=== PATIENT | male | born 1945 | race Caucasian/White ===

== ENCOUNTER 2017-12-02 13:56 | Emergency (ER) | payer OTHER, SELFPAY ==
[2017-12-02 13:57] VITALS: BP 193/102; PULSE 85; RESP 14; TEMP 36.9; O2SAT 98; BMI 21.7
--- NOTE | 2017-12-02 14:23 | ED.DCSUM_ITS ---
- ER Visit Summary Date of Service: 12/02/17 Chief Complaint: [] Lumbar back pain shooting into left leg history of recent spinal surgery September 2017 History of Present Illness: The patient is a 72 [address] lumbar back pain with left lower extremity sciatica for some time, had recent lumbar back surgery as above he states he improved with the pain did not go away completely as a result he has had multiple lumbar spine injections by pain management he has been on Percocet in the past. Indicates his back pain flared up again on Sunday with radiation typical of what he had in the past to the left lower leg he is having no bowel bladder complaints or symptoms to the right leg he is able to walk but has discomfort. 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 chest unremarkable abdomen soft nontender he has lumbar spine incisions intact he has pain to the left paralumbar back that goes down the sciatic area into his left lower leg he has full range of motion to the left lower leg normal dorsi and plantarflexion normal flexion extension of the great toe normal sensation in his right lower extremities unremarkable there is no signs of cauda equina, he denies bowel bladder complaints or difficulties he is otherwise feeling baseline with good health except for the pain as above Test Results: [] Emergency Department Course and Treatment: [] A long conversation with him he is currently under the care of his surgeon and pain management he is scheduled for additional tests including MRI tomorrow and follow up with these physicians he simply wants something to control his pain. He wants to go home families in room with him, he is treated with Toradol IM morphine IM Zofran orally, we will refill the Percocet No. 8 tablets for short course until he can see his pain management physicians he will return for change in symptoms he again agrees with this plan Treatment Plan: [] Disposition: [] Home stable Impression: [] Acute recurrent sciatica type radicular pain to the left lower extremity, status post lumbar back surgery This note was generated with Dragon dictation software. It may contain incorrect words, spelling, and punctuation that were not noted in review of the chart prior to signing ED Disposition - Plan for ED Patient: Chief Complaint: Back Referrals: Olena Gabriel, MICHELLE-C [Primary Care Provider] -
--- NOTE | 2017-12-02 14:25 | DCINST.ED_ITS ---
ED Disposition - Plan for ED Patient: Chief Complaint: Back Instructions: ED Sprain Strain Lumbar Prescriptions: Oxycodone HCl/Acetaminophen [Percocet 5/325] 1 tab PO Q6H PRN PRN #12 tab PRN Reason: Pain Referrals: Olena Gabriel, INTERNAL CONTROLS SPECIALIST-C [Primary Care Provider] -
[2017-12-02] MEDS: Ketorolac 60 MG/2 ML Vial IM (14:30)
[2017-12-02] MEDS: Ondansetron ODT 4 MG Tablet PO (14:30)
[2017-12-02] MEDS: morphine 10 MG/ML Syringe 8 MG IM (14:30)
[2017-12-02 15:23] VITALS: BP 152/85; PULSE 77; RESP 17; O2SAT 99
== END 2017-12-02 15:24 | disposition home or self-care (01) ==
PROVIDERS: Emergency Provider Emergency Medicine; Family Provider Nurse Practitioner; PCP Nurse Practitioner
DX: M54.42 Lumbago with sciatica, left side (principal); I10 Essential (primary) hypertension; Z79.899 Other long term (current) drug therapy
CPT/HCPCS: 96372; 99282

== ENCOUNTER → 2017-12-03 10:50 | Outpatient (CLI) | payer OTHER, SELFPAY ==
--- NOTE | 2017-12-03 11:55 | MRI_ITS ---
STUDY: MRI LUMBAR SPINE WITHOUT CONTRAST REASON FOR EXAM: Male, 72 years old. BACK PAIN, left leg pain, hx prev surgery 09/14/17. TECHNIQUE: Standardized fat and water weighted pulse sequences were obtained in the sagittal and axial planes. COMPARISON: None FINDINGS: T12-L1: Normal endplates. Normal disc height, hydration and morphology. Normal bilateral facet joints. Normal central canal and bilateral lateral recesses. Normal bilateral intervertebral neural foramina. Normal lumbar lordosis. There is no substantial scoliosis. Normal conus medullaris that terminates at the L1 L1-2: There is minimal disc space narrowing and endplate spondylosis. There is no significant disc herniation, spinal canal or foramina stenosis. L2-3: There is minimal disc space narrowing and endplate spondylosis. There is no significant disc herniation, spinal canal or foramina stenosis. There is mild facet arthropathy L3-4: There is minimal disc space narrowing and endplate spondylosis. There is no significant disc herniation, spinal canal or foramina stenosis. L4-5: There is minimal disc space narrowing and intestinalis. There is a mild disc bulge with posterior annular fissure without significant central canal or foraminal stenosis. L5-S1: There is mild disc space narrowing and end plate spondylosis. There is left paracentral extrusion which measures approximately 1.0 x 0.5 x 1.4 cm with severe left lateral recess narrowing and posterior displacement of the traversing S1 nerve root. There is no significant central canal stenosis. There is minimal bilateral foraminal stenosis. There is minimal facet arthropathy. Normal visualized sacral ala. Normal visualized paraspinous soft tissue structures. MRI/Spine Lumbar (Routine) IMPRESSION: L5/S1: Left disc extrusion with severe left lateral recess narrowing and potential impingement of the left S1 nerve root. Electronically Signed: Gustavo Zarate MD at 12:35 EDT Tel , Service support ,
== END ==
PROVIDERS: Family Provider Nurse Practitioner; PCP Nurse Practitioner; Visit Provider Anesthesiology Pain Medicine
DX: M54.9 Dorsalgia, unspecified (principal); M79.606 Pain in leg, unspecified
CPT/HCPCS: 72148

== ENCOUNTER → 2018-10-04 21:43 | Outpatient (CLI) | payer OTHER, SELFPAY ==
[2018-10-04 16:53] VITALS: BMI 23.5
[2018-10-04 21:57] LABS: Basophil# 0.04 X10^3/uL; Basophil% 0.5 % (0-1); Eosinophil# 0.33 X10^3/uL; Eosinophils% 4.2 % (0-5); Hematocrit 41.5 % (40-54); Hemoglobin 13.7 g/dl (13.0-16.5); Lymphocyte % 24.2 % (19-41); Mean Corpuscular Hgb 29.7 pg (27.0-32.0); Mean Platelet Vol. 10.4 fl (6.2-12.0); Monocyte% 7.6 % (0-10); Neutrophil # 4.96 X10^3/uL (2.7-7.7); Neutrophil % 63.2 % (47-70); Platelet Count 244 K/mm3 (150-450); RBC Distribution Width CV 14.7 % (11.6-14.6); RBC Distribution Width SD 48.1 fl (35.1-43.9); Red Blood Count 4.61 M/mm3 (4.6-6.2); White Blood Count 7.9 K/mm3 (4.4-11.0)
[2018-10-04 22:02] LABS: POSITIVE COUNT NO; POSITIVE DIFFERENTIAL NO; POSITIVE MORPHOLOGY NO
[2018-10-04 22:10] LABS: AST(SGOT) 15 U/L (15-37); Alanine Aminotransfer ALT/SGPT 18 U/L (16-61); Albumin, Serum 4.1 g/dL (3.2-5.0); Alkaline Phosphatase 126 U/L (45-117); Anion Gap 9 (5-15); BUN 32 mg/dL (7-18); BUN/Creat Ratio 16.5 RATIO (10-20); Calcium,Total 9.5 mg/dL (8.5-10.1); Chloride 103 mmol/L (98-107); Cholesterol 240 mg/dL (200); Creatinine, Serum 1.94 mg/dL (0.70-1.30); EST Glomerular Filtration Rate 36 mL/min (>60); Est Glom Filt Rate - Afr Amer 44 mL/min (>60); Globulin 4.1 g/dL (2.2-4.2); Glucose 108 mg/dL (74-106); High Density Lipoprotein 54 mg/dL; Magnesium 2.1 mg/dL (1.6-2.6); PSA,Total - Annual Screen 5.45 ng/mL (0.00-4.00); Potassium 4.1 mmol/L (3.5-5.1); Protein, Total 8.2 g/dL (6.4-8.2); Sodium Level 138 mmol/L (136-145); Triglycerides 203 mg/dL; Very Low Density Lipoprotein 41 mg/dL (5-40)
== END ==
PROVIDERS: Family Provider Nurse Practitioner; PCP Nurse Practitioner; Referring Provider Nurse Practitioner; Visit Provider Nurse Practitioner
DX: I10 Essential (primary) hypertension (principal); R35.0 Frequency of micturition; F41.9 Anxiety disorder, unspecified
CPT/HCPCS: 80053; 80061; 83735; 84153; 85025; G0103

== ENCOUNTER → 2018-11-13 21:56 | Outpatient (CLI) | payer OTHER, SELFPAY ==
[2018-10-30 15:26] VITALS: BMI 23.8
[2018-11-13 22:34] LABS: PSA,Total- Diagnostic 6.08 ng/mL (0.0-4.0)
== END ==
PROVIDERS: Family Provider Nurse Practitioner; PCP Nurse Practitioner; Referring Provider Nurse Practitioner; Visit Provider Nurse Practitioner
DX: I10 Essential (primary) hypertension (principal)
CPT/HCPCS: 84153

== ENCOUNTER → 2019-01-23 12:47 | Outpatient (CLI) | payer OTHER, SELFPAY ==
[2019-01-07 16:10] VITALS: BMI 23.8
--- NOTE | 2019-01-23 12:50 | ART_ITS ---
Reason For Study: CLAUDICATION Procedure A bilateral lower extremity continuous wave Doppler with analog waveform analysis,segmental pressures,and ankle brachial indexes without exercise. CRITICAL FINDING CALLED TO DR SUAREZ AT 1:50 P.M. Left Segmental Pressures Left brachial= 149mmHg. Left thigh = 157mmHg. Left calf = 123mmHg. Left posterior tibial artery = 121mmHg. Left dorsalis pedis artery = 102mmHg. Left digit = 74 mmHg. The left dorsalis pedis waveforms are monophasic. The left posterior tibial artery waveforms are monophasic. Right Segmental Pressures Right brachial= 147mmHg. Right thigh = 111mmHg. Right calf = 83mmHg. Right posterior tibial artery = 60mmHg. Right dorsalis pedis artery = 60mmHg. The right dorsalis pedis waveforms are monophasic. The right posterior tibial artery waveforms are monophasic. Indices The right ankle brachial index by the dorsalis pedis is .4. The right ankle brachial index by the posterior tibial artery is .4. Rt DPI unobtainable. The left ankle brachial index by the dorsalis pedis is .68. The left ankle brachial index by the posterior tibial artery is .81. The left digital- brachial index is .5. Interpretation Summary Monophasic Doppler waveforms are noted at ankle level bilaterally. Pulse-volume recording waveform amplitudes are markedly diminished at digital level bilaterally. The resting right ankle-brachial index is severely diminished. The resting left ankle-brachial index is [id number] diminished. The right digital-brachial index could not be determined. The left digital-brachial index is moderately diminished. There is evidence of severe arterial occlusive disease in the right lower extremity. There is evidence of moderate arterial occlusive disease in the left lower extremity. The occlusive disease appears to be multi-segmental bilaterally. Ordering Physician: Yash Suarez Referring Physician: GAIL LANE Performed By: Anali Messina, RDCS, RVT
== END ==
PROVIDERS: Family Provider Nurse Practitioner; PCP Nurse Practitioner; Referring Provider Podiatrist Foot & Ankle Surgery; Visit Provider Podiatrist Foot & Ankle Surgery
DX: I73.9 Peripheral vascular disease, unspecified (principal)
CPT/HCPCS: 93923

== ENCOUNTER → 2019-02-13 08:50 | Outpatient (CLI) | payer OTHER, SELFPAY ==
[2019-01-07 16:10] VITALS: BMI 23.8
--- NOTE | 2019-02-13 08:52 | ADUL_ITS ---
Reason For Study: Atherosclerosis Right Velocities Ext. Iliac Artery, dist = 112.5 cm./sec. Common Femoral Artery, mid = 81.8 cm./sec. Supf Femoral Artery, prox = 45.9 cm./sec. Supf Femoral Artery, mid = 361.4 cm./sec. No flow SFA dist. Profunda Femoral Artery = 270.2 cm./sec. Popliteal Artery, prox. = 24.5 cm./sec. Popliteal Artery, mid = 19.4 cm./sec. Popliteal Artery, dist = 18.9 cm./sec. Post. Tibial Artery, prox = 87.5 cm./sec. Post. Tibial Artery, mid = 26 cm./sec. Post. Tibial Artery, dist = 26.5 cm./sec. Peroneal Artery, prox = 13.1 cm./sec. Peroneal Artery, mid = 16.3 cm./sec. Peroneal Artery,dist = 9.6 cm./sec. Ant. Tibial Artery, prox = 28.5 cm./sec. Ant. Tibial Artery, mid = 25 cm./sec. Ant. Tibial Artery, dist = 10.9 cm./sec. Procedure Exam performed in department. Interpretation Summary 1. Right SFA occludded distally with triphasic flow above and monophasic from popliteal down. Ordering Physician: Ethan Covington Referring Physician: Olena Gabriel Performed By: Yazmin Gustafson RVT
--- NOTE | 2019-02-13 08:53 | CDU_ITS ---
Reason For Study: Bruit Rt. Velocities/BP Lt. Velocities/BP Prox CCA 83.9/17.3 cm/sec. Prox CCA 84.9/14.6 cm/sec. Mid CCA 66.2/16.8 cm/sec. Mid CCA 76.1/20.1 cm/sec. Dist CCA 80.5/19 cm/sec. Dist CCA 61.9/14.6 cm/sec. Prox ICA 72.9/25.6 cm/sec. Prox ICA 67.3/17.9 cm/sec. Mid ICA 98.6/32.3 cm/sec. Mid ICA 104.8/29.8 cm/sec. Dist ICA 117.4/38.9 cm/sec. Dist ICA 103.5/33.5 cm/sec. Rt. ICA/CCA = 1.5. Lt. ICA/CCA = 1.4. Prox ECA 124.8/6 cm/sec. Prox ECA 97.4/7.7 cm/sec. Rt. Vert. 36.2/12.6 cm/sec. Lt Vert. Prox 363.2/99.9 cm/sec. Lt Vert. Mid 52.6/18.6 cm/sec. Right Extracranial There is homogeneous, smooth atherosclerotic plaque noted in the right common carotid artery. There is heterogeneous, irregular atherosclerotic plaque noted in the right internal carotid artery. There is intimal thickening but no significant atherosclerotic plaque noted in the right external carotid artery. Antegrade flow is noted in the right vertebral artery. Left Extracranial There is homogeneous, smooth atherosclerotic plaque noted in the left common carotid artery. There is heterogeneous, smooth atherosclerotic plaque noted in the left internal carotid artery. There is intimal thickening but no significant atherosclerotic plaque noted in the left external carotid artery. Antegrade flow is noted in the left vertebral artery. Procedure Carotid Duplex 00061. Exam performed in department. Interpretation Summary Mild (<50%) stenosis right extracranial internal carotid. Mild (<50%) stenosis left extracranial internal carotid. Flow within the vertebral arteries is antegrade bilaterally. Left vertebral with proximal stenosis. Ordering Physician: Ethan Covington Referring Physician: Olena Gabriel Performed By: Yazmin Gustafson RVT
--- NOTE | 2019-02-13 08:53 | AAVD_ITS ---
Reason For Study: Aortic Atherosclerosis Aorta Measurements Aorta Doppler Measurements Proximal aorta measures1.28 x 1.30cm. in cross- Peak systolic flow velocities within the proximal sectional axis. aorta measure 60.1 cm/sec. Proximal aorta measures1.29cm. in longitudinal Peak systolic flow velocities within the mid aorta axis. measure 70.5 cm/sec. Mid aorta measures1.37 x 1.36cm. in cross- Peak systolic flow velocities within the distal sectional axis. aorta measure 49.7 cm/sec. Mid aorta measures1.36cm. in longitudinal axis. Distal aorta measures1.16 x 1.16cm. in cross- sectional axis. Distal aorta measures1.18cm. in longitudinal axis. Left Iliac Artery Left iliac artery measures 0.93 x 0.93 cm. in the cross-sectional axis. Left iliac artery measures 0.78 cm. in the longitudinal axis. Peak systolic velocity in the left iliac artery measures 122.1 cm/sec. Right Iliac Artery Right iliac artery measures 0.63 x 0.70 cm. in the cross-sectional axis. Right iliac artery measures 0.68 cm. in the longitudinal axis. Peak systolic velocity in the right iliac artery measures 70.8 cm/sec. Procedure Aorta IVC Iliac vasculature or bypass grafts 77690. Exam performed in department. Interpretation Summary 1. No aortoiliac stenosis or aneurysm. Aorta between 12-13mm. Ordering Physician: Ethan Covington Referring Physician: Olena Gabriel Performed By: Yazmin Gustafson RVT
== END ==
PROVIDERS: Family Provider Nurse Practitioner; PCP Nurse Practitioner; Referring Provider Surgery Vascular Surgery; Visit Provider Surgery Vascular Surgery
DX: I70.213 Atherosclerosis of native arteries of extremities with intermittent claudication, bilateral legs (principal); I70.0 Atherosclerosis of aorta; R09.89 Other specified symptoms and signs involving the circulatory and respiratory systems
CPT/HCPCS: 93880; 93926; 93978

== ENCOUNTER 2020-07-16 21:01 | Emergency (ER) | payer MEDICARE, BC, SELFPAY ==
[2020-07-14 18:00] VITALS: BMI 26.1
[2020-07-16 21:02] VITALS: BP 214/101; PULSE 78; RESP 16; TEMP 37.1; O2SAT 97; BMI 25.5
--- NOTE | 2020-07-16 21:31 | ED.DCSUM_ITS ---
History of Present Illness Chief Complaint: GI Bleed Informant: Patient Onset: Days - 3 days Context: Gradual Onset Current Severity: Mild Maximum Severity: Mild Narrative: Patient presents with 3 days of dark black tarry stool. He denies any abdominal pain. He was working on his truck today and states when he stood up he did feel lightheaded and dizzy for a brief time. Patient states he has had 1 prior colonoscopy in the 1960s. No family history of colon cancer or similar. Patient does not take anticoagulants. - Past Medical History (1) Anxiety Status: Chronic (2) CKD (chronic kidney disease) Status: Chronic (3) Diabetes Status: Chronic (4) Hypertension Status: Chronic Past Medical History - Allergies and Home Meds Allergies/Adverse Reactions: Allergies lisinopril Allergy (Severe, Verified 07/16/20 21:10) raspy voice and cough Penicillins Allergy (Verified 07/16/20 21:10) Anaphylaxis Sulfa (Sulfonamide Antibiotics) Allergy (Verified 07/16/20 21:10) Anaphylaxis levofloxacin [From Levaquin] Adverse Reaction (Verified 07/16/20 21:10) Upset Stomach Primary Care Physician: Olena Gabriel NP, CERTIFIED WELLNESS PROGRAM COORDINATOR-C [Primary Care Provider] - Prior records reviewed: Yes Surgical History: cholecystectomy, herniorrhaphy Lives: Spouse/ Significant Other Smoking Status: Former smoker - Family History Maternal Family History: Family History (Last Reviewed 07/14/20 @ 18:53 by Olena Gabriel NP, CERTIFIED WELLNESS PROGRAM COORDINATOR-C) Other CVA (cerebral vascular accident) Diabetes Heart disease High cholesterol Hypertension Family History: Reports: Diabetes Review of Systems General: Denies: Chills, Fever Eyes: Denies: Visual changes - bilaterally ENT: Denies: Bilateral ear pain Cardiovascular: Denies: Chest pain Respiratory: Denies: Dyspnea, Cough Gastrointestinal: Denies: Abdominal pain, Nausea, Vomiting Genitourinary: Denies: Dysuria Musculoskeletal: Denies: Extremity Pain Skin: Denies: Rash Hematologic: Denies: Easy bruising, Easy bleeding Allergy: Denies: Uticaria Physical Exam Vital Signs/Narrative: Vital Signs Temp Pulse Resp BP Pulse Ox 07/16/20 21:02 98.8 F 78 16 214/101 H 97 Inital Vital Signs reviewed: Yes General: Well nourished, Well developed Head: Normocephalic ENT: Moist mucous membranes Neck: Supple Cardiovascular: Regular rate, Regular rhythm Respiratory: No distress, CTA bilaterally Abdomen: Soft, Nontender Rectal: Nontender, - - Playground stool noted on gloved finger Extremities: Nontender Skin: Normal color Neurological: Alert, Oriented x3 Psychological: Normal affect Diagnostic/Tx/Re-eval 07/16/20 21:30 Stool Stool Occult Blood (JASMINA) - Final Laboratory Results 07/16/20 07/16/20 07/16/20 21:10 21:10 21:10 WBC 8.6 RBC 4.43 L Hgb 13.2 Hct 40.5 MCV 91.4 MCH 29.8 MCHC 32.6 RDW Std Deviation 47.5 H RDW Coeff of Keith 14.1 Plt Count 223 MPV 10.6 Immature Gran % (Auto) 0.200 Neut % (Auto) 67.7 Lymph % (Auto) 20.4 Meigs % (Auto) 7.9 Eos % (Auto) 3.2 Baso % (Auto) 0.6 Absolute Neuts (auto) 5.8 Absolute Lymphs (auto) 1.75 Nucleated RBC % 0 PT 12.3 INR 1.0 APTT 28.9 Sodium 139 Potassium 5.0 Chloride 107 Carbon Dioxide 24.0 Anion Gap 8 BUN 40 H Creatinine 2.49 H Estim Creat Clear Calc 27.28 Est GFR (MDRD) Af Amer 33 L Est GFR (MDRD) Non-Af 27 L BUN/Creatinine Ratio 16.1 Glucose 130 H Calcium 9.1 Total Bilirubin 0.40 Direct Bilirubin 0.06 AST 18 ALT 18 Alkaline Phosphatase 116 Total Protein 7.9 Albumin 3.8 Globulin 4.1 - Medical Decision Making Blood work is reviewed and unremarkable. Last labs to compare to are from October 2018. Renal function is slightly worsened. Hemoglobin is stable. Stool guaiac tonight returns negative. On repeat evaluation patient is resting comfortably. Test results are discussed with him. He now tells me that he was taking Pepto-Bismol and I advised him that this may be why his stools are appearing black in color. He will take Prilosec [id number] and monitor his symptoms. I did give him return instructions to come back to the ER for. He will follow-up with his family physician and I did recommend following with surgery for an outpatient colonoscopy as he has not had one in quite some time. ED Disposition - Plan for ED Patient: Disposition: Home or Assisted Living Diagnosis: Discoloration of stool Instructions: ED Upper GI Bleeding (Stable) Referrals: Olena Gabriel CERTIFIED WELLNESS PROGRAM COORDINATOR, CERTIFIED WELLNESS PROGRAM COORDINATOR-C [Primary Care Provider] - 1 Week Additional Instructions: As discussed, your blood work is stable when compared to labs of 2019. Test under stool is negative for blood. The Pepto-Bismol you been taking may be the cause of the dark discoloration of your stool. I do recommend taking Prilosec and monitoring her symptoms. I do recommend following up with your family physician for a referral for colonoscopy as well. Please return to ER for further symptoms or any concerns.
--- NOTE | 2020-07-16 21:31 | EKG12_ITS ---
Test Reason : IRREG. HR Blood Pressure : / mmHG Vent. Rate : 071 BPM Atrial Rate : 071 BPM P-R Int : 122 ms QRS Dur : 094 ms QT Int : 398 ms P-R-T Axes : -28 051 068 degrees QTc Int : 432 ms Normal sinus rhythm with sinus arrhythmia Normal ECG Confirmed by MERE IRBY, CINDI ([id number]), editor at large YAMIL HOFFMANN ([id number]) on 07/21/2020 9:23:37 AM Referred By: DUONG Confirmed By:CINDI SEVERINO MD
[2020-07-16 22:02] LABS: Absolute Lymphocyte Count 1.75 X10^3/uL (0.83-4.51); Absolute Neutrophil Count 5.8 X10^3/uL (2.0-7.7); Basophil# 0.05 X10^3/uL; Basophil% 0.6 % (0-1); Eosinophil# 0.27 X10^3/uL; Eosinophils% 3.2 % (0-5); Hematocrit 40.5 % (40-54); Hemoglobin 13.2 g/dL (13.0-16.5); Lymphocyte # 1.75 X10^3/ul (4.0); Lymphocyte % 20.4 % (19-41); Mean Corp Hgb Conc 32.6 g/dL (32-36); Mean Corpuscular Hgb 29.8 pg (27.0-32.0); Mean Corpuscular Volume 91.4 fL (80-94); Mean Platelet Vol. 10.6 fl (6.2-12.0); Monocyte# 0.68 X10^3/uL; Monocyte% 7.9 % (0-10); NRBC Flagged by Analyzer 0 % (0-5); Neutrophil % 67.7 % (47-70); Platelet Count 223 K/mm3 (150-450); RBC Distribution Width CV 14.1 % (11.6-14.6); RBC Distribution Width SD 47.5 fl (35.1-43.9); Red Blood Count 4.43 M/mm3 (4.6-6.2); White Blood Count 8.6 K/mm3 (4.4-11.0)
[2020-07-16 22:17] VITALS: BP 150/78; PULSE 68; RESP 13; O2SAT 98
[2020-07-16 22:19] LABS: AST(SGOT) 18 U/L (15-37); Alanine Aminotransfer ALT/SGPT 18 U/L (16-61); Albumin, Serum 3.8 g/dL (3.2-5.0); Alkaline Phosphatase 116 U/L (45-117); Anion Gap 8 (5-15); BUN 40 mg/dL (7-18); BUN/Creat Ratio 16.1 RATIO (10-20); Bilirubin, Direct 0.06 mg/dL (0.00-0.30); Calcium,Total 9.1 mg/dL (8.5-10.1); Chloride 107 mmol/L (98-107); Creatinine, Serum 2.49 mg/dL (0.70-1.30); EST Glomerular Filtration Rate 27 mL/min (>60); Est Glom Filt Rate - Afr Amer 33 mL/min (>60); Estimated Creatinine Clearance 27.28 ml/min; Globulin 4.1 g/dL (2.2-4.2); Glucose 130 mg/dL (74-106); Protein, Total 7.9 g/dL (6.4-8.2); Sodium Level 139 mmol/L (136-145)
[2020-07-16 22:22] LABS: Partial Thromboplast Time 28.9 Seconds (24.1-36.2); Prothrombin Time (Protime)PT. 12.3 SECONDS (11.7-14.9)
[2020-07-16 23:29] VITALS: BP 146/79; PULSE 62; RESP 16; O2SAT 96
== END 2020-07-16 23:50 | disposition home or self-care (01) ==
PROVIDERS: Emergency Provider Emergency Medicine; PCP Nurse Practitioner
DX: R19.5 Other fecal abnormalities (principal); I12.9 Hypertensive chronic kidney disease with stage 1 through stage 4 chronic kidney disease, or unspecified chronic kidney disease; E11.22 Type 2 diabetes mellitus with diabetic chronic kidney disease; N18.9 Chronic kidney disease, unspecified; F41.9 Anxiety disorder, unspecified; Z79.84 Long term (current) use of oral hypoglycemic drugs; Z79.899 Other long term (current) drug therapy; Z87.891 Personal history of nicotine dependence
CPT/HCPCS: 80048; 80076; 82274; 85025; 85610; 85730; 93005; 99285; A4216

== ENCOUNTER → 2020-07-20 | Outpatient (CLI) | payer MEDICARE, BC, SELFPAY ==
[2020-07-20 15:05] VITALS: BMI 25.8
[2020-07-20 22:13] LABS: AST(SGOT) 11 U/L (15-37); Absolute Lymphocyte Count 1.38 X10^3/uL (0.83-4.51); Absolute Neutrophil Count 4.3 X10^3/uL (2.0-7.7); Alanine Aminotransfer ALT/SGPT 17 U/L (16-61); Albumin, Serum 3.8 g/dL (3.2-5.0); Alkaline Phosphatase 118 U/L (45-117); Anion Gap 6 (5-15); BUN 35 mg/dL (7-18); BUN/Creat Ratio 14.1 RATIO (10-20); Basophil# 0.07 X10^3/uL; Calcium,Total 9.3 mg/dL (8.5-10.1); Chloride 106 mmol/L (98-107); Creatinine, Serum 2.49 mg/dL (0.70-1.30); EST Glomerular Filtration Rate 27 mL/min (>60); Eosinophil# 0.18 X10^3/uL; Eosinophils% 2.7 % (0-5); Est Glom Filt Rate - Afr Amer 33 mL/min (>60); Glucose 131 mg/dL (74-106); Hematocrit 40.6 % (40-54); Hemoglobin 12.9 g/dL (13.0-16.5); Lymphocyte # 1.38 X10^3/ul (4.0); Lymphocyte % 20.7 % (19-41); Mean Corp Hgb Conc 31.8 g/dL (32-36); Mean Corpuscular Hgb 29.6 pg (27.0-32.0); Mean Corpuscular Volume 93.1 fL (80-94); Mean Platelet Vol. 10.7 fl (6.2-12.0); Monocyte# 0.71 X10^3/uL; Monocyte% 10.6 % (0-10); NRBC Flagged by Analyzer 0 % (0-5); Neutrophil # 4.33 X10^3/uL (2.7-7.7); Neutrophil % 64.9 % (47-70); PSA,Total- Diagnostic 6.69 ng/mL (0.0-4.0); Platelet Count 240 K/mm3 (150-450); Potassium 4.6 mmol/L (3.5-5.1); Protein, Total 7.8 g/dL (6.4-8.2); RBC Distribution Width CV 14.1 % (11.6-14.6); RBC Distribution Width SD 48.3 fl (35.1-43.9); Red Blood Count 4.36 M/mm3 (4.6-6.2); Sodium Level 140 mmol/L (136-145); White Blood Count 6.7 K/mm3 (4.4-11.0)
[2020-07-20 22:39] LABS: Hemoglobin A1c 6.7 % (3.8-5.6)
== END | disposition home or self-care (01) ==
PROVIDERS: PCP Nurse Practitioner; Visit Provider Nurse Practitioner
DX: I10 Essential (primary) hypertension (principal); E11.9 Type 2 diabetes mellitus without complications; R97.20 Elevated prostate specific antigen [PSA]
CPT/HCPCS: 80053; 83036; 84153; 85025

== ENCOUNTER 2020-08-13 08:03 | Day surgery (SDC) | payer MEDICARE, BC, SELFPAY ==
[2020-07-20 15:05] VITALS: BMI 25.8
[2020-08-13] VITALS (7 sets, daily range): BP systolic 94–152; BP diastolic 47–81; PULSE 56–78; RESP 14–16; TEMP 36–36.2; O2SAT 95–97; BMI 24.3
[2020-08-13] MEDS: Lactated Ringers 1,000 ML 100 ML IV (09:00)
--- NOTE | 2020-08-13 09:00 | HP.PCM_ITS ---
Problem List (1) Black tarry stools Status: Acute Comment: was told it was due to taking pepto History and Physical Date of Admission: 08/13/20 Intake Intake Visit Reasons: Telephone/C-SCOPE Chief Complaint: cscope consult Rfid Technician Required: No Is patient in pain?: No Allergies lisinopril Allergy (Severe, Verified 07/27/20 14:02) raspy voice and cough Penicillins Allergy (Verified 07/27/20 14:02) Anaphylaxis Sulfa (Sulfonamide Antibiotics) Allergy (Verified 07/27/20 14:02) Anaphylaxis levofloxacin [From Levaquin] Adverse Reaction (Verified 07/27/20 14:02) Upset Stomach Medications amlodipine 5 mg tablet 5 mg PO DAILY #90 tab 08/19/19 [Rx Confirmed 07/27/20] escitalopram oxalate 10 mg tablet 10 mg PO DAILY #90 tab 08/19/19 [Rx Confirmed 07/27/20] irbesartan 300 mg tablet 300 mg PO DAILY #90 tab 08/19/19 [Rx Confirmed 07/27/20] tamsulosin 0.4 mg capsule 0.4 mg PO DAILY #90 cap 08/19/19 [Rx Confirmed 07/27/20] gabapentin 100 mg capsule 200 mg PO .qid PRN 30 Days #240 cap 02/05/20 [Rx Confirmed 07/27/20] meclizine 12.5 mg tablet 12.5 mg PO TID PRN #30 tab 07/14/20 [Rx Confirmed 07/27/20] empagliflozin 25 mg tablet 25 mg PO DAILY 07/27/20 [History Confirmed 07/27/20] PFSH Medical History (Updated 07/27/20 @ 14:26 by Sue Tovar) Depression (Acute) Black tarry stools (Acute) Diarrhea (Acute) Abdominal pain (Acute) 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) Fatigue (Acute) Diabetes type 2, uncontrolled (Acute) Osteoarthritis (Acute) Kidney stones (Acute) Macular degeneration (Acute) Anxiety disorder (Acute) Pseudobulbar affect (Acute) L eye torn retina (Acute) Hypertension (Chronic) Mini stroke (Inactive) Surgical History (Updated 07/27/20 @ 14:24 by Sue Tovar) Hx laparoscopic cholecystectomy (Acute) Previous back surgery (Acute) Family History (Updated 12/22/20 @ 14:28 by Sue Tovar) Mother Diabetes Heart disease Hypertension CVA (cerebral vascular accident) Sister CVA (cerebral vascular accident) Heart disease Other High cholesterol Social History (Updated 07/27/20 @ 14:[address] Neo Vallejo MD) Smoking Status: Former smoker HPI HPI Chief Complaint: cscope consult Details: Patient was informed that this visit will be billed to patient. This visit was conducted during COVID- pandemic. JOSE JOHN, is a 75 M who was contacted for phone visit for black stools and abdominal pain. The patient reports that he has been having black tarry stools for a few weeks. He went to the emergency room they told him it was likely due to his Pepto-Bismol intake. The patient is also been having right upper quadrant pain especially with eating. The patient reports he is not had a screening colonoscopy in over 10 years. The patient does not have any blood in his stool except for the black tarry stools. ROS Const Constitutional: Positive for fatigue and weight change; no headache(s) or snoring Eyes Eyes: Positive for other (macular ) ENT ENT: Positive for difficulty swallowing; no abnormal hearing, ear pain, ear discharge, ear pressure, hearing loss, tinnitus, dizziness/vertigo, balance problems, nosebleed/epistaxis, nasal congestion, nasal obstruction, nose pain, sinus pressure, sinus pain, nasal discharge, post nasal drip, headache(s), facial pain, dental pain, dry mouth, bad breath, hoarseness, lip swelling, mouth lesions, mouth pain, neck pain, sore throat, tongue swelling, throat swelling or other Resp Respiratory: No cough, change in phlegm color, chest congestion, excessive phlegm production, hemoptysis, pain on inspiration, shortness of breath, pain with cough, snoring, stridor, wheezing or other Gastro GI: Positive for abdominal pain, diarrhea, difficulty swallowing and Black,tarry stools; no belching, bloating, change in bowel habits, change in stool character, coffee ground emesis, constipation, cramping, heartburn, feeling full early, excessive flatus, incontinent of stools, Vomiting blood/hematemesis, blood in stool, loose stools, nausea/dyspepsia, pain with swallowing, vomiting or other Musc Musculoskeletal: Positive for numbness and tingling; no abnormal walking, joint pain, back pain, deformity, joint swelling, limited range of motion, loss of height, muscle cramps, muscle weakness, decreased muscle mass, body aches, neck pain, radiating pain into limb, stiffness or other Neuro Neurology: Positive for numbness and tingling; no abnormal walking, abnormal hearing or headache(s) Psych Psychiatric: Positive for anxiety, Positive for depression Endo Endocrine: Positive for fatigue; no other Aller/Imm Allergy/Immunologic: No lip swelling, throat swelling, tongue swelling or wheezing Exam Const General: cooperative, comfortable Resp Effort & Inspection: normal respiratory effort Cardio Rate: regular rate Rhythm: regular rhythm GI Inspection: normal to inspection, non-distended Palpation: soft, nontender Musc Musculoskeletal: No muscle weakness Details: Details:: Exam was limited due to phone visit with no video. Quality Reporting Medication Reconciliation ([facility] 68) amlodipine 5 mg PO DAILY empagliflozin (Jardiance) 25 mg PO DAILY escitalopram oxalate (Lexapro) 10 mg PO DAILY gabapentin 200 mg (2 x 100 mg) PO .qid 30 days PRN irbesartan 300 mg PO DAILY meclizine 12.5 mg PO TID PRN tamsulosin 0.4 mg PO DAILY Tobacco Screening (CMS 138) Smoking Status: Former smoker Assessment & Plan Problems 1. Black tarry stools K92.1 was told it was due to taking pepto 2. RUQ pain R10.11 3. Screen for colon cancer Z12.11 Plan The patient has been having 2 to 3 weeks of black tarry stools. He says they have been improving since stopping Pepto-Bismol. He still having right upper quadrant pain especially with eating. The patient was also referred for screening colonoscopy. His last colonoscopy was over 10 years ago. I will plan on EGD and colonoscopy. . I explained endoscopy in detail to the patient. I explained the risks including but not limited to stroke or heart attack with anesthesia, perforation of the GI tract, bleeding, infection. I explained that any of these could necessitate further emergency surgery. The patient understands and all questions were answered sufficiently. The patient wishes to proceed with procedure. We discussed the current risks associated with COVID-19. While it is understood that there is a community spread of COVID-19, the risk of fabi COVID-19 while at [facility] ([facility]) is very low; however, the risk cannot be completely mitigated because of the community spread of the disease. We discussed in detail the risk of exposure to and/or potential harm posed by the COVID-19 virus with having a surgery/procedure at this time versus the risk of delaying the surgery/procedure. It is not possible to know either the risk of delaying the surgery or procedure or chance of getting an infection with perfect accuracy, but a joint decision was made to proceed at this time with the scheduled surgery/procedure as indicated on the consent form. Patient was notified that we will need to comply with any screening or testing [facility] wishes to perform or that surgery may be delayed for any positive results. Neo Vallejo MD Pager: [facility] [address] [place] [address] Office: I have re-examined the patient. There are no clinical changes since date of exam.
[2020-08-13 09:05] LABS: Bedside Glucose 289 mg/dL (70-110)
--- NOTE | 2020-08-13 09:15 | IMM_PTH ---
PATIENT: JOSE JOHN LOC: EN U#:[id number] AGE/SX: 75/M ROOM: RE08/13/[address]: Dr. Neo Vallejo MD : 1945 BED: DIS: 08/13/2020 SPEC #: [id number] RECD: 08/13/20 12:42 STATUS: JAVID REChi #: [id number] FAREED: 08/13/20 09:[address]: Neo Vallejo DEPT: IMMUNOHISTOCHEMISTRY RECD BY: Tiffanie Adrian ENTERED: 08/13/20 12:42 SP TYPE: IMMUNO OTHR DR: Olena Gabriel, CUSTOMER INSIGHT ANALYST-C Tissues: A - Stomach, NOS Procedures: H Pylori (initial) PHYSICIAN & INSTITUTION [place] [phone] SPECIMEN INFORMATION: Tissue Source: A - Gastric ulcer biopsy Clinical Info: Black, tarry stools; RUQ pain; screening Specimen Number: [id number] CPT code: 82971 METHODOLOGY: Deparaffinized sections of prefer/formalin-fixed tissue or PAP/DQ stained slides are incubated with monoclonal/polyclonal antibodies/oligonucleotide probes. Localization is made via biotin free immunoperoxidase method. Appropriate controls are performed and reacted as expected. Results on target cell population are indicated in the following table: RESULTS: ANTIBODY / CLONE RESULT Block A H Pylori (polyclonal) negative These tests were developed and their performance characteristics determined by [facility]. They may not have been cleared or approved by the U.S. Food and Drug Administration. The FDA has determined that such clearance or approval is not necessary. INTERPRETATION: A. Gastric ulcer, biopsy: Negative for Helicobacter pylori organisms. SJ:aydin 08/16/2020
--- NOTE | 2020-08-13 09:15 | EGD_PTH ---
PATIENT: JOSE JOHN LOC: EN U#:[id number] AGE/SX: 75/M ROOM: RE08/13/[address]: Dr. Neo Vallejo MD : 1945 BED: DIS: 08/13/2020 SPEC #: [id number] RECD: 08/13/20 11:34 STATUS: JAVID JAEL #: [id number] FAREED: 08/13/20 09:[address]: Neo Vallejo DEPT: SURGICAL PATHOLOGY RECD BY: Katherine Mohan ENTERED: 08/13/20 12:22 SP TYPE: EGD BIOPSY OT DR: Olena Gabriel, MICHELLE-C Tissues: A - Gastric mucous membrane B - Sigmoid colon biopsy Procedures: Surgery Specimen Level IV HEADER OPERATION: Colonoscopy, EGD ([facility] [place]) PRE-OP DIAGNOSIS: Black, tarry stools; RUQ pain; screening TISSUE SUBMITTED: A - Gastric ulcer biopsy for H. pylori and pathology, B - Sigmoid colon polyp biopsy MICROSCOPIC DIAGNOSIS A. Gastric ulcer, biopsy: Mild gastritis. Focal mild mucosal congestion and hemorrhage. See microscopic description and comment. B. Sigmoid colon polyp, biopsy: Fragments of colonic mucosa with focal minimal hyperplastic changes. SJ:aydin 08/16/2020 COMMENT A. The results of immunohistochemistry for Helicobacter pylori will be reported separately ([id number]). MICROSCOPIC DESCRIPTION Slides are reviewed. A. The specimen shows fragments of gastric mucosa with chronic inflammatory cell infiltrates in the lamina propria consisting of lymphocytes and plasma cells, consistent with mild chronic gastritis. Focal mild mucosal congestion and hemorrhage are also noted. GROSS DESCRIPTION A - Received in fixative is one container labeled with the patient's name and designated gastric ulcer biopsy. The specimen consists of two irregular fragments of light su soft tissue that in aggregate measure 0.5 x 0.5 x 0.1 cm. The specimen is totally submitted in one cassette. B - Received in fixative is one container labeled with the patient's name and designated sigmoid colon polyp. The specimen consists of two irregular fragments of light su soft tissue that in aggregate measure 0.3 x 0.3 x 0.1 cm. The specimen is totally submitted in one cassette. / AM:aydin 08/13/2020 TC:3 CPT: 59000 x2
--- NOTE | 2020-08-13 09:40 | OP.EGD_ITS ---
Patient Name: Luis Gaston Procedure Date: 08/13/2020 9:10 AM Date of : 1945 Age: 75 Procedure: Upper GI endoscopy Indications: Melena Providers: Neo Vallejo MD Referring MD: Olena Gabriel NP Medicines: Monitored Anesthesia Care Patient Profile: This is a 75 year old male. Refer to note in patient chart for documentation of history and physical. Complications: No immediate complications. Procedure: Pre-Anesthesia Assessment: - Prior to the procedure, a History and Physical was performed, and patient medications and allergies were reviewed. The patient's tolerance of previous anesthesia was also reviewed. The risks and benefits of the procedure and the sedation options and risks were discussed with the patient. All questions were answered, and informed consent was obtained. Prior Anticoagulants: The patient has taken no previous anticoagulant or antiplatelet agents. After reviewing the risks and benefits, the patient was deemed in satisfactory condition to undergo the procedure. After obtaining informed consent, the endoscope was passed under direct vision. Throughout the procedure, the patient's blood pressure, pulse, and oxygen saturations were monitored continuously. The Endoscope was introduced through the mouth, and advanced to the third part of duodenum. The upper GI endoscopy was accomplished without difficulty. The patient tolerated the procedure well. Scope In: 9:19:33 AM Scope Out: 9:21:55 AM Total Procedure Duration Time 0 hours 2 minutes 22 seconds Findings: One non-bleeding cratered gastric ulcer with adherent clot was found in the stomach. The lesion was 10 mm in largest dimension. Biopsies were taken with a cold forceps for Helicobacter pylori testing. The examined duodenum was normal. The esophagus was normal. Impression: - Non-bleeding gastric ulcer with adherent clot. Biopsied. - Normal examined duodenum. - Normal esophagus. Recommendation: - Discharge patient to home. - Resume previous diet. - Continue present medications. - Use Prilosec (omeprazole) 20 mg PO BID for 6 weeks. Procedure Code(s): --- Professional --- 30849, Esophagogastroduodenoscopy, flexible, transoral; with biopsy, single or multiple Diagnosis Code(s): --- Professional --- K25.4, Chronic or unspecified gastric ulcer with hemorrhage K92.1, Melena (includes Hematochezia) CPT copyright 2017 [employer]. All rights reserved. The codes documented in this report are preliminary and upon information coder review may be revised to meet current compliance requirements. Neo Vallejo MD 08/13/2020 9:40:34 AM This report has been signed electronically. Number of Addenda: 0 Note Initiated On: 08/13/2020 9:10 AM
--- NOTE | 2020-08-13 09:40 | OP.CCLET_ITS ---
08/13/2020 Olena Gabriel NP [facility] [address] [place] [id number] Re : Upper GI endoscopy procedure for Luis Gaston Dear Ms. Gabriel This procedure was performed on Thursday, August 13, 2020. My impressions and recommendations are as follows: Impressions : - Non-bleeding gastric ulcer with adherent clot. Biopsied. - Normal examined duodenum. - Normal esophagus. Recommendations : - Discharge patient to home. - Resume previous diet. - Continue present medications. - Use Prilosec (omeprazole) 20 mg PO BID for 6 weeks. My findings are described in the full procedure note, which is enclosed. If I can be of further assistance, please feel free to contact me at Doctor phone number(s): , Work: . Sincerely, Neo Vallejo MD 08/13/2020 9:40:34 AM This report has been signed electronically.
--- NOTE | 2020-08-13 09:44 | OP.COLON_ITS ---
Patient Name: Luis Gaston Procedure Date: 08/13/2020 9:22 AM Date of : 1945 Age: 75 Procedure: Colonoscopy Indications: Screening for colorectal malignant neoplasm Providers: Neo Vallejo MD Referring MD: Olena Gabriel NP Medicines: Monitored Anesthesia Care Patient Profile: This is a 75 year old male. Refer to note in patient chart for documentation of history and physical. Last Colonoscopy: more than 10 years ago. Complications: No immediate complications. Procedure: Pre-Anesthesia Assessment: - Prior to the procedure, a History and Physical was performed, and patient medications and allergies were reviewed. The patient's tolerance of previous anesthesia was also reviewed. The risks and benefits of the procedure and the sedation options and risks were discussed with the patient. All questions were answered, and informed consent was obtained. Prior Anticoagulants: The patient has taken no previous anticoagulant or antiplatelet agents. After reviewing the risks and benefits, the patient was deemed in satisfactory condition to undergo the procedure. After I obtained informed consent, the scope was passed under direct vision. Throughout the procedure, the patient's blood pressure, pulse, and oxygen saturations were monitored continuously. The Colonoscope was introduced through the anus and advanced to the cecum, identified by appendiceal orifice and ileocecal valve. The colonoscopy was performed without difficulty. The patient tolerated the procedure well. The quality of the bowel preparation was good. Scope In: 9:24:16 AM Scope Withdrawal Time 0 hours 7 minutes 5 seconds Scope Out: 9:34:51 AM Total Procedure Duration Time 0 hours 10 minutes 35 seconds Findings: A small polyp was found in the sigmoid colon. The polyp was removed with a cold biopsy forceps. Resection and retrieval were complete. The entire examined colon appeared normal on direct and retroflexion views. Impression: - One small polyp in the sigmoid colon, removed with a cold biopsy forceps. Resected and retrieved. - The entire examined colon is normal on direct and retroflexion views. Recommendation: - Discharge patient to home. - Resume previous diet. - Continue present medications. - Await pathology results. - Repeat colonoscopy for surveillance based on pathology results. Procedure Code(s): --- Professional --- 08893, Colonoscopy, flexible; with biopsy, single or multiple Diagnosis Code(s): --- Professional --- Z12.11, Encounter for screening for malignant neoplasm of colon D12.5, Benign neoplasm of sigmoid colon CPT copyright 2017 [employer]. All rights reserved. The codes documented in this report are preliminary and upon cpc coder review may be revised to meet current compliance requirements. Neo Vallejo MD 08/13/2020 9:43:28 AM This report has been signed electronically. Number of Addenda: 0 Note Initiated On: 08/13/2020 9:22 AM
--- NOTE | 2020-08-13 09:44 | OP.CCLET_ITS ---
08/13/2020 Olena Gabriel NP [facility] [address] [place] [id number] Re : Colonoscopy procedure for Luis Gaston Dear Ms. Gabriel This procedure was performed on Thursday, August 13, 2020. My impressions and recommendations are as follows: Impressions : - One small polyp in the sigmoid colon, removed with a cold biopsy forceps. Resected and retrieved. - The entire examined colon is normal on direct and retroflexion views. Recommendations : - Discharge patient to home. - Resume previous diet. - Continue present medications. - Await pathology results. - Repeat colonoscopy for surveillance based on pathology results. My findings are described in the full procedure note, which is enclosed. If I can be of further assistance, please feel free to contact me at Doctor phone number(s): , Work: . Sincerely, Neo Vallejo MD 08/13/2020 9:43:28 AM This report has been signed electronically.
== END 2020-08-13 10:59 | disposition home or self-care (01) ==
LOC: EN 08:04 → AC 08:05
PROVIDERS: PCP Nurse Practitioner; Referring Provider Nurse Practitioner; Visit Provider Surgery
PROC: 0DJD8ZZ Inspection of Lower Intestinal Tract, Via Natural or Artificial Opening Endoscopic (ICD-10-PCS; CPT 45378; principal; 2020-08-13 09:10)
DX: Z12.11 Encounter for screening for malignant neoplasm of colon (principal); D12.5 Benign neoplasm of sigmoid colon; K25.4 Chronic or unspecified gastric ulcer with hemorrhage; R19.5 Other fecal abnormalities; R10.11 Right upper quadrant pain; E11.65 Type 2 diabetes mellitus with hyperglycemia; I10 Essential (primary) hypertension; F48.2 Pseudobulbar affect; H35.30 Unspecified macular degeneration; M19.90 Unspecified osteoarthritis, unspecified site; K21.9 Gastro-esophageal reflux disease without esophagitis; Z20.822 Contact with and (suspected) exposure to COVID-19; F32.9 Major depressive disorder, single episode, unspecified; F41.9 Anxiety disorder, unspecified; Z87.891 Personal history of nicotine dependence; Z86.73 Personal history of transient ischemic attack (TIA), and cerebral infarction without residual deficits
CPT/HCPCS: 43239; 45380; 82962; 87426; 88305; 88342; C9803; J7120; J2405

== ENCOUNTER → 2020-09-29 | Outpatient (CLI) | payer MEDICARE, BC, SELFPAY ==
[2020-09-29 17:03] VITALS: BMI 25.1
[2020-09-29 22:06] LABS: AST(SGOT) 11 U/L (15-37); Alanine Aminotransfer ALT/SGPT 19 U/L (16-61); Albumin, Serum 3.9 g/dL (3.2-5.0); Alkaline Phosphatase 138 U/L (45-117); Anion Gap 5 (5-15); BUN 38 mg/dL (7-18); BUN/Creat Ratio 14.3 RATIO (10-20); Calcium,Total 9.4 mg/dL (8.5-10.1); Chloride 101 mmol/L (98-107); Creatinine, Serum 2.66 mg/dL (0.70-1.30); EST Glomerular Filtration Rate 25 mL/min (>60); Est Glom Filt Rate - Afr Amer 30 mL/min (>60); Globulin 3.9 g/dL (2.2-4.2); Glucose 374 mg/dL (74-106); Potassium 4.5 mmol/L (3.5-5.1); Protein, Total 7.8 g/dL (6.4-8.2); Sodium Level 135 mmol/L (136-145)
[2020-09-30 14:41] LABS: Hemoglobin A1c 11.7 % (3.8-5.6)
== END | disposition home or self-care (01) ==
PROVIDERS: PCP Nurse Practitioner; Referring Provider Nurse Practitioner; Visit Provider Nurse Practitioner
DX: E11.65 Type 2 diabetes mellitus with hyperglycemia (principal)
CPT/HCPCS: 80053; 83036

== ENCOUNTER → 2020-12-24 | Outpatient (CLI) | payer MEDICARE, BC, SELFPAY ==
[2020-12-24 14:21] VITALS: BMI 25.4
[2020-12-24 22:58] LABS: ALB/GLOB Ratio 0.9 RATIO (0.9-2.4); AST(SGOT) 9 U/L (15-37); Alanine Aminotransfer ALT/SGPT 18 U/L (16-61); Albumin, Serum 3.7 g/dL (3.2-5.0); Alkaline Phosphatase 117 U/L (45-117); Anion Gap 4 (5-15); BUN 28 mg/dL (7-18); BUN/Creat Ratio 11.9 RATIO (10-20); Calcium,Total 9.9 mg/dL (8.5-10.1); Chloride 107 mmol/L (98-107); Cholesterol 244 mg/dL (200); Creatinine, Serum 2.35 mg/dL (0.70-1.30); EST Glomerular Filtration Rate 29 mL/min (>60); Est Glom Filt Rate - Afr Amer 35 mL/min (>60); Glucose 139 mg/dL (74-106); High Density Lipoprotein 47 mg/dL; Potassium 4.2 mmol/L (3.5-5.1); Protein, Total 7.7 g/dL (6.4-8.2); Sodium Level 140 mmol/L (136-145); Triglycerides 370 mg/dL; Uric Acid 8.1 mg/dL (3.5-7.2); Very Low Density Lipoprotein 74 mg/dL (5-40)
[2020-12-24 23:25] LABS: Absolute Lymphocyte Count 1.43 X10^3/uL (0.83-4.51); Absolute Neutrophil Count 3.1 X10^3/uL (2.0-7.7); Basophil# 0.05 X10^3/uL; Basophil% 0.9 % (0-1); Eosinophil# 0.27 X10^3/uL; Eosinophils% 4.9 % (0-5); Hematocrit 37.1 % (40-54); Hemoglobin 12.2 g/dL (13.0-16.5); Lymphocyte # 1.43 X10^3/ul (0.83-4.51); Lymphocyte % 25.8 % (19-41); Mean Corp Hgb Conc 32.9 g/dL (32-36); Mean Corpuscular Hgb 30.3 pg (27.0-32.0); Mean Corpuscular Volume 92.1 fL (80-94); Mean Platelet Vol. 10.9 fl (6.2-12.0); Monocyte% 12.6 % (0-10); NRBC Flagged by Analyzer 0 % (0-5); Neutrophil # 3.07 X10^3/uL (2.7-7.7); Neutrophil % 55.3 % (47-70); Platelet Count 254 K/mm3 (150-450); RBC Distribution Width CV 13.6 % (11.6-14.6); Red Blood Count 4.03 M/mm3 (4.6-6.2); White Blood Count 5.6 K/mm3 (4.4-11.0)
== END | disposition home or self-care (01) ==
PROVIDERS: PCP Nurse Practitioner; Referring Provider Nurse Practitioner; Visit Provider Nurse Practitioner
DX: E11.65 Type 2 diabetes mellitus with hyperglycemia (principal); R25.2 Cramp and spasm; M25.579 Pain in unspecified ankle and joints of unspecified foot
CPT/HCPCS: 80053; 80061; 83735; 84550; 85025

== ENCOUNTER → 2021-01-13 10:34 | Outpatient (CLI) | payer MEDICARE, BC, SELFPAY ==
[2020-12-24 14:21] VITALS: BMI 25.4
[2021-01-13 11:08] LABS: Protein, Urine (Random) 62.7 mg/dL (<11.9); Protein:Creat Ratio 963 mg/g CRE (0-200)
== END ==
PROVIDERS: PCP Nurse Practitioner; Visit Provider Internal Medicine Nephrology
DX: E11.22 Type 2 diabetes mellitus with diabetic chronic kidney disease (principal); N18.9 Chronic kidney disease, unspecified
CPT/HCPCS: 82570; 84156

== ENCOUNTER → 2021-01-21 07:43 | Outpatient (CLI) | payer MEDICARE, BC, SELFPAY ==
[2020-12-24 14:21] VITALS: BMI 25.4
--- NOTE | 2021-01-21 07:47 | RDU_ITS ---
Reason For Study: CKD Stage 4 Right Renal Artery Left Renal Artery Right renal artery ostium 97.2/29.6 Left renal artery ostium 282.7/47.1 RSV/EDV. PSV/EDV. Right renal artery proximal Left renal artery proximal PSV/EDV 114.6/31.2 PSV/EDV. 259.6/36.7 . Right renal artery mid 116.8/37.8 Left renal artery mid 116.1/41.5. PSV/EDV. PSV/EDV . Right renal artery distal 128.5/37.8 Left renal artery distal 148.5/45 PSV/EDV. PSV/EDV. Right RAR 1.56. Left RAR 3.43. Right Renal Parenchyma Left Renal Parenchyma Upper Pole Medula 43.5/11.6 PSV/EDV. Left upper pole medulla 22.2/5 Right upper pole medulla EDR 0.27 . PSV/EDV . Right upper pole medulla R.I. 0.73 . Left upper pole medulla EDR 0.23 . Upper Daroi Cortx 20/6.5 PSV/EDV. Left upper pole medulla R.I. 0.77 . Right upper pole cortex EDR 0.33 . UP Cortex 15.5/5 PSV/EDV. Right upper pole cortex R.I. 0.67 . Left upper pole cortex EDR 0.33 . Right lower Pole medulla 27.4/7.1 Left upper pole cortex R.I. 0.67 . PSV/EDV . Left lower Pole medulla 27.8/6.9 Right lower pole medulla EDR 0.26 . PSV/EDV . Right lower pole medulla R.I. 0.74 . Left lower pole medulla EDR 0.25 . Lower Pole Cortex 17.1/5.9 PSV/EDV. Left lower pole medulla R.I. 0.75 . Right lower pole cortex EDR 0.35 . Lower Pole Cortx 18.5/5.7 PSV/EDV. Right lower pole cortex R.I. 0.65 . Left lower pole cortex EDR 0.30 . Right Renal Hilar Left lower pole cortex R.I. 0.70 . Right Hilar avg 66.3/13.3 PSV/EDV. Left Renal Hilar Right hilar acceleration time 40 LT Hilar avg 73.4/20.7 PSV/EDV . m/sec. Left hilar acceleration time 40 Right Renal Dimensions m/sec. Right kidney size 13.20 cm . Left Renal Dimensions Right cortical dimension 1.35 cm . Left kidney size 13.25 cm . Nonvascularized hypoechoic structure Left cortical dimension 1.26 cm . noted on right kidney measuring approximently 1.93 x 1.96 cm. Aorta Proximal abdominal aorta 1.69 x 1.66 cm . Proximal abdominal aorta peak systolic velocity is 82.5 cm/sec . Distal abdominal aorta 1.35 x 1.43 cm . Distal abdominal aorta peak systolic velocity is 53.3 cm/sec . VL/Renal Artery Duplex Ultrasound Interpretation Summary Right renal artery with less than a 60% degree of stenosis. Left renal artery o rigin appears to be greater than a 60% stenosis. Further evaluation is clinically warranted. Ordering Physician: Kristin Frank Referring Physician: Olena Gabriel Performed By: Yazmin Gustafson RVT and Student
== END ==
PROVIDERS: PCP Nurse Practitioner; Referring Provider Internal Medicine Nephrology; Visit Provider Internal Medicine Nephrology
DX: N18.4 Chronic kidney disease, stage 4 (severe) (principal)
CPT/HCPCS: 93975

== ENCOUNTER → 2021-02-04 08:47 | Outpatient (CLI) | payer MEDICARE, BC, SELFPAY ==
[2020-12-24 14:21] VITALS: BMI 25.4
[2021-02-04 09:09] LABS: Hematocrit 40.3 % (40-54); Hemoglobin 13.1 g/dL (13.0-16.5); Mean Corp Hgb Conc 32.5 g/dL (32-36); Mean Corpuscular Hgb 29.1 pg (27.0-32.0); Mean Corpuscular Volume 89.6 fL (80-94); Mean Platelet Vol. 9.9 fl (6.2-12.0); Platelet Count 217 K/mm3 (150-450); RBC Distribution Width CV 12.9 % (11.6-14.6); RBC Distribution Width SD 42.7 fl (35.1-43.9); White Blood Count 6.3 K/mm3 (4.4-11.0)
[2021-02-04 09:41] LABS: PTHIN 48.2 pg/mL (18.4-80.1)
[2021-02-04 10:02] LABS: Albumin, Serum 3.6 g/dL (3.2-5.0); BUN 27 mg/dL (7-18); BUN/Creat Ratio 11.4 RATIO (10-20); Calcium,Total 9.1 mg/dL (8.5-10.1); Chloride 104 mmol/L (98-107); Creatinine, Serum 2.36 mg/dL (0.70-1.30); EST Glomerular Filtration Rate 29 mL/min (>60); Est Glom Filt Rate - Afr Amer 35 mL/min (>60); Glucose 203 mg/dL (74-106); Phosphorus 2.5 mg/dL (2.5-4.9); Sodium Level 137 mmol/L (136-145)
== END ==
PROVIDERS: PCP Nurse Practitioner; Referring Provider Internal Medicine Nephrology; Visit Provider Internal Medicine Nephrology
DX: N18.4 Chronic kidney disease, stage 4 (severe) (principal)
CPT/HCPCS: 36415; 80069; 83970; 85027

== ENCOUNTER → 2021-02-22 15:29 | Outpatient (CLI) | payer MEDICARE, BC, SELFPAY ==
[2021-02-14 15:15] VITALS: BMI 25.2
[2021-02-22 17:02] LABS: Absolute Lymphocyte Count 1.29 X10^3/uL (0.83-4.51); Absolute Neutrophil Count 3.9 X10^3/uL (2.0-7.7); Basophil# 0.04 X10^3/uL; Basophil% 0.7 % (0-1); Eosinophil# 0.21 X10^3/uL; Eosinophils% 3.5 % (0-5); Hematocrit 41.7 % (40-54); Hemoglobin 13.6 g/dL (13.0-16.5); Lymphocyte # 1.29 X10^3/ul (0.83-4.51); Lymphocyte % 21.6 % (19-41); Mean Corp Hgb Conc 32.6 g/dL (32-36); Mean Corpuscular Hgb 29.4 pg (27.0-32.0); Mean Corpuscular Volume 90.3 fL (80-94); Mean Platelet Vol. 10.2 fl (6.2-12.0); Monocyte% 8.4 % (0-10); NRBC Flagged by Analyzer 0 % (0-5); Neutrophil # 3.91 X10^3/uL (2.7-7.7); Neutrophil % 65.5 % (47-70); Platelet Count 262 K/mm3 (150-450); RBC Distribution Width CV 12.8 % (11.6-14.6); RBC Distribution Width SD 42.6 fl (35.1-43.9); Red Blood Count 4.62 M/mm3 (4.6-6.2)
[2021-02-22 17:39] LABS: ALB/GLOB Ratio 0.9 RATIO (0.9-2.4); AST(SGOT) 12 U/L (15-37); Alanine Aminotransfer ALT/SGPT 19 U/L (16-61); Albumin, Serum 3.7 g/dL (3.2-5.0); Alkaline Phosphatase 114 U/L (45-117); Anion Gap 5 (5-15); BUN 27 mg/dL (7-18); BUN/Creat Ratio 11.9 RATIO (10-20); Calcium,Total 9.4 mg/dL (8.5-10.1); Chloride 104 mmol/L (98-107); Creatinine, Serum 2.26 mg/dL (0.70-1.30); EST Glomerular Filtration Rate 30 mL/min (>60); Est Glom Filt Rate - Afr Amer 37 mL/min (>60); Globulin 4.2 g/dL (2.2-4.2); Glucose 158 mg/dL (74-106); PSA,Total - Annual Screen 5.67 ng/mL (0.00-4.00); Potassium 4.4 mmol/L (3.5-5.1); Protein, Total 7.9 g/dL (6.4-8.2); Sodium Level 137 mmol/L (136-145); Thyroid Stim Hormone (TSH) 1.62 uIU/mL (0.358-3.74); Uric Acid 6.4 mg/dL (3.5-7.2)
[2021-02-23 10:18] LABS: Hepatitis C Antibody Non-Reactive (Nonreactive); Vitamin D,25 Hydroxy 28.9 ng/mL
== END ==
PROVIDERS: PCP Family Medicine Geriatric Medicine; Visit Provider Family Medicine Geriatric Medicine
DX: Z00.00 Encounter for general adult medical examination without abnormal findings (principal); E55.9 Vitamin D deficiency, unspecified; R53.83 Other fatigue; Z12.5 Encounter for screening for malignant neoplasm of prostate
CPT/HCPCS: 36415; 80053; 82306; 84153; 84443; 84550; 85025; 86803; G0103

== ENCOUNTER → 2021-05-03 00:38 | Outpatient (CLI) | payer MEDICARE, BC, SELFPAY ==
[2021-05-04 01:24] LABS: Absolute Lymphocyte Count 1.02 X10^3/uL (0.83-4.51); Absolute Neutrophil Count 4.6 X10^3/uL (2.0-7.7); Basophil# 0.03 X10^3/uL; Basophil% 0.5 % (0-1); Eosinophil# 0.24 X10^3/uL; Eosinophils% 3.8 % (0-5); Hemoglobin 13.2 g/dL (13.0-16.5); Lymphocyte # 1.02 X10^3/ul (0.83-4.51); Lymphocyte % 16.1 % (19-41); Mean Corp Hgb Conc 32.2 g/dL (32-36); Mean Corpuscular Hgb 29.3 pg (27.0-32.0); Mean Corpuscular Volume 91.1 fL (80-94); Monocyte# 0.48 X10^3/uL; Monocyte% 7.6 % (0-10); NRBC Flagged by Analyzer 0 % (0-5); Neutrophil # 4.55 X10^3/uL (2.7-7.7); Neutrophil % 71.8 % (47-70); Platelet Count 196 K/mm3 (150-450); RBC Distribution Width CV 13.5 % (11.6-14.6); RBC Distribution Width SD 45.5 fl (35.1-43.9); White Blood Count 6.3 K/mm3 (4.4-11.0)
[2021-05-04 02:05] LABS: ALB/GLOB Ratio 0.8 RATIO (0.9-2.4); AST(SGOT) 12 U/L (15-37); Alanine Aminotransfer ALT/SGPT 15 U/L (16-61); Albumin, Serum 3.4 g/dL (3.2-5.0); Alkaline Phosphatase 99 U/L (45-117); Anion Gap 7 (5-15); BUN 37 mg/dL (7-18); BUN/Creat Ratio 13.5 RATIO (10-20); Chloride 99 mmol/L (98-107); Creatinine, Serum 2.74 mg/dL (0.70-1.30); EST Glomerular Filtration Rate 24 mL/min (>60); Est Glom Filt Rate - Afr Amer 29 mL/min (>60); Globulin 4.3 g/dL (2.2-4.2); Glucose 667 mg/dL (74-106); Potassium 5.3 mmol/L (3.5-5.1); Protein, Total 7.7 g/dL (6.4-8.2); Sodium Level 132 mmol/L (136-145)
[2021-05-04 08:39] LABS: Hemoglobin A1c > 14.0 % (3.8-5.6)
== END ==
PROVIDERS: PCP Family Medicine Geriatric Medicine; Referring Provider Nurse Practitioner; Visit Provider Nurse Practitioner
DX: E11.65 Type 2 diabetes mellitus with hyperglycemia (principal); N28.9 Disorder of kidney and ureter, unspecified
CPT/HCPCS: 80053; 83036; 85025

== ENCOUNTER 2021-10-19 21:19 | Outpatient (CLI) | payer MEDICARE, BC, SELFPAY ==
[2021-10-19 21:31] LABS: Absolute Neutrophil Count 4.7 X10^3/uL (2.0-7.7); Basophil# 0.06 X10^3/uL; Basophil% 0.8 % (0-1); Eosinophil# 0.28 X10^3/uL; Eosinophils% 3.9 % (0-5); Hemoglobin 13.9 g/dL (13.0-16.5); Lymphocyte % 19.7 % (19-41); Mean Corp Hgb Conc 33.9 g/dL (32-36); Mean Corpuscular Hgb 30.2 pg (27.0-32.0); Mean Corpuscular Volume 89.1 fL (80-94); Mean Platelet Vol. 10.8 fl (6.2-12.0); Monocyte% 9.9 % (0-10); NRBC Flagged by Analyzer 0 % (0-5); Neutrophil # 4.65 X10^3/uL (2.7-7.7); Neutrophil % 65.6 % (47-70); Platelet Count 235 K/mm3 (150-450); RBC Distribution Width CV 13.6 % (11.6-14.6); RBC Distribution Width SD 44.6 fl (35.1-43.9); White Blood Count 7.1 K/mm3 (4.4-11.0)
[2021-10-19 21:46] LABS: AST(SGOT) 17 U/L (15-37); Alanine Aminotransfer ALT/SGPT 20 U/L (16-61); Albumin, Serum 3.8 g/dL (3.2-5.0); Alkaline Phosphatase 96 U/L (45-117); Anion Gap 8 (5-15); BUN 30 mg/dL (7-18); Calcium,Total 9.9 mg/dL (8.5-10.1); Chloride 104 mmol/L (98-107); Creatinine, Serum 2.51 mg/dL (0.70-1.30); EST Glomerular Filtration Rate 27 mL/min (>60); Est Glom Filt Rate - Afr Amer 32 mL/min (>60); Globulin 3.8 g/dL (2.2-4.2); Glucose 185 mg/dL (74-106); Potassium 4.6 mmol/L (3.5-5.1); Protein, Total 7.6 g/dL (6.4-8.2); Sodium Level 139 mmol/L (136-145)
[2021-10-19 21:56] LABS: Hemoglobin A1c 8.3 % (3.8-5.6)
== END 2021-10-19 23:59 | disposition home or self-care (01) ==
PROVIDERS: PCP Family Medicine Geriatric Medicine; Visit Provider Nurse Practitioner
DX: E11.40 Type 2 diabetes mellitus with diabetic neuropathy, unspecified (principal); E11.65 Type 2 diabetes mellitus with hyperglycemia
CPT/HCPCS: 80053; 83036; 85025

== ENCOUNTER 2022-02-23 05:49 | Day surgery (SDC) | payer MEDICARE, BC, SELFPAY ==
--- NOTE | 2022-02-16 10:19 | EKG12_ITS ---
Test Reason : PREOP Blood Pressure : / mmHG Vent. Rate : 083 BPM Atrial Rate : 083 BPM P-R Int : 128 ms QRS Dur : 090 ms QT Int : 386 ms P-R-T Axes : 059 067 062 degrees QTc Int : 453 ms Sinus rhythm with occasional Premature ventricular complexes Nonspecific ST abnormality Abnormal ECG Confirmed by PAL IRBY, ANKITA ([id number]), medical editor YAMIL HOFFMANN ([id number]) on 02/17/2022 10:30:13 A M Referred By: Neo Vallejo Confirmed By:NEYDA AGUILLON MD
[2022-02-16 11:22] LABS: Hematocrit 42.2 % (40-54); Hemoglobin 13.9 g/dL (13.0-16.5); Mean Corp Hgb Conc 32.9 g/dL (32-36); Mean Corpuscular Hgb 30.3 pg (27.0-32.0); Mean Corpuscular Volume 91.9 fL (80-94); Mean Platelet Vol. 10.5 fl (6.2-12.0); Platelet Count 256 K/mm3 (150-450); RBC Distribution Width CV 13.2 % (11.6-14.6); Red Blood Count 4.59 M/mm3 (4.6-6.2); White Blood Count 6.6 K/mm3 (4.4-11.0)
[2022-02-16 11:29] LABS: Partial Thromboplast Time 27.3 Seconds (24.1-36.2); Prothrombin Time (Protime)PT. 12.4 SECONDS (11.7-14.9)
[2022-02-16 11:53] LABS: AST(SGOT) 12 U/L (15-37); Alanine Aminotransfer ALT/SGPT 18 U/L (16-61); Albumin, Serum 3.5 g/dL (3.2-5.0); Alkaline Phosphatase 91 U/L (45-117); Anion Gap 6 (5-15); BUN 31 mg/dL (7-18); BUN/Creat Ratio 13.4 RATIO (10-20); Bilirubin, Direct 0.11 mg/dL (0.00-0.30); Calcium,Total 9.4 mg/dL (8.5-10.1); Chloride 106 mmol/L (98-107); Creatinine, Serum 2.31 mg/dL (0.70-1.30); EST Glomerular Filtration Rate 30 mL/min (>60); Est Glom Filt Rate - Afr Amer 36 mL/min (>60); Globulin 4.1 g/dL (2.2-4.2); Glucose 257 mg/dL (74-106); Hemoglobin A1c 8.1 % (3.8-5.6); Potassium 4.2 mmol/L (3.5-5.1); Protein, Total 7.6 g/dL (6.4-8.2); Sodium Level 138 mmol/L (136-145)
[2022-02-23] VITALS (12 sets, daily range): BP systolic 120–182; BP diastolic 58–92; PULSE 58–108; RESP 14–17; TEMP 36.1–36.6; O2SAT 93–100; BMI 23.6
[2022-02-23] MEDS: Lactated Ringers 1,000 ML 15 ML IV (06:30)
--- NOTE | 2022-02-23 07:20 | PCM.HP.BLA ---
History and Physical Date of Admission: 02/23/22 Intake Vital Signs ? 01/28/2216:43 02/08/2209:18 Height 5 ft 10 in 5 ft 10 in Weight: 170 lb 166 lb 8 oz BMI 24.3 23.8 BP 148/80 H 188/82 H Blood Pressure Location Rt brachial Rt brachial Position Sitting Sitting Respiration 18 16 Pulse 112 H 76 Pulse Source Doppler Monitor Temp 100.2 F H 97.5 F L Temp Source ? Temporal Pulse Oximetry (%) 96 96 Oxygen Delivery Method room air room air Intake Visit Reasons:?R INGUINAL HERNIA Chief Complaint: Right inguinal hernia Undercar Specialist Required: No Accompanied by: Is patient in pain?: Yes Pain scale (1-10): 4 Allergies lisinopril Allergy (Severe, Verified 02/08/22 09:19) raspy voice and coughPenicillins Allergy (Verified 02/08/22 09:19) AnaphylaxisSulfa (Sulfonamide Antibiotics) Allergy (Verified 02/08/22 09:19) Anaphylaxislevofloxacin [From Levaquin] Adverse Reaction (Verified 02/08/22 09:19) Upset Stomach Medications escitalopram oxalate 10 mg tablet (Lexapro) 10 mg PO DAILY #90 tabs 05/03/21 [Rx Confirmed 02/08/22] meclizine 12.5 mg tablet 12.5 mg PO TID PRN dizziness #30 tabs 05/03/21 [Rx Confirmed 02/08/22] dulaglutide 0.75 mg/0.5 mL subcutaneous pen injector (Trulicity) 0.75 mg subcut QWEEK 05/23/21 [History Confirmed 02/08/22] cyclobenzaprine 5 mg tablet 5 mg PO TID PRN muscle spasm #60 tabs 10/19/21 [Rx Confirmed 02/08/22] gabapentin 300 mg capsule 300 mg PO TID #90 caps 10/19/21 [Rx Confirmed 02/08/22] metformin 1,000 mg tablet 1,000 mg PO BID #60 tabs 10/19/21 [Rx Confirmed 02/08/22] omeprazole 20 mg capsule,delayed release 20 mg PO BID #60 caps 10/20/21 [Rx Confirmed 02/08/22] pioglitazone 15 mg tablet 15 mg PO DAILY #30 tabs 10/20/21 [Rx Confirmed 02/08/22] tamsulosin 0.4 mg capsule 0.4 mg PO DAILY #30 caps 12/01/21 [Rx Confirmed 02/08/22] amlodipine 5 mg tablet 5 mg PO DAILY #30 tabs 12/14/21 [Rx Confirmed 02/08/22] irbesartan 300 mg tablet 300 mg PO DAILY #30 tabs 12/14/21 [Rx Confirmed 02/08/22] tramadol 50 mg tablet 50 mg PO BID PRN pain back? chronic #60 tabs 12/14/21 [Rx Confirmed 02/08/22] cefuroxime axetil 500 mg tablet 500 mg PO Q12H #20 tabs 01/27/22 [Rx Confirmed 02/08/22] PFSH Medical History? Abdominal pain Anxiety disorder Black tarry stools Chronic renal insufficiency, stage III (moderate) Depression Diabetes type 2, uncontrolled Diarrhea Fatigue Hx TIA/stroke w/o resid Hypertension Kidney stones L eye torn retina Macular degeneration Mini stroke Osteoarthritis Pseudobulbar affect Surgical History? Hx laparoscopic cholecystectomy Previous back surgery Family History? Mother Diabetes Heart disease Hypertension CVA (cerebral vascular accident)Sister CVA (cerebral vascular accident) Heart diseaseOther High cholesterol Social History? Smoking Status:? Former smoker alcohol intake:? never substance use type:? does not use caffeine:? Yes what type of physical activity do you participate in:? none frequency:? does not exercise HPI HPI HPI: JOSE JOHN, is a 76 M who presents to the office today for right groin bulging and pain.? The patient says this is been present for few weeks.? He says it is getting worse.? There is a bulging in this area as well.? Patient has had left inguinal hernia repair in the past. ROS General General: No weight change, appetite, fatigue, colon cancer, breast cancer or weakness HEENT HEENT: Yes eye surgery; No difficulty swallowing, eye injury, swollen glands or hoarseness Additional Details: Macular degeneration Endo Endocrine: Yes diabetes mellitus; No thyroid disease, thyroid cancer, Hair loss, heat intolerance or cold intolerance Skin Skin: No rash or changing moles Breast Breast: No left breast lump, right breast lump, nipple discharge, breast pain, abnormal mammogram, abnormal US or breast enlargement Musc Musculoskeletal: Yes back problems; No arthritis, rheumatoid arthritis, gout or joint pain Cardio Cardiovascular: Yes high blood pressure; No murmur, pacemaker, heart disease, atrial fibrillation, heart attack, heart stent, palpitations, shortness of breat with exertion or chest pain Psych Psychiatric: No depression, anxiety or hearing voices Resp Respiratory: No shortness of breath, No sleep apnea, No cough, No COPD, No asthma, No emphysema and No wheezing Gastro Gastrointestinal: Yes abdominal pain, No nausea or vomiting, Yes diarrhea, No constipation, No blood in stool, No acid reflux, No hemorrhoids, No ulcers, No gallbladder problem and No black,tarry stools Devin Hematologic: No blood thinners, No blood disorders, No bleeding, No anemia and No blood clots Neuro Neurologic: No system reviewed and no additional complaints, except as documented, No as per HPI, No abnormal gait, No abnormal hearing, No abnormal movements, No abnormal speech, No behavioral changes, No burning sensations, No confusion, No convulsions, No disequilibrium, No dizziness, No localized weakness, No frequent falls, No headache(s), No lack of coordination, No loss of vision, No memory loss, Yes numbness, No other visual disturbances, No radicular pain, No restless legs, No sensory deficit, No syncope, Yes tingling, No tremor(s), No weakness and No other Exam Const General: cooperative Orientation: alert and oriented x3 [facility] Head: normal to inspection Neck Neck: normal visual inspection and full ROM Chest Chest palpation & inspection: normal inspection of the chest Resp Effort & Inspection: normal respiratory effort Auscultation: clear to auscultation bilaterally Cardio Rate: regular rate Rhythm: regular rhythm GI Inspection: non-distended Palpation: soft, hernia indirect inguinal on the right and nontender Skin General: no rashes or lesions noted Neuro General: patient alert and patient oriented x3 Extrem General: full ROM Psych Appearance: grossly normal Mental Status: mental status grossly normal Assessment and Plan Assessment and Plan (1) Right inguinal hernia: ?Status:?Acute ?Plan: The patient has a right inguinal hernia which is reducible.? I discussed robotic assisted laparoscopic inguinal hernia repair with mesh.? I discussed the procedure in detail as well as the risks including not limited to bleeding, infection, injury to spermatic cord or blood vessels.? I discussed mesh infection and mesh placement risks.? Patient understands the risks and is when to proceed. Neo Vallejo MD Pager: [facility] [address] [place] [address] [address] [place] [address] Office: I have re-examined the patient. There are no clinical changes since date of exam.
[2022-02-23] MEDS: Clindamycin 900 MG/50 ML BAG 75 MG IV (07:26)
[2022-02-23 07:35] LABS: Bedside Glucose 163 mg/dL (74-106)
[2022-02-23] MEDS: Bupivacaine 0.25% 30 ML Vial (08:28)
--- NOTE | 2022-02-23 08:48 | PCM.OPRPT ---
Report of Operation Date of Procedure: 02/23/22 Pre-Operative Diagnosis: Right inguinal hernia Post-Operative Diagnosis: Same Surgery/Procedure Performed:: Robotic assisted laparoscopic right inguinal hernia repair with mesh Description of Procedure: Patient was brought back the operating room and general anesthesia was induced. The abdomen was prepped and draped in usual sterile fashion. A midline incision was made superior to the umbilicus and deepened to the fascia which was elevated and a Veress needle was placed into the abdomen. Drop test was performed. The abdomen was insufflated 15 mmHg. Veress needle was removed and a port was placed. Camera was placed into the abdomen and it was inspected. There was a right inguinal hernia. The patient was placed in Trendelenburg position. Next a right lateral and left lateral 8 mm port were placed under direct visualization and then the robot was docked. The peritoneum was incised using electrocautery scissors. The peritoneum was dissected free distally until the hernia sac was identified and the hernia sac was reduced into the abdomen and dissected free from its adhesions. Once the hernia sac was reduced and there were no adhesions a ProGrip mesh was placed into the right inguinal region and unfolded completely covering the defect. The peritoneum was then reapproximated using a running 3 OV lock suture. This completely covered the mesh with peritoneum. Next the instruments were removed and the robot was undocked. The abdomen was allowed to desufflate. The ports were removed and the incisions were injected with local anesthetic and closed with interrupted 4-0 Monocryl suture. Steri-Strips and bandages were applied. The scrotum was checked in the end of the case and contain both testicles. The patient was awoken and taken to PACU in stable condition. Grafts/Implants Used: ProGrip mesh in the right inguinal region Admit VTE Documentation VTE Mechan Device Prophylaxis: SCD's
--- NOTE | 2022-02-23 08:55 | DCINST_ITS ---
Discharge Instructions Procedure Hernia Diet Discharge Diet: Light diet - advance as tolerated Activity Discharge Activity: May Not Drive (for 2-3 days or while taking narcotic pain meds.) and May Shower (with the bandage in place 1-2 days after surgery.) Lifting Restrictions: 20 pounds for 4 weeks. Additional Activity Instructions:: Climbing stairs is fine, walking is encouraged. Sitting in bed may be uncomfortable. Sitting up using your lateral muscles (sitting up sideways) is usually more comfortable. Do not drive, work heavy equipment of sign legal documents for 24 hours. If your hernia repair was an inguinal repair, you may have scrotal swelling, an ice pack and/or athletic support can provide more comfort. Pain medications may cause nausea, you should typically eat light foods as you take your pain medications. Pain medications may also cause constipation. If you have difficulty with this, discuss with your doctor. Dressing / Incision Call your doctor if your incision/area has: Continuous Slow Oozing, Sudden Increased Bleeding, Increased Pain/ Swelling, Increased Redness and Foul Smelling Discharge Call your doctor if you observe: Fever of 101 or Higher Suture Line Care: Avoid Pulling/Pushing and Avoid Pinching/Bending Remove Dressing in: 2 days (Remove clear bandages in 2 days, remove Steri-Strips in 7 to 10 days.) Cleanse incision/area with: Soap & Water Follow Up Care Please Follow Up With: Neo Vallejo MD When: Please call to schedule 2 week follow up appointment. [phone] Test Results: Test results from this visit will be discussed in further detail at your follow- up appointment, if applicable. Discharge Plan Admission Attending Provider: Neo Vallejo Primary Care Provider: Olena Gabriel ACCOUNTING RECRUITER Discharge Orders/Prescriptions Prescriptions: New oxycodone-acetaminophen [Percocet] 5-325 mg tablet 1 tab PO Q4H PRN (Reason: pain) 5 Days Qty: 10 0RF No Action meclizine 12.5 mg tablet 12.5 mg PO TID PRN (Reason: dizziness) Qty: 30 12RF gabapentin 300 mg capsule 300 mg PO TID Qty: 90 5RF metformin 1,000 mg tablet 1,000 mg PO BID Qty: 60 4RF cyclobenzaprine 5 mg tablet 5 mg PO TID PRN (Reason: muscle spasm) Qty: 60 6RF Rx Instructions: muscle relaxant amlodipine 5 mg tablet 5 mg PO DAILY Qty: 30 3RF tramadol 50 mg tablet 50 mg PO BID PRN (Reason: pain back chronic) Qty: 60 5RF escitalopram oxalate [Lexapro] 10 mg tablet 10 mg PO PRN PRN (Reason: Anxiety) tamsulosin 0.4 mg capsule 0.4 mg PO DAILY Qty: 30 4RF Other Ambulatory Orders: 12 Lead EKG (Routine) Location: None Selected Ordered By: Dr. Zach Street Referrals / Follow Up: Olena Gabriel NP, ACCOUNTING RECRUITER-C [Primary Care Provider] - Disposition Disposition (needs filled in before D/C Order can be placed): Home, Self Care
[2022-02-23 09:40] LABS: Bedside Glucose 187 mg/dL (74-106)
[2022-02-23] MEDS: Acetaminophen 325 MG Tablet PO (10:31)
[2022-02-23] MEDS: oxyCODONE 5 MG Tablet PO (10:32)
[2022-02-23] MEDS: Tamsulosin HCl 0.4 MG Capsule 0.8 MG PO (15:07)
== END 2022-02-23 15:37 | disposition home or self-care (01) ==
LOC: SDC 05:49 → AC 05:49
PROVIDERS: Anesthesiology; PCP Nurse Practitioner; Referring Provider Surgery; Visit Provider Surgery
PROC: (CPT 49650; principal; 2022-02-23 07:10)
DX: K40.90 Unilateral inguinal hernia, without obstruction or gangrene, not specified as recurrent (principal); E11.22 Type 2 diabetes mellitus with diabetic chronic kidney disease; N18.30 Chronic kidney disease, stage 3 unspecified; I12.9 Hypertensive chronic kidney disease with stage 1 through stage 4 chronic kidney disease, or unspecified chronic kidney disease; F41.9 Anxiety disorder, unspecified; F32.A Depression, unspecified; R97.20 Elevated prostate specific antigen [PSA]; Z87.891 Personal history of nicotine dependence; Z79.899 Other long term (current) drug therapy; Z79.84 Long term (current) use of oral hypoglycemic drugs; Z86.73 Personal history of transient ischemic attack (TIA), and cerebral infarction without residual deficits
CPT/HCPCS: 49650; S2900; 00840; 36415; 80048; 80076; 82962; 83036; 85027; 85610; 85730; 93005; J7120; J2405

== ENCOUNTER → 2022-05-10 | Outpatient (CLI) | payer MEDICARE, BC, SELFPAY ==
[2022-05-10 22:31] LABS: Absolute Lymphocyte Count 1.55 X10^3/uL (0.83-4.51); Absolute Neutrophil Count 4.7 X10^3/uL (2.0-7.7); Basophil# 0.05 X10^3/uL; Basophil% 0.7 % (0-1); Eosinophil# 0.24 X10^3/uL; Eosinophils% 3.4 % (0-5); Hematocrit 40.9 % (40-54); Hemoglobin 13.5 g/dL (13.0-16.5); Lymphocyte # 1.55 X10^3/ul (0.83-4.51); Lymphocyte % 21.7 % (19-41); Mean Corpuscular Hgb 29.7 pg (27.0-32.0); Mean Corpuscular Volume 90.1 fL (80-94); Mean Platelet Vol. 10.8 fl (6.2-12.0); Monocyte# 0.57 X10^3/uL; NRBC Flagged by Analyzer 0 % (0-5); Neutrophil # 4.73 X10^3/uL (2.7-7.7); Neutrophil % 66.1 % (47-70); Platelet Count 223 K/mm3 (150-450); RBC Distribution Width SD 46.2 fl (35.1-43.9); Red Blood Count 4.54 M/mm3 (4.6-6.2); White Blood Count 7.2 K/mm3 (4.4-11.0)
[2022-05-10 22:54] LABS: ALB/GLOB Ratio 0.9 RATIO (0.9-2.4); AST(SGOT) 17 U/L (15-37); Alanine Aminotransfer ALT/SGPT 17 U/L (16-61); Albumin, Serum 3.5 g/dL (3.2-5.0); Alkaline Phosphatase 91 U/L (45-117); Anion Gap 6 (5-15); BUN 33 mg/dL (7-18); Calcium,Total 9.5 mg/dL (8.5-10.1); Chloride 106 mmol/L (98-107); Cholesterol 260 mg/dL (200); Creatinine, Serum 2.35 mg/dL (0.70-1.30); EST Glomerular Filtration Rate 29 mL/min (>60); Est Glom Filt Rate - Afr Amer 35 mL/min (>60); Glucose 200 mg/dL (74-106); High Density Lipoprotein 47 mg/dL; Potassium 4.5 mmol/L (3.5-5.1); Protein, Total 7.5 g/dL (6.4-8.2); Sodium Level 138 mmol/L (136-145); Triglycerides 426 mg/dL
[2022-05-10 23:06] LABS: Hemoglobin A1c 7.7 % (3.8-5.6)
== END | disposition home or self-care (01) ==
PROVIDERS: PCP Nurse Practitioner; Visit Provider Nurse Practitioner
DX: I10 Essential (primary) hypertension (principal); E11.65 Type 2 diabetes mellitus with hyperglycemia
CPT/HCPCS: 80053; 80061; 83036; 85025

== ENCOUNTER → 2022-09-25 | Outpatient (CLI) | payer MEDICARE, BC, SELFPAY ==
[2022-09-25 22:30] LABS: ALB/GLOB Ratio 0.8 RATIO (0.9-2.4); AST(SGOT) 19 U/L (15-37); Alanine Aminotransfer ALT/SGPT 16 U/L (16-61); Albumin, Serum 3.4 g/dL (3.2-5.0); Alkaline Phosphatase 89 U/L (45-117); Anion Gap 5 (5-15); BUN 41 mg/dL (7-18); BUN/Creat Ratio 15.8 RATIO (10-20); Calcium,Total 9.1 mg/dL (8.5-10.1); Chloride 105 mmol/L (98-107); Creatinine, Serum 2.59 mg/dL (0.70-1.30); EST Glomerular Filtration Rate 26 mL/min (>60); Est Glom Filt Rate - Afr Amer 31 mL/min (>60); Glucose 171 mg/dL (74-106); Potassium 4.6 mmol/L (3.5-5.1); Protein, Total 7.4 g/dL (6.4-8.2); Sodium Level 138 mmol/L (136-145)
== END | disposition home or self-care (01) ==
PROVIDERS: PCP Nurse Practitioner; Visit Provider Nurse Practitioner
DX: I12.9 Hypertensive chronic kidney disease with stage 1 through stage 4 chronic kidney disease, or unspecified chronic kidney disease (principal); E11.65 Type 2 diabetes mellitus with hyperglycemia; E11.22 Type 2 diabetes mellitus with diabetic chronic kidney disease; N18.9 Chronic kidney disease, unspecified
CPT/HCPCS: 80053; 83036

== ENCOUNTER → 2023-03-14 | Outpatient (CLI) | payer MEDICARE, BC, SELFPAY ==
[2023-03-14 21:06] LABS: Absolute Neutrophil Count 3.9 X10^3/uL (2.0-7.7); Basophil# 0.04 X10^3/uL; Basophil% 0.7 % (0-1); Eosinophil# 0.35 X10^3/uL; Eosinophils% 5.8 % (0-5); Hematocrit 41.4 % (40-54); Hemoglobin 13.1 g/dL (13.0-16.5); Lymphocyte % 19.8 % (19-41); Mean Corp Hgb Conc 31.6 g/dL (32-36); Mean Corpuscular Hgb 29.7 pg (27.0-32.0); Mean Corpuscular Volume 93.9 fL (80-94); Mean Platelet Vol. 10.8 fl (6.2-12.0); Monocyte# 0.53 X10^3/uL; Monocyte% 8.7 % (0-10); NRBC Flagged by Analyzer 0 % (0-5); Neutrophil # 3.94 X10^3/uL (2.7-7.7); Neutrophil % 64.8 % (47-70); Platelet Count 216 K/mm3 (150-450); RBC Distribution Width CV 13.8 % (11.6-14.6); RBC Distribution Width SD 48.1 fl (35.1-43.9); Red Blood Count 4.41 M/mm3 (4.6-6.2); White Blood Count 6.1 K/mm3 (4.4-11.0)
[2023-03-14 21:27] LABS: ALB/GLOB Ratio 0.9 RATIO (0.9-2.4); AST(SGOT) 11 U/L (15-37); Alanine Aminotransfer ALT/SGPT 15 U/L (16-61); Albumin, Serum 3.4 g/dL (3.2-5.0); Alkaline Phosphatase 85 U/L (45-117); Anion Gap 8 (5-15); BUN 41 mg/dL (7-18); BUN/Creat Ratio 15.6 RATIO (10-20); Calcium,Total 8.6 mg/dL (8.5-10.1); Chloride 106 mmol/L (98-107); Cholesterol 213 mg/dL (200); Creatinine, Serum 2.62 mg/dL (0.70-1.30); EST Glomerular Filtration Rate 25 mL/min (>60); Est Glom Filt Rate - Afr Amer 31 mL/min (>60); Globulin 3.9 g/dL (2.2-4.2); Glucose 155 mg/dL (74-106); Hemoglobin A1c 6.5 % (3.8-5.6); High Density Lipoprotein 49 mg/dL; Potassium 4.9 mmol/L (3.5-5.1); Protein, Total 7.3 g/dL (6.4-8.2); Sodium Level 139 mmol/L (136-145); Thyroid Stim Hormone (TSH) 1.45 uIU/mL (0.358-3.74); Triglycerides 237 mg/dL; Very Low Density Lipoprotein 47 mg/dL (5-40)
[2023-03-16 16:09] LABS: Deamidated Gliadin IgA 5 units (0-19); Deamidated Gliadin IgG 25 units (0-19); Endomysial Antibody IgA Negative (Negative); Immunoglobulin A 240 mg/dL (61-437); t-Transglutaminase IgA <2 U/mL (0-3)
== END | disposition home or self-care (01) ==
PROVIDERS: PCP Nurse Practitioner; Visit Provider Nurse Practitioner
DX: I12.9 Hypertensive chronic kidney disease with stage 1 through stage 4 chronic kidney disease, or unspecified chronic kidney disease (principal); E11.22 Type 2 diabetes mellitus with diabetic chronic kidney disease; E11.65 Type 2 diabetes mellitus with hyperglycemia; R19.7 Diarrhea, unspecified
CPT/HCPCS: 80053; 80061; 82784; 83036; 83516; 84443; 85025; 86255

== ENCOUNTER 2023-10-01 21:52 | Outpatient (CLI) | payer MEDICARE, BC, SELFPAY ==
[2023-10-01 22:05] LABS: Absolute Lymphocyte Count 1.51 X10^3/uL (0.83-4.51); Absolute Neutrophil Count 4.7 X10^3/uL (2.0-7.7); Basophil# 0.07 X10^3/uL; Eosinophil# 0.41 X10^3/uL; Eosinophils% 5.6 % (0-5); Hematocrit 37.6 % (40-54); Hemoglobin 12.2 g/dL (13.0-16.5); Lymphocyte # 1.51 X10^3/ul (0.83-4.51); Lymphocyte % 20.6 % (19-41); Mean Corp Hgb Conc 32.4 g/dL (32-36); Mean Corpuscular Hgb 30.3 pg (27.0-32.0); Mean Corpuscular Volume 93.3 fL (80-94); Mean Platelet Vol. 10.4 fl (6.2-12.0); Monocyte# 0.62 X10^3/uL; Monocyte% 8.4 % (0-10); NRBC Flagged by Analyzer 0 % (0-5); Neutrophil # 4.71 X10^3/uL (2.7-7.7); Neutrophil % 64.1 % (47-70); Platelet Count 285 K/mm3 (150-450); RBC Distribution Width CV 13.5 % (11.6-14.6); RBC Distribution Width SD 46.6 fl (35.1-43.9); Red Blood Count 4.03 M/mm3 (4.6-6.2); White Blood Count 7.3 K/mm3 (4.4-11.0)
[2023-10-01 22:28] LABS: ALB/GLOB Ratio 0.9 RATIO (0.9-2.4); AST(SGOT) 14 U/L (15-37); Alanine Aminotransfer ALT/SGPT 16 U/L (16-61); Albumin, Serum 3.4 g/dL (3.2-5.0); Alkaline Phosphatase 90 U/L (45-117); Anion Gap 6 (5-15); BUN 42 mg/dL (7-18); BUN/Creat Ratio 12.1 RATIO (10-20); Calcium,Total 9.2 mg/dL (8.5-10.1); Chloride 108 mmol/L (98-107); Cholesterol 264 mg/dL (200); Creatinine, Serum 3.47 mg/dL (0.70-1.30); EST Glomerular Filtration Rate 18 mL/min (>60); Est Glom Filt Rate - Afr Amer 22 mL/min (>60); Globulin 3.9 g/dL (2.2-4.2); Glucose 147 mg/dL (74-106); Hemoglobin A1c 6.6 % (3.8-5.6); High Density Lipoprotein 54 mg/dL; PSA,Total - Annual Screen 8.11 ng/mL (0.00-4.00); Potassium 4.5 mmol/L (3.5-5.1); Protein, Total 7.3 g/dL (6.4-8.2); Sodium Level 139 mmol/L (136-145); Triglycerides 360 mg/dL; Very Low Density Lipoprotein 72 mg/dL (5-40)
--- OUTSIDE RECORDS SUMMARY | 2023-10-02 00:32 | XMS RPT_ITS | CCD ---
Author Name Unknown Address [address] [place] [address] Organization [facility] Care Team Providers Care Dehairer Name Role Phone BARRY YEEE J Unavailable Unavailable KRGARRETT DE LEON (WELL TREATMENT OFFSIDER) Unavailable Unavailable KRHALEY GARRETT (WELL TREATMENT OFFSIDER) Unavailable Unavailable DONICH, CARLY J Unavailable Unavailable DONICH, CARLY J Unavailable Unavailable ARTEM MONTAÑO () Unavailable Unavailable MONA COX Unavailable Unavailable MONA COX Unavailable Unavailable LIAM AGUILAR Unavailable Unavailable LUCILA EDWARDS Unavailable UnavailAC Abrams () Unavailable Unavailable DONICH, CARLY J Unavailable Unavailable AJ, VASEEM Unavailable Unavailable RADHA BURNS () Unavailable Unavailabl e NAKIA, CARLY J Unavailable Unavailable Gabriel, Olena Unavailable Unavailable PROVIDER, UNKNOWN Unavailable Unavailable Gabriel, Olena Unavailable Unavailable Gabriel, Olena Unavailable Unavailable PROVIDER, UNKNOWN Unavailable Unavailable Gabriel, Olena Unavailable Unavailable PROVIDER, UNKNOWN Unavailable Unavailable Gabriel, Olena Unavailable Unavailable Gabriel, Olena Unavailable Unavailable Allergies Allergy Classification Reported Allergen(s) Allergy Type Date of Onset Reaction(s) Facility (1 source) levoFLOXacin; Translations: [LEVOFLOXACIN] Drug Allergy 8 [facility] Repository (1 source) Penicillins; Translations: [PENICILLINS] Propensity to adverse reactions to drug (disorder) 8 [facility] Repository (1 source) Sulfonamides (Antibiotic); Translations: [SULFA (SULFONAMIDE ANTIBIOTICS)] Propensity to adverse reactions to drug (disorder) 8 [facility] Repository Problems Active Problems Problem Classification Problem Date Documented Date Episodic/Chronic Chronic kidney disease (1 source) Chronic kidney disease, stage 3 (moderate); Translations: [Chronic kidney disease, stage 3 (moderate)] Onset: 12-20-2017 Chronic Diabetes mellitus without complication (1 source) Type 2 diabetes mellitus without complications; Translations: [Type 2 diabetes mellitus without complications] Onset: 09-12-2017 Chronic Essential hypertension (1 source) Essential (primary) hypertension; Translations: [Essential (primary) hypertension] Onset: 09-12-2017 Chronic Malaise and fatigue (1 source) Weakness; Translations: [Weakness] Onset: 12-18-2017 Episodic Nonspecific chest pain (1 source) Other chest pain; Translations: [Other chest pain] Onset: 12-18-2017 Episodic Nutritional deficiencies (1 source) Unspecified severe protein-calorie malnutrition; Translations: [Unspecified severe protein-calorie malnutrition] Onset: 12-14-2017 Chronic Other nervous system disorders (2 sources) Other chronic pain; Translations: [Difficulty in walking, not elsewhere classified] Onset: 12-09-2017 Chronic Spondylosis; intervertebral disc disorders; other back problems (9 sources) Unspecified thoracic, thoracolumbar and lumbosacral intervertebral disc disorder; Translations: [Other intervertebral disc displacement, lumbar region] Onset: 05-28-2017 Chronic Spondylosis; intervertebral disc disorders; other back problems (3 sources) Spinal stenosis, lumbosacral region; Translations: [Low back pain] Onset: 09-12-2017 Episodic Unclassified (1 source) Insomnia, unspecified; Translations: [Insomnia, unspecified] Onset: 12-18-2017 Episodic Unclassified (1 source) Anorexia; Translations: [Anorexia] Onset: 12-18-2017 Episodic Unclassified (1 source) Other specified postprocedural states; Translations: [Other specified postprocedural states] Onset: 12-18-2017 Unclassified (1 source) Unknown / UNK(Unknown) Onset: 09-12-2017 Unclassified (2 sources) Spinal stenosis, lumbar region without neurogenic claudication; Translations: [Spinal stenosis, lumbar region without neurogenic ar] Onset: 06-25-2017 Past or Other Problems Problem Classification Problem Date Documented Date Episodic/Chronic Medical examination/evaluatio n (1 source) Encounter for other preprocedural examination; Translations: [Encounter for other preprocedural examination] Onset: 09-12-2017 Episodic Other diseases of kidney and ureters (2 sources) Cyst of kidney, acquired; Translations: [Cyst of kidney, acquired] Onset: 07-26-2017 Episodic Other non-traumatic joint disorders (2 sources) Pain in left hip; Translations: [Pain in left hip] Onset: 05-28-2017 Episodic Results Test Name Value Interpretation Reference Range Facil ity Encounters Encounter Date Encounter Type Care Provider Facility Start: 12-18-2017 End: 12-20-2017 Ambulatory CLAIRE ROCHA [facility] Start: 12-09-2017 End: 12-14-2017 Evaluation and management of inpatient LUCILA EDWARDS [facility] Start: 12-06-2017 End: 12-07-2017 Ambulatory MONA COX [facility] Start: 09-14-2017 End: 09-15-2017 Ambulatory CARLY YEE [facility] Start: 09-12-2017 End: 09-13-2017 Ambulatory GARRETT (WELL TREATMENT OFFSIDER) LC [facility] Start: 07-26-2017 Ambulatory UNKNOWN PROVIDER [facility] [employer] [facility] Start: 06-25-2017 [facility] Payers Date Payer Category Payer Policy ID Unknown Summary Purpose Family History No Family History Records FoundNo Family History Records FoundNo Family History Records Found Advance Directives No Advanced Directives Records FoundNo Advanced Directives Records FoundNo Advanced Directives Records Found Additional Source Comments (unrecognized sect ion and content) No Status Records FoundNo Status Records FoundNo Status Records Found INFORMATION SOURCE (unrecogn ized section and content) DATE CREATED AUTHOR AUTHOR'S ORGANIZ ATION 01/23/2018 [facility] DATE CREATED AUTHOR AUTHOR'S ORGANIZ ATION 01/29/[address] [facility] [employer] FOR RECORDS PERTAINING TO PATIENTS WHO ARE OR HAVE BEEN ENROLLED IN A CHEMICAL DEPENDENCY/SUBSTANCEABUSE PROGRAM, SOME INFORMATION MAY BE OMITTED. This clinical summary was aggregated from multiple sources. Caution should be exercised in using it in the provision of clinical care. This summary normalizes information from multiple sources, and as a consequence, information in this document may materially change the coding, format and clinical context of patient data. In addition, data may be omitted in some cases. CLINICAL DECISIONS SHOULD BE BASED ON THE PRIMARY CLINICAL RECORDS. [facility] [employer] provides no warranty or guarantee of the accuracy or completeness of information in this document.
== END 2023-10-01 23:59 | disposition home or self-care (01) ==
PROVIDERS: PCP Nurse Practitioner; Visit Provider Nurse Practitioner
DX: R97.20 Elevated prostate specific antigen [PSA] (principal); E11.65 Type 2 diabetes mellitus with hyperglycemia; F48.2 Pseudobulbar affect; K90.0 Celiac disease; I10 Essential (primary) hypertension; N28.9 Disorder of kidney and ureter, unspecified; M79.661 Pain in right lower leg
CPT/HCPCS: 80053; 80061; 83036; 84153; 85025; G0103

== ENCOUNTER 2023-11-13 06:39 | Inpatient (IN) | payer MEDICARE, BC, SELFPAY ==
[2023-11-13] VITALS (29 sets, daily range): BP systolic 151–190; BP diastolic 82–103; PULSE 58–121; RESP 14–93; TEMP 36.4–36.7; O2SAT 89–98; BMI 25.0; BMI 22.4
--- NOTE | 2023-11-13 06:55 | RAD_ITS ---
EXAM: XR CHEST, 1 VIEW CLINICAL INDICATION: CP TECHNIQUE: Frontal view of the chest. COMPARISON: 03/05/2017. FINDINGS: LUNGS AND PLEURAL SPACES: Hyperinflation consistent with COPD. Mild interstitial prominence. No pneumothorax. No effusion. HEART: Unremarkable. Cardiac silhouette not enlarged. MEDIASTINUM: Central airways and mediastinal contour are unremarkable. BONES/JOINTS: Unremarkable. No acute fracture. SOFT TISSUES: Unremarkable. RAD/Chest 1 View (Portable) IMPRESSION: 1. Hyperinflation consistent with COPD. 2. Mild interstitial prominence. Electronically Signed: Loy Madrid MD at 7:33 EDT ,
--- NOTE | 2023-11-13 06:55 | EKG12_ITS ---
Test Reason : REPEAT Blood Pressure : / mmHG Vent. Rate : 121 BPM Atrial Rate : 121 BPM P-R Int : 128 ms QRS Dur : 104 ms QT Int : 350 ms P-R-T Axes : 027 077 001 degrees QTc Int : [address] & T wave abnormality, consider inferior ischemia Abnormal ECG Confirmed by Loy Bull ([id number]), photograph editor YAMIL HOFFMANN ([id number]) on 11/14/2023 10:32:05 AM Referred By: Confirmed By:Loy Bull
[2023-11-13 07:08] LABS: Absolute Lymphocyte Count 1.82 X10^3/uL (0.83-4.51); Absolute Neutrophil Count 6.2 X10^3/uL (2.0-7.7); Basophil# 0.06 X10^3/uL; Basophil% 0.7 % (0-1); Eosinophil# 0.24 X10^3/uL; Eosinophils% 2.6 % (0-5); Hematocrit 34.6 % (40-54); Hemoglobin 11.2 g/dL (13.0-16.5); Lymphocyte # 1.82 X10^3/ul (0.83-4.51); Lymphocyte % 19.7 % (19-41); Mean Corp Hgb Conc 32.4 g/dL (32-36); Mean Corpuscular Hgb 29.9 pg (27.0-32.0); Mean Corpuscular Volume 92.5 fL (80-94); Monocyte# 0.83 X10^3/uL; NRBC Flagged by Analyzer 0 % (0-5); Neutrophil # 6.21 X10^3/uL (2.7-7.7); Neutrophil % 67.3 % (47-70); Platelet Count 289 K/mm3 (150-450); RBC Distribution Width CV 13.5 % (11.6-14.6); RBC Distribution Width SD 45.9 fl (35.1-43.9); Red Blood Count 3.74 M/mm3 (4.6-6.2); White Blood Count 9.2 K/mm3 (4.4-11.0)
--- NOTE | 2023-11-13 07:15 | EDS_ITS ---
HPI History of Present Illness Chief Complaint: Shortness of Breath Informant: patient Onset/Context/Timing Onset: Today Context: sudden Timing: Continuous Quality: Positive for - (Shallow breathing) Worsened by: Nothing Relieved by: Albuterol Associated Symptoms sore throat; Negative for cough, rhinorrhea, post nasal drip, ear pain, fever, chills, sweats, clear sputum, white sputum, yellow sputum or green sputum Chest Pain: Positive for Aching and - (Left lateral chest) Narrative Narrative: Patient presents with shortness of breath that began today. Patient states it began rather suddenly this morning when he woke up. Patient states it is constant. Patient states he feels like he is breathing shallow. Patient states that EMS administered an albuterol aerosol which helped with his breathing. Patient admits to a mild sore throat. Patient admits to some dull aching pain over the left side of his chest. Patient states it was more on the side of his chest and in the anterior chest. Patient denies any fevers or chills. PFSH PFS Medical History Abdominal pain Anxiety disorder Black tarry stools Chronic renal insufficiency, stage III (moderate) Depression Diabetes type 2, uncontrolled Diarrhea Easy bruising Fatigue Former smoker Heartburn Hx TIA/stroke w/o resid Hypertension Inguinal hernia of right side without obstruction or gangrene Kidney stones L eye torn retina Macular degeneration Mini stroke Neuropathy Osteoarthritis Pseudobulbar affect Home Medications amlodipine 5 mg tablet 5 mg PO DAILY blood pressure #90 tabs 10/01/23 [Rx Last Taken Unknown] atorvastatin 20 mg tablet 20 mg PO DAILY cholesterol #90 tabs 10/02/23 [Rx Last Taken Unknown] escitalopram oxalate 10 mg tablet (Lexapro) 10 mg PO DAILY Anxiety #90 tabs 10/02/23 [Rx Last Taken Unknown] prednisone 20 mg tablet 40 mg (2 x 20 mg) PO DAILY back #20 tabs 11/07/23 [Rx Last Taken Unknown] tramadol 50 mg tablet 50 mg PO Q6H pain lower back 7 days #28 tabs 11/07/23 [Rx Last Taken Unknown] gabapentin 300 mg capsule 300 mg PO BID nerve pain 11/13/23 [History Last Taken Unknown] metformin 1,000 mg tablet 1,000 mg PO QHS diabetes 11/13/23 [History Last Taken Unknown] metformin 1,000 mg tablet 500 mg PO DAILY diabetes 11/13/23 [History Last Taken Unknown] omeprazole 20 mg tablet,delayed release 20 mg PO BID PRN heartburn 11/13/23 [History Last Taken Unknown] tamsulosin 0.4 mg capsule 0.4 mg PO QHS urine flow 11/13/23 [History Last Taken Unknown] Allergy/AdvReac Type Severity Reaction Status Date / Time lisinopril Allergy Severe raspy Verified 11/13/23 06:51 voice and cough Penicillins Allergy Anaphylaxis Verified 11/13/23 06:51 Sulfa (Sulfonamide Allergy Anaphylaxis Verified 11/13/23 06:51 Antibiotics) levofloxacin [From Levaquin] AdvReac Upset Verified 11/13/23 06:51 Stomach Family History Mother Diabetes Heart disease Hypertension CVA (cerebral vascular accident) Sister CVA (cerebral vascular accident) Heart disease Other High cholesterol Surgical History Hx laparoscopic cholecystectomy Previous back surgery S/P laparoscopic hernia repair Social History (Updated 11/13/23 @ 14:35 by Priscilla Alfaro) Smoking Status: Former smoker alcohol intake: never substance use type: does not use caffeine: Yes what type of physical activity do you participate in: none frequency: does not exercise ROS ROS ED Constitutional Constitutional ED: Denies chills or fever(s) Eyes Eyes: Denies blurry vision or change in vision ENT ENT ED: Denies rhinorrhea or sore throat Cardiovascular Cardiovascular: Reports chest pain; Denies palpitations Respiratory/Chest Respiratory/Chest: Reports dyspnea; Denies cough Gastrointestinal Gastrointestinal: Denies nausea or vomiting Genitourinary Genitourinary ED: Denies dysuria or hematuria Musculoskeletal Musculoskeletal: Reports back pain; Denies neck pain Integumentary Denies abscess or rash Neurologic Neurologic: Denies headache(s) or weakness Allergic/Immunologic Allergic/Immunologic ED: Denies mouth swelling or urticaria EXAM Physical Exam Const Vital Signs: 11/13/23 06:40 11/13/23 06:40 11/13/23 06:49 Temperature 97.5 F L 97.5 F L 97.5 F L Temperature Source Temporal Temporal Temporal Pulse Rate 113 H 106 H 109 H Respiratory Rate 20 H 17 19 H Respiratory Effort Respiratory Depth Respiratory Pattern Blood Pressure 169/91 H 169/91 H 177/89 H Blood Pressure Mean 117 117 118 Pulse Ox 95 96 95 Oxygen Delivery Method Room Air Room Air Room Air 11/13/23 06:53 11/13/23 07:20 11/13/23 07:22 Temperature Temperature Source Pulse Rate 102 H Respiratory Rate 20 H Respiratory Effort Short of Breath Labored Respiratory Depth Normal Respiratory Pattern Normal Blood Pressure 172/85 H Blood Pressure Mean 114 Pulse Ox 94 95 Oxygen Delivery Method Room Air Room Air Room Air 11/13/23 07:52 11/13/23 08:00 11/13/23 09:00 Temperature 97.6 F L 98 F Temperature Source Temporal Temporal Pulse Rate 102 H 58 L 100 Respiratory Rate 20 H 16 20 H Respiratory Effort Respiratory Depth Respiratory Pattern Blood Pressure 166/82 H 173/91 H 179/86 H Blood Pressure Mean 110 118 117 Pulse Ox 95 98 95 Oxygen Delivery Method Room Air Room Air 11/13/23 10:00 11/13/23 11:00 11/13/23 11:53 Temperature Temperature Source Pulse Rate 93 108 H 106 H Respiratory Rate 14 16 18 Respiratory Effort Respiratory Depth Respiratory Pattern Blood Pressure 177/91 H 177/98 H 176/100 H Blood Pressure Mean 119 124 125 Pulse Ox 97 95 95 Oxygen Delivery Method Room Air Room Air Room Air 11/13/23 12:00 11/13/23 12:15 11/13/23 12:30 Temperature Temperature Source Pulse Rate 107 H 108 H Respiratory Rate 15 17 Respiratory Effort Respiratory Depth Respiratory Pattern Blood Pressure 178/90 H 173/85 H 190/101 H Blood Pressure Mean 115 110 127 Pulse Ox 95 92 Oxygen Delivery Method 11/13/23 12:45 Temperature Temperature Source Pulse Rate 110 H Respiratory Rate 19 H Respiratory Effort Respiratory Depth Respiratory Pattern Blood Pressure 184/97 H Blood Pressure Mean 120 Pulse Ox 93 Oxygen Delivery Method Positive well nourished and well developed General Appearance ED: well developed and NAD HEENT Reports moist mucous membranes Neck supple and no JVD Resp normal respiratory effort Auscultation: rales left base Cardio regular rate and regular rhythm GI non-tender and non-distended Palpation: soft Neuro oriented x3, CN's II-XII intact bilaterally and no sensory deficits noted Taylor Coma Scale: document GCS findings Spontaneous Obeys Commands Oriented 15 Sensorium / Orientation: alert Motor Exam: strength 5/5 throughout Psych mental status grossly normal MDM MDM MDM Narrative Medical decision making narrative: Differential diagnosis includes pneumonia, congestive heart failure, cardiac dysrhythmia, cardiac ischemia, electrolyte abnormality, and viral illness. EKG will be obtained to assess for cardiac dysrhythmia and cardiac ischemia. Chest x-ray will be obtained to assess for pneumonia and pneumothorax. CBC will be obtained to assess for leukocytosis and anemia. Basic metabolic profile will be obtained to assess for electrolyte abnormality and renal function. BNP will be obtained to assess for congestive heart failure. High-sensitivity troponin will be obtained to assess for cardiac ischemia. 2-hour repeat high-sensitivity troponin will be obtained to assess for ongoing cardiac ischemia. Lab Data Attestation: I reviewed the patient's lab results. Lab results narrative: CBC was reviewed. There is a slight anemia with a hemoglobin of 11.2 and hematocrit of 34.6. Basic metabolic profile was reviewed. BUN was 64 and creatinine was 4.19. These are increased from previous result. PT with INR and PTT were reviewed and were within normal limits. BNP was reviewed and was elevated at 819.6. Initial high-sensitivity troponin was reviewed and was 08/07/2007. 2-hour repeat high-sensitivity troponin was reviewed and was improved but was still elevated at 732. Labs: Laboratory Results - last 24 hr 11/13/23 11/13/23 06:47 12:18 WBC 9.2 RBC 3.74 L Hgb 11.2 L Hct 34.6 L MCV 92.5 MCH 29.9 MCHC 32.4 RDW Std Deviation 45.9 H RDW Coeff of Keith 13.5 Plt Count 289 MPV 10.0 Immature Gran % (Auto) 0.700 Neut % (Auto) 67.3 Lymph % (Auto) 19.7 Person % (Auto) 9.0 Eos % (Auto) 2.6 Baso % (Auto) 0.7 Absolute Neuts (auto) 6.2 Absolute Lymphs (auto) 1.82 Nucleated RBC % 0 PT 13.5 INR 1.0 APTT 27.9 Sodium 140 Potassium 4.2 Chloride 108 H Carbon Dioxide 20.0 L Anion Gap 12 BUN 64 H Creatinine 4.19 H Estim Creat Clear Calc 15.49 Est GFR (MDRD) Af Amer 18 L Est GFR (MDRD) Non-Af 15 L BUN/Creatinine Ratio 15.3 Glucose 157 H Calcium 8.6 Troponin I High Sens 1208 H* 732 H* B-Natriuretic Peptide 819.6 H Radiography Diagnostic Testing: Clinical Impression(s) from Imaging Studies Chest X-Ray 11/13/23 06:55 IMPRESSION: 1. Hyperinflation consistent with COPD. 2. Mild interstitial prominence. Electronically Signed: Loy Madrid MD at 7:33 EDT , Portable 1 view chest x-ray was obtained. On my independent interpretation, lung oh show hyperinflation. There is mild interstitial prominence. There is normal cardiac silhouette. Bony thorax is normal. There is no acute process noted. Radiologist also interpreted the x-ray and agrees. EKG Initial EKG: Attestation: I personally reviewed and interpreted this EKG as follows: Interpretation: Sinus Rhythm (103) and S-T Depression (V4, V5, and V6) Comments: EKG was obtained. On my independent interpretation, it showed sinus tachycardia with a rate of 103. IN interval was normal at 130. QRS interval was normal at 102. QTc interval was normal at 474. [place] was normal. There ST depression in leads V4, V5, and V6. Prior: Changed (Compared to previous EKG dated 02/16/2022, the ST depression in leads V4, V5, and V6 is more pronounced.) Follow-up EKG: Attestation: I personally reviewed and interpreted this EKG as follows: Interpretation: Sinus Tachycardia (121) and S-T Depression Comments: Repeat EKG was obtained. On my independent interpretation, there is a sinus tachycardia with a rate of 121. IN interval was normal at 128 ms. QRS interval was normal at 104 ms. QTc interval was 497 ms. [place] was normal. The ST depression in leads V4, V5, and V6 are improving. Prior EKG tracings: available for review Prior: Unchanged Treatment and Re-Evaluation :: Patient takes aspirin daily. Was given a dose of Lasix due to the chest x-ray findings and elevated BNP. There was a significant delay and treatment due to the fact that the chemistry machines in the lab were down for several hours. Patient was given nitroglycerin ointment. Case was discussed with Dr. Bull from cardiology. He agrees with admission and will follow with the patient. Case was discussed with the hospitalist. She will admit the patient to her service. Patient understood and was agreeable with the plan. All questions were answered. Discharge Plan Dx/Rx/DC Orders Clinical Impression: Congestive heart failure, Non-STEMI (non-ST elevated myocardial infarction), [id number] kidney injury Disposition Disposition: Acute Care Hospital [facility] Discharge Date/Time: 11/13/23 14:07
[2023-11-13 09:22] LABS: BNP,B-Type NATRIURETIC PEPTIDE 819.6 pg/mL (0-100)
[2023-11-13] MEDS: Furosemide 40 MG/4 ML Vial IV (11:42)
[2023-11-13 12:34] LABS: Anion Gap 12 (5-15); BUN 64 mg/dL (7-18); BUN/Creat Ratio 15.3 RATIO (10-20); Calcium,Total 8.6 mg/dL (8.5-10.1); Chloride 108 mmol/L (98-107); Creatinine, Serum 4.19 mg/dL (0.70-1.30); EST Glomerular Filtration Rate 15 mL/min (>60); Est Glom Filt Rate - Afr Amer 18 mL/min (>60); Estimated Creatinine Clearance 15.49 ml/min; Glucose 157 mg/dL (74-106); Potassium 4.2 mmol/L (3.5-5.1); Reflex Troponin-HS? (from REC) Y; Sodium Level 140 mmol/L (136-145); Troponin-I HS (w/2H Reflex) 1208 pg/mL (3.0-78.0)
--- NOTE | 2023-11-13 12:49 | PCM.HP.STD ---
HPI - General General Date of Admission: 11/13/23 Date of Service: 11/13/23 Chief Complaint: Chest pain/shortness of breath HPI Narrative JOSE JOHN, is a 78 M who presented to the emergency department at [facility] on 11/13/2019 4 in the morning with shortness of breath and left-sided chest pain under his left nipple. It began rather suddenly when he awoke this morning and noticed it was worse with exertion while going to the bathroom. He came back to the from the bathroom and sat on his bed and noted he was fairly short of breath with exertion. He denied any associated respiratory infectious symptoms and had had no fever or chills. He did indicate that the day prior to presentation he may have noticed some mild shortness of breath that abated fairly quickly. He had no associated nausea, vomiting, or diaphoresis. He has a known history of chronic renal disease and had seen Dr. Kristin Frank in the outpatient setting previously at which time she recommended dialysis but he indicates he does not want dialysis and never wants dialysis. He has no known history of coronary disease and has never had a cardiac catheterization or stress test. He has no known family history of coronary disease of which she is aware but he does have a personal and family history of diabetes, hypertension, and hyperlipidemia. He also has a personal history of tobacco abuse which he quit 20 years ago. He did have his cholesterol drawn recently and his total cholesterol was 264 with an LDL of 138 and a triglyceride level of 360/HDL 54. He also had a recent hemoglobin A1c at the same time on October 01, 2023 at which time of 6.6. He is having ongoing pain and Nitropaste has been placed. Vital signs on presentation showed temperature of 97.5, heart rate 113, blood pressure was 169/91, respiratory was 20 and oxygen saturations were 95% on room air. His CBC showed a mild stable anemia with a hemoglobin of 11.2. Coags were normal. Chemistry panel showed normal electrolytes however serum bicarb was 20. Anion gap is normal. BUN is 64 and serum creatinine is 4.19 (baseline recently is unknown however last documented here was October 01, 2023 at which time it was 3.47). His glucose was 157. Troponin was 1208 and BNP was elevated 819.6. Chest x-ray showed changes consistent with COPD and mild interstitial prominence with no signs of acute volume overload or any other findings. EKG was normal sinus rhythm with mild T wave depression in the anterior and lateral leads. Repeat EKG after Nitropaste was placed and these had resolved. He was given Nitropaste in the emergency department and 1 dose of IV Lasix. The case was discussed with cardiology who indicated they would see him in consult. [facility] Medical History (Updated 11/13/23 @ 15:[address] Amanda Frank, DO) Abdominal pain Anemia Anxiety disorder Black tarry stools Chronic renal insufficiency, stage III (moderate) Depression Diabetes type 2, uncontrolled Diarrhea Easy bruising Fatigue Former smoker Heartburn Hx TIA/stroke w/o resid Hypertension Inguinal hernia of right side without obstruction or gangrene Kidney stones L eye torn retina Macular degeneration Mini stroke Neuropathy Osteoarthritis Pseudobulbar affect Home Medications amlodipine 5 mg tablet 5 mg PO DAILY blood pressure #90 tabs 10/01/23 [Rx Last Taken Unknown] atorvastatin 20 mg tablet 20 mg PO DAILY cholesterol #90 tabs 10/02/23 [Rx Last Taken Unknown] escitalopram oxalate 10 mg tablet (Lexapro) 10 mg PO DAILY Anxiety #90 tabs 10/02/23 [Rx Last Taken Unknown] prednisone 20 mg tablet 40 mg (2 x 20 mg) PO DAILY back #20 tabs 11/07/23 [Rx Last Taken Unknown] tramadol 50 mg tablet 50 mg PO Q6H pain lower back 7 days #28 tabs 11/07/23 [Rx Last Taken Unknown] gabapentin 300 mg capsule 300 mg PO BID nerve pain 11/13/23 [History Last Taken Unknown] metformin 1,000 mg tablet 1,000 mg PO QHS diabetes 11/13/23 [History Last Taken Unknown] metformin 1,000 mg tablet 500 mg PO DAILY diabetes 11/13/23 [History Last Taken Unknown] omeprazole 20 mg tablet,delayed release 20 mg PO BID PRN heartburn 11/13/23 [History Last Taken Unknown] tamsulosin 0.4 mg capsule 0.4 mg PO QHS urine flow 11/13/23 [History Last Taken Unknown] Allergy/AdvReac Type Severity Reaction Status Date / Time lisinopril Allergy Severe raspy Verified 11/13/23 06:51 voice and cough Penicillins Allergy Anaphylaxis Verified 11/13/23 06:51 Sulfa (Sulfonamide Allergy Anaphylaxis Verified 11/13/23 06:51 Antibiotics) levofloxacin [From Levaquin] AdvReac Upset Verified 11/13/23 06:51 Stomach Family History Mother Diabetes Heart disease Hypertension CVA (cerebral vascular accident) Sister CVA (cerebral vascular accident) Heart disease Other High cholesterol Surgical History Hx laparoscopic cholecystectomy Previous back surgery S/P laparoscopic hernia repair Social History Smoking Status: Former smoker alcohol intake: never substance use type: does not use caffeine: Yes what type of physical activity do you participate in: none frequency: does not exercise Vital Signs Vital Signs Vital Signs: 11/13/23 06:40 11/13/23 06:40 11/13/23 06:49 Temperature 97.5 F L 97.5 F L 97.5 F L Temperature Source Temporal Temporal Temporal Pulse Rate 113 H 106 H 109 H Respiratory Rate 20 H 17 19 H Respiratory Effort Respiratory Depth Respiratory Pattern Blood Pressure 169/91 H 169/91 H 177/89 H Blood Pressure Mean 117 117 118 Pulse Ox 95 96 95 Oxygen Delivery Method Room Air Room Air Room Air 11/13/23 06:53 11/13/23 07:20 11/13/23 07:22 Temperature Temperature Source Pulse Rate 102 H Respiratory Rate 20 H Respiratory Effort Short of Breath Labored Respiratory Depth Normal Respiratory Pattern Normal Blood Pressure 172/85 H Blood Pressure Mean 114 Pulse Ox 94 95 Oxygen Delivery Method Room Air Room Air Room Air 11/13/23 07:52 11/13/23 08:00 11/13/23 09:00 Temperature 97.6 F L 98 F Temperature Source Temporal Temporal Pulse Rate 102 H 58 L 100 Respiratory Rate 20 H 16 20 H Respiratory Effort Respiratory Depth Respiratory Pattern Blood Pressure 166/82 H 173/91 H 179/86 H Blood Pressure Mean 110 118 117 Pulse Ox 95 98 95 Oxygen Delivery Method Room Air Room Air 11/13/23 10:00 11/13/23 11:00 11/13/23 11:53 Temperature Temperature Source Pulse Rate 93 108 H 106 H Respiratory Rate 14 16 18 Respiratory Effort Respiratory Depth Respiratory Pattern Blood Pressure 177/91 H 177/98 H 176/100 H Blood Pressure Mean 119 124 125 Pulse Ox 97 95 95 Oxygen Delivery Method Room Air Room Air Room Air 11/13/23 12:00 Temperature Temperature Source Pulse Rate 107 H Respiratory Rate 15 Respiratory Effort Respiratory Depth Respiratory Pattern Blood Pressure 178/90 H Blood Pressure Mean 115 Pulse Ox 95 Oxygen Delivery Method Weight Weight: 79 kg Body Mass Index (BMI) 25.0 Physical Exam Const alert, oriented x3, no apparent distress, average body habitus and well nourished Constitutional Narrative: Very pleasant, older, white male, sitting up in bed, daughter at bedside, currently appears comfortable, nontoxic General Appearance: cooperative HEENT normocephalic, head/scalp atraumatic, hearing grossly normal bilaterally and moist oral mucous membranes HEENT Narrative: Dentition is poor, Mallampati is 2, no thrush Eyes PERRL, EOMs intact bilaterally and conjunctivae normal Eyes Narrative: No scleral icterus Neck no lymphadenopathy and supple Neck Narrative: Trachea is midline, no thyroid enlargement Resp normal respiratory effort, no retractions, no use of accessory muscles and clear to auscultation bilaterally Resp Narrative: Diminished but clear Auscultation: Negative for rales, rhonchi or wheezes Cardio regular rate, regular rhythm, S1 normal heart sound, S2 normal heart sound, no rub, no gallops and no clicks; Negative for no murmurs Cardio Narrative: 2 out of 6 systolic murmur loudest at right upper sternal border GI normal to inspection, nondistended, normoactive bowel sounds, soft to palpation and non-tender Extremity no clubbing, cyanosis or edema Extremity Narrative: Pedal pulses are 2+, radial pulses are 2+ Skin no rashes or lesions noted, no wounds, skin turgor normal, no jaundice, no petechiae and no mottling Neuro oriented x3, CN's II-XII intact bilaterally, moves all extremities and no focal motor deficits Speech: speech normal Psych affect normal Psych Narrative: Very pleasant, interacts appropriately Results Lab / Micro Data 11/13/23 06:47 11/13/23 06:47 Labs: Laboratory Results - last 24 hr 11/13/23 06:47: WBC 9.2, RBC 3.74 L, Hgb 11.2 L, Hct 34.6 L, MCV 92.5, MCH 29.9, MCHC 32.4, RDW Std Deviation 45.9 H, RDW Coeff of Keith 13.5, Plt Count 289, MPV 10.0, Immature Gran % (Auto) 0.700, Neut % (Auto) 67.3, Lymph % (Auto) 19.7, [place] % (Auto) 9.0, Eos % (Auto) 2.6, Baso % (Auto) 0.7, Absolute Neuts (auto) 6.2, Absolute Lymphs (auto) 1.82, Nucleated RBC % 0, Sodium 140, Potassium 4.2, Chloride 108 H, Carbon Dioxide 20.0 L, Anion Gap 12, BUN 64 H, Creatinine 4.19 H, Estim Creat Clear Calc 15.49, Est GFR (MDRD) Af Amer 18 L, Est GFR (MDRD) Non-Af 15 L, BUN/Creatinine Ratio 15.3, Glucose 157 H, Calcium 8.6, Troponin I High Sens 1208 H*, B-Natriuretic Peptide 819.6 H Imaging Radiology Impression Chest X-Ray 11/13/23 06:55 IMPRESSION: 1. Hyperinflation consistent with COPD. 2. Mild interstitial prominence. Electronically Signed: Loy Madrid MD at 7:33 EDT , Assessment & Plan Assessment/Plan (1) Cyrci-yx-ikguhfh kidney injury: (2) Non-STEMI (non-ST elevated myocardial infarction): (3) Elevated brain natriuretic peptide (BNP) level: (4) Unstable angina: PLAN: Plan Unstable angina/elevated troponin -Initial troponin greater than 1200 -Cycle cardiac enzymes -Patient did have ST depression anterior lateral leads on his initial EKG which improved after Nitropaste -Continue Nitropaste -Aspirin 81 mg daily -Heparin drip -Improved blood pressure control by adding metoprolol 50 mg p.o. twice daily and isosorbide mononitrate 60 mg daily -Will give first doses once he arrives at the floor -Check echocardiogram -Recent lipids were obtained in September at which time he had total cholesterol of 264/LDL 138/HDL 54/triglycerides 360 -Continue atorvastatin but increase to 80 mg -Recent hemoglobin A1c in September was 6.6 -Consult cardiology -Intervention may be limited at this time as the patient does not ever wish to go on dialysis and he has marked renal dysfunction -Await cardiology input ZOFIA on CKD stage IV/history of nephrolithiasis -Baseline serum creatinine had been running between 2 and 2.5 however most recent labs from September his serum creatinine was 3.47 -At 4.19 on presentation -Will check Fe urea/andFeNa -Patient was given Lasix in the emergency department -Unclear if his kidney dysfunction is related to heart failure or volume depletion -Check renal ultrasound and if abnormal will place [place] -Avoid nephrotoxins as able -Nephrology consult in place -Patient indicates he never wants to go on dialysis not even short-term Elevated BNP -No signs of volume overload clinically -Unclear what the significance of this is with his renal function -Hold on Lasix for now until I can gather more data -Check echocardiogram Chronic anemia -Likely related to chronic renal disease -Hemoglobin is stable -Monitor Hypertension -Patient is only on low-dose amlodipine at home -Stop amlodipine -Add metoprolol 50 mg p.o. twice daily -Add isosorbide mononitrate 60 mg daily -Continue to trend Hyperlipidemia -Uncontrolled on most recent lab from September -Increase atorvastatin dose from 20 to 80 mg DM-2 -Hold metformin due to renal dysfunction -Will need alternative at discharge next-most recent hemoglobin A1c was 6.6 from September indicating good glycemic control at baseline GERD -Continue PPI BPH with obstruction/elevated PSA -Continue home Flomax -Outpatient follow-up as instructed by PCP History of TIA -Patient is not on any aspirin at baseline -Baby aspirin started on admission due to admitting diagnosis History of tobacco abuse -Encourage ongoing cessation Osteoarthritis -As needed Tylenol DVT prophylaxis -Heparin drip for now CODE STATUS -DNR CCA okay for short-term inpatient as per discussion in the emergency department prior to admission with his daughter at the bedside -Patient is aware that CODE STATUS will be revoked in the event that he does need cardiac catheterization and is agreeable Charges/Coding Visit Charges Inpatient E&M: 18175 Init Hosp L2
[2023-11-13 12:54] LABS: Troponin-I HS 732 pg/mL (3.0-78.0)
--- NOTE | 2023-11-13 13:04 | US_ITS ---
EXAM: US Kidney(s) complete (eg, kidneys and bladder) INDICATION: Male, 78 years old. Acute on chronic kidney injury TECHNIQUE: Lopez-scale and color Doppler imaging was performed of the kidneys COMPARISON: No relevant priors. FINDINGS: RIGHT KIDNEY: The right kidney measures 12.1 x 5.9 x 6.8 cm. Renal cortex measures 1.3 cm. There are multiple anechoic lesions within the right kidney, the largest of which measures up to 1.9 cm. There is no hydronephrosis. There is no evidence of nephrolithiasis. Distal right ureter is not visualized. . LEFT KIDNEY: Left kidney measures 9.2 x 4.2 x 4.3 cm. Renal cortex measures 0.8 cm. Multiple anechoic lesions are noted within the left kidney, the largest which measures 1.5 cm. There is no hydronephrosis. There is no evidence of nephrolithiasis. Distal left ureter is not visualized. URINARY BLADDER: Urinary bladder measures 72 mL.. There is no focal lesion. There is no wall thickening.. US/Kidney and Bladder IMPRESSION: 1. Simple appearing bilateral renal cysts Electronically Signed: Yash Waters MD at 2:09 EDT ,
--- NOTE | 2023-11-13 13:15 | EKG12_ITS ---
Test Reason : Blood Pressure : / mmHG Vent. Rate : 112 BPM Atrial Rate : 112 BPM P-R Int : 130 ms QRS Dur : 100 ms QT Int : 368 ms P-R-T Axes : 039 079 028 degrees QTc Int : 502 ms Sinus tachycardia Nonspecific ST and T wave abnormality Abnormal ECG When compared with ECG of 13-NOV-2023 13:28, MANUAL COMPARISON REQUIRED, DATA IS UNCONFIRMED Confirmed by Loy Bull ([id number]), editor managing director YAMIL HOFFMANN ([id number]) on 11/14/2023 10:42:17 AM Referred By: ERI Confirmed By:Loy Bull
[2023-11-13] MEDS: Nitroglycerin Oint 1 INCH PACKET TD ×2 (13:29→17:13)
[2023-11-13 13:31] LABS: Prothrombin Time (Protime)PT. 13.5 SECONDS (11.7-14.9)
[2023-11-13 13:32] LABS: Partial Thromboplast Time 27.9 Seconds (24.1-36.2)
[2023-11-13 13:35] LABS: Bedside Glucose 256 mg/dL (74-106)
--- NOTE | 2023-11-13 14:19 | ECHOD_ITS ---
Reason For Study: CHEST PAIN Procedure This was a 2D Doppler, Color Flow transthoracic echocardiogram. The study was technically difficult. Limited parasternal images. Exam performed portable in patient room. Left Ventricle Normal LV size. The estimated ejection fraction is 45 %. Stage 1 diastolic dysfunction. Mild hypokinesis of the apex and anterior wall. Right Ventricle Normal RV size. Normal systolic function. Atria Normal left atrium. Normal right atrium. No doppler evidence for ASD. Mitral Valve There is no mitral valve stenosis. Mild (1+) mitral valve insufficiency. Tricuspid Valve There is no tricuspid stenosis. Unable to estimate RV systolic pressure due to inadequate jet, pulmonary artery pressure probably normal. Aortic Valve Trisinus/trileaflet aortic valve. There is no aortic stenosis. No aortic valve insufficiency. Pulmonic Valve There is no pulmonic valvular stenosis. No pulmonic valve insufficiency. Great Vessels Normal aortic root. Pericardium/Pleural No pericardial effusion. MMode/2D Measurements & Calculations RVDd: 3.4 cm LVOT diam: 1.9 cm LAV(MOD-bp): 40.5 ml LVOT area: 2.8 cm2 LAV(MOD-bp) Indexed: 21.5 ml/m2 LAV(MOD-sp2): 52.6 ml LAV(MOD-sp4): 30.5 ml SV(MOD-sp4): 43.8 ml LVAd ap4: 32.1 cm2 LVAd ap2: 37.8 cm2 LVLd ap4: 7.8 cm LVLd ap2: 9.1 cm EDV(MOD-sp4): 105.1 ml EDV(MOD-sp2): 129.4 ml EDV(sp4-el): 111.9 ml EDV(sp2-el): 133.3 ml LVAs ap4: 23.0 cm2 LVAs ap2: 28.0 cm2 LVLs ap4: 7.5 cm LVLs ap2: 8.4 cm ESV(MOD-sp4): 61.3 ml ESV(MOD-sp2): 79.4 ml ESV(sp4-el): 60.2 ml ESV(sp2-el): 79.2 ml EF(MOD-sp4): 41.7 % EF(MOD-sp2): 38.6 % EF(sp4-el): 46.2 % SV(MOD-sp2): 50.0 ml SV(sp4-el): 51.7 ml LA A4 area: 13.9 cm2 TAPSE: 2.3 cm RA A4 area: 12.3 cm2 Time Measurements MV dec time: 0.17 sec Doppler Measurements & Calculations MV E max jesus: 103.4 cm/sec Lat Peak E' Jesus: 3.8 cm/sec Med Peak E' Jesus: 5.1 cm/sec MV A max jesus: 109.3 cm/sec E/E' lat: 27.4 E/E' med: 20.3 MV E/A: 0.95 MV dec slope: 601.7 cm/sec2 Ao V2 max: 112.5 cm/sec LV V1 max: 86.0 cm/sec Ao max P.1 mmHg LV V1 max P.0 mmHg Ao V2 mean: 88.1 cm/sec LV V1 mean P.2 mmHg Ao mean P.3 mmHg LV V1 mean: 49.4 cm/sec Ao V2 VTI: 22.1 cm LV V1 VTI: 18.2 cm AV (velocity ratio): 0.82 YUVAL(I,D): 2.3 cm2 YUVAL(V,D): 2.1 cm2 SV(LVOT): 50.7 ml PA V2 max: 88.1 cm/sec PA max PG (full): 0.89 mmHg ECHO/Echo Complete Interpretation Summary The estimated ejection fraction is 45 %. Mild hypokinesis of the apex and anterior wall Mild (1+) mitral valve insufficiency. Stage 1 diastolic dysfunction. Ordering Physician: Amanda Frank Performed By: Yaritza Metz RDCS and Student
[2023-11-13] MEDS: Metoprolol Tartrate 50 MG Tablet PO ×2 (14:58→21:31)
[2023-11-13] MEDS: HEPARIN/D5w 25,000 UNITS 25,000 UNITS/250 ML IV.SOLN. 9 UNITS CONT INF (15:49)
[2023-11-13] MEDS: Heparin Injection (Vial) 5,000 UNIT/ML VIAL 4000 UNIT IV (15:50)
[2023-11-13] MEDS: Metoprolol Tartrate 5 MG/5 ML Vial IV (15:52)
--- NOTE | 2023-11-13 15:52 | PCM.CONS.C ---
Assessment & Plan Assessment/Plan (1) Unstable angina: PLAN: The patient's EKG changes, elevated troponins, and symptoms are suggestive of unstable angina. He is currently on nitroglycerin and heparin is being added IV full dose. We need to better control his heart rate and blood pressure he is given IV Lopressor on top of his standing dose of oral metoprolol. We will cycle 2 more sets of enzymes. I did discuss with him cardiac catheterization and the contrast exposure that could result in further renal damage. He is adamant he will not participate in renal replacement therapy at this time. I feel that we should continue with aggressive medical therapy given the fact he is resistant to even temporary dialysis at this point in time. His initial look at the LV does not show significant wall motion abnormalities. (2) Elevated brain natriuretic peptide (BNP) level: PLAN: The BNP could be elevated related to his apparent volume retention from an acute on chronic renal failure. (3) Kzyzi-qf-xylrogc kidney injury: QUALIFIERS: Acute renal failure type: unspecified Chronic kidney disease stage: stage 4 (severe) Qualified Code(s): N17.9 - Acute kidney failure, unspecified; N18.4 - Chronic kidney disease, stage 4 (severe) PLAN: The patient has seen Dr. Kristin Frank in the past she has recommended renal replacement therapy and he has refused in the past. Nephrology was reconsulted. (4) Shortness of breath at rest: PLAN: The shortness of breath is probably multifactorial consistent with potential anginal equivalent as well as volume overload from his acute on chronic renal failure and potential congestive heart failure. Will continue with diuresis and monitor his renal function closely. Will continue to try and get better control his blood pressure with IV hydralazine in addition to the nitrates he is on for afterload reduction therapy. Will also continue with beta-veronica therapy to control his heart rate and blood pressure as well. PLAN: Plan 1. Will add hydralazine to the nitrates for afterload reduction therapy. 2. Fully anticoagulate with IV heparin. 3. Cycle 2 more sets of cardiac isoenzymes. 4. Further discussed invasive treatment options after evaluation from nephrology. 5. Will readdress medical therapy once results of the echocardiogram are formally published. 6. If the patient continues to decline renal replacement therapy palliative care should be consulted. HPI Consult Data Date of Consult: 04/09/24 HPI Narrative HPI Narrative: JOSE JOHN, is a 78 M who presents with a history of being awoken this morning with some left-sided left nipple area chest discomfort associated with some shortness of breath. This became more intense when he walked to the restroom in his home this morning and he presented to the emergency department. He did note that he had some mild shortness of breath with exertion yesterday as well. The patient was evaluated emergency department where his troponin and BNP were both found to be elevated his chest symptoms resolved with Nitropaste and with some diuresis. He was given IV Lasix in the ER. The patient's chest x-ray showed potential interstitial edema. He was admitted to the floor where he had another episode of diaphoresis and dyspnea on exertion trying to get in and out of the restroom where he had a large bowel movement. When getting back in the bed he was hypoxic and severely hypertensive in the 190 systolic range. The symptoms resolved with O2 nasal cannula and he was given additional Lopressor both IV and p.o. His heart rate was in the 90 bpm range when this started. An EKG showed normal sinus rhythm with nonspecific ST-T wave changes that were less prominent than those on the EKG in the emergency department. The patient carries a history of chronic renal insufficiency creatinine earlier this year was 3.5 it is now above 4. He has seen Dr. Kristin Frank in the outpatient setting and has refused recommended renal replacement therapy in the past. I discussed the pathophysiology of total body atherosclerosis and the impact that his diabetes renal failure atherosclerosis and cardiac issues have on each other. We did discuss cardiac catheterization and the risk of further renal damage given contrast exposure. The patient reiterated to me that he does not want dialysis. The patient denies any lower extremity edema he has had a significant urine output since the IV Lasix was administered earlier today. And his O2 sats are in the 95% range on 2 L nasal cannula resting flat in the bed. He is currently undergoing a 2D echocardiogram. Preliminary the echo reveals LV function that appears to be near normal. There is some significant mitral regurgitation noted. The final official reading is pending. [facility] Medical History Abdominal pain Anemia Anxiety disorder Black tarry stools Chronic renal insufficiency, stage III (moderate) Depression Diabetes type 2, uncontrolled Diarrhea Easy bruising Fatigue Former smoker Heartburn Hx TIA/stroke w/o resid Hypertension Inguinal hernia of right side without obstruction or gangrene Kidney stones L eye torn retina Macular degeneration Mini stroke Neuropathy Osteoarthritis Pseudobulbar affect no medical history Home Medications amlodipine 5 mg tablet 5 mg PO DAILY blood pressure #90 tabs 10/01/23 [Rx Last Taken Unknown] atorvastatin 20 mg tablet 20 mg PO DAILY cholesterol #90 tabs 10/02/23 [Rx Last Taken Unknown] escitalopram oxalate 10 mg tablet (Lexapro) 10 mg PO DAILY Anxiety #90 tabs 10/02/23 [Rx Last Taken Unknown] prednisone 20 mg tablet 40 mg (2 x 20 mg) PO DAILY back #20 tabs 11/07/23 [Rx Last Taken Unknown] tramadol 50 mg tablet 50 mg PO Q6H pain lower back 7 days #28 tabs 11/07/23 [Rx Last Taken Unknown] gabapentin 300 mg capsule 300 mg PO BID nerve pain 11/13/23 [History Last Taken Unknown] metformin 1,000 mg tablet 1,000 mg PO QHS diabetes 11/13/23 [History Last Taken Unknown] metformin 1,000 mg tablet 500 mg PO DAILY diabetes 11/13/23 [History Last Taken Unknown] omeprazole 20 mg tablet,delayed release 20 mg PO BID PRN heartburn 11/13/23 [History Last Taken Unknown] tamsulosin 0.4 mg capsule 0.4 mg PO QHS urine flow 11/13/23 [History Last Taken Unknown] Allergy/AdvReac Type Severity Reaction Status Date / Time lisinopril Allergy Severe raspy Verified 11/13/23 06:51 voice and cough Penicillins Allergy Anaphylaxis Verified 11/13/23 06:51 Sulfa (Sulfonamide Allergy Anaphylaxis Verified 11/13/23 06:51 Antibiotics) levofloxacin [From Levaquin] AdvReac Upset Verified 11/13/23 06:51 Stomach Family History Mother Diabetes Heart disease Hypertension CVA (cerebral vascular accident) Sister CVA (cerebral vascular accident) Heart disease Other High cholesterol Surgical History Hx laparoscopic cholecystectomy Previous back surgery S/P laparoscopic hernia repair Social History Smoking Status: Former smoker alcohol intake: never substance use type: does not use caffeine: Yes what type of physical activity do you participate in: none frequency: does not exercise ROS Constitutional Constitutional: Reports as per HPI Eyes Eyes: Reports systems reviewed and no addt'l complaints, except as documented ENT HEENT: Reports systems reviewed and no addt'l complaints, except as documented Cardiovascular Cardiovascular: Reports as per HPI Respiratory/Chest Respiratory/Chest: Reports as per HPI Gastrointestinal Gastrointestinal: Reports as per HPI Genitourinary Genitourinary: Reports as per HPI Musculoskeletal Musculoskeletal: Reports systems reviewed and no addt'l complaints, except as documented Integumentary Integumentary: Reports systems reviewed and no addt'l complaints, except as documented Neurologic Neurologic: Reports systems reviewed and no addt'l complaints, except as documented Psychiatric Psychiatric: Reports systems reviewed and no addt'l complaints, except as documented Endocrine Endocrinology: Reports as per HPI Hematologic/Lymphatic Hematologic/Lymphatic: Reports systems reviewed and no addt'l complaints, except as documented Allergic/Immunologic Allergic/Immunologic: Reports systems reviewed and no addt'l complaints, except as documented Physical Exam Const oriented x3 HEENT normocephalic Eyes EOMs intact bilaterally Neck Neck Narrative: JVD noted at the clavicle at 90 degrees. Chest inspection of chest normal Resp normal respiratory effort Auscultation: rales bilateral base and diminished lung sounds bilateral lower Cardio regular rate, regular rhythm, S1 normal heart sound, S2 normal heart sound, no rub and no gallops Heart Sounds: murmur systolic II/ soft left sternal border GI soft to palpation Extremity no pedal edema Skin no rashes or lesions noted Neuro Neuro Narrative: Alert and oriented x 3 Psych mental status grossly normal Risk Stratification Risk Stratification Applicable: Yes Age >/= 65: Yes >/= 3 CAD Risk Factors (HTN, HLD, DM, family hx of CAD, or current smoker): Yes Aspirin Use in the Past 7 Days: No Severe Angina (>/= episodes in 24 hours): Yes EKG ST Changes >/= 0.5mm: Yes Positive Cardiac Marker: Yes [id number] Risk Stratification Score: 5 KRZYSZTOF % Risk: 25% Risk Charges/Coding Visit Charges Inpatient E&M: 49543 Init Hosp L3 Objective Data Vital Signs: Vital Signs Temp Pulse Resp BP Pulse Ox O2 Del Method O2 Flow Rate 97.7 F L 110 H 18 183/103 H 95 Nasal Cannula 2 11/13/23 14:35 11/13/23 15:52 11/13/23 15:01 11/13/23 15:52 11/13/23 15:01 11/13/23 15:15 11/13/23 15:15 Oxygen Flow Rate (L/min) 2 Oxygen Delivery Method Nasal Cannula Weight: 156 lb 4.924 oz Body Mass Index (BMI) 22.4 Intake & Output: Intake and Output for Last 24 Hours 11/11/23 11/12/23 11/13/23 23:59 23:59 23:59 Intake Total 0 / 0 Balance 0 / 0 Lab / Micro Data 11/13/23 06:47 11/13/23 06:47 Labs: Laboratory Results - last 24 hr 11/13/23 06:47: WBC 9.2, RBC 3.74 L, Hgb 11.2 L, Hct 34.6 L, MCV 92.5, MCH 29.9, MCHC 32.4, RDW Std Deviation 45.9 H, RDW Coeff of Keith 13.5, Plt Count 289, MPV 10.0, Immature Gran % (Auto) 0.700, Neut % (Auto) 67.3, Lymph % (Auto) 19.7, [place] % (Auto) 9.0, Eos % (Auto) 2.6, Baso % (Auto) 0.7, Absolute Neuts (auto) 6.2, Absolute Lymphs (auto) 1.82, Nucleated RBC % 0, PT 13.5, INR 1.0, APTT 27.9, Sodium 140, Potassium 4.2, Chloride 108 H, Carbon Dioxide 20.0 L, Anion Gap 12, BUN 64 H, Creatinine 4.19 H, Estim Creat Clear Calc 15.49, Est GFR (MDRD) Af Amer 18 L, Est GFR (MDRD) Non-Af 15 L, BUN/Creatinine Ratio 15.3, Glucose 157 H, Calcium 8.6, Troponin I High Sens 1208 H*, B-Natriuretic Peptide 819.6 H 11/13/23 12:18: Troponin I High Sens 732 H* 11/13/23 13:18: POC Glucose 256 H Rhythm Strip Rhythm Strip: Sinus Rhythm Rate: 90 Cardiology Labs/Tests 11/13/23 06:47: WBC 9.2, RBC 3.74 L, Hgb 11.2 L, Hct 34.6 L, MCV 92.5, MCH 29.9, MCHC 32.4, Plt Count 289, MPV 10.0, Immature Gran % (Auto) 0.700, Neut % (Auto) 67.3, Lymph % (Auto) 19.7, [place] % (Auto) 9.0, Eos % (Auto) 2.6, Baso % (Auto) 0.7, Absolute Neuts (auto) 6.2, Nucleated RBC % 0, PT 13.5, INR 1.0, APTT 27.9, Sodium 140, Potassium 4.2, Chloride 108 H, Carbon Dioxide 20.0 L, Anion Gap 12, BUN 64 H, Creatinine 4.19 H, Est GFR (MDRD) Af Amer 18 L, Est GFR (MDRD) Non-Af 15 L, BUN/Creatinine Ratio 15.3, Glucose 157 H, Calcium 8.6, B-Natriuretic Peptide 819.6 H Rhythm: EKG: ECHO: Stress Test: Cardiac Cath: PCI: CT Surgery: Holter monitor: EPS: PPM: CXR: Chest CT Scan: Radiography Diagnostic Testing: Radiology Impression Chest X-Ray 11/13/23 06:55 IMPRESSION: 1. Hyperinflation consistent with COPD. 2. Mild interstitial prominence. Electronically Signed: Loy Madrid MD at 7:33 EDT ,
[2023-11-13] MEDS: 0.9% Saline Lock 10 ML Syringe IV (15:53)
[2023-11-13 16:00] LABS: Troponin-I HS 686 pg/mL (3.0-78.0)
[2023-11-13] MEDS: hydrALAZINE 25 MG Tablet PO ×2 (17:12→21:31)
[2023-11-13] MEDS: Insulin Lispro 100 UNIT/ML INSULN.PEN SC (17:22)
[2023-11-13 17:35] LABS: Bedside Glucose 255 mg/dL (74-106)
[2023-11-13 18:40] LABS: Urine Sodium 89 mmol/L (Not Establ.)
[2023-11-13 19:21] LABS: Troponin-I HS 1281 pg/mL (3.0-78.0)
[2023-11-13] MEDS: Atorvastatin Calcium 80 MG Tablet PO (21:30)
[2023-11-13] MEDS: Tamsulosin HCl 0.4 MG Capsule PO (21:59)
[2023-11-13] MEDS: Gabapentin 300 MG Capsule PO (21:59)
[2023-11-13 22:09] LABS: Partial Thromboplast Time 56.6 Seconds (24.1-36.2)
[2023-11-14] VITALS (14 sets, daily range): BP systolic 107–134; BP diastolic 51–66; PULSE 65–85; RESP 12–18; TEMP 36.4–36.8; O2SAT 93–98; BMI 22.4
[2023-11-14] MEDS: Nitroglycerin Oint 1 INCH PACKET TD ×4 (00:08→17:46)
[2023-11-14 04:19] LABS: Absolute Lymphocyte Count 1.01 X10^3/uL (0.83-4.51); Absolute Neutrophil Count 8.8 X10^3/uL (2.0-7.7); Basophil# 0.02 X10^3/uL; Basophil% 0.2 % (0-1); Eosinophil# 0.01 X10^3/uL; Eosinophils% 0.1 % (0-5); Hematocrit 28.6 % (40-54); Hemoglobin 9.4 g/dL (13.0-16.5); Lymphocyte # 1.01 X10^3/ul (0.83-4.51); Lymphocyte % 9.2 % (19-41); Mean Corp Hgb Conc 32.9 g/dL (32-36); Mean Corpuscular Volume 91.4 fL (80-94); Mean Platelet Vol. 10.1 fl (6.2-12.0); Monocyte# 1.02 X10^3/uL; Monocyte% 9.3 % (0-10); NRBC Flagged by Analyzer 0 % (0-5); Neutrophil # 8.84 X10^3/uL (2.7-7.7); Neutrophil % 80.6 % (47-70); Platelet Count 284 K/mm3 (150-450); RBC Distribution Width CV 13.6 % (11.6-14.6); RBC Distribution Width SD 45.4 fl (35.1-43.9); Red Blood Count 3.13 M/mm3 (4.6-6.2)
[2023-11-14 04:41] LABS: Partial Thromboplast Time 55.6 Seconds (24.1-36.2)
[2023-11-14 04:47] LABS: ALB/GLOB Ratio 0.8 RATIO (0.9-2.4); AST(SGOT) 16 U/L (15-37); Alanine Aminotransfer ALT/SGPT 15 U/L (16-61); Albumin, Serum 2.5 g/dL (3.2-5.0); Alkaline Phosphatase 55 U/L (45-117); Anion Gap 8 (5-15); BUN 71 mg/dL (7-18); BUN/Creat Ratio 16.2 RATIO (10-20); Chloride 109 mmol/L (98-107); Creatinine, Serum 4.37 mg/dL (0.70-1.30); EST Glomerular Filtration Rate 14 mL/min (>60); Est Glom Filt Rate - Afr Amer 17 mL/min (>60); Estimated Creatinine Clearance 14.44 ml/min; Globulin 3.1 g/dL (2.2-4.2); Glucose 199 mg/dL (74-106); Magnesium 1.9 mg/dL (1.6-2.6); Phosphorus 3.4 mg/dL (2.5-4.9); Potassium 4.5 mmol/L (3.5-5.1); Protein, Total 5.6 g/dL (6.4-8.2); Sodium Level 139 mmol/L (136-145); Thyroid Stim Hormone (TSH) 0.56 uIU/mL (0.358-3.74)
[2023-11-14 07:08] LABS: Bedside Glucose 142 mg/dL (74-106)
--- NOTE | 2023-11-14 08:22 | PCM.PN.CARD ---
Subjective Subjective The patient reports that his chest symptoms have completely resolved. His I's and O's were -300 cc however his creatinine continued to go up is 4.37. I reiterated with him that his insistence of not pursuing renal replacement therapy ties her hands as our ability to further evaluate his cardiovascular status. His echo is pending and that will give us some direction is the appropriate medical therapy. He is tolerating the hydralazine and nitrates as well as beta-veronica therapy and appears to be asymptomatic from a cardiovascular standpoint at this point. After further discussion with him this morning he seems to be softening on his stance against renal replacement therapy. I asked him to please discuss this in detail with the workers' compensation claims supervisor who will be seeing him today. He denies any significant PND orthopnea. Denies any recurrence of the chest symptoms that brought him to the hospital. Objective Data Vital Signs: Vital Signs Temp Pulse Resp BP Pulse Ox O2 Del Method O2 Flow Rate 97.6 F L 66 16 124/66 H 97 Room Air 2 11/14/23 05:00 11/14/23 06:31 11/14/23 05:00 11/14/23 06:31 11/14/23 05:00 11/14/23 05:00 11/13/23 23:00 Oxygen Flow Rate (L/min) 2 Oxygen Delivery Method Room Air Weight: 156 lb 8.451 oz Body Mass Index (BMI) 22.4 Intake & Output: Intake and Output for Last 24 Hours 11/12/23 11/13/23 11/14/23 23:59 23:59 23:59 Intake Total 240 / 880 640 / 640 Output Total 600 / 1200 900 / 900 Balance -360 / -320 -260 / -260 Lab / Micro Data Attestation: I reviewed the patient's lab results. 11/14/23 04:04 11/14/23 04:04 Labs: Laboratory Results - last 24 hr 11/13/23 06:47: PT 13.5, INR 1.0, APTT 27.9, Sodium 140, Potassium 4.2, Chloride 108 H, Carbon Dioxide 20.0 L, Anion Gap 12, BUN 64 H, Creatinine 4.19 H, Estim Creat Clear Calc 15.49, Est GFR (MDRD) Af Amer 18 L, Est GFR (MDRD) Non-Af 15 L, BUN/Creatinine Ratio 15.3, Glucose 157 H, Calcium 8.6, Troponin I High Sens 1208 H*, B-Natriuretic Peptide 819.6 H 11/13/23 12:18: Troponin I High Sens 732 H* 11/13/23 13:18: POC Glucose 256 H 11/13/23 14:45: Troponin I High Sens 686 H* 11/13/23 17:11: POC Glucose 255 H 11/13/23 17:26: Ur Random Sodium 89, Urine Creatinine 39.70 11/13/23 18:35: Troponin I High Sens 1281 H* 11/13/23 21:50: APTT 56.6 H 11/14/23 04:04: WBC 11.0, RBC 3.13 L, Hgb 9.4 L, Hct 28.6 L, MCV 91.4, MCH 30.0, MCHC 32.9, RDW Std Deviation 45.4 H, RDW Coeff of Keith 13.6, Plt Count 284, MPV 10.1, Immature Gran % (Auto) 0.600, Neut % (Auto) 80.6 H, Lymph % (Auto) 9.2 L, [place] % (Auto) 9.3, Eos % (Auto) 0.1, Baso % (Auto) 0.2, Absolute Neuts (auto) 8.8 H, Absolute Lymphs (auto) 1.01, Nucleated RBC % 0, APTT 55.6 H, Sodium 139, Potassium 4.5, Chloride 109 H, Carbon Dioxide 22.0, Anion Gap 8, BUN 71 H, Creatinine 4.37 H, Estim Creat Clear Calc 14.44, Est GFR (MDRD) Af Amer 17 L, Est GFR (MDRD) Non-Af 14 L, BUN/Creatinine Ratio 16.2, Glucose 199 H, Calcium 8.0 L, Phosphorus 3.4, Magnesium 1.9, Total Bilirubin 0.30, AST 16, ALT 15 L, Alkaline Phosphatase 55, Total Protein 5.6 L, Albumin 2.5 L, Globulin 3.1, Albumin/Globulin Ratio 0.8 L, TSH 0.56 11/14/23 06:43: POC Glucose 142 H Rhythm Strip Rhythm Strip: Sinus Rhythm Rate: 70 Cardiology Labs/Tests 11/13/23 06:47: PT 13.5, INR 1.0, APTT 27.9, Sodium 140, Potassium 4.2, Chloride 108 H, Carbon Dioxide 20.0 L, Anion Gap 12, BUN 64 H, Creatinine 4.19 H, Est GFR (MDRD) Af Amer 18 L, Est GFR (MDRD) Non-Af 15 L, BUN/Creatinine Ratio 15.3, Glucose 157 H, Calcium 8.6, B-Natriuretic Peptide 819.6 H 11/13/23 21:50: APTT 56.6 H 11/14/23 04:04: WBC 11.0, RBC 3.13 L, Hgb 9.4 L, Hct 28.6 L, MCV 91.4, MCH 30.0, MCHC 32.9, Plt Count 284, MPV 10.1, Immature Gran % (Auto) 0.600, Neut % (Auto) 80.6 H, Lymph % (Auto) 9.2 L, [place] % (Auto) 9.3, Eos % (Auto) 0.1, Baso % (Auto) 0.2, Absolute Neuts (auto) 8.8 H, Nucleated RBC % 0, APTT 55.6 H, Sodium 139, Potassium 4.5, Chloride 109 H, Carbon Dioxide 22.0, Anion Gap 8, BUN 71 H, Creatinine 4.37 H, Est GFR (MDRD) Af Amer 17 L, Est GFR (MDRD) Non-Af 14 L, BUN/Creatinine Ratio 16.2, Glucose 199 H, Calcium 8.0 L, Phosphorus 3.4, Magnesium 1.9, Total Bilirubin 0.30 Rhythm: EKG: ECHO: Stress Test: Cardiac Cath: PCI: CT Surgery: Holter monitor: EPS: PPM: CXR: Chest CT Scan: Radiography Diagnostic Testing: Radiology Impression Renal Ultrasound 11/13/23 13:04 IMPRESSION: 1. Simple appearing bilateral renal cysts Electronically Signed: Yash Waters MD at 2:09 EDT , Physical Exam Const oriented x3 HEENT head/scalp atraumatic Eyes EOMs intact bilaterally Neck no JVD Carotids: Negative for bruit Chest inspection of chest normal Resp normal respiratory effort and clear to auscultation bilaterally Cardio regular rate, regular rhythm, S1 normal heart sound, S2 normal heart sound, no murmurs, no rub and no gallops GI soft to palpation Extremity no pedal edema Skin no rashes or lesions noted Neuro Neuro Narrative: Alert and oriented x 3 Psych mental status grossly normal Assessment & Plan Assessment/Plan (1) Non-STEMI (non-ST elevated myocardial infarction): PLAN: The patient is enzymes are consistent with a non-STEMI. His creatinine continues to go up 4.37 and he is resistant to renal replacement therapy. He has not had no recurrence of his shortness of breath or chest tightness. His blood pressures been much better controlled on the combination of hydralazine nitrates and beta-veronica. His O2 sat is good on 2 L nasal cannula. Results of the 2D echo are pending at this time. And we will await further evaluation by the nephrology team to determine long-term management and response to his decision against renal replacement therapy. This morning he did seem to soften his stance but I recommend strongly that he reconsider this and discuss it in detail with the workers' compensation claims supervisor. (2) Iovsc-ob-mlgyhoi kidney injury: QUALIFIERS: Acute renal failure type: unspecified Chronic kidney disease stage: stage 4 (severe) Qualified Code(s): N17.9 - Acute kidney failure, unspecified; N18.4 - Chronic kidney disease, stage 4 (severe) PLAN: Nephrology to see the patient and discussed renal replacement therapy with him later today. His creatinine did increase up to 4.37 with a negative RUT of 320. This gives him a creatinine clearance estimated at 14. (3) Shortness of breath at rest: PLAN: The patient shortness of breath has resolved on supplemental oxygen and improving his blood pressure. PLAN: Plan 1. Will defer further decision on invasive evaluation until the patient makes a decision about renal replacement therapy. 2. Continue the current medical regiment aimed at decreasing his afterload and and decreasing his myocardial oxygen demand to try to treat him medically. Charges/Coding Visit Charges Inpatient E&M: 96306 Subs Hosp L3
[2023-11-14] MEDS: hydrALAZINE 25 MG Tablet PO ×3 (08:40→21:35)
[2023-11-14] MEDS: Aspirin E.C. 81 MG Tablet PO (08:40)
[2023-11-14] MEDS: Escitalopram Oxalate 10 MG Tablet PO (08:41)
[2023-11-14] MEDS: Metoprolol Tartrate 50 MG Tablet PO ×2 (08:41→21:35)
[2023-11-14] MEDS: Gabapentin 300 MG Capsule PO ×2 (08:45→21:34)
[2023-11-14 08:47] LABS: Urea Nitrogen, Urine 333 mg/dL (NO RANGE EST.)
[2023-11-14 10:11] LABS: Hemoglobin 10.7 g/dL (13.0-16.5)
[2023-11-14 10:15] LABS: Partial Thromboplast Time 50.6 Seconds (24.1-36.2)
[2023-11-14] MEDS: Insulin Lispro 100 UNIT/ML INSULN.PEN SC (11:17)
[2023-11-14] MEDS: Insulin Glargine-YFGN 100 UNIT/ML Pen 10 UNIT SC (11:17)
--- NOTE | 2023-11-14 11:30 | CASEMGMT ---
RN?CM?CROSS CUT SAW OPERATOR?CM?to room to meet with patient for initial transition planning/care coordination?assessment.?RN?CM?introduced self and role at [facility].? Pt voices understanding and consents to?assessment?at this time.? Daughter, Ashleigh, @ bedside. Pt resting in bed in no distress at this time.? Pt is A/O at this time and answers all questions appropriately.?? Care providers, pharmacy, and demographics verified/updated at this time. PCP: MICHELLE Gabriel Specialists: consumer [facility] in [place] Preferred Pharmacy: [facility] Retail @ discharge Insurance: MCR, [place] Prescription Benefit:?yes LNOK: Dtr, Ashleigh. Son, Baljeet. , Leela Sanchez, has Parkison's and is having memory-issues. Discussed Alzheimer's support group and pt/dtr interested in referral. Referral form completed and faxed. Dtr provided w/their contact info. Living Arrangements: Lives w/his , Leela Sanchez and his [id number] in one-story home w/2 steps to enter. Pt helps to take care of both his and [id number]-ruo. Family member staying w/them currently to care for them while pt is @ [facility]. Transportation:?Pt states drives self and states no transportation concerns at this time.? DME: Has the following DME:?functioning glucometer. He states he is out of strips and does not think there are refills. He would like a script for this. Ashleigh states pt's BS's are out of whack and that pt does not check them often-enough. Pt states he knows what symptoms to watch for if they are high, so he doesn't feel the need to check them ahead of time. Educated on importance of checking so high BS's can be detected early on before symptoms develop. Discussed CCN and Ashleigh interested in same. Pt agreeable. Order placed. DEANNA ArceU RN HAO made aware. Pt states no need for further DME at this time.? HHC/SNF: No hx of either. Has done OP therapy after back surgeries. No needs identified. Pt wishes to return home and states has no concerns with going home at time of discharge.? CM?to follow for any further discharge planning/needs.? Pt and dtr voice no further concerns/needs at this time.? Advised them to ask for?CM?if any further questions/concerns/needs arise.? They voice understanding. PLAN:??Home. CCN referral placed. Pt would like script for glucometer strips. Follow for possible anti-coag. Anna BSN?RN?CM
[2023-11-14 11:40] LABS: Bedside Glucose 166 mg/dL (74-106)
--- NOTE | 2023-11-14 14:10 | PCM.PN.HOSP ---
Reason for Visit Reason for Visit: Chest pain Subjective Subjective Chest pain overnight. Blood pressure control is better with the adjustments we have made in his antihypertensive regimen. For understandable reasons, cardiology does not want to do a cardiac catheterization and give the patient contrast with the way his renal function is right now if he is adamant that he is not having dialysis. I discussed this further with both he and his daughter who was at the bedside. He is now more amenable to dialysis and states that he would pursue that if need be. He has no need for current dialysis based on his labs. Still awaiting nephrology consult. I did let cardiology know that he would be amenable to dialysis and would like to proceed with a cardiac catheterization. This will be arranged for tomorrow. He will be n.p.o. after midnight. Objective Data Objective Data Vital Signs: Vital Signs Temp Pulse Resp BP Pulse Ox O2 Del Method O2 Flow Rate 98.2 F 70 14 107/53 L 95 Room Air 2 11/14/23 11:11/14/23 11:11/14/23 11:11/14/23 11:11/14/23 11:11/14/23 11:11/14/23 07:55 Oxygen Flow Rate (L/min) 2 Oxygen Delivery Method Room Air Weight: 71 kg Body Mass Index (BMI) 22.4 Intake & Output: Intake and Output for Last 24 Hours 11/12/23 11/13/23 11/14/23 23:59 23:59 23:59 Intake Total 240 / 880 1488.4 / 1488.4 Output Total 600 / 1200 1150 / 1150 Balance -360 / -320 338.4 / 338.4 Lab / Micro Data 11/14/23 09:54 11/14/23 04:04 Labs: Laboratory Results - last 24 hr 11/13/23 14:45: Troponin I High Sens 686 H* 11/13/23 17:11: POC Glucose 255 H 11/13/23 17:26: Ur Random Sodium 89, Urine Creatinine 39.70, Urine Urea Nitrogen 333 11/13/23 18:35: Troponin I High Sens 1281 H* 11/13/23 21:50: APTT 56.6 H 11/14/23 04:04: WBC 11.0, RBC 3.13 L, Hgb 9.4 L, Hct 28.6 L, MCV 91.4, MCH 30.0, MCHC 32.9, RDW Std Deviation 45.4 H, RDW Coeff of Keith 13.6, Plt Count 284, MPV 10.1, Immature Gran % (Auto) 0.600, Neut % (Auto) 80.6 H, Lymph % (Auto) 9.2 L, [place] % (Auto) 9.3, Eos % (Auto) 0.1, Baso % (Auto) 0.2, Absolute Neuts (auto) 8.8 H, Absolute Lymphs (auto) 1.01, Nucleated RBC % 0, APTT 55.6 H, Sodium 139, Potassium 4.5, Chloride 109 H, Carbon Dioxide 22.0, Anion Gap 8, BUN 71 H, Creatinine 4.37 H, Estim Creat Clear Calc 14.44, Est GFR (MDRD) Af Amer 17 L, Est GFR (MDRD) Non-Af 14 L, BUN/Creatinine Ratio 16.2, Glucose 199 H, Calcium 8.0 L, Phosphorus 3.4, Magnesium 1.9, Total Bilirubin 0.30, AST 16, ALT 15 L, Alkaline Phosphatase 55, Total Protein 5.6 L, Albumin 2.5 L, Globulin 3.1, Albumin/Globulin Ratio 0.8 L, TSH 0.56 11/14/23 06:43: POC Glucose 142 H 11/14/23 09:54: Hgb 10.7 L, APTT 50.6 H 11/14/23 11:15: POC Glucose 166 H Radiography Diagnostic Testing: Radiology Impression Renal Ultrasound 11/13/23 13:04 IMPRESSION: 1. Simple appearing bilateral renal cysts Electronically Signed: Yash Waters MD at 2:09 EDT , Echocardiogram 11/13/23 14:19 Interpretation Summary The estimated ejection fraction is 45 %. Mild hypokinesis of the apex and anterior wall Mild (1+) mitral valve insufficiency. Stage 1 diastolic dysfunction. Ordering Physician: Amanda Frank Performed By: Yaritza Metz RDCS and Student Rhythm Strip Rhythm Strip: Sinus Rhythm Rate: 70 Physical Exam Const alert, oriented x3, no apparent distress, average body habitus and well nourished Constitutional Narrative: Very pleasant, older, white male, sitting up in bed, daughter at bedside, currently appears comfortable, nontoxic General Appearance: cooperative HEENT normocephalic, head/scalp atraumatic, hearing grossly normal bilaterally and moist oral mucous membranes HEENT Narrative: Mallampati 2, no thrush Eyes PERRL, EOMs intact bilaterally and conjunctivae normal Eyes Narrative: No scleral icterus Neck no lymphadenopathy and supple Neck Narrative: Trachea midline, no thyroid enlargement Resp normal respiratory effort, no retractions, no use of accessory muscles and clear to auscultation bilaterally Resp Narrative: Diminished but clear Auscultation: Negative for rales, rhonchi or wheezes Cardio regular rate, regular rhythm, S1 normal heart sound, S2 normal heart sound, no rub, no gallops and no clicks; Negative for no murmurs Cardio Narrative: Murmur has resolved-this may have been an S4 gallop as auscultation was difficult in the emergency department due to noise GI normal to inspection, nondistended, normoactive bowel sounds, soft to palpation and non-tender Extremity no clubbing, cyanosis or edema Extremity Narrative: Pedal pulses are 2+, radial pulses are 2+ Skin no rashes or lesions noted, no wounds, skin turgor normal, no jaundice, no petechiae and no mottling Neuro oriented x3, moves all extremities and no focal motor deficits Speech: speech normal Psych affect normal Psych Narrative: Very pleasant, interacts appropriately Assessment & Plan Assessment/Plan (1) Yyrfo-wi-kdyvnxz kidney injury: QUALIFIERS: Acute renal failure type: unspecified Chronic kidney disease stage: stage 4 (severe) Qualified Code(s): N17.9 - Acute kidney failure, unspecified; N18.4 - Chronic kidney disease, stage 4 (severe) (2) Non-STEMI (non-ST elevated myocardial infarction): (3) Elevated brain natriuretic peptide (BNP) level: (4) Unstable angina: PLAN: Plan Unstable angina/elevated troponin -Highly anticipate NSTEMI -Patient did have ST depression anterior lateral leads on his initial EKG which improved after Nitropaste -Continue Nitropaste -Continue aspirin 81 mg daily -Continue heparin drip -Continue metoprolol 50 mg p.o. twice daily -Echocardiogram was done and demonstrated an EF of 45% with mild hypokinesis at the apex and the anterior wall, 1+ mitral valve insufficiency, stage I diastolic dysfunction -Recent lipids were obtained in September at which time he had total cholesterol of 264/LDL 138/HDL 54/triglycerides 360 -Continue atorvastatin but increase to 80 mg -Recent hemoglobin A1c in September was 6.6 -Cardiology is following-appreciate input -Plan is for cardiac catheterization tomorrow as patient has agreed that he would pursue dialysis if contrast caused further deterioration of his kidney function Cardiomyopathy -EF is 45% -Suspect this will be ischemic -Cardiac catheterization planned for tomorrow -Continue metoprolol ZOFIA on CKD stage IV/history of nephrolithiasis -Baseline serum creatinine had been running between 2 and 2.5 however most recent labs from September his serum creatinine was 3.47 -At 4.19 on presentation but was given some diuresis yesterday due to elevated BNP and is 4.37 today -Fe urea was 54.9/FeNa was 4.1 to - -Consistent with intrinsic renal disease -Renal ultrasound shows bilateral renal cysts but is otherwise unremarkable -Check renal Dopplers -Avoid nephrotoxins as able -Nephrology consult is pending Chronic anemia -Likely related to chronic renal disease -Hemoglobin is stable -Monitor Hypertension -Add metoprolol 50 mg p.o. twice daily -Continue Nitropaste -Blood pressure control is much better -Continue to trend Hyperlipidemia -Uncontrolled on most recent lab from September -Continue atorvastatin 80 mg DM-2 -Hold metformin due to renal dysfunction -Blood sugars are markedly elevated and will start Lantus 10 units -Will need alternative at discharge next-most recent hemoglobin A1c was 6.6 from September indicating good glycemic control at baseline GERD -Continue PPI BPH with obstruction/elevated PSA -Continue home Flomax -Outpatient follow-up as instructed by PCP History of TIA -Patient is not on any aspirin at baseline -Baby aspirin started on admission due to admitting diagnosis History of tobacco abuse -Encourage ongoing cessation Osteoarthritis -As needed Tylenol DVT prophylaxis -Heparin drip for now CODE STATUS -DNR CCA okay for short-term inpatient as per discussion in the emergency department prior to admission with his daughter at the bedside -Patient is aware that CODE STATUS will be revoked in the event that he does need cardiac catheterization and is agreeable Charges/Coding Visit Charges Inpatient E&M: 95209 Subs Hosp L3
--- NOTE | 2023-11-14 14:53 | RDU_ITS ---
Reason For Study: CKD Right Renal Artery Left Renal Artery Right renal artery ostium 86.4/12.4 Left renal artery ostium 416.8/98.9 RSV/EDV. PSV/EDV. Right renal artery proximal Left renal artery proximal PSV/EDV 89.7/11.6 PSV/EDV. 449.1/85.7 . Right renal artery mid 95.2/11.6 Left renal artery mid 257.4/41.6 PSV/EDV. PSV/EDV . Right renal artery distal 91.9/11.7 Left renal artery distal 131.9/33.7 PSV/EDV. PSV/EDV. Right RAR 2.2. Left RAR 10.2. Right Renal Parenchyma Left Renal Parenchyma Upper Pole Medula 26.0/4.6 PSV/EDV. Left upper pole medulla 14.1/4.9 Right upper pole medulla EDR .18 . PSV/EDV . Right upper pole medulla R.I. .82 . Left upper pole medulla EDR .34 . Upper Dario Cortx 11.2/3.3 PSV/EDV. Left upper pole medulla R.I. .66 . Right upper pole cortex EDR .3 . UP Cortex 8.5/5.5 PSV/EDV. Right upper pole cortex R.I. .7 . Left upper pole cortex EDR .64 . Right lower Pole medulla 16.0/3.8 Left upper pole cortex R.I. .36 . PSV/EDV . Left lower Pole medulla 14.1/4.9 Right lower pole medulla EDR .23 . PSV/EDV . Right lower pole medulla R.I. .77 . Left lower pole medulla EDR .34 . Lower Pole Cortex 16.0/5.1 PSV/EDV. Left lower pole medulla R.I. .66 . Right lower pole cortex EDR .32 . Lower Pole Cortx 8.5/5.5 PSV/EDV. Right lower pole cortex R.I. .68 . Left lower pole cortex EDR .64 . Right Renal Hilar Left lower pole cortex R.I. .36 . Right Hilar avg 32.5/5.5 PSV/EDV. Left Renal Hilar Right hilar acceleration time 50 LT Hilar avg 15.9/7.3 PSV/EDV . m/sec. Left hilar acceleration time 80 Right Renal Dimensions m/sec. Right kidney size 12.1 cm . Left Renal Dimensions Right cortical dimension 1.0 cm . Left kidney size 9.5 cm . Hypoechoic area on lower pole Left cortical dimension 1.21 cm . cortex measuring 1.41 x 1.95 cm. Area is nonvascular. Aorta Proximal abdominal aorta 1.27 x 1.46 cm . Proximal abdominal aorta peak systolic velocity is 44.1 cm/sec . Distal abdominal aorta 1.23 x 1.48 cm . Distal abdominal aorta peak systolic velocity is 35.4 cm/sec . Normal renal veins bilat. VL/Renal Artery Duplex Ultrasound Interpretation Summary Right renal artery patent with normal velocities and no evidence of stenosis. Left renal artery patent with > 60% stenosis. Right renal vein patent. Left renal vein patent. Right kidney normal in size. Left kidney diminshed in size. Ordering Physician: Amanda Frank Performed By: Grayson Becerra RVT
--- NOTE | 2023-11-14 15:16 | CON.PCM.RE_ITS ---
Assessment & Plan Assessment/Plan (1) ZOFIA (acute kidney injury): (2) CKD (chronic kidney disease) stage 4, GFR 15-29 ml/min: (3) Non-STEMI (non-ST elevated myocardial infarction): PLAN: Plan This is a very pleasant 78-year-old male with past medical history significant for diabetes mellitus type 2 (uncontrolled in past) and hypertension who presented to emergency room yesterday with complaints of chest pain and shortness of breath. He received one-time dose of Lasix in the emergency room. Noted to have detectable troponins, cardiology consulted. Patient was admitted for further evaluation and treatment. Nephrology consulted as patient does have history of chronic kidney disease. He has not seen a sole blacker in some years. In reviewing past creatinine trends: 2016 baseline creatinine ranging 1.5 to 1.7 mg/dL, 2021 creatinine ranging around 2.3 mg/dL, estimated GFR 27 to 30 mL/min, and 2022 creatinine ranging 2.6 mg/dL, estimated GFR 25 mL/min. Patient's lab work on October 01, 2023 creatinine 3.47 mg/dL, estimated GFR 18 mL/min. Yesterday in the emergency room patient's creatinine 4.19 and today his creatinine slightly increased to 4.37 mg/dL. January 13, 2021 urine protein creatinine ratio 963 mg/g. Patient has had evidence of chronic kidney disease at least for 7 years. Quite possibly CKD secondary to diabetic nephropathy and hypertensive nephrosclerosis. Last Hemoglobin A1c in September 2023 6.6%, before that A1c was in the 7 range. In 2020/2021 A1c ranging 8 to greater than 14%. Patient likely has had some progression of CKD over the past few years. Baseline creatinine is unknown, possibly around 3.5 range. Creatinine of 4.19 on admission possibly ZOFIA from hemodynamics, elevated blood pressure, possible component from cardiorenal syndrome physiology versus possible progression of CKD. Patient has been seen by cardiology and is in agreement with moving forward with cardiac catheterization which will be done tomorrow morning. Patient understands that there is risk of contrast affecting kidney function to the point of needing hemodialysis. He is in agreement with undergoing heart catheterization with the understanding should kidney function worsen he may need hemodialysis. Patient's echo showed EF 45%, mild mitral valve insufficiency, stage I diastolic dysfunction. Patient states he had stated in past should he need dialysis he would not pursue dialysis however after lengthy conversation today with patient and his daughter patient is now in agreement with undergoing hemodialysis should kidney function worsen to point of needing NATIONAL ACCOUNT DIRECTOR started. We will check urine protein creatinine ratio. Renal ultrasound did not show any hydronephrosis. We will check UA, SPEP and UPEP. Recommend gentle IV fluids few hours before heart catheterization. He is not on any diuretics now. Discussed nephrology plan with Dr. Bull. Labs ordered for the morning. Recommend off metformin even at time of discharge. At this time there is no acute indication for renal replacement therapy, volume status acceptable, patient appears near euvolemic. Potassium and acid-base normal. Patient is nonoliguric. Further orders forthcoming as hospitalization evolves, thank you for allowing us to participate in the care of Mr. Mckeon. HPI Consult Data Date of Consult: 11/14/23 HPI Narrative HPI Narrative: JOSE JOHN, is a 78 M with past medical history significant for diabetes mellitus type 2, hypertension, depression/anxiety, osteoarthritis who presented to the emergency room yesterday with complaints of chest pain and shortness of breath. On initial presentation blood pressure was 169/91, oxygen saturations 95% on room air. Chest x-ray consistent with COPD and mild interstitial prominence, no signs of volume overload. Patient did receive a one-time dose of IV Lasix in the emergency room. BNP elevated 819, initial troponin 1208. Patient was admitted for further evaluation and treatment. Nephrology consulted as patient has have history of CKD. Patient reports that he was seen by Dr. Pee Frank years ago but since then has not had nephrology care. Patient denies any recent nausea, vomiting or diarrhea. He does report prior to presenting to the emergency room he has been taking a few doses of ibuprofen for about 4 days for back pain. Patient states normally takes Tylenol for pain. Denies any new medications. Denies hematuria or dysuria. Denies arthralgias or rash. [facility] Medical History Abdominal pain Anemia Anxiety disorder Black tarry stools Chronic renal insufficiency, stage III (moderate) Depression Diabetes type 2, uncontrolled Diarrhea Easy bruising Fatigue Former smoker Heartburn Hx TIA/stroke w/o resid Hypertension Inguinal hernia of right side without obstruction or gangrene Kidney stones L eye torn retina Macular degeneration Mini stroke Neuropathy Osteoarthritis Pseudobulbar affect Home Medications amlodipine 5 mg tablet 5 mg PO DAILY blood pressure #90 tabs 10/01/23 [Rx Last Taken Unknown] atorvastatin 20 mg tablet 20 mg PO DAILY cholesterol #90 tabs 10/02/23 [Rx Last Taken Unknown] escitalopram oxalate 10 mg tablet (Lexapro) 10 mg PO DAILY Anxiety #90 tabs 10/02/23 [Rx Last Taken Unknown] prednisone 20 mg tablet 40 mg (2 x 20 mg) PO DAILY back #20 tabs 11/07/23 [Rx Last Taken Unknown] tramadol 50 mg tablet 50 mg PO Q6H pain lower back 7 days #28 tabs 11/07/23 [Rx Last Taken Unknown] gabapentin 300 mg capsule 300 mg PO BID nerve pain 11/13/23 [History Last Taken Unknown] metformin 1,000 mg tablet 1,000 mg PO QHS diabetes 11/13/23 [History Last Taken Unknown] metformin 1,000 mg tablet 500 mg PO DAILY diabetes 11/13/23 [History Last Taken Unknown] omeprazole 20 mg tablet,delayed release 20 mg PO BID PRN heartburn 11/13/23 [History Last Taken Unknown] tamsulosin 0.4 mg capsule 0.4 mg PO QHS urine flow 11/13/23 [History Last Taken Unknown] Allergy/AdvReac Type Severity Reaction Status Date / Time lisinopril Allergy Severe raspy Verified 11/13/23 06:51 voice and cough Penicillins Allergy Anaphylaxis Verified 11/13/23 06:51 Sulfa (Sulfonamide Allergy Anaphylaxis Verified 11/13/23 06:51 Antibiotics) levofloxacin [From Levaquin] AdvReac Upset Verified 11/13/23 06:51 Stomach Family History Mother Diabetes Heart disease Hypertension CVA (cerebral vascular accident) Sister CVA (cerebral vascular accident) Heart disease Other High cholesterol Surgical History Hx laparoscopic cholecystectomy Previous back surgery S/P laparoscopic hernia repair Social History Smoking Status: Former smoker alcohol intake: never substance use type: does not use caffeine: Yes what type of physical activity do you participate in: none frequency: does not exercise ROS ROS Narrative As in HPI and past medical history Physical Exam Narrative Alert and orient x 3, no apparent distress S1, S2, RRR lung sounds clear anteriorly, no wheezes, rhonchi rales Abdomen soft, nontender No edema Lab / Micro Data 11/14/23 09:54 11/14/23 04:04 Labs: Laboratory Results - last 24 hr 11/13/23 14:45: Troponin I High Sens 686 H* 11/13/23 17:11: POC Glucose 255 H 11/13/23 17:26: Ur Random Sodium 89, Urine Creatinine 39.70, Urine Urea Nitrogen 333 11/13/23 18:35: Troponin I High Sens 1281 H* 11/13/23 21:50: APTT 56.6 H 11/14/23 04:04: WBC 11.0, RBC 3.13 L, Hgb 9.4 L, Hct 28.6 L, MCV 91.4, MCH 30.0, MCHC 32.9, RDW Std Deviation 45.4 H, RDW Coeff of Keith 13.6, Plt Count 284, MPV 10.1, Immature Gran % (Auto) 0.600, Neut % (Auto) 80.6 H, Lymph % (Auto) 9.2 L, [place] % (Auto) 9.3, Eos % (Auto) 0.1, Baso % (Auto) 0.2, Absolute Neuts (auto) 8.8 H, Absolute Lymphs (auto) 1.01, Nucleated RBC % 0, APTT 55.6 H, Sodium 139, Potassium 4.5, Chloride 109 H, Carbon Dioxide 22.0, Anion Gap 8, BUN 71 H, Creatinine 4.37 H, Estim Creat Clear Calc 14.44, Est GFR (MDRD) Af Amer 17 L, Est GFR (MDRD) Non-Af 14 L, BUN/Creatinine Ratio 16.2, Glucose 199 H, Calcium 8.0 L, Phosphorus 3.4, Magnesium 1.9, Total Bilirubin 0.30, AST 16, ALT 15 L, Alkaline Phosphatase 55, Total Protein 5.6 L, Albumin 2.5 L, Globulin 3.1, Albumin/Globulin Ratio 0.8 L, TSH 0.56 11/14/23 06:43: POC Glucose 142 H 11/14/23 09:54: Hgb 10.7 L, APTT 50.6 H 11/14/23 11:15: POC Glucose 166 H Rhythm Strip Rhythm Strip: Sinus Rhythm Rate: 70 Imaging Radiology Impression Renal Ultrasound 11/13/23 13:04 IMPRESSION: 1. Simple appearing bilateral renal cysts Electronically Signed: Yash Waters MD at 2:09 EDT , Echocardiogram 11/13/23 14:19 Interpretation Summary The estimated ejection fraction is 45 %. Mild hypokinesis of the apex and anterior wall Mild (1+) mitral valve insufficiency. Stage 1 diastolic dysfunction. Ordering Physician: Amanda Frank Performed By: Yaritza Metz RDCS and Student
[2023-11-14 17:41] LABS: Partial Thromboplast Time 51.4 Seconds (24.1-36.2)
[2023-11-14 18:07] LABS: Bedside Glucose 139 mg/dL (74-106)
[2023-11-14] MEDS: HEPARIN/D5w 25,000 UNITS 25,000 UNITS/250 ML IV.SOLN. 10 UNITS CONT INF (18:12)
[2023-11-14] MEDS: Atorvastatin Calcium 80 MG Tablet PO (21:35)
[2023-11-14] MEDS: Tamsulosin HCl 0.4 MG Capsule PO (21:35)
[2023-11-14 22:01] LABS: Bedside Glucose 200 mg/dL (74-106)
[2023-11-15] VITALS (17 sets, daily range): BP systolic 105–145; BP diastolic 57–114; PULSE 57–65; RESP 12–18; TEMP 36.1–36.7; O2SAT 92–97; BMI 22.7
[2023-11-15] MEDS: Nitroglycerin Oint 1 INCH PACKET TD ×3 (00:15→11:18)
[2023-11-15 00:37] LABS: Bacteria 0 SEEN /hpf (None Seen); Mucous, Urine 0 SEEN /hpf (<or=2+); Squamous Epithelial Cells - UA 0 SEEN /hpf (0-5)
[2023-11-15 00:40] LABS: Color, Urine Yellow (Yellow); Glucose, Dipstick 100 mg/dl (Normal); Ketone-Dipstick Negative (Negative); Leukocyte Esterase-Dipstick 100 /ul (Negative); Nitrite-Dipstick Negative (Negative); Occult Blood-Urine 10 /ul (Negative); Protein-Dipstick 100 mg/dl (Negative); Urine Bilirubin Dipstick Negative (Negative); Urine Clarity Clear (Clear); Urine Urobilinogen Normal (Normal)
[2023-11-15 00:47] LABS: Partial Thromboplast Time 68.6 Seconds (24.1-36.2)
[2023-11-15 01:13] LABS: Red Blood Cells-Urine 0-5 SEEN /hpf (0-5); White Blood Cells 0-5 SEEN /hpf (0-5)
[2023-11-15 01:36] LABS: Protein, Urine (Random) 1145.9 mg/dL (<11.9); Protein:Creat Ratio 11018 mg/g CRE (0-200)
[2023-11-15] MEDS: 0.9% Normal Saline (1000mL) 1,000 ML 75 ML IV (02:55)
--- NOTE | 2023-11-15 05:55 | EKG12_ITS ---
Test Reason : PRE OP Blood Pressure : / mmHG Vent. Rate : 061 BPM Atrial Rate : 061 BPM P-R Int : 128 ms QRS Dur : 102 ms QT Int : 436 ms P-R-T Axes : 042 074 235 degrees QTc Int : 438 ms Sinus rhythm with marked sinus arrhythmia ST & T wave abnormality, consider lateral ischemia Abnormal ECG Confirmed by Loy Bull ([id number]), desk editor LEMUEL HENDERSON ([id number]) on 11/15/2023 8:28:50 AM Referred By: Confirmed By:Loy Bull
[2023-11-15] MEDS: hydrALAZINE 25 MG Tablet PO ×2 (05:57→13:31)
[2023-11-15] MEDS: Aspirin E.C. 81 MG Tablet PO (05:58)
[2023-11-15] MEDS: Metoprolol Tartrate 50 MG Tablet PO (05:59)
[2023-11-15 07:51] LABS: Partial Thromboplast Time 66.2 Seconds (24.1-36.2)
[2023-11-15 08:58] LABS: Anion Gap 6 (5-15); BUN 80 mg/dL (7-18); BUN/Creat Ratio 17.6 RATIO (10-20); Calcium,Total 8.5 mg/dL (8.5-10.1); Chloride 111 mmol/L (98-107); Creatinine, Serum 4.54 mg/dL (0.70-1.30); EST Glomerular Filtration Rate 13 mL/min (>60); Est Glom Filt Rate - Afr Amer 16 mL/min (>60); Estimated Creatinine Clearance 14.06 ml/min; Glucose 146 mg/dL (74-106); Potassium 3.9 mmol/L (3.5-5.1); Sodium Level 138 mmol/L (136-145)
--- NOTE | 2023-11-15 09:07 | CASEMGMT ---
RN CM NOTE: [facility]. They do not have anything on file for glucometer supplies/test strips at all. Call also placed to [facility] and they have a script on file from 12/2021 which has . FRANKLIN Arce RN CM, made aware. Anna TIAN RN CM
[2023-11-15] MEDS: Insulin Glargine-YFGN 100 UNIT/ML Pen 10 UNIT SC (11:16)
[2023-11-15] MEDS: Escitalopram Oxalate 10 MG Tablet PO (11:18)
[2023-11-15] MEDS: Gabapentin 300 MG Capsule PO (11:26)
[2023-11-15 11:33] LABS: Bedside Glucose 121 mg/dL (74-106)
[2023-11-15 11:38] LABS: Bedside Glucose 146 mg/dL (74-106)
--- NOTE | 2023-11-15 12:48 | PCM.DC.SUM ---
Providers Date of Admission: 11/13/23 Date of Discharge: 11/15/23 Primary Care Physician: ACE Cook Consultations 11/13/23 14:19 Consult: Cardiology Routine Consulting Provider: Loy Bull Reason for Consult: NSTEMI EMERGENT Consult: No Notified: Yes Date Notified: 11/13/23 Time Notified: 12:57 Method of Notification: ED Physician Initiated Consult: Nephrology Routine Consulting Provider: Jakob Allen Reason for Consult: ZOFIA on CKD with NSTEMI EMERGENT Consult: No Notified: Yes Date Notified: 11/13/23 Time Notified: 14:26 Method of Notification: Answering Service Reason For Visit: NSTEMI Diagnosis Discharge Diagnosis (1) ZFOIA (acute kidney injury): Status: Acute Code(s): N17.9 - Acute kidney failure, unspecified (2) CKD (chronic kidney disease) stage 4, GFR 15-29 ml/min: Status: Chronic Code(s): N18.4 - Chronic kidney disease, stage 4 (severe) (3) Non-STEMI (non-ST elevated myocardial infarction): Status: Acute Code(s): I21.4 - Non-ST elevation (NSTEMI) myocardial infarction Medications at Discharge Home Medications amlodipine 5 mg tablet 5 mg PO DAILY blood pressure #90 tabs 10/01/23 atorvastatin 20 mg tablet 20 mg PO DAILY cholesterol #90 tabs 10/02/23 escitalopram oxalate 10 mg tablet (Lexapro) 10 mg PO DAILY Anxiety #90 tabs 10/02/23 prednisone 20 mg tablet 40 mg (2 x 20 mg) PO DAILY back #20 tabs 11/07/23 tramadol 50 mg tablet 50 mg PO Q6H pain lower back 7 days #28 tabs 11/07/23 gabapentin 300 mg capsule 300 mg PO BID nerve pain 11/13/23 metformin 1,000 mg tablet 1,000 mg PO QHS diabetes 11/13/23 metformin 1,000 mg tablet 500 mg PO DAILY diabetes 11/13/23 omeprazole 20 mg tablet,delayed release 20 mg PO BID PRN heartburn 11/13/23 tamsulosin 0.4 mg capsule 0.4 mg PO QHS urine flow 11/13/23 Hospital Course Operations None Procedures 2-D Echocardiogram, Cardiac catheterization, EKG and - (Renal ultrasound/chest x-ray) Summary of Care Provided Minutes Spent on Discharge: 38 Hospital Course: Mr. Mckeon is a 78-year-old white male who presented to emergency department [facility] on 11/13/2019 4 in the morning with shortness of breath and left-sided chest pain under his left nipple. He reported it began rather suddenly when he awoke on the morning of admission and he noticed it was worse with exertion and while going to the bathroom. He came back from the bathroom and he stated he sat on the side of the bed and noted that he was fairly short of breath. He denied any associated respiratory infectious symptoms and had no fever or chills. He did indicate that the day prior to presentation he may have noticed some mild shortness of breath that abated fairly quickly. He denied any associated nausea, vomiting, or diaphoresis. He does he and has previously seen by nephrology and initially felt that he was never going to be amenable to dialysis, however on further conversation he is more amenable to dialysis after things were explained further. At the time of admission he had no known history of coronary disease and had never had cardiac catheterization or stress test. He had no family history of coronary disease of which she was aware. He does have a personal and family history of diabetes, hypertension, and hyperlipidemia. He also has a personal history of tobacco abuse which he quit 20 years ago. He did have his cholesterol drawn recently and his total cholesterol was 264 with an LDL of 138 and a triglyceride level of 360/HDL 54. He also had a recent hemoglobin A1c at the same time on October 01, 2023 at which time of 6.6. He was having some ongoing chest pain and emergency department and nitro placed was placed. Vital signs on presentation showed temperature of 97.5, heart rate 113, blood pressure was 169/91, respiratory was 20 and oxygen saturations were 95% on room air. His CBC showed a mild stable anemia with a hemoglobin of 11.2. Coags were normal. Chemistry panel showed normal electrolytes however serum bicarb was 20. Anion gap is normal. BUN is 64 and serum creatinine is 4.19 (baseline recently is unknown however last documented here was October 01, 2023 at which time it was 3.47). His glucose was 157. Troponin was 1208 and BNP was elevated 819.6. Chest x-ray showed changes consistent with COPD and mild interstitial prominence with no signs of acute volume overload or any other findings. EKG was normal sinus rhythm with mild T wave depression in the anterior and lateral leads. Repeat EKG after Nitropaste was placed and these had resolved. He was admitted to the telemetry floor and placed on a heparin drip. An echocardiogram was ordered, his cardiac enzymes were cycled, and cardiology was consulted. He was placed on aspirin, high intensity dose statin, and his blood pressure regimen was altered for improved blood pressure control. His home amlodipine was discontinued and he was placed on metoprolol tartrate 50 mg p.o. twice daily as well as Nitropaste and this did improve his blood pressure significantly. His echocardiogram showed an EF of 45% with mild hypokinesis of the apex and anterior wall of the LV, mild mitral valve insufficiency and stage I diastolic dysfunction. Given his renal function, nephrology was consulted. FE urea and Ramila were obtained and both were consistent with intrinsic renal disease. A renal ultrasound was obtained and demonstrated normal-sized kidneys with multiple anechoic lesions consistent with bilateral renal cysts and no other significant abnormalities. Once he was agreeable for dialysis, he was taken for cardiac catheterization on 11/15/2023. Cardiac catheterization via the right radial approach revealed severe triple-vessel disease. 35 cc of contrast was utilized. No intervention was performed and it was felt that it was in his best interest to be transferred to tertiary center for further evaluation. The case was discussed by Dr. Bull with Dr. Mell Marin for who accepted the patient for transfer. The patient was transferred to [facility] on 11/15/2023 in stable condition. Discharge diagnoses: NSTEMI Triple-vessel disease Ischemic cardiomyopathy-EF 45% ZOFIA CKD stage IV History of nephrolithiasis HTN HPL DM-2 Chronic anemia GERD BPH with obstruction Elevated PSA History of TIA History of tobacco abuse Osteoarthritis CODE STATUS is DNR CCA okay for short-term intubation and patient is aware that CODE STATUS is suspended during procedures per discussion prior to admission to [facility] Physical Exam Const alert, oriented x3, no apparent distress, average body habitus, no limitations and well nourished Constitutional Narrative: Very pleasant, older, white male, sitting up in bed, daughter and another lady at bedside, currently appears comfortable, nontoxic General Appearance: cooperative, comfortable, well kempt and well developed Orientation / Consciousness: awake, oriented to person, oriented to place and oriented to time Exam Limitations: no limitations HEENT normocephalic, head/scalp atraumatic, hearing grossly normal bilaterally and moist oral mucous membranes HEENT Narrative: Mallampati 2, no thrush Eyes PERRL, EOMs intact bilaterally and conjunctivae normal Eyes Narrative: No scleral icterus Neck no lymphadenopathy and supple Neck Narrative: Trachea midline, no thyroid enlargement Resp normal respiratory effort, no retractions, no use of accessory muscles and clear to auscultation bilaterally Resp Narrative: Diminished but clear Auscultation: Negative for rales, rhonchi or wheezes Cardio regular rate, regular rhythm, S1 normal heart sound, S2 normal heart sound, no rub, no gallops and no clicks; Negative for no murmurs GI normal to inspection, nondistended, normoactive bowel sounds, soft to palpation and non-tender Extremity no clubbing, cyanosis or edema Extremity Narrative: Pedal pulses are 2+, radial pulses are 2+ Skin no rashes or lesions noted, no wounds, skin turgor normal, no jaundice, no petechiae and no mottling Skin Narrative: Compression device over right radial artery due to recent cardiac catheterization, no signs of bleeding or ecchymosis Neuro oriented x3, moves all extremities and no focal motor deficits Speech: speech normal Motor Exam: strength 5/5 throughout Psych affect normal Psych Narrative: Very pleasant, interacts appropriately Weight / BMI Weight Weight: 71.8 kg Body Mass Index (BMI) 22.7 ABG / Lab / Microbiology Data 11/14/23 09:54 11/15/23 07:24 Laboratory: Laboratory Results - last 24 hr 11/14/23 17:05: APTT 51.4 H 11/14/23 17:43: POC Glucose 139 H 11/14/23 21:41: POC Glucose 200 H 11/15/23 00:19: APTT 68.6 H 11/15/23 00:25: Urine Color Yellow, Urine Clarity Clear, Urine pH 5.0, Ur Specific [place] 1.020, Urine Protein 100 H, Urine Glucose (UA) 100 H, Urine Ketones Negative, Urine Occult Blood 10 H, Urine Nitrite Negative, Urine Bilirubin Negative, Urine Urobilinogen Normal, Ur Leukocyte Esterase 100 H, Urine RBC 0-5 SEEN, Urine WBC 0-5 SEEN, Ur Squamous Epith Cells 0 SEEN, Urine Bacteria 0 SEEN, Urine Mucus 0 SEEN, U Random Total Protein 1145.9 H, Urine Creatinine 104.00, Protein/Creatinin Ratio 79359 H 11/15/23 06:10: POC Glucose 121 H 11/15/23 07:24: APTT 66.2 H, Sodium 138, Potassium 3.9, Chloride 111 H, Carbon Dioxide 21.0, Anion Gap 6, BUN 80 H, Creatinine 4.54 H, Estim Creat Clear Calc 14.06, Est GFR (MDRD) Af Amer 16 L, Est GFR (MDRD) Non-Af 13 L, BUN/Creatinine Ratio 17.6, Glucose 146 H, Calcium 8.5 11/15/23 11:13: POC Glucose 146 H Meaningful Use Info Meaningful Use Diagnoses (Choose all that apply): None applicable Discharge Plan Admission Admit Date/Time: 11/13/23 12:49 Primary Reason for Your Visit: Chest pain/shortness of breath Attending Provider: Amanda Frank Primary Care Provider: Olena Gabriel NP Consulting Providers: Lyo Bull; Jakob Allen Discharge Orders/Prescriptions Prescriptions: No Action amlodipine 5 mg tablet 5 mg PO DAILY Qty: 90 3RF escitalopram oxalate [Lexapro] 10 mg tablet 10 mg PO DAILY Qty: 90 3RF atorvastatin 20 mg tablet 20 mg PO DAILY Qty: 90 3RF prednisone 20 mg tablet 40 mg PO DAILY Qty: 20 0RF Patient Comments: pt has not started this med yet tramadol 50 mg tablet 50 mg PO Q6H 7 Days Qty: 28 5RF Patient Comments: pt has not started this med yet metformin 1,000 mg tablet 500 mg PO DAILY Patient Comments: pt states that he takes 1000mg in the morning and 500 at night, but was told he should switch those doses. tamsulosin 0.4 mg capsule 0.4 mg PO QHS metformin 1,000 mg tablet 1,000 mg PO QHS Patient Comments: pt states that he takes 1000mg in the morning and 500 at night, but was told he should switch those doses. omeprazole 20 mg tablet,delayed release (DR/EC) 20 mg PO BID PRN (Reason: heartburn) gabapentin 300 mg capsule 300 mg PO BID Patient Comments: pt states he takes twice daily Referrals / Follow Up: Olena Gabriel NP, [employer] [Primary Care Provider] - Disposition Disposition (needs filled in before D/C Order can be placed): Acute Care Hospital Charges/Coding Visit Charges Inpatient E&M: 77893 Disch Hosp >30min
--- NOTE | 2023-11-15 12:59 | PN.CARD_ITS ---
Subjective Subjective The patient underwent left heart catheterization this morning via the right radial approach. The catheterization revealed severe triple-vessel disease. The patient's LV function was in the 45% range by echo done yesterday. The patient was prehydrated prior to the procedure. A total of 35 cc of contrast were utilized. The patient is agreeable to transfer for surgical evaluation. I discussed the case with Dr. Mell Marin at [facility]. She will take the patient in transfer to their heart-lung unit and will convene a heart team to discuss best options for treatment. Objective Data Vital Signs: Vital Signs Temp Pulse Resp BP Pulse Ox O2 Del Method O2 Flow Rate 97.0 F L 61 18 130/65 H 94 Room Air 2 11/15/23 11:00 11/15/23 11:45 11/15/23 11:45 11/15/23 11:45 11/15/23 11:45 11/15/23 11:45 11/14/23 07:55 Oxygen Flow Rate (L/min) 2 Oxygen Delivery Method Room Air Weight: 158 lb 4.67 oz Body Mass Index (BMI) 22.7 Intake & Output: Intake and Output for Last 24 Hours 11/13/23 11/14/23 11/15/23 23:59 23:59 23:59 Intake Total 240 / 880 2234.90 / 2594.90 1203.83 / 1203.83 Output Total 600 / 1200 1870 / 1870 300 / 300 Balance -360 / -320 364.90 / 724.90 903.83 / 903.83 Lab / Micro Data 11/14/23 09:54 11/15/23 07:24 Labs: Laboratory Results - last 24 hr 11/14/23 17:05: APTT 51.4 H 11/14/23 17:43: POC Glucose 139 H 11/14/23 21:41: POC Glucose 200 H 11/15/23 00:19: APTT 68.6 H 11/15/23 00:25: Urine Color Yellow, Urine Clarity Clear, Urine pH 5.0, Ur Specific [place] 1.020, Urine Protein 100 H, Urine Glucose (UA) 100 H, Urine Ketones Negative, Urine Occult Blood 10 H, Urine Nitrite Negative, Urine Bilirubin Negative, Urine Urobilinogen Normal, Ur Leukocyte Esterase 100 H, Urine RBC 0-5 SEEN, Urine WBC 0-5 SEEN, Ur Squamous Epith Cells 0 SEEN, Urine Bacteria 0 SEEN, Urine Mucus 0 SEEN, U Random Total Protein 1145.9 H, Urine Creatinine 104.00, Protein/Creatinin Ratio 58911 H 11/15/23 06:10: POC Glucose 121 H 11/15/23 07:24: APTT 66.2 H, Sodium 138, Potassium 3.9, Chloride 111 H, Carbon Dioxide 21.0, Anion Gap 6, BUN 80 H, Creatinine 4.54 H, Estim Creat Clear Calc 14.06, Est GFR (MDRD) Af Amer 16 L, Est GFR (MDRD) Non-Af 13 L, BUN/Creatinine Ratio 17.6, Glucose 146 H, Calcium 8.5 11/15/23 11:13: POC Glucose 146 H Rhythm Strip Rhythm Strip: Sinus Rhythm Rate: 70 Cardiology Labs/Tests 11/14/23 17:05: APTT 51.4 H 11/15/23 00:19: APTT 68.6 H 11/15/23 00:25: Urine Color Yellow, Urine Clarity Clear, Urine pH 5.0, Ur Specific [place] 1.020, Urine Protein 100 H, Urine Glucose (UA) 100 H, Urine Ketones Negative, Urine Occult Blood 10 H, Urine Nitrite Negative, Urine Bilirubin Negative, Urine Urobilinogen Normal, Ur Leukocyte Esterase 100 H, Urine RBC 0-5 SEEN, Urine WBC 0-5 SEEN 11/15/23 07:24: APTT 66.2 H, Sodium 138, Potassium 3.9, Chloride 111 H, Carbon Dioxide 21.0, Anion Gap 6, BUN 80 H, Creatinine 4.54 H, Est GFR (MDRD) Af Amer 16 L, Est GFR (MDRD) Non-Af 13 L, BUN/Creatinine Ratio 17.6, Glucose 146 H, Calcium 8.5 Rhythm: EKG: ECHO: Stress Test: Cardiac Cath: PCI: CT Surgery: Holter monitor: EPS: PPM: CXR: Chest CT Scan: Physical Exam Const oriented x3 HEENT normocephalic Eyes EOMs intact bilaterally Neck no JVD Chest inspection of chest normal Resp normal respiratory effort Cardio regular rate and regular rhythm Peripheral Pulses: radial pulses present right (The vascular access site is clean and dry.) Extremity no pedal edema Neuro Neuro Narrative: The patient was sleeping but easily arousable and or oriented x 3 Psych mental status grossly normal Assessment & Plan Assessment/Plan (1) CKD (chronic kidney disease) stage 4, GFR 15-29 ml/min: PLAN: The patient has been evaluated by Dr. Simon Huynh's nephrology group. The p atient is agreeable to proceed with renal replacement therapy as indicated. A total of 35 cc of contrast were utilized to perform the coronary angiography. The patient has had no other contrast exposure during this admission. (2) Non-STEMI (non-ST elevated myocardial infarction): PLAN: The patient's coronary anatomy is three-vessel disease. He has a calcified 50% left main trunk lesion this severe diffuse disease in the proximal LAD involving a large diagonal branch. There is also disease at the junction of the middle and distal thirds of the LAD and he has disease in the proximal circumflex that is potentially too small to graft when it comes out of the AV groove. The right coronary is occluded at the ostium and fills distally via collateral flow from the left system. There appears to be a moderate size posterior descending artery and moderate size distal right coronary artery visible by collateral flow. The LV function is adequately preserved with an ejection fraction of 45% with apical and lateral wall hypokinesis on echocardiogram. PLAN: Plan 1. Transfer to [facility] Dr. Mell Marin is the accepting physician patient will be presented for surgical versus percutaneous revascularization o ptions to the heart team. 2. Continuity of nephrology care with Dr. Simon Huynh's group upon arrival at [facility]. Charges/Coding Visit Charges Inpatient E&M: 25207 Subs Hosp L2
--- NOTE | 2023-11-15 14:08 | CL.D_ITS ---
Patient Name: JOSE JOHN Study Date: 11/15/2023 Performing: Jimmie Posey MD Ht: 70 inches 177.8 cm : 1945 Wt: 158.5 lbs 71.8 kg Age: 78 Gender: male BSA: 1.89 PROCEDURE(S) PERFORMED [id number])[facility] CLINICAL PROFILE AND INDICATIONS Indications: Suspected CAD Heart Failure: None Stress/Imaging Stress/Image Study Performed: No CAD Presentations: Non-STEMI. Symptom onset Date/Time: 11/13/23 Time Not Available CONCLUSIONS Severe triple-vessel disease involving a totally occluded right coronary artery with irih-[place] collaterals, circumflex artery with moderate disease, and LAD with high-grade proximal and mid stenosis. Reduced left ventricular systolic function. RECOMMENDATIONS Patient has significant renal insufficiency and would likely need dialysis. Because of the triple-vessel disease will need to consider coronary bypass surgery. DESCRIPTION OF PROCEDURE The patient arrived to the procedure lab. The risks and benefits of the procedure as well as a full description of our services here and current unavailability of surgical backup were fully explained to the patient and/or their significant other prior to the catheterization. The Timeout was completed, verifying the correct patient and procedure. The patient's procedural site was prepped and draped in the usual fashion. Local anesthetic was given subcutaneously to right radial region with Lidocaine 2%. Using a modified Seldinger technique, arterial access was obtained via the right radial artery, a 6Fr sheath was inserted. Left Coronary Artery selective angiography was performed in multiple views using a 5 Fr. JL4 catheter.The arterial sheath was pulled and a TR Band was applied for hemostasis w/ 11ml air CORONARY ANGIOGRAPHY DOMINANCE: Right Dominant LEFT HEART ASSESSMENT Left Ventricular Ejection Fraction: by Echo 45 % Anterior Hypokinesis - Moderate Depressed Left Ventricular systolic function LEFT MAIN: Mild calcification, Ostial 30% left main stenosis LEFT ANTERIOR DESCENDING ARTERY: This is a medium size vessel which is calcified in the proximal and mid segments. There are 4 diagonal branches noted with the first 3 having moderate disease and the fourth being subtotally occluded. The proximal left anterior descending artery has diffuse 60% stenosis in the mid with a 70 to 80% long stenosis. The distal vessel appears to be mildly diseased. Left to right collaterals are seen. CIRCUMFLEX ARTERY: This is a nondominant vessel with the first obtuse marginal branch with moderate disease AV groove branch with diffuse 60 to 70% stenosis in the second obtuse marginal branch with mild to moderate disease. Left to right collaterals seen filling the distal right coronary artery RIGHT CORONARY ARTERY: Presumed to be totally occluded proximally. COLLATERAL FLOW: Collateral flow from Left to Right COMPLICATIONS No Complications PROCEDURE MEDICATIONS Versed 1 mg IV Fentanyl 50 mcg IV Oxygen: 2 L/min via nasal cannula Heparin given IA 11/15/2023 09:57:53 Verapamil 2.5mg, Ntg 200mcgs, 2000 units of Heparin given IA 11/15/2023 09:57:53 SUMMARY OF HEMODYNAMIC DATA Time AIR REST ECG 09:26:59 Art 141/55 (82) 09:42:10 AO 124/49 (75) SA 10:00:59 LV 131/5, 20 10:12:39 LV 137/7, 21 10:12:48 Signed By Jimmie Posey MD On 11/15/2023 14:07:36 Jimmie Posey MD
--- NOTE | 2023-11-15 15:11 | NURSING ---
This RN called and gave report to LINA Hernandez at [facility].
[2023-11-16 14:10] LABS: Immunoglobulin A 190 mg/dL (61-437); Immunoglobulin G 769 mg/dL (603-1613); Immunoglobulin M 106 mg/dL (15-143)
--- NOTE | 2023-12-10 13:57 | CCN.REFER ---
REFERRAL TO [facility] DC'D PATIENT WAS TRANSFERRED TO [place] PER DC SUMMARY.
== END 2023-11-15 15:37 | disposition short-term general hospital (02) | DRG 281 ==
LOC: ED 07:22 → PCU 13:24
PROVIDERS: Internal Medicine Cardiovascular Disease; Nurse Practitioner Adult Health; Admitting Provider Internal Medicine; Emergency Provider Emergency Medicine; PCP Nurse Practitioner; Visit Provider Internal Medicine
DX: I21.4 Non-ST elevation (NSTEMI) myocardial infarction (principal); N17.9 Acute kidney failure, unspecified; N18.4 Chronic kidney disease, stage 4 (severe); N13.8 Other obstructive and reflux uropathy; D63.1 Anemia in chronic kidney disease; E11.22 Type 2 diabetes mellitus with diabetic chronic kidney disease; E11.40 Type 2 diabetes mellitus with diabetic neuropathy, unspecified; J44.9 Chronic obstructive pulmonary disease, unspecified; I25.110 Atherosclerotic heart disease of native coronary artery with unstable angina pectoris; I12.9 Hypertensive chronic kidney disease with stage 1 through stage 4 chronic kidney disease, or unspecified chronic kidney disease; I34.0 Nonrheumatic mitral (valve) insufficiency; E78.5 Hyperlipidemia, unspecified; K21.9 Gastro-esophageal reflux disease without esophagitis; M19.90 Unspecified osteoarthritis, unspecified site; I25.5 Ischemic cardiomyopathy; R09.02 Hypoxemia; N40.1 Benign prostatic hyperplasia with lower urinary tract symptoms; Z11.52 Encounter for screening for COVID-19; Z66 Do not resuscitate; Z79.52 Long term (current) use of systemic steroids; Z79.84 Long term (current) use of oral hypoglycemic drugs; Z87.891 Personal history of nicotine dependence
CPT/HCPCS: 36415; 71045; 76770; 80048; 80053; 81001; 82570; 82784; 82962; 83735; 83880; 84100; 84156; 84300; 84443; 84484; 84540; 85018; 85025; 85610; 85730; 86334; 86335; 93005; 93306; 93454; 93975; 94668; 94762; 99152; 99153; 99285; J7030; J7040; Q9967; A4216; C1769; C1894; J1940

== ENCOUNTER 2025-01-01 07:42 | Emergency (ER) | payer MEDICARE, BC, SELFPAY ==
[2025-01-01 07:44] VITALS: BP 243/133; PULSE 94; RESP 22; TEMP 36.4; O2SAT 96; BMI 19.2
--- NOTE | 2025-01-01 08:03 | EKG12_ITS ---
Test Reason : WEAKNESS Blood Pressure : */* mmHG Vent. Rate : 72 BPM Atrial Rate : 72 BPM P-R Int : 142 ms QRS Dur : 104 ms QT Int : 454 ms P-R-T Axes : 48 96 123 degrees QTcB Int : 497 ms Normal sinus rhythm Possible Left atrial enlargement Rightward axis Nonspecific T wave abnormality QTcB >= 480 msec Abnormal ECG Confirmed by Loy Bull ([id number]), newspaper editor managing LEMUEL HENDERSON ([id number]) on 01/05/2025 11:35:39 AM Referred By: Confirmed By: Loy Bull
--- NOTE | 2025-01-01 08:05 | EX.ED.DYSGE1 ---
HPI History of Present Illness Chief Complaint: Weakness Detail of Chief Complaint: Weakness Informant: patient Narrative Narrative: Patient presents to the emergency department complaint of generalized weakness this morning. He states that he had dialysis yesterday and after he came home and ate dinner just did not feel well. He woke up this morning felt like he was having palpitations. His breathing feels shallow. He called EMS. Patient has history of elevated blood pressure and tells me he has been taking his blood pressure medication. He states his blood pressure has been running in the 200 systolic over the low 100s diastolic. Describes some mild chest discomfort and at times feels his heartbeat in his left shoulder and neck. He tells me he had open heart surgery and had four-vessel bypass last year. He denies recent illness. He has been on dialysis since last year and his last dialysis was yesterday. Patient also has been under increased stress as he lost his this November. He currently lives alone. He recently also lost another family member. Patient denies feeling suicidal or homicidal. [facility] Medical History (Updated 01/01/25 @ 11:[address] Lena Mcfarland, ) DVT (deep venous thrombosis) Dialysis patient Carotid artery bruit Coronary artery disease Cardiomyopathy CKD (chronic kidney disease) stage 4, GFR 15-29 ml/min ZOFIA (acute kidney injury) Anemia Inguinal hernia of right side without obstruction or gangrene Easy bruising Neuropathy Former smoker Heartburn Chronic renal insufficiency, stage III (moderate) Depression Black tarry stools Diarrhea Abdominal pain Hx TIA/stroke w/o resid Mini stroke Fatigue Hypertension L eye torn retina Pseudobulbar affect Anxiety disorder Macular degeneration Kidney stones Osteoarthritis Diabetes type 2, uncontrolled Home Medications ?Medication ?Instructions ?Recorded ?Last Taken ?Type amlodipine 5 mg tablet 5 mg PO DAILY blood pressure #90 10/01/23 Unknown Rx tabs atorvastatin 20 mg tablet 20 mg PO DAILY cholesterol #90 tabs 10/02/23 Unknown Rx escitalopram oxalate 10 mg tablet 10 mg PO DAILY Anxiety #90 tabs 10/02/23 Unknown Rx (Lexapro) prednisone 20 mg tablet 40 mg (2 x 20 mg) PO DAILY back 11/07/23 Unknown Rx #20 tabs tramadol 50 mg tablet 50 mg PO Q6H pain lower back 7 11/07/23 Unknown Rx days #28 tabs gabapentin 300 mg capsule 300 mg PO BID nerve pain 11/13/23 Unknown History metformin 1,000 mg tablet 1,000 mg PO QHS diabetes 11/13/23 Unknown History metformin 1,000 mg tablet 500 mg PO DAILY diabetes 11/13/23 Unknown History omeprazole 20 mg tablet,delayed 20 mg PO BID PRN heartburn 11/13/23 Unknown History release tamsulosin 0.4 mg capsule 0.4 mg PO QHS urine flow 11/13/23 Unknown History lorazepam 1 mg tablet (Ativan) 1 mg PO TID PRN anxiety #10 tabs 01/01/25 Unknown Rx Allergy/AdvReac Type Severity Reaction Status Date / Time lisinopril Allergy Severe raspy Verified 01/01/25 07:44 voice and cough Penicillins Allergy Anaphylaxis Verified 01/01/25 07:44 Sulfa (Sulfonamide Allergy Anaphylaxis Verified 01/01/25 07:44 Antibiotics) levofloxacin (From Levaquin) AdvReac Upset Verified 01/01/25 07:44 Stomach Family History Mother Diabetes Heart disease Hypertension CVA (cerebral vascular accident) Sister CVA (cerebral vascular accident) Heart disease Other High cholesterol Surgical History (Updated 01/01/25 @ 07:50 by Neyda Madrid) History of open heart surgery S/P laparoscopic hernia repair Previous back surgery Hx laparoscopic cholecystectomy Social History Smoking Status: Former smoker alcohol intake: never substance use type: does not use caffeine: Yes what type of physical activity do you participate in: none frequency: does not exercise ROS ROS ED Review of Systems ROS Unobtainable: other Constitutional Constitutional ED: Reports lethargy; Denies chills, fever(s), sweats or weight loss Eyes Eyes: Denies blurry vision, change in vision or diplopia ENT ENT ED: Denies rhinorrhea or sore throat Cardiovascular Cardiovascular: Reports chest pain, palpitations and racing heartbeat; Denies orthopnea Respiratory/Chest Respiratory/Chest: Reports dyspnea; Denies cough, dyspnea on exertion, orthopnea or sputum Gastrointestinal Gastrointestinal: Denies abdominal pain, diarrhea, nausea or vomiting Genitourinary Genitourinary ED: Denies dysuria, hematuria or urinary frequency Musculoskeletal Musculoskeletal: Denies arthralgias, back pain, myalgias or neck pain Integumentary Denies abscess, Abrasions or rash Neurologic Neurologic: Denies headache(s) or weakness Psychiatric Psychiatric: Denies anxiety, depression or suicidal thoughts Endocrine Endocrinology: Denies polydipsia, polyphagia or polyuria Hematologic/Lymphatic Hematologic/Lymphatic: Denies easy bleeding, easy bruising or lymphadenopathy Allergic/Immunologic Allergic/Immunologic ED: Denies mouth swelling, tongue swelling or urticaria EXAM Physical Exam Const Vital Signs: 01/01/25 07:44 01/01/25 07:50 01/01/25 08:44 Temperature 97.6 F L Temperature Source Oral Pulse Rate 94 72 Respiratory Rate 22 H 15 Respiratory Effort Normal Non-Labored Respiratory Pattern Tachypnea Blood Pressure 243/133 H 181/93 H Blood Pressure Mean 169 122 Pulse Ox 96 96 Oxygen Delivery Method Room Air Room Air 01/01/25 10:00 01/01/25 10:17 Temperature Temperature Source Pulse Rate 72 72 Respiratory Rate 16 16 Respiratory Effort Respiratory Pattern Blood Pressure 190/90 H 194/74 H Blood Pressure Mean 123 114 Pulse Ox 96 96 Oxygen Delivery Method Room Air Positive well nourished and well developed General Appearance ED: well developed and NAD HEENT Reports TM's clear and moist mucous membranes normocephalic and atraumatic; Negative for trauma or tenderness Tympanic Membrane ED: Yes TM's clear Eyes PERRL and EOMs intact bilaterally General Eye ED: Negative for pale conjunctiva or scleral icterus Neck no lymphadenopathy, supple and no JVD General: Negative for tenderness Chest Wall inspection of chest normal and palpation of chest normal Chest: Negative for tenderness Resp normal respiratory effort and clear to auscultation bilaterally Effort and Inspection: Negative for respiratory distress or pain with movement Auscultation: Negative for rhonchi, wheezes or diminished lung sounds Cardio regular rate, regular rhythm, S1 normal heart sound, S2 normal heart sound and no murmurs Peripheral Pulses: pulses 2+ throughout GI normal to inspection, nondistended, normoactive bowel sounds, soft to palpation, non-tender, non-distended and no masses Back/Spine no CVA tenderness and no thoracic nor lumbar tenderness Extremity normal to inspection General Extremety ED: Negative for edema General Extremity: Negative for edema Neuro oriented x3, CN's II-XII intact bilaterally, no sensory deficits noted and gait normal Sensorium / Orientation: awake, alert, oriented to person, oriented to place and oriented to time Motor Exam: strength 5/5 throughout and strength abnormal Psych mental status grossly normal Skin no rashes or lesions noted and no wounds MDM MDM MDM Narrative Medical decision making narrative: Patient presents the emergency department with multiple complaints of generalized weakness and some palpitations. He woke up not feeling well. Recent loss of his and other family member. Patient had dialysis yesterday and is scheduled to go back tomorrow. Tells me he used to be on Ativan but no longer is. In the differential would be acute coronary syndrome versus cardiac dysrhythmia versus anemia or electrolyte abnormality. Anxiety is in the differential. He does have known history of hypertension. IV line established. EKG obtained showed a sinus rhythm with rate of [address] changes and a prolonged QTc. When compared with prior EKG no significant changes noted. CBC with differential count of 4.8 with hemoglobin 11.8 and platelet count of 147. Chemistries unremarkable. BUN was 21 and creatinine 3.43. Troponin was elevated 73 however he does have chronic kidney disease. 2-hour delta troponin was stable at 72. Urinalysis was unremarkable. Patient had also been complaining of left flank pain for several weeks and I did obtain a CT scan of the abdomen pelvis and there was no evidence of kidney stone. He did have a bilateral pleural effusions noted. Chest x-ray 1 view initially obtained showed some pulmonary congestion. While in the department he did receive 5 mg of Norvasc p.o. as well as carvedilol 6.25 mg p.o. Patient also had initially labetalol 20 mg IV. His blood pressure maintaining in the 180 systolic. Started him on Norvasc as he used to be on it 5 mg daily. He is to continue with the carvedilol. He will follow-up with Dr. Franz's office in 3 to 5 days. Advised to return if chest pain, increasing shortness of breath, or condition worsening way. Will also add a prescription for Ativan as needed for anxiety. Lab Data Attestation: I reviewed the patient's lab results. Labs: Laboratory Results - last 24 hr 01/01/25 01/01/25 01/01/25 07:50 08:25 10:55 WBC 4.8 RBC 3.80 L Hgb 11.8 L Hct 36.3 L MCV 95.5 H MCH 31.1 MCHC 32.5 RDW Std Deviation 50.8 H RDW Coeff of Keith 14.5 Plt Count 147 L MPV 11.1 Immature Gran % (Auto) 0.200 Neut % (Auto) 57.7 Lymph % (Auto) 20.1 [place] % (Auto) 15.8 H Eos % (Auto) 5.2 H Baso % (Auto) 1.0 Absolute Neuts (auto) 2.8 Absolute Lymphs (auto) 0.97 Nucleated RBC % 0 Sodium 140 Potassium 3.8 Chloride 100 Carbon Dioxide 28.0 Anion Gap 11 BUN 21 H Creatinine 3.43 H Estim Creat Clear Calc 15.48 L Est GFR (MDRD) Non-Af 18 L BUN/Creatinine Ratio 6.0 L Glucose 110 H Calcium 9.0 Troponin T High Sens 73 H* Troponin T Hi Sens 2 Hr 72 H* Urine Color Yellow Urine Clarity Clear Urine pH 8.0 Ur Specific [place] 1.015 Urine Protein 100 H Urine Glucose (UA) 100 H Urine Ketones Negative Urine Occult Blood 10 H Urine Nitrite Negative Urine Bilirubin Negative Urine Urobilinogen Normal Ur Leukocyte Esterase Negative Urine RBC 0-5 SEEN Urine WBC 0-5 SEEN Ur Squamous Epith Cells 0-5 SEEN Urine Bacteria 0 SEEN Urine Mucus 0 SEEN Radiography Diagnostic Testing: Clinical Impression(s) from Imaging Studies Chest X-Ray 01/01/25 08:43 IMPRESSION: Findings suggestive of vascular congestion and CHF with bibasilar atelectasis and/or early infiltrate more prominent the right lung base. The tip of the left-sided double-lumen catheter is at the junction of the superior vena cava and right atrium. Reading Location: [id number] Abdomen/Pelvis CT 01/01/25 09:43 IMPRESSION: Bilateral pleural effusions right greater than left with bibasilar infiltration and/or atelectasis worse at the right lung base. Borderline splenomegaly and calcified splenic granulomas. Left renal atrophy. Nonobstructive calculus in the lower pole calyx of the left kidney. No evidence of ureteral obstruction at this time. Prostatic enlargement with indentation at the bladder base. OVERALL FINAL ASSESSMENT: . LI-RADS is not meant to be used in patients <18 years or patients with cirrhosis due to congenital hepatic fibrosis or due to vascular disorders, because these patients have a lower chance of developing HCC. Reading Location: [facility] EKG Initial EKG: Attestation: I personally reviewed and interpreted this EKG as follows: Comments: Sinus rhythm with ventricular rate of [address] changes and prolonged QTc at 497. Discharge Plan Triage Chief Complaint: Weakness Other Complaint: Shortness of Breath ED Provider: Lena Mcfarland Dx/Rx/DC Orders Clinical Impression: Hypertension, Anxiety, Dyspnea Instructions: ED Anxiety Reaction, ED Dyspnea, ED Hypertension, Established Prescriptions: New lorazepam [Ativan] 1 mg tablet 1 mg PO TID PRN (Reason: anxiety) Qty: 10 0RF No Action amlodipine 5 mg tablet 5 mg PO DAILY Qty: 90 3RF escitalopram oxalate [Lexapro] 10 mg tablet 10 mg PO DAILY Qty: 90 3RF atorvastatin 20 mg tablet 20 mg PO DAILY Qty: 90 3RF prednisone 20 mg tablet 40 mg PO DAILY Qty: 20 0RF Patient Comments: pt has not started this med yet tramadol 50 mg tablet 50 mg PO Q6H 7 Days Qty: 28 5RF Patient Comments: pt has not started this med yet metformin 1,000 mg tablet 500 mg PO DAILY Patient Comments: pt states that he takes 1000mg in the morning and 500 at night, but was told he should switch those doses. tamsulosin 0.4 mg capsule 0.4 mg PO QHS metformin 1,000 mg tablet 1,000 mg PO QHS Patient Comments: pt states that he takes 1000mg in the morning and 500 at night, but was told he should switch those doses. omeprazole 20 mg tablet,delayed release (DR/EC) 20 mg PO BID PRN (Reason: heartburn) gabapentin 300 mg capsule 300 mg PO BID Patient Comments: pt states he takes twice daily Primary Care Provider: Care Physician,No Primary Referrals: Moe Franz MD [Non-Staff] - 3-5 Days NOT,DEFINED [Non-Staff] - Print Language: Yoruba Disposition Disposition: Home, Self Care
[2025-01-01] MEDS: Labetalol 20 MG/4 ML Vial IV (08:21)
[2025-01-01] MEDS: amLODIPine 5 MG Tablet PO (08:21)
[2025-01-01 08:29] LABS: Bacteria 0 SEEN /hpf (None Seen); Mucous, Urine 0 SEEN /hpf (<or=2+)
[2025-01-01 08:31] LABS: Color, Urine Yellow (Yellow); Glucose, Dipstick 100 mg/dl (Normal); Ketone-Dipstick Negative (Negative); Leukocyte Esterase-Dipstick Negative /ul (Negative); Nitrite-Dipstick Negative (Negative); Occult Blood-Urine 10 /ul (Negative); Protein-Dipstick 100 mg/dl (Negative); Specific Gravity, Urine 1.015 (1.002-1.030); Urine Bilirubin Dipstick Negative (Negative); Urine Clarity Clear (Clear); Urine Urobilinogen Normal (Normal)
[2025-01-01 08:34] LABS: Absolute Lymphocyte Count 0.97 X10^3/uL (0.83-4.51); Absolute Neutrophil Count 2.8 X10^3/uL (2.0-7.7); Basophil# 0.05 X10^3/uL; Eosinophil# 0.25 X10^3/uL; Eosinophils% 5.2 % (0-5); Hematocrit 36.3 % (40-54); Hemoglobin 11.8 g/dL (13.0-16.5); Lymphocyte # 0.97 X10^3/ul (0.83-4.51); Lymphocyte % 20.1 % (19-41); Mean Corp Hgb Conc 32.5 g/dL (32-36); Mean Corpuscular Hgb 31.1 pg (27.0-32.0); Mean Corpuscular Volume 95.5 fL (80-94); Mean Platelet Vol. 11.1 fl (6.2-12.0); Monocyte# 0.76 X10^3/uL; Monocyte% 15.8 % (0-10); NRBC Flagged by Analyzer 0 % (0-5); Neutrophil # 2.78 X10^3/uL (2.7-7.7); Neutrophil % 57.7 % (47-70); Platelet Count 147 K/mm3 (150-450); RBC Distribution Width CV 14.5 % (11.6-14.6); RBC Distribution Width SD 50.8 fl (35.1-43.9); White Blood Count 4.8 K/mm3 (4.4-11.0)
[2025-01-01 08:37] LABS: Anion Gap 11 (5-15); BUN 21 mg/dL (4-19); Chloride 100 mmol/L (98-108); Creatinine, Serum 3.43 mg/dL (0.70-1.20); EST Glomerular Filtration Rate 18 (>60); Estimated Creatinine Clearance 15.48 ml/min (50-250); Glucose 110 mg/dL (70-99); Potassium 3.8 mmol/L (3.3-5.1); Sodium Level 140 mmol/L (133-145)
--- NOTE | 2025-01-01 08:43 | RAD_ITS ---
PROCEDURE: CHEST 1 VIEW (PORTABLE) 01/01/2025 REASON FOR EXAM: DYSPNEA TECHNIQUE: Frontal view of the chest. COMPARISON: Prior study dated November 13, 1999 4. FINDINGS: Hardware: A left-sided double-lumen catheter is seen with the tip at the cavoatrial junction.. EKG electrodes are seen. Heart: Prior midline sternotomy. Cardiomegaly. Lungs: Vascular congestion and CHF. Increased markings at the lung bases more prominent on the right side suggestive of bibasilar atelectasis and/or early infiltrate. Blunting of the right costophrenic angle. Bones: Degenerative changes are identified within the thoracic spine. Other: RAD/Chest 1 View (Portable) IMPRESSION: Findings suggestive of vascular congestion and CHF with bibasilar atelectasis a nd/or early infiltrate more prominent the right lung base. The tip of the left-sided double-lumen catheter is at the junction of the super ior vena cava and right atrium. Reading Location: [facility]
[2025-01-01 08:44] VITALS: BP 181/93; PULSE 72; RESP 15; O2SAT 96
[2025-01-01 09:09] LABS: Troponin T High Sensitivity 73 ng/L (<=22)
[2025-01-01 09:29] LABS: Red Blood Cells-Urine 0-5 SEEN /hpf (0-5); White Blood Cells 0-5 SEEN /hpf (0-5)
[2025-01-01 09:30] LABS: Squamous Epithelial Cells - UA 0-5 SEEN /hpf (0-5)
--- NOTE | 2025-01-01 09:43 | CT_ITS ---
PROCEDURE: ABDOMEN/PELVIS WITHOUT CONT 01/01/2025 REASON FOR EXAM: LEFT FLANK PAIN TECHNIQUE: Abdomen and pelvis CT without intravenous contrast. Noncontrast technique limits evaluation of the abdominal and pelvic viscera. Coronal and Sagittal reconstruction series were provided. One or more dose reduction techniques were used (e.g., Automated exposure control, adjustment of the mA and/or kV according to patient size, use of iterative reconstruction technique). PATIENT PREPARATION: Per protocol ORAL CONTRAST TYPE: None. Radiation dose report: CTDI L volume: 6.04. DLP: 292.95 COMPARISON: Prior renal sonogram dated November 14, 2023. FINDINGS: Lung bases: Small bilateral pleural effusions right greater than left with bibasilar infiltration and/or atelectasis. Fluid is seen within the right major fissure. Coronary artery calcification. Liver: Normal size. No obvious mass. Gallbladder: Surgically absent. Spleen: Borderline splenomegaly. Multiple calcified splenic granulomas. Pancreas: Normal size. No surrounding inflammation. Adrenals: Unremarkable Kidneys: Atrophy of the left kidney. There is a nonobstructive calculus in the lower pole calyx of the left kidney measuring 7.9 mm. Bladder: Mild degree of bladder wall thickening. Diffuse enlargement of the prostate measures 5.2 cm. This causes indentation of the bladder base. Prostatic calcifications. Bowel: Colonic diverticulosis without diverticulitis. Appendix: Unremarkable Lymph nodes: Unremarkable. Vasculature: Extensive atherosclerotic calcification of the abdominal aorta and the major branches. Peritoneum / Retroperitoneum: Unremarkable Bones: Degenerative changes of the spine. CT/Abdomen/Pelvis without Cont IMPRESSION: Bilateral pleural effusions right greater than left with bibasilar infiltration and/or atelectasis worse at the right lung base. Borderline splenomegaly and calcified splenic granulomas. Left renal atrophy. Nonobstructive calculus in the lower pole calyx of the lef t kidney. No evidence of ureteral obstruction at this time. Prostatic enlargement with indentation at the bladder base. OVERALL FINAL ASSESSMENT: . LI-RADS is not meant to be used in patients <18 years or patients with cirrhosi s due to congenital hepatic fibrosis or due to vascular disorders, because these patients have a lower chance of developing HC C. Reading Location: [facility]
[2025-01-01 10:00] VITALS: BP 190/90; PULSE 72; RESP 16; O2SAT 96
[2025-01-01 10:17] VITALS: BP 194/74; PULSE 72; RESP 16; O2SAT 96
[2025-01-01 11:36] LABS: Troponin T High Sens 2 HR 72 ng/L (<=22)
[2025-01-01] MEDS: Carvedilol 6.25 MG Tablet PO (11:50)
[2025-01-01 12:11] LABS: Bedside Glucose 102 mg/dL (74-106)
[2025-01-01 12:33] VITALS: BP 176/88; PULSE 76; RESP 18; TEMP 36.6; O2SAT 99
== END 2025-01-01 12:47 | disposition home or self-care (01) ==
PROVIDERS: Emergency Provider Emergency Medicine; Visit Provider Emergency Medicine
DX: I12.0 Hypertensive chronic kidney disease with stage 5 chronic kidney disease or end stage renal disease (principal); N18.6 End stage renal disease; I42.9 Cardiomyopathy, unspecified; E11.40 Type 2 diabetes mellitus with diabetic neuropathy, unspecified; E11.22 Type 2 diabetes mellitus with diabetic chronic kidney disease; R79.89 Other specified abnormal findings of blood chemistry; Z99.2 Dependence on renal dialysis; J90 Pleural effusion, not elsewhere classified; R07.89 Other chest pain; R53.1 Weakness; F41.9 Anxiety disorder, unspecified; R10.9 Unspecified abdominal pain; I25.10 Atherosclerotic heart disease of native coronary artery without angina pectoris; R00.2 Palpitations; Z79.84 Long term (current) use of oral hypoglycemic drugs; Z79.899 Other long term (current) drug therapy; Z87.891 Personal history of nicotine dependence; Z95.1 Presence of aortocoronary bypass graft
CPT/HCPCS: 71045; 74176; 80048; 81001; 82962; 84484; 85025; 93005; 96374; 99285; A4216

== ENCOUNTER → 2025-01-06 | Outpatient (CLI) | payer MEDICARE, BC, SELFPAY ==
--- NOTE | 2025-01-06 12:38 | VDUE_ITS ---
Reason For Study Reason For Study: Pre - Op Right Lower Arm Left Arm Proximal Radial artery diameter 0.14 x 0.16 mm. Left Brachial artery diameter 0.36 x 0.39 mm. Proximal Radial artery waveform is triphasic . Left Brachial artery waveform is triphasic . Rt Radial A PSV -31.8 cm/s. Lt Brachial A - 89.3 cm/s. Right Arm Cephalic Vein at distal forearm measures 0.23 x 0.24 Right Brachial artery diameter 0.37 x 0.43 mm. cm. Right Brachial artery waveform is triphasic . Cephalic Vein at mid forearm measures 0.19 x 0.21 cm. Rt Brachial A - 78.5 cm/s. Cephalic Vein proximal forearm measures 0.25 x 0.30 Cephalic Vein at distal forearm measures 0.21 x 0.22 cm. cm. Cephalic Vein distal upper arm measures 0.13 x 0.15 Cephalic Vein at mid forearm measures 0.15 x 0.16 cm. cm. Cephalic Vein proximal forearm measures 0.13 x 0.15 Cephalic Vein at mid upper arm measures 0.21 x 0.27 cm. cm. Cephalic Vein distal upper arm measures 0.14 x 0.17 Cephalic Vein at proximal upper arm measures 0.18 x cm. 0.21 cm. Cephalic Vein at mid upper arm measures 0.16 x 0.22 Proximal Basilic vein measures 0.65 x 0.67 cm. cm. Mid Basilic vein measures 0.37x 0.36 cm. Cephalic Vein at proximal upper arm measures 0.13 x Distal Basilic vein measures 0.52 x 0.55 cm. 0.15 cm. Left Lower Arm Proximal Basilic vein measures 0.34 x 0.38 cm. Proximal Radial artery diameter 0.14 x 0.15 mm. Mid Basilic vein measures 0.29 x 0.30 cm. Proximal Radial artery waveform is triphasic . Distal Basilic vein measures 0.34 x 0.42 cm. Lt Radial A - 65.1 cm/s. VL/Dialysis Vein Map PRE-OP BILAT Interpretation Summary Bilateral upper extremity arteries patent with normal waveforms and measurement s above. Bilateral upper extremity veins patent with measurements above. Ordering Physician: Jakob Allen Referring Physician: N/A Performed By: Reuben Galvan RVT ???
== END | disposition home or self-care (01) ==
PROVIDERS: Referring Provider Internal Medicine Nephrology; Visit Provider Internal Medicine Nephrology
DX: Z01.818 Encounter for other preprocedural examination (principal); N18.6 End stage renal disease
CPT/HCPCS: 93985

== ENCOUNTER 2025-01-13 12:48 | Emergency (ER) | payer MEDICARE, BC, SELFPAY ==
[2025-01-13 12:49] VITALS: BP 132/69; PULSE 71; RESP 13; TEMP 36.5; O2SAT 97; BMI 18.2
--- NOTE | 2025-01-13 13:29 | EKG12_ITS ---
Test Reason : Blood Pressure : */* mmHG Vent. Rate : 69 BPM Atrial Rate : 69 BPM P-R Int : 136 ms QRS Dur : 94 ms QT Int : 452 ms P-R-T Axes : 45 74 163 degrees QTcB Int : 484 ms Normal sinus rhythm T wave abnormality, consider inferolateral ischemia Prolonged QT Abnormal ECG When compared with ECG of 01-Jan-2025 08:27, Inverted T waves have replaced nonspecific T wave abnormality in Inferior leads Inverted T waves have replaced nonspecific T wave abnormality in Lateral leads Confirmed by Loy Bull ([id number]), publication editor YAMIL HOFFMANN ([id number]) on 01/15/2025 1:16:40 PM Referred By: Confirmed By: Loy Bull
--- NOTE | 2025-01-13 13:35 | RAD_ITS ---
PROCEDURE: CHEST 1 VIEW (PORTABLE) 01/13/2025 REASON FOR EXAM: CHEST PAIN TECHNIQUE: Frontal view of the chest. COMPARISON: January 01, 2025 FINDINGS: There is a dual-lumen central line on the left with its tip in the superior vena cava at the right atrium, unchanged. Sternotomy wires and hardware are unchanged. There is cardiomegaly with mild central vascular congestion, similar to the prior. There is infiltrate in the left midlung and right lung base, similar to the prior. There is no visible pneumothorax. There is blunting of the costophrenic angle on the right and left consistent with trace effusions. There is no visible pneumothorax. There is no acute bony abnormality. RAD/Chest 1 View (Portable) IMPRESSION: There is cardiomegaly with mild central vascular congestion, similar to the martín or. There is infiltrate in the left midlung and right lung base, similar to the martín or. There is blunting of the costophrenic angle on the right and left consistent wi th trace effusions, unchanged. Reading Location: [facility]
[2025-01-13 13:42] LABS: Absolute Lymphocyte Count 0.86 X10^3/uL (0.83-4.51); Absolute Neutrophil Count 4.3 X10^3/uL (2.0-7.7); Basophil# 0.05 X10^3/uL; Basophil% 0.8 % (0-1); Eosinophil# 0.14 X10^3/uL; Eosinophils% 2.3 % (0-5); Hematocrit 35.5 % (40-54); Hemoglobin 11.6 g/dL (13.0-16.5); Lymphocyte # 0.86 X10^3/ul (0.83-4.51); Lymphocyte % 14.3 % (19-41); Mean Corp Hgb Conc 32.7 g/dL (32-36); Mean Corpuscular Hgb 31.2 pg (27.0-32.0); Mean Corpuscular Volume 95.4 fL (80-94); Mean Platelet Vol. 10.7 fl (6.2-12.0); Monocyte# 0.64 X10^3/uL; Monocyte% 10.6 % (0-10); NRBC Flagged by Analyzer 0 % (0-5); Neutrophil # 4.31 X10^3/uL (2.7-7.7); Neutrophil % 71.8 % (47-70); Platelet Count 127 K/mm3 (150-450); RBC Distribution Width CV 14.6 % (11.6-14.6); RBC Distribution Width SD 50.9 fl (35.1-43.9); Red Blood Count 3.72 M/mm3 (4.6-6.2)
--- NOTE | 2025-01-13 13:44 | EDS_ITS ---
HPI History of Present Illness Chief Complaint: Chest Pain Detail of Chief Complaint: Chest heaviness and pressure that started after eating breakfast this benjaminni Informant: patient Onset/Context/Timing Onset: Today and Yesterday Activity at onset: sudden and rest Timing: Continuous Quality: Positive for Heaviness and Pressure Location: Substernal Current Severity: Mild Maximum Severity: Moderate Worsened By: Breathing; Not Worsened By Exertion, Movement of Arm, Movement of Torso, Eating, Palpation or Coughing Relieved By: Nothing Associated Symptoms: Positive for Dyspnea and - (Numbness left little finger); Negative for Nausea, Vomiting, Diaphoresis, Cough, Fever, Lightheadedness, Acid Reflux or Palpitations Narrative Narrative: Patient is a 79-year-old male. He has history of coronary disease status post bypass surgery November of last year. He had a 90-day hospital stay after his surgery. After he was discharged he his and [id number] went to assisted living facility in [facility]. His and [id number] both in November. He now lives independently at his residence. He lives alone. He does admit to being sad with increased appetite and unable to gain weight. Yesterday had an episode of chest discomfort. Could not tell me how long it lasted. This episode started after he had breakfast which he made for himself, sausage and Romanian toast. He reported slight shortness of breath. He also complains of pain to the medial of the left scapula that radiates to the left shoulder. This is been going on for some time. He attributes this to sitting in dialysis for hours. He is on hemodialysis since last February. He goes on Sunday, Sunday and Sunday. Prior Similar Symptoms: Yes (Did not answer and was not similar to his anginal pain.) Recent Illness/Hospitalization: No CVD Risk Factors: Positive for Hypertension and Diabetes (Type II); Negative for Smoking PE Risk Factors: Negative for Recent Travel/Surgery, Recent Immobilization, Prior DVT or PE, Cancer or OCP + Smoking + >/=35 TAD Risk Factors: Positive for Hypertension; Negative for Marfan's Syndrome or Family History [facility] Medical History DVT (deep venous thrombosis) Dialysis patient Carotid artery bruit Coronary artery disease Cardiomyopathy CKD (chronic kidney disease) stage 4, GFR 15-29 ml/min ZOFIA (acute kidney injury) Anemia Inguinal hernia of right side without obstruction or gangrene Easy bruising Neuropathy Former smoker Heartburn Chronic renal insufficiency, stage III (moderate) Depression Black tarry stools Diarrhea Abdominal pain Hx TIA/stroke w/o resid Mini stroke Fatigue Hypertension L eye torn retina Pseudobulbar affect Anxiety disorder Macular degeneration Kidney stones Osteoarthritis Diabetes type 2, uncontrolled Home Medications ?Medication ?Instructions ?Recorded ?Last Taken ?Type lorazepam 1 mg tablet (Ativan) 1 mg PO TID PRN anxiety #10 tabs 01/01/25 Unknown Rx carvedilol 6.25 mg tablet 6.25 mg PO BID 01/13/25 06/04/30 History nifedipine 60 mg tablet,extended 60 mg PO DAILY 01/13/25 History release 24 hr Allergy/AdvReac Type Severity Reaction Status Date / Time lisinopril Allergy Severe raspy Verified 01/01/25 07:44 voice and cough Penicillins Allergy Anaphylaxis Verified 01/01/25 07:44 Sulfa (Sulfonamide Allergy Anaphylaxis Verified 01/01/25 07:44 Antibiotics) levofloxacin (From Levaquin) AdvReac Upset Verified 01/01/25 07:44 Stomach Family History Mother Diabetes Heart disease Hypertension CVA (cerebral vascular accident) Sister CVA (cerebral vascular accident) Heart disease Other High cholesterol Surgical History History of open heart surgery S/P laparoscopic hernia repair Previous back surgery Hx laparoscopic cholecystectomy Social History household members: none housing: house current occupational status: retired Smoking Status: Former smoker alcohol intake: never substance use type: does not use caffeine: Yes what type of physical activity do you participate in: none frequency: does not exercise ROS ROS ED Constitutional Constitutional ED: Denies chills, fever(s), subjective, sweats or weight loss Eyes Eyes: Reports none ENT ENT ED: Denies rhinorrhea or sore throat Cardiovascular Cardiovascular: Reports as per HPI; Denies orthopnea or paroxysmal nocturnal dyspnea Respiratory/Chest Respiratory/Chest: Reports dyspnea; Denies cough, dyspnea on exertion, orthopnea or paroxysmal nocturnal dyspnea Gastrointestinal Gastrointestinal: Denies abdominal pain, nausea or vomiting Genitourinary Genitourinary ED: Denies dysuria, hematuria or urinary frequency Musculoskeletal Musculoskeletal: Reports back pain and other Details: Medial of the left scapula radiates to the arm. Nothing makes the pain better or worse. Is been intermittent for some time. ; Denies arthralgias, myalgias or neck pain Integumentary Denies rash Neurologic Neurologic: Reports paresthesias LUE (Left little finger with onset of chest discomfort this morning.) Psychiatric Psychiatric: Reports anxiety and depression; Denies suicidal ideation Hematologic/Lymphatic Hematologic/Lymphatic: Reports other Details: Patient states he is on no antithrombotic or anticoagulant. ; Denies easy bleeding or easy bruising EXAM Physical Exam Const Vital Signs: 01/13/25 12:49 01/13/25 13:29 01/13/25 13:49 Temperature 97.7 F L Temperature Source Oral Pulse Rate 71 73 Respiratory Rate 13 19 H Blood Pressure 132/69 H 128/55 H Blood Pressure Mean 90 79 Pulse Ox 97 95 Oxygen Delivery Method Room Air Room Air 01/13/25 14:00 01/13/25 15:00 Temperature Temperature Source Pulse Rate 73 73 Respiratory Rate 19 H 16 Blood Pressure 128/55 H 128/65 H Blood Pressure Mean 79 86 Pulse Ox 95 96 Oxygen Delivery Method Room Air Room Air Positive well nourished and obese Constitutional Narrative: Patient's mood and affect are depressed and flat respectively. General Appearance ED: NAD Nutritional Appearance: obese HEENT Reports moist mucous membranes normocephalic and atraumatic Eyes PERRL and EOMs intact bilaterally General Eye ED: Negative for pale conjunctiva or scleral icterus Neck no lymphadenopathy, supple and no JVD Chest Wall inspection of chest normal and palpation of chest normal Chest Narrative: Well-healed mid sternotomy scar noted. There is no pain to palpation. Resp normal respiratory effort and clear to auscultation bilaterally Cardio regular rate, regular rhythm, S1 normal heart sound, S2 normal heart sound and no murmurs GI normal to inspection, nondistended, normoactive bowel sounds, soft to palpation, non-tender, non-distended and no masses; Negative for hepatosplenomegaly GI Narrative: There is no pulsatile mass or abdominal bruit. Back/Spine no CVA tenderness and no thoracic nor lumbar tenderness Extremity normal to inspection General Extremety ED: Negative for edema General Extremity: Negative for edema Neuro oriented x3 and CN's II-XII intact bilaterally Sensorium / Orientation: awake and alert Psych Mood & Affect: depressed Skin no rashes or lesions noted and no wounds MDM MDM MDM Narrative Medical decision making narrative: Differential diagnosis would be cardiac which would be angina versus non-STEMI, noncardiac which would include reflux, peptic ulcer disease. He does endorse history of reflux. He is present no meds. Does not recall what medication he was taking. Also need to consider pulmonary. With the pain being intermittent over the last couple days doubt this is pulmonary embolus. Patient does endorse pleuritic component. This could be due to pleurisy or other causes. Patient was seen January 01 for hypertension. His blood pressure meds were changed. Patient was seen at outside facility for vascular referral consult. Discussion was related to vein mapping. Also office visit August 15, 2024 for vitreal retinal consultation. Summary was reviewed. Seen April 2024 for left-sided low back pain at [facility]. History & Record Review Additional record(s) reviewed:: Prior outpatient record, Prior ED visit and Prior labs Lab Data Attestation: I reviewed the patient's lab results. Lab results narrative: CBC reveals mild anemia. BUN and creatinine are 26 and 4.21. Patient is on hemodialysis. This could be the reason for his elevated troponin. Glucose is elevated 136 with normal CO2 anion gap. Labs: Laboratory Results - last 24 hr 01/13/25 01/13/25 13:14 15:04 WBC 6.0 RBC 3.72 L Hgb 11.6 L Hct 35.5 L MCV 95.4 H MCH 31.2 MCHC 32.7 RDW Std Deviation 50.9 H RDW Coeff of Keith 14.6 Plt Count 127 L MPV 10.7 Immature Gran % (Auto) 0.200 Neut % (Auto) 71.8 H Lymph % (Auto) 14.3 L Dixon % (Auto) 10.6 H Eos % (Auto) 2.3 Baso % (Auto) 0.8 Absolute Neuts (auto) 4.3 Absolute Lymphs (auto) 0.86 Nucleated RBC % 0 Sodium 138 Potassium 4.0 Chloride 99 Carbon Dioxide 27.4 Anion Gap 11 BUN 26 H Creatinine 4.21 H Estim Creat Clear Calc 11.97 L Est GFR (MDRD) Non-Af 14 L BUN/Creatinine Ratio 6.1 L Glucose 136 H Calcium 8.5 Troponin T High Sens 79 H* D Troponin T Hi Sens 2 Hr 75 H* Troponin on January 01 was 73. Awaiting 2-hour troponin. Second troponin is 75 with a delta of -4. This is in line with prior troponin levels. Suspect that this is chronically elevated due to the fact that he is on hemodialysis. Plan is to discharge to home. Radiography Chest X-Ray - ED: 1 View and Read by ED Physician (Patient's had prior surgery with sternal wires noted. He has pleural plaques noted. Cardiac silhouette size is unremarkable. Osseous structures reveal no acute abnormality. Prior x- ray for comparison was made patient had a history of heart failure at that time. Patient has a dialysis catheter n) Diagnostic Testing: Clinical Impression(s) from Imaging Studies Chest X-Ray 01/13/25 13:35 IMPRESSION: There is cardiomegaly with mild central vascular congestion, similar to the prior. There is infiltrate in the left midlung and right lung base, similar to the prior. There is blunting of the costophrenic angle on the right and left consistent with trace effusions, unchanged. Reading [facility] EKG Initial EKG: Attestation: I personally reviewed and interpreted this EKG as follows: Interpretation: Sinus Rhythm (Rate is 69. There is decreased anterior force. QT is prolonged. OK interval is 136 ms. QRS duration is 94 ms. QT duration is 452 ms. [place] is normal.) Treatment and Re-Evaluation :: Patient was informed of his results. Case management did see him. He has good support system. She did give him information. Discharge Plan Triage Chief Complaint: Chest Pain ED Provider: Nikolas Rose Dx/Rx/DC Orders Clinical Impression: Chest pressure, Hypertension, History of coronary artery disease, Type 2 diabetes mellitus, Anemia Instructions: ED Chest Pain, Noncardiac, ED Chest Pain, Uncertain Cause Prescriptions: No Action lorazepam [Ativan] 1 mg tablet 1 mg PO TID PRN (Reason: anxiety) Qty: 10 0RF Patient Comments: PT IS OUT OF MED nifedipine 60 mg tablet extended release 24hr 60 mg PO DAILY carvedilol 6.25 mg tablet 6.25 mg PO BID Primary Care Provider: Care Physician,No Primary Referrals: Care Physician,No Primary [Primary Care Provider] - Kanchan Tovar MD [[facility]] - 1-2 Weeks Print Language: Latvian Disposition Disposition: Home, Self Care
[2025-01-13 13:49] VITALS: BP 128/55; PULSE 73; RESP 19; O2SAT 95
[2025-01-13 14:00] VITALS: BP 128/55; PULSE 73; RESP 19; O2SAT 95
[2025-01-13 14:21] LABS: Anion Gap 11 (5-15); BUN 26 mg/dL (4-19); BUN/Creat Ratio 6.1 RATIO (10-20); Calcium,Total 8.5 mg/dL (7.6-11.0); Carbon Dioxide 27.4 mmol/L (21.0-32.0); Chloride 99 mmol/L (98-108); Creatinine, Serum 4.21 mg/dL (0.70-1.20); EST Glomerular Filtration Rate 14 (>60); Estimated Creatinine Clearance 11.97 ml/min (50-250); Glucose 136 mg/dL (70-99); Sodium Level 138 mmol/L (133-145)
[2025-01-13 14:25] LABS: Troponin T High Sensitivity 79 ng/L (<=22)
[2025-01-13 15:00] VITALS: BP 128/65; PULSE 73; RESP 16; O2SAT 96
[2025-01-13 15:34] LABS: Troponin T High Sens 2 HR 75 ng/L (<=22)
--- NOTE | 2025-01-13 15:34 | ED.RN ---
Critical Troponin of [address] Rose notified.
[2025-01-13 16:00] VITALS: BP 132/81; O2SAT 94
[2025-01-13 16:55] VITALS: BP 150/70; PULSE 75; RESP 16; TEMP 36.5; O2SAT 96
--- NOTE | 2025-01-13 18:52 | CM.ED ---
Social Work SW was consulted to meet with patient due to patients increased depression. SW introduced self to patient, explained role with [facility] and reason for visit. Patient stated that he lost his of 44 years in November and his MIL passed shortly after. Patient stated he feels that he has a lot of support, has a son and a daughter, 5 grandchildren, he is active in his jehovah's witness and talks to people on [employer] nightly. Patient also goes to dialysis 3 days a week. Patient states he has enough to keep himself busy and has plenty of people to talk to. Patient states it has been difficult to adjust but feels he has enough support and declined any additional resources including support groups and counseling. No further needs identified at this time. Mere Beltran, PROGRAMMER ANALYST, PHOTOENGRAVING PROOFER
== END 2025-01-13 17:02 | disposition home or self-care (01) ==
PROVIDERS: Emergency Provider Emergency Medicine; Visit Provider Emergency Medicine
DX: R07.89 Other chest pain (principal); N18.4 Chronic kidney disease, stage 4 (severe); I42.9 Cardiomyopathy, unspecified; E11.22 Type 2 diabetes mellitus with diabetic chronic kidney disease; E11.40 Type 2 diabetes mellitus with diabetic neuropathy, unspecified; E11.65 Type 2 diabetes mellitus with hyperglycemia; Z99.2 Dependence on renal dialysis; R06.00 Dyspnea, unspecified; I12.9 Hypertensive chronic kidney disease with stage 1 through stage 4 chronic kidney disease, or unspecified chronic kidney disease; I25.10 Atherosclerotic heart disease of native coronary artery without angina pectoris; Z87.891 Personal history of nicotine dependence; Z95.1 Presence of aortocoronary bypass graft; R79.89 Other specified abnormal findings of blood chemistry
CPT/HCPCS: 71045; 80048; 84484; 85025; 93005; 99285; A4216

== ENCOUNTER 2025-06-16 13:13 | Emergency (ER) | payer MEDICARE, BC, SELFPAY ==
[2025-06-16] VITALS (7 sets, daily range): BP systolic 168–180; BP diastolic 63–83; PULSE 85–102; RESP 16–22; TEMP 36.6–37.1; O2SAT 96–100; BMI 19.8
--- NOTE | 2025-06-16 13:30 | EKG12_ITS ---
Test Reason : SOB Blood Pressure : */* mmHG Vent. Rate : 90 BPM Atrial Rate : 90 BPM P-R Int : 106 ms QRS Dur : 96 ms QT Int : 412 ms P-R-T Axes : 31 80 87 degrees QTcB Int : 504 ms Sinus rhythm with short ME Possible Left atrial enlargement BASELINE ARTIFACT Abnormal ECG Confirmed by Loy Bull ([id number]), online editor LEMUEL HENDERSON ([id number]) on 06/17/2025 10:30:46 AM Referred By: Confirmed By: Loy Bull
--- NOTE | 2025-06-16 13:50 | RAD_ITS ---
PROCEDURE: CHEST PA AND LATERAL 06/16/2025 REASON FOR EXAM: COUGH TECHNIQUE: Procedure Code: RADCXR Modality: DX Procedure: CHEST PA AND LATERAL COMPARISON: January 13, 2025. FINDINGS: Hardware: A left-sided double-lumen catheter is seen with the tip in the right atrium. EKG electrodes are seen. Heart: Status post midline sternotomy. Mediastinum: The mediastinal contour is unremarkable. Lungs: Small bilateral pleural effusions as compared to prior study with evidence of increased markings at the lung bases worse at the right lung base superimposed on scarring. Bones: Degenerative changes are identified within the thoracic spine. RAD/Chest PA and Lateral IMPRESSION: Interval development of small bilateral pleural effusions with bibasilar atelec tasis and/or infiltrate superimposed on chronic changes. Reading Location: [id number]
[2025-06-16 15:27] LABS: Hematocrit 37.7 % (40-54); Hemoglobin 12.7 g/dL (13.0-16.5); Immature Granulocytes Count 0.010 X10^3/uL (0.0-0.0); Mean Corp Hgb Conc 33.7 g/dL (32-36); Mean Corpuscular Volume 92.6 fL (80-94); Mean Platelet Vol. 9.9 fl (6.2-12.0); NRBC Flagged by Analyzer 0 % (0-5); Platelet Count 191 K/mm3 (150-450); RBC Distribution Width CV 14.2 % (11.6-14.6); RBC Distribution Width SD 48.4 fl (35.1-43.9); Red Blood Count 4.07 M/mm3 (4.6-6.2); White Blood Count 6.2 K/mm3 (4.4-11.0)
--- NOTE | 2025-06-16 15:27 | ED.VIS.DYS ---
HPI History of Present Illness Chief Complaint: Shortness of Breath Detail of Chief Complaint: Cough and shortness of breath Informant: patient Narrative Narrative: Patient presents with cough and shortness of breath. Symptoms x 6 days. He thinks it is bronchitis. Minimal subjective fever at home. Cough productive of yellow phlegm. Today he had some shallow breathing so he called squad to bring him in. He quit smoking 30 years ago but was told years ago he may have some COPD. He does not wear home O2. Denies recent travel or surgery. Patient is a dialysis patient and his last dialysis was yesterday. Denies sick contacts. Denies chest pain other than soreness from coughing. [facility] Medical History DVT (deep venous thrombosis) Dialysis patient Carotid artery bruit Coronary artery disease Cardiomyopathy CKD (chronic kidney disease) stage 4, GFR 15-29 ml/min ZOFIA (acute kidney injury) Anemia Inguinal hernia of right side without obstruction or gangrene Easy bruising Neuropathy Former smoker Heartburn Chronic renal insufficiency, stage III (moderate) Depression Black tarry stools Diarrhea Abdominal pain Hx TIA/stroke w/o resid Mini stroke Fatigue Hypertension L eye torn retina Pseudobulbar affect Anxiety disorder Macular degeneration Kidney stones Osteoarthritis Diabetes type 2, uncontrolled Home Medications Medication Instructions Recorded Last Taken Type carvedilol 6.25 mg tablet 6.25 mg PO BID 01/13/25 01/12/25 History lorazepam 0.5 mg tablet (Ativan) 0.5 mg PO TID PRN anxiety 3 days 01/13/25 Unknown Rx #9 tabs nifedipine 60 mg tablet,extended 60 mg PO DAILY 01/13/25 01/13/25 History release 24 hr aspirin 81 mg chewable tablet 1 tab PO DAILY 06/16/25 Unknown History doxycycline monohydrate 100 mg 100 mg PO BID #20 CAPSULES 06/16/25 Unknown Rx capsule prednisone 20 mg tablet 20 mg PO BID #10 tabs 06/16/25 Unknown Rx Allergy/AdvReac Type Severity Reaction Status Date / Time lisinopril Allergy Severe raspy Verified 06/16/25 13:21 voice and cough Penicillins Allergy Anaphylaxis Verified 06/16/25 13:21 Sulfa (Sulfonamide Allergy Anaphylaxis Verified 06/16/25 13:21 Antibiotics) levofloxacin (From Levaquin) AdvReac Upset Verified 06/16/25 13:21 Stomach Family History Mother Diabetes Heart disease Hypertension CVA (cerebral vascular accident) Sister CVA (cerebral vascular accident) Heart disease Other High cholesterol Surgical History History of open heart surgery S/P laparoscopic hernia repair Previous back surgery Hx laparoscopic cholecystectomy Social History household members: none housing: house current occupational status: retired Smoking Status: Former smoker alcohol intake: never substance use type: does not use caffeine: Yes what type of physical activity do you participate in: none frequency: does not exercise ROS ROS ED Review of Systems ROS Unobtainable: other Constitutional Constitutional ED: Reports lethargy; Denies chills, fever(s), sweats or weight loss Eyes Eyes: Denies blurry vision, change in vision or diplopia ENT ENT ED: Denies rhinorrhea or sore throat Cardiovascular Cardiovascular: Denies chest pain, orthopnea or racing heartbeat Respiratory/Chest Respiratory/Chest: Reports cough, dyspnea and dyspnea on exertion; Denies orthopnea or sputum Gastrointestinal Gastrointestinal: Denies abdominal pain, diarrhea, nausea or vomiting Genitourinary Genitourinary ED: Denies dysuria, hematuria or urinary frequency Musculoskeletal Musculoskeletal: Denies arthralgias, back pain, myalgias or neck pain Integumentary Denies abscess, Abrasions or rash Neurologic Neurologic: Denies headache(s) or weakness Psychiatric Psychiatric: Denies anxiety, depression or suicidal thoughts Endocrine Endocrinology: Denies polydipsia, polyphagia or polyuria Hematologic/Lymphatic Hematologic/Lymphatic: Denies easy bleeding, easy bruising or lymphadenopathy Allergic/Immunologic Allergic/Immunologic ED: Denies mouth swelling, tongue swelling or urticaria EXAM Physical Exam Const Vital Signs: 06/16/25 13:15 06/16/25 15:45 06/16/25 15:45 Temperature 98.2 F 97.8 F Temperature Source Oral Oral Pulse Rate 102 H 86 Respiratory Rate 20 H 20 H Respiratory Effort Respiratory Depth Respiratory Pattern Blood Pressure 176/74 H 178/83 H Blood Pressure Mean 108 114 Pulse Ox 100 100 Oxygen Delivery Method Room Air Room Air Room Air 06/16/25 15:45 06/16/25 15:45 06/16/25 15:45 Temperature Temperature Source Pulse Rate 89 Respiratory Rate 20 H 20 H Respiratory Effort Short of Breath Respiratory Depth Normal Respiratory Pattern Tachypnea Blood Pressure 174/83 H Blood Pressure Mean 113 Pulse Ox 100 97 Oxygen Delivery Method Room Air Room Air Room Air 06/16/25 16:00 06/16/25 16:04 06/16/25 17:00 Temperature 97.8 F 97.9 F Temperature Source Oral Oral Pulse Rate 88 88 94 Respiratory Rate 21 H 18 22 H Respiratory Effort Respiratory Depth Respiratory Pattern Normal Blood Pressure 169/74 H 169/68 H Blood Pressure Mean 105 101 Pulse Ox 98 96 Oxygen Delivery Method Room Air Room Air Positive well nourished and well developed General Appearance ED: well developed and NAD HEENT Reports TM's clear and moist mucous membranes normocephalic and atraumatic; Negative for trauma or tenderness Tympanic Membrane ED: Yes TM's clear Eyes PERRL and EOMs intact bilaterally General Eye ED: Negative for pale conjunctiva or scleral icterus Neck no lymphadenopathy, supple and no JVD General: Negative for tenderness Chest Wall inspection of chest normal and palpation of chest normal Chest: Negative for tenderness Resp normal respiratory effort and No clear to auscultation bilaterally Resp Narrative: Good aeration bilaterally. He has some mild expiratory wheezes bilaterally. No accessory muscle use or retractions. Effort and Inspection: Negative for respiratory distress or pain with movement Auscultation: Negative for rhonchi, wheezes or diminished lung sounds Cardio regular rate, regular rhythm, S1 normal heart sound, S2 normal heart sound and no murmurs Peripheral Pulses: pulses 2+ throughout GI normal to inspection, nondistended, normoactive bowel sounds, soft to palpation, non-tender, non-distended and no masses Back/Spine no CVA tenderness and no thoracic nor lumbar tenderness Extremity normal to inspection General Extremety ED: Negative for edema General Extremity: Negative for edema Neuro oriented x3, CN's II-XII intact bilaterally, no sensory deficits noted and gait normal Sensorium / Orientation: awake, alert, oriented to person, oriented to place and oriented to time Motor Exam: strength 5/5 throughout and strength abnormal Psych mental status grossly normal Skin no rashes or lesions noted and no wounds MDM MDM MDM Narrative Medical decision making narrative: Patient presents with cough and wheezing. Clinically looks well. Symptoms for over 6 days. Suspect viral etiology versus pneumonia. He has not been having chest pain do not suspect acute coronary syndrome. EKG obtained on arrival showed a sinus rhythm with ventricular rate of 90 bpm with left atrial enlargement with a rate of 90 bpm. CBC with differential obtained showed white count 6.2 with hemoglobin 12.7 and platelet count of 191. Chemistries unremarkable. BUN 26 and creatinine 5.5. Troponin was 106 and 2-hour delta troponin was 97. Patient appears to chronically have an elevated troponin I suspect this is due to his chronic renal disease. Do not feel he is having an acute coronary syndrome. 1 view chest x-ray obtained showed small pleural effusions and bibasilar atelectasis versus infiltrate. While in the department he received DuoNeb aerosols and was given prednisone. Suspect an asthmatic bronchitis. He will be given an albuterol MDI for home as well as prednisone and doxycycline. Given first dose of doxycycline in the emergency department. Patient is not hypoxic and in no respiratory distress. Lab Data Attestation: I reviewed the patient's lab results. Labs: Laboratory Results - last 24 hr 06/16/25 06/16/25 15:15 17:25 WBC 6.2 RBC 4.07 L Hgb 12.7 L Hct 37.7 L MCV 92.6 MCH 31.2 MCHC 33.7 RDW Std Deviation 48.4 H RDW Coeff of Keith 14.2 Plt Count 191 MPV 9.9 Immature Gran % (Auto) 0.200 Neut % (Auto) 70.4 H Lymph % (Auto) 11.4 L Bulloch % (Auto) 15.0 H Eos % (Auto) 2.0 Baso % (Auto) 1.0 Absolute Neuts (auto) 4.3 Absolute Lymphs (auto) 0.70 L Nucleated RBC % 0 Sodium 140 Potassium 3.3 Chloride 98 Carbon Dioxide 27.9 Anion Gap 14 BUN 26 H Creatinine 5.50 H Est GFR (MDRD) Non-Af 10 L BUN/Creatinine Ratio 4.7 L Glucose 139 H Calcium 9.0 Troponin T High Sens 106 H* D Troponin T Hi Sens 2 Hr 97 H* Radiography Diagnostic Testing: Clinical Impression(s) from Imaging Studies Chest X-Ray 06/16/25 13:50 IMPRESSION: Interval development of small bilateral pleural effusions with bibasilar atelectasis and/or infiltrate superimposed on chronic changes. Reading Location: [facility] 1 view chest x-ray obtained interpreted by myself as small pleural effusions bilaterally with some increased markings in both lower lobes. Radiology in agreement. EKG Initial EKG: Attestation: I personally reviewed and interpreted this EKG as follows: Comments: Sinus rhythm with rate of 90 bpm with left atrial enlargement Discharge Plan Triage Chief Complaint: Shortness of Breath ED Provider: Lena Mcfarland Dx/Rx/DC Orders Clinical Impression: Acute asthmatic bronchitis Instructions: ED Bronchitis with Wheezing (Adult) Prescriptions: New doxycycline monohydrate 100 mg capsule 100 mg PO BID Qty: 20 0RF prednisone 20 mg tablet 20 mg PO BID Qty: 10 0RF No Action aspirin 81 mg tablet,chewable 1 tab PO DAILY nifedipine 60 mg tablet extended release 24hr 60 mg PO DAILY carvedilol 6.25 mg tablet 6.25 mg PO BID lorazepam [Ativan] 0.5 mg tablet 0.5 mg PO TID PRN (Reason: anxiety) 3 Days Qty: 9 0RF Primary Care Provider: Kalyani Andrade Referrals: Kalyani Andrade, CABLE SPLICER APPRENTICE-C [Primary Care Provider, Family Practice] - 3-5 Days Print Language: Estonian Disposition Disposition: Home, Self Care
[2025-06-16 15:48] LABS: Anion Gap 14 (5-15); BUN 26 mg/dL (4-19); BUN/Creat Ratio 4.7 RATIO (10-20); Calcium,Total 9.0 mg/dL (7.6-11.0); Carbon Dioxide 27.9 mmol/L (21.0-32.0); Chloride 98 mmol/L (98-108); Glucose 139 mg/dL (70-99); Potassium 3.3 mmol/L (3.3-5.1)
[2025-06-16 15:51] LABS: Troponin T High Sensitivity 106 ng/L (<=22)
[2025-06-16 18:31] LABS: Troponin T High Sens 2 HR 97 ng/L (<=22)
[2025-06-16] MEDS: Albuterol Sulfate 8 gm Inhaler (60 puffs) 2 PUFF INHALATION (18:49)
== END 2025-06-16 18:54 | disposition home or self-care (01) ==
PROVIDERS: Emergency Provider Emergency Medicine; PCP Nurse Practitioner Family; Visit Provider Emergency Medicine
DX: J45.909 Unspecified asthma, uncomplicated (principal); Z87.891 Personal history of nicotine dependence
CPT/HCPCS: 36415; 71046; 80048; 84484; 85025; 87631; 93005; 94640; 94760; 99285; A4216

== ENCOUNTER 2025-06-24 06:58 | Inpatient (IN) | payer MEDICARE, BC, SELFPAY ==
[2025-06-24] VITALS (43 sets, daily range): BP systolic 112–228; BP diastolic 58–175; PULSE 74–100; RESP 16–27; TEMP 36.4–36.8; O2SAT 92–99; BMI 19.7; BMI 19.0; BMI 18.5
--- NOTE | 2025-06-24 07:20 | ED.VIS.DYS ---
HPI History of Present Illness Chief Complaint: Shortness of Breath Informant: patient and EMS Narrative Narrative: Patient is a 80-year-old male with a history of COPD, ESRD on dialysis, and prior CABG, presenting with dyspnea and persistent cough. - Reports being diagnosed with bronchitis last week, with symptoms starting about 2 weeks ago. - Has been experiencing frequent coughing fits, unable to expectorate sputum. - During coughing episodes, experiences difficulty catching breath, leading to shallow breathing; these episodes have occurred multiple times since symptom onset. - Associated symptoms include dry heaves and anxiety during coughing fits. - Reports elevated blood pressure readings at home, with the most recent reading yesterday in the 140s. - Denies fevers, chest pain, or new lower extremity edema. - Has a history of COPD, diagnosed back in the day after smoking. - Underwent CABG last November. - Has a dialysis catheter; missed dialysis session this morning due to symptoms. - Received two nebulizer treatments en route to the ED, which provided significant relief. [facility] Medical History DVT (deep venous thrombosis) Dialysis patient Carotid artery bruit Coronary artery disease Cardiomyopathy CKD (chronic kidney disease) stage 4, GFR 15-29 ml/min ZOFIA (acute kidney injury) Anemia Inguinal hernia of right side without obstruction or gangrene Easy bruising Neuropathy Former smoker Heartburn Chronic renal insufficiency, stage III (moderate) Depression Black tarry stools Diarrhea Abdominal pain Hx TIA/stroke w/o resid Mini stroke Fatigue Hypertension L eye torn retina Pseudobulbar affect Anxiety disorder Macular degeneration Kidney stones Osteoarthritis Diabetes type 2, uncontrolled Home Medications ?Medication ?Instructions ?Recorded ?Last Taken ?Type carvedilol 6.25 mg tablet 6.25 mg PO BID 01/13/25 01/12/25 History lorazepam 0.5 mg tablet (Ativan) 0.5 mg PO TID PRN anxiety 3 days 01/13/25 Unknown Rx #9 tabs nifedipine 60 mg tablet,extended 60 mg PO DAILY 01/13/25 01/13/25 History release 24 hr aspirin 81 mg chewable tablet 1 tab PO DAILY 06/16/25 Unknown History doxycycline monohydrate 100 mg 100 mg PO BID #20 CAPSULES 06/16/25 Unknown Rx capsule prednisone 20 mg tablet 20 mg PO BID #10 tabs 06/16/25 Unknown Rx Allergy/AdvReac Type Severity Reaction Status Date / Time lisinopril Allergy Severe raspy Verified 06/24/25 06:59 voice and cough Penicillins Allergy Anaphylaxis Verified 06/24/25 06:59 Sulfa (Sulfonamide Allergy Anaphylaxis Verified 06/24/25 06:59 Antibiotics) levofloxacin (From Levaquin) AdvReac Upset Verified 06/24/25 06:59 Stomach Family History Mother Diabetes Heart disease Hypertension CVA (cerebral vascular accident) Sister CVA (cerebral vascular accident) Heart disease Other High cholesterol Surgical History History of open heart surgery S/P laparoscopic hernia repair Previous back surgery Hx laparoscopic cholecystectomy Social History household members: none housing: house current occupational status: retired Smoking Status: Former smoker alcohol intake: never substance use type: does not use caffeine: Yes what type of physical activity do you participate in: none frequency: does not exercise ROS ROS ED Constitutional Constitutional ED: Denies chills or fever(s) Eyes Eyes: Denies change in vision or diplopia ENT ENT ED: Denies rhinorrhea or sore throat Cardiovascular Cardiovascular: Denies chest pain or palpitations Respiratory/Chest Respiratory/Chest: Reports cough and dyspnea; Denies sputum Gastrointestinal Gastrointestinal: Reports other Details: occasional posttussive emesis ; Denies abdominal pain, diarrhea or nausea Genitourinary Genitourinary ED: Denies dysuria or hematuria Musculoskeletal Musculoskeletal: Denies back pain or neck pain Integumentary Denies abscess or rash Neurologic Neurologic: Denies headache(s), paresthesias or weakness Psychiatric Psychiatric: Denies anxiety or suicidal thoughts EXAM Physical Exam Const Vital Signs: 06/24/25 06:59 06/24/25 07:03 06/24/25 07:03 Temperature 97.7 F L 97.7 F L Temperature Source Oral Oral Pulse Rate 100 100 Respiratory Rate 20 H 20 H Respiratory Effort Short of Breath Labored Respiratory Depth Shallow Respiratory Pattern Tachypnea Blood Pressure 228/105 H 228/105 H Blood Pressure Mean 146 146 Pulse Ox 94 94 Oxygen Delivery Method Room Air Room Air Room Air Oxygen Flow Rate (L/min) 06/24/25 07:17 06/24/25 07:58 06/24/25 08:01 Temperature Temperature Source Pulse Rate 90 94 Respiratory Rate 18 16 Respiratory Effort Respiratory Depth Respiratory Pattern Blood Pressure 209/95 H 209/95 H Blood Pressure Mean 133 133 Pulse Ox 96 94 Oxygen Delivery Method Nasal Cannula Nasal Cannula Oxygen Flow Rate (L/min) 1 1 06/24/25 08:03 06/24/25 08:30 06/24/25 08:41 Temperature 98 F Temperature Source Oral Pulse Rate 92 96 95 Respiratory Rate 18 19 H 21 H Respiratory Effort Respiratory Depth Respiratory Pattern Blood Pressure 209/95 H 211/108 H 193/150 H Blood Pressure Mean 133 136 160 Pulse Ox 98 92 95 Oxygen Delivery Method Nasal Cannula Oxygen Flow Rate (L/min) 1 06/24/25 08:45 06/24/25 08:57 06/24/25 09:00 Temperature Temperature Source Pulse Rate 97 100 95 Respiratory Rate 21 H 27 H 16 Respiratory Effort Respiratory Depth Respiratory Pattern Blood Pressure 213/108 H 203/175 H Blood Pressure Mean 135 185 Pulse Ox 94 96 95 Oxygen Delivery Method Oxygen Flow Rate (L/min) 06/24/25 09:07 Temperature Temperature Source Pulse Rate 92 Respiratory Rate 17 Respiratory Effort Respiratory Depth Respiratory Pattern Blood Pressure 146/130 H Blood Pressure Mean 136 Pulse Ox 94 Oxygen Delivery Method Oxygen Flow Rate (L/min) Positive well nourished and well developed General Appearance ED: well developed and NAD HEENT Reports moist mucous membranes normocephalic and atraumatic Eyes PERRL and EOMs intact bilaterally Neck full ROM, no lymphadenopathy, supple, no meningeal signs and no JVD Resp Resp Narrative: Little tachypnea. Mild expiratory wheezes throughout otherwise lungs clear. Able to converse in full sentences. Cardio regular rate, regular rhythm and no murmurs GI non-tender and non-distended Auscultation: normoactive bowel sounds Palpation: soft Back/Spine no CVA tenderness General Back: other FROM Extremity normal to inspection General Extremety ED: Negative for edema, pulses abnormal or tenderness General Extremity: Negative for edema or pulses abnormal Neuro oriented x3, CN's II-XII intact bilaterally and no sensory deficits noted Sensorium / Orientation: awake and alert Motor Exam: strength 5/5 throughout Psych mental status grossly normal Skin no rashes or lesions noted and no wounds MDM MDM MDM Narrative Medical decision making narrative: The patient had a couple of nebulizer treatments, which he states helped a little, but he remains slightly wheezy and dyspneic, though not in respiratory distress. We observed him while performing testing. The EKG shows no changes compared to his prior, with no acute injury pattern. He has a couple of PVCs. There may be mild lateral ST depressions suggesting strain. He is not having chest pressure or other symptoms of acute coronary syndrome right now, only dyspnea. Two-view chest x-ray interpreted by myself shows cephalization and venous congestion. According to radiology, there may also be a mass-like density in the left upper lobe. This was not noted on his prior x-ray, but on reviewing the images, there is a shadow in that region. Regarding labs, he has a mild leukocytosis of 12.4, but he has been on prednisone recently, which may relate. He has chronic renal failure, and his electrolytes are acceptable at present. His proBNP is 41,657, which is quite high but may be expected to some degree given his renal failure. Unfortunately, there is no previous reading for comparison. More concerning is his blood pressure, which remains in the 220s even after hydralazine and his home medications, with a current reading of 209/95. This may be causing CHF or it may be reflexively related. It is possible he has had infectious bronchitis for the last two weeks, or that it is CHF-related, or he may have acute CHF on top of his current illness. Given his hypertensive urgency/emergency and acute congestive heart failure exacerbation, I believe he should be started on a Cardene drip?which we initiated in the ER?to lower his blood pressure to about 160, and then admitted to the hospital. I discussed dialysis arrangements with his stock control clerk, Dr. Chew, and ICU admission with the hospitalist. I am sending troponin series. Review of his prior echocardiogram from last year shows an ejection fraction of 45%, mild mitral insufficiency, and Stage 1 diastolic dysfunction. History & Record Review Additional record(s) reviewed:: Prior outpatient record (echo) Lab Data Attestation: I reviewed the patient's lab results. Labs: Laboratory Results - last 24 hr 06/24/25 07:30 WBC 12.4 H RBC 4.00 L Hgb 12.2 L Hct 36.8 L MCV 92.0 MCH 30.5 MCHC 33.2 RDW Std Deviation 46.8 H RDW Coeff of Keith 13.8 Plt Count 277 MPV 10.0 Immature Gran % (Auto) 0.700 Neut % (Auto) 85.2 H Lymph % (Auto) 7.8 L [place] % (Auto) 5.7 Eos % (Auto) 0.4 Baso % (Auto) 0.2 Absolute Neuts (auto) 10.6 H Absolute Lymphs (auto) 0.97 Nucleated RBC % 0 Sodium 138 Potassium 3.5 Chloride 97 L Carbon Dioxide 24.3 Anion Gap 16 H BUN 60 H Creatinine 5.81 H Estim Creat Clear Calc 9.25 L* Est GFR (MDRD) Non-Af 9 L BUN/Creatinine Ratio 10.3 Glucose 127 H Calcium 9.0 [place] [address] H Radiography Diagnostic Testing: Clinical Impression(s) from Imaging Studies Chest X-Ray 06/24/25 07:40 IMPRESSION: There is cardiomegaly with increased central vascular markings and interstitial markings consistent with CHF. There is a 5.5 cm masslike density in the left midlung. Trace bilateral effusions are present. Reading [facility] Rhythm Strip Rhythm Strip: Sinus Rhythm Rate: 100 Ectopy: PVC(s) EKG Initial EKG: Attestation: I personally reviewed and interpreted this EKG as follows: Interpretation: Sinus Rhythm and No Acute Injury Pattern Comments: PVCs. [address] depression lateral precordial leads without reciprocal changes Prior EKG tracings: available for review Prior: Changed Management Discussion w/another healthcare provider: Hospitalist and Youth Development Professional (Nephrology Dr. Allen) Critical Care Time Critical Care Time: Yes Critical care time (excluding procedures): 30-74 minutes (35 min), Including time spent:, Discussing w/Patient &/or Family/Die Repairer Stamping, Discussing w/Consultants, Arranging Admission or Transfer and Performing Direct Patient Care at Bedside Discharge Plan Triage Chief Complaint: Shortness of Breath ED Provider: Edy Joshi Dx/Rx/DC Orders Clinical Impression: Hypertensive emergency, Acute on chronic combined systolic and diastolic congestive heart failure, ESRD on dialysis, Acute bronchitis, Abnormal findings on diagnostic imaging of lung Prescriptions: No Action aspirin 81 mg tablet,chewable 1 tab PO DAILY doxycycline monohydrate 100 mg capsule 100 mg PO BID Qty: 20 0RF prednisone 20 mg tablet 20 mg PO BID Qty: 10 0RF nifedipine 60 mg tablet extended release 24hr 60 mg PO DAILY carvedilol 6.25 mg tablet 6.25 mg PO BID lorazepam [Ativan] 0.5 mg tablet 0.5 mg PO TID PRN (Reason: anxiety) 3 Days Qty: 9 0RF Primary Care Provider: Kalyani Andrade Referrals: Kalyani Andrade, SENIOR PRODUCT CONSULTANT[facility] [Primary Care Provider, Family Practice] Print Language: Malian
--- NOTE | 2025-06-24 07:40 | RAD_ITS ---
PROCEDURE: CHEST PA AND LATERAL 06/24/2025 REASON FOR EXAM: COUGH SOB TECHNIQUE: Procedure Code: RADCXR Modality: DX Procedure: CHEST PA AND LATERAL COMPARISON: June 16, 2025 FINDINGS: There is a central line on the left with its tip centrally located. Sternotomy fixation devices and wires are noted. There is cardiomegaly with increased central vascular markings and interstitial markings consistent with CHF. There is a 5.5 cm masslike density in the left midlung. Trace bilateral effusions are present. There is no pneumothorax. Aortic calcifications are noted. There is no acute bony abnormality. RAD/Chest PA and Lateral IMPRESSION: There is cardiomegaly with increased central vascular markings and interstitial markings consistent with CHF. There is a 5.5 cm masslike density in the left midlung. Trace bilateral effusions are present. Reading Location: [facility]
[2025-06-24 07:41] LABS: Hematocrit 36.8 % (40-54); Hemoglobin 12.2 g/dL (13.0-16.5); Immature Granulocytes Count 0.090 X10^3/uL (0.0-0.0); Mean Corp Hgb Conc 33.2 g/dL (32-36); Mean Corpuscular Volume 92.0 fL (80-94); Mean Platelet Vol. 10.0 fl (6.2-12.0); NRBC Flagged by Analyzer 0 % (0-5); Platelet Count 277 K/mm3 (150-450); RBC Distribution Width CV 13.8 % (11.6-14.6); RBC Distribution Width SD 46.8 fl (35.1-43.9); Red Blood Count 4.00 M/mm3 (4.6-6.2); White Blood Count 12.4 K/mm3 (4.4-11.0)
--- OUTSIDE RECORDS SUMMARY | 2025-06-24 07:45 | XMS RPT_ITS | CCD ---
Author Organization [facility] [employer] Care Team Providers Care Interactive Marketing Strategist Name Role Phone Gabriel, Olena Unavailable Unavailable PROVIDER, UNKNOWN Unavailable Unavailable Gabriel, Olena Unavailable Unavailable Gabriel, Olena Unavailable Unavailable PROVIDER, UNKNOWN Unavailable Unavailable Gabriel, Olena Unavailable Unavailable PROVIDER, UNKNOWN Unavailable Unavailable Gabriel, Olena Unavailable Unavailable Gabriel, Olena Unavailable Unavailable Dr. Morteza Anderson Chi Primary Care Provider Dr. Morteza Anderson Chi Referring Provider Dr. Neo Vallejo Attending Provider [phone] Dr. Neo Vallejo Referring Provider Dr. Neo Vallejo Other Provider Harvey APPLICATION DBA, APPLICATION DBA-C Olena Primary Care Provider Harvey APPLICATION DBA, APPLICATION DBA-C Olena Primary Care Provider Dr. Prasanth Urena Attending Provider Dr. Zach Street Referring Provider Harvey APPLICATION DBA, APPLICATION DBA-C Olena Referring Provider [phone] Gabriel, Olena Primary Care Provider Dolly Duron RN Unavailable Unavailabl e Harvey MANAGER OF PROJECT MANAGEMENT.Olena SEGOVIA Primary Care Provide r Harvey Olena Primary Care Provider Dolly Duron RN Unavailable UnavailToño Villalobos MD Unavailable Dolly Duron RN Unavailable Unavailernesto Luther MANAGER OF PROJECT MANAGEMENT - LUCA Sammy Primary Care Provider LUTHER, SAMMY Primary Care Unavailable DANYEL, YATISH Admitting Unavailable DANYEL, YATISH Attending Unavailable ARGEKAR, KATI A Consulting Unavailable JUAN C TURNER Primary Care Unavailable SHAW, ZACH Admitting Unavailable SHAW, ZACH Attending Unavailable ARGEKAR, KATI A Consulting Unavailable LUTHER, SAMMY Primary Care Unavailable GABRIEL, OLENA L Primary Care Unavailable BRIANA, THI LIRA Admitting Unavailable SUNSHINE HARTLEY Attending Unavailable PROVIDER, UNKNOWN Consulting Unavailable GABRIEL, OLENA L Primary Care Unavailable BRIANA, THI LIRA Admitting Unavailable JING PEOPLES JR Attending Unavaila ble ARGEKAR, KATI A Consulting Unavailable GABRIEL, OLENA L Primary Care Unavailable ANDRY, RAVKIRAN Admitting Unavailable ANDRY, RAVKIRAN Attending Unavailable YORDY NARIMAN A Consulting Unavailable JAMIA CRAIN Attending Unavaila ble LUTHER, SAMMY Primary Care Unavailable GABRIEL, OLENA L Primary Care Unavailable LETICIA PALACIOS Attending Unavailernesto Bailey MD, [facility] Primary Care Provider Sindy RN, Fina Unavailable TONIE SOTO Consulting Unavailable GABRIEL, OLENA L Primary Care Unavailable GABRIELA BUCKI Attending Unavailable NO JESSICA Admitting Unavailable Dr. Lena Mcfarland DO Emergency Provider Care Physician, No Primary Primary Care Provider Unavailable Dr. Lena Mcfarland DO Attending Provider Dr. Jakob Allen MD Attending Provider Dr. Jakob Allen MD Referring Provider Dr. Emmanuel Freeman MD Attending Provider [phone] Milton IRBY, Dr. Connor Emergency Provider Dr. Nikloas Rose MD Attending Provider Bridenthal APPLICATION DBA-C, Kalyani Primary Care Provider Maria M IRBY, Marylin Bueno Primary Care Provider Bridenthal MANAGER OF PROJECT MANAGEMENT - INTEGRATION ENGINEER, Kalyani Unavailable Bridenthal MANAGER OF PROJECT MANAGEMENT - INTEGRATION ENGINEER, Kalyani Unavailable Luther MANAGER OF PROJECT MANAGEMENT - INTEGRATION ENGINEER, Sammy Primary Care Provider Bridenthal APPLICATION DBA-C, Kalyani Primary Care Physician Bridenthal APPLICATION DBA-C, Kalyani Referring Provider Erin Bueno Attending Physician MARIA M, MARYLIN Primary Care Unavailable MARIA M, MARYLIN Primary Care Unavailable BRIDENTHAL, KALYANI Attending Unavailable MARIA M, MARYLIN Primary Care Unavailable BRIDENTHAL, KALYANI Referring Unavailable SAMAD, AMY Attending Unavailable MARIA M, MARYLIN Primary Care Unavailable BRIDENTHAL, KALYANI Attending Unavailable LUTHER, SAMMY Primary Care Unavailable BRIDENTHAL, KALYANI Attending Unavailable MARIA M, MARYLIN Primary Care Unavailable SAMAD, AMY Attending Unavailable SAMAD, AMY Referring Unavailable MARIA M, MARYLIN Primary Care Unavailable Tiffany, Shinyaprakas Attending Unavailable Tiffany, Jayaprakas Referring Unavailable Care Physician, No Primary Primary Care Unava ilable Bridenthal, Kalyani Primary Care Unavailable Ungur, Remus Attending Unavailable Ungur, Remus Attending Unavailable Care Physician, No Primary Primary Care Unava ilable Rose, Nikolas Attending Unavailable Care Physician, No Primary Primary Care Unava ilable Bridenthal, Kalyani Primary Care Unavailable Bridenthal, Kalyani Referring Unavailable Erin Gonzalez Attending Unavailable Holland, Emmanuel Attending Unavailable Care Physician, No Primary Primary Care Unava ilable Bridenthal, Kalyani Primary Care Unavailable TiffanyShin barrowyaprakas Referring Unavailable Emmanuel Freeman Attending Unavailable Allergies Allergy Classification Reported Allergen(s) Allergy Type Date of Onset Reaction(s) Facility Penicillins (antibiotic) (2 sources) Penicillins Drug Allergy 4 Anaphylaxis [facility] Quinolones (antibiotic) (2 sources) levoFLOXacin Drug Allergy 4 Nausea Only [facility] Sulfonamides (antibiotic) (2 sources) Sulfonamides (Antibiotic) Drug Allergy 4 Anaphylaxis [facility] (20 sources) levoFLOXacin; Translations: [LEVOFLOXACIN] Drug Allergy 8 Nausea Only, Rash [facility] (12 sources) Lisinopril Drug Allergy 1 raspy voice and cough [facility] (20 sources) Penicillins; Translations: [PENICILLINS] Allergy to substance 8 Anaphylaxis, Hives, Swelling [facility] (18 sources) Sulfonamides (Antibiotic); Translations: [SULFA (SULFONAMIDE ANTIBIOTICS)] Allergy to substance 8 Hives, Swelling [facility] (20 sources) Lisinopril Propensity to adverse reactions 9 Wheezing [facility] (20 sources) Sulfonamides (Antibiotic) Propensity to adverse reactions 8 Anaphylaxis, Hives, Swelling [facility] (1 source) levoFLOXacin Drug Allergy 5 [facility] (1 source) Lisinopril Drug Allergy 5 [facility] Medications Current Medications Medication Drug Class(es) Dates Sig (Normalized) Sig (Original) acetaminophen 500 mg oral tablet (20 sources) Start: 05-08-2024 take 2 tablets by mouth every eight hours as needed acetaminophen (TYLENOL) 500 mg tablet Take 2 tablets by mouth every 8 hours as needed for pain. 90 tablet 05/08/2024 Active Start: 02-27-2024 End: 04-30-2025 take 2 tablets by mouth every six hours as needed for pain acetaminophen (Tylenol) 325 MG tablet Take 2 tablets (650 mg) by mouth every 6 hours as needed for mild pain (1-3). 30 tablet 02/27/2024 04/30/2025 Discontinued (Med list cleanup) Start: 01-23-2024 End: 02-27-2024 take 650 mg by mouth every six hours as needed for pain Start: 12-25-2023 End: 01-04-2024 take 2 tablets by mouth every six hours as needed for pain acetaminophen (Tylenol) 325 MG tablet Take 2 tablets (650 mg) by mouth every 6 hours as needed for mild pain (1-3) for up to 10 days. 0 12/25/2023 01/04/2024 Active [id number] 200 actuat albuterol 0.09 mg/actuat metered dose inhaler (1 source) beta2-Adrenergic Agonist Start: 10-09-2024 End: 11-08-2024 take 1-2 puff(s) by inhalation every six hours as needed for wheezing albuterol HFA (PROVENTIL HFA) 90 mcg/actuation inhaler Inhale 1-2 Puffs as instructed every 6 hours as needed for wheezing/shortness of breath. 8 g 1 10/09/2024 11/08/2024 Active albuterol 0.833 mg/ml / ipratropium bromide 0.167 mg/ml inhalation solution (20 sources) Anticholinergic, beta2-Adrenergic Agonist Start: 05-08-2024 take 3 mL by inhalation every eight hours as needed ipratropium-albuterol (DUONEB) 0.5 mg-3 mg(2.5 mg base)/3 mL nebu Inhale 3 mL as instructed three times a day as needed for wheezing/shortness of breath. 30 mL 05/08/2024 Active Start: 01-26-2024 End: 01-31-2024 3 mL, Nebulization, 2 times daily, First dose (after last modification) on 01/26/24 at 0800 Start: 12-25-2023 End: 02-26-2025 ipratropium-albuterol (Duo-N eb) 0.5-2.5 mg/3 mL nebulizer solution Take 3 mL by nebulization 3 times daily as needed for wheezing or shortness of breath. 180 mL 02/27/2024 01/29/2025 Discontinued Start: 12-25-2023 End: 02-26-2025 ipratropium-albu terol (DUONEB) 0.5 mg-3 mg(2.5 mg base)/3 mL nebu Inhale 3 mL as instructed. Suspended aspirin 81 mg chewable tablet (20 sources) Platelet Aggregation Inhibitor, Nonsteroidal Anti-inflammatory Drug Start: 04-30-2025 End: 04-30-2026 aspirin 81 MG chewable tablet Chew 1 tablet (81 mg) daily. 30 tablet 04/30/2025 04/30/2026 Active Start: 12-26-2023 End: 02-26-2025 aspirin 81 MG chewable table t Chew 1 tablet (81 mg) daily. 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 90 tablet 3 04/30/2025 07/29/2025 Active Start: 10-02-2023 End: 01-13-2025 take 1 tablet by mouth once daily Atorvastatin 20 mg tablet Discontinued 20 mg PO DAILY 90 3 October 02, 2023 1:00am January 13, 2025 1:29pm cholesterol azithromycin 500 mg oral tablet (1 source) Macrolide Antimicrobial Start: 10-10-2024 End: 10-13-2024 take 1 tablet by mouth once daily azithromycin (ZITHROMAX) 500 mg tablet Take 1 tablet by mouth once daily for 3 days. 3 tablet 10/10/2024 10/13/2024 Active benzonatate 100 mg oral capsule (13 sources) Non-narcotic Antitussive Start: 10-09-2024 End: 10-16-2024 take 1 capsule by mouth every eight hours as needed benzonatate (TESSALON PERLE) 100 mg capsule Take 1 capsule by mouth three times a day as needed for cough for up to 7 days. 21 capsule 10/09/2024 10/16/2024 Active Start: 05-05-2020 End: 07-14-2020 take 1 capsule by mouth three times daily as needed for cough Benzonatate 200 mg capsule Discontinued 200 mg PO THREE TIMES A DAY as needed for cough 60 May 05, 2020 12:00am July 14, 2020 7:01pm Blood-Glucose Meter (1 source) Start: 10-09-2024 Blood-Glucose Meter Check blood glucose - fasting daily 1 Each 10/09/2024 Active carvedilol 12.5 mg oral tablet (20 sources) alpha-Adrenerg ic Sergio, beta-Adrenergi c Sergio Start: 04-30-2025 take 1 tablet by mouth twice daily at mealtime carvedilol (Coreg) 12.5 MG tablet Take 1 tablet (12.5 mg) by mouth 2 times daily (with meals). On non-dialysis days 120 tablet 3 04/30/2025 Active Start: 05-26-2024 take 3.125 mg by mouth once 3. 125 mg, Oral, Once, On 05/26/24 at 0510, For 1 dose Start: 02-12-2024 End: 01-29-2025 take 1 tablet by mouth twice daily at mealtime carvedilol (COREG) 3.125 mg tablet Take 1 tablet by mouth two times a day with meals. 60 tablet 05/08/2024 Active Start: 01-08-2024 End: 04-30-2025 take 1 tablet by mouth twice daily Carvedilol 6.25 mg tablet Active 6.25 mg PO TWICE A DAY January 13, 2025 12:00am Complies with drug therapy cefdinir 300 mg oral capsule (13 sources) Cephalosporin Antibacterial Start: 10-10-2024 End: 10-14-2024 cefdinir (OMNICEF) 300 mg capsule Take 1 capsule by mouth every 48 hours for 4 days. Take on Sunday10/10/24 and Sunday10/12/24. Patient should start on October 10, 2024. 2 capsule 10/10/2024 10/14/2024 Active Start: 07-14-2020 End: 07-20-2020 take 1 capsule by mouth twice daily Cefdinir 300 mg capsule Discontinued 300 mg PO TWICE A DAY 28 0 July 14, 2020 1:00am July 20, 2020 4:24pm cholecalciferol 0.125 mg oral capsule (5 sources) Vitamin D cholecalciferol (Vitamin D-3) 125 MCG (5000 UT) capsule Take 125 mcg by mouth. Active Continuous Glucose [employer] (FreeStyle Roger 2 [place]) device (4 sources) Start: Continuous Glucose [employer] Associate (FreeStyle Roger 2 [place]) device Check blood glucose four times a day 06/11/2024 Active Continuous Glucose Sensor (FreeStyle Roger 2 Sensor) misc (4 sources) Start: Continuous Glucose Sensor (FreeStyle Roger 2 Sensor) misc every 14 (fourteen) days. Change sensor 01/01/2025 Active Continuous Glucose Sensor (FreeStyle Roger 3 Sensor) misc (13 sources) Start: 025 Continuous Glucose Sensor (FreeStyle Roger 3 Sensor) misc Indications: Type 2 diabetes mellitus with other diabetic kidney complication, with long-term current use of insulin (HCC) 1 Device every 15 days. 2 each 11 03/31/2025 Active 0.5 ml dulaglutide 1.5 mg/ml auto-injector (1 source) GLP-1 Receptor Agonist Start: Dulaglutide (Trulicity) 0.75 mg/0.5 mL pen injector Active 0.75 MG SC EVERY WEEK May 23, 2021 8:59pm 12 hr guaiFENesin 600 mg extended release oral tablet (1 source) Start: End: take 1 tablet by mouth twice daily guaiFENesin (MUCINEX) 600 mg 12 hr tablet Take 1 tablet by mouth two times a day for 14 days. 28 tablet 10/09/2024 10/23/2024 Active 3 ml insulin glargine 100 unt/ml pen injector (17 sources) Insulin Analog Start: inject 4 [IU] by subcutaneous injection once daily at bedtime insulin glargine 100 unit/mL (3 mL) Inject 4 Units subcutaneously daily at bedtime. DO NOT Take until you follow-up with your PCP 10/09/2024 Active Start: 02-13-2024 End: 02-27-2024 Start: 12-25-2023 End: 01-29-2025 inject 7 [IU] by subcutaneous injection once daily insulin glargine (Lantus) 100 UNIT/ML injection Inject 7 Units under the skin Nightly. 10 mL 12 02/27/2024 01/29/2025 Discontinued 3 ml insulin lispro 100 unt/ml pen injector (8 sources) Insulin Analog Start: 10-09-2024 insulin lispro (HUMALOG KWIKPEN INSULIN) 100 unit/mL Administer three times daily with meals ADMINISTER CORRECTIONAL INSULIN REGARDLESS OF MEAL OR NUTRITION INTAKE Scale 1 If Blood Glucose (mg/dL) is: Less than 110 Give 0 units 111-150 Give 0 units 151-200 Give 1 unit 201-250 Give 2 units 251-300 Give 3 units 301-350 Give 4 units 351-400 Give 5 units Greater than 400 Give 5 units and Notify Provider Notify provider if 2 consecutive blood glucose values in the previous 24 hours are greater than 250 mg/dL and there have been no changes to the insulin regimen in the previous 24 hours. 3 mL 1 10/09/2024 Active Start: 02-29-2024 End: 01-29-2025 Insulin Lispro (Humalog) 100 UNIT/ML solution injection Inject 0-6 Units under the skin 3 times daily (with meals) AND 0-6 Units Nightly. Low Dose Correction Algorithm: LESS than 139- No Insulin, 140-199- 1 Unit, 200-249- 2 Units, 250-299- 3 Units, 300-349- 4 Units, 350-400- 5 Units, Above 400- 6 Units. 10 mL 12 02/29/2024 01/29/2025 Discontinued Start: 02-27-2024 iron sucrose 200 mg in sodium chloride 0.9 % 100 mL IVPB (3 sources) Start: 01-30-2024 End: 02-03-2024 iron sucrose 200 mg in sodium chloride 0.9 % 100 mL IVPB Infuse 200 mg into a venous catheter Every 24 hours for 4 doses. 1 each 01/30/2024 02/03/2024 Active lidocaine 0.04 mg/mg medicated patch (8 sources) Antiarrhythmic, Amide Local Anesthetic Start: 02-20-2024 End: 03-29-2024 apply 1 dose transdermal route once daily Lidocaine 4 % patch Place 1 patch on the skin daily. 30 patch 02/28/2024 03/29/2024 Active Start: 01-24-2024 End: 01-24-2024 As needed, Starting on Josie at 1340, Intraprocedure lidocaine HCL 4 % ptmd Apply to affected area. 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 30 tablet 06/02/2025 07/02/2025 Active melatonin 3 mg oral capsule (14 sources) Start: 02-27-2024 End: 03-28-2024 take 2 capsules by mouth once daily Melatonin 3 MG capsule Take 6 mg by mouth Nightly. 30 capsule 02/27/2024 03/28/2024 Active Start: 02-12-2024 End: 02-27-2024 Start: 01-28-2024 End: 01-31-2024 take 3 mg by mouth once daily as needed for sleep 3 mg, Oral, Nightly PRN, sleep, Starting on 01/28/24 at 1521 take 1 capsule by mo uth once daily at bedtime, then take 2 capsules by mouth once daily melatonin 3 mg capsules Take 3 mg by mouth daily at bedtime. Take 6 mg by mouth Nightly Suspended mirtazapine 15 mg oral tablet (20 sources) Start: 06-02-2025 End: 11-29-2025 take 1 tablet by mouth once daily mirtazapine (Remeron) 15 MG tablet Indications: Anxiety , Weight loss Take 1 tablet (15 mg) by mouth Nightly. 90 tablet 1 06/02/2025 11/29/2025 Active Start: 03-03-2025 End: 06-02-2025 take 1 tablet by mouth once daily mirtazapine (Remeron) 7.5 MG tablet Indications: Anxiety , Weight loss Take 1 tablet (7.5 mg) by mouth Nightly. 30 tablet 2 03/03/2025 06/02/2025 Discontinued (Reorder) Start: 02-12-2024 End: 01-29-2025 take 1 tablet by mouth once daily at bedtime mirtazapine (REMERON) 15 mg tablet Take 15 mg by mouth daily at bedtime. 09/23/2024 Active Start: 01-31-2024 End: 01-31-2024 take 15 mg by mouth once daily 15 mg, Oral, Nightly, F irst dose on Josie 01/31/24 at 2100 Start: 01-31-2024 End: 01-31-2024 take 15 mg by mouth once daily 15 mg, Oral, Nightly, F irst dose on Josie 6/27/24 at 2100 End: 02-27-2024 take 1 tablet by mouth once daily at bedtime mirtazapine (REMERON) 15 mg tablet Take 15 mg by mouth daily at bedtime. Suspended NIFEdipine 60 mg osmotic 24 hr extended release oral tablet (20 sources) Dihydropyridine Calcium Channel Sergio Start: 01-02-2025 take 1 tablet by mouth once daily NIFEdipine XL (Procardia XL) 60 MG 24 hr tablet Take 1 tablet by mouth daily. 01/02/2025 Active pioglitazone 15 mg oral tablet (20 sources) Peroxisome Proliferator Receptor alpha Agonist, Peroxisome Proliferator Receptor gamma Agonist, Thiazolidinedione Start: 10-20-2021 take 15 mg by mouth once daily Pioglitazone Active 15 MG PO DAILY October 20, 2021 11:46am Start: 09-30-2020 End: 10-19-2021 take 1 tablet by mouth once daily Pioglitazone 30 mg tablet Discontinued 30 mg PO DAILY 90 May 03, 2021 3:38pm October 19, 2021 3:00pm polyethylene glycol 3350 52983 mg powder for oral solution (13 sources) Osmotic Laxative Start: 02-12-2024 End: 03-28-2024 take 17 g by mouth once daily polyethylene glycol, PEG, 3350 (Miralax) 17 g packet Take 17 g by mouth daily. 30 packet 02/27/2024 03/28/2024 Active predniSONE 20 mg oral tablet (20 sources) Start: 01-25-2024 End: 01-28-2024 take 40 mg by mouth once daily 40 mg, Oral, Daily, First dose on Sun01/25/24 at 0900, For 4 doses Start: 11-07-2023 End: 01-13-2025 take 2 tablets by mouth once daily Prednisone 20 mg tablet Discontinued 40 mg PO DAILY November 07, 2023 12:00am January 13, 2025 1:30pm back Start: 11-07-2023 take 40 mg by mouth once daily Prednisone Active 40 MG PO DAILY November 07, 2023 12:00am Start: 04-04-2019 End: 04-14-2019 take 2 tablets by mouth once daily Prednisone 20 mg tablet Discontinued 40 mg PO DAILY 20 April 04, 2019 12:00am April 13, 2019 12:00am April 14, 2019 12:07am Start: 04-04-2019 End: 04-14-2019 take 40 mg by mouth once daily Prednisone Discontinued 40 MG PO DAILY 20 April 04, 2019 12:00am April 14, 2019 12:07am Start: 10-04-2018 End: 10-08-2018 Prednisone 10 mg tablet Disc ontinued 20 mg PO TWICE A DAY as needed for numbness foot 30 4 0 October 04, 2018 1:00am October 07, 2018 1:00am October 08, 2018 1:07am 2 po bid 4D,1 po bid for 4 D, 1 po qd for 4 D 1/2 po qd for 2 days Start: 10-04-2018 End: 10-08-2018 Prednisone Discontinued 20 M G PO TWICE A DAY 30 4 October 04, 2018 1:00am October 08, 2018 1:07am 2 po bid 4D,1 po bid for 4 D, 1 po qd for 4 D 1/2 po qd for 2 days Start: 12-02-2017 End: 04-15-2018 take 1 tablet by mouth once daily Prednisone 20 MG tablet Discontinued 20 mg PO DAILY December 02, 2017 12:00am April 15, 2018 3:56pm sertraline 25 mg oral tablet (9 sources) Serotonin Reuptake Inhibitor Start: 09-12-2024 take 1 tablet by mouth once daily sertraline (ZOLOFT) 25 mg tablet Take 25 mg by mouth once daily. 09/12/2024 Active Start: 01-27-2024 End: 01-30-2024 take 75 mg by mouth once daily 75 mg, Oral, Daily, Fir st dose (after last modification) on Sun01/27/24 at 0900 Start: 12-26-2023 End: 12-25-2024 take 50 mg by mouth once daily 50 mg, Oral, Daily, Fir st dose on Sun01/23/24 at 0900 sevelamer carbonate 800 mg oral tablet (20 sources) Phosphate Binder Start: 02-12-2024 End: 03-28-2024 sevelamer carbonate (Renvela) 800 MG tablet Take 1 tablet (800 mg) by mouth in the morning and 1 tablet (800 mg) at noon and 1 tablet (800 mg) in the evening. Take with meals. Swallow tablet whole; do not crush, break, or chew.. 90 tablet 02/27/2024 Active (2 sources) Start: 02-27-2024 End: 02-26-2025 Completed/Discontinued Medications Medication Drug Class(es) Dates Sig (Normalized) Sig (Original) acetaminophen 325 mg / HYDROcodone bitartrate 7.5 mg oral tablet (12 sources) Opioid Agonist Start: 12-02-2017 End: 04-15-2018 Hydrocodone-Acetami nophen 1 TABLET tablet Discontinued 1 NMA PO THREE TIMES A DAY December 02, 2017 12:00am April 15, 2018 3:55pm Start: 12-02-2017 End: 04-15-2018 Hydrocodone-Acetaminophen Di scontinued 1 EACH PO THREE TIMES A DAY December 02, 2017 12:00am April 15, 2018 3:55pm acetaminophen 325 mg / oxyCODONE hydrochloride 5 mg oral tablet (20 sources) Opioid Agonist Start: 05-26-2024 End: 05-26-2024 1 tablet, Oral, Once, On Sun05/26/24 at 0405, For 1 dose, Maximum dose of acetaminophen is 4000 mg from all sources in 24 hours. Start: 02-23-2022 End: 09-25-2022 Oxycodone-Acetaminophen (Per cocet) 5-325 mg tablet Discontinued 1 {tbl} PO Q4H as needed for pain 10 5 0 February 23, 2022 September 25, 2022 7:51pm Right inguinal hernia Start: 12-02-2017 End: 04-15-2018 Oxycodone-Acetaminophen 1 TA BLET tablet Discontinued 1 {tbl} PO EVERY 6 HOURS NEEDED as needed for Pain 12 0 December 02, 2017 12:00am April 15, 2018 3:56pm Pain, unspecified Start: 12-02-2017 End: 04-15-2018 take 1 tablet by mouth every six hours as needed Oxycodone-Acetaminophen Discontinued 1 TABLET PO EVERY 6 HOURS NEEDED December 02, 2017 12:00am April 15, 2018 3:56pm ALPRAZolam 0.5 mg oral tablet (12 sources) Benzodiazepine Start: 06-24-2018 End: 03-07-2019 take 1 tablet by mouth twice daily Alprazolam 0.5 mg tablet Discontinued 0.5 mg PO TWICE A DAY 60 5 June 24, 2018 1:00am March 07, 2019 4:42pm amiodarone hydrochloride 200 mg oral tablet (20 sources) Antiarrhythmic Start: 12-25-2023 End: 04-30-2025 take 1 tablet by mouth once daily amiodarone (Pacerone) 200 MG tablet Take 1 tablet (200 mg) by mouth daily. 30 tablet 11 02/27/2024 04/30/2025 Discontinued (Med list cleanup) amLODIPine 5 mg oral tablet (20 sources) Dihydropyridine Calcium Channel Sergio Start: 01-07-2019 End: 01-13-2025 take 1 tablet by mouth once daily Amlodipine 5 mg tablet Discontinued 5 mg PO DAILY 90 0 May 17, 2023 1:10pm October 01, 2023 7:52pm bisacodyl 10 mg rectal suppository (2 sources) Stimulant Laxative End: 01-30-2024 take 10 mg rectal route every twenty-four hours as needed for constipation bisacodyl (Bisacodyl Laxative) 10 MG suppository Insert 10 mg into the rectum Daily as needed for constipation. 01/30/2024 Discontinued (Stop taking at discharge) cefTRIAXone (Rocephin) 1,000 mg in sodium chloride 0.9 % 50 mL IVPB Mini-Bag Plus (2 sources) Start: 01-23-2024 End: 01-28-2024 1,000 mg, IntraVENous, at 100 mL/hr, Administer over 30 Minutes, Every 24 hours, First dose on Sun01/23/24 at 0400, Mini-Bag Plus bag, Suspected Indication (Select all that apply): Pneumonia (HAP) cefuroxime 500 mg oral tablet (20 sources) Cephalosporin Antibacterial Start: 06-01-2022 End: 09-25-2022 take 1 tablet by mouth every twelve hours Cefuroxime Axetil 500 mg tablet Discontinued 500 mg PO Q12H June 01, 2022 4:58pm September 25, 2022 7:50pm Start: 03-21-2019 End: 04-04-2019 take 1 tablet by mouth every twelve hours Cefuroxime Axetil 500 mg tablet Discontinued 500 mg PO Q12H March 21, 2019 12:00am April 04, 2019 7:18pm celecoxib 200 mg oral capsule (20 sources) Nonsteroidal Anti-inflammatory Drug Start: 12-02-2017 End: 08-19-2019 take 1 capsule by mouth once daily Celecoxib 200 mg capsule Discontinued 200 mg PO DAILY 90 3 March 07, 2019 4:51pm August 19, 2019 8:50pm cephalexin 500 mg oral capsule (20 sources) Cephalosporin Antibacterial Start: 08-19-2019 End: 05-05-2020 take 1 capsule by mouth twice daily Cephalexin 500 mg capsule Discontinued 500 mg PO TWICE A DAY 28 0 February 05, 2020 5:29pm May 05, 2020 8:29pm cholecalciferol 9.52 unt/ml / glucose 357 mg/ml oral gel (4 sources) Vitamin D Start: 02-13-2024 End: 02-27-2024 Start: 01-23-2024 End: 01-31-2024 15 g, Oral, As needed, low b lood sugar, Starting on Sun01/23/24 at 0436, If blood glucose less than 50 mg/dL and patient ALERT and NOT NPO, give 2 tubes glucose gel. If blood glucose less than 70 mg/dL and patient ALERT and NOT NPO, give 1 tube glucose gel. Repeat blood glucose in 15 minutes. If blood glucose is less than 70 mg/dL, repeat treatment and recheck blood glucose in 15 minutes x2 and notify provider. cilostazol 50 mg oral tablet (12 sources) Phosphodiesterase 3 Inhibitor Start: 03-07-2019 End: 08-19-2019 take 1 tablet by mouth twice daily Cilostazol 50 mg tablet Discontinued 50 mg PO TWICE A DAY March 07, 2019 12:00am August 19, 2019 8:50pm ciprofloxacin 500 mg oral tablet (20 sources) Quinolone Antimicrobial Start: 03-14-2023 End: 03-14-2023 take 1 tablet by mouth twice daily Ciprofloxacin Hcl (Cipro) 500 mg tablet Discontinued 500 mg PO TWICE A DAY 14 0 March 14, 2023 12:00am March 14, 2023 4:26pm Start: 10-08-2018 End: 03-07-2019 take 1 tablet by mouth twice daily Ciprofloxacin Hcl 500 mg tablet Discontinued 500 mg PO TWICE A DAY 20 0 October 08, 2018 1:00am March 07, 2019 4:42pm clarithromycin 500 mg oral tablet (12 sources) Macrolide Antimicrobial Start: 04-04-2019 End: 08-19-2019 take 1 tablet by mouth twice daily Clarithromycin 500 mg tablet Discontinued 500 mg PO TWICE A DAY 20 0 April 04, 2019 12:00am August 19, 2019 8:45pm collagenase 0.25 unt/mg topical ointment (6 sources) Collagen-specific Enzyme Start: 02-14-2024 End: 02-27-2024 Start: 01-24-2024 End: 01-27-2024 apply 1 dose topically once daily as needed Topical, Daily, First dose on Josie 01/24/24 at 1830, And PRN Continuous Glucose [employer] (FreeStyle Roger 3 [place]) device (9 sources) Start: 03-31-2025 End: 04-30-2025 Continuous Glucose [employer] (FreeStyle Roger 3 [place]) device Indications: Type 2 diabetes mellitus with other diabetic kidney complication, with long-term current use of insulin (HCC) Use as directed 1 each 03/31/2025 04/30/2025 Discontinued (Med list cleanup) Start: 03-31-2025 Continuous Glu cose [employer] (FreeStyle Roger 3 [place]) device Indications: Type 2 diabetes mellitus with other diabetic kidney complication, with long-term current use of insulin (HCC) Use as directed 1 each 03/31/2025 Active cyclobenzaprine hydrochloride 5 mg oral tablet (20 sources) Muscle Relaxant Start: 11-07-2023 End: 11-13-2023 take 1 tablet by mouth three times daily as needed for muscle spasms Cyclobenzaprine 5 mg tablet Discontinued 5 mg PO THREE TIMES A DAY as needed for muscle spasm 45 6 November 07, 2023 12:00am November 13, 2023 12:44pm Start: 10-19-2021 End: 09-25-2022 take 1 tablet by mouth three times daily as needed for muscle spasms Cyclobenzaprine 5 mg tablet Discontinued 5 mg PO THREE TIMES A DAY as needed for muscle spasm 60 6 October 19, 2021 3:26pm September 25, 2022 7:50pm muscle relaxant Start: 02-14-2021 End: 05-03-2021 take 1 tablet by mouth three times daily as needed for muscle spasms Cyclobenzaprine 5 mg tablet Discontinued 5 mg PO THREE TIMES A DAY as needed for muscle spasm 60 3 February 14, 2021 12:00am May 03, 2021 3:35pm Start: 04-04-2019 End: 08-19-2019 take 1 tablet by mouth three times daily as needed for muscle spasms Cyclobenzaprine 5 mg tablet Discontinued 5 mg PO THREE TIMES A DAY as needed for muscle spasm 60 2 April 04, 2019 12:00am August 19, 2019 8:50pm dapagliflozin 10 mg oral tablet (20 sources) Sodium-Glucose Cotransporter 2 Inhibitor Start: 05-23-2021 End: 10-19-2021 take 1 tablet by mouth once daily Dapagliflozin Propanediol (Farxiga) 10 mg tablet Discontinued 10 mg PO DAILY May 23, 2021 12:00am October 19, 2021 2:59pm Start: 03-07-2019 End: 08-19-2019 take 1 tablet by mouth once daily Dapagliflozin Propanediol (Farxiga) 10 mg tablet Discontinued 10 mg PO DAILY 90 3 March 07, 2019 12:00am August 19, 2019 8:50pm dextromethorphan hydrobromide 20 mg / quiNIDine sulfate 10 mg oral capsule (12 sources) Antiarrhythmic, Uncompetitive B-rxnvyb-T-aspartate Receptor Antagonist, Cytochrome P450 2D6 Inhibitor, Sigma-1 Agonist Start: 01-04-2018 End: 10-08-2018 take 1 capsule by mouth every twelve hours Dextromethorphan-Quinidine (Nuedexta) 20-10 mg capsule Discontinued 1 NMA PO Q12H 60 12 January 04, 2018 12:00am October 08, 2018 3:40pm diazePAM 5 mg oral tablet (7 sources) Benzodiazepine Start: 10-01-2023 End: 11-13-2023 take 1 tablet by mouth at bedtime as needed for anxiety Diazepam 5 mg tablet Discontinued 5 mg PO AT BEDTIME as needed for anxiety 30 5 October 01, 2023 1:00am November 13, 2023 12:44pm docusate sodium 100 mg oral capsule (3 sources) End: 01-30-2024 take 1 capsule by mouth twice daily docusate sodium (Colace) 100 MG capsule Take 100 mg by mouth 2 times daily. 01/30/2024 Discontinued (Stop taking at discharge) docusate sodium 50 mg / sennosides, [facility] 8.6 mg oral tablet (2 sources) End: 01-30-2024 take 1 tablet by mouth in the morning senna-docusate sodium (Senokot-S) 8.6-50 MG tablet Take 1 tablet by mouth in the morning and 1 tablet in the evening. 01/30/2024 Discontinued (Stop taking at discharge) doxycycline hyclate 100 mg oral capsule (20 sources) Tetracycline-class Drug Start: 10-02-2023 End: 11-07-2023 take 1 capsule by mouth twice daily Doxycycline Hyclate 100 mg capsule Discontinued 100 mg PO TWICE A DAY 60 October 02, 2023 1:00am November 07, 2023 4:19pm Start: 05-23-2021 End: 10-19-2021 take 1 capsule by mouth once daily Doxycycline Hyclate 100 mg capsule Discontinued 100 mg PO DAILY 28 May 23, 2021 12:00am October 19, 2021 2:59pm Start: 05-05-2020 End: 07-14-2020 take 1 tablet by mouth twice daily Doxycycline Hyclate 100 mg tablet Discontinued 100 mg PO TWICE A DAY 28 May 05, 2020 12:00am July 14, 2020 7:01pm empagliflozin 25 mg oral tablet (20 sources) Sodium-Glucose Cotransporter 2 Inhibitor Start: 07-27-2020 End: 09-29-2020 take 1 tablet by mouth once daily Empagliflozin (Jardiance) 25 mg tablet Discontinued 25 mg PO DAILY 30 August 04, 2020 1:00am September 29, 2020 6:18pm escitalopram 10 mg oral tablet (20 sources) Serotonin Reuptake Inhibitor Start: 03-07-2019 End: 01-13-2025 Escitalopram Oxalate (Lexapro) 10 mg tablet Discontinued 10 mg PO NEEDED as needed for Anxiety February 14, 2022 11:01am September 25, 2022 7:50pm Start: 04-15-2018 End: 03-07-2019 take 5 mg by mouth once daily Escitalopram Oxalate 5 m g/5 mL solution Discontinued 5 mg PO DAILY April 15, 2018 12:00am March 07, 2019 4:44pm 60 actuat formoterol fumarate 0.005 mg/actuat / mometasone furoate 0.1 mg/actuat metered dose inhaler (2 sources) Corticosteroid, beta2-Adrenergic Agonist Start: 01-24-2024 End: 01-31-2024 take 2 puff(s) by mouth twice daily 2 puff, Inhalation, 2 times daily, First dose on Josie 01/24/24 at 2000, Rinse mouth with water after use to reduce aftertaste and incidence of candidiasis. Do not swallow. gabapentin 100 mg oral capsule (20 sources) Anti-epileptic Agent Start: 01-29-2025 End: 04-30-2025 gabapentin (Neurontin) 100 MG capsule Indications: Neuropathy Take 1 capsule after dialysis three times weekly on Sunday, and Sunday 30 capsule 01/29/2025 04/30/2025 Discontinued (Med list cleanup) Start: 12-25-2023 End: 02-26-2025 take 1 capsule by mouth twice daily gabapentin (Neurontin) 100 MG capsule Take 1 capsule (100 mg) by mouth 2 times daily. 60 capsule 11 02/27/2024 01/29/2025 Discontinued (Reorder) Start: 11-13-2023 End: 01-13-2025 take 1 capsule by mouth twice daily Gabapentin 300 mg capsule Discontinued 300 mg PO TWICE A DAY November 13, 2023 12:00am January 13, 2025 1:30pm nerve pain Start: 02-14-2021 End: 11-13-2023 take 1 capsule by mouth three times daily Gabapentin 300 mg capsule Discontinued 300 mg PO THREE TIMES A DAY 270 3 October 01, 2023 7:32pm November 13, 2023 2:44pm Start: 08-03-2020 End: 02-14-2021 take 2 capsules by mouth three times daily Gabapentin 100 MG capsule Discontinued 200 mg PO THREE TIMES A DAY August 03, 2020 3:17pm February 14, 2021 6:15pm Start: 08-03-2020 End: 02-14-2021 take 200 mg by mouth three times daily Gabapentin Discontinued 200 MG PO THREE TIMES A DAY August 03, 2020 3:17pm February 14, 2021 6:15pm Start: 02-05-2020 End: 08-03-2020 take 2 capsules by mouth four times daily as needed for pain Gabapentin 100 mg capsule Discontinued 200 mg PO .qid as needed for neuropathy and back pain 240 30 6 February 05, 2020 12:00am August 03, 2020 3:17pm Start: 02-05-2020 End: 08-03-2020 take 200 mg by mouth four times daily Gabapentin Discontinued 200 MG PO .qid 240 30 February 05, 2020 12:00am August 03, 2020 3:17pm Start: 07-05-2017 End: 12-02-2017 take 1 capsule by mouth at bedtime Gabapentin 300 MG capsule Discontinued 300 mg PO AT BEDTIME 30 July 05, 2017 1:00am December 02, 2017 2:15pm Start: 07-05-2017 End: 08-19-2019 take 1 capsule by mouth three times daily as needed for pain Gabapentin 300 MG capsule Discontinued 300 mg PO THREE TIMES A DAY as needed for Pain December 02, 2017 2:11pm August 19, 2019 8:51pm glucagon (rdna) 1 mg injecti on (6 sources) Antihypoglycemic Agent Start: 02-13-2024 End: 02-27-2024 Start: 01-23-2024 End: 01-31-2024 1 mg, IntraMUSCular, PRN, lo w blood sugar, Blood glucose less than 70 mg/dL and patient NOT ALERT or NPO and does not have IV access., Starting on Sun01/23/24 at 0436, After administration, attempt intravenous access and start D5W at 100 mL/hr. Repeat blood glucose in 15 minutes x2 and notify provider. End: 01-30-2024 Glucagon 1 MG/0.2ML solution Inject 1 mg into the shoulder, thigh, or buttocks as needed. Hypoglycemia 01/30/2024 Discontinued (Stop taking at discharge) glucose 0.45 mg/mg oral gel (20 sources) Start: 02-27-2024 End: 04-30-2025 glucose (Glutose) 40 % gel o ral gel Take 15 g by mouth as needed for low blood sugar. Hypoglycemia 10 g 02/27/2024 04/30/2025 Discontinued (Med list cleanup) Start: 02-27-2024 End: 03-28-2024 Start: 02-13-2024 End: 02-27-2024 Start: 02-13-2024 End: 02-27-2024 Start: 01-23-2024 End: 01-31-2024 12.5 g, IntraVENous, PRN, lo w blood sugar, Blood glucose less than 70 mg/dL and patient NOT ALERT or NPO., Starting on Sun01/23/24 at 0436, If patient does not respond within 5 minutes, repeat dose x1. Start D5W at 100 mL/hour until ordering provider can be reached. Repeat blood glucose in 15 minutes. If blood glucose is less than 70 mg/dL, repeat treatment and recheck blood glucose in 15 minutes x2. If using Glucostabilizer, dose as instructed per system. Start: 01-23-2024 End: 01-31-2024 100 mL/hr, IntraVENous, PRN, Blood sugar less than 70mg/dL, Starting on Sun01/23/24 at 0436, Start infusion following administration of dextrose 50% or glucagon. glucose (Glutose ) 40 % gel oral gel Take 15 g by mouth as needed for low blood sugar. Hypoglycemia Active 1 ml heparin sodium, porcine 1000 unt/ml injection (16 sources) Unfractionated Heparin, Anti-coagulant Start: 02-12-2024 End: 02-27-2024 Start: 02-12-2024 End: 02-27-2024 Start: 01-23-2024 End: 01-31-2024 2,000 Units, IntraCATHeter, As needed, line care, Starting on Sun01/23/24 at 1646 Start: 01-23-2024 End: 01-31-2024 1,900 Units, IntraCATHeter, As needed, line care, Starting on Sun01/23/24 at 1646 Start: 01-23-2024 End: 01-31-2024 inject 1 dose by subcutaneous injection three times daily 5,000 Units, SubCUTAneous, Every 8 hours scheduled (3 times per day), First dose on Sun01/23/24 at 0600 1 ml hydrALAZINE hydrochloride 20 mg/ml injection (2 sources) Arteriolar Vasodilator Start: 02-27-2024 End: 02-27-2024 take 10 mg intravenously every four hours as needed for hypertension hydrOXYzine hydrochloride 25 mg oral tablet (2 sources) Antihistamine End: 01-30-2024 hydrOXYzine HCl (Atarax) 25 MG tablet Take 12.5 mg by mouth 2 times daily as needed for itching. 01/30/2024 Discontinued (Stop taking at discharge) sodium hypochlorite 2.5 mg/ml topical solution (2 sources) Start: 01-24-2024 End: 01-27-2024 Irrigation, Daily, First dose on Sun01/24/24 at 1830, And PRN insulin glargine,hum.rec. anlog (LANTUS SUBCUTANEOUS) (1 source) inject 7 [IU] by subcutaneous injection once daily at bedtime insulin glargine,hum.rec.an log (LANTUS SUBCUTANEOUS) Inject 7 Units subcutaneously daily at bedtime. Suspended Insulin Lispro (Humalog) injection 0-18 Units (2 sources) Start: 01-28-2024 End: 01-31-2024 Insulin Lispro (Humalog) injection 0-18 Units iopamidol (Isovue-370) 76 % injection 75 mL (2 sources) Start: 01-23-2024 End: 01-23-2024 take 75 mL intravenously once as needed 75 mL, IntraVENous, IMG once PRN, contrast, Starting on Sun01/23/24 at 0029, For 1 dose irbesartan 300 mg oral tablet (20 sources) Angiotensin 2 Receptor Sergio Start: 01-07-2019 End: 12-14-2021 take 1 tablet by mouth once daily Irbesartan 300 mg tablet Discontinued 300 mg PO DAILY 90 3 May 03, 2021 3:37pm December 14, 2021 4:48pm iron sucrose (Venofer) 200 mg in sodium chloride 0.9 % 100 mL IVPB (2 sources) Start: 01-30-2024 End: 01-31-2024 200 mg, IntraVENous, at 300 mL/hr, Administer over 20 Minutes, Daily, First dose on Sun01/30/24 at 0600, For 5 doses, Observe for signs and symptoms of hypersensitivity and/or anaphylactic-type reactions per institutional standard during and following administration. isosorbide dinitrate 5 mg oral tablet (2 sources) Nitrate Vasodilator End: 01-30-2024 take 1 tablet by mouth three times daily isosorbide dinitrate (Isordil) 5 MG tablet Take 5 mg by mouth 3 times daily. 01/30/2024 Discontinued (Stop taking at discharge) 2 ml ketorolac tromethamine 30 mg/ml injection (1 source) Nonsteroidal Anti-inflammatory Drug, Cyclooxygenase Inhibitor Start: 04-04-2019 End: 04-04-2019 inject 60 mg by intramuscular injection once ketorolac 60 mg/2 mL intramuscular solution Discontinued 60 MG SC ONCE 2 April 04, 2019 7:00pm April 04, 2019 9:53pm losartan potassium 100 mg oral tablet (20 sources) Angiotensin 2 Receptor Sergio Start: 12-02-2017 End: 01-07-2019 take 1 tablet by mouth once daily Losartan 100 mg tablet Discontinued 100 mg PO DAILY 90 0 December 03, 2018 12:57pm January 07, 2019 4:30pm meclizine hydrochloride 12.5 mg oral tablet (20 sources) Antiemetic Start: 09-04-2019 End: 10-01-2023 take 1 tablet by mouth three times daily as needed for dizziness Meclizine 12.5 mg tablet Discontinued 12.5 mg PO THREE TIMES A DAY as needed for dizziness 30 May 03, 2021 3:37pm October 01, 2023 7:25pm meloxicam 15 mg oral tablet (12 sources) Nonsteroidal Anti-inflammatory Drug Start: 07-05-2017 End: 07-09-2017 take 1 tablet by mouth once daily Meloxicam 15 MG tablet Discontinued 15 mg PO DAILY July 05, 2017 1:00am July 09, 2017 1:01pm metFORMIN hydrochloride 1000 mg oral tablet (20 sources) Biguanide Start: 11-13-2023 End: 01-13-2025 Metformin 1,000 mg tablet Discontinued 500 mg PO DAILY November 13, 2023 12:00am January 13, 2025 1:31pm diabetes Start: 11-13-2023 End: 01-13-2025 take 1 tablet by mouth at bedtime Metformin 1,000 mg tablet Discontinued 1000 mg PO AT BEDTIME November 13, 2023 12:00am January 13, 2025 1:31pm diabetes Start: 11-13-2023 take 500 mg by mouth once emilie y Metformin Active 500 MG PO DAILY November 13, 2023 12:00am Start: 10-19-2021 End: 11-13-2023 take 1 tablet by mouth twice daily Metformin 1,000 mg tablet Discontinued 1000 mg PO TWICE A DAY 180 0 May 17, 2023 1:09pm October 01, 2023 7:52pm Start: 09-29-2020 End: 10-19-2021 take 1 tablet by mouth once daily Metformin 1,000 mg tablet Discontinued 1000 mg PO DAILY 90 May 03, 2021 3:37pm October 19, 2021 3:01pm Start: 03-11-2019 End: 07-27-2020 take 1 tablet by mouth twice daily Metformin 1,000 mg tablet Discontinued 1000 mg PO TWICE A DAY 180 3 August 19, 2019 8:51pm July 27, 2020 3:00pm Start: 09-29-2016 End: 03-11-2019 take 1 tablet by mouth twice daily Metformin 1,000 mg tablet,ER jaren.retention 24 hr Discontinued 1000 mg PO TWICE A DAY 180 3 March 07, 2019 4:49pm March 11, 2019 12:39pm methocarbamol 500 mg oral tablet (12 sources) Muscle Relaxant Start: 12-02-2017 End: 03-07-2019 take 1 tablet by mouth twice daily Methocarbamol 500 MG tablet Discontinued 500 mg PO TWICE A DAY December 02, 2017 12:00am March 07, 2019 4:41pm methylPREDNISolone 40 mg injection (2 sources) Corticosteroid Start: 01-23-2024 End: 01-24-2024 40 mg, IntraVENous, 3 times daily, First dose on Sun01/23/24 at 2315 metroNIDAZOLE 250 mg oral tablet (8 sources) Nitroimidazole Antimicrobial Start: 03-14-2023 End: 03-24-2023 take 1 tablet by mouth three times daily Metronidazole 250 mg tablet Discontinued 250 mg PO THREE TIMES A DAY 30 10 0 March 14, 2023 12:00am March 23, 2023 12:00am March 24, 2023 12:10am midodrine hydrochloride 2.5 mg oral tablet (6 sources) alpha-Adrenergic Agonist End: 02-27-2024 omeprazole 20 mg delayed release oral tablet (20 sources) Proton Pump Inhibitor Start: 10-20-2021 take 20 mg by mouth twice daily Omeprazole Active 20 MG PO TWICE A DAY 60 October 20, 2021 2:01pm Start: 08-13-2020 End: 01-13-2025 take 1 tablet by mouth twice daily as needed for gastroesophageal reflux disease Omeprazole 20 mg tablet,delayed release (DR/EC) Discontinued 20 mg PO TWICE A DAY as needed for heartburn November 13, 2023 12:00am January 13, 2025 1:31pm ondansetron 4 mg disintegrating oral tablet (2 sources) Serotonin-3 Receptor Antagonist End: 01-30-2024 take 1 tablet by mouth every six hours as needed for nausea and vomiting ondansetron ODT (Zofran-ODT) 4 MG disintegrating tablet Take 4 mg by mouth every 6 hours as needed for nausea or vomiting. 01/30/2024 Discontinued (Stop taking at discharge) oxyCODONE hydrochloride 5 mg oral tablet (6 sources) Opioid Agonist Start: 02-24-2024 End: 02-24-2024 Start: 02-20-2024 End: 02-20-2024 End: 01-30-2024 take 2.5 mg by mouth every four hours as needed for pain oxyCODONE (Oxaydo) 5 MG immediate release tablet Take 2.5 mg by mouth every 4 hours as needed for severe pain (7-10). 01/30/2024 Discontinued (Stop taking at discharge) pantoprazole 40 mg delayed release oral tablet (20 sources) Proton Pump Inhibitor Start: 01-23-2024 End: 04-30-2025 take 1 tablet by mouth once daily before breakfast pantoprazole (ProtoNix) 40 MG EC tablet Indications: Gastroesophageal reflux disease without esophagitis Take 1 tablet (40 mg) by mouth every morning (before breakfast). Do not crush, chew, or split. 90 tablet 01/29/2025 04/30/2025 Discontinued (Med list cleanup) QUEtiapine 25 mg oral tablet (12 sources) Atypical Antipsychotic Start: 02-12-2024 End: 02-27-2024 take 1 tablet by mouth every eight hours as needed Start: 01-30-2024 End: 02-29-2024 take 12.5 mg by mouth every eight hours as needed Start: 01-25-2024 End: 01-31-2024 take 1 tablet by mouth every eight hours as needed 12.5 mg, Oral, Every 8 hours PRN, agitation, Confusion, agitation, Starting on Sun01/25/24 at 1832 Start: 01-24-2024 End: 01-25-2024 take 1 tablet by mouth every eight hours as needed 25 mg, Oral, Every 8 hours PRN, agitation, Confusion, agitation, Starting on Sun01/24/24 at 1221 simethicone 80 mg chewable tablet (2 sources) End: 01-30-2024 simethicone (Mylicon) 80 MG chewable tablet Chew 160 mg 3 times daily. 01/30/2024 Discontinued (Stop taking at discharge) 1000 ml sodium chloride 9 mg/ml injection (2 sources) Start: 01-28-2024 End: 01-31-2024 250 mL/hr, IntraVENous, Administer over 10 Minutes, As needed, For use in priming line prior to transfusion (prime via gravity) and flush line post transfusion, Starting on Sun01/28/24 at 0629, For 1 dose, For use in priming line prior to transfusion (prime via gravity) and flush line post transfusion ONLY. Discontinue once line has been cleared of remaining blood product. sodium chloride (PF) 0.9 % solution 9 mL with naloxone 0.4 MG/ML solution 0.4 mg (2 sources) End: 01-30-2024 sodium chloride (PF) 0.9 % solution 9 mL with naloxone 0.4 MG/ML solution 0.4 mg Infuse 0.4 mg into a venous catheter as needed (opioid reversal). 01/30/2024 Discontinued (Stop taking at discharge) tamsulosin hydrochloride 0.4 mg oral capsule (20 sources) alpha-Adrenergic Sergio Start: 03-05-2017 End: 01-13-2025 take 1 capsule by mouth once daily Tamsulosin 0.4 mg capsule Discontinued 0.4 mg PO DAILY 90 0 May 17, 2023 1:10pm October 01, 2023 7:52pm 10 actuat tiotropium 0.0025 mg/actuat inhalation spray (17 sources) Anticholinergic Start: 01-31-2024 End: 02-26-2025 take 2 puff(s) by inhalation once daily tiotropium (Spiriva Respimat) 2.5 MCG/ACT inhaler Inhale 2 puffs daily. 1 each 02/27/2024 01/29/2025 Discontinued Start: 01-31-2024 End: 02-26-2025 Start: 01-24-2024 End: 01-31-2024 2 puff, Inhalation, Daily, F irst dose on Josie 01/24/24 at 1615, Instruct to hold breath for 10 seconds after each inhalation. Before first use, prime inhaler by actuating until aerosal cloud is seen, then actuating 3 more times. take 2 puff(s) by in halation once daily tiotropium bromide (SPIRIVA RESPIMAT INHALATION) Inhale as instructed once daily. Inhale 2 Puffs daily Suspended traMADol hydrochloride 50 mg oral tablet (17 sources) Opioid Agonist Start: 11-07-2023 End: 01-13-2025 take 1 tablet by mouth every six hours Tramadol 50 mg tablet Discontinued 50 mg PO EVERY 6 HOURS 28 7 5 November 07, 2023 12:00am January 13, 2025 1:32pm pain lower back Start: 12-14-2021 End: 05-10-2022 take 1 tablet by mouth twice daily as needed for pain Tramadol 50 mg tablet Discontinued 50 mg PO TWICE A DAY as needed for pain back chronic 60 5 December 14, 2021 12:00am May 10, 2022 6:31pm triamcinolone acetonide 40 mg/ml injectable suspension (2 sources) Corticosteroid Start: 10-19-2021 End: 10-19-2021 inject 60 mg by intramuscular injection once triamcinolone acetonide 40 mg/mL suspension for injection Discontinued 60 MG IM ONCE 1.5 October 19, 2021 3:07pm October 19, 2021 3:43pm Start: 04-04-2019 End: 04-04-2019 inject 60 mg by intramuscular injection once triamcinolone acetonide 40 mg/mL suspension for injection Discontinued 60 MG IM ONCE 1.5 April 04, 2019 7:00pm April 04, 2019 9:53pm (10 sources) Start: 02-18-2024 End: 02-18-2024 Start: 02-18-2024 End: 02-18-2024 Start: 02-14-2024 End: 02-15-2024 Start: 02-13-2024 End: 02-27-2024 inject 6 [IU] by subcutaneous injection once daily [Order 1 Start] Name: Insulin Lispro (Humalog) injection 0-6 Units Signed Summary: 0-6 Units, SubCUTAneous, 3 times daily with meals, First dose on Sun02/13/24 at 1930, Low Dose Correction Algorithm Glucose: Dose: LESS than 139 No Insulin 140-199 1 Unit 200-249 2 Units 250-299 3 Units 300-349 4 Units 350-400 5 Units Above 400 6 Units [Order 1 End] [Order 2 Start] Name: Insulin Lispro (Humalog) injection 0-6 Units Signed Summary: 0-6 Units, SubCUTAneous, Nightly, First dose on Sun02/13/24 at 2100, If continuous tube feedings/TPN/NPO, give correction dose based on result, no reduction in dose. If eating or bolus tube feeding: Low Dose Correction Algorithm Glucose: Dose: LESS than 139 No Insulin 140-199 1 Unit 200-249 2 Units 250-299 3 Units 300-349 4 Units 350-400 5 Units Above 400 6 Units [Order 2 End] Start: 02-12-2024 End: 02-27-2024 take 650 mg by mouth every six hours as needed for pain and fever [Order 1 Start] Name: acetaminophen (Tylenol) tablet 650 mg Signed Summary: 650 mg, Oral, Every 6 hours PRN, mild pain (1-3), fever, For temp greater than 100.4 F (38 C), Starting on Sun02/12/24 at 0859, Maximum dose of acetaminophen is 4000 mg from all sources in 24 hours. [Order 1 End] [Order 2 Start] Name: acetaminophen (Tylenol) suppository 650 mg Signed Summary: 650 mg, Rectal, Every 6 hours PRN, mild pain (1-3), fever, For temp greater than 100.4 F (38 C), Starting on Sun02/12/24 at 0859, Administer if oral route cannot be used. Maximum dose of acetaminophen is 4000 mg from all sources in 24 hours. [Order 2 End] Problems Active Problems Problem Classification Problem Date Documented Date Episodic/Chronic Acute and unspecified renal failure (5 sources) Acute renal failure syndrome; Translations: [Acute kidney failure, unspecified] 01-25-2024 Episodic Anxiety disorders (20 sources) Anxiety; Translations: [Anxiety disorder, unspecified] Onset: 5 08-13-2020 Chronic Cardiac dysrhythmias (20 sources) Paroxysmal atrial fibrillation; Translations: [Paroxysmal atrial fibrillation] Onset: 4 12-29-2023 Chronic Chronic kidney disease (20 sources) Chronic kidney disease; Translations: [Chronic kidney disease, unspecified] Onset: 4 08-13-2020 Chronic Chronic obstructive pulmonary disease and bronchiectasis (20 sources) Severe chronic obstructive pulmonary disease; Translations: [Chronic obstructive pulmonary disease, unspecified] Onset: 4 02-01-2024 Chronic Chronic obstructive pulmonary disease and bronchiectasis (20 sources) Bronchitis; Translations: [Bronchitis, not specified as acute or chronic] 07-16-2020 Episodic Coagulation and hemorrhagic disorders (18 sources) Blood coagulation disorder; Translations: [Coagulation defect, unspecified] Onset: 5 01-28-2025 Chronic Complication of device; implant or graft (20 sources) Arteriosclerosis of autologous vein coronary artery bypass graft; Translations: [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] Onset: 4 01-29-2025 Chronic Congestive heart failure; nonhypertensive (20 sources) Heart failure with reduced ejection fraction; Translations: [Unspecified systolic (congestive) heart failure] Onset: 4 Resolved: 5 02-01-2024 Chronic Coronary atherosclerosis and other heart disease (20 sources) Coronary arteriosclerosis; Translations: [Atherosclerotic heart disease of [place] coronary artery without angina pectoris] Onset: 4 Resolved: 5 12-29-2023 Chronic Deficiency and other anemia (5 sources) Anemia; Translations: [Anemia, unspecified] Onset: 4 03-11-2024 Episodic Delirium, dementia, and amnestic and other cognitive disorders (20 sources) Pseudobulbar affect; Translations: [Pseudobulbar affect] Onset: 5 01-04-2018 Chronic Comment on above: after surgery for ab out 1 month from [facility] anesthesia Diabetes mellitus with complications (20 sources) Neuropathy due to diabetes mellitus; Translations: [Type 2 diabetes mellitus with diabetic neuropathy, unspecified] Onset: 5 02-14-2021 Chronic Diabetes mellitus without complication (20 sources) Diabetes mellitus; Translations: [Type 2 diabetes mellitus without complications] Onset: 8 08-13-2020 Chronic Disorders of lipid metabolism (20 sources) Mixed hyperlipidemia; Translations: [Mixed hyperlipidemia] Onset: 4 04-04-2024 Chronic Diverticulosis and diverticulitis (20 sources) Diverticulitis; Translations: [Diverticulitis of intestine, part unspecified, without perforation or abscess without bleeding] Onset: 5 03-14-2023 Chronic Esophageal disorders (20 sources) Gastroesophageal reflux disease; Translations: [Gastro-esophageal reflux disease without esophagitis] Onset: 4 Resolved: 5 03-12-2024 Chronic Essential hypertension (20 sources) Hypertensive disorder; Translations: [Essential (primary) hypertension] Onset: 7 08-13-2020 Chronic Comment on above: some what controll ed on meds Gastrointestinal hemorrhage (12 sources) Feces color: tarry; Translations: [Melena] 07-27-2020 Episodic Comment on above: was told it was due to taking pepto Hyperplasia of prostate (20 sources) Benign prostatic hyperplasia; Translations: [Benign prostatic hyperplasia with lower urinary tract symptoms] Onset: 4 03-12-2024 Chronic Hypertension with complications and secondary hypertension (20 sources) Hypertensive urgency ; Translations: [Hypertensive urgency] Onset: 7 Resolved: 5 05-04-2024 Chronic Mood disorders (20 sources) Depressive disorder; Translations: [Depression] Onset: 4 Resolved: 5 08-13-2020 Chronic Mood disorders (1 source) Mood disorders; Translations: [Depression, unspecified depression type] Onset: 4 Nausea and vomiting (12 sources) Diarrhea and vomiting; Translations: [Vomiting, unspecified] 07-16-2020 Episodic Nutritional deficiencies (20 sources) Nutritional marasmus; Translations: [Unspecified severe protein-calorie malnutrition] Onset: 8 12-11-2023 Chronic Occlusion or stenosis of precerebral arteries (4 sources) Bilateral stenosis of carotid arteries; Translations: [Occlusion and stenosis of bilateral carotid arteries] Onset: 4 01-29-2025 Chronic Osteoarthritis (20 sources) Osteoarthritis; Translations: [Unspecified osteoarthritis, unspecified site] Onset: 4 07-27-2020 Chronic Other aftercare (11 sources) Surgical follow-up; Translations: [Encounter for removal of sutures] 01-04-2018 Episodic Other aftercare (1 source) Removal of sutures done; Translations: [Encounter for removal of sutures] 01-04-2018 Episodic Other circulatory disease (20 sources) Disorder of carotid artery; Translations: [Disorder of arteries and arterioles, unspecified] Onset: 4 11-19-2023 Chronic Other circulatory disease (12 sources) History of cerebrovascular disease; Translations: [Personal history of transient ischemic attack (TIA), and cerebral infarction without residual deficits] 08-13-2020 Episodic Other circulatory disease (3 sources) H/O: heart disorder; Translations: [Personal history of other diseases of the circulatory system] 01-13-2025 Episodic Other connective tissue disease (12 sources) Spasm; Translations: [Other muscle spasm] 02-14-2021 Episodic Other connective tissue disease (11 sources) Pain in calf; Translations: [Pain in right lower leg] 05-03-2021 Episodic Other connective tissue disease (11 sources) Foot pain; Translations: [Pain in right foot] 07-16-2020 Episodic Other connective tissue disease (1 source) Pain of right calf; Translations: [Pain in right lower leg] 05-03-2021 Episodic Other connective tissue disease (1 source) Pain in right foot; Translations: [Pain in right foot] 10-30-2018 Episodic Other diseases of kidney and ureters (18 sources) Hyperparathyroidism due to renal insufficiency; Translations: [Secondary hyperparathyroidism of renal origin] Onset: 5 01-28-2025 Chronic Other diseases of kidney and ureters (12 sources) Renal impairment; Translations: [Disorder of kidney and ureter, unspecified] 08-13-2020 Episodic Other gastrointestinal disorders (20 sources) Celiac disease; Translations: [Celiac disease] Onset: 4 10-01-2023 Chronic Other gastrointestinal disorders (20 sources) Diarrhea; Translations: [Diarrhea, unspecified] 08-13-2020 Episodic Other gastrointestinal disorders (12 sources) Disorder of small intestine; Translations: [Disease of intestine, unspecified] 08-13-2020 Episodic Other lower respiratory disease (20 sources) Dyspnea; Translations: [Shortness of breath] Onset: 4 Resolved: 5 01-23-2024 Episodic Other lower respiratory disease (1 source) Radiologic infiltrate of lung ; Translations: [Other nonspecific abnormal finding of lung field] 02-01-2024 Episodic Other lower respiratory disease (2 sources) Hypoxia; Translations: [Hypoxemia] 02-12-2024 Episodic Other lower respiratory disease (9 sources) Acute pulmonary edema; Translations: [Acute pulmonary edema] Onset: 5 Resolved: 5 02-14-2024 Episodic Other lower respiratory disease (2 sources) Shortness of breath; Translations: [SOB (shortness of breath)] Onset: 4 Episodic Other lower respiratory disease (1 source) Productive cough ; Translations: [Productive cough] Onset: 5 Episodic Other lower respiratory disease (1 source) Acute pulmonary edema; Translations: [Acute pulmonary edema (HCC)] Onset: 5 Episodic Other nervous system disorders (20 sources) Neuropathy; Translations: [Polyneuropathy, unspecified] Onset: 5 01-29-2025 Chronic Other nervous system disorders (18 sources) Chronic pain syndrome; Translations: [Chronic pain syndrome] Onset: 5 01-28-2025 Chronic Other nervous system disorders (2 sources) Polyneuropathy, unspecified; Translations: [Polyneuropathy, unspecified] Onset: 5 Chronic Other upper respiratory disease (1 source) Epistaxis; Translations: [Epistaxis] Onset: Episodic Pneumonia (except that caused by tuberculosis or sexually transmitted disease) (2 sources) Infective pneumonia; Translations: [Pneumonia, unspecified organism] 01-23-2024 Episodic Residual codes; unclassified (12 sources) Harmful pattern of use of nicotine; Translations: [Tobacco use] 07-16-2020 Episodic Residual codes; unclassified (13 sources) H/O Spinal surgery; Translations: [Other specified postprocedural states] Onset: 4 07-27-2020 Episodic Comment on above: decompression L5-S1 Residual codes; unclassified (2 sources) Delirium; Translations: [Disorientation, unspecified] 01-26-2024 Episodic Residual codes; unclassified (2 sources) Pain; Translations: [Pain, unspecified] 05-26-2024 Episodic Respiratory failure; insufficiency; arrest (adult) (2 sources) Chronic hypoxemic respiratory failure; Translations: [Chronic respiratory failure with hypoxia] 02-01-2024 Chronic Retinal detachments; defects; vascular occlusion; and retinopathy (20 sources) Degenerative disorder of macula ; Translations: [Unspecified macular degeneration] Onset: 5 07-27-2020 Chronic Comment on above: R eye received inj q 9 weeks Schizophrenia and other psychotic disorders (2 sources) Paranoid disorder; Translations: [Delusional disorders] 01-26-2024 Chronic Spondylosis; intervertebral disc disorders; other back problems (20 sources) Other intervertebral disc displacement, lumbar region; Translations: [Other spondylosis, lumbar region] Onset: 7 Resolved: 5 07-16-2020 Chronic Substance-related disorders (20 sources) Nicotine dependence; Translations: [Nicotine dependence, unspecified, uncomplicated] Onset: 8 12-14-2017 Chronic Unclassified (2 sources) Spinal stenosis, lumbar region without neurogenic claudication; Translations: [Spinal stenosis, lumbar region without neurogenic ar] Onset: 7 Past or Other Problems Problem Classification Problem Date Documented Da te Episodic/Chronic Abdominal hernia (20 sources) Right inguinal hernia ; Translations: [Unilateral inguinal hernia, without obstruction or gangrene, not specified as recurrent] Onset: 01-28-2025 Episodic Abdominal pain (20 sources) Abdominal pain; Translations: [Unspecified abdominal pain] Onset: 01-28-2025 Resolved: 01-29-2025 08-13-2020 Episodic Acute myocardial infarction (20 sources) Myocardial infarction; Translations: [Non-ST elevation (NSTEMI) myocardial infarction] Onset: 11-19-2023 Resolved: 01-29-2025 11-19-2023 Chronic Adjustment disorders (20 sources) Grief finding; Translations: [Adjustment disorder with depressed mood] Onset: 05-06-2024 Resolved: 06-02-2025 05-06-2024 Chronic Administrative/social admission (1 source) Patient encounter status; Translations: [Other specified counseling] Onset: 05-08-2024 05-08-2024 Episodic Blindness and vision defects (20 sources) Eye / vision finding; Translations: [Unspecified visual disturbance] Onset: 01-28-2025 Resolved: 01-29-2025 07-16-2020 Episodic Calculus of urinary tract (20 sources) Kidney stone; Translations: [Calculus of kidney] Onset: 01-28-2025 Resolved: 01-29-2025 07-27-2020 Episodic Complications of surgical procedures or medical care (20 sources) Wound dehiscence; Translations: [Disruption of external operation (surgical) wound, not elsewhere classified, initial encounter] Onset: 03-27-2024 Resolved: 01-29-2025 03-27-2024 Episodic Coronary atherosclerosis and other heart disease (2 sources) Presence of aortocoronary bypass graft; Translations: [Presence of aortocoronary bypass graft] Onset: 01-28-2025 Episodic Deficiency and other anemia (18 sources) Iron deficiency anemia; Translations: [Iron deficiency anemia, unspecified] Onset: 02-12-2024 01-28-2025 Episodic E Codes: Adverse effects of medical drugs (20 sources) Adverse reaction to drug; Translations: [Adverse effect of unspecified drugs, medicaments and biological substances, initial encounter] Onset: 01-28-2025 Resolved: 01-29-2025 07-16-2020 Episodic E Codes: Fall (20 sources) Falling injury; Translations: [Unspecified fall, initial encounter] Onset: 05-05-2024 Resolved: 01-29-2025 05-05-2024 Episodic Fluid and electrolyte disorders (20 sources) Hyperkalemia; Translations: [Hyperkalemia] Onset: 07-07-2024 Resolved: 03-03-2025 07-07-2024 Episodic Malaise and fatigue (20 sources) Fatigue; Translations: [Other fatigue] Onset: 12-18-2017 08-13-2020 Episodic Nonspecific chest pain (6 sources) Chest wall pain; Translations: [Other chest pain] Onset: 04-04-2024 04-04-2024 Episodic Open wounds of head; neck; and trunk (20 sources) Open wound of chest wall; Translations: [Unspecified open wound of unspecified front wall of thorax without penetration into thoracic cavity, initial encounter] Onset: 03-12-2024 Resolved: 01-29-2025 05-04-2024 Episodic Other aftercare (2 sources) [employer]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; 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)] Onset: 01-29-2025 Episodic Other circulatory disease (20 sources) Carotid bruit; Translations: [Other specified symptoms and signs involving the circulatory and respiratory systems] Onset: 11-17-2023 11-19-2023 Episodic Other connective tissue disease (1 source) Musculoskeletal pain; Translations: [Myalgia, other site] Onset: 05-06-2024 05-06-2024 Episodic Other diseases of kidney and ureters (2 sources) Cyst of kidney, acquired; Translations: [Cyst of kidney, acquired] Onset: 07-26-2017 Episodic Other gastrointestinal disorders (20 sources) Stool color abnormal; Translations: [Other fecal abnormalities] Onset: 01-28-2025 Resolved: 01-29-2025 07-17-2020 Episodic Other gastrointestinal disorders (2 sources) Slow transit constipation; Translations: [Slow transit constipation] Onset: 03-12-2024 03-12-2024 Episodic Other gastrointestinal disorders (18 sources) Constipation; Translations: [Constipation, unspecified] Onset: 03-12-2024 Resolved: 01-29-2025 01-29-2025 Episodic Other injuries and conditions due to external causes (20 sources) Puncture wound - injury; Translations: [Other injury of unspecified body region, initial encounter] Onset: 01-28-2025 Resolved: 03-03-2025 12-16-2021 Episodic Other injuries and conditions due to external causes (18 sources) Anaphylaxis; Translations: [Anaphylactic shock, unspecified, sequela] Onset: 02-12-2024 Resolved: 01-29-2025 01-29-2025 Episodic Other injuries and conditions due to external causes (18 sources) Allergic condition; Translations: [Allergy, unspecified, sequela] Onset: 02-12-2024 Resolved: 01-29-2025 01-29-2025 Episodic Other lower respiratory disease (20 sources) Chest pain on breathing; Translations: [Chest pain on breathing] Onset: 04-04-2024 Resolved: 06-02-2025 04-04-2024 Episodic Other lower respiratory disease (1 source) Pleurodynia; Translations: [Pleuritic chest pain] Onset: 05-06-2024 Episodic Other lower respiratory disease (1 source) Orthopnea; Translations: [Orthopnea] Onset: 04-03-2024 Episodic Other lower respiratory disease (1 source) Pleuritic pain; Translations: [Pleurodynia] Onset: 05-06-2024 05-06-2024 Episodic Other lower respiratory disease (20 sources) Dyspnea at rest; Translations: [Shortness of breath] Onset: 11-29-2023 Resolved: 01-29-2025 11-13-2023 Episodic Other non-traumatic joint disorders (2 sources) Pain in left hip; Translations: [Pain in left hip] Onset: 05-28-2017 Episodic Other non-traumatic joint disorders (1 source) Pain in left shoulder; Translations: [Acute pain of left shoulder] Onset: 05-01-2024 Episodic Other nutritional; endocrine; and metabolic disorders (18 sources) Disorder of phosphorus metabolism; Translations: [Other disorders of phosphorus metabolism] Onset: 08-27-2024 Resolved: 01-29-2025 01-29-2025 Chronic Other nutritional; endocrine; and metabolic disorders (8 sources) Weight loss; Translations: [Abnormal weight loss] Onset: 07-08-2024 07-16-2020 Episodic Other nutritional; endocrine; and metabolic disorders (1 source) Adult failure to thrive; Translations: [Failure to thrive in adult] Onset: 05-04-2024 Episodic Other nutritional; endocrine; and metabolic disorders (20 sources) Weight decreased; Translations: [Abnormal weight loss] Onset: 07-08-2024 07-08-2017 Episodic Other nutritional; endocrine; and metabolic disorders (2 sources) Abnormal weight loss; Translations: [Abnormal weight loss] Onset: 01-28-2025 Episodic Other screening for suspected conditions (not mental disorders or infectious disease) (20 sources) Raised prostate specific antigen; Translations: [Elevated prostate specific antigen [PSA]] Onset: 10-08-2023 07-16-2020 Episodic Other upper respiratory infections (20 sources) Maxillary sinusitis; Translations: [Chronic maxillary sinusitis] Onset: 01-28-2025 Resolved: 01-29-2025 07-16-2020 Chronic Otitis media and related conditions (20 sources) Acute left otitis media; Translations: [Otitis media, unspecified, left ear] Onset: 01-28-2025 Resolved: 01-29-2025 07-16-2020 Episodic Pleurisy; pneumothorax; pulmonary collapse (20 sources) Pleural effusion; Translations: [Pleural effusion, not elsewhere classified] Onset: 02-12-2024 Resolved: 01-29-2025 01-23-2024 Episodic Residual codes; unclassified (18 sources) Noncompliance with medication regimen; Translations: [Non compliance w medication regimen] Onset: 01-28-2025 01-28-2025 Episodic Residual codes; unclassified (18 sources) Insomnia; Translations: [Insomnia, unspecified] Onset: 01-28-2025 01-28-2025 Episodic Respiratory failure; insufficiency; arrest (adult) (4 sources) Acute respiratory failure; Translations: [Acute respiratory failure with hypoxia] Onset: 03-11-2024 Resolved: 04-04-2024 04-04-2024 Episodic Retinal detachments; defects; vascular occlusion; and retinopathy (20 sources) Retinal tear of left eye; Translations: [Horseshoe tear of retina without detachment, left eye] Onset: 01-28-2025 07-16-2020 Episodic Screening and history of mental health and substance abuse codes (2 sources) Ex-smoker; Translations: [Personal history of nicotine dependence] Onset: 03-12-2024 03-12-2024 Episodic Spondylosis; intervertebral disc disorders; other back problems (20 sources) Torticollis; Translations: [Torticollis] Onset: 12-06-2017 Resolved: 01-29-2025 07-16-2020 Episodic Syncope (20 sources) Syncope and collapse; Translations: [Near syncope] Onset: 07-07-2024 Resolved: 01-29-2025 07-07-2024 Episodic Unclassified (12 sources) L eye torn retina 03-06-2022 Comment on above: Had pertussis as a c hild and tore his retina with the coughing Results Test Name Value Interpretation Reference Range Facility 12 Lead EKGon 06-16-2025 12 Lead EKG [facility] [address] [place] [address] 12 Lead EKG 06/16/25 1538 MR#: [id number] Acct: [id number] Name: JOSE JOHN Rep #: [id number] : [id number] From: Chris Bull MD Attending Dr: Status: DEP ER Ordering Dr: Lena Mcfarland DO Date: 06/16/25 Location: ED Sex: M C Admitted: Test Reason : SOB Blood Pressure : */* mmHG Vent. Rate : 90 BPM Atrial Rate : 90 BPM P-R Int : 106 ms QRS Dur : 96 ms QT Int : 412 ms P-R-T Axes : 31 80 87 degrees QTcB Int : 504 ms Sinus rhythm with short OR Possible Left atrial enlargement BASELINE ARTIFACT Abnormal ECG Confirmed by Chris Bull ([id number]), editor department EDELMIRA HENDERSON ([id number]) on 06/17/2025 10:30:46 AM Referred By: Confirmed By: Chris Bull 06/17/25 1030 Date Chris Bull MD CC: APPLICATION DBAMoody Crump; Dr. Lena Mcfarland DO Signed Normal [facility] 36on 06-16-2025 36 Patient returned carlos alberto l, and he would be willing to wear Holter Monitor. He currently has Bronchitis, is not feeling good, and would like to postpone this. If order can be placed I will call him in about a month to schedule. Normal [facility] Basic Metabolic Profile (BMP )on 06-16-2025 BUN/CRE 4.7 RATIO Low 10-20 [facility] Comment on above: Performed By: #### L 100.0100, L500.2500 #### [facility] [address] [place], [address] Calcium [Mass/Vol] 9.0 mg/dL Normal 7.6-11.0 [facility] Comment on above: Performed By: #### L 100.0100, L500.2500 #### [facility] [address] [place], [address] Chloride [Moles/Vol] 98 mmol/L Normal 98-108 [facility] Comment on above: Performed By: #### L 100.0100, L500.2500 #### [facility] [address] [place], [address] CO2 [Moles/Vol] 27.9 mmol/L Normal 21.0-32.0 [facility] Comment on above: Performed By: #### L 100.0100, L500.2500 #### [facility] [address] [place], [address] Creatinine [Mass/Vol] 5.50 mg/dL High 0.70-1.20 [facility] Comment on above: Performed By: #### L 100.0100, L500.2500 #### [facility] [address] [place], [address] GAP 14 Normal 5-15 [facility] Comment on above: Performed By: #### L 100.0100, L500.2500 #### [facility] [address] [place], [address] GFR/1.73 sq M.predicted among non-blacks MDRD (S/P/Bld) [Vol rate/Area] 10 mL/min/{1.73_m2} Low >60 [facility] Comment on above: Result Comment: mL/m in/1.73m2 CKD-EPI Creatinine Equation (2020) Performed By: #### L 100.0100, L500.2500 #### [facility] [address] [place], [address] Glucose [Mass/Vol] 139 mg/dL High 70-99 [facility] Comment on above: Performed By: #### L 100.0100, L500.2500 #### [facility] [address] [place], [address] Potassium [Moles/Vol] 3.3 mmol/L Normal 3.3-5.1 [facility] Comment on above: Performed By: #### L 100.0100, L500.2500 #### [facility] [address] [place], [address] Sodium [Moles/Vol] 140 mmol/L Normal 133-145 [facility] Comment on above: Performed By: #### L 100.0100, L500.2500 #### [facility] [address] [place], [address] Urea nitrogen [Mass/Vol] 26 mg/dL High 4-19 [facility] Comment on above: Performed By: #### L 100.0100, L500.2500 #### [facility] [address] [place], [address] CBC W/Diff, Automatedon 11-1 Absolute Lymph 0.70 X10 3/uL Low 0.83-4.51 [facility] Comment on above: Performed By: #### L 100.0100, L500.2500 #### [facility] [address] [place], [address] Absolute Neut 4.3 X10 3/uL Normal 2.0-7.7 [facility] Comment on above: Performed By: #### L 100.0100, L500.2500 #### [facility] [address] [place], [address] Basophils/100 WBC (Bld) 1.0 % Normal 0-1 [facility] Comment on above: Performed By: #### L 100.0100, L500.2500 #### [facility] [address] [place], [address] Eosinophils/100 WBC (Bld) 2.0 % Normal 0-5 [facility] Comment on above: Performed By: #### L 100.0100, L500.2500 #### [facility] [address] [place], [address] Erythrocyte distribution width (RBC) [Ratio] 14.2 % Normal 11.6-14.6 [facility] Comment on above: Performed By: #### L 100.0100, L500.2500 #### [facility] [address] [place], [address] Hematocrit (Bld) [Volume fraction] 37.7 % Low 40-54 [facility] Comment on above: Performed By: #### L 100.0100, L500.2500 #### [facility] [address] [place], [address] Hemoglobin (Bld) [Mass/Vol] 12.7 g/dL Low 13.0-16.5 [facility] Comment on above: Performed By: #### L 100.0100, L500.2500 #### [facility] [address] [place], [address] IG% 0.200 Normal 0.0-0.9 [facility] Comment on above: Result Comment: IG% - Immature Granulocytes (promyelocytes, myelocytes and metamyelocytes) > 1% indicates that a LEFT SHIFT is Present. Performed By: #### L 100.0100, L500.2500 #### [facility] [address] [place], [address] Lymphocytes/100 WBC (Bld) 11.4 % Low 19-41 [facility] Comment on above: Performed By: #### L 100.0100, L500.2500 #### [facility] [address] [place], [address] MCH (RBC) [Entitic mass] 31.2 pg Normal 27.0-32.0 [facility] Comment on above: Performed By: #### L 100.0100, L500.2500 #### [facility] [address] [place], [address] MCHC (RBC) [Mass/Vol] 33.7 g/dL Normal 32-36 [facility] Comment on above: Performed By: #### L 100.0100, L500.2500 #### [facility] [address] [place], [address] MCV (RBC) [Entitic vol] 92.6 fL Normal 80-94 [facility] Comment on above: Performed By: #### L 100.0100, L500.2500 #### [facility] [address] [place], [address] Monocytes/100 WBC (Bld) 15.0 % High 0-10 [facility] Comment on above: Performed By: #### L 100.0100, L500.2500 #### [facility] [address] [place], [address] Neutrophils/100 WBC (Bld) 70.4 % High 47-70 [facility] Comment on above: Performed By: #### L 100.0100, L500.2500 #### [facility] [address] [place], [address] Nucleated RBC (Bld) [#/Vol] 0 10*3/uL Normal 0-5 [facility] Comment on above: Performed By: #### L 100.0100, L500.2500 #### [facility] [address] [place], [address] Platelet mean volume (Bld) [Entitic vol] 9.9 fL Normal 6.2-12.0 [facility] Comment on above: Performed By: #### L 100.0100, L500.2500 #### [facility] [address] [place], [address] Platelets (Bld) [#/Vol] 191 10*3/uL Normal 150-450 [facility] Comment on above: Performed By: #### L 100.0100, L500.2500 #### [facility] [address] [place], [address] RBC (Bld) [#/Vol] 4.07 10*6/uL Low 4.6-6.2 [facility] Comment on above: Performed By: #### L 100.0100, L500.2500 #### [facility] [address] [place], [address] RDW SD 48.4 fl High 35.1-43.9 [facility] Comment on above: Performed By: #### L 100.0100, L500.2500 #### [facility] [address] [place], [address] WBC (Bld) [#/Vol] 6.2 10*3/uL Normal 4.4-11.0 [facility] Comment on above: Performed By: #### L 100.0100, L500.2500 #### [facility] [address] [place], [address] Chest PA and Lateralon 06-16 Chest PA and Lateral [facility] Imaging Services [address] [place] [address] Chest PA and Lateral MR#: [id number] Acct: [id number] Name: JOSE JOHN Rep #: [id number] : 1945 M 80 From: Nura ch MD PCP: ACE Leon Status: PRE ER Study: Chest PA and Lateral Date of Exam: 06/16/25 Exam# [id number] Ordering Dr: Provider,Ed P. PROCEDURE: CHEST PA AND LATERAL 06/16/2025 REASON FOR EXAM: COUGH TECHNIQUE: Procedure Code: RADCXR Modality: DX Procedure: CHEST PA AND LATERAL COMPARISON: January 13, 2025. FINDINGS: Hardware: A left-sided double-lumen catheter is seen with the tip in the right atrium. EKG electrodes are seen. Heart: Status post midline sternotomy. Mediastinum: The mediastinal contour is unremarkable. Lungs: Small bilateral pleural effusions as compared to prior study with evidence of increased markings at the lung bases worse at the right lung base superimposed on scarring. Bones: Degenerative changes are identified within the thoracic spine. RAD/Chest PA and Lateral IMPRESSION: Interval development of small bilateral pleural effusions with bibasilar atelectasis and/or infiltrate superimposed on chronic changes. Reading Location: [facility] CC: APPLICATION DBA-C Kalyani Crump; ED PHYSICIAN PROVIDER Access Specialist: Signed Normal [facility] Emergency Department Summary on 06-16-2025 Emergency Department Summary [facility] Medical Records Department [address] [place] [address] Emergency Department Summary 06/16/25 MR#: [id number] Acct: [id number] Name: JOSE JOHN Rep #: [id number] : 1945 80 From: Lena Mcfarland DO PCP: ACE Leon Status:DEP ER Location: ED HPI History of Present Illness Chief Complaint: Shortness of Breath Detail of Chief Complaint: Cough and shortness of breath Informant: patient Narrative Narrative: Patient presents with cough and shortness of breath. Symptoms x 6 days. He thinks it is bronchitis. Minimal subjective fever at home. Cough productive of yellow phlegm. Today he had some shallow breathing so he called squad to bring him in. He quit smoking 30 years ago but was told years ago he may have some COPD. He does not wear home O2. Denies recent travel or surgery. Patient is a dialysis patient and his last dialysis was yesterday. Denies sick contacts. Denies chest pain other than soreness from coughing. [facility] Medical History DVT (deep venous thrombosis) Dialysis patient Carotid artery bruit Coronary artery disease Cardiomyopathy CKD (chronic kidney disease) stage 4, GFR 15-29 ml/min ZOFIA (acute kidney injury) Anemia Inguinal hernia of right side without obstruction or gangrene Easy bruising Neuropathy Former smoker Heartburn Chronic renal insufficiency, stage III (moderate) Depression Black tarry stools Diarrhea Abdominal pain Hx TIA/stroke w/o resid Mini stroke Fatigue Hypertension L eye torn retina Pseudobulbar affect Anxiety disorder Macular degeneration Kidney stones Osteoarthritis Diabetes type 2, uncontrolled Home Medications ???Medication ???Instructions ???Recorded ???Last Taken ???Type carvedilol 6.25 mg tablet 6.25 mg PO BID 01/13/25 01/12/25 H istory lorazepam 0.5 mg tablet (Ativan) 0.5 mg PO TID PRN anxiety 3 days 0 01/13/25 Unknown Rx #9 tabs nifedipine 60 mg tablet,extended 60 mg PO DAILY 01/13/25 01/13/25 H istory release 24 hr aspirin 81 mg chewable tablet 1 tab PO DAILY 06/16/25 Unknown Hi story doxycycline monohydrate 100 mg 100 mg PO BID #20 CAPSULES 5 Unknown Rx capsule prednisone 20 mg tablet 20 mg PO BID #10 tabs 06/16/25 Unk nown Rx Allergy/AdvReac Type Severity Reaction Status Date / Time lisinopril Allergy Severe raspy Verified 06/16/25 13:21 voice and cough Penicillins Allergy Anaphylaxis Verified 06/16/25 13:21 Sulfa (Sulfonamide Allergy Anaphylaxis Verified 06/16/25 13:21 Antibiotics) levofloxacin (From Levaquin) AdvReac Upset Verified 06/16/25 13:21 Stomach Family History Mother Diabetes Heart disease Hypertension CVA (cerebral vascular accident) Sister CVA (cerebral vascular accident) Heart disease Other High cholesterol Surgical History History of open heart surgery S/P laparoscopic hernia repair Previous back surgery Hx laparoscopic cholecystectomy Social History household members: none housing: house current occupational status: retired Smoking Status: Former smoker alcohol intake: never substance use type: does not use caffeine: Yes what type of physical activity do you participate in: none frequency: does not exercise ROS ROS ED Review of Systems ROS Unobtainable: other Constitutional Constitutional ED: Reports lethargy; Denies chills, fever(s), sweats or weight loss Eyes Eyes: Denies blurry vision, change in vision or diplopia ENT ENT ED: Denies rhinorrhea or sore throat Cardiovascular Cardiovascular: Denies chest pain, orthopnea or racing heartbeat Respiratory/Chest Respiratory/Chest: Reports cough, dyspnea and dyspnea on exertion; Denies orthopnea or sputum Gastrointestinal Gastrointestinal: Denies abdominal pain, diarrhea, nausea or vomiting Genitourinary Genitourinary ED: Denies dysuria, hematuria or urinary frequency Musculoskeletal Musculoskeletal: Denies arthralgias, back pain, myalgias or neck pain Integumentary Denies abscess, Abrasions or rash Neurologic Neurologic: Denies headache(s) or weakness Psychiatric Psychiatric: Denies anxiety, depression or suicidal thoughts Endocrine Endocrinology: Denies polydipsia, polyphagia or polyuria Hematologic/Lymphatic Hematologic/Lymphatic: Denies easy bleeding, easy bruising or lymphadenopathy Allergic/Immunologic Allergic/Immunologic ED: Denies mouth swelling, tongue swelling or urticaria EXAM Physical Exam Const Vital Signs: 06/16/25 13:15 06/16/25 15:45 06/16/25 15:45 Temperature 98.2 F 97.8 F Temperature Source Oral Oral Pulse Rate 102 H 86 (more content not included)... Normal [facility] L501.4021on 11-11-2025 Trop T High Sen 106 ng/L Invalid Interpretation Code <=22 [facility] Comment on above: Result Comment: Crit ical Result(s) Called CHIO at: 1550 by: NIKOLAS??Results read back by same. Performed By: #### L 100.0100, L500.2500 #### [facility] [address] [place], [address] M100.678on 06-16-2025 M100.678 Pending SARS-CoV-2 (COVID 19) Negative INFLUENZA A Negative INFLUENZA B Negative RSV PCR Negative Normal [facility] Comment on above: Performed By: #### L 100.0100, L500.2500 #### [facility] [address] [place], [address] Troponin T HS 2 HRon 025 Trop T High Sen 97 ng/L Invalid Interpretation Code <=22 [facility] Comment on above: Result Comment: Crit ical Result(s) Called RAMON at: 1831 by: NIKOLAS??Results read back by same. Performed By: #### L 499.0042 #### [facility] [address] [place], [address] Troponin T HS 4 HRon 025 Trop T High Sen Normal <=22 [facility] Comment on above: Result Comment: PT D ISCHARGED Performed By: #### L 499.0043 #### [facility] [address] [place], [address] 36on 06-12-2025 36 done [facility] 36on 06-11-2025 36 I did and put them u p front in the basket earlier today [facility] 36on 06-10-2025 36 Ok to send once we g et the request. [facility] 36 Name of caller: Luis Angel Hdz Contact phone number: [phone] Relationship to Patient: Pharmacy Provider: Kalyani Crump APRN - [facility] Practice: [facility] Chief Complaint/Reason for Call: Janene calling and has a medicare audit that is due by this Sunday and needs the office visit notes that includes his CGM supplies from his 03/03/25 visit. Can fax that over to Janene's direct line [phone] and she will be faxing over the documentation request for the office's records. Please advise Best time of day caller can be reached: any Patient advised that office/PCP has 24-48 business hours to return their call: No Normal [facility] 36 Received second noti ce from [employer] service has not started because he has not put on the monitor. Called patient and the MCOT is interfering with his dialysis port. He would be willing to wear a short term heart monitor. Normal [facility] 36on 06-05-2025 36 Called patient left message for call back to discuss heart monitor, and follow up with Dr. Alaniz. [facility] Office Visiton 06-02-2025 Follow-up visit [id number] Jose John 1945 M Date Provider Department Center 06/02/[address] [facility] Family History Problem Relation Age of Onset Diabetes Mother Family Status - Relation Status Age at Mother Level of Service:43454 OR OFFICE/OUTPATIENT ESTABLISHED MOD MDM 30 MIN Reason for Visit and Comments: Diabetes [34] [facility] Progress Noteon 06-02-2025 Progress Note Initial and repeat elevated. Patient to take his blood pressure medication when he gets home and monitor bp daily at home. Notify provider if remains elevated [facility] Progress Note Controlled. Continue to monitor with CGM. Currently not on medications. Last hemoglobin A1c was 5.7 [facility] Progress Note Improving. Most like ly was related to chronic illness and depression. Has gained about 10 lbs since starting the remeron. Will increase to 15 mg nightly Normal [facility] Progress Note Managed by nephrolog y, continue hemodialysis as directed [facility] Progress Note Stable. Currently no t on any medications and denies any symptoms Normal [facility] Progress Note Apical regular. Cont inue current medications. Follow up with cardiology Normal [facility] Progress Note Stable. Denies any c hest pain. Continue with current medications- follow up with cardiology Normal [facility] Progress Note 06/02/2025 Jose John (: 1945) is a 80 y.o. male , Established patient, here for evaluation of the following chief complaint(s): Diabetes ASSESSMENT/PLAN: 1. Type 2 diabetes mellitus with chronic kidney disease on chronic dialysis, without long-term current use of insulin (HCC) Assessment & Plan: Controlled. Continue to monitor with CGM. Currently not on medications. Last hemoglobin A1c was 5.7 2. Anxiety Assessment & Plan: OARRS reviewed and consistent with treatment plan. CS MA in place. At this time we will continue lorazepam 0.5 mg nightly if needed for anxiety Orders: - mirtazapine (Remeron) 15 MG tablet; Take 1 tablet (15 mg) by mouth Nightly., Starting Sun06/02/2025, Until 11/29/2025, Normal - LORazepam (Ativan) 0.5 MG tablet; Take 1 tablet (0.5 mg) by mouth Nightly as needed for anxiety., Starting Sun06/02/2025, Until Josie 07/02/2025 at 2359, Normal 3. Weight loss Assessment & Plan: Improving. Most likely was related to chronic illness and depression. Has gained about 10 lbs since starting the remeron. Will increase to 15 mg nightly Orders: - mirtazapine (Remeron) 15 MG tablet; Take 1 tablet (15 mg) by mouth Nightly., Starting Sun06/02/2025, Until 11/29/2025, Normal 4. 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 Denies any chest pain. Continue with current medications- follow up with cardiology 5. Atrial fibrillation, unspecified type (HCC) Assessment & Plan: Apical regular. Continue current medications. Follow up with cardiology 6. Centrilobular emphysema (HCC) Assessment & Plan: Stable. Currently not on any medications and denies any symptoms 7. End stage renal disease (HCC) Assessment & Plan: Managed by nephrology, continue hemodialysis as directed 8. Primary hypertension Assessment & Plan: Initial and repeat elevated. Patient to take his blood pressure medication when he gets home and monitor bp daily at home. Notify provider if remains elevated Follow up in about 1 month (around 07/03/2025). SUBJECTIVE/OBJECTIVE: HPI - Jose John (: 1945) is a 80 y.o. male , Established patient, here for the evaluation of the following chief complaint(s): Diabetes CKD- Dialysis M, W, F- is 4 hours currently. Reports doing better with it. Left upper chest dialysis cath Insomnia/anxiety- ativan at night helpful. The remeron has helped with sleep and mood. Is gaining weight back. Reports doing well, going to restoration again and been doing yard work. Energy level has improved. DM- not on medications, last A1c was 5.7. denies any hypoglycemic episodes <60. Does get up in the middle of the night to eat because the cgm goes off below 70. Hx of cabg- is now seeing cardiology Hypertension- elevated today- he does monitor at home and reports he had not taken hi afternoon med yet. Current Medications[1] Review of Systems Constitutional: Negative for activity change, chills and fatigue. HENT: Positive for rhinorrhea (in the morning only). Negative for congestion, ear discharge, postnasal drip, sinus pressure, sore throat and trouble swallowing. Respiratory: Negative. Cardiovascular: Negative. Genitourinary: Negative for difficulty urinating. Neurological: Negative. Psychiatric/Behavioral: Negative for agitation, behavioral problems, dysphoric mood, self-injury, sleep disturbance and suicidal ideas. The patient is nervous/anxious. Vitals: 06/02/25 1437 06/02/25 1513 BP: (!) 182/85 (!) 163/78 Pulse: 84 Resp: 20 Temp: 37.2 ?C (98.9 ?F) TempSrc: Infrared SpO2: 94% Weight: 129 lb 12.8 oz (58.9 kg) Physical Exam Constitutional: General: He is not in acute distress. Appearance: Normal appearance. He is not ill-appearing. HENT: Head: Normocephalic and atraumatic. Mouth/Throat: Mouth: Mucous membranes are moist. Pharynx: Oropharynx is clear. Eyes: Conjunctiva/sclera: Conjunctivae normal. Cardiovascular: Rate and Rhythm: Rhythm irregular. Pulses: Normal pulses. Heart sounds: Normal heart sounds. Pulmonary: Effort: Pulmonary effort is normal. Breath sounds: Normal breath sounds. Musculoskeletal: Right lower leg: No edema. Left lower leg: No edema. Lymphadenopathy: Cervical: No cervical adenopathy. Neurological: Mental Status: He is alert and oriented to person, place, and time. Psychiatric: Mood and Affect: Mood normal. Behavior: Behavior normal. Thought Content: Thought content normal. Judgment: Judgment normal. An electronic signature was used to authenticate this note. Kalyani Crump APRN - [facility] 06/02/2025 5:09 PM [1] Current Outpatient Medications Medication Sig Dispense Refill aspirin 81 MG chewable tablet Chew 1 tablet (81 mg) daily. 30 tablet 11 atorvastatin (Lipitor) 80 MG tablet Take 1 tablet (80 mg) by mouth daily. 90 tablet 3 carvedilol (Coreg) 1 (more content not included)... Normal [facility] Progress Note Patient was identifi ed by name and Date of . Health Maintenance Due Topic Medicare Annual Wellness (AWV) Hepatitis C Screening DTaP/Tdap/Td Vaccines (1 - Tdap) Pneumococcal Vaccine: 50+ Years (1 of 2 - PCV) Zoster Vaccines (1 of 2) RSV Immunization for Adults (1 - 1-dose 75+ series) Echocardiogram Influenza Vaccine (1) COVID-19 Vaccine ( - 2024- season) Creatinine Level Potassium Level [facility] 36on 06-01-2025 36 Noted; thank you. [facility] 36 Received fax from [email or web address] that that will e a delay in home box shook patcher of his 05/14/25 MCOT because he requested a delay in box shook patcher. Called patient left message for call back to confirm he still wants to this and will be able to hook it up. Letter scanned to Media. Normal [facility] MR/BMS.Stephan 05-19-2025 MR/BMS.BVS [facility] Surgery [address] [place], [place] [address] OFFICE VISIT Date of Service: 05/19/25 MR#: [id number] Acct: [id number] Name: JOSE JOHN Rep #: [id number] : 1945 Provider: JERRY Cardenas Age/Sex: 80/M Location: [facility] Status: Signed Intake Vital Signs 01/13/25 12:49 04/21/25 09:21 05/19/25 09:36 Height 5 ft 10 in 5 ft 10 in Weight: 129 lb BP 147/78 H Blood Pressure Location Rt brachial Position Sitting Respiration 16 Pulse 86 Pulse Source Monitor Temp 97.8 F Temp Source Temporal Pulse Oximetry (%) 99 Oxygen Delivery Method room air Intake Visit Reasons: Discuss Surgery Prior to Scheduling Is patient in pain?: No Allergies lisinopril Allergy (Severe, Verified 05/19/25 09:37) raspy voice and cough Penicillins Allergy (Verified 05/19/25 09:37) Anaphylaxis Sulfa (Sulfonamide Antibiotics) Allergy (Verified 05/19/25 09:37) Anaphylaxis levofloxacin (From Levaquin) Adverse Reaction (Verified 05/19/25 09:37) Upset Stomach Medications ???Medication ???Instructions ???Recorded ???Confirmed ???Type carvedilol 6.25 mg tablet 6.25 mg PO BID 01/13/25 05/19/25 H istory lorazepam 0.5 mg tablet (Ativan) 0.5 mg PO TID PRN anxiety 3 days 0 01/13/25 05/19/25 Rx #9 tabs nifedipine 60 mg tablet,extended 60 mg PO DAILY 01/13/25 05/19/25 H istory release 24 hr Have you fallen in the past year?: No PFSH Medical History DVT (deep venous thrombosis) Dialysis patient Carotid artery bruit Coronary artery disease Cardiomyopathy CKD (chronic kidney disease) stage 4, GFR 15-29 ml/min ZOFIA (acute kidney injury) Anemia Inguinal hernia of right side without obstruction or gangrene Easy bruising Neuropathy Former smoker Heartburn Chronic renal insufficiency, stage III (moderate) Depression Black tarry stools Diarrhea Abdominal pain Hx TIA/stroke w/o resid Mini stroke Fatigue Hypertension L eye torn retina Pseudobulbar affect Anxiety disorder Macular degeneration Kidney stones Osteoarthritis Diabetes type 2, uncontrolled Surgical History History of open heart surgery S/P laparoscopic hernia repair Previous back surgery Hx laparoscopic cholecystectomy Family History Mother Diabetes Heart disease Hypertension CVA (cerebral vascular accident) Sister CVA (cerebral vascular accident) Heart disease Other High cholesterol Social History household members: none housing: house current occupational status: retired Smoking Status: Former smoker alcohol intake: never substance use type: does not use caffeine: Yes what type of physical activity do you participate in: none frequency: does not exercise HPI HPI HPI: JOSE JOHN, is a 80 M who presents to the office today for further discussion of AV fistula creation. He had seen Dr. Freeman in the office in January 2025 and based upon his vein mapping L basilic AVF creation was recommended; at the time patient was dealing with reconciling is sudden health changes as well as grieving the recent loss of his and [id number] and was not ready to proceed with surgery. He reports that he feels he is doing a bit better overall, they have made some adjustments to his dialysis that have lessened his fatigue. He also anticipates they will be reducing him to 3 hour dialysis sessions from 4 hours. He is producing urine still, he says a moderate amount. He is still using the tunneled dialysis catheter and this has been working well for him. Unfortunately though, he reports that he is undergoing a cardiac workup right now with upcoming satellite project site monitor placement; he has a history of CABG x4. He is still not ready to proceed with fistula creation; he wants to fully complete his cardiac workup which is reasonable and beyond that he just is not mentally ready yet for a fistula, wishes to continue with the catheter for now. ROS General General: Yes weight change, fatigue and weakness; No appetite, colon cancer or breast cancer HEENT HEENT: Yes eye surgery; No difficulty swallowing, eye injury, swollen glands or hoarseness Endo Endocrine: Yes diabetes mellitus; No thyroid disease, thyroid cancer, Hair loss, heat intolerance or cold intolerance Skin Skin: No rash or changing moles Musc Musculoskeletal: Yes back problems and joint pain; No arthritis, rheumatoid arthritis or gout Cardio Cardiovascular: Yes heart disease, high blood pressure and palpitations; No murmur, pacemaker, atrial fibrillation, heart attack, heart stent, shortness of breath with exertio (more content not included)... Normal [facility] 36on 05-14-2025 36 Patient called odilia rnbenji because he has not been called this am for his MCOT Monitor. Contracted Central Scheduling and department is short staffed today and only has one support technician. If he is not called today, he will be called tomorrow. Patient has dialysis tomorrow, and will let me know if he is not contacted so we can reschedule to a different day. [facility] 36on 04-30-2025 36 Noted; thank you. [facility] 36 Called [facility], [phone], spoke to Fina, he is already established with Dr. Emmanuel Freeman. He is currently scheduled to see Vascular PA Lakisha Gonzalez 05/19/25 at 9:30. Called patient to remind him of the appointment. [facility] 36 Patient was seen by Dr. Alaniz, and referred to Vascular Surgery. Patient requested appointment in [place]. Normal [facility] ECG 12 lead - CLINIC PERFORM EDon 04-30-2025 Sinus Rhythm -Left atrial enlargement. Voltage criteria for LVH (S(V2) exceeds 3.00 mV). -Nonspecific T-abnormality. ABNORMAL [facility] Office Visiton 04-30-2025 Follow-up visit [id number] Ezequiel Johnchlesy [place] 1945 M Date Provider Department Center 04/30/2025 [id number] ALANIZ [facility] None Family History Problem Relation Age of Onset Diabetes Mother Family Status - Relation Status Age at Mother Level of Service:16634 OR OFFICE/OUTPATIENT [facility] MINUTES Reason for Visit and Comments: New Patient [542] Coronary Artery Disease [187] Cardiomyopathy [104] Hypertension [473049] [facility] Progress Noteon 04-30-2025 Progress Note [facility] Cardiology [facility] CARDIOLOGY - [address] [facility] [id number] Dept: [phone] Dept Visit type: New : 1945 Chief Complaint: Chief Complaint Patient presents with New Patient Coronary Artery Disease Cardiomyopathy Hypertension History of Present Illness: Jose Pedrazappard is a 80 y.o. male with a history of ischemic cardiomyopathy, coronary artery disease s/p CABG 11/2023, carotid stenosis, hypertension, TIA, DM, ESRD on HD and tobacco use is referred by PCP office to establish cardiovascular care. In November of 2023 he presented with acute kidney injury and acute coronary syndrome. A cardiac catheterization showed severe multivessel coronary artery disease and on November 202023 he underwent four-vessel coronary artery bypass surgery at [facility] with Dr Carlin. 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 He was treated for DVT and post op afib for 3 months with eliquis. Also seems like amiodarone was discontinued sometime along the way. His LVEF was 35% initially in November but that has recovered with most recent echo (03/2024) at [facility] reporting normal LVEF 56%. He is on HD 3 x a week. He tells me he is feeling fine now. He denies chest pain,pressure or heaviness. No exertional angina. No sob,orthopnea or pnd. No syncope or presyncope. He does have occasional palpitations but short lived. Past Medical History: Medical History[1] Past Surgical History Surgical History[2] Family History Family History[3] Social History Social History[4] Allergies: Allergies[5] Medications: Current Medications[6] Review of Systems: Review of Systems Constitutional: Negative for activity change, chills, diaphoresis, fatigue and fever. HENT: Negative for nosebleeds and trouble swallowing. Eyes: Negative for discharge and visual disturbance. Respiratory: Negative for apnea, cough, chest tightness, shortness of breath and wheezing. Cardiovascular: Positive for palpitations. Negative for chest pain and leg swelling. Gastrointestinal: Negative for abdominal distention, abdominal pain, blood in stool, diarrhea, nausea and vomiting. Endocrine: Negative for cold intolerance and heat intolerance. Genitourinary: Negative for hematuria. Musculoskeletal: Negative for gait problem and myalgias. Skin: Negative for color change and rash. Neurological: Negative for dizziness, seizures, syncope, facial asymmetry, speech difficulty, weakness, light-headedness (Every once in awhile with quick position changes), numbness and headaches. Hematological: Does not bruise/bleed easily. Psychiatric/Behavioral: Negative for dysphoric mood. Physical Examination: Vitals: Vitals: 04/30/25 0833 04/30/25 0922 BP: (S) (!) 160/86 (!) 160/80 BP Location: Left arm Left arm Patient Position: Sitting BP Cuff Size: Adult Pulse: 95 SpO2: 96% Weight: 130 lb 3.2 oz (59.1 kg) Height: 5' 10 (1.778 m) Body mass index is 18.68 kg/m?. Physical Exam Constitutional: Appearance: Normal appearance. HENT: Head: Normocephalic. Mouth/Throat: Pharynx: No oropharyngeal exudate. Eyes: General: No scleral icterus. Right eye: No discharge. Left eye: No discharge. Cardiovascular: Rate and Rhythm: Normal rate and regular rhythm. Heart sounds: No murmur heard. No gallop. Pulmonary: Effort: No respiratory distress. Abdominal: General: There is no distension. Tenderness: There is no abdominal tenderness. Musculoskeletal: General: Normal range of motion. Cervical back: Normal range of motion. Right lower leg: No edema. Left lower leg: No edema. Skin: General: Skin is warm and dry. Neurological: Mental Status: He is alert and oriented to person, place, and time. Laboratory Tests: Lab Results Component Value Date WBC 10.9 (H) 05/26/2024 HGB 12.3 (L) 05/26/2024 HCT 38.5 (L) 05/26/2024 MCV 92.5 05/26/2024 PLT 177 05/26/2024 Lab Results Component Value Date GLUCOSE 234 (H) 05/26/2024 CALCIUM 9.2 05/26/2024 NA 133 (L) 05/26/2024 K 4.9 05/26/2024 CO2 29 05/26/2024 CL 94 (L) 05/26/2024 BUN 58 (H) 05/26/2024 CREATININE 4.61 (H) 05/26/2024 @LASTCMP@ Lab Results Component Value Date CHOL 218 (H) 11/15/2023 Lab Results Component Value Date TRIG 142 12/02/2023 TRIG 77 11/26/2023 TRIG 179 (H) 11/15/2023 Lab Results Component Value Date HDL 68 (H) 11/15/2023 Lab Results Component Value Date LDLCALC 114 (H) 11/15/2023 NT PRO BNP Date Value Ref Range Status 02/12/2024 14,823 (H) <450 pg/mL Final Cardiac Tests: ECG: NSR, LVH Last cardiac catheterization at [facility] 11/15/23: Vascular US 11/2023: 60-69% stenosis in the right internal carotid artery. Moderate and het (more content not included)... [facility] Progress Noteon 04-17-2025 Progress Note Spoke to patient to explain that insurance would not be covering his Roger now that he is off insulin and lows were not <54. He went to pharmacy and was able to get x2 sensors for $42 and he is agreeable to pay out of pocket [facility] Progress Noteon 04-15-2025 Progress Note This will need to go through DME for auth, I will reach out to Makenzie at [facility] to review for possible coverage, I have attached patients Roger report to show the amount of low alerts he is recieving [facility] Progress Noteon 04-09-2025 Progress Note Prescription Request : Last medication check: 03/03/25 Last physical exam: na Next scheduled appointment: 06/02/25 CSA on file (date): 01/29/25 Last urine drug screen: na Last date of refill on this medication 03/03/25 Pt came into office today. Roger updated and uploaded AGP report and scanned into patients chart. Pt requested refill on Ativan. Pharmacy verified. [facility] 04-08-2025 36 Yes I will take care of it I put him on the nurse visit schedule with me on . [facility] Progress Noteon 04-07-2025 Progress Note Spoke to patient and discussed the need for a printout from his Roger of <50 bs over the last month to get approved for further Roger sensors now that he is no longer on insulin. Pt states he can stop by the office on at 10am, checking with office to see if staff is available to download report [facility] 04-02-2025 36 He is now scheduled to see Dr. Alaniz 04/30/25. [facility] 36 Received PA request for patients FreeStyle Roger 3 Plus Sensor [facility] 03-31-2025 36 Will send to Alanna duarte in [place], if this comes back needing a PA, will reroute to Makenzie at [facility] 36 ----- Message from MALINA Cabrera CNP sent at 03/30/2025 12:14 PM EDT ----- Please see if we can get CGM covered for him. I was on insulin previously and I think that is how he got it initially. He does have episodes of hypoglycemia and is on hemodialysis. Not sure if that will help any. ----- Message ----- From: Sue Leal MA Sent: 03/30/2025 11:57 AM EDT To: MALINA Leon CNP ----- Message ----- From: Candy Friedman Sent: 03/27/2025 2:37 PM EDT To: Demetria Gray Clinical Patrol Lady ----- Message from Candy Friedman sent at 03/27/2025 2:37 PM EDT ----- [facility] Progress Noteon 03-30-2025 Progress Note Please see if we can get CGM covered for him. I was on insulin previously and I think that is how he got it initially. He does have episodes of hypoglycemia and is on hemodialysis. Not sure if that will help any. [facility] [id number] 36 Message released to patient as written. MALINA Leon CNP 03/27/25 2:12 PM Note Called patient to get update on how he is doing on the mirtazapine at bedtime. Not available. Left message will try again next week. Patient's further questions if applicable: Patient states he is doing better the last couple weeks on the medication Mirtazapine. Patient states things are slowing down now and they have gotten his Dialysis better handles. Patient would like to know if Kalyani could send a letter to the Pharmacy for patients Continuous Glucose Sensor (FreeStyle Roger 2 Sensor) [facility] stating patient is using this because, he is having several low blood sugars. Patient states his insurance is not covering them and it costs him a lot of money if he wants to continue using it. Please advise, thank you. Were all questions from office addressed or relayed to the patient from encounter: Yes [facility] 36 Called patient to [employer] update on how he is doing on the mirtazapine at bedtime. Not available. Left message will try again next week. [facility] 36 ----- Message from MALINA Cabrera CNP sent at 03/18/2025 5:49 PM EDT ----- Call patient and see how he is doing on the mirtazapine [facility] 36on 03-18-2025 36 Called patient to [employer] update on how he was doing on mirtazapine at bedtime. Patient reports he has not been taking it and has been using Ativan for sleep. Apparently we had a miscommunication on why we had started the mirtazapine which was to help with depression symptoms and appetite. He states that he will start taking the mirtazapine at bedtime. Okay to take the Ativan if needed for sleep at bedtime Dialysis-reports that they made adjustments Sunday and today. Reports feels better with it. Still waking up alarmed with the CGM with glucose under 70, lowest at 68. He is currently not on any diabetic medications Provider will give patient phone call next week to see how he was doing on the mirtazapine. Patient states understanding and agrees with plan of care [facility] Progress Noteon 03-10-2025 Progress Note Lab/venipuncture com pleted by [employer] [facility] 36on 03-06-2025 36 Noted. [facility] 36 Patient called, esme meier 03/12/[address] Alaniz for another appointment. I will call if I get a cancellation or for April. [facility] 36 Noted; thank you. [place] [id number] Received via fax gracia odell [facility] 11/15/[address] Jimmie Posey at [facility], and 01/13/25 EKG. Scanned records to Media. [facility] 36 Noted; thank you. [facility] 36 Called [facility], and he has never been in their office. Called [facility], , spoke to Anastasiia, and Dr. Allen and ALEJANDRO make rounds during dialysis. Dr. Allen progress notes are in Care Everywhere. [facility] 36 Noted; thank you. [facility] 36 Called [facility], [phone], spoke to Kathia, and he has never been in their office, but she will fax 11/27 heart cath, and EKG's. Faxed record request to [facility] fax#[phone] requesting records from 11/27 and 01/28. [facility] Laboratory - Chemistry and C hemistry - challengeon 03-03-2025 Glucose [Mass/Vol] 133 mg/dL Abnormal 70 - 100 mg/dL [facility] Panel Informationon 03-03 Interpretation and review of laboratory results Abnormal [facility] Office Visiton 03-03-2025 Follow-up visit [id number] Jose John 1945 M Date Provider Department Center 03/03/2025 [id number] [address] [facility] No family history on file Level of Service:38032 OR OFFICE/OUTPATIENT ESTABLISHED MOD MDM 30 MIN Reason for Visit and Comments: Diabetes [34] Medication Check [[id number]] Arm Pain [785309] - Left arm---had left over oxy at home and took it last night GERD [[id number]] [facility] Progress Noteon 03-03-2025 Progress Note Reports symptoms in the legs improved, continue gabapentin at renal dosing. [facility] Progress Note Recently flared symp toms, no red flags. Will see if getting depression symptoms better controlled will help. [facility] Progress Note Establish with sarita sanchez. Currently asymptomatic [facility] Progress Note Continues to lose we ight. Check TSH. Get recent lab results from dialysis. [facility] Progress Note Controlled. Continue to monitor with CGM. Currently not on medications. Last hemoglobin A1c was 5.7 [facility] Progress Note Symptoms poorly controlled, start mirtazapine 7.5 mg nightly [facility] Progress Note Managed by nephrolog y, continue hemodialysis as directed [facility] Progress Note Patient was identifi ed by name and Date of . [facility] in November-dialysis Patient was identified by name and Date of . Finger stick for Glucose was pended and signed by provider. Materials needed were collected, gloves were put on, patients finger was cleansed with an alcohol swab then dried with gauze,finger stick was completed. Slight pressure applied, first drop of blood was wiped away by gauze and 2nd drop collected for sample.Patient tolerated well. Results entered and provider verbally notified. Charged for finger stick: Yes Results entered: Yes [facility] Progress Note 03/03/2025 Jose John (: 1945) is a 79 y.o. male , Established patient, here for evaluation of the following chief complaint(s): Diabetes, Medication Check, Arm Pain (Left arm---had left over oxy at home and took it last night), and GERD ASSESSMENT/PLAN: 1. Type 2 diabetes mellitus with other diabetic kidney complication, with long-term current use of insulin ([facility]) Assessment & Plan: Controlled. Continue to monitor with CGM. Currently not on medications. Last hemoglobin A1c was 5.7 Orders: - AMB POC GLUCOSE TEST 2. Anxiety Assessment & Plan: OARRS reviewed and consistent with treatment plan. CS MA in place. At this time we will continue lorazepam 0.5 mg nightly if needed for anxiety Orders: - LORazepam (Ativan) 0.5 MG tablet; Take 1 tablet (0.5 mg) by mouth Nightly., Starting Sun03/03/2025, Until Josie 04/02/2025, Normal - mirtazapine (Remeron) 7.5 MG tablet; Take 1 tablet (7.5 mg) by mouth Nightly., Starting Sun03/03/2025, Until 06/01/2025, Normal 3. End stage renal disease (HCC) Assessment & Plan: Managed by nephrology, continue hemodialysis as directed 4. Weight loss Assessment & Plan: Continues to lose weight. Check TSH. Get recent lab results from dialysis. Orders: - TSH - mirtazapine (Remeron) 7.5 MG tablet; Take 1 tablet (7.5 mg) by mouth Nightly., Starting 03/03/2025, Until 06/01/2025, Normal 5. Lumbar post-laminectomy syndrome Assessment & Plan: Recently flared symptoms, no red flags. Will see if getting depression symptoms better controlled will help. 6. Ischemic cardiomyopathy Assessment & Plan: Establish with cardiology. Currently asymptomatic 7. Neuropathy Assessment & Plan: Reports symptoms in the legs improved, continue gabapentin at renal dosing. 8. Mild episode of recurrent major depressive disorder (HCC) Assessment & Plan: Symptoms poorly controlled, start mirtazapine 7.5 mg nightly Follow up for 3 month manish. SUBJECTIVE/OBJECTIVE: [facility] - Jose John (: 1945) is a 79 y.o. male , Established patient, here for the evaluation of the following chief complaint(s): Diabetes, Medication Check, Arm Pain (Left arm---had left over oxy at home and took it last night), and GERD Patient presents to follow-up diabetes. Recently established 1 month ago. History of CABG with postsurgical complications, pneumonia and ESRD. He is on hemodialysis 3 days/week. Denies any chest pain or increased shortness of breath. Reports his weight continues to drop. Reports that he is eating enough that he thinks. He had recently lost his and xwwcnx-oq-dry within a short period of time while he was recuperating from his illness. Recently moved back to his home in [place] and has been having some difficulties adjusting. He has been mowing his yard on the riding lawnmower. Reports he is still going through his 's and yymrct-lj-wqe's belongings and trying to put stuff away. Denies any suicidal or homicidal ideation but has a lot of anxiety and is depressed. He has some chronic back pain which intermittently flares up specifically on the left upper arm which he thinks may be also secondary from the dialysis catheter. He was taking Ativan for short period of time at night if needed to help with sleep and anxiety and thought that was very helpful. He is in the process of getting established with a forming roll operator as he had very poor follow-up after his surgery, hospitalization and assisted stay. For his polyneuropathy we had restarted gabapentin at renal dosing which she reports is helping. Diabetes-he wears a CGM and reports that it alarms quite frequently at 74 in which he gets up and will eat something. He states he does not do a fingerstick to double check. States he also will have some blood sugars in the low 200s after eating. He is currently not on any medications but was previously on insulin therapy. Current Medications[1] Review of Systems Constitutional: Positive for activity change, fatigue and unexpected weight change. Negative for appetite change and chills. HENT: Negative. Respiratory: Negative. Cardiovascular: Negative. Gastrointestinal: Negative. Genitourinary: Negative. Musculoskeletal: Positive for arthralgias and back pain. Neurological: Negative. Psychiatric/Behavioral: Positive for decreased concentration, dysphoric mood and sleep disturbance. Negative for agitation, behavioral problems, self-injury and suicidal ideas. The patient is nervous/anxious. Vitals: 03/03/25 1516 BP: 135/69 Pulse: 82 Resp: 18 Temp: 36.9 ?C (98.4 ?F) TempSrc: Infrared SpO2: 96% Weight: 120 lb 9.6 oz (54.7 kg) Physical Exam Constitutional: General: He is not in acute distress. Appearance: Normal appearance. He is underweight. He is ill-appearing. HENT: Head: Normocephalic and atraumatic. Mouth/Throat: Mouth: Mucous membranes are moist. Pharynx: Oropharynx is clear. No po (more content not included)... [facility] 36on 02-10-2025 36 Noted. [facility] 36 New patient referred by PCP for CAD. He previously declined sooner appointment, and only wants to be seen in [place]. Called patient, left message that he is now scheduled to see Dr. Alaniz in [place] 03/12/25, and asked for return call to discuss past cardiac history. [facility] AMB POC HEMOGLOBIN A1Con HbA1c (Bld) [Mass fraction] 5.7 % - 5.7 % [facility] HbA1c (Bld) [Mass fraction]o n 01-29-2025 [facility] MR/BMS.BVBakari 01-29-2025 MR/BMS.BVS [facility] [address] [place], [place] [address] OFFICE VISIT Date of Service: 01/29/25 MR#: [id number] Acct: [id number] Name: JOSE JOHN Rep #: [id number] : 1945 Provider: Dr. Emmanuel Freeman MD Age/Sex: 79/M Location: [facility].BVS Status: Signed Intake Vital Signs 11/13/23 15:36 01/13/25 12:49 01/29/25 15:17 Height 5 ft 10 in 5 ft 10 in Weight: 121 lb 8 oz BP 150/80 H Blood Pressure Location Lt radial Position Sitting Respiration 16 Pulse 93 Pulse Source Monitor Temp 98.2 F Temp Source Temporal Pulse Oximetry (%) 96 Oxygen Delivery Method room air Intake Visit Reasons: Discuss Vein Mapping Is patient in pain?: No Allergies lisinopril Allergy (Severe, Verified 01/29/25 15:19) raspy voice and cough Penicillins Allergy (Verified 01/29/25 15:19) Anaphylaxis Sulfa (Sulfonamide Antibiotics) Allergy (Verified 01/29/25 15:19) Anaphylaxis levofloxacin (From Levaquin) Adverse Reaction (Verified 01/29/25 15:19) Upset Stomach Medications ???Medication ???Instructions ???Recorded ???Confirmed ???Type carvedilol 6.25 mg tablet 6.25 mg PO BID 01/13/25 01/29/25 H istory lorazepam 0.5 mg tablet (Ativan) 0.5 mg PO TID PRN anxiety 3 days 0 01/13/25 01/29/25 Rx #9 tabs nifedipine 60 mg tablet,extended 60 mg PO DAILY 01/13/25 01/29/25 H istory release 24 hr Have you fallen in the past year?: Yes PFSH Medical History DVT (deep venous thrombosis) Dialysis patient Carotid artery bruit Coronary artery disease Cardiomyopathy CKD (chronic kidney disease) stage 4, GFR 15-29 ml/min ZOFIA (acute kidney injury) Anemia Inguinal hernia of right side without obstruction or gangrene Easy bruising Neuropathy Former smoker Heartburn Chronic renal insufficiency, stage III (moderate) Depression Black tarry stools Diarrhea Abdominal pain Hx TIA/stroke w/o resid Mini stroke Fatigue Hypertension L eye torn retina Pseudobulbar affect Anxiety disorder Macular degeneration Kidney stones Osteoarthritis Diabetes type 2, uncontrolled Surgical History History of open heart surgery S/P laparoscopic hernia repair Previous back surgery Hx laparoscopic cholecystectomy Family History Mother Diabetes Heart disease Hypertension CVA (cerebral vascular accident) Sister CVA (cerebral vascular accident) Heart disease Other High cholesterol Social History household members: none housing: house current occupational status: retired Smoking Status: Former smoker alcohol intake: never substance use type: does not use caffeine: Yes what type of physical activity do you participate in: none frequency: does not exercise HPI HPI HPI: JOSE JOHN, is a 79 M who presents to the office today for discussion of dialysis access options. He has been on HD for a little over a year after emergent open heart surgery that involved a prolonged recovery. He is currently using a left IJ catheter that had been working well though required exchange about a week ago; catheter was working but had become loose. He has had a difficult past year in addition to his personal health problems. Earlier this year his and mother in law in fairly quick succession and he has been grieving their loss. His abrupt need for dialysis and the recovery process after the emergent surgery has also taken a toll, as well as shifting his medical care to providers closer to his home. He understands fistulas and their benefit but feels he needs to take time with the process. Right hand dominant, no prior pacer/AICD/arm or clavicle fracture/node dissection. ROS General General: Yes weight change, fatigue and weakness; No appetite, colon cancer or breast cancer HEENT HEENT: Yes eye surgery; No difficulty swallowing, eye injury, swollen glands or hoarseness Endo Endocrine: Yes diabetes mellitus; No thyroid disease, thyroid cancer, Hair loss, heat intolerance or cold intolerance Skin Skin: No rash or changing moles Musc Musculoskeletal: Yes back problems and joint pain; No arthritis, rheumatoid arthritis or gout Cardio Cardiovascular: Yes heart disease and high blood pressure; No murmur, pacemaker, atrial fibrillation, heart attack, heart stent, palpitations, shortness of breath with exertion or chest pain Psych Psychiatric: Yes depression and anxiety; No hearing voices Resp Respiratory: No shortness of breath, No sleep apnea, No cough, No COPD, No asthma, No emphysema and No wheezing Gastro Gastrointestinal: No a (more content not included)... Normal [facility] Office Visiton 01-29-2025 Follow-up visit [id number] Jose Jonh 1945 M Date Provider Department Center 01/29/2025 KALYANI SAMUEL [facility] No family history on file Level of Service:51576 OR OFFICE/OUTPATIENT NEW HIGH MDM 60 MINUTES Reason for Visit and Comments: New Patient [542] [facility] Progress Noteon 01-29-2025 Progress Note Provided support. [facility] Progress Note Follow-up with specialist [facility] Progress Note Managed by nephrolog y, continue hemodialysis as directed [facility] Progress Note Denies any symptoms. Currently not on any inhalers. [facility] Progress Note Stable. Continue asp irin 81 mg, restart atorvastatin 80 mg daily. [facility] Progress Note Currently asymptomat ic. Stable. [facility] Progress Note Restart atorvastatin 80 mg daily, continue aspirin 81 mg, continue blood pressure medications [facility] Progress Note Stable. Will refer t o cardiology [facility] Progress Note Apical regular. Cont inue current medications [facility] Progress Note Poorly controlled, r estart pantoprazole 40 mg daily [facility] Progress Note >>ASSESSMENT AND RAMON N FOR CENTRILOBULAR EMPHYSEMA (HCC) WRITTEN ON 01/29/2025 5:54 PM BY MALINA LEON CNP Stable. Currently not on any medications and denies any symptoms >>ASSESSMENT AND PLAN FOR CHRONIC OBSTRUCTIVE PULMONARY DISEASE (HCC) WRITTEN ON 01/29/2025 5:56 PM BY MALINA LEON CNP Denies any symptoms. Currently not on any inhalers. [facility] Progress Note Stable. Denies any c hest pain. Continue with current medications-referral to cardiology [facility] Progress Note Currently not on any insulin. Tvndw-rz-ygwn hemoglobin A1c today 5.7, continue with monitoring Normal [facility] Progress Note 01/29/2025 Jose John (: 1945) is a 79 y.o. male , New patient, here for evaluation of the following chief complaint(s): New Patient ASSESSMENT/PLAN: 1. Type 2 diabetes mellitus with other diabetic kidney complication, with long-term current use of insulin (HCC) Assessment & Plan: Currently not on any insulin. Mqjai-if-esyw hemoglobin A1c today 5.7, continue with monitoring Orders: - AMB POC HEMOGLOBIN A1C 2. Centrilobular emphysema (HCC) Assessment & Plan: Stable. Currently not on any medications and denies any symptoms 3. Atrial fibrillation, unspecified type (HCC) Assessment & Plan: Apical regular. Continue current medications 4. Anxiety Assessment & Plan: OARRS reviewed and consistent with treatment plan. GARFIELD MA in place. At this time we will continue lorazepam 0.5 mg nightly if needed for anxiety Orders: - LORazepam (Ativan) 0.5 MG tablet; Take 1 tablet (0.5 mg) by mouth Nightly for 10 days., Starting Josie 01/29/2025, Until Sun02/08/2025, Normal 5. Coronary artery disease involving [employer] heart without angina pectoris, unspecified vessel or lesion type Assessment & Plan: Restart atorvastatin 80 mg daily, continue aspirin 81 mg, continue blood pressure medications Orders: - atorvastatin (Lipitor) 80 MG tablet; Take 1 tablet (80 mg) by mouth daily., Starting Josie 01/29/2025, Until Sun04/29/2025, Normal - [facility] Cardiology 6. Neuropathy Assessment & Plan: Restart gabapentin but at renal dosing. GARFIELD TALAVERA obtained, OARRS reviewed and consistent with treatment plan Orders: - gabapentin (Neurontin) 100 MG capsule; Take 1 capsule after dialysis three times weekly on Sunday, and Sunday, Normal 7. Gastroesophageal reflux disease without esophagitis Assessment & Plan: Poorly controlled, restart pantoprazole 40 mg daily Orders: - pantoprazole (ProtoNix) 40 MG EC tablet; Take 1 tablet (40 mg) by mouth every morning (before breakfast). Do not crush, chew, or split., Starting Josie 01/29/2025, Until Sun04/29/2025, Normal 8. Hx of CABG Assessment & Plan: Stable. Will refer to cardiology 9. 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 Denies any chest pain. Continue with current medications-referral to cardiology 10. Congestive heart failure, unspecified HF chronicity, unspecified heart failure type ([facility]) Assessment & Plan: Currently asymptomatic. Stable. 11. Bilateral carotid artery stenosis Assessment & Plan: Stable. Continue aspirin 81 mg, restart atorvastatin 80 mg daily. 12. Chronic obstructive pulmonary disease, unspecified COPD type ([facility]) Assessment & Plan: Denies any symptoms. Currently not on any inhalers. 13. Grieving Assessment & Plan: Provided support. 14. End stage renal disease ([facility]) Assessment & Plan: Managed by nephrology, continue hemodialysis as directed 15. Weight loss Assessment & Plan: Unsure etiology. Will need to get records from nephrology for review of most recent labs. Unsure if patient has had any evaluation for his weight loss. Will need to obtain records to review 16. Macular degeneration of right eye, unspecified type Assessment & Plan: Follow-up with specialist Patient with many diagnosis pulled in from other [facility] encounters, very difficult to determine if active problems or not. It does not seem like he has had good outpatient follow-up for his previous CABG and complications that occurred thereafter. He has not been taking several of his cardiac medications that I am unsure if he needs to resume them or not, since his blood pressure and heart rate are good and he denies any chest pain or shortness of breath-we will hold off on restarting some of his previous cardiac meds until he is seen by cardiology. Will need to do further review of his chart to determine next steps and plan of care regarding his weight loss. On this date, 01/29/2025, I have spent 90+ minutes reviewing previous notes, test results, and face to face with the patient discussing the diagnosis and importance of compliance with the treatment plan as well as documenting on the day of the visit. Follow up in about 2 weeks (around 02/12/2025). SUBJECTIVE/OBJECTIVE: [facility] - Jose John presents as new patient, previous primary care provider Olena Gabriel in [place]., last seen over a year ago. by previous provider. Specialists/other providers? Yes, describe: When he was hospitalized he was seeing cardiology and vascular, that was last year. He was not established with anyone outpatient. He is established with outpatient nephrology as he is currently on dialysis for renal failure. Chief complaint(s): New Patient Patient presents to establish care. Reports that he previously was seen by a primary care provider in [place] prior to getting sick last year and having a CABG, then ran into complications with wound (more content not included)... [facility] Progress Note Patient was identifi ed by name and Date of . Lost Health Maintenance Due Topic Hepatitis C Screening- DTaP/Tdap/Td Vaccines- Pneumococcal Vaccine- Zoster Vaccines- RSV Immunization for Adults- COVID-19 Vaccine- Depression Monitoring- Hepatitis B Vaccines- New patient- will need scheduled for AWV NIKKI faxed to [facility]. Patient was identified by name and Date of . Finger stick for A1C was pended and signed by provider. Materials needed were collected, gloves were put on, patients finger was cleansed with an alcohol swab then dried with gauze,finger stick was completed. Slight pressure applied, first drop of blood was wiped away by gauze and 2nd drop collected for sample.Patient tolerated well. Results entered and provider verbally notified. Charged for finger stick: Yes Results entered: Yes [facility] 36on 01-27-2025 36 Noted. Thank you. [facility] 36 The patient stopped in the office confused about his appt date and time. He is scheduled to see Ree Crump on 01-29-25 at 11:20 as a new patient. He thought his appt was today. I verified on the schedule that he is scheduled to see her on 01-29-25. He states he has another appt at that time. He wanted to know if we could schedule him at another time [facility]. He also stated that he was in the hospital for several months, then in an extended facility and he also recently lost his and mother in law within one month of each other. He appeared to be very depressed. I offered him multiple other times and he refused. I also offered to schedule him at another [place] office. He again refused and said that he lives in [place] and only wants to come here. We also offered him February 04, 2025 with Ree and he said to forget it he would find someone else. Normal [facility] 12 Lead EKGon 01-13-2025 12 Lead EKG [facility] Cardiovascular Services [address] [place] [address] 12 Lead EKG 01/13/25 1314 MR#: [id number] Acct: [id number] Name: JOSE JOHN Rep #: [id number] : 1945 79 From: Chris Bull MD Attending Dr: Status: DEP ER Ordering Dr: Nikolas Rose MD Date: 01/13/25 Location: ED Sex: M C Admitted: Test Reason : Blood Pressure : */* mmHG Vent. Rate : 69 BPM Atrial Rate : 69 BPM P-R Int : 136 ms QRS Dur : 94 ms QT Int : 452 ms P-R-T Axes : 45 74 163 degrees QTcB Int : 484 ms Normal sinus rhythm T wave abnormality, consider inferolateral ischemia Prolonged QT Abnormal ECG When compared with ECG of 01-Jan-2025 08:27, Inverted T waves have replaced nonspecific T wave abnormality in Inferior leads Inverted T waves have replaced nonspecific T wave abnormality in Lateral leads Confirmed by Chris Bull ([id number]), editor department YAMIL HOFFMANN ([id number]) on 01/15/2025 1:16:40 PM Referred By: Confirmed By: Chris Bull 01/15/25 1316 Date Chris Bull MD CC: Dr. Nikolas Rose MD; No Primary Care Physician Signed Normal [facility] Absolute lymphocyte countOrd ered By: ED PROVIDER on 01-13-2025 Lymphocytes Auto (Unsp spec) [#/Vol] 0.86 10*3/uL 0.83-4.51 [facility] Absolute neutrophil countOrd ered By: ED PROVIDER on 01-13-2025 Neutrophils (Bld) [#/Vol] 4.3 10*3/uL 2.0-7.7 [facility] Anion gap in Serum or Plasma Ordered By: Nikolas Rose on 01-13-2025 Anion gap [Moles/Vol] 11 mmol/L 5-15 [facility] Automated lymphocyte count a s percentage of total leukocytesOrdered By: ED PROVIDER on 01-13-2025 Lymphocytes/100 WBC Auto (Unsp spec) 14.3 % Low 19-41 [facility] BUN/creatinine ratioOrdered By: Nikolas Rose on 01-13-2025 Urea nitrogen/Creatinine [Mass ratio] 6.1 mg/mg Low 10-20 [facility] Basic Metabolic Profile (BMP )on 01-13-2025 BUN/CRE 6.1 RATIO Low 10-20 [facility] Comment on above: Performed By: #### L 499.0043 #### [facility] [address] [place], [address] Calcium [Mass/Vol] 8.5 mg/dL Normal 7.6-11.0 [facility] Comment on above: Performed By: #### L 499.0043 #### [facility] [address] [place], [address] Chloride [Moles/Vol] 99 mmol/L Normal 98-108 [facility] Comment on above: Performed By: #### L 499.0043 #### [facility] [address] [place], [address] CO2 [Moles/Vol] 27.4 mmol/L Normal 21.0-32.0 [facility] Comment on above: Performed By: #### L 499.0043 #### [facility] [address] [place], [address] Creatinine [Mass/Vol] 4.21 mg/dL High 0.70-1.20 [facility] Comment on above: Performed By: #### L 499.0043 #### [facility] [address] [place], [address] ECRCL 11.97 ml/min Low 50-250 [facility] Comment on above: Performed By: #### L 499.0043 #### [facility] [address] [place], [address] GAP 11 Normal 5-15 [facility] Comment on above: Performed By: #### L 499.0043 #### [facility] [address] [place], [address] GFR/1.73 sq M.predicted among non-blacks MDRD (S/P/Bld) [Vol rate/Area] 14 mL/min/{1.73_m2} Low >60 [facility] Comment on above: Result Comment: mL/m in/1.73m2 CKD-EPI Creatinine Equation (2020) Performed By: #### L 499.0043 #### [facility] [address] [place], [address] Glucose [Mass/Vol] 136 mg/dL High 70-99 [facility] Comment on above: Performed By: #### L 499.0043 #### [facility] [address] [place], [address] Potassium [Moles/Vol] 4.0 mmol/L Normal 3.3-5.1 [facility] Comment on above: Performed By: #### L 499.0043 #### [facility] [address] [place], [address] Sodium [Moles/Vol] 138 mmol/L Normal 133-145 [facility] Comment on above: Performed By: #### L 499.0043 #### [facility] [address] [place], [address] Urea nitrogen [Mass/Vol] 26 mg/dL High 4-19 [facility] Comment on above: Performed By: #### L 499.0043 #### [facility] [address] [place], [address] Basophil percentageOrdered B y: ED PROVIDER on 01-13-2025 Basophils/100 WBC (Bld) 0.8 % 0-1 [facility] CBC W/Diff, Automatedon 01-04 Absolute Lymph 0.86 X10 3/uL Normal 0.83-4.51 [facility] Comment on above: Performed By: #### L 499.0043 #### [facility] [address] [place], [address] Absolute Neut 4.3 X10 3/uL Normal 2.0-7.7 [facility] Comment on above: Performed By: #### L 499.0043 #### [facility] [address] [place], [address] Basophils/100 WBC (Bld) 0.8 % Normal 0-1 [facility] Comment on above: Performed By: #### L 499.0043 #### [facility] [address] [place], [address] Eosinophils/100 WBC (Bld) 2.3 % Normal 0-5 [facility] Comment on above: Performed By: #### L 499.0043 #### [facility] [address] [place], [address] Erythrocyte distribution width (RBC) [Ratio] 14.6 % Normal 11.6-14.6 [facility] Comment on above: Performed By: #### L 499.0043 #### [facility] [address] [place], [address] Hematocrit (Bld) [Volume fraction] 35.5 % Low 40-54 [facility] Comment on above: Performed By: #### L 499.0043 #### [facility] [address] [place], [address] Hemoglobin (Bld) [Mass/Vol] 11.6 g/dL Low 13.0-16.5 [facility] Comment on above: Performed By: #### L 499.0043 #### [facility] [address] [place], [address] IG% 0.200 Normal 0.0-0.9 [facility] Comment on above: Result Comment: IG% - Immature Granulocytes (promyelocytes, myelocytes and metamyelocytes) > 1% indicates that a LEFT SHIFT is Present. Performed By: #### L 499.0043 #### [facility] [address] [place], [address] Lymphocytes/100 WBC (Bld) 14.3 % Low 19-41 [facility] Comment on above: Performed By: #### L 499.0043 #### [facility] [address] [place], [address] MCH (RBC) [Entitic mass] 31.2 pg Normal 27.0-32.0 [facility] Comment on above: Performed By: #### L 499.0043 #### [facility] [address] [place], [address] MCHC (RBC) [Mass/Vol] 32.7 g/dL Normal 32-36 [facility] Comment on above: Performed By: #### L 499.0043 #### [facility] [address] [place], [address] MCV (RBC) [Entitic vol] 95.4 fL High 80-94 [facility] Comment on above: Performed By: #### L 499.0043 #### [facility] [address] [place], [address] Monocytes/100 WBC (Bld) 10.6 % High 0-10 [facility] Comment on above: Performed By: #### L 499.0043 #### [facility] [address] [place], [address] Neutrophils/100 WBC (Bld) 71.8 % High 47-70 [facility] Comment on above: Performed By: #### L 499.0043 #### [facility] [address] [place], [address] Nucleated RBC (Bld) [#/Vol] 0 10*3/uL Normal 0-5 [facility] Comment on above: Performed By: #### L 499.0043 #### [facility] [address] [place], [address] Platelet mean volume (Bld) [Entitic vol] 10.7 fL Normal 6.2-12.0 [facility] Comment on above: Performed By: #### L 499.0043 #### [facility] [address] [place], [address] Platelets (Bld) [#/Vol] 127 10*3/uL Low 150-450 [facility] Comment on above: Performed By: #### L 499.0043 #### [facility] [address] [place], [address] RBC (Bld) [#/Vol] 3.72 10*6/uL Low 4.6-6.2 [facility] Comment on above: Performed By: #### L 499.0043 #### [facility] [address] [place], [address] RDW SD 50.9 fl High 35.1-43.9 [facility] Comment on above: Performed By: #### L 499.0043 #### [facility] [address] [place], [address] WBC (Bld) [#/Vol] 6.0 10*3/uL Normal 4.4-11.0 [facility] Comment on above: Performed By: #### L 499.0043 #### [facility] [address] [place], [address] Carbon dioxide, total [Moles /volume] in Central venous bloodOrdered By: Nikolas Rose on 01-13-2025 CO2 [Moles/Vol] 27.4 mmol/L 21.0-32.0 [facility] Chest 1 View (Portable)on Chest 1 View (Portable) [facility] Imaging Services [address] [place] [address] Chest 1 View (Portable) MR#: [id number] Acct: [id number] Name: JOSE JOHN Rep #: [id number] : 1945 M 79 From: Andres Hall MD PCP: Care Physician,No Primary Status: PRE ER Study: Chest 1 View (Portable) Date of Exam: 01/13/25 Exam# [id number] Ordering Dr: Nikolas Rose MD PROCEDURE: CHEST 1 VIEW (PORTABLE) 01/13/2025 REASON FOR EXAM: CHEST PAIN TECHNIQUE: Frontal view of the chest. COMPARISON: January 01, 2025 FINDINGS: There is a dual-lumen central line on the left with its tip in the superior vena cava at the right atrium, unchanged. Sternotomy wires and hardware are unchanged. There is cardiomegaly with mild central vascular congestion, similar to the prior. There is infiltrate in the left midlung and right lung base, similar to the prior. There is no visible pneumothorax. There is blunting of the costophrenic angle on the right and left consistent with trace effusions. There is no visible pneumothorax. There is no acute bony abnormality. RAD/Chest 1 View (Portable) IMPRESSION: There is cardiomegaly with mild central vascular congestion, similar to the prior. There is infiltrate in the left midlung and right lung base, similar to the prior. There is blunting of the costophrenic angle on the right and left consistent with trace effusions, unchanged. Reading Location: [facility] CC: Dr. Nikolas Rose MD; No Primary Care Physician Access Specialist: Signed Normal [facility] Chloride assayOrdered By: Pete Rose on 01-13-2025 Chloride [Moles/Vol] 99 mmol/L 98-108 [facility] Emergency Department Summary on 01-13-2025 Emergency Department Summary [facility] Medical Records Department [address] [place] [address] Emergency Department Summary 01/13/25 MR#: [id number] Acct: [id number] Name: JOSE JOHN Rep #: [id number] : 1945 79 From: Nikolas Rose MD PCP: Care Physician,No Primary Status:REG ER Location: ED HPI History of Present Illness Chief Complaint: Chest Pain Detail of Chief Complaint: Chest heaviness and pressure that started after eating breakfast this morni Informant: patient Onset/Context/Timing Onset: Today and Yesterday Activity at onset: sudden and rest Timing: Continuous Quality: Positive for Heaviness and Pressure Location: Substernal Current Severity: Mild Maximum Severity: Moderate Worsened By: Breathing; Not Worsened By Exertion, Movement of Arm, Movement of Torso, Eating, Palpation or Coughing Relieved By: Nothing Associated Symptoms: Positive for Dyspnea and - (Numbness left little finger); Negative for Nausea, Vomiting, Diaphoresis, Cough, Fever, Lightheadedness, Acid Reflux or Palpitations Narrative Narrative: Patient is a 79-year-old male. He has history of coronary disease status post bypass surgery November of last year. He had a 90-day hospital stay after his surgery. After he was discharged he his and nmmlle-ey-jla went to assisted living facility in [facility]. His and jopymg-rk-wzn both in November. He now lives independently at his residence. He lives alone. He does admit to being sad with increased appetite and unable to gain weight. Yesterday had an episode of chest discomfort. Could not tell me how long it lasted. This episode started after he had breakfast which he made for himself, sausage and Italian toast. He reported slight shortness of breath. He also complains of pain to the medial of the left scapula that radiates to the left shoulder. This is been going on for some time. He attributes this to sitting in dialysis for hours. He is on hemodialysis since last February. He goes on Sunday, Sunday and Sunday. Prior Similar Symptoms: Yes (Did not answer and was not similar to his anginal pain.) Recent Illness/Hospitalization: No CVD Risk Factors: Positive for Hypertension and Diabetes (Type II); Negative for Smoking PE Risk Factors: Negative for Recent Travel/Surgery, Recent Immobilization, Prior DVT or PE, Cancer or OCP + Smoking + >/=35 TAD Risk Factors: Positive for Hypertension; Negative for Marfan's Syndrome or Family History PFSH PFSH Medical History DVT (deep venous thrombosis) Dialysis patient Carotid artery bruit Coronary artery disease Cardiomyopathy CKD (chronic kidney disease) stage 4, GFR 15-29 ml/min ZOFIA (acute kidney injury) Anemia Inguinal hernia of right side without obstruction or gangrene Easy bruising Neuropathy Former smoker Heartburn Chronic renal insufficiency, stage III (moderate) Depression Black tarry stools Diarrhea Abdominal pain Hx TIA/stroke w/o resid Mini stroke Fatigue Hypertension L eye torn retina Pseudobulbar affect Anxiety disorder Macular degeneration Kidney stones Osteoarthritis Diabetes type 2, uncontrolled Home Medications ???Medication ???Instructions ???Recorded ???Last Taken ???Type lorazepam 1 mg tablet (Ativan) 1 mg PO TID PRN anxiety #10 tabs 0 01/01/25 Unknown Rx carvedilol 6.25 mg tablet 6.25 mg PO BID 01/13/25 01/12/25 H istory nifedipine 60 mg tablet,extended 60 mg PO DAILY 01/13/25 01/13/25 H istory release 24 hr Allergy/AdvReac Type Severity Reaction Status Date / Time lisinopril Allergy Severe raspy Verified 01/01/25 07:44 voice and cough Penicillins Allergy Anaphylaxis Verified 01/01/25 07:44 Sulfa (Sulfonamide Allergy Anaphylaxis Verified 01/01/25 07:44 Antibiotics) levofloxacin (From Levaquin) AdvReac Upset Verified 01/01/25 07:44 Stomach Family History Mother Diabetes Heart disease Hypertension CVA (cerebral vascular accident) Sister CVA (cerebral vascular accident) Heart disease Other High cholesterol Surgical History History of open heart surgery S/P laparoscopic hernia repair Previous back surgery Hx laparoscopic cholecystectomy Social History household members: none housing: house current occupational status: retired Smoking Status: Former smoker alcohol intake: never substance use type: does not use caffeine: Yes what type of physical activity do you participate in: none frequency: does not exercise ROS ROS ED Constitutional Constitutional ED: Denies chills, fever(s), subjective, sweats or weight loss Eyes Eyes: Reports none ENT ENT ED: Denies rhinorrhea or sore throat (more content not included)... Normal [facility] Eosinophil percentageOrdered By: ED PROVIDER on 01-13-2025 Eosinophils/100 WBC (Bld) 2.3 % 0-5 [facility] Erythrocyte distribution wid th ratioOrdered By: ED PROVIDER on 01-13-2025 Erythrocyte distribution width (RBC) [Ratio] 14.6 % 11.6-14.6 [facility] Erythrocyte distribution wid th standard deviationOrdered By: ED PROVIDER on 01-13-2025 Erythrocyte distribution width (RBC) [Ratio] 50.9 fl High 35.1-43.9 [facility] Glomerular filtration rate ( GFR) estimation/1.73 sq m using serum, plasma, or whole bOrdered By: Nikolas Rose on 01-13-2025 GFR/1.73 sq M.predicted among non-blacks MDRD (S/P/Bld) [Vol rate/Area] 14 mL/min/{1.73_m2} Low >60 [facility] Comment on above: mL/min/1.73m2 CKD-EP I Creatinine Equation (2020) Hematocrit Auto (Bld) [Volum e fraction]Ordered By: ED PROVIDER on 01-13-2025 Hematocrit (Bld) [Volume fraction] 35.5 % Low 40-54 [facility] Hemoglobin measurementOrdere d By: ED PROVIDER on 01-13-2025 Hemoglobin (Bld) [Mass/Vol] 11.6 g/dL Low 13.0-16.5 [facility] Immature granulocytes/100 WB C Auto (Bld)Ordered By: ED PROVIDER on 01-13-2025 Immature granulocytes/100 WBC (Bld) 0.200 % 0.0-0.9 [facility] Comment on above: IG% - Immature Granu locytes (promyelocytes, myelocytes and metamyelocytes) > 1% indicates that a LEFT SHIFT is Present. L499.0042on 01-13-2025 Trop T High Sen 75 ng/L Invalid Interpretation Code <=22 [facility] Comment on above: Result Comment: Crit ical Result(s) Called ACOLE at: 1534 by: NIKOLAS??Results read back by same. Performed By: #### L 100.0100, L500.2500 #### [facility] [address] [place], [address] L499.0043on 01-13-2025 Trop T High Sen Normal <=22 [facility] Comment on above: Result Comment: Canc elled via OM: Order cancelled - Patient discharged Performed By: #### L 499.0043 #### [facility] [address] [place], [address] L501.4021on 01-13-2025 Trop T High Sen 79 ng/L Invalid Interpretation Code <=22 [facility] Comment on above: Result Comment: Crit ical Result(s) Called at 1425: by: BRENDAN SNIDER TO [facility]. ??Results read back by same. Performed By: #### L 499.0042 #### [facility] [address] [place], [address] MCV (mean corpuscular volume ) determinationOrdered By: ED PROVIDER on 01-13-2025 MCV (RBC) [Entitic vol] 95.4 fL High 80-94 [facility] Mean corpuscular hemoglobin (MCH) determinationOrdered By: ED PROVIDER on 01-13-2025 MCH (RBC) [Entitic mass] 31.2 pg 27.0-32.0 [facility] Mean corpuscular hemoglobin concentration (MCHC) determinationOrdered By: ED PROVIDER on 01-13-2025 MCHC (RBC) [Mass/Vol] 32.7 g/dL 32-36 [facility] Mean platelet volume determi nationOrdered By: ED PROVIDER on 01-13-2025 Platelet mean volume (Bld) [Entitic vol] 10.7 fL 6.2-12.0 [facility] Monocyte percentageOrdered B y: ED PROVIDER on 01-13-2025 Monocytes/100 WBC (Bld) 10.6 % High 0-10 [facility] Neutrophil percentageOrdered By: ED PROVIDER on 01-13-2025 Neutrophils/100 WBC (Bld) 71.8 % High 47-70 [facility] Nucleated red blood cell per centageOrdered By: ED PROVIDER on 01-13-2025 Nucleated RBC/100 WBC (Bld) [Ratio] 0 % 0-5 [facility] Platelet countOrdered By: ED PROVIDER on 01-13-2025 Platelets (Bld) [#/Vol] 127 10*3/uL Low 150-450 [facility] Potassium measurement (mass/ volume)Ordered By: Nikolas Rose on 01-13-2025 Potassium (Unsp spec) [Mass/Vol] 4.0 mmol/L 3.3-5.1 [facility] RBC Auto (Bld) [#/Vol]Ordere d By: ED PROVIDER on 01-13-2025 RBC (Bld) [#/Vol] 3.72 10*6/uL Low 4.6-6.2 [facility] Serum creatinine measurement (mass/volume)Ordered By: Nikolas Rose on 01-13-2025 Creatinine [Mass/Vol] 4.21 mg/dL High 0.70-1.20 [facility] Serum glucose measurement (m ass/volume)Ordered By: Nikolas Rose on 01-13-2025 Glucose [Mass/Vol] 136 mg/dL High 70-99 [facility] Serum or plasma calcium maxine urement (mass/volume)Ordered By: Nikolas Rose on 01-13-2025 Calcium [Mass/Vol] 8.5 mg/dL 7.6-11.0 [facility] Serum or plasma urea nitroge n measurement (mass/volume)Ordered By: Nikolas Rose on 01-13-2025 Urea nitrogen [Mass/Vol] 26 mg/dL High 4-19 [facility] Sodium levelOrdered By: Nikolas Rose on 01-13-2025 Sodium [Moles/Vol] 138 mmol/L 133-145 [facility] Troponin T.cardiac [Mass/vol ume] in Serum or Plasma by High sensitivity methodOrdered By: Nikolas Rose on 01-13-2025 Troponin T.cardiac High sensitivity method [Mass/Vol] 75 ng/L High <22 [facility] Comment on above: Critical Result(s) C alled ACOLE at: 1534 by: NIKOLAS Results read back by same. Troponin T.cardiac High sensitivity method [Mass/Vol] 79 ng/L High <22 [facility] Comment on above: Delta: 73 on [phone] Result(s) Called at 1425: by: BRENDAN SNIDER TO [facility]. Results read back by same. White blood cell (WBC) count Ordered By: ED PROVIDER on 01-13-2025 WBC (Bld) [#/Vol] 6.0 10*3/uL 4.4-11.0 [facility] Venous duplex ultrasound rep ortOrdered By: Emmanuel Freeman on 01-08-2025 US Vein [facility] Cardi[facility] Services [address] [place] [address] Dialysis Vein Map PRE-OP BILAT 01/06/25 1250 MR#: [id number] Acct: [id number] Name: JOSE JOHN Rep #:[id number] : 1945 79 From: Emmanuel Bonilla Attending Dr: Dr. Jakob Allen MD Status: REG CLI Ordering Dr: Jakob Allen MD Date : 01/06/25 Location: [facility] Sex: M C Admitted: Reason For Study Reason For Study: Pre - Op Right Lower Arm Left Arm Proximal Radial artery diameter 0.14 x 0.16 mm. Left Brachial artery diameter 0.36 x 0.39 mm. Proximal Radial artery waveform is triphasic . Left Brachial artery waveform is triphasic . Rt Radial A PSV -31.8 cm/s. Lt Brachial A - 89.3 cm/s. Right Arm Cephalic Vein at distal forearm measures 0.23 x 0.24 Right Brachial artery diameter 0.37 x 0.43 mm. cm. Right Brachial artery waveform is triphasic . Cephalic Vein at mid forearm measures 0.19 x 0.21 cm. Rt Brachial A - 78.5 cm/s. Cephalic Vein proximal forearm measures 0.25 x 0.30 Cephalic Vein at distal forearm measures 0.21 x 0.22 cm. cm. Cephalic Vein distal upper arm measures 0.13 x 0.15 Cephalic Vein at mid forearm measures 0.15 x 0.16 cm. cm. Cephalic Vein proximal forearm measures 0.13 x 0.15 Cephalic Vein at mid upper arm measures 0.21 x 0.27 cm. cm. Cephalic Vein distal upper arm measures 0.14 x 0.17 Cephalic Vein at proximal upper arm measures 0.18 x cm. 0.21 cm. Cephalic Vein at mid upper arm measures 0.16 x 0.22 Proximal Basilic vein measures 0.65 x 0.67 cm. cm. Mid Basilic vein measures 0.37x 0.36 cm. Cephalic Vein at proximal upper arm measures 0.13 x Distal Basilicvein measures 0.52 x 0.55 cm. 0.15 cm. Left Lower Arm Proximal Basilic vein measures 0.34 x 0.38 cm. Proximal Radial artery diameter 0.14 x 0.15 mm. Mid Basilic vein measures 0.29 x 0.30 cm. Proximal Radial artery waveform is triphasic . Distal Basilic vein measures 0.34 x 0.42 cm. Lt Radial A - 65.1 cm/s. VL/Dialysis Vein Map PRE-OP BILAT Interpretation Summary Bilateral upper extremity arteries patent with normal waveforms and measurementsabove. Bilateral upper extremity veins patent with measurements above. Ordering Physician: Jakob Allen Referring Physician: N/A Performed By: Reuben Galvan, T ??? 01/08/25 1044 Date _ Emmanuel Freeman MD CC: Dr. Jakob Allen MD; No Primary Care Physician ~ Date Dictated: 01/06/25 1250 Date Transcribed: 01/08/25 1044 Access Specialist: Signed [facility] Work Phone: Dialysis Vein Map PRE-OP LINDSAY ATon 01-06-2025 Dialysis Vein Map PRE-OP BILAT [facility] Cardiovascular Services [place] [address] Dialysis Vein Map PRE-OP BILAT 01/06/25 1250 MR#: [id number] Acct: [id number] Name: JOSE JOHN Rep #: [id number] : 1945 79 From: Emmanuel Freeman MD Attending Dr: Dr. Jakob Allen MD Status: REG CLI Ordering Dr: Jakob Allen MD Date: 01/06/25 Location: [facility] Sex: M C Admitted: Reason For Study Reason For Study: Pre - Op Right Lower Arm Left Arm Proximal Radial artery diameter 0.14 x 0.16 mm. Left Brachial artery diameter 0.36 x 0.39 mm. Proximal Radial artery waveform is triphasic . Left Brachial artery waveform is triphasic . Rt Radial A PSV -31.8 cm/s. Lt Brachial A - 89.3 cm/s. Right Arm Cephalic Vein at distal forearm measures 0.23 x 0.24 Right Brachial artery diameter 0.37 x 0.43 mm. cm. Right Brachial artery waveform is triphasic . Cephalic Vein at mid forearm measures 0.19 x 0.21 cm. Rt Brachial A - 78.5 cm/s. Cephalic Vein proximal forearm measures 0.25 x 0.30 Cephalic Vein at distal forearm measures 0.21 x 0.22 cm. cm. Cephalic Vein distal upper arm measures 0.13 x 0.15 Cephalic Vein at mid forearm measures 0.15 x 0.16 cm. cm. Cephalic Vein proximal forearm measures 0.13 x 0.15 Cephalic Vein at mid upper arm measures 0.21 x 0.27 cm. cm. Cephalic Vein distal upper arm measures 0.14 x 0.17 Cephalic Vein at proximal upper arm measures 0.18 x cm. 0.21 cm. Cephalic Vein at mid upper arm measures 0.16 x 0.22 Proximal Basilic vein measures 0.65 x 0.67 cm. cm. Mid Basilic vein measures 0.37x 0.36 cm. Cephalic Vein at proximal upper arm measures 0.13 x Distal Basilic vein measures 0.52 x 0.55 cm. 0.15 cm. Left Lower Arm Proximal Basilic vein measures 0.34 x 0.38 cm. Proximal Radial artery diameter 0.14 x 0.15 mm. Mid Basilic vein measures 0.29 x 0.30 cm. Proximal Radial artery waveform is triphasic . Distal Basilic vein measures 0.34 x 0.42 cm. Lt Radial A - 65.1 cm/s. VL/Dialysis Vein Map PRE-OP BILAT Interpretation Summary Bilateral upper extremity arteries patent with normal waveforms and measurements above. Bilateral upper extremity veins patent with measurements above. Ordering Physician: Jakob Allen Referring Physician: N/A Performed By: Reuben Galvan, T ??? 01/08/25 1044 Date Emmanuel Freeman MD CC: Dr. Jakob Allen MD; No Primary Care Physician Date Dictated: 01/06/25 1250 Date Transcribed: 01/08/25 1044 Access Specialist: Signed Normal [facility] 12 Lead EKGon 01-01-2025 12 Lead EKG [facility] Cardiovascular Services [address] [place] [address] 12 Lead EKG 01/01/25 0827 MR#: [id number] Acct: [id number] Name: JOSE JOHN Rep #: [id number] : 1945 79 From: Chris Bull MD Attending Dr: Status: DEP ER Ordering Dr: Lena Mcfarland DO Date: 01/01/25 Location: ED Sex: M C Admitted: Test Reason : WEAKNESS Blood Pressure : */* mmHG Vent. Rate : 72 BPM Atrial Rate : 72 BPM P-R Int : 142 ms QRS Dur : 104 ms QT Int : 454 ms P-R-T Axes : 48 96 123 degrees QTcB Int : 497 ms Normal sinus rhythm Possible Left atrial enlargement Rightward axis Nonspecific T wave abnormality QTcB >= 480 msec Abnormal ECG Confirmed by Chris Bull ([id number]), editor department EDELMIRA HENDERSON ([id number]) on 01/05/2025 11:35:39 AM Referred By: Confirmed By: Chris Bull 01/05/25 1135 Date Chris Bull MD CC: Dr. Lena Mcfarland DO; No Primary Care Physician Signed Normal [facility] Abdomen/Pelvis without Conto n 01-01-2025 Abdomen/Pelvis without Cont [facility] Imaging Services [address] [place] [address] [id number] Abdomen/Pelvis without Cont MR#: [id number] Acct: [id number] Name: JOSE JOHN Rep #: [id number] : 1945 79 From: Nura ch MD PCP: Care Physician,No Primary Status: REG ER Study: Abdomen/Pelvis without Cont Date of Exam: 12/05 04/30 Exam# [id number] Ordering Dr: Lena Mcfarland DO PROCEDURE: ABDOMEN/PELVIS WITHOUT CONT 01/01/2025 REASON FOR EXAM: LEFT FLANK PAIN TECHNIQUE: Abdomen and pelvis CT without intravenous contrast. Noncontrast technique limits evaluation of the abdominal and pelvic viscera. Coronal and Sagittal reconstruction series were provided. One or more dose reduction techniques were used (e.g., Automated exposure control, adjustment of the mA and/or kV according to patient size, use of iterative reconstruction technique). PATIENT PREPARATION: Per protocol ORAL CONTRAST TYPE: None. Radiation dose report: CTDI L volume: 6.04. DLP: 292.95 COMPARISON: Prior renal sonogram dated November 14, 2023. FINDINGS: Lung bases: Small bilateral pleural effusions right greater than left with bibasilar infiltration and/or atelectasis. Fluid is seen within the right major fissure. Coronary artery calcification. Liver: Normal size. No obvious mass. Gallbladder: Surgically absent. Spleen: Borderline splenomegaly. Multiple calcified splenic granulomas. Pancreas: Normal size. No surrounding inflammation. Adrenals: Unremarkable Kidneys: Atrophy of the left kidney. There is a nonobstructive calculus in the lower pole calyx of the left kidney measuring 7.9 mm. Bladder: Mild degree of bladder wall thickening. Diffuse enlargement of the prostate measures 5.2 cm. This causes indentation of the bladder base. Prostatic calcifications. Bowel: Colonic diverticulosis without diverticulitis. Appendix: Unremarkable Lymph nodes: Unremarkable. Vasculature: Extensive atherosclerotic calcification of the abdominal aorta and the major branches. Peritoneum / Retroperitoneum: Unremarkable Bones: Degenerative changes of the spine. CT/Abdomen/Pelvis without Cont IMPRESSION: Bilateral pleural effusions right greater than left with bibasilar infiltration and/or atelectasis worse at the right lung base. Borderline splenomegaly and calcified splenic granulomas. Left renal atrophy. Nonobstructive calculus in the lower pole calyx of the left kidney. No evidence of ureteral obstruction at this time. Prostatic enlargement with indentation at the bladder base. OVERALL FINAL ASSESSMENT: . LI-RADS is not meant to be used in patients <18 years or patients with cirrhosis due to congenital hepatic fibrosis or due to vascular disorders, because these patients have a lower chance of developing HCC. Reading Location: [id number] CC: Dr. Lena Mcfarland, DO; No Primary Care Physician Access Specialist: Signed Normal [facility] Absolute lymphocyte countOrd ered By: Lena Mcfarland on 01-01-2025 Lymphocytes Auto (Unsp spec) [#/Vol] 0.97 10*3/uL 0.83-4.51 [facility] Absolute neutrophil countOrd ered By: Lena Mcfarland on 01-01-2025 Neutrophils (Bld) [#/Vol] 2.8 10*3/uL 2.0-7.7 [facility] Anion gap in Serum or Plasma Ordered By: Lena Mcfarland on 01-01-2025 Anion gap [Moles/Vol] 11 mmol/L 5-15 [facility] Automated lymphocyte count a s percentage of total leukocytesOrdered By: Lena Mcfraland on 01-01-2025 Lymphocytes/100 WBC Auto (Unsp spec) 20.1 % 19-41 [facility] BUN/creatinine ratioOrdered By: Remus Bruna on 01-01-2025 Urea nitrogen/Creatinine [Mass ratio] 6.0 mg/mg Low - [facility] Basic Metabolic Profile (BMP )on 01-01-2025 BUN/CRE 6.0 RATIO Low 10- [facility] Comment on above: Performed By: #### L 100.0100, L500.2500 #### [facility] [address] [place], [address] Calcium [Mass/Vol] 9.0 mg/dL Normal 7.6-11.0 [facility] Comment on above: Performed By: #### L 100.0100, L500.2500 #### [facility] [address] [place], [address] Chloride [Moles/Vol] 100 mmol/L Normal 98-108 [facility] Comment on above: Performed By: #### L 100.0100, L500.2500 #### [facility] [address] [place], [address] CO2 [Moles/Vol] 28.0 mmol/L Normal 21.0-32.0 [facility] Comment on above: Performed By: #### L 100.0100, L500.2500 #### [facility] [address] [place], [address] Creatinine [Mass/Vol] 3.43 mg/dL High 0.70-1.20 [facility] Comment on above: Performed By: #### L 100.0100, L500.2500 #### [facility] [address] [place], [address] ECRCL 15.48 ml/min Low 50-250 [facility] Comment on above: Performed By: #### L 100.0100, L500.2500 #### [facility] [address] [place], [address] GAP 11 Normal 5-15 [facility] Comment on above: Performed By: #### L 100.0100, L500.2500 #### [facility] [address] [place], [address] GFR/1.73 sq M.predicted among non-blacks MDRD (S/P/Bld) [Vol rate/Area] 18 mL/min/{1.73_m2} Low >60 [facility] Comment on above: Result Comment: mL/m in/1.73m2 CKD-EPI Creatinine Equation (2020) Performed By: #### L 100.0100, L500.2500 #### [facility] [address] [place], [address] Glucose [Mass/Vol] 110 mg/dL High 70-99 [facility] Comment on above: Performed By: #### L 100.0100, L500.2500 #### [facility] [address] [place], [address] Potassium [Moles/Vol] 3.8 mmol/L Normal 3.3-5.1 [facility] Comment on above: Performed By: #### L 100.0100, L500.2500 #### [facility] [address] [place], [address] Sodium [Moles/Vol] 140 mmol/L Normal 133-145 [facility] Comment on above: Performed By: #### L 100.0100, L500.2500 #### [facility] [address] [place], [address] Urea nitrogen [Mass/Vol] 21 mg/dL High 4-19 [facility] Comment on above: Performed By: #### L 100.0100, L500.2500 #### [facility] [address] [place], [address] Basophil percentageOrdered B y: Hina Bruna on 01-01-2025 Basophils/100 WBC (Bld) 1.0 % 0-1 [facility] Bedside Glucoseon 01-01-2025 FINGERSTICK GLU 102 mg/dL Normal 74-106 [facility] Comment on above: Result Comment: KAYE GARCIA OF PATIENT CARE PER NURSING PROTOCOL Performed By: #### L 501.080 #### [facility] [address] [facility] [place], [address] Bilirubin Test strip Ql (U)O rdered By: Lena Mcfarland on 01-01-2025 Bilirubin Ql (U) Negative Negative [facility] CBC W/Diff, Automatedon 12-05 Absolute Lymph 0.97 X10 3/uL Normal 0.83-4.51 [facility] Comment on above: Performed By: #### L 100.0100, L500.2500 #### [facility] [address] [facility] [place] [place], [address] Absolute Neut 2.8 X10 3/uL Normal 2.0-7.7 [facility] Comment on above: Performed By: #### L 100.0100, L500.2500 #### [facility] [address] [place], [address] Basophils/100 WBC (Bld) 1.0 % Normal 0-1 [facility] Comment on above: Performed By: #### L 100.0100, L500.2500 #### [facility] [address] [place], [address] Eosinophils/100 WBC (Bld) 5.2 % High 0-5 [facility] Comment on above: Performed By: #### L 100.0100, L500.2500 #### [facility] [address] [place], [address] Erythrocyte distribution width (RBC) [Ratio] 14.5 % Normal 11.6-14.6 [facility] Comment on above: Performed By: #### L 100.0100, L500.2500 #### [facility] [address] [place], [address] Hematocrit (Bld) [Volume fraction] 36.3 % Low 40-54 [facility] Comment on above: Performed By: #### L 100.0100, L500.2500 #### [facility] [address] [place], [address] Hemoglobin (Bld) [Mass/Vol] 11.8 g/dL Low 13.0-16.5 [facility] Comment on above: Performed By: #### L 100.0100, L500.2500 #### [facility] [address] [place], [address] IG% 0.200 Normal 0.0-0.9 [facility] Comment on above: Result Comment: IG% - Immature Granulocytes (promyelocytes, myelocytes and metamyelocytes) > 1% indicates that a LEFT SHIFT is Present. Performed By: #### L 100.0100, L500.2500 #### [facility] [address] [place], [address] Lymphocytes/100 WBC (Bld) 20.1 % Normal 19-41 [facility] Comment on above: Performed By: #### L 100.0100, L500.2500 #### [facility] [address] [place], [address] MCH (RBC) [Entitic mass] 31.1 pg Normal 27.0-32.0 [facility] Comment on above: Performed By: #### L 100.0100, L500.2500 #### [facility] [address] [place], [address] MCHC (RBC) [Mass/Vol] 32.5 g/dL Normal 32-36 [facility] Comment on above: Performed By: #### L 100.0100, L500.2500 #### [facility] [address] [place], [address] MCV (RBC) [Entitic vol] 95.5 fL High 80-94 [facility] Comment on above: Performed By: #### L 100.0100, L500.2500 #### [facility] [address] [place], [address] Monocytes/100 WBC (Bld) 15.8 % High 0-10 [facility] Comment on above: Performed By: #### L 100.0100, L500.2500 #### [facility] [address] [place], [address] Neutrophils/100 WBC (Bld) 57.7 % Normal 47-70 [facility] Comment on above: Performed By: #### L 100.0100, L500.2500 #### [facility] [address] [place], [address] Nucleated RBC (Bld) [#/Vol] 0 10*3/uL Normal 0-5 [facility] Comment on above: Performed By: #### L 100.0100, L500.2500 #### [facility] [address] [place], [address] Platelet mean volume (Bld) [Entitic vol] 11.1 fL Normal 6.2-12.0 [facility] Comment on above: Performed By: #### L 100.0100, L500.2500 #### [facility] [address] [place], [address] Platelets (Bld) [#/Vol] 147 10*3/uL Low 150-450 [facility] Comment on above: Performed By: #### L 100.0100, L500.2500 #### [facility] [address] [place], [address] RBC (Bld) [#/Vol] 3.80 10*6/uL Low 4.6-6.2 [facility] Comment on above: Performed By: #### L 100.0100, L500.2500 #### [facility] [address] [place], [address] RDW SD 50.8 fl High 35.1-43.9 [facility] Comment on above: Performed By: #### L 100.0100, L500.2500 #### [facility] [address] [place], [address] WBC (Bld) [#/Vol] 4.8 10*3/uL Normal 4.4-11.0 [facility] Comment on above: Performed By: #### L 100.0100, L500.2500 #### [facility] [address] [place], [address] Carbon dioxide, total [Moles /volume] in Central venous bloodOrdered By: Lena Mcfarland on 01-01-2025 CO2 [Moles/Vol] 28.0 mmol/L 21.0-32.0 [facility] Chest 1 View (Portable)on Chest 1 View (Portable) [facility] Imaging Services [address] [place] [address] Chest 1 View (Portable) MR#: [id number] Acct: [id number] Name: JOHNJOSE Pee Rep #: [id number] : 1945 M 79 From: Nura ch MD PCP: Care Physician,No Primary Status: REG ER Study: Chest 1 View (Portable) Date of Exam: 01/01/25 Exam# [id number] Ordering Dr: Lena Mcfarland DO PROCEDURE: CHEST 1 VIEW (PORTABLE) 01/01/2025 REASON FOR EXAM: DYSPNEA TECHNIQUE: Frontal view of the chest. COMPARISON: Prior study dated November 13, 1999 4. FINDINGS: Hardware: A left-sided double-lumen catheter is seen with the tip at the cavoatrial junction.. EKG electrodes are seen. Heart: Prior midline sternotomy. Cardiomegaly. Lungs: Vascular congestion and CHF. Increased markings at the lung bases more prominent on the right side suggestive of bibasilar atelectasis and/or early infiltrate. Blunting of the right costophrenic angle. Bones: Degenerative changes are identified within the thoracic spine. Other: RAD/Chest 1 View (Portable) IMPRESSION: Findings suggestive of vascular congestion and CHF with bibasilar atelectasis and/or early infiltrate more prominent the right lung base. The tip of the left-sided double-lumen catheter is at the junction of the superior vena cava and right atrium. Reading Location: [id number] CC: Dr. Lena Mcfarland DO; No Primary Care Physician Access Specialist: Signed Normal [facility] Chloride assayOrdered By: Nithya Mcfarland on 01-01-2025 Chloride [Moles/Vol] 100 mmol/L 98-108 [facility] Emergency Department Summary on 01-01-2025 Emergency Department Summary [facility] Medical Records Department [address] [place] [address] Emergency Department Summary 01/01/25 MR#: [id number] Acct: [id number] Name: JOSE JOHN Rep #: [id number] : 1945 79 From: Lena Mcfarland DO PCP: Care Physician,No Primary Status:DEP ER Location: ED HPI History of Present Illness Chief Complaint: Weakness Detail of Chief Complaint: Weakness Informant: patient Narrative Narrative: Patient presents to the emergency department complaint of generalized weakness this morning. He states that he had dialysis yesterday and after he came home and ate dinner just did not feel well. He woke up this morning felt like he was having palpitations. His breathing feels shallow. He called EMS. Patient has history of elevated blood pressure and tells me he has been taking his blood pressure medication. He states his blood pressure has been running in the 200 systolic over the low 100s diastolic. Describes some mild chest discomfort and at times feels his heartbeat in his left shoulder and neck. He tells me he had open heart surgery and had four-vessel bypass last year. He denies recent illness. He has been on dialysis since last year and his last dialysis was yesterday. Patient also has been under increased stress as he lost his this November. He currently lives alone. He recently also lost another family member. Patient denies feeling suicidal or homicidal. [facility] Medical History (Updated 01/01/25 @ 11:[address] Lena Mcfarland, DO) DVT (deep venous thrombosis) Dialysis patient Carotid artery bruit Coronary artery disease Cardiomyopathy CKD (chronic kidney disease) stage 4, GFR 15-29 ml/min ZOFIA (acute kidney injury) Anemia Inguinal hernia of right side without obstruction or gangrene Easy bruising Neuropathy Former smoker Heartburn Chronic renal insufficiency, stage III (moderate) Depression Black tarry stools Diarrhea Abdominal pain Hx TIA/stroke w/o resid Mini stroke Fatigue Hypertension L eye torn retina Pseudobulbar affect Anxiety disorder Macular degeneration Kidney stones Osteoarthritis Diabetes type 2, uncontrolled Home Medications ???Medication ???Instructions ???Recorded ???Last Taken ???Type amlodipine 5 mg tablet 5 mg PO DAILY blood pressure #90 0 10/01/23 Unknown Rx tabs atorvastatin 20 mg tablet 20 mg PO DAILY cholesterol #90 tab s 10/02/23 Unknown Rx escitalopram oxalate 10 mg tablet 10 mg PO DAILY Anxiety #90 tabs 0 10/02/23 Unknown Rx (Lexapro) prednisone 20 mg tablet 40 mg (2 x 20 mg) PO DAILY back Unknown Rx #20 tabs tramadol 50 mg tablet 50 mg PO Q6H pain lower back 7 10/27 Unknown Rx days #28 tabs gabapentin 300 mg capsule 300 mg PO BID nerve pain 11/13/23 Unknown History metformin 1,000 mg tablet 1,000 mg PO QHS diabetes 11/13/23 Unknown History metformin 1,000 mg tablet 500 mg PO DAILY diabetes 11/13/23 Unknown History omeprazole 20 mg tablet,delayed 20 mg PO BID PRN heartburn 4 Unknown History release tamsulosin 0.4 mg capsule 0.4 mg PO QHS urine flow 11/13/23 Unknown History lorazepam 1 mg tablet (Ativan) 1 mg PO TID PRN anxiety #10 tabs 0 01/01/25 Unknown Rx Allergy/AdvReac Type Severity Reaction Status Date / Time lisinopril Allergy Severe raspy Verified 01/01/25 07:44 voice and cough Penicillins Allergy Anaphylaxis Verified 01/01/25 07:44 Sulfa (Sulfonamide Allergy Anaphylaxis Verified 01/01/25 07:44 Antibiotics) levofloxacin (From Levaquin) AdvReac Upset Verified 01/01/25 07:44 Stomach Family History Mother Diabetes Heart disease Hypertension CVA (cerebral vascular accident) Sister CVA (cerebral vascular accident) Heart disease Other High cholesterol Surgical History (Updated 01/01/25 @ 07:50 by Neyda Madrid) History of open heart surgery S/P laparoscopic hernia repair Previous back surgery Hx laparoscopic cholecystectomy Social History Smoking Status: Former smoker alcohol intake: never substance use type: does not use caffeine: Yes what type of physical activity do you participate in: none frequency: does not exercise ROS ROS ED Review of Systems ROS Unobtainable: other Constitutional Constitutional ED: Reports lethargy; Denies chills, fever(s), sweats or weight loss Eyes Eyes: Denies blurry vision, change in vision or diplopia ENT ENT ED: Denies rhinorrhea or sore throat Cardiovascular Cardiovascular: Reports chest pain, palpitations and racing heartbeat; Denies orthopnea Respiratory/Chest Respiratory/Chest: Reports dyspnea; Denies cough, dyspnea on exertion, orthopnea or sputum Gastrointestinal Gastrointestinal: Denies abdomina (more content not included)... Normal [facility] Eosinophil percentageOrdered By: Lena Mcfarland on 01-01-2025 Eosinophils/100 WBC (Bld) 5.2 % High 0-5 [facility] Erythrocyte distribution wid th ratioOrdered By: Lena Mcfarland on 01-01-2025 Erythrocyte distribution width (RBC) [Ratio] 14.5 % 11.6-14.6 [facility] Erythrocyte distribution wid th standard deviationOrdered By: Lena Mcfarland on 01-01-2025 Erythrocyte distribution width (RBC) [Ratio] 50.8 fl High 35.1-43.9 [facility] Glomerular filtration rate ( GFR) estimation/1.73 sq m using serum, plasma, or whole bOrdered By: Lena Mcfarland on 01-01-2025 GFR/1.73 sq M.predicted among non-blacks MDRD (S/P/Bld) [Vol rate/Area] 18 mL/min/{1.73_m2} Low >60 [facility] Comment on above: mL/min/1.73m2 CKD-EP I Creatinine Equation (2020) [facility] deOrdered By: Lena Mcfarland on 01-01-2025 Glucose [Mass/Vol] 102 mg/dL 74-106 [facility] Comment on above: MANAGEMENT OF PATIEN T CARE PER NURSING PROTOCOL Hematocrit Auto (Bld) [Volum e fraction]Ordered By: Lena Mcfarland on 01-01-2025 Hematocrit (Bld) [Volume fraction] 36.3 % Low 40-54 [facility] Hemoglobin measurementOrdere d By: Lena Mcfarland on 01-01-2025 Hemoglobin (Bld) [Mass/Vol] 11.8 g/dL Low 13.0-16.5 [facility] Immature granulocytes/100 WB C Auto (Bld)Ordered By: Lena Mcfarland on 01-01-2025 Immature granulocytes/100 WBC (Bld) 0.200 % 0.0-0.9 [facility] Comment on above: IG% - Immature Granu locytes (promyelocytes, myelocytes and metamyelocytes) > 1% indicates that a LEFT SHIFT is Present. Ketones Test strip Ql (U)Ord ered By: Lena Mcfarland on 01-01-2025 Ketones Ql (U) Negative Negative [facility] [id number] 01-01-2025 Trop T High Sen 72 ng/L Invalid Interpretation Code <=22 [facility] Comment on above: Result Comment: Crit ical Result(s) Called at: 01/01/2025-11:35 by: Thai Alvarenga to Neyda Madrid.??Results read back by same. Performed By: #### L 499.0042 #### [facility] [address] [place], [address] L499.0043on 01-01-2025 Trop T High Sen Normal <=22 [facility] Comment on above: Result Comment: [facility] DEPARTED ER. Performed By: #### L 499.0043 #### [facility] [address] [place], [address] L501.4021on 01-01-2025 Trop T High Sen 73 ng/L Invalid Interpretation Code <=22 [facility] Comment on above: Result Comment: Crit ical Result(s) Called at: 01/01/2025-09:08 by: Thai Alvarenga to Neyda Madrid??Results read back by same. Performed By: #### L 501.4021 #### [facility] [address] [place], [address] MCV (mean corpuscular volume ) determinationOrdered By: Lena Mcfarland on 01-01-2025 MCV (RBC) [Entitic vol] 95.5 fL High 80-94 [facility] Mean corpuscular hemoglobin (MCH) determinationOrdered By: Lena Mcfarland on 01-01-2025 MCH (RBC) [Entitic mass] 31.1 pg 27.0-32.0 [facility] Mean corpuscular hemoglobin concentration (MCHC) determinationOrdered By: Lena Mcfarland on 01-01-2025 MCHC (RBC) [Mass/Vol] 32.5 g/dL 32-36 [facility] Mean platelet volume determi nationOrdered By: Lena Mcfarland on 01-01-2025 Platelet mean volume (Bld) [Entitic vol] 11.1 fL 6.2-12.0 [facility] Microscopic analysis of urin e for red blood cells (RBC)Ordered By: Lena Mcfarland on 01-01-2025 Microscopic analysis of urine for red blood cells (RBC) 0-5 SEEN /hpf 0-5 [facility] Monocyte percentageOrdered B y: Lena Mcfarland on 01-01-2025 Monocytes/100 WBC (Bld) 15.8 % High 0-10 [facility] Mucus LM Ql (Urine sed)Order ed By: Lena Mcfarland on 01-01-2025 Mucus Ql (Urine sed) 0 SEEN /hpf [facility] Neutrophil percentageOrdered By: Lena Mcfarland on 01-01-2025 Neutrophils/100 WBC (Bld) 57.7 % 47-70 [facility] Nitrite Test strip Ql (U)Ord ered By: Hinaus Landaverdebabatunde on 01-01-2025 Nitrite Ql (U) Negative Negative [facility] Nucleated red blood cell per centageOrdered By: Lena Akhilbabatunde on 01-01-2025 Nucleated RBC/100 WBC (Bld) [Ratio] 0 % 0-5 [facility] Platelet countOrdered By: Nithya Mcfarland on 01-01-2025 Platelets (Bld) [#/Vol] 147 10*3/uL Low 150-450 [facility] Potassium measurement (mass/ volume)Ordered By: Lena Mcfarland on 01-01-2025 Potassium (Unsp spec) [Mass/Vol] 3.8 mmol/L 3.3-5.1 [facility] Protein Test strip Ql (U)Ord ered By: Lena Mcfarland on 01-01-2025 Protein Ql (U) 100 mg/dl High Negative [facility] RBC Auto (Bld) [#/Vol]Ordere d By: Lena Akhilbabatunde on 01-01-2025 RBC (Bld) [#/Vol] 3.80 10*6/uL Low 4.6-6.2 [facility] Serum creatinine measurement (mass/volume)Ordered By: Lena Mcfarland on 01-01-2025 Creatinine [Mass/Vol] 3.43 mg/dL High 0.70-1.20 [facility] Serum glucose measurement (m ass/volume)Ordered By: Lena Mcfarland on 01-01-2025 Glucose [Mass/Vol] 110 mg/dL High 70-99 [facility] Serum or plasma calcium maxine urement (mass/volume)Ordered By: Lena Mcfarland on 01-01-2025 Calcium [Mass/Vol] 9.0 mg/dL 7.6-11.0 [facility] Serum or plasma urea nitroge n measurement (mass/volume)Ordered By: Lena Mcfarland on 01-01-2025 Urea nitrogen [Mass/Vol] 21 mg/dL High 4-19 [facility] Sodium levelOrdered By: Mia Mcfarland on 01-01-2025 Sodium [Moles/Vol] 140 mmol/L 133-145 [facility] Squamous epithelial cells de tection in urine sediment by light microscopyOrdered By: Lena Mcfarland on 01-01-2025 Epithelial cells.squamous LM Ql (Urine sed) 0-5 SEEN /hpf 0-5 [facility] Troponin T.cardiac [Mass/vol ume] in Serum or Plasma by High sensitivity methodOrdered By: Lena Mcfarland on 01-01-2025 Troponin T.cardiac High sensitivity method [Mass/Vol] 72 ng/L High <22 [facility] Comment on above: Critical Result(s) C alled at: 01/01/2025-11:35 by: Thai Alvarenga to Neyda Madrid. Results read back by same. Troponin T.cardiac High sensitivity method [Mass/Vol] 73 ng/L High <22 [facility] Comment on above: Critical Result(s) C alled at: 01/01/2025-09:08 by: Thai Alvarenga to Neyda Madrid Results read back by same. Urinalysis, Completeon 01-01 EPI,SQUAMOUS 0-5 SEEN Normal 0-5 [facility] Comment on above: Order Comment: CLEAN CATCH Performed By: #### L 400.0001 #### [facility] [address] [place], [address] RBC 0-5 SEEN Normal 0-5 [facility] Comment on above: Order Comment: CLEAN CATCH Performed By: #### L 400.0001 #### [facility] [address] [place], [address] WBC 0-5 SEEN Normal 0-5 [facility] Comment on above: Order Comment: CLEAN CATCH Performed By: #### L 400.0001 #### [facility] [address] [place], [address] BACTERIA 0 SEEN Normal None Seen [facility] Comment on above: Order Comment: CLEAN CATCH Performed By: #### L 400.0001 #### [facility] [address] [place], [address] Mucus Ql (Urine sed) 0 SEEN Normal [facility] Comment on above: Order Comment: CLEAN CATCH Performed By: #### L 400.0001 #### [facility] [place], [address] Urine clarityOrdered By: Hina Mcfarland on 01-01-2025 Clarity (U) Clear Clear [facility] Urine color determinationOrd ered By: Lena Mcfarland on 01-01-2025 Color (U) Yellow Yellow [facility] Urine glucose detectionOrder ed By: Lena Mcfarland on 01-01-2025 Glucose Ql (U) 100 mg/dl High Normal [facility] Urine leukocyte esterase det ection by dipstickOrdered By: Lena Mcfarland on 01-01-2025 Leukocyte esterase Test strip Ql (U) Negative Negative [facility] Urine pHOrdered By: Lena Un gur on 01-01-2025 pH (U) 8.0 [pH] 5.0 - 8.0 [facility] Urine sediment bacteria coun t by microscopy (number/high power field)Ordered By: Lena Mcfarland on 01-01-2025 Bacteria LM.HPF (Urine sed) [#/Area] 0 /[HPF] None Seen [facility] Urine specific gravity measu rementOrdered By: Lena Mcfarland on 01-01-2025 Specific gravity (U) [Rel density] 1.015 1.002-1.03 0 [facility] Urine urobilinogen measureme ntOrdered By: Lena Mcfarland on 01-01-2025 Urobilinogen Ql (U) Normal mg/dl Normal [facility] White blood cell (WBC) count Ordered By: Lena Mcfarland on 01-01-2025 WBC (Bld) [#/Vol] 4.8 10*3/uL 4.4-11.0 [facility] White blood cell countOrdere d By: Lena Mcfarland on 01-01-2025 White blood cell count 0-5 SEEN /hpf 0-5 [facility] CASE MANAGEMon 10-09-2024 CASE MANAGEM Normal [facility] CBC panel Auto (Bld)on 10-09 Erythrocyte distribution width (RBC) [Ratio] 12.3 % Normal 11.5-15.0 [facility] Comment on above: Order Comment: Speci men Type: BLOOD SPECIMENOrdering Facility: [facility] Address: [address] [place] [address] Performed By: #### 5 8410-2 ####[facility]ORATORYCLIA [id number] [address] Hematocrit (Bld) [Volume fraction] 34.9 % Low 39.0-51.0 [facility] Comment on above: Order Comment: Speci men Type: BLOOD SPECIMENOrdering Facility: [facility] Address: [address] [place] [address] Performed By: #### 5 8410-2 ####[facility]ORATORYCLIA [id number] [address] Hemoglobin (Bld) [Mass/Vol] 11.5 g/dL Low 13.0-17.0 [facility] Comment on above: Order Comment: Speci men Type: BLOOD SPECIMENOrdering Facility: [facility] Address: [address] [place] [address] Performed By: #### 5 8410-2 ####[facility]ORATORYCLIA [id number] [address] MCH (RBC) [Entitic mass] 31.5 pg Normal 26.0-34.0 [facility] Comment on above: Order Comment: Speci men Type: BLOOD SPECIMENOrdering Facility: [facility] Address: [address] [place] [address] Performed By: #### 5 8410-2 ####[facility]ORATORYCLIA [id number] [address] STATES [facility] MCHC (RBC) [Mass/Vol] 33.0 g/dL Normal 30.5-36.0 [facility] Comment on above: Order Comment: Speci men Type: BLOOD SPECIMENOrdering Facility: [facility] Address: [address] [place] [address] Performed By: #### 5 8410-2 ####[facility]ORATORYCLIA [id number] [address] MCV (RBC) [Entitic vol] 95.6 fL Normal 80.0-100.0 [facility] Comment on above: Order Comment: Speci men Type: BLOOD SPECIMENOrdering Facility: [facility] Address: [address] [place] [address] Performed By: #### 5 8410-2 ####[facility] LABORATORYCLIA [id number] [place] [address] [place] Nucleated RBC (Bld) [#/Vol] 10*3/uL Normal <0.01 [facility] Comment on above: Order Comment: Speci men Type: BLOOD SPECIMENOrdering Facility: [facility] Address: [address] [place] [address] Performed By: #### 5 8410-2 ####[facility] LABORATORYCLIA [id number] [place] [address] [place] Platelet mean volume (Bld) [Entitic vol] 9.7 fL Normal 9.0-12.7 [facility] Comment on above: Order Comment: Speci men Type: BLOOD SPECIMENOrdering Facility: [facility] Address: [address] [place] [address] Performed By: #### 5 8410-2 ####[facility] LABORATORYCLIA [id number] [place] [id number] [place] Platelets (Bld) [#/Vol] 201 10*3/uL Normal 150-400 [facility] Comment on above: Order Comment: Speci men Type: BLOOD SPECIMENOrdering Facility: [facility] Address: [address] [place] [address] Performed By: #### 5 8410-2 ####[facility] LABORATORYCLIA [id number] [place] [id number] [place] RBC (Bld) [#/Vol] 3.65 10*6/uL Low 4.20-6.00 [facility] Comment on above: Order Comment: Speci men Type: BLOOD SPECIMENOrdering Facility: [facility] Address: [address] [place] [address] Performed By: #### 5 8410-2 ####[facility] LABORATORYCLIA [id number] [place] [id number] [place] WBC (Bld) [#/Vol] 8.38 10*3/uL Normal 3.70-11.00 [facility] Comment on above: Order Comment: Speci men Type: BLOOD SPECIMENOrdering Facility: [facility] Address: [facility] [place] [address] Performed By: #### 5 8410-2 ####[facility] LABORATORYCLIA [id number] [address] OF [place] CNDSon 10-09-2024 CNDS Normal [facility] CONSULT PROGon 10-09-2024 CONSULT PROG Normal [facility] Comprehensive metabolic 2000 panelon 10-09-2024 Albumin [Mass/Vol] 3.7 g/dL Low 3.9-4.9 [facility] Comment on above: Order Comment: Speci men Type: BLOOD SPECIMENOrdering Facility: [facility] Address: [address] [place] [address] Performed By: #### 2 4323-8 ####[facility] LABORATORYCLIA [id number] [address] STATES OF [facility] ALP [Catalytic activity/Vol] 69 U/L Normal 38-113 [facility] Comment on above: Order Comment: Speci men Type: BLOOD SPECIMENOrdering Facility: [facility] Address: [address] [place] [address] Performed By: #### 2 4323-8 ####[facility] LABORATORYCLIA [id number] [address] ALT [Catalytic activity/Vol] 6 U/L Low 10-54 [facility] Comment on above: Order Comment: Speci men Type: BLOOD SPECIMENOrdering Facility: [facility] Address: [address] [place] [address] Performed By: #### 2 4323-8 ####[facility] LABORATORYCLIA [id number] [address] Anion gap [Moles/Vol] 12 mmol/L Normal 8-15 [facility] Comment on above: Order Comment: Speci men Type: BLOOD SPECIMENOrdering Facility: [facility] Address: [address] [place] [address] Performed By: #### 2 4323-8 ####[facility] LABORATORYCLIA [id number] [place] [address] [place] AST [Catalytic activity/Vol] 10 U/L Low 14-40 [facility] Comment on above: Order Comment: Speci men Type: BLOOD SPECIMENOrdering Facility: [facility] Address: [address] [place] [address] Performed By: #### 2 4323-8 ####[facility] LABORATORYCLIA [id number] [place] [address] [place] Bilirubin [Mass/Vol] 0.2 mg/dL Normal 0.2-1.3 [facility] Comment on above: Order Comment: Speci men Type: BLOOD SPECIMENOrdering Facility: [facility] Address: [address] [place] [address] Performed By: #### 2 4323-8 ####[facility] LABORATORYCLIA [id number] [address] [place] Calcium [Mass/Vol] 9.4 mg/dL Normal 8.5-10.2 [facility] Comment on above: Order Comment: Speci men Type: BLOOD SPECIMENOrdering Facility: [facility] Address: [address] [place] [address] Performed By: #### 2 4323-8 ####[facility] LABORATORYCLIA [id number] [place] [address] [place] Chloride [Moles/Vol] 98 mmol/L Normal 98-107 [facility] Comment on above: Order Comment: Speci men Type: BLOOD SPECIMENOrdering Facility: [facility] Address: [address] [place] [address] Performed By: #### 2 4323-8 ####[facility] LABORATORYCLIA [id number] [place] [address] [place] CO2 [Moles/Vol] 25 mmol/L Normal 22-30 [facility] Comment on above: Order Comment: Speci men Type: BLOOD SPECIMENOrdering Facility: [facility] Address: [address] [place] [address] Performed By: #### 2 4323-8 ####[facility] LABORATORYCLIA [id number] [place] [address] [place] Creatinine [Mass/Vol] 3.52 mg/dL High 0.73-1.22 [facility] Comment on above: Order Comment: Alise montejo Type: BLOOD SPECIMENOrdering Facility: [facility] Address: [address] [place] [address] Performed By: #### 2 4323-8 ####[facility] LABORATORYCLIA [id number] [address] Creatinine and Glomerular filtration rate.predicted panel (S/P/Bld) 17 mL/min/1.73m??? Low >=60 [facility] Comment on above: Order Comment: Alise mnotejo Type: BLOOD SPECIMENOrdering Facility: [facility] Address: [address] [place] [address] Result Comment: Anupama mated Glomerular Filtration Rate (eGFR) is calculated using the 2020 CKD-EPI creatinine equation. This equation utilizes serum creatinine, sex, and age as parameters. The creatinine assay has traceable calibration to isotope dilution-mass spectrometry. Refer to KDIGO guidelines for clinical interpretation. In patients with unstable renal function, e.g. those with acute kidney injury, the eGFR may not accurately reflect actual GFR. Performed By: #### 2 4323-8 ####[facility] LABORATORYCLIA [id number] [address] [place] Glucose [Mass/Vol] 152 mg/dL High 74-99 [facility] Comment on above: Order Comment: Alise montejo Type: BLOOD SPECIMENOrdering Facility: [facility] Address: [address] [place] [address] Result Comment: The [place] [employer] (ADA) provides guidance for cutoff values for fasting glucose and random glucose. The ADA defines fasting as no caloric intake for at least 8 hours. Fasting plasma glucose results between 100 to 125 mg/dL indicate increased risk for diabetes (prediabetes).Fasting plasma glucose results greater than or equal to 126 mg/dL meet the criteria for diagnosis of diabetes. In the absence of unequivocal hyperglycemia, results should be confirmed by repeat testing. In a patient with classic symptoms of hyperglycemia or hyperglycemic crisis, random plasma glucose results greater than or equal to 200 mg/dL meet the criteria for diagnosis of diabetes.Reference: Standards of Medical Care in Diabetes 2016, [place] [employer]. Diabetes Care. 2016.39(Suppl 1). Performed By: #### 2 4323-8 ####[facility] LABORATORYCLIA [id number] [address] Potassium [Moles/Vol] 4.5 mmol/L Normal 3.7-5.1 [facility] Comment on above: Order Comment: Speci men Type: BLOOD SPECIMENOrdering Facility: [facility] Address: [address] [place] [address] Performed By: #### 2 4323-8 ####[facility] LABORATORYCLIA [id number] [address] Protein [Mass/Vol] 6.8 g/dL Normal 6.3-8.0 [facility] Comment on above: Order Comment: Speci men Type: BLOOD SPECIMENOrdering Facility: [facility] Address: [address] [place] [address] Performed By: #### 2 4323-8 ####[facility] LABORATORYCLIA [id number] [address] STATES [facility] Sodium [Moles/Vol] 135 mmol/L Low 136-144 [facility] Comment on above: Order Comment: Speci men Type: BLOOD SPECIMENOrdering Facility: [facility] Address: [address] [place] [address] Performed By: #### 2 4323-8 ####[facility] LABORATORYCLIA [id number] [address] [place] Urea nitrogen [Mass/Vol] 28 mg/dL High 9-24 [facility] Comment on above: Order Comment: Speci men Type: BLOOD SPECIMENOrdering Facility: [facility] Address: [address] [place] [address] Performed By: #### 2 4323-8 ####[facility] LABORATORYCLIA [id number] [address] [place] CBC panel Auto (Bld)on 10-08 Erythrocyte distribution width (RBC) [Ratio] 12.4 % Normal 11.5-15.0 [facility] Comment on above: Order Comment: Speci men Type: BLOOD SPECIMENOrdering Facility: [facility] Address: [address] [place] [address] Performed By: #### 5 8410-2 ####[facility] LABORATORYCLIA [id number] [address] Hematocrit (Bld) [Volume fraction] 31.3 % Low 39.0-51.0 [facility] Comment on above: Order Comment: Speci men Type: BLOOD SPECIMENOrdering Facility: [facility] Address: [address] [place] [address] Performed By: #### 5 8410-2 ####[facility] LABORATORYCLIA [id number] [address] Hemoglobin (Bld) [Mass/Vol] 10.6 g/dL Low 13.0-17.0 [facility] Comment on above: Order Comment: Speci men Type: BLOOD SPECIMENOrdering Facility: [facility] Address: [address] [place] [address] Performed By: #### 5 8410-2 ####[facility] LABORATORYCLIA [id number] [address] MCH (RBC) [Entitic mass] 31.5 pg Normal 26.0-34.0 [facility] Comment on above: Order Comment: Speci men Type: BLOOD SPECIMENOrdering Facility: [facility] Address: [address] [place] [address] Performed By: #### 5 8410-2 ####[facility] LABORATORYCLIA [id number] [address] STATES [facility] MCHC (RBC) [Mass/Vol] 33.9 g/dL Normal 30.5-36.0 [facility] Comment on above: Order Comment: Speci men Type: BLOOD SPECIMENOrdering Facility: [facility] Address: [address] [place] [address] Performed By: #### 5 8410-2 ####[facility] LABORATORYCLIA [id number] [place] [address] [place] MCV (RBC) [Entitic vol] 92.9 fL Normal 80.0-100.0 [facility] Comment on above: Order Comment: Speci men Type: BLOOD SPECIMENOrdering Facility: [facility] Address: [address] [place] [address] Performed By: #### 5 8410-2 ####[facility] LABORATORYCLIA [id number] [place] [address] [place] Nucleated RBC (Bld) [#/Vol] 10*3/uL Normal <0.01 [facility] Comment on above: Order Comment: Speci men Type: BLOOD SPECIMENOrdering Facility: [facility] Address: [address] [place] [address] Performed By: #### 5 8410-2 ####[facility] LABORATORYCLIA [id number] [place] [address] [place] Platelet mean volume (Bld) [Entitic vol] 10.0 fL Normal 9.0-12.7 [facility] Comment on above: Order Comment: Speci men Type: BLOOD SPECIMENOrdering Facility: [facility] [facility] Address: [address] [place] [address] Performed By: #### 5 8410-2 ####VALLECILLO LABORATORYCLIA [id number] [place] [address] [place] Platelets (Bld) [#/Vol] 180 10*3/uL Normal 150-400 [facility] Comment on above: Order Comment: Speci men Type: BLOOD SPECIMENOrdering Facility: [facility] Address: [address] [place] [address] Performed By: #### 5 8410-2 ####VALLECILLO LABORATORYCLIA [id number] [place] [address] [place] RBC (Bld) [#/Vol] 3.37 10*6/uL Low 4.20-6.00 [facility] Comment on above: Order Comment: Speci men Type: BLOOD SPECIMENOrdering Facility: [facility] Address: [address] [place] [address] Performed By: #### 5 8410-2 ####VALLECILLO LABORATORYCLIA [id number] [place] [address] [place] WBC (Bld) [#/Vol] 6.30 10*3/uL Normal 3.70-11.00 [facility] Comment on above: Order Comment: Speci men Type: BLOOD SPECIMENOrdering Facility: [facility] Address: [address] [place] [address] Performed By: #### 5 8410-2 ####ROYAL OAK LABORATORYCLIA [id number] [place] [id number] [facility] [place] CONSULT PROGon 10-08-2024 CONSULT PROG Normal [facility] Comprehensive metabolic 2000 panelon 10-08-2024 Albumin [Mass/Vol] 3.5 g/dL Low 3.9-4.9 [facility] Comment on above: Order Comment: Speci men Type: BLOOD SPECIMENOrdering Facility: [facility] Address: [address] [place] [address] Performed By: #### 2 4323-8, 2777-1 ####ROYAL OAK LABORATORYCLIA [id number] [place] [address] [place] ALP [Catalytic activity/Vol] 62 U/L Normal 38-113 [facility] Comment on above: Order Comment: Speci men Type: BLOOD SPECIMENOrdering Facility: [facility] Address: [address] [place] [address] Performed By: #### 2 4323-8, 2777-1 ####ROYAL OAK LABORATORYCLIA [id number] [place] [id number] [place] ALT [Catalytic activity/Vol] U/L Low 10-54 [facility] Comment on above: Order Comment: Speci men Type: BLOOD SPECIMENOrdering Facility: [facility] Address: [address] [place] [address] Performed By: #### 2 4323-8, 2777-1 ####VALLECILLO LABORATORYCLIA [id number] [place] [address] [place] Anion gap [Moles/Vol] 10 mmol/L Normal 8-15 [facility] Comment on above: Order Comment: Speci men Type: BLOOD SPECIMENOrdering Facility: [facility] Address: [address] [place] [address] Performed By: #### 2 4323-8, 2776-08 ####VALLECILLO LABORATORYCLIA [id number] [place] [address] [place] AST [Catalytic activity/Vol] 9 U/L Low 14-40 [facility] Comment on above: Order Comment: Speci men Type: BLOOD SPECIMENOrdering Facility: [facility] Address: [address] [place] [address] Performed By: #### 2 4323-8, 2776-08 ####VALLECILLO LABORATORYCLIA [id number] [place] [address] [place] Bilirubin [Mass/Vol] 0.3 mg/dL Normal 0.2-1.3 [facility] Comment on above: Order Comment: Speci men Type: BLOOD SPECIMENOrdering Facility: [facility] Address: [address] [place] [address] Performed By: #### 2 4323-8, 2776-08 ####VALLECILLO LABORATORYCLIA [id number] [place] [address] [place] Calcium [Mass/Vol] 9.0 mg/dL Normal 8.5-10.2 [facility] Comment on above: Order Comment: Speci men Type: BLOOD SPECIMENOrdering Facility: [facility] Address: [address] [place] [address] Performed By: #### 2 4323-8, 2776-08 ####VALLECILLO LABORATORYCLIA [id number] [place] [address] [place] Chloride [Moles/Vol] 97 mmol/L Low 98-107 [facility] Comment on above: Order Comment: Speci men Type: BLOOD SPECIMENOrdering Facility: [facility] Address: [address] [place] [address] Performed By: #### 2 4323-8, 2776- ####VALLECILLO LABORATORYCLIA [id number] [place] [address] [place] CO2 [Moles/Vol] 28 mmol/L Normal 22-30 [facility] Comment on above: Order Comment: Speci men Type: BLOOD SPECIMENOrdering Facility: [facility] Address: [address] [place] [address] Performed By: #### 2 4323-8, 2777-1 ####VALLECILLO LABORATORYCLIA [id number] [place] [address] [place] Creatinine [Mass/Vol] 3.74 mg/dL High 0.73-1.22 [facility] Comment on above: Order Comment: Alise nikia Type: BLOOD SPECIMENOrdering Facility: [facility] Address: [address] [place] [address] Performed By: #### 2 4323-8, 277- ####VALLECILLO LABORATORYCLIA [id number] [place] [id number] [facility] Creatinine and Glomerular filtration rate.predicted panel (S/P/Bld) 16 mL/min/1.73m??? Low >=60 [facility] Comment on above: Order Comment: Alise montejo Type: BLOOD SPECIMENOrdering Facility: [facility] Address: [address] [place] [address] Result Comment: Anupama mated Glomerular Filtration Rate (eGFR) is calculated using the 2020 CKD-EPI creatinine equation. This equation utilizes serum creatinine, sex, and age as parameters. The creatinine assay has traceable calibration to isotope dilution-mass spectrometry. Refer to KDIGO guidelines for clinical interpretation. In patients with unstable renal function, e.g. those with acute kidney injury, the eGFR may not accurately reflect actual GFR. Performed By: #### 2 4323-8, 2777- ####VALLECILLO LABORATORYCLIA [id number] [place] [id number] [place] Glucose [Mass/Vol] 161 mg/dL High 74-99 [facility] Comment on above: Order Comment: Alishaosiris montejo Type: BLOOD SPECIMENOrdering Facility: [facility] Address: [address] [place] [address] Result Comment: The [place] Diabetes [employer] (ADA) provides guidance for cutoff values for fasting glucose and random glucose. The ADA defines fasting as no caloric intake for at least 8 hours. Fasting plasma glucose results between 100 to 125 mg/dL indicate increased risk for diabetes (prediabetes).Fasting plasma glucose results greater than or equal to 126 mg/dL meet the criteria for diagnosis of diabetes. In the absence of unequivocal hyperglycemia, results should be confirmed by repeat testing. In a patient with classic symptoms of hyperglycemia or hyperglycemic crisis, random plasma glucose results greater than or equal to 200 mg/dL meet the criteria for diagnosis of diabetes.Reference: Standards of Medical Care in Diabetes 2016, [place] [employer]. Diabetes Care. 2016.39(Suppl 1). Performed By: #### 2 4323-8, 2776- ####VALLECILLO LABORATORYCLIA [id number] [place] [address] [place] Potassium [Moles/Vol] 4.2 mmol/L Normal 3.7-5.1 [facility] Comment on above: Order Comment: Alise montejo Type: BLOOD SPECIMENOrdering Facility: [facility] Address: [address] [place] [address] Performed By: #### 2 4323-8, 27702-03 ####VALLECILLO LABORATORYCLIA [id number] [place] [address] [place] Protein [Mass/Vol] 5.9 g/dL Low 6.3-8.0 [facility] Comment on above: Order Comment: Alise montejo Type: BLOOD SPECIMENOrdering Facility: [facility] Address: [address] [place] [address] Performed By: #### 2 4323-8, 2776-08 ####VALLECILLO LABORATORYCLIA [id number] [place] [address] [place] Sodium [Moles/Vol] 135 mmol/L Low 136-144 [facility] Comment on above: Order Comment: Alise montejo Type: BLOOD SPECIMENOrdering Facility: [facility] Address: [address] [place] [address] Performed By: #### 2 4323-8, 277- ####VALLECILLO LABORATORYCLIA [id number] [place] [address] [place] Urea nitrogen [Mass/Vol] 30 mg/dL High 9-24 [facility] Comment on above: Order Comment: Alise montejo Type: BLOOD SPECIMENOrdering Facility: [facility] Address: [facility] [place] [id number] Performed By: #### 2 4323-8, 2777-1 ####VALLECILLO LABORATORYCLIA [id number] [place] [address] [place] NUTRITIONon 10-08-2024 NUTRITION Normal [facility] PT EDon 10-08-2024 PT ED Normal [facility] Phosphate SerPl-mCncon 10-08 Phosphate [Mass/Vol] 4.3 mg/dL Normal 2.7-4.8 [facility] Comment on above: Order Comment: Speci men Type: BLOOD SPECIMENOrdering Facility: [facility] Address: [address] [place], [place] [address] [address] Performed By: #### 2 4323-8, 2777-1 ####VALLECILLO LABORATORYCLIA [id number] [address] [place] CASE MGT INIT ASSon 2024 [facility] CBC panel Auto (Bld)on 10-07 Erythrocyte distribution width (RBC) [Ratio] 12.7 % Normal 11.5-15.0 [facility] Comment on above: Order Comment: Speci men Type: BLOOD SPECIMENOrdering Facility: [facility] Address: [facility] [place] [address] Performed By: #### 5 8410-2 ####VALLECILLO LABORATORYCLIA [id number] [address] [place] Hematocrit (Bld) [Volume fraction] 32.4 % Low 39.0-51.0 [facility] Comment on above: Order Comment: Speci men Type: BLOOD SPECIMENOrdering Facility: [facility] Address: [address] [place] [address] [place] [id number] Performed By: #### 5 8410-2 ####VALLECILLO LABORATORYCLIA [id number] [place] [address] [place] Hemoglobin (Bld) [Mass/Vol] 10.9 g/dL Low 13.0-17.0 [facility] Comment on above: Order Comment: Speci men Type: BLOOD SPECIMENOrdering Facility: [facility] Address: [address] [place] [address] Performed By: #### 5 8410-2 ####VALLECILLO LABORATORYCLIA [id number] [address] [place] MCH (RBC) [Entitic mass] 31.9 pg Normal 26.0-34.0 [facility] Comment on above: Order Comment: Speci men Type: BLOOD SPECIMENOrdering Facility: [facility] Address: [address] [place] [address] Performed By: #### 5 8410-2 ####VALLECILLO LABORATORYCLIA [id number] [address] [place] MCHC (RBC) [Mass/Vol] 33.6 g/dL Normal 30.5-36.0 [facility] Comment on above: Order Comment: Speci men Type: BLOOD SPECIMENOrdering Facility: [facility] Address: [address] [place] [address] Performed By: #### 5 8410-2 ####VALLECILLO LABORATORYCLIA [id number] [address] MCV (RBC) [Entitic vol] 94.7 fL Normal 80.0-100.0 [facility] Comment on above: Order Comment: Speci men Type: BLOOD SPECIMENOrdering Facility: [facility] Address: [address] [place] [address] Performed By: #### 5 8410-2 ####VALLECILLO LABORATORYCLIA [id number] [address] [place] Nucleated RBC (Bld) [#/Vol] 10*3/uL Normal <0.01 [facility] Comment on above: Order Comment: Speci men Type: BLOOD SPECIMENOrdering Facility: [facility] Address: [address] [place] [address] Performed By: #### 5 8410-2 ####VALLECILLO LABORATORYCLIA [id number] [address] [place] Platelet mean volume (Bld) [Entitic vol] 10.4 fL Normal 9.0-12.7 [facility] Comment on above: Order Comment: Speci men Type: BLOOD SPECIMENOrdering Facility: [facility] Address: [address] [place] [address] Performed By: #### 5 8410-2 ####VALLECILLO LABORATORYCLIA [id number] [address] Platelets (Bld) [#/Vol] 183 10*3/uL Normal 150-400 [facility] Comment on above: Order Comment: Speci men Type: BLOOD SPECIMENOrdering Facility: [facility] Address: [address] [place] [address] Performed By: #### 5 8410-2 ####VALLECILLO LABORATORYCLIA [id number] [place] [address] [place] RBC (Bld) [#/Vol] 3.42 10*6/uL Low 4.20-6.00 [facility] Comment on above: Order Comment: Speci men Type: BLOOD SPECIMENOrdering Facility: [facility] Address: [address] [place] [address] Performed By: #### 5 8410-2 ####VALLECILLO LABORATORYCLIA [id number] [address] [place] WBC (Bld) [#/Vol] 7.04 10*3/uL Normal 3.70-11.00 [facility] Comment on above: Order Comment: Speci men Type: BLOOD SPECIMENOrdering Facility: [facility] Address: [address] [place] [address] Performed By: #### 5 8410-2 ####VALLECILLO LABORATORYCLIA [id number] [address] [place] CONSULTon 10-07-2024 CONSULT Normal [facility] CONSULT Normal [facility] Comprehensive metabolic 2000 panelon 10-07-2024 Albumin [Mass/Vol] 3.5 g/dL Low 3.9-4.9 [facility] Comment on above: Order Comment: Speci men Type: BLOOD SPECIMENOrdering Facility: [facility] Address: [address] [place] [address] Performed By: #### 2 4323-8 ####VALLECILLO LABORATORYCLIA [id number] [place] [address] [place] ALP [Catalytic activity/Vol] 61 U/L Normal 38-113 [facility] Comment on above: Order Comment: Speci men Type: BLOOD SPECIMENOrdering Facility: [facility] Address: [address] [place] [address] Performed By: #### 2 4323-8 ####VALLECILLO LABORATORYCLIA [id number] [place] [address] [place] ALT [Catalytic activity/Vol] 6 U/L Low 10-54 [facility] Comment on above: Order Comment: Speci men Type: BLOOD SPECIMENOrdering Facility: [facility] Address: [address] [place] [address] Performed By: #### 2 4323-8 ####VALLECILLO LABORATORYCLIA [id number] [place] [address] [place] Anion gap [Moles/Vol] 14 mmol/L Normal 8-15 [facility] Comment on above: Order Comment: Speci men Type: BLOOD SPECIMENOrdering Facility: [facility] Address: [address] [place] [address] Performed By: #### 2 4323-8 ####VALLECILLO LABORATORYCLIA [id number] [address] [place] AST [Catalytic activity/Vol] 11 U/L Low 14-40 [facility] Comment on above: Order Comment: Speci men Type: BLOOD SPECIMENOrdering Facility: [facility] Address: [address] [place] [address] Performed By: #### 2 4323-8 ####VALLECILLO LABORATORYCLIA [id number] [place] [address] [place] Bilirubin [Mass/Vol] 0.4 mg/dL Normal 0.2-1.3 [facility] Comment on above: Order Comment: Speci men Type: BLOOD SPECIMENOrdering Facility: [facility] Address: [address] [place] [address] Performed By: #### 2 4323-8 ####VALLECILLO LABORATORYCLIA [id number] [place] [address] [place] Calcium [Mass/Vol] 9.4 mg/dL Normal 8.5-10.2 [facility] Comment on above: Order Comment: Speci men Type: BLOOD SPECIMENOrdering Facility: [facility] Address: [address] [place] [address] Performed By: #### 2 4323-8 ####VALLECILLO LABORATORYCLIA [id number] [place] [id number] [place] Chloride [Moles/Vol] 100 mmol/L Normal 98-107 [facility] Comment on above: Order Comment: Speci men Type: BLOOD SPECIMENOrdering Facility: [facility] Address: [address] [place] [address] Performed By: #### 2 4323-8 ####VALLECILLO LABORATORYCLIA [id number] [place] [address] [place] CO2 [Moles/Vol] 24 mmol/L Normal 22-30 [facility] Comment on above: Order Comment: Speci men Type: BLOOD SPECIMENOrdering Facility: [facility] Address: [address] [place] [address] Performed By: #### 2 4323-8 ####VALLECILLO LABORATORYCLIA [id number] [place] [address] [place] Creatinine [Mass/Vol] 5.59 mg/dL High 0.73-1.22 [facility] Comment on above: Order Comment: Speci men Type: BLOOD SPECIMENOrdering Facility: [facility] Address: [address] [place] [address] Performed By: #### 2 4323-8 ####VALLECILLO LABORATORYCLIA [id number] [place] [address] [place] Creatinine and Glomerular filtration rate.predicted panel (S/P/Bld) 10 mL/min/1.73m??? Low >=60 [facility] Comment on above: Order Comment: Speci men Type: BLOOD SPECIMENOrdering Facility: [facility] Address: [address] [place] [address] Result Comment: Anupama mated Glomerular Filtration Rate (eGFR) is calculated using the 2020 CKD-EPI creatinine equation. This equation utilizes serum creatinine, sex, and age as parameters. The creatinine assay has traceable calibration to isotope dilution-mass spectrometry. Refer to KDIGO guidelines for clinical interpretation. In patients with unstable renal function, e.g. those with acute kidney injury, the eGFR may not accurately reflect actual GFR. Performed By: #### 2 4323-8 ####VALLECILLO LABORATORYCLIA [id number] [place] [address] [place] Glucose [Mass/Vol] 100 mg/dL High 74-99 [facility] Comment on above: Order Comment: Alise montejo Type: BLOOD SPECIMENOrdering Facility: [facility] Address: [address] [place], [place] [address] Result Comment: The [place] Diabetes Association (ADA) provides guidance for cutoff values for fasting glucose and random glucose. The ADA defines fasting as no caloric intake for at least 8 hours. Fasting plasma glucose results between 100 to 125 mg/dL indicate increased risk for diabetes (prediabetes).Fasting plasma glucose results greater than or equal to 126 mg/dL meet the criteria for diagnosis of diabetes. In the absence of unequivocal hyperglycemia, results should be confirmed by repeat testing. In a patient with classic symptoms of hyperglycemia or hyperglycemic crisis, random plasma glucose results greater than or equal to 200 mg/dL meet the criteria for diagnosis of diabetes.Reference: Standards of Medical Care in Diabetes 2016, [place] [employer]. Diabetes Care. 2016.39(Suppl 1). Performed By: #### 2 4323-8 ####ROYAL OAK LABORATORYCLIA [id number] [place] [address] [place] Potassium [Moles/Vol] 4.6 mmol/L Normal 3.7-5.1 [facility] Comment on above: Order Comment: Alise montejo Type: BLOOD SPECIMENOrdering Facility: [facility] Address: [address] [place] [address] Performed By: #### 2 4323-8 ####ROYAL OAK LABORATORYCLIA [id number] [place] [address] [place] Protein [Mass/Vol] 6.1 g/dL Low 6.3-8.0 [facility] Comment on above: Order Comment: Alise montejo Type: BLOOD SPECIMENOrdering Facility: [facility] Address: [address] [place] [id number] Performed By: #### 2 4323-8 ####VALLECILLO LABORATORYCLIA [id number] [address] STATES [facility] Sodium [Moles/Vol] 138 mmol/L Normal 136-144 [facility] Comment on above: Order Comment: Speci men Type: BLOOD SPECIMENOrdering Facility: [facility] Address: [address] [place] [address] Performed By: #### 2 4323-8 ####VALLECILLO LABORATORYCLIA [id number] [address] [place] Urea nitrogen [Mass/Vol] 52 mg/dL High 9-24 [facility] Comment on above: Order Comment: Speci men Type: BLOOD SPECIMENOrdering Facility: [facility] Address: [address] [place] [address] Performed By: #### 2 4323-8 ####ROYAL OAK LABORATORYCLIA [id number] [address] Magnesium SerPl-mCncon 10-07 Magnesium [Mass/Vol] 2.0 mg/dL Normal 1.7-2.3 [facility] Comment on above: Order Comment: Speci men Type: BLOOD SPECIMENOrdering Facility: [facility] Address: [address] [place] [address] Performed By: #### 1 9123-9 ####ROYAL OAK LABORATORYCLIA [id number] [address] OF [facility] NURSING PROGon 10-07-2024 NURSING PROG Normal [facility] ALLIED HEALTHon 10-06-2024 ALLIED HEALTH Normal [facility] CBC W Auto Differential pane l (Bld)on 10-06-2024 Basophils (Bld) [#/Vol] 0.06 10*3/uL Normal <0.11 [facility] Comment on above: Order Comment: Speci men Type: BLOOD SPECIMENOrdering Facility: [facility] Address: [address] [place] [address] Performed By: #### 5 7021-8 ####ROYAL OAK LABORATORYCLIA [id number] [place] [address] [place] Basophils/100 WBC (Bld) 0.8 % Normal [facility] Comment on above: Order Comment: Speci men Type: BLOOD SPECIMENOrdering Facility: [facility] Address: [address] [place] [address] Performed By: #### 5 7021-8 ####VALLECILLO LABORATORYCLIA [id number] [address] [place] Differential cell count method Nom (Bld) Auto Normal [facility] Comment on above: Order Comment: Speci men Type: BLOOD SPECIMENOrdering Facility: [facility] Address: [address] [place] [address] Performed By: #### 5 7021-8 ####VALLECILLO LABORATORYCLIA [id number] [place] [address] [place] Eosinophils (Bld) [#/Vol] 0.30 10*3/uL Normal <0.46 [facility] Comment on above: Order Comment: Speci men Type: BLOOD SPECIMENOrdering Facility: [facility] Address: [address] [place] [address] Performed By: #### 5 7021-8 ####VALLECILLO LABORATORYCLIA [id number] [address] [place] Eosinophils/100 WBC (Bld) 3.9 % Normal [facility] Comment on above: Order Comment: Speci men Type: BLOOD SPECIMENOrdering Facility: [facility] Address: [address] [place] [address] Performed By: #### 5 7021-8 ####VALLECILLO LABORATORYCLIA [id number] [place] [address] [place] Erythrocyte distribution width (RBC) [Ratio] 12.9 % Normal 11.5-15.0 [facility] Comment on above: Order Comment: Speci men Type: BLOOD SPECIMENOrdering Facility: [facility] Address: [address] [place] [address] Performed By: #### 5 7021-8 ####VALLECILLO LABORATORYCLIA [id number] [place] [address] [place] Hematocrit (Bld) [Volume fraction] 31.6 % Low 39.0-51.0 [facility] Comment on above: Order Comment: Speci men Type: BLOOD SPECIMENOrdering Facility: [facility] Address: [address] [place] [address] Performed By: #### 5 7021-8 ####VALLECILLO LABORATORYCLIA [id number] [place] [address] [place] Hemoglobin (Bld) [Mass/Vol] 10.6 g/dL Low 13.0-17.0 [facility] Comment on above: Order Comment: Speci men Type: BLOOD SPECIMENOrdering Facility: [facility] Address: [address] [place] [address] Performed By: #### 5 7021-8 ####VALLECILLO LABORATORYCLIA [id number] [address] [place] Immature granulocytes (Bld) [#/Vol] 10*3/uL Normal <0.10 [facility] Comment on above: Order Comment: Speci men Type: BLOOD SPECIMENOrdering Facility: [facility] Address: [address] [place] [address] Performed By: #### 5 7021-8 ####VALLECILLO LABORATORYCLIA [id number] [address] Immature granulocytes/100 WBC (Bld) 0.3 % Normal [facility] Comment on above: Order Comment: Speci men Type: BLOOD SPECIMENOrdering Facility: [facility] Address: [address] [place] [address] Performed By: #### 5 7021-8 ####VALLECILLO LABORATORYCLIA [id number] [place] [address] [place] Lymphocytes (Bld) [#/Vol] 0.99 10*3/uL Low 1.00-4.00 [facility] Comment on above: Order Comment: Speci men Type: BLOOD SPECIMENOrdering Facility: [facility] Address: [address] [place] [address] Performed By: #### 5 7021-8 ####VALLECILLO LABORATORYCLIA [id number] [place] [address] [place] Lymphocytes/100 WBC (Bld) 12.9 % Normal [facility] Comment on above: Order Comment: Speci men Type: BLOOD SPECIMENOrdering Facility: [facility] Address: [address] [place] [address] Performed By: #### 5 7021-8 ####VALLE[facility]O LABORATORYCLIA [id number] [place] [address] [place] MCH (RBC) [Entitic mass] 32.2 pg Normal 26.0-34.0 [facility] Comment on above: Order Comment: Speci men Type: BLOOD SPECIMENOrdering Facility: [facility] Address: [address] [place] [address] Performed By: #### 5 7021-8 ####VALLECILLO LABORATORYCLIA [id number] [place] [address] [place] MCHC (RBC) [Mass/Vol] 33.5 g/dL Normal 30.5-36.0 [facility] Comment on above: Order Comment: Speci men Type: BLOOD SPECIMENOrdering Facility: [facility] Address: [address] [place] [address] Performed By: #### 5 7021-8 ####VALLECILLO LABORATORYCLIA [id number] [address] [place] MCV (RBC) [Entitic vol] 96.0 fL Normal 80.0-100.0 [facility] Comment on above: Order Comment: Speci men Type: BLOOD SPECIMENOrdering Facility: [facility] Address: [address] [place] [address] Performed By: #### 5 7021-8 ####VALLECILLO LABORATORYCLIA [id number] [address] [place] Monocytes (Bld) [#/Vol] 0.83 10*3/uL Normal <0.87 [facility] Comment on above: Order Comment: Speci men Type: BLOOD SPECIMENOrdering Facility: [facility] Address: [address] [place] [address] Performed By: #### 5 7021-8 ####VALLECILLO LABORATORYCLIA [id number] [place] [address] [place] Monocytes/100 WBC (Bld) 10.8 % Normal [facility] Comment on above: Order Comment: Speci men Type: BLOOD SPECIMENOrdering Facility: [facility] Address: [address] [place] [address] Performed By: #### 5 7021-8 ####VALLECILLO LABORATORYCLIA [id number] [place] [address] [place] Neutrophils (Bld) [#/Vol] 5.48 10*3/uL Normal 1.45-7.50 [facility] Comment on above: Order Comment: Speci men Type: BLOOD SPECIMENOrdering Facility: [facility] Address: [address] [place] [address] Performed By: #### 5 7021-8 ####VALLECILLO LABORATORYCLIA [id number] [address] [place] Neutrophils/100 WBC (Bld) 71.3 % Normal [facility] Comment on above: Order Comment: Speci men Type: BLOOD SPECIMENOrdering Facility: [facility] Address: [address] [place] [address] Performed By: #### 5 7021-8 ####VALLECILLO LABORATORYCLIA [id number] [place] [address] [place] Nucleated RBC (Bld) [#/Vol] 10*3/uL Normal <0.01 [facility] Comment on above: Order Comment: Speci men Type: BLOOD SPECIMENOrdering Facility: [facility] Address: [address] [place] [address] Performed By: #### 5 7021-8 ####VALLECILLO LABORATORYCLIA [id number] [place] [address] [place] Nucleated RBC/100 WBC (Bld) [Ratio] 0.0 /100 WBC Normal [facility] Comment on above: Order Comment: Speci men Type: BLOOD SPECIMENOrdering Facility: [facility] Address: [address] [place] [address] Performed By: #### 5 7021-8 ####VALLECILLO LABORATORYCLIA [id number] [place] [address] [place] Platelet mean volume (Bld) [Entitic vol] 10.3 fL Normal 9.0-12.7 [facility] Comment on above: Order Comment: Speci men Type: BLOOD SPECIMENOrdering Facility: [facility] Address: [address] [facility] [place] [address] Performed By: #### 5 7021-8 ####VALLECILLO LABORATORYCLIA [id number] [place] [address] [place] Platelets (Bld) [#/Vol] 166 10*3/uL Normal 150-400 [facility] Comment on above: Order Comment: Speci men Type: BLOOD SPECIMENOrdering Facility: [facility] Address: [facility] [place] [address] Performed By: #### 5 7021-8 ####VALLECILLO LABORATORYCLIA [id number] [place] [address] [place] RBC (Bld) [#/Vol] 3.29 10*6/uL Low 4.20-6.00 [facility] Comment on above: Order Comment: Speci men Type: BLOOD SPECIMENOrdering Facility: [facility] Address: [address] [place] [address] Performed By: #### 5 7021-8 ####VALLECILLO LABORATORYCLIA [id number] [place] [address] [place] WBC (Bld) [#/Vol] 7.68 10*3/uL Normal 3.70-11.00 [facility] Comment on above: Order Comment: Speci men Type: BLOOD SPECIMENOrdering Facility: [facility] Address: [address] [place] [address] Performed By: #### 5 7021-8 ####VALLECILLO LABORATORYCLIA [id number] [place] [id number] [place] Comprehensive metabolic 2000 panelon 10-06-2024 Albumin [Mass/Vol] 3.8 g/dL Low 3.9-4.9 [facility] Comment on above: Order Comment: Speci men Type: BLOOD SPECIMENOrdering Facility: [facility] Address: [address] [place] [address] Performed By: #### 3 3959-8, 46355-2, 58365-1, 05618-8 ####VALLECILLO LABORATORYCLIA [id number] [place] [address] [place] ALP [Catalytic activity/Vol] 65 U/L Normal 38-113 [facility] Comment on above: Order Comment: Speci men Type: BLOOD SPECIMENOrdering Facility: [facility] Address: [address] [place] [address] Performed By: #### 3 3959-8, 96825-6, 43872-9, 85021-9 ####VALLECILLO LABORATORYCLIA [id number] [address] ALT [Catalytic activity/Vol] U/L Low 10-54 [facility] Comment on above: Order Comment: Speci men Type: BLOOD SPECIMENOrdering Facility: [facility] Address: [address] [place] [address] Performed By: #### 3 3959-8, 88220-2, 02469-1, 80977-3 ####VALLECILLO LABORATORYCLIA [id number] [address] STATES [facility] Anion gap [Moles/Vol] 11 mmol/L Normal 8-15 [facility] Comment on above: Order Comment: Speci men Type: BLOOD SPECIMENOrdering Facility: [facility] Address: [facility] [place] [address] Performed By: #### 3 3959-8, 54304-4, 41883-3, 48841-5 ####VALLECILLO LABORATORYCLIA [id number] [place] [id number] [place] AST [Catalytic activity/Vol] 9 U/L Low 14-40 [facility] Comment on above: Order Comment: Speci men Type: BLOOD SPECIMENOrdering Facility: [facility] Address: [facility] [place] [address] Performed By: #### 3 3959-8, 02765-9, 22256-8, 60791-6 ####VALLECILLO LABORATORYCLIA [id number] [place] [address] [place] Bilirubin [Mass/Vol] 0.5 mg/dL Normal 0.2-1.3 [facility] Comment on above: Order Comment: Speci men Type: BLOOD SPECIMENOrdering Facility: [facility] Address: [address] [place] [address] Performed By: #### 3 3959-8, 26244-7, 48687-6, 11979-7 ####VALLECILLO LABORATORYCLIA [id number] [place] [address] [place] Calcium [Mass/Vol] 9.4 mg/dL Normal 8.5-10.2 [facility] Comment on above: Order Comment: Speci men Type: BLOOD SPECIMENOrdering Facility: [facility] Address: [address] [place] [address] Performed By: #### 3 3959-8, 91695-2, 77491-9, 31068-0 ####VALLECILLO LABORATORYCLIA [id number] [place] [address] [place] Chloride [Moles/Vol] 98 mmol/L Normal 98-107 [facility] Comment on above: Order Comment: Speci men Type: BLOOD SPECIMENOrdering Facility: [facility] Address: [address] [place] [address] Performed By: #### 3 3959-8, 43902-8, 76977-6, 55283-5 ####VALLECILLO LABORATORYCLIA [id number] [place] [id number] [place] CO2 [Moles/Vol] 26 mmol/L Normal 22-30 [facility] Comment on above: Order Comment: Speci men Type: BLOOD SPECIMENOrdering Facility: [facility] Address: [address] [place] [address] Performed By: #### 3 3959-8, 94366-6, 52997-1, 38039-6 ####VALLECILLO LABORATORYCLIA [id number] [place] [id number] [place] Creatinine [Mass/Vol] 5.24 mg/dL High 0.73-1.22 [facility] Comment on above: Order Comment: Speci men Type: BLOOD SPECIMENOrdering Facility: [facility] Address: [address] [place] [address] Performed By: #### 3 3959-8, 80044-0, 70021-8, 39584-6 ####ROYAL OAK LABORATORYCLIA [id number] [place] [id number] [place] Creatinine and Glomerular filtration rate.predicted panel (S/P/Bld) 11 mL/min/1.73m??? Low >=60 [facility] Comment on above: Order Comment: Alise montejo Type: BLOOD SPECIMENOrdering Facility: [facility] Address: [address] [place] [address] Result Comment: Anupama mated Glomerular Filtration Rate (eGFR) is calculated using the 2020 CKD-EPI creatinine equation. This equation utilizes serum creatinine, sex, and age as parameters. The creatinine assay has traceable calibration to isotope dilution-mass spectrometry. Refer to KDIGO guidelines for clinical interpretation. In patients with unstable renal function, e.g. those with acute kidney injury, the eGFR may not accurately reflect actual GFR. Performed By: #### 3 3959-8, 79614-0, 08964-3, 21158-8 ####RO[facility] OAK LABORATORYCLIA [id number] [place] [id number] [place] Glucose [Mass/Vol] 135 mg/dL High 74-99 [facility] Comment on above: Order Comment: Alise montejo Type: BLOOD SPECIMENOrdering Facility: [facility] Address: [address] [place] [address] Result Comment: The [place] Diabetes [employer] (ADA) provides guidance for cutoff values for fasting glucose and random glucose. The ADA defines fasting as no caloric intake for at least 8 hours. Fasting plasma glucose results between 100 to 125 mg/dL indicate increased risk for diabetes (prediabetes).Fasting plasma glucose results greater than or equal to 126 mg/dL meet the criteria for diagnosis of diabetes. In the absence of unequivocal hyperglycemia, results should be confirmed by repeat testing. In a patient with classic symptoms of hyperglycemia or hyperglycemic crisis, random plasma glucose results greater than or equal to 200 mg/dL meet the criteria for diagnosis of diabetes.Reference: Standards of Medical Care in Diabetes 2016, [place] [employer]. Diabetes Care. 2016.39(Suppl 1). Performed By: #### 3 3959-8, 45980-7, 07462-9, 06172-6 ####AVLLECILLO LABORATORYCLIA [id number] [place] [address] [place] Potassium [Moles/Vol] 4.6 mmol/L Normal 3.7-5.1 [facility] Comment on above: Order Comment: Speci men Type: BLOOD SPECIMENOrdering Facility: [facility] Address: [address] [place] [address] Performed By: #### 3 3959-8, 79219-2, 05611-4, 91316-9 ####VALLECILLO LABORATORYCLIA [id number] [place] [address] [place] Protein [Mass/Vol] 6.3 g/dL Normal 6.3-8.0 [facility] Comment on above: Order Comment: Speci men Type: BLOOD SPECIMENOrdering Facility: [facility] Address: [address] [place] [address] Performed By: #### 3 3959-8, 82633-3, 87536-5, 86975-6 ####VALLECILLO LABORATORYCLIA [id number] [place] [address] [place] Sodium [Moles/Vol] 135 mmol/L Low 136-144 [facility] Comment on above: Order Comment: Speci men Type: BLOOD SPECIMENOrdering Facility: [facility] Address: [address] [place] [address] Performed By: #### 3 3959-8, 45344-8, 00063-0, 21827-9 ####VALLECILLO LABORATORYCLIA [id number] [place] [id number] [place] Urea nitrogen [Mass/Vol] 47 mg/dL High 9-24 [facility] Comment on above: Order Comment: Speci men Type: BLOOD SPECIMENOrdering Facility: [facility] Address: [address] [place] [address] Performed By: #### 3 3959-8, 15279-7, 91998-0, 50519-3 ####VALLECILLO LABORATORYCLIA [id number] [place] [id number] [place] ECG COMPLETEon 10-06-2024 ECG COMPLETE Normal [facility] ED NOTEon 10-06-2024 ED NOTE Normal [facility] ED NOTE HNO ID: [id number] Author: LEANA MACEDO, LINA Service: ? Author Type: Registered Nurse Type: ED Notes Filed: 10/06/2024 09:56 Note Text: Bed: ED-15 Expected date: Expected time: Means of arrival: Andree Tw Fire/EMS Comments: Andree Normal [facility] ED PROV NOTEon 10-06-2024 ED PROV NOTE Normal [facility] HISTORY PHYSICALon HISTORY PHYSICAL Normal [facility] Legionella Ag Ur Qlon 2024 Legionella sp Ag Ql (U) Negative Normal Negative [facility] Comment on above: Order Comment: Speci men Type: URINE SPECIMENOrdering Facility: [facility] Address: [address] [place] [address] Result Comment: Legi onella urinary antigen test is used as an aid in diagnosis of infection with Legionella pneumophila serogroup 1. It may be detected from a few days to several months after onset of signs and symptoms despite antibiotic therapy or disease resolution. A negative result cannot exclude Legionellosis. Clinical correlation is required. Performed By: #### 3 2781-7 ####[facility] LABCLIA [id number] [place] [address] [place] Magnesium SerPl-ncon 10-06 Magnesium [Mass/Vol] 2.3 mg/dL Normal 1.7-2.3 [facility] Comment on above: Order Comment: Speci men Type: BLOOD SPECIMENOrdering Facility: [facility] Address: [address] [place] [address] Performed By: #### 3 3959-8, 85075-0, 46953-0, 24896-8 ####[facility] LABORATORYCLIA [id number] [place] [id number] [place] NT-proBNP SerPl-ncon 10-06 Natriuretic peptide.B prohormone N-Terminal [Mass/Vol] 8525 pg/mL High <450 [facility] Comment on above: Order Comment: Speci men Type: BLOOD SPECIMENOrdering Facility: [facility] Address: [address] [place] [address] Performed By: #### 3 3959-8, 92627-2, 06066-2, 27813-0 ####VALLECILLO LABORATORYCLIA [id number] [address] [place] Procalcitonin SerPl-mCncon 0 10-06-2024 Procalcitonin [Mass/Vol] 0.11 ng/mL High <0.09 [facility] Comment on above: Order Comment: Speci men Type: BLOOD SPECIMENOrdering Facility: [facility] Address: [address] [place] [address] Result Comment: For a guided interpretation of test results, please visit the Change in Procalcitonin Calculator, [email or web address]. Performed By: #### 3 3959-8, 00979-8, 95412-4, 46904-2 ####VALLECILLO LABORATORYCLIA [id number] [place] [address] [place] SEPSIS LACTATE W/ REFLEX (IN ITIAL)on 10-06-2024 Lactate [Moles/Vol] 1.1 mmol/L Normal 0.5-2.0 [facility] Comment on above: Order Comment: Speci men Type: BLOOD SPECIMENOrdering Facility: [facility] Address: [address] [place] [address] Performed By: #### S LACTR ####[facility] LABORATORYCLIA [id number] [place] [address] [place] STAPHYLOCOCCUS AUREUS AND MR SA SCREEN, PCR, NASALon 10-06-2024 S. aureus and MRSA panel JESUS+probe (Nose) Not detected Normal Not Detected [facility] Comment on above: Order Comment: Speci men Type: SWABOrdering Facility: [facility] Address: [address] [place] [address] Performed By: #### S APCR ####[facility] LABCLIA [id number] [place] [address] [place] STREPTOCOCCUS PNEUMONIAE ANT IGEN URINEon 10-06-2024 STREPTOCOCCUS PNEUMONIAE ANTIGEN URINE Normal [facility] Comment on above: Performed By: #### S PNAG ####[facility] LABCLIA [id number] [place] [address] [place] Urinalysis complete panel (U )on 10-06-2024 Bilirubin Ql (U) Negative Normal Negative [facility] Comment on above: Order Comment: Speci men Type: URINE SPECIMENOrdering Facility: [facility] Address: [address] [place] [address] Performed By: #### 2 4356-8 ####VALLECILLO LABORATORYCLIA [id number] [address] [place] Clarity (Unsp spec) Clear Normal Clear [facility] Comment on above: Order Comment: Speci men Type: URINE SPECIMENOrdering Facility: [facility] Address: [address] [place] [address] Performed By: #### 2 4356-8 ####VALLECILLO LABORATORYCLIA [id number] [place] [address] [place] Color (U) Yellow Normal Yellow [facility] Comment on above: Order Comment: Speci men Type: URINE SPECIMENOrdering Facility: [facility] Address: [address] [place] [address] Result Comment: Urin e received in non-preservative tube. Interpret results with caution. To ensure optimal and accurate results, transfer urine to the BD Vacutainer Plus urine preservative tube. Performed By: #### 2 4356-8 ####VALLECILLO LABORATORYCLIA [id number] [place] [address] [place] Glucose Test strip (U) [Mass/Vol] 1+ Abnormal Negative [facility] Comment on above: Order Comment: Speci men Type: URINE SPECIMENOrdering Facility: [facility] Address: [address] [place] [address] Performed By: #### 2 4356-8 ####VALLECILLO LABORATORYCLIA [id number] [place] [address] [place] Hemoglobin Ql (U) Negative Normal Negative [facility] Comment on above: Order Comment: Speci men Type: URINE SPECIMENOrdering Facility: [facility] Address: [address] [place] [address] Performed By: #### 2 4356-8 ####VALLECILLO LABORATORYCLIA [id number] [place] [address] [place] Ketones Ql (U) Negative Normal Negative [facility] Comment on above: Order Comment: Speci men Type: URINE SPECIMENOrdering Facility: [facility] Address: [address] [place] [address] Performed By: #### 2 4356-8 ####VALLECILLO LABORATORYCLIA [id number] [place] [address] [place] Leukocyte esterase Test strip Ql (U) Negative Normal Negative [facility] Comment on above: Order Comment: Speci men Type: URINE SPECIMENOrdering Facility: [facility] Address: [address] [place] [address] Performed By: #### 2 4356-8 ####VALLECILLO LABORATORYCLIA [id number] [place] [address] [place] Nitrite Ql (U) Negative Normal Negative [facility] Comment on above: Order Comment: Speci men Type: URINE SPECIMENOrdering Facility: [facility] Address: [address] [place] [address] Performed By: #### 2 4356-8 ####VALLECILLO LABORATORYCLIA [id number] [place] [address] [place] pH (U) 7.0 [pH] Normal 5.0-8.0 [facility] Comment on above: Order Comment: Speci men Type: URINE SPECIMENOrdering Facility: [facility] Address: [address] [place] [address] Performed By: #### 2 4356-8 ####VALLECILLO LABORATORYCLIA [id number] [place] [address] [place] Protein (U) [Mass/Vol] 2+ Abnormal Negative [facility] Comment on above: Order Comment: Speci men Type: URINE SPECIMENOrdering Facility: [facility] Address: [address] [place] [address] Performed By: #### 2 4356-8 ####VALLECILLO LABORATORYCLIA [id number] [address] RBC LM.HPF (Urine sed) [#/Area] 0-3 /HPF Normal 0-3 /HPF [facility] Comment on above: Order Comment: Speci men Type: URINE SPECIMENOrdering Facility: [facility] Address: [address] [place] [address] Performed By: #### 2 4356-8 ####VALLECILLO LABORATORYCLIA [id number] [address] Specific gravity (U) [Rel density] 1.015 Normal 1.005-1.03 0 [facility] Comment on above: Order Comment: Speci men Type: URINE SPECIMENOrdering Facility: [facility] Address: [address] [place] [address] Performed By: #### 2 4356-8 ####[facility] LABORATORYCLIA [id number] [address] Urobilinogen Ql (U) 0.2 EU/dL Normal 0.2-1.0 EU/dL [facility] Comment on above: Order Comment: Speci men Type: URINE SPECIMENOrdering Facility: [facility] Address: [address] [place] [address] Performed By: #### 2 4356-8 ####[facility] LABORATORYCLIA [id number] [address] WBC LM.HPF (Urine sed) [#/Area] 0-5 /HPF Normal 0-5 /HPF [facility] Comment on above: Order Comment: Speci men Type: URINE SPECIMENOrdering Facility: [facility] Address: [address] [place] [address] Performed By: #### 2 4356-8 ####VALLECILLO LABORATORYCLIA [id number] [address] XR CHEST 2V FRONTAL/LATon XR CHEST 2V FRONTAL/LAT Normal M [facility] ED NOTEon 10-05-2024 ED NOTE [facility] ED NOTE HNO ID: [id number] Author: ALICIA LONG RN Service: Nursing Author Type: Registered Nurse Type: ED Notes Filed: 10/05/2024 04:08 Note Text: This RN called Ashleigh, daughter. She will pick patient up and return him home. [facility] ED NOTE HNO ID: [id number] Author: ALICIA LONG RN Service: Nursing Author Type: Registered Nurse Type: ED Notes Filed: 10/05/2024 04:08 Note Text: [facility] ED NOTEon 10-04-2024 ED NOTE HNO ID: [id number] Author: JOSE FONTANA RN Service: ? Author Type: Registered Nurse Type: ED Notes Filed: 10/04/2024 23:25 Note Text: No active bleeding at this time [facility] ED PROV NOTEon 10-04-2024 ED PROV NOTE [facility] CASE MANAGEMon 07-09-2024 CASE MANAGEM [facility] CBC panel Auto (Bld)on 07-09 Erythrocyte distribution width (RBC) [Ratio] 16.2 % High 11.5-15.0 [facility] Comment on above: Order Comment: Speci men Type: BLOOD SPECIMENOrdering Facility: [facility] Address: [address] [place] [address] Performed By: #### 5 8410-2 ####VALLECILLO LABORATORYCLIA [id number] [place] [address] [place] Hematocrit (Bld) [Volume fraction] 36.5 % Low 39.0-51.0 [facility] Comment on above: Order Comment: Speci men Type: BLOOD SPECIMENOrdering Facility: [facility] Address: [address] [place] [address] Performed By: #### 5 8410-2 ####[facility] LABORATORYCLIA [id number] [place] [address] [place] Hemoglobin (Bld) [Mass/Vol] 12.2 g/dL Low 13.0-17.0 [facility] Comment on above: Order Comment: Speci men Type: BLOOD SPECIMENOrdering Facility: [facility] Address: [address] [place] [address] Performed By: #### 5 8410-2 ####VALLECILL[facility] LABORATORYCLIA [id number] [address] MCH (RBC) [Entitic mass] 31.0 pg Normal 26.0-34.0 [facility] Comment on above: Order Comment: Speci men Type: BLOOD SPECIMENOrdering Facility: [facility] Address: [address] [place] [address] Performed By: #### 5 8410-2 ####VALLECILL[facility] LABORATORYCLIA [id number] [address] MCHC (RBC) [Mass/Vol] 33.4 g/dL Normal 30.5-36.0 [facility] Comment on above: Order Comment: Speci men Type: BLOOD SPECIMENOrdering Facility: [facility] Address: [address] [place] [address] Performed By: #### 5 8410-2 ####VALLECILLO LABORATORYCLIA [id number] [address] MCV (RBC) [Entitic vol] 92.9 fL Normal 80.0-100.0 [facility] Comment on above: Order Comment: Speci men Type: BLOOD SPECIMENOrdering Facility: [facility] Address: [address] [place] [address] Performed By: #### 5 8410-2 ####VALLE[facility] LABORATORYCLIA [id number] [address] Nucleated RBC (Bld) [#/Vol] 10*3/uL Normal <0.01 [facility] Comment on above: Order Comment: Speci men Type: BLOOD SPECIMENOrdering Facility: [facility] Address: [address] [place] [address] Performed By: #### 5 8410-2 ####VAL[facility] LABORATORYCLIA [id number] [address] Platelet mean volume (Bld) [Entitic vol] 10.3 fL Normal 9.0-12.7 [facility] Comment on above: Order Comment: Speci men Type: BLOOD SPECIMENOrdering Facility: [facility] Address: [address] [place] [address] Performed By: #### 5 8410-2 ####[facility] LABORATORYCLIA [id number] [address] Platelets (Bld) [#/Vol] 120 10*3/uL Low 150-400 [facility] Comment on above: Order Comment: Speci men Type: BLOOD SPECIMENOrdering Facility: [facility] Address: [address] [place] [address] Result Comment: No c lot detected. Performed By: #### 5 8410-2 ####VALLECILLO LABORATORYCLIA [id number] [address] [place] RBC (Bld) [#/Vol] 3.93 10*6/uL Low 4.20-6.00 [facility] Comment on above: Order Comment: Speci men Type: BLOOD SPECIMENOrdering Facility: [facility] Address: [address] [place] [address] Performed By: #### 5 8410-2 ####VALLECILLO LABORATORYCLIA [id number] [address] [place] WBC (Bld) [#/Vol] 5.87 10*3/uL Normal 3.70-11.00 [facility] Comment on above: Order Comment: Speci men Type: BLOOD SPECIMENOrdering Facility: [facility] Address: [address] [place] [address] Performed By: #### 5 8410-2 ####VALLECILLO LABORATORYCLIA [id number] [address] [place] CNDSon 07-09-2024 CNDS Normal [facility] CONSULT PROGon 07-09-2024 CONSULT PROG Normal [facility] Comprehensive metabolic 2000 panelon 07-09-2024 Albumin [Mass/Vol] 3.4 g/dL Low 3.9-4.9 [facility] Comment on above: Order Comment: Speci men Type: BLOOD SPECIMENOrdering Facility: [facility] Address: [address] [place] [address] Performed By: #### 2 4323-8 ####VALLECILLO LABORATORYCLIA [id number] [place] [address] [place] ALP [Catalytic activity/Vol] 80 U/L Normal 38-113 [facility] Comment on above: Order Comment: Speci men Type: BLOOD SPECIMENOrdering Facility: [facility] Address: [address] [place] [address] Performed By: #### 2 4323-8 ####VALLECILLO LABORATORYCLIA [id number] [place] [address] [place] ALT [Catalytic activity/Vol] 7 U/L Low 10-54 [facility] Comment on above: Order Comment: Speci men Type: BLOOD SPECIMENOrdering Facility: [facility] Address: [address] [place] [address] Performed By: #### 2 4323-8 ####VALLECILLO LABORATORYCLIA [id number] [place] [address] [place] Anion gap [Moles/Vol] 12 mmol/L Normal 8-15 [facility] Comment on above: Order Comment: Speci men Type: BLOOD SPECIMENOrdering Facility: [facility] Address: [address] [place] [address] Performed By: #### 2 4323-8 ####VALLECILLO LABORATORYCLIA [id number] [address] [place] AST [Catalytic activity/Vol] 12 U/L Low 14-40 [facility] Comment on above: Order Comment: Speci men Type: BLOOD SPECIMENOrdering Facility: [facility] Address: [address] [place] [address] Performed By: #### 2 4323-8 ####VALLECILLO LABORATORYCLIA [id number] [place] [address] [place] Bilirubin [Mass/Vol] 0.5 mg/dL Normal 0.2-1.3 [facility] Comment on above: Order Comment: Speci men Type: BLOOD SPECIMENOrdering Facility: [facility] Address: [address] [place] [address] Performed By: #### 2 4323-8 ####VALLECILLO LABORATORYCLIA [id number] [place] [address] [place] Calcium [Mass/Vol] 9.0 mg/dL Normal 8.5-10.2 [facility] Comment on above: Order Comment: Speci men Type: BLOOD SPECIMENOrdering Facility: [facility] Address: [address] [place] [address] Performed By: #### 2 4323-8 ####VALLECILLO LABORATORYCLIA [id number] [place] [address] [place] Chloride [Moles/Vol] 99 mmol/L Normal 98-107 [facility] Comment on above: Order Comment: Speci men Type: BLOOD SPECIMENOrdering Facility: [facility] Address: [address] [place] [address] Performed By: #### 2 4323-8 ####VALLECILLO LABORATORYCLIA [id number] [place] [address] [place] CO2 [Moles/Vol] 25 mmol/L Normal 22-30 [facility] Comment on above: Order Comment: Speci men Type: BLOOD SPECIMENOrdering Facility: [facility] Address: [address] [place] [address] Performed By: #### 2 4323-8 ####VALLECILLO LABORATORYCLIA [id number] [place] [address] [place] Creatinine [Mass/Vol] 4.34 mg/dL High 0.73-1.22 [facility] Comment on above: Order Comment: Speci men Type: BLOOD SPECIMENOrdering Facility: [facility] Address: [address] [place] [address] Performed By: #### 2 4323-8 ####VALLECILLO LABORATORYCLIA [id number] [place] [address] [place] Creatinine and Glomerular filtration rate.predicted panel (S/P/Bld) 13 mL/min/1.73m??? Low >=60 [facility] Comment on above: Order Comment: Speci men Type: BLOOD SPECIMENOrdering Facility: [facility] Address: [address] [place] [address] Result Comment: Anupama mated Glomerular Filtration Rate (eGFR) is calculated using the 2020 CKD-EPI creatinine equation. This equation utilizes serum creatinine, sex, and age as parameters. The creatinine assay has traceable calibration to isotope dilution-mass spectrometry. Refer to KDIGO guidelines for clinical interpretation. In patients with unstable renal function, e.g. those with acute kidney injury, the eGFR may not accurately reflect actual GFR. Performed By: #### 2 4323-8 ####[facility] O[facility] LABORATORYCLIA [id number] [place] [address] [place] Glucose [Mass/Vol] 116 mg/dL High 74-99 [facility] Comment on above: Order Comment: Alise montejo Type: BLOOD SPECIMENOrdering Facility: [facility] Address: [address] [place] [address] Result Comment: The [place] Diabetes [employer] (ADA) provides guidance for cutoff values for fasting glucose and random glucose. The ADA defines fasting as no caloric intake for at least 8 hours. Fasting plasma glucose results between 100 to 125 mg/dL indicate increased risk for diabetes (prediabetes).Fasting plasma glucose results greater than or equal to 126 mg/dL meet the criteria for diagnosis of diabetes. In the absence of unequivocal hyperglycemia, results should be confirmed by repeat testing. In a patient with classic symptoms of hyperglycemia or hyperglycemic crisis, random plasma glucose results greater than or equal to 200 mg/dL meet the criteria for diagnosis of diabetes.Reference: Standards of Medical Care in Diabetes 2016, [place] [employer]. Diabetes Care. 2016.39(Suppl 1). Performed By: #### 2 4323-8 ####RO[facility] OAK LABORATORYCLIA [id number] [place] [id number] [place] Potassium [Moles/Vol] 4.5 mmol/L Normal 3.7-5.1 [facility] Comment on above: Order Comment: Alise montejo Type: BLOOD SPECIMENOrdering Facility: [facility] Address: [address] [place] [address] Performed By: #### 2 4323-8 ####[facility] O[facility] LABORATORYCLIA [id number] [place] [id number] [place] Protein [Mass/Vol] 5.9 g/dL Low 6.3-8.0 [facility] Comment on above: Order Comment: Alise montejo Type: BLOOD SPECIMENOrdering Facility: [facility] Address: [address] [place] [address] Performed By: #### 2 4323-8 ####VALLECILLO LABORATORYCLIA [id number] [address] [place] Sodium [Moles/Vol] 136 mmol/L Normal 136-144 [facility] Comment on above: Order Comment: Speci men Type: BLOOD SPECIMENOrdering Facility: [facility] Address: [address] [place] [address] Performed By: #### 2 4323-8 ####VALLECILLO LABORATORYCLIA [id number] [place] [address] [place] Urea nitrogen [Mass/Vol] 38 mg/dL High 9-24 [facility] Comment on above: Order Comment: Speci men Type: BLOOD SPECIMENOrdering Facility: [facility] Address: [address] [place] [address] Performed By: #### 2 4323-8 ####VALLECILLO LABORATORYCLIA [id number] [place] [address] [place] NUTRITIONon 07-09-2024 NUTRITION Normal [facility] CASE MGT INIT ASSESon 2023 CASE MGT INIT [facility] CBC panel Auto (Bld)on 07-08 Erythrocyte distribution width (RBC) [Ratio] 16.8 % High 11.5-15.0 [facility] Comment on above: Order Comment: Speci men Type: BLOOD SPECIMENOrdering Facility: [facility] Address: [address] [place] [address] Performed By: #### 5 8410-2 ####VALLECILLO LABORATORYCLIA [id number] [address] [place] Hematocrit (Bld) [Volume fraction] 36.9 % Low 39.0-51.0 [facility] Comment on above: Order Comment: Speci men Type: BLOOD SPECIMENOrdering Facility: [facility] Address: [address] [place] [address] [place] [address] Performed By: #### 5 8410-2 ####VALLECILLO LABORATORYCLIA [id number] [address] Hemoglobin (Bld) [Mass/Vol] 11.9 g/dL Low 13.0-17.0 [facility] Comment on above: Order Comment: Speci men Type: BLOOD SPECIMENOrdering Facility: [facility] Address: [address] [place] [address] Performed By: #### 5 8410-2 ####VALLECILLO LABORATORYCLIA [id number] [address] STATES [facility] MCH (RBC) [Entitic mass] 30.4 pg Normal 26.0-34.0 [facility] Comment on above: Order Comment: Speci men Type: BLOOD SPECIMENOrdering Facility: [facility] Address: [address] [place] [address] Performed By: #### 5 8410-2 ####VALLECILLO LABORATORYCLIA [id number] [address] MCHC (RBC) [Mass/Vol] 32.2 g/dL Normal 30.5-36.0 [facility] Comment on above: Order Comment: Speci men Type: BLOOD SPECIMENOrdering Facility: [facility] Address: [address] [place] [address] Performed By: #### 5 8410-2 ####VALLECILLO LABORATORYCLIA [id number] [address] MCV (RBC) [Entitic vol] 94.1 fL Normal 80.0-100.0 [facility] Comment on above: Order Comment: Speci men Type: BLOOD SPECIMENOrdering Facility: [facility] Address: [address] [place] [address] Performed By: #### 5 8410-2 ####VALLECILLO LABORATORYCLIA [id number] [address] Nucleated RBC (Bld) [#/Vol] 10*3/uL Normal <0.01 [facility] Comment on above: Order Comment: Speci men Type: BLOOD SPECIMENOrdering Facility: [facility] Address: [address] [place] [address] Performed By: #### 5 8410-2 ####VALLECILLO LABORATORYCLIA [id number] [place] [address] [place] Platelet mean volume (Bld) [Entitic vol] 10.4 fL Normal 9.0-12.7 [facility] Comment on above: Order Comment: Speci men Type: BLOOD SPECIMENOrdering Facility: [facility] Address: [address] [place] [address] Performed By: #### 5 8410-2 ####VALLECILLO LABORATORYCLIA [id number] [place] [address] [place] Platelets (Bld) [#/Vol] 174 10*3/uL Normal 150-400 [facility] Comment on above: Order Comment: Speci men Type: BLOOD SPECIMENOrdering Facility: [facility] Address: [address] [place] [address] Performed By: #### 5 8410-2 ####VALLECILLO LABORATORYCLIA [id number] [place] [address] [place] RBC (Bld) [#/Vol] 3.92 10*6/uL Low 4.20-6.00 [facility] Comment on above: Order Comment: Speci men Type: BLOOD SPECIMENOrdering Facility: [facility] Address: [address] [place] [address] Performed By: #### 5 8410-2 ####VALLECILLO LABORATORYCLIA [id number] [address] [place] WBC (Bld) [#/Vol] 6.05 10*3/uL Normal 3.70-11.00 [facility] Comment on above: Order Comment: Speci men Type: BLOOD SPECIMENOrdering Facility: [facility] Address: [address] [place] [address] Performed By: #### 5 8410-2 ####VALLECILLO LABORATORYCLIA [id number] [place] [id number] [facility] [place] CONSULTon 07-08-2024 CONSULT Normal [facility] Comprehensive metabolic 2000 panelon 07-08-2024 Albumin [Mass/Vol] 3.5 g/dL Low 3.9-4.9 [facility] Comment on above: Order Comment: Speci men Type: BLOOD SPECIMENOrdering Facility: [facility] Address: [address] [place] [address] Performed By: #### 2 4323-8 ####VALLECILLO LABORATORYCLIA [id number] [place], [place] [address] [place] [address] [place] ALP [Catalytic activity/Vol] 80 U/L Normal 38-113 [facility] Comment on above: Order Comment: Speci men Type: BLOOD SPECIMENOrdering Facility: [facility] Address: [address] [place] [address] Performed By: #### 2 4323-8 ####VALLECILLO LABORATORYCLIA [id number] [address] [place] ALT [Catalytic activity/Vol] 9 U/L Low 10-54 [facility] Comment on above: Order Comment: Speci men Type: BLOOD SPECIMENOrdering Facility: [facility] Address: [address] [place] [address] Performed By: #### 2 4323-8 ####VALLECILLO LABORATORYCLIA [id number] [place] [address] [place] Anion gap [Moles/Vol] 11 mmol/L Normal 8-15 [facility] Comment on above: Order Comment: Speci men Type: BLOOD SPECIMENOrdering Facility: [facility] Address: [address] [place] [address] Performed By: #### 2 4323-8 ####VALLECILLO LABORATORYCLIA [id number] [address] [place] AST [Catalytic activity/Vol] 12 U/L Low 14-40 [facility] Comment on above: Order Comment: Speci men Type: BLOOD SPECIMENOrdering Facility: [facility] Address: [address] [place] [address] Performed By: #### 2 4323-8 ####VALLECILLO LABORATORYCLIA [id number] [place] [address] [place] Bilirubin [Mass/Vol] 0.5 mg/dL Normal 0.2-1.3 [facility] Comment on above: Order Comment: Speci men Type: BLOOD SPECIMENOrdering Facility: [facility] Address: [address] [place] [address] Performed By: #### 2 4323-8 ####VALLECILLO LABORATORYCLIA [id number] [place] [address] [place] Calcium [Mass/Vol] 9.5 mg/dL Normal 8.5-10.2 [facility] Comment on above: Order Comment: Speci men Type: BLOOD SPECIMENOrdering Facility: [facility] Address: [address] [place] [address] Performed By: #### 2 4323-8 ####VALLECILLO LABORATORYCLIA [id number] [place] [address] [place] Chloride [Moles/Vol] 103 mmol/L Normal 98-107 [facility] Comment on above: Order Comment: Speci men Type: BLOOD SPECIMENOrdering Facility: [facility] Address: [address] [place] [address] Performed By: #### 2 4323-8 ####VALLECILLO LABORATORYCLIA [id number] [place] [address] [place] CO2 [Moles/Vol] 25 mmol/L Normal 22-30 [facility] Comment on above: Order Comment: Speci men Type: BLOOD SPECIMENOrdering Facility: [facility] Address: [address] [place] [address] Performed By: #### 2 4323-8 ####VALLECILLO LABORATORYCLIA [id number] [place] [address] [place] Creatinine [Mass/Vol] 5.50 mg/dL High 0.73-1.22 [facility] Comment on above: Order Comment: Speci men Type: BLOOD SPECIMENOrdering Facility: [facility] Address: [address] [place] [address] Performed By: #### 2 4323-8 ####VALLECILLO LABORATORYCLIA [id number] [address] [place] Creatinine and Glomerular filtration rate.predicted panel (S/P/Bld) 10 mL/min/1.73m??? Low >=60 [facility] Comment on above: Order Comment: Speci men Type: BLOOD SPECIMENOrdering Facility: [facility] Address: [address] [place] [address] Result Comment: Anupama mated Glomerular Filtration Rate (eGFR) is calculated using the 2020 CKD-EPI creatinine equation. This equation utilizes serum creatinine, sex, and age as parameters. The creatinine assay has traceable calibration to isotope dilution-mass spectrometry. Refer to KDIGO guidelines for clinical interpretation. In patients with unstable renal function, e.g. those with acute kidney injury, the eGFR may not accurately reflect actual GFR. Performed By: #### 2 4323-8 ####RO[facility] OAK LABORATORYCLIA [id number] [place] [id number] [place] Glucose [Mass/Vol] 134 mg/dL High 74-99 [facility] Comment on above: Order Comment: Alise montejo Type: BLOOD SPECIMENOrdering Facility: [facility] Address: [address] [place] [address] Result Comment: The [place] Diabetes Association (ADA) provides guidance for cutoff values for fasting glucose and random glucose. The ADA defines fasting as no caloric intake for at least 8 hours. Fasting plasma glucose results between 100 to 125 mg/dL indicate increased risk for diabetes (prediabetes).Fasting plasma glucose results greater than or equal to 126 mg/dL meet the criteria for diagnosis of diabetes. In the absence of unequivocal hyperglycemia, results should be confirmed by repeat testing. In a patient with classic symptoms of hyperglycemia or hyperglycemic crisis, random plasma glucose results greater than or equal to 200 mg/dL meet the criteria for diagnosis of diabetes.Reference: Standards of Medical Care in Diabetes 2016, [place] [employer]. Diabetes Care. 2016.39(Suppl 1). Performed By: #### 2 4323-8 ####RO[facility] OAK LABORATORYCLIA [id number] [place] [address] [place] Potassium [Moles/Vol] 4.9 mmol/L Normal 3.7-5.1 [facility] Comment on above: Order Comment: Alise montejo Type: BLOOD SPECIMENOrdering Facility: [facility] Address: [address] [place] [id number] Performed By: #### 2 4323-8 ####RO[facility] OAK LABORATORYCLIA [id number] [place] [address] [place] Protein [Mass/Vol] 5.9 g/dL Low 6.3-8.0 [facility] Comment on above: Order Comment: Speci men Type: BLOOD SPECIMENOrdering Facility: [facility] Address: [address] [place] [address] Performed By: #### 2 4323-8 ####VALLECILLO LABORATORYCLIA [id number] [place] [address] [place] Sodium [Moles/Vol] 139 mmol/L Normal 136-144 [facility] Comment on above: Order Comment: Speci men Type: BLOOD SPECIMENOrdering Facility: [facility] Address: [address] [place] [address] Performed By: #### 2 4323-8 ####VALLECILLO LABORATORYCLIA [id number] [place] [address] [place] Urea nitrogen [Mass/Vol] 45 mg/dL High 9-24 [facility] Comment on above: Order Comment: Speci men Type: BLOOD SPECIMENOrdering Facility: [facility] Address: [address] [place] [address] Performed By: #### 2 4323-8 ####VALLECILLO LABORATORYCLIA [id number] [place] [address] [place] HBV surface Ag Ser Qlon HBV surface Ag Ql (S) Negative Normal Negative [facility] Comment on above: Order Comment: Speci men Type: BLOOD SPECIMENOrdering Facility: [facility] Address: [address] [place] [address] Performed By: #### 5 195-3 ####[facility] LABCLIA [id number] [place] [address] [place] ALLIED HEALTHon 07-07-2024 ALLIED HEALTH Normal [facility] ALLIED HEALTH Normal [facility] CBC W Auto Differential pane l (Bld)on 07-07-2024 Basophils (Bld) [#/Vol] 0.07 10*3/uL Normal <0.11 [facility] Comment on above: Order Comment: Speci men Type: BLOOD SPECIMENOrdering Facility: [facility] Address: [address] [place] [address] Performed By: #### 5 7021-8 ####VALLECILLO LABORATORYCLIA [id number] [place] [address] [place] Basophils/100 WBC (Bld) 1.0 % Normal [facility] Comment on above: Order Comment: Speci men Type: BLOOD SPECIMENOrdering Facility: [facility] Address: [address] [place] [address] Performed By: #### 5 7021-8 ####VALLECILLO LABORATORYCLIA [id number] [place] [address] [place] Differential cell count method Nom (Bld) Auto Normal [facility] Comment on above: Order Comment: Speci men Type: BLOOD SPECIMENOrdering Facility: [facility] Address: [address] [place] [address] Performed By: #### 5 7021-8 ####VALLECILLO LABORATORYCLIA [id number] [place] [address] [place] Eosinophils (Bld) [#/Vol] 0.38 10*3/uL Normal <0.46 [facility] Comment on above: Order Comment: Speci men Type: BLOOD SPECIMENOrdering Facility: [facility] Address: [address] [place] [address] Performed By: #### 5 7021-8 ####VALLECILLO LABORATORYCLIA [id number] [address] [place] Eosinophils/100 WBC (Bld) 5.2 % Normal [facility] Comment on above: Order Comment: Speci men Type: BLOOD SPECIMENOrdering Facility: [facility] Address: [address] [place] [address] Performed By: #### 5 7021-8 ####VALLECILLO LABORATORYCLIA [id number] [place] [address] [place] Erythrocyte distribution width (RBC) [Ratio] 16.8 % High 11.5-15.0 [facility] Comment on above: Order Comment: Speci men Type: BLOOD SPECIMENOrdering Facility: [facility] Address: [address] [place] [address] Performed By: #### 5 7021-8 ####VALLECILL[facility] LABORATORYCLIA [id number] [place] [address] [place] Hematocrit (Bld) [Volume fraction] 38.6 % Low 39.0-51.0 [facility] Comment on above: Order Comment: Speci men Type: BLOOD SPECIMENOrdering Facility: [facility] Address: [address] [place] [address] Performed By: #### 5 7021-8 ####VALLECILL[facility] LABORATORYCLIA [id number] [place] [address] [place] Hemoglobin (Bld) [Mass/Vol] 12.3 g/dL Low 13.0-17.0 [facility] Comment on above: Order Comment: Speci men Type: BLOOD SPECIMENOrdering Facility: [facility] Address: [address] [place] [address] Performed By: #### 5 7021-8 ####VALLECILL[facility] LABORATORYCLIA [id number] [place] [address] [place] Immature granulocytes (Bld) [#/Vol] 0.03 10*3/uL Normal <0.10 [facility] Comment on above: Order Comment: Speci men Type: BLOOD SPECIMENOrdering Facility: [facility] Address: [address] [place] [address] Performed By: #### 5 7021-8 ####VALLECILLO LABORATORYCLIA [id number] [address] [place] Immature granulocytes/100 WBC (Bld) 0.4 % Normal [facility] Comment on above: Order Comment: Speci men Type: BLOOD SPECIMENOrdering Facility: [facility] Address: [address] [place] [address] Performed By: #### 5 7021-8 ####VALLECILLO LABORATORYCLIA [id number] [place] [address] [place] Lymphocytes (Bld) [#/Vol] 1.12 10*3/uL Normal 1.00-4.00 [facility] Comment on above: Order Comment: Speci men Type: BLOOD SPECIMENOrdering Facility: [facility] Address: [address] [place] [address] Performed By: #### 5 7021-8 ####VALLE[facility] LABORATORYCLIA [id number] [address] Lymphocytes/100 WBC (Bld) 15.3 % Normal [facility] Comment on above: Order Comment: Speci men Type: BLOOD SPECIMENOrdering Facility: [facility] Address: [address] [place] [address] Performed By: #### 5 7021-8 ####VALLECILL[facility] LABORATORYCLIA [id number] [address] MCH (RBC) [Entitic mass] 30.4 pg Normal 26.0-34.0 [facility] Comment on above: Order Comment: Speci men Type: BLOOD SPECIMENOrdering Facility: [facility] Address: [address] [place] [address] Performed By: #### 5 7021-8 ####VALLECILLO LABORATORYCLIA [id number] [address] STATES [facility] MCHC (RBC) [Mass/Vol] 31.9 g/dL Normal 30.5-36.0 [facility] Comment on above: Order Comment: Speci men Type: BLOOD SPECIMENOrdering Facility: [facility] Address: [address] [place] [address] Performed By: #### 5 7021-8 ####VAL[facility]LLO LABORATORYCLIA [id number] [address] MCV (RBC) [Entitic vol] 95.3 fL Normal 80.0-100.0 [facility] Comment on above: Order Comment: Speci men Type: BLOOD SPECIMENOrdering Facility: [facility] Address: [address] [place] [address] Performed By: #### 5 7021-8 ####VALLECILLO LABORATORYCLIA [id number] [address] Monocytes (Bld) [#/Vol] 0.73 10*3/uL Normal <0.87 [facility] Comment on above: Order Comment: Speci men Type: BLOOD SPECIMENOrdering Facility: [facility] Address: [address] [place] [address] Performed By: #### 5 7021-8 ####VALLECILLO LABORATORYCLIA [id number] [place] [address] [place] Monocytes/100 WBC (Bld) 10.0 % Normal [facility] Comment on above: Order Comment: Speci men Type: BLOOD SPECIMENOrdering Facility: [facility] Address: [address] [place] [address] Performed By: #### 5 7021-8 ####VALLECILLO LABORATORYCLIA [id number] [place] [address] [place] Neutrophils (Bld) [#/Vol] 4.99 10*3/uL Normal 1.45-7.50 [facility] Comment on above: Order Comment: Speci men Type: BLOOD SPECIMENOrdering Facility: [facility] Address: [address] [place] [address] Performed By: #### 5 7021-8 ####VALLECILLO LABORATORYCLIA [id number] [place] [address] [place] Neutrophils/100 WBC (Bld) 68.1 % Normal [facility] Comment on above: Order Comment: Speci men Type: BLOOD SPECIMENOrdering Facility: [facility] Address: [address] [place] [address] Performed By: #### 5 7021-8 ####VALLECILLO LABORATORYCLIA [id number] [place] [id number] [place] Nucleated RBC (Bld) [#/Vol] 10*3/uL Normal <0.01 [facility] Comment on above: Order Comment: Speci men Type: BLOOD SPECIMENOrdering Facility: [facility] Address: [address] [place] [address] Performed By: #### 5 7021-8 ####VALLECILLO LABORATORYCLIA [id number] [place] [address] [place] Nucleated RBC/100 WBC (Bld) [Ratio] 0.0 /100 WBC Normal [facility] Comment on above: Order Comment: Speci men Type: BLOOD SPECIMENOrdering Facility: [facility] Address: [address] [place] [address] Performed By: #### 5 7021-8 ####VALLECILLO LABORATORYCLIA [id number] [place] [address] [place] Platelet mean volume (Bld) [Entitic vol] 10.3 fL Normal 9.0-12.7 [facility] Comment on above: Order Comment: Speci men Type: BLOOD SPECIMENOrdering Facility: [facility] Address: [address] [place], [place] [address] [address] Performed By: #### 5 7021-8 ####VALLECILLO LABORATORYCLIA [id number] [place] [address] [place] Platelets (Bld) [#/Vol] 167 10*3/uL Normal 150-400 [facility] Comment on above: Order Comment: Speci men Type: BLOOD SPECIMENOrdering Facility: [facility] Address: [address] [place] [address] [place] [address] Performed By: #### 5 7021-8 ####ROYAL OAK LABORATORYCLIA [id number] [place] [address] [place] RBC (Bld) [#/Vol] 4.05 10*6/uL Low 4.20-6.00 [facility] Comment on above: Order Comment: Speci men Type: BLOOD SPECIMENOrdering Facility: [facility] Address: [address] [place] [address] [place] [address] Performed By: #### 5 7021-8 ####VALLECILLO LABORATORYCLIA [id number] [place] [address] [place] WBC (Bld) [#/Vol] 7.32 10*3/uL Normal 3.70-11.00 [facility] Comment on above: Order Comment: Speci men Type: BLOOD SPECIMENOrdering Facility: [facility] Address: [address] [place] [address] [place] [address] Performed By: #### 5 7021-8 ####VALLECILLO LABORATORYCLIA [id number] [place] [id number] [facility] OF [place] CT BRAIN WO IVCONon 07-07-[address] BRAIN WO IVCON Normal [facility] Comprehensive metabolic 2000 panelon 12-02-2024 Albumin [Mass/Vol] 4.0 g/dL Normal 3.9-4.9 [facility] Comment on above: Order Comment: Speci men Type: BLOOD SPECIMENOrdering Facility: [facility] Address: [address] [place] [address] Performed By: #### 3 016-3, [id number], 65357-5, 02275-5 ####VALLECILLO LABORATORYCLIA [id number] [place] [address] [place] ALP [Catalytic activity/Vol] 89 U/L Normal 38-113 [facility] Comment on above: Order Comment: Speci men Type: BLOOD SPECIMENOrdering Facility: [facility] Address: [address] [place] [address] Performed By: #### 3 016-3, [id number], 65405-9, 98823-2 ####VALLECILLO LABORATORYCLIA [id number] [address] [place] ALT [Catalytic activity/Vol] 11 U/L Normal 10-54 [facility] Comment on above: Order Comment: Speci men Type: BLOOD SPECIMENOrdering Facility: [facility] Address: [address] [place] [address] Performed By: #### 3 016-3, [id number], 81417-2, 17797-1 ####VALLECILLO LABORATORYCLIA [id number] [place] [address] [place] [facility] Anion gap [Moles/Vol] 12 mmol/L Normal 8-15 [facility] Comment on above: Order Comment: Speci men Type: BLOOD SPECIMENOrdering Facility: [facility] Address: [address] [place] [address] Performed By: #### 3 016-3, [id number], 46134-7, 04622-7 ####VALLECILLO LABORATORYCLIA [id number] [place] [address] [place] AST [Catalytic activity/Vol] Normal [facility] Comment on above: Order Comment: Speci men Type: BLOOD SPECIMENOrdering Facility: [facility] Address: [address] [place] [address] Result Comment: Unab le to assay due to interference from hemolysis. Suggest reorder as clinically indicated. Performed By: #### 3 016-3, [id number], 80633-8, 87394-8 ####VALLECILLO LABORATORYCLIA [id number] [place] [address] [place] Bilirubin [Mass/Vol] 0.5 mg/dL Normal 0.2-1.3 [facility] Comment on above: Order Comment: Speci men Type: BLOOD SPECIMENOrdering Facility: [facility] Address: [address] [place] [address] Performed By: #### 3 016-3, [id number], 35110-0, 42612-3 ####VALLECILLO LABORATORYCLIA [id number] [place] [address] [place] Calcium [Mass/Vol] 9.6 mg/dL Normal 8.5-10.2 [facility] Comment on above: Order Comment: Speci men Type: BLOOD SPECIMENOrdering Facility: [facility] Address: [address] [place] [address] Performed By: #### 3 016-3, [id number], 44672-4, 93569-8 ####VALLECILLO LABORATORYCLIA [id number] [place] [address] [place] Chloride [Moles/Vol] 100 mmol/L Normal 98-107 [facility] Comment on above: Order Comment: Speci men Type: BLOOD SPECIMENOrdering Facility: [facility] Address: [facility] [place] [address] Performed By: #### 3 016-3, [id number], 53920-7, 43418-8 ####VALLECILLO LABORATORYCLIA [id number] [place] [address] [place] CO2 [Moles/Vol] 26 mmol/L Normal 22-30 [facility] Comment on above: Order Comment: Speci men Type: BLOOD SPECIMENOrdering Facility: [facility] Address: [address] [place] [address] Performed By: #### 3 016-3, [id number], 30489-2, 52337-6 ####VALLECILLO LABORATORYCLIA [id number] [place] [id number] [place] Creatinine [Mass/Vol] 5.17 mg/dL High 0.73-1.22 [facility] Comment on above: Order Comment: Alise montejo Type: BLOOD SPECIMENOrdering Facility: [facility] Address: [address] [place] [address] Performed By: #### 3 016-3, [id number], 81237-4, 85668-4 ####VALLECILLO LABORATORYCLIA [id number] [place] [id number] [place] Creatinine and Glomerular filtration rate.predicted panel (S/P/Bld) 11 mL/min/1.73m??? Low >=60 [facility] Comment on above: Order Comment: Alise montejo Type: BLOOD SPECIMENOrdering Facility: [facility] Address: [address] [place] [address] Result Comment: Anupama mated Glomerular Filtration Rate (eGFR) is calculated using the 2020 CKD-EPI creatinine equation. This equation utilizes serum creatinine, sex, and age as parameters. The creatinine assay has traceable calibration to isotope dilution-mass spectrometry. Refer to KDIGO guidelines for clinical interpretation. In patients with unstable renal function, e.g. those with acute kidney injury, the eGFR may not accurately reflect actual GFR. Performed By: #### 3 016-3, [id number], 48110-5, 85594-6 ####VALLECILLO LABORATORYCLIA [id number] [place] [id number] [place] Glucose [Mass/Vol] 136 mg/dL High 74-99 [facility] Comment on above: Order Comment: Alise montejo Type: BLOOD SPECIMENOrdering Facility: [facility] Address: [address] [place] [address] Result Comment: The [place] Diabetes Association (ADA) provides guidance for cutoff values for fasting glucose and random glucose. The ADA defines fasting as no caloric intake for at least 8 hours. Fasting plasma glucose results between 100 to 125 mg/dL indicate increased risk for diabetes (prediabetes).Fasting plasma glucose results greater than or equal to 126 mg/dL meet the criteria for diagnosis of diabetes. In the absence of unequivocal hyperglycemia, results should be confirmed by repeat testing. In a patient with classic symptoms of hyperglycemia or hyperglycemic crisis, random plasma glucose results greater than or equal to 200 mg/dL meet the criteria for diagnosis of diabetes.Reference: Standards of Medical Care in Diabetes 2016, [place] [employer]. Diabetes Care. 2016.39(Suppl 1). Performed By: #### 3 016-3, [id number], 93868-0, 63458-1 ####VALLECILLO LABORATORYCLIA [id number] [place] [address] [place] Potassium [Moles/Vol] 5.8 mmol/L High 3.7-5.1 [facility] Comment on above: Order Comment: Alise montejo Type: BLOOD SPECIMENOrdering Facility: [facility] Address: [address] [place] [address] Performed By: #### 3 016-3, [id number], 47557-3, 95668-7 ####VALLECILLO LABORATORYCLIA [id number] [place] [address] [place] Protein [Mass/Vol] 6.9 g/dL Normal 6.3-8.0 [facility] Comment on above: Order Comment: Alise montejo Type: BLOOD SPECIMENOrdering Facility: [facility] Address: [address] [place] [address] Performed By: #### 3 016-3, [id number], 53131-6, 72307-6 ####VALLECILLO LABORATORYCLIA [id number] [address] [place] Sodium [Moles/Vol] 138 mmol/L Normal 136-144 [facility] Comment on above: Order Comment: Alise montejo Type: BLOOD SPECIMENOrdering Facility: [facility] Address: [address] [place] [address] Performed By: #### 3 016-3, [id number], 63652-3, 83745-2 ####VALLECILLO LABORATORYCLIA [id number] [place] [address] [place] Urea nitrogen [Mass/Vol] 42 mg/dL High 9-24 [facility] Comment on above: Order Comment: Alise montejo Type: BLOOD SPECIMENOrdering Facility: [facility] Address: [address] [place] [address] Performed By: #### 3 016-3, [id number], 42525-4, 21284-3 ####VALLECILLO LABORATORYCLIA [id number] [place] [address] [place] ECG COMPLETEon 07-07-2024 ECG COMPLETE Normal [facility] ED NOTEon 07-07-2024 ED NOTE HNO ID: [id number] Author: AARON BORDEN, RN Service: ? Author Type: Registered Nurse Type: ED Notes Filed: 07/07/2024 16:14 Note Text: Heads up called to [address] [place] [address] charge nurse (Spoke with Tamia) Normal [facility] ED NOTE HNO ID: [id number] Author: LEANA MACEDO, LINA Service: Nursing Author Type: Registered Nurse Type: ED Notes Filed: 07/07/2024 11:51 Note Text: Portable xray at bedside. Normal [facility] ED NOTE Normal [facility] ED PROV NOTEon 07-07-2024 ED PROV NOTE Normal [facility] HIGH SENSITIVITY TROPONIN T (INITIAL)on 07-07-2024 Troponin T.cardiac High sensitivity method [Mass/Vol] 92 ng/L High <12 [facility] Comment on above: Order Comment: Speci men Type: BLOOD SPECIMENOrdering Facility: [facility] Address: [address] [place] [address] Performed By: #### 3 016-3, [id number], 48247-7, 43621-5 ####VALLECILLO LABORATORYCLIA [id number] [place] [address] [place] HIGH SENSITIVITY TROPONIN T (SECOND)on 07-07-2024 Troponin T.cardiac High sensitivity method [Mass/Vol] 98 ng/L High <12 [facility] Comment on above: Order Comment: Speci men Type: BLOOD SPECIMENOrdering Facility: [facility] Address: [address] [place] [address] Performed By: #### L [id number] ####VALLECILLO LABORATORYCLIA [id number] [address] [place] HIGH SENSITIVITY TROPONIN T (THIRD) 3 HRS AFTER INITIALon 07-07-2024 Troponin T.cardiac High sensitivity method [Mass/Vol] 96 ng/L High <12 [facility] Comment on above: Order Comment: Alise montejo Type: BLOOD SPECIMENOrdering Facility: [facility] Address: [address] [place] [address] Performed By: #### L [id number] ####ROY[facility] OAK LABORATORYCLIA [id number] [address] HISTORY PHYSICALon HISTORY PHYSICAL Normal [facility] NT-proBNP SerPl-mCncon 07-07 Natriuretic peptide.B prohormone N-Terminal [Mass/Vol] 90039 pg/mL High <450 [facility] Comment on above: Order Comment: Alise montejo Type: BLOOD SPECIMENOrdering Facility: [facility] Address: [address] [place] [address] Performed By: #### 3 016-3, [id number], 69087-6, 46547-4 ####RO[facility] OAK LABORATORYCLIA [id number] [address] PT panel Coag (PPP)on 2023 INR Coag (PPP) [Relative time] 1.0 {INR} Normal 0.9-1.3 [facility] Comment on above: Order Comment: Alise montejo Type: BLOOD SPECIMENOrdering Facility: [facility] Address: [address] [place] [address] Result Comment: Princess min K Antagonist (VKA) Therapeutic Range: INR 2 to 3 (Target INR of 2.5)Note: For patients treated with VKA drugs, such as warfarin, the [place] [employer] 2012 Guideline recommends a therapeutic INR range of 2 to 3 (target INR of 2.5). This recommendation includes high-risk patients with antiphospholipid syndrome with previous arterial or venous thromboembolism, current-generation mechanical or bioprosthetic aortic heart valve replacement.Note: Patients with mechanical aortic valve replacement and additional risk factors for thromboembolic events (atrial fibrillation, previous thromboembolism, LV dysfunction, hypercoagulable conditions) or an older generation mechanical AVR (i.e., ball in-Cage) or any mechanical MVR should have a INR therapeutic range of 2.5 to 3.5 (target INR of 3).Thien GH, et al. Chest 2012, 141:7S-47SNishimura RA, et al. [facility] 2017, 70: 252-289 Performed By: #### 3 4528-0, 15365-9 ####VALLECILLO LABORATORYCLIA [id number] [address] OF [facility] PT Coag (PPP) [Time] 10.8 s Normal 9.7-13.0 [facility] Comment on above: Order Comment: Speci men Type: BLOOD SPECIMENOrdering Facility: [facility] Address: [address] [place] [address] Performed By: #### 3 4528-0, 28877-3 ####VALLECILLO LABORATORYCLIA [id number] [address] SEPSIS LACTATEon 07-07-2024 Lactate [Moles/Vol] 1.3 mmol/L Normal 0.5-2.0 [facility] Comment on above: Order Comment: Speci men Type: BLOOD SPECIMENOrdering Facility: [facility] Address: [address] [place] [address] Performed By: #### S LACT ####RO[facility] OAK LABORATORYCLIA [id number] [address] TSH SerPl-aCncon 07-07-2024 TSH Qn 3.260 m[IU]/L Normal 0.270-4.20 0 [facility] Comment on above: Order Comment: Speci men Type: BLOOD SPECIMENOrdering Facility: [facility] Address: [address] [place] [address] Performed By: #### 3 016-3, [id number], 66389-0, 25937-6 ####RO[facility] O[facility] LABORATORYCLIA [id number] [address] Urinalysis complete panel (U )on 07-07-2024 Bilirubin Ql (U) Negative Normal Negative [facility] Comment on above: Order Comment: Speci men Type: URINE SPECIMENOrdering Facility: [facility] Address: [address] [place] [address] Performed By: #### 2 4356-8 ####VALLECILLO LABORATORYCLIA [id number] [address] [place] Clarity (Unsp spec) Clear Normal Clear [facility] Comment on above: Order Comment: Speci men Type: URINE SPECIMENOrdering Facility: [facility] Address: [address] [place] [address] Performed By: #### 2 4356-8 ####VALLECILLO LABORATORYCLIA [id number] [address] [place] Color (U) Yellow Normal Yellow [facility] Comment on above: Order Comment: Speci men Type: URINE SPECIMENOrdering Facility: [facility] Address: [address] [place] [address] Performed By: #### 2 4356-8 ####VALLECILLO LABORATORYCLIA [id number] [address] [place] Glucose Test strip (U) [Mass/Vol] Trace Abnormal Negative [facility] Comment on above: Order Comment: Speci men Type: URINE SPECIMENOrdering Facility: [facility] Address: [address] [place] [address] Performed By: #### 2 4356-8 ####VALLECILLO LABORATORYCLIA [id number] [place] [address] [place] Hemoglobin Ql (U) Negative Normal Negative [facility] Comment on above: Order Comment: Speci men Type: URINE SPECIMENOrdering Facility: [facility] Address: [address] [place] [address] Performed By: #### 2 4356-8 ####VALLECILLO LABORATORYCLIA [id number] [place] [address] [place] Ketones Ql (U) Negative Normal Negative [facility] Comment on above: Order Comment: Speci men Type: URINE SPECIMENOrdering Facility: [facility] Address: [address] [place] [address] Performed By: #### 2 4356-8 ####VALLECILLO LABORATORYCLIA [id number] [place] [address] [place] Leukocyte esterase Test strip Ql (U) Negative Normal Negative [facility] Comment on above: Order Comment: Speci men Type: URINE SPECIMENOrdering Facility: [facility] Address: [address] [place] [address] Performed By: #### 2 4356-8 ####VALLECILLO LABORATORYCLIA [id number] [place] [address] [place] Nitrite Ql (U) Negative Normal Negative [facility] Comment on above: Order Comment: Speci men Type: URINE SPECIMENOrdering Facility: [facility] Address: [address] [place] [address] Performed By: #### 2 4356-8 ####VALLECILLO LABORATORYCLIA [id number] [address] [place] pH (U) 7.5 [pH] Normal 5.0-8.0 [facility] Comment on above: Order Comment: Speci men Type: URINE SPECIMENOrdering Facility: [facility] Address: [address] [place] [address] Performed By: #### 2 4356-8 ####VALLECILLO LABORATORYCLIA [id number] [address] [place] Protein (U) [Mass/Vol] 3+ Abnormal Negative [facility] Comment on above: Order Comment: Speci men Type: URINE SPECIMENOrdering Facility: [facility] Address: [address] [place] [address] Performed By: #### 2 4356-8 ####VALLECILLO LABORATORYCLIA [id number] [address] [place] RBC LM.HPF (Urine sed) [#/Area] 0-3 /HPF Normal 0-3 /HPF [facility] Comment on above: Order Comment: Speci men Type: URINE SPECIMENOrdering Facility: [facility] Address: [address] [place] [address] Performed By: #### 2 4356-8 ####VALLECILLO LABORATORYCLIA [id number] [address] Specific gravity (U) [Rel density] 1.020 Normal 1.005-1.03 0 [facility] Comment on above: Order Comment: Speci men Type: URINE SPECIMENOrdering Facility: [facility] Address: [address] [place] [address] Performed By: #### 2 4356-8 ####[facility] O[facility] LABORATORYCLIA [id number] [address] Urobilinogen Ql (U) 0.2 EU/dL Normal 0.2-1.0 EU/dL [facility] Comment on above: Order Comment: Speci men Type: URINE SPECIMENOrdering Facility: [facility] Address: [address] [place] [address] Performed By: #### 2 4356-8 ####[facility] O[facility] LABORATORYCLIA [id number] [address] WBC LM.HPF (Urine sed) [#/Area] 0-5 /HPF Normal 0-5 /HPF [facility] Comment on above: Order Comment: Speci men Type: URINE SPECIMENOrdering Facility: [facility] Address: [address] [place] [address] Performed By: #### 2 4356-8 ####RO[facility] OAK LABORATORYCLIA [id number] [address] [place] XR CHEST 1V FRONTAL PORTon 1 09-07-2023 XR CHEST 1V FRONTAL PORT Normal [facility] aPTT PPPon 07-07-2024 aPTT Coag (PPP) [Time] 23.8 s Normal 23.0-32.[address] [facility] Comment on above: Order Comment: Speci men Type: BLOOD SPECIMENOrdering Facility: [facility] Address: [address] [place] [address] Performed By: #### 3 4528-0, 76034-0 ####[facility] OAK LABORATORYCLIA [id number] [place] [address] [place] Basic metabolic 1998 panelon 05-26-2024 Anion gap [Moles/Vol] 10 mmol/L 3 - 13 mmol/L [facility] Calcium [Mass/Vol] 9.2 mg/dL 8.4 - 10. 4 mg/dL [facility] Chloride [Moles/Vol] 94 mmol/L Low 98 - 10 7 mmol/L [facility] CO2 [Moles/Vol] 29 mmol/L 22 - 30 mmol/L [facility] Creatinine [Mass/Vol] 4.61 mg/dL High 0.66 - 1.25 mg/dL [email or web address] GFR/1.73 sq M.predicted (S/P/Bld) [Vol rate/Area] 12.4 mL/min Low - PINF [email or web address] Comment on above: Calculation based on the Chronic Kidney Disease Epidemiology Collaboration (CKD-EPI) equation refit without adjustment for race Glucose [Mass/Vol] 234 mg/dL High 70 - 100 mg/dL [email or web address] Interpretation and review of laboratory results Abnormal [email or web address] Potassium [Moles/Vol] 4.9 mmol/L 3.5 - 5.1 mmol/L [email or web address] Sodium [Moles/Vol] 133 mmol/L Low 135 - 145 mmol/L [email or web address] Urea nitrogen [Mass/Vol] 58 mg/dL High 9 - 20 mg/dL [email or web address] CBC W Auto Differential pane l (Bld)on 05-26-2024 Basophils (Bld) [#/Vol] 0.0 10*3/uL 0.0 - 0.2 10*3/uL [email or web address] Basophils/100 WBC (Bld) 0.1 % 0.0 - 2.0 % [email or web address] Eosinophils (Bld) [#/Vol] 0.0 10*3/uL 0.0 - 0.5 10*3/uL [email or web address] Eosinophils/100 WBC (Bld) 0.1 % 0.0 - 6.0 % [email or web address] Erythrocyte distribution width (RBC) [Ratio] 16.9 % High 11.5 - 15.0 % [email or web address] Hematocrit (Bld) [Volume fraction] 38.5 % Low 40.0 - 52.0 % [email or web address] Hemoglobin (Bld) [Mass/Vol] 12.3 g/dL Low 13.0 - 18.0 g/dL [email or web address] Immature granulocytes (Bld) [#/Vol] 0.0 10*3/uL NINF - 0.1 10*3/uL [email or web address] Immature granulocytes/100 WBC (Bld) 0.4 % 0.0 - 2.0 % [email or web address] Interpretation and review of laboratory results Abnormal [email or web address] Lymphocytes (Bld) [#/Vol] 0.6 10*3/uL Low 1.0 - 4.3 10*3/uL [email or web address] Lymphocytes/100 WBC (Bld) 5.8 % Low 15.0 - 45.0 % [email or web address] MCH (RBC) [Entitic mass] 29.6 pg 26.0 - 34.0 pg [email or web address] MCHC (RBC) [Mass/Vol] 31.9 % 30.5 - 36.0 % [email or web address] MCV (RBC) [Entitic vol] 92.5 fL 77.0 - 99.0 fL [email or web address] Monocytes (Bld) [#/Vol] 0.7 10*3/uL 0.0 - 0.9 10*3/uL [email or web address] Monocytes/100 WBC (Bld) 6.1 % 5.0 - 13.0 % [email or web address] Neutrophils (Bld) [#/Vol] 9.5 10*3/uL High 1.8 - 7.5 10*3/uL [email or web address] Neutrophils/100 WBC (Bld) 87.5 % High 38.0 - 82.0 % [place] [email or web address] Nucleated RBC/100 WBC (Bld) [Ratio] 0.0 % [email or web address] Platelet mean volume (Bld) [Entitic vol] 11.0 fL 9.0 - 12.7 fL [email or web address] Platelets (Bld) [#/Vol] 177 10*3/uL 140 - 440 10*3/uL [facility] [email or web address] RBC (Bld) [#/Vol] 4.16 10*6/uL Low 4.40 - 5.90 10*6/uL [email or web address] WBC (Bld) [#/Vol] 10.9 10*3/uL High 3.6 - 10.7 10*3/uL [facility] - Chemistry and C hemistry - challengeon 05-26-2024 Troponin I.cardiac [Mass/Vol] 0.032 ng/mL NINF - 0.034 ng/mL [facility] [email or web address] No Panel InformationOrdered By: Chris Mcknight on 05-26-2024 P [place] 45 degrees [facility] [email or web address] Work Phone: OR Interval 154 ms [employer] Work Phone: QRS [place] 77 degrees [employer] Work Phone: QRSD Interval 119 ms [employer] Work Phone: QT Interval 473 ms [employer] Work Phone: QTC Interval 544 ms [employer] Work Phone: T Wave [place] 59 degrees [employer] Work Phone: [employer] Work Phone: No Panel Informationon 05-26 Sinus rhythm Probable left atrial enlargement Left ventricular hypertrophy Borderline T abnormalities, lateral leads Prolonged QT interval Electronically Signed On 05-26-2024 08:01:52 EDT by Chris Mcknight CV Chris Ellis MD - 05/26/2024 IMPRESSION: Sinus rhythm Probable left atrial enlargement Left ventricular hypertrophy Borderline T abnormalities, lateral leads Prolonged QT interval Electronically Signed On 05-26-2024 08:01:52 EDT by Chris Mcknight [facility] Troponin I.cardiac [Mass/Vol ]on 05-26-2024 Interpretation and review of laboratory results Normal [facility] Patients with high l evels of Biotin oral intake (ie >5 mg/day) may have falsely decreased Troponin levels. In[employer]iliarie Vital signsOrdered By: Denilson Mcknight on 05-26-2024 Heart rate 79 /min bpm [employer] Work Phone: Basic metabolic 2000 panelon 05-09-2024 Anion gap [Moles/Vol] 14 mmol/L Normal 8-15 [facility] Comment on above: Order Comment: Speci men Type: BLOOD SPECIMENOrdering Facility: [facility] Address: [address] [place] [address] Performed By: #### 2 4321-2 ####[facility] LABORATORYCLIA [id number] [place] [address] [place] Calcium [Mass/Vol] 8.6 mg/dL Normal 8.5-10.2 [facility] Comment on above: Order Comment: Alishai men Type: BLOOD SPECIMENOrdering Facility: [facility] Address: [address] [place] [address] Performed By: #### 2 4321-2 ####[facility] LABORATORYCLIA [id number] [place] [id number] [place] Chloride [Moles/Vol] 95 mmol/L Low 98-107 [facility] Comment on above: Order Comment: Speci men Type: BLOOD SPECIMENOrdering Facility: [facility] Address: [address] [place] [address] Performed By: #### 2 4321-2 ####[facility] LABORATORYCLIA [id number] [place] [address] [place] CO2 [Moles/Vol] 24 mmol/L Normal 22-30 [facility] Comment on above: Order Comment: Speci men Type: BLOOD SPECIMENOrdering Facility: [facility] Address: [address] [place] [address] Performed By: #### 2 4321-2 ####[facility] LABORATORYCLIA [id number] [place] [address] [place] Creatinine [Mass/Vol] 4.55 mg/dL High 0.73-1.22 [facility] Comment on above: Order Comment: Speci men Type: BLOOD SPECIMENOrdering Facility: [facility] Address: [address] [place] [address] Performed By: #### 2 4321-2 ####[facility] LABORATORYCLIA [id number] [place] [address] [place] Creatinine and Glomerular filtration rate.predicted panel (S/P/Bld) 13 mL/min/1.73m??? Low >=60 [facility] Comment on above: Order Comment: Alishai nikia Type: BLOOD SPECIMENOrdering Facility: [facility] Address: [address] [place] [address] Result Comment: Anupama mated Glomerular Filtration Rate (eGFR) is calculated using the 2020 CKD-EPI creatinine equation. This equation utilizes serum creatinine, sex, and age as parameters. The creatinine assay has traceable calibration to isotope dilution-mass spectrometry. Refer to KDIGO guidelines for clinical interpretation. In patients with unstable renal function, e.g. those with acute kidney injury, the eGFR may not accurately reflect actual GFR. Performed By: #### 2 4321-2 ####[facility] LABORATORYCLIA [id number] [place] [id number] [place] Glucose [Mass/Vol] 233 mg/dL High 74-99 [facility] Comment on above: Order Comment: Alise nikia Type: BLOOD SPECIMENOrdering Facility: [facility] Address: [address] [place] [id number] Result Comment: The [place] Diabetes Association (ADA) provides guidance for cutoff values for fasting glucose and random glucose. The ADA defines fasting as no caloric intake for at least 8 hours. Fasting plasma glucose results between 100 to 125 mg/dL indicate increased risk for diabetes (prediabetes).Fasting plasma glucose results greater than or equal to 126 mg/dL meet the criteria for diagnosis of diabetes. In the absence of unequivocal hyperglycemia, results should be confirmed by repeat testing. In a patient with classic symptoms of hyperglycemia or hyperglycemic crisis, random plasma glucose results greater than or equal to 200 mg/dL meet the criteria for diagnosis of diabetes.Reference: Standards of Medical Care in Diabetes 2016, [place] [employer]. Diabetes Care. 2016.39(Suppl 1). Performed By: #### 2 4321-2 ####[facility] LABORATORYCLIA [id number] [place] [address] [place] Potassium [Moles/Vol] 5.9 mmol/L High 3.7-5.1 [facility] Comment on above: Order Comment: Alise nikia Type: BLOOD SPECIMENOrdering Facility: [facility] Address: [address] [place] [address] Performed By: #### 2 4321-2 ####[facility]LE[facility]LL[facility] LABORATORYCLIA [id number] [place] [address] [place] Sodium [Moles/Vol] 133 mmol/L Low 136-144 [facility] Comment on above: Order Comment: Alise men Type: BLOOD SPECIMENOrdering Facility: [facility] Address: [address] [place] [id number] Performed By: #### 2 4321-2 ####[facility] LABORATORYCLIA [id number] [place] [address] [place] Urea nitrogen [Mass/Vol] 54 mg/dL High 9-24 [facility] Comment on above: Order Comment: Alise nikia Type: BLOOD SPECIMENOrdering Facility: [facility] Address: [address] [place] [id number] Performed By: #### 2 4321-2 ####[facility] LABORATORYCLIA [id number] [address] CASE MANAGEMon 05-09-2024 CASE MANAGEM Normal [facility] CASE MANAGEM Normal [facility] CBC panel Auto (Bld)on 05-09 Erythrocyte distribution width (RBC) [Ratio] 15.8 % High 11.5-15.0 [facility] Comment on above: Order Comment: Speci men Type: BLOOD SPECIMENOrdering Facility: [facility] Address: [address] [place] [address] Performed By: #### 5 8410-2 ####[facility] LABORATORYCLIA [id number] [address] Hematocrit (Bld) [Volume fraction] 37.8 % Low 39.0-51.0 [facility] Comment on above: Order Comment: Speci men Type: BLOOD SPECIMENOrdering Facility: [facility] Address: [address] [place] [address] Performed By: #### 5 8410-2 ####[facility] LABORATORYCLIA [id number] [address] Hemoglobin (Bld) [Mass/Vol] 12.0 g/dL Low 13.0-17.0 [facility] Comment on above: Order Comment: Speci men Type: BLOOD SPECIMENOrdering Facility: [facility] Address: [address] [place] [address] Performed By: #### 5 8410-2 ####[facility] LABORATORYCLIA [id number] [address] STATES [facility] MCH (RBC) [Entitic mass] 29.6 pg Normal 26.0-34.0 [facility] Comment on above: Order Comment: Speci men Type: BLOOD SPECIMENOrdering Facility: [facility] Address: [address] [place] [address] Performed By: #### 5 8410-2 ####[facility]IL[facility] LABORATORYCLIA [id number] [address] MCHC (RBC) [Mass/Vol] 31.7 g/dL Normal 30.5-36.0 [facility] Comment on above: Order Comment: Speci men Type: BLOOD SPECIMENOrdering Facility: [facility] Address: [address] [place] [address] Performed By: #### 5 8410-2 ####[facility] LABORATORYCLIA [id number] [place] [address] [place] MCV (RBC) [Entitic vol] 93.3 fL Normal 80.0-100.0 [facility] Comment on above: Order Comment: Speci men Type: BLOOD SPECIMENOrdering Facility: [facility] Address: [address] [place] [address] Performed By: #### 5 8410-2 ####[facility] LABORATORYCLIA [id number] [place] [address] [place] Nucleated RBC (Bld) [#/Vol] 10*3/uL Normal <0.01 [facility] Comment on above: Order Comment: Speci men Type: BLOOD SPECIMENOrdering Facility: [facility] Address: [address] [place] [address] Performed By: #### 5 8410-2 ####[facility] LABORATORYCLIA [id number] [place] [address] [place] Platelet mean volume (Bld) [Entitic vol] 11.3 fL Normal 9.0-12.7 [facility] Comment on above: Order Comment: Speci men Type: BLOOD SPECIMENOrdering Facility: [facility] Address: [address] [place] [address] Performed By: #### 5 8410-2 ####VAL[facility] LABORATORYCLIA [id number] [place] [address] [place] Platelets (Bld) [#/Vol] 195 10*3/uL Normal 150-400 [facility] Comment on above: Order Comment: Speci men Type: BLOOD SPECIMENOrdering Facility: [facility] Address: [address] [place] [address] Performed By: #### 5 8410-2 ####[facility] LABORATORYCLIA [id number] [place] [address] [place] RBC (Bld) [#/Vol] 4.05 10*6/uL Low 4.20-6.00 [facility] Comment on above: Order Comment: Speci men Type: BLOOD SPECIMENOrdering Facility: [facility] Address: [facility] [place] [address] Performed By: #### 5 8410-2 ####VAL[facility]LL[facility] LABORATORYCLIA [id number] [place] [address] [place] WBC (Bld) [#/Vol] 12.37 10*3/uL High 3.70-11.00 [facility] Comment on above: Order Comment: Speci men Type: BLOOD SPECIMENOrdering Facility: [facility] Address: [address] [place] [address] Performed By: #### 5 8410-2 ####[facility] LABORATORYCLIA [id number] [address] [place] CNDSon 05-09-2024 CNDS Normal [facility] CONSULT PROGon 05-09-2024 CONSULT PROG Normal [facility] CONSULT PROG [facility] 05-09-2024 Potassium [Moles/Vol] 4.2 mmol/L Normal 3.7-5.1 [facility] Comment on above: Order Comment: Speci men Type: BLOOD SPECIMENOrdering Facility: [facility] Address: [address] [place] [address] Performed By: #### K 1 ####[facility] LABORATORYCLIA [id number] [place] [address] [place] ALLIED HEALTHon 05-08-2024 ALLIED HEALTH Normal [facility] Basic metabolic 2000 panelon 05-08-2024 Anion gap [Moles/Vol] 12 mmol/L Normal 8-15 [facility] Comment on above: Order Comment: Speci men Type: BLOOD SPECIMENOrdering Facility: [facility] Address: [address] [place] [address] [place] [address] Performed By: #### 2 4321-2, 62501-2 ####[facility] LABORATORYCLIA [id number] [place] [address] [place] Calcium [Mass/Vol] 9.1 mg/dL Normal 8.5-10.2 [facility] Comment on above: Order Comment: Speci men Type: BLOOD SPECIMENOrdering Facility: [facility] Address: [address] [place] [address] Performed By: #### 2 4321-2, ####[facility] LABORATORYCLIA [id number] [place] [address] [place] Chloride [Moles/Vol] 96 mmol/L Low 98-107 [facility] Comment on above: Order Comment: Speci men Type: BLOOD SPECIMENOrdering Facility: [facility] Address: [address] [place] [address] Performed By: #### 2 4321-2, ####[facility] LABORATORYCLIA [id number] [place] [address] [place] CO2 [Moles/Vol] 25 mmol/L Normal 22-30 [facility] Comment on above: Order Comment: Speci men Type: BLOOD SPECIMENOrdering Facility: [facility] Address: [address] [place] [address] Performed By: #### 2 4321-2, ####[facility] LABORATORYCLIA [id number] [place] [address] [place] Creatinine [Mass/Vol] 3.62 mg/dL High 0.73-1.22 [facility] Comment on above: Order Comment: Speci men Type: BLOOD SPECIMENOrdering Facility: [facility] Address: [address] [place] [address] Performed By: #### 2 4321-2, ####[facility] LABORATORYCLIA [id number] [address] [place] Creatinine and Glomerular filtration rate.predicted panel (S/P/Bld) 17 mL/min/1.73m??? Low >=60 [facility] Comment on above: Order Comment: Speci men Type: BLOOD SPECIMENOrdering Facility: [facility] Address: [address] [place] [address] Result Comment: Anupama mated Glomerular Filtration Rate (eGFR) is calculated using the 2020 CKD-EPI creatinine equation. This equation utilizes serum creatinine, sex, and age as parameters. The creatinine assay has traceable calibration to isotope dilution-mass spectrometry. Refer to KDIGO guidelines for clinical interpretation. In patients with unstable renal function, e.g. those with acute kidney injury, the eGFR may not accurately reflect actual GFR. Performed By: #### 2 432-, ####[facility] LABORATORYCLIA [id number] [place] [address] [place] Glucose [Mass/Vol] 227 mg/dL High 74-99 [facility] Comment on above: Order Comment: Speci men Type: BLOOD SPECIMENOrdering Facility: [facility] Address: [address] [place], [place] [address] Result Comment: The [place] Diabetes Association (ADA) provides guidance for cutoff values for fasting glucose and random glucose. The ADA defines fasting as no caloric intake for at least 8 hours. Fasting plasma glucose results between 100 to 125 mg/dL indicate increased risk for diabetes (prediabetes).Fasting plasma glucose results greater than or equal to 126 mg/dL meet the criteria for diagnosis of diabetes. In the absence of unequivocal hyperglycemia, results should be confirmed by repeat testing. In a patient with classic symptoms of hyperglycemia or hyperglycemic crisis, random plasma glucose results greater than or equal to 200 mg/dL meet the criteria for diagnosis of diabetes.Reference: Standards of Medical Care in Diabetes 2016, [place] [employer]. Diabetes Care. 2016.39(Suppl 1). Performed By: #### 2 4320-09, ####VAL[facility]LL[facility] LABORATORYCLIA [id number] [place] [address] [place] Potassium [Moles/Vol] 5.1 mmol/L Normal 3.7-5.1 [facility] Comment on above: Order Comment: Alise montejo Type: BLOOD SPECIMENOrdering Facility: [facility] Address: [address] [place] [address] Performed By: #### 2 4320-09, ####VAL[facility]LL[facility] LABORATORYCLIA [id number] [place] [address] [place] Sodium [Moles/Vol] 133 mmol/L Low 136-144 [facility] Comment on above: Order Comment: Speci men Type: BLOOD SPECIMENOrdering Facility: [facility] Address: [address] [place] [address] Performed By: #### 2 4321-2, ####VAL[facility]LL[facility] LABORATORYCLIA [id number] [place] [address] [place] Urea nitrogen [Mass/Vol] 27 mg/dL High 9-24 [facility] Comment on above: Order Comment: Speci men Type: BLOOD SPECIMENOrdering Facility: [facility] Address: [address] [place] [address] Performed By: #### 2 4321-2, ####VAL[facility]LL[facility] LABORATORYCLIA [id number] [address] [place] CASE MANAGEMon 05-08-2024 CASE MANAGEM Normal [facility] CASE MANAGEM Normal [facility] CBC panel Auto (Bld)on 05-08 Erythrocyte distribution width (RBC) [Ratio] 15.9 % High 11.5-15.0 [facility] Comment on above: Order Comment: Speci men Type: BLOOD SPECIMENOrdering Facility: [facility] Address: [address] [place] [address] Performed By: #### 5 8410-2 ####VALLE[facility]LL[facility] LABORATORYCLIA [id number] [address] [place] Hematocrit (Bld) [Volume fraction] 37.7 % Low 39.0-51.0 [facility] Comment on above: Order Comment: Speci men Type: BLOOD SPECIMENOrdering Facility: [facility] Address: [facility] [place] [address] Performed By: #### 5 8410-2 ####[facility] LABORATORYCLIA [id number] [address] [place] Hemoglobin (Bld) [Mass/Vol] 11.9 g/dL Low 13.0-17.0 [facility] Comment on above: Order Comment: Speci men Type: BLOOD SPECIMENOrdering Facility: [facility] Address: [address] [place] [address] Performed By: #### 5 8410-2 ####[facility] LABORATORYCLIA [id number] [address] MCH (RBC) [Entitic mass] 29.5 pg Normal 26.0-34.0 [facility] Comment on above: Order Comment: Speci men Type: BLOOD SPECIMENOrdering Facility: [facility] Address: [address] [place] [address] Performed By: #### 5 8410-2 ####[facility] LABORATORYCLIA [id number] [address] [place] MCHC (RBC) [Mass/Vol] 31.6 g/dL Normal 30.5-36.0 [facility] Comment on above: Order Comment: Speci men Type: BLOOD SPECIMENOrdering Facility: [facility] Address: [address] [place] [address] Performed By: #### 5 8410-2 ####VAL[facility] LABORATORYCLIA [id number] [address] MCV (RBC) [Entitic vol] 93.5 fL Normal 80.0-100.0 [facility] Comment on above: Order Comment: Speci men Type: BLOOD SPECIMENOrdering Facility: [facility] Address: [address] [place] [address] Performed By: #### 5 8410-2 ####[facility] LABORATORYCLIA [id number] [address] Nucleated RBC (Bld) [#/Vol] 10*3/uL Normal <0.01 [facility] Comment on above: Order Comment: Speci men Type: BLOOD SPECIMENOrdering Facility: [facility] Address: [address] [place] [address] Performed By: #### 5 8410-2 ####[facility] LABORATORYCLIA [id number] [address] Platelet mean volume (Bld) [Entitic vol] 11.1 fL Normal 9.0-12.7 [facility] Comment on above: Order Comment: Speci men Type: BLOOD SPECIMENOrdering Facility: [facility] Address: [address] [place] [address] Performed By: #### 5 8410-2 ####VALLE[facility]LL[facility] LABORATORYCLIA [id number] [place], [place] [id number] [place] [address] [place] Platelets (Bld) [#/Vol] 171 10*3/uL Normal 150-400 [facility] Comment on above: Order Comment: Speci men Type: BLOOD SPECIMENOrdering Facility: [facility] Address: [address] [place] [address] Performed By: #### 5 8410-2 ####[facility] LABORATORYCLIA [id number] [place] [address] [place] RBC (Bld) [#/Vol] 4.03 10*6/uL Low 4.20-6.00 [facility] Comment on above: Order Comment: Speci men Type: BLOOD SPECIMENOrdering Facility: [facility] Address: [address] [place] [address] Performed By: #### 5 8410-2 ####[facility] LABORATORYCLIA [id number] [place] [address] [place] WBC (Bld) [#/Vol] 13.26 10*3/uL High 3.70-11.00 [facility] Comment on above: Order Comment: Speci men Type: BLOOD SPECIMENOrdering Facility: [facility] Address: [address] [place] [address] Performed By: #### 5 8410-2 ####[facility] LABORATORYCLIA [id number] [place] [address] [place] CONSULTon 05-08-2024 CONSULT Normal [facility] CONSULT PROGon 05-08-2024 CONSULT PROG Normal [facility] CONSULT PROG [facility] HBV surface Ag Ser Qlon 10-0 HBV surface Ag Ql (S) Negative Normal Negative [facility] Comment on above: Order Comment: Speci men Type: BLOOD SPECIMENOrdering Facility: [facility] Address: [address] [place] [address] Performed By: #### 5 195-3 ####[facility] LABCLIA [id number] [facility] [id number] [address] [place] Magnesium SerPl-mCncon 05-08 Magnesium [Mass/Vol] 1.9 mg/dL Normal 1.7-2.3 [facility] Comment on above: Order Comment: Speci men Type: BLOOD SPECIMENOrdering Facility: [facility] Address: [address] [place] [address] Performed By: #### 2 4321-2, 27523-1 ####[facility] LABORATORYCLIA [id number] [place] [address] [place] NUTRITIONon 05-08-2024 NUTRITION Normal [facility] THERAPY NTon 05-08-2024 THERAPY NT Normal [facility] BRIEF OP NOTon 05-07-2024 BRIEF OP NOT [facility] Basic metabolic 2000 panelon 05-07-2024 Anion gap [Moles/Vol] 7 mmol/L Low 8-15 [facility] Comment on above: Order Comment: Speci men Type: BLOOD SPECIMENOrdering Facility: [facility] Address: [address] [place] [address] Performed By: #### 2 4321-2 ####[facility] LABORATORYCLIA [id number] [place] [id number] [place] Calcium [Mass/Vol] 9.1 mg/dL Normal 8.5-10.2 [facility] Comment on above: Order Comment: Speci men Type: BLOOD SPECIMENOrdering Facility: [facility] Address: [address] [place] [address] Performed By: #### 2 4321-2 ####[facility] LABORATORYCLIA [id number] [place] [id number] [place] Chloride [Moles/Vol] 95 mmol/L Low 98-107 [facility] Comment on above: Order Comment: Speci men Type: BLOOD SPECIMENOrdering Facility: [facility] Address: [address] [place] [address] Performed By: #### 2 4321-2 ####VALLE[facility]LL[facility] LABORATORYCLIA [id number] [place] [id number] [place] CO2 [Moles/Vol] 26 mmol/L Normal 22-30 [facility] Comment on above: Order Comment: Speci men Type: BLOOD SPECIMENOrdering Facility: [facility] Address: [address] [place] [address] Performed By: #### 2 4321-2 ####VALLECILL[facility] LABORATORYCLIA [id number] [place] [id number] [place] Creatinine [Mass/Vol] 4.37 mg/dL High 0.73-1.22 [facility] Comment on above: Order Comment: Alise montejo Type: BLOOD SPECIMENOrdering Facility: [facility] Address: [address] [place] [address] Performed By: #### 2 4321-2 ####VALLE[facility]LL[facility] LABORATORYCLIA [id number] [address] Creatinine and Glomerular filtration rate.predicted panel (S/P/Bld) 13 mL/min/1.73m??? Low >=60 [facility] Comment on above: Order Comment: Alise montejo Type: BLOOD SPECIMENOrdering Facility: [facility] Address: [address] [place] [address] Result Comment: Anupama mated Glomerular Filtration Rate (eGFR) is calculated using the 2020 CKD-EPI creatinine equation. This equation utilizes serum creatinine, sex, and age as parameters. The creatinine assay has traceable calibration to isotope dilution-mass spectrometry. Refer to KDIGO guidelines for clinical interpretation. In patients with unstable renal function, e.g. those with acute kidney injury, the eGFR may not accurately reflect actual GFR. Performed By: #### 2 4321-2 ####VAL[facility] LABORATORYCLIA [id number] [address] [place] Glucose [Mass/Vol] 285 mg/dL High 74-99 [facility] Comment on above: Order Comment: Alise montejo Type: BLOOD SPECIMENOrdering Facility: [facility] Address: [address] [place] [address] Result Comment: The [place] Diabetes [employer] (ADA) provides guidance for cutoff values for fasting glucose and random glucose. The ADA defines fasting as no caloric intake for at least 8 hours. Fasting plasma glucose results between 100 to 125 mg/dL indicate increased risk for diabetes (prediabetes).Fasting plasma glucose results greater than or equal to 126 mg/dL meet the criteria for diagnosis of diabetes. In the absence of unequivocal hyperglycemia, results should be confirmed by repeat testing. In a patient with classic symptoms of hyperglycemia or hyperglycemic crisis, random plasma glucose results greater than or equal to 200 mg/dL meet the criteria for diagnosis of diabetes.Reference: Standards of Medical Care in Diabetes 2016, [place] [employer]. Diabetes Care. 2016.39(Suppl 1). Performed By: #### 2 4321-2 ####[facility] LABORATORYCLIA [id number] [address] STATES [facility] Potassium [Moles/Vol] 5.4 mmol/L High 3.7-5.1 [facility] Comment on above: Order Comment: Speci men Type: BLOOD SPECIMENOrdering Facility: [facility] Address: [address] [place] [address] Performed By: #### 2 4321-2 ####[facility]LE[facility]O LABORATORYCLIA [id number] [address] Sodium [Moles/Vol] 128 mmol/L Low 136-144 [facility] Comment on above: Order Comment: Speci men Type: BLOOD SPECIMENOrdering Facility: [facility] Address: [address] [place] [address] Performed By: #### 2 4321-2 ####VALLE[facility]LLO LABORATORYCLIA [id number] [address] STATES [facility] Urea nitrogen [Mass/Vol] 35 mg/dL High 9-24 [facility] Comment on above: Order Comment: Alishai men Type: BLOOD SPECIMENOrdering Facility: [facility] Address: [address] [place] [address] Performed By: #### 2 4321-2 ####VALLECILLO LABORATORYCLIA [id number] [address] OF [facility] CASE MANAGEMon 05-07-2024 CASE MANAGEM Normal [facility] CBC panel Auto (Bld)on 05-07 Erythrocyte distribution width (RBC) [Ratio] 15.6 % High 11.5-15.0 [facility] Comment on above: Order Comment: Speci men Type: BLOOD SPECIMENOrdering Facility: [facility] Address: [address] [place] [address] Performed By: #### 5 8410-2 ####VALLECILLO LABORATORYCLIA [id number] [address] Hematocrit (Bld) [Volume fraction] 37.7 % Low 39.0-51.0 [facility] Comment on above: Order Comment: Speci men Type: BLOOD SPECIMENOrdering Facility: [facility] Address: [address] [place] [address] Performed By: #### 5 8410-2 ####VALLECILLO LABORATORYCLIA [id number] [address] OF [place] Hemoglobin (Bld) [Mass/Vol] 12.0 g/dL Low 13.0-17.0 [facility] Comment on above: Order Comment: Speci men Type: BLOOD SPECIMENOrdering Facility: [facility] Address: [address] [place] [address] Performed By: #### 5 8410-2 ####VALLECILLO LABORATORYCLIA [id number] [address] MCH (RBC) [Entitic mass] 29.6 pg Normal 26.0-34.0 [facility] Comment on above: Order Comment: Speci men Type: BLOOD SPECIMENOrdering Facility: [facility] Address: [address] [place] [address] Performed By: #### 5 8410-2 ####VALLECILLO LABORATORYCLIA [id number] [address] MCHC (RBC) [Mass/Vol] 31.8 g/dL Normal 30.5-36.0 [facility] Comment on above: Order Comment: Speci men Type: BLOOD SPECIMENOrdering Facility: [facility] Address: [address] [place] [address] Performed By: #### 5 8410-2 ####VALLECILLO LABORATORYCLIA [id number] [address] MCV (RBC) [Entitic vol] 93.1 fL Normal 80.0-100.0 [facility] Comment on above: Order Comment: Speci men Type: BLOOD SPECIMENOrdering Facility: [facility] Address: [address] [place] [address] Performed By: #### 5 8410-2 ####VALLECILLO LABORATORYCLIA [id number] [address] [place] Nucleated RBC (Bld) [#/Vol] 10*3/uL Normal <0.01 [facility] Comment on above: Order Comment: Speci men Type: BLOOD SPECIMENOrdering Facility: [facility] Address: [address] [place] [address] Performed By: #### 5 8410-2 ####VALLECILLO LABORATORYCLIA [id number] [address] OF [place] Platelet mean volume (Bld) [Entitic vol] 10.8 fL Normal 9.0-12.7 [facility] Comment on above: Order Comment: Speci men Type: BLOOD SPECIMENOrdering Facility: [facility] Address: [address] [place] [address] Performed By: #### 5 8410-2 ####VALLECILLO LABORATORYCLIA [id number] [address] Platelets (Bld) [#/Vol] 121 10*3/uL Low 150-400 [facility] Comment on above: Order Comment: Speci men Type: BLOOD SPECIMENOrdering Facility: [facility] Address: [address] [place] [address] Result Comment: No c lot detected. Performed By: #### 5 8410-2 ####VALLECILLO LABORATORYCLIA [id number] [address] RBC (Bld) [#/Vol] 4.05 10*6/uL Low 4.20-6.00 [facility] Comment on above: Order Comment: Speci men Type: BLOOD SPECIMENOrdering Facility: [facility] Address: [address] [place] [address] Performed By: #### 5 8410-2 ####VALLECILLO LABORATORYCLIA [id number] [address] OF [place] WBC (Bld) [#/Vol] 6.36 10*3/uL Normal 3.70-11.00 [facility] Comment on above: Order Comment: Alise montejo Type: BLOOD SPECIMENOrdering Facility: [facility] Address: [address] [place] [address] Performed By: #### 5 8410-2 ####[facility] OAK LABORATORYCLIA [id number] [place] [address] [place] CONSULT PROGon 05-07-2024 CONSULT PROG Normal [facility] CONSULT PROG Normal [facility] CONSULT PROG Normal [facility] ECG COMPLETEon 05-07-2024 ECG COMPLETE Normal [facility] LDH SerPl-cCncon 05-07-2024 LDH [Catalytic activity/Vol] 277 U/L High 135-225 [facility] Comment on above: Order Comment: Alise montejo Type: BLOOD SPECIMENOrdering Facility: [facility] Address: [address] [place] [address] Result Comment: Hemo lysis present. The origin of the hemolysis, in vitro versus an in vivo hemolytic process, cannot be distinguished via this assay alone. In vitro hemolysis may lead to non-physiological (spurious) elevation in lactate dehydrogenase (LDH) results. Theresult should be interpreted in context of the clinical setting and other test results. Suggest reorder as clinically indicated. Performed By: #### 2 532-0 ####[facility] LABCLIA [id number] [facility] [id number] V[place] [id number] [place] NURSING PROGon 05-07-2024 NURSING PROG Normal [facility] Prot SerPl-mCncon 05-07-2024 Protein [Mass/Vol] 7.1 g/dL Normal 6.3-8.0 [facility] Comment on above: Order Comment: Alise montejo Type: BLOOD SPECIMENOrdering Facility: [facility] Address: [address] [place] [address] Performed By: #### 2 885-2 ####[facility] O[facility] LABORATORYCLIA [id number] [place] [address] [place] US CHEST EFFUSION SURVEYon 1 US CHEST EFFUSION SURVEY Normal [facility] US THORACENTESIS BIon 2023 US THORACENTESIS BI Normal [facility] XR CHEST 1V FRONTALon 2023 XR CHEST 1V FRONTAL Normal [facility] ALLIED HEALTHon 05-06-2024 ALLIED HEALTH Normal [facility] Basic metabolic 2000 panelon 05-06-2024 Anion gap [Moles/Vol] 8 mmol/L Normal 8-15 [facility] Comment on above: Order Comment: Speci men Type: BLOOD SPECIMENOrdering Facility: [facility] Address: [address] [place] [address] Performed By: #### 2 4321-2 ####VALLECILL[facility] LABORATORYCLIA [id number] [place] [address] [place] Calcium [Mass/Vol] 8.5 mg/dL Normal 8.5-10.2 [facility] Comment on above: Order Comment: Speci men Type: BLOOD SPECIMENOrdering Facility: [facility] Address: [address] [place] [address] Performed By: #### 2 4321-2 ####VALLECILL[facility] LABORATORYCLIA [id number] [place] [address] [place] Chloride [Moles/Vol] 100 mmol/L Normal 98-107 [facility] Comment on above: Order Comment: Speci men Type: BLOOD SPECIMENOrdering Facility: [facility] Address: [address] [place] [address] Performed By: #### 2 4321-2 ####VALLECILLO LABORATORYCLIA [id number] [place] [address] [place] CO2 [Moles/Vol] 27 mmol/L Normal 22-30 [facility] Comment on above: Order Comment: Speci men Type: BLOOD SPECIMENOrdering Facility: [facility] Address: [address] [place] [address] Performed By: #### 2 4321-2 ####VALLECILLO LABORATORYCLIA [id number] [place] [address] [place] Creatinine [Mass/Vol] 3.94 mg/dL High 0.73-1.22 [facility] Comment on above: Order Comment: Speci men Type: BLOOD SPECIMENOrdering Facility: [facility] Address: [address] [place] [address] Performed By: #### 2 4321-2 ####RO[facility] OAK LABORATORYCLIA [id number] [place] [address] [place] Creatinine and Glomerular filtration rate.predicted panel (S/P/Bld) 15 mL/min/1.73m??? Low >=60 [facility] Comment on above: Order Comment: Alise montejo Type: BLOOD SPECIMENOrdering Facility: [facility] Address: [address] [place] [address] Result Comment: Anupama mated Glomerular Filtration Rate (eGFR) is calculated using the 2020 CKD-EPI creatinine equation. This equation utilizes serum creatinine, sex, and age as parameters. The creatinine assay has traceable calibration to isotope dilution-mass spectrometry. Refer to KDIGO guidelines for clinical interpretation. In patients with unstable renal function, e.g. those with acute kidney injury, the eGFR may not accurately reflect actual GFR. Performed By: #### 2 4321-2 ####RO[facility] O[facility] LABORATORYCLIA [id number] [place] [id number] [place] Glucose [Mass/Vol] 127 mg/dL High 74-99 [facility] Comment on above: Order Comment: Alise montejo Type: BLOOD SPECIMENOrdering Facility: [facility] Address: [address] [place] [address] Result Comment: The [place] Diabetes Association (ADA) provides guidance for cutoff values for fasting glucose and random glucose. The ADA defines fasting as no caloric intake for at least 8 hours. Fasting plasma glucose results between 100 to 125 mg/dL indicate increased risk for diabetes (prediabetes).Fasting plasma glucose results greater than or equal to 126 mg/dL meet the criteria for diagnosis of diabetes. In the absence of unequivocal hyperglycemia, results should be confirmed by repeat testing. In a patient with classic symptoms of hyperglycemia or hyperglycemic crisis, random plasma glucose results greater than or equal to 200 mg/dL meet the criteria for diagnosis of diabetes.Reference: Standards of Medical Care in Diabetes 2016, [place] [employer]. Diabetes Care. 2016.39(Suppl 1). Performed By: #### 2 4321-2 ####[facility] O[facility] LABORATORYCLIA [id number] [place] [address] [place] Potassium [Moles/Vol] 4.3 mmol/L Normal 3.7-5.1 [facility] Comment on above: Order Comment: Speci men Type: BLOOD SPECIMENOrdering Facility: [facility] Address: [address] [place] [address] Performed By: #### 2 4321-2 ####VALLECILLO LABORATORYCLIA [id number] [place] [address] [place] Sodium [Moles/Vol] 135 mmol/L Low 136-144 [facility] Comment on above: Order Comment: Speci men Type: BLOOD SPECIMENOrdering Facility: [facility] Address: [address] [place] [address] Performed By: #### 2 4321-2 ####VALLECILLO LABORATORYCLIA [id number] [place] [address] [place] Urea nitrogen [Mass/Vol] 25 mg/dL High 9-24 [facility] Comment on above: Order Comment: Speci men Type: BLOOD SPECIMENOrdering Facility: [facility] Address: [address] [place] [address] Performed By: #### 2 4321-2 ####VALLECILLO LABORATORYCLIA [id number] [address] [place] CASE MGT INIT ASSon 2023 CASE MGT INIT [facility] CBC panel Auto (Bld)on 05-06 Erythrocyte distribution width (RBC) [Ratio] 16.0 % High 11.5-15.0 [facility] Comment on above: Order Comment: Speci men Type: BLOOD SPECIMENOrdering Facility: [facility] Address: [address] [place] [address] Performed By: #### 5 8410-2 ####VALLECILLO LABORATORYCLIA [id number] [address] [place] Hematocrit (Bld) [Volume fraction] 35.6 % Low 39.0-51.0 [facility] Comment on above: Order Comment: Speci men Type: BLOOD SPECIMENOrdering Facility: [facility] Address: [address] [place] [address] Performed By: #### 5 8410-2 ####VALLECILLO LABORATORYCLIA [id number] [address] OF [place] Hemoglobin (Bld) [Mass/Vol] 11.2 g/dL Low 13.0-17.0 [facility] Comment on above: Order Comment: Speci men Type: BLOOD SPECIMENOrdering Facility: [facility] Address: [address] [place] [address] Performed By: #### 5 8410-2 ####VALLECILLO LABORATORYCLIA [id number] [address] [place] MCH (RBC) [Entitic mass] 29.6 pg Normal 26.0-34.0 [facility] Comment on above: Order Comment: Speci men Type: BLOOD SPECIMENOrdering Facility: [facility] Address: [address] [place] [address] Performed By: #### 5 8410-2 ####VALLECILLO LABORATORYCLIA [id number] [address] MCHC (RBC) [Mass/Vol] 31.5 g/dL Normal 30.5-36.0 [facility] Comment on above: Order Comment: Speci men Type: BLOOD SPECIMENOrdering Facility: [facility] Address: [address] [place] [address] Performed By: #### 5 8410-2 ####VALLECILLO LABORATORYCLIA [id number] [address] MCV (RBC) [Entitic vol] 94.2 fL Normal 80.0-100.0 [facility] Comment on above: Order Comment: Speci men Type: BLOOD SPECIMENOrdering Facility: [facility] Address: [address] [place] [address] Performed By: #### 5 8410-2 ####VALLECILLO LABORATORYCLIA [id number] [address] Nucleated RBC (Bld) [#/Vol] 10*3/uL Normal <0.01 [facility] Comment on above: Order Comment: Speci men Type: BLOOD SPECIMENOrdering Facility: [facility] Address: [address] [place] [address] Performed By: #### 5 8410-2 ####VALLECILLO LABORATORYCLIA [id number] [place] [address] [place] Platelet mean volume (Bld) [Entitic vol] 11.4 fL Normal 9.0-12.7 [facility] Comment on above: Order Comment: Speci men Type: BLOOD SPECIMENOrdering Facility: [facility] Address: [address] [place] [address] Performed By: #### 5 8410-2 ####VALLE[facility]LL[facility] LABORATORYCLIA [id number] [place] [address] [place] Platelets (Bld) [#/Vol] 105 10*3/uL Low 150-400 [facility] Comment on above: Order Comment: Speci men Type: BLOOD SPECIMENOrdering Facility: [facility] Address: [address] [place] [address] Result Comment: No c lot detected. Performed By: #### 5 8410-2 ####VALLECILL[facility] LABORATORYCLIA [id number] [place] [address] [place] RBC (Bld) [#/Vol] 3.78 10*6/uL Low 4.20-6.00 [facility] Comment on above: Order Comment: Speci men Type: BLOOD SPECIMENOrdering Facility: [facility] Address: [address] [place] [address] Performed By: #### 5 8410-2 ####VALLECILLO LABORATORYCLIA [id number] [place] [address] [place] WBC (Bld) [#/Vol] 5.55 10*3/uL Normal 3.70-11.00 [facility] Comment on above: Order Comment: Speci men Type: BLOOD SPECIMENOrdering Facility: [facility] Address: [address] [place] [address] Performed By: #### 5 8410-2 ####VALLECILLO LABORATORYCLIA [id number] [address] OF [place] CONSULTon 05-06-2024 CONSULT Normal [facility] CONSULT PROGon 05-06-2024 CONSULT PROG Normal [facility] CONSULT PROG Normal [facility] ECG COMPLETEon 05-06-2024 ECG COMPLETE Normal [facility] NM LUNG VENT / PERF VQon NM LUNG VENT / PERF VQ Normal [facility] NURSING PROGon 05-06-2024 NURSING PROG Normal [facility] PT panel Coag (PPP)on 2023 INR Coag (PPP) [Relative time] 1.0 {INR} Normal 0.9-1.3 [facility] Comment on above: Order Comment: Alise montejo Type: BLOOD SPECIMENOrdering Facility: [facility] Address: [address] [place] [address] Result Comment: Princess min K Antagonist (VKA) Therapeutic Range: INR 2 to 3 (Target INR of 2.5)Note: For patients treated with VKA drugs, such as warfarin, the [place] [employer] 2012 Guideline recommends a therapeutic INR range of 2 to 3 (target INR of 2.5). This recommendation includes high-risk patients with antiphospholipid syndrome with previous arterial or venous thromboembolism, current-generation mechanical or bioprosthetic aortic heart valve replacement.Note: Patients with mechanical aortic valve replacement and additional risk factors for thromboembolic events (atrial fibrillation, previous thromboembolism, LV dysfunction, hypercoagulable conditions) or an older generation mechanical AVR (i.e., ball in-Cage) or any mechanical MVR should have a INR therapeutic range of 2.5 to 3.5 (target INR of 3).Thien RAMON, et al. Chest 2012, 141:7S-47SRogelio RA, et al. [facility] 2017, 70: 252-289 Performed By: #### 3 4528-0 ####[facility] LABORATORYCLIA [id number] [place] [address] [place] PT Coag (PPP) [Time] 10.5 s Normal 9.7-13.0 [facility] Comment on above: Order Comment: Alise montejo Type: BLOOD SPECIMENOrdering Facility: [facility] Address: [address] [place] [address] Performed By: #### 3 4528-0 ####[facility] O[facility] LABORATORYCLIA [id number] [place] [id number] [place] THERAPY NTon 05-06-2024 THERAPY NT Normal [facility] THERAPY NT Normal [facility] ALLIED [facility] 05-05-2024 ALLIED HEALTH Normal [facility] ALLIED [facility] ALLIED HEALTH Normal [facility] Normal [facility] Basic metabolic 2000 panelon 05-05-2024 Anion gap [Moles/Vol] 15 mmol/L Normal 8-15 [facility] Comment on above: Order Comment: Speci men Type: BLOOD SPECIMENOrdering Facility: [facility] Address: [address] [place] [address] Performed By: #### 2 4321-2 ####VALLECILLO LABORATORYCLIA [id number] [place] [address] [place] Calcium [Mass/Vol] 9.0 mg/dL Normal 8.5-10.2 [facility] Comment on above: Order Comment: Speci men Type: BLOOD SPECIMENOrdering Facility: [facility] Address: [address] [place] [address] Performed By: #### 2 4321-2 ####VALLECILLO LABORATORYCLIA [id number] [place] [address] [place] Chloride [Moles/Vol] 96 mmol/L Low 98-107 [facility] Comment on above: Order Comment: Speci men Type: BLOOD SPECIMENOrdering Facility: [facility] Address: [address] [place] [address] Performed By: #### 2 4321-2 ####VALLECILLO LABORATORYCLIA [id number] [place] [address] [place] CO2 [Moles/Vol] 25 mmol/L Normal 22-30 [facility] Comment on above: Order Comment: Speci men Type: BLOOD SPECIMENOrdering Facility: [facility] Address: [address] [place] [address] Performed By: #### 2 4321-2 ####VALLECILLO LABORATORYCLIA [id number] [place] [address] [place] Creatinine [Mass/Vol] 4.79 mg/dL High 0.73-1.22 [facility] Comment on above: Order Comment: Speci men Type: BLOOD SPECIMENOrdering Facility: [facility] Address: [address] [place] [address] Performed By: #### 2 4321-2 ####[facility] O[facility] LABORATORYCLIA [id number] [place] [address] [place] Creatinine and Glomerular filtration rate.predicted panel (S/P/Bld) 12 mL/min/1.73m??? Low >=60 [facility] Comment on above: Order Comment: Alise montejo Type: BLOOD SPECIMENOrdering Facility: [facility] Address: [address] [place] [address] Result Comment: Anupama mated Glomerular Filtration Rate (eGFR) is calculated using the 2020 CKD-EPI creatinine equation. This equation utilizes serum creatinine, sex, and age as parameters. The creatinine assay has traceable calibration to isotope dilution-mass spectrometry. Refer to KDIGO guidelines for clinical interpretation. In patients with unstable renal function, e.g. those with acute kidney injury, the eGFR may not accurately reflect actual GFR. Performed By: #### 2 4321-2 ####[facility] LABORATORYCLIA [id number] [place] [address] [place] Glucose [Mass/Vol] 124 mg/dL High 74-99 [facility] Comment on above: Order Comment: Alise montejo Type: BLOOD SPECIMENOrdering Facility: [facility] Address: [address] [place] [address] Result Comment: The [place] [employer] (ADA) provides guidance for cutoff values for fasting glucose and random glucose. The ADA defines fasting as no caloric intake for at least 8 hours. Fasting plasma glucose results between 100 to 125 mg/dL indicate increased risk for diabetes (prediabetes).Fasting plasma glucose results greater than or equal to 126 mg/dL meet the criteria for diagnosis of diabetes. In the absence of unequivocal hyperglycemia, results should be confirmed by repeat testing. In a patient with classic symptoms of hyperglycemia or hyperglycemic crisis, random plasma glucose results greater than or equal to 200 mg/dL meet the criteria for diagnosis of diabetes.Reference: Standards of Medical Care in Diabetes 2016, [place] [employer]. Diabetes Care. 2016.39(Suppl 1). Performed By: #### 2 4321-2 ####[facility] LABORATORYCLIA [id number] [place] [id number] [place] Potassium [Moles/Vol] 4.3 mmol/L Normal 3.7-5.1 [facility] Comment on above: Order Comment: Speci men Type: BLOOD SPECIMENOrdering Facility: [facility] Address: [address] [place] [address] Performed By: #### 2 4321-2 ####VALLECILLO LABORATORYCLIA [id number] [address] [place] Sodium [Moles/Vol] 136 mmol/L Normal 136-144 [facility] Comment on above: Order Comment: Speci men Type: BLOOD SPECIMENOrdering Facility: [facility] Address: [address] [place] [address] Performed By: #### 2 4321-2 ####VALLECILLO LABORATORYCLIA [id number] [address] Urea nitrogen [Mass/Vol] 35 mg/dL High 9-24 [facility] Comment on above: Order Comment: Speci men Type: BLOOD SPECIMENOrdering Facility: [facility] Address: [address] [place] [address] Performed By: #### 2 4321-2 ####VALLE[facility]LL[facility] LABORATORYCLIA [id number] [address] CBC panel Auto (Bld)on 05-05 Erythrocyte distribution width (RBC) [Ratio] 15.9 % High 11.5-15.0 [facility] Comment on above: Order Comment: Speci men Type: BLOOD SPECIMENOrdering Facility: [facility] Address: [address] [place] [address] Performed By: #### 5 8410-2 ####VALLE[facility]LL[facility] LABORATORYCLIA [id number] [address] Hematocrit (Bld) [Volume fraction] 38.1 % Low 39.0-51.0 [facility] Comment on above: Order Comment: Speci men Type: BLOOD SPECIMENOrdering Facility: [facility] Address: [address] [place] [address] Performed By: #### 5 8410-2 ####VALLECILLO LABORATORYCLIA [id number] [address] [place] Hemoglobin (Bld) [Mass/Vol] 12.0 g/dL Low 13.0-17.0 [facility] Comment on above: Order Comment: Speci men Type: BLOOD SPECIMENOrdering Facility: [facility] Address: [address] [place] [address] Performed By: #### 5 8410-2 ####VALLECILLO LABORATORYCLIA [id number] [address] [place] MCH (RBC) [Entitic mass] 29.6 pg Normal 26.0-34.0 [facility] Comment on above: Order Comment: Speci men Type: BLOOD SPECIMENOrdering Facility: [facility] Address: [address] [place] [address] Performed By: #### 5 8410-2 ####[facility] LABORATORYCLIA [id number] [address] MCHC (RBC) [Mass/Vol] 31.5 g/dL Normal 30.5-36.0 [facility] Comment on above: Order Comment: Speci men Type: BLOOD SPECIMENOrdering Facility: [facility] Address: [address] [place] [address] Performed By: #### 5 8410-2 ####[facility]O LABORATORYCLIA [id number] [address] MCV (RBC) [Entitic vol] 94.1 fL Normal 80.0-100.0 [facility] Comment on above: Order Comment: Speci men Type: BLOOD SPECIMENOrdering Facility: [facility] Address: [address] [place] [address] Performed By: #### 5 8410-2 ####VALLE[facility]LLO LABORATORYCLIA [id number] [address] Nucleated RBC (Bld) [#/Vol] 10*3/uL Normal <0.01 [facility] Comment on above: Order Comment: Speci men Type: BLOOD SPECIMENOrdering Facility: [facility] Address: [address] [place] [address] Performed By: #### 5 8410-2 ####VALLECILLO LABORATORYCLIA [id number] [place] [address] [place] Platelet mean volume (Bld) [Entitic vol] 11.3 fL Normal 9.0-12.7 [facility] Comment on above: Order Comment: Speci men Type: BLOOD SPECIMENOrdering Facility: [facility] Address: [address] [place] [address] Performed By: #### 5 8410-2 ####VALLECILLO LABORATORYCLIA [id number] [place] [address] [place] Platelets (Bld) [#/Vol] 143 10*3/uL Low 150-400 [facility] Comment on above: Order Comment: Speci men Type: BLOOD SPECIMENOrdering Facility: [facility] Address: [address] [place] [address] Performed By: #### 5 8410-2 ####VALLECILLO LABORATORYCLIA [id number] [place] [address] [place] RBC (Bld) [#/Vol] 4.05 10*6/uL Low 4.20-6.00 [facility] Comment on above: Order Comment: Speci men Type: BLOOD SPECIMENOrdering Facility: [facility] Address: [address] [place] [address] Performed By: #### 5 8410-2 ####VALLECILLO LABORATORYCLIA [id number] [place] [address] [place] WBC (Bld) [#/Vol] 6.53 10*3/uL Normal 3.70-11.00 [facility] Comment on above: Order Comment: Speci men Type: BLOOD SPECIMENOrdering Facility: [facility] Address: [address] [place] [address] Performed By: #### 5 8410-2 ####VALLECILLO LABORATORYCLIA [id number] [place] [id number] [place] CONSULTon 05-05-2024 CONSULT Normal [facility] CONSULT Normal [facility] CONSULT Normal [facility] CONSULT PROGon 05-05-2024 CONSULT PROG Normal [facility] COPPER BLOODon 05-05-2024 Copper [Mass/Vol] 80 ug/dL Normal 70-140 [facility] Comment on above: Order Comment: Speci men Type: BLOOD SPECIMENOrdering Facility: [facility] Address: [address] [place] [id number] Result Comment: This test was developed, and its performance characteristics determined by the [facility] Department of Pathology and Laboratory Medicine. It has not been cleared or approved by the FDA. The [facility] Department of Pathology and Laboratory Medicine is regulated under CLIA as qualified to perform high-complexity testing. This test is used for clinical purposes. It should not be regarded as investigational or for research. Performed By: #### 5 763-8, COPPER ####[facility] LABCLIA [id number] [facility] [place] [address] [place] BRAIN WO IVCONon 05-05-[address] BRAIN WO IVCON Normal [facility] CT CERVICAL SPINE WO IVCONon 05-05-2024 CT CERVICAL SPINE WO IVCON Normal [facility] CT CHEST WO IVCONon 05-05-[address] CHEST WO IVCON Normal [facility] MEDICAL EMERon 05-05-2024 MEDICAL [facility] NURSING PROGon 05-05-2024 NURSING PROG [facility] THERAPY NTon 05-05-2024 THERAPY NT [facility] THERAPY NT [facility] VITAMIN B6/PYRIDOXINon 05-05 VITAMIN B6 9.3 nmol/L Low 20.0-125.0 [facility] Comment on above: Order Comment: Speci men Type: BLOOD SPECIMENOrdering Facility: [facility] Address: [address] [place] [address] Result Comment: INTE RPRETIVE INFORMATION: Vitamin B6 (Pyridoxal 5-Phosphate)Pyridoxal 5'-phosphate measured in a specimen collected followingan 8-hour or overnight fast accurately indicates vitamin G2qcjxgexsnux status. Non-fasting specimen concentration reflectsrecent vitamin intake.This test was developed and its performance characteristicsdetermined by [facility] [employer]. It has not been cleared orapproved by the [place] Food and Drug Administration. This test wasperformed in a CLIA certified laboratory and is intended forclinical purposes.Performed By: [facility] [place] [id number] Director: Ethan Tovar MD, PhDCLIA Number: [id number] Performed By: #### V ITB6 ####[facility] LABORATORIESCLIA [id number] [place] [address] XR RIB/CHST 3V AP RIB/OBL/CH ST Miguel Angel 05-05-2024 XR RIB/CHST 3V AP RIB/OBL/CHST L [facility] XR RIB/CHST 3V AP RIB/OBL/CH ST Avelino 05-05-2024 XR RIB/CHST 3V AP RIB/OBL/CHST R Normal [facility] Zinc SerPl-mCncon 05-05-2024 Zinc [Mass/Vol] 47 ug/dL Low 60-120 [facility] Comment on above: Order Comment: Speci men Type: BLOOD SPECIMENOrdering Facility: [facility] Address: [address] [place] [address] Result Comment: This test was developed, and its performance characteristics determined by the [facility] Department of Pathology and Laboratory Medicine. It has not been cleared or approved by the FDA. The [facility] Department of Pathology and Laboratory Medicine is regulated under CLIA as qualified to perform high-complexity testing. This test is used for clinical purposes. It should not be regarded as investigational or for research. Performed By: #### 5 763-8, COPPER ####[facility] LABCLIA [id number] [place] [address] [place] [facility] 05-04-2024 [facility] CBC W Auto Differential pane l (Bld)on 05-04-2024 Basophils (Bld) [#/Vol] 0.06 10*3/uL Normal <0.11 [facility] Comment on above: Order Comment: Speci men Type: BLOOD SPECIMENOrdering Facility: [facility] Address: [address] [place] [address] Performed By: #### 5 7021-8 ####[facility] LABORATORYCLIA [id number] [place], [place] [address] [place] [address] [place] Basophils/100 WBC (Bld) 0.9 % Normal [facility] Comment on above: Order Comment: Speci men Type: BLOOD SPECIMENOrdering Facility: [facility] Address: [address] [place] [address] Performed By: #### 5 7021-8 ####VALLECILLO LABORATORYCLIA [id number] [place] [address] [facility] [place] Differential cell count method Nom (Bld) Auto Normal [facility] Comment on above: Order Comment: Speci men Type: BLOOD SPECIMENOrdering Facility: [facility] Address: [address] [place] [address] Performed By: #### 5 7021-8 ####VALLECILLO LABORATORYCLIA [id number] [place] [address] [place] Eosinophils (Bld) [#/Vol] 0.29 10*3/uL Normal <0.46 [facility] Comment on above: Order Comment: Speci men Type: BLOOD SPECIMENOrdering Facility: [facility] Address: [address] [place] [address] Performed By: #### 5 7021-8 ####VALLECILLO LABORATORYCLIA [id number] [address] [place] Eosinophils/100 WBC (Bld) 4.4 % Normal [facility] Comment on above: Order Comment: Speci men Type: BLOOD SPECIMENOrdering Facility: [facility] Address: [address] [place] [address] Performed By: #### 5 7021-8 ####VALLECILLO LABORATORYCLIA [id number] [address] [place] Erythrocyte distribution width (RBC) [Ratio] 15.4 % High 11.5-15.0 [facility] Comment on above: Order Comment: Speci men Type: BLOOD SPECIMENOrdering Facility: [facility] Address: [address] [place] [address] Performed By: #### 5 7021-8 ####VALLECILLO LABORATORYCLIA [id number] [address] [place] Hematocrit (Bld) [Volume fraction] 37.8 % Low 39.0-51.0 [facility] Comment on above: Order Comment: Speci men Type: BLOOD SPECIMENOrdering Facility: [facility] Address: [address] [place] [address] Performed By: #### 5 7021-8 ####VALLECILLO LABORATORYCLIA [id number] [place] [address] [place] Hemoglobin (Bld) [Mass/Vol] 11.9 g/dL Low 13.0-17.0 [facility] Comment on above: Order Comment: Speci men Type: BLOOD SPECIMENOrdering Facility: [facility] Address: [address] [place] [address] Performed By: #### 5 7021-8 ####VALLECILLO LABORATORYCLIA [id number] [place] [address] [place] Immature granulocytes (Bld) [#/Vol] 10*3/uL Normal <0.10 [facility] Comment on above: Order Comment: Speci men Type: BLOOD SPECIMENOrdering Facility: [facility] Address: [address] [place] [address] Performed By: #### 5 7021-8 ####VALLE[facility]LLO LABORATORYCLIA [id number] [place] [address] [place] Immature granulocytes/100 WBC (Bld) 0.3 % Normal [facility] Comment on above: Order Comment: Speci men Type: BLOOD SPECIMENOrdering Facility: [facility] Address: [address] [place] [address] Performed By: #### 5 7021-8 ####VALLECILLO LABORATORYCLIA [id number] [place] [address] [place] Lymphocytes (Bld) [#/Vol] 1.05 10*3/uL Normal 1.00-4.00 [facility] Comment on above: Order Comment: Speci men Type: BLOOD SPECIMENOrdering Facility: [facility] Address: [address] [place] [address] Performed By: #### 5 7021-8 ####VALLECILLO LABORATORYCLIA [id number] [place] [address] [facility] [place] Lymphocytes/100 WBC (Bld) 15.8 % Normal [facility] Comment on above: Order Comment: Speci men Type: BLOOD SPECIMENOrdering Facility: [facility] Address: [address] [place] [address] Performed By: #### 5 7021-8 ####VALLECILLO LABORATORYCLIA [id number] [address] MCH (RBC) [Entitic mass] 29.5 pg Normal 26.0-34.0 [facility] Comment on above: Order Comment: Speci men Type: BLOOD SPECIMENOrdering Facility: [facility] Address: [address] [place] [address] Performed By: #### 5 7021-8 ####VALLE[facility]LLO LABORATORYCLIA [id number] [address] [place] MCHC (RBC) [Mass/Vol] 31.5 g/dL Normal 30.5-36.0 [facility] Comment on above: Order Comment: Speci men Type: BLOOD SPECIMENOrdering Facility: [facility] Address: [address] [place] [address] Performed By: #### 5 7021-8 ####VALLECILLO LABORATORYCLIA [id number] [address] MCV (RBC) [Entitic vol] 93.8 fL Normal 80.0-100.0 [facility] Comment on above: Order Comment: Speci men Type: BLOOD SPECIMENOrdering Facility: [facility] Address: [address] [place] [address] Performed By: #### 5 7021-8 ####VALLECILLO LABORATORYCLIA [id number] [address] [place] Monocytes (Bld) [#/Vol] 0.64 10*3/uL Normal <0.87 [facility] Comment on above: Order Comment: Speci men Type: BLOOD SPECIMENOrdering Facility: [facility] Address: [address] [place] [address] Performed By: #### 5 7021-8 ####VALLE[facility]LLO LABORATORYCLIA [id number] [address] Monocytes/100 WBC (Bld) 9.6 % Normal [facility] Comment on above: Order Comment: Speci men Type: BLOOD SPECIMENOrdering Facility: [facility] Address: [address] [place] [address] Performed By: #### 5 7021-8 ####VALLECILLO LABORATORYCLIA [id number] [address] [place] Neutrophils (Bld) [#/Vol] 4.60 10*3/uL Normal 1.45-7.50 [facility] Comment on above: Order Comment: Speci men Type: BLOOD SPECIMENOrdering Facility: [facility] Address: [address] [place] [address] Performed By: #### 5 7021-8 ####VALLE[facility]LLO LABORATORYCLIA [id number] [address] Neutrophils/100 WBC (Bld) 69.0 % Normal [facility] Comment on above: Order Comment: Speci men Type: BLOOD SPECIMENOrdering Facility: [facility] Address: [address] [place] [address] Performed By: #### 5 7021-8 ####VALLE[facility]LLO LABORATORYCLIA [id number] [place] [address] [place] Nucleated RBC (Bld) [#/Vol] 10*3/uL Normal <0.01 [facility] Comment on above: Order Comment: Speci men Type: BLOOD SPECIMENOrdering Facility: [facility] Address: [address] [place] [address] Performed By: #### 5 7021-8 ####VALLE[facility]LLO LABORATORYCLIA [id number] [address] Nucleated RBC/100 WBC (Bld) [Ratio] 0.0 /100 WBC Normal [facility] Comment on above: Order Comment: Speci men Type: BLOOD SPECIMENOrdering Facility: [facility] Address: [address] [place] [address] Performed By: #### 5 7021-8 ####VALLECILLO LABORATORYCLIA [id number] [place] [address] [place] Platelet mean volume (Bld) [Entitic vol] 10.2 fL Normal 9.0-12.7 [facility] Comment on above: Order Comment: Speci men Type: BLOOD SPECIMENOrdering Facility: [facility] Address: [address] [place] [address] Performed By: #### 5 7021-8 ####VALLE[facility]LLO LABORATORYCLIA [id number] [address] [place] Platelets (Bld) [#/Vol] 124 10*3/uL Low 150-400 [facility] Comment on above: Order Comment: Speci men Type: BLOOD SPECIMENOrdering Facility: [facility] Address: [address] [place] [address] Result Comment: No c lot detected. Performed By: #### 5 7021-8 ####[facility] LABORATORYCLIA [id number] [place] [address] [place] RBC (Bld) [#/Vol] 4.03 10*6/uL Low 4.20-6.00 [facility] Comment on above: Order Comment: Speci men Type: BLOOD SPECIMENOrdering Facility: [facility] Address: [address] [place] [address] Performed By: #### 5 7021-8 ####VAL[facility] LABORATORYCLIA [id number] [address] [place] WBC (Bld) [#/Vol] 6.66 10*3/uL Normal 3.70-11.00 [facility] Comment on above: Order Comment: Speci men Type: BLOOD SPECIMENOrdering Facility: [facility] Address: [address] [place] [address] Performed By: #### 5 7021-8 ####VAL[facility] LABORATORYCLIA [id number] [address] [place] CONSULTon 05-04-2024 CONSULT Normal [facility] CT ABD/PEL WO IVCONon 2023 CT ABD/PEL WO IVCON Normal [facility] Comprehensive metabolic 2000 panelon 05-04-2024 Albumin [Mass/Vol] 4.1 g/dL Normal 3.9-4.9 [facility] Comment on above: Order Comment: Speci men Type: BLOOD SPECIMENOrdering Facility: [facility] Address: [address] [place], [place] [address] [address] Performed By: #### 1 9123-9, 30279-5, 2776- ####VAL[facility] LABORATORYCLIA [id number] [place] [address] [place] ALP [Catalytic activity/Vol] 87 U/L Normal 38-113 [facility] Comment on above: Order Comment: Speci men Type: BLOOD SPECIMENOrdering Facility: [facility] Address: [address] [place] [address] Performed By: #### 1 9123-9, 27691-2, 2776- ####[facility] LABORATORYCLIA [id number] [address] ALT [Catalytic activity/Vol] 12 U/L Normal 10-54 [facility] Comment on above: Order Comment: Speci men Type: BLOOD SPECIMENOrdering Facility: [facility] Address: [facility] [place] [address] Performed By: #### 1 9123-9, 56300-5, 2776- ####VAL[facility]LLO LABORATORYCLIA [id number] [address] STATES [facility] Anion gap [Moles/Vol] 11 mmol/L Normal 8-15 [facility] Comment on above: Order Comment: Speci men Type: BLOOD SPECIMENOrdering Facility: [facility] Address: [facility] [place] [address] Performed By: #### 1 9123-9, 32334-7, 2776- ####[facility] LABORATORYCLIA [id number] [address] AST [Catalytic activity/Vol] 18 U/L Normal 14-40 [facility] Comment on above: Order Comment: Speci men Type: BLOOD SPECIMENOrdering Facility: [facility] Address: [address] [place] [address] Performed By: #### 1 9123-9, 14974-5, 2776- ####[facility] LABORATORYCLIA [id number] [place] [address] [place] Bilirubin [Mass/Vol] 0.4 mg/dL Normal 0.2-1.3 [facility] Comment on above: Order Comment: Speci men Type: BLOOD SPECIMENOrdering Facility: [facility] Address: [address] [place] [address] Performed By: #### 1 9123-9, 41326-9, 2776- ####[facility] LABORATORYCLIA [id number] [place] [address] [place] Calcium [Mass/Vol] 9.3 mg/dL Normal 8.5-10.2 [facility] Comment on above: Order Comment: Speci men Type: BLOOD SPECIMENOrdering Facility: [facility] Address: [address] [place] [address] Performed By: #### 1 9123-9, 81643-2, 2776-08 ####VAL[facility] LABORATORYCLIA [id number] [place] [address] [place] Chloride [Moles/Vol] 97 mmol/L Low 98-107 [facility] Comment on above: Order Comment: Speci men Type: BLOOD SPECIMENOrdering Facility: [facility] Address: [address] [place] [address] Performed By: #### 1 9123-9, 86958-7, 2776-08 ####VAL[facility] LABORATORYCLIA [id number] [place] [address] [place] CO2 [Moles/Vol] 31 mmol/L High 22-30 [facility] Comment on above: Order Comment: Speci men Type: BLOOD SPECIMENOrdering Facility: [facility] Address: [address] [place] [address] Performed By: #### 1 9123-9, 62886-8, 2776- ####VAL[facility] LABORATORYCLIA [id number] [place] [address] [place] Creatinine [Mass/Vol] 4.37 mg/dL High 0.73-1.22 [facility] Comment on above: Order Comment: Speci men Type: BLOOD SPECIMENOrdering Facility: [facility] Address: [address] [place] [address] Performed By: #### 1 9123-9, 04662-8, 2776-08 ####VAL[facility] LABORATORYCLIA [id number] [place] [address] [place] Creatinine and Glomerular filtration rate.predicted panel (S/P/Bld) 13 mL/min/1.73m??? Low >=60 [facility] Comment on above: Order Comment: Alise montejo Type: BLOOD SPECIMENOrdering Facility: [facility] Address: [address] [place] [address] Result Comment: Anupama mated Glomerular Filtration Rate (eGFR) is calculated using the 2020 CKD-EPI creatinine equation. This equation utilizes serum creatinine, sex, and age as parameters. The creatinine assay has traceable calibration to isotope dilution-mass spectrometry. Refer to KDIGO guidelines for clinical interpretation. In patients with unstable renal function, e.g. those with acute kidney injury, the eGFR may not accurately reflect actual GFR. Performed By: #### 1 9123-9, 75535-6, 2776-08 ####[facility] LABORATORYCLIA [id number] [place] [id number] [place] Glucose [Mass/Vol] 94 mg/dL Normal 74-99 [facility] Comment on above: Order Comment: Alise montejo Type: BLOOD SPECIMENOrdering Facility: [facility] Address: [address] [place] [address] Result Comment: The [place] Diabetes Association (ADA) provides guidance for cutoff values for fasting glucose and random glucose. The ADA defines fasting as no caloric intake for at least 8 hours. Fasting plasma glucose results between 100 to 125 mg/dL indicate increased risk for diabetes (prediabetes).Fasting plasma glucose results greater than or equal to 126 mg/dL meet the criteria for diagnosis of diabetes. In the absence of unequivocal hyperglycemia, results should be confirmed by repeat testing. In a patient with classic symptoms of hyperglycemia or hyperglycemic crisis, random plasma glucose results greater than or equal to 200 mg/dL meet the criteria for diagnosis of diabetes.Reference: Standards of Medical Care in Diabetes 2016, [place] [employer] Association. Diabetes Care. 2016.39(Suppl 1). Performed By: #### 1 9123-9, 36779-1, 2777- ####[facility] LABORATORYCLIA [id number] [place] [address] [place] Potassium [Moles/Vol] 4.0 mmol/L Normal 3.7-5.1 [facility] Comment on above: Order Comment: Speci men Type: BLOOD SPECIMENOrdering Facility: [facility] Address: [address] [place] [address] Performed By: #### 1 9123-9, 43965-9, 7-1 ####[facility] LABORATORYCLIA [id number] [place] [address] [place] Protein [Mass/Vol] 6.9 g/dL Normal 6.3-8.0 [facility] Comment on above: Order Comment: Speci men Type: BLOOD SPECIMENOrdering Facility: [facility] Address: [address] [place] [address] Performed By: #### 1 9123-9, 95817-3, 2776- ####[facility] LABORATORYCLIA [id number] [address] Sodium [Moles/Vol] 139 mmol/L Normal 136-144 [facility] Comment on above: Order Comment: Speci men Type: BLOOD SPECIMENOrdering Facility: [facility] Address: [address] [place] [address] Performed By: #### 1 9123-9, 30539-5, 2776- ####[facility] LABORATORYCLIA [id number] [address] [place] Urea nitrogen [Mass/Vol] 27 mg/dL High 9-24 [facility] Comment on above: Order Comment: Speci men Type: BLOOD SPECIMENOrdering Facility: [facility] Address: [address] [place] [address] Performed By: #### 1 9123-9, 23334-8, 277-1 ####[facility] LABORATORYCLIA [id number] [place] [address] [place] ECG COMPLETEon 05-04-2024 ECG COMPLETE Normal [facility] ED NOTEon 05-04-2024 ED NOTE HNO ID: [id number] Author: AALIYAH VASQUEZ RN Service: Nursing Author Type: Registered Nurse Type: ED Notes Filed: 05/04/2024 07:12 Note Text: Report from LINA Paniagua. Pt resting in room. Dr. Clinton at bedside. Normal [facility] ED PROV NOTEon 05-04-2024 ED PROV NOTE Normal [facility] HISTORY PHYSICALon HISTORY PHYSICAL Normal [facility] Magnesium [Mass/Vol] 1.9 mg/dL Normal 1.7-2.3 [facility] Comment on above: Order Comment: Speci men Type: BLOOD SPECIMENOrdering Facility: [facility] Address: [address] [place] [address] Performed By: #### 1 9123-9, 28878-7, 2777-1 ####[facility] LABORATORYCLIA [id number] [place] [id number] [place] NUTRITIONon 05-04-2024 NUTRITION Normal [facility] Phosphate [facility] [place] 05-04 Phosphate [Mass/Vol] 3.6 mg/dL Normal 2.7-4.8 [facility] Comment on above: Order Comment: Speci men Type: BLOOD SPECIMENOrdering Facility: [facility] Address: [address] [place] [address] Performed By: #### 1 9123-9, 89289-3, 2777-1 ####[facility] LABORATORYCLIA [id number] [address] [place] SEPSIS LACTATE W/ REFLEX (IN ITIAL)on 05-04-2024 Lactate [Moles/Vol] 1.0 mmol/L Normal 0.5-2.0 [facility] Comment on above: Order Comment: Speci men Type: BLOOD SPECIMENOrdering Facility: [facility] Address: [address] [place] [address] Performed By: #### S LACTR ####[facility] LABORATORYCLIA [id number] [place] [id number] [facility] [place] Urinalysis complete panel (U )on 05-04-2024 Bilirubin Ql (U) Negative Normal Negative [facility] Comment on above: Order Comment: Speci men Type: URINE SPECIMENOrdering Facility: [facility] Address: [address] [place] [address] Performed By: #### 2 4356-8 ####VALLECILLO LABORATORYCLIA [id number] [place] [address] [facility] [place] Clarity (Unsp spec) Clear Normal Clear [facility] Comment on above: Order Comment: Speci men Type: URINE SPECIMENOrdering Facility: [facility] Address: [address] [place] [address] Performed By: #### 2 4356-8 ####VALLECILLO LABORATORYCLIA [id number] [place] [id number] [place] Color (U) Yellow Normal Yellow [facility] Comment on above: Order Comment: Speci men Type: URINE SPECIMENOrdering Facility: [facility] Address: [address] [place] [address] Performed By: #### 2 4356-8 ####VALLECILLO LABORATORYCLIA [id number] [address] [place] Glucose Test strip (U) [Mass/Vol] Negative Normal Negative [facility] Comment on above: Order Comment: Speci men Type: URINE SPECIMENOrdering Facility: [facility] Address: [address] [place] [address] Performed By: #### 2 4356-8 ####VALLECILLO LABORATORYCLIA [id number] [address] [place] Hemoglobin Ql (U) Negative Normal Negative [facility] Comment on above: Order Comment: Speci men Type: URINE SPECIMENOrdering Facility: [facility] Address: [address] [place] [address] Performed By: #### 2 4356-8 ####VALLECILLO LABORATORYCLIA [id number] [place] [id number] [facility] Ketones Ql (U) Negative Normal Negative [facility] Comment on above: Order Comment: Speci men Type: URINE SPECIMENOrdering Facility: [facility] Address: [address] [place] [address] Performed By: #### 2 4356-8 ####VALLECILLO LABORATORYCLIA [id number] [address] [place] Leukocyte esterase Test strip Ql (U) Negative Normal Negative [facility] Comment on above: Order Comment: Speci men Type: URINE SPECIMENOrdering Facility: [facility] Address: [address] [place] [address] Performed By: #### 2 4356-8 ####VALLECILLO LABORATORYCLIA [id number] [place] [address] [place] Nitrite Ql (U) Negative Normal Negative [facility] Comment on above: Order Comment: Speci men Type: URINE SPECIMENOrdering Facility: [facility] Address: [address] [place] [address] Performed By: #### 2 4356-8 ####VALLECILLO LABORATORYCLIA [id number] [place] [address] [place] pH (U) 7.5 [pH] Normal 5.0-8.0 [facility] Comment on above: Order Comment: Speci men Type: URINE SPECIMENOrdering Facility: [facility] Address: [address] [place] [address] Performed By: #### 2 4356-8 ####VALLECILLO LABORATORYCLIA [id number] [place] [address] [place] Protein (U) [Mass/Vol] 3+ Abnormal Negative [facility] Comment on above: Order Comment: Speci men Type: URINE SPECIMENOrdering Facility: [facility] Address: [address] [place] [address] Performed By: #### 2 4356-8 ####VALLECILLO LABORATORYCLIA [id number] [place] [address] [place] RBC LM.HPF (Urine sed) [#/Area] 0-3 /HPF Normal 0-3 /HPF [facility] Comment on above: Order Comment: Speci men Type: URINE SPECIMENOrdering Facility: [facility] Address: [address] [place] [address] Performed By: #### 2 4356-8 ####VALLECILLO LABORATORYCLIA [id number] [place] [address] [place] Specific gravity (U) [Rel density] 1.015 Normal 1.005-1.03 0 [facility] Comment on above: Order Comment: Speci men Type: URINE SPECIMENOrdering Facility: [facility] Address: [address] [place] [address] Performed By: #### 2 4356-8 ####ROYAL OAK LABORATORYCLIA [id number] [address] Urobilinogen Ql (U) 0.2 EU/dL Normal 0.2-1.0 EU/dL [facility] Comment on above: Order Comment: Speci men Type: URINE SPECIMENOrdering Facility: [facility] Address: [address] [place] [address] Performed By: #### 2 4356-8 ####ROYAL OAK LABORATORYCLIA [id number] [address] WBC LM.HPF (Urine sed) [#/Area] 0-5 /HPF Normal 0-5 /HPF [facility] Comment on above: Order Comment: Speci men Type: URINE SPECIMENOrdering Facility: [facility] Address: [address] [place] [address] Performed By: #### 2 4356-8 ####ROYAL OAK LABORATORYCLIA [id number] [address] [place] XR CHEST 1V FRONTAL PORTon 0 05-04-2024 XR CHEST 1V FRONTAL PORT Normal [facility] ALLIED HEALTHon 05-01-2024 ALLIED HEALTH Normal [facility] ALLIED HEALTH Normal [facility] HEALTH HNO ID: [id number] Author: ROGERIO ALVES RT(R) Service: Radiology Author Type: Technologist Type: Allied Health Filed: 05/01/2024 17:25 Note Text: 17:20 - Patient in CT. Normal [facility] Basic metabolic 2000 panelon 05-01-2024 Anion gap [Moles/Vol] 8 mmol/L Normal 8-15 [facility] Comment on above: Order Comment: Speci men Type: BLOOD SPECIMENOrdering Facility: [facility] Address: [address] [place] [address] Performed By: #### 2 4321-2 ####ROYAL OAK LABORATORYCLIA [id number] [place] [address] [place] Calcium [Mass/Vol] 8.8 mg/dL Normal 8.5-10.2 [facility] Comment on above: Order Comment: Speci men Type: BLOOD SPECIMENOrdering Facility: [facility] Address: [address] [place] [address] Performed By: #### 2 4321-2 ####VALLECILLO LABORATORYCLIA [id number] [place] [address] [place] Chloride [Moles/Vol] 98 mmol/L Normal 98-107 [facility] Comment on above: Order Comment: Speci men Type: BLOOD SPECIMENOrdering Facility: [facility] Address: [address] [place] [address] Performed By: #### 2 4321-2 ####VALLECILLO LABORATORYCLIA [id number] [place] [address] [place] CO2 [Moles/Vol] 31 mmol/L High 22-30 [facility] Comment on above: Order Comment: Speci men Type: BLOOD SPECIMENOrdering Facility: [facility] Address: [address] [place] [address] Performed By: #### 2 4321-2 ####VALLECILLO LABORATORYCLIA [id number] [place] [address] [place] Creatinine [Mass/Vol] 3.28 mg/dL High 0.73-1.22 [facility] Comment on above: Order Comment: Speci men Type: BLOOD SPECIMENOrdering Facility: [facility] Address: [address] [place] [address] Performed By: #### 2 4321-2 ####VALLECILLO LABORATORYCLIA [id number] [place] [address] [place] [facility] [place] Creatinine and Glomerular filtration rate.predicted panel (S/P/Bld) 19 mL/min/1.73m??? Low >=60 [facility] Comment on above: Order Comment: Speci men Type: BLOOD SPECIMENOrdering Facility: [facility] Address: [address] [place] [address] Result Comment: Anupama mated Glomerular Filtration Rate (eGFR) is calculated using the 2020 CKD-EPI creatinine equation. This equation utilizes serum creatinine, sex, and age as parameters. The creatinine assay has traceable calibration to isotope dilution-mass spectrometry. Refer to KDIGO guidelines for clinical interpretation. In patients with unstable renal function, e.g. those with acute kidney injury, the eGFR may not accurately reflect actual GFR. Performed By: #### 2 4321-2 ####ROYAL OAK LABORATORYCLIA [id number] [place] [address] [place] Glucose [Mass/Vol] 130 mg/dL High 74-99 [facility] Comment on above: Order Comment: Alise montejo Type: BLOOD SPECIMENOrdering Facility: [facility] Address: [address] [place] [id number] Result Comment: The [place] Diabetes Association (ADA) provides guidance for cutoff values for fasting glucose and random glucose. The ADA defines fasting as no caloric intake for at least 8 hours. Fasting plasma glucose results between 100 to 125 mg/dL indicate increased risk for diabetes (prediabetes).Fasting plasma glucose results greater than or equal to 126 mg/dL meet the criteria for diagnosis of diabetes. In the absence of unequivocal hyperglycemia, results should be confirmed by repeat testing. In a patient with classic symptoms of hyperglycemia or hyperglycemic crisis, random plasma glucose results greater than or equal to 200 mg/dL meet the criteria for diagnosis of diabetes.Reference: Standards of Medical Care in Diabetes 2016, [place] [employer]. Diabetes Care. 2016.39(Suppl 1). Performed By: #### 2 4321-2 ####ROYAL OAK LABORATORYCLIA [id number] [place] [id number] [place] Potassium [Moles/Vol] 3.6 mmol/L Low 3.7-5.1 [facility] Comment on above: Order Comment: Alise montejo Type: BLOOD SPECIMENOrdering Facility: [facility] Address: [address] [place] [address] Performed By: #### 2 4321-2 ####VALLECILLO LABORATORYCLIA [id number] [place] [id number] [place] Sodium [Moles/Vol] 137 mmol/L Normal 136-144 [facility] Comment on above: Order Comment: Alise montejo Type: BLOOD SPECIMENOrdering Facility: [facility] Address: [address] [place] [id number] Performed By: #### 2 4321-2 ####VALLECILLO LABORATORYCLIA [id number] [address] STATES [facility] Urea nitrogen [Mass/Vol] 15 mg/dL Normal 9-24 [facility] Comment on above: Order Comment: Speci men Type: BLOOD SPECIMENOrdering Facility: [facility] Address: [address] [place] [address] Performed By: #### 2 4321-2 ####VALLECILLO LABORATORYCLIA [id number] [place] [address] [place] CBC W Auto Differential pane l (Bld)on 05-01-2024 Basophils (Bld) [#/Vol] 0.07 10*3/uL Normal <0.11 [facility] Comment on above: Order Comment: Speci men Type: BLOOD SPECIMENOrdering Facility: [facility] Address: [address] [place] [address] Performed By: #### 5 7021-8 ####VALLECILLO LABORATORYCLIA [id number] [address] [place] Basophils/100 WBC (Bld) 1.2 % Normal [facility] Comment on above: Order Comment: Speci men Type: BLOOD SPECIMENOrdering Facility: [facility] Address: [address] [place] [address] Performed By: #### 5 7021-8 ####VALLECILLO LABORATORYCLIA [id number] [address] Differential cell count method Nom (Bld) Auto Normal [facility] Comment on above: Order Comment: Speci men Type: BLOOD SPECIMENOrdering Facility: [facility] Address: [address] [place] [address] Performed By: #### 5 7021-8 ####VALLECILLO LABORATORYCLIA [id number] [place] [address] [place] Eosinophils (Bld) [#/Vol] 0.30 10*3/uL Normal <0.46 [facility] Comment on above: Order Comment: Speci men Type: BLOOD SPECIMENOrdering Facility: [facility] Address: [address] [place] [address] Performed By: #### 5 7021-8 ####VALLECILLO LABORATORYCLIA [id number] [address] [place] Eosinophils/100 WBC (Bld) 5.2 % Normal [facility] Comment on above: Order Comment: Speci men Type: BLOOD SPECIMENOrdering Facility: [facility] Address: [address] [place] [address] Performed By: #### 5 7021-8 ####VALLECILLO LABORATORYCLIA [id number] [address] [place] Erythrocyte distribution width (RBC) [Ratio] 15.7 % High 11.5-15.0 [facility] Comment on above: Order Comment: Speci men Type: BLOOD SPECIMENOrdering Facility: [facility] Address: [address] [place] [address] Performed By: #### 5 7021-8 ####VALLECILLO LABORATORYCLIA [id number] [address] [place] Hematocrit (Bld) [Volume fraction] 38.6 % Low 39.0-51.0 [facility] Comment on above: Order Comment: Speci men Type: BLOOD SPECIMENOrdering Facility: [facility] Address: [address] [place] [address] Performed By: #### 5 7021-8 ####VALLECILLO LABORATORYCLIA [id number] [address] [place] Hemoglobin (Bld) [Mass/Vol] 12.3 g/dL Low 13.0-17.0 [facility] Comment on above: Order Comment: Speci men Type: BLOOD SPECIMENOrdering Facility: [facility] Address: [address] [place] [address] Performed By: #### 5 7021-8 ####VALLECILLO LABORATORYCLIA [id number] [address] [place] Immature granulocytes (Bld) [#/Vol] 10*3/uL Normal <0.10 [facility] Comment on above: Order Comment: Speci men Type: BLOOD SPECIMENOrdering Facility: [facility] Address: [address] [place] [address] Performed By: #### 5 7021-8 ####VALLECILLO LABORATORYCLIA [id number] [address] [place] Immature granulocytes/100 WBC (Bld) 0.2 % Normal [facility] Comment on above: Order Comment: Speci men Type: BLOOD SPECIMENOrdering Facility: [facility] Address: [address] [place] [address] Performed By: #### 5 7021-8 ####VALLECILLO LABORATORYCLIA [id number] [place] [address] [place] Lymphocytes (Bld) [#/Vol] 1.31 10*3/uL Normal 1.00-4.00 [facility] Comment on above: Order Comment: Speci men Type: BLOOD SPECIMENOrdering Facility: [facility] Address: [address] [place] [address] Performed By: #### 5 7021-8 ####VALLECILLO LABORATORYCLIA [id number] [address] [place] Lymphocytes/100 WBC (Bld) 22.7 % Normal [facility] Comment on above: Order Comment: Speci men Type: BLOOD SPECIMENOrdering Facility: [facility] Address: [address] [place] [address] Performed By: #### 5 7021-8 ####VALLECILLO LABORATORYCLIA [id number] [address] [place] MCH (RBC) [Entitic mass] 29.6 pg Normal 26.0-34.0 [facility] Comment on above: Order Comment: Speci men Type: BLOOD SPECIMENOrdering Facility: [facility] Address: [address] [place] [address] Performed By: #### 5 7021-8 ####VALLECILLO LABORATORYCLIA [id number] [address] [place] MCHC (RBC) [Mass/Vol] 31.9 g/dL Normal 30.5-36.0 [facility] Comment on above: Order Comment: Speci men Type: BLOOD SPECIMENOrdering Facility: [facility] Address: [address] [place] [address] Performed By: #### 5 7021-8 ####VALLECILLO LABORATORYCLIA [id number] [place] [address] [place] MCV (RBC) [Entitic vol] 93.0 fL Normal 80.0-100.0 [facility] Comment on above: Order Comment: Speci men Type: BLOOD SPECIMENOrdering Facility: [facility] Address: [address] [place] [address] Performed By: #### 5 7021-8 ####VALLECILLO LABORATORYCLIA [id number] [place] [address] [place] Monocytes (Bld) [#/Vol] 0.60 10*3/uL Normal <0.87 [facility] Comment on above: Order Comment: Speci men Type: BLOOD SPECIMENOrdering Facility: [facility] Address: [address] [place] [address] Performed By: #### 5 7021-8 ####VALLECILLO LABORATORYCLIA [id number] [address] [place] Monocytes/100 WBC (Bld) 10.4 % Normal [facility] Comment on above: Order Comment: Speci men Type: BLOOD SPECIMENOrdering Facility: [facility] Address: [address] [place] [address] Performed By: #### 5 7021-8 ####VALLECILLO LABORATORYCLIA [id number] [place] [address] [place] Neutrophils (Bld) [#/Vol] 3.48 10*3/uL Normal 1.45-7.50 [facility] Comment on above: Order Comment: Speci men Type: BLOOD SPECIMENOrdering Facility: [facility] Address: [address] [place] [address] Performed By: #### 5 7021-8 ####VALLECILLO LABORATORYCLIA [id number] [address] [place] Neutrophils/100 WBC (Bld) 60.3 % Normal [facility] Comment on above: Order Comment: Speci men Type: BLOOD SPECIMENOrdering Facility: [facility] Address: [address] [place] [address] Performed By: #### 5 7021-8 ####VALLECILLO LABORATORYCLIA [id number] [address] Nucleated RBC (Bld) [#/Vol] 10*3/uL Normal <0.01 [facility] Comment on above: Order Comment: Speci men Type: BLOOD SPECIMENOrdering Facility: [facility] Address: [address] [place] [address] Performed By: #### 5 7021-8 ####VALLECILLO LABORATORYCLIA [id number] [address] Nucleated RBC/100 WBC (Bld) [Ratio] 0.0 /100 WBC Normal [facility] Comment on above: Order Comment: Speci men Type: BLOOD SPECIMENOrdering Facility: [facility] Address: [address] [place] [address] Performed By: #### 5 7021-8 ####VALLECILLO LABORATORYCLIA [id number] [address] [place] Platelet mean volume (Bld) [Entitic vol] 10.8 fL Normal 9.0-12.7 [facility] Comment on above: Order Comment: Speci men Type: BLOOD SPECIMENOrdering Facility: [facility] Address: [address] [place] [address] Performed By: #### 5 7021-8 ####VALLECILLO LABORATORYCLIA [id number] [address] [place] Platelets (Bld) [#/Vol] 114 10*3/uL Low 150-400 [facility] Comment on above: Order Comment: Speci men Type: BLOOD SPECIMENOrdering Facility: [facility] Address: [address] [place] [address] Result Comment: No c lot detected. Performed By: #### 5 7021-8 ####VALLECILLO LABORATORYCLIA [id number] [address] [place] RBC (Bld) [#/Vol] 4.15 10*6/uL Low 4.20-6.00 [facility] Comment on above: Order Comment: Speci men Type: BLOOD SPECIMENOrdering Facility: [facility] Address: [address] [place] [address] Performed By: #### 5 7021-8 ####VALLECILLO LABORATORYCLIA [id number] [address] WBC (Bld) [#/Vol] 5.77 10*3/uL Normal 3.70-11.00 [facility] Comment on above: Order Comment: Speci men Type: BLOOD SPECIMENOrdering Facility: [facility] Address: [address] [place] [address] Performed By: #### 5 7021-8 ####VALLECILLO LABORATORYCLIA [id number] [address] LUMBAR SPINE WO IVCONon 0 05-01-2024 CT LUMBAR SPINE WO IVCON Normal [facility] ECG COMPLETEon 05-01-2024 ECG COMPLETE Normal [facility] ED NOTEon 05-01-2024 ED NOTE HNO ID: [id number] Author: ALICIA BYRNE RN Service: Nursing Author Type: Registered Nurse Type: ED Notes Filed: 05/01/2024 18:34 Note Text: Patient provided with kuldip patterson and ana valle for PO challenge. Normal [facility] ED NOTE HNO ID: [id number] Author: CHERELLE KAY RN Service: ? Author Type: Registered Nurse Type: ED Notes Filed: 05/01/2024 16:34 Note Text: Bed: ED-19 Expected date: Expected time: Means of arrival: Comments: Andree [facility] ED PROV NOTEon 05-01-2024 ED PROV NOTE Normal [facility] Urinalysis complete panel (U )on 05-01-2024 Bilirubin Ql (U) 1+ Abnormal Negative [facility] Comment on above: Order Comment: Speci men Type: URINE SPECIMENOrdering Facility: [facility] Address: [address] [place] [address] Result Comment: Sugg est correlation with clinical findings and serum bilirubin if clinically indicated. Performed By: #### 2 4356-8 ####VALLECILLO LABORATORYCLIA [id number] [place] [address] [facility] [place] Clarity (Unsp spec) Clear Normal Clear [facility] Comment on above: Order Comment: Speci men Type: URINE SPECIMENOrdering Facility: [facility] Address: [address] [place] [address] Performed By: #### 2 4356-8 ####VALLECILLO LABORATORYCLIA [id number] [address] [place] Color (U) Yellow Normal Yellow [facility] Comment on above: Order Comment: Speci men Type: URINE SPECIMENOrdering Facility: [facility] Address: [address] [place] [address] Performed By: #### 2 4356-8 ####VALLECILLO LABORATORYCLIA [id number] [address] [place] Glucose Test strip (U) [Mass/Vol] Negative Normal Negative [facility] Comment on above: Order Comment: Speci men Type: URINE SPECIMENOrdering Facility: [facility] Address: [address] [place] [address] Performed By: #### 2 4356-8 ####VALLECILLO LABORATORYCLIA [id number] [address] [place] Hemoglobin Ql (U) Negative Normal Negative [facility] Comment on above: Order Comment: Speci men Type: URINE SPECIMENOrdering Facility: [facility] Address: [address] [place] [address] Performed By: #### 2 4356-8 ####VALLECILLO LABORATORYCLIA [id number] [place] [address] [place] Ketones Ql (U) Trace Abnormal Negative [facility] Comment on above: Order Comment: Speci men Type: URINE SPECIMENOrdering Facility: [facility] Address: [address] [place] [address] Performed By: #### 2 4356-8 ####VALLECILLO LABORATORYCLIA [id number] [place] [address] [facility] [place] Leukocyte esterase Test strip Ql (U) Negative Normal Negative [facility] Comment on above: Order Comment: Speci men Type: URINE SPECIMENOrdering Facility: [facility] Address: [address] [place] [address] Performed By: #### 2 4356-8 ####VALLECILLO LABORATORYCLIA [id number] [place] [address] [place] Nitrite Ql (U) Negative Normal Negative [facility] Comment on above: Order Comment: Speci men Type: URINE SPECIMENOrdering Facility: [facility] Address: [address] [place] [address] Performed By: #### 2 4356-8 ####VALLECILLO LABORATORYCLIA [id number] [place] [address] [place] pH (U) 7.0 [pH] Normal 5.0-8.0 [facility] Comment on above: Order Comment: Speci men Type: URINE SPECIMENOrdering Facility: [facility] Address: [address] [place] [address] Performed By: #### 2 4356-8 ####VALLECILLO LABORATORYCLIA [id number] [place] [address] [place] Protein (U) [Mass/Vol] 3+ Abnormal Negative [facility] Comment on above: Order Comment: Speci men Type: URINE SPECIMENOrdering Facility: [facility] Address: [address] [place] [address] Performed By: #### 2 4356-8 ####VALLECILLO LABORATORYCLIA [id number] [place] [address] [place] RBC LM.HPF (Urine sed) [#/Area] 0-3 /HPF Normal 0-3 /HPF [facility] Comment on above: Order Comment: Speci men Type: URINE SPECIMENOrdering Facility: [facility] Address: [address] [place] [address] Performed By: #### 2 4356-8 ####VALLECILLO LABORATORYCLIA [id number] [place] [address] [place] Specific gravity (U) [Rel density] 1.025 Normal 1.005-1.03 0 [facility] Comment on above: Order Comment: Speci men Type: URINE SPECIMENOrdering Facility: [facility] Address: [address] [place] [address] Performed By: #### 2 4356-8 ####ROYAL OAK LABORATORYCLIA [id number] [place] [address] [place] Urobilinogen Ql (U) 1.0 EU/dL Normal 0.2-1.0 EU/dL [facility] Comment on above: Order Comment: Speci men Type: URINE SPECIMENOrdering Facility: [facility] Address: [address] [place] [address] Performed By: #### 2 4356-8 ####ROYAL OAK LABORATORYCLIA [id number] [place] [address] [place] WBC LM.HPF (Urine sed) [#/Area] 0-5 /HPF Normal 0-5 /HPF [facility] Comment on above: Order Comment: Speci men Type: URINE SPECIMENOrdering Facility: [facility] Address: [address] [place] [address] Performed By: #### 2 4356-8 ####ROYAL OAK LABORATORYCLIA [id number] [place] [address] [place] XR CHEST 1V FRONTAL PORTon 0 05-01-2024 XR CHEST 1V FRONTAL PORT Normal [facility] CNCOon 04-06-2024 CNCO Letter Text Normal [facility] Albumin SerPl-mCncon 024 Albumin [Mass/Vol] 3.6 g/dL Low 3.9-4.9 [facility] Comment on above: Order Comment: Speci men Type: BLOOD SPECIMENOrdering Facility: [facility] Address: [address] [place] [address] Performed By: #### 2 4321-2, 1751-7, 43636-5, 1987-5, 80143-6 ####[facility] LABORATORYCLIA [id number] [place] [address] [place] Basic metabolic 2000 panelon 04-05-2024 Anion gap [Moles/Vol] 9 mmol/L Normal 8-15 [facility] Comment on above: Order Comment: Speci men Type: BLOOD SPECIMENOrdering Facility: [facility] Address: [address] [place] [address], [place] [address] Performed By: #### 2 1-2, 1751-02, , 1987-12, ####[facility] LABORATORYCLIA [id number] [place] [address] [place] Calcium [Mass/Vol] 8.5 mg/dL Normal 8.5-10.2 [facility] Comment on above: Order Comment: Speci men Type: BLOOD SPECIMENOrdering Facility: [facility] Address: [facility] [place] [address] Performed By: #### 2 4320-2, 1751-02, , 1987-12, ####[facility] LABORATORYCLIA [id number] [place] [address] [place] Chloride [Moles/Vol] 99 mmol/L Normal 98-107 [facility] Comment on above: Order Comment: Speci men Type: BLOOD SPECIMENOrdering Facility: [facility] Address: [address] [place] [address] [place] [address] Performed By: #### 2 4320-2, 1751-02, , 1987-12, ####[facility] LABORATORYCLIA [id number] [place] [id number] [place] CO2 [Moles/Vol] 28 mmol/L Normal 22-30 [facility] Comment on above: Order Comment: Speci men Type: BLOOD SPECIMENOrdering Facility: [facility] Address: [facility] [place] [id number] Performed By: #### 2 4320-2, 1751-02, , 1987-12, ####[facility] LABORATORYCLIA [id number] [place] [address] [place] Creatinine [Mass/Vol] 3.82 mg/dL High 0.73-1.22 [facility] Comment on above: Order Comment: Speci men Type: BLOOD SPECIMENOrdering Facility: [facility] Address: [address] [place] [address] [place] [address] Performed By: #### 2 4320-2, 1751-02, , 59-8 ####[facility] LABORATORYCLIA [id number] [place] [id number] [place] Creatinine and Glomerular filtration rate.predicted panel (S/P/Bld) 16 mL/min/1.73m??? Low >=60 [facility] Comment on above: Order Comment: Alise montejo Type: BLOOD SPECIMENOrdering Facility: [facility] Address: [address] [place] [address] Result Comment: Anupama mated Glomerular Filtration Rate (eGFR) is calculated using the 2020 CKD-EPI creatinine equation. This equation utilizes serum creatinine, sex, and age as parameters. The creatinine assay has traceable calibration to isotope dilution-mass spectrometry. Refer to KDIGO guidelines for clinical interpretation. In patients with unstable renal function, e.g. those with acute kidney injury, the eGFR may not accurately reflect actual GFR. Performed By: #### 2 4321-2, 1751-02, , 59-8 ####[facility] LABORATORYCLIA [id number] [place] [id number] [place] Glucose [Mass/Vol] 111 mg/dL High 74-99 [facility] Comment on above: Order Comment: Alise montejo Type: BLOOD SPECIMENOrdering Facility: [facility] Address: [address] [place] [address] Result Comment: The [place] Diabetes Association (ADA) provides guidance for cutoff values for fasting glucose and random glucose. The ADA defines fasting as no caloric intake for at least 8 hours. Fasting plasma glucose results between 100 to 125 mg/dL indicate increased risk for diabetes (prediabetes).Fasting plasma glucose results greater than or equal to 126 mg/dL meet the criteria for diagnosis of diabetes. In the absence of unequivocal hyperglycemia, results should be confirmed by repeat testing. In a patient with classic symptoms of hyperglycemia or hyperglycemic crisis, random plasma glucose results greater than or equal to 200 mg/dL meet the criteria for diagnosis of diabetes.Reference: Standards of Medical Care in Diabetes 2016, [place] Diabetes Association. Diabetes Care. 2016.39(Suppl 1). Performed By: #### 2 4321-2, 1751-02, , 1987-12, 47957-4 ####[facility] LABORATORYCLIA [id number] [place] [address] [place] Potassium [Moles/Vol] 3.8 mmol/L Normal 3.7-5.1 [facility] Comment on above: Order Comment: Speci men Type: BLOOD SPECIMENOrdering Facility: [facility] Address: [address] [place] [address] Performed By: #### 2 4321-2, 1751-02, , 1987-12, 73250-8 ####[facility] LABORATORYCLIA [id number] [place] [id number] [place] Sodium [Moles/Vol] 136 mmol/L Normal 136-144 [facility] Comment on above: Order Comment: Speci men Type: BLOOD SPECIMENOrdering Facility: [facility] Address: [address] [place] [address] Performed By: #### 2 4321-2, 1751-02, , 1987-12, 68853-5 ####[facility] LABORATORYCLIA [id number] [place] [id number] [place] Urea nitrogen [Mass/Vol] 28 mg/dL High 9-24 [facility] Comment on above: Order Comment: Speci men Type: BLOOD SPECIMENOrdering Facility: [facility] Address: [address] [place] [address] Performed By: #### 2 4321-2, 1751-02, , 1987-12, 57876-4 ####[facility] LABORATORYCLIA [id number] [place] [id number] [place] CASE MANAGEMon 04-05-2024 CASE MANAGEM Normal [facility] CBC panel Auto (Bld)on 04-05 Erythrocyte distribution width (RBC) [Ratio] 15.6 % High 11.5-15.0 [facility] Comment on above: Order Comment: Speci men Type: BLOOD SPECIMENOrdering Facility: [facility] Address: [address] [place] [address] Performed By: #### 5 8410-2 ####[facility] LABORATORYCLIA [id number] [place] [address] Hematocrit (Bld) [Volume fraction] 33.2 % Low 39.0-51.0 [facility] Comment on above: Order Comment: Speci men Type: BLOOD SPECIMENOrdering Facility: [facility] Address: [address] [place] [address] Performed By: #### 5 8410-2 ####[facility] LABORATORYCLIA [id number] [address] Hemoglobin (Bld) [Mass/Vol] 10.5 g/dL Low 13.0-17.0 [facility] Comment on above: Order Comment: Speci men Type: BLOOD SPECIMENOrdering Facility: [facility] Address: [address] [place] [address] Performed By: #### 5 8410-2 ####[facility] LABORATORYCLIA [id number] [address] MCH (RBC) [Entitic mass] 30.0 pg Normal 26.0-34.0 [facility] Comment on above: Order Comment: Speci men Type: BLOOD SPECIMENOrdering Facility: [facility] Address: [address] [place] [address] Performed By: #### 5 8410-2 ####[facility] LABORATORYCLIA [id number] [address] MCHC (RBC) [Mass/Vol] 31.6 g/dL Normal 30.5-36.0 [facility] Comment on above: Order Comment: Speci men Type: BLOOD SPECIMENOrdering Facility: [facility] Address: [address] [place] [address] Performed By: #### 5 8410-2 ####[facility] LABORATORYCLIA [id number] [address] MCV (RBC) [Entitic vol] 94.9 fL Normal 80.0-100.0 [facility] Comment on above: Order Comment: Speci men Type: BLOOD SPECIMENOrdering Facility: [facility] Address: [address] [place] [address] Performed By: #### 5 8410-2 ####[facility] LABORATORYCLIA [id number] [address] [place] Nucleated RBC (Bld) [#/Vol] 10*3/uL Normal <0.01 [facility] Comment on above: Order Comment: Speci men Type: BLOOD SPECIMENOrdering Facility: [facility] Address: [address] [place] [address] Performed By: #### 5 8410-2 ####[facility] LABORATORYCLIA [id number] [address] Platelet mean volume (Bld) [Entitic vol] 10.3 fL Normal 9.0-12.7 [facility] Comment on above: Order Comment: Speci men Type: BLOOD SPECIMENOrdering Facility: [facility] Address: [address] [place] [address] Performed By: #### 5 8410-2 ####[facility] LABORATORYCLIA [id number] [address] Platelets (Bld) [#/Vol] 125 10*3/uL Low 150-400 [facility] Comment on above: Order Comment: Speci men Type: BLOOD SPECIMENOrdering Facility: [facility] Address: [address] [place] [address] Result Comment: No c lot detected. Performed By: #### 5 8410-2 ####[facility] LABORATORYCLIA [id number] [address] RBC (Bld) [#/Vol] 3.50 10*6/uL Low 4.20-6.00 [facility] Comment on above: Order Comment: Speci men Type: BLOOD SPECIMENOrdering Facility: [facility] Address: [address] [place] [address] Performed By: #### 5 8410-2 ####VAL[facility] LABORATORYCLIA [id number] [address] WBC (Bld) [#/Vol] 6.17 10*3/uL Normal 3.70-11.00 [facility] Comment on above: Order Comment: Speci men Type: BLOOD SPECIMENOrdering Facility: [facility] Address: [address] [place], [place] [address] [address] Performed By: #### 5 8410-2 ####[facility] LABORATORYCLIA [id number] [place] [address] [place] CNDSon 04-05-2024 CNDS Normal [facility] CONSULTon 04-05-2024 CONSULT Normal [facility] CRP SerPl-mCncon 04-05-2024 CRP [Mass/Vol] 0.6 mg/dL Normal <0.9 [facility] Comment on above: Order Comment: Speci men Type: BLOOD SPECIMENOrdering Facility: [facility] Address: [facility] [place] [id number] Performed By: #### 2 4321-2, 1751-02, , 1987-12, 11226-2 ####[facility] LABORATORYCLIA [id number] [place] [address] [place] Magnesium SerPl-mCncon 04-05 Magnesium [Mass/Vol] 1.9 mg/dL Normal 1.7-2.3 [facility] Comment on above: Order Comment: Speci men Type: BLOOD SPECIMENOrdering Facility: [facility] Address: [facility] [place] [id number] Performed By: #### 2 4321-2, 1751-02, , 1987-12, 01792-6 ####[facility] LABORATORYCLIA [id number] [place] [id number] [place] Phosphate SerPl-mCncon 04-05 Phosphate [Mass/Vol] 3.7 mg/dL Normal 2.7-4.8 [facility] Comment on above: Order Comment: Speci men Type: BLOOD SPECIMENOrdering Facility: [facility] Address: [facility] [place] [id number] Performed By: #### 2 777-1 ####[facility] LABORATORYCLIA [id number] [place] [address] [place] Procalcitonin SerPl-mCncon 0 04-05-2024 Procalcitonin [Mass/Vol] 0.16 ng/mL High <0.09 [facility] Comment on above: Order Comment: Specosiris montejo Type: BLOOD SPECIMENOrdering Facility: [facility] Address: [address] [place] [address] Result Comment: For a guided interpretation of test results, please visit the Change in Procalcitonin Calculator, [email or web address]. Performed By: #### 2 4321-2, 1751-7, 79554-9, 1987-5, 78677-6 ####[facility] LABORATORYCLIA [id number] [place] [id number] [place] 25([place])D3 [facility] 25-hydroxyvitamin D3 [Mass/Vol] 22.8 ng/mL Low 31.0-80.0 [facility] Comment on above: Order Comment: Alise montejo Type: BLOOD SPECIMENOrdering Facility: [facility] Address: [address] [place] [address] Result Comment: Clas sification of 25 [place] Vitamin D status:Deficiency/Insufficiency: < or = 30 ng/ml.Sufficiency/Optimal Levels: 31-80 ng/mLToxicity: > 100 ng/mL.Test performed by chemiluminescent immunoassay. Performed By: #### 1 989-3 ####[facility] LABCLIA [id number] [place] [id number] [place] [facility] HEALTHon 04-04-2024 [facility] Normal [facility] CBC panel Auto (Bld)on 04-04 Erythrocyte distribution width (RBC) [Ratio] 15.6 % High 11.5-15.0 [facility] Comment on above: Order Comment: Alishai nikia Type: BLOOD SPECIMENOrdering Facility: [facility] Address: [address] [place] [address] Performed By: #### 5 8410-2 ####VAL[facility]LL[facility] LABORATORYCLIA [id number] [place] [address] [place] Hematocrit (Bld) [Volume fraction] 33.4 % Low 39.0-51.0 [facility] Comment on above: Order Comment: Speci men Type: BLOOD SPECIMENOrdering Facility: [facility] Address: [address] [place] [address] Performed By: #### 5 8410-2 ####[facility] LABORATORYCLIA [id number] [address] [place] Hemoglobin (Bld) [Mass/Vol] 10.5 g/dL Low 13.0-17.0 [facility] Comment on above: Order Comment: Speci men Type: BLOOD SPECIMENOrdering Facility: [facility] Address: [address] [place] [address] Performed By: #### 5 8410-2 ####VAL[facility] LABORATORYCLIA [id number] [address] STATES [facility] MCH (RBC) [Entitic mass] 29.8 pg Normal 26.0-34.0 [facility] Comment on above: Order Comment: Speci men Type: BLOOD SPECIMENOrdering Facility: [facility] Address: [address] [place] [address] Performed By: #### 5 8410-2 ####[facility] LABORATORYCLIA [id number] [address] MCHC (RBC) [Mass/Vol] 31.4 g/dL Normal 30.5-36.0 [facility] Comment on above: Order Comment: Speci men Type: BLOOD SPECIMENOrdering Facility: [facility] Address: [address] [place] [address] Performed By: #### 5 8410-2 ####[facility] LABORATORYCLIA [id number] [address] MCV (RBC) [Entitic vol] 94.9 fL Normal 80.0-100.0 [facility] Comment on above: Order Comment: Speci men Type: BLOOD SPECIMENOrdering Facility: [facility] Address: [address] [place] [address] Performed By: #### 5 8410-2 ####[facility] LABORATORYCLIA [id number] [address] Nucleated RBC (Bld) [#/Vol] 10*3/uL Normal <0.01 [facility] Comment on above: Order Comment: Speci men Type: BLOOD SPECIMENOrdering Facility: [facility] Address: [address] [place] [address] Performed By: #### 5 8410-2 ####[facility] LABORATORYCLIA [id number] [address] [place] Platelet mean volume (Bld) [Entitic vol] 10.5 fL Normal 9.0-12.7 [facility] Comment on above: Order Comment: Speci men Type: BLOOD SPECIMENOrdering Facility: [facility] Address: [address] [place] [address] Performed By: #### 5 8410-2 ####[facility] LABORATORYCLIA [id number] [address] [place] Platelets (Bld) [#/Vol] 122 10*3/uL Low 150-400 [facility] Comment on above: Order Comment: Speci men Type: BLOOD SPECIMENOrdering Facility: [facility] Address: [address] [place] [address] Result Comment: No c lot detected. Performed By: #### 5 8410-2 ####[facility] LABORATORYCLIA [id number] [address] [place] RBC (Bld) [#/Vol] 3.52 10*6/uL Low 4.20-6.00 [facility] Comment on above: Order Comment: Speci men Type: BLOOD SPECIMENOrdering Facility: [facility] Address: [address] [place] [address] Performed By: #### 5 8410-2 ####[facility] LABORATORYCLIA [id number] [address] WBC (Bld) [#/Vol] 6.02 10*3/uL Normal 3.70-11.00 [facility] Comment on above: Order Comment: Speci men Type: BLOOD SPECIMENOrdering Facility: [facility] Address: [address] [place] [address] Performed By: #### 5 8410-2 ####VAL[facility] LABORATORYCLIA [id number] [place] [address] [place] CONSULTon 04-04-2024 CONSULT Normal [facility] ECG COMPLETEon 04-04-2024 ECG COMPLETE Normal [facility] Ferritin SerPl-mCncon 2023 Ferritin [Mass/Vol] 1048.0 ng/mL High 30.3-565.7 [facility] Comment on above: Order Comment: Speci men Type: BLOOD SPECIMENOrdering Facility: [facility] Address: [address] [place] [address] Performed By: #### 2 276-4, 86920-1 ####VAL[facility] LABORATORYCLIA [id number] [address] [place] Folate SerPl-mCncon 04-04-20 Folate [Mass/Vol] 4.8 ng/mL Normal >4.7 [facility] Comment on above: Order Comment: Speci men Type: BLOOD SPECIMENOrdering Facility: [facility] Address: [address] [place] [address] Performed By: #### 2 132-9, 2284-8 ####VAL[facility] LABORATORYCLIA [id number] [address] HIGH SENSITIVITY TROPONIN To n 04-04-2024 Troponin T.cardiac High sensitivity method [Mass/Vol] 149 ng/L High <12 [facility] Comment on above: Order Comment: Speci men Type: BLOOD SPECIMENOrdering Facility: [facility] Address: [address] [place] [address] Performed By: #### H STNT ####VAL[facility] LABORATORYCLIA [id number] [address] [place] Troponin T.cardiac High sensitivity method [Mass/Vol] 146 ng/L High <12 [facility] Comment on above: Order Comment: Speci men Type: BLOOD SPECIMENOrdering Facility: [facility] Address: [address] [place] [address] Performed By: #### H STNT ####VAL[facility] LABORATORYCLIA [id number] [address] [place] Troponin T.cardiac High sensitivity method [Mass/Vol] 152 ng/L High <12 [facility] Comment on above: Order Comment: Speci men Type: BLOOD SPECIMENOrdering Facility: [facility] Address: [address] [place] [address] Performed By: #### H STNT ####VALLE[facility] LABORATORYCLIA [id number] [place] [address] [place] HIGH SENSITIVITY TROPONIN T (THIRD) 3 HRS AFTER INITIALon 04-04-2024 Troponin T.cardiac High sensitivity method [Mass/Vol] 139 ng/L High <12 [facility] Comment on above: Order Comment: Speci men Type: BLOOD SPECIMENOrdering Facility: [facility] Address: [address] [place] [address] Performed By: #### L [id number] ####[facility] LABORATORYCLIA [id number] [address] [place] HISTORY PHYSICALon HISTORY PHYSICAL Normal [facility] Iron and Iron binding capaci ty panelon 04-04-2024 Iron [Mass/Vol] 59 ug/dL Normal 41-186 [facility] Comment on above: Order Comment: Speci men Type: BLOOD SPECIMENOrdering Facility: [facility] Address: [address] [place] [address] Performed By: #### 2 276-4, 72226-0 ####VAL[facility] LABORATORYCLIA [id number] [address] [place] Iron binding capacity [Mass/Vol] 190 ug/dL Low 232-386 [facility] Comment on above: Order Comment: Speci men Type: BLOOD SPECIMENOrdering Facility: [facility] Address: [address] [place] [address] Performed By: #### 2 276-4, 64713-6 ####[facility] LABORATORYCLIA [id number] [address] STATES [facility] Iron/TIBC [Molar ratio] 31.1 % Normal 15.0-57.0 M [facility] Comment on above: Order Comment: Speci men Type: BLOOD SPECIMENOrdering Facility: [facility] Address: [address] [place] [address] Performed By: #### 2 276-4, 24553-0 ####[facility] LABORATORYCLIA [id number] [place] [address] [facility]ICAL EMERon 04-04-2024 MEDICAL OKSANA [facility] NURSING PROGon 04-04-2024 NURSING PROG [facility] NURSING PROG [facility] NUTRITIONon 04-04-2024 NUTRITION [facility] PTH-[facility]act [facility] - Parathyrin.intact [Mass/Vol] 86 pg/mL High 15-65 [facility] Comment on above: Order Comment: Speci men Type: BLOOD SPECIMENOrdering Facility: [facility] Address: [address] [place] [address] Performed By: #### 2 731-8 ####[facility] LABCLIA [id number] [facility] [place]REGRGRKHE[place] [id number] [place] US CHEST EFFUSION SURVEYon 0 04-04-2024 US CHEST EFFUSION SURVEY Normal [facility] Vit B12 SerPl-ncon 024 Cobalamin (Vitamin B12) [Mass/Vol] 641 pg/mL Normal 232-1245 [facility] Comment on above: Order Comment: Speci men Type: BLOOD SPECIMENOrdering Facility: [facility] Address: [address] [place] [address] Performed By: #### 2 132-9, 2284-8 ####[facility] LABORATORYCLIA [id number] [place] [id number] [facility] [place] ALLIED HEALTHon 04-03-2024 ALLIED HEALTH Normal [facility] ALLIED HEALTH [facility] CBC W Auto Differential pane l (Bld)on 04-03-2024 Basophils (Bld) [#/Vol] 0.08 10*3/uL Normal <0.11 [facility] Comment on above: Order Comment: Speci men Type: BLOOD SPECIMENOrdering Facility: [facility] Address: [address] [place] [address] Performed By: #### 5 7021-8 ####[facility] LABORATORYCLIA [id number] [place] [id number] [place] Basophils/100 WBC (Bld) 1.2 % Normal [facility] Comment on above: Order Comment: Speci men Type: BLOOD SPECIMENOrdering Facility: [facility] Address: [address] [place] [address] Performed By: #### 5 7021-8 ####VAL[facility] LABORATORYCLIA [id number] [address] [place] Differential cell count method Nom (Bld) Auto Normal [facility] Comment on above: Order Comment: Speci men Type: BLOOD SPECIMENOrdering Facility: [facility] Address: [address] [place] [address] Performed By: #### 5 7021-8 ####VALLE[facility]LL[facility] LABORATORYCLIA [id number] [place] [address] [place] Eosinophils (Bld) [#/Vol] 0.47 10*3/uL High <0.46 [facility] Comment on above: Order Comment: Speci men Type: BLOOD SPECIMENOrdering Facility: [facility] Address: [address] [place] [address] Performed By: #### 5 7021-8 ####[facility] LABORATORYCLIA [id number] [address] [place] Eosinophils/100 WBC (Bld) 7.3 % Normal [facility] Comment on above: Order Comment: Speci men Type: BLOOD SPECIMENOrdering Facility: [facility] Address: [address] [place] [address] Performed By: #### 5 7021-8 ####VALLECILL[facility] LABORATORYCLIA [id number] [place] [address] [place] Erythrocyte distribution width (RBC) [Ratio] 16.0 % High 11.5-15.0 [facility] Comment on above: Order Comment: Speci men Type: BLOOD SPECIMENOrdering Facility: [facility] Address: [address] [place] [address] Performed By: #### 5 7021-8 ####VALLE[facility] LABORATORYCLIA [id number] [place] [address] [place] Hematocrit (Bld) [Volume fraction] 33.9 % Low 39.0-51.0 [facility] Comment on above: Order Comment: Speci men Type: BLOOD SPECIMENOrdering Facility: [facility] Address: [address] [place] [address] Performed By: #### 5 7021-8 ####VALLE[facility] LABORATORYCLIA [id number] [place] [address] [place] Hemoglobin (Bld) [Mass/Vol] 10.5 g/dL Low 13.0-17.0 [facility] Comment on above: Order Comment: Speci men Type: BLOOD SPECIMENOrdering Facility: [facility] Address: [address] [place] [address] Performed By: #### 5 7021-8 ####VALLE[facility] LABORATORYCLIA [id number] [place] [address] [place] Immature granulocytes (Bld) [#/Vol] 10*3/uL Normal <0.10 [facility] Comment on above: Order Comment: Speci men Type: BLOOD SPECIMENOrdering Facility: [facility] Address: [address] [place] [address] Performed By: #### 5 7021-8 ####VALLECILLO LABORATORYCLIA [id number] [place] [address] [place] Immature granulocytes/100 WBC (Bld) 0.3 % Normal [facility] Comment on above: Order Comment: Speci men Type: BLOOD SPECIMENOrdering Facility: [facility] Address: [address] [place] [address] Performed By: #### 5 7021-8 ####[facility] LABORATORYCLIA [id number] [place] [address] [place] Lymphocytes (Bld) [#/Vol] 1.06 10*3/uL Normal 1.00-4.00 [facility] Comment on above: Order Comment: Speci men Type: BLOOD SPECIMENOrdering Facility: [facility] Address: [address] [place] [address] Performed By: #### 5 7021-8 ####VALLECILLO LABORATORYCLIA [id number] [place] [address] [place] Lymphocytes/100 WBC (Bld) 16.5 % Normal [facility] Comment on above: Order Comment: Speci men Type: BLOOD SPECIMENOrdering Facility: [facility] Address: [facility] [place] [address] Performed By: #### 5 7021-8 ####VALLECILLO LABORATORYCLIA [id number] [place] [address] [place] MCH (RBC) [Entitic mass] 29.9 pg Normal 26.0-34.0 [facility] Comment on above: Order Comment: Speci men Type: BLOOD SPECIMENOrdering Facility: [facility] Address: [address] [place] [address] Performed By: #### 5 7021-8 ####VALLECILLO LABORATORYCLIA [id number] [place] [address] [place] MCHC (RBC) [Mass/Vol] 31.0 g/dL Normal 30.5-36.0 [facility] Comment on above: Order Comment: Speci men Type: BLOOD SPECIMENOrdering Facility: [facility] Address: [address] [place] [address] Performed By: #### 5 7021-8 ####VALLECILLO LABORATORYCLIA [id number] [address] [place] MCV (RBC) [Entitic vol] 96.6 fL Normal 80.0-100.0 [facility] Comment on above: Order Comment: Speci men Type: BLOOD SPECIMENOrdering Facility: [facility] Address: [address] [place] [address] Performed By: #### 5 7021-8 ####VALLECILLO LABORATORYCLIA [id number] [place] [address] [place] Monocytes (Bld) [#/Vol] 0.75 10*3/uL Normal <0.87 [facility] Comment on above: Order Comment: Speci men Type: BLOOD SPECIMENOrdering Facility: [facility] Address: [address] [place] [address] Performed By: #### 5 7021-8 ####VALLECILLO LABORATORYCLIA [id number] [place] [address] [place] Monocytes/100 WBC (Bld) 11.7 % Normal [facility] Comment on above: Order Comment: Speci men Type: BLOOD SPECIMENOrdering Facility: [facility] Address: [address] [place] [address] Performed By: #### 5 7021-8 ####VALLECILLO LABORATORYCLIA [id number] [place] [address] [place] Neutrophils (Bld) [#/Vol] 4.05 10*3/uL Normal 1.45-7.50 [facility] Comment on above: Order Comment: Speci men Type: BLOOD SPECIMENOrdering Facility: [facility] Address: [address] [place] [address] Performed By: #### 5 7021-8 ####VALLECILLO LABORATORYCLIA [id number] [address] [place] Neutrophils/100 WBC (Bld) 63.0 % Normal [facility] Comment on above: Order Comment: Speci men Type: BLOOD SPECIMENOrdering Facility: [facility] Address: [address] [place] [address] Performed By: #### 5 7021-8 ####VALLECILLO LABORATORYCLIA [id number] [place] [address] [place] Nucleated RBC (Bld) [#/Vol] 10*3/uL Normal <0.01 [facility] Comment on above: Order Comment: Speci men Type: BLOOD SPECIMENOrdering Facility: [facility] Address: [address] [place] [address] Performed By: #### 5 7021-8 ####VALLECILLO LABORATORYCLIA [id number] [place] [address] [place] Nucleated RBC/100 WBC (Bld) [Ratio] 0.0 /100 WBC Normal [facility] Comment on above: Order Comment: Speci men Type: BLOOD SPECIMENOrdering Facility: [facility] Address: [address] [place] [address] Performed By: #### 5 7021-8 ####VALLECILLO LABORATORYCLIA [id number] [address] Platelet mean volume (Bld) [Entitic vol] 11.1 fL Normal 9.0-12.7 [facility] Comment on above: Order Comment: Speci men Type: BLOOD SPECIMENOrdering Facility: [facility] Address: [address] [place] [address] Performed By: #### 5 7021-8 ####VALLECILLO LABORATORYCLIA [id number] [place] [address] [place] Platelets (Bld) [#/Vol] 138 10*3/uL Low 150-400 [facility] Comment on above: Order Comment: Speci men Type: BLOOD SPECIMENOrdering Facility: [facility] Address: [address] [place] [address] Result Comment: No c lot detected. Performed By: #### 5 7021-8 ####VALLECILLO LABORATORYCLIA [id number] [address] RBC (Bld) [#/Vol] 3.51 10*6/uL Low 4.20-6.00 [facility] Comment on above: Order Comment: Speci men Type: BLOOD SPECIMENOrdering Facility: [facility] Address: [address] [place] [address] Performed By: #### 5 7021-8 ####VALLECILLO LABORATORYCLIA [id number] [address] [place] WBC (Bld) [#/Vol] 6.43 10*3/uL Normal 3.70-11.00 [facility] Comment on above: Order Comment: Speci men Type: BLOOD SPECIMENOrdering Facility: [facility] Address: [address] [place] [address] Performed By: #### 5 7021-8 ####VALLECILLO LABORATORYCLIA [id number] [address] [place] CT CHEST W IVCON PEon 2023 CT CHEST W IVCON PE Normal [facility] Comprehensive metabolic 2000 panelon 04-03-2024 Albumin [Mass/Vol] 3.2 g/dL Low 3.9-4.9 [facility] Comment on above: Order Comment: Speci men Type: BLOOD SPECIMENOrdering Facility: [facility] Address: [address] [facility] [place] [address] Performed By: #### 3 3762-6, [id number], 40119-6, ####VALLECILLO LABORATORYCLIA [id number] [place] [address] [place] ALP [Catalytic activity/Vol] 75 U/L Normal 38-113 [facility] Comment on above: Order Comment: Speci men Type: BLOOD SPECIMENOrdering Facility: [facility] Address: [address] [place] [address] Performed By: #### 3 3762-6, [id number], 70258-9, ####VALLECILLO LABORATORYCLIA [id number] [place] [address] [place] ALT [Catalytic activity/Vol] 17 U/L Normal 10-54 [facility] Comment on above: Order Comment: Speci men Type: BLOOD SPECIMENOrdering Facility: [facility] Address: [address] [place] [address] Performed By: #### 3 3762-6, [id number], 93268-0, ####VALLECILLO LABORATORYCLIA [id number] [address] STATES [facility] Anion gap [Moles/Vol] 11 mmol/L Normal 8-15 [facility] Comment on above: Order Comment: Speci men Type: BLOOD SPECIMENOrdering Facility: [facility] Address: [address] [place] [address] Performed By: #### 3 3762-6, [id number], 07329-5, ####VALLECILLO LABORATORYCLIA [id number] [place] [address] [place] AST [Catalytic activity/Vol] 22 U/L Normal 14-40 [facility] Comment on above: Order Comment: Speci men Type: BLOOD SPECIMENOrdering Facility: [facility] Address: [facility] [place] [address] Performed By: #### 3 3762-6, [id number], 08609-0, ####VALLECILLO LABORATORYCLIA [id number] [place] [address] [place] Bilirubin [Mass/Vol] 0.3 mg/dL Normal 0.2-1.3 [facility] Comment on above: Order Comment: Speci men Type: BLOOD SPECIMENOrdering Facility: [facility] Address: [address] [place] [address] Performed By: #### 3 3762-6, [id number], , ####VALLECILLO LABORATORYCLIA [id number] [place] [address] [place] Calcium [Mass/Vol] 8.2 mg/dL Low 8.5-10.2 [facility] Comment on above: Order Comment: Speci men Type: BLOOD SPECIMENOrdering Facility: [facility] Address: [address] [place] [address] Performed By: #### 3 3762-6, [id number], , ####VALLECILLO LABORATORYCLIA [id number] [place] [address] [place] Chloride [Moles/Vol] 101 mmol/L Normal 98-107 [facility] Comment on above: Order Comment: Speci men Type: BLOOD SPECIMENOrdering Facility: [facility] Address: [address] [place] [address] Performed By: #### 3 3762-6, [id number], , ####VALLECILLO LABORATORYCLIA [id number] [place] [address] [place] CO2 [Moles/Vol] 26 mmol/L Normal 22-30 [facility] Comment on above: Order Comment: Speci men Type: BLOOD SPECIMENOrdering Facility: [facility] Address: [address] [place] [address] Performed By: #### 3 3762-6, [id number], 33783-8, ####VALLECILLO LABORATORYCLIA [id number] [place] [address] [place] Creatinine [Mass/Vol] 3.94 mg/dL High 0.73-1.22 [facility] Comment on above: Order Comment: Alise montejo Type: BLOOD SPECIMENOrdering Facility: [facility] Address: [address] [place] [address] Performed By: #### 3 3762-6, [id number], 52503-2, 13702-7 ####VALLECILLO LABORATORYCLIA [id number] [place] [id number] [place] Creatinine and Glomerular filtration rate.predicted panel (S/P/Bld) 15 mL/min/1.73m??? Low >=60 [facility] Comment on above: Order Comment: Alise montejo Type: BLOOD SPECIMENOrdering Facility: [facility] Address: [address] [place] [address] Result Comment: Anupama mated Glomerular Filtration Rate (eGFR) is calculated using the 2020 CKD-EPI creatinine equation. This equation utilizes serum creatinine, sex, and age as parameters. The creatinine assay has traceable calibration to isotope dilution-mass spectrometry. Refer to KDIGO guidelines for clinical interpretation. In patients with unstable renal function, e.g. those with acute kidney injury, the eGFR may not accurately reflect actual GFR. Performed By: #### 3 3762-6, [id number], 52412-5, 03877-8 ####VALLECILLO LABORATORYCLIA [id number] [place] [id number] [place] Glucose [Mass/Vol] 212 mg/dL High 74-99 [facility] Comment on above: Order Comment: Alise montejo Type: BLOOD SPECIMENOrdering Facility: [facility] Address: [address] [place] [address] Result Comment: The [place] [employer] (ADA) provides guidance for cutoff values for fasting glucose and random glucose. The ADA defines fasting as no caloric intake for at least 8 hours. Fasting plasma glucose results between 100 to 125 mg/dL indicate increased risk for diabetes (prediabetes).Fasting plasma glucose results greater than or equal to 126 mg/dL meet the criteria for diagnosis of diabetes. In the absence of unequivocal hyperglycemia, results should be confirmed by repeat testing. In a patient with classic symptoms of hyperglycemia or hyperglycemic crisis, random plasma glucose results greater than or equal to 200 mg/dL meet the criteria for diagnosis of diabetes.Reference: Standards of Medical Care in Diabetes 2016, [place] [employer]. Diabetes Care. 2016.39(Suppl 1). Performed By: #### 3 3762-6, [id number], 57638-7, ####VALLECILLO LABORATORYCLIA [id number] [place] [address] [place] Potassium [Moles/Vol] 4.3 mmol/L Normal 3.7-5.1 [facility] Comment on above: Order Comment: Speci men Type: BLOOD SPECIMENOrdering Facility: [facility] Address: [address] [place] [address] Performed By: #### 3 3762-6, [id number], 54088-5, ####VALLECILLO LABORATORYCLIA [id number] [place] [address] [place] Protein [Mass/Vol] 6.0 g/dL Low 6.3-8.0 [facility] Comment on above: Order Comment: Speci men Type: BLOOD SPECIMENOrdering Facility: [facility] Address: [address] [place] [address] Performed By: #### 3 3762-6, [id number], 43798-0, ####VALLECILLO LABORATORYCLIA [id number] [place] [address] [place] Sodium [Moles/Vol] 138 mmol/L Normal 136-144 [facility] Comment on above: Order Comment: Speci men Type: BLOOD SPECIMENOrdering Facility: [facility] Address: [address] [place] [address] Performed By: #### 3 3762-6, [id number], 14650-0, ####VALLECILLO LABORATORYCLIA [id number] [place] [address] [place] Urea nitrogen [Mass/Vol] 30 mg/dL High 9-24 [facility] Comment on above: Order Comment: Speci men Type: BLOOD SPECIMENOrdering Facility: [facility] Address: [address] [place] [address] Performed By: #### 3 3762-6, [id number], 30742-6, 19264-7 ####VALLECILLO LABORATORYCLIA [id number] [address] ED NOTEon 04-03-2024 ED NOTE HNO ID: [id number] Author: ИВАН MARTI RN Service: ? Author Type: Registered Nurse Type: ED Notes Filed: 04/03/2024 19:23 Note Text: Bed: ED-12 Expected date: Expected time: Means of arrival: Comments: M1 Normal [facility] ED PROV NOTEon 04-03-2024 ED PROV NOTE Normal [facility] HIGH SENSITIVITY TROPONIN T (INITIAL)on 04-03-2024 Troponin T.cardiac High sensitivity method [Mass/Vol] 136 ng/L High <12 [facility] Comment on above: Order Comment: Speci men Type: BLOOD SPECIMENOrdering Facility: [facility] Address: [address] [place] [address] Performed By: #### 3 3762-6, [id number], 39057-6, 47476-9 ####[facility] LABORATORYCLIA [id number] [address] HIGH SENSITIVITY TROPONIN T (SECOND)on 04-03-2024 Troponin T.cardiac High sensitivity method [Mass/Vol] 135 ng/L High <12 [facility] Comment on above: Order Comment: Speci men Type: BLOOD SPECIMENOrdering Facility: [facility] Address: [address] [place] [address] Performed By: #### L [id number] ####[facility] LABORATORYCLIA [id number] [address] [place] Magnesium SerPl-mCncon 04-03 Magnesium [Mass/Vol] 1.9 mg/dL Normal 1.7-2.3 [facility] Comment on above: Order Comment: Speci men Type: BLOOD SPECIMENOrdering Facility: [facility] Address: [address] [place] [address] Performed By: #### 3 3762-6, [id number], 65435-7, 03336-4 ####VALLECILLO LABORATORYCLIA [id number] [place] [address] [place] [facility] [place] NT-proBNP SerPl-mCncon 04-03 Natriuretic peptide.B prohormone N-Terminal [Mass/Vol] 2908 pg/mL High <450 [facility] Comment on above: Order Comment: Speci men Type: BLOOD SPECIMENOrdering Facility: [facility] Address: [address] [place] [address] Performed By: #### 3 3762-6, [id number], 89085-1, 16483-0 ####VALLECILLO LABORATORYCLIA [id number] [place] [address] [place] XR CHEST 2V FRONTAL/LATon XR CHEST 2V FRONTAL/LAT Normal M [facility] Basic metabolic 2000 panelon 03-14-2024 Anion gap [Moles/Vol] 7 mmol/L Low 8-15 [facility] Comment on above: Order Comment: Speci men Type: BLOOD SPECIMENOrdering Facility: [facility] Address: [address] [place] [address] Performed By: #### 2 4321-2 ####VALLECILLO LABORATORYCLIA [id number] [place] [address] [place] Calcium [Mass/Vol] 8.4 mg/dL Low 8.5-10.2 [facility] Comment on above: Order Comment: Speci men Type: BLOOD SPECIMENOrdering Facility: [facility] Address: [address] [place] [address] Performed By: #### 2 4321-2 ####VALLECILLO LABORATORYCLIA [id number] [place] [address] [place] Chloride [Moles/Vol] 100 mmol/L Normal 98-107 [facility] Comment on above: Order Comment: Speci men Type: BLOOD SPECIMENOrdering Facility: [facility] Address: [address] [place] [address] Performed By: #### 2 4321-2 ####VALLECILLO LABORATORYCLIA [id number] [place] [address] [place] CO2 [Moles/Vol] 31 mmol/L High 22-30 [facility] Comment on above: Order Comment: Speci men Type: BLOOD SPECIMENOrdering Facility: [facility] Address: [address] [place], [place] [address] Performed By: #### 2 4321-2 ####VALLECILLO LABORATORYCLIA [id number] [place] [address] [place] Creatinine [Mass/Vol] 4.72 mg/dL High 0.73-1.22 [facility] Comment on above: Order Comment: Alise montejo Type: BLOOD SPECIMENOrdering Facility: [facility] Address: [address] [place] [address] Performed By: #### 2 4321-2 ####[facility] LABORATORYCLIA [id number] [address] Creatinine and Glomerular filtration rate.predicted panel (S/P/Bld) 12 mL/min/1.73m??? Low >=60 [facility] Comment on above: Order Comment: Alise montejo Type: BLOOD SPECIMENOrdering Facility: [facility] Address: [address] [place] [address] Result Comment: Anupama mated Glomerular Filtration Rate (eGFR) is calculated using the 2020 CKD-EPI creatinine equation. This equation utilizes serum creatinine, sex, and age as parameters. The creatinine assay has traceable calibration to isotope dilution-mass spectrometry. Refer to KDIGO guidelines for clinical interpretation. In patients with unstable renal function, e.g. those with acute kidney injury, the eGFR may not accurately reflect actual GFR. Performed By: #### 2 4321-2 ####VALLECILLO LABORATORYCLIA [id number] [address] [place] Glucose [Mass/Vol] 145 mg/dL High 74-99 [facility] Comment on above: Order Comment: Alise montejo Type: BLOOD SPECIMENOrdering Facility: [facility] Address: [address] [place] [address] Result Comment: The [place] Diabetes [employer] (ADA) provides guidance for cutoff values for fasting glucose and random glucose. The ADA defines fasting as no caloric intake for at least 8 hours. Fasting plasma glucose results between 100 to 125 mg/dL indicate increased risk for diabetes (prediabetes).Fasting plasma glucose results greater than or equal to 126 mg/dL meet the criteria for diagnosis of diabetes. In the absence of unequivocal hyperglycemia, results should be confirmed by repeat testing. In a patient with classic symptoms of hyperglycemia or hyperglycemic crisis, random plasma glucose results greater than or equal to 200 mg/dL meet the criteria for diagnosis of diabetes.Reference: Standards of Medical Care in Diabetes 2016, [place] [employer]. Diabetes Care. 2016.39(Suppl 1). Performed By: #### 2 4321-2 ####VALLECILLO LABORATORYCLIA [id number] [place] [address] [place] Potassium [Moles/Vol] 4.8 mmol/L Normal 3.7-5.1 [facility] Comment on above: Order Comment: Speci men Type: BLOOD SPECIMENOrdering Facility: [facility] Address: [address] [place] [address] Performed By: #### 2 4321-2 ####VALLECILLO LABORATORYCLIA [id number] [address] [place] Sodium [Moles/Vol] 138 mmol/L Normal 136-144 [facility] Comment on above: Order Comment: Alishai nikia Type: BLOOD SPECIMENOrdering Facility: [facility] Address: [address] [place] [address] Performed By: #### 2 4321-2 ####VALLECILLO LABORATORYCLIA [id number] [address] [place] Urea nitrogen [Mass/Vol] 33 mg/dL High 9-24 [facility] Comment on above: Order Comment: Alise montejo Type: BLOOD SPECIMENOrdering Facility: [facility] Address: [address] [place] [address] Performed By: #### 2 4321-2 ####VALLECILLO LABORATORYCLIA [id number] [place] [address] [place] CASE MANAGEMon 03-14-2024 CASE MANAGEM Normal [facility] CASE MANAGEM Normal [facility] CBC panel Auto (Bld)on 03-14 Erythrocyte distribution width (RBC) [Ratio] 17.8 % High 11.5-15.0 [facility] Comment on above: Order Comment: Alise montejo Type: BLOOD SPECIMENOrdering Facility: [facility] Address: [address] [place] [address] Performed By: #### 5 8410-2 ####VALLE[facility]LL[facility] LABORATORYCLIA [id number] [address] Hematocrit (Bld) [Volume fraction] 30.0 % Low 39.0-51.0 [facility] Comment on above: Order Comment: Speci men Type: BLOOD SPECIMENOrdering Facility: [facility] Address: [address] [place] [address] Performed By: #### 5 8410-2 ####VALLECILL[facility] LABORATORYCLIA [id number] [address] Hemoglobin (Bld) [Mass/Vol] 9.0 g/dL Low 13.0-17.0 [facility] Comment on above: Order Comment: Speci men Type: BLOOD SPECIMENOrdering Facility: [facility] Address: [address] [place] [address] Performed By: #### 5 8410-2 ####VALLE[facility]LL[facility] LABORATORYCLIA [id number] [address] MCH (RBC) [Entitic mass] 29.6 pg Normal 26.0-34.0 [facility] Comment on above: Order Comment: Speci men Type: BLOOD SPECIMENOrdering Facility: [facility] Address: [address] [place] [address] Performed By: #### 5 8410-2 ####VAL[facility]LL[facility] LABORATORYCLIA [id number] [address] MCHC (RBC) [Mass/Vol] 30.0 g/dL Low 30.5-36.0 [facility] Comment on above: Order Comment: Speci men Type: BLOOD SPECIMENOrdering Facility: [facility] Address: [address] [place] [address] Performed By: #### 5 8410-2 ####VAL[facility] LABORATORYCLIA [id number] [address] MCV (RBC) [Entitic vol] 98.7 fL Normal 80.0-100.0 [facility] Comment on above: Order Comment: Speci men Type: BLOOD SPECIMENOrdering Facility: [facility] Address: [address] [place] [address] Performed By: #### 5 8410-2 ####VALLECILL[facility] LABORATORYCLIA [id number] [place] [address] [place] Nucleated RBC (Bld) [#/Vol] 10*3/uL Normal <0.01 [facility] Comment on above: Order Comment: Speci men Type: BLOOD SPECIMENOrdering Facility: [facility] Address: [address] [place] [address] Performed By: #### 5 8410-2 ####[facility] LABORATORYCLIA [id number] [place] [address] [place] Platelet mean volume (Bld) [Entitic vol] 10.4 fL Normal 9.0-12.7 [facility] Comment on above: Order Comment: Speci men Type: BLOOD SPECIMENOrdering Facility: [facility] Address: [address] [place] [address] Performed By: #### 5 8410-2 ####VAL[facility]LL[facility] LABORATORYCLIA [id number] [address] [place] Platelets (Bld) [#/Vol] 156 10*3/uL Normal 150-400 [facility] Comment on above: Order Comment: Speci men Type: BLOOD SPECIMENOrdering Facility: [facility] Address: [address] [place] [address] Performed By: #### 5 8410-2 ####VALLE[facility] LABORATORYCLIA [id number] [place] [address] [place] RBC (Bld) [#/Vol] 3.04 10*6/uL Low 4.20-6.00 [facility] Comment on above: Order Comment: Speci men Type: BLOOD SPECIMENOrdering Facility: [facility] Address: [address] [place] [address] Performed By: #### 5 8410-2 ####VALLECILLO LABORATORYCLIA [id number] [address] [place] WBC (Bld) [#/Vol] 6.72 10*3/uL Normal 3.70-11.00 [facility] Comment on above: Order Comment: Speci men Type: BLOOD SPECIMENOrdering Facility: [facility] Address: [address] [place] [address] [place] [address] Performed By: #### 5 8410-2 ####VALLECILL[facility] LABORATORYCLIA [id number] [place] [address] [place] CNCOon 03-14-2024 CNCO Letter Text [facility] CNDSon 03-14-2024 CNDS [facility] CONSULT PROGon 03-14-2024 CONSULT PROG [facility] CONSULT PROG [facility] 2000 panelon 03-13-2024 Anion gap [Moles/Vol] 8 mmol/L Normal 8-15 [facility] Comment on above: Order Comment: Speci men Type: BLOOD SPECIMENOrdering Facility: [facility] Address: [address] [place] [address] Performed By: #### 2 4321-2 ####[facility] LABORATORYCLIA [id number] [place] [address] [place] Calcium [Mass/Vol] 8.5 mg/dL Normal 8.5-10.2 [facility] Comment on above: Order Comment: Speci men Type: BLOOD SPECIMENOrdering Facility: [facility] [facility] Address: [address] [place] [address] Performed By: #### 2 4321-2 ####VALLECILLO LABORATORYCLIA [id number] [place] [address] [place] Chloride [Moles/Vol] 97 mmol/L Low 98-107 [facility] Comment on above: Order Comment: Speci men Type: BLOOD SPECIMENOrdering Facility: [facility] Address: [address] [place] [address] Performed By: #### 2 4321-2 ####VALLECILLO LABORATORYCLIA [id number] [place] [address] [place] CO2 [Moles/Vol] 30 mmol/L Normal 22-30 [facility] Comment on above: Order Comment: Speci men Type: BLOOD SPECIMENOrdering Facility: [facility] Address: [address] [place] [address] Performed By: #### 2 4321-2 ####VALLECILLO LABORATORYCLIA [id number] [place] [id number] [place] Creatinine [Mass/Vol] 3.09 mg/dL High 0.73-1.22 [facility] Comment on above: Order Comment: Alise montejo Type: BLOOD SPECIMENOrdering Facility: [facility] Address: [address] [place] [address] Performed By: #### 2 4321-2 ####[facility] LABORATORYCLIA [id number] [place] [id number] [facility] Creatinine and Glomerular filtration rate.predicted panel (S/P/Bld) 20 mL/min/1.73m??? Low >=60 [facility] Comment on above: Order Comment: Alise montejo Type: BLOOD SPECIMENOrdering Facility: [facility] Address: [address] [place] [address] Result Comment: Anupama mated Glomerular Filtration Rate (eGFR) is calculated using the 2020 CKD-EPI creatinine equation. This equation utilizes serum creatinine, sex, and age as parameters. The creatinine assay has traceable calibration to isotope dilution-mass spectrometry. Refer to KDIGO guidelines for clinical interpretation. In patients with unstable renal function, e.g. those with acute kidney injury, the eGFR may not accurately reflect actual GFR. Performed By: #### 2 4321-2 ####VALLECILLO LABORATORYCLIA [id number] [place] [id number] [place] Glucose [Mass/Vol] 131 mg/dL High 74-99 [facility] Comment on above: Order Comment: Alise montejo Type: BLOOD SPECIMENOrdering Facility: [facility] Address: [address] [place] [address] Result Comment: The [place] Diabetes Association (ADA) provides guidance for cutoff values for fasting glucose and random glucose. The ADA defines fasting as no caloric intake for at least 8 hours. Fasting plasma glucose results between 100 to 125 mg/dL indicate increased risk for diabetes (prediabetes).Fasting plasma glucose results greater than or equal to 126 mg/dL meet the criteria for diagnosis of diabetes. In the absence of unequivocal hyperglycemia, results should be confirmed by repeat testing. In a patient with classic symptoms of hyperglycemia or hyperglycemic crisis, random plasma glucose results greater than or equal to 200 mg/dL meet the criteria for diagnosis of diabetes.Reference: Standards of Medical Care in Diabetes 2016, [place] Diabetes Association. Diabetes Care. 2016.39(Suppl 1). Performed By: #### 2 4321-2 ####VALLECILLO LABORATORYCLIA [id number] [address] STATES OF [facility] Potassium [Moles/Vol] 4.2 mmol/L Normal 3.7-5.1 [facility] Comment on above: Order Comment: Alise montejo Type: BLOOD SPECIMENOrdering Facility: [facility] Address: [address] [place] [address] Performed By: #### 2 4321-2 ####VALLECILLO LABORATORYCLIA [id number] [address] STATES [facility] Sodium [Moles/Vol] 135 mmol/L Low 136-144 [facility] Comment on above: Order Comment: Alise montejo Type: BLOOD SPECIMENOrdering Facility: [facility] Address: [address] [place] [address] Performed By: #### 2 4321-2 ####VALLECILLO LABORATORYCLIA [id number] [address] STATES [facility] Urea nitrogen [Mass/Vol] 17 mg/dL Normal 9-24 [facility] Comment on above: Order Comment: Alise montejo Type: BLOOD SPECIMENOrdering Facility: [facility] Address: [address] [place] [address] Performed By: #### 2 4321-2 ####VALLECILLO LABORATORYCLIA [id number] [address] [place] CBC panel Auto (Bld)on 03-13 Erythrocyte distribution width (RBC) [Ratio] 17.4 % High 11.5-15.0 [facility] Comment on above: Order Comment: Alies montejo Type: BLOOD SPECIMENOrdering Facility: [facility] Address: [address] [place] [address] Performed By: #### 5 8410-2 ####VALLECILLO LABORATORYCLIA [id number] [place] [address] [place] Hematocrit (Bld) [Volume fraction] 31.5 % Low 39.0-51.0 [facility] Comment on above: Order Comment: Speci men Type: BLOOD SPECIMENOrdering Facility: [facility] Address: [address] [place] [address] Performed By: #### 5 8410-2 ####VALLECILLO LABORATORYCLIA [id number] [address] [place] Hemoglobin (Bld) [Mass/Vol] 9.5 g/dL Low 13.0-17.0 [facility] Comment on above: Order Comment: Speci men Type: BLOOD SPECIMENOrdering Facility: [facility] Address: [address] [place] [address] Performed By: #### 5 8410-2 ####VALLECILLO LABORATORYCLIA [id number] [address] [place] MCH (RBC) [Entitic mass] 29.8 pg Normal 26.0-34.0 [facility] Comment on above: Order Comment: Speci men Type: BLOOD SPECIMENOrdering Facility: [facility] Address: [address] [place] [address] Performed By: #### 5 8410-2 ####VALLECILLO LABORATORYCLIA [id number] [address] [place] MCHC (RBC) [Mass/Vol] 30.2 g/dL Low 30.5-36.0 [facility] Comment on above: Order Comment: Speci men Type: BLOOD SPECIMENOrdering Facility: [facility] Address: [address] [place] [address] Performed By: #### 5 8410-2 ####VALLECILLO LABORATORYCLIA [id number] [address] STATES [facility] MCV (RBC) [Entitic vol] 98.7 fL Normal 80.0-100.0 [facility] Comment on above: Order Comment: Speci men Type: BLOOD SPECIMENOrdering Facility: [facility] Address: [address] [place] [address] Performed By: #### 5 8410-2 ####VALLECILLO LABORATORYCLIA [id number] [place] [address] [place] Nucleated RBC (Bld) [#/Vol] 10*3/uL Normal <0.01 [facility] Comment on above: Order Comment: Speci men Type: BLOOD SPECIMENOrdering Facility: [facility] Address: [address] [place] [address] Performed By: #### 5 8410-2 ####VALLECILLO LABORATORYCLIA [id number] [place] [address] [place] Platelet mean volume (Bld) [Entitic vol] 10.1 fL Normal 9.0-12.7 [facility] Comment on above: Order Comment: Speci men Type: BLOOD SPECIMENOrdering Facility: [facility] Address: [address] [place] [address] Performed By: #### 5 8410-2 ####VALLECILLO LABORATORYCLIA [id number] [place] [address] [place] Platelets (Bld) [#/Vol] 153 10*3/uL Normal 150-400 [facility] Comment on above: Order Comment: Speci men Type: BLOOD SPECIMENOrdering Facility: [facility] Address: [address] [place] [address] Performed By: #### 5 8410-2 ####VALLECILLO LABORATORYCLIA [id number] [place] [address] [place] RBC (Bld) [#/Vol] 3.19 10*6/uL Low 4.20-6.00 [facility] Comment on above: Order Comment: Speci men Type: BLOOD SPECIMENOrdering Facility: [facility] Address: [address] [place] [address] Performed By: #### 5 8410-2 ####VALLECILLO LABORATORYCLIA [id number] [place] [id number] [place] WBC (Bld) [#/Vol] 7.43 10*3/uL Normal 3.70-11.00 [facility] Comment on above: Order Comment: Speci men Type: BLOOD SPECIMENOrdering Facility: [facility] Address: [address] [place] [address] Performed By: #### 5 8410-2 ####VALLECILLO LABORATORYCLIA [id number] [address] [place] CONSULT PROGon 03-13-2024 CONSULT PRO Normal [facility] CONSULT PROG Normal [facility] ALLIED HEALTHon 03-12-2024 ALLIED [facility] Normal [facility] Normal [facility] ALLIED HEALTH Normal [facility] ALLIED [facility] Normal [facility] BODY FLUID CELL COUNTon Clarity (Unsp spec) Clear Normal Clear [facility] Comment on above: Order Comment: Speci men Type: FLUID SPECIMENOrdering Facility: [facility] Address: [address] [place] [address] Performed By: #### L [id number], CCBF ####VALLECILLO LABORATORYCLIA [id number] [address] Color (Body fld) Yellow Normal Yellow [facility] Comment on above: Order Comment: Speci men Type: FLUID SPECIMENOrdering Facility: [facility] Address: [address] [place] [address] Performed By: #### L [id number], CCBF ####VALLECILLO LABORATORYCLIA [id number] [address] [place] RBC Manual cnt (Body fld) [#/Vol] <2000 Normal <2000 [facility] Comment on above: Order Comment: Speci men Type: FLUID SPECIMENOrdering Facility: [facility] Address: [address] [place] [address] Performed By: #### L [id number], CCBF ####VALLECILLO LABORATORYCLIA [id number] [address] Specimen source Nom (Body fld) Pleural Cavity, Right Normal [facility] Comment on above: Order Comment: Speci men Type: FLUID SPECIMENOrdering Facility: [facility] Address: [address] [place] [address] Performed By: #### L [id number], CCBF ####VALLECILLO LABORATORYCLIA [id number] [place] [address] [place] WBC Manual cnt (Body fld) [#/Vol] 431 /uL Normal <1000 [facility] Comment on above: Order Comment: Speci men Type: FLUID SPECIMENOrdering Facility: [facility] Address: [address] [place] [address] Performed By: #### L [id number], CCBF ####[facility] LABORATORYCLIA [id number] [place] [address] [place] BRIEF OP NOTon 03-12-2024 BRIEF OP NOT Normal [facility] Bacteria Fld Culton 03-12-20 24 Bacteria identified Cx Nom (Body fld) CULTURE, BODY FLD: No growth GRAM STAIN: No organisms seen Moderate Polymorphonuclear leukocytes Many Mononuclear cells Gram stain performed on cytospun specimen. Gram stain from primary specimen Normal [facility] Comment on above: Performed By: #### 1 1475-1, 580-1, 611-4 ####[facility] LABCLIA [id number] [facility] [id number] [address] [place] CASE MGT INIT ASSESon 2023 [facility] CBC panel Auto (Bld)on 03-12 Erythrocyte distribution width (RBC) [Ratio] 18.2 % High 11.5-15.0 [facility] Comment on above: Order Comment: Speci men Type: BLOOD SPECIMENOrdering Facility: [facility] Address: [address] [place], [place] [id number] Performed By: #### 5 8410-2 ####ROY[facility] OAK LABORATORYCLIA [id number] [place] [id number] [place] Hematocrit (Bld) [Volume fraction] 32.4 % Low 39.0-51.0 [facility] Comment on above: Order Comment: Speci men Type: BLOOD SPECIMENOrdering Facility: [facility] Address: [address] [place] [address] Performed By: #### 5 8410-2 ####[facility] O[facility] LABORATORYCLIA [id number] [place] [address] [place] Hemoglobin (Bld) [Mass/Vol] 9.7 g/dL Low 13.0-17.0 [facility] Comment on above: Order Comment: Speci men Type: BLOOD SPECIMENOrdering Facility: [facility] Address: [address] [place] [address] Performed By: #### 5 8410-2 ####VALLECILLO LABORATORYCLIA [id number] [address] MCH (RBC) [Entitic mass] 29.5 pg Normal 26.0-34.0 [facility] Comment on above: Order Comment: Speci men Type: BLOOD SPECIMENOrdering Facility: [facility] Address: [address] [place] [address] Performed By: #### 5 8410-2 ####VALLECILLO LABORATORYCLIA [id number] [address] MCHC (RBC) [Mass/Vol] 29.9 g/dL Low 30.5-36.0 [facility] Comment on above: Order Comment: Speci men Type: BLOOD SPECIMENOrdering Facility: [facility] Address: [address] [place] [address] Performed By: #### 5 8410-2 ####VALLECILLO LABORATORYCLIA [id number] [address] MCV (RBC) [Entitic vol] 98.5 fL Normal 80.0-100.0 [facility] Comment on above: Order Comment: Speci men Type: BLOOD SPECIMENOrdering Facility: [facility] Address: [address] [place] [address] Performed By: #### 5 8410-2 ####VALLECILLO LABORATORYCLIA [id number] [address] Nucleated RBC (Bld) [#/Vol] 10*3/uL Normal <0.01 [facility] Comment on above: Order Comment: Speci men Type: BLOOD SPECIMENOrdering Facility: [facility] Address: [address] [place] [address] Performed By: #### 5 8410-2 ####VALLECILLO LABORATORYCLIA [id number] [place] [address] [place] Platelet mean volume (Bld) [Entitic vol] 10.2 fL Normal 9.0-12.7 [facility] Comment on above: Order Comment: Speci men Type: BLOOD SPECIMENOrdering Facility: [facility] Address: [address] [place] [address] Performed By: #### 5 8410-2 ####VALLECILLO LABORATORYCLIA [id number] [place] [address] [place] Platelets (Bld) [#/Vol] 185 10*3/uL Normal 150-400 [facility] Comment on above: Order Comment: Speci men Type: BLOOD SPECIMENOrdering Facility: [facility] Address: [address] [place] [address] Performed By: #### 5 8410-2 ####VALLECILLO LABORATORYCLIA [id number] [address] [place] RBC (Bld) [#/Vol] 3.29 10*6/uL Low 4.20-6.00 [facility] Comment on above: Order Comment: Speci men Type: BLOOD SPECIMENOrdering Facility: [facility] Address: [address] [place] [address] Performed By: #### 5 8410-2 ####VALLECILLO LABORATORYCLIA [id number] [address] [place] WBC (Bld) [#/Vol] 7.14 10*3/uL Normal 3.70-11.00 [facility] Comment on above: Order Comment: Speci men Type: BLOOD SPECIMENOrdering Facility: [facility] Address: [address] [place] [address] Performed By: #### 5 8410-2 ####VALLECILLO LABORATORYCLIA [id number] [address] [place] CONSULTon 03-12-2024 CONSULT Normal [facility] CONSULT Normal [facility] CONSULT Normal [facility] CT CHEST WO IVCONon 03-12-20 CT CHEST WO IVCON Normal [facility] Comprehensive metabolic 2000 panelon 03-12-2024 Albumin [Mass/Vol] 3.5 g/dL Low 3.9-4.9 [facility] Comment on above: Order Comment: Speci men Type: BLOOD SPECIMENOrdering Facility: [facility] Address: [address] [place] [address] Performed By: #### 1 23-9, 77253-2 ####VALLECILLO LABORATORYCLIA [id number] [place] [address] [place] ALP [Catalytic activity/Vol] 90 U/L Normal 38-113 [facility] Comment on above: Order Comment: Speci men Type: BLOOD SPECIMENOrdering Facility: [facility] Address: [address] [facility] [place] [address] Performed By: #### 1 239, 39948-0 ####VALLECILLO LABORATORYCLIA [id number] [place] [address] [place] ALT [Catalytic activity/Vol] 20 U/L Normal 10-54 [facility] Comment on above: Order Comment: Speci men Type: BLOOD SPECIMENOrdering Facility: [facility] Address: [address] [place] [address] Performed By: #### 1 239, ####VALLECILLO LABORATORYCLIA [id number] [place] [address] [place] Anion gap [Moles/Vol] 8 mmol/L Normal 8-15 [facility] Comment on above: Order Comment: Speci men Type: BLOOD SPECIMENOrdering Facility: [facility] Address: [address] [place] [address] Performed By: #### 1 239, 23940-8 ####VALLECILLO LABORATORYCLIA [id number] [place] [address] [place] AST [Catalytic activity/Vol] 19 U/L Normal 14-40 [facility] Comment on above: Order Comment: Speci men Type: BLOOD SPECIMENOrdering Facility: [facility] Address: [address] [place] [address] Performed By: #### 1 23-9, 01328-5 ####VALLECILLO LABORATORYCLIA [id number] [place] [address] [place] Bilirubin [Mass/Vol] 0.2 mg/dL Normal 0.2-1.3 [facility] Comment on above: Order Comment: Speci men Type: BLOOD SPECIMENOrdering Facility: [facility] Address: [facility] [place] [address] Performed By: #### 1 23-9, ####VALLECILLO LABORATORYCLIA [id number] [place] [address] [place] Calcium [Mass/Vol] 8.6 mg/dL Normal 8.5-10.2 [facility] Comment on above: Order Comment: Speci men Type: BLOOD SPECIMENOrdering Facility: [facility] Address: [address] [place] [address] Performed By: #### 1 9, ####VALLECILLO LABORATORYCLIA [id number] [place] [address] [place] Chloride [Moles/Vol] 98 mmol/L Normal 98-107 [facility] Comment on above: Order Comment: Speci men Type: BLOOD SPECIMENOrdering Facility: [facility] Address: [address] [place] [address] Performed By: #### 1 9, ####VALLECILLO LABORATORYCLIA [id number] [place] [address] [place] CO2 [Moles/Vol] 34 mmol/L High 22-30 [facility] Comment on above: Order Comment: Speci men Type: BLOOD SPECIMENOrdering Facility: [facility] Address: [address] [place] [address] Performed By: #### 1 9, ####VALLECILLO LABORATORYCLIA [id number] [place] [address] [place] Creatinine [Mass/Vol] 4.02 mg/dL High 0.73-1.22 [facility] Comment on above: Order Comment: Speci men Type: BLOOD SPECIMENOrdering Facility: [facility] Address: [address] [place] [address] Performed By: #### 1 23-9, 14669-5 ####VALLECILLO LABORATORYCLIA [id number] [place] [address] [place] Creatinine and Glomerular filtration rate.predicted panel (S/P/Bld) 15 mL/min/1.73m??? Low >=60 [facility] Comment on above: Order Comment: Alise montejo Type: BLOOD SPECIMENOrdering Facility: [facility] Address: [address] [place] [address] Result Comment: Anupama mated Glomerular Filtration Rate (eGFR) is calculated using the 2020 CKD-EPI creatinine equation. This equation utilizes serum creatinine, sex, and age as parameters. The creatinine assay has traceable calibration to isotope dilution-mass spectrometry. Refer to KDIGO guidelines for clinical interpretation. In patients with unstable renal function, e.g. those with acute kidney injury, the eGFR may not accurately reflect actual GFR. Performed By: #### 1 9123-9, 04972-0 ####[facility] LABORATORYCLIA [id number] [place] [address] [place] Glucose [Mass/Vol] 270 mg/dL High 74-99 [facility] Comment on above: Order Comment: Alise montejo Type: BLOOD SPECIMENOrdering Facility: [facility] Address: [address] [place] [address] Result Comment: The [place] Diabetes Association (ADA) provides guidance for cutoff values for fasting glucose and random glucose. The ADA defines fasting as no caloric intake for at least 8 hours. Fasting plasma glucose results between 100 to 125 mg/dL indicate increased risk for diabetes (prediabetes).Fasting plasma glucose results greater than or equal to 126 mg/dL meet the criteria for diagnosis of diabetes. In the absence of unequivocal hyperglycemia, results should be confirmed by repeat testing. In a patient with classic symptoms of hyperglycemia or hyperglycemic crisis, random plasma glucose results greater than or equal to 200 mg/dL meet the criteria for diagnosis of diabetes.Reference: Standards of Medical Care in Diabetes 2016, [place] [employer]. Diabetes Care. 2016.39(Suppl 1). Performed By: #### 1 9123-9, 20756-8 ####[facility] LABORATORYCLIA [id number] [place] [id number] [place] Potassium [Moles/Vol] 4.6 mmol/L Normal 3.7-5.1 [facility] Comment on above: Order Comment: Speci men Type: BLOOD SPECIMENOrdering Facility: [facility] Address: [address] [place] [address] Performed By: #### 1 23-9, 72088-5 ####VALLECILLO LABORATORYCLIA [id number] [address] STATES [facility] Protein [Mass/Vol] 6.9 g/dL Normal 6.3-8.0 [facility] Comment on above: Order Comment: Speci men Type: BLOOD SPECIMENOrdering Facility: [facility] Address: [address] [place] [address] Performed By: #### 1 23-9, 54777-0 ####VALLECILLO LABORATORYCLIA [id number] [place] [address] [place] Sodium [Moles/Vol] 140 mmol/L Normal 136-144 [facility] Comment on above: Order Comment: Speci men Type: BLOOD SPECIMENOrdering Facility: [facility] Address: [address] [place] [address] Performed By: #### 1 23-9, 04917-2 ####VALLECILL[facility] LABORATORYCLIA [id number] [place] [address] [place] Urea nitrogen [Mass/Vol] 23 mg/dL Normal 9-24 [facility] Comment on above: Order Comment: Speci men Type: BLOOD SPECIMENOrdering Facility: [facility] Address: [address] [place] [address] Performed By: #### 1 9123-9, 15743-8 ####VALLE[facility]LL[facility] LABORATORYCLIA [id number] [place] [address] [place] ECG COMPLETEon 03-12-2024 ECG COMPLETE Normal [facility] Fungus Spec Culton Fungus identified Cx Nom (Unsp spec) CULTURE, FUNGAL: No Fungus isolated after 28 days Normal [facility] Comment on above: Performed By: #### 1 1475-1, 580-1, 611-4 ####[facility] LABCLIA [id number] [facility] [id number] [address] [place] LDH Fld-cCncon 03-12-2024 LDH (Body fld) [Catalytic activity/Vol] 80 U/L Normal See Comment [facility] Comment on above: Order Comment: Speci men Type: FLUID SPECIMENOrdering Facility: [facility] Address: [address] [place] [address] Result Comment: Pleu ral fluids: Pleural fluid lactate dehydrogenase (LDH) measurements may be useful for classifying pleural effusions as exudates. A ratio of pleural fluid LDH to a concurrent serum LDH > 0.6 is suggestive of exudate.Peritoneal fluids: Ascitic fluid LDH measurements may aid in characterizing secondary peritonitis and should be interpreted along with other clinical and laboratory information.Synovial fluids: Synovial fluid LDH measurements may be useful as an inflammatory marker for various arthritic conditions and should be interpreted along with other clinical and laboratory information.Reference: 1. CLSI. Analysis of Body Fluids in Clinical Chemistry Approved Guideline. CLSI document C49A. JERRY Mercedes: Clinical Laboratory Standards [place]: 2007.Reference: 2. Christiana ARENAS, Drea Becerra. Body fluid analysis: clinical utility and applicability of published studies to guide interpretation of today's laboratory testing in serous fluids. Crit Rev Clin Lab Sci, 2013:50(4,5):107 to 124.Reference: 3. Felicia M, Brayden A, Ai ARENAS. Lactate dehydrogenase activity and its isoenzymes in serum and synovial fluid of patients with rheumatoid arthritis and osteoarthritis. J Rheumatol. 1992:19:529 to 533. Performed By: #### 2 529-6 ####[facility] LABCLIA [id number] [place] [address] [place] LDH SerPl-cCncon 03-12-2024 LDH [Catalytic activity/Vol] 200 U/L Normal 135-225 [facility] Comment on above: Order Comment: Speci men Type: BLOOD SPECIMENOrdering Facility: [facility] Address: [address] [place] [address] Performed By: #### 2 532-0 ####[facility] LABCLIA [id number] [place] [address] [place] MANUAL DIFFERENTIAL, BODY FL UIDon 08-07-2024 DIF TTL, BODY FLUID 100 cells counted Normal [facility] Comment on above: Order Comment: Speci men Type: FLUID SPECIMENOrdering Facility: [facility] Address: [address] [place] [address] Performed By: #### L [id number], CCBF ####[facility] LABORATORYCLIA [id number] [address] [place] LYMPH%, BF 23 % Normal 18-36 [facility] Comment on above: Order Comment: Speci men Type: FLUID SPECIMENOrdering Facility: [facility] Address: [address] [place] [address] Performed By: #### L [id number], CCBF ####[facility] LABORATORYCLIA [id number] [address] [place] MACRO%, BF 43 % Low 64-80 [facility] Comment on above: Order Comment: Speci men Type: FLUID SPECIMENOrdering Facility: [facility] Address: [address] [place] [address] Performed By: #### L [id number], CCBF ####[facility] LABORATORYCLIA [id number] [address] [place] %, BF 2 % Normal 0-2 [facility] Comment on above: Order Comment: Speci men Type: FLUID SPECIMENOrdering Facility: [facility] Address: [address] [place] [address] Performed By: #### L [id number], CCBF ####[facility]O LABORATORYCLIA [id number] [address] MONO% BF 18 % Normal [facility] Comment on above: Order Comment: Speci men Type: FLUID SPECIMENOrdering Facility: [facility] Address: [address] [place] [address] Performed By: #### L [id number], CCBF ####[facility] LABORATORYCLIA [id number] [address] [place] NEUT%, BF 14 % High 0-1 [facility] Comment on above: Order Comment: Speci men Type: FLUID SPECIMENOrdering Facility: [facility] Address: [address] [place] [address] Performed By: #### L [id number], CC ####[facility] LABORATORYCLIA [id number] [place] [address] [place] MEDICAL EMERon 03-12-2024 MEDICAL [place] [facility] Magnesium SerPl-ncon 03-12 Magnesium [Mass/Vol] 1.9 mg/dL Normal 1.7-2.3 [facility] Comment on above: Order Comment: Speci men Type: BLOOD SPECIMENOrdering Facility: [facility] Address: [address] [place] [address] Performed By: #### 1 9123-9, 42911-5 ####[facility] LABORATORYCLIA [id number] [address] Microorganism Spec Culton Microorganism identified Cx Nom (Unsp spec) CULTURE, AFB: No Acid Fast Bacilli isolated after 42 days AFB STAIN: No acid fast bacilli seen by flurochrome stain [facility] Comment on above: Performed By: #### 1 1475-1, 580-1, 611-4 ####[facility] LABCLIA [id number] [address] [place] NURSING PROGon 03-12-2024 NURSING PROG [facility] NURSING PROG [facility] NURSING PROG [facility] NUTRITIONon 03-12-2024 NUTRITION [facility] PT EDon 03-12-2024 PT ED [facility] Prot Fld-ncon 03-12-2024 Protein (Body fld) [Mass/Vol] 2.9 g/dL Normal See Comment [facility] Comment on above: Order Comment: Speci men Type: SPECIMEN FROM PLEURA OBTAINED BY THORACENTESISOrdering Facility: [facility] Address: [address] [place] [address] Result Comment: Sero us fluids: Effusions are the accumulation of clinically detected fluid in any of the serous cavities. Effusions are further into transudates and exudates, which aid in determining the etiology of the effusion.Transudate: Body fluid total protein measurement < 3.0 g/dL. A ratio of serous fluid total protein to a concurrent serum total protein < 0.5 indicates a transudate.Exudate: Body fluid total protein measurement >= 3.0 g/dL. A ratio of serous fluid total protein to a concurrent serum total protein >= 0.5 indicates an exudate.Reference: 1. CLSI. Analysis of Body Fluids in Clinical Chemistry Approved Guideline. CLSI document C49A. JERRY Mercedes: Clinical Laboratory Standards [place]: 2007. Performed By: #### 2 881-1 ####[facility] LABCLIA [id number] [facility] [id number] [place] [address] [place] US CHEST EFFUSION SURVEYon 0 03-12-2024 CHEST EFFUSION SURVEY Normal [facility] US THORACENTESIS BIon 2023 THORACENTESIS BI Normal [facility] XR CHEST 1V FRONTALon 2023 XR CHEST 1V FRONTAL Normal [facility] XR CHEST 1V FRONTAL Normal [facility] XR CHEST 1V FRONTAL PORTon 0 03-12-2024 XR CHEST 1V FRONTAL PORT Normal [facility] CBC W Auto Differential pane l (Bld)on 03-11-2024 Basophils (Bld) [#/Vol] 0.06 10*3/uL Normal <0.11 [facility] Comment on above: Order Comment: Speci men Type: BLOOD SPECIMENOrdering Facility: [facility] Address: [address] [place] [address] Performed By: #### 5 7021-8 ####[facility] LABORATORYCLIA [id number] [place] [address] [place] Basophils/100 WBC (Bld) 0.8 % Normal [facility] Comment on above: Order Comment: Speci men Type: BLOOD SPECIMENOrdering Facility: [facility] Address: [address] [place] [address] Performed By: #### 5 7021-8 ####[facility] LABORATORYCLIA [id number] [place] [address] [place] Differential cell count method Nom (Bld) Auto Normal [facility] Comment on above: Order Comment: Speci men Type: BLOOD SPECIMENOrdering Facility: [facility] Address: [address] [place] [address] Performed By: #### 5 7021-8 ####[facility] LABORATORYCLIA [id number] [place] [address] [place] Eosinophils (Bld) [#/Vol] 0.53 10*3/uL High <0.46 [facility] Comment on above: Order Comment: Speci men Type: BLOOD SPECIMENOrdering Facility: [facility] Address: [address] [place] [address] Performed By: #### 5 7021-8 ####[facility] LABORATORYCLIA [id number] [place] [address] [place] Eosinophils/100 WBC (Bld) 7.3 % Normal [facility] Comment on above: Order Comment: Speci men Type: BLOOD SPECIMENOrdering Facility: [facility] Address: [address] [place] [address] Performed By: #### 5 7021-8 ####VAL[facility]LL[facility] LABORATORYCLIA [id number] [place] [address] [place] Erythrocyte distribution width (RBC) [Ratio] 18.0 % High 11.5-15.0 [facility] Comment on above: Order Comment: Speci men Type: BLOOD SPECIMENOrdering Facility: [facility] Address: [address] [place] [address] Performed By: #### 5 7021-8 ####[facility] LABORATORYCLIA [id number] [address] [place] Hematocrit (Bld) [Volume fraction] 27.8 % Low 39.0-51.0 [facility] Comment on above: Order Comment: Speci men Type: BLOOD SPECIMENOrdering Facility: [facility] Address: [address] [place] [address] Performed By: #### 5 7021-8 ####[facility] LABORATORYCLIA [id number] [place] [address] [place] Hemoglobin (Bld) [Mass/Vol] 8.7 g/dL Low 13.0-17.0 [facility] Comment on above: Order Comment: Speci men Type: BLOOD SPECIMENOrdering Facility: [facility] Address: [address] [place] [address] Performed By: #### 5 7021-8 ####[facility] LABORATORYCLIA [id number] [place] [address] [place] Immature granulocytes (Bld) [#/Vol] 10*3/uL Normal <0.10 [facility] Comment on above: Order Comment: Speci men Type: BLOOD SPECIMENOrdering Facility: [facility] Address: [address] [place] [address] Performed By: #### 5 7021-8 ####VAL[facility]CILL[facility] LABORATORYCLIA [id number] [place] [address] [place] Immature granulocytes/100 WBC (Bld) 0.3 % Normal [facility] Comment on above: Order Comment: Speci men Type: BLOOD SPECIMENOrdering Facility: [facility] Address: [address] [place] [address] Performed By: #### 5 7021-8 ####VALLECILLO LABORATORYCLIA [id number] [place] [address] [place] Lymphocytes (Bld) [#/Vol] 1.08 10*3/uL Normal 1.00-4.00 [facility] Comment on above: Order Comment: Speci men Type: BLOOD SPECIMENOrdering Facility: [facility] Address: [address] [place] [address] Performed By: #### 5 7021-8 ####VALLE[facility]LL[facility] LABORATORYCLIA [id number] [place] [address] [place] Lymphocytes/100 WBC (Bld) 14.9 % Normal [facility] Comment on above: Order Comment: Speci men Type: BLOOD SPECIMENOrdering Facility: [facility] Address: [address] [place] [address] Performed By: #### 5 7021-8 ####VAL[facility]LL[facility] LABORATORYCLIA [id number] [place] [address] [place] MCH (RBC) [Entitic mass] 30.4 pg Normal 26.0-34.0 [facility] Comment on above: Order Comment: Speci men Type: BLOOD SPECIMENOrdering Facility: [facility] Address: [address] [place] [address] Performed By: #### 5 7021-8 ####VALLECILLO LABORATORYCLIA [id number] [address] STATES [facility] MCHC (RBC) [Mass/Vol] 31.3 g/dL Normal 30.5-36.0 [facility] Comment on above: Order Comment: Speci men Type: BLOOD SPECIMENOrdering Facility: [facility] Address: [address] [place] [address] Performed By: #### 5 7021-8 ####VALLE[facility]LL[facility] LABORATORYCLIA [id number] [address] MCV (RBC) [Entitic vol] 97.2 fL Normal 80.0-100.0 [facility] Comment on above: Order Comment: Speci men Type: BLOOD SPECIMENOrdering Facility: [facility] Address: [address] [place] [address] Performed By: #### 5 7021-8 ####VAL[facility] LABORATORYCLIA [id number] [address] [place] Monocytes (Bld) [#/Vol] 0.83 10*3/uL Normal <0.87 [facility] Comment on above: Order Comment: Speci men Type: BLOOD SPECIMENOrdering Facility: [facility] Address: [address] [place] [address] Performed By: #### 5 7021-8 ####[facility] LABORATORYCLIA [id number] [address] Monocytes/100 WBC (Bld) 11.4 % Normal [facility] Comment on above: Order Comment: Speci men Type: BLOOD SPECIMENOrdering Facility: [facility] Address: [address] [place] [address] Performed By: #### 5 7021-8 ####[facility] LABORATORYCLIA [id number] [address] [place] Neutrophils (Bld) [#/Vol] 4.75 10*3/uL Normal 1.45-7.50 [facility] Comment on above: Order Comment: Speci men Type: BLOOD SPECIMENOrdering Facility: [facility] Address: [address] [place] [address] Performed By: #### 5 7021-8 ####VAL[facility] LABORATORYCLIA [id number] [address] [place] Neutrophils/100 WBC (Bld) 65.3 % Normal [facility] Comment on above: Order Comment: Speci men Type: BLOOD SPECIMENOrdering Facility: [facility] Address: [address] [place] [address] Performed By: #### 5 7021-8 ####VAL[facility] LABORATORYCLIA [id number] [place] [address] [place] Nucleated RBC (Bld) [#/Vol] 10*3/uL Normal <0.01 [facility] Comment on above: Order Comment: Speci men Type: BLOOD SPECIMENOrdering Facility: [facility] Address: [address] [place] [address] Performed By: #### 5 7021-8 ####VALLE[facility]LL[facility] LABORATORYCLIA [id number] [address] [place] Nucleated RBC/100 WBC (Bld) [Ratio] 0.0 /100 WBC Normal [facility] Comment on above: Order Comment: Speci men Type: BLOOD SPECIMENOrdering Facility: [facility] Address: [address] [place] [address] Performed By: #### 5 7021-8 ####VALLE[facility]LL[facility] LABORATORYCLIA [id number] [place] [address] [place] Platelet mean volume (Bld) [Entitic vol] 10.1 fL Normal 9.0-12.7 [facility] Comment on above: Order Comment: Speci men Type: BLOOD SPECIMENOrdering Facility: [facility] Address: [address] [place] [address] Performed By: #### 5 7021-8 ####VALLECILL[facility] LABORATORYCLIA [id number] [place] [address] [place] Platelets (Bld) [#/Vol] 173 10*3/uL Normal 150-400 [facility] Comment on above: Order Comment: Speci men Type: BLOOD SPECIMENOrdering Facility: [facility] Address: [address] [place] [address] Performed By: #### 5 7021-8 ####VALLECILLO LABORATORYCLIA [id number] [address] OF [facility] RBC (Bld) [#/Vol] 2.86 10*6/uL Low 4.20-6.00 [facility] Comment on above: Order Comment: Speci men Type: BLOOD SPECIMENOrdering Facility: [facility] Address: [address] [place] [address] Performed By: #### 5 7021-8 ####VALLE[facility] LABORATORYCLIA [id number] [address] WBC (Bld) [#/Vol] 7.27 10*3/uL Normal 3.70-11.00 [facility] Comment on above: Order Comment: Speci men Type: BLOOD SPECIMENOrdering Facility: [facility] Address: [address] [place] [address] Performed By: #### 5 7021-8 ####[facility] LABORATORYCLIA [id number] [address] Comprehensive metabolic 2000 panelon 03-11-2024 Albumin [Mass/Vol] 3.3 g/dL Low 3.9-4.9 [facility] Comment on above: Order Comment: Speci men Type: BLOOD SPECIMENOrdering Facility: [facility] Address: [address] [place] [address] Performed By: #### 3 3762-6, 72442-2, 24651-6 ####[facility] LABORATORYCLIA [id number] [place] [id number] [facility] ALP [Catalytic activity/Vol] 83 U/L Normal 38-113 [facility] Comment on above: Order Comment: Speci men Type: BLOOD SPECIMENOrdering Facility: [facility] Address: [address] [place] [address] Performed By: #### 3 3762-6, 47657-4, 08960-4 ####VAL[facility] LABORATORYCLIA [id number] [place] [address] [place] ALT [Catalytic activity/Vol] Normal [facility] Comment on above: Order Comment: Speci men Type: BLOOD SPECIMENOrdering Facility: [facility] Address: [address] [place] [address] Result Comment: Unab le to assay due to interference from hemolysis. Suggest reorder as clinically indicated. Performed By: #### 3 3762-6, 05890-0, ####VALLE[facility]LL[facility] LABORATORYCLIA [id number] [place] [address] [place] Anion gap [Moles/Vol] 8 mmol/L Normal 8-15 [facility] Comment on above: Order Comment: Speci men Type: BLOOD SPECIMENOrdering Facility: [facility] Address: [address] [place] [address] Performed By: #### 3 3762-6, 70056-9, ####[facility] LABORATORYCLIA [id number] [address] STATES OF [facility] AST [Catalytic activity/Vol] Normal [facility] Comment on above: Order Comment: Speci men Type: BLOOD SPECIMENOrdering Facility: [facility] Address: [address] [place] [address] Result Comment: Unab le to assay due to interference from hemolysis. Suggest reorder as clinically indicated. Performed By: #### 3 3762-6, 75861-3, ####VAL[facility]LL[facility] LABORATORYCLIA [id number] [place] [address] [place] Bilirubin [Mass/Vol] 0.2 mg/dL Normal 0.2-1.3 [facility] Comment on above: Order Comment: Speci men Type: BLOOD SPECIMENOrdering Facility: [facility] Address: [address] [place] [address] Performed By: #### 3 3762-6, 17229-6, ####VALLE[facility]LL[facility] LABORATORYCLIA [id number] [place] [address] [place] Calcium [Mass/Vol] 8.2 mg/dL Low 8.5-10.2 [facility] Comment on above: Order Comment: Speci men Type: BLOOD SPECIMENOrdering Facility: [facility] Address: [address] [place] [address] Performed By: #### 3 3762-6, 65438-7, ####VALLE[facility]LL[facility] LABORATORYCLIA [id number] [place] [address] [place] Chloride [Moles/Vol] 98 mmol/L Normal 98-107 [facility] Comment on above: Order Comment: Speci men Type: BLOOD SPECIMENOrdering Facility: [facility] Address: [address] [place] [address] Performed By: #### 3 3762-6, 73141-2, ####VALLECILLO LABORATORYCLIA [id number] [place] [address] [place] CO2 [Moles/Vol] 33 mmol/L High 22-30 [facility] Comment on above: Order Comment: Speci men Type: BLOOD SPECIMENOrdering Facility: [facility] Address: [address] [place] [address] Performed By: #### 3 3762-6, 82615-1, ####VALLECILLO LABORATORYCLIA [id number] [place] [address] [place] Creatinine [Mass/Vol] 3.53 mg/dL High 0.73-1.22 [facility] Comment on above: Order Comment: Speci men Type: BLOOD SPECIMENOrdering Facility: [facility] Address: [address] [place] [address] Performed By: #### 3 3762-6, 82138-4, ####VALLECILLO LABORATORYCLIA [id number] [place] [id number] [place] Creatinine and Glomerular filtration rate.predicted panel (S/P/Bld) 17 mL/min/1.73m??? Low >=60 [facility] Comment on above: Order Comment: Speci men Type: BLOOD SPECIMENOrdering Facility: [facility] Address: [address] [place] [address] Result Comment: Anupama mated Glomerular Filtration Rate (eGFR) is calculated using the 2020 CKD-EPI creatinine equation. This equation utilizes serum creatinine, sex, and age as parameters. The creatinine assay has traceable calibration to isotope dilution-mass spectrometry. Refer to KDIGO guidelines for clinical interpretation. In patients with unstable renal function, e.g. those with acute kidney injury, the eGFR may not accurately reflect actual GFR. Performed By: #### 3 3762-6, 08935-7, ####[facility] LABORATORYCLIA [id number] [place] [address] [place] Glucose [Mass/Vol] 146 mg/dL High 74-99 [facility] Comment on above: Order Comment: Alise montejo Type: BLOOD SPECIMENOrdering Facility: [facility] Address: [address] [place], [place] [address] Result Comment: The [place] Diabetes Association (ADA) provides guidance for cutoff values for fasting glucose and random glucose. The ADA defines fasting as no caloric intake for at least 8 hours. Fasting plasma glucose results between 100 to 125 mg/dL indicate increased risk for diabetes (prediabetes).Fasting plasma glucose results greater than or equal to 126 mg/dL meet the criteria for diagnosis of diabetes. In the absence of unequivocal hyperglycemia, results should be confirmed by repeat testing. In a patient with classic symptoms of hyperglycemia or hyperglycemic crisis, random plasma glucose results greater than or equal to 200 mg/dL meet the criteria for diagnosis of diabetes.Reference: Standards of Medical Care in Diabetes 2016, [place] Diabetes Association. Diabetes Care. 2016.39(Suppl 1). Performed By: #### 3 3762-6, 19097-2, ####[facility] LABORATORYCLIA [id number] [place] [address] [place] Potassium [Moles/Vol] 4.9 mmol/L Normal 3.7-5.1 [facility] Comment on above: Order Comment: Alise montejo Type: BLOOD SPECIMENOrdering Facility: [facility] Address: [address] [place] [address] Performed By: #### 3 3762-6, 06973-7, ####[facility] LABORATORYCLIA [id number] [place] [address] [place] Protein [Mass/Vol] 6.3 g/dL Normal 6.3-8.0 [facility] Comment on above: Order Comment: Speci men Type: BLOOD SPECIMENOrdering Facility: [facility] Address: [address] [place] [address] Performed By: #### 3 3762-6, 17205-1, ####VAL[facility]LL[facility] LABORATORYCLIA [id number] [address] Sodium [Moles/Vol] 139 mmol/L Normal 136-144 [facility] Comment on above: Order Comment: Speci men Type: BLOOD SPECIMENOrdering Facility: [facility] Address: [facility] [place] [id number] Performed By: #### 3 3762-6, 71136-1, ####VAL[facility]LL[facility] LABORATORYCLIA [id number] [address] Urea nitrogen [Mass/Vol] 20 mg/dL Normal 9-24 [facility] Comment on above: Order Comment: Speci men Type: BLOOD SPECIMENOrdering Facility: [facility] Address: [address] [place] [address] [place] [id number] Performed By: #### 3 3762-6, 37804-7, ####[facility] LABORATORYCLIA [id number] [address] ECG COMPLETEon 03-11-2024 ECG COMPLETE [facility] ED NOTEon 03-11-2024 ED NOTE HNO ID: [id number] Author: EMMANUEL SEQUEIRA RN Service: ? Author Type: Registered Nurse Type: ED Notes Filed: 03/11/2024 21:14 Note Text: Pt requesting to remain in his own clothes at this time [facility] ED NOTE HNO ID: [id number] Author: EMMANUEL SEQUEIRA RN Service: ? Author Type: Registered Nurse Type: ED Notes Filed: 03/11/2024 19:35 Note Text: Dr Conklin @ bedside [facility] ED NOTE HNO ID: [id number] Author: ИВАН MARTI RN Service: ? Author Type: Registered Nurse Type: ED Notes Filed: 03/11/2024 17:10 Note Text: dr in room to talk with pt. [facility] ED NOTE HNO ID: [id number] Author: LESLIE JARA, LINA Service: ? Author Type: Registered Nurse Type: ED Notes Filed: 03/11/2024 16:57 Note Text: Bed: ED-02 Expected date: 03/11/24 Expected time: 4:45 PM Means of arrival: Comments: [facility] ED PROV NOTEon 03-11-2024 ED PROV NOTE Normal [facility] HIGH SENSITIVITY TROPONIN To n 03-11-2024 Troponin T.cardiac High sensitivity method [Mass/Vol] 154 ng/L High <12 [facility] Comment on above: Order Comment: Speci men Type: BLOOD SPECIMENOrdering Facility: [facility] Address: [address] [place] [address] Performed By: #### H STNT ####VALLE[facility]LL[facility] LABORATORYCLIA [id number] [address] HIGH SENSITIVITY TROPONIN T (INITIAL)on 03-11-2024 Troponin T.cardiac High sensitivity method [Mass/Vol] 155 ng/L High <12 [facility] Comment on above: Order Comment: Speci men Type: BLOOD SPECIMENOrdering Facility: [facility] Address: [address] [place] [address] Performed By: #### L [id number] ####VALLECILLO LABORATORYCLIA [id number] [address] HIGH SENSITIVITY TROPONIN T (SECOND)on 03-11-2024 Troponin T.cardiac High sensitivity method [Mass/Vol] 154 ng/L High <12 [facility] Comment on above: Order Comment: Speci men Type: BLOOD SPECIMENOrdering Facility: [facility] Address: [address] [place] [address] Performed By: #### L EW0128, 94724-6 ####VALLECILLO LABORATORYCLIA [id number] [address] [place] HISTORY PHYSICALon HISTORY PHYSICAL Normal [facility] Magnesium SerPl-mCncon 03-11 Magnesium [Mass/Vol] 1.9 mg/dL Normal 1.7-2.3 [facility] Comment on above: Order Comment: Alise montejo Type: BLOOD SPECIMENOrdering Facility: [facility] Address: [address] [place] [address] Performed By: #### 3 3762-6, 44372-1, ####[facility] O[facility] LABORATORYCLIA [id number] [place] [address] [facility] NT-proBNP [facility]on [facility]11 Natriuretic peptide.B prohormone N-Terminal [Mass/Vol] 82032 pg/mL High <450 [facility] Comment on above: Order Comment: Alise montejo Type: BLOOD SPECIMENOrdering Facility: [facility] Address: [address] [place] [address] Performed By: #### 3 3762-6, 63933-2, ####[facility] LABORATORYCLIA [id number] [address] OF [facility] NURSING PROGon 03-11-2024 NURSING PROG Normal [facility] PT panel Coag (PPP)on 2023 INR Coag (PPP) [Relative time] 1.1 {INR} Normal 0.9-1.3 [facility] Comment on above: Order Comment: Alise montejo Type: BLOOD SPECIMENOrdering Facility: [facility] Address: [address] [place] [address] Result Comment: Princess min K Antagonist (VKA) Therapeutic Range: INR 2 to 3 (Target INR of 2.5)Note: For patients treated with VKA drugs, such as warfarin, the [employer] 2012 Guideline recommends a therapeutic INR range of 2 to 3 (target INR of 2.5). This recommendation includes high-risk patients with antiphospholipid syndrome with previous arterial or venous thromboembolism, current-generation mechanical or bioprosthetic aortic heart valve replacement.Note: Patients with mechanical aortic valve replacement and additional risk factors for thromboembolic events (atrial fibrillation, previous thromboembolism, LV dysfunction, hypercoagulable conditions) or an older generation mechanical AVR (i.e., ball in-Cage) or any mechanical MVR should have a INR therapeutic range of 2.5 to 3.5 (target INR of 3).Guyatt GH, et al. Chest 2012, 141:7S-47SRogelio RA, et al. [facility] 2017, 70: 252-289 Performed By: #### 1 4979-9, 43379-2 ####[facility] LABORATORYCLIA [id number] [address] [place] [facility] PT Coag (PPP) [Time] 11.6 s Normal 9.7-13.0 [facility] Comment on above: Order Comment: Speci men Type: BLOOD SPECIMENOrdering Facility: [facility] Address: [address] [place] [address] Performed By: #### 1 4979-9, 40688-5 ####[facility] LABORATORYCLIA [id number] [address] Procalcitonin SerPl-mCncon 0 03-11-2024 Procalcitonin [Mass/Vol] 0.18 ng/mL High <0.09 [facility] Comment on above: Order Comment: Speci men Type: BLOOD SPECIMENOrdering Facility: [facility] Address: [address] [place] [address] Result Comment: For a guided interpretation of test results, please visit the Change in Procalcitonin Calculator, [email or web address]. Performed By: #### L [id number], 02284-4 ####[facility] LABORATORYCLIA [id number] [address] XR CHEST 2V FRONTAL/LATon XR CHEST 2V FRONTAL/LAT Normal [facility] aPTT PPPon 03-11-2024 aPTT Coag (PPP) [Time] 28.8 s Normal 23.0-32.[address] [facility] Comment on above: Order Comment: Speci men Type: BLOOD SPECIMENOrdering Facility: [facility] Address: [address] [place] [address] Performed By: #### 1 4979-9, 96733-7 ####[facility] LABORATORYCLIA [id number] [address] Basic metabolic 1998 panelOr dered By: Juan Manuel Mcdonnell on 02-27-2024 Anion gap [Moles/Vol] 11 mmol/L 3 - 13 mmol/L [facility] Calcium [Mass/Vol] 8.8 mg/dL 8.4 - 10. 4 mg/dL [facility] Chloride [Moles/Vol] 102 mmol/L 98 - 10 7 mmol/L [facility] CO2 [Moles/Vol] 24 mmol/L 22 - 30 mmol/L [facility] Creatinine [Mass/Vol] 4.91 mg/dL High 0.66 - 1.25 mg/dL [facility] GFR/1.73 sq M.predicted MDRD (S/P/Bld) [Vol rate/Area] 11.6 mL/min/{1.73_m2} Low - PINF [facility] Glucose [Mass/Vol] 172 mg/dL High 70 - 100 mg/dL [facility] Interpretation and review of laboratory results Abnormal [facility] Potassium [Moles/Vol] 4.6 mmol/L 3.5 - 5.1 mmol/L [facility] Sodium [Moles/Vol] 136 mmol/L 135 - 145 mmol/L [facility] Urea nitrogen [Mass/Vol] 40 mg/dL High 9 - 20 mg/dL [facility] CBC W Auto Differential pane l (Bld)Ordered By: Jessica Edwards on 02-27-2024 Basophils (Bld) [#/Vol] 0.1 10*3/uL 0.0 - 0.2 10*3/uL [facility] Basophils/100 WBC (Bld) 1.0 % 0.0 - 2.0 % [facility] Eosinophils (Bld) [#/Vol] 0.4 10*3/uL 0.0 - 0.5 10*3/uL [facility] Eosinophils/100 WBC (Bld) 5.9 % 0.0 - 6.0 % [facility] Erythrocyte distribution width (RBC) [Ratio] 16.2 % High 11.5 - 15.0 % [facility] Hematocrit (Bld) [Volume fraction] 28.5 % Low 40.0 - 52.0 % [facility] Hemoglobin (Bld) [Mass/Vol] 8.5 g/dL Low 13.0 - 18.0 g/dL [facility] Immature granulocytes (Bld) [#/Vol] 0.1 10*3/uL High NINF - 0.1 10*3/uL [facility] Immature granulocytes/100 WBC (Bld) 0.7 % 0.0 - 2.0 % [facility] Interpretation and review of laboratory results Abnormal [facility] Lymphocytes (Bld) [#/Vol] 0.9 10*3/uL Low 1.0 - 4.3 10*3/uL [facility] Lymphocytes/100 WBC (Bld) 12.9 % Low 15.0 - 45.0 % [facility] MCH (RBC) [Entitic mass] 28.4 pg 26.0 - 34.0 pg [facility] MCHC (RBC) [Mass/Vol] 29.8 % Low 30.5 - 36.0 % [facility] MCV (RBC) [Entitic vol] 95.3 fL 77.0 - 99.0 fL [facility] Monocytes (Bld) [#/Vol] 0.7 10*3/uL 0.0 - 0.9 10*3/uL [facility] Monocytes/100 WBC (Bld) 10.0 % 5.0 - 13.0 % [facility] Neutrophils (Bld) [#/Vol] 4.8 10*3/uL 1.8 - 7.5 10*3/uL [facility] Neutrophils/100 WBC (Bld) 69.5 % 38.0 - 82.0 % [facility] Nucleated RBC/100 WBC (Bld) [Ratio] 0.0 % [facility] Platelet mean volume (Bld) [Entitic vol] 9.8 fL 9.0 - 12.7 fL [facility] Platelets (Bld) [#/Vol] 265 10*3/uL 140 - 440 10*3/uL [facility] RBC (Bld) [#/Vol] 2.99 10*6/uL Low 4.40 - 5.90 10*6/uL [facility] WBC (Bld) [#/Vol] 6.9 10*3/uL 3.6 - 10.7 10*3/uL [facility] Laboratory - Chemistry and C hemistry - challengeon 02-27-2024 Glucose [Mass/Vol] 105 mg/dL High 70 - 100 mg/dL [facility] No Panel Informationon 02-26 Interpretation and review of laboratory results Abnormal [facility] Basic metabolic 1998 panelOr dered By: Maryanne Thorne on 02-26-2024 Anion gap [Moles/Vol] 6 mmol/L 3 - 13 mmol/L [facility] Calcium [Mass/Vol] 8.5 mg/dL 8.4 - 10. 4 mg/dL [facility] Chloride [Moles/Vol] 105 mmol/L 98 - 10 7 mmol/L [facility] CO2 [Moles/Vol] 23 mmol/L 22 - 30 mmol/L [facility] Creatinine [Mass/Vol] 3.73 mg/dL High 0.66 - 1.25 mg/dL [facility] GFR/1.73 sq M.predicted MDRD (S/P/Bld) [Vol rate/Area] 16.1 mL/min/{1.73_m2} Low - PINF [facility] Glucose [Mass/Vol] 99 mg/dL 70 - 100 mg/dL [facility] Interpretation and review of laboratory results Abnormal [facility] Potassium [Moles/Vol] 4.6 mmol/L 3.5 - 5.1 mmol/L [facility] Sodium [Moles/Vol] 134 mmol/L Low 135 - 145 mmol/L [facility] Urea nitrogen [Mass/Vol] 29 mg/dL High 9 - 20 mg/dL [facility] CBC W Auto Differential pane l (Bld)on 02-26-2024 Basophils (Bld) [#/Vol] 0.1 10*3/uL 0.0 - 0.2 10*3/uL [facility] Basophils/100 WBC (Bld) 1.0 % 0.0 - 2.0 % [facility] Eosinophils (Bld) [#/Vol] 0.5 10*3/uL 0.0 - 0.5 10*3/uL [facility] Eosinophils/100 WBC (Bld) 6.7 % High 0.0 - 6.0 % [facility] Erythrocyte distribution width (RBC) [Ratio] 16.3 % High 11.5 - 15.0 % [facility] Hematocrit (Bld) [Volume fraction] 28.7 % Low 40.0 - 52.0 % [facility] Hemoglobin (Bld) [Mass/Vol] 9.0 g/dL Low 13.0 - 18.0 g/dL [facility] Immature granulocytes (Bld) [#/Vol] 0.1 10*3/uL High NINF - 0.1 10*3/uL [email or web address] Immature granulocytes/100 WBC (Bld) 0.7 % 0.0 - 2.0 % [facility] Interpretation and review of laboratory results Abnormal [email or web address] Lymphocytes (Bld) [#/Vol] 1.0 10*3/uL 1.0 - 4.3 10*3/uL [facility] Lymphocytes/100 WBC (Bld) 14.3 % Low 15.0 - 45.0 % [facility] MCH (RBC) [Entitic mass] 29.4 pg 26.0 - 34.0 pg [facility] MCHC (RBC) [Mass/Vol] 31.4 % 30.5 - 36.0 % [facility] MCV (RBC) [Entitic vol] 93.8 fL 77.0 - 99.0 fL [facility] Monocytes (Bld) [#/Vol] 0.8 10*3/uL 0.0 - 0.9 10*3/uL [facility] Monocytes/100 WBC (Bld) 11.9 % 5.0 - 13.0 % [facility] Neutrophils (Bld) [#/Vol] 4.4 10*3/uL 1.8 - 7.5 10*3/uL [facility] Neutrophils/100 WBC (Bld) 65.4 % 38.0 - 82.0 % [facility] Nucleated RBC/100 WBC (Bld) [Ratio] 0.0 % [facility] Platelet mean volume (Bld) [Entitic vol] 10.0 fL 9.0 - 12.7 fL [facility] Platelets (Bld) [#/Vol] 249 10*3/uL 140 - 440 10*3/uL [facility] RBC (Bld) [#/Vol] 3.06 10*6/uL Low 4.40 - 5.90 10*6/uL [facility] WBC (Bld) [#/Vol] 6.7 10*3/uL 3.6 - 10.7 10*3/uL [facility] Laboratory - Chemistry and C hemistry - challengeon 02-26-2024 Glucose [Mass/Vol] 175 mg/dL High 70 - 100 mg/dL [email or web address] Glucose [Mass/Vol] 142 mg/dL High 70 - 100 mg/dL [facility] Glucose [Mass/Vol] 157 mg/dL High 70 - 100 mg/dL [facility] Glucose [Mass/Vol] 150 mg/dL High 70 - 100 mg/dL [facility] No Panel Informationon 02-25 Interpretation and review of laboratory results Abnormal [facility] Interpretation and review of laboratory results Abnormal [facility] Interpretation and review of laboratory results Abnormal [facility] Interpretation and review of laboratory results Abnormal [facility] XR Chest Single viewon 02-25 [facility] Radiology Study observation (narrative) [facility] XR Chest Single viewOrdered By: Darinel Ness on 02-26-2024 [email or web address] Work Phone: Basic metabolic 1998 panelon 02-25-2024 Anion gap [Moles/Vol] 7 mmol/L 3 - 13 mmol/L [facility] Calcium [Mass/Vol] 8.6 mg/dL 8.4 - 10. 4 mg/dL [facility] Chloride [Moles/Vol] 103 mmol/L 98 - 10 7 mmol/L [facility] CO2 [Moles/Vol] 24 mmol/L 22 - 30 mmol/L [facility] Creatinine [Mass/Vol] 5.02 mg/dL High 0.66 - 1.25 mg/dL [facility] GFR/1.73 sq M.predicted MDRD (S/P/Bld) [Vol rate/Area] 11.3 mL/min/{1.73_m2} Low - PINF [facility] Glucose [Mass/Vol] 146 mg/dL High 70 - 100 mg/dL [facility] Interpretation and review of laboratory results Abnormal [facility] Potassium [Moles/Vol] 4.5 mmol/L 3.5 - 5.1 mmol/L [facility] Sodium [Moles/Vol] 134 mmol/L Low 135 - 145 mmol/L [facility] Urea nitrogen [Mass/Vol] 40 mg/dL High 9 - 20 mg/dL [facility] CBC W Auto Differential pane l (Bld)on 02-25-2024 Basophils (Bld) [#/Vol] 0.1 10*3/uL 0.0 - 0.2 10*3/uL [facility] Basophils/100 WBC (Bld) 1.1 % 0.0 - 2.0 % [facility] Eosinophils (Bld) [#/Vol] 0.5 10*3/uL 0.0 - 0.5 10*3/uL [facility] Eosinophils/100 WBC (Bld) 6.6 % High 0.0 - 6.0 % [facility] Erythrocyte distribution width (RBC) [Ratio] 16.2 % High 11.5 - 15.0 % [facility] Hematocrit (Bld) [Volume fraction] 29.2 % Low 40.0 - 52.0 % [facility] Hemoglobin (Bld) [Mass/Vol] 8.9 g/dL Low 13.0 - 18.0 g/dL [facility] Immature granulocytes (Bld) [#/Vol] 0.1 10*3/uL High NINF - 0.1 10*3/uL [facility] Immature granulocytes/100 WBC (Bld) 0.7 % 0.0 - 2.0 % [facility] Interpretation and review of laboratory results Abnormal [facility] Lymphocytes (Bld) [#/Vol] 0.9 10*3/uL Low 1.0 - 4.3 10*3/uL [facility] Lymphocytes/100 WBC (Bld) 11.9 % Low 15.0 - 45.0 % [facility] MCH (RBC) [Entitic mass] 28.8 pg 26.0 - 34.0 pg [facility] MCHC (RBC) [Mass/Vol] 30.5 % 30.5 - 36.0 % [facility] MCV (RBC) [Entitic vol] 94.5 fL 77.0 - 99.0 fL [facility] Monocytes (Bld) [#/Vol] 1.0 10*3/uL High 0.0 - 0.9 10*3/uL [facility] Monocytes/100 WBC (Bld) 13.3 % High 5.0 - 13.0 % [facility] Neutrophils (Bld) [#/Vol] 4.9 10*3/uL 1.8 - 7.5 10*3/uL [facility] Neutrophils/100 WBC (Bld) 66.4 % 38.0 - 82.0 % [facility] Nucleated RBC/100 WBC (Bld) [Ratio] 0.0 % [facility] Platelet mean volume (Bld) [Entitic vol] 9.7 fL 9.0 - 12.7 fL [facility] Platelets (Bld) [#/Vol] 244 10*3/uL 140 - 440 10*3/uL [facility] RBC (Bld) [#/Vol] 3.09 10*6/uL Low 4.40 - 5.90 10*6/uL [facility] WBC (Bld) [#/Vol] 7.4 10*3/uL 3.6 - 10.7 10*3/uL [facility] Laboratory - Chemistry and C hemistry - challengeon 02-25-2024 Glucose [Mass/Vol] 234 mg/dL High 70 - 100 mg/dL [facility] Glucose [Mass/Vol] 126 mg/dL High 70 - 100 mg/dL [facility] Glucose [Mass/Vol] 92 mg/dL 70 - 100 mg/dL [facility] No Panel Informationon 02-24 Interpretation and review of laboratory results Abnormal [facility] Interpretation and review of laboratory results Abnormal [facility] Interpretation and review of laboratory results Normal [facility] Basic metabolic 1998 panelon 02-24-2024 Anion gap [Moles/Vol] 8 mmol/L 3 - 13 mmol/L [facility] Calcium [Mass/Vol] 8.7 mg/dL 8.4 - 10. 4 mg/dL [facility] Chloride [Moles/Vol] 102 mmol/L 98 - 10 7 mmol/L [facility] CO2 [Moles/Vol] 26 mmol/L 22 - 30 mmol/L [facility] Creatinine [Mass/Vol] 4.39 mg/dL High 0.66 - 1.25 mg/dL [facility] GFR/1.73 sq M.predicted MDRD (S/P/Bld) [Vol rate/Area] 13.2 mL/min/{1.73_m2} Low - PINF [facility] Glucose [Mass/Vol] 156 mg/dL High 70 - 100 mg/dL [facility] Interpretation and review of laboratory results Abnormal [facility] Potassium [Moles/Vol] 4.2 mmol/L 3.5 - 5.1 mmol/L [facility] Sodium [Moles/Vol] 136 mmol/L 135 - 145 mmol/L [facility] Urea nitrogen [Mass/Vol] 31 mg/dL High 9 - 20 mg/dL [facility] CBC W Auto Differential pane l (Bld)on 02-24-2024 Basophils (Bld) [#/Vol] 0.1 10*3/uL 0.0 - 0.2 10*3/uL [facility] Basophils/100 WBC (Bld) 1.4 % 0.0 - 2.0 % [facility] Eosinophils (Bld) [#/Vol] 0.6 10*3/uL High 0.0 - 0.5 10*3/uL [facility] Eosinophils/100 WBC (Bld) 6.9 % High 0.0 - 6.0 % [facility] Erythrocyte distribution width (RBC) [Ratio] 16.2 % High 11.5 - 15.0 % [facility] Hematocrit (Bld) [Volume fraction] 32.4 % Low 40.0 - 52.0 % [facility] Hemoglobin (Bld) [Mass/Vol] 9.9 g/dL Low 13.0 - 18.0 g/dL [facility] Immature granulocytes (Bld) [#/Vol] 0.1 10*3/uL High NINF - 0.1 10*3/uL [facility] Immature granulocytes/100 WBC (Bld) 0.8 % 0.0 - 2.0 % [facility] Interpretation and review of laboratory results Abnormal [facility] Lymphocytes (Bld) [#/Vol] 1.0 10*3/uL 1.0 - 4.3 10*3/uL [facility] Lymphocytes/100 WBC (Bld) 13.0 % Low 15.0 - 45.0 % [facility] MCH (RBC) [Entitic mass] 29.3 pg 26.0 - 34.0 pg [facility] MCHC (RBC) [Mass/Vol] 30.6 % 30.5 - 36.0 % [facility] MCV (RBC) [Entitic vol] 95.9 fL 77.0 - 99.0 fL [facility] Monocytes (Bld) [#/Vol] 1.1 10*3/uL High 0.0 - 0.9 10*3/uL [facility] Monocytes/100 WBC (Bld) 13.6 % High 5.0 - 13.0 % [facility] Neutrophils (Bld) [#/Vol] 5.1 10*3/uL 1.8 - 7.5 10*3/uL [facility] Neutrophils/100 WBC (Bld) 64.3 % 38.0 - 82.0 % [facility] Nucleated RBC/100 WBC (Bld) [Ratio] 0.0 % [facility] Platelet mean volume (Bld) [Entitic vol] 10.0 fL 9.0 - 12.7 fL [facility] Platelets (Bld) [#/Vol] 261 10*3/uL 140 - 440 10*3/uL [facility] RBC (Bld) [#/Vol] 3.38 10*6/uL Low 4.40 - 5.90 10*6/uL [facility] WBC (Bld) [#/Vol] 8.0 10*3/uL 3.6 - 10.7 10*3/uL [facility] Laboratory - Chemistry and C hemistry - challengeon 02-24-2024 Glucose [Mass/Vol] 155 mg/dL High 70 - 100 mg/dL [facility] Glucose [Mass/Vol] 161 mg/dL High 70 - 100 mg/dL [facility] Glucose [Mass/Vol] 264 mg/dL High 70 - 100 mg/dL [facility] Glucose [Mass/Vol] 108 mg/dL High 70 - 100 mg/dL [facility] No Panel Informationon 02-23 Interpretation and review of laboratory results Abnormal [facility] Interpretation and review of laboratory results Abnormal [facility] Interpretation and review of laboratory results Abnormal [facility] Interpretation and review of laboratory results Abnormal [facility] Basic metabolic 1998 panelOr dered By: Kelli Cobb on 02-23-2024 Anion gap [Moles/Vol] 5 mmol/L 3 - 13 mmol/L [facility] Calcium [Mass/Vol] 8.7 mg/dL 8.4 - 10. 4 mg/dL [facility] Chloride [Moles/Vol] 103 mmol/L 98 - 10 7 mmol/L [facility] CO2 [Moles/Vol] 28 mmol/L 22 - 30 mmol/L [facility] Creatinine [Mass/Vol] 3.22 mg/dL High 0.66 - 1.25 mg/dL [facility] GFR/1.73 sq M.predicted MDRD (S/P/Bld) [Vol rate/Area] 19.2 mL/min/{1.73_m2} Low - PINF [facility] Glucose [Mass/Vol] 99 mg/dL 70 - 100 mg/dL [facility] Interpretation and review of laboratory results Abnormal [facility] Potassium [Moles/Vol] 3.9 mmol/L 3.5 - 5.1 mmol/L [facility] Sodium [Moles/Vol] 135 mmol/L 135 - 145 mmol/L [facility] Urea nitrogen [Mass/Vol] 20 mg/dL 9 - 20 mg/dL [facility] CBC W Auto Differential pane l (Bld)Ordered By: Doug Jasmine on 02-23-2024 Basophils (Bld) [#/Vol] 0.1 10*3/uL 0.0 - 0.2 10*3/uL [facility] Basophils/100 WBC (Bld) 1.3 % 0.0 - 2.0 % [facility] Eosinophils (Bld) [#/Vol] 0.5 10*3/uL 0.0 - 0.5 10*3/uL [facility] Eosinophils/100 WBC (Bld) 7.9 % High 0.0 - 6.0 % [facility] Erythrocyte distribution width (RBC) [Ratio] 16.1 % High 11.5 - 15.0 % [facility] Hematocrit (Bld) [Volume fraction] 29.8 % Low 40.0 - 52.0 % [facility] Hemoglobin (Bld) [Mass/Vol] 9.1 g/dL Low 13.0 - 18.0 g/dL [facility] Immature granulocytes (Bld) [#/Vol] 0.0 10*3/uL NINF - 0.1 10*3/uL [email or web address] Immature granulocytes/100 WBC (Bld) 0.6 % 0.0 - 2.0 % [facility] Interpretation and review of laboratory results Abnormal [facility] Lymphocytes (Bld) [#/Vol] 0.9 10*3/uL Low 1.0 - 4.3 10*3/uL [facility] Lymphocytes/100 WBC (Bld) 14.6 % Low 15.0 - 45.0 % [facility] MCH (RBC) [Entitic mass] 28.4 pg 26.0 - 34.0 pg [facility] MCHC (RBC) [Mass/Vol] 30.5 % 30.5 - 36.0 % [facility] MCV (RBC) [Entitic vol] 93.1 fL 77.0 - 99.0 fL [facility] Monocytes (Bld) [#/Vol] 0.9 10*3/uL 0.0 - 0.9 10*3/uL [facility] Monocytes/100 WBC (Bld) 13.5 % High 5.0 - 13.0 % [facility] Neutrophils (Bld) [#/Vol] 3.9 10*3/uL 1.8 - 7.5 10*3/uL [facility] Neutrophils/100 WBC (Bld) 62.1 % 38.0 - 82.0 % [facility] Nucleated RBC/100 WBC (Bld) [Ratio] 0.0 % [facility] Platelet mean volume (Bld) [Entitic vol] 9.6 fL 9.0 - 12.7 fL [facility] Platelets (Bld) [#/Vol] 246 10*3/uL 140 - 440 10*3/uL [facility] RBC (Bld) [#/Vol] 3.20 10*6/uL Low 4.40 - 5.90 10*6/uL [facility] WBC (Bld) [#/Vol] 6.3 10*3/uL 3.6 - 10.7 10*3/uL [facility] - Chemistry and C hemistry - challengeon 02-23-2024 Glucose [Mass/Vol] 135 mg/dL High 70 - 100 mg/dL [facility] Glucose [Mass/Vol] 208 mg/dL High 70 - 100 mg/dL [facility] Glucose [Mass/Vol] 162 mg/dL High 70 - 100 mg/dL [facility] Glucose [Mass/Vol] 133 mg/dL High 70 - 100 mg/dL [facility] No Panel Informationon 02-22 Interpretation and review of laboratory results Abnormal [facility] Interpretation and review of laboratory results Abnormal [facility] Interpretation and review of laboratory results Abnormal [facility] Interpretation and review of laboratory results Abnormal [facility] Bacteria identified Anaer cx Nom (Unsp spec)Ordered By: Batsheva Ardon on 02-22-2024 Interpretation and review of laboratory results Normal [facility] Basic metabolic 1998 panelon 02-22-2024 Anion gap [Moles/Vol] 8 mmol/L 3 - 13 mmol/L [facility] Calcium [Mass/Vol] 8.6 mg/dL 8.4 - 10. 4 mg/dL [facility] Chloride [Moles/Vol] 103 mmol/L 98 - 10 7 mmol/L [facility] CO2 [Moles/Vol] 22 mmol/L 22 - 30 mmol/L [facility] Creatinine [Mass/Vol] 4.49 mg/dL High 0.66 - 1.25 mg/dL [facility] GFR/1.73 sq M.predicted MDRD (S/P/Bld) [Vol rate/Area] 12.9 mL/min/{1.73_m2} Low - PINF [facility] Glucose [Mass/Vol] 109 mg/dL High 70 - 100 mg/dL [facility] Interpretation and review of laboratory results Abnormal [facility] Potassium [Moles/Vol] 4.1 mmol/L 3.5 - 5.1 mmol/L [facility] Sodium [Moles/Vol] 133 mmol/L Low 135 - 145 mmol/L [facility] Urea nitrogen [Mass/Vol] 35 mg/dL High 9 - 20 mg/dL [facility] CBC W Auto Differential pane l (Bld)Ordered By: Neo Bansal on 02-22-2024 Basophils (Bld) [#/Vol] 0.1 10*3/uL 0.0 - 0.2 10*3/uL [facility] Basophils/100 WBC (Bld) 1.0 % 0.0 - 2.0 % [facility] Eosinophils (Bld) [#/Vol] 0.4 10*3/uL 0.0 - 0.5 10*3/uL [facility] Eosinophils/100 WBC (Bld) 6.9 % High 0.0 - 6.0 % [facility] Erythrocyte distribution width (RBC) [Ratio] 16.2 % High 11.5 - 15.0 % [facility] Hematocrit (Bld) [Volume fraction] 28.3 % Low 40.0 - 52.0 % [facility] Hemoglobin (Bld) [Mass/Vol] 8.4 g/dL Low 13.0 - 18.0 g/dL [email or web address] Immature granulocytes (Bld) [#/Vol] 0.0 10*3/uL NINF - 0.1 10*3/uL [email or web address] Immature granulocytes/100 WBC (Bld) 0.5 % 0.0 - 2.0 % [email or web address] Interpretation and review of laboratory results Abnormal [email or web address] Lymphocytes (Bld) [#/Vol] 0.8 10*3/uL Low 1.0 - 4.3 10*3/uL [email or web address] Lymphocytes/100 WBC (Bld) 13.4 % Low 15.0 - 45.0 % [email or web address] MCH (RBC) [Entitic mass] 28.0 pg 26.0 - 34.0 pg [email or web address] MCHC (RBC) [Mass/Vol] 29.7 % Low 30.5 - 36.0 % [email or web address] MCV (RBC) [Entitic vol] 94.3 fL 77.0 - 99.0 fL [email or web address] Monocytes (Bld) [#/Vol] 0.9 10*3/uL 0.0 - 0.9 10*3/uL [email or web address] Monocytes/100 WBC (Bld) 13.6 % High 5.0 - 13.0 % [email or web address] Neutrophils (Bld) [#/Vol] 4.1 10*3/uL 1.8 - 7.5 10*3/uL [email or web address] Neutrophils/100 WBC (Bld) 64.6 % 38.0 - 82.0 % [email or web address] Nucleated RBC/100 WBC (Bld) [Ratio] 0.0 % [email or web address] Platelet mean volume (Bld) [Entitic vol] 10.1 fL 9.0 - 12.7 fL [email or web address] Platelets (Bld) [#/Vol] 229 10*3/uL 140 - 440 10*3/uL [email or web address] RBC (Bld) [#/Vol] 3.00 10*6/uL Low 4.40 - 5.90 10*6/uL [email or web address] WBC (Bld) [#/Vol] 6.3 10*3/uL 3.6 - 10.7 10*3/uL [facility] - Chemistry and C hemistry - challengeon 02-22-2024 Glucose [Mass/Vol] 322 mg/dL High 70 - 100 mg/dL [facility] Glucose [Mass/Vol] 168 mg/dL High 70 - 100 mg/dL [facility] Glucose [Mass/Vol] 83 mg/dL 70 - 100 mg/dL [facility] Laboratory - Microbiology an d Antimicrobial susceptibilityOrdered By: Batsheva Ardon on 02-22-2024 Bacteria identified Anaer cx Nom (Unsp spec) No growth at 5 days [facility] No Panel Informationon 02-21 Interpretation and review of laboratory results Abnormal [facility] Interpretation and review of laboratory results Abnormal [facility] Interpretation and review of laboratory results Normal [facility] Bacteria identified Aer cx N om (Unsp spec)on 02-21-2024 Gram Stain Result No polymorphonuclear leukocytes seen [facility] Gram Stain Result No organisms seen [facility] Basic metabolic 1998 panelon 02-21-2024 Anion gap [Moles/Vol] 11 mmol/L 3 - 13 mmol/L [facility] Calcium [Mass/Vol] 8.7 mg/dL 8.4 - 10. 4 mg/dL [facility] Chloride [Moles/Vol] 103 mmol/L 98 - 10 7 mmol/L [facility] CO2 [Moles/Vol] 23 mmol/L 22 - 30 mmol/L [facility] Creatinine [Mass/Vol] 3.62 mg/dL High 0.66 - 1.25 mg/dL [facility] GFR/1.73 sq M.predicted MDRD (S/P/Bld) [Vol rate/Area] 16.7 mL/min/{1.73_m2} Low - PINF [facility] Glucose [Mass/Vol] 124 mg/dL High 70 - 100 mg/dL [facility] Interpretation and review of laboratory results Abnormal [facility] Potassium [Moles/Vol] 4.0 mmol/L 3.5 - 5.1 mmol/L [facility] Sodium [Moles/Vol] 138 mmol/L 135 - 145 mmol/L [facility] Urea nitrogen [Mass/Vol] 24 mg/dL High 9 - 20 mg/dL [facility] CBC W Auto Differential pane l (Bld)Ordered By: Lien Echeverria on 02-21-2024 Basophils (Bld) [#/Vol] 0.1 10*3/uL 0.0 - 0.2 10*3/uL [facility] Basophils/100 WBC (Bld) 1.2 % 0.0 - 2.0 % [facility] Eosinophils (Bld) [#/Vol] 0.5 10*3/uL 0.0 - 0.5 10*3/uL [facility] Eosinophils/100 WBC (Bld) 7.1 % High 0.0 - 6.0 % [facility] Erythrocyte distribution width (RBC) [Ratio] 16.3 % High 11.5 - 15.0 % [facility] Hematocrit (Bld) [Volume fraction] 32.4 % Low 40.0 - 52.0 % [facility] Hemoglobin (Bld) [Mass/Vol] 9.5 g/dL Low 13.0 - 18.0 g/dL [facility] Immature granulocytes (Bld) [#/Vol] 0.1 10*3/uL High NINF - 0.1 10*3/uL [facility] Immature granulocytes/100 WBC (Bld) 0.7 % 0.0 - 2.0 % [facility] Interpretation and review of laboratory results Abnormal [facility] Lymphocytes (Bld) [#/Vol] 0.9 10*3/uL Low 1.0 - 4.3 10*3/uL [facility] Lymphocytes/100 WBC (Bld) 13.4 % Low 15.0 - 45.0 % [facility] MCH (RBC) [Entitic mass] 28.6 pg 26.0 - 34.0 pg [facility] MCHC (RBC) [Mass/Vol] 29.3 % Low 30.5 - 36.0 % [facility] MCV (RBC) [Entitic vol] 97.6 fL 77.0 - 99.0 fL [facility] Monocytes (Bld) [#/Vol] 0.9 10*3/uL 0.0 - 0.9 10*3/uL [facility] Monocytes/100 WBC (Bld) 12.6 % 5.0 - 13.0 % [facility] Neutrophils (Bld) [#/Vol] 4.5 10*3/uL 1.8 - 7.5 10*3/uL [facility] Neutrophils/100 WBC (Bld) 65.0 % 38.0 - 82.0 % [facility] Nucleated RBC/100 WBC (Bld) [Ratio] 0.0 % [facility] Platelet mean volume (Bld) [Entitic vol] 10.1 fL 9.0 - 12.7 fL [facility] Platelets (Bld) [#/Vol] 229 10*3/uL 140 - 440 10*3/uL [facility] RBC (Bld) [#/Vol] 3.32 10*6/uL Low 4.40 - 5.90 10*6/uL [facility] WBC (Bld) [#/Vol] 6.9 10*3/uL 3.6 - 10.7 10*3/uL [facility] Laboratory - Chemistry and C hemistry - challengeon 02-21-2024 Glucose [Mass/Vol] 167 mg/dL High 70 - 100 mg/dL [facility] Glucose [Mass/Vol] 203 mg/dL High 70 - 100 mg/dL [facility] Glucose [Mass/Vol] 114 mg/dL High 70 - 100 mg/dL [facility] Glucose [Mass/Vol] 145 mg/dL High 70 - 100 mg/dL [facility] Laboratory - Microbiology an d Antimicrobial susceptibilityon 02-21-2024 Bacteria identified Aer cx Nom (Unsp spec) No growth at 4 days [facility] No Panel Informationon 02-20 Interpretation and review of laboratory results Abnormal [facility] Interpretation and review of laboratory results Abnormal [facility] Interpretation and review of laboratory results Abnormal [facility] Interpretation and review of laboratory results Abnormal [facility] Laboratory - Chemistry and C hemistry - challengeon 02-20-2024 Glucose [Mass/Vol] 309 mg/dL High 70 - 100 mg/dL [facility] Glucose [Mass/Vol] 247 mg/dL High 70 - 100 mg/dL [facility] Glucose [Mass/Vol] 101 mg/dL High 70 - 100 mg/dL [facility] Glucose [Mass/Vol] 132 mg/dL High 70 - 100 mg/dL [facility] No Panel Informationon 02-19 Interpretation and review of laboratory results Abnormal [facility] Interpretation and review of laboratory results Abnormal [facility] Interpretation and review of laboratory results Abnormal [facility] Interpretation and review of laboratory results Abnormal [facility] Laboratory - Chemistry and C hemistry - challengeon 02-19-2024 Glucose [Mass/Vol] 214 mg/dL High 70 - 100 mg/dL [facility] Glucose [Mass/Vol] 207 mg/dL High 70 - 100 mg/dL [facility] Glucose [Mass/Vol] 104 mg/dL High 70 - 100 mg/dL [facility] Glucose [Mass/Vol] 168 mg/dL High 70 - 100 mg/dL [facility] Glucose [Mass/Vol] 156 mg/dL High 70 - 100 mg/dL [facility] No Panel Informationon 02-18 Interpretation and review of laboratory results Abnormal [facility] Interpretation and review of laboratory results Abnormal [facility] Interpretation and review of laboratory results Abnormal [facility] Interpretation and review of laboratory results Abnormal [facility] RADIOLOGY SYSTEM [facility] RADIOLOGY SYSTEM [facility] Radiology Study observation (narrative) [facility] Interpretation and review of laboratory results Abnormal [facility] No Panel InformationOrdered By: Lisa Bell on 02-19-2024 Case Report [email or web address] Work Phone: Case Screening Location [facility], [address] [place] [address]; CLIA: [id number]; Joint Commission: HCO [id number]; CAP: [id number] [facility] [employer] Phone: Disclaimer [id number] MDAwXG Fqa1syDSTwiWEmNcXyPxJzAtBo OiyzoRHcDBOlAtZfw6wol734sF Loe3ciARUoNfD9hPLqEXJzN74t NKCOU456CZDzLNmgo6lel5LmDV OwuPTkq6L1IYMHKBtvTGDVWEi3 xZlvJ98st7X3SnvyK5wyTPXyKS UyN7VmTK0xLYBlTyi5ITU1FXN0 YKXiNKCtW8CeRN4wMOVsfQDbOA h6u2zygGhfRGWqINB3m9dsCHei rpQuNF2wvq7cpJo4n0xdyhHePL ZsEELpdONGGSDcV6IviRbiOk2t aRz8pOrhEwfxPAB2Tpm6HG8mau 15tdy8xQgaVURlcypySzP0FSlv IMJnbyesQNw3SWvlDVZhdBL7PZ AkfXVzG2TtNSRgNT8obvv3IVH7 MPvyYGXbEzB2CGWzyYQbQPOujR bbYZwnx891SDV3SpHaAS5lP9Ec d6H5tG9nmXRpQVEjiKVeShFkIE Wohs2rfWUrCAsbw9CnPHK3opY2 bFKtiOIfNNGsRQ47Ryyml6HfEb dmXQS9QTCyhkYlj3Gyt6toGfQf hfBwC7zcT5GjXAFvRQMrXKWvCm RwgcKtk5Adp9GmiPXrdQi9n8tc NJXeYTVauPwsq0dpSDI2LOXeL3 Y9hLYqu2ddAAhtIBYmyCL6xmU4 NTDmdIVsV7DdwF9iFGTgZF4knx f0p2chXMF9FUsmAIRlArT0qwM0 AGHsxJIsDCCrpKadZVckp244AY G5OrTfFBYjn8AtK5ZuxKesM24l zZbyN39zXWHprSvfhF6nlEvjpT 5cZjBcZnMyNFxxbFxwbGFpblxm ZXcymgC9ARwzyvvwDWArNYyaF0 bkTaDsWUMyoSqqGBslu5OnGZZo MIYgJPKpOPnzN3jumZ9dfbgsRG jkFDNtdGkxb6wkEyVecUK4ZS8x nqJtORZtuIixmbN4gqPtsIrmrP 0okI9ijJscfR5wzHTvbNZ9nful IGluIHNpdHUgaHlicmlkaXphdG hgjvmkbL1xATC0sUIjXMQ7uRMf AXEhPDFvJHYgyN04uu6cjNNcqz RdL1XgB9ZjoOPfdYjqHckrrHDd iZKrCj3jsHFaPG5fSQUmgGNuI2 IpVG3uZVSaqspqIVKbYZauORMy TWKwQeXqkiEcl7CkuR5yBSLjKI XjRR49uqOqmcA9bDDxBTTnwdIw dGVzdHMgaXMgcmVndWxhdGVkIG LrKJWlUMNfFUs2aHAkm7RqP2la uFUtzeJdY6PypSWuXMSNNW0gXF yuw5FsyUIbfGBkf9UzLDPsIATa eE9pGTFuKB3oJUSgUBlfVIKwyx Cpbw6mzjZzFXIgBZHaR0Tbsohm kNbtkvUqEGVfhk4pruVpCWA7QN RoZSBjbGluaWNhbCBsYWJvcmF0 i6FeVLQyn7CjW8ZhzFRaIADxtE TcPSS5q1JofK6uZTrsvRJnTMXe VV4iqYPbREFtYFXrKKUkEPMrHn htsQgaOSWMOFMfx6WoDO7bVCIc jIzbXGSjaK6cj9BgGTOum87dEZ ZEQSkuIFRoZSBGREEgaGFzIGRl dGVybWluZWQgdGhhdCBzdWNoIG RkSYVyZH4lBMIwqsSlrAGou8Yt vUXrooTlh7MhqvFxSHHkSJG5Er UvjCKkCXFqotKQyIlxqY8nlV9a s9PcvS5yTCkcolXziSXaZs8ruF WiKI1hWQEpzcVyNeldRQLtTsLl UOMdBUBrb1W0PR3yYKAbda8zwf gfaWWxoO8rvEVavvLvQK6mMG5h Y4V6cZIxDKMidiLnr3tbPDn7xB QoCQEsoHAnrPJfDxedVTB5FJJp BJE8qvRargNlYGWfuCwxjYR1eJ OgUIPzOSUlSPQgAR05D1Tic8Ry L1aePZ02NENhWFPkAOSvlrPng9 jjNQUgf0pxZJQtiBYbQ5AnGNSq gLPzdcmfVsQxGQI4WCIbPJA1wZ CnSLMiJ1SchJFyjJDurL14CM5y xTO8GU4pQJB4XPfoeW3aNrWOlR 27mv7irQC1y1VoKE5eF5DrWOWz j4L3qhWbUUKuIL0doLEbQZPeIV ZhbGlkYXRlZCBvbiBkZWNhbGNp VztjXYF5vIUlrTJqFzXYTWO6oN KaTSWka0MgDSQsCXHlieVsecMv UQNwKII3rMEpDNSawMEne34zF6 k3DE7uiAsdPENvgOXbLJWie6Hl tJOsyOl0iSNuOoPhRDuoZRCgLE dciXt1oCM1DF6hBAKvR1JhY6gg lZJxCRPoNEQpaKDqke6hdVMbrS == [facility] Work Phone: Gross Description z5snyHBbVVVlaLIXCGF3 MDNcYW 2vfZiykVg9wVloFFNkzvY5eNVe UUwpa4ltAXK1b7eckdFCKqscEN BxRS1fOMktZGQlDQ3eOrIeEBLn ZmYxXHBhcGVydzEyMjQwXHBhcG HfpLO1XFUjCR7aeiomBJboCFor TWFetjR8GHZdsGPhP4WdKSLxNW 6pqtcgZYS9DZIXConzZs5lfCLt bHtcZjFcZmNoYXJzZXQwXGZzd2 hvecNKocavwAd6qX4Oy3jfm0kc cpTdpGzpopThFWMfA4CrIW54GD cbsAUjSME0QNEuUWDzF9QaYQ5t GTXfnHNmB56XRyfgRHD7BRPGYh oyKcbxlSdub1NhrCShQXLwHMkd aWQgNTEwMDAgXFxkYiBPVlIgIi I5PwCnTSy1CgG3PYz5RWWGUYJv ZQa9LZSbNCe7WRw8QTdijxopWU a3FRHbKZsopUSjGV9rjRfwIoee gYndg6OfaAOmEQLfWTwzmUVpJQ IqWHEyXRosGeURRlRjKtV7EfPn OSh5YsQ2DZe5KDLWDbWlBkMxPW XkHMI9ZzVpLVg6SSh3HEvOYqAb ERz8XQB1SWFlPAP2YCQgQEyloQ BcXHQgMiBcXHNzIDMgXFxmbCBc BT4hyMhqIXQsMD2NRRNsMYtaYR UxqUKDGAW0RX9lTPUMTowerDRd CWLgTScenQVaT1miI5EwRIQaAa MsZBNjSCUpTQSfDXyxN0L1hJP7 HJYMAGD8MieoJcXbHMKvtEUdKL 5RUHDrBC2WBNbxgh04ZNK7b2qp wKCkMQrlZvoniZVyjlW4QFxEPZ GBZEgYHtSiPD6fLMzFQ2VDYMfQ JyerXCzlIzD5TGmagFnaBgylyl QjqADtHiUKbT6hpQ78XUg0EYRd BKvmm6prHAOsAPgzz9QiWRwKMS CXBT7MRJ7fvSU8MMmVZGMHAClb OEvaNoV0OIqgaHnqWfstgyGymZ AtNyYIbM9jbJrxcV3ctKJpZ0li JyLtIALjEOEbu4QlE0K9ZHZtMX wtv3atOVBtYLion9TdFZwEYIYG UC6NYE0woJG2IPgWHFQZS5iYeL KwQUIsYGixpMF8b6vhyYLxn3x1 RPdiSLI4nCCePHjdKhjtaSP3ZL fgQdaxgX9ytAHKASXREqwIWozv kmAwWZ4GBOWRQV2NyNRqXSRzLK ndsZC0p5vnyFOcv3r9LJzfKRM0 fVxwbGFpblxsdHJjaFxmczIwIC BmbHVpZCByZWNlaXZlZCBccHJv oHAhwAdfDpomfPV5DUweJknprT 5rfBOSPFPNRpxBCcuvapPcAG6W HJYCWsCBVE60DQQ0UMU1lLF4E8 79AJSnZBTbaEKrFSwbU849MfJp v1j2BAXpKOdze1blNKPsSMyvw1 ZsYPlRMBOKQC5ZUO9onTL8TQnC HVPHDRxrYPoqCqR9W8ltjHmlRs neydAddVPiMmQFqT5oeJoaxL1h zFKvI7gsOcElYNLdQFgjLWYeHK izFvqhOgMzMXD9VVXkXSemHIPr ZXBhcmVkOlxiMFxjZjAgICBUaG luUHJlcCBhbmQgMSBDZWxsIEJs m1FfPLNlKKNdwwZMQakvCBKqCD FmnBQUa3OeRUDIZjq5ZGNIUSUJ UMqSHG8FIQVGYDLYGA4LHFqPNf WeQWrzRpL0YV5mOuOaRHBkLUfv VQyfNRL6GPA5lBD6VEAPFFWXSN tMK3WwZBAIGMKGTGQnAL1XVFbM RNMOHMBVH03TLVKLYGQET8USP0 vXPBuWUKVUERIQB31EJOLZCTNX S4FHKELVLGHPDSmPASUBBn0LZV PHHQUIZD2ZMRhVNfNlXTqJU14m T6yICLMRWeYGT6RTJqQZEsYjDF BeH4p6Scg0Ab4UBPwJOhEZQ5uV DvwzIUlpBmDuaEJkg0J7zT3bh8 k3UFNrfUX5iETzFrTlKHOkDGv2 KVKUXRHSAM5SYWXRD03QINFRRL XNZ5YKJJCWJkKMTXNXB83QPOOF BPPFE9QWS8qDDFXXShXBRGIOO0 3TECADKBTBH4ABQPIYGMVJUbBY JpBRAU8KONPNPUEAWD4PTGbOVr UzBEYIV5MDCuSDI7kuFCKZIFKU YGLuTM5LAFmrjhBfRLZkL60cy1 HJu2Mgb3ztkOevj5GfpUDbGV74 EPUmkQAkBOE7CW7ekIjcQRNmDC pccGFyZCANClxwbGFpbiANCn0= [employer] Phone: Pathologist Interpretation Location [facility], [address] [place] [address]; CLIA: [id number]; Joint Commission: HCO [id number]; CAP: [id number] [facility] Phone: Pathology report final diagnosis Narrative a6tqjVHvFWAptIVvBMnkEAxifc KgPCBxeJSoW8GnlcuoRLwbTN6s UV6tdIytrVTfiKCyTPXxMhBua4 sxl957gTGrm4qfNWWWAHllCRSC XRz0zRfbC96xz9X3HephG7jjPS S6DHvauiPtrbq8STAenWV3GJp6 XHBhcGVydzEyMjQwXHBhcGVyaD O6GVYyNX1iwwnuTXsdAKrqMRMq bkX9XNUeuJDsF2QnQQWbYX5sfc ypQXQ0OUsfBHFsQJO6EgKqOQMz c0Xpkye2QpWwcZQlTDjscTVhqo xmczIwXGNmMSBBICAtIFBsZXVy RQuyI2J6wQY6OFARJAC5CG5nDw 0bdXFNzAVcBWceZ1r1n7vrD6p5 HPCbAVFyUWjmZBGrZd7zZVYKXS yWQV3IVMRGEWjDGTpMOX2WSDHC RUQuXHBhclxwYXJkXHBhcn0= [employer] Work Phone: [employer] Work Phone: No Panel InformationOrdered By: Yesenia Nolen on 02-19-2024 [email or web address] Work Phone: Basic metabolic 1998 panelon 02-18-2024 Anion gap [Moles/Vol] 4 mmol/L 3 - 13 mmol/L [email or web address] Calcium [Mass/Vol] 8.6 mg/dL 8.4 - 10. 4 mg/dL [email or web address] Chloride [Moles/Vol] 102 mmol/L 98 - 10 7 mmol/L [facility] CO2 [Moles/Vol] 27 mmol/L 22 - 30 mmol/L [facility] Creatinine [Mass/Vol] 5.35 mg/dL High 0.66 - 1.25 mg/dL [facility] GFR/1.73 sq M.predicted MDRD (S/P/Bld) [Vol rate/Area] 10.4 mL/min/{1.73_m2} Low - PINF [facility] Glucose [Mass/Vol] 128 mg/dL High 70 - 100 mg/dL [email or web address] Interpretation and review of laboratory results Abnormal [email or web address] Potassium [Moles/Vol] 4.3 mmol/L 3.5 - 5.1 mmol/L [facility] Sodium [Moles/Vol] 133 mmol/L Low 135 - 145 mmol/L [facility] Urea nitrogen [Mass/Vol] 41 mg/dL High 9 - 20 mg/dL [facility] Laboratory - Chemistry and C hemistry - challengeon 02-18-2024 Glucose [Mass/Vol] 263 mg/dL High 70 - 100 mg/dL [email or web address] Glucose [Mass/Vol] 120 mg/dL High 70 - 100 mg/dL [email or web address] Glucose [Mass/Vol] 132 mg/dL High 70 - 100 mg/dL [facility] Glucose [Mass/Vol] 87 mg/dL 70 - 100 mg/dL [facility] No Panel Informationon 02-17 Interpretation and review of laboratory results Abnormal [facility] Interpretation and review of laboratory results Abnormal [facility] Interpretation and review of laboratory results Abnormal [facility] Interpretation and review of laboratory results Normal [facility] Laboratory - Chemistry and C hemistry - challengeon 02-17-2024 Glucose [Mass/Vol] 173 mg/dL High 70 - 100 mg/dL [facility] Glucose [Mass/Vol] 165 mg/dL High 70 - 100 mg/dL [facility] Glucose [Mass/Vol] 169 mg/dL High 70 - 100 mg/dL [facility] Glucose [Mass/Vol] 145 mg/dL High 70 - 100 mg/dL [facility] No Panel Informationon 02-16 Interpretation and review of laboratory results Abnormal [facility] Interpretation and review of laboratory results Abnormal [facility] Interpretation and review of laboratory results Abnormal [facility] Interpretation and review of laboratory results Abnormal [facility] Laboratoryon 02-16-2024 Fluid Nom (Body fld) Peritoneal Fluid [facility] LaboratoryOrdered By: Elder Holden on 02-16-2024 Fluid Nom (Body fld) Peritoneal Fluid [facility] LaboratoryOrdered By: Monica Trent on 02-16-2024 Fluid Nom (Body fld) Peritoneal Fluid [facility] Laboratory - Chemistry and C hemistry - challengeon 02-16-2024 Glucose [Mass/Vol] 205 mg/dL High 70 - 100 mg/dL [facility] Albumin (Body fld) [Mass/Vol] 1.7 g/dL No Range [facility] Glucose (Body fld) [Mass/Vol] 130 mg/dL No Range [facility] LDH (Body fld) [Catalytic activity/Vol] 138 U/L No Range [facility] Glucose [Mass/Vol] 151 mg/dL High 70 - 100 mg/dL [facility] Glucose [Mass/Vol] 126 mg/dL High 70 - 100 mg/dL [facility] Glucose [Mass/Vol] 176 mg/dL High 70 - 100 mg/dL [facility] Laboratory - Chemistry and C hemistry - challengeOrdered By: Jacquie Trent on 02-16-2024 pH (Body fld) 7.403 [pH] [facility] Laboratory - Coagulationon 0 02-16-2024 PT Coag (Bld) [Time] 11.4 s 9.0 - 1 2.0 s [facility] Laboratory - Hematology and Cell countson 02-16-2024 Cells Counted Total (Body fld) [#] 100 [facility] Lymphocytes/100 WBC (Bld) 74 % [facility] Macrophages/100 WBC Manual cnt (Body fld) 14 % [facility] Neutrophils/100 WBC (Body fld) 12 % [facility] Laboratory - Hematology and Cell countsOrdered By: Milli Holden on 02-16-2024 RBC Auto (Body fld) [#/Vol] 0.014 High 0.000 x10*6/ul [facility] WBC (Body fld) [#/Vol] 0.094 10*3/uL High NINF [facility] No Panel Informationon 02-15 [facility] Interpretation and review of laboratory results Abnormal [facility] Interpretation and review of laboratory results Abnormal [facility] RADIOLOGY SYSTEM [facility] RADIOLOGY SYSTEM [facility] Radiology Study observation (narrative) [facility] Interpretation and review of laboratory results Abnormal [facility] Interpretation and review of laboratory results Abnormal [facility] No Panel InformationOrdered By: Milli Holden on 02-16-2024 Interpretation and review of laboratory results Abnormal [facility] No Panel InformationOrdered By: Jacquie Trent on 02-16-2024 [facility] No Panel InformationOrdered By: Jose Mejia on 02-16-2024 [facility] Work Phone: PT Coag (Bld) [Time]on 02-15 INR Coag (PPP) [Relative time] 1.0 {INR} 0.9 - 1.1 [facility] Interpretation and review of laboratory results Normal [facility] Basic metabolic 1998 panelOr dered By: Kimber Gill on 02-15-2024 Anion gap [Moles/Vol] 6 mmol/L 3 - 13 mmol/L [facility] Calcium [Mass/Vol] 8.4 mg/dL 8.4 - 10. 4 mg/dL [facility] Chloride [Moles/Vol] 103 mmol/L 98 - 10 7 mmol/L [facility] CO2 [Moles/Vol] 24 mmol/L 22 - 30 mmol/L [facility] Creatinine [Mass/Vol] 5.09 mg/dL High 0.66 - 1.25 mg/dL [facility] GFR/1.73 sq M.predicted MDRD (S/P/Bld) [Vol rate/Area] 11.1 mL/min/{1.73_m2} Low - PINF [facility] Glucose [Mass/Vol] 180 mg/dL High 70 - 100 mg/dL [facility] Interpretation and review of laboratory results Abnormal [facility] Potassium [Moles/Vol] 4.6 mmol/L 3.5 - 5.1 mmol/L [facility] Sodium [Moles/Vol] 132 mmol/L Low 135 - 145 mmol/L [facility] Urea nitrogen [Mass/Vol] 38 mg/dL High 9 - 20 mg/dL [facility] Laboratory - Chemistry and C hemistry - challengeon 02-15-2024 Glucose [Mass/Vol] 163 mg/dL High 70 - 100 mg/dL [facility] Glucose [Mass/Vol] 164 mg/dL High 70 - 100 mg/dL [facility] Glucose [Mass/Vol] 211 mg/dL High 70 - 100 mg/dL [facility] Glucose [Mass/Vol] 111 mg/dL High 70 - 100 mg/dL [facility] No Panel Informationon 02-14 Interpretation and review of laboratory results Abnormal [facility] Interpretation and review of laboratory results Abnormal [facility] Interpretation and review of laboratory results Abnormal [facility] Interpretation and review of laboratory results Abnormal [facility] US Heart TransthoracicOrdere d By: Keshawn Guevara on 02-15-2024 Ao Root Index 1.73 cm/m2 [email or web address] Work Phone: Aortic Root 3.0 cm [email or web address] Work Phone: AV Area by Peak Velocity 2.7 cm2 [email or web address] Work Phone: AV Area by VTI 2.8 cm2 [email or web address] Work Phone: AV Mean Gradient 2 mmHg [email or web address] Work Phone: AV Mean Velocity 0.7 m/s [email or web address] Work Phone: AV Peak Gradient 5 mmHg [email or web address] Work Phone: AV Peak Velocity 1.1 m/s [email or web address] Work Phone: AV Velocity Ratio 0.82 [email or web address] Work Phone: AV VTI 22.8 cm [email or web address] Work Phone: YUVAL/BSA Peak Velocity 1.6 cm2/m2 [email or web address] Work Phone: YUVAL/BSA VTI 1.6 cm2/m2 [email or web address] Work Phone: E/E' Lateral 12.38 [email or web address] Work Phone: E/E' Ratio (Averaged) 13.[address] [email or web address] Work Phone: E/E' Septal 14.14 [email or web address] Work Phone: Fractional Shortening 2D 18 % 28 - 44 % [email or web address] Work Phone: IVSd 0.8 cm 0.6 - 1.0 cm [email or web address] Work Phone: LA Volume 4C 42 mL 18 - 58 mL [email or web address] Work Phone: LA Volume Index 4C 24 mL/m2 16 - 34 mL/m2 [email or web address] Work Phone: LV E' Lateral Velocity 8 cm/s [facility] Work Phone: LV E' Septal Velocity 7 cm/s [email or web address] Work Phone: LV EDV A4C 35 mL [email or web address] Work Phone: LV EDV Index A4C 20 mL/m2 [email or web address] Work Phone: LV Ejection Fraction A4C 41 % [email or web address] Work Phone: LV ESV A4C 21 mL [employer] Work Phone: LV ESV Index A4C 12 mL/m2 [employer] Work Phone: LV Mass 2D 158.2 g 88 - 224 g [employer] Work Phone: LV Mass 2D Index 91.4 g/m2 49 - 115 g/m2 [employer] Work Phone: LV RWT Ratio 0.40 [employer] Work Phone: LVIDd 5.0 cm 4.2 - 5.9 cm [employer] Work Phone: LVIDd Index 2.89 cm/m2 [employer] Work Phone: LVIDs 4.1 cm [employer] Work Phone: LVIDs Index 2.37 cm/m2 [employer] Work Phone: LVOT Area 3.5 cm2 [employer] Work Phone: LVOT Cardiac Output 10.9 liter/mi nu te [employer] Work Phone: LVOT Diameter 2.1 cm [employer] Work Phone: LVOT Mean Gradient 1 mmHg [employer] Work Phone: LVOT Peak Gradient 3 mmHg [employer] Work Phone: LVOT Peak Velocity 0.9 m/s [employer] Work Phone: LVOT Stroke Volume Index 38.4 mL/m2 [employer] Work Phone: LVOT SV 66.5 ml [employer] Work Phone: LVOT VTI 19.2 cm [employer] Work Phone: LVOT:AV VTI Index 0.84 [employer] Work Phone: LVPWd 1.0 cm 0.6 - 1.0 cm [employer] Work Phone: MV A Velocity 0.88 m/s [employer] Work Phone: MV E Velocity 0.99 m/s [employer] Work Phone: MV E Wave Deceleration Time 185.6 ms [employer] Work Phone: MV E/A 1.13 [employer] Work Phone: RV Free Wall Peak S' 6 cm/s [employer] Work Phone: Sinotubular [place] 2.8 cm [employer] Work Phone: TR Max Velocity 2.54 m/s [employer] Work Phone: TR Peak Gradient 26 mmHg [employer] Work Phone: [employer] Work Phone: US Heart Transthoracicon CV CPACS Basic metabolic 1998 panelon 02-14-2024 Anion gap [Moles/Vol] 5 mmol/L 3 - 13 mmol/L [email or web address] Calcium [Mass/Vol] 8.6 mg/dL 8.4 - 10. 4 mg/dL [email or web address] [email or web address] Chloride [Moles/Vol] 102 mmol/L 98 - 10 7 mmol/L [email or web address] [email or web address] CO2 [Moles/Vol] 28 mmol/L 22 - 30 mmol/L [place] [email or web address] Creatinine [Mass/Vol] 3.63 mg/dL High 0.66 - 1.25 mg/dL [email or web address] [email or web address] GFR/1.73 sq M.predicted MDRD (S/P/Bld) [Vol rate/Area] 16.6 mL/min/{1.73_m2} Low - PINF [place] [email or web address] Glucose [Mass/Vol] 170 mg/dL High 70 - 100 mg/dL [email or web address] [email or web address] Interpretation and review of laboratory results Abnormal [email or web address] [email or web address] Potassium [Moles/Vol] 4.4 mmol/L 3.5 - 5.1 mmol/L [email or web address] [email or web address] Sodium [Moles/Vol] 136 mmol/L 135 - 145 mmol/L [email or web address] [email or web address] Urea nitrogen [Mass/Vol] 24 mg/dL High 9 - 20 mg/dL [facility] CT Chest WO contraston 02-13 [facility] Radiology Study observation (narrative) [facility] CT Chest WO contrastOrdered By: Dora Perry on 02-14-2024 [facility] - Chemistry and C hemistry - challengeon 02-14-2024 Glucose [Mass/Vol] 173 mg/dL High 70 - 100 mg/dL [facility] Glucose [Mass/Vol] 199 mg/dL High 70 - 100 mg/dL [facility] Glucose [Mass/Vol] 149 mg/dL High 70 - 100 mg/dL [facility] Glucose [Mass/Vol] 228 mg/dL High 70 - 100 mg/dL [facility] Glucose [Mass/Vol] 107 mg/dL High 70 - 100 mg/dL [facility] No Panel Informationon 02-13 Interpretation and review of laboratory results Abnormal [facility] Interpretation and review of laboratory results Abnormal [facility] Interpretation and review of laboratory results Abnormal [facility] Interpretation and review of laboratory results Abnormal [facility] Interpretation and review of laboratory results Abnormal [facility] Basic metabolic 1998 panelon 02-13-2024 Anion gap [Moles/Vol] 7 mmol/L 3 - 13 mmol/L [facility] Calcium [Mass/Vol] 8.1 mg/dL Low 8.4 - 10. 4 mg/dL [facility] Chloride [Moles/Vol] 103 mmol/L 98 - 10 7 mmol/L [facility] CO2 [Moles/Vol] 25 mmol/L 22 - 30 mmol/L [facility] Creatinine [Mass/Vol] 4.45 mg/dL High 0.66 - 1.25 mg/dL [facility] GFR/1.73 sq M.predicted MDRD (S/P/Bld) [Vol rate/Area] 13.0 mL/min/{1.73_m2} Low - PINF [facility] Glucose [Mass/Vol] 188 mg/dL High 70 - 100 mg/dL [facility] Interpretation and review of laboratory results Abnormal [facility] Potassium [Moles/Vol] 4.1 mmol/L 3.5 - 5.1 mmol/L [facility] Sodium [Moles/Vol] 135 mmol/L 135 - 145 mmol/L [facility] Urea nitrogen [Mass/Vol] 38 mg/dL High 9 - 20 mg/dL [facility] Laboratory - Chemistry and C hemistry - challengeon 02-13-2024 Glucose [Mass/Vol] 224 mg/dL High 70 - 100 mg/dL [facility] Glucose [Mass/Vol] 104 mg/dL High 70 - 100 mg/dL [facility] Base excess Calc (Bld) [Moles/Vol] 0.8 mmol/L -3.0 - 3.0 mmol/L [facility] CO2 (Bld) [Partial pressure] 53.7 mm[Hg] High - PINF [facility] CO2 [Moles/Vol] 28.9 mmol/L High 23.0 - 27.0 mmol/L [facility] HCO3 (Bld) [Moles/Vol] 27.3 mmol/L High 21.0 - 25.0 mmol/L [facility] Oxygen (Bld) [Partial pressure] 50.5 mm[Hg] Low [facility] pH (Bld) 7.324 [pH] Low 7.350 - 7.450 [facility] Laboratory - Chemistry and C hemistry - challengeOrdered By: Elías Hastings on 02-13-2024 Base excess Calc (Bld) [Moles/Vol] 0.3 mmol/L -3.0 - 3.0 mmol/L [facility] CO2 (Bld) [Partial pressure] 57.1 mm[Hg] High - PINF [facility] CO2 [Moles/Vol] 29.0 mmol/L High 23.0 - 27.0 mmol/L [facility] HCO3 (Bld) [Moles/Vol] 27.3 mmol/L High 21.0 - 25.0 mmol/L [facility] Oxygen (Bld) [Partial pressure] 122.2 mm[Hg] High [facility] pH (Bld) 7.297 [pH] Low 7.350 - 7.450 [facility] Laboratory - Hematology and Cell countsOrdered By: Elías Hastings on 02-13-2024 Hemoglobin (Bld) [Mass/Vol] 9.1 g/dL Screen only [facility] Laboratory - Hematology and Cell countson 02-13-2024 Hemoglobin (Bld) [Mass/Vol] 9.3 g/dL Screen only [facility] No Panel Informationon 02-12 Interpretation and review of laboratory results Abnormal [facility] Interpretation and review of laboratory results Abnormal [facility] Interpretation and review of laboratory results Abnormal [facility] Source Of Oxygen High flow nasal cannula [facility] No Panel InformationOrdered By: Elías Hastings on 02-13-2024 Interpretation and review of laboratory results Abnormal [facility] Source Of Oxygen High flow nasal cannula [facility] CBC W Auto Differential pane l (Bld)on 02-12-2024 Basophils (Bld) [#/Vol] 0.1 10*3/uL 0.0 - 0.2 10*3/uL [facility] Basophils/100 WBC (Bld) 1.0 % 0.0 - 2.0 % [facility] Eosinophils (Bld) [#/Vol] 0.3 10*3/uL 0.0 - 0.5 10*3/uL [facility] Eosinophils/100 WBC (Bld) 3.6 % 0.0 - 6.0 % [facility] Erythrocyte distribution width (RBC) [Ratio] 16.8 % High 11.5 - 15.0 % [facility] Hematocrit (Bld) [Volume fraction] 29.8 % Low 40.0 - 52.0 % [facility] Hemoglobin (Bld) [Mass/Vol] 9.3 g/dL Low 13.0 - 18.0 g/dL [facility] Immature granulocytes (Bld) [#/Vol] 0.0 10*3/uL NINF - 0.1 10*3/uL [facility] Immature granulocytes/100 WBC (Bld) 0.6 % 0.0 - 2.0 % [facility] Interpretation and review of laboratory results Abnormal [facility] Lymphocytes (Bld) [#/Vol] 0.6 10*3/uL Low 1.0 - 4.3 10*3/uL [facility] Lymphocytes/100 WBC (Bld) 8.4 % Low 15.0 - 45.0 % [facility] MCH (RBC) [Entitic mass] 29.5 pg 26.0 - 34.0 pg [facility] MCHC (RBC) [Mass/Vol] 31.2 % 30.5 - 36.0 % [facility] MCV (RBC) [Entitic vol] 94.6 fL 77.0 - 99.0 fL [facility] Monocytes (Bld) [#/Vol] 0.7 10*3/uL 0.0 - 0.9 10*3/uL [facility] Monocytes/100 WBC (Bld) 9.3 % 5.0 - 13.0 % [facility] Neutrophils (Bld) [#/Vol] 5.6 10*3/uL 1.8 - 7.5 10*3/uL [facility] Neutrophils/100 WBC (Bld) 77.1 % 38.0 - 82.0 % [facility] Nucleated RBC/100 WBC (Bld) [Ratio] 0.0 % [facility] Platelet mean volume (Bld) [Entitic vol] 10.2 fL 9.0 - 12.7 fL [facility] Platelets (Bld) [#/Vol] 184 10*3/uL 140 - 440 10*3/uL [facility] RBC (Bld) [#/Vol] 3.15 10*6/uL Low 4.40 - 5.90 10*6/uL [facility] WBC (Bld) [#/Vol] 7.2 10*3/uL 3.6 - 10.7 10*3/uL [facility] Comprehensive metabolic 1998 panelon 02-12-2024 Albumin [Mass/Vol] 3.4 g/dL Low 3.5 - 5.0 g/dL [facility] ALP [Catalytic activity/Vol] 84 U/L 38 - 126 U/L [facility] ALT [Catalytic activity/Vol] 32 U/L 0 - 49 U/L [facility] Anion gap [Moles/Vol] 8 mmol/L 3 - 13 mmol/L [facility] AST [Catalytic activity/Vol] 31 U/L 15 - 46 U/L [facility] Bilirubin [Mass/Vol] 0.5 mg/dL 0.2 - 1 .3 mg/dL [facility] Calcium [Mass/Vol] 8.6 mg/dL 8.4 - 10. 4 mg/dL [facility] Chloride [Moles/Vol] 99 mmol/L 98 - 10 7 mmol/L [facility] CO2 [Moles/Vol] 28 mmol/L 22 - 30 mmol/L [facility] Creatinine [Mass/Vol] 3.89 mg/dL High 0.66 - 1.25 mg/dL [facility] GFR/1.73 sq M.predicted MDRD (S/P/Bld) [Vol rate/Area] 15.3 mL/min/{1.73_m2} Low - PINF [facility] Glucose [Mass/Vol] 156 mg/dL High 70 - 100 mg/dL [facility] Interpretation and review of laboratory results Abnormal [facility] Potassium [Moles/Vol] 4.1 mmol/L 3.5 - 5.1 mmol/L [facility] Protein [Mass/Vol] 6.4 g/dL 6.3 - 8.2 g/dL [facility] Sodium [Moles/Vol] 135 mmol/L 135 - 145 mmol/L [facility] Urea nitrogen [Mass/Vol] 30 mg/dL High 9 - 20 mg/dL [facility] Laboratory - Chemistry and C hemistry - challengeon 02-12-2024 Glucose [Mass/Vol] 217 mg/dL High 70 - 100 mg/dL [facility] Troponin I.cardiac [Mass/Vol] 0.023 ng/mL [facility] - [facility] ng/mL [facility] Troponin I.cardiac [Mass/Vol] 0.024 ng/mL [facility] - 0.034 ng/mL [facility] Troponin I.cardiac [Mass/Vol] 0.020 ng/mL [facility] - 0.034 ng/mL [facility] Natriuretic peptide B [Mass/ Vol]Ordered By: Whit Chavira on 02-12-2024 Interpretation and review of laboratory results Abnormal [facility] Natriuretic peptide B (Bld) [Mass/Vol] 35215 pg/mL High NINF - 450 pg/mL [facility] No Panel Informationon 02-11 Interpretation and review of laboratory results Abnormal [facility] [email or web address] CV EPIPHANY [place] [email or web address] No Panel InformationOrdered By: Agustin Bradshaw on 02-12-2024 P [place] 35 degrees [employer] Work Phone: OR Interval 142 ms [employer] Work Phone: QRS [place] 140 degrees [employer] Work Phone: QRSD Interval 177 ms [employer] Work Phone: QT Interval 498 ms [employer] Work Phone: [phone] QTC Interval 555 ms [employer] Work Phone: T Wave [place] 47 degrees [employer] Work Phone: [employer] Work Phone: Troponin I.cardiac [Mass/Vol ]on 02-12-2024 Interpretation and review of laboratory results Normal [facility] Interpretation and review of laboratory results Normal [facility] Interpretation and review of laboratory results Normal [facility] Vital signsOrdered By: Alfa Ems on 02-12-2024 Heart rate 75 /min bpm [facility] Work Phone: XR Chest Single viewon 02-11 [facility] Radiology Study observation (narrative) [facility] XR Chest Single viewOrdered By: Michele Villasenor on 02-12-2024 [facility] Work Phone: Bacteria identified Anaer cx Nom (Unsp spec)on 01-30-2024 Interpretation and review of laboratory results Normal [facility] CBC panel Auto (Bld)on 01-29 Erythrocyte distribution width (RBC) [Ratio] 16.2 % High 11.5 - 15.0 % [facility] Hematocrit (Bld) [Volume fraction] 28.0 % Low 40.0 - 52.0 % [facility] Hemoglobin (Bld) [Mass/Vol] 8.8 g/dL Low 13.0 - 18.0 g/dL [facility] Interpretation and review of laboratory results Abnormal [facility] MCH (RBC) [Entitic mass] 29.0 pg 26.0 - 34.0 pg [facility] MCHC (RBC) [Mass/Vol] 31.4 % 30.5 - 36.0 % [facility] MCV (RBC) [Entitic vol] 92.4 fL 77.0 - 99.0 fL [facility] Platelet mean volume (Bld) [Entitic vol] 9.8 fL 9.0 - 12.7 fL [facility] Platelets (Bld) [#/Vol] 249 10*3/uL 140 - 440 10*3/uL [facility] RBC (Bld) [#/Vol] 3.03 10*6/uL Low 4.40 - 5.90 10*6/uL [facility] WBC (Bld) [#/Vol] 9.1 10*3/uL 3.6 - 10.7 10*3/uL [facility] Comprehensive metabolic 1998 panelon 01-30-2024 Albumin [Mass/Vol] 2.8 g/dL Low 3.5 - 5.0 g/dL [facility] ALP [Catalytic activity/Vol] 62 U/L 38 - 126 U/L [facility] ALT [Catalytic activity/Vol] 47 U/L 0 - 49 U/L [facility] Anion gap [Moles/Vol] 7 mmol/L 3 - 13 mmol/L [facility] AST [Catalytic activity/Vol] 32 U/L 15 - 46 U/L [facility] Bilirubin [Mass/Vol] 0.4 mg/dL 0.2 - 1 .3 mg/dL [facility] Calcium [Mass/Vol] 8.2 mg/dL Low 8.4 - 10. 4 mg/dL [facility] Chloride [Moles/Vol] 99 mmol/L 98 - 10 7 mmol/L [facility] CO2 [Moles/Vol] 29 mmol/L 22 - 30 mmol/L [facility] Creatinine [Mass/Vol] 5.61 mg/dL High 0.66 - 1.25 mg/dL [facility] GFR/1.73 sq M.predicted MDRD (S/P/Bld) [Vol rate/Area] 9.8 mL/min/{1.73_m2} Low - PINF [facility] Comment on above: Calculation based on the Chronic Kidney Disease Epidemiology Collaboration (CKD-EPI) equation refit without adjustment for race Glucose [Mass/Vol] 70 mg/dL 70 - 100 mg/dL [facility] Interpretation and review of laboratory results Abnormal [facility] Potassium [Moles/Vol] 4.0 mmol/L 3.5 - 5.1 mmol/L [facility] Protein [Mass/Vol] 5.6 g/dL Low 6.3 - 8.2 g/dL [facility] Sodium [Moles/Vol] 135 mmol/L 135 - 145 mmol/L [facility] Urea nitrogen [Mass/Vol] 55 mg/dL High 9 - 20 mg/dL [facility] Laboratory - Chemistry and C hemistry - challengeon 01-30-2024 Glucose [Mass/Vol] 218 mg/dL High 70 - 100 mg/dL [facility] Glucose [Mass/Vol] 233 mg/dL High 70 - 100 mg/dL [facility] Glucose [Mass/Vol] 163 mg/dL High 70 - 100 mg/dL [facility] Glucose [Mass/Vol] 73 mg/dL 70 - 100 mg/dL [facility] Laboratory - Microbiology an d Antimicrobial susceptibilityon 01-30-2024 Bacteria identified Anaer cx Nom (Unsp spec) No growth at 5 days [facility] No Panel Informationon 01-29 Interpretation and review of laboratory results Abnormal [facility] Performed by: [facility], [address] [place] [address] CLIA ID: [id number] [facility] Interpretation and review of laboratory results Abnormal [facility] Performed by: [facility], [address] [place] [address] CLIA ID: [id number] [facility] Interpretation and review of laboratory results Abnormal [facility] Performed by: [facility], [address] [place] [address] CLIA ID: [id number] [facility] Interpretation and review of laboratory results Normal [facility] Performed by: [facility], [address] [place] [address] CLIA ID: [id number] [facility] Radiology Study observation (narrative) [facility] Radiology Study observation (narrative) [facility] Radiology Study observation (narrative) [facility] Radiology Study observation (narrative) [facility] Bacteria identified Aer cx N om (Unsp spec)Ordered By: Lexis Kearney on 01-29-2024 Gram Stain Result Rare Polymorphonucle ar leukocytes per low power field [facility] Gram Stain Result No organisms seen [facility] Bacteria identified Anaer cx Nom (Unsp spec)Ordered By: Ronald Dunne on 01-29-2024 Interpretation and review of laboratory results Normal [facility] CBC panel Auto (Bld)on 01-28 Erythrocyte distribution width (RBC) [Ratio] 15.8 % High 11.5 - 15.0 % [facility] Hematocrit (Bld) [Volume fraction] 26.6 % Low 40.0 - 52.0 % [facility] Hemoglobin (Bld) [Mass/Vol] 8.4 g/dL Low 13.0 - 18.0 g/dL [facility] Interpretation and review of laboratory results Abnormal [facility] MCH (RBC) [Entitic mass] 28.4 pg 26.0 - 34.0 pg [facility] MCHC (RBC) [Mass/Vol] 31.6 % 30.5 - 36.0 % [facility] MCV (RBC) [Entitic vol] 89.9 fL 77.0 - 99.0 fL [facility] Platelet mean volume (Bld) [Entitic vol] 9.7 fL 9.0 - 12.7 fL [facility] Platelets (Bld) [#/Vol] 229 10*3/uL 140 - 440 10*3/uL [facility] RBC (Bld) [#/Vol] 2.96 10*6/uL Low 4.40 - 5.90 10*6/uL [facility] WBC (Bld) [#/Vol] 12.3 10*3/uL High 3.6 - 10.7 10*3/uL [facility] Comprehensive metabolic 1998 panelon 01-29-2024 Albumin [Mass/Vol] 2.9 g/dL Low 3.5 - 5.0 g/dL [facility] ALP [Catalytic activity/Vol] 69 U/L 38 - 126 U/L [facility] ALT [Catalytic activity/Vol] 56 U/L High 0 - 49 U/L [facility] Anion gap [Moles/Vol] 6 mmol/L 3 - 13 mmol/L [facility] AST [Catalytic activity/Vol] 31 U/L 15 - 46 U/L [facility] Bilirubin [Mass/Vol] 0.7 mg/dL 0.2 - 1 .3 mg/dL [facility] Calcium [Mass/Vol] 8.4 mg/dL 8.4 - 10. 4 mg/dL [facility] Chloride [Moles/Vol] 99 mmol/L 98 - 10 7 mmol/L [facility] CO2 [Moles/Vol] 31 mmol/L High 22 - 30 mmol/L [facility] Creatinine [Mass/Vol] 4.08 mg/dL High 0.66 - 1.25 mg/dL [facility] GFR/1.73 sq M.predicted MDRD (S/P/Bld) [Vol rate/Area] 14.4 mL/min/{1.73_m2} Low - PINF [facility] Comment on above: Calculation based on the Chronic Kidney Disease Epidemiology Collaboration (CKD-EPI) equation refit without adjustment for race Glucose [Mass/Vol] 167 mg/dL High 70 - 100 mg/dL [facility] Interpretation and review of laboratory results Abnormal [facility] Potassium [Moles/Vol] 4.2 mmol/L 3.5 - 5.1 mmol/L [facility] Protein [Mass/Vol] 5.8 g/dL Low 6.3 - 8.2 g/dL [facility] Sodium [Moles/Vol] 135 mmol/L 135 - 145 mmol/L [facility] Urea nitrogen [Mass/Vol] 38 mg/dL High 9 - 20 mg/dL [facility] Laboratory - Chemistry and C hemistry - challengeon 01-29-2024 Glucose [Mass/Vol] 208 mg/dL High 70 - 100 mg/dL [facility] Glucose [Mass/Vol] 172 mg/dL High 70 - 100 mg/dL [facility] Glucose [Mass/Vol] 145 mg/dL High 70 - 100 mg/dL [facility] Glucose [Mass/Vol] 155 mg/dL High 70 - 100 mg/dL [facility] Glucose [Mass/Vol] 174 mg/dL High 70 - 100 mg/dL [facility] Laboratory - Microbiology an d Antimicrobial susceptibilityOrdered By: Lexis Kearney on 01-29-2024 Bacteria identified Aer cx Nom (Unsp spec) No growth at 4 days [facility] Laboratory - Microbiology an d Antimicrobial susceptibilityOrdered By: Ronald Dunne on 01-29-2024 Bacteria identified Anaer cx Nom (Unsp spec) No growth at 5 days [facility] No Panel Informationon 01-28 Interpretation and review of laboratory results Abnormal [facility]formed by: [facility], [address] [place] [address] CLIA ID: [id number] [facility] Interpretation and review of laboratory results Abnormal [facility] Performed by: [place] [employer] [facility], [address] [place] [address] CLIA ID: [id number] [facility] Interpretation and review of laboratory results Abnormal [facility] Performed by: [place] [employer] [facility], [address] [place] [address] CLIA ID: [id number] [facility] Interpretation and review of laboratory results Abnormal [facility] Performed by: [facility], [address] [place] [address] CLIA ID: [id number] [facility] Interpretation and review of laboratory results Abnormal [facility] Performed by: [employer] [place] [facility], [address] [facility] [address] CLIA ID: [id number] [facility] Radiology Study observation (narrative) [facility] Radiology Study observation (narrative) [facility] Radiology Study observation (narrative) [facility] Radiology Study observation (narrative) [facility] Radiology Study observation (narrative) [facility] Phosphate [Moles/Vol]on 01-05 Interpretation and review of laboratory results Normal [facility] Phosphate [Mass/Vol] 3.6 mg/dL 2.5 - 4 .5 mg/dL [facility] Bacteria identified Aer cx N om (Unsp spec)Ordered By: Dolly Adrian on 01-28-2024 Gram Stain Result Few Polymorphonuclea r leukocytes per low power field [facility] Gram Stain Result No organisms seen [facility] Bacteria identified Cx Nom ( Bld)on 01-28-2024 Interpretation and review of laboratory results Normal [facility] Blood Collection Sit e: Right Hand [facility] Blood Collection Sit e: Left Hand [facility] Blood type and Crossmatch pa lily (Bld)on 01-28-2024 ABO group Nom (Bld) A [facility] Blood group antibody screen GEL Ql Negative [facility] D Ag Ql (RBC) Positive [facility] CBC panel Auto (Bld)on 01-27 Erythrocyte distribution width (RBC) [Ratio] 15.9 % High 11.5 - 15.0 % [facility] Hematocrit (Bld) [Volume fraction] 21.1 % Low 40.0 - 52.0 % [facility] Hemoglobin (Bld) [Mass/Vol] 6.7 g/dL Critically low 13.0 - 18.0 g/dL [facility] Interpretation and review of laboratory results Abnormal [facility] MCH (RBC) [Entitic mass] 28.6 pg 26.0 - 34.0 pg [facility] MCHC (RBC) [Mass/Vol] 31.8 % 30.5 - 36.0 % [facility] MCV (RBC) [Entitic vol] 90.2 fL 77.0 - 99.0 fL [facility] Platelet mean volume (Bld) [Entitic vol] 10.0 fL 9.0 - 12.7 fL [facility] Platelets (Bld) [#/Vol] 229 10*3/uL 140 - 440 10*3/uL [facility] RBC (Bld) [#/Vol] 2.34 10*6/uL Low 4.40 - 5.90 10*6/uL [facility] WBC (Bld) [#/Vol] 12.7 10*3/uL High 3.6 - 10.7 10*3/uL [facility] Hemoglobin (Bld) [Mass/Vol]o n 01-28-2024 Hematocrit (Bld) [Volume fraction] 26.7 % Low 40.0 - 52.0 % [facility] Interpretation and review of laboratory results Abnormal [facility] Laboratory - Chemistry and C hemistry - challengeon 01-28-2024 Glucose [Mass/Vol] 270 mg/dL High 70 - 100 mg/dL [facility] Glucose [Mass/Vol] 295 mg/dL High 70 - 100 mg/dL [facility] Glucose [Mass/Vol] 160 mg/dL High 70 - 100 mg/dL [facility] Glucose [Mass/Vol] 188 mg/dL High 70 - 100 mg/dL [facility] Glucose [Mass/Vol] 319 mg/dL High 70 - 100 mg/dL [facility] Glucose [Mass/Vol] 382 mg/dL High 70 - 100 mg/dL [facility] Laboratory - Hematology and Cell countson 01-28-2024 Hemoglobin (Bld) [Mass/Vol] 8.8 g/dL Low 13.0 - 18.0 g/dL [facility] Laboratory - Microbiology an d Antimicrobial susceptibilityOrdered By: Dolly Adrian on 01-28-2024 Bacteria identified Aer cx Nom (Unsp spec) No growth at 4 days [facility] Laboratory - Microbiology an d Antimicrobial susceptibilityon 01-28-2024 Bacteria identified Cx Nom (Bld) No growth at 5 days [facility] No Panel Informationon 01-27 Interpretation and review of laboratory results Abnormal [facility] Performed by: [facility], [address] [place], [place] [id number] CLIA ID: [id number] [facility] Blood Expiration Date [id number] S [facility] Crossmatch interpretation COMP [facility] Dispense Status Transfused [facility] Product Blood Type 6200 [facility] PRODUCT CODE [id number] [facility] ABO A [facility] Number [id number] [facility] RH Positive [facility] Unit Volume 300 mL [facility] Interpretation and review of laboratory results Abnormal [facility] Performed by: [facility], [address] [place] [address] CLIA ID: [id number] [facility] Case Report Non-Gynecologic Cyto logy Case: [id number] Authorizing Provider: Arun Lancaster MD Collected: 01/25/2024 1025 Ordering Location: [facility] Cardiac Post Received: 01/25/2024 1220 Intervention Progressive Care Unit CPI PCU 4W Pathologist: Marti Vann MD PhD Specimen: Pleural Cavity, Right [facility] Case Screening Location [facility], [address] [place] [address]; CLIA: [id number]; Joint Commission: [id number]; CAP: [id number] [facility] Disclaimer [id number] MDAwXG Feg9inMBHfvHIuPdCwBlSuGeDy HehytGIkXNEiAjLya9itz681eR Wng2azPXHrGzS2wCJrHKXaG26v GNDBR529OTZoWPpuz1yuj1RmZR WrcKKmq6Y6INMCCNjvNIMQEJt7 eBouR72rn6A9FxvmK8nqURVdAJ RyJ5IeZH1kCDJqSwr7KLA6OCU8 IRTlGVIlA8DuMI3mVTDnxHTfSZ o6p6tplUrpKLXpTRT6t4bxESmp asSmBU7wyg8hbOr0g0pbwcDuHC KdEMOdzDSOQPYoD4UveMxzLj5f eEb1nYnpYncxXMR6Yuq2SU2jyq 48wbn0eMipXXOxqfliTuI1JWvq EBYuqebpDOz0ZUjgNFOipVI1ZG EywIIfA2YlNVFmKB8jiaj9CSF0 IGgnZMGmOeO5TYFfsRIyFWAvrT saPKqod315GNG3CgKoFP2cT6Sa i5U1pI5onXDfTSDyqQXsWlHxOQ Dako1rhVXwQWpzk5UkICP3jbL9 zVUrpFCbZXNmJB02Hfciu3QkIp taDDC5TEDcbmOau8Hdh9stCdZn fjEtK8mmH6DlBIGlWVRfFRMgMd MvhoSoo6Gnh8EvcIHvgSu2w3bi UJBdCJVybFkci6wcOKN0JVRrR8 M2nQQhx9xmIAvkHISryBN9zqJ1 DDNldKDuN8VomL1iJCVzPT6oye x8j7rnXPI5BFieBHScWmD0wtW6 JAXzmQHeHIRhkBmpGVrje354XE W7YiQcWGCso8FiY2SqhZnpB41k rOehQ47sUSCufKomiX6jtGbqbW 5cZjBcZnMyNFxxbFxwbGFpblxm NPzuytD1ZQnmfvtrTGRqMMyzX8 shCzCkVQKkeHkbXXbbl4AoTBEh CNYlCGRhWQbnA2sxvZ5napdsMJ wcLPFgiZlyy9isDgKvpGM8DA1y arHhJERlyPwegyX3bbXpwCdmmS 7uiT7ktHesxO3bfTBqgVP2jjhg IGluIHNpdHUgaHlicmlkaXphdG sxciljvA1cEHR8jEArQQQ4gNSw VERfNDGgDZVfjT12gm1mlUBitc OcQ3RkN9BfhNCaqNtpLhsomSAt qPSjKw7rxUUiSK4tFPLznUZxN6 UnUY8pRKIqysbwVAFvWXboXCXh RZQaCuYcmcIit6RopR9kYIVkYB TcYK77ckCvhgE2qSFsVRGgldSf dGVzdHMgaXMgcmVndWxhdGVkIG BwQQMsKYCoHId9iAGhy8QkJ9ul xKWntoRbS5XsoOIdMIZMCM6mOF scw8TydQRpuROib3DpQIPiTXKl iQ8zWBDzPN1lQLJcYNnrGQNprj Khgz2lovDbTGXdSVAzD8Hwvlnd vNwznuLoSZKpjv0emwBkURX9PE RoZSBjbGluaWNhbCBsYWJvcmF0 j7LzPXGvy8VdN0XgcBTeIBMupV NhANW1h0GxiU2nHSljaYDdNMIw AR8rxJBpXPMtROAmQCOaLBBaRf pioGeqFOLSJCZeu1VpZX0fPFEh nHftTJHqkP4sj9WjIMEjq66tAG ZEQSkuIFRoZSBGREEgaGFzIGRl dGVybWluZWQgdGhhdCBzdWNoIG SlCHEgEP1mRJQojzWnnRPqh1Nv tIUgzfAdb6JnnbLiCGOzXSJ5Bw YjeAFpIJMamgDZmUcvaL3woJ0u o2BxgG8nYOgdikIwgKNoTj2jeZ RfMF5tGMQpelSgEthaVAGfIcNt XYTsLCDew2E5UG8bAMAxtx2acl objSZoaH3qqFDwpvJeBP5uFQ5f A8D2uXVjIPOuczAvr3jxASa6gJ NbIEWztLQqkVJqAemiWWN0FLGx SLC1ggVfseDjGOYgoXkwcPK8dQ ElNUPaFGWxDIHtQM54G7Pki6Tz N8lnBF72ZYVzZFFqRVTmtxYke8 bpYAXcx7lkSLNyjEEkA6UgGCDa lDTjgrduAjQrOFJ6PCCpCYN5jK KoBCHdO4QmpWCnrGAfsQ19ND2f hPP0XD7zGRE1DDndoF2aDvTZpJ 70so7szBS6g1EaKY6uX6JtYASj u1K2zfJnZNLaJS6txBGmVODrKP ZhbGlkYXRlZCBvbiBkZWNhbGNp BjftSYW5qOKqkFYuRrUYHPE2zO DgGMShr0VsSIOiZZAhvyWztdVe UWAhOBM4hNBqGHRtbXLye80cB8 o0JM3xwTtiDWCclLLhRUOdl1Ph kZQjwYt4aGMpRwBkFWevXQNbNL wtjWy0fOL9IR2nAMEeJ6JdA5gf jTHhZJIeSFOgvCVaft4fiPAzaX == [facility] Gross Description t7buiBPmKGXzuDMQFZZ5 MDNcYW 2gjTjazPs4zJnmDHHpcuO8dYLl EVvfh4bsLZR2z9ookkCZFfagIR MeGX0rZSmmGWIsFQ0pHaVeJLXz ZmYxXHBhcGVydzEyMjQwXHBhcG HjnUG4NJBtMJ4yxjhgMLrdFNer GSBqkaM8LQErcGVnU3MiIPJhBX 6qlynrTAS4VKHZJljcRo3ifMGz bCANCntcZjFcZmNoYXJzZXQwXG Exz6bgofPVygnzcAf7RDx0TPYf ITIqrHBcv7V3VUsso5gmz3TzW3 Ucm7OwOEe7cQ5WYhvyX95vg1Y8 Sgt2YEDjYLs1BWzxHEWqQIYtSe m5JHl3D9qyVGCwRWdfSBYeTHlg lKImFMj7CHcul4ZkyVDgASz6XB urJFCiY3XqE6XjNBclDyKnOKad SKQwRZPtBWjqTZCcT5XFLYYcMH EzMmO9CTAhLCo0AXvzPtRMOTH9 Ghd6PVI7CDk2VCPtYU4tMAxpfL WtNRnqOpvtVYpqI579EVyrMNAn A7MhC2LxSDwkZsMvMGboZJQrLS PgPDcsNAIcI8GBYWJwAWEsNpD5 XQFoCRb6YLzmO9IUVNSvNAMyNG LpOiI9FcP1PAf7TFKXEg1rMwfo BlLnXFr9FHB6MBE4IBihrtpzDR y4OZZkJAsbufWmLJdvPjlcBMqh D57yaLKhDFRDVsjbzESfhwkaiQ ljTmVzdERvYzEgDQpcbHRycGFy HH8NTCb8ybJwOPSvBXzdlbPtUN GuCJULeGQ1ngYpZIFescr8oZnm LptjyXS4UKYjEISaUKfaKIJkRR a1PJWrkNvvESXgz7IgZ0L8YFWt MGsxa4izKQXnHOuna5XbXQaHCZ JEAX2NEL2onNQ3OPgZKSXKB4hU ePXtEYUnY1qlzJD0y6zipAYxn5 n0WSaoMOQ4oKGiy7ZieWprBlkl zSH6XHziUysslK6ehAJHBEEJBo rGNlwxhjHwCN0TSRHUXD9TsKZk URYdV8wrgRS3m0rtkYOoy8x8XE dnKNU1xTbhrARtadhcpDOujHxe czIwICBccHJvdGVjdHtcZmllbG M5WLwxKvfoaM0zoDDXHCKADylL CtffpcCbDK3HTLDXJoKQJJ25RM L2QXK7dES1Nk85DJOgYCImqWBi CPsxR780dYHydA73v7kziPPsLI upHzwbuOJiaqB9HOoSYMWOXBrT VtJjQF9eLGeXC9EUMmE0OQG2TB X7oZA5Ve77WKZmASTuqTAoLHph K984ISMpRZmcDXk7quHlQHOuVh ExKVZgxCxkXIMzI8TuowCeBBtj rm24QOH3c2pdsHSsVWdeDrcpuW OyxbB7GJdNAUDOZEjGGyViZV0a CWsKO1WHDCuCZiecRJnoUvC6R8 ungRwrHxcmahIssYZyJhYXzL5n jvSruZvcMqioqBP4BLhbPuzviJ 7ujAKGVPCVUvyZPzeztwNvHO5Y YVIROU5DdEJgLYPpVAjbrDA7v3 qfaGFts4c8AKybGES6nKeufHQc fizwrKKjaIslslOlWK0yVFPrvj ANClxiXGNmMiBNYXRlcmlhbHMg QHVyzBVoOBX8TSVxJSKkZDLdJY WoyK2LwaOrIPLaRPHnBDWrqYqz FtswL2ciuxqqgTXaSP9MBQNeyc ANClxmMlxmczIyXHBhciANClxz XDOvBMTebOYDg7RpQKNRJsx0UJ TFMRQLTObFEA5EDIMBVCSVYG4L NDlFRaTvTVceNtB7FZ3pMdEbDE RpGYylENAsNAA0RUV8oBN3XWXV XVYPYInTE9VjLYHERTYFNCWcCT 6XCZmKEOIEUXWNW88VPZXQKLVV W3IYZ4oNARxSRTCGEXGVU85DII AGXLMZG1GBUILDRCYIAYbOZXEF Sa1JCVEDKABHOY1WWFyZOqBlKG jYL08qO1oRYEZOXqTWW3TRQcNS RcMiBZSrM3i0Wdv4Ob2DTDoERf WOS8gTLlkdNZnhJxLakKGgq6V7 wG6kd1a7XYVglXG9gSCnLfZjQL VeDZo4VCFAQFZUHZ6VEVBAK67A LXODYEANO0YZATRGPpBVHVKFZ3 6OUQBVDOIWK4QOH1fWUOPNEtAH GXRCN99AKNBVGJMIW6GRFGNDSK QUBgBHTbQNJR1LOIADYVRDMP5N MImFCkTmLJPLO9GUBoMDP4ugFY MEGNDRQXSmTD6TJIpspfTeGZIb L37bs5QTn2Pbe8onhBucz3RsnZ WgMK29IGMrjPDhOJV9GJ3hbHtd YXIgDQpccGFyZCANClxwbGFpbi ANCn0= [facility] Pathology report final diagnosis Narrative y3nckUTmDFEhmVDcDXykHSsrqj OiKLKgxVRpZ8TzjrzoGAyaPF0g QV0ulZubtTTaoVViOHLeBuYke6 jmr311pPRbk1xoLHDHRBhvQDXM LMa5tIcuP78bp9F6UkrsU1kmCR T4CAbjxcInkkf5OZVnwFV2LHd9 XHBhcGVydzEyMjQwXHBhcGVyaD K4ZCZpUT6rkwcjMSkxNWulDHWf wfL5BSCixZEnY2CjMOOtTA1ucp icCSN5DJaoJJTuMGX2MzQgUUPq d6Fqhio6JbQmpZVqFSjntNAhkq xmczIwXGNmMSBBICAtIFBsZXVy XThoM0Y7mUC0JGAPqRprhCFwJS AhIMdaFyu2dEHsARJ6rX8xq0p0 TtlfPsMcISUlwNWxKX7MYI1QHZ lHTkFOVCBDRUxMUyBJREVOVElG UDGNFuazAWDvVW6cdZRquRD6mN 1gZWQpXOPiqcYrCGidBGE7 [facility] Interpretation and review of laboratory results Abnormal [facility] Performed by: [facility], [address] [place] [address], [place] [address] CLIA ID: [id number] [facility] Interpretation and review of laboratory results Abnormal [facility] Performed by: [facility], [address] [place] [address] [place] [address] CLIA ID: [id number] [facility] Interpretation and review of laboratory results Abnormal [facility] Performed by: [facility], [address] [place] [address] [place] [address] CLIA ID: [id number] [facility] Interpretation and review of laboratory results Abnormal [facility] Performed by: [facility], [address] [place] [address] [place] [address] CLIA ID: [id number] [facility] Radiology Study observation (narrative) [facility] Radiology Study observation (narrative) [facility] Radiology Study observation (narrative) [facility] Radiology Study observation (narrative) [facility] Radiology Study observation (narrative) [facility] Radiology Study observation (narrative) [facility] No Panel InformationOrdered By: Marti Vann on 01-28-2024 Case Report Non-Gynecologic Cyto logy Case: [id number] Authorizing Provider: Arun Lancaster MD Collected: 01/24/2024 1346 Ordering Location: [facility] Cardiac Post Received: 01/24/2024 1532 Intervention Progressive Care Unit CPI PCU 4W Pathologist: Marti Vann MD PhD Specimen: Pleural Cavity, Left [facility] Work Phone: Case Screening Location [facility], [address] [place] [address] [place] [address]; CLIA: [id number]; Joint Commission: HCO [id number]; CAP: [id number] [facility] Work Phone: Disclaimer [id number] MDAwXG Kbq0fuNYTglQWzUwZnTtYoDmYy AkbeqDYoZHSdXsGkf5qmn528wC Nbx2rjODHeMpX7iUBkLYSpH40a EAFZX720HXIfSKkse0som4MsAF XgqWZnn9E4GBSHCUydOIADDVb0 rKgfI82vz5Y1DpmmN1nvOZLqUY IjH9BgXT6mTDSbEsa2AHP6CAJ1 SFGvFLYaH8FmIC3fJYSdnIVbAG q9u8ollMirMXHlGSC9a4uoDOjr yuRkQC1mfx6asLr7i0xfyoHwAF RbKCXtbEAMXWFsH0QneEhrWk3b xEr8aXkgLywjRAC3Pxk8XU0mfa 27jpb5zAcnEQMuufpoGtN8JEbl CXLrugdhVWv5OTgnDZPvcSJ3DM SrpRVnJ7GiKACjFI2luau3NLJ6 XVzvXRNzYwR9KNJijVTnVBRphX arKEaea676NDW4JcFwZS7hF3Ve x0S7nE3xlDZpLOTqfZPcWaYnES Rigb3gsAKsAQmym5MnRCP9gnW8 qCXlzEXwAZPwBC12Uwpoi7RmHc llRKD5XSIafdVpe6Hhz1hfPjNv bfLrQ6lsQ4LyOXDmUYIrUJOrQe QfqrDke9Rbu3VhdFNizNc4m2gy HPBnEBHciNvmm0rdLVY2MXGuW1 Z2yCTgz2jkHQeuIQDotOF9gaB4 RKOavSHaM6XzkM6pWJZaDE4ujg y3n7ycEKB1XOtkCTEsTkO1bjH3 TGXljJMuHSQclUvoSOtft735QD F3RkYbUIXcp3QsD0TwcFvrI19d iXaeV97aPOYprRrapV4sePabvL 5cZjBcZnMyNFxxbFxwbGFpblxm XGbzvxC4YSthvarqPGHbTRynO7 ueZwOtBIEmqAbzXMeqt1LxQOIh TYJsVDHeMFlkJ9ifnG3ahpvwRB ruQPJwlWcsl2mrYjOakWI5WP8u epXqRGJtfWtffqF4taMspIwdhP 2joW4gsDqvhN8jfOBbsPV6yrpw IGluIHNpdHUgaHlicmlkaXphdG twzhdoyF8jPRR8oGHvJWT6iHMe ONHfDAMzPOKiuC81bc0icKKbru LkT8GwY4SbmVBafLxoLfuvbDYq mIYsBj3slLEdJR8lTCHanXRhX4 OxLF8zABPiiaebOVSqTTcpNHKy XKOnFkIrspKqc9OasC5ePKOnBP ExRC94hwRjarS6jQOaKHIpiaDa dGVzdHMgaXMgcmVndWxhdGVkIG RcYDNoDWCrFEs4lEPba2GfO7ov yPJldcDzZ0KapWZxCIANHK8uGR yug4QbqFNhkXAbm5ErDQDkTZJw cR1qKYZwBN8eMQKiESebJJKbke Opsf8tbzCfLVTsYREiJ9Rqzmqf cBktadHrOJTcuk4qiqRaJOS5ZS RoZSBjbGluaWNhbCBsYWJvcmF0 s6VlANGvy0WbJ1NdwKPuGKLmnN LfYIN9d6QduR1sMYjxlJNbXYBa GS4kaZXhTHJiKQCuXPQnAOOqMk xgeDsbHCFLKDSra9CsBQ9vBQOc nXwpNBOnrA6gp2JgVSEvz82gSH ZEQSkuIFRoZSBGREEgaGFzIGRl dGVybWluZWQgdGhhdCBzdWNoIG UyNRBeSF8pUGKxjyKrdAGnl1Lg jBTaclZft9DfagWhTBHrAAI7Hh JtpOViMNFgcsQPbBfnwL8axO6n j1EsbC8dADmyerVkoOCxWr4vaT OhHL2hQDNmqcCzKkpzLMZiAmIf HVGpMTHlk4C4NV6zVGFkvj8irs dfuMUdfM4pnWLbgaKcYM3eJN5m N0V9mFWmYBQtxfVwx7ijWNx5tU WvIAZdxLXfvKYlRaymRYQ5UYDr ORL4jzLaysLsSTEvpVexiSN0qC KiWFBjXHWyCXRrHB05F3Rap4Bh M2mnBY41XNEyZJTfMFLjhfQby7 laKCRvv3lkJMTrnBUqD5JyHDRx iYUahdunKyNnAFH6IHMuIGO6lS McFKQvB9PdvPIakONllC41JK2d iPF9WI0lCXO2QOvrrF1jXxBDxZ 12ix7ovJZ2h9MaZN6xF4SiLYZa f8X5wrUqIEJwHG1abCVeBULjCM ZhbGlkYXRlZCBvbiBkZWNhbGNp BnedRSE5yKInyUQvYrCYNSG0cJ MoWJFwf0PoGWVzZEBxfrPtboFd AITxDBI8zFJlVHGzmTPhr62qJ5 r6CE5jeMxgUBVgcSMqVRPet2Sp yUOpuIl0cVIzXjQkAKeeDYKfIP fxhOn1jDD9KN4hWYPcZ8JeB7gl mWXeIMFyVRNhwMFxny4ngDLvkU == [facility] Work Phone: Gross Description g3bxaMAxOCDjqFZLJSC4 MDNcYW 3hxAbjoLw7tEcaRWWbloO8hGOi GYlmy4ywTKN9j8dxshWQHarkRX SsXY4sUVjaJVUoVI9dDoMvSKFe ZmYxXHBhcGVydzEyMjQwXHBhcG QneBD4XECkWL2inybeERkgKJmd CQKsebH4GZJmsOSmQ6JsKABvWR 3gvkhjDGE6SLWETjacTk9apRQt bCANCntcZjFcZmNoYXJzZXQwXG Rkb6xnhlGQxbbppRe1URp7OQEl LALhgMCqf3Z8BIfgy3hyu8EhP0 Pnt0OwKTm3lY4ODiodT87xm1T1 Qjj8WJQbCFm4KJxyVMJiEVKyYi v3AZh4Y4mqPWWhVYkbCUCiYMvj jSIlCLr7CPavf4XzfQXoQZa0XC tvSITbC3DrM7UcNRmtNmUeWXhp XUJhSTRjGQlaPKAmT2UNKFOaZD YkJFZuTTGoTJr8DFnmLmRUKGZ2 Cbs2DhZ0QPg2UKXjSO8kFSuqwR RdLJxtJqugMEltR413TLebFOLv V4NgU0XnXIjpWpRoNSsiEEXuPQ QyGOkjLDCjK5YHHTOxRHQiKUBr TJNhPTt7VWlcE2RABUFiXJCpEC j3NQE9YcU9YEb1UARMJq2sVvjq EJI6ZWDiVUE8YZP6NXcjpesqOF a7VCLmNTbprpCaMKcvCvhpTTwn W25xqCHkAGAJQjknvARlrtnzyT ljTmVzdERvYzEgDQpcbHRycGFy MO3URXd4qkWjIFQyGLotryEuUK PsBLXTyPV9iaCzDHSazqb4pCnq OEMtzUpgL5TuGNUcSOKmsjROEo IbLRIemFxaCGHkw5YdS7C1LIOw DQvnq6ynOSZiRFlgm2IhQZlFLN CVVV7NUQ7adNF8FFhNZPEFA5oM sJDzKKDrJ0rvgXX2c5dkoSTna2 d3GZmrEAR9qSYkc43jpCrbAbbc kTB3BJbvNnbfxM3txNIMISVKMm nJObxtmyRzNK3TNDDOZY1YmCUq AQPmI7wepFE3m9rylGOrg4d2HU xlSSH2fNbruFHgwqumpLHijJzt czIwICBccHJvdGVjdHtcZmllbG R8LNiaTeaeuL1urQKVCTMEGowA BdblzlLhKF5JRSANVfBLOI63PE W2NZK3rMT5Px82KNKaBYLcoLEn GAtvO756wpSga2acoQBrELwfBf pgjLZotlG3CNiWOOIZBMjTJoVv MF5qZCkOH1KLWvZ9OGF0RIE0uW Z5Qo29NMOnBXAxyOLfMJdrY253 ZADzJEqzKEs7ahVmMUQyIxWcDZ NixWmlHZLuG0SzrdFcBNwupv02 MGW6z3aqfAVlULptIgengPSpra E0FPjKWJBFLWxRJxAwTI7lHTcW M2LCSGwCDqanWTdvDyS0J5rluO rrWgiubyZboEOdPbSQqQ1pjgMj yBrlUdatwPC1ZSvxRtertG0nmM WKCXVJPxbUNrstfzGtTG0OPSCE GY5QnTFfETPmIJaecRB6x8mqbT Qyw2r4LGtrRZI9kNacyQTrvmzk sGUjuIfiigLcNF4mTREeccDAYu xiXGNmMiBNYXRlcmlhbHMgUHJl fUMrEJB0OWSwBYNxMDEpGVCpsL 5QcmVwIGFuZCAxIENlbGwgQmxv F1sfcdpefWWdSI6RDYVwooPFEp xmMlxmczIyXHBhciANClxzYTMw LGLmuGIXc5EeYFVIUjh2LIUTTG BLEYeHTP3XJGJUWXAEFE6XWPsX McDqDKvcUbT5SO1aDyNzRQPaUO zqCRauFCH9RJD1uHQ0OKGJZZBZ XLfOA0UxJIJCQQQKTYQvJV5VDF gZLQXXRXQJK11OBBPALLALL8OB M0yASAaCGFQSZFCFY73NAUZYXH UYB1KZGRMZACIFAYfDKZLFYe8D RADNRPYXLF0AOQaFReRhCJtFC6 6pS9gLBZXDVwYOL3ZMRgMIKrRm GXYhE1t9Vbf9Ub6RZQiJFlWHA6 xPHoztRMbxYoDmiTRzr1S1qA5x w2g8NZXecZF3fEUdEfViGYLcRL j4WBXHHRPRRG7PRQENV54YKUOB MUDPD4RVKPLBMeXVOLSCL00FNI BORDHGJ9VRM1hBVDIYXcTIOUBG H80PUGEEUSXDE4IGNYIAILKWQe SIJyUZYC3LJDRQETSYFW5FRNsQ SaSzOBGGM1IKEsYTD3kcPLDTKR AFQNItAN6NMGkfmoNkJGHdQ48n m1OVe7Ihe2nmeIkos6FbgYZjJS 70HSNmhGOeFHL1LJ4qrEbkDBHx DQpccGFyZCANClxwbGFpbiANCn 0= [email or web address] Work Phone: Pathology report final diagnosis Narrative j4fzgJBsAAKvrLMpYWgtDAlqtu FtSAPbrGPzV8MwgfmnFLshPD3l ZR8ibOugpEUquNOfDSMqLjOss8 yzf813rGFfx1toLEGUZLjdFFJR UYf0fPirY26iq9F6FtcuJ5fnZI U5FVxtncOjwim6CWWgjTS9VTt1 XHBhcGVydzEyMjQwXHBhcGVyaD B4DPEjRG4ygvauPOdeGZymDHVl buC8FRHtjZTkC2EcDXYfBU1wel uxPCH2DAmuYBMmQHC1NfTcWBQv s8Qtgas7ZdFkoJRwJCosdGZmpe xmczIwXGNmMSBBICAtIFBsZXVy MPnqJ6K1qOU2DZVERYU2BY4fLk 6phWDPgLMxIYmvX8o1r0hwS4h1 XESyAZYdGIxhSGSiGo8uOCVBCR bFKM1KMKFGRLwRAPjWBE8TLZKY RUQuXHBhclxwYXJkXHBhcn0= [email or web address] Work Phone: [email or web address] Work Phone: CBC panel Auto (Bld)on 01-26 Erythrocyte distribution width (RBC) [Ratio] 16.1 % High 11.5 - 15.0 % [facility] Hematocrit (Bld) [Volume fraction] 23.4 % Low 40.0 - 52.0 % [facility] Hemoglobin (Bld) [Mass/Vol] 7.2 g/dL Low 13.0 - 18.0 g/dL [facility] Interpretation and review of laboratory results Abnormal [facility] MCH (RBC) [Entitic mass] 28.7 pg 26.0 - 34.0 pg [facility] MCHC (RBC) [Mass/Vol] 30.8 % 30.5 - 36.0 % [facility] MCV (RBC) [Entitic vol] 93.2 fL 77.0 - 99.0 fL [facility] Platelet mean volume (Bld) [Entitic vol] 9.8 fL 9.0 - 12.7 fL [facility] Platelets (Bld) [#/Vol] 253 10*3/uL 140 - 440 10*3/uL [facility] RBC (Bld) [#/Vol] 2.51 10*6/uL Low 4.40 - 5.90 10*6/uL [facility] WBC (Bld) [#/Vol] 9.7 10*3/uL 3.6 - 10.7 10*3/uL [facility] Comprehensive metabolic 1998 panelOrdered By: Kelli Cobb on 01-27-2024 Albumin [Mass/Vol] 3.0 g/dL Low 3.5 - 5.0 g/dL [facility] ALP [Catalytic activity/Vol] 85 U/L 38 - 126 U/L [facility] ALT [Catalytic activity/Vol] 63 U/L High 0 - 49 U/L [facility] Anion gap [Moles/Vol] 9 mmol/L 3 - 13 mmol/L [facility] AST [Catalytic activity/Vol] 31 U/L 15 - 46 U/L [facility] Bilirubin [Mass/Vol] 0.3 mg/dL 0.2 - 1 .3 mg/dL [facility] Calcium [Mass/Vol] 8.3 mg/dL Low 8.4 - 10. 4 mg/dL [facility] Chloride [Moles/Vol] 97 mmol/L Low 98 - 10 7 mmol/L [facility] CO2 [Moles/Vol] 24 mmol/L 22 - 30 mmol/L [facility] Creatinine [Mass/Vol] 7.17 mg/dL High 0.66 - 1.25 mg/dL [facility] GFR/1.73 sq M.predicted MDRD (S/P/Bld) [Vol rate/Area] 7.3 mL/min/{1.73_m2} Low - PINF [facility] Comment on above: Calculation based on the Chronic Kidney Disease Epidemiology Collaboration (CKD-EPI) equation refit without adjustment for race Glucose [Mass/Vol] 529 mg/dL Critically high 70 - 1 00 mg/dL [facility] Interpretation and review of laboratory results Abnormal [facility] Potassium [Moles/Vol] 5.4 mmol/L High 3.5 - 5.1 mmol/L [facility] Protein [Mass/Vol] 5.9 g/dL Low 6.3 - 8.2 g/dL [facility] Sodium [Moles/Vol] 131 mmol/L Low 135 - 145 mmol/L [facility] Urea nitrogen [Mass/Vol] 59 mg/dL High 9 - 20 mg/dL [facility] Comprehensive metabolic 1998 panelon 01-27-2024 Albumin [Mass/Vol] 3.1 g/dL Low 3.5 - 5.0 g/dL [facility] ALP [Catalytic activity/Vol] 69 U/L 38 - 126 U/L [facility] ALT [Catalytic activity/Vol] 70 U/L High 0 - 49 U/L [facility] Anion gap [Moles/Vol] 6 mmol/L 3 - 13 mmol/L [facility] AST [Catalytic activity/Vol] 32 U/L 15 - 46 U/L [facility] Bilirubin [Mass/Vol] 0.4 mg/dL 0.2 - 1 .3 mg/dL [facility] Calcium [Mass/Vol] 8.3 mg/dL Low 8.4 - 10. 4 mg/dL [facility] Chloride [Moles/Vol] 100 mmol/L 98 - 10 7 mmol/L [facility] CO2 [Moles/Vol] 28 mmol/L 22 - 30 mmol/L [facility] Creatinine [Mass/Vol] 5.82 mg/dL High 0.66 - 1.25 mg/dL [facility] GFR/1.73 sq M.predicted MDRD (S/P/Bld) [Vol rate/Area] 9.4 mL/min/{1.73_m2} Low - PINF [facility] Comment on above: Calculation based on the Chronic Kidney Disease Epidemiology Collaboration (CKD-EPI) equation refit without adjustment for race Glucose [Mass/Vol] 297 mg/dL High 70 - 100 mg/dL [facility] Interpretation and review of laboratory results Abnormal [facility] Potassium [Moles/Vol] 5.1 mmol/L 3.5 - 5.1 mmol/L [facility] Protein [Mass/Vol] 6.0 g/dL Low 6.3 - 8.2 g/dL [facility] Sodium [Moles/Vol] 134 mmol/L Low 135 - 145 mmol/L [facility] Urea nitrogen [Mass/Vol] 44 mg/dL High 9 - 20 mg/dL [facility] - Chemistry and C hemistry - challengeon 01-27-2024 Glucose [Mass/Vol] 448 mg/dL High 70 - 100 mg/dL [facility] Glucose [Mass/Vol] mg/dL High 70 - 100 mg/dL [facility] Comment on above: Caregiver Notified; Glucose [Mass/Vol] mg/dL High 70 - 100 mg/dL [facility] Comment on above: Result Not Confirmed ; Glucose [Mass/Vol] mg/dL High 70 - 100 mg/dL [facility] Comment on above: Caregiver Notified; Result Not Confirmed ; No Panel Informationon 01-26 Interpretation and review of laboratory results Abnormal [facility] Performed by: [facility], [address] [place] [id number] CLIA ID: [id number] [facility] Interpretation and review of laboratory results Abnormal [facility] Performed by: [facility], [address] [place] [id number] CLIA ID: [id number] [facility] Interpretation and review of laboratory results Abnormal [facility] Performed by: [facility], [address] [place] [id number] CLIA ID: [id number] [facility] Interpretation and review of laboratory results Abnormal [facility] Performed by: [facility], [address] [place] [id number] CLIA ID: [id number] [facility] Radiology Study observation (narrative) [facility] Radiology Study observation (narrative) [facility] Radiology Study observation (narrative) [facility] Radiology Study observation (narrative) [facility] Radiology Study observation (narrative) [facility] CBC panel Auto (Bld)on 01-25 Erythrocyte distribution width (RBC) [Ratio] 16.4 % High 11.5 - 15.0 % [facility] Hematocrit (Bld) [Volume fraction] 23.1 % Low 40.0 - 52.0 % [facility] Hemoglobin (Bld) [Mass/Vol] 7.1 g/dL Low 13.0 - 18.0 g/dL [facility] Interpretation and review of laboratory results Abnormal [facility] MCH (RBC) [Entitic mass] 28.6 pg 26.0 - 34.0 pg [facility] MCHC (RBC) [Mass/Vol] 30.7 % 30.5 - 36.0 % [facility] MCV (RBC) [Entitic vol] 93.1 fL 77.0 - 99.0 fL [facility] Platelet mean volume (Bld) [Entitic vol] 9.8 fL 9.0 - 12.7 fL [facility] Platelets (Bld) [#/Vol] 251 10*3/uL 140 - 440 10*3/uL [facility] RBC (Bld) [#/Vol] 2.48 10*6/uL Low 4.40 - 5.90 10*6/uL [facility] WBC (Bld) [#/Vol] 10.8 10*3/uL High 3.6 - 10.7 10*3/uL [facility] Comprehensive metabolic 1998 panelOrdered By: Doug Jasmine on 01-26-2024 Albumin [Mass/Vol] 3.1 g/dL Low 3.5 - 5.0 g/dL [facility] ALP [Catalytic activity/Vol] 63 U/L 38 - 126 U/L [facility] ALT [Catalytic activity/Vol] 90 U/L High 0 - 49 U/L [facility] Anion gap [Moles/Vol] 5 mmol/L 3 - 13 mmol/L [facility] AST [Catalytic activity/Vol] 49 U/L High 15 - 46 U/L [facility] Bilirubin [Mass/Vol] 0.3 mg/dL 0.2 - 1 .3 mg/dL [facility] Calcium [Mass/Vol] 8.3 mg/dL Low 8.4 - 10. 4 mg/dL [facility] Chloride [Moles/Vol] 99 mmol/L 98 - 10 7 mmol/L [facility] CO2 [Moles/Vol] 30 mmol/L 22 - 30 mmol/L [facility] Creatinine [Mass/Vol] 3.58 mg/dL High 0.66 - 1.25 mg/dL [facility] GFR/1.73 sq M.predicted MDRD (S/P/Bld) [Vol rate/Area] 16.9 mL/min/{1.73_m2} Low - PINF [facility] Comment on above: Calculation based on the Chronic Kidney Disease Epidemiology Collaboration (CKD-EPI) equation refit without adjustment for race Glucose [Mass/Vol] 185 mg/dL High 70 - 100 mg/dL [facility] Interpretation and review of laboratory results Abnormal [facility] Potassium [Moles/Vol] 4.4 mmol/L 3.5 - 5.1 mmol/L [facility] Protein [Mass/Vol] 6.0 g/dL Low 6.3 - 8.2 g/dL [facility] Sodium [Moles/Vol] 134 mmol/L Low 135 - 145 mmol/L [facility] Urea nitrogen [Mass/Vol] 28 mg/dL High 9 - 20 mg/dL [facility] - Chemistry and C hemistry - challengeon 01-26-2024 Glucose [Mass/Vol] 175 mg/dL High 70 - 100 mg/dL [facility] Glucose [Mass/Vol] 166 mg/dL High 70 - 100 mg/dL [facility] No Panel Informationon 01-25 Interpretation and review of laboratory results Abnormal [facility] Performed by: [facility], [address] [place] [id number] CLIA ID: [id number] [facility] Interpretation and review of laboratory results Abnormal [facility] Performed by: [facility], [address] [place] [id number] CLIA ID: [id number] [facility] Radiology Study observation (narrative) [facility] Radiology Study observation (narrative) [facility] CBC panel Auto (Bld)Ordered By: Jerman Azevedo on 01-25-2024 Erythrocyte distribution width (RBC) [Ratio] 16.1 % High 11.5 - 15.0 % [facility] Hematocrit (Bld) [Volume fraction] 23.1 % Low 40.0 - 52.0 % [facility] Hemoglobin (Bld) [Mass/Vol] 7.0 g/dL Low 13.0 - 18.0 g/dL [facility] Interpretation and review of laboratory results Abnormal [facility] MCH (RBC) [Entitic mass] 28.3 pg 26.0 - 34.0 pg [facility] MCHC (RBC) [Mass/Vol] 30.3 % Low 30.5 - 36.0 % [facility] MCV (RBC) [Entitic vol] 93.5 fL 77.0 - 99.0 fL [facility] Platelet mean volume (Bld) [Entitic vol] 10.1 fL 9.0 - 12.7 fL [facility] Platelets (Bld) [#/Vol] 227 10*3/uL 140 - 440 10*3/uL [facility] RBC (Bld) [#/Vol] 2.47 10*6/uL Low 4.40 - 5.90 10*6/uL [facility] WBC (Bld) [#/Vol] 13.0 10*3/uL High 3.6 - 10.7 10*3/uL [facility] Comprehensive metabolic 1998 panelon 01-25-2024 Albumin [Mass/Vol] 3.1 g/dL Low 3.5 - 5.0 g/dL [facility] ALP [Catalytic activity/Vol] 71 U/L 38 - 126 U/L [facility] ALT [Catalytic activity/Vol] 95 U/L High 0 - 49 U/L [facility] Anion gap [Moles/Vol] 7 mmol/L 3 - 13 mmol/L [facility] AST [Catalytic activity/Vol] 69 U/L High 15 - 46 U/L [facility] Bilirubin [Mass/Vol] 0.3 mg/dL 0.2 - 1 .3 mg/dL [facility] Calcium [Mass/Vol] 8.5 mg/dL 8.4 - 10. 4 mg/dL [facility] Chloride [Moles/Vol] 98 mmol/L 98 - 10 7 mmol/L [facility] CO2 [Moles/Vol] 26 mmol/L 22 - 30 mmol/L [facility] Creatinine [Mass/Vol] 6.04 mg/dL High 0.66 - 1.25 mg/dL [facility] GFR/1.73 sq M.predicted MDRD (S/P/Bld) [Vol rate/Area] 9.0 mL/min/{1.73_m2} Low - PINF [facility] Comment on above: Calculation based on the Chronic Kidney Disease Epidemiology Collaboration (CKD-EPI) equation refit without adjustment for race Glucose [Mass/Vol] 300 mg/dL High 70 - 100 mg/dL [facility] Interpretation and review of laboratory results Abnormal [facility] Potassium [Moles/Vol] 5.2 mmol/L High 3.5 - 5.1 mmol/L [facility] Protein [Mass/Vol] 6.0 g/dL Low 6.3 - 8.2 g/dL [facility] Sodium [Moles/Vol] 132 mmol/L Low 135 - 145 mmol/L [facility] Urea nitrogen [Mass/Vol] 43 mg/dL High 9 - 20 mg/dL [facility] Laboratoryon 01-25-2024 Fluid Nom (Body fld) Pleural Fluid S [facility] Comment on above: Right Fluid Nom (Body fld) Pleural Fluid [facility] Comment on above: Right LaboratoryOrdered By: Cherelle Flores on 01-25-2024 Fluid Nom (Body fld) Pleural Fluid S [facility] Laboratory - Chemistry and C hemistry - challengeon 01-25-2024 Glucose [Mass/Vol] 238 mg/dL High 70 - 100 mg/dL [facility] Glucose [Mass/Vol] 171 mg/dL High 70 - 100 mg/dL [facility] Glucose (Body fld) [Mass/Vol] 246 mg/dL No Range [facility] LDH (Body fld) [Catalytic activity/Vol] 78 U/L No Range [facility] Protein (Body fld) [Mass/Vol] 2.7 g/dL No Range [facility] pH (Body fld) 7.583 [pH] [facility] Glucose [Mass/Vol] 242 mg/dL High 70 - 100 mg/dL [facility] Laboratory - Hematology and Cell countsOrdered By: Mary Lou Richard on 01-25-2024 Cells Counted Total (Body fld) [#] 100 [facility] Lymphocytes/100 WBC (Bld) 24 % [facility] Macrophages/100 WBC Manual cnt (Body fld) 45 % [facility] Neutrophils/100 WBC (Body fld) 31 % [facility] Laboratory - Hematology and Cell countsOrdered By: Cherelle Flores on 01-25-2024 RBC Auto (Body fld) [#/Vol] High 0.000 x10*6/ul [facility] WBC (Body fld) [#/Vol] 0.270 10*3/uL High NINF [facility] No Panel Informationon 01-24 Interpretation and review of laboratory results Abnormal [facility] Performed by: [facility], [address] [place] [address] CLIA ID: [id number] [facility] Interpretation and review of laboratory results Abnormal [facility] Performed by: [facility], [address] [place] [address] CLIA ID: [id number] [facility] This test was develo ped and its performance characteristics determined by [employer]. It has not been cleared or approved by the US Food and Drug Administration. This test was performed in a CLIA certified laboratory and is intended for clinical purposes. Lactate dehydrogenase in pericardial fluids is not diagnostically useful. Contamination with RBCs will cause falsely elevated results. [facility] Right This test was developed and its performance characteristics determined by [employer]. It has not been cleared or approved by the US Food and Drug Administration. This test was performed in a CLIA certified laboratory and is intended for clinical purposes. [employer] This test was develo ped and its performance characteristics determined by [employer]. It has not been cleared or approved by the Food and Drug Administration. This test was performed in a CLIA certified laboratory and is intended for clinical purposes. [employer] This test was develo ped and its performance characteristics determined by [employer]. It has not been cleared or approved by the US Food and Drug Administration. This test was performed in a CLIA certified laboratory and is intended for clinical purposes. [employer] Successful ultrasound-guided right thoracentesis with drainage of 400 mL of clear yellow fluid. PROCEDURE SUMMARY: - Limited thoracic ultrasound - Ultrasound-guided thoracentesis - Additional procedure(s): None PROCEDURE DETAILS: Pre-procedure Consent: Informed consent for the procedure including risks, benefits and alternatives was obtained and time-out was performed prior to the procedure. Preparation: The site was prepared and draped using maximal sterile barrier technique including cutaneous antisepsis. Anesthesia/sedation None Limited thoracic ultrasound Limited thoracic ultrasound was performed using a curved transducer. A safe window for thoracentesis was identified. Moderate to large pleural effusion was seen on the side of aspiration. The contralateral side was not investigated. Thoracentesis Local anesthesia was administered. Ultrasound was used to pick a safe access site. A permanent image was stored. The pleural space was accessed and fluid return confirmed position. The fluid was drained. Catheter placed: 5F Yueh Closure The catheter was removed. A sterile bandage was applied. Post-drainage hemithorax findings: Minimal effusion Additional Details Additional description of procedure: None Equipment details: None Specimens removed: Pleural fluid Estimated blood loss (mL): Less than 10 Report Dictated on Electronically Signed By: Yesenia Nolen PA-C Electronically Signed Date/Time: 01/25/2024 12:04 PM [facility] Patient Name: JOSE ALEXANDER RD : 1945 Exam Date/Time: 01/25/2024 10:39 Procedure: US GUIDED THORACENTESIS Ordering Provider: LANCASTER MANSUR Reason For Exam: right pleural effusion PROCEDURE: Ultrasound-guided right thoracentesis Procedural Personnel Attending physician(s): Jimmy Patterson M.D. 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 Indication: Pleural effusion Additional clinical history: None Complications: No immediate complications. [facility] Yesenia Nolen PA-C - 01/25/2024 Patient Name: JOSE JOHN : 1945 Exam Date/Time: 01/25/2024 10:39 Procedure: US GUIDED THORACENTESIS Ordering Provider: LANCASTER MANSUR Reason For Exam: right pleural effusion PROCEDURE: Ultrasound-guided right thoracentesis Procedural Personnel Attending physician(s): Jimmy Patterson M.D. 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 Indication: Pleural effusion Additional clinical history: None Complications: No immediate complications. IMPRESSION: Successful ultrasound-guided right thoracentesis with drainage of 400 mL of clear yellow fluid. PROCEDURE SUMMARY: - Limited thoracic ultrasound - Ultrasound-guided thoracentesis - Additional procedure(s): None PROCEDURE DETAILS: Pre-procedure Consent: Informed consent for the procedure including risks, benefits and alternatives was obtained and time-out was performed prior to the procedure. Preparation: The site was prepared and draped using maximal sterile barrier technique including cutaneous antisepsis. Anesthesia/sedation None Limited thoracic ultrasound Limited thoracic ultrasound was performed using a curved transducer. A safe window for thoracentesis was identified. Moderate to large pleural effusion was seen on the side of aspiration. The contralateral side was not investigated. Thoracentesis Local anesthesia was administered. Ultrasound was used to pick a safe access site. A permanent image was stored. The pleural space was accessed and fluid return confirmed position. The fluid was drained. Catheter placed: 5F Yueh Closure The catheter was removed. A sterile bandage was applied. Post-drainage hemithorax findings: Minimal effusion Additional Details Additional description of procedure: None Equipment details: None Specimens removed: Pleural fluid Estimated blood loss (mL): Less than 10 Report Dictated on Electronically Signed By: Yesenia Nolen PA-C Electronically Signed Date/Time: 01/25/2024 12:04 PM EDT [facility] Radiology Study observation (narrative) [facility] Interpretation and review of laboratory results Abnormal [facility] Performed by: [facility], [address] [place] [address] CLIA ID: [id number] [facility] Radiology Study observation (narrative) [facility] Radiology Study observation (narrative) [facility] Radiology Study observation (narrative) [facility] No Panel InformationOrdered By: Mary Lou Richard on 01-25-2024 [facility] No Panel InformationOrdered By: Cherelle Flores on 01-25-2024 Interpretation and review of laboratory results Abnormal [facility] CBC panel Auto (Bld)Ordered By: Lien Echeverria on 01-24-2024 Erythrocyte distribution width (RBC) [Ratio] 16.3 % High 11.5 - 15.0 % [facility] Hematocrit (Bld) [Volume fraction] 25.3 % Low 40.0 - 52.0 % [facility] Hemoglobin (Bld) [Mass/Vol] 7.7 g/dL Low 13.0 - 18.0 g/dL [facility] Interpretation and review of laboratory results Abnormal [facility] MCH (RBC) [Entitic mass] 28.2 pg 26.0 - 34.0 pg [facility] MCHC (RBC) [Mass/Vol] 30.4 % Low 30.5 - 36.0 % [facility] MCV (RBC) [Entitic vol] 92.7 fL 77.0 - 99.0 fL [facility] Platelet mean volume (Bld) [Entitic vol] 10.1 fL 9.0 - 12.7 fL [facility] Platelets (Bld) [#/Vol] 229 10*3/uL 140 - 440 10*3/uL [facility] RBC (Bld) [#/Vol] 2.73 10*6/uL Low 4.40 - 5.90 10*6/uL [facility] WBC (Bld) [#/Vol] 6.9 10*3/uL 3.6 - 10.7 10*3/uL [facility] Comprehensive metabolic 1998 panelOrdered By: Kimber Gill on 01-24-2024 Albumin [Mass/Vol] 3.4 g/dL Low 3.5 - 5.0 g/dL [facility] ALP [Catalytic activity/Vol] 79 U/L 38 - 126 U/L [facility] ALT [Catalytic activity/Vol] 76 U/L High 0 - 49 U/L [facility] Anion gap [Moles/Vol] 4 mmol/L 3 - 13 mmol/L [facility] AST [Catalytic activity/Vol] 60 U/L High 15 - 46 U/L [facility] Bilirubin [Mass/Vol] 0.4 mg/dL 0.2 - 1 .3 mg/dL [facility] Calcium [Mass/Vol] 8.7 mg/dL 8.4 - 10. 4 mg/dL [facility] Chloride [Moles/Vol] 98 mmol/L 98 - 10 7 mmol/L [facility] CO2 [Moles/Vol] 31 mmol/L High 22 - 30 mmol/L [facility] Creatinine [Mass/Vol] 4.11 mg/dL High 0.66 - 1.25 mg/dL [facility] GFR/1.73 sq M.predicted MDRD (S/P/Bld) [Vol rate/Area] 14.3 mL/min/{1.73_m2} Low - PINF [facility] Comment on above: Calculation based on the Chronic Kidney Disease Epidemiology Collaboration (CKD-EPI) equation refit without adjustment for race Glucose [Mass/Vol] 209 mg/dL High 70 - 100 mg/dL [facility] Interpretation and review of laboratory results Abnormal [facility] Potassium [Moles/Vol] 5.1 mmol/L 3.5 - 5.1 mmol/L [facility] Protein [Mass/Vol] 6.6 g/dL 6.3 - 8.2 g/dL [facility] Sodium [Moles/Vol] 134 mmol/L Low 135 - 145 mmol/L [facility] Urea nitrogen [Mass/Vol] 24 mg/dL High 9 - 20 mg/dL [facility] Iron and Iron binding capaci ty panelon 01-24-2024 Interpretation and review of laboratory results Abnormal [facility] Iron [Mass/Vol] 29 ug/dL Low 49 - 181 ug/dL [facility] Iron binding capacity [Mass/Vol] 216 ug/dL Low 261 - 497 ug/dL [facility] Iron saturation [Mass fraction] 13 % Low 15 - 50 % [facility] Laboratoryon 01-24-2024 Fluid Nom (Body fld) Pleural Fluid S [facility] Fluid Nom (Body fld) Pleural Fluid S [facility] Fluid Nom (Body fld) Pleural Fluid S [facility] LaboratoryOrdered By: Meg Michaels on 01-24-2024 Fluid Nom (Body fld) Pleural Fluid S [facility] Laboratory - Chemistry and C hemistry - challengeon 01-24-2024 Glucose [Mass/Vol] 291 mg/dL High 70 - 100 mg/dL [facility] Glucose (Body fld) [Mass/Vol] 202 mg/dL No Range [facility] LDH (Body fld) [Catalytic activity/Vol] 141 U/L No Range [facility] Protein (Body fld) [Mass/Vol] 4.0 g/dL No Range [facility] pH (Body fld) [facility] Comment on above: This result was prev iously suppressed from the chart. Glucose [Mass/Vol] 221 mg/dL High 70 - 100 mg/dL [facility] Glucose [Mass/Vol] 228 mg/dL High 70 - 100 mg/dL [facility] Laboratory - Hematology and Cell countson 01-24-2024 Basophils/100 WBC (Body fld) 1 % [facility] Cells Counted Total (Body fld) [#] 100 [facility] Eosinophils/100 WBC Manual cnt (Body fld) 2 % [facility] Lymphocytes/100 WBC (Bld) 32 % [facility] Macrophages/100 WBC Manual cnt (Body fld) 37 % [facility] Mesothelial cells/100 WBC Manual cnt (Body fld) 2 % [facility] Neutrophils/100 WBC (Body fld) 26 % [facility] Laboratory - Hematology and Cell countsOrdered By: Meg Michaels on 01-24-2024 RBC Auto (Body fld) [#/Vol] 0.134 High 0.000 x10*6/ul [facility] WBC (Body fld) [#/Vol] 0.137 10*3/uL High NINF [facility] No Panel Informationon 01-23 [facility] Interpretation and review of laboratory results Abnormal [facility] Performed by: [facility], [address] [place] [address], [facility] [address] CLIA ID: [id number] [facility] This test was develo ped and its performance characteristics determined by [employer]. It has not been cleared or approved by the US Food and Drug Administration. This test was performed in a CLIA certified laboratory and is intended for clinical purposes. Lactate dehydrogenase in pericardial fluids is not diagnostically useful. Contamination with RBCs will cause falsely elevated results. [place] [email or web address] This test was develo ped and its performance characteristics determined by [employer]. It has not been cleared or approved by the US Food and Drug Administration. This test was performed in a CLIA certified laboratory and is intended for clinical purposes. [employer] This test was develo ped and its performance characteristics determined by [employer]. It has not been cleared or approved by the US Food and Drug Administration. This test was performed in a CLIA certified laboratory and is intended for clinical purposes. [place] [email or web address] This test was develo ped and its performance characteristics determined by [employer]. It has not been cleared or approved by the US Food and Drug Administration. This test was performed in a CLIA certified laboratory and is intended for clinical purposes. [email or web address] Successful ultrasound-guided left thoracentesis with drainage of 1400 mL of clear dark mara fluid. PROCEDURE SUMMARY: - Limited thoracic ultrasound - Ultrasound-guided thoracentesis - Additional procedure(s): None PROCEDURE DETAILS: Pre-procedure Consent: Informed consent for the procedure including risks, benefits and alternatives was obtained and time-out was performed prior to the procedure. Preparation: The site was prepared and draped using maximal sterile barrier technique including cutaneous antisepsis. Anesthesia/sedation None Limited thoracic ultrasound Limited thoracic ultrasound was performed using a curved transducer. A safe window for thoracentesis was identified. Moderate to large pleural effusion was seen on the side of aspiration. The contralateral side was not investigated. Thoracentesis Local anesthesia was administered. Ultrasound was used to pick a safe access site. A permanent image was stored. The pleural space was accessed and fluid return confirmed position. The fluid was drained. Catheter placed: 5F Yueh Closure The catheter was removed. A sterile bandage was applied. Post-drainage hemithorax findings: Minimal effusion Additional Details Additional description of procedure: None Equipment details: None Specimens removed: Pleural fluid Estimated blood loss (mL): Less than 10 Report Dictated on Electronically Signed By: Yesenia Sipos, PA-C Electronically Signed Date/Time: 01/24/2024 2:20 PM EDT [facility] Patient Name: JOSE ALEXANDER RD : 1945 Exam Date/Time: 01/24/2024 13:59 Procedure: US GUIDED THORACENTESIS Ordering Provider: SIMMS HARIKRISHNA Reason For Exam: Pneumonia, complication suspected, xray done PROCEDURE: Ultrasound-guided left thoracentesis Procedural Personnel Attending physician(s): Teodoro Teran M.D. 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 Indication: Pleural effusion Additional clinical history: None Complications: No immediate complications. [facility] Yesenia Nolen PA-C - 01/24/2024 Patient Name: JOSE JOHN : 1945 Exam Date/Time: 01/24/2024 13:59 Procedure: US GUIDED THORACENTESIS Ordering Provider: SIMMS HARIKRISHNA Reason For Exam: Pneumonia, complication suspected, xray done PROCEDURE: Ultrasound-guided left thoracentesis Procedural Personnel Attending physician(s): Teodoro Teran M.D. 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 Indication: Pleural effusion Additional clinical history: None Complications: No immediate complications. IMPRESSION: Successful ultrasound-guided left thoracentesis with drainage of 1400 mL of clear dark mara fluid. PROCEDURE SUMMARY: - Limited thoracic ultrasound - Ultrasound-guided thoracentesis - Additional procedure(s): None PROCEDURE DETAILS: Pre-procedure Consent: Informed consent for the procedure including risks, benefits and alternatives was obtained and time-out was performed prior to the procedure. Preparation: The site was prepared and draped using maximal sterile barrier technique including cutaneous antisepsis. Anesthesia/sedation None Limited thoracic ultrasound Limited thoracic ultrasound was performed using a curved transducer. A safe window for thoracentesis was identified. Moderate to large pleural effusion was seen on the side of aspiration. The contralateral side was not investigated. Thoracentesis Local anesthesia was administered. Ultrasound was used to pick a safe access site. A permanent image was stored. The pleural space was accessed and fluid return confirmed position. The fluid was drained. Catheter placed: 5F Yueh Closure The catheter was removed. A sterile bandage was applied. Post-drainage hemithorax findings: Minimal effusion Additional Details Additional description of procedure: None Equipment details: None Specimens removed: Pleural fluid Estimated blood loss (mL): Less than 10 Report Dictated on Electronically Signed By: Yesenia Nolen PA-C Electronically Signed Date/Time: 01/24/2024 2:20 PM EDT [facility] Radiology Study observation (narrative) [facility] Interpretation and review of laboratory results Abnormal [facility] Performed by: [facility], [address] [place] [address] CLIA ID: [id number] [facility] Interpretation and review of laboratory results Abnormal [facility] Performed by: [facility], [address] [place] [address] CLIA ID: [id number] [facility] Radiology Study observation (narrative) [facility] Radiology Study observation (narrative) [facility] Radiology Study observation (narrative) [facility] No Panel InformationOrdered By: Meg Michaels on 01-24-2024 Interpretation and review of laboratory results Abnormal [facility] No Panel InformationOrdered By: Yesenia Nolen on 01-24-2024 [email or web address] Work Phone: CTA Chest vessels WO and W c ontrast Nithin 01-23-2024 Impression:No large central PE. Effusions, infiltrates, atelectasis. Findings concerning for pneumonia. Worsening volume loss especially on the left compared to prior. Follow-up recommended.. Report Dictated on Electronically Signed By: Jorge Purdy MD Electronically Signed Date/Time: 01/23/2024 12:50 AM EDT [employer] [facility] Patient Name: JOSE ALEXANDER RD : 1945 Exam Date/Time: 01/23/2024 00:36 Procedure: CT CHEST ANGIOGRAM W AND/OR WO IV CONTRAST Ordering Provider: WILD KATHRYN Reason For Exam: Concern for PE History: Chest discomfort. Comparison: 11/23/2023 Findings: Dose reduction was employed with automated exposure control. Enhanced imaging of the chest was performed with 1 mm slices from neck to upper abdomen. 75 cc isovue 370 utilized. Additional images: 3-D imaging created and reviewed on independent platform for better detection of pathology. Airway:Grossly patent. Mediastinum and great vessels: Cardiac enlargement. Atherosclerotic calcifications. No large central PE visualized. .No convincing adenopathy. Previously seen upper/superior mediastinal paratracheal soft tissue or fluid focus not clearly visualized currently. Limited by beam hardening artifact. Respiratory motion limits evaluation of more peripheral vascular structures and parenchyma. LUNGS:Abnormal. Volume loss related to effusions which may be loculated. Infiltrate densities especially left upper lobe. Compressive atelectasis lower lobes bilaterally. Worsening volume loss especially on the left compared to prior, mostly due to increasing effusion. Spine: No convincing acute or occult process.. Upper abdomen: No convincing evidence of acute process.. Cholecystectomy. [facility] Jorge Purdy MD - 01/23/2024 [facility] Name: [facility]SE [facility] 1945 [id number] Exam Date/Time: 01/23/2024 00:36 Procedure: CT CHEST ANGIOGRAM W AND/OR WO IV CONTRAST Ordering Provider: WILD KATHRYN Reason For Exam: Concern for PE History: Chest discomfort. Comparison: 11/23/2023 Findings: Dose reduction was employed with automated exposure control. Enhanced imaging of the chest was performed with 1 mm slices from neck to upper abdomen. 75 cc isovue 370 utilized. Additional images: 3-D imaging created and reviewed on independent platform for better detection of pathology. Airway:Grossly patent. Mediastinum and great vessels: Cardiac enlargement. Atherosclerotic calcifications. No large central PE visualized. .No convincing adenopathy. Previously seen upper/superior mediastinal paratracheal soft tissue or fluid focus not clearly visualized currently. Limited by beam hardening artifact. Respiratory motion limits evaluation of more peripheral vascular structures and parenchyma. LUNGS:Abnormal. Volume loss related to effusions which may be loculated. Infiltrate densities especially left upper lobe. Compressive atelectasis lower lobes bilaterally. Worsening volume loss especially on the left compared to prior, mostly due to increasing effusion. Spine: No convincing acute or occult process.. Upper abdomen: No convincing evidence of acute process.. Cholecystectomy. IMPRESSION: Impression:No large central PE. Effusions, infiltrates, atelectasis. Findings concerning for pneumonia. Worsening volume loss especially on the left compared to prior. Follow-up recommended.. Report Dictated on Electronically Signed By: Jorge Purdy MD Electronically Signed Date/Time: 01/23/2024 12:50 AM EDT [facility] Radiology Study observation (narrative) [facility] [email or web address] CTA Chest vessels WO and W c ontrast IVOrdered By: Jorge Purdy on 01-23-2024 [email or web address] Work Phone: Ferritin [Mass/Vol]on 2023 Interpretation and review of laboratory results Abnormal [facility] [email or web address] Laboratory - Chemistry and C hemistry - challengeon 01-23-2024 Glucose [Mass/Vol] 113 mg/dL High 70 - 100 mg/dL [email or web address] Ferritin [Mass/Vol] 499 ng/mL High 18 - 464 ng/mL [facility] Glucose [Mass/Vol] 167 mg/dL High 70 - 100 mg/dL [facility] Glucose [Mass/Vol] 158 mg/dL High 70 - 100 mg/dL [facility] Troponin I.cardiac [Mass/Vol] 0.024 ng/mL [facility] - 0.034 ng/mL [facility] Troponin I.cardiac [Mass/Vol] 0.023 ng/mL [facility] - 0.[facility] ng/mL [place] [email or web address] No Panel Informationon 01-22 Interpretation and review of laboratory results Abnormal [email or web address] Performed by: [facility], [address] [place] [address] CLIA ID: [id number] [facility] [email or web address] Sinus rhythm Electronically Signed On 01-23-2024 13:01:30 EDT by Chris Mcknight CV Chris Ellis MD - 01/23/2024 IMPRESSION: Sinus rhythm Electronically Signed On 01-23-2024 13:01:30 EDT by Chris Mcknight [email or web address] [email or web address] Interpretation and review of laboratory results Abnormal [email or web address] Performed by: [employer] [facility], [address] [place] [id number] CLIA ID: [id number] [place] [facility] [email or web address] Interpretation and review of laboratory results Abnormal [email or web address] Performed by: [place] [facility], [address] [facility] [address] CLIA ID: [id number] [place] [email or web address] [email or web address] Radiology Study observation (narrative) [facility] [email or web address] Radiology Study observation (narrative) [facility] [email or web address] Radiology Study observation (narrative) [facility] [email or web address] No Panel InformationOrdered By: Chris Mcknight on 01-23-2024 P [place] 38 degrees [employer] Work Phone: OR Interval 151 ms [employer] Work Phone: [phone] QRS [place] 39 degrees [employer] Work Phone: QRSD Interval 111 ms [employer] Work Phone: QT Interval 407 ms [employer] Work Phone: QTC Interval 444 ms [employer] Work Phone: T Wave [place] 177 degrees [employer] Work Phone: [employer] Work Phone: Troponin I.cardiac [Mass/Vol ]on 01-23-2024 Interpretation and review of laboratory results Normal [email or web address] Patients with high l evels of Biotin oral intake (ie >5 mg/day) may have falsely decreased Troponin levels. [place] [facility] [email or web address] Interpretation and review of laboratory results Normal [email or web address] [email or web address] Patients with high l evels of Biotin oral intake (ie >5 mg/day) may have falsely decreased Troponin levels. [email or web address] [place] [email or web address] Vital signsOrdered By: Denilson Mcknight on 01-23-2024 Heart rate 71 /min bpm [employer] Work Phone: Basic metabolic 1998 panelon 01-22-2024 Anion gap [Moles/Vol] 9 mmol/L 3 - 13 mmol/L [email or web address] Calcium [Mass/Vol] 8.7 mg/dL 8.4 - 10. 4 mg/dL [email or web address] Chloride [Moles/Vol] 96 mmol/L Low 98 - 10 7 mmol/L [place] [email or web address] CO2 [Moles/Vol] 28 mmol/L 22 - 30 mmol/L [place] [email or web address] Creatinine [Mass/Vol] 5.26 mg/dL High 0.66 - 1.25 mg/dL [facility] GFR/1.73 sq M.predicted MDRD (S/P/Bld) [Vol rate/Area] 10.6 mL/min/{1.73_m2} Low - PINF [facility] Comment on above: Calculation based on the Chronic Kidney Disease Epidemiology Collaboration (CKD-EPI) equation refit without adjustment for race Glucose [Mass/Vol] 85 mg/dL 70 - 100 mg/dL [facility] Interpretation and review of laboratory results Abnormal [email or web address] Potassium [Moles/Vol] 4.7 mmol/L 3.5 - 5.1 mmol/L [facility] Sodium [Moles/Vol] 133 mmol/L Low 135 - 145 mmol/L [email or web address] Urea nitrogen [Mass/Vol] 29 mg/dL High 9 - 20 mg/dL [facility] CBC W Auto Differential pane l (Bld)Ordered By: Tana Patten on 01-22-2024 Basophils (Bld) [#/Vol] 0.1 10*3/uL 0.0 - 0.2 10*3/uL [facility] Basophils/100 WBC (Bld) 1.1 % 0.0 - 2.0 % [facility] Eosinophils (Bld) [#/Vol] 0.5 10*3/uL 0.0 - 0.5 10*3/uL [email or web address] Eosinophils/100 WBC (Bld) 5.5 % 0.0 - 6.0 % [facility] Erythrocyte distribution width (RBC) [Ratio] 16.4 % High 11.5 - 15.0 % [place] [email or web address] Hematocrit (Bld) [Volume fraction] 27.2 % Low 40.0 - 52.0 % [facility] Hemoglobin (Bld) [Mass/Vol] 8.3 g/dL Low 13.0 - 18.0 g/dL [facility] Immature granulocytes (Bld) [#/Vol] 0.0 10*3/uL NINF - 0.1 10*3/uL [email or web address] Immature granulocytes/100 WBC (Bld) 0.5 % 0.0 - 2.0 % [facility] Interpretation and review of laboratory results Abnormal [facility] Lymphocytes (Bld) [#/Vol] 0.9 10*3/uL Low 1.0 - 4.3 10*3/uL [facility] Lymphocytes/100 WBC (Bld) 10.3 % Low 15.0 - 45.0 % [facility] MCH (RBC) [Entitic mass] 28.2 pg 26.0 - 34.0 pg [facility] MCHC (RBC) [Mass/Vol] 30.5 % 30.5 - 36.0 % [facility] MCV (RBC) [Entitic vol] 92.5 fL 77.0 - 99.0 fL [facility] Monocytes (Bld) [#/Vol] 1.0 10*3/uL High 0.0 - 0.9 10*3/uL [facility] Monocytes/100 WBC (Bld) 12.0 % 5.0 - 13.0 % [facility] Neutrophils (Bld) [#/Vol] 5.9 10*3/uL 1.8 - 7.5 10*3/uL [facility] Neutrophils/100 WBC (Bld) 70.6 % 38.0 - 82.0 % [email or web address] [email or web address] Nucleated RBC/100 WBC (Bld) [Ratio] 0.0 % [email or web address] [email or web address] Platelet mean volume (Bld) [Entitic vol] 9.1 fL 9.0 - 12.7 fL [facility] Platelets (Bld) [#/Vol] 265 10*3/uL 140 - 440 10*3/uL [facility] RBC (Bld) [#/Vol] 2.94 10*6/uL Low 4.40 - 5.90 10*6/uL [facility] WBC (Bld) [#/Vol] 8.4 10*3/uL 3.6 - 10.7 10*3/uL [facility] Fibrin D-dimer FEU (PPP) [Ma ss/Vol]on 01-22-2024 Interpretation and review of laboratory results Abnormal [facility] D-Dimer va lues of <0.50 mg/L FEU can be used in combination with a pre-test probability model (e.g. Well's) to exclude pulmonary embolism (PE) disease, as well as an aid in the diagnosis of deep vein thrombosis (DVT). [facility] - Chemistry and C hemistry - challengeon 01-22-2024 Procalcitonin [Mass/Vol] 0.38 ng/mL High 0.00 - 0.09 ng/mL [facility] Troponin I.cardiac [Mass/Vol] 0.023 ng/mL NINF - 0.034 ng/mL [facility] Laboratory - Coagulationon 0 01-22-2024 Fibrin D-dimer FEU (PPP) [Mass/Vol] 2.67 mg/L High NINF - 0.50 mg/L [facility] Laboratory - Microbiology an d Antimicrobial susceptibilityon 01-22-2024 FLUAV RNA JESUS+probe Ql (Resp) Not detected Not Detected [facility] FLUBV RNA JESUS+probe Ql (Resp) Not detected Not Detected [facility] RSV RNA JESUS+probe Ql (Resp) Not detected Not Detected [facility] SARS-CoV-2 (COVID-19) RNA JESUS+probe Ql (Resp) Not detected Not Detected [facility] Natriuretic peptide B [Mass/ Vol]on 01-22-2024 Interpretation and review of laboratory results Abnormal [facility] Natriuretic peptide B (Bld) [Mass/Vol] 97764 pg/mL High <20 - 300 [facility] No Panel Informationon 01-21 [facility] Procalcitonin [Mass/Vol]on 0 01-22-2024 Interpretation and review of laboratory results Abnormal [facility] PCT <0.50 = Low risk of severe sepsis and/or septic shock. PCT >2.00 = High risk of severe sepsis and/or septic shock. [facility] SARS-CoV-2, Flu A/B, and RSV Comboon 01-22-2024 Interpretation and review of laboratory results Normal [facility] Methodology: real-ti me, RT-PCR [facility] Troponin I.cardiac [Mass/Vol ]on 01-22-2024 Interpretation and review of laboratory results Normal [facility] Patients with high l evels of Biotin oral intake (ie >5 mg/day) may have falsely decreased Troponin levels. [facility] XR Chest Single viewon 01-21 1. Increasing vascular congestion, left lower lung atelectasis versus infiltrates and left pleural effusion. 2. Otherwise, stable. Report Dictated on Electronically Signed By: Miguel A Victoria MD Electronically Signed Date/Time: 01/22/2024 7:56 PM EDT [facility] Patient Name: JOSE ALEXANDER RD : 1945 Exam Date/Time: 01/22/2024 19:53 Procedure: XR CHEST 1 VIEW Ordering Provider: GLEASON II, STERLING Reason For Exam: Shortness of breath CHEST PORTABLE CLINICAL INDICATION: Shortness of breath TECHNIQUE: Portable chest x-ray(s). COMPARISON: December,. FINDINGS: Left IJ, dual-lumen central venous catheter again noted. Postsurgical changes again project over the heart and mild cardiomegaly, stable. Lungs show mild vascular congestion centrally, mildly increased. Patchy and partially confluent opacities again noted over the right lower lung about the same. Similar opacities now project over the lower half of left hemithorax, new from comparison. Small right and moderate left pleural effusions, increased on the left. No apparent pneumothorax. Degenerative change again noted in the thoracic spine. [facility] Miguel A Victoria MD - 01/22/2024 Patient Name: JOSE JOHN : 1945 Exam Date/Time: 01/22/2024 19:53 Procedure: XR CHEST 1 VIEW Ordering Provider: GLEASON II, STERLING Reason For Exam: Shortness of breath CHEST PORTABLE CLINICAL INDICATION: Shortness of breath TECHNIQUE: Portable chest x-ray(s). COMPARISON: December,. FINDINGS: Left IJ, dual-lumen central venous catheter again noted. Postsurgical changes again project over the heart and mild cardiomegaly, stable. Lungs show mild vascular congestion centrally, mildly increased. Patchy and partially confluent opacities again noted over the right lower lung about the same. Similar opacities now project over the lower half of left hemithorax, new from comparison. Small right and moderate left pleural effusions, increased on the left. No apparent pneumothorax. Degenerative change again noted in the thoracic spine. IMPRESSION: 1. Increasing vascular congestion, left lower lung atelectasis versus infiltrates and left pleural effusion. 2. Otherwise, stable. Report Dictated on Electronically Signed By: Miguel A Victoria MD Electronically Signed Date/Time: 01/22/2024 7:56 PM EDT [facility] Radiology Study observation (narrative) [employer] XR Chest Single viewOrdered By: Miguel A Victoria on 01-22-2024 [employer] Work Phone: CBC panel Auto (Bld)on 01-20 Erythrocyte distribution width (RBC) [Ratio] 16.4 % High 11.5 - 15.0 % [facility] Hematocrit (Bld) [Volume fraction] 25.4 % Low 39.0 - 51.0 % [facility] Hemoglobin (Bld) [Mass/Vol] 7.7 g/dL Low 13.0 - 17.0 g/dL [facility] Interpretation and review of laboratory results Abnormal [facility] MCH (RBC) [Entitic mass] 28.7 pg 26.0 - 34.0 pg [facility] MCHC (RBC) [Mass/Vol] 30.3 g/dL Low 30.5 - 36.0 g/dL [facility] MCV (RBC) [Entitic vol] 94.8 fL 80.0 - 100.0 fL [facility] Nucleated RBC (Bld) [#/Vol] NINF [facility] Platelet mean volume (Bld) [Entitic vol] 9.7 fL 9.0 - 12.7 fL [facility] Platelets (Bld) [#/Vol] 256 10*3/uL [facility] RBC (Bld) [#/Vol] 2.68 10*6/uL Low 4.20 - 6.00 m/uL [facility] WBC (Bld) [#/Vol] 8.63 10*3/uL [facility] Erythrocyte distribution width (RBC) [Ratio] 16.4 % High 11.5-15.0 [facility] Comment on above: Order Comment: Speci men Type: BLOOD SPECIMEN Ordering Facility: [facility] Address: [address] [place] [address] Performed By: #### 2 4362-6 #### [facility] CLIA [id number] [address] [place] Hematocrit (Bld) [Volume fraction] 25.4 % Low 39.0-51.0 [facility] Comment on above: Order Comment: Speci men Type: BLOOD SPECIMEN Ordering Facility: [facility] Address: [address] [place] [address] Performed By: #### 2 4362-6 #### [facility] CLIA [id number] [address] [place] [address] [place] Hemoglobin (Bld) [Mass/Vol] 7.7 g/dL Low 13.0-17.0 [facility] Comment on above: Order Comment: Speci men Type: BLOOD SPECIMEN Ordering Facility: [facility] Address: [address] [place] [address] Performed By: #### 2 4362-6 #### [facility] CLIA [id number] [address] [place] MCH (RBC) [Entitic mass] 28.7 pg Normal 26.0-34.0 [facility] Comment on above: Order Comment: Speci men Type: BLOOD SPECIMEN Ordering Facility: [facility] Address: [address] [place] [address] Performed By: #### 2 4362-6 #### [facility] CLIA [id number] [address] [place] MCHC (RBC) [Mass/Vol] 30.3 g/dL Low 30.5-36.0 [facility] Comment on above: Order Comment: Speci men Type: BLOOD SPECIMEN Ordering Facility: [facility] Address: [address] [place] [address] Performed By: #### 2 4362-6 #### [facility] CLIA [id number] [address] MCV (RBC) [Entitic vol] 94.8 fL Normal 80.0-100.0 [facility] Comment on above: Order Comment: Speci men Type: BLOOD SPECIMEN Ordering Facility: [facility] Address: [address] [place] [address] Performed By: #### 2 4362-6 #### [facility] CLIA [id number] [address] [place] [address] [place] Nucleated RBC (Bld) [#/Vol] 10*3/uL Normal <0.01 [facility] Comment on above: Order Comment: Speci men Type: BLOOD SPECIMEN Ordering Facility: [facility] Address: [address] [place] [address] Performed By: #### 2 4362-6 #### [facility] CLIA [id number] [address] [place] [address] [place] Platelet mean volume (Bld) [Entitic vol] 9.7 fL Normal 9.0-12.7 [facility] Comment on above: Order Comment: Speci men Type: BLOOD SPECIMEN Ordering Facility: [facility] Address: [address] [place] [address] Performed By: #### 2 4362-6 #### [facility] CLIA [id number] [address] [place] [address] [place] Platelets (Bld) [#/Vol] 256 10*3/uL Normal 150-400 [facility] Comment on above: Order Comment: Speci men Type: BLOOD SPECIMEN Ordering Facility: [facility] Address: [address] [place] [address] Performed By: #### 2 4362-6 #### [facility] CLIA [id number] [address] [place] [address] [place] RBC (Bld) [#/Vol] 2.68 10*6/uL Low 4.20-6.00 [facility] Comment on above: Order Comment: Speci men Type: BLOOD SPECIMEN Ordering Facility: [facility] Address: [address] [place] [address] Performed By: #### 2 4362-6 #### [facility] CLIA [id number] [address] [place] [address] [place] WBC (Bld) [#/Vol] 8.63 10*3/uL Normal 3.70-11.00 [facility] Comment on above: Order Comment: Speci men Type: BLOOD SPECIMEN Ordering Facility: [facility] Natacha Waller Address: [address] [place] [address] Performed By: #### 2 4362-6 #### [facility] CLIA [id number] [address] [place], [place] [id number] [place] Renal function 2000 panelon 01-21-2024 Albumin [Mass/Vol] 3.3 g/dL Low 3.9 - 4.9 g/dL [facility] Anion gap [Moles/Vol] 12 mmol/L 8 - 15 mmol/L [facility] Calcium [Mass/Vol] 8.6 mg/dL 8.5 - 10. 2 mg/dL [facility] Chloride [Moles/Vol] 99 mmol/L 98 - 10 7 mmol/L [facility] CO2 [Moles/Vol] 27 mmol/L 22 - 30 mmol/L [facility] Creatinine [Mass/Vol] 6.95 mg/dL High 0.73 - 1.22 mg/dL [facility] GFR/1.73 sq M.predicted among non-blacks MDRD (S/P/Bld) [Vol rate/Area] 8 mL/min/{1.73_m2} Low - PINF [facility] Comment on above: Estimated Glomerular Filtration Rate (eGFR) is calculated using the 2020 CKD-EPI creatinine equation. This equation utilizes serum creatinine, sex, and age as parameters. The creatinine assay has traceable calibration to isotope dilution-mass spectrometry. Refer to KDIGO guidelines for clinical interpretation. In patients with unstable renal function, e.g. those with acute kidney injury, the eGFR may not accurately reflect actual GFR. Glucose [Mass/Vol] 148 mg/dL High 74 - 99 mg/dL [facility] Comment on above: The [place] Diabete s Association (ADA) provides guidance for cutoff values for fasting glucose and random glucose. The ADA defines fasting as no caloric intake for at least 8 hours. Fasting plasma glucose results between 100 to 125 mg/dL indicate increased risk for diabetes (prediabetes). Fasting plasma glucose results greater than or equal to 126 mg/dL meet the criteria for diagnosis of diabetes. In the absence of unequivocal hyperglycemia, results should be confirmed by repeat testing. In a patient with classic symptoms of hyperglycemia or hyperglycemic crisis, random plasma glucose results greater than or equal to 200 mg/dL meet the criteria for diagnosis of diabetes. Reference: Standards of Medical Care in Diabetes 2016, [place] Diabetes Association. Diabetes Care. 2016.39(Suppl 1). Interpretation and review of laboratory results Abnormal [facility] Phosphate [Mass/Vol] 4.5 mg/dL 2.7 - 4 .8 mg/dL [facility] Potassium [Moles/Vol] 5.0 mmol/L 3.7 - 5.1 mmol/L [facility] Sodium [Moles/Vol] 138 mmol/L 136 - 144 mmol/L [facility] Urea nitrogen [Mass/Vol] 43 mg/dL High 9 - 24 mg/dL [facility] Albumin [Mass/Vol] 3.3 g/dL Low 3.9-4.9 [facility] Comment on above: Order Comment: Alise montejo Type: BLOOD SPECIMEN Ordering Facility: [facility] Address: [address] [place] [address] Performed By: #### 2 4362-6 #### [facility] CLIA [id number] [address] [place] [address] [place] Anion gap [Moles/Vol] 12 mmol/L Normal 8-15 [facility] Comment on above: Order Comment: Alishai nikia Type: BLOOD SPECIMEN Ordering Facility: [facility] Address: [address] [place] [address] Performed By: #### 2 4362-6 #### [facility] CLIA [id number] [address] [place] [address] [place] Calcium [Mass/Vol] 8.6 mg/dL Normal 8.5-10.2 [facility] Comment on above: Order Comment: Speci men Type: BLOOD SPECIMEN Ordering Facility: [facility] Address: [address] [place] [address] Performed By: #### 2 4362-6 #### [facility] CLIA [id number] [address] [place] [address] [place] Chloride [Moles/Vol] 99 mmol/L Normal 98-[address] [facility] Comment on above: Order Comment: Speci men Type: BLOOD SPECIMEN Ordering Facility: [facility] Address: [address] [place] [address] Performed By: #### 2 4362-6 #### [facility] CLIA [id number] [address] [place] [address] [place] CO2 [Moles/Vol] 27 mmol/L Normal 22-30 [facility] Comment on above: Order Comment: Speci men Type: BLOOD SPECIMEN Ordering Facility: [facility] Address: [address] [place] [address] Performed By: #### 2 4362-6 #### [facility] CLIA [id number] [address] [place] [address] [place] Creatinine [Mass/Vol] 6.95 mg/dL High 0.73-1.22 [facility] Comment on above: Order Comment: Alishai men Type: BLOOD SPECIMEN Ordering Facility: [facility] Address: [address] [place] [address] Performed By: #### 2 4362-6 #### [facility] CLIA [id number] [address] [place] [facility] Creatinine and Glomerular filtration rate.predicted panel (S/P/Bld) 8 mL/min/1.73m??? Low >=60 [facility] Comment on above: Order Comment: Alise montejo Type: BLOOD SPECIMEN Ordering Facility: [facility] Address: [address] [place] [address] Result Comment: Anupama mated Glomerular Filtration Rate (eGFR) is calculated using the 2020 CKD-EPI creatinine equation. This equation utilizes serum creatinine, sex, and age as parameters. The creatinine assay has traceable calibration to isotope dilution-mass spectrometry. Refer to KDIGO guidelines for clinical interpretation. In patients with unstable renal function, e.g. those with acute kidney injury, the eGFR may not accurately reflect actual GFR. Performed By: #### 2 4362-6 #### [facility] CLIA [id number] [address] [place] Glucose [Mass/Vol] 148 mg/dL High 74-99 [facility] Comment on above: Order Comment: Alishai men Type: BLOOD SPECIMEN Ordering Facility: [facility] Address: [address] [place] [address] Result Comment: The [place] Diabetes Association (ADA) provides guidance for cutoff values for fasting glucose and random glucose. The ADA defines fasting as no caloric intake for at least 8 hours. Fasting plasma glucose results between 100 to 125 mg/dL indicate increased risk for diabetes (prediabetes). Fasting plasma glucose results greater than or equal to 126 mg/dL meet the criteria for diagnosis of diabetes. In the absence of unequivocal hyperglycemia, results should be confirmed by repeat testing. In a patient with classic symptoms of hyperglycemia or hyperglycemic crisis, random plasma glucose results greater than or equal to 200 mg/dL meet the criteria for diagnosis of diabetes. Reference: Standards of Medical Care in Diabetes 2016, [place] Diabetes Association. Diabetes Care. 2016.39(Suppl 1). Performed By: #### 2 4362-6 #### [facility] CLIA [id number] [address] [place] [address] [place] Phosphate [Mass/Vol] 4.5 mg/dL Normal 2.7-4.[address] [facility] Comment on above: Order Comment: Speci men Type: BLOOD SPECIMEN Ordering Facility: [facility] Address: [address] [place] [address] Performed By: #### 2 4362-6 #### [facility] CLIA [id number] [address] [place] [address] [place] Potassium [Moles/Vol] 5.0 mmol/L Normal 3.7-5.1 [facility] Comment on above: Order Comment: Speci men Type: BLOOD SPECIMEN Ordering Facility: [facility] Address: [address] [place] [address] Performed By: #### 2 4362-6 #### [facility] CLIA [id number] [address] [place] [address] [place] Sodium [Moles/Vol] 138 mmol/L Normal 136-144 [facility] Comment on above: Order Comment: Speci men Type: BLOOD SPECIMEN Ordering Facility: [facility] Address: [address] [place] [address] Performed By: #### 2 4362-6 #### [facility] CLIA [id number] [address] [place] [address] [place] Urea nitrogen [Mass/Vol] 43 mg/dL High 9-24 [facility] Comment on above: Order Comment: Speci men Type: BLOOD SPECIMEN Ordering Facility: [facility] Address: [address] [place] [address] Performed By: #### 2 4362-6 #### [facility] CLIA [id number] [address] [place] ECG COMPLETEon 01-18-2024 Atrial Rate 83 BPM [facility] Calculated P [place] 4 degrees [facility] Calculated R [place] 37 degrees [facility] Calculated T [place] 137 degrees [facility] P-R Interval 120 ms [facility] QRS Duration 102 ms [facility] QT Interval 392 ms [facility] QTC Calculation (Bazett) 460 ms [facility] Ventricular Rate 83 BPM [facility] NORMAL SINUS RHYTHM ST & INFEROLATERAL T WAVE ABNORMALITY ABNORMAL ECG Confirmed by MD PACHECO GREGORY () on 01/18/2024 8:06:47 AM [facility] [facility] NAME : ALEJANDRA JOHN PID : [id number] : 1945 Gender : Male Race : ORD : [id number] Procedure Date : Jan 16 2024 18:10:27 Edit Date : Jan 18 2024 08:06:51 Diagnosis: NORMAL SINUS RHYTHM ST & INFEROLATERAL T WAVE ABNORMALITY ABNORMAL ECG Confirmed by MD PACHECO GREGORY () on 01/18/2024 8:06:47 AM Test Reason : ROUTINE Location : [address] [place] [address] Overread By : MD PACHECO GREGORY Edited By : MD PACHECO GREGORY Referred By : , Acquired by : JACQUIO RT, [facility] FERRITINon 01-18-2024 Ferritin [Mass/Vol] 815.5 ng/mL High 30.3 - 565.7 ng/mL [facility] Ferritin SerPl-mCncon 2023 Ferritin [Mass/Vol] 815.5 ng/mL High 30.3-565.[address] [facility] Comment on above: Order Comment: Speci men Type: BLOOD SPECIMEN Ordering Facility: [facility] Address: [address] [place] [address] Performed By: #### 2 276-4 #### [facility] CLIA [id number] [address] [place] [address] [place] Ferritin [Mass/Vol]on 2023 Interpretation and review of laboratory results Abnormal [facility] Iron and Iron binding capaci ty panelon 01-18-2024 Iron [Mass/Vol] 30 ug/dL Low 41 - 186 ug/dL [facility] Iron binding capacity [Mass/Vol] 173 ug/dL Low 232 - 386 ug/dL [facility] Iron/TIBC [Molar ratio] 17.3 % 15.0 - 57.0 % [facility] Iron [Mass/Vol] 30 ug/dL Low 41-[address] [facility] Comment on above: Order Comment: Speci men Type: BLOOD SPECIMEN Ordering Facility: [facility] Address: [address] [place] [address] Performed By: #### 5 0190-8 #### [facility] CLIA [id number] [address] Iron binding capacity [Mass/Vol] 173 ug/dL Low 232-[address] [facility] Comment on above: Order Comment: Speci men Type: BLOOD SPECIMEN Ordering Facility: [facility] Address: [address] [place] [address] Performed By: #### 5 0190-8 #### [facility] CLIA [id number] [address] [place] Iron/TIBC [Molar ratio] 17.3 % Normal 15.0-57.0 [facility] Comment on above: Order Comment: Speci men Type: BLOOD SPECIMEN Ordering Facility: [facility] Address: [address] [place] [address] Performed By: #### 5 0190-8 #### [facility] CLIA [id number] [address] [place] [address] [place] No Panel Informationon 01-17 Interpretation and review of laboratory results Abnormal [facility] Renal function 2000 panelon 01-18-2024 Albumin [Mass/Vol] 3.2 g/dL Low 3.9 - 4.9 g/dL [facility] Anion gap [Moles/Vol] 14 mmol/L 8 - 15 mmol/L [facility] Calcium [Mass/Vol] 8.5 mg/dL 8.5 - 10. 2 mg/dL [facility] Chloride [Moles/Vol] 97 mmol/L Low 98 - 10 7 mmol/L [facility] CO2 [Moles/Vol] 25 mmol/L 22 - 30 mmol/L [facility] Creatinine [Mass/Vol] 5.13 mg/dL High 0.73 - 1.22 mg/dL [facility] GFR/1.73 sq M.predicted among non-blacks MDRD (S/P/Bld) [Vol rate/Area] 11 mL/min/{1.73_m2} Low - PINF [facility] Comment on above: Estimated Glomerular Filtration Rate (eGFR) is calculated using the 2020 CKD-EPI creatinine equation. This equation utilizes serum creatinine, sex, and age as parameters. The creatinine assay has traceable calibration to isotope dilution-mass spectrometry. Refer to KDIGO guidelines for clinical interpretation. In patients with unstable renal function, e.g. those with acute kidney injury, the eGFR may not accurately reflect actual GFR. Glucose [Mass/Vol] 112 mg/dL High 74 - 99 mg/dL [facility] Comment on above: The [place] Diab[employer] s Association (ADA) provides guidance for cutoff values for fasting glucose and random glucose. The ADA defines fasting as no caloric intake for at least 8 hours. Fasting plasma glucose results between 100 to 125 mg/dL indicate increased risk for diabetes (prediabetes). Fasting plasma glucose results greater than or equal to 126 mg/dL meet the criteria for diagnosis of diabetes. In the absence of unequivocal hyperglycemia, results should be confirmed by repeat testing. In a patient with classic symptoms of hyperglycemia or hyperglycemic crisis, random plasma glucose results greater than or equal to 200 mg/dL meet the criteria for diagnosis of diabetes. Reference: Standards of Medical Care in Diabetes 2016, [place] Diabetes Association. Diabetes Care. 2016.39(Suppl 1). Phosphate [Mass/Vol] 4.5 mg/dL 2.7 - 4 .8 mg/dL [facility] Potassium [Moles/Vol] 4.4 mmol/L 3.7 - 5.1 mmol/L [facility] Sodium [Moles/Vol] 136 mmol/L 136 - 144 mmol/L [facility] Urea nitrogen [Mass/Vol] 28 mg/dL High 9 - 24 mg/dL [facility] Albumin [Mass/Vol] 3.2 g/dL Low 3.9-4.9 [facility] Comment on above: Order Comment: Speci men Type: BLOOD SPECIMEN Ordering Facility: [facility] Address: [address] [place] [address] Performed By: #### 2 4362-6 #### [facility] CLIA [id number] [address] [place] [address] [place] Anion gap [Moles/Vol] 14 mmol/L Normal 8-15 [facility] Comment on above: Order Comment: Speci men Type: BLOOD SPECIMEN Ordering Facility: [facility] Address: [address] [place] [address] Performed By: #### 2 4362-6 #### [facility] CLIA [id number] [address] [place] [address] [place] Calcium [Mass/Vol] 8.5 mg/dL Normal 8.5-10.2 [facility] Comment on above: Order Comment: Speci men Type: BLOOD SPECIMEN Ordering Facility: [facility] Address: [address] [place] [address] Performed By: #### 2 4362-6 #### [facility] CLIA [id number] [address] [place] [address] [place] Chloride [Moles/Vol] 97 mmol/L Low 98-[address] [facility] Comment on above: Order Comment: Speci men Type: BLOOD SPECIMEN Ordering Facility: [facility] Address: [address] [place] [address] Performed By: #### 2 4362-6 #### [facility] CLIA [id number] [address] [place] [address] [place] CO2 [Moles/Vol] 25 mmol/L Normal 22-30 [facility] Comment on above: Order Comment: Speci men Type: BLOOD SPECIMEN Ordering Facility: [facility] Address: [address] [place] [address] Performed By: #### 2 4362-6 #### [facility] CLIA [id number] [address] [place] [address] [place] Creatinine [Mass/Vol] 5.13 mg/dL High 0.73-1.22 [facility] Comment on above: Order Comment: Alise montejo Type: BLOOD SPECIMEN Ordering Facility: [facility] Address: [address] [place] [address] Performed By: #### 2 4362-6 #### [facility] CLIA [id number] [address] [place] [address] [place] Creatinine and Glomerular filtration rate.predicted panel (S/P/Bld) 11 mL/min/1.73m??? Low >=60 [facility] Comment on above: Order Comment: Alise montejo Type: BLOOD SPECIMEN Ordering Facility: [facility] Address: [address] [place] [address] Result Comment: Anupama mated Glomerular Filtration Rate (eGFR) is calculated using the 2020 CKD-EPI creatinine equation. This equation utilizes serum creatinine, sex, and age as parameters. The creatinine assay has traceable calibration to isotope dilution-mass spectrometry. Refer to KDIGO guidelines for clinical interpretation. In patients with unstable renal function, e.g. those with acute kidney injury, the eGFR may not accurately reflect actual GFR. Performed By: #### 2 4362-6 #### [facility] CLIA [id number] [address] [place] [address] [place] Glucose [Mass/Vol] 112 mg/dL High 74-99 [facility] Comment on above: Order Comment: Alise montejo Type: BLOOD SPECIMEN Ordering Facility: [facility] Address: [address] [place] [address] Result Comment: The [place] Diabetes Association (ADA) provides guidance for cutoff values for fasting glucose and random glucose. The ADA defines fasting as no caloric intake for at least 8 hours. Fasting plasma glucose results between 100 to 125 mg/dL indicate increased risk for diabetes (prediabetes). Fasting plasma glucose results greater than or equal to 126 mg/dL meet the criteria for diagnosis of diabetes. In the absence of unequivocal hyperglycemia, results should be confirmed by repeat testing. In a patient with classic symptoms of hyperglycemia or hyperglycemic crisis, random plasma glucose results greater than or equal to 200 mg/dL meet the criteria for diagnosis of diabetes. Reference: Standards of Medical Care in Diabetes 2016, [place] Diabetes Association. Diabetes Care. 2016.39(Suppl 1). Performed By: #### 2 4362-6 #### [facility] CLIA [id number] [address] [place] [address] [place] Phosphate [Mass/Vol] 4.5 mg/dL Normal 2.7-4.[address] [facility] Comment on above: Order Comment: Speci men Type: BLOOD SPECIMEN Ordering Facility: [facility] Address: [address] [place] [address] Performed By: #### 2 4362-6 #### [facility] CLIA [id number] [address] [place] Potassium [Moles/Vol] 4.4 mmol/L Normal 3.7-5.1 [facility] Comment on above: Order Comment: Alishai men Type: BLOOD SPECIMEN Ordering Facility: [facility] Address: [address] [place] [address] Performed By: #### 2 4362-6 #### [facility] CLIA [id number] [address] [place] [address] [place] Sodium [Moles/Vol] 136 mmol/L Normal 136-144 [facility] Comment on above: Order Comment: Alishai men Type: BLOOD SPECIMEN Ordering Facility: [facility] Address: [address] [place] [address] Performed By: #### 2 4362-6 #### [facility] CLIA [id number] [address] [place] [address] [place] Urea nitrogen [Mass/Vol] 28 mg/dL High 9-24 [facility] Comment on above: Order Comment: Alishai men Type: BLOOD SPECIMEN Ordering Facility: [facility] Address: [address] [place] [address] Performed By: #### 2 4362-6 #### [facility] CLIA [id number] [address] [place] [address] [place] CBC panel Auto (Bld)on 01-16 Erythrocyte distribution width (RBC) [Ratio] 16.1 % High 11.5 - 15.0 % [facility] Hematocrit (Bld) [Volume fraction] 29.3 % Low 39.0 - 51.0 % [facility] Hemoglobin (Bld) [Mass/Vol] 8.9 g/dL Low 13.0 - 17.0 g/dL [facility] Interpretation and review of laboratory results Abnormal [facility] MCH (RBC) [Entitic mass] 28.5 pg 26.0 - 34.0 pg [facility] MCHC (RBC) [Mass/Vol] 30.4 g/dL Low 30.5 - 36.0 g/dL [facility] MCV (RBC) [Entitic vol] 93.9 fL 80.0 - 100.0 fL [facility] Nucleated RBC (Bld) [#/Vol] NINF [facility] Platelet mean volume (Bld) [Entitic vol] 9.6 fL 9.0 - 12.7 fL [facility] Platelets (Bld) [#/Vol] 260 10*3/uL [facility] RBC (Bld) [#/Vol] 3.12 10*6/uL Low 4.20 - 6.00 m/uL [facility] WBC (Bld) [#/Vol] 7.15 10*3/uL [facility] Erythrocyte distribution width (RBC) [Ratio] 16.1 % High 11.5-15.0 [facility] Comment on above: Order Comment: Alise montejo Type: BLOOD SPECIMEN Ordering Facility: [facility] Address: [address] [place] [address] Performed By: #### 5 8410-2 #### [facility] CLIA [id number] [address] Hematocrit (Bld) [Volume fraction] 29.3 % Low 39.0-51.0 [facility] Comment on above: Order Comment: Alise montejo Type: BLOOD SPECIMEN Ordering Facility: [facility] Address: [address] [place] [address] Performed By: #### 5 8410-2 #### [facility] CLIA [id number] [address] [place] Hemoglobin (Bld) [Mass/Vol] 8.9 g/dL Low 13.0-17.0 [facility] Comment on above: Order Comment: Speci men Type: BLOOD SPECIMEN Ordering Facility: [facility] Address: [address] [place] [address] Performed By: #### 5 8410-2 #### [facility] CLIA [id number] [address] [place] MCH (RBC) [Entitic mass] 28.5 pg Normal 26.0-34.0 [facility] Comment on above: Order Comment: Speci men Type: BLOOD SPECIMEN Ordering Facility: [facility] Address: [address] [place] [address] Performed By: #### 5 8410-2 #### [facility] CLIA [id number] [address] MCHC (RBC) [Mass/Vol] 30.4 g/dL Low 30.5-36.0 [facility] Comment on above: Order Comment: Speci men Type: BLOOD SPECIMEN Ordering Facility: [facility] Address: [address] [place] [address] Performed By: #### 5 8410-2 #### [facility] CLIA [id number] [address] MCV (RBC) [Entitic vol] 93.9 fL Normal 80.0-100.0 C [facility] Comment on above: Order Comment: Speci men Type: BLOOD SPECIMEN Ordering Facility: [facility] Address: [address] [place] [address] Performed By: #### 5 8410-2 #### [facility] CLIA [id number] [address] Nucleated RBC (Bld) [#/Vol] 10*3/uL Normal <0.01 [facility] Comment on above: Order Comment: Speci men Type: BLOOD SPECIMEN Ordering Facility: [facility] Address: [address] [place] [address] Performed By: #### 5 8410-2 #### [facility] CLIA [id number] [address] [place] [address] [place] Platelet mean volume (Bld) [Entitic vol] 9.6 fL Normal 9.0-12.7 [facility] Comment on above: Order Comment: Speci men Type: BLOOD SPECIMEN Ordering Facility: [facility] Address: [address] [place] [address] Performed By: #### 5 8410-2 #### [facility] CLIA [id number] [address] [place] [address] [place] Platelets (Bld) [#/Vol] 260 10*3/uL Normal 150-400 [facility] Comment on above: Order Comment: Speci men Type: BLOOD SPECIMEN Ordering Facility: [facility] Address: [address] [place] [address] Performed By: #### 5 8410-2 #### [facility] CLIA [id number] [address] [place] [address] [place] RBC (Bld) [#/Vol] 3.12 10*6/uL Low 4.20-6.00 [facility] Comment on above: Order Comment: Speci men Type: BLOOD SPECIMEN Ordering Facility: [facility] Address: [address] [place] [address] Performed By: #### 5 8410-2 #### [facility] CLIA [id number] [address] [place] [address] [place] WBC (Bld) [#/Vol] 7.15 10*3/uL Normal 3.70-11.00 [facility] Comment on above: Order Comment: Speci men Type: BLOOD SPECIMEN Ordering Facility: [facility] Address: [address] [place] [address] Performed By: #### 5 8410-2 #### [facility] CLIA [id number] [address] [place] HBV surface Ab Ql (S)Ordered By: Kanchan Mondragon on 01-17-2024 HBV surface Ab Qn (S) mIU/mL [facility] Comment on above: <8 mIU/mL: No serolo gical evidence of immunity to Hepatitis B Virus. >/= 8 to <12 mIU/mL: No serological evidence of immunity to Hepatitis B Virus. >/= 12 mIU/mL: Consistent with serological evidence of immunity to Hepatitis B Virus. [facility] HBV surface Ab Ql (S)on 01-04 HBV surface Ab Qn (S) <8.00 Normal [facility] Comment on above: Order Comment: Speci men Type: BLOOD SPECIMEN Ordering Facility: [facility] Address: [address] [place] [address] Result Comment: <8 m IU/mL: No serological evidence of immunity to Hepatitis B Virus. >/= 8 to <12 mIU/mL: No serological evidence of immunity to Hepatitis B Virus. >/= 12 mIU/mL: Consistent with serological evidence of immunity to Hepatitis B Virus. Performed By: #### 2 2322-2 #### [facility] CLIA [id number] [address] [place] [address] [place] HBV surface Ab Ser Qlon 01-04 HBV surface Ab Ql (S) Negative Normal [facility] Comment on above: Order Comment: Speci men Type: BLOOD SPECIMEN Ordering Facility: [facility] Address: [address] [place] [address] Result Comment: No s erological evidence of immunity to Hepatitis B Virus. Performed By: #### 2 2322-2 #### [facility] CLIA [id number] [address] [place] [address] [place] HBV surface Ag Ql (S)on 01-04 Interpretation and review of laboratory results Normal [facility] HBV surface Ag Ser Qlon 01-04 HBV surface Ag Ql (S) Negative Normal Negative [facility] Comment on above: Order Comment: Speci men Type: BLOOD SPECIMEN Ordering Facility: [facility] Address: [address] [place] [address] Performed By: #### 2 4362-6 #### [facility] CLIA [id number] [address] [place] [address] [place] HEPATITIS B SURFACE ANTIBODY Ordered By: Kanchan Mondragon on 01-17-2024 HBV surface Ab Ql (S) Negative [facility] Comment on above: No serological evide nce of immunity to Hepatitis B Virus. HEPATITIS B SURFACE ANTIGENo n 01-17-2024 HBV surface Ag Ql (S) Negative Negative [facility] ECG 12 LEADon 01-16-2024 ECG 12 LEAD Ventricular Rate : 8 3 BPM Atrial Rate : 83 BPM P-R Interval : 120 ms QRS Duration : 102 ms Q-T Interval : 392 ms QTC Calculation(Bazett) : 460 ms Calculated P [place] : 4 degrees Calculated R [place] : 37 degrees Calculated T [place] : 137 degrees NORMAL SINUS RHYTHM ST & INFEROLATERAL T WAVE ABNORMALITY ABNORMAL ECG Confirmed by MD PACHECO GREGORY () on 01/18/2024 8:06:47 AM NAME : JOSE JOHN PID : [id number] : 1945 Gender : Male Race : ORD : [id number] Procedure Date : Jan 16 2024 18:10:27 Edit Date : Jan 18 2024 08:06:51 Diagnosis: NORMAL SINUS RHYTHM ST & INFEROLATERAL T WAVE ABNORMALITY ABNORMAL ECG Confirmed by MD PACHECO GREGORY () on 01/18/2024 8:06:47 AM Test Reason : ROUTINE Location : [facility] Overread By : MD PACHECO GREGORY Edited By : MD PACHECO GREGORY Referred By : , Acquired by : LRO RT, Normal [facility] CBC panel Auto (Bld)on 01-13 Erythrocyte distribution width (RBC) [Ratio] 16.0 % High 11.5 - 15.0 % [facility] Hematocrit (Bld) [Volume fraction] 29.7 % Low 39.0 - 51.0 % [facility] Hemoglobin (Bld) [Mass/Vol] 8.9 g/dL Low 13.0 - 17.0 g/dL [facility] Interpretation and review of laboratory results Abnormal [facility] MCH (RBC) [Entitic mass] 28.9 pg 26.0 - 34.0 pg [facility] MCHC (RBC) [Mass/Vol] 30.0 g/dL Low 30.5 - 36.0 g/dL [facility] MCV (RBC) [Entitic vol] 96.4 fL 80.0 - 100.0 fL [facility] Nucleated RBC (Bld) [#/Vol] NINF [facility] Platelet mean volume (Bld) [Entitic vol] 9.7 fL 9.0 - 12.7 fL [facility] Platelets (Bld) [#/Vol] 313 10*3/uL [facility] RBC (Bld) [#/Vol] 3.08 10*6/uL Low 4.20 - 6.00 m/uL [facility] WBC (Bld) [#/Vol] 10.21 10*3/uL [facility] Erythrocyte distribution width (RBC) [Ratio] 16.0 % High 11.5-15.0 [facility] Comment on above: Order Comment: Speci men Type: BLOOD SPECIMEN Ordering Facility: [facility] Address: [address] [place] [address] Performed By: #### 5 8410-2 #### [facility] CLIA [id number] [address] [place] [address] [place] Hematocrit (Bld) [Volume fraction] 29.7 % Low 39.0-51.0 [facility] Comment on above: Order Comment: Speci men Type: BLOOD SPECIMEN Ordering Facility: [facility] Address: [address] [place] [address] Performed By: #### 5 8410-2 #### [facility] CLIA [id number] [address] [place] [address] [place] Hemoglobin (Bld) [Mass/Vol] 8.9 g/dL Low 13.0-17.0 [facility] Comment on above: Order Comment: Speci men Type: BLOOD SPECIMEN Ordering Facility: [facility] Address: [address] [place] [address] Performed By: #### 5 8410-2 #### [facility] CLIA [id number] [address] [place] [address] [place] MCH (RBC) [Entitic mass] 28.9 pg Normal 26.0-34.0 [facility] Comment on above: Order Comment: Speci men Type: BLOOD SPECIMEN Ordering Facility: [facility] Address: [address] [place] [address] Performed By: #### 5 8410-2 #### [facility] CLIA [id number] [address] MCHC (RBC) [Mass/Vol] 30.0 g/dL Low 30.5-36.0 [facility] Comment on above: Order Comment: Speci men Type: BLOOD SPECIMEN Ordering Facility: [facility] Address: [address] [place] [address] Performed By: #### 5 8410-2 #### [facility] CLIA [id number] [address] [place] MCV (RBC) [Entitic vol] 96.4 fL Normal 80.0-100.0 C [facility] Comment on above: Order Comment: Speci men Type: BLOOD SPECIMEN Ordering Facility: [facility] Address: [address] [place] [address] Performed By: #### 5 8410-2 #### [facility] CLIA [id number] [address] [place] Nucleated RBC (Bld) [#/Vol] 10*3/uL Normal <0.01 [facility] Comment on above: Order Comment: Speci men Type: BLOOD SPECIMEN Ordering Facility: [facility] Address: [address] [place] [address] Performed By: #### 5 8410-2 #### [facility] CLIA [id number] [address] Platelet mean volume (Bld) [Entitic vol] 9.7 fL Normal 9.0-12.7 [facility] Comment on above: Order Comment: Speci men Type: BLOOD SPECIMEN Ordering Facility: [facility] Address: [address] [place] [address] Performed By: #### 5 8410-2 #### [facility] CLIA [id number] [address] [place] Platelets (Bld) [#/Vol] 313 10*3/uL Normal 150-400 [facility] Comment on above: Order Comment: Speci men Type: BLOOD SPECIMEN Ordering Facility: [facility] Address: [address] [place] [address] Performed By: #### 5 8410-2 #### [facility] CLIA [id number] [address] [place] [address] [place] RBC (Bld) [#/Vol] 3.08 10*6/uL Low 4.20-6.00 [facility] Comment on above: Order Comment: Speci men Type: BLOOD SPECIMEN Ordering Facility: [facility] Address: [address] [place] [address] Performed By: #### 5 8410-2 #### [facility] CLIA [id number] [address] [place] [address] [place] WBC (Bld) [#/Vol] 10.21 10*3/uL Normal 3.70-11.[address] [facility] Comment on above: Order Comment: Speci men Type: BLOOD SPECIMEN Ordering Facility: [facility] Address: [address] [place] [address] Performed By: #### 5 8410-2 #### [facility] CLIA [id number] [address] [place] [address] [place] Renal function 2000 panelon 01-14-2024 Albumin [Mass/Vol] 3.6 g/dL Low 3.9 - 4.9 g/dL [facility] Anion gap [Moles/Vol] 14 mmol/L 8 - 15 mmol/L [facility] Calcium [Mass/Vol] 8.5 mg/dL 8.5 - 10. 2 mg/dL [facility] Chloride [Moles/Vol] 96 mmol/L Low 98 - 10 7 mmol/L [facility] CO2 [Moles/Vol] 26 mmol/L 22 - 30 mmol/L [facility] Creatinine [Mass/Vol] 6.97 mg/dL High 0.73 - 1.22 mg/dL [facility] GFR/1.73 sq M.predicted among non-blacks MDRD (S/P/Bld) [Vol rate/Area] 8 mL/min/{1.73_m2} Low - PINF [facility] Comment on above: Estimated Glomerular Filtration Rate (eGFR) is calculated using the 2020 CKD-EPI creatinine equation. This equation utilizes serum creatinine, sex, and age as parameters. The creatinine assay has traceable calibration to isotope dilution-mass spectrometry. Refer to KDIGO guidelines for clinical interpretation. In patients with unstable renal function, e.g. those with acute kidney injury, the eGFR may not accurately reflect actual GFR. Glucose [Mass/Vol] 124 mg/dL High 74 - 99 mg/dL [facility] Comment on above: The [place] Di[employer] Association (ADA) provides guidance for cutoff values for fasting glucose and random glucose. The ADA defines fasting as no caloric intake for at least 8 hours. Fasting plasma glucose results between 100 to 125 mg/dL indicate increased risk for diabetes (prediabetes). Fasting plasma glucose results greater than or equal to 126 mg/dL meet the criteria for diagnosis of diabetes. In the absence of unequivocal hyperglycemia, results should be confirmed by repeat testing. In a patient with classic symptoms of hyperglycemia or hyperglycemic crisis, random plasma glucose results greater than or equal to 200 mg/dL meet the criteria for diagnosis of diabetes. Reference: Standards of Medical Care in Diabetes 2016, [place] [employer]. Diabetes Care. 2016.39(Suppl 1). Interpretation and review of laboratory results Abnormal [facility] Phosphate [Mass/Vol] 4.8 mg/dL 2.7 - 4 .8 mg/dL [facility] Potassium [Moles/Vol] 5.9 mmol/L High 3.7 - 5.1 mmol/L [facility] Sodium [Moles/Vol] 136 mmol/L 136 - 144 mmol/L [facility] Urea nitrogen [Mass/Vol] 48 mg/dL High 9 - 24 mg/dL [facility] Albumin [Mass/Vol] 3.6 g/dL Low 3.9-4.9 [facility] Comment on above: Order Comment: Alise montejo Type: BLOOD SPECIMEN Ordering Facility: [facility] Natacha Waller Address: [address] [place] [address] Performed By: #### 2 4362-6 #### [facility] CLIA [id number] [address] [place] [address] [place] Anion gap [Moles/Vol] 14 mmol/L Normal 8-15 [facility] Comment on above: Order Comment: Speci men Type: BLOOD SPECIMEN Ordering Facility: [facility] Address: [address] [place] [address] Performed By: #### 2 4362-6 #### [facility] CLIA [id number] [address] [place] [address] [place] Calcium [Mass/Vol] 8.5 mg/dL Normal 8.5-10.2 [facility] Comment on above: Order Comment: Speci men Type: BLOOD SPECIMEN Ordering Facility: [facility] Address: [address] [place] [address] Performed By: #### 2 4362-6 #### [facility] CLIA [id number] [address] [place] [address] [place] Chloride [Moles/Vol] 96 mmol/L Low 98-[address] [facility] Comment on above: Order Comment: Speci men Type: BLOOD SPECIMEN Ordering Facility: [facility] Address: [address] [place] [address] Performed By: #### 2 4362-6 #### [facility] CLIA [id number] [address] [place] [address] [place] CO2 [Moles/Vol] 26 mmol/L Normal 22-30 [facility] Comment on above: Order Comment: Speci men Type: BLOOD SPECIMEN Ordering Facility: [facility] Address: [address] [place] [address] Performed By: #### 2 4362-6 #### [facility] CLIA [id number] [address] [place] [address] [place] Creatinine [Mass/Vol] 6.97 mg/dL High 0.73-1.22 [facility] Comment on above: Order Comment: Speci men Type: BLOOD SPECIMEN Ordering Facility: [facility] Address: [address] [place] [address] Performed By: #### 2 4362-6 #### [facility] CLIA [id number] [address] [place] [address] [place] Creatinine and Glomerular filtration rate.predicted panel (S/P/Bld) 8 mL/min/1.73m??? Low >=60 [facility] Comment on above: Order Comment: Alise montejo Type: BLOOD SPECIMEN Ordering Facility: [facility] Address: [address] [place] [address] Result Comment: Anupama mated Glomerular Filtration Rate (eGFR) is calculated using the 2020 CKD-EPI creatinine equation. This equation utilizes serum creatinine, sex, and age as parameters. The creatinine assay has traceable calibration to isotope dilution-mass spectrometry. Refer to KDIGO guidelines for clinical interpretation. In patients with unstable renal function, e.g. those with acute kidney injury, the eGFR may not accurately reflect actual GFR. Performed By: #### 2 4362-6 #### [facility] CLIA [id number] [address] [place] [address] [place] Glucose [Mass/Vol] 124 mg/dL High 74-99 [facility] Comment on above: Order Comment: Alise montejo Type: BLOOD SPECIMEN Ordering Facility: [facility] Address: [address] [place] [address] Result Comment: The [place] Diabetes Association (ADA) provides guidance for cutoff values for fasting glucose and random glucose. The ADA defines fasting as no caloric intake for at least 8 hours. Fasting plasma glucose results between 100 to 125 mg/dL indicate increased risk for diabetes (prediabetes). Fasting plasma glucose results greater than or equal to 126 mg/dL meet the criteria for diagnosis of diabetes. In the absence of unequivocal hyperglycemia, results should be confirmed by repeat testing. In a patient with classic symptoms of hyperglycemia or hyperglycemic crisis, random plasma glucose results greater than or equal to 200 mg/dL meet the criteria for diagnosis of diabetes. Reference: Standards of Medical Care in Diabetes 2016, [place] Diabetes [employer]. Diabetes Care. 2016.39(Suppl 1). Performed By: #### 2 4362-6 #### [facility] CLIA [id number] [address] [place] [id number] [place] Phosphate [Mass/Vol] 4.8 mg/dL Normal 2.7-4.[address] [facility] Comment on above: Order Comment: Alise montejo Type: BLOOD SPECIMEN Ordering Facility: [facility] Address: [address] [place] [address] Performed By: #### 2 4362-6 #### [facility] CLIA [id number] [address] [place] [address] [place] Potassium [Moles/Vol] 5.9 mmol/L High 3.7-5.1 [facility] Comment on above: Order Comment: Speci men Type: BLOOD SPECIMEN Ordering Facility: [facility] Address: [address] [place] [address] Performed By: #### 2 4362-6 #### [facility] CLIA [id number] [address] [place] [address] [place] Sodium [Moles/Vol] 136 mmol/L Normal 136-144 [facility] Comment on above: Order Comment: Speci men Type: BLOOD SPECIMEN Ordering Facility: [facility] Address: [address] [place] [address] Performed By: #### 2 4362-6 #### [facility] CLIA [id number] [address] [place] [address] [place] Urea nitrogen [Mass/Vol] 48 mg/dL High 9-24 [facility] Comment on above: Order Comment: Speci men Type: BLOOD SPECIMEN Ordering Facility: [facility] Address: [address] [place] [address] Performed By: #### 2 4362-6 #### [facility] CLIA [id number] [address] [place] [address] [place] CBC panel Auto (Bld)on 01-11 Erythrocyte distribution width (RBC) [Ratio] 15.9 % High 11.5 - 15.0 % [facility] Hematocrit (Bld) [Volume fraction] 28.4 % Low 39.0 - 51.0 % [facility] Hemoglobin (Bld) [Mass/Vol] 8.7 g/dL Low 13.0 - 17.0 g/dL [facility] Interpretation and review of laboratory results Abnormal [facility] MCH (RBC) [Entitic mass] 28.9 pg 26.0 - 34.0 pg [facility] MCHC (RBC) [Mass/Vol] 30.6 g/dL 30.5 - 36.0 g/dL [facility] MCV (RBC) [Entitic vol] 94.4 fL 80.0 - 100.0 fL [facility] Nucleated RBC (Bld) [#/Vol] NINF [facility] Platelet mean volume (Bld) [Entitic vol] 9.4 fL 9.0 - 12.7 fL [facility] Platelets (Bld) [#/Vol] 318 10*3/uL [facility] RBC (Bld) [#/Vol] 3.01 10*6/uL Low 4.20 - 6.00 m/uL [facility] WBC (Bld) [#/Vol] 7.56 10*3/uL [facility] Erythrocyte distribution width (RBC) [Ratio] 15.9 % High 11.5-15.0 [facility] Comment on above: Order Comment: Alise montejo Type: BLOOD SPECIMEN Ordering Facility: [facility] Address: [address] [place] [address] Performed By: #### 5 8410-2 #### [facility] CLIA [id number] [address] [place] [address] [place] Hematocrit (Bld) [Volume fraction] 28.4 % Low 39.0-51.0 [facility] Comment on above: Order Comment: Alise montejo Type: BLOOD SPECIMEN Ordering Facility: [facility] Address: [address] [place] [address] Performed By: #### 5 8410-2 #### [facility] CLIA [id number] [address] [place] [address] [place] Hemoglobin (Bld) [Mass/Vol] 8.7 g/dL Low 13.0-17.0 [facility] Comment on above: Order Comment: Alishai nikia Type: BLOOD SPECIMEN Ordering Facility: [facility] Address: [address] [place] [address] Performed By: #### 5 8410-2 #### [facility] CLIA [id number] [address] [place] [address] [place] MCH (RBC) [Entitic mass] 28.9 pg Normal 26.0-34.0 [facility] Comment on above: Order Comment: Speci men Type: BLOOD SPECIMEN Ordering Facility: [facility] Address: [address] [place] [address] Performed By: #### 5 8410-2 #### [facility] CLIA [id number] [address] MCHC (RBC) [Mass/Vol] 30.6 g/dL Normal 30.5-36.0 [facility] Comment on above: Order Comment: Speci men Type: BLOOD SPECIMEN Ordering Facility: [facility] Address: [address] [place] [address] Performed By: #### 5 8410-2 #### [facility] CLIA [id number] [address] [place] MCV (RBC) [Entitic vol] 94.4 fL Normal 80.0-100.0 [facility] Comment on above: Order Comment: Speci men Type: BLOOD SPECIMEN Ordering Facility: [facility] Address: [address] [place] [address] Performed By: #### 5 8410-2 #### [facility] CLIA [id number] [address] [place] Nucleated RBC (Bld) [#/Vol] 10*3/uL Normal <0.01 [facility] Comment on above: Order Comment: Speci men Type: BLOOD SPECIMEN Ordering Facility: [facility] Address: [address] [place] [address] Performed By: #### 5 8410-2 #### [facility] CLIA [id number] [address] Platelet mean volume (Bld) [Entitic vol] 9.4 fL Normal 9.0-12.7 [facility] Comment on above: Order Comment: Speci men Type: BLOOD SPECIMEN Ordering Facility: [facility] Address: [address] [place] [address] Performed By: #### 5 8410-2 #### [facility] CLIA [id number] [address] [place] [address] [place] Platelets (Bld) [#/Vol] 318 10*3/uL Normal 150-400 [facility] Comment on above: Order Comment: Speci men Type: BLOOD SPECIMEN Ordering Facility: [facility] Address: [address] [place] [address] Performed By: #### 5 8410-2 #### [facility] CLIA [id number] [address] [place] [address] [place] RBC (Bld) [#/Vol] 3.01 10*6/uL Low 4.20-6.00 [facility] Comment on above: Order Comment: Speci men Type: BLOOD SPECIMEN Ordering Facility: [facility] Address: [address] [place] [address] Performed By: #### 5 8410-2 #### [facility] CLIA [id number] [address] [place] WBC (Bld) [#/Vol] 7.56 10*3/uL Normal 3.70-11.00 [facility] Comment on above: Order Comment: Speci men Type: BLOOD SPECIMEN Ordering Facility: [facility] Address: [address] [place] [address] Performed By: #### 5 8410-2 #### [facility] CLIA [id number] [address] [place] [address] [place] Renal function 2000 panelon 01-12-2024 Albumin [Mass/Vol] 3.3 g/dL Low 3.9 - 4.9 g/dL [facility] Anion gap [Moles/Vol] 9 mmol/L 8 - 15 mmol/L [facility] Calcium [Mass/Vol] 8.1 mg/dL Low 8.5 - 10. 2 mg/dL [facility] Chloride [Moles/Vol] 101 mmol/L 98 - 10 7 mmol/L [facility] CO2 [Moles/Vol] 28 mmol/L 22 - 30 mmol/L [facility] Creatinine [Mass/Vol] 3.88 mg/dL High 0.73 - 1.22 mg/dL [facility] GFR/1.73 sq M.predicted among non-blacks MDRD (S/P/Bld) [Vol rate/Area] 15 mL/min/{1.73_m2} Low - PINF [facility] Comment on above: Estimated Glomerular Filtration Rate (eGFR) is calculated using the 2020 CKD-EPI creatinine equation. This equation utilizes serum creatinine, sex, and age as parameters. The creatinine assay has traceable calibration to isotope dilution-mass spectrometry. Refer to KDIGO guidelines for clinical interpretation. In patients with unstable renal function, e.g. those with acute kidney injury, the eGFR may not accurately reflect actual GFR. Glucose [Mass/Vol] 129 mg/dL High 74 - 99 mg/dL [facility] Comment on above: The [place] Diabete s Association (ADA) provides guidance for cutoff values for fasting glucose and random glucose. The ADA defines fasting as no caloric intake for at least 8 hours. Fasting plasma glucose results between 100 to 125 mg/dL indicate increased risk for diabetes (prediabetes). Fasting plasma glucose results greater than or equal to 126 mg/dL meet the criteria for diagnosis of diabetes. In the absence of unequivocal hyperglycemia, results should be confirmed by repeat testing. In a patient with classic symptoms of hyperglycemia or hyperglycemic crisis, random plasma glucose results greater than or equal to 200 mg/dL meet the criteria for diagnosis of diabetes. Reference: Standards of Medical Care in Diabetes 2016, [place] [employer]. Diabetes Care. 2016.39(Suppl 1). Interpretation and review of laboratory results Abnormal [facility] Phosphate [Mass/Vol] 4.0 mg/dL 2.7 - 4 .8 mg/dL [facility] Potassium [Moles/Vol] 4.7 mmol/L 3.7 - 5.1 mmol/L [facility] Sodium [Moles/Vol] 138 mmol/L 136 - 144 mmol/L [facility] Urea nitrogen [Mass/Vol] 16 mg/dL 9 - 24 mg/dL [facility] Albumin [Mass/Vol] 3.3 g/dL Low 3.9-4.9 [facility] Comment on above: Order Comment: Alise montejo Type: BLOOD SPECIMEN Ordering Facility: [facility] Natacha Waller Address: [address] [place] [address] Performed By: #### 2 4362-6 #### [facility] CLIA [id number] [address] [place] [address] [place] Anion gap [Moles/Vol] 9 mmol/L Normal 8-15 [facility] Comment on above: Order Comment: Speci men Type: BLOOD SPECIMEN Ordering Facility: [facility] Address: [address] [place] [address] Performed By: #### 2 4362-6 #### [facility] CLIA [id number] [address] [place] [address] [place] Calcium [Mass/Vol] 8.1 mg/dL Low 8.5-10.2 [facility] Comment on above: Order Comment: Speci men Type: BLOOD SPECIMEN Ordering Facility: [facility] Address: [address] [place] [address] Performed By: #### 2 4362-6 #### [facility] CLIA [id number] [address] [place] [address] [place] Chloride [Moles/Vol] 101 mmol/L Normal 98-[address] [facility] Comment on above: Order Comment: Speci men Type: BLOOD SPECIMEN Ordering Facility: [facility] Address: [address] [place] [address] Performed By: #### 2 4362-6 #### [facility] CLIA [id number] [address] [place] [address] [place] CO2 [Moles/Vol] 28 mmol/L Normal 22-30 [facility] Comment on above: Order Comment: Speci men Type: BLOOD SPECIMEN Ordering Facility: [facility] Address: [address] [place] [address] Performed By: #### 2 4362-6 #### [facility] CLIA [id number] [address] [place] [address] [place] Creatinine [Mass/Vol] 3.88 mg/dL High 0.73-1.22 [facility] Comment on above: Order Comment: Speci men Type: BLOOD SPECIMEN Ordering Facility: [facility] Address: [address] [place] [address] Performed By: #### 2 4362-6 #### [facility] CLIA [id number] [address] [place] [address] [place] Creatinine and Glomerular filtration rate.predicted panel (S/P/Bld) 15 mL/min/1.73m??? Low >=60 [facility] Comment on above: Order Comment: Alise montejo Type: BLOOD SPECIMEN Ordering Facility: [facility] Address: [address] [place] [address] Result Comment: Anupama mated Glomerular Filtration Rate (eGFR) is calculated using the 2020 CKD-EPI creatinine equation. This equation utilizes serum creatinine, sex, and age as parameters. The creatinine assay has traceable calibration to isotope dilution-mass spectrometry. Refer to KDIGO guidelines for clinical interpretation. In patients with unstable renal function, e.g. those with acute kidney injury, the eGFR may not accurately reflect actual GFR. Performed By: #### 2 4362-6 #### [facility] CLIA [id number] [address] [place] [address] [place] Glucose [Mass/Vol] 129 mg/dL High 74-99 [facility] Comment on above: Order Comment: Alise montejo Type: BLOOD SPECIMEN Ordering Facility: [facility] Address: [address] [place] [address] Result Comment: The [place] Diabetes Association (ADA) provides guidance for cutoff values for fasting glucose and random glucose. The ADA defines fasting as no caloric intake for at least 8 hours. Fasting plasma glucose results between 100 to 125 mg/dL indicate increased risk for diabetes (prediabetes). Fasting plasma glucose results greater than or equal to 126 mg/dL meet the criteria for diagnosis of diabetes. In the absence of unequivocal hyperglycemia, results should be confirmed by repeat testing. In a patient with classic symptoms of hyperglycemia or hyperglycemic crisis, random plasma glucose results greater than or equal to 200 mg/dL meet the criteria for diagnosis of diabetes. Reference: Standards of Medical Care in Diabetes 2016, [place] [employer]. Diabetes Care. 2016.39(Suppl 1). Performed By: #### 2 4362-6 #### [facility] CLIA [id number] [address] [place] [id number] [place] Phosphate [Mass/Vol] 4.0 mg/dL Normal 2.7-4.[address] [facility] Comment on above: Order Comment: Alise montejo Type: BLOOD SPECIMEN Ordering Facility: [facility] Address: [address] [place] [address] Performed By: #### 2 4362-6 #### [facility] CLIA [id number] [address] [place] [address] [place] Potassium [Moles/Vol] 4.7 mmol/L Normal 3.7-5.1 [facility] Comment on above: Order Comment: Speci men Type: BLOOD SPECIMEN Ordering Facility: [facility] Address: [address] [place] [address] Performed By: #### 2 4362-6 #### [facility] CLIA [id number] [address] [place] [address] [place] Sodium [Moles/Vol] 138 mmol/L Normal 136-144 [facility] Comment on above: Order Comment: Speci men Type: BLOOD SPECIMEN Ordering Facility: [facility] Address: [address] [place] [address] Performed By: #### 2 4362-6 #### [facility] CLIA [id number] [address] [place] [address] [place] Urea nitrogen [Mass/Vol] 16 mg/dL Normal 9-24 [facility] Comment on above: Order Comment: Speci men Type: BLOOD SPECIMEN Ordering Facility: [facility] Address: [address] [place] [address] Performed By: #### 2 4362-6 #### [facility] CLIA [id number] [address] [place] [address] [place] Absolute lymphocyte countOrd ered By: ED PROVIDER on 11-13-2023 Lymphocytes Auto (Unsp spec) [#/Vol] 1.82 10*3/uL 0.83-4.51 [facility] Activated partial thrombopla stin time (aPTT) in platelet poor plasma by coagulation aOrdered By: Amanda Frank on 11-13-2023 aPTT Coag (PPP) [Time] 27.9 s 24.1-36.[address] [facility] Automated lymphocyte count a s percentage of total leukocytesOrdered By: ED PROVIDER on 11-13-2023 Lymphocytes/100 WBC Auto (Unsp spec) 19.7 % 19-41 [facility] Basophil percentageOrdered B y: ED PROVIDER on 11-13-2023 Basophils/100 WBC (Bld) 0.7 % 0-1 [facility] Eosinophils/100 WBC (Bld) 2.6 % 0-5 [facility] Hemoglobin (Bld) [Mass/Vol] 11.2 g/dL 13.0-16.5 [facility] Monocytes/100 WBC (Bld) 9.0 % 0-10 [facility] Neutrophils (Bld) [#/Vol] 6.2 10*3/uL 2.0-7.7 [facility] Neutrophils/100 WBC (Bld) 67.3 % 47-70 [facility] WBC (Bld) [#/Vol] 9.2 10*3/uL 4.4-11.0 [facility] Basophil percentageOrdered B y: Emmanuel Salgado on 11-13-2023 Chloride [Moles/Vol] 108 mmol/L 98-107 [facility] Glucose [Mass/Vol] 157 mg/dL 74-106 [facility] Comment on above: Fasting Glucose resu lt greater than or equal to 126 mg/dL suggests DIABETES MELLITUS per A.D.A. criteria. Potassium [Moles/Vol] 4.2 mmol/L 3.5-5.1 [facility] Sodium [Moles/Vol] 140 mmol/L 136-145 [facility] Determination of erythrocyte mean corpuscular volume (MCV)Ordered By: ED PROVIDER on 11-13-2023 MCV (RBC) [Entitic vol] 92.5 fL 80-94 [facility] Erythrocyte distribution wid th ratioOrdered By: ED PROVIDER on 11-13-2023 Erythrocyte distribution width (RBC) [Ratio] 13.5 % 11.6-14.6 [facility] Erythrocyte distribution wid th standard deviationOrdered By: ED PROVIDER on 11-13-2023 Erythrocyte distribution width (RBC) [Entitic vol] 45.9 fL 35.1-43.9 [facility] Hematocrit Auto (Bld) [Volum e fraction]Ordered By: ED PROVIDER on 11-13-2023 Hematocrit (Bld) [Volume fraction] 34.6 % 40-54 [facility] Immature granulocytes/100 WB C Auto (Bld)Ordered By: ED PROVIDER on 11-13-2023 Immature granulocytes/100 WBC (Bld) 0.700 % 0.0-0.9 [facility] Comment on above: IG% - Immature Granu locytes (promyelocytes, myelocytes and metamyelocytes) > 1% indicates that a LEFT SHIFT is Present. Laboratory - Chemistry and C hemistry - challengeOrdered By: Emmanuel Salgado on 11-13-2023 CO2 [Moles/Vol] 20.0 mmol/L 21.0-32.0 [facility] Natriuretic peptide B (Bld) [Mass/Vol] 819.6 pg/mL 0-100 [facility] Urea nitrogen/Creatinine [Mass ratio] 15.3 mg/mg 10-20 [facility] Laboratory - CoagulationOrde red By: Amanda Frank on 11-13-2023 INR Coag (Bld) [Relative time] 1.0 {INR} [facility] PT Coag (PPP) [Time] 13.5 s 11.7-14.9 [facility] Laboratory - Hematology and Cell countsOrdered By: ED PROVIDER on 11-13-2023 MCH (RBC) [Entitic mass] 29.9 pg 27.0-32.0 [facility] MCHC (RBC) [Mass/Vol] 32.4 g/dL 32-36 [facility] Nucleated RBC/100 WBC (Bld) [Ratio] 0 % 0-5 [facility] Platelet mean volume (Bld) [Entitic vol] 10.0 fL 6.2-12.0 [facility] Platelets (Bld) [#/Vol] 289 10*3/uL 150-450 [facility] No Panel InformationOrdered By: Emmanuel Salgado on 11-13-2023 Troponin I High Sensitivity 732 pg/mL 3.0-78.0 [facility] Comment on above: Critical Result(s) C alled at: 12:52:43 11/13/2023 by: Thai Alvarenga to Radha Cormier. Results read back by same. Please Note: New Test Units and Gender Specific Reference Ranges. For more information see Policy Stat Procedure [place] High Sensitivity Troponin (TNIH) and attachments. Estimated Creatinine Clearance Calc 15.49 ml/min [facility] Estimated GFR (MDRD) Amer 18 mL/min >60 [facility] Comment on above: GFR Calc Estimated GFR (MDRD) Non-Af Amer 15 mL/min >60 [facility] Comment on above: Non- GFR Calc RBC Auto (Bld) [#/Vol]Ordere d By: ED PROVIDER on 11-13-2023 RBC (Bld) [#/Vol] 3.74 10*6/uL 4.6-6.2 [facility] Serum or plasma calcium maxine urement (mass/volume)Ordered By: Emmanuel Salgado on 11-13-2023 Calcium [Mass/Vol] 8.6 mg/dL 8.5-10.1 [facility] Serum or plasma creatinine m easurement (mass/volume)Ordered By: Emmanuel Salgado on 11-13-2023 Creatinine [Mass/Vol] 4.19 mg/dL 0.70-1.30 [facility] Comment on above: The validity of the calculated GFR & GFRAA in patients over 70 years has not been determined. Clinical correlation is essential. Serum or plasma urea nitroge n measurement (mass/volume)Ordered By: Emmanuel Salgado on 11-13-2023 Urea nitrogen [Mass/Vol] 64 mg/dL 7-18 [facility] Thin prep Papanicolaou smear with manual screeningOrdered By: Amanda Frank on 11-13-2023 Thin prep Papanicolaou smear with manual screening 256 mg/dL 74-106 [facility] Comment on above: MANAGEMENT OF PATIEN T CARE PER NURSING PROTOCOL Thin prep Papanicolaou smear with manual screeningOrdered By: Emmanuel Salgdao on 11-13-2023 Thin prep Papanicolaou smear with manual screening 12 5-15 [facility] Absolute lymphocyte countOrd ered By: Olena Gabriel on 10-01-2023 Lymphocytes Auto (Unsp spec) [#/Vol] 1.51 10*3/uL 0.83-4.51 [facility] Automated lymphocyte count a s percentage of total leukocytesOrdered By: Olena Gabriel on 10-01-2023 Lymphocytes/100 WBC Auto (Unsp spec) 20.6 % 19-41 [facility] Basophil percentageOrdered B y: Olena Gabriel on 02-26-2024 Basophils/100 WBC (Bld) 1.0 % 0-1 [facility] Bilirubin [Mass/Vol] 0.40 mg/dL 0.20-1.00 [facility] Comment on above: For patients on eltr ombopag therapy, use of Dimension [place] TBIL is not recommended. Chloride [Moles/Vol] 108 mmol/L 98-107 [facility] Cholesterol [Mass/Vol] 264 mg/dL <[address] [facility] Comment on above: <200 mg/dL Desirable 200-240 mg/dL Borderline >240 mg/dL High Risk Eosinophils/100 WBC (Bld) 5.6 % 0-5 [facility] Glucose [Mass/Vol] 147 mg/dL 74-106 [facility] Comment on above: Fasting Glucose resu lt greater than or equal to 126 mg/dL suggests DIABETES MELLITUS per A.D.A. criteria. Hemoglobin (Bld) [Mass/Vol] 12.2 g/dL 13.0-16.5 [facility] Monocytes/100 WBC (Bld) 8.4 % 0-10 [facility] Neutrophils (Bld) [#/Vol] 4.7 10*3/uL 2.0-7.7 [facility] Neutrophils/100 WBC (Bld) 64.1 % 47-70 [facility] Potassium [Moles/Vol] 4.5 mmol/L 3.5-5.1 [facility] Protein [Mass/Vol] 7.3 g/dL 6.4-8.2 [facility] Sodium [Moles/Vol] 139 mmol/L 136-145 [facility] Triglyceride [Mass/Vol] 360 mg/dL <199 [facility] Comment on above: The drugs N-Acetylcy steine and Metamizole may falsely depress this assay.Serum Triglycerides Reference Interval Normal <150 mg/dL Borderline high 150 - 199 mg/dL High 200 - 499 mg/dL Very High > or = 500 mg/dL WBC (Bld) [#/Vol] 7.3 10*3/uL 4.4-11.0 [facility] Determination of erythrocyte mean corpuscular volume (MCV)Ordered By: Olena Gabriel on 10-01-2023 MCV (RBC) [Entitic vol] 93.3 fL 80-94 [facility] Erythrocyte distribution wid th ratioOrdered By: Olena Gabriel on 10-01-2023 Erythrocyte distribution width (RBC) [Ratio] 13.5 % 11.6-14.6 [facility] Erythrocyte distribution wid th standard deviationOrdered By: Olena Gabriel on 10-01-2023 Erythrocyte distribution width (RBC) [Entitic vol] 46.6 fL 35.1-43.9 [facility] Hematocrit Auto (Bld) [Volum e fraction]Ordered By: Olena Gabriel on 10-01-2023 Hematocrit (Bld) [Volume fraction] 37.6 % 40-54 [facility] Immature granulocytes/100 WB C Auto (Bld)Ordered By: Olena Gabriel on 10-01-2023 Immature granulocytes/100 WBC (Bld) 0.300 % 0.0-0.9 [facility] Comment on above: IG% - Immature Granu locytes (promyelocytes, myelocytes and metamyelocytes) > 1% indicates that a LEFT SHIFT is Present. Laboratory - Chemistry and C hemistry - challengeOrdered By: Olena Gabriel on 10-01-2023 Albumin/Globulin [Mass ratio] 0.9 {ratio} 0.9-2.4 [facility] ALP [Catalytic activity/Vol] 90 U/L 45-117 [facility] ALT [Catalytic activity/Vol] 16 U/L 16-61 [facility] Cholesterol in HDL [Mass/Vol] 54 mg/dL >40 [facility] Comment on above: The drugs N-Acetylcy steine and Metamizole may falsely depress this assay. Reference Range HDL <40 mg/dL Low HDL Cholesterol HDL >or= 60 mg/dL High HDL Cholesterol Cholesterol in LDL [Mass/Vol] 138 mg/dL 0-130 [facility] CO2 [Moles/Vol] 25.0 mmol/L 21.0-32.0 [facility] Globulin (S) [Mass/Vol] 3.9 g/dL 2.2-4.2 [facility] Urea nitrogen/Creatinine [Mass ratio] 12.1 mg/mg 10-20 [facility] Laboratory - Hematology and Cell countsOrdered By: Olena Gabriel on 10-01-2023 MCH (RBC) [Entitic mass] 30.3 pg 27.0-32.0 [facility] MCHC (RBC) [Mass/Vol] 32.4 g/dL 32-36 [facility] Nucleated RBC/100 WBC (Bld) [Ratio] 0 % 0-5 [facility] Platelet mean volume (Bld) [Entitic vol] 10.4 fL 6.2-12.0 [facility] Platelets (Bld) [#/Vol] 285 10*3/uL 150-450 [facility] No Panel InformationOrdered By: Olena Gabriel on 10-01-2023 Estimated GFR (MDRD) Amer 22 mL/min >60 [facility] Comment on above: GFR Calc Estimated GFR (MDRD) Non-Af Amer 18 mL/min >60 [facility] Comment on above: Non- GFR Calc Prostate Specific Antigen Screen 8.11 ng/mL 0.00-4.00 [facility] Comment on above: This test was perfor med using the TPSA assay method for [facility] chemistry system. Values obtained with differentassay methods cannot be used interchangably.When changing PSA assays in the course of monitoring apatient, additional sequential testing should be carriedout to confirm baseline values. VLDL Cholesterol 72 mg/dL 5-40 [facility] RBC Auto (Bld) [#/Vol]Ordere d By: Olena Gabriel on 10-01-2023 RBC (Bld) [#/Vol] 4.03 10*6/uL 4.6-6.2 [facility] Serum or plasma calcium maxine urement (mass/volume)Ordered By: Olena Gabriel on 10-01-2023 Calcium [Mass/Vol] 9.2 mg/dL 8.5-10.1 [facility] Serum or plasma creatinine m easurement (mass/volume)Ordered By: Olena Gabriel on 10-01-2023 Creatinine [Mass/Vol] 3.47 mg/dL 0.70-1.30 [facility] Comment on above: The validity of the calculated GFR & GFRAA in patients over 70 years has not been determined. Clinical correlation is essential. Serum or plasma urea nitroge n measurement (mass/volume)Ordered By: Olena Gabriel on 10-01-2023 Urea nitrogen [Mass/Vol] 42 mg/dL 7-18 [facility] Thin prep Papanicolaou smear with manual screeningOrdered By: Olena Gabriel on 10-01-2023 Thin prep Papanicolaou smear with manual screening 3.4 g/dL 3.2-5.0 [facility] Thin prep Papanicolaou smear with manual screening 14 U/L 15-37 [facility] Thin prep Papanicolaou smear with manual screening 6 5-15 [facility] Whole blood hemoglobin A1c/t otal hemoglobin ratio (mass fraction)Ordered By: Olena Gabriel on 10-01-2023 HbA1c (Bld) [Mass fraction] 6.6 % 3.8-5.6 [facility] Comment on above: Normal < 5.7 % Predi abetic 5.7 - 6.4 % Diabetic >or= 6.5 % Please note range changes. Absolute lymphocyte countOrd ered By: Olena Gabriel on 03-14-2023 Lymphocytes Auto (Unsp spec) [#/Vol] 1.20 10*3/uL 0.83-4.51 [facility] Basophil percentageOrdered B y: Olena Gabriel on 03-14-2023 Basophils/100 WBC (Bld) 0.7 % 0-1 [facility] Bilirubin [Mass/Vol] 0.40 mg/dL 0.20-1.00 [facility] Comment on above: For patients on eltr ombopag therapy, use of Dimension [place] TBIL is not recommended. Chloride [Moles/Vol] 106 mmol/L 98-107 [facility] Cholesterol [Mass/Vol] 213 mg/dL <[address] [facility] Comment on above: <200 mg/dL Desirable 200-240 mg/dL Borderline >240 mg/dL High Risk Eosinophils/100 WBC (Bld) 5.8 % 0-5 [facility] Glucose [Mass/Vol] 155 mg/dL 74-106 [facility] Comment on above: Fasting Glucose resu lt greater than or equal to 126 mg/dL suggests DIABETES MELLITUS per A.D.A. criteria. Neutrophils (Bld) [#/Vol] 3.9 10*3/uL 2.0-7.7 [facility] Neutrophils/100 WBC (Bld) 64.8 % 47-70 [facility] Potassium [Moles/Vol] 4.9 mmol/L 3.5-5.1 [facility] Protein [Mass/Vol] 7.3 g/dL 6.4-8.2 [facility] Sodium [Moles/Vol] 139 mmol/L 136-145 [facility] Triglyceride [Mass/Vol] 237 mg/dL <199 [facility] Comment on above: The drugs N-Acetylcy steine and Metamizole may falsely depress this assay.Serum Triglycerides Reference Interval Normal <150 mg/dL Borderline high 150 - 199 mg/dL High 200 - 499 mg/dL Very High > or = 500 mg/dL WBC (Bld) [#/Vol] 6.1 10*3/uL 4.4-11.0 [facility] Blood erythrocytes count (nu mber/volume)Ordered By: Olena Gabriel on 03-14-2023 RBC (Bld) [#/Vol] 4.41 10*6/uL 4.6-6.2 [facility] Blood hemoglobin measurement (mass/volume)Ordered By: Olena Gabriel on 03-14-2023 Hemoglobin (Bld) [Mass/Vol] 13.1 g/dL 13.0-16.5 [facility] Blood lymphocytes/100 leukoc ytesOrdered By: Olena Gabriel on 03-14-2023 Lymphocytes/100 WBC (Bld) 19.8 % 19-41 [facility] Blood monocytes/100 leukocyt esOrdered By: Olena Gabriel on 03-14-2023 Monocytes/100 WBC (Bld) 8.7 % 0-10 [facility] Blood platelet mean volumeOr dered By: Olena Gabriel on 03-14-2023 Platelet mean volume (Bld) [Entitic vol] 10.8 fL 6.2-12.0 [facility] Determination of erythrocyte mean corpuscular volume (MCV)Ordered By: Olena Gabriel on 03-14-2023 MCV (RBC) [Entitic vol] 93.9 fL 80-94 [facility] Hematocrit Auto (Bld) [Volum e fraction]Ordered By: Olena Gabriel on 03-14-2023 Hematocrit (Bld) [Volume fraction] 41.4 % 40-54 [facility] Laboratory - Chemistry and C hemistry - challengeOrdered By: Olena Gabriel on 03-14-2023 ALP [Catalytic activity/Vol] 85 U/L 45-117 [facility] ALT [Catalytic activity/Vol] 15 U/L 16-61 [facility] CO2 [Moles/Vol] 25.0 mmol/L 21.0-32.0 [facility] Globulin (S) [Mass/Vol] 3.9 g/dL 2.2-4.2 [facility] Urea nitrogen/Creatinine [Mass ratio] 15.6 mg/mg 10-20 [facility] Laboratory - Hematology and Cell countsOrdered By: Olena Gabriel on 03-14-2023 Erythrocyte distribution width (RBC) [Entitic vol] 48.1 fL 35.1-43.9 [facility] Erythrocyte distribution width (RBC) [Ratio] 13.8 % 11.6-14.6 [facility] Immature granulocytes/100 WBC (Bld) 0.200 % 0.0-0.9 [facility] Comment on above: IG% - Immature Granu locytes (promyelocytes, myelocytes and metamyelocytes) > 1% indicates that a LEFT SHIFT is Present. MCH (RBC) [Entitic mass] 29.7 pg 27.0-32.0 [facility] Nucleated RBC/100 WBC (Bld) [Ratio] 0 % 0-5 [facility] MCHC Auto (RBC) [Mass/Vol]Or dered By: Olena Gabriel on 03-14-2023 MCHC (RBC) [Mass/Vol] 31.6 g/dL 32-36 [facility] No Panel InformationOrdered By: Olena Gabriel on 03-14-2023 Anti-Gliadin IgA Antibody 5 units 0-19 [facility] Comment on above: Negative 0 - 19 Weak Positive 20 - 30 Moderate to Strong Positive >30 Anti-Gliadin IgG Antibody 25 units 0-19 [facility] Comment on above: Negative 0 - 19 Weak Positive 20 - 30 Moderate to Strong Positive >30 Endomysial IgA Antibody Negative Negative [facility] Estimated GFR (MDRD) Amer 31 mL/min >60 [facility] Comment on above: GFR Calc Estimated GFR (MDRD) Non-Af Amer 25 mL/min >60 [facility] Comment on above: Non- GFR Calc Thyroid Stimulating Hormone (TSH) 1.45 uIU/mL 0.358-3.74 [facility] Tissue Transglutaminase IgG Ab 9 U/mL 0-5 [facility] Comment on above: Negative 0 - 5 Weak Positive 6 - 9 Positive >9 Platelets bldOrdered By: Santos Gabriel on 03-14-2023 Platelets (Bld) [#/Vol] 216 10*3/uL 150-450 [facility] Serum IgA measurement (units /volume)Ordered By: Olena Gabriel on 03-14-2023 IgA Qn (S) 240 mg/dL 61-437 [facility] Comment on above: Performed at: [place] [id number] Director: Jaiden Enriquez PhD, Phone: [phone] Serum or plasma albumin maxine urement (mass/volume)Ordered By: Olena Gabriel on 03-14-2023 Albumin [Mass/Vol] 3.4 g/dL 3.2-5.0 [facility] Serum or plasma albumin/glob ulin mass ratioOrdered By: Olena Gabriel on 03-14-2023 Albumin/Globulin [Mass ratio] 0.9 {ratio} 0.9-2.4 [facility] Serum or plasma calcium maxine urement (mass/volume)Ordered By: Olena Gabriel on 03-14-2023 Calcium [Mass/Vol] 8.6 mg/dL 8.5-10.1 [facility] Serum or plasma cholesterol in HDL measurement (mass/volume)Ordered By: Olena Gabriel on 03-14-2023 Cholesterol in HDL [Mass/Vol] 49 mg/dL >40 [facility] Comment on above: The drugs N-Acetylcy steine and Metamizole may falsely depress this assay. Reference Range HDL <40 mg/dL Low HDL Cholesterol HDL >or= 60 mg/dL High HDL Cholesterol Serum or plasma cholesterol in VLDL measurement (mass/volume)Ordered By: Olena Gabriel on 03-14-2023 Cholesterol in VLDL [Mass/Vol] 47 mg/dL 5-40 [facility] Serum or plasma creatinine m easurement (mass/volume)Ordered By: Olena Gabriel on 03-14-2023 Creatinine [Mass/Vol] 2.62 mg/dL 0.70-1.30 [facility] Comment on above: The validity of the calculated GFR & GFRAA in patients over 70 years has not been determined. Clinical correlation is essential. Serum or plasma low density lipoprotein (LDL) cholesterol measurement (mass/volume)Ordered By: Olena Gabriel on 03-14-2023 Cholesterol in LDL [Mass/Vol] 117 mg/dL 0-130 [facility] Serum or plasma urea nitroge n measurement (mass/volume)Ordered By: Olena Gabriel on 03-14-2023 Urea nitrogen [Mass/Vol] 41 mg/dL 7-18 [facility] Serum tissue transglutaminas e IgA antibody assay (units/volume)Ordered By: Olena Gabriel on 03-14-2023 tTG IgA Qn (S) <2 U/mL 0-3 [facility] Comment on above: Negative 0 - 3 Weak Positive 4 - 10 Positive >10 Tissue Transglutaminase (tTG) has been identified as the endomysial antigen. Studies have demonstr- ated that endomysial IgA antibodies have over 99% specificity for gluten sensitive enteropathy. Thin prep Papanicolaou smear with manual screeningOrdered By: Olena Gabriel on 03-14-2023 Thin prep Papanicolaou smear with manual screening 11 U/L 15-37 [facility] Thin prep Papanicolaou smear with manual screening 8 5-15 [facility] Whole blood hemoglobin A1c/t otal hemoglobin ratio (mass fraction)Ordered By: Olena Gabriel on 03-14-2023 HbA1c (Bld) [Mass fraction] 6.5 % 3.8-5.6 [facility] Comment on above: Normal < 5.7 % Predi abetic 5.7 - 6.4 % Diabetic >or= 6.5 % Please note range changes. Basophil percentageOrdered B y: Olena Gabriel on 09-25-2022 Bilirubin [Mass/Vol] 0.30 mg/dL 0.20-1.00 [facility] Comment on above: For patients on eltr ombopag therapy, use of Dimension [place] TBIL is not recommended. Chloride [Moles/Vol] 105 mmol/L 98-[address] [facility] Glucose [Mass/Vol] 171 mg/dL 74-106 [facility] Comment on above: Fasting Glucose resu lt greater than or equal to 126 mg/dL suggests DIABETES MELLITUS per A.D.A. criteria. Potassium [Moles/Vol] 4.6 mmol/L 3.5-5.1 [facility] Protein [Mass/Vol] 7.4 g/dL 6.4-8.2 [facility] Sodium [Moles/Vol] 138 mmol/L 136-145 [facility] Laboratory - Chemistry and C hemistry - challengeOrdered By: Olena Gabriel on 09-25-2022 ALP [Catalytic activity/Vol] 89 U/L 45-117 [facility] ALT [Catalytic activity/Vol] 16 U/L 16-61 [facility] CO2 [Moles/Vol] 28.0 mmol/L 21.0-32.0 [facility] Globulin (S) [Mass/Vol] 4.0 g/dL 2.2-4.2 [facility] Urea nitrogen/Creatinine [Mass ratio] 15.8 mg/mg 10-20 [facility] No Panel InformationOrdered By: Olena Gabriel on 09-25-2022 Estimated GFR (MDRD) Amer 31 mL/min >60 [facility] Comment on above: GFR Calc Estimated GFR (MDRD) Non-Af Amer 26 mL/min >60 [facility] Comment on above: Non- GFR Calc Serum or plasma albumin maxine urement (mass/volume)Ordered By: Olena Gabriel on 09-25-2022 Albumin [Mass/Vol] 3.4 g/dL 3.2-5.0 [facility] Serum or plasma albumin/glob ulin mass ratioOrdered By: Olena Gabriel on 09-25-2022 Albumin/Globulin [Mass ratio] 0.8 {ratio} 0.9-2.4 [facility] Serum or plasma calcium maxine urement (mass/volume)Ordered By: Olena Gabriel on 09-25-2022 Calcium [Mass/Vol] 9.1 mg/dL 8.5-10.1 [facility] Serum or plasma creatinine m easurement (mass/volume)Ordered By: Olena Gabriel on 02-20-2023 Creatinine [Mass/Vol] 2.59 mg/dL 0.70-1.30 [facility] Comment on above: The validity of the calculated GFR & GFRAA in patients over 70 years has not been determined. Clinical correlation is essential. Serum or plasma urea nitroge n measurement (mass/volume)Ordered By: Olena Gabriel on 09-25-2022 Urea nitrogen [Mass/Vol] 41 mg/dL 7-18 [facility] Thin prep Papanicolaou smear with manual screeningOrdered By: Olena Gabriel on 09-25-2022 Thin prep Papanicolaou smear with manual screening 19 U/L 15-37 [facility] Thin prep Papanicolaou smear with manual screening 5 5-15 [facility] Whole blood hemoglobin A1c/t otal hemoglobin ratio (mass fraction)Ordered By: Olena Gabriel on 09-25-2022 HbA1c (Bld) [Mass fraction] 7.0 % 3.8-5.6 [facility] Comment on above: Normal < 5.7 % Predi abetic 5.7 - 6.4 % Diabetic >or= 6.5 % Please note range changes. Absolute lymphocyte counton 05-10-2022 Lymphocytes Auto (Unsp spec) [#/Vol] 1.55 10*3/uL 0.83-4.51 [facility] Work Phone: Basophil percentageon 2021 Basophils/100 WBC (Bld) 0.7 % 0-1 [facility] Work Phone: Bilirubin [Mass/Vol] 0.30 mg/dL 0.20-1.00 [facility] Work Phone: Comment on above: For patients on eltr ombopag therapy, use of Dimension [place] TBIL is not recommended. Chloride [Moles/Vol] 106 mmol/L 98-107 [facility] Work Phone: Cholesterol [Mass/Vol] 260 mg/dL <[address] [facility] Work Phone: Comment on above: <200 mg/dL Desirable 200-240 mg/dL Borderline >240 mg/dL High Risk Eosinophils/100 WBC (Bld) 3.4 % 0-5 [facility] Work Phone: Glucose [Mass/Vol] 200 mg/dL 74-106 [facility] Work Phone: Comment on above: Glucose result great er than or equal to 200 mg/dLsuggests DIABETES MELLITUS per A.D.A. criteria. Neutrophils (Bld) [#/Vol] 4.7 10*3/uL 2.0-7.7 [facility] Work Phone: Neutrophils/100 WBC (Bld) 66.1 % 47-70 [facility] Work Phone: Potassium [Moles/Vol] 4.5 mmol/L 3.5-5.1 [facility] Work Phone: Protein [Mass/Vol] 7.5 g/dL 6.4-8.2 [facility] Work Phone: Sodium [Moles/Vol] 138 mmol/L 136-145 [facility] Work Phone: Triglyceride [Mass/Vol] 426 mg/dL <199 [facility] Work Phone: Comment on above: The drugs N-Acetylcy steine and Metamizole may falsely depress this assay. TRIGLYCERIDE IS GREATER THAN 400 mg/dL. LDL RESULT IS INVALID AND WILL NOT BE REPORTED.Serum Triglycerides Reference Interval Normal <150 mg/dL Borderline high 150 - 199 mg/dL High 200 - 499 mg/dL Very High > or = 500 mg/dL WBC (Bld) [#/Vol] 7.2 10*3/uL 4.4-11.0 [facility] Work Phone: Blood erythrocytes count (nu mber/volume)on 05-10-2022 RBC (Bld) [#/Vol] 4.54 10*6/uL 4.6-6.2 [facility] Work Phone: Blood hemoglobin measurement (mass/volume)on 05-10-2022 Hemoglobin (Bld) [Mass/Vol] 13.5 g/dL 13.0-16.5 [facility] Work Phone: Blood lymphocytes/100 leukoc yteson 10-05-2022 Lymphocytes/100 WBC (Bld) 21.7 % 19-41 [facility] Work Phone: [phone] Blood monocytes/100 leukocyt eson 05-10-2022 Monocytes/100 WBC (Bld) 8.0 % 0-10 [facility] Work Phone: Blood platelet mean volumeon 05-10-2022 Platelet mean volume (Bld) [Entitic vol] 10.8 fL 6.2-12.0 [facility] Work Phone: Determination of erythrocyte mean corpuscular volume (MCV)on 05-10-2022 MCV (RBC) [Entitic vol] 90.1 fL 80-94 [facility] Work Phone: Hematocrit Auto (Bld) [Volum e fraction]on 05-10-2022 Hematocrit (Bld) [Volume fraction] 40.9 % 40-54 [facility] Work Phone: Laboratory - Chemistry and C hemistry - challengeon 05-10-2022 ALP [Catalytic activity/Vol] 91 U/L 45-117 [facility] Work Phone: ALT [Catalytic activity/Vol] 17 U/L 16-61 [facility] Work Phone: CO2 [Moles/Vol] 26.0 mmol/L 21.0-32.0 [facility] Work Phone: Globulin (S) [Mass/Vol] 4.0 g/dL 2.2-4.2 [facility] Work Phone: Urea nitrogen/Creatinine [Mass ratio] 14.0 mg/mg 10-20 [facility] Work Phone: Laboratory - Hematology and Cell countson 05-10-2022 Erythrocyte distribution width (RBC) [Entitic vol] 46.2 fL 35.1-43.9 [facility] Work Phone: Erythrocyte distribution width (RBC) [Ratio] 14.0 % 11.6-14.6 [facility] Work Phone: Immature granulocytes/100 WBC (Bld) 0.100 % 0.0-0.9 [facility] Work Phone: Comment on above: IG% - Immature Granu locytes (promyelocytes, myelocytes and metamyelocytes) > 1% indicates that a LEFT SHIFT is Present. MCH (RBC) [Entitic mass] 29.7 pg 27.0-32.0 [facility] Work Phone: Nucleated RBC/100 WBC (Bld) [Ratio] 0 % 0-5 [facility] Work Phone: MCHC Auto (RBC) [Mass/Vol]on 05-10-2022 MCHC (RBC) [Mass/Vol] 33.0 g/dL 32-36 [facility] Work Phone: No Panel Informationon 05-10 Estimated GFR (MDRD) Amer 35 mL/min >60 [facility] Work Phone: Comment on above: GFR Calc Estimated GFR (MDRD) Non-Af Amer 29 mL/min >60 [facility] Work Phone: Comment on above: Non- GFR Calc Platelets bldon 05-10-2022 Platelets (Bld) [#/Vol] 223 10*3/uL 150-450 [facility] Work Phone: Serum or plasma albumin maxine urement (mass/volume)on 05-10-2022 Albumin [Mass/Vol] 3.5 g/dL 3.2-5.0 [facility] Work Phone: Serum or plasma albumin/glob ulin mass ratioon 05-10-2022 Albumin/Globulin [Mass ratio] 0.9 {ratio} 0.9-2.4 [facility] Work Phone: Serum or plasma calcium maxine urement (mass/volume)on 05-10-2022 Calcium [Mass/Vol] 9.5 mg/dL 8.5-10.1 [facility] Work Phone: Serum or plasma cholesterol in HDL measurement (mass/volume)on 05-10-2022 Cholesterol in HDL [Mass/Vol] 47 mg/dL >40 [facility] Work Phone: Comment on above: The drugs N-Acetylcy steine and Metamizole may falsely depress this assay. Reference Range HDL <40 mg/dL Low HDL Cholesterol HDL >or= 60 mg/dL High HDL Cholesterol Serum or plasma cholesterol in VLDL measurement (mass/volume)on 05-10-2022 Cholesterol in VLDL [Mass/Vol] [facility] Work Phone: Comment on above: Test not performed Serum or plasma creatinine m easurement (mass/volume)on 05-10-2022 Creatinine [Mass/Vol] 2.35 mg/dL 0.70-1.30 [facility] Work Phone: Comment on above: The validity of the calculated GFR & GFRAA in patients over 70 years has not been determined. Clinical correlation is essential. Serum or plasma low density lipoprotein (LDL) cholesterol measurement (mass/volume)on 05-10-2022 Cholesterol in LDL [Mass/Vol] [facility] Work Phone: Comment on above: Test not performed Serum or plasma urea nitroge n measurement (mass/volume)on 05-10-2022 Urea nitrogen [Mass/Vol] 33 mg/dL 7-18 [facility] Work Phone: Thin prep Papanicolaou smear with manual screeningon 05-10-2022 Thin prep Papanicolaou smear with manual screening 17 U/L 15-37 [facility] Work Phone: Thin prep Papanicolaou smear with manual screening 6 5-15 [facility] Work Phone: Whole blood hemoglobin A1c/t otal hemoglobin ratio (mass fraction)on 05-10-2022 HbA1c (Bld) [Mass fraction] 7.7 % 3.8-5.6 [facility] Work Phone: Comment on above: Normal < 5.7 % Predi abetic 5.7 - 6.4 % Diabetic >or= 6.5 % Please note range changes. Glucose Glucometer (BldC) [M ass/Vol]on 02-23-2022 Glucose [Mass/Vol] 187 mg/dL 74-106 [facility] Work Phone: Comment on above: MANAGEMENT OF PATIEN T CARE PER NURSING PROTOCOL Basophil percentageon 2021 Bilirubin [Mass/Vol] 0.30 mg/dL 0.20-1.00 [facility] Work Phone: Comment on above: For patients on eltr ombopag therapy, use of Dimension [place] TBIL is not recommended. Chloride [Moles/Vol] 106 mmol/L 98-107 [facility] Work Phone: Glucose [Mass/Vol] 257 mg/dL 74-106 [facility] Work Phone: Comment on above: Glucose result great er than or equal to 200 mg/dLsuggests DIABETES MELLITUS per A.D.A. criteria. Potassium [Moles/Vol] 4.2 mmol/L 3.5-5.1 [facility] Work Phone: Protein [Mass/Vol] 7.6 g/dL 6.4-8.2 [facility] Work Phone: Sodium [Moles/Vol] 138 mmol/L 136-145 [facility] Work Phone: WBC (Bld) [#/Vol] 6.6 10*3/uL 4.4-11.0 [facility] Work Phone: Blood erythrocytes count (nu mber/volume)on 02-16-2022 RBC (Bld) [#/Vol] 4.59 10*6/uL 4.6-6.2 [facility] Work Phone: Blood hemoglobin measurement (mass/volume)on 02-16-2022 Hemoglobin (Bld) [Mass/Vol] 13.9 g/dL 13.0-16.5 [facility] Work Phone: Blood platelet mean volumeon 02-16-2022 Platelet mean volume (Bld) [Entitic vol] 10.5 fL 6.2-12.0 [facility] Work Phone: Determination of erythrocyte mean corpuscular volume (MCV)on 02-16-2022 MCV (RBC) [Entitic vol] 91.9 fL 80-94 [facility] Work Phone: Direct bilirubinon 2 Bilirubin.direct [Mass/Vol] 0.11 mg/dL 0.00-0.30 [facility] Work Phone: Hematocrit Auto (Bld) [Volum e fraction]on 02-16-2022 Hematocrit (Bld) [Volume fraction] 42.2 % 40-54 [facility] Work Phone: INR in Blood by Coagulation assayon 02-16-2022 INR Coag (Bld) [Relative time] 1.0 {INR} [facility] Work Phone: Laboratory - Chemistry and C hemistry - challengeon 02-16-2022 ALP [Catalytic activity/Vol] 91 U/L 45-117 [facility] Work Phone: ALT [Catalytic activity/Vol] 18 U/L 16-61 [facility] Work Phone: CO2 [Moles/Vol] 26.0 mmol/L 21.0-32.0 [facility] Work Phone: Globulin (S) [Mass/Vol] 4.1 g/dL 2.2-4.2 [facility] Work Phone: Urea nitrogen/Creatinine [Mass ratio] 13.4 mg/mg 10-20 [facility] Work Phone: Laboratory - Coagulationon 0 02-16-2022 aPTT Coag (Bld) [Time] 27.3 s 24.1-36.2 [facility] Work Phone: PT Coag (PPP) [Time] 12.4 s 11.7-14.[address] [facility] Work Phone: Laboratory - Hematology and Cell countson 02-16-2022 Erythrocyte distribution width (RBC) [Entitic vol] 45.0 fL 35.1-43.9 [facility] Work Phone: Erythrocyte distribution width (RBC) [Ratio] 13.2 % 11.6-14.6 [facility] Work Phone: MCH (RBC) [Entitic mass] 30.3 pg 27.0-32.0 [facility] Work Phone: MCHC Auto (RBC) [Mass/Vol]on 02-16-2022 MCHC (RBC) [Mass/Vol] 32.9 g/dL 32-36 [facility] Work Phone: No Panel Informationon 02-16 Estimated GFR (MDRD) Amer 36 mL/min >60 [facility] Work Phone: Comment on above: GFR Calc Estimated GFR (MDRD) Non-Af Amer 30 mL/min >60 [facility] Work Phone: Comment on above: Non- GFR Calc Platelets bldon 02-16-2022 Platelets (Bld) [#/Vol] 256 10*3/uL 150-450 [facility] Work Phone: Serum or plasma albumin maxien urement (mass/volume)on 02-16-2022 Albumin [Mass/Vol] 3.5 g/dL 3.2-5.0 [facility] Work Phone: Serum or plasma calcium maxine urement (mass/volume)on 02-16-2022 Calcium [Mass/Vol] 9.4 mg/dL 8.5-10.1 [facility] Work Phone: Serum or plasma creatinine m easurement (mass/volume)on 02-16-2022 Creatinine [Mass/Vol] 2.31 mg/dL 0.70-1.30 [facility] Work Phone: Comment on above: The validity of the calculated GFR & GFRAA in patients over 70 years has not been determined. Clinical correlation is essential. Serum or plasma urea nitroge n measurement (mass/volume)on 02-16-2022 Urea nitrogen [Mass/Vol] 31 mg/dL 7-18 [facility] Work Phone: Thin prep Papanicolaou smear with manual screeningon 02-16-2022 Thin prep Papanicolaou smear with manual screening 12 U/L 15-37 [facility] Work Phone: Thin prep Papanicolaou smear with manual screening 6 5-15 [facility] Work Phone: Whole blood hemoglobin A1c/t otal hemoglobin ratio (mass fraction)on 02-16-2022 HbA1c (Bld) [Mass fraction] 8.1 % 3.8-5.6 [facility] Work Phone: Comment on above: Normal < 5.7 % Predi abetic 5.7 - 6.4 % Diabetic >or= 6.5 % Please note range changes. Absolute lymphocyte counton 10-19-2021 Lymphocytes Auto (Unsp spec) [#/Vol] 1.40 10*3/uL 0.83-4.51 [facility] Work Phone: Basophil percentageon 2021 Basophils/100 WBC (Bld) 0.8 % 0-1 [facility] Work Phone: Bilirubin [Mass/Vol] 0.50 mg/dL 0.20-1.00 [facility] Work Phone: Comment on above: For patients on eltr ombopag therapy, use of Dimension [place] TBIL is not recommended. Chloride [Moles/Vol] 104 mmol/L 98-107 [facility] Work Phone: Eosinophils/100 WBC (Bld) 3.9 % 0-5 [facility] Work Phone: Glucose [Mass/Vol] 185 mg/dL 74-106 [facility] Work Phone: Comment on above: Fasting Glucose resu lt greater than or equal to 126 mg/dL suggests DIABETES MELLITUS per A.D.A. criteria. Neutrophils (Bld) [#/Vol] 4.7 10*3/uL 2.0-7.7 [facility] Work Phone: Neutrophils/100 WBC (Bld) 65.6 % 47-70 [facility] Work Phone: Potassium [Moles/Vol] 4.6 mmol/L 3.5-5.1 [facility] Work Phone: Protein [Mass/Vol] 7.6 g/dL 6.4-8.2 [facility] Work Phone: Sodium [Moles/Vol] 139 mmol/L 136-145 [place] [facility] Work Phone: WBC (Bld) [#/Vol] 7.1 10*3/uL 4.4-11.0 [place] [facility] Work Phone: Blood erythrocytes count (nu mber/volume)on 10-19-2021 RBC (Bld) [#/Vol] 4.60 10*6/uL 4.6-6.2 [place] [facility] Work Phone: Blood hemoglobin measurement (mass/volume)on 10-19-2021 Hemoglobin (Bld) [Mass/Vol] 13.9 g/dL 13.0-16.5 [facility] Work Phone: Blood lymphocytes/100 leukoc yteson 10-19-2021 Lymphocytes/100 WBC (Bld) 19.7 % 19-41 [facility] Work Phone: Blood monocytes/100 leukocyt eson 10-19-2021 Monocytes/100 WBC (Bld) 9.9 % 0-10 [facility] Work Phone: [phone] Blood platelet mean volumeon 10-19-2021 Platelet mean volume (Bld) [Entitic vol] 10.8 fL 6.2-12.0 [facility] Work Phone: Determination of erythrocyte mean corpuscular volume (MCV)on 10-19-2021 MCV (RBC) [Entitic vol] 89.1 fL 80-94 [facility] Work Phone: Hematocrit Auto (Bld) [Volum e fraction]on 10-19-2021 Hematocrit (Bld) [Volume fraction] 41.0 % 40-54 [facility] Work Phone: Laboratory - Chemistry and C hemistry - challengeon 10-19-2021 ALP [Catalytic activity/Vol] 96 U/L 45-117 [facility] Work Phone: ALT [Catalytic activity/Vol] 20 U/L 16-61 [facility] Work Phone: CO2 [Moles/Vol] 27.0 mmol/L 21.0-32.0 [facility] Work Phone: Globulin (S) [Mass/Vol] 3.8 g/dL 2.2-4.2 [facility] Work Phone: Urea nitrogen/Creatinine [Mass ratio] 12.0 mg/mg 10-20 [facility] Work Phone: Laboratory - Hematology and Cell countson 10-19-2021 Erythrocyte distribution width (RBC) [Entitic vol] 44.6 fL 35.1-43.9 [facility] Work Phone: Erythrocyte distribution width (RBC) [Ratio] 13.6 % 11.6-14.6 [facility] Work Phone: Immature granulocytes/100 WBC (Bld) 0.100 % 0.0-0.9 [facility] Work Phone: Comment on above: IG% - Immature Granu locytes (promyelocytes, myelocytes and metamyelocytes) > 1% indicates that a LEFT SHIFT is Present. MCH (RBC) [Entitic mass] 30.2 pg 27.0-32.0 [facility] Work Phone: Nucleated RBC/100 WBC (Bld) [Ratio] 0 % 0-5 [facility] Work Phone: MCHC Auto (RBC) [Mass/Vol]on 10-19-2021 MCHC (RBC) [Mass/Vol] 33.9 g/dL 32-36 [facility] Work Phone: No Panel Informationon 10-19 Estimated GFR (MDRD) Amer 32 mL/min >60 [facility] Work Phone: Comment on above: GFR Calc Estimated GFR (MDRD) Non-Af Amer 27 mL/min >60 [facility] Work Phone: Comment on above: Non- GFR Calc Platelets bldon 10-19-2021 Platelets (Bld) [#/Vol] 235 10*3/uL 150-450 [facility] Work Phone: Serum or plasma albumin maxine urement (mass/volume)on 10-19-2021 Albumin [Mass/Vol] 3.8 g/dL 3.2-5.0 [facility] Work Phone: Serum or plasma albumin/glob ulin mass ratioon 10-19-2021 Albumin/Globulin [Mass ratio] 1.0 {ratio} 0.9-2.4 [facility] Work Phone: Serum or plasma calcium maxine urement (mass/volume)on 10-19-2021 Calcium [Mass/Vol] 9.9 mg/dL 8.5-10.1 [facility] Work Phone: Serum or plasma creatinine m easurement (mass/volume)on 10-19-2021 Creatinine [Mass/Vol] 2.51 mg/dL 0.70-1.30 [facility] Work Phone: Comment on above: The validity of the calculated GFR & GFRAA in patients over 70 years has not been determined. Clinical correlation is essential. Serum or plasma urea nitroge n measurement (mass/volume)on 10-19-2021 Urea nitrogen [Mass/Vol] 30 mg/dL 7-18 [facility] Work Phone: Thin prep Papanicolaou smear with manual screeningon 10-19-2021 Thin prep Papanicolaou smear with manual screening 17 U/L 15-37 [facility] Work Phone: Thin prep Papanicolaou smear with manual screening 8 5-15 [facility] Work Phone: Whole blood hemoglobin A1c/t otal hemoglobin ratio (mass fraction)on 10-19-2021 HbA1c (Bld) [Mass fraction] 8.3 % 3.8-5.6 [facility] Work Phone: Comment on above: Normal < 5.7 % Predi abetic 5.7 - 6.4 % Diabetic >or= 6.5 % Please note range changes. US Retroperitoneal Limitedon 07-26-2017 US Retroperitoneal Limited Patient Name: JOSE JOHN Ultrasound Exam Date/Time 07/26/2017 10:35:00 EST Exam US Retroperitoneal Limited Ordering Physician LUCA GABRIEL DORA L Accession Number [id number] CPT4 Codes 23714 () Reason For Exam 0.1 cm lt renal mass Report Exam type: Ultrasound retroperitoneum. EXAM DATE AND TIME: 07/26/2017 10:35 AM EST INDICATION: 72 years Male with left renal lesion seen on MRI COMPARISON: 06/25/2017 Technique: Grayscale sonographic images were obtained of the kidneys and bladder. Color Doppler was utilized. FINDINGS: RIGHT KIDNEY: Size: 11.8 cm in craniocaudal dimension Echogenicity: normal Parenchymal thickness: normal Contour: smooth Pelvicalyceal dilatation: none Calculus: none Mass: none Cyst: Multiple cysts measuring up to 2.1 x 2.1 x 1.6 cm in the interpolar region. LEFT KIDNEY: Size: 10.1 cm in craniocaudal dimension Echogenicity: normal Parenchymal thickness: normal Contour: smooth Pelvicalyceal dilatation: none Calculus: none Mass: none Cyst: Two cysts are seen in the superior pole measuring 0.8 x 0.0 0.6 cm, and 1.1 x 1.0 x 0.8 cm. The latter contains internal echogenic material; this lesion corresponds to the indeterminate lesion noted on MRI. Bladder: normal IMPRESSION: Multiple bilateral renal cysts. The lesion seen on prior MRI corresponds to a cystic lesion with internal echogenic material. This may be related to hemorrhagic or proteinaceous products. Recommend either follow- up ultrasound or CT without and with contrast for confirmation. Report Dictated on Final Dictating Physician: MD LANDRUM NICHOLAS Signed Date and Time: 07/26/2017 4:07 pm Signed by: MD LANDRUM NICHOLAS Transcribed Date and Time: 07/26/2017 4:08 Normal [facility] MRI Spine Lumbar w/o Contras ton 06-25-2017 MRI Spine Lumbar w/o Contrast Patient Name: JOSE JOHN MRI Exam Date/Time 06/25/2017 09:42:29 EST Exam MRI Spine Lumbar w/o Contrast Ordering Physician LUCA GABRIEL DORA L Accession Number [id number] CPT4 Codes 47139 () Reason For Exam m51.36 Report MRI LUMBAR SPINE WITHOUT CONTRAST CLINICAL: Intervertebral disc degeneration, lumbar COMPARISON: Plain film lumbar spine May 28, 2017 Routine noncontrast MR imaging of the lumbar spine was performed. FINDINGS: The lumbar spine vertebral body heights are maintained. Mild endplate degenerative spurring and degenerative marrow signal changes are seen. Vertebral body alignment is within limits. There is mild straightening of the normal lumbar lordosis. There is no abnormal marrow edema to suggest acute lumbar osseous injury. T12-L1 shows minimal posterior disc bulge. No significant canal or foraminal stenosis. L1-L2 is without significant canal or foraminal stenosis. L2-L3 mild posterior disc bulging. No significant canal stenosis. Mild intraforaminal disc bulging on the left. The foramina remain grossly patent. L3-L4 shows mild posterior disc bulging. Mild facet degenerative changes. No significant canal stenosis. The foramina are patent.. L4-L5 shows diffuse disc bulging with flattening the ventral aspect of the thecal sac. There is contact of the disc bulge and the proximal aspect of the bilateral L5 nerve roots. Mild facet and ligamentous degenerative changes. Lateral recess narrowing, left greater than right. The foramina remain grossly patent. L5-S1 shows disc bulging and left paracentral disc herniation. The left paracentral disc herniation contacts the proximal aspect of the left S1 nerve root and causes posterior displacement. Partial effacement of lateral recesses, left greater than right. Mild flattening the ventral aspect of the thecal sac. Mild facet and ligamentous degenerative changes. The foramina show mild narrowing. Atherosclerotic disease of aorta. Mild ectasia of infrarenal abdominal aorta. There are hyperintense T2 and hypointense T1 signal intensity foci within the included portions of both kidneys representing renal cysts. There is intermediate signal intensity exophytic lesion off of the posterior aspect of the left renal upper pole, suggesting a likely complex cysts which measures roughly 0.1 cm. IMPRESSION: Lumbar degenerative changes, most prominent at L5-S1 with disc bulge and left paracentral disc herniation with contact and displacement of the proximal aspect of the left S1 nerve root. Degenerative changes of L4-L5 with narrowing of the lateral recess is inflamed the ventral aspect of thecal sac. Renal cysts. There is an indeterminate exophytic lesion within the upper pole the left kidney posteriorly, raising question of possible complex cyst. This lesion could be further assessed with renal ultrasound. Report Dictated on Final Dictating Physician: JUAN C VILLALOBOS Signed Date and Time: 06/25/2017 10:22 am Signed by: JUAN C VILLALOBOS Transcribed Date and Time: 06/25/2017 10:23 [facility] CR Hip w/ Pelvis 2 or 3 View s Lefton 05-28-2017 CR Hip w/ Pelvis 2 or 3 Views Left Patient Name: JOSE JOHN Diagnostic Radiology Exam Date/Time 05/28/2017 11:30:23 EDT Exam CR Hip w/ Pelvis 2 or 3 Views Left n Ordering Physician LUCA GABRIEL DORA L Accession Number [id number] CPT4 Codes 94335 () Reason For Exam L hip pain M25.552 Report LUMBAR SPINE: CLINICAL INDICATION: Back pain. TECHNIQUE: AP, lateral , bilateral oblique and coned-down L5-S1. COMPARISON: None. FINDINGS: Five lumbar vertebrae are present. The lumbar vertebrae demonstrate no wedge fracture or compression deformity. There is multilevel degenerative spurring throughout the lumbar spine, most notable at L3-L4. There is no spondylolysis or spondylolisthesis. There is multilevel facet arthropathy. The pedicles and sacroiliac joints are unremarkable. Atherosclerotic calcifications are seen in the abdomen. Cholecystectomy clips are seen. IMPRESSION: Degenerative changes without evidence of fracture or spondylolisthesis. PELVIS AND LEFT HIP: CLINICAL INDICATION: Pain. TECHNIQUE: AP pelvis plus AP and lateral views of the left hip COMPARISON: None. FINDINGS: There is no evidence for fracture or dislocation. Mild degenerative changes are seen in the bilateral hips. The sacroiliac joints are normal. No bone lesion is identified. There is no soft tissue abnormality. IMPRESSION: Mild degenerative changes in the hips. Report Dictated on Final Dictating Physician: MD LANDRUM NICHOLAS Signed Date and Time: 05/28/2017 2:32 pm Signed by: MD LANDRUM NICHOLAS Transcribed Date and Time: 05/28/2017 2:33 Normal [facility] CR Spine Lumbosacral 4+ View son 05-28-2017 CR Spine Lumbosacral 4+ Views Patient Name: JOSE JOHN Diagnostic Radiology Exam Date/Time 05/28/2017 11:30:23 EDT Exam CR Spine Lumbosacral 4+ Views Ordering Physician LUCA GABRIEL DORA L Accession Number [id number] CPT4 Codes 04223 () Reason For Exam l hip pain SI L M53.3 Report LUMBAR SPINE: CLINICAL INDICATION: Back pain. TECHNIQUE: AP, lateral , bilateral oblique and coned-down L5-S1. COMPARISON: None. FINDINGS: Five lumbar vertebrae are present. The lumbar vertebrae demonstrate no wedge fracture or compression deformity. There is multilevel degenerative spurring throughout the lumbar spine, most notable at L3-L4. There is no spondylolysis or spondylolisthesis. There is multilevel facet arthropathy. The pedicles and sacroiliac joints are unremarkable. Atherosclerotic calcifications are seen in the abdomen. Cholecystectomy clips are seen. IMPRESSION: Degenerative changes without evidence of fracture or spondylolisthesis. PELVIS AND LEFT HIP: CLINICAL INDICATION: Pain. TECHNIQUE: AP pelvis plus AP and lateral views of the left hip COMPARISON: None. FINDINGS: There is no evidence for fracture or dislocation. Mild degenerative changes are seen in the bilateral hips. The sacroiliac joints are normal. No bone lesion is identified. There is no soft tissue abnormality. IMPRESSION: Mild degenerative changes in the hips. Report Dictated on Final Dictating Physician: MD LANDRUM NICHOLAS Signed Date and Time: 05/28/2017 2:32 pm Signed by: MD LANDRUM NICHOLAS Transcribed Date and Time: 05/28/2017 2:33 Normal [facility] Vital Signs Date Time Vital Sign Value Performing Clinician Facility 06-02-2025 15:13-0400 Diastolic blood pressure 78 mm[Hg] Kalyani Bridenthal MANAGER OF PROJECT MANAGEMENT - INTEGRATION ENGINEER Work Phone: [facility] 06-02-2025 15:13-0400 Systolic blood pressure 163 mm[Hg] Kalyani Bridenthal MANAGER OF PROJECT MANAGEMENT - INTEGRATION ENGINEER Work Phone: [facility] 06-02-2025 14:37-0400 Body mass index (BMI) [Ratio] 18.62 kg/m2 Kalyani Bridenthal MANAGER OF PROJECT MANAGEMENT - INTEGRATION ENGINEER Work Phone: [facility] 06-02-2025 14:37-0400 Body temperature 98.91 [degF] Kalyani Bridenthal MANAGER OF PROJECT MANAGEMENT - INTEGRATION ENGINEER Work Phone: [facility] 06-02-2025 14:37-0400 Body weight 58.88 kg Kalyani Bridenthal MANAGER OF PROJECT MANAGEMENT - INTEGRATION ENGINEER Work Phone: [facility] 06-02-2025 14:37-0400 Heart rate 84 /min Kalyani Bridenthal MANAGER OF PROJECT MANAGEMENT - INTEGRATION ENGINEER Work Phone: [facility] 06-02-2025 14:37-0400 Respiratory rate 20 /min Kalyani Bridenthal MANAGER OF PROJECT MANAGEMENT - INTEGRATION ENGINEER Work Phone: [facility] 06-02-2025 14:37-0400 SaO2% (BldA) [Mass fraction] 94 % Kalyani Bridenthal MANAGER OF PROJECT MANAGEMENT - INTEGRATION ENGINEER Work Phone: [facility] 05-19-2025 09:36-0400 Body temperature 97.8 [degF] Kalyani Bridenthal APPLICATION DBA-C Work Phone: [facility] 05-19-2025 09:36-0400 Body weight 58.51 kg Kalyani Bridenthal APPLICATION DBA-C Work Phone: [facility] 05-19-2025 09:36-0400 Diastolic blood pressure 78 mm[Hg] Kalyani Bridenthal APPLICATION DBA-C Work Phone: [facility] 05-19-2025 09:36-0400 Heart rate 86 /min Kalyani Bridenthal APPLICATION DBA-C Work Phone: [facility] 05-19-2025 09:36-0400 Respiratory rate 16 /min Kalyani Bridenthal APPLICATION DBA-C Work Phone: [facility] 05-19-2025 09:36-0400 SaO2% (BldA) [Mass fraction] 99 % Kalyani Bridenthal APPLICATION DBA-C Work Phone: [facility] 05-19-2025 09:36-0400 Systolic blood pressure 147 mm[Hg] Kalyani Bridenthal APPLICATION DBA-C Work Phone: [facility] 04-30-2025 09:22-0400 Diastolic blood pressure 80 mm[Hg] Amy Alaniz MD Work Phone: [facility] 04-30-2025 09:22-0400 Systolic blood pressure 160 mm[Hg] Amy Alaniz MD Work Phone: [facility] 04-30-2025 08:33-0400 Body height 177.8 cm Amy Alaniz MD Work Phone: [facility] 04-30-2025 08:33-0400 Body mass index (BMI) [Ratio] 18.68 kg/m2 Amy Alaniz MD Work Phone: [facility] 04-30-2025 08:33-0400 Body weight 59.06 kg Amy Alaniz MD Work Phone: [facility] 04-30-2025 08:33-0400 Heart rate 95 /min Amy Alaniz MD Work Phone: [facility] 04-30-2025 08:33-0400 SaO2% (BldA) [Mass fraction] 96 % Amy Alaniz MD Work Phone: [facility] 04-21-2025 09:21-0400 Body height 177.8 cm Kalyani Bridenthal APPLICATION DBA-C Work Phone: [facility] 03-03-2025 15:16-0400 Body mass index (BMI) [Ratio] 17.3 kg/m2 Kalyani Bridenthal MANAGER OF PROJECT MANAGEMENT - INTEGRATION ENGINEER Work Phone: [facility] 03-03-2025 15:16-0400 Body temperature 98.4 [degF] Kalyani Bridenthal MANAGER OF PROJECT MANAGEMENT - INTEGRATION ENGINEER Work Phone: [facility] 03-03-2025 15:16-0400 Body weight 54.7 kg Kalyani Bridenthal MANAGER OF PROJECT MANAGEMENT - INTEGRATION ENGINEER Work Phone: [facility] 03-03-2025 15:16-0400 Diastolic blood pressure 69 mm[Hg] Kalyani Bridenthal MANAGER OF PROJECT MANAGEMENT - INTEGRATION ENGINEER Work Phone: [facility] 03-03-2025 15:16-0400 Heart rate 82 /min Kalyani Bridenthal MANAGER OF PROJECT MANAGEMENT - INTEGRATION ENGINEER Work Phone: [facility] 03-03-2025 15:16-0400 Respiratory rate 18 /min Kalyani Bridenthal MANAGER OF PROJECT MANAGEMENT - INTEGRATION ENGINEER Work Phone: [facility] 03-03-2025 15:16-0400 SaO2% (BldA) [Mass fraction] 96 % Kalyani Bridenthal MANAGER OF PROJECT MANAGEMENT - INTEGRATION ENGINEER Work Phone: [facility] 03-03-2025 15:16-0400 Systolic blood pressure 135 mm[Hg] Kalyani Tarunenthal MANAGER OF PROJECT MANAGEMENT - INTEGRATION ENGINEER Work Phone: [facility] 01-29-2025 15:17-0400 Body temperature 98.2 [degF] Dr. Lena Mcfarland DO Work Phone: [facility] 01-29-2025 15:17-0400 Body weight 55.[address] Lena Mcfarland DO Work Phone: [facility] 01-29-2025 15:17-0400 Diastolic blood pressure 80 mm[Hg] Dr. Lena Mcfarland DO Work Phone: [facility] 01-29-2025 15:17-0400 Heart rate 93 /min Dr. Lena Mcfarland DO Work Phone: [facility] 01-29-2025 15:17-0400 Respiratory rate 16 /min Dr. Lena Mcfarland DO Work Phone: [facility] 01-29-2025 15:17-0400 SaO2% (BldA) [Mass fraction] 96 % Dr. Lena Mcfarland DO Work Phone: [facility] 01-29-2025 15:17-0400 Systolic blood pressure 150 mm[Hg] Dr. Lena Mcfarland DO Work Phone: [facility] 01-29-2025 12:55-0400 Diastolic blood pressure 66 mm[Hg] Kalyani Tarunenthal MANAGER OF PROJECT MANAGEMENT - INTEGRATION ENGINEER Work Phone: [facility] 01-29-2025 12:55-0400 Heart rate 88 /min Kalyani Bridenthal MANAGER OF PROJECT MANAGEMENT - INTEGRATION ENGINEER Work Phone: [facility] 01-29-2025 12:55-0400 Systolic blood pressure 132 mm[Hg] Kalyani Bridenthal MANAGER OF PROJECT MANAGEMENT - INTEGRATION ENGINEER Work Phone: [facility] 01-29-2025 11:28-0400 Body mass index (BMI) [Ratio] 17.39 kg/m2 Kalyani Bridenthal MANAGER OF PROJECT MANAGEMENT - INTEGRATION ENGINEER Work Phone: [facility] 01-29-2025 11:28-0400 Body temperature 98.71 [degF] Kalyani Bridenthal MANAGER OF PROJECT MANAGEMENT - INTEGRATION ENGINEER Work Phone: [facility] 01-29-2025 11:28-0400 Body weight 54.98 kg Kalyani Bridenthal MANAGER OF PROJECT MANAGEMENT - INTEGRATION ENGINEER Work Phone: [facility] 01-29-2025 11:28-0400 Respiratory rate 18 /min Kalyani Bridenthal MANAGER OF PROJECT MANAGEMENT - INTEGRATION ENGINEER Work Phone: [facility] 01-29-2025 11:28-0400 SaO2% (BldA) [Mass fraction] 96 % Kalyani Bridenthal MANAGER OF PROJECT MANAGEMENT - INTEGRATION ENGINEER Work Phone: [facility] 01-13-2025 16:55-0400 Body temperature 97.7 [degF] Dr. Lena Mcfarland DO Work Phone: 3(478)504-601658 [place] [address] 01-13-2025 16:55-0400 Diastolic blood pressure 70 mm[Hg] Dr. Lena Mcfarland DO Work Phone: 2(577)003-185588 [place] [address] 01-13-2025 16:55-0400 Heart rate 75 /min Dr. Lena Mcfarland DO Work Phone: 1(629)305-858788 [place] [address] 01-13-2025 16:55-0400 Respiratory rate 16 /min Dr. Lena Mcfarland DO Work Phone: 3(686)375-111288 [place] [address] 01-13-2025 16:55-0400 SaO2% (BldA) [Mass fraction] 96 % Dr. Lena Mcfarland DO Work Phone: 8(175)338-841688 [place] [address] 01-13-2025 16:55-0400 Systolic blood pressure 150 mm[Hg] Dr. Lena Mcfarland DO Work Phone: 8(616)583-896688 [place] [address] 01-13-2025 14:00-0400 Diastolic blood pressure 55 mm[Hg] Dr. Lena Mcfarland DO Work Phone: 1(698)592-719958 [place] [address] 01-13-2025 14:00-0400 Heart rate 73 /min Dr. Lena Mcfarland DO Work Phone: 6(112)617-901358 [place] [address] 01-13-2025 14:00-0400 Respiratory rate 19 /min Dr. Lena Mcfarland DO Work Phone: 8(857)138-910758 [place] [address] 01-13-2025 14:00-0400 SaO2% (BldA) [Mass fraction] 95 % Dr. Lena Mcfarland DO Work Phone: 9(337)784-388058 [place] [address] 01-13-2025 14:00-0400 Systolic blood pressure 128 mm[Hg] Dr. Lena Mcfarland DO Work Phone: 4(573)135-515058 [place] [address] 01-13-2025 12:49-0400 Body height 177.[address] Lena Mcfarland DO Work Phone: 1(690)663-530458 [place] [address] 01-13-2025 12:49-0400 Body mass index (BMI) [Ratio] 18.2 kg/m2 Dr. Lena Mcfarland DO Work Phone: 5(773)984-158658 [place] [address] 01-13-2025 12:49-0400 Body temperature 97.7 [degF] Dr. Lena Mcfarland DO Work Phone: 3(702)295-307788 [place] [address] 01-13-2025 12:49-0400 Body weight 57.[address] Lena Mcfarland DO Work Phone: 4(839)463-155688 [place] [address] 01-01-2025 12:33-0400 Body temperature 97.9 [degF] Dr. Lena Mcfarland DO Work Phone: 7(518)397-246488 [place] [address] 01-01-2025 12:33-0400 Diastolic blood pressure 88 mm[Hg] Dr. Lena Mcfarland DO Work Phone: 1(519)561-360488 [place] [address] 01-01-2025 12:33-0400 Heart rate 76 /min Dr. Lena Mcfarland DO Work Phone: 0(515)242-557588 [place] [address] 01-01-2025 12:33-0400 Respiratory rate 18 /min Dr. Lena Mcfarland DO Work Phone: 2(230)401-788088 [place] [address] 01-01-2025 12:33-0400 SaO2% (BldA) [Mass fraction] 99 % Dr. Lena Mcfarland DO Work Phone: 2(807)599-126288 [place] [address] 01-01-2025 12:33-0400 Systolic blood pressure 176 mm[Hg] Dr. Lena Mcfarland DO Work Phone: 2(030)147-266788 [place] [address] 01-01-2025 07:44-0400 Body height 177.[address] Lena Mcfarland DO Work Phone: 9(929)891-553088 [place] [address] 01-01-2025 07:44-0400 Body mass index (BMI) [Ratio] 19.2 kg/m2 Dr. Lena Mcfarland DO Work Phone: 9(673)853-118588 [place] [address] 01-01-2025 07:44-0400 Body weight 60.[address] Lena Mcfarland DO Work Phone: [facility] 05-26-2024 05:32-0400 Diastolic blood pressure 100 mm[Hg] Nerissa Dawn DO [facility] Phone: [facility] 05-26-2024 05:32-0400 Heart rate 78 /min Nerissa Dawn DO Work Phone: [email or web address] 05-26-2024 05:32-0400 Respiratory rate 18 /min Nerissa Dawn DO Work Phone: [email or web address] 05-26-2024 05:32-0400 SaO2% (BldA) [Mass fraction] 98 % Nerissa Dawn DO Work Phone: [employer] 05-26-2024 05:32-0400 Systolic blood pressure 198 mm[Hg] Nerissa Dawn DO Work Phone: [email or web address] 05-26-2024 03:44-0400 Body height 177.8 cm Nerissa Dawn DO Work Phone: [facility] [employer] 05-26-2024 03:44-0400 Body mass index (BMI) [Ratio] 19.08 kg/m2 Nerissa Dawn DO Work Phone: [facility] 05-26-2024 03:44-0400 Body weight 60.33 kg Nerissa Dawn DO Work Phone: [email or web address] 05-26-2024 03:21-0400 Body temperature 97.59 [degF] Nerissa Dawn DO Work Phone: [email or web address] 02-27-2024 15:54-0400 SaO2% (BldA) [Mass fraction] 91 % Amanda Wild DO Work Phone: [email or web address] 02-27-2024 11:45-0400 Body temperature 98.49 [degF] Amanda Wild DO Work Phone: [facility] 02-27-2024 11:45-0400 Diastolic blood pressure 75 mm[Hg] Amanda Wild DO Work Phone: [email or web address] 02-27-2024 11:45-0400 Heart rate 72 /min Amanda Wild DO Work Phone: [email or web address] 02-27-2024 11:45-0400 Respiratory rate 16 /min Amanda Wild DO Work Phone: [email or web address] 02-27-2024 11:45-0400 Systolic blood pressure 148 mm[Hg] Amanda Wild DO Work Phone: [email or web address] 02-26-2024 00:21-0400 Body mass index (BMI) [Ratio] 19.14 kg/m2 Amanda Wild DO Work Phone: [email or web address] 02-26-2024 00:21-0400 Body weight 60.5 kg Amanda Wild DO Work Phone: [email or web address] 02-16-2024 09:23-0400 Body height 177.8 cm Amanda Wild DO Work Phone: [email or web address] 02-13-2024 10:50-0400 SaO2% (BldA) [Mass fraction] 98.0 % Amanda Wild DO Work Phone: [email or web address] 02-13-2024 00:17-0400 SaO2% (BldA) [Mass fraction] 82.6 % Amanda Wild DO Work Phone: [email or web address] 01-30-2024 18:01-0400 Body temperature 99.39 [degF] Amanda Wild DO Work Phone: [email or web address] 01-30-2024 18:01-0400 Diastolic blood pressure 73 mm[Hg] Amanda Wild DO Work Phone: [email or web address] 01-30-2024 18:01-0400 Heart rate 95 /min Amanda Wild DO Work Phone: [email or web address] 01-30-2024 18:01-0400 Respiratory rate 20 /min Amanda Wild DO Work Phone: [email or web address] 01-30-2024 18:01-0400 SaO2% (BldA) [Mass fraction] 93 % Amanda Wild DO Work Phone: [facility] 01-30-2024 18:01-0400 Systolic blood pressure 123 mm[Hg] Amanda Wild DO Work Phone: [facility] 01-28-2024 16:30-0400 Body mass index (BMI) [Ratio] 19.68 kg/m2 Amanda Wild DO Work Phone: [facility] 01-28-2024 16:30-0400 Body weight 62.2 kg Amanda Wild DO Work Phone: [facility] 01-24-2024 09:37-0400 Body height 177.8 cm Amanda Wild DO Work Phone: [facility] 11-13-2023 14:00-0400 Diastolic blood pressure 97 mm[Hg] [facility] 11-13-2023 14:00-0400 Heart rate 119 /min [facility] 11-13-2023 14:00-0400 Respiratory rate 22 /min [facility] 11-13-2023 14:00-0400 SaO2% (BldA) [Mass fraction] 93 % [facility] 11-13-2023 14:00-0400 Systolic blood pressure 177 mm[Hg] [facility] 11-13-2023 13:27-0400 Body temperature 98 [degF] [facility] 11-13-2023 06:40-0400 Body height 177.8 cm [facility] 11-13-2023 06:40-0400 Body mass index (BMI) [Ratio] 25 kg/m2 [facility] 11-13-2023 06:40-0400 Body weight 79 kg [facility] 11-07-2023 16:23-0400 Body mass index (BMI) [Ratio] 23.1 kg/m2 [facility] 11-07-2023 16:23-0400 Body temperature 97.9 [degF] [facility] 11-07-2023 16:23-0400 Body weight 73.02 kg [facility] 11-07-2023 16:23-0400 Diastolic blood pressure 80 mm[Hg] [facility] 11-07-2023 16:23-0400 Heart rate 82 /min [facility] 11-07-2023 16:23-0400 Respiratory rate 18 /min [facility] 11-07-2023 16:23-0400 SaO2% (BldA) [Mass fraction] 96 % [facility] 11-07-2023 16:23-0400 Systolic blood pressure 130 mm[Hg] [facility] 10-01-2023 18:23-0500 Body height 177.8 cm [facility] 10-01-2023 18:23-0500 Body mass index (BMI) [Ratio] 23.2 kg/m2 [facility] 10-01-2023 18:23-0500 Body temperature 98.1 [degF] [facility] 10-01-2023 18:23-0500 Body weight 73.48 kg [facility] 10-01-2023 18:23-0500 Diastolic blood pressure 84 mm[Hg] [facility] 10-01-2023 18:23-0500 Heart rate 81 /min [facility] 10-01-2023 18:23-0500 Respiratory rate 18 /min [facility] 10-01-2023 18:23-0500 SaO2% (BldA) [Mass fraction] 96 % [facility] 10-01-2023 18:23-0500 Systolic blood pressure 196 mm[Hg] [facility] 03-14-2023 16:07-0400 Body height 177.8 cm [facility] 03-14-2023 16:07-0400 Body mass index (BMI) [Ratio] 23.2 kg/m2 [facility] 03-14-2023 16:07-0400 Body temperature 97.7 [degF] [facility] 03-14-2023 16:07-0400 Body weight 73.48 kg [facility] 03-14-2023 16:07-0400 Diastolic blood pressure 80 mm[Hg] [facility] 03-14-2023 16:07-0400 Heart rate 85 /min [facility] 03-14-2023 16:07-0400 Respiratory rate 18 /min [facility] 03-14-2023 16:07-0400 SaO2% (BldA) [Mass fraction] 88 % [facility] 03-14-2023 16:07-0400 Systolic blood pressure 190 mm[Hg] [facility] 09-25-2022 18:49-0500 Body height 177.8 cm [facility] 09-25-2022 18:49-0500 Body mass index (BMI) [Ratio] 24 kg/m2 [facility] 09-25-2022 18:49-0500 Body temperature 97.7 [degF] [facility] 09-25-2022 18:49-0500 Body weight 76.2 kg [facility] 09-25-2022 18:49-0500 Diastolic blood pressure 80 mm[Hg] [facility] 09-25-2022 18:49-0500 Heart rate 91 /min [facility] 09-25-2022 18:49-0500 Respiratory rate 18 /min [facility] 09-25-2022 18:49-0500 SaO2% (BldA) [Mass fraction] 97 % [facility] 09-25-2022 18:49-0500 Systolic blood pressure 140 mm[Hg] [facility] 05-10-2022 15:38-0400 Body height 177.[address] Morteza Anderson Work Phone: [facility] Work Phone: 05-10-2022 15:38-0400 Body mass index (BMI) [Ratio] 24.2 kg/m2 Dr. Morteza Anderson Work Phone: [facility] Work Phone: 05-10-2022 15:38-0400 Body temperature 98.1 [degF] Dr. Morteza Anderson Work Phone: [facility] Work Phone: 05-10-2022 15:38-0400 Body weight 76.[address] Morteza Anderson Work Phone: [facility] Work Phone: 05-10-2022 15:38-0400 Diastolic blood pressure 90 mm[Hg] Dr. Morteza Anderson Work Phone: [facility] Work Phone: 05-10-2022 15:38-0400 Heart rate 102 /min Dr. Morteza Anderson Work Phone: [facility] Work Phone: 05-10-2022 15:38-0400 Respiratory rate 18 /min Dr. Morteza Anderson Work Phone: [facility] Work Phone: 05-10-2022 15:38-0400 SaO2% (BldA) [Mass fraction] 96 % Dr. Morteza Anderson Work Phone: [facility] Work Phone: 05-10-2022 15:38-0400 Systolic blood pressure 140 mm[Hg] Dr. Morteza Anderson Work Phone: [facility] Work Phone: 02-23-2022 15:34-0400 Body temperature 97.6 [degF] Dr. Morteza Anderson Work Phone: [facility] Work Phone: 02-23-2022 15:34-0400 Diastolic blood pressure 72 mm[Hg] Dr. Morteza Anderson Work Phone: [facility] Work Phone: 02-23-2022 15:34-0400 Heart rate 60 /min Dr. Morteza Anderson Work Phone: [facility] Work Phone: 02-23-2022 15:34-0400 Respiratory rate 16 /min Dr. Morteza Anderson Work Phone: [facility] Work Phone: 02-23-2022 15:34-0400 SaO2% (BldA) [Mass fraction] 94 % Dr. Morteza Anderson Work Phone: [facility] Work Phone: 02-23-2022 15:34-0400 Systolic blood pressure 162 mm[Hg] Dr. Morteza Anderson Work Phone: [facility] Work Phone: 02-23-2022 06:24-0400 Body height 177.[address] Morteza Anderson Work Phone: [facility] Work Phone: 02-23-2022 06:24-0400 Body mass index (BMI) [Ratio] 23.6 kg/m2 Dr. Morteza Anderson Work Phone: [facility] Work Phone: 02-23-2022 06:24-0400 Body weight 74.[address] Morteza Anderson Work Phone: [facility] Work Phone: 02-08-2022 09:18-0400 Body mass index (BMI) [Ratio] 23.8 kg/m2 Dr. Morteza Anderson Work Phone: [facility] Work Phone: 02-08-2022 09:18-0400 Body temperature 97.5 [degF] Dr. Morteza Anderson Work Phone: [facility] Work Phone: 02-08-2022 09:18-0400 Body weight 75.[address] Morteza Anderson Work Phone: [facility] Work Phone: 02-08-2022 09:18-0400 Diastolic blood pressure 82 mm[Hg] Dr. Morteza Anderson Work Phone: [facility] Work Phone: 02-08-2022 09:18-0400 Heart rate 76 /min Dr. Morteza Anderson Work Phone: [facility] Work Phone: 02-08-2022 09:18-0400 Respiratory rate 16 /min Dr. Morteza Anderson Work Phone: [facility] Work Phone: 02-08-2022 09:18-0400 SaO2% (BldA) [Mass fraction] 96 % Dr. Morteza Anderson Work Phone: [facility] Work Phone: 02-08-2022 09:18-0400 Systolic blood pressure 188 mm[Hg] Dr. Morteza Anderson Work Phone: [facility] Work Phone: 01-27-2022 16:43-0400 Body mass index (BMI) [Ratio] 24.3 kg/m2 Dr. Morteza Anderson Work Phone: [facility] Work Phone: 01-27-2022 16:43-0400 Body temperature 100.2 [degF] Dr. Morteza Anderson Work Phone: [facility] Work Phone: 01-27-2022 16:43-0400 Body weight 77.[address] Morteza Anderson Work Phone: [facility] Work Phone: 01-27-2022 16:43-0400 Diastolic blood pressure 80 mm[Hg] Dr. Morteza Anderson Work Phone: [facility] Work Phone: 01-27-2022 16:43-0400 Heart rate 112 /min Dr. Morteza Anderson Work Phone: [facility] Work Phone: 01-27-2022 16:43-0400 Respiratory rate 18 /min Dr. Morteza Anderson Work Phone: [facility] Work Phone: 01-27-2022 16:43-0400 SaO2% (BldA) [Mass fraction] 96 % Dr. Morteza Anderson Work Phone: [facility] Work Phone: 01-27-2022 16:43-0400 Systolic blood pressure 148 mm[Hg] Dr. Morteza Anderson Work Phone: [facility] Work Phone: 12-14-2021 16:40-0400 Body mass index (BMI) [Ratio] 23.9 kg/m2 Dr. Morteza Anderson Work Phone: [facility] Work Phone: 12-14-2021 16:40-0400 Body temperature 97.9 [degF] Dr. Morteza Anderson Work Phone: [facility] Work Phone: 12-14-2021 16:40-0400 Body weight 75.[address] Morteza Anderson Work Phone: [facility] Work Phone: 12-14-2021 16:40-0400 Diastolic blood pressure 80 mm[Hg] Dr. Morteza Anderson Work Phone: [facility] Work Phone: 12-14-2021 16:40-0400 Heart rate 102 /min Dr. Morteza Anderson Work Phone: [facility] Work Phone: 12-14-2021 16:40-0400 Respiratory rate 18 /min Dr. Morteza Anderson Work Phone: [facility] Work Phone: 12-14-2021 16:40-0400 SaO2% (BldA) [Mass fraction] 95 % Dr. Morteza Anderson Work Phone: [facility] Work Phone: 12-14-2021 16:40-0400 Systolic blood pressure 130 mm[Hg] Dr. Morteza Anderson Work Phone: [facility] Work Phone: 10-19-2021 14:51-0400 Body height 177.8 cm [facility] Work Phone: 10-19-2021 14:51-0400 Body mass index (BMI) [Ratio] 24.7 kg/m2 [facility] Work Phone: 10-19-2021 14:51-0400 Body temperature 97.5 [degF] [facility] Work Phone: 10-19-2021 14:51-0400 Body weight 78.01 kg [facility] Work Phone: 10-19-2021 14:51-0400 Diastolic blood pressure 80 mm[Hg] [facility] Work Phone: 10-19-2021 14:51-0400 Heart rate 93 /min [facility] Work Phone: 10-19-2021 14:51-0400 Respiratory rate 18 /min [facility] Work Phone: 10-19-2021 14:51-0400 SaO2% (BldA) [Mass fraction] 98 % [facility] Work Phone: 10-19-2021 14:51-0400 Systolic blood pressure 130 mm[Hg] [facility] Work Phone: Encounters Encounter Date Encounter Type Care Provider Facility Start: 06-16-2025 End: 06-16-2025 Emergency department patient visit Kalyani Mcneilmary [place] Facility:[facility] Start: 06-10-2025 End: 06-12-2025 Telephone encounter Kalyani Crump MANAGER OF PROJECT MANAGEMENT - INTEGRATION ENGINEER Work Phone: [facility] Comment on above: Other (OV notes faxe d ) Start: 06-02-2025 End: 06-02-2025 Office outpatient visit 25 minutes Kalyani Mcneilmary [place] MANAGER OF PROJECT MANAGEMENT - INTEGRATION ENGINEER Work Phone: [facility] Comment on above: 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, without long-term current use of insulin (HCC) (Primary Dx); Anxiety; Weight loss; 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; Atrial fibrillation, unspecified type (HCC); Centrilobular emphysema (HCC); End stage renal disease (HCC); Primary hypertension Start: 06-02-2025 End: 06-02-2025 ambulatory KALYANI CRUMP [facility] Start: 05-19-2025 End: 05-19-2025 Patient encounter procedure Erin EDWARDS -[facility] Work Phone: Start: 05-19-2025 End: 05-19-2025 ambulatory Kalyani Lupe APPLICATION DBA-C Work Phone: -[facility] Start: 05-14-2025 End: 05-14-2025 ambulatory AMY ALANIZ [facility] Start: 05-14-2025 End: 05-14-2025 Subsequent hospital visit by physician Amy Alaniz MD Work Phone: [facility] [address] Non-Invasive Cardiology Comment on above: Paroxysmal atrial fi brillation (HCC) Start: 04-30-2025 End: 04-30-2025 Office outpatient new 60 minutes Amy Alaniz MD Work Phone: [facility] Cardiology [facility] Comment on above: Paroxysmal atrial fi brillation (HCC) (Primary Dx); Coronary artery disease involving [place] heart without angina pectoris, unspecified vessel or lesion type; Bilateral carotid artery stenosis; Acute pulmonary edema (HCC) Start: 04-30-2025 End: 04-30-2025 ambulatory KALYANI CRUMP [facility] Start: 04-09-2025 End: 04-09-2025 Clinical Support Schedule [facility] Comment on above: Anxiety Start: 04-02-2025 End: 04-02-2025 Telephone encounter [facility] Comment on above: Prior Authorization Start: 03-18-2025 End: 03-18-2025 Telephone encounter Kalyani Crump MANAGER OF PROJECT MANAGEMENT - INTEGRATION ENGINEER Work Phone: [facility] [place] Comment on above: Care Coordination Start: 03-10-2025 End: 03-10-2025 ambulatory MARYLIN FRANZ [facility] Start: 03-03-2025 End: 03-03-2025 Office outpatient visit 25 minutes Kalyani Crump APRN - INTEGRATION ENGINEER Work Phone: [facility] Comment on above: 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 Emmanuel Freeman MD -[facility] Work Phone: Start: 01-29-2025 End: 01-29-[address] 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, with long-term current use of insulin (HCC) (Primary Dx); Centrilobular emphysema (HCC); Atrial fibrillation, unspecified type (HCC); Anxiety; Coronary artery disease involving [place] heart without angina pectoris, unspecified vessel or lesion type; Neuropathy; Gastroesophageal reflux disease without esophagitis; Hx of CABG; 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 Lena Mcfarland DO Work Phone: -Emergency Department Work Phone: Start: 01-06-2025 Non-patient / Non-visit Dr. Emmanuel powers MD -[facility] Start: 01-06-2025 End: 01-06-[address] Lena Mcfarland DO Work Phone: [facility] Work Phone: Start: 01-06-2025 End: 01-06-[address] Jakob Allen MD -Cardiovascular Services Work Phone: Start: 01-06-2025 End: 01-06-2025 ambulatory Jakob Allen Facility:[facility] Start: 01-01-2025 End: 01-01-2025 Emergency department patient visit Dr. Lena Mcfarland DO Work Phone: -Emergency Department Work Phone: Start: 10-13-2024 End: 10-13-2024 Patient Outreach Fina Callahan RN Work Phone: [facility] [place] Comment on above: Single phone contact for Transitional Care Management Start: 10-06-2024 End: 10-09-2024 Evaluation and management of inpatient SAMMY LUTHER Facility:[facility] Start: 10-04-2024 End: 10-05-2024 Emergency department patient visit JAMIA CRAIN Facility:[facility] Start: 07-07-2024 End: 07-09-2024 Evaluation and management of inpatient JUAN C TURNER Facility:[facility] Start: 05-26-2024 End: 05-26-2024 Emergency department patient visit Nerissa Dawn DO Work Phone: [facility] Comment on above: Asymptomatic hyperte nsion (Primary Dx); Pain Start: 05-05-2024 End: 05-05-2024 ambulatory Abiola Meng RT(R) Radiology Comment on above: Radiology CT Start: 05-05-2024 End: 05-05-2024 Patient encounter procedure Abiola Meng RT(R) Radiology Start: 05-04-2024 End: 05-09-2024 Evaluation and management of inpatient OLENA GABRIEL Facility:[facility] Start: 05-01-2024 End: 05-01-2024 Emergency department patient visit OLENA GABRIEL Facility:[facility] Start: 04-03-2024 End: 04-05-2024 Evaluation and management of inpatient OLENA GABRIEL Facility:[facility] Start: 03-18-2024 End: 03-18-2024 Telephone encounter Dora Madden MANAGER OF PROJECT MANAGEMENT - INTEGRATION ENGINEER Work Phone: [facility] Start: 03-11-2024 End: 03-14-2024 Evaluation and management of inpatient OLENA GABRIEL Facility:[facility] Start: 02-12-2024 End: 02-27-2024 Evaluation and management of inpatient Amanda Wild DO Work Phone: [facility] Cardiac Progressive Care Unit PCU 5W Start: 02-11-2024 End: 05-12-2024 Transcribe Orders Elis Barbosa PA-C Work Phone: [facility] Comment on above: Pleural effusion in other conditions classified elsewhere (Primary Dx) Start: 02-06-2024 End: 02-06-2024 ambulatory oDrinda Quijano MANAGER OF PROJECT MANAGEMENT - INTEGRATION ENGINEER Work Phone: [facility] Comment on above: Chronic respiratory failure with hypoxia (HCC) [J96.11] (Primary Dx); Recurrent pleural effusion [J90]; HFrEF (heart failure with reduced ejection fraction) (HCC) [I50.20]; Atelectasis [J98.11]; Stage 4 very severe COPD by GOLD classification (HCC) [J44.9] Start: 02-01-2024 End: 02-01-2024 ambulatory Dorinda BrooksMichelle Quijano MANAGER OF PROJECT MANAGEMENT - INTEGRATION ENGINEER Work Phone: [facility] Comment on above: Recurrent pleural ef fusion [J90] (Primary Dx); Chronic respiratory failure with hypoxia (HCC) [J96.11]; HFrEF (heart failure with reduced ejection fraction) ([facility]) [I50.20]; Atelectasis [J98.11]; Bilateral pulmonary infiltrates [R91.8]; Stage 4 very severe COPD by GOLD classification (HCC) [J44.9] Start: 01-22-2024 End: 01-30-2024 Evaluation and management of inpatient Amanda Wild DO Work Phone: [facility] Cardiac Post Intervention Progressive Care Unit CPI PCU 4W Comment on above: Shortness of breath (Primary Dx); Pleural effusion; Pneumonia due to infectious organism, unspecified laterality, unspecified part of lung; Delirium; Depression, unspecified depression type; Paranoia (HCC); Debility Start: 01-22-2024 End: 01-22-2024 Telephone encounter Chayo Holden RN [facility] Special Procedur es Start: 01-21-2024 End: 01-31-2024 Telephone encounter Dora Madden MANAGER OF PROJECT MANAGEMENT - INTEGRATION ENGINEER Work Phone: [facility] Comment on above: Discussion Of Care Start: 01-11-2024 End: 01-22-2024 ambulatory TONIE SOTO Facility:[facility] Start: 01-11-2024 End: 01-22-2024 Subsequent hospital visit by physician Jessica Buck MD Work Phone: [facility] Comment on above: [R53.81] - Other [place] Start: 12-29-2023 ambulatory Ronald brooks MD Work Phone: [facility] Comment on above: Paroxysmal atrial fi brillation (HCC) (Primary Dx); Coronary artery disease involving [place] coronary artery of [place] heart without angina pectoris Start: 11-13-2023 Evaluation and management of inpatient [facility] Work Phone: Start: 10-01-2023 End: 10-01-2023 ambulatory [facility] Work Phone: Start: 10-01-2023 End: 10-01-2023 Patient encounter procedure [facility] Work Phone: Start: 03-14-2023 End: 03-14-2023 ambulatory [facility] Work Phone: Start: 03-14-2023 End: 03-14-2023 Patient encounter procedure [facility] Work Phone: Start: 09-25-2022 End: 09-25-2022 ambulatory [facility] Work Phone: Start: 09-25-2022 End: 09-25-2022 Patient encounter procedure [facility] Start: 05-10-2022 End: 05-10-[address] Morteza Anderson Work Phone: [facility] Work Phone: Start: 05-10-2022 End: 05-10-[address] Morteza Anderson Work Phone: [facility] Start: 03-16-2022 End: 03-16-[address] Morteza Anderson Work Phone: [facility] Start: 02-23-2022 Non-patient / Non-visit Dr. Denton Anderson Work Phone: [facility] Start: 02-23-2022 End: 02-23-2022 Admission to same day surgery center [facility] Start: 02-16-2022 Non-patient / Non-visit Dr. Denton Anderson Work Phone: [facility] Start: 02-08-2022 End: 02-08-[address] Morteza Anderson Work Phone: [facility] Start: 10-19-2021 End: 10-19-2021 Patient encounter procedure [facility] Start: 07-26-2017 Ambulatory UNKNOWN PROVIDER [place] [email or web address] Start: 06-25-2017 [facility] Start: 05-28-2017 Ambulatory Olena Gabriel [facility] Procedures Date Procedure Procedure Detail Performing Clinician Start: 04-30-2025 Ecg routine ecg w/least 12 lds w/i&r Amy Alaniz MD Work Phone: Start: 03-03-2025 Glucose post glucose dose Kalyani moreno MANAGER OF PROJECT MANAGEMENT - INTEGRATION ENGINEER Work Phone: Start: 01-29-2025 Hemoglobin glycosylated a1c Kalyani cruz MANAGER OF PROJECT MANAGEMENT - INTEGRATION ENGINEER Work Phone: Start: 01-28-2025 History of cholecystectomy History of cholecystectomy Kalyani Crump MANAGER OF PROJECT MANAGEMENT - INTEGRATION ENGINEER Work Phone: Start: 01-13-2025 Plain chest X-ray Dr. Lena Mcfarland DO Work Phone: Start: 01-13-[address] Lena Mcfarland DO Work Phone: Start: 01-01-2025 CT of abdomen and pelvis without contrast Dr. Lena Mcfarland DO Work Phone: Start: 01-01-2025 Plain chest X-ray Dr. Lena Mcfarland DO Work Phone: Start: 01-01-2025 Urnls dip stick/tablet reagent auto microscopy Dr. Lena Mcfarland DO Work Phone: Start: 01-01-[address] Lena Mcfarland DO Work Phone: Start: 07-07-2024 Thyrotropin [Units/volume] in Serum or Plasma Kalyani Crump MANAGER OF PROJECT MANAGEMENT - INTEGRATION ENGINEER Work Phone: Start: 05-26-2024 Basic metabolic panel calcium total Roxanne Skiffey DO Work Phone: Start: 05-26-2024 Ecg routine ecg w/least 12 lds trcg only w/o i&r Nerissa Dawn DO Work Phone: Start: 04-03-2024 Electrocardiogram SAMMY LUTHER Start: 03-13-2024 Echocardiography SAMMY LUTHER Start: 03-11-2024 History of coronary artery bypass grafting Hx of CABG Abiola Meng RT(R) Start: 02-27-2024 Glucose quantitative blood xcpt reagent strip Miguelangel Kusar DO Work Phone: Start: 02-27-2024 Basic metabolic panel calcium total Thai Landry MD Work Phone: Start: 02-26-2024 Glucose quantitative blood xcpt reagent strip Miguelangel Kusar DO Work Phone: Start: 02-26-2024 Glucose quantitative blood xcpt reagent strip Miguelangel Kusar DO Work Phone: Start: 02-26-2024 Radiologic exam chest single view Miguelangel Kusar DO Work Phone: Start: 02-26-2024 Glucose quantitative blood xcpt reagent strip Miguelangel Kusar DO Work Phone: Start: 02-26-2024 Glucose quantitative blood xcpt reagent strip Miguelangel Kusar DO Work Phone: Start: 02-26-2024 OXYGEN THERAPY Kelsey Ibanez DO Work Phone: Start: 02-26-2024 Basic metabolic panel calcium total Thai Landry MD Work Phone: Start: 02-25-2024 Glucose quantitative blood xcpt reagent strip Miguelangel Kusar DO Work Phone: Start: 02-25-2024 Glucose quantitative blood xcpt reagent strip Miguelangel Kusar DO Work Phone: Start: 02-25-2024 OXYGEN THERAPY Kelsey Ibanez DO Work Phone: Start: 02-25-2024 End: 02-25-2024 Basic metabolic panel calcium total Thai Landry MD Work Phone: Start: 02-24-2024 Glucose quantitative blood xcpt reagent strip Miguelangel Kusar DO Work Phone: Start: 02-24-2024 Glucose quantitative blood xcpt reagent strip Miguelangel Kusar DO Work Phone: Start: 02-24-2024 Glucose quantitative blood xcpt reagent strip Miguelangel Kusar DO Work Phone: Start: 02-24-2024 OXYGEN THERAPY Kelsey Ibanez DO Work Phone: Start: 02-24-2024 Glucose quantitative blood xcpt reagent strip Miguelangel Kusar DO Work Phone: Start: 02-24-2024 Basic metabolic panel calcium total Thai Landry MD Work Phone: Start: 02-23-2024 Glucose quantitative blood xcpt reagent strip Donny Landry MD Work Phone: Start: 02-23-2024 Glucose quantitative blood xcpt reagent strip Donny Landry MD Work Phone: Start: 02-23-2024 Glucose quantitative blood xcpt reagent strip Donny Landry MD Work Phone: Start: 02-23-2024 Glucose quantitative blood xcpt reagent strip Donny Landry MD Work Phone: Start: 02-23-2024 Basic metabolic panel calcium total Thai Landry MD Work Phone: Start: 02-22-2024 Glucose quantitative blood xcpt reagent strip Donny Landry MD Work Phone: Start: 02-22-2024 Glucose quantitative blood xcpt reagent strip Donny Landry MD Work Phone: Start: 02-22-2024 Glucose quantitative blood xcpt reagent strip Donny Landry MD Work Phone: Start: 02-21-2024 OXYGEN THERAPY Kelsey Ibanez DO Work Phone: Start: 02-21-2024 OXYGEN THERAPY Kelsey Ibanez DO Work Phone: Start: 02-21-2024 End: 02-21-2024 Basic metabolic panel calcium total Thai Landry MD Work Phone: Start: 02-20-2024 OXYGEN THERAPY Kelsey Ibanez DO Work Phone: Start: 02-20-2024 Glucose quantitative blood xcpt reagent strip Thai Landry MD Work Phone: Start: 02-20-2024 Glucose quantitative blood xcpt reagent strip Thai Landry MD Work Phone: Start: 02-20-2024 Glucose quantitative blood xcpt reagent strip Thai Landry MD Work Phone: Start: 02-20-2024 Glucose quantitative blood xcpt reagent strip Thai Landry MD Work Phone: Start: 02-20-2024 OXYGEN THERAPY Kelsey Ibanez DO Work Phone: Start: 02-19-2024 Glucose quantitative blood xcpt reagent strip Miguelangel Lopez DO Work Phone: Start: 02-19-2024 Glucose quantitative blood xcpt reagent strip Donny Landry MD Work Phone: Start: 02-19-2024 Glucose quantitative blood xcpt reagent strip Donny Landry MD Work Phone: Start: 02-19-2024 Glucose quantitative blood xcpt reagent strip Donny Landry MD Work Phone: Start: 02-19-2024 Thoracentesis needle/cath pleura w/imaging Fatoumata Zheng MD Work Phone: Start: 02-19-2024 Glucose quantitative blood xcpt reagent strip Donny Landry MD Work Phone: Start: 02-18-2024 Glucose quantitative blood xcpt reagent strip Fatoumata Zheng MD Work Phone: Start: 02-18-2024 Glucose quantitative blood xcpt reagent strip Fatoumata Zheng MD Work Phone: Start: 02-18-2024 Glucose quantitative blood xcpt reagent strip Fatoumata Zheng MD Work Phone: Start: 02-18-2024 Glucose quantitative blood xcpt reagent strip Fatoumata Zheng MD Work Phone: Start: 02-18-2024 Basic metabolic panel calcium total Mercedes J Wells APPLICATION DBA Work Phone: Start: 02-17-2024 Glucose quantitative blood xcpt reagent strip Fatoumata Zheng MD Work Phone: Start: 02-17-2024 Glucose quantitative blood xcpt reagent strip Fatoumata Zheng MD Work Phone: Start: 02-17-2024 End: 02-17-2024 Glucose quantitative blood xcpt reagent strip Fatoumata Zheng MD Work Phone: Start: 02-16-2024 Glucose quantitative blood xcpt reagent strip Fatoumata Zheng MD Work Phone: Start: 02-16-2024 OXYGEN THERAPY Kelsey Ibanez DO Work Phone: Start: 02-16-2024 Glucose quantitative blood xcpt reagent strip Fatoumata Zheng MD Work Phone: Start: 02-16-2024 Thoracentesis needle/cath pleura w/imaging Fatoumata Zheng MD Work Phone: Start: 02-16-2024 BODY FLUID CELL COUNT WITH REFLEX DIFF Fatoumata Zheng MD Work Phone: Start: 02-16-2024 BODY FLUID DIFFERENTIAL Fatoumata Zheng MD Work Phone: Start: 02-16-2024 Culture bacterial any source anaerobic iso&id Fatoumata Zheng MD Work Phone: Start: 02-16-2024 Cytp slctv cell enhancement interpj xcpt c/v Fatoumata Zheng MD Work Phone: Start: 02-16-2024 Other source albumin quantitative each specimen Fatoumata Zheng MD Work Phone: Start: 02-16-2024 Ph body fluid not elsewhere specified Fatoumata Zheng MD Work Phone: Start: 02-16-2024 End: 02-16-2024 Prothrombin time Fatoumata Zheng MD Work Phone: Start: 02-16-2024 Glucose quantitative blood xcpt reagent strip Fatoumata Zheng MD Work Phone: Start: 02-16-2024 OXYGEN THERAPY Kelsey Iabnez DO Work Phone: Start: 02-15-2024 OXYGEN THERAPY Kelsey Ibanez DO Work Phone: Start: 02-15-2024 Glucose quantitative blood xcpt reagent strip Fatoumata Zheng MD Work Phone: Start: 02-15-2024 Glucose quantitative blood xcpt reagent strip Fatoumata Zheng MD Work Phone: Start: 02-15-2024 Glucose quantitative blood xcpt reagent strip Fatoumata Zheng MD Work Phone: Start: 02-15-2024 TTE w or wo fol wcon,Doppler Dora Madden MANAGER OF PROJECT MANAGEMENT - INTEGRATION ENGINEER Work Phone: Start: 02-15-2024 Glucose quantitative blood xcpt reagent strip Fatoumata Zheng MD Work Phone: Start: 02-15-2024 OXYGEN THERAPY Kelsey Ibanez DO Work Phone: Start: 02-15-2024 Basic metabolic panel calcium total Shawn Hernandez MD Work Phone: Start: 02-14-2024 Glucose quantitative blood xcpt reagent strip Fatoumata Zheng MD Work Phone: Start: 02-14-2024 OXYGEN THERAPY Kelsey Ibanez DO Work Phone: Start: 02-14-2024 Glucose quantitative blood xcpt reagent strip Fatoumata Zheng MD Work Phone: Start: 02-14-2024 Glucose quantitative blood xcpt reagent strip Fatoumata Zheng MD Work Phone: Start: 02-14-2024 Ct thorax w/o contrast material Dora Madden MANAGER OF PROJECT MANAGEMENT - INTEGRATION ENGINEER Work Phone: Start: 02-14-2024 Glucose quantitative blood xcpt reagent strip Fatoumata Zheng MD Work Phone: Start: 02-14-2024 Glucose quantitative blood xcpt reagent strip Fatoumata Zheng MD Work Phone: Start: 02-14-2024 OXYGEN THERAPY Kelsey Ibanez DO Work Phone: Start: 02-14-2024 Basic metabolic panel calcium total Shawn Hernandez MD Work Phone: Start: 02-13-2024 Glucose quantitative blood xcpt reagent strip Fatoumata Zheng MD Work Phone: Start: 02-13-2024 OXYGEN THERAPY Kelsey Ibanez DO Work Phone: Start: 02-13-2024 Glucose quantitative blood xcpt reagent strip Fatoumata Zheng MD Work Phone: Start: 02-13-2024 Blood gases any combination ph pco2 po2 co2 hco3 Wally Chávez DO Work Phone: Start: 02-13-2024 OXYGEN THERAPY Kelsey DO Work Phone: Start: 02-12-2024 End: 02-13-2024 Basic metabolic panel calcium total Shawn Hernandez MD Work Phone: Start: 02-13-2024 Blood gases any combination ph pco2 po2 co2 hco3 Manuel Atkins MD Work Phone: Start: 02-12-2024 OXYGEN THERAPY Kelsey DO Work Phone: Start: 02-12-2024 Assay of troponin quantitative Kelsey DO Work Phone: Start: 02-12-2024 Assay of troponin quantitative Kelsey DO Work Phone: Start: 02-12-2024 OXYGEN THERAPY Kelsey Ibanez DO Work Phone: Start: 02-12-2024 Comprehensive metabolic panel Kelsey Ibanez DO Work Phone: Start: 02-12-2024 Radiologic exam chest single view Kelsey DO Work Phone: Start: 02-12-2024 Ecg routine ecg w/least 12 lds trcg only w/o i&r Kelsey Ibanez DO Work Phone: Start: 01-30-2024 Glucose quantitative blood xcpt reagent strip Nazanin Smith MD Work Phone: Start: 01-30-2024 Glucose quantitative blood xcpt reagent strip Nazanin Smith MD Work Phone: Start: 01-30-2024 Glucose quantitative blood xcpt reagent strip Nazanin Smith MD Work Phone: Start: 01-30-2024 Glucose quantitative blood xcpt reagent strip Nazanin Smith MD Work Phone: Start: 01-30-2024 Comprehensive metabolic panel Kanwal Simms MD Work Phone: Start: 01-29-2024 Glucose quantitative blood xcpt reagent strip Nazanin Smith MD Work Phone: Start: 01-29-2024 Glucose quantitative blood xcpt reagent strip Nazanin Smith MD Work Phone: Start: 01-29-2024 Glucose quantitative blood xcpt reagent strip Nazanin Smith MD Work Phone: Start: 01-29-2024 Glucose quantitative blood xcpt reagent strip Nazanin Smith MD Work Phone: Start: 01-29-2024 Glucose quantitative blood xcpt reagent strip Nazanin Smith MD Work Phone: Start: 01-29-2024 OXYGEN THERAPY Jaleel Duvall MD Work Phone: Start: 01-29-2024 Comprehensive metabolic panel Kanwal Simms MD Work Phone: Start: 01-28-2024 Glucose quantitative blood xcpt reagent strip Nazanin Smith MD Work Phone: Start: 01-28-2024 OXYGEN THERAPY Jaleel Duvall MD Work Phone: Start: 01-28-2024 Blood count hematocrit Jaleel Duvall MD Work Phone: Start: 01-28-2024 Compatibility each unit electronic Jaleel Duvall MD Work Phone: Start: 01-28-2024 End: 01-28-2024 TRANSFUSE RED BLOOD CELLS Jaleel cornell MD Work Phone: Start: 01-28-2024 Glucose quantitative blood xcpt reagent strip Nazanin Smith MD Work Phone: Start: 01-28-2024 Glucose quantitative blood xcpt reagent strip Nazanin Smith MD Work Phone: Start: 01-28-2024 OXYGEN THERAPY Jaleel Duvall MD Work Phone: Start: 01-28-2024 Glucose quantitative blood xcpt reagent strip Nazanin Smith MD Work Phone: Start: 01-28-2024 Blood typing serologic rh (d) Jaleel Duvall MD Work Phone: Start: 01-28-2024 Blood count complete automated Kanwal Simms MD Work Phone: Start: 01-28-2024 Glucose quantitative blood xcpt reagent strip Nazanin Smith MD Work Phone: Start: 01-28-2024 Glucose quantitative blood xcpt reagent strip Nazanin Smith MD Work Phone: Start: 01-27-2024 Glucose quantitative blood xcpt reagent strip Nazanin Smith MD Work Phone: Start: 01-27-2024 POCT GLUCOSE METER UNSOLICITED RESULTS Nazanin Smith MD Work Phone: Start: 01-27-2024 Comprehensive metabolic panel Kanwal Simms MD Work Phone: Start: End: 01-27-2024 POCT GLUCOSE METER UNSOLICITED RESULTS Jaleel Duvall MD Work Phone: Start: 01-27-2024 Comprehensive metabolic panel Kanwal Simms MD Work Phone: Start: 01-26-2024 OXYGEN THERAPY Jaleel Duvall MD Work Phone: Start: 01-26-2024 Glucose quantitative blood xcpt reagent strip Jaleel Duvall MD Work Phone: Start: 01-26-2024 OXYGEN THERAPY Jaleel Duvall MD Work Phone: Start: 01-26-2024 Glucose quantitative blood xcpt reagent strip Jaleel Duvall MD Work Phone: Start: 01-26-2024 Comprehensive metabolic panel Kanwal Simms MD Work Phone: Start: 01-25-2024 Glucose quantitative blood xcpt reagent strip Jaleel Duvall MD Work Phone: Start: 01-25-2024 Glucose quantitative blood xcpt reagent strip Jaleel Duvall MD Work Phone: Start: 01-25-2024 End: 01-25-2024 Culture bacterial any source anaerobic iso&id Arun Lancaster MD Work Phone: Start: 01-25-2024 AEROBIC AND ANAEROBIC CULTURE WITH STAIN Arun Lancaster MD Work Phone: Start: 01-25-2024 BODY FLUID CELL COUNT WITH REFLEX DIFF Arun Lancaster MD Work Phone: Start: 01-25-2024 BODY FLUID DIFFERENTIAL Arun Lancaster MD Work Phone: Start: 01-25-2024 Ph body fluid not elsewhere specified Arun Lancaster MD Work Phone: Start: 01-25-2024 Thoracentesis needle/cath pleura w/imaging Arun Lancaster MD Work Phone: Start: 01-25-2024 Cytp slctv cell enhancement interpj xcpt c/v Arun Lancaster MD Work Phone: Start: 01-25-2024 Glucose quantitative blood xcpt reagent strip Jaleel Duvall MD Work Phone: Start: 01-25-2024 Comprehensive metabolic panel Kanwal Simms MD Work Phone: Start: 01-24-2024 OXYGEN THERAPY Jaleel Duvall MD Work Phone: Start: 01-24-2024 Glucose quantitative blood xcpt reagent strip Jaleel Duvall MD Work Phone: Start: 01-24-2024 Thoracentesis needle/cath pleura w/imaging Kanwal Simms MD Work Phone: Start: 01-24-2024 AEROBIC AND ANAEROBIC CULTURE WITH STAIN Arun Lancaster MD Work Phone: Start: 01-24-2024 Culture bacterial any source anaerobic iso&id Arun Lancaster MD Work Phone: Start: 01-24-2024 Cytp slctv cell enhancement interpj xcpt c/v Arun Lancaster MD Work Phone: Start: 01-24-2024 BODY FLUID CELL COUNT WITH REFLEX DIFF Arun Lancaster MD Work Phone: Start: 01-24-2024 BODY FLUID DIFFERENTIAL Arun Lancaster MD Work Phone: Start: 01-24-2024 End: 01-24-2024 Ph body fluid not elsewhere specified Arun Lancaster MD Work Phone: Start: 01-24-2024 Glucose quantitative blood xcpt reagent strip Jaleel Duvall MD Work Phone: Start: 01-24-2024 Glucose quantitative blood xcpt reagent strip Jaleel Duvall MD Work Phone: Start: 01-24-2024 Comprehensive metabolic panel Kanwal Simms MD Work Phone: Start: 01-23-2024 OXYGEN THERAPY Jaleel Duvall MD Work Phone: Start: 01-23-2024 Glucose quantitative blood xcpt reagent strip Jaleel Duvall MD Work Phone: Start: 01-23-2024 Glucose quantitative blood xcpt reagent strip Amanda Wild DO Work Phone: Start: 01-23-2024 Glucose quantitative blood xcpt reagent strip Amanda Wild DO Work Phone: Start: 01-23-2024 Bacteria identified in Blood by Culture Jaleel Duvall MD Work Phone: Start: 01-23-2024 Assay of ferritin Kaushal Santiago MD Work Phone: Start: 01-23-2024 Ct angiography chest w/contrast/noncontrast Pepe Gleason MD Work Phone: Start: 01-22-2024 Assay of troponin quantitative Pepe Gleason MD Work Phone: Start: 01-22-2024 Radiologic exam chest single view Pepe Gleason MD Work Phone: Start: 01-22-2024 End: 01-22-2024 Basic metabolic panel calcium total Pepe Gleason MD Work Phone: Start: 01-22-2024 SARS-COV-2, FLU A/B, AND RSV COMBO Pepe Gleason MD Work Phone: Start: 01-22-2024 Ecg routine ecg w/least 12 lds trcg only w/o i&r Radhika Becker MD Work Phone: Start: 01-21-2024 Blood count complete automated Jessica Buck MD Work Phone: Start: 01-18-2024 Assay of ferritin Thai Clinton APRN.INTEGRATION ENGINEER Work Phone: Start: 01-17-2024 Blood count complete automated Jessiac Buck MD Work Phone: Start: 01-17-2024 Hepatitis b surf antibody hbsab Mercedes Wells APRN.INTEGRATION ENGINEER Work Phone: Start: 01-17-2024 Iaad ia hepatitis b surface antigen Mercedes Wells APRN.INTEGRATION ENGINEER Work Phone: Start: 01-16-2024 Ecg routine ecg w/least 12 lds i&r only Jerman Franz APRN Work Phone: Start: 01-14-2024 Blood count complete automated Jessica Buck MD Work Phone: Start: 01-12-2024 Blood count complete automated Jessica Buck MD Work Phone: Start: 11-21-2023 History of coronary artery bypass grafting S/P CABG (coronary artery bypass graft) Ronald Middleton MD Work Phone: Start: 11-15-2023 Thyrotropin [Units/volume] in Serum or Plasma Ronald Middleton MD Work Phone: Start: 11-13-2023 Plain chest X-ray Start: 02-23-2022 Lap Robotic Inguinal Hernia (Right) Dr. Morteza Anderson Work Phone: History of cholecystectomy Hx la paroscopic cholecystectomy History of coronary artery bypass grafting Hx of CABG Kalyani Crump MANAGER OF PROJECT MANAGEMENT - INTEGRATION ENGINEER Work Phone: Plan of Treatment Date Care Activity Detail Author Start: 02-16-2026 Hepatitis B Vaccines (4 of 4 - Risk Dialysis Recombivax 3-dose series) Hepatitis B Vaccines (4 of 4 - Risk Dialysis Recombivax 3-dose series) [facility] Start: 10-09-2025 Complete blood count Hemoglobin/Hematocrit [facility] Start: 10-09-2025 Creatinine measurement Serum Creatinine [facility] Start: 07-31-2025 Depression Monitoring Depression Monitoring [facility] Start: 07-28-2025 End: 07-28-2025 Patient encounter procedure 07/28/2025 1:15 PM EST Office Visit [facility] [address] [place] [address] Hamida Alexander, MANAGER OF PROJECT MANAGEMENT - INTEGRATION ENGINEER [address] [place] [address] [facility] Start: 07-26-2025 Medicare Annual Wellness (AWV) Medicare Annual Wellness (AWV) [facility] Start: 07-07-2025 Thyroid stimulating hormone measurement TSH Level [facility] Start: 07-07-2025 End: 07-07-2025 Patient encounter procedure 07/07/2025 10:00 AM EST [facility] [address] [place] [address] [place] [address] Bridenthal, Kalyani, MANAGER OF PROJECT MANAGEMENT - INTEGRATION ENGINEER [address] [place] [address] [place] [address] [facility] Start: 06-02-2025 End: 06-02-2025 Patient encounter procedure 06/02/2025 2:20 PM EDT [facility] [address] [place] [address] [place] [address] Bridenthal, Kalyani, MANAGER OF PROJECT MANAGEMENT - INTEGRATION ENGINEER [address] [place] [address] [place] [address] [facility] Start: 05-26-2025 Creatinine measurement Creatinine Level [facility] Start: 05-26-2025 Potassium measurement Potassium Level [facility] Start: 05-14-2025 End: 05-14-2025 Patient encounter procedure 05/14/2025 8:00 AM EDT Appointment [facility] [address] [place] [id number] [facility] Start: 05-05-2025 Complete blood count Hemoglobin/Hematocrit [facility] Start: 05-05-2025 Creatinine measurement Serum Creatinine [facility] Start: 04-30-2025 End: 04-30-2027 Cardiac youth nutritional monitor (30 days) Cardiac youth nutritional monitor (30 days) [facility] Routine Paroxysmal atrial fibrillation (HCC) Expected: 04/30/2025, Expires: 04/30/2027 [facility] Work Phone: Comment on above: Expected: 04/30/2025, Expires: Start: 04-30-2025 End: 04-30-2026 CBC W Auto Differential panel - Blood CBC auto differential Lab Routine Paroxysmal atrial fibrillation (HCC) Coronary artery disease involving [place] heart without angina pectoris, unspecified vessel or lesion type Expected: 04/30/2025 (Approximate), Expires: 04/30/2026 [facility] Comment on above: Expected: 04/30/2025 (Approximate), Expi res: 04/30/2026 Start: 04-30-2025 End: 04-30-2026 Comprehensive metabolic 1998 panel - Serum or Plasma Comprehensive metabolic panel Lab Routine Paroxysmal atrial fibrillation (HCC) Coronary artery disease involving [place] heart without angina pectoris, unspecified vessel or lesion type Expected: 04/30/2025 (Approximate), Expires: 04/30/2026 [facility] Comment on above: Expected: 04/30/2025 (Approximate), Expi res: 04/30/2026 Start: 04-30-2025 End: 04-30-2026 Lipid 1996 panel - Serum or Plasma Lipid panel Lab Routine Paroxysmal atrial fibrillation (HCC) Coronary artery disease involving [place] heart without angina pectoris, unspecified vessel or lesion type Expected: 04/30/2025 (Approximate), Expires: 04/30/2026 [facility] Comment on above: Expected: 04/30/2025 (Approximate), Expi res: 04/30/2026 Start: 04-30-2025 End: 04-30-2025 Patient encounter procedure 04/30/2025 8:40 AM EDT Office [facility] [address] [place] [id number] Amy Alaniz MD [address] [place] [id number] [facility] Start: 04-09-2025 End: 04-09-2025 Clinical Support [facility] Start: 04-06-2025 COVID-19 Vaccine ( season) COVID-19 Vaccine () [facility] Start: 04-06-2025 Influenza vaccination [facility] Start: 03-12-2025 End: 03-12-2025 Patient encounter procedure 03/12/2025 8:40 AM EDT Office Visit [facility] [address] [place] [phone] Amy Alaniz MD [address] [place] [address] [address] [place] [address] [facility] [place] Start: 03-10-2025 End: 03-10-2025 Clinical Support 03/10/2025 9:00 AM EDT Clinical Support [facility] [place] [address] [place] [address] [place] [address] [facility] Start: 03-03-2025 End: 03-03-2025 Patient encounter procedure 03/03/2025 3:20 PM EDT Office Visit [facility] [place] [address] [place] [address] [place] [address] Kalyani Crump, MANAGER OF PROJECT MANAGEMENT - INTEGRATION ENGINEER [address] [place] [address] [place] [address] [facility] Start: 03-03-2025 End: 03-03-2026 Thyrotropin [Units/volume] in Serum or Plasma TSH Lab Routine Weight loss Expected: 03/03/2025 (Approximate), Expires: 03/03/2026 [facility] Work Phone: Comment on above: Expected: 03/03/2025 (Approximate), Expi res: 03/03/2026 Start: 02-26-2025 Creatinine measurement [facility] Start: 02-26-2025 Potassium measurement [facility] Start: 02-14-2025 Echocardiography Echocardiogram [facility] Start: 02-14-2025 [facility] Start: 02-05-2025 Creatinine measurement Creatinine Level [facility] Start: 02-05-2025 Potassium measurement Potassium Level [facility] Start: 01-31-2025 Creatinine measurement Creatinine Level [facility] Start: 01-31-2025 Potassium measurement Potassium Level [facility] Start: 01-30-2025 Creatinine measurement Creatinine Level [facility] Start: 01-30-2025 Potassium measurement Potassium Level [facility] Start: 01-29-2025 Creatinine measurement Creatinine Level [facility] Start: 01-29-2025 Potassium measurement Potassium Level [facility] Start: 01-21-2025 Creatinine measurement Creatinine Level [facility] Start: 01-21-2025 Potassium measurement Potassium Level [facility] Start: 01-14-2025 [facility] Start: 01-13-2025 [facility] Start: 01-13-2025 Referral to service [facility] Start: 01-13-2025 End: 01-13-2025 [facility] Start: 01-01-2025 [facility] Start: 01-01-2025 [facility] Start: 11-24-2024 Echocardiography Echocardiogram [facility] Start: 11-19-2024 End: 11-19-2024 Patient encounter procedure 11/19/2024 11:20 AM EDT Office Visit Endocrinology [address] [address] Estefani Hoffman MD [address] [place] [address] Hospital follow up: Dm type 2 Endocrinology Comment on above: Hospital follow up: Dm type 2 Start: 11-14-2024 Hepatitis B surface antibody level LDL Cholesterol [facility] Start: 11-14-2024 Thyroid stimulating hormone measurement [facility] Start: 08-06-2024 Advance Directive Discussion Advance Directive Discussion [facility] Start: 06-12-2024 Depression Monitoring Depression Monitoring [facility] Start: 05-16-2024 Hemoglobin A1c measurement HbA1C [facility] Start: 05-12-2024 End: 05-12-2024 Patient encounter procedure 05/12/2024 11:30 AM EDT Office Visit [facility] [place] [address] [place] [phone] Dora Madden, MANAGER OF PROJECT MANAGEMENT - INTEGRATION ENGINEER [address] [place] [address] [facility] Cardiovascular [facility] [place] Start: 04-06-2024 COVID-19 Vaccine ( season) COVID-19 Vaccine () [facility] Start: 04-06-2024 Covid-19 Vaccine ( season) Covid-19 Vaccine ( season) [facility] Start: 04-06-2024 Influenza vaccination [facility] Start: 04-06-2024 [facility] Start: 03-27-2024 End: 03-27-2024 Patient encounter procedure 03/27/2024 11:00 AM EDT Office Visit [facility] [address] [place] [phone] Dora Madden APRN - INTEGRATION ENGINEER [address] [place] [address] [facility] Start: 02-21-2024 End: 02-21-2024 Patient encounter procedure 02/21/2024 10:00 AM EDT Office Visit [facility] [address] [place] [phone] Uzair Figueredo MD [address] [place] [address] [facility] Start: 02-11-2024 End: 02-10-2025 US guided thoracentesis US guided thoracentesis Imaging STAT Pleural effusion in other conditions classified elsewhere Expected: 02/11/2024, Expires: 02/10/2025 [facility] Work Phone: Comment on above: Expected: 02/11/2024, Expires: Start: 01-23-2024 End: 01-23-2024 Patient encounter procedure 01/23/2024 11:00 AM EDT Office Visit [facility] [address] [place] [phone] Dora Madden APRN - INTEGRATION ENGINEER [address] [place] [address] [facility] Start: 01-08-2024 End: 01-08-2024 Patient encounter procedure 01/08/2024 10:00 AM EDT Office Visit [facility] [address] [place] [phone] Dora Madden, MANAGER OF PROJECT MANAGEMENT - INTEGRATION ENGINEER [address] [place] [address] [facility] Start: 11-13-2023 Hospital admission, emergency, from emergency room, medical nature [facility] Start: 11-13-2023 Creatinine [Mass/volume] in Urine [facility] Start: 11-13-2023 Sodium [Moles/volume] in Urine [facility] Start: 11-13-2023 US urinary tract Kidney and Bladder [facility] Start: 11-13-2023 Admission procedure [facility] Start: 08-06-2023 Advance Directive Discussion Advance Directive Discussion [facility] Start: 04-06-2023 COVID-19 Vaccine ( season) COVID-19 Vaccine () [facility] Start: 04-06-2023 [facility] Start: 2022 RSV Immunization for Adults (1 - 1-dose 75+ series) RSV Immunization for Adults (1 - 1-dose 75+ series) [facility] Start: 2022 RSV Vaccine (1 - 1-dose 75+ series) RSV Vaccine (1 - 1-dose 75+ series) [facility] Start: 02-23-2022 Anesthesia intraperitoneal lower abd w/laps nos ANESTH SURG LOWER ABDOMEN [facility] Work Phone: Start: 02-23-2022 Laparoscopy surg rpr initial inguinal hernia LAP ING HERNIA REPAIR INIT [facility] Work Phone: Start: 02-23-2022 Introduction of urinary catheter [facility] Work Phone: Start: 02-23-2022 Patient discharge [facility] Work Phone: Start: 02-14-2022 Electrocardiographic procedure [facility] Work Phone: Start: 2007 RSV Immunization aged 60 or older (1 - 1-dose 60+ series) RSV Immunization aged 60 or older (1 - 1-dose 60+ series) [facility] Start: 2007 [facility] Start: 1997 Shingrix Vaccine (1 of 2) Shingrix Vaccine (1 of 2) [facility] Start: 1997 Zoster Vaccines (1 of 2) Zoster Vaccines (1 of 2) [facility] Start: 1997 [facility] Start: 1967 Hepatitis B Vaccines (1 of 3 - Risk Dialysis 4-dose series) Hepatitis B Vaccines (1 of 3 - Risk Dialysis 4-dose series) [facility] Start: 1967 [facility] Start: 1966 DTaP/Tdap/Td Vaccines (1 - Tdap) DTaP/Tdap/Td Vaccines (1 - Tdap) [facility] Start: 1966 Pneumococcal Vaccine: 50+ (1 of 2 - PCV) Pneumococcal Vaccine: 50+ (1 of 2 - PCV) [facility] Start: 1966 Pneumococcal Vaccine: 50+ Years (1 of 2 - PCV) Pneumococcal Vaccine: 50+ Years (1 of 2 - PCV) [facility] Start: 1966 Urine microalbumin profile DTaP,Tdap,Td Vaccine (1 - Tdap) [facility] Start: 1966 [facility] Start: 1965 Annual PCP Team Chronic Disease Visit Annual PCP Team Chronic Disease Visit [facility] Start: 1965 Anxiety Screening Anxiety Screening [facility] Start: 1965 BP Controlled (<130/80) BP Controlled (<130/80) [facility] Start: 1965 Hepatitis C screening [facility] Start: 1965 Spirometry Spirometry [facility] Start: 1959 Depression Screening Depression Screening [facility] Start: 1959 [facility] Start: 1957 Diabetic foot examination Diabetic Foot Exam [facility] Start: 1957 Glaucoma screening Dilated Retinal Exam [facility] Start: 1953 Pneumococcal Vaccine: 65+ (1 of 2 - PCV) Pneumococcal Vaccine: 65+ (1 of 2 - PCV) [facility] Start: 1953 Pneumococcal Vaccine: 65+ Years (1 of 2 - PCV) Pneumococcal Vaccine: 65+ Years (1 of 2 - PCV) [facility] Start: 1953 [facility] Start: 1947 Medicare Annual Wellness (AWV) Medicare Annual Wellness (AWV) [email or web address] Start: 1945 [email or web address] End: 01-24-2024 Bacteria identified in Lower respiratory specimen by Aerobe culture Respiratory culture and Stain Microbiology Routine Once (Lab) for 1 Occurrences starting 01/24/2024 until 01/24/2024 [facility]: Once (Lab) for 1 Occurrences starting until 01/24/2024 End: 05-14-2025 Cardiac youth nutritional monitor (30 days) [employer] Work Phone: Comment on above: Once for 1 Occurrences starting 05/14/20 until 05/14/2025 End: 01-24-2024 Lactate dehydrogenase [Enzymatic activity/volume] in Serum or Plasma by Lactate to pyruvate reaction Lactate dehydrogenase Lab Routine Once (Lab) for 1 Occurrences starting 01/24/2024 until 01/24/2024 [employer] Work Phone: Comment on above: Once (Lab) for 1 Occurrences starting until 01/24/2024 End: 01-23-2024 Legionella and Streptococcus Urine Antigen Legionella and Streptococcus Urine Antigen Microbiology Routine Once (Lab) for 1 Occurrences starting 01/23/2024 until 01/23/2024 [employer] Work Phone: Comment on above: Once (Lab) for 1 Occurrences starting until 01/23/2024 Patient Education [facility] Work Phone: Patient referral [facility] Work Phone: Prostate specific an tigen measurement [facility] End: 01-24-2024 Respiratory pathogens DNA and RNA panel - Lower respiratory specimen by JESUS with non-probe detection Pneumonia PCR Panel Microbiology Routine Once (Lab) for 1 Occurrences starting 01/24/2024 until 01/24/2024 [facility] Comment on above: Once (Lab) for 1 Occurrences starting until 01/24/2024 Troponin T.cardiac [Mass/volume] in Serum or Plasma by High sensitivity method [facility] Troponin T.cardiac [Mass/volume] in Serum or Plasma by High sensitivity method [facility] Troponin T.cardiac [Mass/volume] in Serum or Plasma by High sensitivity method [facility] Payers Date Payer Category Payer Self-pay [id number] 2019 [facility] [id number] 2019 Medicare supplementa l policy (as second payer) ANTH MEDICARE SUPPLEMENT [id number] 2019 Unknown 2019 Unknown [id number] 2012 Medicare [id number] 2012 Medicare [id number] 2009 Unknown [id number] Unknown [id number] Unknown [id number] Unknown [id number] Unknown [id number] Unknown [id number] Unknown [id number] Unknown [id number] Social History Date Type Detail Facility Start: 02-14-2021 End: 11-13-2023 Tobacco smoking status NHIS Unknown if ever smoked [facility] Start: 07-16-2020 Spouse/ Significant Other [facility] Start: 1945 Sex Assigned At Male [facility] Start: 07-08-2017 None [facility] Start: 07-08-2017 Cigarettes [facility] Start: 12-20-2023 Tobacco smoking status NHIS Never smoked tobacco [facility] Start: 12-20-2023 End: 02-12-2024 Tobacco use and exposure Smokeless tobacco non-user [facility] Start: 12-20-2023 End: 02-12-2024 History of Social function [facility] Start: 12-20-2023 End: 02-12-2024 [facility] Utilities [facility] Has the [employer], or [employer] threatened to shut off services in your home in past 12Mo No [email or web address] (I/We) worried wheth er (my/our) food would run out before (I/we) got money to buy more. Never true [email or web address] In the past 12 month s, has lack of transportation kept you from medical appointments or from getting medications? No [facility] Start: 11-15-2023 Gender identity Identifies as male gender (finding) [facility] Start: 09-12-1959 Tobacco smoking status IAIS Smokes tobacco daily [facility] Start: 09-12-1961 End: 08-06-1997 History of tobacco use Cigarette Smoker [facility] Start: 12-18-2017 End: 10-06-2024 Alcohol intake Current non-drinker of alcohol (finding) [facility] Start: 09-12-2017 End: 03-11-2024 Tobacco Comment Down to 0.5 ppd (09/2017) [facility] Start: 1945 Sex Assigned At Not on file [facility] How often to you hav e a drink containing alcohol? Never [facility] Start: 02-12-2024 End: 04-30-2025 Tobacco smoking status [facility] Ex-smoker [facility] Start: 09-12-1959 End: 08-06-1997 History of tobacco use Current smoker [facility] Start: 02-12-2024 End: 06-02-2025 Alcoholic beverage intake Ex-drinker (finding) [facility] Start: 03-06-2022 Sex Male (finding) [facility] Start: 04-30-2025 Tobacco use and exposure Former smokeless tobacco user [facility] History of tobacco use Chews Tobacco [facility] Start: 04-30-2025 Tobacco Comment Occasional when younger [facility] Medical Equipment Procedure Code Equipment Code Equipment Origin al Text Equipment Identifier Dates MESH,PRO DRY KILN WORKER [id number] FDA Start: 02-23-2022 MESH,PRO DRY KILN WORKER [id number] FDA Start: 02-23-2022 MESH,PRO DRY KILN WORKER [id number] FDA Start: 02-23-2022 MESH,PRO DRY KILN WORKER [id number] FDA Start: 02-23-2022 MESH,PRO DRY KILN WORKER [id number] FDA Start: 02-23-2022 [id number] Start: 11-21-2023 [id number] Start: 11-21-2023 Use to inject 1- 4 times daily as directed. [id number] Start: 02-27-2024 End: 02-26-2025 Use with blood glucose test three times a day. Insulin Dep? Yes [id number] Start: 10-09-2024 Use as directed [id number] Start: 10-09-2024 Use with blood glucose test three times a day. Insulin Dep? Yes [id number] Start: 10-09-2024 MESH,PRO DRY KILN WORKER [id number] FDA Start: 02-23-2022 MESH,PRO DRY KILN WORKER [id number] FDA Start: 02-23-2022 MESH,PRO DRY KILN WORKER [id number] FDA Start: 02-23-2022 MESH,PRO DRY KILN WORKER [id number] FDA Start: 02-23-2022 MESH,PRO DRY KILN WORKER [id number] FDA Start: 02-23-2022 Goals Date Patient Goal Desired Activity /State Functional Status Date Assessment Result Facility 01-29-2025 Patient Health Quest ionnaire 2 item (PHQ-2) [Reported] [facility] 01-29-2025 Generalized anxiety disorder 7 item (JOE-7) [facility] 10-09-2024 Are you deaf, or do you have serious difficulty hearing No 10/09/2024 3:14 PM Dana De La Paz RN No [facility] 10-09-2024 Are you blind, or do you have serious difficulty seeing, even when wearing glasses No 10/09/2024 3:14 PM Dana De La Paz, LINA No [facility] 10-09-2024 Do you have serious difficulty walking or climbing stairs Yes 10/09/2024 3:14 PM Dana De La Paz, LINA Yes [facility] 10-09-2024 Do you have difficul ty dressing or bathing No 10/09/2024 3:14 PM Dana De La Paz, LINA No [facility] 10-09-2024 Because of a physica l, mental, or emotional condition, do you have difficulty doing errands alone such as visiting a physician's office or shopping No 10/09/2024 3:14 PM Dana De La Paz, LINA No [facility] Mental Status Date Assessment Result Facility 01-13-2025 Cognitive function Voice/Name [facility] Work Phone: 01-01-2025 Cognitive function Level Of Cons ciousness Awake;Alert;Appropriate;Fol lows Commands [facility] Work Phone: 10-09-2024 Because of a physica l, mental, or emotional condition, do you have serious difficulty concentrating, remembering, or making decisions No 10/09/2024 3:14 PM Dana De La Paz, LINA No [facility] 02-23-2022 Cognitive function Voice/Name [facility] Work Phone: Clinical Notes 12-29-2023 to 06-12-2025 Telephone Encounter - Kimberly Mittal MA - 06/12/2025 8:55 AM ESTTelephone Encounter - Kimberly Mittal MA - 06/12/2025 8:55 AM ESTTelephone Encounter - MALINA Leon CNP - 06/11/2025 4:26 PM EST Note Date & Type Note Facility 06-12-2025 Telephone encount er Note done [facility] 06-12-2025 Miscellaneous Notes Formattin g of this note might be different from the original. done I did and put them up front in the basket earlier today Ok to send once we get the request. Name of caller: Janene Hdz Contact phone number: [phone] Relationship to Patient: Pharmacy Provider: MALINA Leon CNP Practice: [facility] Chief Complaint/Reason for Call: Janene calling and has a medicare audit that is due by this Sunday and needs the office visit notes that includes his CGM supplies from his 03/03/25 visit. Can fax that over to Janene's direct line [phone] and she will be faxing over the documentation request for the office's records. Please advise Best time of day caller can be reached: any Patient advised that office/PCP has 24-48 business hours to return their call: No documented in this encounter [email or web address] 06-11-2025 Telephone encount er Note I did and put them up front in the basket earlier today [email or web address] 06-10-2025 Telephone encount er Note Ok to send once we get the request. [email or web address] 06-10-2025 Telephone encount er Note Name of caller: Janene Hdz Contact phone number: [phone] Relationship to Patient: Pharmacy Provider: MALINA Leon CNP [facility]: [facility] Chief Complaint/Reason for Call: Janene calling and has a medicare audit that is due by this Sunday and needs the office visit notes that includes his CGM supplies from his 03/03/25 visit. Can fax that over to Janene's direct line [phone] and she will be faxing over the documentation request for the office's records. Please advise Best time of day caller can be reached: any Patient advised that office/PCP has 24-48 business hours to return their call: No [email or web address] 06-02-2025 Evaluation + Plan note Associated Problem(s): Primary hypertension Initial and repeat elevated. Patient to take his blood pressure medication when he gets home and monitor bp daily at home. Notify provider if remains elevated [email or web address] 06-02-2025 Miscellaneous Notes Associate d Problem(s): Primary hypertension Initial and repeat elevated. Patient to take his blood pressure medication when he gets home and monitor bp daily at home. Notify provider if remains elevated Associated Problem(s): Type 2 diabetes mellitus with kidney complication, without long-term current use of insulin (HCC) Controlled. Continue to monitor with CGM. Currently not on medications. Last hemoglobin A1c was 5.7 Associated Problem(s): Weight loss Improving. Most likely was related to chronic illness and depression. Has gained about 10 lbs since starting the remeron. Will increase to 15 mg nightly Associated Problem(s): End stage renal disease (HCC) Managed by nephrology, continue hemodialysis as directed Associated Problem(s): Centrilobular emphysema (HCC) Stable. Currently not on any medications and denies any symptoms Associated Problem(s): Atrial fibrillation (HCC) Apical regular. Continue current medications. 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 Denies any chest pain. Continue with current medications- follow up with cardiology Associated Problem(s): Anxiety OARRS reviewed and consistent with treatment plan. CS MA in place. At this time we will continue lorazepam 0.5 mg nightly if needed for anxiety documented in this encounter [facility] 06-02-2025 Evaluation + Plan note Associated Problem(s): Type 2 diabetes mellitus with kidney complication, without long-term current use of insulin (HCC) Controlled. Continue to monitor with CGM. Currently not on medications. Last hemoglobin A1c was 5.7 [facility] 06-02-2025 Evaluation + Plan note Associated Problem(s): Weight loss Improving. Most likely was related to chronic illness and depression. Has gained about 10 lbs since starting the remeron. Will increase to 15 mg nightly [facility] 06-02-2025 Evaluation + Plan note Associated Problem(s): End stage renal disease (HCC) Managed by nephrology, continue hemodialysis as directed [facility] 06-02-2025 Evaluation + Plan note Associated Problem(s): Centrilobular emphysema (HCC) Stable. Currently not on any medications and denies any symptoms [facility] 06-02-2025 Evaluation + Plan note Associated Problem(s): Atrial fibrillation (HCC) Apical regular. Continue current medications. 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 Denies any chest pain. Continue with current medications- follow up with cardiology [facility] 06-02-2025 Evaluation + Plan note Associated Problem(s): Anxiety OARRS reviewed and consistent with treatment plan. CS MA in place. At this time we will continue lorazepam 0.5 mg nightly if needed for anxiety [facility] 06-02-2025 Note OARRS reviewed and c onsistent with treatment plan. CS MA in place. At this time we will continue lorazepam 0.5 mg nightly if needed for anxiety [facility] 06-02-2025 History of Presen t illness Narrative Patient was identified by name and Date of . Health Maintenance Due Topic Medicare Annual Wellness (AWV) Hepatitis C Screening DTaP/Tdap/Td Vaccines (1 - Tdap) Pneumococcal Vaccine: 50+ Years (1 of 2 - PCV) Zoster Vaccines (1 of 2) RSV Immunization for Adults (1 - 1-dose 75+ series) Echocardiogram Influenza Vaccine (1) COVID-19 Vaccine ( season) Creatinine Level Potassium Level Images from the original note were not included. 06/02/2025 Jose John (: 1945) is a 80 y.o. male , Established patient, here for evaluation of the following chief complaint(s): Diabetes ASSESSMENT/PLAN: 1. Type 2 diabetes mellitus with chronic kidney disease on chronic dialysis, without long-term current use of insulin (HCC) Assessment & Plan: Controlled. Continue to monitor with CGM. Currently not on medications. Last hemoglobin A1c was 5.7 2. Anxiety Assessment & Plan: OARRS reviewed and consistent with treatment plan. CS MA in place. At this time we will continue lorazepam 0.5 mg nightly if needed for anxiety Orders: - mirtazapine (Remeron) 15 MG tablet; Take 1 tablet (15 mg) by mouth Nightly., Starting Sun06/02/2025, Until 11/29/2025, Normal - LORazepam (Ativan) 0.5 MG tablet; Take 1 tablet (0.5 mg) by mouth Nightly as needed for anxiety., Starting Sun06/02/2025, Until Josie 07/02/2025 at 2359, Normal 3. Weight loss Assessment & Plan: Improving. Most likely was related to chronic illness and depression. Has gained about 10 lbs since starting the remeron. Will increase to 15 mg nightly Orders: - mirtazapine (Remeron) 15 MG tablet; Take 1 tablet (15 mg) by mouth Nightly., Starting Sun06/02/2025, Until 11/29/2025, Normal 4. 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 Denies any chest pain. Continue with current medications- follow up with cardiology 5. Atrial fibrillation, unspecified type (HCC) Assessment & Plan: Apical regular. Continue current medications. Follow up with cardiology 6. Centrilobular emphysema (HCC) Assessment & Plan: Stable. Currently not on any medications and denies any symptoms 7. End stage renal disease (HCC) Assessment & Plan: Managed by nephrology, continue hemodialysis as directed 8. Primary hypertension Assessment & Plan: Initial and repeat elevated. Patient to take his blood pressure medication when he gets home and monitor bp daily at home. Notify provider if remains elevated Follow up in about 1 month (around 07/03/2025). SUBJECTIVE/OBJECTIVE: HPI - Jose John (: 1945) is a 80 y.o. male , Established patient, here for the evaluation of the following chief complaint(s): Diabetes CKD- Dialysis M, W, F- is 4 hours currently. Reports doing better with it. Left upper chest dialysis cath Insomnia/anxiety- ativan at night helpful. The remeron has helped with sleep and mood. Is gaining weight back. Reports doing well, going to restoration again and been doing yard work. Energy level has improved. DM- not on medications, last A1c was 5.7. denies any hypoglycemic episodes <60. Does get up in the middle of the night to eat because the cgm goes off below 70. Hx of cabg- is now seeing cardiology Hypertension- elevated today- he does monitor at home and reports he had not taken hi afternoon med yet. Current Medications[1] Review of Systems Constitutional: Negative for activity change, chills and fatigue. HENT: Positive for rhinorrhea (in the morning only). Negative for congestion, ear discharge, postnasal drip, sinus pressure, sore throat and trouble swallowing. Respiratory: Negative. Cardiovascular: Negative. Genitourinary: Negative for difficulty urinating. Neurological: Negative. Psychiatric/Behavioral: Negative for agitation, behavioral problems, dysphoric mood, self-injury, sleep disturbance and suicidal ideas. The patient is nervous/anxious. Vitals: 06/02/25 1437 06/02/25 1513 BP: (!) 182/85 (!) 163/78 Pulse: 84 Resp: 20 Temp: 37.2 C (98.9 F) TempSrc: Infrared SpO2: 94% Weight: 129 lb 12.8 oz (58.9 kg) Physical Exam Constitutional: General: He is not in acute distress. Appearance: Normal appearance. He is not ill-appearing. HENT: Head: Normocephalic and atraumatic. Mouth/Throat: Mouth: Mucous membranes are moist. Pharynx: Oropharynx is clear. Eyes: Conjunctiva/sclera: Conjunctivae normal. Cardiovascular: Rate and Rhythm: Rhythm irregular. Pulses: Normal pulses. Heart sounds: Normal heart sounds. Pulmonary: Effort: Pulmonary effort is normal. Breath sounds: Normal breath sounds. Musculoskeletal: Right lower leg: No edema. Left lower leg: No edema. Lymphadenopathy: Cervical: No cervical adenopathy. Neurological: Mental Status: He is alert and oriented to person, place, and time. Psychiatric: Mood and Affect: Mood normal. Behavior: Behavior normal. Thought Content: Thought content normal. Judgment: Judgment normal. An electronic signature was used to authenticate this note. Kalyani Crump, MALINA - LUCA 06/02/2025 5:09 PM [1] Current Outpatient Medications Medication Sig Dispense Refill aspirin 81 MG chewable tablet Chew 1 tablet (81 mg) daily. 30 tablet 11 atorvastatin (Lipitor) 80 MG tablet Take 1 tablet (80 mg) by mouth daily. 90 tablet 3 carvedilol (Coreg) 12.5 MG tablet Take 1 tablet (12.5 mg) by mouth 2 times daily (with meals). On non-dialysis days 120 tablet 3 cholecalciferol (Vitamin D-3) 125 MCG (5000 UT) capsule Take 125 mcg by mouth. Continuous Glucose Sensor (FreeStyle Roger 3 Sensor) misc 1 Device every 15 days. 2 each 11 LORazepam (Ativan) 0.5 MG tablet Take 1 tablet (0.5 mg) by mouth Nightly as needed for anxiety. 30 tablet 0 mirtazapine (Remeron) 15 MG tablet Take 1 tablet (15 mg) by mouth Nightly. 90 tablet 1 NIFEdipine XL (Procardia XL) 60 MG 24 hr tablet Take 1 tablet by mouth daily. (Patient taking differently: Take 1 tablet by mouth daily. Takes daily in the afternoon (after dialysis days)) sevelamer carbonate (Renvela) 800 MG tablet Take 1 tablet (800 mg) by mouth in the morning and 1 tablet (800 mg) at noon and 1 tablet (800 mg) in the evening. Take with meals. Swallow tablet whole; do not crush, break, or chew.. 90 tablet 0 No current facility-administered medications for this visit. documented in this encounter [facility] 05-19-2025 Progress note [facility] 04-30-2025 History of Present illness Narrative Images from the original note were not included. [facility] Cardiology [facility] - [address] [facility] [id number] Dept: [phone] Dept Visit type: New : 1945 Chief Complaint: Chief Complaint Patient presents with New Patient Coronary Artery Disease Cardiomyopathy Hypertension History of Present Illness: Jose John is a 80 y.o. male with a history of ischemic cardiomyopathy, coronary artery disease s/p CABG 11/2023, carotid stenosis, hypertension, TIA, DM, ESRD on HD and tobacco use is referred by PCP office to establish cardiovascular care. In November of 2023 he presented with acute kidney injury and acute coronary syndrome. A cardiac catheterization showed severe multivessel coronary artery disease and on November 202023 he underwent four-vessel coronary artery bypass surgery at [facility] with Dr Carlin. 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 He was treated for DVT and post op afib for 3 months with eliquis. Also seems like amiodarone was discontinued sometime along the way. His LVEF was 35% initially in November but that has recovered with most recent echo (03/2024) at [facility] reporting normal LVEF 56%. He is on HD 3 x a week. He tells me he is feeling fine now. He denies chest pain,pressure or heaviness. No exertional angina. No sob,orthopnea or pnd. No syncope or presyncope. He does have occasional palpitations but short lived. Past Medical History: Medical History[1] Past Surgical History Surgical History[2] Family History Family History[3] Social History Social History[4] Allergies: Allergies[5] Medications: Current Medications[6] Review of Systems: Review of Systems Constitutional: Negative for activity change, chills, diaphoresis, fatigue and fever. HENT: Negative for nosebleeds and trouble swallowing. Eyes: Negative for discharge and visual disturbance. Respiratory: Negative for apnea, cough, chest tightness, shortness of breath and wheezing. Cardiovascular: Positive for palpitations. Negative for chest pain and leg swelling. Gastrointestinal: Negative for abdominal distention, abdominal pain, blood in stool, diarrhea, nausea and vomiting. Endocrine: Negative for cold intolerance and heat intolerance. Genitourinary: Negative for hematuria. Musculoskeletal: Negative for gait problem and myalgias. Skin: Negative for color change and rash. Neurological: Negative for dizziness, seizures, syncope, facial asymmetry, speech difficulty, weakness, light-headedness (Every once in awhile with quick position changes), numbness and headaches. Hematological: Does not bruise/bleed easily. Psychiatric/Behavioral: Negative for dysphoric mood. Physical Examination: Vitals: Vitals: 04/30/25 0833 04/30/25 0922 BP: (S) (!) 160/86 (!) 160/80 BP Location: Left arm Left arm Patient Position: Sitting BP Cuff Size: Adult Pulse: 95 SpO2: 96% Weight: 130 lb 3.2 oz (59.1 kg) Height: 5' 10 (1.778 m) Body mass index is 18.68 kg/m . Physical Exam Constitutional: Appearance: Normal appearance. HENT: Head: Normocephalic. Mouth/Throat: Pharynx: No oropharyngeal exudate. Eyes: General: No scleral icterus. Right eye: No discharge. Left eye: No discharge. Cardiovascular: Rate and Rhythm: Normal rate and regular rhythm. Heart sounds: No murmur heard. No gallop. Pulmonary: Effort: No respiratory distress. Abdominal: General: There is no distension. Tenderness: There is no abdominal tenderness. Musculoskeletal: General: Normal range of motion. Cervical back: Normal range of motion. Right lower leg: No edema. Left lower leg: No edema. Skin: General: Skin is warm and dry. Neurological: Mental Status: He is alert and oriented to person, place, and time. Laboratory Tests: Lab Results Component Value Date WBC 10.9 (H) 05/26/2024 HGB 12.3 (L) 05/26/2024 HCT 38.5 (L) 05/26/2024 MCV 92.5 05/26/2024 PLT 177 05/26/2024 Lab Results Component Value Date GLUCOSE 234 (H) 05/26/2024 CALCIUM 9.2 05/26/2024 NA 133 (L) 05/26/2024 K 4.9 05/26/2024 CO2 29 05/26/2024 CL 94 (L) 05/26/2024 BUN 58 (H) 05/26/2024 CREATININE 4.61 (H) 05/26/2024 @LASTCMP@ Lab Results Component Value Date CHOL 218 (H) 11/15/2023 Lab Results Component Value Date TRIG 142 12/02/2023 TRIG 77 11/26/2023 TRIG 179 (H) 11/15/2023 Lab Results Component Value Date HDL 68 (H) 11/15/2023 Lab Results Component Value Date LDLCALC 114 (H) 11/15/2023 NT PRO BNP Date Value Ref Range Status 02/12/2024 14,823 (H) <450 pg/mL Final Cardiac Tests: ECG: NSR, LVH Last cardiac catheterization at [facility] 11/15/23: Vascular US 11/2023: 60-69% stenosis in the right internal carotid artery. Moderate and heterogeneous plaque in the right internal carotid artery. 90-99% stenosis in the left internal carotid artery. Severe and heterogeneous plaque in the left internal carotid artery. Normal antegrade flow involving the right vertebral artery. Normal antegrade flow involving the left vertebral artery. Left clavicle to bifurcation measurement: 5 cm. Right clavicle to bifurcation measurement: 4.5 cm. ROBERT 11/2023: Left Ventricle: Left ventricle size is normal. Moderately increased wall thickness. Moderately reduced left ventricular systolic function. The EF by visual approximation is 40%. Mild global hypokinesis present. Right Ventricle: Right ventricle size is normal. Mildly increased wall thickness. Normal systolic function. Mitral Valve: Moderate (2+) regurgitation with a centrally directed jet. Left Atrium: Normal appendage flow velocity. No left atrial appendage thrombus noted. All findings discussed with surgical team Echo 11/2023: Left Ventricle: Not well visualized. Normal wall thickness. Reduced left ventricular systolic function. The EF by visual approximation is 35%. Right Ventricle: Right ventricle size is normal. Lead present in the right ventricle. Normal systolic function. No significant valvular abnormalities. Technically difficult study. IVC was not well visualized. No pericardial effusion. Vascular US Lower Extremity Venous Duplex Bilateral 11/15/23: Acute occlusive deep vein thrombosis in the right gastrocnemius vein. Acute occlusive deep vein thrombosis in the right peroneal vein. No evidence of deep vein or superficial vein thrombosis in the left lower extremity. Vessels demonstrate normal compressibility, color filling, and phasic and spontaneous flow. Echo 02/12/24: Technically difficult study. Image quality low and limits overall accuracy of interpretation. Left Ventricle: Left ventricle size is normal. Normal wall thickness. Normal left ventricular systolic function. The EF by visual approximation is 45%. Right Ventricle: Not well visualized. Unable to assess systolic function. No significant valvular abnormalities. Last Echo at [facility] 03/13/24: CONCLUSIONS: - Technically difficult exam due to bandages/chest tubes/wound and lung and breathing interference, difficult apical images. - Exam indication: heart failure - The left ventricle is mildly dilated. Left ventricular systolic function is normal. EF = 59 5% (2D 4-ch.). Left ventricular diastolic function was not evaluated due to inconsistent or technically suboptimal data. - The right ventricle is normal in size. Right ventricular systolic function is normal. - Mild (1+) tricuspid valve regurgitation. - The patient has not had a prior CC echocardiographic exam for comparison. Assessment and Plan: 1. Coronary Artery Disease S/p CABG x4 (In situ JEROME to LAD, In situ JENY w/rsvg extension (tandem graft via the right pericardial recess) to RPDA and OM1; rsvg to Diag1 on 11/21/[address] Macdonald. Now stable and asymptomatic. Somehow not on aspirin or statin currently, really did not follow with cardiology post op. Will restart aspirin 81 mg po daily, lipitor 80 mg po daily. -On carvedilol 6.25 mg BID on non-dialysis days but BP has been running high at home 150s on non HD days, will increase coreg to 12.5 mg bid Heart healthy diet and exercise regimen 2. Ischemic Cardiomyopathy now with recovered LVEF EF as low as 35% on 11/2023; last echo 03/13/24 with LVEF 59% [facility] Class I Continue Coreg as above Not on arb or aldactone or farxiga due to ESRD 3. Post op Atrial Fibrillation Post-Op after CABG 11/2023; was on apixiban for 3 month post op. No known recurrence. Has occasional palpitations that sound more like ectopy than consistent tachy. In NSR today. Will get MCOT to see if any afib /burden. If afib detected on MCOT then robin have to talk about anticoagulation 4. Hypertension Uncontrolled on non HD days. Managed by nephrology. -On Procardia 60 mg daily -Increase carvedilol 12.5 mg BID on non-dialysis days 5. Carotid Artery Stenosis Per carotid US 11/2023: 60-69% stenosis in the right internal carotid artery. Moderate and heterogeneous plaque in the right internal carotid artery. 90-99% stenosis in the left internal carotid artery. Severe and heterogeneous plaque in the left internal carotid artery. Start aspirin and statin Refer to vascular surgery [1] Past Medical History: Diagnosis Date Abdominal pain 01/28/2025 Acute left otitis media 01/28/2025 Adverse effect of drug 01/28/2025 Allergy, unspecified, sequela 02/12/2024 Anaphylactic shock, unspecified, sequela 02/12/2024 Blurring of visual image 01/28/2025 Calculus of kidney 01/28/2025 Cause of injury, fall 05/05/2024 Forehead laceration, initial encounter 05/05/2024 Lumbar herniated disc 09/14/2017 Myocardial infarction (HCC) 11/19/2023 Near syncope 07/07/2024 Open chest wound 03/12/2024 Other disorders of phosphorus metabolism 08/27/2024 Pleural effusion 02/12/2024 Puncture wound 01/28/2025 Type 2 diabetes mellitus with other diabetic kidney complication, with long-term current use of insulin (HCC) 01/29/2025 Unstable angina pectoris (CMS/HCC) (HCC) 11/15/2023 Wound dehiscence, surgical 03/27/2024 [2] History reviewed. No pertinent surgical history. [3] Family History Problem Relation Name Age of Onset Diabetes Mother [4] Social History Tobacco Use Smoking status: Former Current packs/day: 0.00 Average packs/day: 1.5 packs/day for 35.0 years (52.5 ttl pk-yrs) Types: Cigarettes Start date: 1962 Quit date: 1997 Years since quittin.7 Smokeless tobacco: Former Types: Chew Tobacco comments: Occasional when younger Vaping Use Vaping status: Never Used Substance Use Topics Alcohol use: Not Currently Drug use: Never Comment: Caffiene: One cup of coffee/day [5] Allergies Allergen Reactions Lisinopril Wheezing raspy voice and cough Penicillins Anaphylaxis, Hives and Swelling Other Reaction(s): Anaphylaxis Sulfa Antibiotics Anaphylaxis, Hives and Swelling Other Reaction(s): Anaphylaxis Levofloxacin Nausea Only and Rash Upset Stomach [6] Current Outpatient Medications: cholecalciferol (Vitamin D-3) 125 MCG (5000 UT) capsule, Take 125 mcg by mouth., Disp: , Rfl: Continuous Glucose Sensor (FreeStyle Roger 3 Sensor) [facility], 1 Device every 15 days., Disp: 2 each, Rfl: 11 glucose (Glutose) 40 % gel oral gel, Take 15 g by mouth as needed for low blood sugar. Hypoglycemia, Disp: 10 g, Rfl: 0 LORazepam (Ativan) 0.5 MG tablet, Take 1 tablet (0.5 mg) by mouth Nightly., Disp: 30 tablet, Rfl: 0 mirtazapine (Remeron) 7.5 MG tablet, Take 1 tablet (7.5 mg) by mouth Nightly., Disp: 30 tablet, Rfl: 2 NIFEdipine XL (Procardia XL) 60 MG 24 hr tablet, Take 1 tablet by mouth daily. (Patient taking differently: Take 1 tablet by mouth daily. Takes daily in the afternoon (after dialysis days)), Disp: , Rfl: sevelamer carbonate (Renvela) 800 MG tablet, Take 1 tablet (800 mg) by mouth in the morning and 1 tablet (800 mg) at noon and 1 tablet (800 mg) in the evening. Take with meals. Swallow tablet whole; do not crush, break, or chew.., Disp: 90 tablet, Rfl: 0 aspirin 81 MG chewable tablet, Chew 1 tablet (81 mg) daily., Disp: 30 tablet, Rfl: 11 atorvastatin (Lipitor) 80 MG tablet, Take 1 tablet (80 mg) by mouth daily., Disp: 90 tablet, Rfl: 3 carvedilol (Coreg) 12.5 MG tablet, Take 1 tablet (12.5 mg) by mouth 2 times daily (with meals). On non-dialysis days, Disp: 120 tablet, Rfl: 3 gabapentin (Neurontin) 100 MG capsule, Take 1 capsule after dialysis three times weekly on Sunday, and Sunday, Disp: 30 capsule, Rfl: 0 pantoprazole (ProtoNix) 40 MG EC tablet, Take 1 tablet (40 mg) by mouth every morning (before breakfast). Do not crush, chew, or split. (Patient not taking: Reported on 03/03/2025), Disp: 90 tablet, Rfl: 0 documented in this encounter [facility] 04-17-2025 History of Present illness Narrative Spoke to patient to explain that insurance would not be covering his Roger now that he is off insulin and lows were not <54. He went to pharmacy and was able to get x2 sensors for $42 and he is agreeable to pay out of pocket Attached media from the original note were not included. This will need to go through DME for auth, I will reach out to [facility] to review for possible coverage, I have attached patients Roger report to show the amount of low alerts he is recieving Spoke to patient and discussed the need for a printout from his Roger of <50 bs over the last month to get approved for further Roger sensors now that he is no longer on insulin. Pt states he can stop by the office on at 10am, checking with office to see if staff is available to download report documented in this encounter [facility] 04-15-2025 History of Present illness Narrative Attached media from the original note were not included. This will need to go through DME for auth, I will reach out to [facility] to review for possible coverage, I have attached patients Roger report to show the amount of low alerts he is recieving Spoke to patient and discussed the need for a printout from his Roger of <50 bs over the last month to get approved for further Roger sensors now that he is no longer on insulin. Pt states he can stop by the office on at 10am, checking with office to see if staff is available to download report documented in this encounter [facility] 04-09-2025 History of Present illness Narrative Prescription Request: Last medication check: 03/03/25 Last physical exam: na Next scheduled appointment: 06/02/25 CSA on file (date): 01/29/25 Last urine drug screen: na Last date of refill on this medication 03/03/25 Pt came into office today. Roger updated and uploaded AGP report and scanned into patients chart. Pt requested refill on Ativan. Pharmacy verified. OARRS reviewed and consistent with treatment plan. CS MA in place. Prescription sent documented in this encounter [facility] 04-09-2025 Note OARRS reviewed and c onsistent with treatment plan. [facility]ARFIELD MA in place. Prescription sent [facility] 04-08-2025 Telephone encounter Note Yes I will take care of it I put him on the nurse visit schedule with me on . [facility] 04-08-2025 Miscellaneous Notes Yes I will take care of it I put him on the nurse visit schedule with me on . Received PA request for patients FreeStyle Roger 3 Plus Sensor documented in this encounter [facility] 04-08-2025 Miscellaneous Notes Yes I will take care of it I put him on the nurse visit schedule with me on . Received PA request for patients FreeStyle Roger 3 Plus Sensor documented in this encounter [facility] 04-08-2025 Miscellaneous Notes Yes I will take care of it I put him on the nurse visit schedule with me on . Received PA request for patients FreeStyle Roger 3 Plus Sensor documented in this encounter [facility] 04-07-2025 History of Present illness Narrative Spoke to patient and discussed the need for a printout from his Roger of <50 bs over the last month to get approved for further Roger sensors now that he is no longer on insulin. Pt states he can stop by the office on at 10am, checking with office to see if staff is available to download report documented in this encounter [facility] 04-07-2025 History of Present illness Narrative Spoke to patient and discussed the need for a printout from his Roger of <50 bs over the last month to get approved for further Roger sensors now that he is no longer on insulin. Pt states he can stop by the office on at 10am, checking with office to see if staff is available to download report documented in this encounter [facility] 04-02-2025 Telephone encounter Note Received PA request for patients FreeStyle Roger 3 Plus Sensor [facility] 04-02-2025 Miscellaneous Notes Received PA request for patients FreeStyle Roger 3 Plus Sensor documented in this encounter [facility] 03-18-2025 Telephone encounter Note Called patient to get update on how he was doing on mirtazapine at bedtime. Patient reports he has not been taking it and has been using Ativan for sleep. Apparently we had a miscommunication on why we had started the mirtazapine which was to help with depression symptoms and appetite. He states that he will start taking the mirtazapine at bedtime. Okay to take the Ativan if needed for sleep at bedtime Dialysis-reports that they made adjustments Sunday and today. Reports feels better with it. Still waking up alarmed with the CGM with glucose under 70, lowest at 68. He is currently not on any diabetic medications Provider will give patient phone call next week to see how he was doing on the mirtazapine. Patient states understanding and agrees with plan of care [facility] 03-18-2025 Miscellaneous Notes Called patient to get update on how he was doing on mirtazapine at bedtime. Patient reports he has not been taking it and has been using Ativan for sleep. Apparently we had a miscommunication on why we had started the mirtazapine which was to help with depression symptoms and appetite. He states that he will start taking the mirtazapine at bedtime. Okay to take the Ativan if needed for sleep at bedtime Dialysis-reports that they made adjustments Sunday and today. Reports feels better with it. Still waking up alarmed with the CGM with glucose under 70, lowest at 68. He is currently not on any diabetic medications Provider will give patient phone call next week to see how he was doing on the mirtazapine. Patient states understanding and agrees with plan of care documented in this encounter [facility] 03-03-2025 Evaluation + Plan note Associated Problem(s): Neuropathy Reports symptoms in the legs improved, continue gabapentin at renal dosing. [facility] 03-03-2025 Evaluation + Plan note Associated Problem(s): Lumbar post-laminectomy syndrome Recently flared symptoms, no red flags. Will see if getting depression symptoms better controlled will help. [facility] 03-03-2025 Miscellaneous Notes Associated Problem(s): Neuropathy Reports symptoms in the legs improved, continue gabapentin at renal dosing. Associated Problem(s): Lumbar post-laminectomy syndrome Recently flared symptoms, no red flags. Will see if getting depression symptoms better controlled will help. Associated Problem(s): Ischemic cardiomyopathy Establish with cardiology. Currently asymptomatic Associated Problem(s): Weight loss Continues to lose weight. Check TSH. Get recent lab results from dialysis. Associated Problem(s): Type 2 diabetes mellitus with kidney complication, without long-term current use of insulin (HCC) Controlled. Continue to monitor with CGM. Currently not on medications. Last hemoglobin A1c was 5.7 Associated Problem(s): Recurrent major depression (HCC) Symptoms poorly controlled, start mirtazapine 7.5 mg nightly Associated Problem(s): End stage renal disease (HCC) Managed by nephrology, continue hemodialysis as directed Associated Problem(s): Anxiety OARRS reviewed and consistent with treatment plan. CS MA in place. At this time we will continue lorazepam 0.5 mg nightly if needed for anxiety documented in this encounter [facility] 03-03-2025 Evaluation + Plan note Associated Problem(s): Ischemic cardiomyopathy Establish with cardiology. Currently asymptomatic [facility] 03-03-2025 Evaluation + Plan note Associated Problem(s): Weight loss Continues to lose weight. Check TSH. Get recent lab results from dialysis. [facility] 03-03-2025 Evaluation + Plan note Associated Problem(s): Type 2 diabetes mellitus with kidney complication, without long-term current use of insulin (HCC) Controlled. Continue to monitor with CGM. Currently not on medications. Last hemoglobin A1c was 5.7 [facility] 03-03-2025 Evaluation + Plan note Associated Problem(s): Recurrent major depression (HCC) Symptoms poorly controlled, start mirtazapine 7.5 mg nightly [facility] 03-03-2025 Evaluation + Plan note Associated Problem(s): End stage renal disease (HCC) Managed by nephrology, continue hemodialysis as directed [facility] 03-03-2025 Evaluation + Plan note Associated Problem(s): Anxiety OARRS reviewed and consistent with treatment plan. GARFIELD MA in place. At this time we will continue lorazepam 0.5 mg nightly if needed for anxiety [facility] 03-03-2025 Note OARRS reviewed and c onsistent with treatment plan. GARFIELD MA in place. At this time we will continue lorazepam 0.5 mg nightly if needed for anxiety [facility] 03-03-2025 History of Present illness Narrative Patient was identified by name and Date of . Was [facility] in November-dialysis Patient was identified by name and Date of . Finger stick for Glucose was pended and signed by provider. Materials needed were collected, gloves were put on, patients finger was cleansed with an alcohol swab then dried with gauze,finger stick was completed. Slight pressure applied, first drop of blood was wiped away by gauze and 2nd drop collected for sample.Patient tolerated well. Results entered and provider verbally notified. Charged for finger stick: Yes Results entered: Yes Images from the original note were not included. 03/03/2025 Jose John (: 1945) is a 79 y.o. male , Established patient, here for evaluation of the following chief complaint(s): Diabetes, Medication Check, Arm Pain (Left arm---had left over oxy at home and took it last night), and GERD ASSESSMENT/PLAN: 1. Type 2 diabetes mellitus with other diabetic kidney complication, with long-term current use of insulin ([facility]) Assessment & Plan: Controlled. Continue to monitor with CGM. Currently not on medications. Last hemoglobin A1c was 5.7 Orders: - AMB POC GLUCOSE TEST 2. Anxiety Assessment & Plan: OARRS reviewed and consistent with treatment plan. CS MA in place. At this time we will continue lorazepam 0.5 mg nightly if needed for anxiety Orders: - LORazepam (Ativan) 0.5 MG tablet; Take 1 tablet (0.5 mg) by mouth Nightly., Starting Sun03/03/2025, Until Josie 04/02/2025, Normal - mirtazapine (Remeron) 7.5 MG tablet; Take 1 tablet (7.5 mg) by mouth Nightly., Starting Sun03/03/2025, Until 06/01/2025, Normal 3. End stage renal disease (HCC) Assessment & Plan: Managed by nephrology, continue hemodialysis as directed 4. Weight loss Assessment & Plan: Continues to lose weight. Check TSH. Get recent lab results from dialysis. Orders: - TSH - mirtazapine (Remeron) 7.5 MG tablet; Take 1 tablet (7.5 mg) by mouth Nightly., Starting Tu03/03/2025, Until 06/01/2025, Normal 5. Lumbar post-laminectomy syndrome Assessment & Plan: Recently flared symptoms, no red flags. Will see if getting depression symptoms better controlled will help. 6. Ischemic cardiomyopathy Assessment & Plan: Establish with cardiology. Currently asymptomatic 7. Neuropathy Assessment & Plan: Reports symptoms in the legs improved, continue gabapentin at renal dosing. 8. Mild episode of recurrent major depressive disorder (HCC) Assessment & Plan: Symptoms poorly controlled, start mirtazapine 7.5 mg nightly Follow up for 3 month [facility]. SUBJECTIVE/OBJECTIVE: [facility] - Jose John (: 1945) is a 79 y.o. male , Established patient, here for the evaluation of the following chief complaint(s): Diabetes, Medication Check, Arm Pain (Left arm---had left over oxy at home and took it last night), and GERD Patient presents to follow-up diabetes. Recently established 1 month ago. History of CABG with postsurgical complications, pneumonia and ESRD. He is on hemodialysis 3 days/week. Denies any chest pain or increased shortness of breath. Reports his weight continues to drop. Reports that he is eating enough that he thinks. He had recently lost his and amtnev-kr-yhd within a short period of time while he was recuperating from his illness. Recently moved back to his home in [place] and has been having some difficulties adjusting. He has been mowing his yard on the riding lawnmower. Reports he is still going through his 's and xpdupk-mq-crh's belongings and trying to put stuff away. Denies any suicidal or homicidal ideation but has a lot of anxiety and is depressed. He has some chronic back pain which intermittently flares up specifically on the left upper arm which he thinks may be also secondary from the dialysis catheter. He was taking Ativan for short period of time at night if needed to help with sleep and anxiety and thought that was very helpful. He is in the process of getting established with a forming roll operator as he had very poor follow-up after his surgery, hospitalization and assisted stay. For his polyneuropathy we had restarted gabapentin at renal dosing which she reports is helping. Diabetes-he wears a CGM and reports that it alarms quite frequently at 74 in which he gets up and will eat something. He states he does not do a fingerstick to double check. States he also will have some blood sugars in the low 200s after eating. He is currently not on any medications but was previously on insulin therapy. Current Medications[1] Review of Systems Constitutional: Positive for activity change, fatigue and unexpected weight change. Negative for appetite change and chills. HENT: Negative. Respiratory: Negative. Cardiovascular: Negative. Gastrointestinal: Negative. Genitourinary: Negative. Musculoskeletal: Positive for arthralgias and back pain. Neurological: Negative. Psychiatric/Behavioral: Positive for decreased concentration, dysphoric mood and sleep disturbance. Negative for agitation, behavioral problems, self-injury and suicidal ideas. The patient is nervous/anxious. Vitals: 03/03/25 1516 BP: 135/69 Pulse: 82 Resp: 18 Temp: 36.9 C (98.4 F) TempSrc: Infrared SpO2: 96% Weight: 120 lb 9.6 oz (54.7 kg) Physical Exam Constitutional: General: He is not in acute distress. Appearance: Normal appearance. He is underweight. He is ill-appearing. HENT: Head: Normocephalic and atraumatic. Mouth/Throat: Mouth: Mucous membranes are moist. Pharynx: Oropharynx is clear. No posterior oropharyngeal erythema. Eyes: Conjunctiva/sclera: Conjunctivae normal. Cardiovascular: Rate and Rhythm: Normal rate and regular rhythm. Pulses: Normal pulses. Heart sounds: Normal heart sounds. Pulmonary: Effort: Pulmonary effort is normal. Breath sounds: Normal breath sounds. Abdominal: General: Abdomen is flat. Bowel sounds are normal. Tenderness: There is no abdominal tenderness. Musculoskeletal: Right lower leg: No edema. Left lower leg: No edema. Lymphadenopathy: Cervical: No cervical adenopathy. Skin: General: Skin is warm and dry. Neurological: Mental Status: He is alert and oriented to person, place, and time. Psychiatric: Attention and Perception: Attention and perception normal. Mood and Affect: Mood is anxious. Speech: Speech normal. Behavior: Behavior normal. Behavior is cooperative. Thought Content: Thought content normal. Cognition and Memory: Cognition normal. Judgment: Judgment normal. An electronic signature was used to authenticate this note. Kalyani Simpson Bridenthal, MANAGER OF PROJECT MANAGEMENT - INTEGRATION ENGINEER 03/03/2025 6:01 PM [1] Current Outpatient Medications Medication Sig Dispense Refill gabapentin (Neurontin) 100 MG capsule Take 1 capsule after dialysis three times weekly on Sunday, and Sunday 30 capsule 0 NIFEdipine XL (Procardia XL) 60 MG 24 hr tablet Take 1 tablet by mouth daily. sevelamer carbonate (Renvela) 800 MG tablet Take 1 tablet (800 mg) by mouth in the morning and 1 tablet (800 mg) at noon and 1 tablet (800 mg) in the evening. Take with meals. Swallow tablet whole; do not crush, break, or chew.. 90 tablet 0 acetaminophen (Tylenol) 325 MG tablet Take 2 tablets (650 mg) by mouth every 6 hours as needed for mild pain (1-3). (Patient not taking: Reported on 03/03/2025) 30 tablet 0 amiodarone (Pacerone) 200 MG tablet Take 1 tablet (200 mg) by mouth daily. (Patient not taking: Reported on 03/03/2025) 30 tablet 11 atorvastatin (Lipitor) 80 MG tablet Take 1 tablet (80 mg) by mouth daily. (Patient not taking: Reported on 03/03/2025) 90 tablet 0 carvedilol (Coreg) 6.25 MG tablet Take 1 tablet by mouth twice a day. (Patient not taking: Reported on 03/03/2025) Continuous Glucose [employer] (FreeStyle Roger 2 [place]) device Check blood glucose four times a day (Patient not taking: Reported on 03/03/2025) Continuous Glucose Sensor (FreeStyle Roger 2 Sensor) [facility] every 14 (fourteen) days. Change sensor (Patient not taking: Reported on 03/03/2025) glucose (Glutose) 40 % gel oral gel Take 15 g by mouth as needed for low blood sugar. Hypoglycemia (Patient not taking: Reported on 03/03/2025) 10 g 0 LORazepam (Ativan) 0.5 MG tablet Take 1 tablet (0.5 mg) by mouth Nightly. 30 tablet 0 mirtazapine (Remeron) 7.5 MG tablet Take 1 tablet (7.5 mg) by mouth Nightly. 30 tablet 2 pantoprazole (ProtoNix) 40 MG EC tablet Take 1 tablet (40 mg) by mouth every morning (before breakfast). Do not crush, chew, or split. (Patient not taking: Reported on 03/03/2025) 90 tablet 0 No current facility-administered medications for this visit. documented in this encounter [facility] 01-29-2025 Evaluation + Plan note Associated Problem(s): Grieving Provided support. [facility] 01-29-2025 Evaluation + Plan note Associated Problem(s): Weight loss Unsure etiology. Will need to get records from nephrology for review of most recent labs. Unsure if patient has had any evaluation for his weight loss. Will need to obtain records to review [facility] 01-29-2025 Miscellaneous Notes Associated Problem(s): Grieving Provided support. Associated Problem(s): Weight loss Unsure etiology. Will need to get records from nephrology for review of most recent labs. Unsure if patient has had any evaluation for his weight loss. Will need to obtain records to review Associated Problem(s): Macular degeneration Follow-up with specialist Associated Problem(s): End stage renal disease (HCC) Managed by nephrology, continue hemodialysis as directed Associated Problem(s): Chronic obstructive pulmonary disease (HCC) Denies any symptoms. Currently not on any inhalers. Associated Problem(s): Carotid arterial disease (HCC) Stable. Continue aspirin 81 mg, restart atorvastatin 80 mg daily. Associated Problem(s): Congestive heart failure (HCC) Currently asymptomatic. Stable. Associated Problem(s): CAD (coronary artery disease) Restart atorvastatin 80 mg daily, continue aspirin 81 mg, continue blood pressure medications Associated Problem(s): Hx of CABG Stable. Will refer to cardiology Associated Problem(s): Atrial fibrillation (HCC) Apical regular. Continue current medications Associated Problem(s): Neuropathy Restart gabapentin but at renal dosing. CS MA obtained, OARRS reviewed and consistent with treatment plan Associated Problem(s): Gastroesophageal reflux disease Poorly controlled, restart pantoprazole 40 mg daily Associated Problem(s): Centrilobular emphysema (HCC) Stable. 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 Denies any chest pain. Continue with current medications-referral to cardiology Associated Problem(s): Anxiety OARRS reviewed and consistent with treatment plan. CS MA in place. At this time we will continue lorazepam 0.5 mg nightly if needed for anxiety Associated Problem(s): Type 2 diabetes mellitus with other diabetic kidney complication, with long-term current use of insulin (HCC) Currently not on any insulin. Dypbd-xs-rral hemoglobin A1c today 5.7, continue with monitoring documented in this encounter [facility] 01-29-2025 Note Unsure etiology. Robin l need to get records from nephrology for review of most recent labs. Unsure if patient has had any evaluation for his weight loss. Will need to obtain records to review [facility] 01-29-2025 Evaluation + Plan note Associated Problem(s): Macular degeneration Follow-up with specialist [facility] 01-29-2025 Evaluation + Plan note Associated Problem(s): End stage renal disease (HCC) Managed by nephrology, continue hemodialysis as directed [facility] 01-29-2025 Evaluation + Plan note Associated Problem(s): Chronic obstructive pulmonary disease (HCC) Denies any symptoms. Currently not on any inhalers. [facility] 01-29-2025 Evaluation + Plan note Associated Problem(s): Carotid arterial disease (HCC) Stable. Continue aspirin 81 mg, restart atorvastatin 80 mg daily. T [facility] 01-29-2025 Evaluation + Plan note Associated Problem(s): Congestive heart failure (HCC) Currently asymptomatic. Stable. [facility] 01-29-2025 Evaluation + Plan note Associated Problem(s): CAD (coronary artery disease) Restart atorvastatin 80 mg daily, continue aspirin 81 mg, continue blood pressure medications T [facility] 01-29-2025 Evaluation + Plan note Associated Problem(s): Hx of CABG Stable. Will refer to cardiology T [facility] 01-29-2025 Evaluation + Plan note Associated Problem(s): Atrial fibrillation (HCC) Apical regular. Continue current medications [facility] 01-29-2025 Evaluation + Plan note Associated Problem(s): Neuropathy Restart gabapentin but at renal dosing. GARFIELD TALAVERA obtained, OARRS reviewed and consistent with treatment plan [facility] 01-29-2025 Note Restart gabapentin b ut at renal dosing. GARFIELD TALAVERA obtained, OARRS reviewed and consistent with treatment plan [facility] 01-29-2025 Evaluation + Plan note Associated Problem(s): Gastroesophageal reflux disease Poorly controlled, restart pantoprazole 40 mg daily [facility] 01-29-2025 Evaluation + Plan note Associated Problem(s): Centrilobular emphysema (HCC) Stable. 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 Denies any chest pain. Continue with current medications-referral to cardiology [facility] 01-29-2025 Evaluation + Plan note Associated Problem(s): Anxiety OARRS reviewed and consistent with treatment plan. GARFIELD TALAVERA in place. At this time we will continue lorazepam 0.5 mg nightly if needed for anxiety [facility] 01-29-2025 Note OARRS reviewed and c onsistent with treatment plan. CS MA in place. At this time we will continue lorazepam 0.5 mg nightly if needed for anxiety [facility] 01-29-2025 Evaluation + Plan note Associated Problem(s): Type 2 diabetes mellitus with other diabetic kidney complication, with long-term current use of insulin (HCC) Currently not on any insulin. Uylac-xx-[id number] hemoglobin A1c today 5.7, continue with monitoring [facility] 01-29-2025 History of Present illness Narrative Patient was identified by name and Date of . Lost Health Maintenance Due Topic Hepatitis C Screening- DTaP/Tdap/Td Vaccines- Pneumococcal Vaccine- Zoster Vaccines- RSV Immunization for Adults- COVID-19 Vaccine- Depression Monitoring- Hepatitis B Vaccines- New patient- will need scheduled for AWV NIKKI faxed to [facility]. Patient was identified by name and Date of . Finger stick for A1C was pended and signed by provider. Materials needed were collected, gloves were put on, patients finger was cleansed with an alcohol swab then dried with gauze,finger stick was completed. Slight pressure applied, first drop of blood was wiped away by gauze and 2nd drop collected for sample.Patient tolerated well. Results entered and provider verbally notified. Charged for finger stick: Yes Results entered: Yes Images from the original note were not included. 01/29/2025 Jose John (: 1945) is a 79 y.o. male , New patient, here for evaluation of the following chief complaint(s): New Patient ASSESSMENT/PLAN: 1. Type 2 diabetes mellitus with other diabetic kidney complication, with long-term current use of insulin (HCC) Assessment & Plan: Currently not on any insulin. Bxlzo-re-uvui hemoglobin A1c today 5.7, continue with monitoring Orders: - AMB POC HEMOGLOBIN A1C 2. Centrilobular emphysema (HCC) Assessment & Plan: Stable. Currently not on any medications and denies any symptoms 3. Atrial fibrillation, unspecified type (HCC) Assessment & Plan: Apical regular. Continue current medications 4. Anxiety Assessment & Plan: OARRS reviewed and consistent with treatment plan. GARFIELD TALAVERA in place. At this time we will continue lorazepam 0.5 mg nightly if needed for anxiety Orders: - LORazepam (Ativan) 0.5 MG tablet; Take 1 tablet (0.5 mg) by mouth Nightly for 10 days., Starting Sun01/29/2025, Until Sun02/08/2025, Normal 5. Coronary artery disease involving [employer] heart without angina pectoris, unspecified vessel or lesion type Assessment & Plan: Restart atorvastatin 80 mg daily, continue aspirin 81 mg, continue blood pressure medications Orders: - atorvastatin (Lipitor) 80 MG tablet; Take 1 tablet (80 mg) by mouth daily., Starting Sun01/29/2025, Until Sun04/29/2025, Normal - [facility] Cardiology 6. Neuropathy Assessment & Plan: Restart gabapentin but at renal dosing. GARFIELD TALAVERA obtained, OARRS reviewed and consistent with treatment plan Orders: - gabapentin (Neurontin) 100 MG capsule; Take 1 capsule after dialysis three times weekly on Sunday, and Sunday, Normal 7. Gastroesophageal reflux disease without esophagitis Assessment & Plan: Poorly controlled, restart pantoprazole 40 mg daily Orders: - pantoprazole (ProtoNix) 40 MG EC tablet; Take 1 tablet (40 mg) by mouth every morning (before breakfast). Do not crush, chew, or split., Starting Josie 01/29/2025, Until Sun04/29/2025, Normal 8. Hx of CABG Assessment & Plan: Stable. Will refer to cardiology 9. 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 Denies any chest pain. Continue with current medications-referral to cardiology 10. Congestive heart failure, unspecified HF chronicity, unspecified heart failure type (HCC) Assessment & Plan: Currently asymptomatic. Stable. 11. Bilateral carotid artery stenosis Assessment & Plan: Stable. Continue aspirin 81 mg, restart atorvastatin 80 mg daily. 12. Chronic obstructive pulmonary disease, unspecified COPD type (HCC) Assessment & Plan: Denies any symptoms. Currently not on any inhalers. 13. Grieving Assessment & Plan: Provided support. 14. End stage renal disease (HCC) Assessment & Plan: Managed by nephrology, continue hemodialysis as directed 15. Weight loss Assessment & Plan: Unsure etiology. Will need to get records from nephrology for review of most recent labs. Unsure if patient has had any evaluation for his weight loss. Will need to obtain records to review 16. Macular degeneration of right eye, unspecified type Assessment & Plan: Follow-up with specialist Patient with many diagnosis pulled in from other [facility] encounters, very difficult to determine if active problems or not. It does not seem like he has had good outpatient follow-up for his previous CABG and complications that occurred thereafter. He has not been taking several of his cardiac medications that I am unsure if he needs to resume them or not, since his blood pressure and heart rate are good and he denies any chest pain or shortness of breath-we will hold off on restarting some of his previous cardiac meds until he is seen by cardiology. Will need to do further review of his chart to determine next steps and plan of care regarding his weight loss. On this date, 01/29/2025, I have spent 90+ minutes reviewing previous notes, test results, and face to face with the patient discussing the diagnosis and importance of compliance with the treatment plan as well as documenting on the day of the visit. Follow up in about 2 weeks (around 02/12/2025). SUBJECTIVE/OBJECTIVE: [facility] - Josekenya John presents as new patient, previous primary care provider Olena Gabriel in [place]., last seen over a year ago. by previous provider. Specialists/other providers? Yes, describe: When he was hospitalized he was seeing cardiology and vascular, that was last year. He was not established with anyone outpatient. He is established with outpatient nephrology as he is currently on dialysis for renal failure. Chief complaint(s): New Patient Patient presents to establish care. Reports that he previously was seen by a primary care provider in [place] prior to getting sick last year and having a CABG, then ran into complications with wound healing, pneumonia, ended up with renal failure and is currently on dialysis. Reports she spent 90 days in the hospital and then was in rehab for a while and then went to assisted living with his who had Parkinson's and dementia. Reports his tiksdr-tu-qhs also lived in the same facility as them. His aaahdo-uw-kxs a few months ago and then his 13 days later. He recently moved back to his home in [place] about 1 month ago and has not established with any specialists as an outpatient. Reports while he was at the assisted living, he ran out of a lot of his medications as he did not have a provider to prescribe them. He is concerned about his weight as he is continuing to lose weight since last year and is currently only 121 pounds. Prior to getting sick he weighed 181. Nephrology- in [place]. Has hemodialysis Sunday at [facility]. New dialysis port left upper chest, placed last week. Has had dialysis with it and reports it worked pretty well. Cardiology-has not established with an outpatient forming roll operator yet. Reports he has only been taking the Procardia 60 mg half a tablet daily. Reports his blood pressures were too low when he was taking that and the Coreg. He has a history in his chart of afibrillation he is not sure of that. Will Diabetes-he was on insulin for quite some time but was having low blood sugars so he stopped the insulin a couple months ago. We will check his hemoglobin A1c today he is currently not on any diabetic medications CHF-unsure if it is chronic or history of an acute problem while he was in the hospital. Will need to do further chart review, patient states he is not sure. Denies any chest pain or shortness of breath COPD/emphysema-patient is not sure about this diagnosis, states he is not on any inhalers and does not feel like he needs any. Denies any shortness of breath or significant cough. Neuropathy-reports present prior to him getting sick last year and that was in his feet bilaterally, at that time he was taking gabapentin 100 mg twice daily. He would like to resume that if possible Upper back pain on the left side-reports he has had this for several months and he has had imaging and no one knows what it is from. He does report that he had several thoracentesis on that side when he was in the hospital. Macular degeneration- [facility] for injection in right eye for macular degeneration. States he does not have a regular eye doctor [phone] Mood/anxiety-reports his mood is expected with the recent loss of some changes. Denies any suicidal or homicidal ideation. Reports that his anxiety gets worse intermittently and he was given a prescription for lorazepam which he has used a few times and has been very helpful. He states he understands that it is a controlled substance and knows the risks associated with it. Medical History[1] Surgical History[2] Family History[3] Social History Socioeconomic History Marital status: Spouse name: Not on file Number of children: Not on file Years of education: Not on file Highest education level: Not on file Occupational History Not on file Tobacco Use Smoking status: Former Types: Cigarettes Smokeless tobacco: Never Substance and Sexual Activity Alcohol use: Not Currently Drug use: Not on file Sexual activity: Not on file Other Topics Concern Not on file Social History Narrative Not on file Social Drivers of Health Financial Resource Strain: Low Risk (01/11/2024) Received from [facility] Overall Financial Resource Strain (CARDIA) Difficulty of Paying Living Expenses: Not hard at all Food Insecurity: No Food Insecurity (10/07/2024) Received from [facility] Hunger Vital Sign Worried About Running Out of Food in the Last Year: Never true Ran Out of Food in the Last Year: Never true Transportation Needs: No Transportation Needs (10/07/2024) Received from [facility] PRAPARE - Transportation Lack of Transportation (Medical): No Lack of Transportation (Non-Medical): No Physical Activity: Not on file Stress: No Stress Concern Present (01/11/2024) Received from [facility] [place] of Occupational Health - Occupational Stress Questionnaire Feeling of Stress : Only a little Social Connections: Socially Integrated (01/11/2024) Received from [facility] Social Connection and Isolation Panel [NHANES] Frequency of Communication with Friends and Family: Three times a week Frequency of Social Gatherings with Friends and Family: Once a week Attends Temple Services: More than 4 times per year Active Member of Clubs or Organizations: Yes Attends Club or Organization Meetings: 1 to 4 times per year Marital Status: Intimate Partner Violence: Not At Risk (02/12/2024) Humiliation, Afraid, Rape, and Kick questionnaire Fear of Current or Ex-Partner: No Emotionally Abused: No Physically Abused: No Sexually Abused: No Housing Stability: Unknown (10/07/2024) Received from [facility] Housing Stability Vital Sign Unable to Pay for Housing in the Last Year: No Number of Times Moved in the Last Year: Not on file Homeless in the Last Year: No Current Medications[4] Review of Systems Constitutional: Positive for fatigue and unexpected weight change. Negative for activity change, diaphoresis and fever. HENT: Positive for rhinorrhea. Respiratory: Negative. Cardiovascular: Negative. Gastrointestinal: Negative for abdominal distention, abdominal pain, blood in stool, constipation, diarrhea, nausea and vomiting. Belching Genitourinary: Negative for difficulty urinating. Reports he thinks he is urination normal amt Musculoskeletal: Positive for back pain (Upper left-). Negative for arthralgias. Neurological: Positive for light-headedness (occasional). Negative for dizziness. Psychiatric/Behavioral: Positive for sleep disturbance. The patient is nervous/anxious. Vitals: 01/29/25 1128 01/29/25 1255 BP: (!) 146/77 132/66 Pulse: 87 88 Resp: 18 Temp: 37.1 C (98.7 F) TempSrc: Infrared SpO2: 96% Weight: 121 lb 3.2 oz (55 kg) Physical Exam Constitutional: General: He is not in acute distress. Appearance: He is cachectic. He is not ill-appearing or toxic-appearing. HENT: Head: Normocephalic and atraumatic. Right Ear: Tympanic membrane normal. Left Ear: Tympanic membrane normal. Mouth/Throat: Mouth: Mucous membranes are moist. Pharynx: Oropharynx is clear. Eyes: Extraocular Movements: Extraocular movements intact. Conjunctiva/sclera: Conjunctivae normal. Cardiovascular: Rate and Rhythm: Normal rate and regular rhythm. Pulses: Normal pulses. Heart sounds: Normal heart sounds. Comments: Noted left upper chest port, dressing clean dry and intact Pulmonary: Effort: Pulmonary effort is normal. Breath sounds: Normal breath sounds. Abdominal: General: Abdomen is flat. Bowel sounds are normal. Palpations: Abdomen is soft. Tenderness: There is no abdominal tenderness. Musculoskeletal: Cervical back: Neck supple. Right lower leg: No edema. Left lower leg: No edema. Comments: Able to get on and off the exam table without difficulty Lymphadenopathy: Cervical: No cervical adenopathy. Skin: General: Skin is warm and dry. Neurological: General: No focal deficit present. Mental Status: He is alert and oriented to person, place, and time. Psychiatric: Mood and Affect: Mood normal. Behavior: Behavior normal. Thought Content: Thought content normal. Judgment: Judgment normal. An electronic signature was used to authenticate this note. Kalyani Crump, MALINA - LUCA 01/29/2025 6:04 PM [1] Past Medical History: Diagnosis Date Abdominal pain 01/28/2025 Acute left otitis media 01/28/2025 Adverse effect of drug 01/28/2025 Allergy, unspecified, sequela 02/12/2024 Anaphylactic shock, unspecified, sequela 02/12/2024 Blurring of visual image 01/28/2025 Calculus of kidney 01/28/2025 Cause of injury, fall 05/05/2024 Forehead laceration, initial encounter 05/05/2024 Myocardial infarction (HCC) 11/19/2023 Near syncope 07/07/2024 Open chest wound 03/12/2024 Other disorders of phosphorus metabolism 08/27/2024 Pleural effusion 02/12/2024 Unstable angina pectoris (CMS/HCC) (HCC) 11/15/2023 Wound dehiscence, surgical 03/27/2024 [2] No past surgical history on file. [3] No family history on file. [4] Current Outpatient Medications Medication Sig Dispense Refill Continuous Glucose Retail Office Associate (FreeStyle Roger 2 [place]) device Check blood glucose four times a day Continuous Glucose Sensor (FreeStyle Roger 2 Sensor) mis every 14 (fourteen) days. Change sensor NIFEdipine XL (Procardia XL) 60 MG 24 hr tablet Take 1 tablet by mouth daily. acetaminophen (Tylenol) 325 MG tablet Take 2 tablets (650 mg) by mouth every 6 hours as needed for mild pain (1-3). 30 tablet 0 amiodarone (Pacerone) 200 MG tablet Take 1 tablet (200 mg) by mouth daily. 30 tablet 11 aspirin 81 MG chewable tablet Chew 1 tablet (81 mg) daily. 30 tablet 11 atorvastatin (Lipitor) 80 MG tablet Take 1 tablet (80 mg) by mouth daily. 90 tablet 0 carvedilol (Coreg) 6.25 MG tablet Take 1 tablet by mouth twice a day. (Patient not taking: Reported on 01/29/2025) gabapentin (Neurontin) 100 MG capsule Take 1 capsule after dialysis three times weekly on Sunday, and Sunday 30 capsule 0 glucose (Glutose) 40 % gel oral gel Take 15 g by mouth as needed for low blood sugar. Hypoglycemia 10 g 0 LORazepam (Ativan) 0.5 MG tablet Take 1 tablet (0.5 mg) by mouth Nightly for 10 days. 10 tablet 0 pantoprazole (ProtoNix) 40 MG EC tablet Take 1 tablet (40 mg) by mouth every morning (before breakfast). Do not crush, chew, or split. 90 tablet 0 sevelamer carbonate (Renvela) 800 MG tablet Take 1 tablet (800 mg) by mouth in the morning and 1 tablet (800 mg) at noon and 1 tablet (800 mg) in the evening. Take with meals. Swallow tablet whole; do not crush, break, or chew.. 90 tablet 0 No current facility-administered medications for this visit. documented in this encounter [facility] 01-13-2025 Discharge summary [facility] 01-13-2025 Discharge summary Note Date/Time January 13, 2025 4:22pm [facility] Medical Records Department [address] [place] [address] Emergency Department Summary 01/13/25 MR#: [id number] Acct: [id number] Name: JOSE JOHN Rep #:[id number] : 1945 79 From: iNkolas Rose MD PCP: Care Physician,No Primary Status :REG ER Location: ED HPI History of Present Illness Chief Complaint: Chest Pain Detail of Chief Complaint: Chest heaviness and pressure that started after eating breakfast this robb Informant: patient Onset/Context/Timing Onset: Today and Yesterday Activity at onset: sudden and rest Timing: Continuous Quality: Positive for Heaviness and Pressure Location: Substernal Current Severity: Mild Maximum Severity: Moderate Worsened By: Breathing; Not Worsened By Exertion, Movement of Arm, Movement of Torso, Eating, Palpation or Coughing Relieved By: Nothing Associated Symptoms: Positive for Dyspnea and - (Numbness left little finger); Negative for Nausea, Vomiting, Diaphoresis, Cough, Fever, Lightheadedness, Acid Reflux or Palpitations Narrative Narrative: Patient is a 79-year-old male. He has history of coronary disease status post bypass surgery November of last year. He had a 90-day hospital stay after his surgery. After he was discharged he his and [id number] went to assistedliving facility in my [place]. His and [id number] both in November. He now lives independently at his residence. He lives alone. He does admit to being sad with increased appetite and unable to gain weight. Yesterday had an episode of chest discomfort. Could not tell me how long it lasted. This episode started after he had breakfast which he made for himself, sausage and Italian toast. He reported slight shortness of breath. He also complains of pain to the medial of the left scapula that radiates to the left shoulder. This is been going on for some time. He attributes this to sitting in dialysis for hours. He is on hemodialysis since last February. He goes on Sunday, Sunday and Sunday. Prior Similar Symptoms: Yes (Did not answer and was not similar to his anginal pain.) Recent Illness/Hospitalization: No CVD Risk Factors: Positive for Hypertension and Diabetes (Type II); Negative forSmoking PE Risk Factors: Negative for Recent Travel/Surgery, Recent Immobilization, Prior DVT or PE, Cancer or OCP + Smoking + >/=35 TAD Risk Factors: Positive for Hypertension; Negative for Marfan's Syndrome or Family History [facility] History DVT (deep venous thrombosis) Dialysis patient Carotid artery bruit Coronary artery disease Cardiomyopathy CKD (chronic kidney disease) stage 4, GFR 15-29 ml/min ZOFIA (acute kidney injury) Anemia Inguinal hernia of right side without obstruction or gangrene Easy bruising Neuropathy Former smoker Heartburn Chronic renal insufficiency, stage III (moderate) Depression Black tarry stools Diarrhea Abdominal pain Hx TIA/stroke w/o resid Mini stroke Fatigue Hypertension L eye torn retina Pseudobulbar affect Anxiety disorder Macular degeneration Kidney stones Osteoarthritis Diabetes type 2, uncontrolled Home Medications ?Medication ?Instructions ?Recorded ?Last Taken ?Type lorazepam 1 mg tablet (Ativan) 1 mg PO TID PRN anxiety #10 tabs 01/01/25 Unknown Rx carvedilol 6.25 mg tablet 6.25 mg PO BID 01/13/2504/30 History nifedipine 60 mg tablet,extended 60 mg PO DAILY 01/13/25 History release 24 hr Allergy/AdvReac Type Severity Reaction Status Date / Time lisinopril Allergy Severe raspy Verified 01/01/25 07:44 voice and cough Penicillins Allergy Anaphylaxis Verified 01/01/25 07:44 Sulfa (Sulfonamide Allergy Anaphylaxis Verified 01/01/25 07:44 Antibiotics) levofloxacin (From Levaquin) AdvReac Upset Verified 01/01/25 07:44 Stomach Family History Mother Diabetes Heart disease Hypertension CVA (cerebral vascular accident) Sister CVA (cerebral vascular accident) Heart disease Other High cholesterol Surgical History History of open heart surgery S/P laparoscopic hernia repair Previous back surgery Hx laparoscopic cholecystectomy Social History household members: none housing: house current occupational status: retired Smoking Status: Former smoker alcohol intake: never substance use type: does not use caffeine: Yes what type of physical activity do you participate in: none frequency: does not exercise ROS ROS ED Constitutional Constitutional ED: Denies chills, fever(s), subjective, sweats or weight loss Eyes Eyes: Reports none ENT ENT ED: Denies rhinorrhea or sore throat Cardiovascular Cardiovascular: Reports as per HPI; Denies orthopnea or paroxysmal nocturnal dyspnea Respiratory/Chest Respiratory/Chest: Reports dyspnea; Denies cough, dyspnea on exertion, orthopneaor paroxysmal nocturnal dyspnea Gastrointestinal Gastrointestinal: Denies abdominal pain, nausea or vomiting Genitourinary Genitourinary ED: Denies dysuria, hematuria or urinary frequency Musculoskeletal Musculoskeletal: Reports back pain and other Details: Medial of the left scapularadiates to the arm. Nothing makes the pain better or worse. Is been intermittent for some time. ; Denies arthralgias, myalgias or neck pain Integumentary Denies rash Neurologic Neurologic: Reports paresthesias LUE (Left little finger with onset of chest discomfort this morning.) Psychiatric Psychiatric: Reports anxiety and depression; Denies suicidal ideation Hematologic/Lymphatic Hematologic/Lymphatic: Reports other Details: Patient states he is on no antithrombotic or anticoagulant. ; Denies easy bleeding or easy bruising EXAM Physical Exam Const Vital Signs: 01/13/25 12:49 01/13/25 13:29 01/13/25 13:49 Temperature 97.7 F L Temperature Source Oral Pulse Rate 71 73 Respiratory Rate 13 19 H Blood Pressure 132/69 H 128/55 H Blood Pressure Mean 90 79 Pulse Ox 97 95 Oxygen Delivery Method Room Air Room Air 01/13/25 14:00 01/13/25 15:00 Temperature Temperature Source Pulse Rate 73 73 Respiratory Rate 19 H 16 Blood Pressure 128/55 H 128/65 H Blood Pressure Mean 79 86 Pulse Ox 95 96 Oxygen Delivery Method Room Air Room Air Positive well nourished and obese Constitutional Narrative: Patient's mood and affect are depressed and flat respectively. General Appearance ED: NAD Nutritional Appearance: obese HEENT Reports moist mucous membranes normocephalic and atraumatic Eyes PERRL and EOMs intact bilaterally General Eye ED: Negative for pale conjunctiva or scleral icterus Neck no lymphadenopathy, supple and no JVD Chest Wall inspection of chest normal and palpation of chest normal Chest Narrative: Well-healed mid sternotomy scar noted. There is no pain to palpation. Resp normal respiratory effort and clear to auscultation bilaterally Cardio regular rate, regular rhythm, S1 normal heart sound, S2 normal heart sound and no murmurs GI normal to inspection, nondistended, normoactive bowel sounds, soft to palpation,non-tender, non-distended and no masses; Negative for hepatosplenomegaly GI Narrative: There is no pulsatile mass or abdominal bruit. Back/Spine no CVA tenderness and no thoracic nor lumbar tenderness Extremity normal to inspection General Extremety ED: Negative for edema General Extremity: Negative for edema Neuro oriented x3 and CN's II-XII intact bilaterally Sensorium / Orientation: awake and alert Psych Mood & Affect: depressed Skin no rashes or lesions noted and no wounds MDM MDM MDM Narrative Medical decision making narrative: Differential diagnosis would be cardiac which would be angina versus non-STEMI, noncardiac which would include reflux, peptic ulcer disease. He does endorse history of reflux. He is present no meds. Does not recall what medication he was taking. Also need to consider pulmonary. With the pain being intermittent over the last couple days doubt this is pulmonary embolus. Patient does endorsepleuritic component. This could be due to pleurisy or other causes. Patient was seen January 01 for hypertension. His blood pressure meds were changed. Patient was seen at outside facility for vascular referral consult. Discussion was related to vein mapping. Also office visit August 15, 2024 for vitreal retinal consultation. Summary was reviewed. Seen April 2024 for left-sidedlow back pain at [facility]. History & Record Review Additional record(s) reviewed:: Prior outpatient record, Prior ED visit and Prior labs Lab Data Attestation: I reviewed the patient's lab results. Lab results narrative: CBC reveals mild anemia. BUN and creatinine are 26 and 4.21. Patient is on hemodialysis. This could be the reason for his elevated troponin. Glucose is elevated 136 with normal CO2 anion gap. Labs: Laboratory Results - last 24 hr 01/13/25 01/13/25 13:14 15:04 WBC 6.0 RBC 3.72 L Hgb 11.6 L Hct 35.5 L MCV 95.4 H MCH 31.2 MCHC 32.7 RDW Std Deviation 50.9 H RDW Coeff of Keith 14.6 Plt Count 127 L MPV 10.7 Immature Gran % (Auto) 0.200 Neut % (Auto) 71.8 H Lymph % (Auto) 14.3 L Pima % (Auto) 10.6 H Eos % (Auto) 2.3 Baso % (Auto) 0.8 Absolute Neuts (auto) 4.3 Absolute Lymphs (auto) 0.86 Nucleated RBC % 0 Sodium 138 Potassium 4.0 Chloride 99 Carbon Dioxide 27.4 Anion Gap 11 BUN 26 H Creatinine 4.21 H Estim Creat Clear Calc 11.97 L Est GFR (MDRD) Non-Af 14 L BUN/Creatinine Ratio 6.1 L Glucose 136 H Calcium 8.5 Troponin T High Sens 79 H* D Troponin T Hi Sens 2 Hr 75 H* Troponin on January 01 was 73. Awaiting 2-hour troponin. Second troponin is 75 with a delta of -4. This is in line with prior troponin levels. Suspect that this is chronically elevated due to the fact that he is on hemodialysis. Plan is to discharge to home. Radiography Chest X-Ray - ED: 1 View and Read by ED Physician (Patient's had prior surgery with sternal wires noted. He has pleural plaques noted. Cardiac silhouette size is unremarkable. Osseous structures reveal no acute abnormality. Prior x-ray for comparison was made patient had a history of heart failure at that time. Patient has a dialysis catheter n) Diagnostic Testing: Clinical Impression(s) from Imaging Studies Chest X-Ray 01/13/25 13:35 IMPRESSION: There is cardiomegaly with mild central vascular congestion, similar to the prior. There is infiltrate in the left midlung and right lung base, similar to the prior. There is blunting of the costophrenic angle on the right and left consistent with trace effusions, unchanged. [facility] Initial EKG: Attestation: I personally reviewed and interpreted this EKG as follows: Interpretation: Sinus Rhythm (Rate is 69. There is decreased anterior force. QT is prolonged. OR interval is 136 ms. QRS duration is 94 ms. QT duration is 452 ms. [place] is normal.) Treatment and Re-Evaluation :: Patient was informed of his results. Case management did see him. He has good support system. She did give him information. Discharge Plan Triage Chief Complaint: Chest Pain ED Provider: Nikolas Rose Dx/Rx/DC Orders Clinical Impression: Chest pressure, Hypertension, History of coronary artery disease, Type 2 diabetes mellitus, Anemia Instructions: ED Chest Pain, Noncardiac, ED Chest Pain, Uncertain Cause Prescriptions: No Action lorazepam [Ativan] 1 mg tablet 1 mg PO TID PRN (Reason: anxiety) Qty: 10 0RF Patient Comments: PT IS OUT OF MED nifedipine 60 mg tablet extended release 24hr 60 mg PO DAILY carvedilol 6.25 mg tablet 6.25 mg PO BID Primary Care Provider: Care Physician,No Primary Referrals: Care Physician,No Primary [Primary Care Provider] - Kanchan Tovar MD [[facility]] - 1-2 Weeks Print Language: Romanian Disposition Disposition: Home, Self Care What to do if you have Problems For any increased pain, shortness of breath, bleeding, nausea or vomiting, chestpain, or any unexpected problems, contact your Primary Care Provider. Call [employer] [facility] ([phone]) or report to the closest Emergency Room. Call 911 if necessary. 01/13/25 1625 <Electronically signed by Nikolas Rose MD> Cosigner Signature (if applicable): CC: No Primary Care Physician ~ Signed [facility] Work Phone: [phone] 710-682706-10-2025 Radiology Diagnostic study note [facility] Imaging Services [address] [place] [address] Chest 1 View (Portable) MR#: [id number] Acct: [id number] Name: JOSE JOHN Rep #: [id number] : 1945 M 79 From: Zackary Hall MD PCP: Care Physician,No Primary Status: PRE ER Study:Chest 1 View (Portable) Date of Exam: 01/13/25 Exam# [id number] Ordering Dr: Pete Rose MD PROCEDURE: CHEST 1 VIEW (PORTABLE) 01/13/2025 REASON FOR EXAM: CHEST PAIN TECHNIQUE: Frontal view of the chest. COMPARISON: January 01, 2025 FINDINGS: There is a dual-lumen central line on the left with its tip in the superior venacava at the right atrium, unchanged. Sternotomy wires and hardware are unchanged. There is cardiomegaly with mild central vascular congestion, similar to the prior. There is infiltrate in the left midlung and right lung base, similar to the prior. Thereis no visible pneumothorax. There is blunting of the costophrenic angle on the right and left consistent with trace effusions. There is no visible pneumothorax. There is no acute bony abnormality. RAD/Chest 1 View (Portable) IMPRESSION: There is cardiomegaly with mild central vascular congestion, similar to the prior. There is infiltrate in the left midlung and right lung base, similar to the prior. There is blunting of the costophrenic angle on the right and left consistent with trace effusions, unchanged. Reading Location: [facility] CC: Dr. Nikolas Rose MD; No Primary Care Physician ~ Access Specialist: Signed [facility]05-29-2025 Radiology Diagnostic study note [facility] Imaging Services [address] [place] [address] Abdomen/Pelvis without Cont MR#: [id number] Acct: [id number] Name: JOSE JOHN Rep #: [id number] : 1945 M 79 From: Sarath Newby MD PCP: Care Physician,No Primary Status: REG ER Study:Abdomen/Pelvis without Cont Date of Exa m: 01/01/25 Exam# [id number] Ordering Dr: Nithya Mcfarland DO PROCEDURE: ABDOMEN/PELVIS WITHOUT CONT 01/01/2025 REASON FOR EXAM: LEFT FLANK PAIN TECHNIQUE: Abdomen and pelvis CT without intravenous contrast. Noncontrast technique limits evaluation of the abdominal and pelvic viscera. Coronal and Sagittal reconstruction series were provided. One or more dose reduction techniques were used (e.g., Automated exposure control, adjustment of the mA and/or kV according to patient size, use of iterative reconstruction technique). PATIENT PREPARATION: Per protocol ORAL CONTRAST TYPE: None. Radiation dose report: CTDI L volume: 6.04. DLP: 292.95 COMPARISON: Prior renal sonogram dated November 14, 2023. FINDINGS: Lung bases: Small bilateral pleural effusions right greater than left with bibasilar infiltration and/or atelectasis. Fluid is seen within the right major fissure. Coronary artery calcification. Liver: Normal size. No obvious mass. Gallbladder: Surgically absent. Spleen: Borderline splenomegaly. Multiple calcified splenic granulomas. Pancreas: Normal size. No surrounding inflammation. Adrenals: Unremarkable Kidneys: Atrophy of the left kidney. There is a nonobstructive calculus in the lower pole calyx of the left kidney measuring 7.9 mm. Bladder: Mild degree of bladder wall thickening. Diffuse enlargement of the prostate measures 5.2 cm. This causes indentation of the bladder base. Prostatic calcifications. Bowel: Colonic diverticulosis without diverticulitis. Appendix: Unremarkable Lymph nodes: Unremarkable. Vasculature: Extensive atherosclerotic calcification of the abdominal aorta and the major branches. Peritoneum / Retroperitoneum: Unremarkable Bones: Degenerative changes of the spine. CT/Abdomen/Pelvis without Cont IMPRESSION: Bilateral pleural effusions right greater than left with bibasilar infiltration and/or atelectasis worse at the right lung base. Borderline splenomegaly and calcified splenic granulomas. Left renal atrophy. Nonobstructive calculus in the lower pole calyx of the leftkidney. No evidence of ureteral obstruction at this time. Prostatic enlargement with indentation at the bladder base. OVERALL FINAL ASSESSMENT: . LI-RADS is not meant to be used in patients <18 years or patients with cirrhosisdue to congenital hepatic fibrosis or due to vascular disorders, because these patients have a lower chance of developing HCC. Reading Location: [facility] CC: Dr. Lena Mcfarland DO; No Primary Care Physician ~ Access Specialist: Signed [facility]05-29-2025 Radiology Diagnostic study note [facility] Imaging Services [address] [place] [address] Chest 1 View (Portable) MR#: [id number] Acct: [id number] Name: JOSE JOHN Rep #: [id number] : 1945 M 79 From: Sarath Newby MD PCP: Care Physician,No Primary Status: REG ER Study:Chest 1 View (Portable) Date of Exam: 01/01/25 Exam# [id number] Ordering Dr: Nithya Mcfarland DO PROCEDURE: CHEST 1 VIEW (PORTABLE) 01/01/2025 REASON FOR EXAM: DYSPNEA TECHNIQUE: Frontal view of the chest. COMPARISON: Prior study dated November 13, 1999 4. FINDINGS: Hardware: A left-sided double-lumen catheter is seen with the tip at the cavoatrial junction.. EKG electrodes are seen. Heart: Prior midline sternotomy. Cardiomegaly. Lungs: Vascular congestion and CHF. Increased markings at the lung bases more prominent on the right side suggestive of bibasilar atelectasis and/or early infiltrate. Blunting of the right costophrenic angle. Bones: Degenerative changes are identified within the thoracic spine. Other: RAD/Chest 1 View (Portable) IMPRESSION: Findings suggestive of vascular congestion and CHF with bibasilar atelectasis and/or early infiltrate more prominent the right lung base. The tip of the left-sided double-lumen catheter is at the junction of the superior vena cava and right atrium. Reading Location: [facility] CC: Dr. Lena Mcfarland DO; No Primary Care Physician ~ Access Specialist: Signed [facility]03-10-2025 NoteHNO ID: [id number] Author: FINA CALLAHAN RN Service: ? Author Type: Registered Nurse Type: Progress Notes Filed: 10/13/2024 11:24 Note Text: TRANSITION CARE MANAGEMENT (TCM) INITIAL CONTACT Provider Update: Patient Concerns: 1. Not needing insulin - sliding scale readings are not requiring treatment. He was taking Lantus at bedtime, but has stopped because his BS was going low overnight. Needs from Physician/Office: 1. Follow-up appt, declined transfer. Will call to schedule. Call Summary: Call placed to Jose John for transitional care management follow-up call. Spoke with patient. Patient returned call. TCM outreach completed. He is feeling better, states he was never SOB, but was unable to take deep breaths/was shallow breathing - has improved since DC. He has only used albuterol x1, not using tessalon perles. Reviewed AVS - patient verbalized an understanding. He is monitoring his blood sugars, has not needed to use any sliding scale insulin, readings less than 151. He states he was taking Lantus 4 units at bedtime, but he was waking up with a low blood sugar between 2a-4a requiring him to eat/drink something. He states dose was lowered to 2 units, but he was waking low at 5am. He is not currently taking Lantus. Per AVS - Lantus to be held until PCP follow-up. He has had one high reading into the 200's, but that was AFTER eating a large meal. Endo appt 11/19/24, encouraged PCP appt for follow-up - patient to call to schedule (currently at dialysis). Encouraged to reach out to PCP or specialty provider if new or worsening symptoms. APPOINTMENTS/SERVICES Reviewed follow up appointments per discharge summary. yes Reviewed the following additional services: None SDOH With in the past 12 months, have you had any concerns with not having reliable transportation that has kept you from medical appointments or from getting things you needed for daily living? No Within the past 12 months, have you run out of food or been concerned that your were not going to be able to afford food? No MEDICATION REVIEW Confirmed patient able to obtain medications (new and/or refills): Yes Reviewed medications below in detail. Patient reports compliance with appropriate medications at this time. FOLLOW-UP Additional Concerns/ Needs: None Additional follow-up: None needed at this time [facility]ed [facility]: [facility] Patient identified by name and . TCM Eligibility Documentation Program: Transitional Care Management Status: Enrolled Effective Dates: 10/09/2024 - present Responsible Staff: Fina Callahan RN Discharge date: 10/09/2024 (Program start) Date of initial contact: 10/13/2024 Initial contact Target status: Successful; Contact made within 2 business days post-discharge SUMMARY: -Admitted for: SOB, pneumonia -Pt discharged from [place] on 10/09/24. -Follow up appointment: To be scheduled. Declined transfer, will call to schedule. -Medication review completed. NEW OR CHANGED MEDICATIONS: Start taking these medications albuterol HFA 90 mcg/actuation inhaler Commonly known as: PROVENTIL HFA Inhale 1-2 Puffs as instructed every 6 hours as needed for wheezing/shortness of breath. azithromycin 500 mg tablet Commonly known as: ZITHROMAX Start taking on: October 10, 2024 Take 1 tablet by mouth once daily for 3 days. benzonatate 100 mg capsule Commonly known as: TESSALON PERLE Take 1 capsule by mouth three times a day as needed for cough for up to 7 days. blood sugar diagnostic test strip Commonly known as: BLOOD GLUCOSE TEST Use with blood glucose test three times a day. Insulin Dep? Yes Signed by: Kamron Ortiz APRN.INTEGRATION ENGINEER Use with blood glucose test three times a day. Insulin Dep? Yes Blood-Glucose Meter Check blood glucose - fasting daily Signed by: Kamron Ortiz APRN.CNP Check blood glucose - fasting daily cefdinir 300 mg capsule Commonly known as: OMNICEF Start taking on: October 10, 2024 Take 1 capsule by mouth every 48 hours for 4 days. Take on Sunday10/10/24 and Sunday10/12/24. Patient should start on October 10, 2024. Signed by: Kamron Ortiz APRN.CNP Take 1 capsule by mouth every 48 hours for 4 days. Take on Sunday10/10/24 and Sunday10/12/24. Patient should start on October 10, 2024. guaiFENesin 600 mg 12 hr tablet Commonly known as: MUCINEX Take 1 tablet by mouth two times a day for 14 days. insulin lispro 100 unit/mL Commonly known as: HumaLOG KwikPen Insulin Administer three times daily with meals ADMINISTER CORRECTIONAL INSULIN REGARDLESS OF MEAL OR NUTRITION INTAKE Scale 1 If Blood Glucose (mg/dL) is: Less than 110 Give 0 units 111-150 Give 0 units 151-200 Give 1 unit 201-250 Give 2 units 251-300 Give 3 units 301-350 Give 4 units 351-400 Give 5 units Greater than 400 Give 5 units and Notify Provider Notify provider if 2 consecutive blood glucose values in the previous 24 hours are greater than 250 mg/dL and there have been no changes to (more content not included)...[facility]03-10-2025 History of Present illness Narrative* Fina Callahan RN - 10/13/2024 11:23 AM EDT TRANSITION CARE MANAGEMENT (TCM) INITIAL CONTACT Provider Update: Patient Concerns: 1. Not needing insulin - sliding scale readings are not requiring treatment. He was taking Lantus at bedtime, but has stopped because his BS was going low overnight. Needs from Physician/Office: 1. Follow-up appt, declined transfer. Will call to schedule. Call Summary: Call placed to Jose John for transitional care management follow-up call. Spoke with patient. Patient returned call. TCM outreach completed. He is feeling better, states he was never SOB, but was unable to take deep breaths/was shallow breathing - has improved since DC. He has only used albuterol x1, not using tessalon perles. Reviewed AVS - patient verbalized an understanding. He is monitoring his blood sugars, has not needed to use any sliding scale insulin, readings less than 151. He states he was taking Lantus 4 units at bedtime, but he was waking up with a low blood sugar between 2a-4a requiring him to eat/drink something. He states dose was lowered to 2 units, but he was waking low at 5am. He is not currently taking Lantus. Per AVS - Lantus to be held until PCP follow-up. He has had one high reading into the 200's, but that was AFTER eating a large meal. Endo appt 11/19/24, encouraged PCP appt for follow-up - patient to call to schedule (currently at dialysis). Encouraged to reach out to PCP or specialty provider if new or worsening symptoms. APPOINTMENTS/SERVICES Reviewed follow up appointments per discharge summary. yes Reviewed the following additional services: None SDOH With in the past 12 months, have you had any concerns with not having reliable transportation that has kept you from medical appointments or from getting things you needed for daily living? No Within the past 12 months, have you run out of food or been concerned that your were not going to be able to afford food? No MEDICATION REVIEW Confirmed patient able to obtain medications (new and/or refills): Yes Reviewed medications below in detail. Patient reports compliance with appropriate medications at this time. FOLLOW-UP Additional Concerns/ Needs: None Additional follow-up: None needed at this time Routed to PCP: Yes, sent in [facility] Patient identified by name and . TCM Eligibility Documentation Program: Transitional Care Management Status: Enrolled Effective Dates: 10/09/2024 - present Responsible Staff: Fina Callahan RN Discharge date: 10/09/2024 (Program start) Date of initial contact: 10/13/2024 Initial contact Target status: Successful; Contact made within 2 business days post-discharge SUMMARY: -Admitted for: SOB, pneumonia -Pt discharged from [place] on 10/09/24. -Follow up appointment: To be scheduled. Declined transfer, will call to schedule. -Medication review completed. NEW OR CHANGED MEDICATIONS: Start taking these medications albuterol HFA 90 mcg/actuation inhaler Commonly known as: PROVENTIL HFA Inhale 1-2 Puffs as instructed every 6 hours as needed for wheezing/shortness of breath. azithromycin 500 mg tablet Commonly known as: ZITHROMAX Start taking on: October 10, 2024 Take 1 tablet by mouth once daily for 3 days. benzonatate 100 mg capsule Commonly known as: TESSALON PERLE Take 1 capsule by mouth three times a day as needed for cough for up to 7 days. blood sugar diagnostic test strip Commonly known as: BLOOD GLUCOSE TEST Use with blood glucose testthree times a day. Insulin Dep? Yes Signed by: Kamron Ortiz APRN.INTEGRATION ENGINEER Use with blood glucose test three times a day. Insulin Dep? Yes Blood-Glucose Meter Check blood glucose - fasting daily Signed by: Kamron Ortiz APRN.INTEGRATION ENGINEER Check blood glucose - fasting daily cefdinir 300 mg capsule Commonly known as: OMNICEF Start taking on: October 10, 2024 Take 1 capsule bymouth every 48 hours for 4 days. Take on Sunday10/10/24 and Sunday10/12/24. Patient should start on October 10, 2024. Signed by: Kamron Ortiz APRN.INTEGRATION ENGINEER Take 1 capsule by mouth every 48 hours for 4 days. Take on Sunday10/10/24 and Sunday10/12/24. Patient should start on October 10, 2024. guaiFENesin 600 mg 12 hr tablet Commonly known as: MUCINEX Take 1 tablet by mouth two times a day for 14 days. insulin lispro 100 unit/mL Commonly known as: HumaLOG KwikPen Insulin Administer three times daily with meals ADMINISTER CORRECTIONAL INSULIN REGARDLESS OF MEAL OR NUTRITION INTAKE Scale 1 If Blood Glucose (mg/dL) is: Less than 110 Give 0 units 111-150 Give 0 units 151-200 Give 1 unit 201-250 Give 2 units 251-300 Give 3 units 301-350 Give 4 units 351-400 Give 5 units Greater than 400 Give 5 units and Notify Provider Notify provider if 2 consecutive blood glucose values in the previous 24 hours are greater than 250 mg/dL and there have been no changes to the insulin regimen in the previous 24 hours. Signed by: Kamron Ortiz APRN.INTEGRATION ENGINEER Administer three times daily with meals ADMINISTER CORRECTIONAL INSULIN REGARDLESS OF MEAL OR NUTRITION INTAKE Scale 1 If Blood Glucose (mg/dL) is: Less than 110 Give 0 units 111-150 Give 0 units 151-200 Give 1 unit 201-250 Give 2 units 251-300 Give 3 units 301-350 Give 4 units 351-400 Give 5 units Greater than 400 Give 5 units and Notify Provider Notify provider if 2 consecutive blood glucose values in the previous 24 hours are greater than 250 mg/dL and there have been no changes to the insulin regimen in the previous 24 hours. Insulin Struthers (Disposable) 32 gauge x 5/32 Commonly known as: BD ULTRA-FINE LIANE PEN NEEDLE Use as directed Signed by: Kamron Ortiz APRN.INTEGRATION ENGINEER Use as directed Lancets Use with blood glucose test three times a day. Insulin Dep? Yes Signed by: Kamron Ortiz APRN.INTEGRATION ENGINEER Use with blood glucose test three times a day. Insulin Dep? Yes predniSONE 20 mg tablet Commonly known as: DELTASONE Start taking on: October 10, 2024 Take 2 tablets by mouth once daily for 1 day, THEN 1.5 tablets once daily for 3 days, THEN 1 tablet once daily for 3 days, THEN 0.5 tablets once daily for 3 days. Patient should start on October 10, 2024. Signed by: Kamron Ortiz APRN.INTEGRATION ENGINEER Copied from discharge summary/AVS Change the way you take these medications insulin glargine 100 unit/mL (3 mL) Inject 4 Units subcutaneously daily at bedtime. DO NOT Take until you follow-up with your PCP Copied from discharge summary/AVS MEDS HELD/DISCONTINUED: NA BRIEF HOSPITAL COURSE: You were admitted from the ER on 10/06/2024 for SOB (shortness of breath) under Edwige Whitehead MD. It was determined you would benefit from admission to the hospital. You were in the hospital for 3days. In the ER, CXR showed stable linear atelectasis and/or scarring at the right base adjacent tomildly elevated right hemidiaphragm; Trace pleural effusions. Antibiotics were started due to concern for pneumonia. You were admitted to the medical floor. IV antibiotics were continued. CT chest was offered but you refused imaging at this time. Steroids were given. Your symptoms improved. You will be discharge on an oral steroid taper, albuterol inhaler to be used as needed for shortness of breath, and antibiotics (Cefdinir and Azithromycin) to complete a 7-day course. You will need to follow-up with your PCP as outpatient to schedule outpatient pulmonary function testing (PFT's). Nephrology was consulted for ESRD and dialysis which you underwent and tolerated. Heart rate was noted to decrease transiently. Coreg was temporarily stopped. Heart rate was monitored and remained stable. Coreg will be resumed upon discharge. Diabetic education was consulted. Blood glucose meter, lancets, and blood glucose strips will be ordered upon discharge. You will need to follow-up with Endocrinologyupon discharge for continued management of your diabetes. Wound care was consulted and gave treatment recommendations. See DC instructions. You will be discharged to [facility]. Please follow-up with Dr. Bailey in 1 week. Continue to follow-up with Nephrology for dialysis on MW. Copied from discharge summary/AVS To ensure that you have follow-up with your primary care provider, I can transfer you to MD Gabriela's office to set up a follow-up appointment now. Are you okay with me transferring you now? No, will call to schedule Edwige Bailey MD [phone] Fina Callahan RN October 13, 2024 11:05 AM documented [facility] NotePatient Outreach (QAINDP) JOSE JOHN ([id number]) 1945 M Date Time Provider Department 10/13/24 FINA CALLAHAN During your visit today, we recorded the following information about you: Fina Callahan RN 10/13/2024 11:24 AM Signed TRANSITION CARE MANAGEMENT (TCM) INITIAL CONTACT Provider Update: Patient Concerns: 1. Not needing insulin - sliding scale readings are not requiring treatment. He was taking Lantus at bedtime, but has stopped because his BS was going low overnight. Needs from Physician/Office: 1. Follow-up appt, declined transfer. Will call to schedule. Call Summary: Call placed to Jose John for transitional care management follow-up call. Spoke with patient. Patient returned call. TCM outreach completed. He is feeling better, states he was never SOB, but was unable to take deep breaths/was shallow breathing - has improved since DC. He has only used albuterol x1, not using tessalon perles. Reviewed AVS - patient verbalized an understanding. He is monitoring his blood sugars, has not needed to use any sliding scale insulin, readings less than 151. He states he was taking Lantus 4 units at bedtime, but he was waking up with a low blood sugar between 2a-4a requiring him to eat/drink something. He states dose was lowered to 2 units, but he was waking low at 5am. He is not currently taking Lantus. Per AVS - Lantus to be held until PCP follow-up. He has had one high reading into the 200's, but that was AFTER eating a large meal. Endo appt 11/19/24, encouraged PCP appt for follow-up - patient to call to schedule (currently at dialysis). Encouraged to reach out to PCP or specialty provider if new or worsening symptoms. APPOINTMENTS/SERVICES Reviewed follow up appointments per discharge summary. yes Reviewed the following additional services: None SDOH With in the past 12 months, have you had any concerns with not having reliable transportation that has kept you from medical appointments or from getting things you needed for daily living? No Within the past 12 months, have you run out of food or been concerned that your were not going to be able to afford food? No MEDICATION REVIEW Confirmed patient able to obtain medications (new and/or refills): Yes Reviewed medications below in detail. Patient reports compliance with appropriate medications at this time. FOLLOW-UP Additional Concerns/ Needs: None Additional follow-up: None needed at this time Routed to PCP: Yes, sent in [facility] Patient identified by name and . TCM Eligibility Documentation Program: Transitional Care Management Status: Enrolled Effective Dates: 10/09/2024 - present Responsible Staff: Fina Callahan RN Discharge date: 10/09/2024 (Program start) Date of initial contact: 10/13/2024 Initial contact Target status: Successful; Contact made within 2 business days post-discharge SUMMARY: -Admitted for: SOB, pneumonia -Pt discharged from [place] on 10/09/24. -Follow up appointment: To be scheduled. Declined transfer, will call to schedule. -Medication review completed. NEW OR CHANGED MEDICATIONS: Start taking these medications albuterol HFA 90 mcg/actuation inhaler Commonly known as: PROVENTIL HFA Inhale 1-2 Puffs as instructed every 6 hours as needed for wheezing/shortness of breath. azithromycin 500 mg tablet Commonly known as: ZITHROMAX Start taking on: October 10, 2024 Take 1 tablet by mouth once daily for 3 days. benzonatate 100 mg capsule Commonly known as: TESSALON PERLE Take 1 capsule by mouth three times a day as needed for cough for up to 7 days. blood sugar diagnostic test strip Commonly known as: BLOOD GLUCOSE TEST Use with blood glucose test three times a day. Insulin Dep? Yes Signed by: Kamron Ortiz APRN.INTEGRATION ENGINEER Use with blood glucose test three times a day. Insulin Dep? Yes Blood-Glucose Meter Check blood glucose - fasting daily Signed by: Kamron Ortiz APRN.INTEGRATION ENGINEER Check blood glucose - fasting daily cefdinir 300 mg capsule Commonly known as: OMNICEF Start taking on: October 10, 2024 Take 1 capsule by mouth every 48 hours for 4 days. Take on Sunday10/10/24 and Sunday10/12/24. Patient should start on October 10, 2024. Signed by: Kamron Ortiz APRN.INTEGRATION ENGINEER Take 1 capsule by mouth every 48 hours for 4 days. Take on Sunday10/10/24 and Sunday10/12/24. Patient should start on October 10, 2024. guaiFENesin 600 mg 12 hr tablet Commonly known as: MUCINEX Take 1 tablet by mouth two times a day for 14 days. insulin lispro 100 unit/mL Commonly known as: HumaLOG KwikPen Insulin Administer three times daily with meals ADMINISTER CORRECTIONAL INSULIN REGARDLESS OF MEAL OR NUTRITION INTAKE Scale 1 If Blood Glucose (mg/dL) is: Less than 110 Give 0 units 111-150 Give 0 units 151-200 Give 1 unit 201-250 Give 2 units 251-300 Give 3 units 301-350 Give 4 units 351-400 Give 5 units Greate (more content not included)...[facility]03-05-2025 Note HNO ID: [id number] Author: DIPTI CARLOS RN Service: Dialysis Author Type: Registered Nurse Type: Nursing Progress Note Filed: 10/08/2024 13:14 Note Text: Hemodialysis completed. TUF -1000ml, sherrill. Tx. Well.[facility] [id number] NoteProtestant [id number] [facility]2025 NoteProtest[facility] Hospital 10-06-2024 [id number] (AGENT OF COVID-19) RNA: Not detected INFLUENZA A RNA: Not detected INFLUENZA B RNA: Not detected RESPIRATORY SYNCYTIAL VIRUS (RSV) RNA: Not detectedProtestant HospitalComment on above:Performed By: #### [id number] ####[facility]ATORY[facility]IA [id number] [place], [place] [id number] [place] [address] OF [id number] [facility]12-03-2024 [facility]12-03-2024 NoteProtestant [id number] GczaLMQM-JDE-7 (AGENT OF COVID- 19) RNA: Not detected INFLUENZA A RNA: Not detected INFLUENZA B RNA: Not detected RESPIRATORY SYNCYTIAL VIRUS (RSV) RNA: Not detectedSlanesville HospitalComment on above:Performed By: #### [id number] ####[facility]ORATORYCLIA [id number] [place] [address] [facility]10-21-2024 Hospital Discharge instructions* Discharge Instructions* Nerissa Dawn DO - 05/26/2024 5:50 AM EDT Follow-up as scheduled today for dialysis. Return for new or concerning symptoms. Continue to take medication as prescribed. Follow-up with PCP for blood pressure medication management. documented in this [facility]10-21-2024 Emergency department Note* Nerissa Dawn DO - 05/26/2024 3:15 AM EDT EMERGENCY DEPARTMENT ENCOUNTER Pt Name: Jose John Birthdate 1945 Date of evaluation: 05/26/2024 ED Provider: Nerissa Dawn DO CHIEF COMPLAINT Chief Complaint Patient presents with Hypertension HISTORY OF PRESENT ILLNESS (Location/Symptom, Timing/Onset, Context/Setting, Quality, Duration, Modifying Factors, Severity) Note limiting factors. I wore appropriate PPE for the entirety of this encounter. HPI Jose John is a 79 y.o. who presents to the emergency department for [facility]. Patient with a history of hypertension and new medication changes however unknown medication changes. Patient's blood pressure has been high all day, was taken of the night due to patient being awake secondary to pain from rib fractures. He denies chest pain, vision changes, paresthesias, numbness, weakness, headache. Patient with a history of ESRD on hemodialysis due today, Sunday. He endorses last dialysis session was cut short due to discomfort sitting with rib fractures. Patient has pain and bruising from fall while at [facility]. Per chart review patient admitted to [facility] on 05/04/2024 for hypertensive urgency and failure to thrive. Patient was out of his home blood pressure medications prior to admission from their notes. Nursing Notes were reviewed. Limitations to history: Outside historians: REVIEW OF SYSTEMS Review of Systems Pertinent positives and negatives as per HPI PAST MEDICAL HISTORY No past medical history on file. SURGICAL HISTORY No past surgical history on file. CURRENT MEDICATIONS Previous Medications ACETAMINOPHEN (TYLENOL) 325 MG TABLET Take 2 tablets (650 mg) by mouth every 6 hours as needed for mild pain (1-3). AMIODARONE (PACERONE) 200 MG TABLET Take 1 tablet (200 mg) by mouth daily. ASPIRIN 81 MG CHEWABLE TABLET Chew 1 tablet (81 mg) daily. ATORVASTATIN (LIPITOR) 80 MG TABLET Take 1 tablet (80 mg) by mouth daily. CARVEDILOL (COREG) 3.125 MG TABLET Take 1 tablet (3.125 mg) by mouth in the morning and 1 tablet (3.125 mg) in the evening. Take with meals. GABAPENTIN (NEURONTIN) 100 MG CAPSULE Take 1 capsule (100 mg) by mouth 2 times daily. GLUCOSE (GLUTOSE) 40 % GEL ORAL GEL Take 15 g by mouth as needed for low blood sugar. Hypoglycemia INSULIN GLARGINE (LANTUS) 100 UNIT/ML INJECTION Inject 7 Units under the skin Nightly. INSULIN LISPRO (HUMALOG) 100 UNIT/ML SOLUTION INJECTION Inject 0-6 Units under the skin 3 times daily (with meals) AND 0-6 Units Nightly. Low Dose Correction Algorithm: LESS than 139- No Insulin, 140-199- 1 Unit, 200-249- 2 Units, 250-299- 3 Units, 300-349- 4 Units, 350-400- 5 Units, Above 400- 6 Units. INSULIN PEN NEEDLE 29G X 12.7MM [facility] Use to inject 1-4 times daily as directed. IPRATROPIUM-ALBUTEROL (DUO-NEB) 0.5-2.5 MG/3 ML NEBULIZER SOLUTION Take 3 mL by nebulization 3 times daily as needed for wheezing or shortness of breath. LORAZEPAM (ATIVAN) 0.5 MG TABLET Take 1 tablet (0.5 mg) by mouth Nightly for 10 days. MIRTAZAPINE (REMERON) 15 MG TABLET Take 1 tablet (15 mg) by mouth Nightly. PANTOPRAZOLE (PROTONIX) 40 MG EC TABLET Take 1 tablet (40 mg) by mouth every morning (before breakfast). Do not crush, chew, or split. SEVELAMER CARBONATE (RENVELA) 800 MG TABLET Take 1 tablet (800 mg) by mouth in the morning and 1 tablet (800 mg) at noon and 1 tablet (800 mg) in the evening. Take with meals. Swallow tablet whole; do not crush, break, or chew.. TIOTROPIUM (SPIRIVA RESPIMAT) 2.5 MCG/ACT INHALER Inhale 2 puffs daily. ALLERGIES Lisinopril, Penicillins, Sulfa antibiotics, and Levofloxacin FAMILY HISTORY No family history on file. SOCIAL HISTORY Social History Socioeconomic History Marital status: Tobacco Use Smoking status: Former Types: Cigarettes Smokeless tobacco: Never Substance and Sexual Activity Alcohol use: Not Currently Social Determinants of Health Financial Resource Strain: Low Risk (01/11/2024) Received from [facility] Overall Financial Resource Strain (CARDIA) Difficulty of Paying Living Expenses: Not hard at all Food Insecurity: No Food Insecurity (05/06/2024) Received from [facility] Hunger Vital Sign Worried About Running Out of Food in the Last Year: Never true Ran Out of Food in the Last Year: Never true Transportation Needs: No Transportation Needs (05/06/2024) Received from [facility] PRAPARE - Transportation Lack of Transportation (Medical): No Lack of Transportation (Non-Medical): No Stress: No Stress Concern Present (01/11/2024) Received from [facility] [place] [facility] Occupational Health - Occupational Stress Questionnaire Feeling of Stress : Only a little Social Connections: Socially Integrated (01/11/2024) Received from [facility] Social Connection and Isolation Panel [NHANES] Frequency of Communication with Friends and Family: Three times a week Frequency of Social Gatherings with Friends and Family: Once a week Attends Temple Services: More than 4 times per year Active Member of Clubs or Organizations: Yes Attends Club or Organization Meetings: 1 to 4 times per year Marital Status: Intimate Partner Violence: Not At Risk (02/12/2024) Humiliation, Afraid, Rape, and Kick questionnaire Fear of Current or Ex-Partner: No Emotionally Abused: No Physically Abused: No Sexually Abused: No Housing Stability: Unknown (05/06/2024) Received from [facility] Housing Stability Vital Sign Unable to Pay for Housing in the Last Year: No Homeless in the Last Year: No PHYSICAL EXAM ED Triage Vitals [05/26/24 0321] Temp Heart Rate Resp BP 36.4 C (97.6 F) 88 18 (!) 218/116 SpO2 Temp Source Heart Rate Source Patient Position 97 % Oral Monitor -- BP Location FiO2 (%) -- -- Physical Exam Vitals and nursing note reviewed. Constitutional: General: He is awake. He is not in acute distress. Appearance: Normal appearance. He is not toxic-appearing. HENT: Head: Normocephalic and atraumatic. Mouth/Throat: Pharynx: Oropharynx is clear. Eyes: Extraocular Movements: Extraocular movements intact. Conjunctiva/sclera: Conjunctivae normal. Pupils: Pupils are equal, round, and reactive to light. Cardiovascular: Rate and Rhythm: Normal rate and regular rhythm. Pulmonary: Effort: Pulmonary effort is normal. Breath sounds: Normal breath sounds. Musculoskeletal: General: Normal range of motion. Cervical back: Normal range of motion. Skin: General: Skin is warm and dry. Neurological: General: No focal deficit present. Mental Status: He is alert and oriented to person, place, and time. GCS: GCS eye subscore is 4. GCS verbal subscore is 5. GCS motor subscore is 6. Cranial Nerves: No cranial nerve deficit. Sensory: No sensory deficit. Motor: No weakness. Psychiatric: Speech: Speech normal. Behavior: Behavior is cooperative. DIAGNOSTIC RESULTS RADIOLOGY (Per Emergency Physician): Interpretation per the Radiologist below, if available at the time of this note: No orders to display LABS: Labs Reviewed CBC WITH AUTO DIFFERENTIAL - Abnormal Result Value Auto WBC 10.9 (*) RBC 4.16 (*) Hemoglobin 12.3 (*) Hematocrit 38.5 (*) MCV 92.5 MCH 29.6 MCHC 31.9 RDW 16.9 (*) Platelets 177 MPV 11.0 nRBC 0.0 Neutrophils Relative 87.5 (*) Lymphocytes Relative 5.8 (*) Monocytes Relative 6.1 Eosinophils Relative 0.1 Basophils Relative 0.1 Immature Grans % 0.4 Neutrophils Absolute 9.5 (*) Lymphocytes Absolute 0.6 (*) Monocytes Absolute 0.7 Eosinophils Absolute 0.0 Basophils Absolute 0.0 Immature Grans Absolute 0.0 BASIC METABOLIC PANEL - Abnormal SODIUM 133 (*) POTASSIUM 4.9 CHLORIDE 94 (*) CARBON DIOXIDE 29 UREA NITROGEN 58 (*) CREATININE 4.61 (*) GLUCOSE 234 (*) CALCIUM 9.2 ANION GAP 10 eGFR 12.4 (*) TROPONIN, WITH SERIAL REFLEX - Normal TROPONIN I 0.032 Narrative: Patients with high levels of Biotin oral intake (ie >5 mg/day) may have falsely decreased Troponin levels. BASIC METABOLIC PANEL WITH MG REFLEX Narrative: The following orders were created for panel order Basic Metabolic Panel w/ Mg Reflex. Procedure Abnormality Status --------- ------ Basic metabolic panel[[id number]] Abnormal Final result Please view results for these tests on the individual orders. All other labs were within normal range or not returned as of this dictation. EMERGENCY DEPARTMENT COURSE and DIFFERENTIAL DIAGNOSIS/MDM: Vitals: Vitals: 05/26/24 0321 05/26/24 0344 05/26/24 0452 05/26/24 0532 BP: (!) 218/116 (!) 203/107 (!) 198/100 Pulse: 88 81 78 Resp: 18 18 18 Temp: 36.4 C (97.6 F) TempSrc: Oral SpO2: 97% 99% 98% Weight: 60.5 kg (133 lb 6.1 oz) 60.3 kg (133 lb) Height: 1.778 m (5' 10) Medications oxyCODONE-acetaminophen (Percocet) 5-325 MG per tablet 1 tablet (1 tablet Oral Given 05/26/24 0406) carvedilol (Coreg) tablet 3.125 mg (3.125 mg Oral Given 05/26/24 0517) 79-year-old male presented to the ED for hypertension. Patient with a history of hypertension on antihypertensive medications with a recent admission for this and ESRD on dialysis with recent short session. Additionally patient having pain issues from recent fall with known rib fractures. Blood pressure initially 218/116 otherwise vital signs stable, further exam as above. Blood pressure improving without intervention at this time. Will evaluate for endorgan damage. Patient home medication for hypertension his Coreg 3.125. Patient given medication for pain control for rib fractures. He deniesany further trauma or falls 30 seen and evaluated for this and admitted previously. Workup revealed troponin within normal range, CBC minimal leukocytosis 10.9 hemoglobin 12.3 trendedand better than baseline otherwise grossly unremarkable, BMP with elevated BUN and creatinine, trended and within patient's baseline with ESRD history, glucose elevated at 234 expressed unremarkable.EKG sinus without signs of acute ischemia no STEMI. On reevaluation blood pressure was 203/107 without intervention, home medication ordered. Blood pressure on repeat 198/100, acceptable for discharge. Patient asymptomatic. No evidence of endorgan damage. Suspect element of fluid overload in need of dialysis scheduled for today at noon and pain increasing blood pressure. No indication for further evaluation or admission at this time. Patient stable for discharge with supportive care, return precautions, outpatient follow-up. Patient in agreementwith plan. SCREENINGS [place] Coma Scale Best Eye Response: Spontaneous Best Verbal Response: Oriented Best Motor Response: Follows commands [place] Coma Scale Score: 15 PROCEDURES: Unless otherwise noted below, none Procedures CRITICAL CARE TIME FINAL IMPRESSION 1. Asymptomatic hypertension 2. Pain DISPOSITION Discharge 05/26/2024 05:49:26 AM PATIENT REFERRED TO: Sammy Luther APRN [facility] [address] [facility] [address] [id number] DISCHARGE MEDICATIONS: New Prescriptions No medications on file (Comment: Please note this report has been produced using speech recognition software and may contain errors related to that system including errors in grammar, punctuation, and spelling, as well as words and phrases that may be inappropriate. If there are any questions or concerns please feel freeto contact the dictating provider for clarification.) Nerissa Dawn DO (electronically signed) Emergency Medicine Provider Nerissa Dawn DO 05/26/24 0628 * Esme Sloan RN - 05/26/2024 3:15 AM EDT Pt presents with htn from [facility] via [facility]. States new med changes but unsure what medications have changed. Pt has facial bruising and L rib pain from a fall that [facility]. Denies vision changes denies tingling/numbness/weakness denies lira.Is a dialysis pt, is due for dialysis today at noon. documented in this [facility]10-21-2024 Emergency department Triage note* Esme Sloan RN - 05/26/2024 3:15 AM EDT Pt presents with htn from [facility] via squad. States new med changes but unsure what medications have changed. Pt has facial bruising and L rib pain from a fall that he happenedwhile he was in [facility]. Denies vision changes denies tingling/numbness/weakness denies lira.Is a dialysis pt, is due for dialysis today at noon. [id number] Phys[facility] Emergency department Note* Nerissa Dawn DO - 05/26/2024 3:15 AM EDT EMERGENCY DEPARTMENT ENCOUNTER Pt Name: Jose John Birthdate 1945 Date of evaluation: 05/26/2024 ED Provider: Nerissa Dawn DO CHIEF COMPLAINT Chief Complaint Patient presents with Hypertension HISTORY OF PRESENT ILLNESS (Location/Symptom, Timing/Onset, Context/Setting, Quality, Duration, Modifying Factors, Severity) Note limiting factors. I wore appropriate PPE for the entirety of this encounter. HPI Jose John is a 79 y.o. who presents to the emergency department for hypertension from [facility] via EMS. Patient with a history of hypertension and new medication changes however unknown medication changes. Patient's blood pressure has been high all day, was taken of the night due to patient being awake secondary to pain from rib fractures. He denies chest pain, vision changes, paresthesias, numbness, weakness, headache. Patient with a history of ESRD on hemodialysis due today, Sunday. He endorses last dialysis session was cut short due to discomfort sitting with rib fractures. Patient has pain and bruising from fall while at [facility]. Per chart review patient admitted to [facility] on 05/04/2024 for hypertensive urgency and failure to thrive. Patient was out of his home blood pressure medications prior to admission from their notes. Nursing Notes were reviewed. Limitations to history: Outside historians: REVIEW OF SYSTEMS Review of Systems Pertinent positives and negatives as per HPI PAST MEDICAL HISTORY No past medical history on file. SURGICAL HISTORY No past surgical history on file. CURRENT MEDICATIONS Previous Medications ACETAMINOPHEN (TYLENOL) 325 MG TABLET Take 2 tablets (650 mg) by mouth every 6 hours as needed for mild pain (1-3). AMIODARONE (PACERONE) 200 MG TABLET Take 1 tablet (200 mg) by mouth daily. ASPIRIN 81 MG CHEWABLE TABLET Chew 1 tablet (81 mg) daily. ATORVASTATIN (LIPITOR) 80 MG TABLET Take 1 tablet (80 mg) by mouth daily. CARVEDILOL (COREG) 3.125 MG TABLET Take 1 tablet (3.125 mg) by mouth in the morning and 1 tablet (3.125 mg) in the evening. Take with meals. GABAPENTIN (NEURONTIN) 100 MG CAPSULE Take 1 capsule (100 mg) by mouth 2 times daily. GLUCOSE (GLUTOSE) 40 % GEL ORAL GEL Take 15 g by mouth as needed for low blood sugar. Hypoglycemia INSULIN GLARGINE (LANTUS) 100 UNIT/ML INJECTION Inject 7 Units under the skin Nightly. INSULIN LISPRO (HUMALOG) 100 UNIT/ML SOLUTION INJECTION Inject 0-6 Units under the skin 3 times daily (with meals) AND 0-6 Units Nightly. Low Dose Correction Algorithm: LESS than 139- No Insulin, 140-199- 1 Unit, 200-249- 2 Units, 250-299- 3 Units, 300-349- 4 Units, 350-400- 5 Units, Above 400- 6 Units. INSULIN PEN NEEDLE 29G X 12.7MM [facility] Use to inject 1-4 times daily as directed. IPRATROPIUM-ALBUTEROL (DUO-NEB) 0.5-2.5 MG/3 ML NEBULIZER SOLUTION Take 3 mL by nebulization 3 times daily as needed for wheezing or shortness of breath. LORAZEPAM (ATIVAN) 0.5 MG TABLET Take 1 tablet (0.5 mg) by mouth Nightly for 10 days. MIRTAZAPINE (REMERON) 15 MG TABLET Take 1 tablet (15 mg) by mouth Nightly. PANTOPRAZOLE (PROTONIX) 40 MG EC TABLET Take 1 tablet (40 mg) by mouth every morning (before breakfast). Do not crush, chew, or split. SEVELAMER CARBONATE (RENVELA) 800 MG TABLET Take 1 tablet (800 mg) by mouth in the morning and 1 tablet (800 mg) at noon and 1 tablet (800 mg) in the evening. Take with meals. Swallow tablet whole; do not crush, break, or chew.. TIOTROPIUM (SPIRIVA RESPIMAT) 2.5 MCG/ACT INHALER Inhale 2 puffs daily. ALLERGIES Lisinopril, Penicillins, Sulfa antibiotics, and Levofloxacin FAMILY HISTORY No family history on file. SOCIAL HISTORY Social History Socioeconomic History Marital status: Tobacco Use Smoking status: Former Types: Cigarettes Smokeless tobacco: Never Substance and Sexual Activity Alcohol use: Not Currently Social Determinants of Health Financial Resource Strain: Low Risk (01/11/2024) Received from [facility] Overall Financial Resource Strain (CARDIA) Difficulty of Paying Living Expenses: Not hard at all Food Insecurity: No Food Insecurity (05/06/2024) Received from [facility] Hunger Vital Sign Worried About Running Out of Food in the Last Year: Never true Ran Out of Food in the Last Year: Never true Transportation Needs: No Transportation Needs (05/06/2024) Received from [facility] PRAPARE - Transportation Lack of Transportation (Medical): No Lack of Transportation (Non-Medical): No Stress: No Stress Concern Present (01/11/2024) Received from [facility] [place] [facility] Occupational Health - Occupational Stress Questionnaire Feeling of Stress : Only a little Social Connections: Socially Integrated (01/11/2024) Received from [facility] Social Connection and Isolation Panel [NHANES] Frequency of Communication with Friends and Family: Three times a week Frequency of Social Gatherings with Friends and Family: Once a week Attends Temple Services: More than 4 times per year Active Member of Clubs or Organizations: Yes Attends Club or Organization Meetings: 1 to 4 times per year Marital Status: Intimate Partner Violence: Not At Risk (02/12/2024) Humiliation, Afraid, Rape, and Kick questionnaire Fear of Current or Ex-Partner: No Emotionally Abused: No Physically Abused: No Sexually Abused: No Housing Stability: Unknown (05/06/2024) Received from [facility] Housing Stability Vital Sign Unable to Pay for Housing in the Last Year: No Homeless in the Last Year: No PHYSICAL EXAM ED Triage Vitals [05/26/24 0321] Temp Heart Rate Resp BP 36.4 C (97.6 F) 88 18 (!) 218/116 SpO2 Temp Source Heart Rate Source Patient Position 97 % Oral Monitor -- BP Location FiO2 (%) -- -- Physical Exam Vitals and nursing note reviewed. Constitutional: General: He is awake. He is not in acute distress. Appearance: Normal appearance. He is not toxic-appearing. HENT: Head: Normocephalic and atraumatic. Mouth/Throat: Pharynx: Oropharynx is clear. Eyes: Extraocular Movements: Extraocular movements intact. Conjunctiva/sclera: Conjunctivae normal. Pupils: Pupils are equal, round, and reactive to light. Cardiovascular: Rate and Rhythm: Normal rate and regular rhythm. Pulmonary: Effort: Pulmonary effort is normal. Breath sounds: Normal breath sounds. Musculoskeletal: General: Normal range of motion. Cervical back: Normal range of motion. Skin: General: Skin is warm and dry. Neurological: General: No focal deficit present. Mental Status: He is alert and oriented to person, place, and time. GCS: GCS eye subscore is 4. GCS verbal subscore is 5. GCS motor subscore is 6. Cranial Nerves: No cranial nerve deficit. Sensory: No sensory deficit. Motor: No weakness. Psychiatric: Speech: Speech normal. Behavior: Behavior is cooperative. DIAGNOSTIC RESULTS RADIOLOGY (Per Emergency Physician): Interpretation per the Radiologist below, if available at the time of this note: No orders to display LABS: Labs Reviewed CBC WITH AUTO DIFFERENTIAL - Abnormal Result Value Auto WBC 10.9 (*) RBC 4.16 (*) Hemoglobin 12.3 (*) Hematocrit 38.5 (*) MCV 92.5 MCH 29.6 MCHC 31.9 RDW 16.9 (*) Platelets 177 MPV 11.0 nRBC 0.0 Neutrophils Relative 87.5 (*) Lymphocytes Relative 5.8 (*) Monocytes Relative 6.1 Eosinophils Relative 0.1 Basophils Relative 0.1 Immature Grans % 0.4 Neutrophils Absolute 9.5 (*) Lymphocytes Absolute 0.6 (*) Monocytes Absolute 0.7 Eosinophils Absolute 0.0 Basophils Absolute 0.0 Immature Grans Absolute 0.0 BASIC METABOLIC PANEL - Abnormal SODIUM 133 (*) POTASSIUM 4.9 CHLORIDE 94 (*) CARBON DIOXIDE 29 UREA NITROGEN 58 (*) CREATININE 4.61 (*) GLUCOSE 234 (*) CALCIUM 9.2 ANION GAP 10 eGFR 12.4 (*) TROPONIN, WITH SERIAL REFLEX - Normal TROPONIN I 0.032 Narrative: Patients with high levels of Biotin oral intake (ie >5 mg/day) may have falsely decreased Troponin levels. BASIC METABOLIC PANEL WITH MG REFLEX Narrative: The following orders were created for panel order Basic Metabolic Panel w/ Mg Reflex. Procedure Abnormality Status --------- ------ Basic metabolic panel[[id number]] Abnormal Final result Please view results for these tests on the individual orders. All other labs were within normal range or not returned as of this dictation. EMERGENCY DEPARTMENT COURSE and DIFFERENTIAL DIAGNOSIS/MDM: Vitals: Vitals: 05/26/24 0321 05/26/24 0344 05/26/24 0452 05/26/24 0532 BP: (!) 218/116 (!) 203/107 (!) 198/100 Pulse: 88 81 78 Resp: 18 18 18 Temp: 36.4 C (97.6 F) TempSrc: Oral SpO2: 97% 99% 98% Weight: 60.5 kg (133 lb 6.1 oz) 60.3 kg (133 lb) Height: 1.778 m (5' 10) Medications oxyCODONE-acetaminophen (Percocet) 5-325 MG per tablet 1 tablet (1 tablet Oral Given 05/26/24 0406) carvedilol (Coreg) tablet 3.125 mg (3.125 mg Oral Given 05/26/24 0517) 79-year-old male presented to the ED for hypertension. Patient with a history of hypertension on antihypertensive medications with a recent admission for this and ESRD on dialysis with recent short session. Additionally patient having pain issues from recent fall with known rib fractures. Blood pressure initially 218/116 otherwise vital signs stable, further exam as above. Blood pressure improving without intervention at this time. Will evaluate for endorgan damage. Patient home medication for hypertension his Coreg 3.125. Patient given medication for pain control for rib fractures. He deniesany further trauma or falls 30 seen and evaluated for this and admitted previously. Workup revealed troponin within normal range, CBC minimal leukocytosis 10.9 hemoglobin 12.3 trendedand better than baseline otherwise grossly unremarkable, BMP with elevated BUN and creatinine, trended and within patient's baseline with ESRD history, glucose elevated at 234 expressed unremarkable.EKG sinus without signs of acute ischemia no STEMI. On reevaluation blood pressure was 203/107 without intervention, home medication ordered. Blood pressure on repeat 198/100, acceptable for discharge. Patient asymptomatic. No evidence of endorgan damage. Suspect element of fluid overload in need of dialysis scheduled for today at noon and pain increasing blood pressure. No indication for further evaluation or admission at this time. Patient stable for discharge with supportive care, return precautions, outpatient follow-up. Patient in agreementwith plan. SCREENINGS [place] Coma Scale Best Eye Response: Spontaneous Best Verbal Response: Oriented Best Motor Response: Follows commands [place] Coma Scale Score: 15 PROCEDURES: Unless otherwise noted below, none Procedures CRITICAL CARE TIME FINAL IMPRESSION 1. Asymptomatic hypertension 2. Pain DISPOSITION Discharge 05/26/2024 05:49:26 AM PATIENT REFERRED TO: Sammy Luther APRN [facility] [address] [facility] [address] [facility] [address] DISCHARGE MEDICATIONS: New Prescriptions No medications on file (Comment: Please note this report has been produced using speech recognition software and may contain errors related to that system including errors in grammar, punctuation, and spelling, as well as words and phrases that may be inappropriate. If there are any questions or concerns please feel freeto contact the dictating provider for clarification.) Nerissa Dawn DO (electronically signed) Emergency Medicine Provider Nerissa Dawn DO 05/26/24 0628 [id number]10[facility]04[facility]2024 [facility] 05-08-2024 [facility]10-03-2024 [facility]10-03-2024 [id number]2024 [facility] 05-07-2024 [facility]10-02-2024 [facility]10-02-2024 [id number] [id number] [facility] 05-06-2024 [facility] [id number] [facility] [id number] [id number] [facility] [id number] History of Present illness Narrative* Abiola Meng RT(R) - 05/05/2024 4:20 AM EDT Radiology Service Progress Note PATIENT NAME: Jose John DATE OF SERVICE: May 05, 2024 TIME: 4:20 AM PATIENT IDENTITY VERIFICATION COMPLETED USING TWO (2) IDENTIFIERS: Name and Date of confirmedby patient verbally and Name and Date of confirmed by identification band. FALL SCREENING: Has the patient had 2 falls in the last year or 1 fall with injury or currently using an Ambulatory Assistive Device (Walker, Cane, Wheelchair, Crutches, etc.)? Emergency Room Patient: Screened in ED PATIENT GENDER DATA: Male PATIENT RELEVANT IMPLANT DATA REVIEWED: Yes PATIENT PRESENTS WITH AN IMPLANTABLE OR ATTACHED BULLET ASSEMBLY PRESS OPERATOR: No RADIOLOGY DEPARTMENT: CT; Exam(s) Completed: Brain and Spine PERIPHERAL IV DATA: Not applicable SIGNED BY: RT Oz(R) May 05, 2024 4:20 AM documented in this encounterOhiohealth Grove City [facility]09-29-2024 NoteHNO ID: [id number] Author: BRENDAN FORRESTER RN Service: Nursing Author Type: Registered Nurse Type: Nursing Progress Note Filed: 05/04/2024 20:38 Note Text: Hospitalist paged to inform of pt request for medication to help with nasal drainage.Protest[facility] [id number] MrbjZZLY-UCF-5 (AGENT OF COVID-19) RNA: Not detected INFLUENZA A RNA: Not detected INFLUENZA B RNA: Not detected RESPIRATORY SYNCYTIAL VIRUS (RSV) RNA: Not detectedProtestant HospitalComment on above:Performed By: #### [id number] ####[facility]ORATORYCLIA [id number] [place], [place] [id number] [place], [place] 8910408-31-2024 [facility]08-31-2024 NoteProtestant [id number] NoteProtestant [id number] Telephone encounter Note* Telephone Encounter - MALINA Rojo CNP - 03/18/2024 11:52 AM EDT Spoke with patient's daughter. Continues to have fluid retention issues, required another thoracentesis. He is very depressed - discussed getting PCP who can see patient in assisted living facility. Recommended they consider antidepressant. He does have MSI wound- she is changing dressing. Will see patient for wound check in office next week. [facility] [id number] Miscellaneous Notes* Telephone Encounter - MALINA Rojo CNP - 03/18/2024 11:52 AM EDT Spoke with patient's daughter. Continues to have fluid retention issues, required another thoracentesis. He is very depressed - discussed getting PCP who can see patient in assisted living facility. Recommended they consider antidepressant. He does have MSI wound- she is changing dressing. Will see patient for wound check in office next week. documented in this encounterSKettering Health [id number] [facility]08-07-2024 [facility]08-06-2024 NoteProtestant [id number] Miscellaneous Notes * Care Coordination - Unknown Case Management - 02/27/2024 4:25 PM EDT Patient Choice Patient Name: JOSE JOHN Date of : 1945 All Providers Sent Referral Name: [facility] Phone: [phone] Address: [address] [place] [id number] * Care Coordination - Lisbeth Acevedo RN - 02/27/2024 3:44 PM EDT Multiple conversations to day with Kristin from [facility] and Jamia MILLS from [facility]. They are able to accept pt today, need all dme to come with pt, nebulizer, glucometer, scripts for allmedications. Home care has been set up. Dialysis arranged- pt to start at [facility] 02/29/24 12:15pm. All dc paperwork faxed to [facility]. Family to pick patient up at 5pm. Ricky Paredes aware. * Care Coordination - MIKE Brennan - 02/27/2024 2:51 PM EDT Pt to be dc'd today to [facility] Al-Transportation set up with dtr Ashleigh who states they will have someone here to continuous pickling line pickler helper pt at 5pm. His family will come to [facility] [address] and would like for pt and any or all equipment to be brought down with the pt. TCC , Rn unit support representative aware and TCC Lisbeth to inform the facility of dc time. * Home Care - Amanda Claudio RN - 02/27/2024 1:46 PM EDT Start PACC Note Home Health Referral Educated patient, son Juan Manuel, and daughter Edelmira on Home Care and services available. Patient offeredchoice of available HHC and agreeable to SN/PT/OT services with [facility]. Care Types: None Isolation Precautions: No active isolations Social Determinates of Health: Tobacco Use: Medium Risk (02/12/2024) Patient History Smoking Tobacco Use: Former Smokeless Tobacco Use: Never Passive Exposure: Not on file Social History Substance and Sexual Activity Alcohol Use Not Currently Social History Substance and Sexual Activity Drug Use Not on file Does the patient have any financial resource strain? No Does the patient have any food insecurities? No Does the patient have any housing instabilities? No If any of the above is noted as yes - consider a CUSTOMER SPECIALIST evaluation once the patient returns home. START PATIENT REGISTRATION INFORMATION Order Information Order Signing Physician: Miguelangel Lopez, DO Service Ordered RN ?: Yes Service Ordered PT ?: Yes Service Ordered OT ?: Yes Service Ordered ST ?: No Service Ordered CUSTOMER SPECIALIST?:No Service Ordered JANITORIAL SUPERVISOR?: No Following Physician: OLENA GABRIEL Following Physician Overseeing Physician: OLENA GABRIEL (Required for Residents only) Agreeable to Follow? Yes Date/Time of Call 02/27/24 1:46 PM, Spoke with: Olena Gabriel via telephone Care Coordination Same Day SOC?: No Primary Care Physician: OLENA GABRIEL Primary Care Physician Primary Care Physician Address: [address] [place] [id number] Visit Instructions: N/A Service Discharge Location Type: Home with Home Health Care Service Facility Name: [facility] Floor Facility: unsure of room Service Room No: unsure of room Demographics Patient Last Name: Alek Patient First Name: Jose Language/Communication Barrier: none Service Address: [address] [place] [address] City: [facility] ST: [place] Service ZIP: [address] Service Other phone numbers: [phone] Emergency Contact: Extended Emergency Contact Information Primary Emergency Contact: Deepti John (POA) Mobile Relation: Spouse Secondary Emergency Contact: Juan Manuel John Mobile Relation: Son Preferred language: Romanian Pressing Machine Operator needed? No Admission Information Admit Date: 02/12/2024 Patient status at discharge: Inpatient Admitting Diagnosis: Pleural effusion [J90] Hypoxia [R09.02] Caregiver Information Caregiver First Name: Ashleigh Caregiver Last Name: Marisol Caregiver Relationship to Patient: daughter Caregiver Caregiver Notes: N/A Cinemat[employer]ECH [employer] List HIGHTECH: HI TECH - WOUND CARE Orders: Yes Wound following physician: OLENA GABRIEL Last time wound care completed?: day of discharge Supplies sent home?: Yes How many days are covered with supplies?: 5 Days Teachable Caregiver Teachable Caregiver First Name: Ashleigh Teachable Caregiver Last Name: Marisol Mcgregorable Caregiver Relationship to Patient: daughter Teachterrence Caregiver Teachable Caregiver Notes: N/A Teachable Caregiver available for SOC visit?: Yes Teachable Caregiver agreeable to provide skilled HITECH care per physician's orders?: Yes END PATIENT REGISTRATION INFORMATION Pt Home Health goal home COVID Status 1. Do you have any upper respiratory symptoms (cough, SOB, Fever)? No 2. Have you been exposed to anyone with COVID-19 Virus? No Answer only if pending or positive for COVID-19? 1. Agreeable to wear PPE at each visit? No 2. Is the hospital supplying them with PPE upon Discharge? No Start PACC Summary General Report/ Additional Comments Jose John is a 78 y.o. male with history of HTN, CAD s/p CABG, atrial fibrillation, T2DM, ESRD on HD who presented to ED from [facility] on 02/12/24 for acute hypoxic respiratory failure. Staff at rehab noted that he was hypoxic. He was placed on non-rebreather mask by EMS, and then transitioned to DC on arrival to hospital. CXR with pleural effusions, pulmonary vascular congestion. Nephrology consulted. Symptoms improved with fluid removal. Admitted for further evaluation and management. Obtained US-guided Left thoracentesis (02/15). S/p US-guided right thoracentesis (02/18) with drainage of 500 mL of clear yellow fluid. Now ZOFIA depended HD. Awaiting outpatient HD slot. Agreeable to SN/PT/OT with [facility]. Discharge Date: pending Referral Source-PACC: (Hospital/Unit): [facility] / W5-526/[id number] B End PACC Note * Care Plan - Dylan Seaman RN - 02/27/2024 10:09 AM EDT The patient is Moderately Stable - Low risk of patient condition declining or worsening The patient's goals for the shift include safety The clinical goals for the shift include monitor vital signs Over the shift, the patient did not make progress toward the following goals. Barriers to progression include education. Recommendations to address these barriers include reinforcement. * Significant Event - Cyndi Og RN - 02/27/2024 5:15 AM EDT Pt refused labs this morning, [facility] notified. * Home Care - Amanda Claudio RN - 02/26/2024 5:00 PM EDT Spoke with pt's son Juan Manuel, daughter Ashleigh, and tukzsslw-pw-fmv Sindy, this afternoon on the phone. They were choiced for [facility] or [facility] which is a [facility] that sees multple patients at [facility] and they chose [facility] for SN/PT/OT. Pt's daughter Ashleigh is agreeable to be TCG, is aware she needs to be at SOC visit and provided her phone number for [facility] scheduling. DME (FWW, BSC to use as toilet riser,and shower chair) was ordered at facility request and [facility] notified. Family agreeable to theapprox $22 cost of the shower chair which is not covered by Medicare. All questions answered at this time. Family referred back to [facility] if further questions arose relating to anything regarding discharge date/time or anything else not related to home care services. * Care Coordination - MIKE Guevara - 02/26/2024 3:52 PM EDT BECKY spoke with Jamia this am to try and coordinate admission to [facility]. Verbal update provided to Jamia and updated notes fax'd to facility. BECKY updated TCC. Per [facility] liaison, facility did not receive fax. BECKY re-faxed info to [facility] BECKY spoke with Kristin from [facility] this afternoon. Confirmed with her HHC being arranged and DME, o2/nebulizer, FWW, shower chair and BSC being ordered. Kristin aware pt is ready for dc and feels she can be prepared for pt after 2 pm pending equipment delivery. Kristin confirmed fax was received earlier today and she had it and would give Jamia a copy. Kristin states pt will be going to [place] side of facility. Kristin asked about meds. States meds will need to be sent to them prior so they can order them or pt can do meds to bed. BECKY confirmed with Kristin that facility will transport to dialysis. BECKY informed her that [facility] was location [facility] is working on. Kristin states she will be the contact going forward. BECKY updated TCC and [facility] laision. * Care Coordination - Lisbeth Acevedo RN - 02/26/2024 12:39 PM EDT Spoke with son Juan Manuel, updated him that [facility] cannot accept. Pt walked 250+ feet, does notmeet Medicare guidelines. Plan is for [facility] with home care. Juan Manuel is agreeable, states [facility] plans to do an onsite today at 3pm to sign papers with pt. SW speaking with AL. [facility] spoke with Yessica reynolds, Yessica updated again on the need to have dialysis at the [facility]. Requested start date of 02/28. Requested M/W/F chair time to assist with transport needs from AL. Talked to sales and in home delivery specialist, requested home care speak with Jamia from [facility] [phone] to confirm home care needs and equipment delivery. At this time we are awaiting dialysis set up confirmation, AL set up completion, home care set up completion. * Care Coordination - MIKE Guevara - 02/26/2024 12:29 PM EDT BECKY spoke with Jamia at [facility]. She is requesting HHC and DME prior to dc and would like to speak with HHC. BECKY asked Jamia to check on dialysis transport. BECKY fax'd updated notes to Jamia. BECKY updated TCC and asked [facility] to call facility. * Care Coordination - Roxann Causey - 02/26/2024 8:55 AM EDT Updated notes placed to [facility] per TCC request. Await review and response regarding ability to accept. TCC notified. * Care Coordination - Lisbeth Acevedo RN - 02/26/2024 8:51 AM EDT Updated notes tasked to be sent to [facility], request they review pt chart again. Spoke withmayda at bedside yesterday and son Juan Manuel on phone, they are both agreeable to SNF before going to [place]. * Care Plan - Bruno Coombs RN - 02/26/2024 12:36 AM EDT Problem: Knowledge Deficit Goal: Patient/family/caregiver demonstrates understanding of disease process, treatment plan, medications, and discharge instructions Outcome: Progressing Problem: Potential for Compromised Skin Integrity Goal: Skin Integrity is Maintained or Improved Outcome: Progressing Goal: Nutritional status is improving Outcome: Progressing Problem: Urinary Incontinence Goal: Perineal skin integrity is maintained or improved Outcome: Progressing Problem: Pain - Adult Goal: Verbalizes/displays adequate comfort level or baseline comfort level Outcome: Progressing Problem: Safety - Adult Goal: Free from fall injury Outcome: Progressing Problem: Discharge Planning Goal: Discharge to home or other facility with appropriate resources Outcome: Progressing Problem: Chronic Conditions and Co-morbidities Goal: Patient's chronic conditions and co-morbidity symptoms are monitored and maintained or improved Outcome: Progressing Problem: Hemodynamic Status Goal: Patient's vitals signs are stable Outcome: Progressing Problem: Excessive Fluid Volume Goal: Fluid and electrolyte balance are achieved/maintained Outcome: Progressing Problem: Inadequate Gas Exchange Goal: Nutritional status is improving Outcome: Progressing Goal: Patient is adequately oxygenated and ventilation is improved Outcome: Progressing Problem: Activity Intolerance/Impaired Mobility Goal: Mobility/activity is maintained at optimum level for patient Outcome: Progressing Problem: Nutrition Goal: Nutritional status is improving Outcome: Progressing Problem: Problem Interventions Goal: Assess Nutritional Intake Outcome: Progressing * Care Coordination - Lisbeth Acevedo RN - 02/25/2024 1:32 PM EDT Discussed pt with SW. AL has assessed pt and feels he would benefit from SNF/Rehab prior to admission there. Updated therapy notes requested. [facility] * Care Coordination - MEGAN Harkins - 02/25/2024 11:41 AM EDT SW coverage for today. Spoke with Jackie at [facility] [phone]. She indicates that they have done their assessment on pt. She feels that pt would benefit from a short stay at aSNF/Rehab prior to being admitted to [facility] due to his current weakness. She recommends that PT/OT see pt again and pt be re-assessed for short stay. She will accept pt if SNF/rehab decline pt, but she would like to see if pt could be accepted to SNF/rehab. Jackie indicates that family is aware of cost of [facility]. Pt's and his [id number]-[id number] are currently residents at [facility]. Discussed with TCC. Awaiting updated PT/OT notes for today and then will see if pt is eligible for SNF/rehab. If pt is declined by SNF/rehab, then outpatient dialysis will need to be arranged as well. SW continuing to follow. * Care Coordination - Lisbeth Acevedo RN - 02/25/2024 11:34 AM EDT Updated PT/OT notes requested for DC planning. t 11:34 AM * Care Plan - Taya Dietrich RN - 02/23/2024 1:46 AM EDT The patient is Moderately Stable - Low risk of patient condition declining or worsening The patient's goals for the shift include get rest The clinical goals for the shift include maintain safety Problem: Knowledge Deficit Goal: Patient/family/caregiver demonstrates understanding of disease process, treatment plan, medications, and discharge instructions Outcome: Progressing Problem: Potential for Compromised Skin Integrity Goal: Skin Integrity is Maintained or Improved Outcome: Progressing Problem: Potential for Compromised Skin Integrity Goal: Nutritional status is improving Outcome: Progressing Problem: Potential for Compromised Skin Integrity Goal: Nutritional status is improving Outcome: Progressing Problem: Urinary Incontinence Goal: Perineal skin integrity is maintained or improved Outcome: Progressing Problem: Pain - Adult Goal: Verbalizes/displays adequate comfort level or baseline comfort level Outcome: Progressing Problem: Safety - Adult Goal: Free from fall injury Outcome: Progressing Problem: Discharge Planning Goal: Discharge to home or other facility with appropriate resources Outcome: Progressing Problem: Chronic Conditions and Co-morbidities Goal: Patient's chronic conditions and co-morbidity symptoms are monitored and maintained or improved Outcome: Progressing Problem: Hemodynamic Status Goal: Patient's vitals signs are stable Outcome: Progressing * Care Plan - Dolly Barker RN - 02/22/2024 4:11 PM EDT The patient is Moderately Stable - Low risk of patient condition declining or worsening The patient's goals for the shift include to feel better The clinical goals for the shift include to maintain fluid restriction Problem: Knowledge Deficit Goal: Patient/family/caregiver demonstrates understanding of disease process, treatment plan, medications, and discharge instructions Outcome: Progressing Problem: Potential for Compromised Skin Integrity Goal: Skin Integrity is Maintained or Improved Outcome: Progressing Problem: Urinary Incontinence Goal: Perineal skin integrity is maintained or improved Outcome: Progressing * Care Coordination - MIKE Guevara - 02/22/2024 3:02 PM EDT SW called [facility] to confirm if they received fax. Admissions person is off for family emergency. They were able to verify that someone is planning to come in and do an assessment on pt. SW following. * Care Coordination - MIKE Guevara - 02/22/2024 12:59 PM EDT BECKY fax'd referral to [facility] [place]- [phone] * Care Coordination - Lisbeth Acevedo RN - 02/22/2024 12:17 PM EDT Spoke with son Juan Manuel. He states he has been speaking with Jackie from [facility], states plan now for pt to admit to [facility] for a short time when dc from hospital. Call placed to Jackie, she is not available. Message left requesting return call. Spoke with Viviana from [facility]. She states that [facility] placed a referral to their outpatient dialysis center 02/03. Discussed that at this time plan is likely not for pt to return home. If pt goes to [facility] need dialysis set up in [place]. Viviana will update staff and can forward referral to [place] location once dc plan finalized. * Care Plan - Taya Dietrich RN - 02/22/2024 1:59 AM EDT The patient is Moderately Stable - Low risk of patient condition declining or worsening The patient's goals for the shift include get adequate rest The clinical goals for the shift include safety Problem: Knowledge Deficit Goal: Patient/family/caregiver demonstrates understanding of disease process, treatment plan, medications, and discharge instructions Outcome: Progressing Problem: Potential for Compromised Skin Integrity Goal: Skin Integrity is Maintained or Improved Outcome: Progressing Problem: Potential for Compromised Skin Integrity Goal: Nutritional status is improving Outcome: Progressing Problem: Urinary Incontinence Goal: Perineal skin integrity is maintained or improved Outcome: Progressing Problem: Pain - Adult Goal: Verbalizes/displays adequate comfort level or baseline comfort level Outcome: Progressing Problem: Discharge Planning Goal: Discharge to home or other facility with appropriate resources Outcome: Progressing Problem: Chronic Conditions and Co-morbidities Goal: Patient's chronic conditions and co-morbidity symptoms are monitored and maintained or improved Outcome: Progressing Problem: Hemodynamic Status Goal: Patient's vitals signs are stable Outcome: Progressing Problem: Problem Interventions Goal: Assess Nutritional Intake Outcome: Progressing Problem: Nutrition Goal: Nutritional status is improving Outcome: Progressing Problem: Activity Intolerance/Impaired Mobility Goal: Mobility/activity is maintained at optimum level for patient Outcome: Progressing Problem: Inadequate Gas Exchange Goal: Patient is adequately oxygenated and ventilation is improved Outcome: Progressing Problem: Inadequate Gas Exchange Goal: Nutritional status is improving Outcome: Progressing Problem: Excessive Fluid Volume Goal: Fluid and electrolyte balance are achieved/maintained Outcome: Progressing * Care Coordination - Lisbeth Acevedo RN - 02/21/2024 2:21 PM EDT Received return call from Juan Manuel. Discussed pt medically ready to dc. Discuss DC timeline with need to set up dialysis at dc. Juan Manuel will discuss all options with family and speak with tcc around 11am tomorrow with decision. * Care Coordination - Lisbeth Acevedo RN - 02/21/2024 1:48 PM EDT Spoke with daughter Ashleigh, updated her that [facility] reviewing but asking questions about length pt can walk and skilled needs. She again states she does not feel pt would be safe to return home. Discussed possible option of privately paying she states family cannot afford this. Discussed option of pt moving in with family, she state this will not work as family all work. She requests tccdiscuss with her brother Juan Manuel and Dr. Landry give him update. Then received update from [facility] that they cannot accept they state The attached information does not meet a SNF level of care per medicare guidelines, so we cannot accept. Most current clinicals and therapy notes have been sent. Dr Landry and TCC spoke with Juan Manuel. Dr. Landry updated that pt is medically ready to dc. TCC discussed with Juan Manuel that plans will need to be made for pt to return to his home or return home with family vs snf. If pt returns home will need dialysis set up. Juan Manuel verbalizes understanding but states none of these options will work as family not available to care for patient. Need for safe dc plan reiterated, Juan Manuel states he cannot continue the conversation as he was going into a meeting but will speak with family and call back when able. * Care Coordination - Roxann Causey - 02/21/2024 12:38 PM EDT Updated note placed to [facility] - [facility] via [facility] per TCC request. Await review and response regarding ability to accept. TCC notified. * Care Coordination - Lisbeth Acevedo RN - 02/21/2024 11:47 AM EDT Spoke with [facility] liaison, pt remains too functional with therapy to return to [facility]. [facility] reviewing. * Care Coordination - Roxann Causey - 02/21/2024 10:54 AM EDT Referral placed to [facility] - [facility] via [facility] per TCC request. Await review and response regarding ability to accept. TCC notified. * Care Coordination - Lisbeth Acevedo RN - 02/21/2024 10:44 AM EDT Family responded via [facility] with snf choice of [facility], referral tasked to be placed in [facility]. Today's PT note reviewed, change of recommendation noted. Discussed with [facility] liaison, theywill review chart and determine if pt now qualifies to return to [facility]. * Care Coordination - Lisbeth Acevedo RN - 02/21/2024 9:02 AM EDT Updated therapy notes requested for snf placement. * Care Plan - Madison Laguna RN - 02/20/2024 10:19 PM EDT The patient is Moderately Stable - Low risk of patient condition declining or worsening The patient's goals for the shift include The clinical goals for the shift include Over the shift, the patient did not make progress toward the following goals. Barriers to progression include Problem: Knowledge Deficit Goal: Patient/family/caregiver demonstrates understanding of disease process, treatment plan, medications, and discharge instructions Outcome: Progressing Problem: Potential for Compromised Skin Integrity Goal: Skin Integrity is Maintained or Improved Outcome: Progressing Goal: Nutritional status is improving Outcome: Progressing . Recommendations to address these barriers include . * Care Coordination - Lisbeth Acevedo RN - 02/20/2024 12:41 PM EDT Spoke with son Juan Manuel on the phone about dc planning. Juan Manuel states pt with decline [facility], states pt has been there before and did not like the care there. Juan Manuel would like a snf in the [facility] if possible that provides on site dialysis. SNF list emailed to [email or web address] and [email or web address] per their request. * Care Plan - Cherelle Johnson RN - 02/20/2024 1:23 AM EDT The patient is Moderately Stable - Low risk of patient condition declining or worsening The patient's goals for the shift include getting sleep The clinical goals for the shift include remain free from falls Problem: Knowledge Deficit Goal: Patient/family/caregiver demonstrates understanding of disease process, treatment plan, medications, and discharge instructions Outcome: Progressing Problem: Potential for Compromised Skin Integrity Goal: Skin Integrity is Maintained or Improved Outcome: Progressing Goal: Nutritional status is improving Outcome: Progressing Problem: Urinary Incontinence Goal: Perineal skin integrity is maintained or improved Outcome: Progressing Problem: Pain - Adult Goal: Verbalizes/displays adequate comfort level or baseline comfort level Outcome: Progressing Problem: Safety - Adult Goal: Free from fall injury Outcome: Progressing Problem: Discharge Planning Goal: Discharge to home or other facility with appropriate resources Outcome: Progressing Problem: Chronic Conditions and Co-morbidities Goal: Patient's chronic conditions and co-morbidity symptoms are monitored and maintained or improved Outcome: Progressing Problem: Hemodynamic Status Goal: Patient's vitals signs are stable Outcome: Progressing Problem: Excessive Fluid Volume Goal: Fluid and electrolyte balance are achieved/maintained Outcome: Progressing Problem: Inadequate Gas Exchange Goal: Nutritional status is improving Outcome: Progressing Goal: Patient is adequately oxygenated and ventilation is improved Outcome: Progressing Problem: Activity Intolerance/Impaired Mobility Goal: Mobility/activity is maintained at optimum level for patient Outcome: Progressing Problem: Nutrition Goal: Nutritional status is improving Outcome: Progressing Problem: Problem Interventions Goal: Assess Nutritional Intake Outcome: Progressing * Care Coordination - Lisbeth Acevedo RN - 02/19/2024 3:38 PM EDT Received update from [facility], pt now too functional to return, walked 250 feet as a modified independent. Pt expresses surprise, uncertain about dc plan at this time. Ok to speak with daughter Ashleigh. Call placed to Ashleigh, she also expresses surprise and concern about pt returning home. Ashleigh feels pt not yet ready to return home. Pt is new dialysis, needs frequent thoracentesis. Nephrology NPexpresses concerns about pt's readiness to return home. Confirmed with [facility] that pt cannot return. Per liaison, biomedical equipment technician has denied his return. Requested [facility] review [facility]'s chart- pt does meet criteria for [facility] if family/pt agreeable. Placed call to Ashleigh to discuss, VM left request ing return call. DC options at this time- home with hhc vs possible snf placement if pt qualifies vs [facility]. * Home Care - Amanda Claudio RN - 02/19/2024 2:00 PM EDT Late entry; Attempted to speak to patient/family regarding home care on 02/18, but stopped by TCC who stated thept/family was notifiied that pt was now deemed to functional to return to [facility] as he wanted, and weren't sure what the discharge plan was going to be. This HCL instructed by TCC to hold off talking topatient or family until dc plan was definitively decided. Film Splicer following case for Discharge Needs. * Care Plan - Cherelle Johnson RN - 02/19/2024 1:49 AM EDT The patient is Moderately Stable - Low risk of patient condition declining or worsening The patient's goals for the shift include pt will get rest The clinical goals for the shift include pt will remain free of dyspnea at rest Problem: Knowledge Deficit Goal: Patient/family/caregiver demonstrates understanding of disease process, treatment plan, medications, and discharge instructions Outcome: Progressing Problem: Potential for Compromised Skin Integrity Goal: Skin Integrity is Maintained or Improved Outcome: Progressing Goal: Nutritional status is improving Outcome: Progressing Problem: Urinary Incontinence Goal: Perineal skin integrity is maintained or improved Outcome: Progressing Problem: Pain - Adult Goal: Verbalizes/displays adequate comfort level or baseline comfort level Outcome: Progressing Problem: Safety - Adult Goal: Free from fall injury Outcome: Progressing Problem: Discharge Planning Goal: Discharge to home or other facility with appropriate resources Outcome: Progressing Problem: Chronic Conditions and Co-morbidities Goal: Patient's chronic conditions and co-morbidity symptoms are monitored and maintained or improved Outcome: Progressing Problem: Hemodynamic Status Goal: Patient's vitals signs are stable Outcome: Progressing Problem: Excessive Fluid Volume Goal: Fluid and electrolyte balance are achieved/maintained Outcome: Progressing Problem: Inadequate Gas Exchange Goal: Nutritional status is improving Outcome: Progressing Goal: Patient is adequately oxygenated and ventilation is improved Outcome: Progressing Problem: Activity Intolerance/Impaired Mobility Goal: Mobility/activity is maintained at optimum level for patient Outcome: Progressing Problem: Nutrition Goal: Nutritional status is improving Outcome: Progressing Problem: Problem Interventions Goal: Assess Nutritional Intake Outcome: Progressing * Care Coordination - MIKE Guevara - 02/18/2024 2:45 PM EDT SW has attempted multi times to meet with pt about DPOA. Pt OOR. SW spoke with dtr. She has POA forms from the criminal defense attorney. Explained SW can only witness hospital DPOA. Informed dtr she can bring in her own notary or SW can follow up in am with pt and complete hospital forms. * Care Coordination - Lisbeth Acevedo RN - 02/18/2024 11:19 AM EDT Updated PT/OT notes requested for dc planning. t 11:20 AM * Care Plan - Britney Marti RN - 02/17/2024 9:20 PM EDT Problem: Knowledge Deficit Goal: Patient/family/caregiver demonstrates understanding of disease process, treatment plan, medications, and discharge instructions Outcome: Progressing Problem: Potential for Compromised Skin Integrity Goal: Skin Integrity is Maintained or Improved Outcome: Progressing Goal: Nutritional status is improving Outcome: Progressing Problem: Urinary Incontinence Goal: Perineal skin integrity is maintained or improved Outcome: Progressing Problem: Pain - Adult Goal: Verbalizes/displays adequate comfort level or baseline comfort level Outcome: Progressing Problem: Safety - Adult Goal: Free from fall injury Outcome: Progressing Problem: Discharge Planning Goal: Discharge to home or other facility with appropriate resources Outcome: Progressing Problem: Chronic Conditions and Co-morbidities Goal: Patient's chronic conditions and co-morbidity symptoms are monitored and maintained or improved Outcome: Progressing Problem: Hemodynamic Status Goal: Patient's vitals signs are stable Outcome: Progressing Problem: Excessive Fluid Volume Goal: Fluid and electrolyte balance are achieved/maintained Outcome: Progressing Problem: Inadequate Gas Exchange Goal: Nutritional status is improving Outcome: Progressing Goal: Patient is adequately oxygenated and ventilation is improved Outcome: Progressing Problem: Activity Intolerance/Impaired Mobility Goal: Mobility/activity is maintained at optimum level for patient Outcome: Progressing Problem: Nutrition Goal: Nutritional status is improving Outcome: Progressing Problem: Problem Interventions Goal: Assess Nutritional Intake Outcome: Progressing The patient is Moderately Stable - Low risk of patient condition declining or worsening The patient's goals for the shift include safety The clinical goals for the shift include safety * Care Plan - Dana Coffey RN - 02/17/2024 10:17 AM EDT The patient is Moderately Stable - Low risk of patient condition declining or worsening * Care Plan - Jose Murrell RN - 02/17/2024 12:51 AM EDT Problem: Knowledge Deficit Goal: Patient/family/caregiver demonstrates understanding of disease process, treatment plan, medications, and discharge instructions Outcome: Progressing Flowsheets (Taken 02/17/202450) Patient/family/caregiver demonstrates understanding of disease process, treatment plan, medications, and discharge instructions: Provide teaching at level of understanding Problem: Potential for Compromised Skin Integrity Goal: Skin Integrity is Maintained or Improved Outcome: Progressing Flowsheets (Taken 02/16/20243) Skin integrity is maintained or improved: Assess and monitor skin integrity Collaborate with interdisciplinary team and initiate plans and interventions as needed Keep skin clean and dry Avoid shearing Problem: Pain - Adult Goal: Verbalizes/displays adequate comfort level or baseline comfort level Outcome: Progressing Flowsheets (Taken 02/16/20243) Verbalizes/displays adequate comfort level or baseline comfort level: Encourage patient to monitor pain and request assistance Assess pain using appropriate pain scale Problem: Hemodynamic Status Goal: Patient's vitals signs are stable Outcome: Progressing Flowsheets (Taken 02/17/202450) Patient's vital signs are stable: Assess and monitor patient's heart rate, rhythm, respiratory rate, peripheral pulses, capillary refill, color, body temperature, intake and output, labs and physical activity tolerance Observe for signs of chest pain (note location, duration, severity, radiation and associated symptoms such as diaphoresis, nausea, indigestion) Monitor for signs and symptoms of heart failure (e.g. shortness of breath, edema of feet/ankles/legs, rapid irregular heart rate, coughing, wheezing, white/pink blood tinged sputum, sudden weight gain, chest pain) Monitor fluid intake Plan activities to conserve energy * Care Plan - Jose Murrell RN - 02/16/2024 12:04 AM EDT Problem: Knowledge Deficit Goal: Patient/family/caregiver demonstrates understanding of disease process, treatment plan, medications, and discharge instructions Outcome: Progressing Flowsheets (Taken 02/16/2024 0004) Patient/family/caregiver demonstrates understanding of disease process, treatment plan, medications, and discharge instructions: Provide teaching at level of understanding Problem: Potential for Compromised Skin Integrity Goal: Skin Integrity is Maintained or Improved Outcome: Progressing Flowsheets (Taken 02/16/2024 0004) Skin integrity is maintained or improved: Assess and monitor skin integrity Collaborate with interdisciplinary team and initiate plans and interventions as needed Keep skin clean and dry Avoid shearing Problem: Pain - Adult Goal: Verbalizes/displays adequate comfort level or baseline comfort level Outcome: Progressing Flowsheets (Taken 02/16/2024 0004) Verbalizes/displays adequate comfort level or baseline comfort level: Encourage patient to monitor pain and request assistance Assess pain using appropriate pain scale Problem: Safety - Adult Goal: Free from fall injury Outcome: Progressing * Care Coordination - Lisbeth Acevedo RN - 02/15/2024 3:47 PM EDT Pt remains on 9L. CT surgery following, recommend thoracentesis, echocardiogram ordered. Pt transferred from [facility], plans to return to continue rehab once medically ready. TCC following. Electronicallysigned by Lisbeth Acevedo RN on 02/15/2024 at 3:49 PM * Care Coordination - Roxann Causey - 02/15/2024 10:57 AM EDT Return referral placed to Inpatient Rehab - [facility] via [facility] per TCC request. Await review and response regarding ability to accept. TCC notified. * Care Plan - Britney Marti RN - 02/14/2024 9:51 PM EDT Problem: Knowledge Deficit Goal: Patient/family/caregiver demonstrates understanding of disease process, treatment plan, medications, and discharge instructions Outcome: Progressing Problem: Potential for Compromised Skin Integrity Goal: Skin Integrity is Maintained or Improved Outcome: Progressing Goal: Nutritional status is improving Outcome: Progressing Problem: Urinary Incontinence Goal: Perineal skin integrity is maintained or improved Outcome: Progressing Problem: Pain - Adult Goal: Verbalizes/displays adequate comfort level or baseline comfort level Outcome: Progressing Problem: Safety - Adult Goal: Free from fall injury Outcome: Progressing Problem: Discharge Planning Goal: Discharge to home or other facility with appropriate resources Outcome: Progressing Problem: Chronic Conditions and Co-morbidities Goal: Patient's chronic conditions and co-morbidity symptoms are monitored and maintained or improved Outcome: Progressing Problem: Hemodynamic Status Goal: Patient's vitals signs are stable Outcome: Progressing Problem: Excessive Fluid Volume Goal: Fluid and electrolyte balance are achieved/maintained Outcome: Progressing Problem: Inadequate Gas Exchange Goal: Nutritional status is improving Outcome: Progressing Goal: Patient is adequately oxygenated and ventilation is improved Outcome: Progressing Problem: Activity Intolerance/Impaired Mobility Goal: Mobility/activity is maintained at optimum level for patient Outcome: Progressing Problem: Nutrition Goal: Nutritional status is improving Outcome: Progressing The patient is Moderately Stable - Low risk of patient condition declining or worsening The patient's goals for the shift include safety The clinical goals for the shift include safety * Care Coordination - Lisbeth Acevedo RN - 02/14/2024 3:30 PM EDT Care Managment Initial Assessment Date: 02/15/2024 Patient Name: Jose John : 1945 Patient Information Source of Information: Patient Cognition/Language: WFL - Within Functional Limits Permission given to speak with patient unit support representative/caregiver as indicated: Yes Confirmation of Payer with patient/family: Yes Payer Name: Medicare A/B : No Confirmation of Primary Care Physician: Confirmed PCP Name: Dr Gabriel Seen in last 2 years?: Yes Primary Caregiver: Other (Comment) If assistance needed, confirmed caregiver ready, willing and able to care for patient at discharge: Confirmed with: Living Arrangements Current Residence: House Number of Floors 1 Number of Entry Steps: 2 Bed/Bath Levels: Facility: Inpatient Rehab Facility Facility Name: [facility] Plan to Return: Yes Lives with: Spouse/significant other Support Systems: Children, Spouse/significant other Activities of Daily Living Ambulation: Assistance Bathing/Dressing: Assistance Elimination/Continence/Toileting: Assistance Feeding: Assistance Who Assists with Activities of Daily Living: Instrumental Activities of Daily Living Prescription Coverage: No Pharmacy Used: Medication Management: Medication dispenser Who assists with medication securing and setup?: [facility] Transportation/Shopping: Transportation Mode: Needs Assistance with Transportation at Discharge: Yes Meal Preparation: Laundry/Cleaning: Finances/Bill Paying: Communication: Independent Types of Care Services/Equipment Utilized Care Services: Dialysis Type: Durable Medical Equipment: Patient's Goal/Discharge Plan [facility] Discharge Planning Actions: Continue to follow Patient's Choice Rights and [employer] and Collaborative Relationships Disclosed as Indicated for Post-Acute Care: Interdisciplinary Team Engagement: Disease Management Program, PT/OT, Palliative Care, Acute Rehab Social Work Referral for: Additional Information: Met with pt at bedside at bedside, introduced self and explained role. Pt came from [facility] with respiratory failure, hypoxia. At baseline pt from home with his . Pt would like to return to [facility] [place] to continue rehab. Return referral tasked to be placed in [facility]port. TCC following for dc planning. Lisbeth Acevedo RN * Care Coordination - MIKE Guevara - 02/14/2024 2:00 PM EDT SW left message with pt's dtrAshleigh. * Care Plan - Mackenzie Stevens RN - 02/14/2024 1:16 PM EDT The patient is Moderately Stable - Low risk of patient condition declining or worsening Problem: Knowledge Deficit Goal: Patient/family/caregiver demonstrates understanding of disease process, treatment plan, medications, and discharge instructions Outcome: Progressing Problem: Potential for Compromised Skin Integrity Goal: Skin Integrity is Maintained or Improved Outcome: Progressing Goal: Nutritional status is improving Outcome: Progressing Problem: Urinary Incontinence Goal: Perineal skin integrity is maintained or improved Outcome: Progressing Problem: Pain - Adult Goal: Verbalizes/displays adequate comfort level or baseline comfort level Outcome: Progressing Problem: Safety - Adult Goal: Free from fall injury Outcome: Progressing Problem: Discharge Planning Goal: Discharge to home or other facility with appropriate resources Outcome: Progressing Problem: Chronic Conditions and Co-morbidities Goal: Patient's chronic conditions and co-morbidity symptoms are monitored and maintained or improved Outcome: Progressing Problem: Hemodynamic Status Goal: Patient's vitals signs are stable Outcome: Progressing Problem: Excessive Fluid Volume Goal: Fluid and electrolyte balance are achieved/maintained Outcome: Progressing Problem: Inadequate Gas Exchange Goal: Nutritional status is improving Outcome: Progressing Goal: Patient is adequately oxygenated and ventilation is improved Outcome: Progressing Problem: Activity Intolerance/Impaired Mobility Goal: Mobility/activity is maintained at optimum level for patient Outcome: Progressing Problem: Nutrition Goal: Nutritional status is improving Outcome: Progressing * Care Plan - Britney Marti RN - 02/13/2024 9:05 PM EDT Problem: Knowledge Deficit Goal: Patient/family/caregiver demonstrates understanding of disease process, treatment plan, medications, and discharge instructions Outcome: Progressing Problem: Potential for Compromised Skin Integrity Goal: Skin Integrity is Maintained or Improved Outcome: Progressing Goal: Nutritional status is improving Outcome: Progressing Problem: Urinary Incontinence Goal: Perineal skin integrity is maintained or improved Outcome: Progressing Problem: Pain - Adult Goal: Verbalizes/displays adequate comfort level or baseline comfort level Outcome: Progressing Problem: Safety - Adult Goal: Free from fall injury Outcome: Progressing Problem: Discharge Planning Goal: Discharge to home or other facility with appropriate resources Outcome: Progressing Problem: Chronic Conditions and Co-morbidities Goal: Patient's chronic conditions and co-morbidity symptoms are monitored and maintained or improved Outcome: Progressing Problem: Hemodynamic Status Goal: Patient's vitals signs are stable Outcome: Progressing Problem: Excessive Fluid Volume Goal: Fluid and electrolyte balance are achieved/maintained Outcome: Progressing Problem: Inadequate Gas Exchange Goal: Nutritional status is improving Outcome: Progressing Goal: Patient is adequately oxygenated and ventilation is improved Outcome: Progressing Problem: Activity Intolerance/Impaired Mobility Goal: Mobility/activity is maintained at optimum level for patient Outcome: Progressing Problem: Nutrition Goal: Nutritional status is improving Outcome: Progressing The patient is Moderately Stable - Low risk of patient condition declining or worsening The patient's goals for the shift include safety The clinical goals for the shift include safety * Rapid Response Note - Lisbeth More RN - 02/13/2024 12:04 AM EDT Called to see patient for new onset confusion, combativeness . Patient just came up to 5W from ED, stood and pivoted to the bed, was A&Ox4 upon admission to unit. Upon our arrival, patient resting with eyes closed, opened eyes to name, became combative, telling us to go away, speech clear, moving all extremities, not able to tell us where he is or answer any of the orientation questions. Patient on 9LHFNC currently. Resp even and unlabored. Dialysis today, removed 3L. Other VSS. Abg drawn and sent to lab. RN notified the L[facility] IRBY . Neurontin given at 2010, Melatonin given at 2010, Remerongiven at 2010. Mbs 217. Sats 96% . After about 15 min , patient coming around a little, knows year,says he feels a little fuzzy still. Per review of notes from last hospital stay, patient has hx of night time confusion and paranoia- which is why he is on the seroquel. Patient is more calm, laughing currently. Awaiting abg results. LAVINIA IRBY to see when able . Continue to monitor. * Care Plan - Britney Marti RN - 02/12/2024 8:12 PM EDT Problem: Knowledge Deficit Goal: Patient/family/caregiver demonstrates understanding of disease process, treatment plan, medications, and discharge instructions Outcome: Progressing Problem: Potential for Compromised Skin Integrity Goal: Skin Integrity is Maintained or Improved Outcome: Progressing Goal: Nutritional status is improving Outcome: Progressing Problem: Urinary Incontinence Goal: Perineal skin integrity is maintained or improved Outcome: Progressing Problem: Pain - Adult Goal: Verbalizes/displays adequate comfort level or baseline comfort level Outcome: Progressing Problem: Safety - Adult Goal: Free from fall injury Outcome: Progressing Problem: Discharge Planning Goal: Discharge to home or other facility with appropriate resources Outcome: Progressing Problem: Chronic Conditions and Co-morbidities Goal: Patient's chronic conditions and co-morbidity symptoms are monitored and maintained or improved Outcome: Progressing Problem: Hemodynamic Status Goal: Patient's vitals signs are stable Outcome: Progressing Problem: Excessive Fluid Volume Goal: Fluid and electrolyte balance are achieved/maintained Outcome: Progressing Problem: Inadequate Gas Exchange Goal: Nutritional status is improving Outcome: Progressing Goal: Patient is adequately oxygenated and ventilation is improved Outcome: Progressing Problem: Activity Intolerance/Impaired Mobility Goal: Mobility/activity is maintained at optimum level for patient Outcome: Progressing Problem: Nutrition Goal: Nutritional status is improving Outcome: Progressing The patient is Moderately Stable - Low risk of patient condition declining or worsening The patient's goals for the shift include safety The clinical goals for the shift include safety documented in this [facility]07-24-2024 History of Present illness Narrative* Dora Madden APRN - [facility] - 02/27/2024 4:04 PM EDT Images from the original note were not included. Cardiothoracic Surgery Interval Note PATIENT NAME: Jose John : 1945 (78 y.o.) TODAY'S DATE: 02/27/2024 Interval History: - patient seen at bedside and discussed discharge plan. Planning for d/c today to [facility]. - Will follow up with patient in 2 weeks to schedule in office visit. * Sally Abreu RRT - 02/27/2024 3:54 PM EDT Images from the original note were not included. [id number]] Respiratory Therapy Home O2 Progress Note O2 saturation at rest on room air: 92% (If resting saturation was 88% or less, enter NA for the next two values) O2 saturation with exertion on room air: 91% (NA if not evaluated) O2 saturation on O2 at LPM with exertion: % (NA if not evaluated) Patient meets criteria for home O2 Y/N = N Patient mobile at home Y/N = Y DME Notified N * Miguelangel Lopez DO - 02/27/2024 1:50 PM EDT Hospitalist Progress Note 02/27/2024 Subjective: Admit Date: 02/12/2024 PCP: OLENA GABRIEL Room#: [id number] B BRIEF HOSPITAL COURSE: Jose John is a 78 y.o. male with history of HTN, CAD s/p CABG, atrial fibrillation, T2DM, ESRD on HD who [facility] for acute hypoxic respiratory failure. Staff at rehab noted that he was hypoxic. He was placed on non-rebreather mask by EMS, and then transitioned to DC on arrival to hospital. CXR with pleural effusions, pulmonary vascular congestion. Nephrology consulted. Symptoms improved with fluid removal. Admitted for further evaluation and management. Obtained US-guided Left thoracentesis (02/15). S/p US-guided right thoracentesis (02/18) with drainage of 500 mL of clear yellow fluid. Now ZOFIA depended HD. Awaiting outpatient HD slot. Interval History: Seen at bedside. On NC. Ready for DC. Waiting on designated time for HD in [place] Adult diet Regular; Low Sodium (2 gm); 2000 ml 24HR INTAKE/OUTPUT: Intake/Output Summary (Last 24 hours) at 02/27/2024 1350 Last data filed at 02/27/2024 1129 Gross per 24 hour Intake 990 ml Output -- Net 990 ml Past Medical History: History reviewed. No pertinent past medical history. LABS: CBC: Recent Labs 02/25/2445702/26/24 0607 02/27/24 0824 WBC 7.4 6.7 6.9 RBC 3.09* 3.06* 2.99* HGB 8.9* 9.0* 8.5* HCT 29.2* 28.7* 28.5* MCV 94.5 93.8 95.3 RDW 16.2* 16.3* 16.2* PLT 244 249 265 BMP: Recent Labs 02/25/2445702/26/24 0607 02/27/24 0824 NA 134* 134* 136 K 4.5 4.6 4.6 CL 103 105 102 CO2 24 23 24 BUN 40* 29* 40* CREATININE 5.02* 3.73* 4.91* GLUCOSE 146* 99 172* CALCIUM 8.6 8.5 8.8 ANIONGAP 7 6 11 LIVER PROFILE:No results for input(s): AST, ALT, BILITOT, ALKPHOS, PROT in the last 72 hours. No lab exists for component: LABALBU PT/INR: No results for input(s): PROTIME, INR in the last 72 hours. CARDIAC ENZYMES: No results for input(s): TROPONINI in the last 72 hours. Procalcitonin: No results found for: PROCAL COVID-19 PCR: No results for input(s): COVID19 in the last 72 hours. Objective: Vitals: BP 148/75 (BP Location: Right arm, Patient Position: Lying) Pulse 72 Temp 36.9 C (98.5 F) (Temporal) Resp 16 Ht 5' 10 (1.778 m) Wt 133 lb 6.1 oz (60.5 kg) SpO2 95% BMI 19.14 kg/m Pulse Ox: SpO2 Av % Min: 94 % Max: 99 % Supplemental O2: O2 Flow Rate (L/min): 2 L/min Physical exam: General appearance: No apparent distress, appears stated age, HEENT: Eyes: No scleral icterus Oral: Tongue is semi-moist Cardiovascular: S1/S2 heard, RRR Respiratory: Clear to auscultation bilaterally Abdomen: Soft, non-tender, non-distended bowel sounds positive Musculoskeletal: No obvious deformities seen Skin: No visible rashes or lesions. Medications: Scheduled PRN amiodarone, 200 mg, Oral, Daily aspirin, 81 mg, Oral, Daily atorvastatin, 80 mg, Oral, Daily carvedilol, 3.125 mg, Oral, BID WC collagenase, , Topical, Daily gabapentin, 100 mg, Oral, BID heparin, 5,000 Units, SubCUTAneous, 3 times per day insulin glargine, 7 Units, SubCUTAneous, Nightly insulin lispro, 0-6 Units, SubCUTAneous, TID WC And insulin lispro, 0-6 Units, SubCUTAneous, Nightly Lidocaine, 1 patch, TransDERmal, Daily mirtazapine, 15 mg, Oral, Nightly pantoprazole, 40 mg, Oral, qAM AC sevelamer carbonate, 800 mg, Oral, TID WC tiotropium, 2 puff, Inhalation, Daily PRN medications: acetaminophen OR acetaminophen, collagenase, dextrose, dextrose, glucagon (rDNA), glucose, heparin, heparin, heparin, heparin, hydrALAZINE, ipratropium-albuterol, LORazepam, melatonin, polyethylene glycol (PEG) 3350, QUEtiapine Continuous Assessment Acute, acute on chronic, unstable/uncontrolled chronic problems/diagnoses: # Acute hypoxic respiratory failure likely 2/2 volume overload # ZOFIA HD dependent - 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 Also continue fluid removal with dialysis. # Hypotension - improved # Dehiscence of distal MSI - CT Surgery evaluated # Severe malnutrition Stable chronic problems affecting care, new non-acute diagnoses: # HTN # CAD s/p CABG - ASA, statin # Chronic HFrEF # Hx of atrial fibrillation - on amiodarone, coreg 3.125 mg BID # T2DM with hyperglycemia - A1c 6.4% (11/15/23). SSI, BG checks, hypoglycemia protocol Plan As a result of the above findings & factors, the following mgmt was pursued: - Nephrology following. Continuing HD MWF while here per Nephrology - Continue chronic medications as able - prn ativan for anxiety, has not wanted to start SSRI - TCC following for dispo planning. [place] - medically ready for dc - waiting on HD assignment in [place] - am labs, replace lytes prn - delirium precautions: increase activity and limit nighttime disturbances - DVT prophylaxis: heparin and encourage ambulation Advance Directive: Full Code Anticipated Discharge - Date - 02/27 - [place] - Pending the following -HD outpatient arrangements Extended Emergency Contact Information Primary Emergency Contact: Deepti John (POA) Mobile Relation: Spouse Secondary Emergency Contact: Juan Manuel John Mobile Relation: Son Preferred language: Romanian Pressing Machine Operator needed? No Miguelangel Lopez DO Division of Hospitalist Medicine [facility] * Cherelle Arias RD - 02/27/2024 12:56 PM EDT Nutrition Assessment Type and Reason for Visit: Reassess Nutrition Recommendations/Plan: Continue Adult diet Regular; Low Sodium (2 gm); 2000 ml Supplement(s): Continue Vanilla Ensure Plus 3x/day (provides 350 kcals, 13 grams protein, 8 oz per serving) Recommend daily or pre/post HD weights Please document % of po/ONS intakes in nsg flowsheets for accurate review of po trends Continues to mtr diet tolerance given prior hx dysphagia (per MBSS 12/09), has since been upgraded toregular diet and tolerating OK. No recorded BM since 02/22 - prn miralax ordered for constipation has not been given since 02/23. Will continue to monitor labs, meds, po intakes and/or enteral nutrition tolerance, skin integrity,wt trends, and overall nutrition status - RD to follow weekly Malnutrition Assessment: Malnutrition Status: Severe malnutrition (per RD assessment 02/16/24) Context: Acute Illness Interval History: 02/23 Tearful overnight on if he will ever make it home. Tearful on exam. States he missed his 55th anniversary. Defers starting medication to help address mood. 02/24 seen at bedside after HD. Waiting placement. 02/25 seen at bedside. Req 2L of O2. Denies fever, chills, chest pain. Nutrition Assessment: LOS #15. RD following for malnutrition and dialysis. 78M w/ PMHx: HTN, CAD s/p CABG (11/21/23), Afib, T2DM, ESRD on HD who presented from [facility] on 02/11 to the ED for acute hypoxic resp fx likely 2/2 volume overload. He was placed on non- rebreather mask by EMS, and then transitioned to DC on arrival to hospital. CXR w/ pleural effusions, pulmonary vascular congestion. Symptoms improved w/ fluid removal. S/p US L thora (02/15 -1000 ml drained ) and US R thora (02/18 - 500 ml drained). Now ZOFIA on CKD depended on HD (MWF schedule). Awaiting SNF/[facility] placement. Po intakes of low sodium diet remains favorable, tolerating ensures well. Prn ativan for anxiety, declines SSRI. Daily BMP, Phos, Ca, Albumin 2x weekly per renal. Refused labs this AM. Tolerating dialysis this AM, -1000 ml UF. CBW 133# via SS yesterday 02/25, admission wt 135# via SS. On RA. No documented BM x 4 days, prn is ordered though has not been given since 02/23. On binder. Continues 15 mg remeron, known for mood,sleep, appetite. BS stable. 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 Hypertrophy of the cricopharyngeus. He was placed on a dysphagia minced and moist texture w/ NTL and was shortly upgraded to a regular texture w/ think liquids on 12/20/23 per COMPONENT [employer]SEMBLER SUPERVISOR recommendations. Estimated Daily Nutrient Needs: Energy Requirements Based On: Kcal/kg Weight Used for Energy Requirements: Current Weight for Energy Calculation (kg): 60.5 kg Total Energy Requirements (kcals/day): 5015-5800 (28-33) Weight Used for Protein Requirements: Current Weight in Kg Used for Protein Requirements: 60.5 kg Estimated Total Protein (g/day): 73-85 (1.2-1.4) Estimated Daily Total Fluid (ml/day): 1 ml/kcal or per MD Nutrition Related Findings: Wound Type: Surgical Incision Isolation Status: none Food Allergies: NKFA Teeth: Missing teeth Room Service: Selective Alfredo Scale Score: 20 Net IO Since Admission: 11,045.9 mL [02/27/24 1328] BLE Edema: Non-pitting Bowel Sounds (All Quadrants): Active Last BM Date: 02/23/24 Nutrition History: Independent of feeding and Lives with spouse at home Intake/Output Summary (Last 24 hours) at 02/27/2024 1328 Last data filed at 02/27/2024 1129 Gross per 24 hour Intake 990 ml Output -- Net 990 ml Labs/Meds Reviewed: amiodarone, 200 mg, Oral, Daily aspirin, 81 mg, Oral, Daily atorvastatin, 80 mg, Oral, Daily carvedilol, 3.125 mg, Oral, BID WC collagenase, , Topical, Daily gabapentin, 100 mg, Oral, BID heparin, 5,000 Units, SubCUTAneous, 3 times per day insulin glargine, 7 Units, SubCUTAneous, Nightly insulin lispro, 0-6 Units, SubCUTAneous, TID WC And insulin lispro, 0-6 Units, SubCUTAneous, Nightly Lidocaine, 1 patch, TransDERmal, Daily mirtazapine, 15 mg, Oral, Nightly pantoprazole, 40 mg, Oral, qAM AC sevelamer carbonate, 800 mg, Oral, TID WC tiotropium, 2 puff, Inhalation, Daily BMP: Recent Labs 02/25/24 0458 02/26/24 0607 02/27/24 0824 NA 134* 134* 136 K 4.5 4.6 4.6 CL 103 105 102 CO2 24 BUN 40* 29* 40* CREATININE 5.02* 3.73* 4.91* GLUCOSE 146* 99 172* CALCIUM 8.6 8.5 8.8 Lab Results Component Value Date PHOS 4.0 02/06/2024 PHOS 3.8 02/01/2024 PHOS 3.6 01/29/2024 CBC: Recent Labs 02/25/24 0458 02/26/24 0607 02/27/24 0824 WBC 7.4 6.7 6.9 HGB 8.9* 9.0* 8.5* HCT 29.2* 28.7* 28.5* MCV 94.5 93.8 95.3 PLT 244 249 265 Recent Labs 02/25/24 0800 02/25/24 1158 02/25/24 1939 02/26/24 0835 02/26/24 1123 02/26/24 1553 02/26/24 1936 02/27/24 1142 POCGLU 126* 92 234* 150* 157* 142* 175* 105* Current Nutrition Therapies: Adult diet Regular; Low Sodium (2 gm); 2000 ml Current Oral Intake Average Meal Intake: 76-100%, 51-75% Average Supplements Intake: 76-100%, 51-75% Anthropometric Measures: Height: 177.8 cm (5' 10) Current Body Weight: 60.3 kg (133 lb) Weight Source: Standing Scale Admission Body Weight: 61.2 kg (135 lb) (standing scale) Usual Body Weight: 72.6 kg (160 lb) (11/07/23) % Weight Change (Calculated): -16.9 Platter Body Weight (lbs) (Calculated): 166 lbs Platter Body Weight (Kg) (Calculated): 75 kg % Platter Body Weight (Calculated): 80.1 % BMI (kg/m2) (Calculated): 19.1 BMI (Calculated): 19.14 Weight: 60.5 kg (133 lb 6.1 oz) Weight Method: Standing scale Weight History: Wt Readings from Last 20 Encounters: 02/26/24 60.5 kg (133 lb 6.1 oz) 01/28/24 62.2 kg (137 lb 2 oz) 12/25/23 62.3 kg (137 lb 5.6 oz) Nutrition Diagnosis: Increased nutrient needs related to renal dysfunction as evidenced by wounds, dialysis Severe malnutrition, In context of acute illness or injury related to cardiac dysfunction, renal dysfunction, impaired respiratory function as evidenced by moderate muscle loss, severe muscle loss, moderate loss of subcutaneous fat, severe loss of subcutaneous fat, weight loss (16.9% in 3 months) Nutrition Interventions: Food and/or Nutrient Delivery: Continue Current Diet, Continue Current ONS Nutrition Education/Counseling: No recommendation at this time Coordination of Nutrition Care: Continue to monitor while inpatient Goals: Previous Goal Met: Progressing toward Goal(s) Goals: Meet at least 75% of estimated needs, by next RD assessment Nutrition Monitoring and Evaluation: Behavioral-Environmental Outcomes: None Identified Food/Nutrient Intake Outcomes: Food and Nutrient Intake, Supplement Intake Physical Signs/Symptoms Outcomes: Biochemical Data, GI Status, Weight, Skin, Nutrition Focused Physical Findings Discharge Planning: Continue current diet, Continue Oral Nutrition Supplement Cherelle Arias MS, RD, LD Contact: or [employer] Chat (dial *[phone] from hospital phone) * Matt Quinn MD - 02/27/2024 11:52 AM EDT Nephrology Progress Note Following for Zofia HD dependent: Current Inpatient Medications: Reviewed on OCT. Seen on HD Vitals: BP 148/75 (BP Location: Right arm, Patient Position: Lying) Pulse 72 Temp 36.9 C (98.5 F) (Temporal) Resp 16 Ht 1.778 m (5' 10) Wt 60.5 kg (133 lb 6.1 oz) SpO2 95% BMI 19.14 kg/m BLOOD PRESSURE RANGE: Systolic (24hrs), Av , Min:126 , Max:186 ; Diastolic (24hrs), Av, Min:48, Max:93 24HR INTAKE/OUTPUT: Intake/Output Summary (Last 24 hours) at 02/27/2024 1152 Last data filed at 02/27/2024 1129 Gross per 24 hour Intake 690 ml Output -- Net 690 ml Physical exam: NAD breathing comfortably CTA RRR Data: Labs: Recent Labs 02/25/24 0458 02/26/24 0607 02/27/24 0824 WBC 7.4 6.7 6.9 HGB 8.9* 9.0* 8.5* HCT 29.2* 28.7* 28.5* MCV 94.5 93.8 95.3 PLT 244 249 265 Recent Labs 02/25/24 0458 02/26/24 0607 02/27/24 0824 NA 134* 134* 136 K 4.5 4.6 4.6 CL 103 105 102 CO2 24 23 24 GLUCOSE 146* 99 172* CALCIUM 8.6 8.5 8.8 BUN 40* 29* 40* CREATININE 5.02* 3.73* 4.91* Assessment and Plan: 78 y.o. male with hx including CAD, DM, HTN who presented from [facility] with respiratory failure. Nephrology following for ZOFIA/CKD. 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 in 11/22/2023 -has been on MWF schedule HTN -BP with control recently Volume -ultrafiltration with HD Electrolytes -stabilization with HD Acid/base -stabilization with HD Anemia -Hgb low at 8.9 stable CKD MBD -Ca low at 8.6 Plan: - seen on HD -Continue MWF while here - Daily BMP, Phos, Ca, Albumin 2x weekly while here - Daily nephrocaps while on COTTAGE CHEESE MAKER - Phos goal 3.5-5.5 - Electrolytes/Acid-Base and Volume as per COTTAGE CHE[employer]KER -Transfuse for Hg < 7, goal 10-11, continue weekly TONNY - Pharmacy to dose meds for eGFR < 15 -Noted plans for home now so we will arrange outpatient dialysis with [facility] Andre or Nat Thank you for allowing me to care for pt. Feel free to reach out with any questions or concerns Matt Quinn MD * Mattie Lane, PT - 02/26/2024 3:47 PM EDT Images from the original note were not included. PHYSICAL THERAPY [facility] Treatment Note Name/MRN: Jose John ([id number]) Date of : 1945 Age: 78 y.o. Room/Bed: W5526/W526 B Discharge Recommendation: Snf Facility Equipment Needed: (tbd) Other: tbd Assessment Pt completes bed mobility and transfers with independence. Pt ambulates 250' x2 with SBA and FWW. Subjective Pleasant and agreeable. Pain: Pt denies any current pain. Medical Precautions: No active isolations Proper PPE donned/doffed in accordance with facility standards. Fall Risk: Chavez Fall Risk Score: 65 (High Risk) Overall Cognitive Status: WNL Overall Orientation Status: Oriented x4 Family/Caregiver Present: none Objective Bed Mobility Supine to sit: Independent Transfers/Mobility Sit to stand: Independent Stand to sit: Independent Use of UE on bed Device(s) used: Front wheeled walker Ambulation Ambulation 1 Assistive device(s) used: Front wheeled walker Assist level: SBA Distance (ft): 250 Quality of gait: No gait deviations, No LOB Ambulation 2 Assistive device(s) used: Front wheeled walker Assist level: SBA Distance (ft): 250 Quality of gait: No gait deviations, No LOB Plan Continue acute PT per plan of care. Safety/Education Safety Safety Devices in place: call light within reach and patient left sitting EOB Restraints: N/A Education Education Given To: patient Education Provided: PT Role, PT Goals, Plan of Care, Discharge Recommendations, and Benefits of Increasing Activity Education Method: Verbal Barriers to Learning: None Education Outcome: Verbalized Understanding Outcome Measures AM-PAC AM-PAC Inpatient Mobility Raw Score (No Stairs) : 20 JH-HLM -HLM Score: Walked 250 ft or more (i.e. several laps on unit) Goals Patient Stated Goal: be with spouse, stay out of hospital Encounter Problems Encounter Problems (Active) Mobility Patient will ambulate 150 feet with independence and least restrictive device in order to improve safety and independence with mobility. (Progressing) Start: 02/13/24 Expected End: 02/27/24 Patient will ascend and descend 2 stairs with least restrictive device and independence in order tosafely negotiate home. (Not Addressed) Start: 02/13/24 Expected End: 02/27/24 Pain - Adult Encounter Problems (Resolved) Transfers Patient will perform bed mobility with independence in order to improve independence and prepare for out of bed mobility. (Completed) Start: 02/13/24 Expected End: 02/27/24 Resolved: 02/26/24 Patient will complete functional transfer with least restrictive device with independence in order to prepare for ambulation. (Completed) Start: 02/13/24 Expected End: 02/27/24 Resolved: 02/26/24 Therapy Time Individual Co-treatment Time In 1513 Time Out [address] PT * Matt Quinn MD - 02/26/2024 1:25 PM EDT Nephrology Progress Note Following for Zofia HD dependent: Current Inpatient Medications: Reviewed on OCT. Vitals: BP 139/67 (BP Location: Right arm, Patient Position: Sitting) Pulse 70 Temp 36.8 C (98.3 F) (Temporal) Resp 20 Ht 1.778 m (5' 10) Wt 60.5 kg (133 lb 6.1 oz) SpO2 93% BMI 19.14 kg/m BLOOD PRESSURE RANGE: Systolic (24hrs), Av , Min:126 , Max:160 ; Diastolic (24hrs), Av, Min:59, Max:89 24HR INTAKE/OUTPUT: Intake/Output Summary (Last 24 hours) at 02/26/2024 1327 Last data filed at 02/26/2024 1124 Gross per 24 hour Intake 1000 ml Output 100 ml Net 900 ml Physical exam: NAD breathing comfortably CTA RRR Data: Labs: Recent Labs 02/24/24 0142 02/25/24 0458 02/26/24 0607 WBC 8.0 7.4 6.7 HGB 9.9* 8.9* 9.0* HCT 32.4* 29.2* 28.7* MCV 95.9 94.5 93.8 PLT 261 244 249 Recent Labs 02/24/24 0142 02/25/24 0458 02/26/24 0607 NA 136 134* 134* K 4.2 4.5 4.6 CL 102 103 105 CO2 26 24 23 GLUCOSE 156* 146* 99 CALCIUM 8.7 8.6 8.5 BUN 31* 40* 29* CREATININE 4.39* 5.02* 3.73* Assessment and Plan: 78 y.o. male with hx including CAD, DM, HTN who presented from [facility] with respiratory failure. Nephrology following for ZOFIA/CKD. 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 in 11/22/2023 -has been on MWF schedule HTN -BP with control recently Volume -ultrafiltration with HD Electrolytes -stabilization with HD Acid/base -stabilization with HD Anemia -Hgb low at 8.9 stable CKD MBD -Ca low at 8.6 Plan: - Continue MWF while here - Daily BMP, Phos, Ca, Albumin 2x weekly while here - Daily nephrocaps while on COTTAGE CHE[employer]KER - Phos goal 3.5-5.5 - Electrolytes/Acid-Base and Volume as per COTTAGE [employer]ER -Transfuse for Hg < 7, goal 10-11, continue weekly TONNY - Pharmacy to dose meds for eGFR < 15 -Noted plans for home now so we will arrange outpatient dialysis with [facility] Andre or Nat Thank you for allowing me to care for pt. Feel free to reach out with any questions or concerns Matt Quinn MD * Miguelangel Lopez, DO - 02/26/2024 8:16 AM EDT Hospitalist Progress Note 02/26/2024 Subjective: Admit Date: 02/12/2024 PCP: OLENA GABRIEL Room#: [id number] B BRIEF HOSPITAL COURSE: Jose John is a 78 y.o. male with history of HTN, CAD s/p CABG, atrial fibrillation, T2DM, ESRD on HD who [facility]24 for acute hypoxic respiratory failure. Staff at rehab noted that he was hypoxic. He was placed on non-rebreather mask by EMS, and then transitioned to DC on arrival to hospital. CXR with pleural effusions, pulmonary vascular congestion. Nephrology consulted. Symptoms improved with fluid removal. Admitted for further evaluation and management. Obtained US-guided Left thoracentesis (02/15). S/p US- guided right thoracentesis (02/18) with drainage of 500 mL of clear yellow fluid. Now ZOFIA depended HD. Awaiting SNF placement. Interval History: 02/23 Tearful overnight on if he will ever make it home. Tearful on exam. States he missed his 55th anniversary. Defers starting medication to help address mood. 02/24 seen at bedside after HD. Waiting placement. 02/25 seen at bedside. Req 2L of O2. Denies fever, chills, chest pain. Adult diet Regular; Low Sodium (2 gm); 2000 ml 24HR INTAKE/OUTPUT: Intake/Output Summary (Last 24 hours) at 02/26/2024 0817 Last data filed at 02/26/2024 0445 Gross per 24 hour Intake 940 ml Output 100 ml Net 840 ml Past Medical History: History reviewed. No pertinent past medical history. LABS: CBC: Recent Labs 02/24/24 0142 02/25/24 0458 02/26/24 0607 WBC 8.0 7.4 6.7 RBC 3.38* 3.09* 3.06* HGB 9.9* 8.9* 9.0* HCT 32.4* 29.2* 28.7* MCV 95.9 94.5 93.8 RDW 16.2* 16.2* 16.3* PLT 261 244 249 BMP: Recent Labs 02/24/24 0142 02/25/24 0458 02/26/24 0607 NA 136 134* 134* K 4.2 4.5 4.6 CL 102 103 105 CO2 26 24 23 BUN 31* 40* 29* CREATININE 4.39* 5.02* 3.73* GLUCOSE 156* 146* 99 CALCIUM 8.7 8.6 8.5 ANIONGAP 8 7 6 LIVER PROFILE:No results for input(s): AST, ALT, BILITOT, ALKPHOS, PROT in the last 72 hours. No lab exists for component: LABALBU PT/INR: No results for input(s): PROTIME, INR in the last 72 hours. CARDIAC ENZYMES: No results for input(s): TROPONINI in the last 72 hours. Procalcitonin: No results found for: PROCAL COVID-19 PCR: No results for input(s): COVID19 in the last 72 hours. Objective: Vitals: BP 146/64 (BP Location: Right arm, Patient Position: Lying) Pulse 82 Temp 36.7 C (98.1 F) (Temporal) Resp 18 Ht 5' 10 (1.778 m) Wt 133 lb 6.1 oz (60.5 kg) SpO2 99% BMI 19.14 kg/m Pulse Ox: SpO2 Av.8 % Min: 91 % Max: 99 % Supplemental O2: O2 Flow Rate (L/min): 2 L/min Physical exam: General appearance: No apparent distress, appears stated age, HEENT: Eyes: No scleral icterus Oral: Tongue is semi-moist Cardiovascular: S1/S2 heard, RRR Respiratory: Clear to auscultation bilaterally Abdomen: Soft, non-tender, non-distended bowel sounds positive Musculoskeletal: No obvious deformities seen Skin: No visible rashes or lesions. Medications: Scheduled PRN amiodarone, 200 mg, Oral, Daily aspirin, 81 mg, Oral, Daily atorvastatin, 80 mg, Oral, Daily carvedilol, 3.125 mg, Oral, BID WC collagenase, , Topical, Daily gabapentin, 100 mg, Oral, BID heparin, 5,000 Units, SubCUTAneous, 3 times per day insulin glargine, 7 Units, SubCUTAneous, Nightly insulin lispro, 0-6 Units, SubCUTAneous, TID WC And insulin lispro, 0-6 Units, SubCUTAneous, Nightly Lidocaine, 1 patch, TransDERmal, Daily mirtazapine, 15 mg, Oral, Nightly pantoprazole, 40 mg, Oral, qAM AC sevelamer carbonate, 800 mg, Oral, TID WC tiotropium, 2 puff, Inhalation, Daily PRN medications: acetaminophen OR acetaminophen, collagenase, dextrose, dextrose, glucagon (rDNA), glucose, heparin, heparin, heparin, heparin, ipratropium-albuterol, LORazepam, melatonin, polyethylene glycol (PEG) 3350, QUEtiapine Continuous Assessment Acute, acute on chronic, unstable/uncontrolled chronic problems/diagnoses: # Acute hypoxic respiratory failure likely 2/2 volume overload - CXR showed pleural effusions and pulmonary vascular congestion # ZOFIA HD dependent - 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 Also continue fluid removal with dialysis. # Hypotension - improved # Dehiscence of distal MSI - CT Surgery evaluated # Severe malnutrition Stable chronic problems affecting care, new non-acute diagnoses: # HTN # CAD s/p CABG - ASA, statin # Chronic HFrEF # Hx of atrial fibrillation - on amiodarone, coreg 3.125 mg BID # T2DM with hyperglycemia - A1c 6.4% (11/15/23). SSI, BG checks, hypoglycemia protocol Plan As a result of the above findings & factors, the following mgmt was pursued: - Nephrology following. Continuing iHD MWF while here per Nephrology - Continue chronic medications as able - prn ativan for anxiety, has not wanted to start SSRI - TCC following for dispo planning. [place] - am labs, replace lytes prn - delirium precautions: increase activity and limit nighttime disturbances - DVT prophylaxis: heparin and encourage ambulation Advance Directive: Full Code Anticipated Discharge - Date - 02/26 - [place] - Pending the following -HD outpatient arrangements, HD wed Extended Emergency Contact Information Primary Emergency Contact: Deepti John (POA) Mobile Relation: Spouse Secondary Emergency Contact: Juan Manuel John Mobile Relation: Son Preferred language: Romanian Pressing Machine Operator needed? No Miguelangel Lopez DO Division of Hospitalist Medicine [facility] * Carol Hallman, ENTRY LEVEL FINANCIAL ANALYST - 02/25/2024 2:24 PM EDT Images from the original note were not included. PHYSICAL THERAPY [facility] Treatment Note Name/MRN: Jose John ([id number]) Date of : 1945 Age: 78 y.o. Room/Bed: [facility] B Discharge Recommendation: Snf Facility Equipment Needed: (tbd) Other: tbd Assessment BP 118/58, SpO2 98%. No LOB. Apparent weakness without UE support during transfers. Steady gait, tolerated increased distance without LOB or SOB. Patient states he has vertigo and on occasion he has LOB without warning. Currently no c/o or LOB noted. Encouraged increased mobility with all staff. Patient may benefit from continued inpatient strength, endurance due to readmit and medical support. Progress to asst. Living with spouse per patient request. Discussed discharge with primary PT Subjective Seated bedside chair. Tearful, frustrated with medical problems and still being in hospital. Wants to be with spouse. Pain: left side rib discomfort Medical Precautions: No active isolations Proper PPE donned/doffed in accordance with facility standards. Fall Risk: Chavez Fall Risk Score: 85 (High Risk) Precautions/Restrictions: Lines/Drains/Airways: O2-2L Overall Cognitive Status: WFL Overall Orientation Status: Oriented x4 Family/Caregiver Present: none Objective Bed Mobility Sit to supine: Modified Independent-HOB elevated Transfers/Mobility Sit to stand: Supervision Stand to sit: Supervision Consecutive reps, with/without UE support Ambulation Ambulation 1 Assistive device(s) used: front wheeled walker Assist level: Supervision Distance (ft): >250' Quality of gait: reciprocal stepping Balance: stance unsupported~90sec without LOB Exercises Exercises Comments: stance UE support; heel/toe lift, hip abduction, hip flexion. 10reps all ex's Other exercises Other exercises?: (I.S. 5reps @ 1250ml) Plan Continue acute PT per plan of care. Safety/Education Safety Safety Devices in place: call light within reach, left in bed, gait belt, and no alarms engaged upon entry Restraints: No Education Therex, I.S., discharge Outcome Measures AM-PAC AM-PAC Inpatient Mobility Raw Score (No Stairs) : 20 JH-HLM -HLM Score: Walked 25 ft or more (i.e. walked outside of room) Goals Patient Stated Goal: be with spouse, stay out of hospital Encounter Problems Encounter Problems (Active) Mobility Patient will ambulate 150 feet with independence and least restrictive device in order to improve safety and independence with mobility. (Progressing) Start: 02/13/24 Expected End: 02/27/24 Patient will ascend and descend 2 stairs with least restrictive device and independence in order tosafely negotiate home. (Not Addressed) Start: 02/13/24 Expected End: 02/27/24 Pain - Adult Transfers Patient will perform bed mobility with independence in order to improve independence and prepare for out of bed mobility. (Progressing) Start: 02/13/24 Expected End: 02/27/24 Patient will complete functional transfer with least restrictive device with independence in order to prepare for ambulation. (Progressing) Start: 02/13/24 Expected End: 02/27/24 Therapy Time Individual Co-treatment Time In 1405 Time Out 1430 Minutes 25 Timed Code Treatment Minutes: (gt-tp) Carol Hallman PTA Associated attestation - Mattie Lane PT - 02/25/2024 4:24 PM EDT In agreement with change in recommendation to SNF from IPR. Pt is has progressed and may continue to progress towards discharge to assisted living. * RAFFY Mota - 02/25/2024 12:48 PM EDT Images from the original note were not included. OCCUPATIONAL THERAPY [facility] Treatment Note Name/MRN: Jose John ([id number]) Date of : 1945 Age: 78 y.o. Room/Bed: W5526/W5526 B Discharge Recommendation: IP Rehab, Continue to assess pending progress Assessment SBA for bed mobility, sitting EOB, sit<->stand, standing and transfers. Pt. Would tolerate 3 hours of therapy daily. OT recommend IP Rehab at discharge. Subjective Pt. Was in bed at the start of OT but now sitting in his recliner eating lunch. Pt. Was agitated atthis time (reason unknown), requiring max encouragement to participate. Pain: Pt denies any current pain. Medical Precautions: No active isolations Proper PPE donned/doffed in accordance with facility standards. Fall Risk: Chavez Fall Risk Score: 85 (High Risk) Precautions/Restrictions: Lines/Drains/Airways: O2 Bed alarm Family/Caregiver Present: none Objective Bed Mobility Supine to sit: SBA Rolling to right: SBA Scooting: SBA Transfers/Mobility Sit to stand: SBA Stand to sit: SBA Stand step: SBA Bed to chair: SBA Sitting balance: SBA Standing balance: SBA Pt. Stoof without a device Device(s) used: none Cognition - Arousal/alertness: appropriate responses to stimuli - Following commands: follows one step commands consistently - Attention span: attends with cues to redirect - Safety judgement: decreased awareness of need for assistance and decreased awareness of need for safety - Insights: decreased awareness of deficits - Initiation: requires cues for all - Sequencing: requires cues for some Plan Continue acute OT per plan of care. Safety/Education Safety Safety Devices in place: All fall risk precautions in place, call light within reach, left in chair, chair alarm in place, gait belt, patient at risk for falls, and nurse notified Restraints: No Education Education Given To: patient Education Provided: OT Role, Plan of Care, Transfer Training, and Benefits of Increasing Activity Education Method: Verbal and Demonstration Barriers to Learning: Agitation Education Outcome: Verbalized Understanding, Demonstrated Understanding, and Continued Education Needed AM-PAC AM-PAC Inpatient Daily Activity Raw Score: 21 ADL Inpatient CMS G-Code Modifier: CJ Goals Patient Stated Goal: To get out of this place!' Encounter Problems Encounter Problems (Active) Balance Patient will maintain dynamic standing balance for 10 minutes with modified independence to promoteendurance needed for safe functional mobility (Slowly Progressing) Start: 02/13/24 Expected End: 03/12/24 Bathing Patient will utilize adaptive techniques to bathe body with independence (Not Addressed) Start: 02/13/24 Expected End: 03/12/24 Dressings Lower Extremities Patient will dress lower body with independence (Not Addressed) Start: 02/13/24 Expected End: 03/12/24 Grooming Patient will complete daily grooming tasks while standing at sink with independence (Progressing) Start: 02/13/24 Expected End: 03/12/24 Toileting Patient will complete toileting tasks at standard toilet with independence. (Not Addressed) Start: 02/13/24 Expected End: 03/12/24 Therapy Time Individual Co-treatment Time In 1234 Time Out 1243 Minutes 9 Timed Code Treatment Minutes: 9 Minutes (ther act-1) RAFFY Vega * Carol Hallman PTA - 02/25/2024 11:54 AM EDT Images from the original note were not included. PHYSICAL THERAPY [facility] Name/MRN: Jose John ([id number]) Date: 02/25/2024 OOR at this time. Return later date/time. Carol Hallman PTA * Matt Quinn MD - 02/25/2024 11:23 AM EDT Nephrology Progress Note Following for Zofia HD dependent: Seen on HD +frustation Current Inpatient Medications: Reviewed on OCT. Vitals: BP 92/54 Pulse 76 Temp 37.2 C (99 F) Resp 16 Ht 1.778 m (5' 10) Wt 60.5 kg (133 lb 6.4 oz) SpO2 96% BMI 19.14 kg/m BLOOD PRESSURE RANGE: Systolic (24hrs), Av , Min:89 , Max:162 ; Diastolic (24hrs), Av, Min:44, Max:82 24HR INTAKE/OUTPUT: Intake/Output Summary (Last 24 hours) at 02/25/2024 1123 Last data filed at 02/25/2024 0546 Gross per 24 hour Intake 610 ml Output 300 ml Net 310 ml Physical exam: NAD breathing comfortably CTA RRR Data: Labs: Recent Labs 02/23/2444602/24/24 0142 02/25/24 0458 WBC 6.3 8.0 7.4 HGB 9.1* 9.9* 8.9* HCT 29.8* 32.4* 29.2* MCV 93.1 95.9 94.5 PLT 246 261 244 Recent Labs 02/23/2444602/24/2414102/25/24 0458 NA 135 136 134* K 3.9 4.2 4.5 CL 103 102 103 CO2 28 26 24 GLUCOSE 99 156* 146* CALCIUM 8.7 8.7 8.6 BUN 20 31* 40* CREATININE 3.22* 4.39* 5.02* Assessment and Plan: 78 y.o. male with hx including CAD, DM, HTN who presented from [facility] with respiratory failure. Nephrology following for ZOFIA/CKD. 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 in 11/22/2023 -has been on MWF schedule HTN -BP with control recently Volume -ultrafiltration with HD Electrolytes -stabilization with HD Acid/base -stabilization with HD Anemia -Hgb low at 8.9 stable CKD MBD -Ca low at 8.6 Plan: - s/p iHD today, continue MWF while here - Daily BMP, Phos, Ca, Albumin 2x weekly while here - Daily nephrocaps while on C[employer] - Phos goal 3.5-5.5 - Electrolytes/Acid-Base and Volume as per [employer] -Transfuse for Hg < 7, goal 10-11, continue weekly TONNY - Pharmacy to dose meds for eGFR < 15 -Noted plans for home now so we will arrange outpatient dialysis with [facility] Anrde or Nat Thank you for allowing me to care for pt. Feel free to reach out with any questions or concerns Matt Quinn MD * Miguelangel Lopez, DO - 02/25/2024 8:33 AM EDT Hospitalist Progress Note 02/25/2024 Subjective: Admit Date: 02/12/2024 PCP: OLENA GABRIEL Room#: [id number] B BRIEF HOSPITAL COURSE: Jose John is a 78 y.o. male with history of HTN, CAD s/p CABG, atrial fibrillation, T2DM, ESRD on HD who [facility] for acute hypoxic respiratory failure. Staff at rehab noted that he was hypoxic. He was placed on non-rebreather mask by EMS, and then transitioned to DC on arrival to hospital. CXR with pleural effusions, pulmonary vascular congestion. Nephrology consulted. Symptoms improved with fluid removal. Admitted for further evaluation and management. Obtained US-guided Left thoracentesis (02/15). S/p US- guided right thoracentesis (02/18) with drainage of 500 mL of clear yellow fluid. Awaiting SNF placement. Interval History: 02/23 Tearful overnight on if he will ever make it home. Tearful on exam. States he missed his 55th anniversary. Defers starting medication to help address mood. 02/24 seen at bedside after HD. Waiting placement. Adult diet Regular; Low Sodium (2 gm); 2000 ml 24HR INTAKE/OUTPUT: Intake/Output Summary (Last 24 hours) at 02/25/2024 0833 Last data filed at 02/25/2024 0546 Gross per 24 hour Intake 730 ml Output 300 ml Net 430 ml Past Medical History: History reviewed. No pertinent past medical history. LABS: CBC: Recent Labs 02/23/24 0447 02/24/24 0142 02/25/24 0458 WBC 6.3 8.0 7.4 RBC 3.20* 3.38* 3.09* HGB 9.1* 9.9* 8.9* HCT 29.8* 32.4* 29.2* MCV 93.1 95.9 94.5 RDW 16.1* 16.2* 16.2* PLT 246 261 244 BMP: Recent Labs 02/23/24 0447 02/24/24 0142 02/25/24 0458 NA 135 136 134* K 3.9 4.2 4.5 CL 103 102 103 CO2 28 26 24 BUN 20 31* 40* CREATININE 3.22* 4.39* 5.02* GLUCOSE 99 156* 146* CALCIUM 8.7 8.7 8.6 ANIONGAP 5 8 7 LIVER PROFILE:No results for input(s): AST, ALT, BILITOT, ALKPHOS, PROT in the last 72 hours. No lab exists for component: LABALBU PT/INR: No results for input(s): PROTIME, INR in the last 72 hours. CARDIAC ENZYMES: No results for input(s): TROPONINI in the last 72 hours. Procalcitonin: No results found for: PROCAL COVID-19 PCR: No results for input(s): COVID19 in the last 72 hours. Objective: Vitals: BP 136/72 Pulse 77 Temp 37.2 C (99 F) Resp 16 Ht 5' 10 (1.778 m) Wt 133 lb 6.4 oz (60.5 kg) SpO2 96% BMI 19.14 kg/m Pulse Ox: SpO2 Av.1 % Min: 94 % Max: 99 % Supplemental O2: O2 Flow Rate (L/min): 3 L/min Physical exam: General appearance: No apparent distress, appears stated age, HEENT: Eyes: No scleral icterus Oral: Tongue is semi-moist Cardiovascular: S1/S2 heard, RRR Respiratory: Clear to auscultation bilaterally Abdomen: Soft, non-tender, non-distended bowel sounds positive Musculoskeletal: No obvious deformities seen Skin: No visible rashes or lesions. Medications: Scheduled PRN amiodarone, 200 mg, Oral, Daily aspirin, 81 mg, Oral, Daily atorvastatin, 80 mg, Oral, Daily carvedilol, 3.125 mg, Oral, BID WC collagenase, , Topical, Daily gabapentin, 100 mg, Oral, BID heparin, 5,000 Units, SubCUTAneous, 3 times per day insulin glargine, 7 Units, SubCUTAneous, Nightly insulin lispro, 0-6 Units, SubCUTAneous, TID WC And insulin lispro, 0-6 Units, SubCUTAneous, Nightly Lidocaine, 1 patch, TransDERmal, Daily mirtazapine, 15 mg, Oral, Nightly pantoprazole, 40 mg, Oral, qAM AC sevelamer carbonate, 800 mg, Oral, TID WC tiotropium, 2 puff, Inhalation, Daily PRN medications: acetaminophen OR acetaminophen, collagenase, dextrose, dextrose, glucagon (rDNA), glucose, heparin, heparin, heparin, heparin, ipratropium-albuterol, melatonin, polyethylene glycol (PEG) 3350, QUEtiapine Continuous Assessment Acute, acute on chronic, unstable/uncontrolled chronic problems/diagnoses: # Acute hypoxic respiratory failure likely 2/2 volume overload - CXR showed pleural effusions and pulmonary vascular congestion # ZOFIA HD dependent - 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 Also continue fluid removal with dialysis. # Hypotension - improved # Dehiscence of distal MSI - CT Surgery evaluated # Severe malnutrition Stable chronic problems affecting care, new non-acute diagnoses: # HTN # CAD s/p CABG - ASA, statin # Chronic HFrEF # Hx of atrial fibrillation - on amiodarone, coreg 3.125 mg BID # T2DM with hyperglycemia - A1c 6.4% (11/15/23). SSI, BG checks, hypoglycemia protocol Plan As a result of the above findings & factors, the following mgmt was pursued: - Nephrology following. Continuing iHD MWF while here per Nephrology. Recs noted. - Continue chronic medications as able - PT/OT updating notes - TCC following for dispo planning. - am labs, replace lytes prn - delirium precautions: increase activity and limit nighttime disturbances - DVT prophylaxis: heparin and encourage ambulation Advance Directive: Full Code Anticipated Discharge - Date - 2-3 days - Location - snf/rehab - Pending the following - updated therapy notes Extended Emergency Contact Information Primary Emergency Contact: Deepti John (POA) Mobile Relation: Spouse Secondary Emergency Contact: Juan Manuel John Mobile Relation: Son Preferred language: Romanian Pressing Machine Operator needed? No Miguelangel Lopez DO Division of Hospitalist Medicine [facility] * Kaushal Santiago MD - 02/24/2024 4:50 PM EDT Nephrology Progress Note Following for Zofia HD dependent: Patient seen and examined this am. Current Inpatient Medications: Reviewed on OCT. Vitals: BP (!) 141/44 Pulse 65 Temp 36.6 C (97.8 F) (Temporal) Resp 18 Ht 1.778 m (5' 10) Wt 59.4 kg (130 lb 14.4 oz) SpO2 97% BMI 18.78 kg/m BLOOD PRESSURE RANGE: Systolic (24hrs), Av , Min:141 , Max:156 ; Diastolic (24hrs), Av, Min:44, Max:81 24HR INTAKE/OUTPUT: Intake/Output Summary (Last 24 hours) at 02/24/2024 1650 Last data filed at 02/24/2024 1526 Gross per 24 hour Intake 740 ml Output 400 ml Net 340 ml Physical exam: NAD breathing comfortably No edema Data: Labs: Recent Labs 02/22/24 0109 02/23/24 0447 02/24/24 0142 WBC 6.3 6.3 8.0 HGB 8.4* 9.1* 9.9* HCT 28.3* 29.8* 32.4* MCV 94.3 93.1 95.9 PLT 229 246 261 Recent Labs 02/22/24 0109 02/23/24 0447 02/24/24 0142 NA 133* 135 136 K 4.1 3.9 4.2 CL 103 103 102 CO2 22 28 26 GLUCOSE 109* 99 156* CALCIUM 8.6 8.7 8.7 BUN 35* 20 31* CREATININE 4.49* 3.22* 4.39* Assessment and Plan: 78 y.o. male with hx including CAD, DM, HTN who presented from [facility] with respiratory failure. Nephrology following for ZOFIA/CKD. 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 in 11/22/2023 -has been on MWF schedule HTN -BP with control recently Volume -ultrafiltration with HD Electrolytes -stabilization with HD Acid/base -stabilization with HD Anemia -Hgb low at 9.1, stable CKD MBD -Ca low at 8.1 Plan: - no indication for iHD today continue MWF while here - Daily BMP, Phos, Ca, Albumin 2x weekly while here - Daily nephrocaps while on [employer] - Phos goal 3.5-5.5 - Electrolytes/Acid-Base and Volume as per [employer] -Transfuse for Hg < 7, goal 10-11, continue weekly TONNY - Pharmacy to dose meds for eGFR < 15 - monitor for renal recovery -Noted plans for home now so we will arrange outpatient dialysis with [facility] Andre or Nat Thank you for allowing me to care for pt. Feel free to reach out with any questions or concerns Kaushal Santiago MD [facility] [place] [phone] * Miguelangel Lopez DO - 02/24/2024 8:33 AM EDT Hospitalist Progress Note 02/24/2024 Subjective: Admit Date: 02/12/2024 PCP: OLENA GABRIEL Room#: [id number] B BRIEF HOSPITAL COURSE: Jose John is a 78 y.o. male with history of HTN, CAD s/p CABG, atrial fibrillation, T2DM, ESRD on HD who presented [facility] ED [facility] on 02[facility]12[facility]24 for acute hypoxic respiratory failure. Staff at rehab noted that he was hypoxic. He was placed on non-rebreather mask by EMS, and then transitioned to DC on arrival to hospital. CXR with pleural effusions, pulmonary vascular congestion. Nephrology consulted. Symptoms improved with fluid removal. Admitted for further evaluation and management. Obtained US-guided Left thoracentesis (02/15). S/p US- guided right thoracentesis (02/18) with drainage of 500 mL of clear yellow fluid. Awaiting SNF placement. Interval History: Tearful overnight on if he will ever make it home. Tearful on exam. States he missed his 55th anniversary. Defers starting medication to help address mood. Adult diet Regular; Low Sodium (2 gm); 2000 ml 24HR INTAKE/OUTPUT: Intake/Output Summary (Last 24 hours) at 02/24/2024 0834 Last data filed at 02/24/2024 0305 Gross per 24 hour Intake 1220 ml Output 100 ml Net 1120 ml Past Medical History: History reviewed. No pertinent past medical history. LABS: CBC: Recent Labs 02/22/24 01002/23/2444602/24/24 014 WBC 6.3 6.3 8.0 RBC 3.00* 3.20* 3.38* HGB 8.4* 9.1* 9.9* HCT 28.3* 29.8* 32.4* MCV 94.3 93.1 95.9 RDW 16.2* 16.1* 16.2* PLT 229 246 261 BMP: Recent Labs 02/22/2410802/23/2444602/24/24141 NA 133* 135 136 K 4.1 3.9 4.2 CL 103 103 102 CO2 22 28 26 BUN 35* 20 31* CREATININE 4.49* 3.22* 4.39* GLUCOSE 109* 99 156* CALCIUM 8.6 8.7 8.7 ANIONGAP 8 5 8 LIVER PROFILE:No results for input(s): AST, ALT, BILITOT, ALKPHOS, PROT in the last 72 hours. No lab exists for component: LABALBU PT/INR: No results for input(s): PROTIME, INR in the last 72 hours. CARDIAC ENZYMES: No results for input(s): TROPONINI in the last 72 hours. Procalcitonin: No results found for: PROCAL COVID-19 PCR: No results for input(s): COVID19 in the last 72 hours. Objective: Vitals: BP 156/81 (BP Location: Right arm, Patient Position: Lying) Pulse 70 Temp 36.7 C (98 F)(Temporal) Resp 18 Ht 5' 10 (1.778 m) Wt 130 lb 14.4 oz (59.4 kg) SpO2 97% BMI 18.78 kg/m Pulse Ox: SpO2 Av.2 % Min: 94 % Max: 99 % Supplemental O2: O2 Flow Rate (L/min): 2 L/min Physical exam: General appearance: No apparent distress, appears stated age, HEENT: Eyes: No scleral icterus Oral: Tongue is semi-moist Cardiovascular: S1/S2 heard, RRR Respiratory: Clear to auscultation bilaterally Abdomen: Soft, non-tender, non-distended bowel sounds positive Musculoskeletal: No obvious deformities seen Skin: No visible rashes or lesions. Medications: Scheduled PRN amiodarone, 200 mg, Oral, Daily aspirin, 81 mg, Oral, Daily atorvastatin, 80 mg, Oral, Daily carvedilol, 3.125 mg, Oral, BID WC collagenase, , Topical, Daily gabapentin, 100 mg, Oral, BID heparin, 5,000 Units, SubCUTAneous, 3 times per day insulin glargine, 7 Units, SubCUTAneous, Nightly insulin lispro, 0-6 Units, SubCUTAneous, TID WC And insulin lispro, 0-6 Units, SubCUTAneous, Nightly Lidocaine, 1 patch, TransDERmal, Daily mirtazapine, 15 mg, Oral, Nightly pantoprazole, 40 mg, Oral, qAM AC sevelamer carbonate, 800 mg, Oral, TID WC tiotropium, 2 puff, Inhalation, Daily PRN medications: acetaminophen OR acetaminophen, collagenase, dextrose, dextrose, glucagon (rDNA), glucose, heparin, heparin, heparin, heparin, ipratropium-albuterol, melatonin, polyethylene glycol (PEG) 3350, QUEtiapine Continuous Assessment Acute, acute on chronic, unstable/uncontrolled chronic problems/diagnoses: # Acute hypoxic respiratory failure likely 2/2 volume overload - CXR showed pleural effusions and pulmonary vascular congestion # ZOFIA on CKD4 and likely now ESRD - Started on COTTAGE CHE[employer] MAKER back on 11/22/23 and monitored for some recovery but now nephrology feels likely he is ESRD. # Bilateral pleural effusions s/p US-guided right thoracentesis (02/18) - s/p drainage of 500 mL of clear yellow fluid removed by US thoracentesis per IR on 02/18. Also continue fluid removal with dialysis. # Hypotension - improved # Dehiscence of distal MSI - CT Surgery evaluated # Severe malnutrition Stable chronic problems affecting care, new non-acute diagnoses: # HTN # CAD s/p CABG - ASA, statin # Chronic HFrEF # Hx of atrial fibrillation - on amiodarone, coreg 3.125 mg BID # T2DM with hyperglycemia - A1c 6.4% (11/15/23). SSI, BG checks, hypoglycemia protocol Plan As a result of the above findings & factors, the following mgmt was pursued: - Nephrology following. Continuing iHD MWF while here per Nephrology. Recs noted. - Continue chronic medications as able - PT/OT recommended IPR - TCC following for dispo planning. Currently plan is to discharge to [facility] once arranged. - am labs, replace lytes prn - delirium precautions: increase activity and limit nighttime disturbances - DVT prophylaxis: heparin and encourage ambulation Advance Directive: Full Code Anticipated Discharge - Date - 2-3 days - Location - [facility] - Pending the following - acceptance (TCC arranging) Extended Emergency Contact Information Primary Emergency Contact: Alek LatoyaLeela VILLATOROetta Mobile Relation: Spouse Secondary Emergency Contact: Juan Manuel John Mobile Relation: Son Preferred language: Romanian Pressing Machine Operator needed? No Miguelangel Lopez DO Division of Hospitalist Medicine [facility] * Kaushal Santiago MD - 02/23/2024 8:53 PM EDT Nephrology Progress Note Following for Zofia HD dependent: Patient seen and examined this am. No new acute complaints. Current Inpatient Medications: Reviewed on OCT. Vitals: BP 147/79 (BP Location: Right arm, Patient Position: Sitting) Pulse 72 Temp 36.7 C (98 F) (Temporal) Resp 16 Ht 1.778 m (5' 10) Wt 59 kg (130 lb 1.6 oz) SpO2 96% BMI 18.67 kg/m BLOOD PRESSURE RANGE: Systolic (24hrs), Av , Min:140 , Max:160 ; Diastolic (24hrs), Av, Min:68, Max:79 24HR INTAKE/OUTPUT: Intake/Output Summary (Last 24 hours) at 02/23/20242052 Last data filed at 02/23/20241939 Gross per 24 hour Intake 1240 ml Output 2 ml Net 1238 ml Physical exam: NAD breathing comfortably No edema Data: Labs: Recent Labs 02/21/24 0500 02/22/24 0109 02/23/24 0447 WBC 6.9 6.3 6.3 HGB 9.5* 8.4* 9.1* HCT 32.4* 28.3* 29.8* MCV 97.6 94.3 93.1 PLT 229 229 246 Recent Labs 02/21/24 0500 02/22/24 0109 02/23/24 0447 NA 138 133* 135 K 4.0 4.1 3.9 CL 103 103 103 CO2 23 22 28 GLUCOSE 124* 109* 99 CALCIUM 8.7 8.6 8.7 BUN 24* 35* 20 CREATININE 3.62* 4.49* 3.22* Assessment and Plan: 78 y.o. male with hx including CAD, DM, HTN who presented from [facility] with [facility] failure. Nephrology following for ZOFIA/CKD. 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 in 11/22/2023 -has been on MWF schedule HTN -BP with control recently Volume -ultrafiltration with HD Electrolytes -stabilization with HD Acid/base -stabilization with HD Anemia -Hgb low at 9.1, stable CKD MBD -Ca low at 8.1 Plan: - no indication for iHD today continue MWF while here - Daily BMP, Phos, Ca, Albumin 2x weekly while here - Daily nephrocaps while on [employer] - Phos goal 3.5-5.5 - Electrolytes/Acid-Base and Volume as per [employer] -Transfuse for Hg < 7, goal 10-11, continue weekly TONNY - Pharmacy to dose meds for eGFR < 15 - monitor for renal recovery -Noted plans for home now so we will arrange outpatient dialysis with [facility] Andre or Nat Thank you for allowing me to care for pt. Feel free to reach out with any questions or concerns Kaushal Santiago MD [facility] [phone] * Donny Landry MD - 02/23/2024 12:23 PM EDT Hospitalist Progress Note 02/23/2024 Subjective: Admit Date: 02/12/2024 PCP: OLENA GABRIEL Room#: [id number] BRIEF HOSPITAL COURSE: Jose John is a 78 y.o. male with history of HTN, CAD s/p CABG, atrial fibrillation, T2DM, ESRD on HD who [facility] for acute hypoxic respiratory failure. Staff at rehab noted that he was hypoxic. He was placed on non-rebreather mask by EMS, and then transitioned to DC on arrival to hospital. CXR with pleural effusions, pulmonary vascular congestion. Nephrology consulted. Symptoms improved with fluid removal. Admitted for further evaluation and management. Obtained US-guided Left thoracentesis (02/15). S/p US- guided right thoracentesis (02/18) with drainage of 500 mL of clear yellow fluid. Awaiting SNF placement. Interval History: No overnight issues. Patient sitting up in chair AOx3. States that he feels good today. Reports some back pain that is same but looks very comfortable. Denies fever, chills, chest pain or sob, abdominal pain, N/V. Adult diet Regular; Low Sodium (2 gm); 2000 ml 24HR INTAKE/OUTPUT: Intake/Output Summary (Last 24 hours) at 02/23/2024 1223 Last data filed at 02/23/2024 0748 Gross per 24 hour Intake 320 ml Output 2 ml Net 318 ml Past Medical History: History reviewed. No pertinent past medical history. LABS: CBC: Recent Labs 02/21/24 0500 02/22/24 0109 02/23/24 0447 WBC 6.9 6.3 6.3 RBC 3.32* 3.00* 3.20* HGB 9.5* 8.4* 9.1* HCT 32.4* 28.3* 29.8* MCV 97.6 94.3 93.1 RDW 16.3* 16.2* 16.1* PLT 229 229 246 BMP: Recent Labs 02/21/24 0500 02/22/24 0109 02/23/24 0447 NA 138 133* 135 K 4.0 4.1 3.9 CL 103 103 103 CO2 23 22 28 BUN 24* 35* 20 CREATININE 3.62* 4.49* 3.22* GLUCOSE 124* 109* 99 CALCIUM 8.7 8.6 8.7 ANIONGAP 11 8 5 LIVER PROFILE:No results for input(s): AST, ALT, BILITOT, ALKPHOS, PROT in the last 72 hours. No lab exists for component: LABALBU PT/INR: No results for input(s): PROTIME, INR in the last 72 hours. CARDIAC ENZYMES: No results for input(s): TROPONINI in the last 72 hours. Procalcitonin: No results found for: PROCAL COVID-19 PCR: No results for input(s): COVID19 in the last 72 hours. Objective: Vitals: BP 150/69 (BP Location: Right arm, Patient Position: Sitting) Pulse 77 Temp 36.4 C (97.6 F) (Temporal) Resp 16 Ht 5' 10 (1.778 m) Wt 130 lb 1.6 oz (59 kg) SpO2 94% BMI 18.67 kg/m Pulse Ox: SpO2 Av.6 % Min: 92 % Max: 95 % Supplemental O2: O2 Flow Rate (L/min): 3 L/min Physical exam: General appearance: No apparent distress, appears stated age, HEENT: Eyes: No scleral icterus Oral: Tongue is semi-moist Cardiovascular: S1/S2 heard, RRR Respiratory: Clear to auscultation bilaterally Abdomen: Soft, non-tender, non-distended bowel sounds positive Musculoskeletal: No obvious deformities seen Skin: No visible rashes or lesions. Medications: Scheduled PRN amiodarone, 200 mg, Oral, Daily aspirin, 81 mg, Oral, Daily atorvastatin, 80 mg, Oral, Daily carvedilol, 3.125 mg, Oral, BID WC collagenase, , Topical, Daily gabapentin, 100 mg, Oral, BID heparin, 5,000 Units, SubCUTAneous, 3 times per day insulin glargine, 7 Units, SubCUTAneous, Nightly insulin lispro, 0-6 Units, SubCUTAneous, TID WC And insulin lispro, 0-6 Units, SubCUTAneous, Nightly Lidocaine, 1 patch, TransDERmal, Daily mirtazapine, 15 mg, Oral, Nightly pantoprazole, 40 mg, Oral, qAM AC sevelamer carbonate, 800 mg, Oral, TID WC tiotropium, 2 puff, Inhalation, Daily PRN medications: acetaminophen OR acetaminophen, collagenase, dextrose, dextrose, glucagon (rDNA), glucose, heparin, heparin, heparin, heparin, ipratropium-albuterol, melatonin, polyethylene glycol (PEG) 3350, QUEtiapine Continuous Assessment Acute, acute on chronic, unstable/uncontrolled chronic problems/diagnoses: # Acute hypoxic respiratory failure likely 2/2 volume overload - CXR showed pleural effusions and pulmonary vascular congestion # ZOFIA on CKD4 and likely now ESRD - Started on COTTAGE [employer] back on 11/22/23 and monitored forsome recovery but now nephrology feels likely he is ESRD. # Bilateral pleural effusions s/p US-guided right thoracentesis (02/18) - s/p drainage of 500 mL of clear yellow fluid removed by US thoracentesis per IR on 02/18. Also continue fluid removal with dialysis. # Hypotension - improved # Dehiscence of distal MSI - CT Surgery evaluated # Severe malnutrition Stable chronic problems affecting care, new non-acute diagnoses: # HTN # CAD s/p CABG - ASA, statin # Chronic HFrEF # Hx of atrial fibrillation - on amiodarone, coreg 3.125 mg BID # T2DM with hyperglycemia - A1c 6.4% (11/15/23). SSI, BG checks, hypoglycemia protocol Plan As a result of the above findings & factors, the following mgmt was pursued: - Nephrology following. Continuing iHD MWF while here per Nephrology. Recs noted. - Continue chronic medications as able - PT/OT recommended IPR - TCC following for dispo planning. Currently plan is to discharge to [facility] once arranged. - am labs, replace lytes prn - delirium precautions: increase activity and limit nighttime disturbances - DVT prophylaxis: heparin and encourage ambulation Advance Directive: Full Code Anticipated Discharge - Date - 2-3 days - Location - [facility] - Pending the following - acceptance (TCC arranging) Extended Emergency Contact Information Primary Emergency Contact: Deepti John (POA) Mobile Relation: Spouse Secondary Emergency Contact: AlekJuan Manuel Mobile Relation: Son Preferred language: Romanian Pressing Machine Operator needed? No Donny Landry MD Division of Hospitalist Medicine Acute care [facility] * Dolly Barker RN - 02/22/2024 4:19 PM EDT Pt not c/o any pain from fall last night, states his back is sore from recent thoracentesis. * Kaushal Santiago MD - 02/22/2024 3:31 PM EDT Nephrology Progress Note Following for Zofia HD dependent: Patient seen this am, endorsing discomfort around thoracentesis site. Current Inpatient Medications: Reviewed on OCT. Vitals: BP 128/78 (BP Location: Right arm, Patient Position: Sitting) Pulse 86 Temp 36.1 C (96.9 F) (Temporal) Resp 16 Ht 1.778 m (5' 10) Wt 60.8 kg (134 lb) SpO2 95% BMI 19.23 kg/m BLOOD PRESSURE RANGE: Systolic (24hrs), Av , Min:126 , Max:176 ; Diastolic (24hrs), Av, Min:65, Max:107 24HR INTAKE/OUTPUT: Intake/Output Summary (Last 24 hours) at 02/22/2024 1531 Last data filed at 02/22/2024 1118 Gross per 24 hour Intake 540 ml Output -- Net 540 ml Physical exam: NAD breathing comfortably No edema Data: Labs: Recent Labs 02/21/24 0500 02/22/24 0109 WBC 6.9 6.3 HGB 9.5* 8.4* HCT 32.4* 28.3* MCV 97.6 94.3 PLT 229 229 Recent Labs 02/21/24 0500 02/22/24 0109 NA 138 133* K 4.0 4.1 CL 103 103 CO2 23 22 GLUCOSE 124* 109* CALCIUM 8.7 8.6 BUN 24* 35* CREATININE 3.62* 4.49* Assessment and Plan: 78 y.o. male with hx including CAD, DM, HTN who presented from [facility] with respiratory failure. Nephrology following for ZOFIA/CKD. 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 in 11/22/2023 -has been on MWF schedule HTN -BP with control recently Volume -ultrafiltration with HD Electrolytes -stabilization with HD Acid/base -stabilization with HD Anemia -Hgb low at 9.1, stable CKD MBD -Ca low at 8.1 Plan: - is/p HD today continue MWF while here - Daily BMP, Phos, Ca, Albumin 2x weekly while here - Daily nephrocaps while on [employer] - Phos goal 3.5-5.5 - Electrolytes/Acid-Base and Volume as per [employer] -Transfuse for Hg < 7, goal 10-11, continue weekly TONNY - Pharmacy to dose meds for eGFR < 15 - monitor for renal recovery -Noted plans for home now so we will arrange outpatient dialysis with [facility] Andre or Nat Thank you for allowing me to care for pt. Feel free to reach out with any questions or concerns Kaushal Santiago MD [facility] [place] [phone] * Chris Chong, PT - 02/22/2024 2:42 PM EDT Images from the original note were not included. PHYSICAL THERAPY [facility] Name/MRN: Jose John ([id number]) Date: 02/22/2024 Pt declined to work with therapy this date. PT will re-attempt as able. Pt had dialysis this AM. Chris Chong PT * Donny Landry MD - 02/22/2024 12:07 PM EDT Hospitalist Progress Note 02/22/2024 Subjective: Admit Date: 02/12/2024 PCP: OLENA GABRIEL Room#: [id number] BRIEF HOSPITAL COURSE: Jose John is a 78 y.o. male with history of HTN, CAD s/p CABG, atrial fibrillation, T2DM, ESRD on HD who presented to ED from [facility] on 02/12/24 for acute hypoxic respiratory failure. Staff at rehab noted that he was hypoxic. He was placed on non-rebreather mask by EMS, and then transitioned to DC on arrival to hospital. CXR with pleural effusions, pulmonary vascular congestion. Nephrology consulted. Symptoms improved with fluid removal. Admitted for further evaluation and management. Obtained US-guided Left thoracentesis (02/15). S/p US- guided right thoracentesis (02/18) with drainage of 500 mL of clear yellow fluid. Awaiting SNF placement. Interval History: No overnight issues. Patient sitting up in chair AOx3. States that he feels good today. Reports some back pain that is same but looks very comfortable. Denies fever, chills, chest pain or sob, abdominal pain, N/V. Adult diet Regular; Low Sodium (2 gm); 2000 ml 24HR INTAKE/OUTPUT: Intake/Output Summary (Last 24 hours) at 02/22/2024 1207 Last data filed at 02/22/2024 1118 Gross per 24 hour Intake 1160 ml Output -- Net 1160 ml Past Medical History: History reviewed. No pertinent past medical history. LABS: CBC: Recent Labs 02/21/24 0500 02/22/24 0109 WBC 6.9 6.3 RBC 3.32* 3.00* HGB 9.5* 8.4* HCT 32.4* 28.3* MCV 97.6 94.3 RDW 16.3* 16.2* PLT 229 229 BMP: Recent Labs 02/21/24 0500 02/22/24 0109 NA 138 133* K 4.0 4.1 CL 103 103 CO2 23 22 BUN 24* 35* CREATININE 3.62* 4.49* GLUCOSE 124* 109* CALCIUM 8.7 8.6 ANIONGAP 11 8 LIVER PROFILE:No results for input(s): AST, ALT, BILITOT, ALKPHOS, PROT in the last 72 hours. No lab exists for component: LABALBU PT/INR: No results for input(s): PROTIME, INR in the last 72 hours. CARDIAC ENZYMES: No results for input(s): TROPONINI in the last 72 hours. Procalcitonin: No results found for: PROCAL COVID-19 PCR: No results for input(s): COVID19 in the last 72 hours. Objective: Vitals: BP 152/80 Pulse 82 Temp 36.8 C (98.2 F) Resp 16 Ht 5' 10 (1.778 m) Wt 134 lb (60.8 kg) SpO2 98% BMI 19.23 kg/m Pulse Ox: SpO2 Av.6 % Min: 94 % Max: 98 % Supplemental O2: O2 Flow Rate (L/min): 3 L/min Physical exam: General appearance: No apparent distress, appears stated age, HEENT: Eyes: No scleral icterus Oral: Tongue is semi-moist Cardiovascular: S1/S2 heard, RRR Respiratory: Clear to auscultation bilaterally Abdomen: Soft, non-tender, non-distended bowel sounds positive Musculoskeletal: No obvious deformities seen Skin: No visible rashes or lesions. Medications: Scheduled PRN amiodarone, 200 mg, Oral, Daily aspirin, 81 mg, Oral, Daily atorvastatin, 80 mg, Oral, Daily carvedilol, 3.125 mg, Oral, BID WC collagenase, , Topical, Daily gabapentin, 100 mg, Oral, BID heparin, 5,000 Units, SubCUTAneous, 3 times per day insulin glargine, 7 Units, SubCUTAneous, Nightly insulin lispro, 0-6 Units, SubCUTAneous, TID WC And insulin lispro, 0-6 Units, SubCUTAneous, Nightly Lidocaine, 1 patch, TransDERmal, Daily mirtazapine, 15 mg, Oral, Nightly pantoprazole, 40 mg, Oral, qAM AC sevelamer carbonate, 800 mg, Oral, TID WC tiotropium, 2 puff, Inhalation, Daily PRN medications: acetaminophen OR acetaminophen, collagenase, dextrose, dextrose, glucagon (rDNA), glucose, heparin, heparin, heparin, heparin, ipratropium-albuterol, melatonin, polyethylene glycol (PEG) 3350, QUEtiapine Continuous Assessment Acute, acute on chronic, unstable/uncontrolled chronic problems/diagnoses: # Acute hypoxic respiratory failure likely 2/2 volume overload - CXR showed pleural effusions and pulmonary vascular congestion # ZOFIA on CKD4 and likely now ESRD - Started on C[employer] back on 11/22/23 and monitored forsome recovery but now nephrology feels likely he is ESRD. # Bilateral pleural effusions s/p US-guided right thoracentesis (02/18) - s/p drainage of 500 mL of clear yellow fluid removed by US thoracentesis per IR on 02/18. Also continue fluid removal with dialysis. # Hypotension - improved # Dehiscence of distal MSI - CT Surgery evaluated # Severe malnutrition Stable chronic problems affecting care, new non-acute diagnoses: # HTN # CAD s/p CABG - ASA, statin # Chronic HFrEF # Hx of atrial fibrillation - on amiodarone, coreg 3.125 mg BID # T2DM with hyperglycemia - A1c 6.4% (11/15/23). SSI, BG checks, hypoglycemia protocol Plan As a result of the above findings & factors, the following mgmt was pursued: - Nephrology following. Continuing iHD MWF while here per Nephrology. Recs noted. - Continue chronic medications as able - PT/OT recommended IPR - TCC following for dispo planning. TCC and son aware that patient medically ready for discharge. Son to discuss dispo planning with TCC today around 11 AM - am labs, replace lytes prn - delirium precautions: increase activity and limit nighttime disturbances - DVT prophylaxis: heparin and encourage ambulation Advance Directive: Full Code Anticipated Discharge - Date - TBD - Location - Skilled Facility vs home? - Pending the following - Dispo planning Extended Emergency Contact Information Primary Emergency Contact: John (POA)Deepti Mobile Relation: Spouse Secondary Emergency Contact: JohnJuan Manuel Mobile Relation: Son Preferred language: Romanian Pressing Machine Operator needed? No Donny Landry MD Division of Hospitalist Medicine [facility] * Priscilla Mendez, RD - 02/21/2024 4:21 PM EDT Nutrition Assessment Type and Reason for Visit: Reassess Nutrition Recommendations/Plan: Continue with 2g Na diet with 2000 mls FR. Continue with Ensure Plus. Monitor nutritional status. Malnutrition Assessment: Malnutrition Status: Severe malnutrition Context: Acute Illness Findings of the 6 clinical characteristics of malnutrition: Energy Intake: No significant decrease in energy intake (per patient good appetite and consuming >75%) Weight Loss: Greater than 7.5% over 3 months Body Fat Loss: Moderate body fat loss (/severe) Orbital, Triceps, Fat Overlying Ribs, Buccal region Muscle Mass Loss: Moderate muscle mass loss (/severe) Temples (temporalis), Calf (gastrocnemius), Hand (interosseous), Clavicles (pectoralis & deltoids) Fluid Accumulation: No significant fluid accumulation Substation Maintenance Technician Strength: Not Performed Nutrition Assessment: Pt is a 78-year-old male with PMH of T2DM, HTN, CKD, TIA with no residual (approx 16 years ago), tobacco use (quit 20 years ago), macular degeneration, back surgery, and BPH. Well known to cardiology, had a CABG x4 with Dr. Carlin on 11/21/23. His postop course was prolonged r/t ZOFIA on CKD requiringdialysis, respiratory failure 2/2 aspiration PNA, ICU delirium, and multiple thoracentesis r/t volume overload. He was [facility] to [facility] on POD [facility], [facility] was [facility] from 01/22/24-01/30/24 with SOB and bilateral pleural effusions. Had multiple thoracentesis and completed course of abx for pneumonia. CTS was consulted at that time for small dehiscence of distal MSI, recommended wet-to-dry dressing changes. He was discharged to [facility]. He returned to [facility] ED from [facility] on 02/12/24 with hypoxia, he was saturating 80% on 3L NC. CXR showed pleural effusions and pulmonary congestion. He received extra UF on 02/11 with 3L removed. Patient still with dehiscence of chest wound, CTS and wound care consulted. Nephrology following for HD with last HD; on HD M,W,Fr. Pt is on a 2g Na, 2000 mls FR. Per previous RD note: Patient reported he weighed 153# in November this year. Review of weights in [facility], patient weighed 160# on 11/07/23 with a current standing scale weight of 133# today. Patient has lost ~16.9% in the past [address] noted moderate/severe muscle and fat loss throughout body as well. RD visited pt today, 02/21/24; he endorses good po intake, is consuming some ofthe Ensure Plus (does like it). Estimated Daily Nutrient Needs: Energy Requirements Based On: Kcal/kg Weight Used for Energy Requirements: Current Weight for Energy Calculation (kg): 60.5 kg Total Energy Requirements (kcals/day): 7139-3224 (28-33) Weight Used for Protein Requirements: Current Weight in Kg Used for Protein Requirements: 60.5 kg Estimated Total Protein (g/day): 73-85 (1.2-1.4) Estimated Daily Total Fluid (ml/day): per MD Nutrition Related Findings: +BS, non-pitting edema BLE. Large formed, soft black BM 02/15/24. Wound Type: Surgical Incision Net IO Since Admission: 6,167.9 mL [02/21/24 1621] Current Nutrition Therapies: Adult diet Regular; Low Sodium (2 gm); 2000 ml Current Oral Intake Average Meal Intake: 51-75%, 76-100% Average Supplements Intake: 51-75%, 76-100% Anthropometric Measures: Height: 177.8 cm (5' 10) Current Body Weight: 60.3 kg (133 lb) Weight Source: Standing Scale Admission Body Weight: 61.2 kg (135 lb) (standing scale) Usual Body Weight: 72.6 kg (160 lb) (11/07/23) % Weight Change (Calculated): -16.9 Platter Body Weight (lbs) (Calculated): 166 lbs Platter Body Weight (Kg) (Calculated): 75 kg % Platter Body Weight (Calculated): 80.1 % BMI (kg/m2) (Calculated): 19.1 Wt Readings from Last 10 Encounters: 02/21/24 59.5 kg (131 lb 1.6 oz) 01/28/24 62.2 kg (137 lb 2 oz) 12/25/23 62.3 kg (137 lb 5.6 oz) LABS: Recent Labs 02/21/24 0500 NA 138 K 4.0 CL 103 CO2 23 BUN 24* CREATININE 3.62* GLUCOSE 124* CALCIUM 8.7 Nutrition Diagnosis: Increased nutrient needs related to renal dysfunction as evidenced by wounds, dialysis Severe malnutrition, In context of acute illness or injury related to cardiac dysfunction, renal dysfunction, impaired respiratory function as evidenced by moderate muscle loss, severe muscle loss, moderate loss of subcutaneous fat, severe loss of subcutaneous fat, weight loss (16.9% in 3 months) Nutrition Interventions: Nutrition Education/Counseling: No recommendation at this time Coordination of Nutrition Care: Continue to monitor while inpatient Goals: Goals: Meet at least 75% of estimated needs, by next RD assessment Nutrition Monitoring and Evaluation: Behavioral-Environmental Outcomes: None Identified Food/Nutrient Intake Outcomes: Food and Nutrient Intake, Supplement Intake Physical Signs/Symptoms Outcomes: Biochemical Data, GI Status, Weight, Skin, Nutrition Focused Physical Findings Discharge Planning: Too soon to determine Priscilla Mendez RD[facility] Contact: *[phone] or [employer] Chat * Kaushal Santiago MD - 02/21/2024 12:17 PM EDT Nephrology Progress Note Following for Zofia HD dependent: Patient seen this am no new acute complaints. UOP 200 Current Inpatient Medications: Reviewed on OCT. Vitals: BP 137/57 (BP Location: Right arm, Patient Position: Sitting) Pulse 74 Temp 36.1 C (97 F) (Temporal) Resp 16 Ht 1.778 m (5' 10) Wt 59.5 kg (131 lb 1.6 oz) SpO2 96% BMI 18.81 kg/m BLOOD PRESSURE RANGE: Systolic (24hrs), Av , Min:109 , Max:152 ; Diastolic (24hrs), Av, Min:45, Max:74 24HR INTAKE/OUTPUT: Intake/Output Summary (Last 24 hours) at 02/21/2024 1217 Last data filed at 02/21/2024 0851 Gross per 24 hour Intake 1020 ml Output -- Net 1020 ml Physical exam: NAD breathing comfortably No edema Data: Labs: Recent Labs 02/21/24 0500 WBC 6.9 HGB 9.5* HCT 32.4* MCV 97.6 PLT 229 Recent Labs 02/21/24 0500 NA 138 K 4.0 CL 103 CO2 23 GLUCOSE 124* CALCIUM 8.7 BUN 24* CREATININE 3.62* Assessment and Plan: 78 y.o. male with hx including CAD, DM, HTN who presented from [facility] with respiratory failure. Nephrology following for ZOFIA/CKD. 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 in 11/22/2023 -has been on MWF schedule HTN -BP with control recently Volume -ultrafiltration with HD Electrolytes -stabilization with HD Acid/base -stabilization with HD Anemia -Hgb low at 9.1, stable CKD MBD -Ca low at 8.1 Plan: - iHD continue MWF while here - Daily BMP, Phos, Ca, Albumin 2x weekly while here - Daily nephrocaps while on COTT[employer] - Phos goal 3.5-5.5 - Electrolytes/Acid-Base and Volume as per COTTAGE [employer] -Transfuse for Hg < 7, goal 10-11, continue weekly TONNY - Pharmacy to dose meds for eGFR < 15 - monitor for renal recovery -Noted plans for home now so we will arrange outpatient dialysis with [facility] or Nat Thank you for allowing me to care for pt. Feel free to reach out with any questions or concerns Kaushal Santiago MD [facility] [place] [phone] * Uzair Oakes, AKBAR - 02/21/2024 11:22 AM EDT Images from the original note were not included. OCCUPATIONAL THERAPY [facility] Treatment Note Name/MRN: Jose John ([id number]) Date of : 1945 Age: 78 y.o. Room/Bed: [facility] Discharge Recommendation: IP Rehab, Continue to assess pending progress Assessment Bed mobility SBA. Supv for sitting EOB, UE bathing, min assist for UE and LE dressing as well as LEbathing. Grooming supv. Sit<->stands, standing and transfers min assist. Pt. Is impulsive, poor safety awareness and HIGH risk for falls. Pt. Also fatigues quickly and easily SOB. Pt. Requires rest breaks throughout tx session. Pt. Would benefit from continue therapies to be at indep level. OT continues to recommend IP Rehab at [facility]. Subjective Pt. little agitated with his current medical status and a bit gruff. 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 He's agreeable to OT with encouragement. Pt. Is A & O x 2 with min cues for the date. Pain: 0-10 pain scale: 4/10 Location: back-pt. Declined pain med Medical Precautions: No active isolations Proper PPE donned/doffed in accordance with facility standards. Fall Risk: Chavez Fall Risk Score: 60 (High Risk) Precautions/Restrictions: Lines/Drains/Airways: O2 Bed alarm Family/Caregiver Present: none Objective ADLs- performed at chair level with set up LE Dressing: Min Assist to doff/don pants and socks Toileting: Min Assist for clothing management Grooming: Supervision to use shampoo cap, dry hair and comb. Pt. Also wash/dry hands and face as well as brushed teeth. UE Dressing: Min Assist to doff shirt and don clean [facility] gown UE Bathing: Supervision to wash/dry under arm, chest and stomach. LE Bathing: Min Assist, pt. able to wash groin, upper legs and feet. Min assist to stand and wash buttocks. Pt. Performed ADL in recliner with set up. Bed Mobility-with use of bed ril and HOB elevated 30 degree's. Supine to sit: SBA Rolling to right: Supervision Scooting: Supervision Transfers/Mobility Sit to stand: Min Assist Stand to sit: Contact Guard Stand step: Min Assist Bed to chair: Min Assist Sitting balance: Supervision, SBA sitting EOB-pt. Was attempting to get OOB at the start of OT but bed rail was up on that side of the bed. Standing balance: Min Assist Pt. Stood 2-3 min's x 2 stands and 1-2 min's x 2 stands using FWW. Device(s) used: front wheeled walker Cognition - Arousal/alertness: appropriate responses to stimuli - Following commands: follows one step commands consistently - Attention span: attends with cues to redirect - Memory: appears intact - Safety judgement: decreased awareness of need for assistance and decreased awareness of need for safety - Insights: decreased awareness of deficits - Initiation: requires cues for some - Sequencing: requires cues for some Plan Continue acute OT per plan of care. Safety/Education Safety Safety Devices in place: All fall risk precautions in place, call light within reach, bed alarm in place, left in chair, chair alarm in place, gait belt, patient at risk for falls, nurse notified, and no alarms engaged upon entry Restraints: No Education Education Given To: patient Education Provided: OT Role, Plan of Care, ADL Adaptive Strategies, Transfer Training, Orientation,Fall Prevention Education, and Benefits of Increasing Activity Education Method: Verbal and Demonstration Barriers to Learning: Agitation Education Outcome: Verbalized Understanding, Demonstrated Understanding, and Continued Education Needed AM-PAC AM-PAC Inpatient Daily Activity Raw Score: 21 ADL Inpatient CMS G-Code Modifier: CJ Goals Patient Stated Goal: Encounter Problems Encounter Problems (Active) Balance Patient will maintain dynamic standing balance for 10 minutes with modified independence to promoteendurance needed for safe functional mobility (Progressing) Start: 02/13/24 Expected End: 03/12/24 Bathing Patient will utilize adaptive techniques to bathe body with independence (Progressing) Start: 02/13/24 Expected End: 03/12/24 Dressings Lower Extremities Patient will dress lower body with independence (Progressing) Start: 02/13/24 Expected End: 03/12/24 Grooming Patient will complete daily grooming tasks while standing at sink with independence (Progressing) Start: 02/13/24 Expected End: 03/12/24 Toileting Patient will complete toileting tasks at standard toilet with independence. (Progressing) Start: 02/13/24 Expected End: 03/12/24 Therapy Time Individual Co-treatment Time In 1022 Time Out 1114 Minutes 52 Timed Code Treatment Minutes: 52 Minutes (ther act-1, selfcare-2) RAFFY Vega * Chris Chong, PT - 02/21/2024 10:15 AM EDT Images from the original note were not included. PHYSICAL THERAPY [facility] Treatment Note Name/MRN: Jose John ([id number]) Date of : 1945 Age: 78 y.o. Room/Bed: [facility] Discharge Recommendation: Continue to assess pending progress, IP Rehab Equipment Needed: (tbd) Other: tbd FWW Assessment The pt is continuing to make progress towards his goals and will continue to benefit from therapy to improve his overall functional capacity. The pt would benefit from 15 hours of therapy a week, andhe would be able to participate with intense therapies. IP REHAB is recommended at discharge. SBA to Min assist was required for mobility. Pt did present with decreased endurance and required rest breaks with ambulation. Cognitive deficits regarding time line of events were present when pt was describing recent events. Increased time was needed for initial transfer and several attempts. Pt did have one + LOB while ambulating and required min assist to correct while ambulating. Several episodes of unsteadiness were observed. Subjective Pt sitting at EOB and agreed to PT. Pt would like to go for a walk. Pain: sciatic pain no rating. Medical Precautions: No active isolations Proper PPE donned/doffed in accordance with facility standards. Fall Risk: Chavez Fall Risk Score: 60 (High Risk) Precautions/Restrictions: Lines/Drains/Airways: O2 Bed alarm Overall Cognitive Status: Exceptions - Memory: decreased recall of recent events - Safety judgement: decreased awareness of need for assistance and decreased awareness of need for safety - Problem solving: decreased awareness of errors Overall Orientation Status: Oriented to Place, Oriented to Situation, and Oriented to Person pt oriented to month and year but not exact date. Family/Caregiver Present: none Objective Bed Mobility Scooting: Supervision, along EOB with use of UE. Transfers/Mobility Sit to stand: Contact Guard Stand to sit: SBA 3 trials from EOB to a FWW, pt progressed to SBA for second and third trial Device(s) used: FWW for first and second trial, no device for third trial. Ambulation Ambulation 1 Assistive device(s) used: front wheeled walker Assist level: Min Assist Distance (ft): 80 ft x 2 with standing rest break Quality of gait: decreased velocity, decreased step length, decreased step height, head down, increased weight on UE, unsteadiness observed, Ambulation 2 Assistive device(s) used: front wheeled walker Assist level: Min Assist Distance (ft): 190 ft total with standing rest breaks as needed. Quality of gait: decreased velocity and step height and length, increased weight on UE, head down, walker to far anterior to SYDNI, + LOB with assist to correct. Posture: fair Sitting - Static: Independent Sitting - Dynamic: Supervision Standing - Static: Contact Guard Standing - Dynamic: Min Assist Plan Continue acute PT per plan of care. Safety/Education Safety Safety Devices in place: call light within reach, bed alarm in place, gait belt, nurse notified, patient left sitting EOB, and wound care in room upon PT exit Restraints: No Education Education Given To: patient Education Provided: PT Role, PT Goals, Gait Training, Plan of Care, and Transfer Training Education Method: Verbal Barriers to Learning: Cognition Education Outcome: Verbalized Understanding and Continued Education Needed Outcome Measures AM-PAC AM-PAC Inpatient Mobility Raw Score (No Stairs) : 17 JH-HLM JH-HLM Score: Walked 250 ft or more (i.e. several laps on unit) Goals Patient Stated Goal: to get stronger and walk more Encounter Problems Encounter Problems (Active) Mobility Patient will ambulate 150 feet with independence and least restrictive device in order to improve safety and independence with mobility. (Progressing) Start: 02/13/24 Expected End: 02/27/24 Patient will ascend and descend 2 stairs with least restrictive device and independence in order tosafely negotiate home. (Not Addressed) Start: 02/13/24 Expected End: 02/27/24 Pain - Adult Transfers Patient will perform bed mobility with independence in order to improve independence and prepare for out of bed mobility. (Progressing) Start: 02/13/24 Expected End: 02/27/24 Patient will complete functional transfer with least restrictive device with independence in order to prepare for ambulation. (Progressing) Start: 02/13/24 Expected End: 02/27/24 Therapy Time Individual Co-treatment Time In 0808 (two gait) Time Out 0831 Minutes 23 Timed Code Treatment Minutes: 23 Minutes Chris Chong PT * Thai Landry MD - 02/21/2024 10:05 AM EDT Hospitalist Progress Note 02/21/2024 Subjective: Admit Date: 02/12/2024 PCP: OLENA GABRIEL Room#: [id number] B BRIEF HOSPITAL COURSE: Jose John is a 78 y.o. male with history of HTN, CAD s/p CABG, atrial fibrillation, T2DM, ESRD on HD who [facility] for acute hypoxic respiratory failure. Staff at rehab noted that he was hypoxic. He was placed on non-rebreather mask by EMS, and then transitioned to DC on arrival to hospital. CXR with pleural effusions, pulmonary vascular congestion. Nephrology consulted. Symptoms improved with fluid removal. Admitted for further evaluation and management. Obtained US-guided Left thoracentesis (02/15). S/p US- guided right thoracentesis (02/18) with drainage of 500 mL of clear yellow fluid. Awaiting SNF placement. Interval History: No overnight issues. Patient sitting up in chair eating burger and fries, AOx3. States that he feels better today. Reports some back pain, but states that it is improved from yesterday. Denies fever,chills, chest pain, abdominal pain, N/V. Case and plan discussed with patient, bedside nurse, and TCC. Questions answered. Discussed with son and TCC via phone in TCC office. Patient's current clinical condition as well ascase and plan briefly discussed with son. Adult diet Regular; Low Sodium (2 gm); 2000 ml 24HR INTAKE/OUTPUT: Intake/Output Summary (Last 24 hours) at 02/21/2024 1005 Last data filed at 02/21/2024 0851 Gross per 24 hour Intake 1020 ml Output -- Net 1020 ml Past Medical History: History reviewed. No pertinent past medical history. LABS: CBC: Recent Labs 02/21/24 0500 WBC 6.9 RBC 3.32* HGB 9.5* HCT 32.4* MCV 97.6 RDW 16.3* PLT 229 BMP: Recent Labs 02/21/24 0500 NA 138 K 4.0 CL 103 CO2 23 BUN 24* CREATININE 3.62* GLUCOSE 124* CALCIUM 8.7 ANIONGAP 11 LIVER PROFILE:No results for input(s): AST, ALT, BILITOT, ALKPHOS, PROT in the last 72 hours. No lab exists for component: LABALBU PT/INR: No results for input(s): PROTIME, INR in the last 72 hours. CARDIAC ENZYMES: No results for input(s): TROPONINI in the last 72 hours. Procalcitonin: No results found for: PROCAL COVID-19 PCR: No results for input(s): COVID19 in the last 72 hours. Objective: Vitals: BP 128/68 (BP Location: Right arm, Patient Position: Sitting) Pulse 77 Temp 36 C (96.8 F) (Temporal) Resp 18 Ht 5' 10 (1.778 m) Wt 131 lb 1.6 oz (59.5 kg) SpO2 94% BMI 18.81 kg/m Pulse Ox: SpO2 Av % Min: 90 % Max: 98 % Supplemental O2: O2 Flow Rate (L/min): 3 L/min Physical Exam Constitutional: General: He is not in acute distress. Appearance: He is not toxic-appearing. HENT: Head: Normocephalic. Right Ear: External ear normal. Left Ear: External ear normal. Eyes: Extraocular Movements: Extraocular movements intact. Cardiovascular: Rate and Rhythm: Normal rate and regular rhythm. Pulmonary: Effort: Pulmonary effort is normal. No respiratory distress. Abdominal: General: Bowel sounds are normal. Palpations: Abdomen is soft. Tenderness: There is no abdominal tenderness. Skin: General: Skin is warm and dry. Neurological: Mental Status: He is alert and oriented to person, place, and time. Medications: Scheduled PRN amiodarone, 200 mg, Oral, Daily aspirin, 81 mg, Oral, Daily atorvastatin, 80 mg, Oral, Daily carvedilol, 3.125 mg, Oral, BID WC collagenase, , Topical, Daily gabapentin, 100 mg, Oral, BID heparin, 5,000 Units, SubCUTAneous, 3 times per day insulin glargine, 7 Units, SubCUTAneous, Nightly insulin lispro, 0-6 Units, SubCUTAneous, TID WC And insulin lispro, 0-6 Units, SubCUTAneous, Nightly Lidocaine, 1 patch, TransDERmal, Daily mirtazapine, 15 mg, Oral, Nightly pantoprazole, 40 mg, Oral, qAM AC sevelamer carbonate, 800 mg, Oral, TID WC tiotropium, 2 puff, Inhalation, Daily PRN medications: acetaminophen OR acetaminophen, collagenase, dextrose, dextrose, glucagon (rDNA), glucose, heparin, heparin, heparin, heparin, ipratropium-albuterol, melatonin, polyethylene glycol (PEG) 3350, QUEtiapine Continuous Assessment Acute, acute on chronic, unstable/uncontrolled chronic problems/diagnoses: # Acute hypoxic respiratory failure likely 2/2 volume overload - CXR showed pleural effusions and pulmonary vascular congestion # ZOFIA on CKD4 and likely now ESRD # Bilateral pleural effusions s/p US-guided right thoracentesis (02/18) - drainage of 500 mL of clear yellow fluid # Hypotension, improved # Dehiscence of distal MSI - CT Surgery evaluated Stable chronic problems affecting care, new non-acute diagnoses: # HTN # CAD s/p CABG - ASA, statin # HFrEF # Hx of atrial fibrillation - on amiodarone, coreg 3.125 mg BID # T2DM with hyperglycemia - A1c 6.4% (11/15/23). SSI, BG checks, hypoglycemia protocol Plan As a result of the above findings & factors, the following mgmt was pursued: - Nephrology following. Continuing iHD MWF while here per Nephrology. Recs noted. - Continue chronic medications as able - PT/OT recommended IPR - TCC following for dispo planning. Discussed with TCC and son today that patient medically ready for discharge. Son to discuss dispo planning with TCC tomorrow around 11 AM after discussing with family. - am labs, replace lytes prn - delirium precautions: increase activity and limit nighttime disturbances - DVT prophylaxis: heparin and encourage ambulation Advance Directive: Full Code Anticipated Discharge - Date - TBD - Location - Skilled Facility vs home? - Pending the following - Dispo planning Extended Emergency Contact Information Primary Emergency Contact: Deepti John (POA) Mobile Relation: Spouse Secondary Emergency Contact: Juan Manuel John Mobile Relation: Son Preferred language: Romanian Pressing Machine Operator needed? No Thai Landry MD Division of Hospitalist Medicine [facility] * Chuy Nava, MALINA - INTEGRATION ENGINEER - 02/21/2024 8:32 AM EDT Images from the original note were not included. [facility] Wound Care Progress Note Jose John AGE: 78 y.o. GENDER: male : 1945 Subjective: HISTORY of PRESENT ILLNESS HPI Jose John is a 78 y.o. male who presents for a wound follow up. HPI: Patient with past medical history of CAD, DM, HTN and ESRD on HD who presented to ED for respiratory failure. Patient had been seen by rehab when staff noted there that he was hypoxic. Patient does not typically use any home O2. Patient pleasant and cooperative to wound assessment. Wound Care consulted for CABG Wound. Treatment applied per wound care service. Patient sitting on side of bed at time of visit. PAST MEDICAL HISTORY History reviewed. No pertinent past medical history. PAST SURGICAL HISTORY History reviewed. No pertinent surgical history. FAMILY HISTORY No family history on file. SOCIAL HISTORY Social History Tobacco Use Smoking status: Former Types: Cigarettes Smokeless tobacco: Never Substance Use Topics Alcohol use: Not Currently ALLERGIES Allergies Allergen Reactions Lisinopril Wheezing Penicillins Anaphylaxis Sulfa Antibiotics Anaphylaxis Levofloxacin Nausea Only MEDICATIONS No current facility-administered medications on file prior to encounter. Current Outpatient Medications on File Prior to Encounter Medication Sig Dispense Refill acetaminophen (Tylenol) 325 MG tablet Take 650 mg by mouth every 6 hours as needed for mild pain (1-3). amiodarone (Pacerone) 200 MG tablet Take 1 tablet (200 mg) by mouth daily. 0 aspirin 81 MG chewable tablet Chew 1 tablet (81 mg) daily. 0 atorvastatin (Lipitor) 80 MG tablet Take 1 tablet (80 mg) by mouth daily. 0 carvedilol (Coreg) 3.125 MG tablet Take 3.125 mg by mouth in the morning and 3.125 mg in the evening. Take with meals. gabapentin (Neurontin) 100 MG capsule Take 1 capsule (100 mg) by mouth 2 times daily. 0 glucose (Glutose) 40 % gel oral gel Take 15 g by mouth as needed for low blood sugar. Hypoglycemia insulin glargine (Lantus) 100 UNIT/ML injection Inject 7 Units under the skin Nightly. ipratropium-albuterol (Duo-Neb) 0.5-2.5 mg/3 mL nebulizer solution Take 3 mL by nebulization 3 times daily as needed for wheezing or shortness of breath. (Patient taking differently: Take 3 mL by nebulization every 6 hours as needed for wheezing or shortness of breath.) 0 Melatonin 3 MG capsule Take 6 mg by mouth Nightly. midodrine (Proamatine) 2.5 MG tablet Take 2.5 mg by mouth 3 times daily as needed. Prior to OT/PT Hold for SBP >120 mirtazapine (Remeron) 15 MG tablet Take 15 mg by mouth Nightly. pantoprazole (ProtoNix) 40 MG EC tablet Take 40 mg by mouth every morning (before breakfast). Do not crush, chew, or split. polyethylene glycol, PEG, 3350 (Miralax) 17 g packet Take 17 g by mouth daily. QUEtiapine (SEROquel) 25 MG tablet Take 0.5 tablets (12.5 mg) by mouth every 8 hours as needed (Confusion, agitation). 1 tablet 0 sevelamer carbonate (Renvela) 800 MG tablet Take 800 mg by mouth in the morning and 800 mg at noon and 800 mg in the evening. Take with meals. Swallow tablet whole; do not crush, break, or chew.. tiotropium (Spiriva Respimat) 2.5 MCG/ACT inhaler Inhale 2 puffs daily. 1 each 11 [DISCONTINUED] linaGLIPtin (Tradjenta) 5 MG tablet test 30 tablet 0 REVIEW OF SYSTEMS Pertinent items are noted in HPI. Objective: BP 128/68 (BP Location: Right arm, Patient Position: Sitting) Pulse 77 Temp 36 C (96.8 F) (Temporal) Resp 18 Ht 1.778 m (5' 10) Wt 59.5 kg (131 lb 1.6 oz) SpO2 94% BMI 18.81 kg/m PHYSICAL EXAM General appearance: in no apparent distress Skin: warm and dry Pulmonary: Normal effort, no respiratory distress, no cyanosis Abdomen: soft, nontender, and nondistended Sternum: 4t5htar cm. Wound bed with small pink tissue and and large slough. Small amount of serous drainage. Elana-wound intact and fragile. LABS CBC: Lab Results Component Value Date WBC 6.9 02/21/2024 HGB 9.5 (L) 02/21/2024 HCT 32.4 (L) 02/21/2024 MCV 97.6 02/21/2024 PLT 229 02/21/2024 BMP: Lab Results Component Value Date NA 138 02/21/2024 K 4.0 02/21/2024 CL 103 02/21/2024 CO2 23 02/21/2024 BUN 24 (H) 02/21/2024 CREATININE 3.62 (H) 02/21/2024 PT/INR: No results found for: PROTIME, INR Prealbumin: No results found for: PREALBUMIN Albumin:No components found for: LABALBU Sed Rate:No results found for: SEDRATE Micro: No components found for: BC Assessment/Plan: Sternum NHSW (dehiscence) - Cleanse with NS, apply Santyl to wound bed, lightly pack with mesalt. Cover with foam dressing. Change Daily and PRN Nutritional support Wound Care to follow Recommend to follow up at [facility] after hospital discharge. Any questions or concerns please secure chat [facility] wound/ostomy. Thank you for the consult! I personally obtained the alexandre and critical portions of the history and physical exam. I reviewed the labs, imaging studies, and electronic medical record. I reviewed the chart documentation and discussed the patient with treatment team members. I have edited the note to reflect my clinical findingsand my assessment and plan. Please note, the time of this note does not reflect the time I saw thispatient today, but the time of this documentaton. Portions of this note including HPI, ROS, impression/plan, and examination may have been copied forward from admission to today as to provide important historical information essential in contributing to medical decision making. Documentation has been reviewed and edited as necessary to support clinical decision making for today's visit and to reflect my own independent evaluation of this patient. Decision making for today's visit and to reflectmy own independent evaluation of this patient. * Kaushal Santiago MD - 02/20/2024 3:41 PM EDT Nephrology Progress Note Following for Zofia HD dependent: Patient seen this am after iHD, tolerated well, endorsing some pelvic/leg pain after. Primary also in the room. Current Inpatient Medications: Reviewed on OCT. Vitals: BP 121/73 (BP Location: Right arm, Patient Position: Sitting) Pulse 70 Temp 36.4 C (97.5 F) (Temporal) Resp 17 Ht 1.778 m (5' 10) Wt 59.6 kg (131 lb 6.4 oz) SpO2 96% BMI 18.85 kg/m BLOOD PRESSURE RANGE: Systolic (24hrs), Av , Min:83 , Max:179 ; Diastolic (24hrs), Av, Min:40, Max:89 24HR INTAKE/OUTPUT: Intake/Output Summary (Last 24 hours) at 02/20/2024 1541 Last data filed at 02/20/2024 1321 Gross per 24 hour Intake 760 ml Output 500 ml Net 260 ml Physical exam: NAD breathing comfortably No edema Data: Labs: No results for input(s): WBC, HGB, HCT, MCV, PLT in the last 72 hours. Recent Labs 02/18/24 0140 NA 133* K 4.3 CL 102 CO2 27 GLUCOSE 128* CALCIUM 8.6 BUN 41* CREATININE 5.35* Assessment and Plan: 78 y.o. male with hx including CAD, DM, HTN who presented from [facility] with respiratory failure. Nephrology following for ZOFIA/CKD. 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 in 11/22/2023 -has been on MWF schedule HTN -BP with control recently Volume -ultrafiltration with HD Electrolytes -stabilization with HD Acid/base -stabilization with HD Anemia -Hgb low at 9.1, stable CKD MBD -Ca low at 8.1 Plan: - s/p iHD today, continue MWF while here - Daily BMP, Phos, Ca, Albumin 2x weekly while here - Daily nephrocaps while on [employer] - Phos goal 3.5-5.5 - Electrolytes/Acid-Base and Volume as per [employer] -Transfuse for Hg < 7, goal 10-11, continue weekly TONNY - Pharmacy to dose meds for eGFR < 15 -Noted plans for home now so we will arrange outpatient dialysis with [facility] Andre or Nat Thank you for allowing me to care for pt. Feel free to reach out with any questions or concerns Kaushal Santiago MD [facility] [place] [phone] * Thai Landry MD - 02/20/2024 1:38 PM EDT Hospitalist Progress Note 02/20/2024 Subjective: Admit Date: 02/12/2024 PCP: OLENA GABRIEL Room#: [id number] B BRIEF HOSPITAL COURSE: Jose John is a 78 y.o. male with history of HTN, CAD s/p CABG, atrial fibrillation, T2DM, ESRD on HD who presented to ED from [facility] on 02/12/24 for acute hypoxic respiratory failure. Staff at rehab noted that he was hypoxic. He was placed on non-rebreather mask by EMS, and then transitioned to DC on arrival to hospital. CXR with pleural effusions, pulmonary vascular congestion. Nephrology consulted. Symptoms improved with fluid removal. Admitted for further evaluation and management. Obtained US-guided Left thoracentesis (02/15). S/p US-guided right thoracentesis (02/18) with drainage of 500 mL of clear yellow fluid. Awaiting SNF placement. Interval History: No overnight issues. Patient seen after returning from [facility] this afternoon. Reports some pelvic, leg, and back pain. Denies fever, chills, chest pain, abdominal pain, N/V. Case and plan discussed withpatient, bedside nurse, and TCC. Questions answered. Adult diet Regular; Low Sodium (2 gm); 2000 ml 24HR INTAKE/OUTPUT: Intake/Output Summary (Last 24 hours) at 02/20/2024 1338 Last data filed at 02/20/2024 1321 Gross per 24 hour Intake 760 ml Output 500 ml Net 260 ml Past Medical History: History reviewed. No pertinent past medical history. LABS: CBC: No results for input(s): WBC, RBC, HGB, HCT, MCV, RDW, PLT in the last 72 hours. BMP: Recent Labs 02/18/24 0140 NA 133* K 4.3 CL 102 CO2 27 BUN 41* CREATININE 5.35* GLUCOSE 128* CALCIUM 8.6 ANIONGAP 4 LIVER PROFILE:No results for input(s): AST, ALT, BILITOT, ALKPHOS, PROT in the last 72 hours. No lab exists for component: LABALBU PT/INR: No results for input(s): PROTIME, INR in the last 72 hours. CARDIAC ENZYMES: No results for input(s): TROPONINI in the last 72 hours. Procalcitonin: No results found for: PROCAL COVID-19 PCR: No results for input(s): COVID19 in the last 72 hours. Objective: Vitals: BP 114/55 Pulse 67 Temp 36.4 C (97.6 F) Resp 16 Ht 5' 10 (1.778 m) Wt 131 lb 6.4oz (59.6 kg) SpO2 90% BMI 18.85 kg/m Pulse Ox: SpO2 Av.3 % Min: 90 % Max: 97 % Supplemental O2: O2 Flow Rate (L/min): 3 L/min Physical Exam Constitutional: General: He is not in acute distress. Appearance: He is not toxic-appearing. HENT: Head: Normocephalic. Right Ear: External ear normal. Left Ear: External ear normal. Eyes: Extraocular Movements: Extraocular movements intact. Cardiovascular: Rate and Rhythm: Normal rate and regular rhythm. Pulmonary: Effort: Pulmonary effort is normal. No respiratory distress. Abdominal: General: Bowel sounds are normal. Palpations: Abdomen is soft. Tenderness: There is no abdominal tenderness. Skin: General: Skin is warm and dry. Neurological: Mental Status: He is alert and oriented to person, place, and time. Psychiatric: Mood and Affect: Affect is tearful. Medications: Scheduled PRN amiodarone, 200 mg, Oral, Daily aspirin, 81 mg, Oral, Daily atorvastatin, 80 mg, Oral, Daily carvedilol, 3.125 mg, Oral, BID WC collagenase, , Topical, Daily gabapentin, 100 mg, Oral, BID heparin, 5,000 Units, SubCUTAneous, 3 times per day insulin glargine, 7 Units, SubCUTAneous, Nightly insulin lispro, 0-6 Units, SubCUTAneous, TID WC And insulin lispro, 0-6 Units, SubCUTAneous, Nightly mirtazapine, 15 mg, Oral, Nightly pantoprazole, 40 mg, Oral, qAM AC sevelamer carbonate, 800 mg, Oral, TID WC tiotropium, 2 puff, Inhalation, Daily PRN medications: acetaminophen OR acetaminophen, collagenase, dextrose, dextrose, glucagon (rDNA), glucose, heparin, heparin, heparin, heparin, ipratropium-albuterol, melatonin, polyethylene glycol (PEG) 3350, QUEtiapine Continuous Assessment Acute, acute on chronic, unstable/uncontrolled chronic problems/diagnoses: # Acute hypoxic respiratory failure likely 2/2 volume overload - CXR showed pleural effusions and pulmonary vascular congestion # ZOFIA on CKD4 and likely now ESRD # Bilateral pleural effusions s/p US-guided right thoracentesis (02/18) - drainage of 500 mL of clear yellow fluid # Hypotension, improved # Dehiscence of distal MSI - CT Surgery evaluated Stable chronic problems affecting care, new non-acute diagnoses: # HTN # CAD s/p CABG - ASA, statin # HFrEF # Hx of atrial fibrillation - on amiodarone, coreg 3.125 mg BID # T2DM with hyperglycemia - A1c 6.4% (11/15/23). SSI, BG checks, hypoglycemia protocol Plan As a result of the above findings & factors, the following mgmt was pursued: - Nephrology following. S/p iHD today and continuing MWF while here per Nephrology. Recs noted. - Continue chronic medications as able - PT/OT - TCC following for dispo planning - am labs, replace lytes prn - delirium precautions: increase activity and limit nighttime disturbances - DVT prophylaxis: heparin and encourage ambulation Advance Directive: Full Code Anticipated Discharge - Date - TBD - Location - Skilled Facility? - Pending the following - Awaiting SNF choices and placement Extended Emergency Contact Information Primary Emergency Contact: Deepti John (POA) Mobile Relation: Spouse Secondary Emergency Contact: Juan Manuel Jhon Mobile Relation: Son Preferred language: Romanian Pressing Machine Operator needed? No Thai Landry MD Division of Hospitalist Medicine [facility] * Donny Landry MD - 02/19/2024 2:03 PM EDT Hospitalist Progress Note 02/[id number]/[id number]: Please page me ([phone]) for patient care issues. [id number]: Please page [facility] Hospitalist for any issues. Subjective: Admit Date: 02/12/2024 PCP: OLENA GABRIEL Room#: W5-526/W5-526 B Brief interval history: Jose is a 78 y.o. male with past medical history of CAD, DM, HTN and ESRD on HD who presented to ED for respiratory failure. Patient had been seen by rehab when staff noted there that he was hypoxic. Patient does not typically use any home O2. Placed him on 6 L nonrebreather and called EMS. EMS remove the nonrebreather and put him on 3 L nasal cannula and brought him to the ED. Here he is saturating 80% on 3 L but when increased to 6 L O2 sat normalized. Has shortness of breath but denies any chest pain, fever, chills, abdominal pain. He is ESRD on dialysis and receives this Sunday. Last session was yesterday. In ED transition to 8 L and saturating at 99 to 100%. He received ultrafiltration/HD Interval History: No overnight issues. Denies chest pain or sob. No abdominal pain, nausea, vomiting. No fevers or chills. Adult diet Regular; Low Sodium (2 gm); 2000 ml @[id number]@ 24HR INTAKE/OUTPUT: Intake/Output Summary (Last 24 hours) at 02/19/2024 1403 Last data filed at 02/19/2024 0800 Gross per 24 hour Intake 940 ml Output 0 ml Net 940 ml Past Medical History: History reviewed. No pertinent past medical history. LABS: CBC: No results for input(s): WBC, RBC, HGB, HCT, MCV, RDW, PLT in the last 72 hours. BMP: Recent Labs 02/18/24 0140 NA 133* K 4.3 CL 102 CO2 27 BUN 41* CREATININE 5.35* GLUCOSE 128* CALCIUM 8.6 ANIONGAP 4 LIVER PROFILE:No results for input(s): AST, ALT, BILITOT, ALKPHOS, PROT in the last 72 hours. No lab exists for component: LABALBU PT/INR: No results for input(s): PROTIME, INR in the last 72 hours. CARDIAC ENZYMES: No results for input(s): TROPONINI in the last 72 hours. Procalcitonin: No results found for: PROCAL COVID-19 PCR: No results for input(s): COVID19 in the last 72 hours. Objective: Vitals: BP 160/72 (BP Location: Right arm, Patient Position: Lying) Pulse 67 Temp 36.8 C (98.2 F) (Temporal) Resp 18 Ht 5' 10 (1.778 m) Wt 132 lb 1.6 oz (59.9 kg) SpO2 96% BMI 18.95 kg/m Pulse Ox: SpO2 Av.9 % Min: 92 % Max: 98 % Supplemental O2: O2 Flow Rate (L/min): 3 L/min General appearance: No apparent distress, appears stated age, HEENT: Eyes: No scleral icterus Oral: Tongue is semi-moist Cardiovascular: S1/S2 heard, RRR Respiratory: Clear to auscultation bilaterally Abdomen: Soft, non-tender, non-distended bowel sounds positive Musculoskeletal: No obvious deformities seen Skin: No visible rashes or lesions. Medications: amiodarone, 200 mg, Oral, Daily aspirin, 81 mg, Oral, Daily atorvastatin, 80 mg, Oral, Daily carvedilol, 3.125 mg, Oral, BID WC collagenase, , Topical, Daily gabapentin, 100 mg, Oral, BID heparin, 5,000 Units, SubCUTAneous, 3 times per day insulin glargine, 7 Units, SubCUTAneous, Nightly insulin lispro, 0-6 Units, SubCUTAneous, TID WC And insulin lispro, 0-6 Units, SubCUTAneous, Nightly mirtazapine, 15 mg, Oral, Nightly pantoprazole, 40 mg, Oral, qAM AC sevelamer carbonate, 800 mg, Oral, TID WC tiotropium, 2 puff, Inhalation, Daily Assessment Acute, acute on chronic, unstable/uncontrolled chronic problems/diagnoses: # Acute hypoxic respiratory failure likely due to volume overload - - cxr showed Pleural effusions and pulmonary vascular congestion # ZOFIA on CKD stage 4 but now likely ESRD - Started on COTTAGE [employer]ER back on 11/22/23 and monitored from some recovery but now nephrology feels likely he is ESRD. # Bilateral moderate Pleural effusion L>R - s/p 500mL of clear yellow fluid removed by US thoracentesis per IR on 02/18. Also continue fluid removal with dialysis. # Hypotension # Severe malnutrition Stable chronic problems affecting care, new non-acute diagnoses: # CAD with hx of CABG with Sternotomy dehiscense of distal incision # DM type 2 # ESRD on HD # HTN Plan -s/p thoracentesis this am with removal of 500ml per IR -continue dialysis as per renal -strict I/Os and daily weight -check daily labs -spoke with SW today Lisbeth who states plan had been for pt to return to [facility] but he no longer qualifies due to walking too well with therapy. Pt and daughter both upset about this and do not have a solid dc plan at this time- daughter talking to other family members to figure it out and I will need to set up outpatient dialysis as a new pt as he has not had dialysis yet in community Extended Emergency Contact Information Primary Emergency Contact: Deepti John (POA) Mobile Relation: Spouse Secondary Emergency Contact: JohnJuan Manuel Mobile Relation: Son Preferred language: Romanian Pressing Machine Operator needed? No Donny Landry MD Division of Hospitalist Medicine Inpatient Medical Services/[facility] [place] PAGER: Epic chat * Argelia Khalil, - 02/19/2024 1:09 PM EDT Nephrology Progress Note Following for Zofia HD dependent: Breathing comfortably Had some nausea with dialysis yesterday and was given Zofran Current Inpatient Medications: Reviewed on OCT. Vitals: BP 160/72 (BP Location: Right arm, Patient Position: Lying) Pulse 67 Temp 36.8 C (98.2 F) (Temporal) Resp 18 Ht 1.778 m (5' 10) Wt 59.9 kg (132 lb 1.6 oz) SpO2 96% BMI 18.95 kg/m BLOOD PRESSURE RANGE: Systolic (24hrs), Av , Min:105 , Max:169 ; Diastolic (24hrs), Av, Min:44, Max:88 24HR INTAKE/OUTPUT: Intake/Output Summary (Last 24 hours) at 02/19/2024 1309 Last data filed at 02/19/2024 0800 Gross per 24 hour Intake 1180 ml Output 0 ml Net 1180 ml Physical exam: NAD breathing comfortably No edema Data: Labs: No results for input(s): WBC, HGB, HCT, MCV, PLT in the last 72 hours. Recent Labs 02/18/24 0140 NA 133* K 4.3 CL 102 CO2 27 GLUCOSE 128* CALCIUM 8.6 BUN 41* CREATININE 5.35* Assessment and Plan: 78 y.o. male with hx including CAD, DM, HTN who presented from [facility] with respiratory failure. Nephrology following for ZOFIA/CKD. 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 in 11/22/2023 -has been on MWF schedule HTN -BP with control recently Volume -ultrafiltration with HD Electrolytes -stabilization with HD Acid/base -stabilization with HD Anemia -Hgb low at 9.1, stable CKD MBD -Ca low at 8.1 Plan: -continue HD on MWF schedule -HD tomorrow -Zofran for nausea -Noted plans for home now so we will arrange outpatient dialysis with [facility] Andre or Nat Thank you for allowing me to care for pt. Feel free to reach out with any questions or concerns Argelia Khalil DO [facility] [place] [phone] * Dora Madden, MANAGER OF PROJECT MANAGEMENT - INTEGRATION ENGINEER - 02/19/2024 12:36 PM EDT Images from the original note were not included. Cardiothoracic Surgery Progress Note PATIENT NAME: Jose John DATE: 02/19/24 HPI: 78 yo male with PMH of T2DM, HTN, CKD, TIA with no residual (approx 16 years ago), tobacco use (quit 20 years ago), macular degeneration, back surgery, and BPH. He is well known to our service, had aCABG x4 with Dr. Carlin on 11/21/23. His postop course was prolonged r/t ZOFIA on CKD requiring dialysis, respiratory failure 2/2 aspiration PNA, ICU delirium, and multiple thoracentesis r/t volume overload. He was discharged to [facility] on POD #34, was transferred to [facility]. He was readmitted from 01/22/24-01/30/24 with SOB and bilateral pleural effusions. Had multiple thoracentesis and completed course of abx for pneumonia. CTS was consulted at that time for small dehiscence of distal MSI, recommended wet-to-dry dressing changes. He was discharged to [facility]. He returned to [facility] ED from [facility] on 02/12/24 with hypoxia, he was saturating 80% on 3L NC. CXR showed pleural effusions and pulmonary congestion. He received extra UF on 02/11 with 3L removed. CTS consulted for distal MSI wound. Interval History: 02/19/24: Patient sitting up in bed, alert and oriented today. Had thoracentesis earlier today [id number] mL removed. Patient upset about discharge plan. Review of Systems Constitutional: Positive for activity change, appetite change and fatigue. Negative for diaphoresisand fever. Respiratory: Positive for shortness of breath. Negative for cough and wheezing. Cardiovascular: Negative for chest pain, palpitations and leg swelling. Gastrointestinal: Negative for abdominal distention, abdominal pain, nausea and vomiting. Musculoskeletal: Positive for back pain. Skin: Positive for wound. Negative for rash. Objective: Vitals: BP: 160/72, MAP (mmHg): 101, BP Method: Automatic Heart Rate: 67 Resp: 18 Temp: 36.8 C (98.2 F), Temp Source: Temporal BMI (Calculated): 18.95 BMP: Recent Labs 02/18/24 0140 NA 133* K 4.3 CL 102 CO2 27 BUN 41* CREATININE 5.35* CALCIUM 8.6 CBC: No results for input(s): WBC, HGB, HCT, PLT, MCV, RDW in the last 72 hours. INR: No results for input(s): INR in the last 72 hours. Physical Exam Constitutional: General: He is awake. Interventions: Nasal cannula in place. Cardiovascular: Rate and Rhythm: Normal rate and regular rhythm. Heart sounds: Normal heart sounds. No murmur heard. No friction rub. Pulmonary: Effort: Pulmonary effort is normal. Breath sounds: Decreased breath sounds present. No wheezing or rhonchi. Abdominal: General: Bowel sounds are normal. There is no distension. Palpations: Abdomen is soft. Tenderness: There is no abdominal tenderness. Musculoskeletal: Right lower leg: No edema. Left lower leg: No edema. Skin: General: Skin is warm and dry. Capillary Refill: Capillary refill takes less than 2 seconds. Findings: Bruising and ecchymosis present. Comments: Distal MSI open, decreased amount of slough tissue over wound bed. Neurological: Mental Status: He is alert and oriented to person, place, and time. Psychiatric: Attention and Perception: Attention normal. Mood and Affect: Mood normal. Behavior: Behavior is cooperative. Assessment: Dehiscence of distal MSI Multivessel CAD s/p CABG HFrEF (35% 11/2023) ESRD Bilateral pleural effusions Plan: - Continue dressing changes per wound care recs - santyl to wound bed, lightly pack with mesalt, cover with foam dressing - Echo reviewed, LVEF 45% - Recommend consult to HF service for GDMT recommendations, BP now able to tolerate - Was on hydralazine & isordil prior to issues with hypotension - continue ASA, statin, and BB for previous CABG * Argelia Khalil DO - 02/18/2024 1:21 PM EDT Nephrology Progress Note Following for Zofia HD dependent Breathing comfortably Current Inpatient Medications: Reviewed on OCT. Vitals: BP 90/53 Pulse 74 Temp 36.6 C (97.8 F) Resp 16 Ht 1.778 m (5' 10) Wt 60.6 kg (133 lb 8 oz) SpO2 90% BMI 19.16 kg/m BLOOD PRESSURE RANGE: Systolic (24hrs), Av , Min:90 , Max:142 ; Diastolic (24hrs), Av, Min:53, Max:73 24HR INTAKE/OUTPUT: Intake/Output Summary (Last 24 hours) at 02/18/2024 1321 Last data filed at 02/18/2024 0837 Gross per 24 hour Intake 1110 ml Output 300 ml Net 810 ml Physical exam: NAD breathing comfortably No edema Data: Labs: No results for input(s): WBC, HGB, HCT, MCV, PLT in the last 72 hours. Recent Labs 02/18/24 0140 NA 133* K 4.3 CL 102 CO2 27 GLUCOSE 128* CALCIUM 8.6 BUN 41* CREATININE 5.35* Assessment and Plan: 78 y.o. male with hx including CAD, DM, HTN who presented from [facility] with respiratory failure. Nephrology following for ZOFIA/CKD. 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 in 11/22/2023 -has been on MWF schedule HTN -BP with control recently Volume -ultrafiltration with HD Electrolytes -stabilization with HD Acid/base -stabilization with HD Anemia -Hgb low at 9.1, stable CKD MBD -Ca low at 8.1 Plan: -continue HD on MWF schedule -HD today -Zofran for nausea Thank you for allowing me to care for pt. Feel free to reach out with any questions or concerns Argelia Khalil DO [facility] [place] [phone] * RAFFY Garcia - 02/18/2024 12:07 PM EDT Images from the original note were not included. OCCUPATIONAL THERAPY [facility] Treatment Note Name/MRN: Jose John ([id number]) Date of : 1945 Age: 78 y.o. Room/Bed: 5526/5[facility]6 B Discharge Recommendation: IP Rehab, Continue to assess pending progress Prior Level of Function ADL Assistance: Independent Ambulation Assistance: Independent Transfer Assistance: Independent Assessment Pt progressing with OT goals at this time and displays improvement in functional transfers, mobility and bed mobility. Pt completed bed mobility, functional transfers and ambulation with cga and FWW,no LOB noted. Pt completed toilet transfer with cga and good carryover with hand placement and technique. Pt demos LB dressing with SBA and implemented figure four technique and increase ease with LBdressing. Pt limited by fatigue and decreased strength at this time and would benefit from continued OT services to increase strength and activity tolerance required to return to PLOF. Pt is motivated and can tolerate 3hr therapy. Recommending pt return to [facility] upon discharge. Subjective Pt lying in bed upon arrival, alert and agreeable to OT tx session. Pain: Pt denies any current pain. Medical Precautions: No active isolations Proper PPE donned/doffed in accordance with facility standards. Fall Risk: Chavez Fall Risk Score: 45 (High Risk) Precautions/Restrictions: Lines/Drains/Airways: O2 Family/Caregiver Present: none Objective ADLs LE Dressing: SBA Bed Mobility Supine to sit: Contact Guard Scooting: Contact Guard Transfers/Mobility Sit to stand: Contact Guard Stand to sit: Contact Guard Toilet: Contact Guard Sitting balance: Supervision Standing balance: Contact Guard, Min Assist Functional mobility: Contact Guard, Min Assist Pt completed short distance of functional mobility with min-cga and FWW, no LOB noted. Pt demos safety and proper technique with toilet t/f with cga. Device(s) used: front wheeled walker Plan Continue acute OT per plan of care. Safety/Education Safety Safety Devices in place: All fall risk precautions in place, call light within reach, left in bed, nurse notified, and no alarms engaged upon entry Restraints: N/A Education Education Given To: patient Education Provided: OT Role, Plan of Care, ADL Adaptive Strategies, Transfer Training, Fall Prevention Education, and Discharge Recommendations Education Method: Verbal and Demonstration Barriers to Learning: None Education Outcome: Verbalized Understanding and Demonstrated Understanding AM-PAC AM-PAC Inpatient Daily Activity Raw Score: 21 ADL Inpatient CMS G-Code Modifier: CJ Goals Patient Stated Goal: Get stronger again Encounter Problems Encounter Problems (Active) Balance Patient will maintain dynamic standing balance for 10 minutes with modified independence to promoteendurance needed for safe functional mobility (Progressing) Start: 02/13/24 Expected End: 03/12/24 Bathing Patient will utilize adaptive techniques to bathe body with independence (Not Addressed) Start: 02/13/24 Expected End: 03/12/24 Dressings Lower Extremities Patient will dress lower body with independence (Progressing) Start: 02/13/24 Expected End: 03/12/24 Grooming Patient will complete daily grooming tasks while standing at sink with independence (Not Addressed) Start: 02/13/24 Expected End: 03/12/24 Toileting Patient will complete toileting tasks at standard toilet with independence. (Progressing) Start: 02/13/24 Expected End: 03/12/24 Therapy Time Individual Co-treatment Time In 1150 Time Out 1207 Minutes 17 Timed Code Treatment Minutes: 17 Minutes (self care -1) RAFFY Garcia * Fatoumata Zheng MD - 02/18/2024 9:23 AM EDT Hospitalist Progress Note 02/18/2024 Subjective: Admit Date: 02/12/2024 PCP: OLENA GABRIEL Room#: W5-526/W5-526 Shavonne Smith is a 78 y.o. male with past medical history of CAD, DM, HTN and ESRD on HD who presented to ED for respiratory failure. Patient had been seen by rehab when staff noted there that he was hypoxic. Patient does not typically use any home O2. Placed him on 6 L nonrebreather and called EMS. EMS remove the nonrebreather and put him on 3 L nasal cannula and brought him to the ED. Here he is saturating 80% on 3 L but when increased to 6 L O2 sat normalized. Has shortness of breath but denies any chest pain, fever, chills, abdominal pain. He is ESRD on dialysis and receives this Sunday. Last session was yesterday. In ED transition to 8 L and saturating at 99 to 100%. He received ultrafiltration/HD Interval History: 1L out from left thora Resting in bed O2 at 2 L States he has improved Adult diet Regular; Low Sodium (2 gm); 2000 ml 3 Day Weight Change: 1 lb 11.7 oz (0.786 kg) per day 24HR INTAKE/OUTPUT: Intake/Output Summary (Last 24 hours) at 02/18/2024 0923 Last data filed at 02/18/2024 0837 Gross per 24 hour Intake 1330 ml Output 300 ml Net 1030 ml Past Medical History: History reviewed. No pertinent past medical history. LABS: CBC: No results for input(s): WBC, RBC, HGB, HCT, MCV, RDW, PLT in the last 72 hours. BMP: Recent Labs 02/18/24 0140 NA 133* K 4.3 CL 102 CO2 27 BUN 41* CREATININE 5.35* GLUCOSE 128* CALCIUM 8.6 ANIONGAP 4 LIVER PROFILE: No results for input(s): AST, ALT, BILITOT, ALKPHOS, PROT in the last 72 hours. No lab exists for component: LABALBU PT/INR: Recent Labs 02/16/24 1122 PROTIME 11.4 INR 1.0 CARDIAC ENZYMES: No results for input(s): TROPONINI in the last 72 hours. Procalcitonin: No results found for: PROCAL COVID-19 PCR: No results for input(s): COVID19 in the last 72 hours. Encounter Date: 02/12/24 ECG 12 lead (Now) Result Value Heart Rate 75 QRSD Interval 177 QT Interval 498 QTC Interval 555 P Olean 35 QRS Olean 140 T Wave Olean 47 OR Interval 142 Impression Sinus rhythm Right bundle branch block Electronically Signed On 02-12-2024 13:08:36 EDT by [facility] Transthoracic echocardiogram (TTE) complete with contrast, bubble, strain, and 3D PRN Result Date: 02/15/2024 Technically difficult study. Image quality low and limits overall accuracy of interpretation. Left Ventricle: Left ventricle size is normal. Normal wall thickness. Normal left ventricular systolic function. The EF by visual approximation is 45%. Right Ventricle: Not well visualized. Unable to assess systolic function. No significant valvular abnormalities. Transthoracic echocardiogram (TTE) complete with contrast, bubble, strain, and 3D PRN Result Date: 11/16/2023 Left Ventricle: Left ventricle size is normal. Mildly increased wall thickness. Low normal left ventricular systolic function. EF by 2D Simpsons Biplane is 49%. Normal wall motion. Right Ventricle: Not well visualized. Right ventricle size is normal. Normal systolic function. TAPSE is 2.1 cm. Tricuspid Valve: Moderately elevated RVSP. RVSP is 50 mmHg. Aorta: Not well visualized. Normal sized sinuses of Valsalva and ascending aorta. Sinuses of Valsalva diameter is 3.2 cm. IVC/SVC: IVC diameter is dilated and decreases less than 50% during inspiration; therefore the estimated right atrial pressure is elevated (~15 mmHg). No significant valvular abnormalities. Technically difficult study. @IMAGES@ Objective: Vitals: BP 134/63 (BP Location: Left arm, Patient Position: Lying) Pulse 80 Temp 36 C (96.8 F) (Temporal) Resp 16 Ht 5' 10 (1.778 m) Wt 133 lb 8 oz (60.6 kg) SpO2 91% BMI 19.16 kg/m Pulse Ox: SpO2 Av.3 % Min: 86 % Max: 96 % Supplemental O2: O2 Flow Rate (L/min): 2 L/min General appearance: No apparent distress, lethargic HEENT: Eyes: No scleral icterus Oral: Tongue is semi-moist Cardiovascular: S1/S2 heard, RRR Respiratory: diminished bs at bases poor air movement Abdomen: Soft, non-tender, non-distended bowel sounds positive Musculoskeletal: distal sternum incision open wound with wet to dry dressing. Medications: Current Facility-Administered Medications: acetaminophen (Tylenol) tablet 650 mg, 650 mg, Oral, q6h PRN OR acetaminophen (Tylenol) suppository 650 mg, 650 mg, Rectal, q6h PRN, Maylin Allen MD amiodarone (Pacerone) tablet 200 mg, 200 mg, Oral, Daily, Maylin Allen MD, 200 mg at 02/17/24 08 aspirin chewable tablet 81 mg, 81 mg, Oral, Daily, Maylin Allen MD, 81 mg at 838 atorvastatin (Lipitor) tablet 80 mg, 80 mg, Oral, Daily, Maylin Allen MD, 80 mg at 02/17/24 08 carvedilol (Coreg) tablet 3.125 mg, 3.125 mg, Oral, BID WC, Fatoumata Zheng MD, 3.125 mg at 717 collagenase 250 UNIT/GM ointment, , Topical, Daily, Chyna Aleja, MANAGER OF PROJECT MANAGEMENT - INTEGRATION ENGINEER, Given at 02/17/24 0839 collagenase 250 UNIT/GM ointment, , Topical, PRN, Chyna Diannemke, MANAGER OF PROJECT MANAGEMENT - INTEGRATION ENGINEER dextrose 5 % infusion, 100 mL/hr, IntraVENous, PRN, Manuel Atkins MD dextrose 50 % solution 12.5 g, 12.5 g, IntraVENous, PRN, Manuel Atkins MD gabapentin (Neurontin) capsule 100 mg, 100 mg, Oral, BID, Maylin Allen MD, 100 mg at 02/17/242037 glucagon (human recombinant) injection 1 mg, 1 mg, IntraMUSCular, PRN, Manuel Atkins MD glucose oral gel 15 g, 15 g, Oral, PRN, Manuel Atkins MD heparin injection 1,200-2,000 Units, 1,200-2,000 Units, IntraCATHeter, PRN, Fatoumata Zheng MD heparin injection 1,200-2,000 Units, 1,200-2,000 Units, IntraCATHeter, PRN, Fatoumata Zheng MD heparin injection 1,900 Units, 1,900 Units, IntraCATHeter, PRN, Matt Quinn MD, 1,900 Units at 02/15/24 1155 heparin injection 2,000 Units, 2,000 Units, IntraCATHeter, PRN, Matt Quinn MD, 2,000 Units at 02/15/24 1156 heparin injection 5,000 Units, 5,000 Units, SubCUTAneous, 3 times per day, Maylin Allen MD, 5,000 Units at 02/18/24 0521 insulin glargine (Lantus) injection 7 Units, 7 Units, SubCUTAneous, Nightly, Manuel Atkins MD, 7 Units at 02/17/242037 Insulin Lispro (Humalog) injection 0-6 Units, 0-6 Units, SubCUTAneous, TID WC, 1 Units at 02/17/24 1717 AND Insulin Lispro (Humalog) injection 0-6 Units, 0- 6 Units, SubCUTAneous, Nightly, Manuel Atkins MD, 1 Units at 02/17/242036 ipratropium-albuterol (Duo-Neb) 0.5-2.5 mg/3 mL nebulizer solution 3 mL, 3 mL, Nebulization, q6h PRN, Maylin Allen MD melatonin tablet 3 mg, 3 mg, Oral, Nightly PRN, Maylin Allen MD, 3 mg at 02/14/242035 mirtazapine (Remeron) tablet 15 mg, 15 mg, Oral, Nightly, Maylin Allen MD, 15 mg at 02/17/242036 pantoprazole (ProtoNix) EC tablet 40 mg, 40 mg, Oral, qAM AC, Maylin Allen MD, 40 mg at 02/18/24 05 polyethylene glycol (PEG) 3350 (Miralax) packet 17 g, 17 g, Oral, Daily PRN, Maylin Allen MD QUEtiapine (SEROquel) tablet 12.5 mg, 12.5 mg, Oral, q8h PRN, Maylin Allen MD, 12.5 mg at 02/14/24 0538 sevelamer carbonate (Renvela) tablet 800 mg, 800 mg, Oral, TID WC, Maylin Allen MD, 800 mg at 02/17/24 1717 tiotropium (Spiriva Respimat) 2.5 MCG/ACT inhaler 2 puff, 2 puff, Inhalation, Daily, Maylin Patel MD, 2 puff at 02/17/24 0838 Assessment Acute respiratory failure ZOFIA 2/2 ATN CKD 4 On HD Bilateral moderate Pleural effusion L>R DM with hyperglycemia CAD Hx CABG Hypotension Sternotomy dehiscense of distal incision Severe malnutrition -O2 supplement, wean as able, no O2 at baseline, may need home O2 eval -ICU evaluated, remains on GMF -ultrafiltration /HD per nephrology -duoneb -wound care for open wound in CABG site -seen by CTS, CT chest no fluid collection, -TTE EF 45% improved from november -thoracentesis left, drained 1 L, transudates. ordered thora right pleural effusion -parameter for soft BP -Dietary supplement -PT OT History reviewed. No pertinent past medical history. Plan -am labs, replace lytes prn -increase activity -DVT prophylaxis: [] Lovenox [x] Heparin [] SCDs [x] Encourage ambulation [] Already on Anticoagulation Advance Directive: Full Code Family discussion: Anticipated Discharge - Date - 02/18 - Location - home - Pending the following - clinical improvement, thoracentesis Total time spent (which include face to face and non face to face encounters) : 37 minutes Fatoumata Zheng MD Division of Hospitalist Medicine Inpatient Medical Services/[facility] [place] * Whit Gold - 02/18/2024 9:20 AM EDT Images from the original note were not included. PHYSICAL THERAPY [facility] Treatment Note Name/MRN: Jose John ([id number]) Date of : 1945 Age: 78 y.o. Room/Bed: [facility] Discharge Recommendation: Home with assist PRN Equipment Needed: (tbd) Other: tbd FWW Prior Level of Function ADL Assistance: Needs Assist Ambulation Assistance: Needs Assistance Transfer Assistance: Needs Assist At REHAB Pt was independent with all self care and mobility prior to his open heart surgery. Assessment Pt presents with decreased activity tolerance secondary to pleural effusion. Pt ambulated 250' withFWW and SBA for pt safety; 20' with no assistive device and Min Assist due to L sided LOB. 7 steps with R handrail and CGA for balance; pt used BUE to help ascend the stairs. Recommending pt discharge home with assist PRN and FWW. Subjective RN cleared pt for PT. Pt in bed and agreeable to therapy at this time. Pt left in bed with bed alarm on and call light within reach Pain: Dougherty-Fortune Pain Ratin = Hurts little more Pain Location: R ankle stiffness with ambulation Medical Precautions: No active isolations Proper PPE donned/doffed in accordance with facility standards. Fall Risk: Chavez Fall Risk Score: 45 (High Risk) Precautions/Restrictions: Lines/Drains/Airways: 2 L/min O2 Overall Cognitive Status: WFL Overall Orientation Status: Oriented x4 Family/Caregiver Present: none Objective Bed Mobility Supine to sit: Modified Independent Sit to supine: Modified Independent Transfers/Mobility Sit to stand: Modified Independent Stand to sit: Modified Independent X2 from bed; x1 from wc Device(s) used: front wheeled walker Ambulation Ambulation 1 Assistive device(s) used: front wheeled walker Assist level: Modified Independent Distance (ft): 250' Quality of gait: slow chirag Ambulation 2 Assistive device(s) used: none Assist level: Min Assist Distance (ft): 20' Quality of gait: slow chirag, postural sway, L LOB pt able to correct with use of UE support on wall Standing rest break needed between 250' walk and stairs. Pt needed wc assist back from stairs due to increased fatigue, but able to walk into room without assistive device and Min assist Balance: Posture: fair Sitting - Static: Independent Sitting - Dynamic: Independent Standing - Static: Modified Independent Standing - Dynamic: Modified Independent Stairs Stairs 1 Assistive device(s) used: none Assist level: Contact Guard # of steps: 7 Rails: R ascending and L descending Additional factors: non-reciprocal going up, reciprocal going down, increased time to complete, pt uses BUE to help pull while ascending stairs Plan Continue acute PT per plan of care. Safety/Education Safety Safety Devices in place: call light within reach, left in bed, bed alarm in place, gait belt, patient at risk for falls, and nurse notified Restraints: No Education Education Given To: patient Education Provided: Gait Training, Plan of Care, Energy Conservation, and Discharge Recommendations Education Method: Verbal Barriers to Learning: None Education Outcome: Verbalized Understanding Outcome Measures AM-PAC AM-PAC Inpatient Mobility Raw Score : 22 AM-PAC Inpatient Mobility Raw Score (No Stairs) : 19 JH-HLM JH-HLM Score: Walked 250 ft or more (i.e. several laps on unit) Goals Patient Stated Goal: to get stronger Encounter Problems Encounter Problems (Active) Mobility Patient will ambulate 150 feet with independence and least restrictive device in order to improve safety and independence with mobility. (Progressing) Start: 02/13/24 Expected End: 02/27/24 Patient will ascend and descend 2 stairs with least restrictive device and independence in order tosafely negotiate home. (Progressing) Start: 02/13/24 Expected End: 02/27/24 Pain - Adult Transfers Patient will perform bed mobility with independence in order to improve independence and prepare for out of bed mobility. (Progressing) Start: 02/13/24 Expected End: 02/27/24 Patient will complete functional transfer with least restrictive device with independence in order to prepare for ambulation. (Progressing) Start: 02/13/24 Expected End: 02/27/24 Therapy Time Individual Co-treatment Time In 08 Time Out 0830 Minutes 26 Timed Code Treatment Minutes: 26 Minutes (gait and FA) Whit Gold, MAN * Fatoumata Zheng MD - 02/17/2024 10:08 AM EDT Hospitalist Progress Note 02/17/2024 Subjective: Admit Date: 02/12/2024 PCP: OLENA GABRIEL Room#: [id number] Shavonne Smith is a 78 y.o. male with past medical history of CAD, DM, HTN and ESRD on HD who presented to ED for respiratory failure. Patient had been seen by rehab when staff noted there that he was hypoxic. Patient does not typically use any home O2. Placed him on 6 L nonrebreather and called EMS. EMS remove the nonrebreather and put him on 3 L nasal cannula and brought him to the ED. Here he is saturating 80% on 3 L but when increased to 6 L O2 sat normalized. Has shortness of breath but denies any chest pain, fever, chills, abdominal pain. He is ESRD on dialysis and receives this Sunday. Last session was yesterday. In ED transition to 8 L and saturating at 99 to 100%. He received ultrafiltration/HD Interval History: 1L out from thora Resting in bed O2 at 2 L No new issues Adult diet Regular; Low Sodium (2 gm); 2000 ml 3 Day Weight Change: 1 lb 1.6 oz (0.499 kg) per day 24HR INTAKE/OUTPUT: Intake/Output Summary (Last 24 hours) at 02/17/2024 1008 Last data filed at 02/17/2024 0956 Gross per 24 hour Intake 401 ml Output -- Net 401 ml Past Medical History: History reviewed. No pertinent past medical history. LABS: CBC: No results for input(s): WBC, RBC, HGB, HCT, MCV, RDW, PLT in the last 72 hours. BMP: Recent Labs 02/15/24 0337 NA 132* K 4.6 CL 103 CO2 24 BUN 38* CREATININE 5.09* GLUCOSE 180* CALCIUM 8.4 ANIONGAP 6 LIVER PROFILE: No results for input(s): AST, ALT, BILITOT, ALKPHOS, PROT in the last 72 hours. No lab exists for component: LABALBU PT/INR: Recent Labs 02/16/24 1122 PROTIME 11.4 INR 1.0 CARDIAC ENZYMES: No results for input(s): TROPONINI in the last 72 hours. Procalcitonin: No results found for: PROCAL COVID-19 PCR: No results for input(s): COVID19 in the last 72 hours. Encounter Date: 02/12/24 ECG 12 lead (Now) Result Value Heart Rate 75 QRSD Interval 177 QT Interval 498 QTC Interval 555 P Olean 35 QRS Olean 140 T Wave Olean 47 OR Interval 142 Impression Sinus rhythm Right bundle branch block Electronically Signed On 02-12-2024 13:08:36 EDT by [facility] Transthoracic echocardiogram (TTE) complete with contrast, bubble, strain, and 3D PRN Result Date: 02/15/2024 Technically difficult study. Image quality low and limits overall accuracy of interpretation. Left Ventricle: Left ventricle size is normal. Normal wall thickness. Normal left ventricular systolic function. The EF by visual approximation is 45%. Right Ventricle: Not well visualized. Unable to assess systolic function. No significant valvular abnormalities. Transthoracic echocardiogram (TTE) complete with contrast, bubble, strain, and 3D PRN Result Date: 11/16/2023 Left Ventricle: Left ventricle size is normal. Mildly increased wall thickness. Low normal left ventricular systolic function. EF by 2D Simpsons Biplane is 49%. Normal wall motion. Right Ventricle: Not well visualized. Right ventricle size is normal. Normal systolic function. TAPSE is 2.1 cm. Tricuspid Valve: Moderately elevated RVSP. RVSP is 50 mmHg. Aorta: Not well visualized. Normal sized sinuses of Valsalva and ascending aorta. Sinuses of Valsalva diameter is 3.2 cm. IVC/SVC: IVC diameter is dilated and decreases less than 50% during inspiration; therefore the estimated right atrial pressure is elevated (~15 mmHg). No significant valvular abnormalities. Technically difficult study. @IMAGES@ Objective: Vitals: BP 158/84 (BP Location: Right arm, Patient Position: Sitting) Pulse 84 Temp 36.8 C (98.3 F) (Temporal) Resp 20 Ht 5' 10 (1.778 m) Wt 132 lb 9.6 oz (60.1 kg) SpO2 95% BMI 19.03 kg/m Pulse Ox: SpO2 Av.3 % Min: 93 % Max: 100 % Supplemental O2: O2 Flow Rate (L/min): 2 L/min General appearance: No apparent distress, lethargic HEENT: Eyes: No scleral icterus Oral: Tongue is semi-moist Cardiovascular: S1/S2 heard, RRR Respiratory: diminished bs at bases poor air movement Abdomen: Soft, non-tender, non-distended bowel sounds positive Musculoskeletal: distal sternum incision open wound with wet to dry dressing. Medications: Current Facility-Administered Medications: acetaminophen (Tylenol) tablet 650 mg, 650 mg, Oral, q6h PRN OR acetaminophen (Tylenol) suppository 650 mg, 650 mg, Rectal, q6h PRN, Maylin Allen MD amiodarone (Pacerone) tablet 200 mg, 200 mg, Oral, Daily, Maylin Allen MD, 200 mg at 02/17/24 08 aspirin chewable tablet 81 mg, 81 mg, Oral, Daily, Maylin Allen MD, 81 mg at atorvastatin (Lipitor) tablet 80 mg, 80 mg, Oral, Daily, Maylin Allen MD, 80 mg at 02/17/24 08 carvedilol (Coreg) tablet 3.125 mg, 3.125 mg, Oral, BID , Fatoumata Zheng MD, 3.125 mg at collagenase 250 UNIT/GM ointment, , Topical, Daily, Chyna Masterson APRN - INTEGRATION ENGINEER, Given at 02/17/24 0839 collagenase 250 UNIT/GM ointment, , Topical, PRN, Chyna Masterson, MANAGER OF PROJECT MANAGEMENT - INTEGRATION ENGINEER dextrose 5 % infusion, 100 mL/hr, IntraVENous, PRN, Manuel Atkins MD dextrose 50 % solution 12.5 g, 12.5 g, IntraVENous, PRN, Manuel Atkins MD gabapentin (Neurontin) capsule 100 mg, 100 mg, Oral, BID, Maylin Allen MD, 100 mg at 02/17/24 0838 glucagon (human recombinant) injection 1 mg, 1 mg, IntraMUSCular, PRN, Manuel Atkins MD glucose oral gel 15 g, 15 g, Oral, PRN, Manuel Atkins MD heparin injection 1,200-2,000 Units, 1,200-2,000 Units, IntraCATHeter, PRN, Fatoumata Zheng MD heparin injection 1,200-2,000 Units, 1,200-2,000 Units, IntraCATHeter, PRN, Fatoumata Zheng MD heparin injection 1,900 Units, 1,900 Units, IntraCATHeter, PRN, Matt Quinn MD, 1,900 Units at 02/15/24 1155 heparin injection 2,000 Units, 2,000 Units, IntraCATHeter, PRN, Matt Quinn MD, 2,000 Units at 02/15/24 1156 heparin injection 5,000 Units, 5,000 Units, SubCUTAneous, 3 times per day, Maylin Allen MD, 5,000 Units at 02/17/24 0547 insulin glargine (Lantus) injection 7 Units, 7 Units, SubCUTAneous, Nightly, Manuel Atkins MD, 7 Units at 02/16/242116 Insulin Lispro (Humalog) injection 0-6 Units, 0-6 Units, SubCUTAneous, TID WC, 1 Units at 02/17/24 0838 AND Insulin Lispro (Humalog) injection 0-6 Units, 0- 6 Units, SubCUTAneous, Nightly, Manuel Atkins MD, 2 Units at 02/16/242116 ipratropium-albuterol (Duo-Neb) 0.5-2.5 mg/3 mL nebulizer solution 3 mL, 3 mL, Nebulization, q6h PRN, Maylin Allen MD melatonin tablet 3 mg, 3 mg, Oral, Nightly PRN, Maylin Allen MD, 3 mg at 02/14/242035 mirtazapine (Remeron) tablet 15 mg, 15 mg, Oral, Nightly, Maylin Allen MD, 15 mg at 02/16/242118 pantoprazole (ProtoNix) EC tablet 40 mg, 40 mg, Oral, qAM AC, Maylin Allen MD, 40 mg at 02/17/24 0547 polyethylene glycol (PEG) 3350 (Miralax) packet 17 g, 17 g, Oral, Daily PRN, Maylin Allen MD QUEtiapine (SEROquel) tablet 12.5 mg, 12.5 mg, Oral, q8h PRN, Maylin Allen MD, 12.5 mg at 02/14/24 0538 sevelamer carbonate (Renvela) tablet 800 mg, 800 mg, Oral, TID WC, Maylin Allen MD, 800 mg at 02/17/24 0838 tiotropium (Spiriva Respimat) 2.5 MCG/ACT inhaler 2 puff, 2 puff, Inhalation, Daily, Maylin Patel MD, 2 puff at 02/17/24 0838 Assessment Acute respiratory failure ZOFIA 2/2 ATN 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 No pertinent past medical history. Plan -am labs, replace lytes prn -increase activity -DVT prophylaxis: [] Lovenox [x] Heparin [] SCDs [x] Encourage ambulation [] Already on Anticoagulation Advance Directive: Full Code Family discussion: Anticipated Discharge - Date - 02/17 to 16 - Location - home - Pending the following - clinical improvement Total time spent (which include face to face and non face to face encounters) : 38 minutes Fatoumata Zheng MD Division of Hospitalist Medicine Inpatient Medical Services/[facility] [place] * Mercedes Wells NP - 02/17/2024 9:00 AM EDT Nephrology Progress Note Following for Zofia HD dependent no recent labs will check in am Seen up in chair s/p left thoracentesis Breathing comfortably Current Inpatient Medications: Reviewed on OCT. Vitals: BP 158/84 (BP Location: Right arm, Patient Position: Sitting) Pulse 84 Temp 36.8 C (98.3 F) (Temporal) Resp 20 Ht 1.778 m (5' 10) Wt 60.1 kg (132 lb 9.6 oz) SpO2 95% BMI 19.03 kg/m BLOOD PRESSURE RANGE: Systolic (24hrs), Av , Min:128 , Max:165 ; Diastolic (24hrs), Av, Min:63, Max:84 24HR INTAKE/OUTPUT: Intake/Output Summary (Last 24 hours) at 02/17/2024 0900 Last data filed at 02/17/2024 0547 Gross per 24 hour Intake 181 ml Output -- Net 181 ml Physical exam: NAD breathing comfortably No edema Data: Labs: No results for input(s): WBC, HGB, HCT, MCV, PLT in the last 72 hours. Recent Labs 02/15/24 0337 NA 132* K 4.6 CL 103 CO2 24 GLUCOSE 180* CALCIUM 8.4 BUN 38* CREATININE 5.09* Assessment and Plan: 78 y.o. male with hx including CAD, DM, HTN [facility]. Nephrology following for ZOFIA/CKD. ZOFIA/CKD -previously CKD stage 4 -COTTAGE CHEESE MAKER was started back in 11/22/2023 -has been on MWF schedule HTN -BP with control recently Volume -ultrafiltration with HD Electrolytes -stabilization with HD Acid/base -stabilization with HD Anemia -Hgb low at 9.1, stable CKD MBD -Ca low at 8.1 Plan: -continue HD on MWF schedule -monitor for recovery, may end up ESRD -check labs tomorrow Thank you for allowing me to care for pt. Feel free to reach out with any questions or concerns Mercedes Wells APRN INTEGRATION ENGINEER A-G APPLICATION DBA [facility] [place] [phone] Associated attestation - Argelia Khalil DO - 02/17/2024 2:07 PM EDT Pt seen and examined independently by me. I reviewed with Mercedes Wells APRN- LUCA the alexandre portions of the medical history and the findings on physical examination. I discussed the patient s alexandre portions of the diagnosis and concur with the treatment plan as documented in her note. Patient is doing okay. He did get emotional talking about how long he has been in the hospital and missing his wedding anniversary Please message me through [employer] with any questions or concerns. Argelia Khalil DO * Fina Franklin, RD - 02/16/2024 12:53 PM EDT Nutrition Assessment Type and Reason for Visit: Initial (HD) Nutrition Recommendations/Plan: PATIENT MEETS AND/ASPEN CRITERIA FOR SEVERE MALNUTRITION IN ACUTE ILLNESS Continue with 2 gram sodium diet (2000 ml fr) and monitor ability to liberalize diet. Patient declines ONS at this time. Consider swallow evaluation by COMPONENT ASSEMBLER SUPERVISOR Suggest document po intake in nursing flow sheets Continue with daily weights RD continue to monitor overall nutritional status and follow up weekly Malnutrition Assessment: Malnutrition Status: Severe malnutrition Context: Acute Illness Findings of the 6 clinical characteristics of malnutrition: Energy Intake: No significant decrease in energy intake (per patient good appetite and consuming >75%) Weight Loss: Greater than 7.5% over 3 months Body Fat Loss: Moderate body fat loss/severe Orbital, Triceps, Fat Overlying Ribs, Buccal region Muscle Mass Loss: Moderate muscle mass loss/severe Temples (temporalis), Calf (gastrocnemius), Hand(interosseous), Clavicles (pectoralis & deltoids) Fluid Accumulation: No significant fluid accumulation Substation Maintenance Technician Strength: Not Performed Nutrition Assessment: 78 yo male with PMH of T2DM, HTN, CKD, TIA with no residual (approx 16 years ago), tobacco use (quit 20 years ago), macular degeneration, back surgery, and BPH. He is well known to our service, had aCABG x4 with Dr. Carlin on 11/21/23. His postop course was prolonged r/t ZOFIA on CKD requiring dialysis, respiratory failure 2/2 aspiration PNA, ICU delirium, and multiple thoracentesis r/t volume overload. He was discharged to [facility] on POD #34, was transferred to [facility]. He was readmitted from 01/22/24-01/30/24 with SOB and bilateral pleural effusions. Had multiple thoracentesis and completed course of abx for pneumonia. CTS was consulted at that time for small dehiscence of distal MSI, recommended wet-to-dry dressing changes. He was discharged to [facility]. He returned to [facility] ED from [facility] on 02/12/24 with hypoxia, he was saturating 80% on 3L NC. CXR showed pleural effusions and pulmonary congestion. He received extra UF on 02/11 with 3L removed. Patient still with dehiscence of chest wound, CTS and wound care consulted. Nephrology following for HD with last HD on 02/14 (800 ml removed). Ptient currently ordered 2 gram sodium diete with 2 liter fluid retsriction. Per nursing documentation, patient consuming 100% documented meals. Patient sitting up in bed eating lunch, daughter at bedside during RD visit. Patient reports he is consuming >75% of meals and tolerating well. Noted patient choking on food during RD visit. Patient reports he is swallowing okay and recently had swallow evaluation. RD offered more gravy for food and patient declined. Daughter briefly reviewed patients recenthospitalizations. Patient reported he weighed 153# in November this year. Review of weights in [facility], patient weighed 160# on 11/07/23 with a current standing scale weight of 133# today. Patient has lost ~1 6.9% in the past [address] noted moderate/severe muscle and fat loss throughout body as well. Patient reports he receives a protien bar at HD but declines ONS at this time. Estimated Daily Nutrient Needs: Energy Requirements Based On: Kcal/kg Weight Used for Energy Requirements: Current Weight for Energy Calculation (kg): 60.5 kg Total Energy Requirements (kcals/day): 1112-9018 (28-33) Weight Used for Protein Requirements: Current Weight in Kg Used for Protein Requirements: 60.5 kg Estimated Total Protein (g/day): 73-85 (1.2-1.4) Estimated Daily Total Fluid (ml/day): per MD Nutrition Related Findings: +bowel sounds; no edema noted; Alfredo 20; +I&O Wound Type: Surgical Incision BMP: Recent Labs 02/14/24 0315 02/15/24 0337 NA 136 132* K 4.4 4.6 CL 102 103 CO2 28 24 BUN 24* 38* CREATININE 3.63* 5.09* GLUCOSE 170* 180* CALCIUM 8.6 8.4 HEPATIC: No results for input(s): AST, ALT, BILITOT, ALKPHOS in the last 72 hours. No lab exists for component: ALB Glucose Date Value Ref Range Status 02/16/2024 126 (H) 70 - 100 mg/dL Final 02/16/2024 176 (H) 70 - 100 mg/dL Final 02/15/2024 163 (H) 70 - 100 mg/dL Final 02/15/2024 164 (H) 70 - 100 mg/dL Final 02/15/2024 211 (H) 70 - 100 mg/dL Final 02/15/2024 111 (H) 70 - 100 mg/dL Final Scheduled Meds: amiodarone, 200 mg, Oral, Daily aspirin, 81 mg, Oral, Daily atorvastatin, 80 mg, Oral, Daily carvedilol, 3.125 mg, Oral, BID WC collagenase, , Topical, Daily gabapentin, 100 mg, Oral, BID heparin, 5,000 Units, SubCUTAneous, 3 times per day insulin glargine, 7 Units, SubCUTAneous, Nightly insulin lispro, 0-6 Units, SubCUTAneous, TID WC And insulin lispro, 0-6 Units, SubCUTAneous, Nightly mirtazapine, 15 mg, Oral, Nightly pantoprazole, 40 mg, Oral, qAM AC sevelamer carbonate, 800 mg, Oral, TID WC tiotropium, 2 puff, Inhalation, Daily Current Nutrition Therapies: Adult diet Regular; Low Sodium (2 gm); 2000 ml Current Oral Intake Average Meal Intake: 76-100% Average Supplements Intake: None Ordered Anthropometric Measures: Height: 177.8 cm (5' 10) Current Body Weight: 60.3 kg (133 lb) Weight Source: Standing Scale Admission Body Weight: 61.2 kg (135 lb) (standing scale) Usual Body Weight: 72.6 kg (160 lb) (11/07/23) % Weight Change (Calculated): -16.9 Platter Body Weight (lbs) (Calculated): 166 lbs Platter Body Weight (Kg) (Calculated): 75 kg % Platter Body Weight (Calculated): 80.1 % BMI (kg/m2) (Calculated): 19.1 Wt Readings from Last 10 Encounters: 02/16/24 60.5 kg (133 lb 4.8 oz) 01/28/24 62.2 kg (137 lb 2 oz) 12/25/23 11/13/23 11/07/23 10/01/23 62.3 kg (137 lb 5.6 oz) 79 kg (173.8 lb) 73 kg (160.6 lb) 73.5 kg (161.7 lb) Nutrition Diagnosis: Increased nutrient needs related to renal dysfunction as evidenced by wounds, dialysis Severe malnutrition, In context of acute illness or injury related to cardiac dysfunction, renal dysfunction, impaired respiratory function as evidenced by moderate muscle loss, severe muscle loss, moderate loss of subcutaneous fat, severe loss of subcutaneous fat, weight loss (16.9% in 3 months) Nutrition Interventions: Nutrition Education/Counseling: No recommendation at this time Coordination of Nutrition Care: Continue to monitor while inpatient Goals: Goals: Meet at least 75% of estimated needs, by next RD assessment Nutrition Monitoring and Evaluation: Behavioral-Environmental Outcomes: None Identified Food/Nutrient Intake Outcomes: Food and Nutrient Intake Physical Signs/Symptoms Outcomes: Biochemical Data, GI Status, Fluid Status or Edema, Weight, Skin Discharge Planning: Too soon to determine Fina Franklin MS RD LD Contact: [employer] or *[phone] * Mercedes Wells NP - 02/16/2024 9:35 AM EDT Nephrology Progress Note Following for ZOFIA on CKD HD dependent tolerated HD yesterday UF 800ml States scheduled for thoracentesis today Denies cp, sob, nvd Current Inpatient Medications: Reviewed on OCT. Vitals: BP 151/77 (BP Location: Right arm, Patient Position: Sitting) Pulse 80 Temp 36.6 C (97.9 F) (Temporal) Resp 20 Ht 1.778 m (5' 10) Wt 60.5 kg (133 lb 4.8 oz) SpO2 93% BMI 19.13 kg/m BLOOD PRESSURE RANGE: Systolic (24hrs), Av , Min:89 , Max:151 ; Diastolic (24hrs), Av, Min:35, Max:86 24HR INTAKE/OUTPUT: Intake/Output Summary (Last 24 hours) at 02/16/2024 0935 Last data filed at 02/16/2024 0835 Gross per 24 hour Intake 661.9 ml Output 250 ml Net 411.9 ml Physical exam: Constitutional: NAD Skin: no rash, turgor wnl Cardiovascular: Normal S1, S2 without m/r/g Respiratory: diminished BLL Abdomen: +bs, soft, nt, nd Ext: no lower extremity edema Data: Labs: Recent Labs 02/13/24 1020 HGB 9.1 Recent Labs 02/14/24 0315 02/15/24 0337 NA 136 132* K 4.4 4.6 CL 102 103 CO2 28 24 GLUCOSE 170* 180* CALCIUM 8.6 8.4 BUN 24* 38* CREATININE 3.63* 5.09* Assessment and Plan: 78 y.o. male with hx including CAD, DM, HTN who presented from [facility] with respiratory failure. Nephrology following for ZOFIA/CKD. 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 Feel free to reach out with any questions or concerns Mercedes Wells APRN INTEGRATION ENGINEER A-G APPLICATION DBA [facility] [phone] Associated attestation - Argelia Khalil DO - 02/16/2024 3:57 PM EDT Pt seen and examined independently by me. I reviewed with Mercedes Wells APRN- INTEGRATION ENGINEER the alexandre portions of the medical history and the findings on physical examination. I discussed the patient s alexandre portions of the diagnosis and concur with the treatment plan as documented in her note. Please message me through [employer] with any questions or concerns. Argelia Khalil, DO * Fatoumata Zheng MD - 02/16/2024 9:30 AM EDT Hospitalist Progress Note 02/16/2024 Subjective: Admit Date: 02/12/2024 PCP: OLENA GABRIEL Room#: W5-526/W5-526 Shavonne Smith is a 78 y.o. male with past medical history of CAD, DM, HTN and ESRD on HD who presented to ED for respiratory failure. Patient had been seen by rehab when staff noted there that he was hypoxic. Patient does not typically use any home O2. Placed him on 6 L nonrebreather and called EMS. EMS remove the nonrebreather and put him on 3 L nasal cannula and brought him to the ED. Here he is saturating 80% on 3 L but when increased to 6 L O2 sat normalized. Has shortness of breath but denies any chest pain, fever, chills, abdominal pain. He is ESRD on dialysis and receives this Sunday. Last session was yesterday. In ED transition to 8 L and saturating at 99 to 100%. He received ultrafiltration/HD Interval History: Feeling better O2 weaning down Tolerating diet Alert and oriented Adult diet Regular; Low Sodium (2 gm); 2000 ml 3 Day Weight Change: -2 lb 6.4 oz (-1.089 kg) per day 24HR INTAKE/OUTPUT: Intake/Output Summary (Last 24 hours) at 02/16/2024 0930 Last data filed at 02/16/2024 0835 Gross per 24 hour Intake 661.9 ml Output 250 ml Net 411.9 ml Past Medical History: History reviewed. No pertinent past medical history. LABS: CBC: Recent Labs 02/13/24 1020 HGB 9.1 BMP: Recent Labs 02/14/24 0315 02/15/24 0337 NA 136 132* K 4.4 4.6 CL 102 103 CO2 28 24 BUN 24* 38* CREATININE 3.63* 5.09* GLUCOSE 170* 180* CALCIUM 8.6 8.4 ANIONGAP 5 6 LIVER PROFILE: No results for input(s): AST, ALT, BILITOT, ALKPHOS, PROT in the last 72 hours. No lab exists for component: LABALBU PT/INR: No results for input(s): PROTIME, INR in the last 72 hours. CARDIAC ENZYMES: No results for input(s): TROPONINI in the last 72 hours. Procalcitonin: No results found for: PROCAL COVID-19 PCR: No results for input(s): COVID19 in the last 72 hours. Encounter Date: 02/12/24 ECG 12 lead (Now) Result Value Heart Rate 75 QRSD Interval 177 QT Interval 498 QTC Interval 555 P Olean 35 QRS Olean 140 T Wave Olean 47 OR Interval 142 Impression Sinus rhythm Right bundle branch block Electronically Signed On 02-12-2024 13:08:36 EDT by [facility] Transthoracic echocardiogram (TTE) complete with contrast, bubble, strain, and 3D PRN Result Date: 02/15/2024 Technically difficult study. Image quality low and limits overall accuracy of interpretation. Left Ventricle: Left ventricle size is normal. Normal wall thickness. Normal left ventricular systolic function. The EF by visual approximation is 45%. Right Ventricle: Not well visualized. Unable to assess systolic function. No significant valvular abnormalities. Transthoracic echocardiogram (TTE) complete with contrast, bubble, strain, and 3D PRN Result Date: 11/16/2023 Left Ventricle: Left ventricle size is normal. Mildly increased wall thickness. Low normal left ventricular systolic function. EF by 2D Simpsons Biplane is 49%. Normal wall motion. Right Ventricle: Not well visualized. Right ventricle size is normal. Normal systolic function. TAPSE is 2.1 cm. Tricuspid Valve: Moderately elevated RVSP. RVSP is 50 mmHg. Aorta: Not well visualized. Normal sized sinuses of Valsalva and ascending aorta. Sinuses of Valsalva diameter is 3.2 cm. IVC/SVC: IVC diameter is dilated and decreases less than 50% during inspiration; therefore the estimated right atrial pressure is elevated (~15 mmHg). No significant valvular abnormalities. Technically difficult study. @IMAGES@ Objective: Vitals: BP 151/77 (BP Location: Right arm, Patient Position: Sitting) Pulse 80 Temp 36.6 C (97.9 F) (Temporal) Resp 20 Ht 5' 10 (1.778 m) Wt 133 lb 4.8 oz (60.5 kg) SpO2 93% BMI 19.13 kg/m Pulse Ox: SpO2 Av.5 % Min: 92 % Max: 99 % Supplemental O2: O2 Flow Rate (L/min): 2 L/min General appearance: No apparent distress, lethargic HEENT: Eyes: No scleral icterus Oral: Tongue is semi-moist Cardiovascular: S1/S2 heard, RRR Respiratory: diminished bs at bases poor air movement Abdomen: Soft, non-tender, non-distended bowel sounds positive Musculoskeletal: distal sternum incision open wound with wet to dry dressing. Medications: Current Facility-Administered Medications: acetaminophen (Tylenol) tablet 650 mg, 650 mg, Oral, q6h PRN OR acetaminophen (Tylenol) suppository 650 mg, 650 mg, Rectal, q6h PRN, Maylin Allen MD amiodarone (Pacerone) tablet 200 mg, 200 mg, Oral, Daily, Maylin Allen MD, 200 mg at 02/16/24 0846 aspirin chewable tablet 81 mg, 81 mg, Oral, Daily, Maylin Allen MD, 81 mg at atorvastatin (Lipitor) tablet 80 mg, 80 mg, Oral, Daily, Maylin Allen MD, 80 mg at 02/16/24 0846 carvedilol (Coreg) tablet 3.125 mg, 3.125 mg, Oral, BID , Fatoumata Zheng MD, 3.125 mg at collagenase 250 UNIT/GM ointment, , Topical, Daily, Chyna Masterson MANAGER OF PROJECT MANAGEMENT - INTEGRATION ENGINEER, Given at 02/16/24 0849 collagenase 250 UNIT/GM ointment, , Topical, PRN, Chyna Masterson MANAGER OF PROJECT MANAGEMENT - INTEGRATION ENGINEER dextrose 5 % infusion, 100 mL/hr, IntraVENous, PRN, Manuel Atkins MD dextrose 50 % solution 12.5 g, 12.5 g, IntraVENous, PRN, Manuel Atkins MD gabapentin (Neurontin) capsule 100 mg, 100 mg, Oral, BID, Maylin Allen MD, 100 mg at 02/16/24 0846 glucagon (human recombinant) injection 1 mg, 1 mg, IntraMUSCular, PRN, Manuel Atkins MD glucose oral gel 15 g, 15 g, Oral, PRN, Manuel Atkins MD heparin injection 1,200-2,000 Units, 1,200-2,000 Units, IntraCATHeter, PRN, Fatoumata Zheng MD heparin injection 1,200-2,000 Units, 1,200-2,000 Units, IntraCATHeter, PRN, Fatoumata Zheng MD heparin injection 1,900 Units, 1,900 Units, IntraCATHeter, PRN, Matt Quinn MD, 1,900 Units at 02/15/24 1155 heparin injection 2,000 Units, 2,000 Units, IntraCATHeter, PRN, Matt Quinn MD, 2,000 Units at 02/15/24 1156 heparin injection 5,000 Units, 5,000 Units, SubCUTAneous, 3 times per day, Maylin Allen MD, 5,000 Units at 02/16/24 0610 insulin glargine (Lantus) injection 7 Units, 7 Units, SubCUTAneous, Nightly, Manuel Atkins MD, 7 Units at 02/15/242033 Insulin Lispro (Humalog) injection 0-6 Units, 0-6 Units, SubCUTAneous, TID WC, 1 Units at 02/16/24 0847 AND Insulin Lispro (Humalog) injection 0-6 Units, 0- 6 Units, SubCUTAneous, Nightly, Manuel Atkins MD, 1 Units at 02/15/242033 ipratropium-albuterol (Duo-Neb) 0.5-2.5 mg/3 mL nebulizer solution 3 mL, 3 mL, Nebulization, q6h PRN, Maylin Allen MD melatonin tablet 3 mg, 3 mg, Oral, Nightly PRN, Maylin Allen MD, 3 mg at 02/14/242035 mirtazapine (Remeron) tablet 15 mg, 15 mg, Oral, Nightly, Maylin Allen MD, 15 mg at 02/15/242032 pantoprazole (ProtoNix) EC tablet 40 mg, 40 mg, Oral, qAM AC, Maylin Allen MD, 40 mg at 02/16/24 0610 polyethylene glycol (PEG) 3350 (Miralax) packet 17 g, 17 g, Oral, Daily PRN, Maylin Allen MD QUEtiapine (SEROquel) tablet 12.5 mg, 12.5 mg, Oral, q8h PRN, Maylin Allen MD, 12.5 mg at 02/14/24 0538 sevelamer carbonate (Renvela) tablet 800 mg, 800 mg, Oral, TID WC, Maylin Allen MD, 800 mg at 02/16/24 0846 tiotropium (Spiriva Respimat) 2.5 MCG/ACT inhaler 2 puff, 2 puff, Inhalation, Daily, Maylin Patel MD, 2 puff at 02/16/24 0847 Assessment Acute respiratory failure ZOFIA 2/2 ATN 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 No pertinent past medical history. Plan -am labs, replace lytes prn -increase activity -DVT prophylaxis: [] Lovenox [x] Heparin [] SCDs [x] Encourage ambulation [] Already on Anticoagulation Advance Directive: Full Code Family discussion: Anticipated Discharge - Date - 02/17 - Location - home - Pending the following - clinical improvement Total time spent (which include face to face and non face to face encounters) : 41 minutes Fatoumata Zheng MD Division of Hospitalist Medicine Inpatient Medical Services/[facility] [place] * Chris Chong, PT - 02/15/2024 2:30 PM EDT Images from the original note were not included. PHYSICAL THERAPY [facility] Treatment Note Name/MRN: Jose Jhon ([id number]) Date of : 1945 Age: 78 y.o. Room/Bed: W5-526/W5-526 B Discharge Recommendation: Home with assist PRN (cariopulmonary rehab) Equipment Needed: (tbd) Other: pt would benefit from a FWW if he does not have one Prior Level of Function ADL Assistance: Needs Assist Ambulation Assistance: Needs Assistance Transfer Assistance: Needs Assist At REHAB Pt was independent with all self care and mobility prior to his open heart surgery. Assessment The pt is making good progress towards his goals and will continue to benefit from therapy for the listed impairments and to improve his overall functional capacity. Home with assist as needed and outpatient therapy for cardiopulmonary rehab is recommended at discharge. No LOB or unsafe behavior was observed this date. Overall endurance is improving and pt's RN was present for ambulation to assess Oxygen needs. Pt's pulse ox fluctuated from upper 80's into 90's with activity with several litersof oxygen. RN adjusting O2 while ambulating based on pt's O2 sat. No LOB observed, no lightheadedness reported. Subjective Pt in bed and agreed to PT. Pt would like to ambulate. Pain: Pt denies any current pain. Medical Precautions: No active isolations Proper PPE donned/doffed in accordance with facility standards. Fall Risk: Chavez Fall Risk Score: 45 (High Risk) Precautions/Restrictions: Lines/Drains/Airways: O2, bed alarm Overall Cognitive Status: WFL Overall Orientation Status: Oriented x4 Family/Caregiver Present: none Objective Bed Mobility Supine to sit: Supervision Scooting: Supervision Transfers/Mobility Sit to stand: SBA Stand to sit: SBA From EOB Device(s) used: front wheeled walker Ambulation Ambulation 1 Assistive device(s) used: front wheeled walker Assist level: Contact Guard Distance (ft): 200, standing break at 80 ft Quality of gait: step through pattern, no LOB, pt progressed to SBA for ambulation Plan Continue acute PT per plan of care. Safety/Education Safety Safety Devices in place: call light within reach, bed alarm in place, gait belt, nurse notified, and patient left sitting EOB, RN in room upon PT exit Restraints: No Education Education Given To: patient Education Provided: PT Role, Gait Training, and Plan of Care Education Method: Verbal Barriers to Learning: None Education Outcome: Verbalized Understanding Outcome Measures AM-PAC AM-PAC Inpatient Mobility Raw Score (No Stairs) : 19 JH-HLM JH-HLM Score: Walked 25 ft or more (i.e. walked outside of room) Goals Patient Stated Goal: to get stronger Encounter Problems Encounter Problems (Active) Mobility Patient will ambulate 150 feet with independence and least restrictive device in order to improve safety and independence with mobility. (Progressing) Start: 02/13/24 Expected End: 02/27/24 Patient will ascend and descend 2 stairs with least restrictive device and independence in order tosafely negotiate home. (Not Addressed) Start: 02/13/24 Expected End: 02/27/24 Pain - Adult Transfers Patient will perform bed mobility with independence in order to improve independence and prepare for out of bed mobility. (Progressing) Start: 02/13/24 Expected End: 02/27/24 Patient will complete functional transfer with least restrictive device with independence in order to prepare for ambulation. (Progressing) Start: 02/13/24 Expected End: 02/27/24 Therapy Time Individual Co-treatment Time In 1408 (one gait) Time Out 1422 Minutes 14 Timed Code Treatment Minutes: 14 Minutes Chris Chong PT * Mark Anguiano, MANAGER OF PROJECT MANAGEMENT - INTEGRATION ENGINEER - 02/15/2024 1:13 PM EDT Images from the original note were not included. Cardiothoracic Surgery/CCM Progress Note PATIENT NAME: Jose John DATE: 02/15/24 HPI: 78 yo male with PMH of T2DM, HTN, CKD, TIA with no residual (approx 16 years ago), tobacco use (quit 20 years ago), macular degeneration, back surgery, and BPH. He is well known to our service, had aCABG x4 with Dr. Carlin on 11/21/23. His postop course was prolonged r/t ZOFIA on CKD requiring dialysis, respiratory failure 2/2 aspiration PNA, ICU delirium, and multiple thoracentesis r/t volume overload. He was discharged to [facility] on POD #34, was transferred to [facility]. He was readmitted from 01/22/24-01/30/24 with SOB and bilateral pleural effusions. Had multiple thoracentesis and completed course of abx for pneumonia. CTS was consulted at that time for small dehiscence of distal MSI, recommended wet-to-dry dressing changes. He was discharged to [facility]. He returned to [facility] ED from [facility] on 02/12/24 with hypoxia, he was saturating 80% on 3L NC. CXR showed pleural effusions and pulmonary congestion. He received extra UF on 02/11 with 3L removed. CTS consulted for distal MSI wound. Interval History: 02/15/24. Patient sitting up in bed, just finished lunch tray. Tolerated iHD today. Still on HFNC. Patient tearful about progress, feels he was doing well at rehab before having a set back. No acute issues during assessment. Review of Systems Constitutional: Positive for activity change and chills. Negative for diaphoresis and fever. Respiratory: Positive for shortness of breath. Negative for wheezing. Cardiovascular: Negative for palpitations and leg swelling. Gastrointestinal: Negative for abdominal distention, abdominal pain, nausea and vomiting. Skin: Positive for wound. Neurological: Negative for dizziness and light-headedness. Hematological: Bruises/bleeds easily. Objective: Last BM Date: 02/15/24 Vitals: BP: 148/73, MAP (mmHg): 98, BP Method: Automatic Heart Rate: 84 Resp: 16 Temp: 36.7 C (98 F), Temp Source: Temporal BMI (Calculated): 18.41 CT Chest (02/14/24) IMPRESSION: 1. Bilateral moderate pleural effusions, left greater than right, with associated atelectasis. The pleural effusions again demonstrated areas of loculation. 2. There is a skin defect/open wound at the midline inferior to the sternum with history of sternotomy dehiscense of distal incision. 3. Additional findings, as above. BMP: Recent Labs 02/13/24 0023 02/14/24 0315 02/15/24 0337 NA 135 136 132* K 4.1 4.4 4.6 CL 103 102 103 CO2 25 28 24 BUN 38* 24* 38* CREATININE 4.45* 3.63* 5.09* CALCIUM 8.1* 8.6 8.4 CBC: Recent Labs 02/13/24 0001 02/13/24 1020 HGB 9.3 9.1 INR: No results for input(s): INR in the last 72 hours. Physical Exam Vitals reviewed. Constitutional: General: He is not in acute distress. Appearance: He is not ill-appearing or diaphoretic. Cardiovascular: Rate and Rhythm: Normal rate and regular rhythm. Pulses: Normal pulses. Heart sounds: No murmur heard. Pulmonary: Effort: Pulmonary effort is normal. Breath sounds: No wheezing, rhonchi or rales. Abdominal: General: There is no distension. Palpations: Abdomen is soft. Tenderness: There is no abdominal tenderness. Musculoskeletal: Right lower leg: No edema. Left lower leg: No edema. Skin: General: Skin is warm and dry. Capillary Refill: Capillary refill takes less than 2 seconds. Findings: Bruising present. Comments: MSI well approximated and healed until the most inferior portion. New Wound Care dressingin place. No drainage, warmth or redness noted. Neurological: General: No focal deficit present. Mental Status: He is alert and oriented to person, place, and time. Assessment: Dehiscence of distal MSI Multivessel CAD s/p CABG HFrEF (35% 11/2023) ESRD Bilateral pleural effusions Plan: -CT chest reviewed with Dr. Camacho. Continue dressing changes per Wound Care instructions. -Pleural effusions noted on CT, recommend thoracentesis. -No surgical debridement needed at this time. -Echocardiogram ordered to re-assess EF. -Consider Heart Failure consult. -Continue aspirin, statin and BB for previous CABG. A total of 30 minutes were spent between the zohc-[id number] encounter, physical exam, reviewing the medical history, coordinating the patient's care, counseling/educating the patient, ordering medications/test/procedures, interpreting results and documenting clinical information in the patients electr onic health record on the day of the encounter. The patient was seen and examined independently andrelevant data reviewed by myself. A full chart review was performed. * Cristel Madrid, MANAGER OF PROJECT MANAGEMENT - INTEGRATION ENGINEER - 02/15/2024 12:36 PM EDT Images from the original note were not included. [facility] Wound Care Progress Note Jose John AGE: 78 y.o. GENDER: male : 1945 Subjective: HISTORY of PRESENT ILLNESS HPI Jose John is a 78 y.o. male who presents for a wound follow up. HPI: Patient with past medical history of CAD, DM, HTN and ESRD on HD who presented to ED for respiratory failure. Patient had been seen by rehab when staff noted there that he was hypoxic. Patient does not typically use any home O2. Patient pleasant and cooperative to wound assessment. Wound Care consulted for CABG Wound. Treatment applied per wound care service. PAST MEDICAL HISTORY History reviewed. No pertinent past medical history. PAST SURGICAL HISTORY History reviewed. No pertinent surgical history. FAMILY HISTORY No family history on file. SOCIAL HISTORY Social History Tobacco Use Smoking status: Former Types: Cigarettes Smokeless tobacco: Never Substance Use Topics Alcohol use: Not Currently ALLERGIES Allergies Allergen Reactions Lisinopril Wheezing Penicillins Anaphylaxis Sulfa Antibiotics Anaphylaxis Levofloxacin Nausea Only MEDICATIONS No current facility-administered medications on file prior to encounter. Current Outpatient Medications on File Prior to Encounter Medication Sig Dispense Refill acetaminophen (Tylenol) 325 MG tablet Take 650 mg by mouth every 6 hours as needed for mild pain (1-3). amiodarone (Pacerone) 200 MG tablet Take 1 tablet (200 mg) by mouth daily. 0 aspirin 81 MG chewable tablet Chew 1 tablet (81 mg) daily. 0 atorvastatin (Lipitor) 80 MG tablet Take 1 tablet (80 mg) by mouth daily. 0 carvedilol (Coreg) 3.125 MG tablet Take 3.125 mg by mouth in the morning and 3.125 mg in the evening. Take with meals. gabapentin (Neurontin) 100 MG capsule Take 1 capsule (100 mg) by mouth 2 times daily. 0 glucose (Glutose) 40 % gel oral gel Take 15 g by mouth as needed for low blood sugar. Hypoglycemia insulin glargine (Lantus) 100 UNIT/ML injection Inject 7 Units under the skin Nightly. ipratropium-albuterol (Duo-Neb) 0.5-2.5 mg/3 mL nebulizer solution Take 3 mL by nebulization 3 times daily as needed for wheezing or shortness of breath. (Patient taking differently: Take 3 mL by nebulization every 6 hours as needed for wheezing or shortness of breath.) 0 Melatonin 3 MG capsule Take 6 mg by mouth Nightly. midodrine (Proamatine) 2.5 MG tablet Take 2.5 mg by mouth 3 times daily as needed. Prior to OT/PT Hold for SBP >120 mirtazapine (Remeron) 15 MG tablet Take 15 mg by mouth Nightly. pantoprazole (ProtoNix) 40 MG EC tablet Take 40 mg by mouth every morning (before breakfast). Do not crush, chew, or split. polyethylene glycol, PEG, 3350 (Miralax) 17 g packet Take 17 g by mouth daily. QUEtiapine (SEROquel) 25 MG tablet Take 0.5 tablets (12.5 mg) by mouth every 8 hours as needed (Confusion, agitation). 1 tablet 0 sevelamer carbonate (Renvela) 800 MG tablet Take 800 mg by mouth in the morning and 800 mg at noon and 800 mg in the evening. Take with meals. Swallow tablet whole; do not crush, break, or chew.. tiotropium (Spiriva Respimat) 2.5 MCG/ACT inhaler Inhale 2 puffs daily. 1 each 11 [DISCONTINUED] linaGLIPtin (Tradjenta) 5 MG tablet test 30 tablet 0 REVIEW OF SYSTEMS Pertinent items are noted in HPI. Objective: BP 148/73 (BP Location: Right arm, Patient Position: Lying) Pulse 84 Temp 36.7 C (98 F) (Temporal) Resp 16 Ht 5' 10 (1.778 m) Wt 128 lb 4.8 oz (58.2 kg) SpO2 99% BMI 18.41 kg/m PHYSICAL EXAM General appearance: in no apparent distress Skin: warm and dry Pulmonary: Normal effort, no respiratory distress, no cyanosis Abdomen: soft, nontender, and nondistended Sternum 3x 2x utd cm. Wound bed with small pink tissue and and large slough. Moderate amount of serous drainage. Elana-wound intact and fragile. LABS CBC: Lab Results Component Value Date HGB 9.1 02/13/2024 BMP: Lab Results Component Value Date NA 132 (L) 02/15/2024 K 4.6 02/15/2024 CL 103 02/15/2024 CO2 24 02/15/2024 BUN 38 (H) 02/15/2024 CREATININE 5.09 (H) 02/15/2024 PT/INR: No results found for: PROTIME, INR Prealbumin: No results found for: PREALBUMIN Albumin:No components found for: LABALBU Sed Rate:No results found for: SEDRATE Micro: No components found for: BC Assessment/Plan: Sternum NHSW (dehiscence) - Cleanse with NS, apply Santyl to wound bed, lightly pack with mesalt. Cover with foam dressing. Change Daily and PRN Nutritional support Wound Care to follow Recommend to follow up at [facility] after hospital discharge. Any questions or concerns please secure chat [facility] wound/ostomy. Thank you for the consult! I personally obtained the alexandre and critical portions of the history and physical exam. I reviewed the labs, imaging studies, and electronic medical record. I reviewed the chart documentation and discussed the patient with treatment team members. I have edited the note to reflect my clinical findingsand my assessment and plan. Please note, the time of this note does not reflect the time I saw thispatient today, but the time of this documentaton. Portions of this note including HPI, ROS, impression/plan, and examination may have been copied forward from admission to today as to provide important historical information essential in contributing to medical decision making. Documentation has been reviewed and edited as necessary to support clinical decision making for today's visit and to reflect my own independent evaluation of this patient. Decision making for today's visit and to reflectmy own independent evaluation of this patient. * Matt Quinn MD - 02/15/2024 10:18 AM EDT [facility] Progress Note Following for dialysis dependent ZOFIA Patient seen during dialysis Vitals: BP 92/50 Pulse 78 Temp 37.7 C (99.9 F) Resp 18 Ht 1.778 m (5' 10) Wt 58.2 kg (128 lb 4.8oz) SpO2 99% BMI 18.41 kg/m BLOOD PRESSURE RANGE: Systolic (24hrs), Av , Min:92 , Max:169 ; Diastolic (24hrs), Av, Min:39, Max:99 24HR INTAKE/OUTPUT: Intake/Output Summary (Last 24 hours) at 02/15/2024 1029 Last data filed at 02/15/2024 0633 Gross per 24 hour Intake 400 ml Output 225 ml Net 175 ml Physical exam: Constitutional: NAD appreciated Data: Labs: Recent Labs 02/13/24 0001 02/13/24 1020 HGB 9.3 9.1 Recent Labs 02/13/24 0023 02/14/24 0315 02/15/24 0337 NA 135 136 132* K 4.1 4.4 4.6 CL 103 102 103 CO2 25 28 24 GLUCOSE 188* 170* 180* CALCIUM 8.1* 8.6 8.4 BUN 38* 24* 38* CREATININE 4.45* 3.63* 5.09* Assessment: Jose John is a 78 y.o. male with hx including CAD, DM, HTN [facility] Nephrology following for ZOFIA/CKD. ZOFIA/CKD -previously CKD stage 4 -COTTAGE [employer] was started back in 11/22/2023 -has been on MWF schedule -seen during HD -poor solute clearance recently HTN -BP has been with control recently Volume -ultrafiltration with HD Electrolytes -stabilization with HD Acid/base -stabilization with HD Anemia -Hgb low at 9.1 on recent value, stable CKD MBD -Ca okay Plan: -continue HD on MWF schedule -monitor for recovery, may end up ESRD MALINA Torres CNP Pt seen and examined independently by me. I reviewed with SABRINA Murcia the medical history and the findings on physical examination. I discussed the patient s diagnosis and concur with the treatment plan as documented in his note. Please call [phone] or message me through [employer] with any questions or concerns. * Fatoumata Zheng MD - 02/15/2024 9:55 AM EDT Hospitalist Progress Note 02/15/2024 Subjective: Admit Date: 02/12/2024 PCP: OLENA GABRIEL Room#: [id number] Shavonne Smith is a 78 y.o. male with past medical history of CAD, DM, HTN and ESRD on HD who presented to ED for respiratory failure. Patient had been seen by rehab when staff noted there that he was hypoxic. Patient does not typically use any home O2. Placed him on 6 L nonrebreather and called EMS. EMS remove the nonrebreather and put him on 3 L nasal cannula and brought him to the ED. Here he is saturating 80% on 3 L but when increased to 6 L O2 sat normalized. Has shortness of breath but denies any chest pain, fever, chills, abdominal pain. He is ESRD on dialysis and receives this Sunday. Last session was yesterday. In ED transition to 8 L and saturating at 99 to 100%. He received ultrafiltration/HD Interval History: No new issues No sob, on 9 Liters O2 Denies cp, nausea Tolerating diet Adult diet Regular; Low Sodium (2 gm); 2000 ml 3 Day Weight Change: -3 lb 3.7 oz (-1.467 kg) per day 24HR INTAKE/OUTPUT: Intake/Output Summary (Last 24 hours) at 02/15/2024 0955 Last data filed at 02/15/2024 0633 Gross per 24 hour Intake 400 ml Output 225 ml Net 175 ml Past Medical History: History reviewed. No pertinent past medical history. LABS: CBC: Recent Labs 02/13/24 0001 02/13/24 1020 HGB 9.3 9.1 BMP: Recent Labs 02/13/24 0023 02/14/24 0315 02/15/24 0337 NA 135 136 132* K 4.1 4.4 4.6 CL 103 102 103 CO2 25 28 24 BUN 38* 24* 38* CREATININE 4.45* 3.63* 5.09* GLUCOSE 188* 170* 180* CALCIUM 8.1* 8.6 8.4 ANIONGAP 7 5 6 LIVER PROFILE: No results for input(s): AST, ALT, BILITOT, ALKPHOS, PROT in the last 72 hours. No lab exists for component: LABALBU PT/INR: No results for input(s): PROTIME, INR in the last 72 hours. CARDIAC ENZYMES: No results for input(s): TROPONINI in the last 72 hours. Procalcitonin: No results found for: PROCAL COVID-19 PCR: No results for input(s): COVID19 in the last 72 hours. Encounter Date: 02/12/24 ECG 12 lead (Now) Result Value Heart Rate 75 QRSD Interval 177 QT Interval 498 QTC Interval 555 P Olean 35 QRS Olean 140 T Wave Olean 47 OR Interval 142 Impression Sinus rhythm Right bundle branch block Electronically Signed On 02-12-2024 13:08:36 EDT by [facility] Transthoracic echocardiogram (TTE) complete with contrast, bubble, strain, and 3D PRN Result Date: 11/16/2023 Left Ventricle: Left ventricle size is normal. Mildly increased wall thickness. Low normal left ventricular systolic function. EF by 2D Simpsons Biplane is 49%. Normal wall motion. Right Ventricle: Not well visualized. Right ventricle size is normal. Normal systolic function. TAPSE is 2.1 cm. Tricuspid Valve: Moderately elevated RVSP. RVSP is 50 mmHg. Aorta: Not well visualized. Normal sized sinuses of Valsalva and ascending aorta. Sinuses of Valsalva diameter is 3.2 cm. IVC/SVC: IVC diameter is dilated and decreases less than 50% during inspiration; therefore the estimated right atrial pressure is elevated (~15 mmHg). No significant valvular abnormalities. Technically difficult study. @IMAGES@ Objective: Vitals: BP 129/55 Pulse 74 Temp 37.7 C (99.9 F) Resp 18 Ht 5' 10 (1.778 m) Wt 128 lb 4.8oz (58.2 kg) SpO2 99% BMI 18.41 kg/m Pulse Ox: SpO2 Av.4 % Min: 93 % Max: 100 % Supplemental O2: O2 Flow Rate (L/min): 9 L/min General appearance: No apparent distress, lethargic HEENT: Eyes: No scleral icterus Oral: Tongue is semi-moist Cardiovascular: S1/S2 heard, RRR Respiratory: diminished bs at bases with poor effort Abdomen: Soft, non-tender, non-distended bowel sounds positive Musculoskeletal: distal sternum incision open wound with wet to dry dressing. Medications: Current Facility-Administered Medications: acetaminophen (Tylenol) tablet 650 mg, 650 mg, Oral, q6h PRN OR acetaminophen (Tylenol) suppository 650 mg, 650 mg, Rectal, q6h PRN, Maylin Allen MD amiodarone (Pacerone) tablet 200 mg, 200 mg, Oral, Daily, Maylin Allen MD, 200 mg at 02/14/24 0845 aspirin chewable tablet 81 mg, 81 mg, Oral, Daily, Maylin Allen MD, 81 mg at 845 atorvastatin (Lipitor) tablet 80 mg, 80 mg, Oral, Daily, Maylin Allen MD, 80 mg at 02/14/24 0845 carvedilol (Coreg) tablet 3.125 mg, 3.125 mg, Oral, BID WC, Fatoumata Zheng MD, 3.125 mg at 756 collagenase 250 UNIT/GM ointment, , Topical, Daily, Chyna Masterson APRN - INTEGRATION ENGINEER, Given at 02/14/241756 collagenase 250 UNIT/GM ointment, , Topical, PRN, Chyna Masterson MANAGER OF PROJECT MANAGEMENT - INTEGRATION ENGINEER dextrose 5 % infusion, 100 mL/hr, IntraVENous, PRN, Manuel Atkins MD dextrose 50 % solution 12.5 g, 12.5 g, IntraVENous, PRN, Manuel Atkins MD gabapentin (Neurontin) capsule 100 mg, 100 mg, Oral, BID, Maylin Allen MD, 100 mg at 02/14/242035 glucagon (human recombinant) injection 1 mg, 1 mg, IntraMUSCular, PRN, Manuel Atkins MD glucose oral gel 15 g, 15 g, Oral, PRN, Manuel Atkins MD heparin injection 1,200-2,000 Units, 1,200-2,000 Units, IntraCATHeter, PRN, Fatoumata Zheng MD heparin injection 1,200-2,000 Units, 1,200-2,000 Units, IntraCATHeter, PRN, Fatoumata Zheng MD heparin injection 1,900 Units, 1,900 Units, IntraCATHeter, PRN, Matt Quinn MD, 1,900 Units at 02/13/24 1635 heparin injection 2,000 Units, 2,000 Units, IntraCATHeter, PRN, Matt Quinn MD, 2,000 Units at 02/13/24 1635 heparin injection 5,000 Units, 5,000 Units, SubCUTAneous, 3 times per day, Maylin Allen MD, 5,000 Units at 02/15/248 insulin glargine (Lantus) injection 7 Units, 7 Units, SubCUTAneous, Nightly, Manuel Atkins MD, 7 Units at 02/14/242029 Insulin Lispro (Humalog) injection 0-6 Units, 0-6 Units, SubCUTAneous, TID WC, 1 Units at 02/14/241756 AND Insulin Lispro (Humalog) injection 0-6 Units, 0- 6 Units, SubCUTAneous, Nightly, Manuel Atkins MD, 1 Units at 02/14/242035 ipratropium-albuterol (Duo-Neb) 0.5-2.5 mg/3 mL nebulizer solution 3 mL, 3 mL, Nebulization, q6h PRN, Maylin Allen MD melatonin tablet 3 mg, 3 mg, Oral, Nightly PRN, Maylin Allen MD, 3 mg at 02/14/242035 mirtazapine (Remeron) tablet 15 mg, 15 mg, Oral, Nightly, Maylin Allen MD, 15 mg at 02/14/242030 pantoprazole (ProtoNix) EC tablet 40 mg, 40 mg, Oral, qAM AC, Maylin Allen MD, 40 mg at 02/15/24447 perflutren protein A microsphere (Optison) 3 mL in sodium chloride (PF) 0.9 % 10 mL IV syringe, 0-10 mL, IntraVENous, Once PRN, Dora Madden, MANAGER OF PROJECT MANAGEMENT - INTEGRATION ENGINEER polyethylene glycol (PEG) 3350 (Miralax) packet 17 g, 17 g, Oral, Daily PRN, Maylin Allen MD QUEtiapine (SEROquel) tablet 12.5 mg, 12.5 mg, Oral, q8h PRN, Maylin Allen MD, 12.5 mg at 02/14/24 0538 sevelamer carbonate (Renvela) tablet 800 mg, 800 mg, Oral, TID WC, Maylin Allen MD, 800 mg at 02/14/24 1756 tiotropium (Spiriva Respimat) 2.5 MCG/ACT inhaler 2 puff, 2 puff, Inhalation, Daily, Maylin Patel MD, 2 puff at 02/14/24 1005 Assessment Acute respiratory failure 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 No pertinent past medical history. Plan -am labs, replace lytes prn -increase activity -DVT prophylaxis: [] Lovenox [x] Heparin [] SCDs [x] Encourage ambulation [] Already on Anticoagulation Advance Directive: Full Code Family discussion: Anticipated Discharge - Date - 02/16 - Location - rehab - Pending the following - clinical improvement Total time spent (which include face to face and non face to face encounters) : 45 minutes Fatoumata Zheng MD Division of Hospitalist Medicine Inpatient Medical Services/[facility] [place] * Matt Quinn MD - 02/14/2024 10:38 AM EDT [facility] Progress Note Following for ZOFIA/CKD Subjective: Denied SOB IR attempt thora today (R>L) t Upon my evaluation the pt's oxygen is normal on 9L Vitals: BP 127/63 (BP Location: Right arm, Patient Position: Sitting) Pulse 73 Temp 37.3 C (99.2 F) (Temporal) Resp 18 Ht 1.778 m (5' 10) Wt 58.7 kg (129 lb 4.8 oz) SpO2 98% BMI 18.55 kg/m BLOOD PRESSURE RANGE: Systolic (24hrs), Av , Min:80 , Max:134 ; Diastolic (24hrs), Av, Min:44, Max:84 24HR INTAKE/OUTPUT: Intake/Output Summary (Last 24 hours) at 02/14/2024 1038 Last data filed at 02/14/2024 0602 Gross per 24 hour Intake 650 ml Output -- Net 650 ml Physical exam: NAD Was alert Data: Labs: Recent Labs 02/12/24 0234 02/13/24 0001 02/13/24 1020 WBC 7.2 -- -- HGB 9.3* 9.3 9.1 HCT 29.8* -- -- MCV 94.6 -- -- PLT 184 -- -- Recent Labs 02/12/24 0234 02/13/24 0023 02/14/24 0315 NA 135 135 136 K 4.1 4.1 4.4 CL 99 103 102 CO2 28 25 28 GLUCOSE 156* 188* 170* CALCIUM 8.6 8.1* 8.6 BUN 30* 38* 24* CREATININE 3.89* 4.45* 3.63* Assessment: Jose John is a 78 y.o. male with hx including CAD, DM, HTN who [facility]. Nephrology following for ZOFIA/CKD. 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 male with past medical history of CAD, DM, HTN and ESRD on HD who presented to ED for respiratory failure. Patient had been seen by rehab when staff noted there that he was hypoxic. Patient does not typically use any home O2. Placed him on 6 L nonrebreather and called EMS. EMS remove the nonrebreather and put him on 3 L nasal cannula and brought him to the ED. Here he is saturating 80% on 3 L but when increased to 6 L O2 sat normalized. Has shortness of breath but denies any chest pain, fever, chills, abdominal pain. He is ESRD on dialysis and receives this Sunday. Last session was yesterday. In ED transition to 8 L and saturating at 99 to 100%. He got ultrafiltration yesterday Interval History: No event overnight Alert oriented pleasant No cp Sob improved, still on 9 Liters Discussed with CTS at bedside Adult diet Regular; Low Sodium (2 gm); 2000 ml 3 Day Weight Change: Unable to Calculate 24HR INTAKE/OUTPUT: Intake/Output Summary (Last 24 hours) at 02/14/2024 0927 Last data filed at 02/14/2024 0602 Gross per 24 hour Intake 650 ml Output -- Net 650 ml Past Medical History: History reviewed. No pertinent past medical history. LABS: CBC: Recent Labs 02/12/24 0234 02/13/24 0001 02/13/24 1020 WBC 7.2 -- -- RBC 3.15* -- -- HGB 9.3* 9.3 9.1 HCT 29.8* -- -- MCV 94.6 -- -- RDW 16.8* -- -- PLT 184 -- -- BMP: Recent Labs 02/12/24 0234 02/13/24 0023 02/14/24 0315 NA 135 135 136 K 4.1 4.1 4.4 CL 99 103 102 CO2 28 25 28 BUN 30* 38* 24* CREATININE 3.89* 4.45* 3.63* GLUCOSE 156* 188* 170* CALCIUM 8.6 8.1* 8.6 ANIONGAP 8 7 5 LIVER PROFILE: Recent Labs 02/12/24233 AST 31 ALT 32 BILITOT 0.5 ALKPHOS 84 PROT 6.4 PT/INR: No results for input(s): PROTIME, INR in the last 72 hours. CARDIAC ENZYMES: Recent Labs 02/12/24233 02/12/24 0638 02/12/24 0858 TROPONINI 0.020 0.024 0.023 Procalcitonin: No results found for: PROCAL COVID-19 PCR: No results for input(s): COVID19 in the last 72 hours. Encounter Date: 02/12/24 ECG 12 lead (Now) Result Value Heart Rate 75 QRSD Interval 177 QT Interval 498 QTC Interval 555 P Olean 35 QRS Olean 140 T Wave Olean 47 OR Interval 142 Impression Sinus rhythm Right bundle branch block Electronically Signed On 02-12-2024 13:08:36 EDT by [facility] Transthoracic echocardiogram (TTE) complete with contrast, bubble, strain, and 3D PRN Result Date: 11/16/2023 Left Ventricle: Left ventricle size is normal. Mildly increased wall thickness. Low normal left ventricular systolic function. EF by 2D Simpsons Biplane is 49%. Normal wall motion. Right Ventricle: Not well visualized. Right ventricle size is normal. Normal systolic function. TAPSE is 2.1 cm. Tricuspid Valve: Moderately elevated RVSP. RVSP is 50 mmHg. Aorta: Not well visualized. Normal sized sinuses of Valsalva and ascending aorta. Sinuses of Valsalva diameter is 3.2 cm. IVC/SVC: IVC diameter is dilated and decreases less than 50% during inspiration; therefore the estimated right atrial pressure is elevated (~15 mmHg). No significant valvular abnormalities. Technically difficult study. @IMAGES@ Objective: Vitals: BP 127/63 (BP Location: Right arm, Patient Position: Sitting) Pulse 73 Temp 37.3 C (99.2 F) (Temporal) Resp 18 Ht 5' 10 (1.778 m) Wt 129 lb 4.8 oz (58.7 kg) SpO2 98% BMI 18.55 kg/m Pulse Ox: SpO2 Av.7 % Min: 92 % Max: 100 % Supplemental O2: O2 Flow Rate (L/min): 9 L/min General appearance: No apparent distress, lethargic HEENT: Eyes: No scleral icterus Oral: Tongue is semi-moist Cardiovascular: S1/S2 heard, RRR Respiratory: diminished bs at bases with poor effort Abdomen: Soft, non-tender, non-distended bowel sounds positive Musculoskeletal: previous CABG surgical site open wound with wet to dry dressing. Medications: Current Facility-Administered Medications: acetaminophen (Tylenol) tablet 650 mg, 650 mg, Oral, q6h PRN OR acetaminophen (Tylenol) suppository 650 mg, 650 mg, Rectal, q6h PRN, Maylin Allen MD amiodarone (Pacerone) tablet 200 mg, 200 mg, Oral, Daily, Maylin Allen MD, 200 mg at 02/14/24 0845 aspirin chewable tablet 81 mg, 81 mg, Oral, Daily, Maylin Allen MD, 81 mg at atorvastatin (Lipitor) tablet 80 mg, 80 mg, Oral, Daily, Maylin Allen MD, 80 mg at 02/14/24 08 carvedilol (Coreg) tablet 3.125 mg, 3.125 mg, Oral, BID WC, Fatoumata Zheng MD, 3.125 mg at dextrose 5 % infusion, 100 mL/hr, IntraVENous, PRN, Manuel Atkins MD dextrose 50 % solution 12.5 g, 12.5 g, IntraVENous, PRN, Manuel Atkins MD gabapentin (Neurontin) capsule 100 mg, 100 mg, Oral, BID, Maylin Allen MD, 100 mg at 02/14/24 0845 glucagon (human recombinant) injection 1 mg, 1 mg, IntraMUSCular, PRN, Manuel Atkins MD glucose oral gel 15 g, 15 g, Oral, PRN, Manuel Atkins MD heparin injection 1,900 Units, 1,900 Units, IntraCATHeter, PRN, Matt Quinn MD, 1,900 Units at 02/13/24 163 heparin injection 2,000 Units, 2,000 Units, IntraCATHeter, PRN, Matt Quinn MD, 2,000 Units at 02/13/24 1635 heparin injection 5,000 Units, 5,000 Units, SubCUTAneous, 3 times per day, Maylin Allen MD, 5,000 Units at 02/14/24 0538 insulin glargine (Lantus) injection 7 Units, 7 Units, SubCUTAneous, Nightly, Manuel Atkins MD, 7 Units at 02/13/242000 Insulin Lispro (Humalog) injection 0-6 Units, 0-6 Units, SubCUTAneous, TID WC AND Insulin Lispro (Humalog) injection 0-6 Units, 0-6 Units, SubCUTAneous, Nightly, Manuel Atkins MD, 2 Units at 02/13/242003 ipratropium-albuterol (Duo-Neb) 0.5-2.5 mg/3 mL nebulizer solution 3 mL, 3 mL, Nebulization, q6h PRN, Maylin Allen MD melatonin tablet 3 mg, 3 mg, Oral, Nightly PRN, Maylin Allen MD, 3 mg at 02/13/241999 mirtazapine (Remeron) tablet 15 mg, 15 mg, Oral, Nightly, Maylin Allen MD, 15 mg at 02/13/241999 pantoprazole (ProtoNix) EC tablet 40 mg, 40 mg, Oral, qAM AC, Maylin Allen MD, 40 mg at 02/14/24 0538 polyethylene glycol (PEG) 3350 (Miralax) packet 17 g, 17 g, Oral, Daily PRN, Maylin Allen MD QUEtiapine (SEROquel) tablet 12.5 mg, 12.5 mg, Oral, q8h PRN, Maylin Allen MD, 12.5 mg at 02/14/24 0538 sevelamer carbonate (Renvela) tablet 800 mg, 800 mg, Oral, TID WC, Maylin Allen MD, 800 mg at 02/14/24 0845 tiotropium (Spiriva Respimat) 2.5 MCG/ACT inhaler 2 puff, 2 puff, Inhalation, Daily, Maylin Patel MD, 2 puff at 02/13/24 0951 Assessment Acute respiratory failure ESRD HD Pleural effusion DM with hyperglycemia CAD Hx CABG Hypotension -on HF O2, wean as able -ICU evaluated, remains on GMF -HD per nephrology -may need thoracentesis, CT chest ordered -duoneb -wound care for open wound in CABG site -consult CTS, plan TTE, CT chest -parameter for soft BP History reviewed. No pertinent past medical history. Plan -am labs, replace lytes prn -increase activity -DVT prophylaxis: [] Lovenox [x] Heparin [] SCDs [x] Encourage ambulation [] Already on Anticoagulation Advance Directive: Full Code Family discussion: Anticipated Discharge - Date - 02/14? - Location - Home - Pending the following - clinical improvement Total time spent (which include face to face and non face to face encounters) : 51 minutes Fatoumata Zheng MD Division of Hospitalist Medicine Inpatient Medical Services/[facility] [place] * Matt uQinn MD - 02/13/2024 2:56 PM EDT [facility] Progress Note Following for ZOFIA/CKD Seen during dialysis. Subjective: Denied SOB Vitals: BP 132/72 Pulse 69 Temp 36.6 C (97.9 F) Resp 18 Ht 1.778 m (5' 10) Wt 61.3 kg (135 lb 3.2 oz) SpO2 92% BMI 19.40 kg/m BLOOD PRESSURE RANGE: Systolic (24hrs), Av , Min:90 , Max:153 ; Diastolic (24hrs), Av, Min:51, Max:98 24HR INTAKE/OUTPUT: Intake/Output Summary (Last 24 hours) at 02/13/2024 1503 Last data filed at 02/12/2024 2116 Gross per 24 hour Intake 500 ml Output -- Net 500 ml Physical exam: NAD Was alert Data: Labs: Recent Labs 02/12/24 0234 02/13/24 0001 02/13/24 1020 WBC 7.2 -- -- HGB 9.3* 9.3 9.1 HCT 29.8* -- -- MCV 94.6 -- -- PLT 184 -- -- Recent Labs 02/12/24 0234 02/13/24 0023 NA 135 135 K 4.1 4.1 CL 99 103 CO2 28 25 GLUCOSE 156* 188* CALCIUM 8.6 8.1* BUN 30* 38* CREATININE 3.89* 4.45* Assessment: Jose John is a 78 y.o. male with hx including CAD, DM, HTN who presented from [facility] with respiratory failure. Nephrology following for ZOFIA/CKD. 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 I reviewed with SABRINA Murcia the medical history and the findings on physical examination. I discussed the patient s diagnosis and concur with the treatment plan as documented in his note. Please call [phone] or message me through [employer] with any questions or concerns. * Lisandra Crespo RN - 02/13/2024 2:51 PM EDT Patient Name: Jose John Patient : 1945 Acct: [id number] Date of Admission: 02/12/2024 Room/Bed: [facility] Code Status: Full Code Allergies: Allergies Allergen Reactions Lisinopril Wheezing Penicillins Anaphylaxis Sulfa Antibiotics Anaphylaxis Levofloxacin Nausea Only Diagnosis: Patient Active Problem List Diagnosis Unstable angina ([facility]) ([facility]) Coronary artery disease Multi-vessel coronary artery stenosis Carotid artery bruit Carotid arterial disease ([facility]) NSTEMI (non-ST elevated myocardial infarction) ([facility]) CKD (chronic kidney disease) stage 4, GFR 15-29 ml/min ([facility]) Cardiomyopathy, ischemic S/P CABG (coronary artery bypass graft) Severe malnutrition ([facility]) ([facility]) Shortness of breath Pleural effusion Treatment: Hemodilaysis 2:1 Priority: Routine Location: Acute Room Diabetic: Yes NPO: No Isolation Precautions: Dialysis Consent for Treatment Verified: Yes Blood Consent Verified: Not Applicable ICEBOAT: Identify, Consent, Equipment, HepB Status, Orders Complete, Access Verified, Timeliness (o2 and wall suction bedside) Second Clinician Verifying: Lisandra Crespo Time out performed prior to access at 1318 Report Received from Primary RN at 0740 Primary RN (First Initial, Last Name, Title): Cathi Jensen Rn Incapacitated Nurse Education Completed: Yes NC HBsAg ONLY: Date Drawn: 02/05/2024 Results: Negative HBsAb: Date Drawn: 02/05/2024 Results: Unknown Order Dialyzer: Revaclear 300 Na+ Modeling: Not Applicable Dialysate Temperature (C): 36 Blood Flow Rate (BFR): 400 Dialysate Flow Rate (DFR): 600 Access to be Utilized Access: Tunneled Catheter Location: Internal Jugular Side: Right Needle gauge: Not Applicable + Bruit/Thrill: Not Applicable First Use X-ray Verified: Not Applicable OK to use line order: Not Applicable Site Assessment: Signs and Symptoms of Infection/Inflammation: None If yes: Not Applicable Dressing: Dry and Intact Site Prep: Medical Aseptic Technique Dressing Changed this Treatment: No If yes, by whom: NA - not changed today Date of Last Dressing Change: 02/12/[address]?: Yes Red Alcohol Caps in place?: Yes Gauze Dressing?: No Non-Dialysis Use?: No Comment: Flows: Good and Patent If access problem, who was notified: Pre and Post-Assessment Patient Vitals for the past 8 hrs: Level of Consciousness Oriented X Heart Rhythm Respiratory Pattern O2 Device Bilateral Breath Sounds Skin Color Skin Condition/Temp Abdomen Inspection Bowel Sounds (All Quadrants) 02/13/24 1212 -- -- -- -- -- Clear;Diminished -- -- Soft Active 02/13/24 1321 Alert (0) 3 Regular Other (Comment) Nasal cannula Diminished Irwin Warm;Dry;No swelling Soft Active 02/13/24 1624 Alert (0) 3 Regular -- Nasal cannula Diminished Irwin Warm;Dry;No swelling -- -- Labs Lab Results Component Value Date/Time WBC 7.2 02/12/2024 0234 HGB 9.1 02/13/2024 1020 HCT 29.8 (L) 02/12/2024 0234 PLT 184 02/12/2024 0234 NA 135 02/13/2024 0023 K 4.1 02/13/2024 0023 CL 103 02/13/2024 0023 CO2 25 02/13/202422 BUN 38 (H) 02/13/202422 CREATININE 4.45 (H) 02/13/202422 CALCIUM 8.1 (L) 02/13/202422 PHOS 4.0 02/06/2024 0610 IV Drips and Rate/Dose Safety - Before each treatment: Dialysis Machine No.: [id number] RO Machine Number: [id number] Dialyzer Lot No.: [id number] Tubing Lot Number: [id number] [employer] Secure: Yes Venous Parameters Set: Yes Arterial Parameters Set: Yes NS Bag: Yes Saline Line Double Clamped: Yes Dialyzer: Revaclear 300 Prime Volume (mL): 200 mL RO Machine Number: [id number] RO Machine Log Sheet Completed: Yes Machine Alarm Self Test: Completed, Passed (1300) (02/13/24 1305) Air Foam Detector: Tested, Proper Function, pH Reading Extracorporeal Circuit Tested for Integrity: Yes Machine Conductivity: 13.8 Manual Conductivity: 13.6 Manual Ph: 7.2 Bleach Test (Neg): Yes Conductivity Meter Serial #: [id number] Machine Functioning Alarm Free? Yes Dialysis Bath: K+ (Potassium): 3 Ca+ (Calcium): 2.5 Na+ (Sodium): 137 HCO3 (Bicarb): 32 Chlorine Testing - Before each treatment and every 4 hours: Time On: 1321 Time Off: 1621 Treatment Goal: 1-3L Weight Height: 177.8 cm (5' 10) (02/12/24 0203) Weight: 61.3 kg (135 lb 3.2 oz) (02/13/2416) BMI (Calculated): 19.4 (02/13/247) 1st check: less than 0.1 ppm at: 1145 2nd check: less than 0.1 ppm at: 1445 3rd check: Not Applicable (if greater than 0.1 ppm, then check every 30 minutes from secondary) Access Flows and Pressures Patient Vitals for the past 8 hrs: Blood Flow Rate (mL/min) Ultrafiltration Rate (ml/hr) Arterial Pressure (mmHg) Venous Pressure (mmHg) TMP DFR Access Visible Intra-Hemodialysis Comments 02/13/24 1321 200 mL/min 830 ml/hr -60 mmHg 40 mmHg 30 600 Yes Tx initiated call ligth within reach 02/13/24 1323 400 mL/min 830 ml/hr -170 mmHg 210 mmHg 50 600 Yes Bfr increased 02/13/24 1330 400 mL/min 830 ml/hr -200 mmHg 210 mmHg 60 600 Yes Pt stable rmv 212 02/13/24 1345 400 mL/min 830 ml/hr -200 mmHg 210 mmHg 60 600 Yes Lines secure rmv 404 02/13/24 1400 400 mL/min 830 ml/hr -210 mmHg 210 mmHg 60 600 Yes Pt resting rmv 562 02/13/24 1415 400 mL/min 830 ml/hr -220 mmHg 200 mmHg 60 600 Yes Pt resting rmv 782 02/13/24 1430 400 mL/min 830 ml/hr -220 mmHg 190 mmHg 60 600 Yes Pt stable [id number] 02/13/24 1445 400 mL/min 830 ml/hr -220 mmHg 200 mmHg 60 600 Yes Pt awake alert watching tv. rmv 1189 02/13/24 1500 400 mL/min 830 ml/hr -220 mmHg 200 mmHg 60 600 Yes Pt resting rmv 1387 02/13/24 1515 400 mL/min 830 ml/hr -220 mmHg 200 mmHg 60 600 Yes PT stable rmv 1598 02/13/24 1530 400 mL/min 830 ml/hr -230 mmHg 210 mmHg 60 600 Yes Pt awake alert rmv 1787 02/13/24 1549 400 mL/min 830 ml/hr -230 mmHg 200 mmHg 60 600 Yes Lines secure rmv 2038 02/13/24 1600 400 mL/min 830 ml/hr -230 mmHg 200 mmHg 60 600 Yes Pt resting rmv 2229 02/13/24 1615 400 mL/min 0 ml/hr -230 mmHg 200 mmHg 40 600 Yes Uf off for remainder of tx rmv 2400 02/13/24 162 -- -- -- -- -- -- -- Tx completed rmv 2400 Vital Signs Patient Vitals for the past 24 hrs: BP Temp Temp src Pulse Resp SpO2 Weight 02/13/24 1625 114/55 36.7 C (98 F) -- 67 -- -- -- 02/13/24 1621 (!) 80/45 -- -- 80 -- -- -- 02/13/24 1615 (!) 84/44 -- -- 84 -- -- -- 02/13/24 1600 (!) 90/49 -- -- 64 -- -- -- 02/13/24 1549 108/56 -- -- 66 -- -- -- 02/13/24 1530 114/57 -- -- 66 -- -- -- 02/13/24 1515 119/60 -- -- 96 -- -- -- 02/13/24 1500 114/68 -- -- 88 -- -- -- 02/13/24 1445 132/72 -- -- 69 -- -- -- 02/13/24 1430 98/78 -- -- 81 -- -- -- 02/13/24 1415 113/53 -- -- 69 -- -- -- 02/13/24 1400 123/62 -- -- 80 -- -- -- 02/13/24 1345 104/84 -- -- 84 -- -- -- 02/13/24 1330 106/67 -- -- 88 -- -- -- 02/13/24 1323 130/61 -- -- 64 -- -- -- 02/13/24 1321 134/59 -- -- 65 -- -- -- 02/13/24 1318 134/51 36.6 C (97.9 F) -- 84 18 92 % -- 02/13/24 1121 123/62 36.6 C (97.9 F) Temporal 69 18 100 % -- 02/13/24 0916 153/72 -- -- 72 16 98 % -- 02/13/24 0745 150/63 36.6 C (97.9 F) Temporal 68 16 100 % -- 02/13/24 0318 131/58 36.3 C (97.3 F) Temporal 68 16 96 % -- 02/13/24 0017 150/69 36.7 C (98 F) Temporal 71 -- 100 % 61.3 kg (135 lb 3.2 oz) 02/13/24 0007 -- -- -- -- -- 99 % -- 02/12/24 2333 144/66 -- -- 72 19 96 % -- 02/12/24 1922 -- -- -- -- -- -- 61.3 kg (135 lb 3.2 oz) 02/12/240 129/51 36.6 C (97.8 F) Temporal 71 16 100 % -- 02/12/24 190 99/54 -- -- 69 18 97 % -- 02/12/24 1828 90/75 -- -- 69 18 100 % -- Post-Dialysis Arterial Catheter Locking Solution: Heparin (1000units:1ml) Volume (ml): 1.9 Venous Catheter Locking Solution: Heparin (1000units:1ml) Volume (ml): 2.0 Post-Treatment Procedures: Blood returned, Catheter capped, clamped and heparinized x 2 ports Machine Disinfection Process: Acid/Vinegar Clean, Heat Disinfect, Exterior Machine Disinfection Rinseback Volume (mL): 300 mL Total Liters Processed (L/min): 65.4 L/min Dialyzer Clearance: Lightly streaked Hemodialysis Intake (ml): 500 ml Hemodialysis Output (ml): 2400 ml NET Removed (ml): 1900 ml Tolerated Treatment: Good Charge: $ IP Hemodialysis Charge: Ultrafiltration Provider Notification Provider Notification Reason for Communication: Change in status (pt wakes, not oriented, unable to stay awake, not following commands) Provider Name: Norm Provider Role: Attending physician Method of Communication: Secure chat Response: At bedside Reason for Communication: Change in status (pt wakes, not oriented, unable to stay awake, not following commands) Provider Role: Attending physician Method of Communication: Secure chat Response: At bedside Handoff complete and report given to Primary RN at 1630 Primary RN (First Initial, Last Name, Title): Cathi Jensen Rn Education Person Educated: Patient Knowledge Base: Minimal Barriers to Learning?: None Preferred method of Learning: Oral Topic(s): Emergency, Access Care, Signs and Symptoms of Infection, Fluid Management, and Procedural Teaching Tools: Explanation Response to Education: Verbalized Understanding * Jf Davis, OT - 02/13/2024 1:52 PM EDT Images from the original note were not included. OCCUPATIONAL THERAPY [facility] Initial Evaluation Name/MRN: Jose John ([id number]) Evaluation Date: 02/13/2024 Date of : 1945 Admission Date: 02/12/2024 1:58 AM Age: 78 y.o. Room/Bed: [facility] Discharge Recommendation: IP Rehab, Continue to assess pending progress Assessment IMPRESSION: Pt admitted to [facility] for pleural effusions. Prior to admission, states he was at [facility]. Prior [facility], living with spouse in one story house and independent with all ADLs and functional mobility. Required SBA for all functional mobility and ADLs. The pt would benefit from continued therapy to promote endurance needed for all ADLs and functional mobility. May benefit from return to IP Rehab, but will continue to assess progress as pt may be able to go home with assist and home OT. Performance Deficits /Impairments: Decreased Functional Mobility, Decreased ADL status, Decreased Endurance, and Decreased Balance Prognosis: Good Decision Making: Low Complexity Subjective Pt seen supine in bed. RN cleared for therapy. Pleasant and agreeable. Left in chair at end of session with alarm on and all needs within reach. Pain: Pt denies any current pain. Past Medical History: History reviewed. No pertinent past medical history. Past Surgical History: History reviewed. No pertinent surgical history. Admission Diagnosis: Patient Active Problem List Diagnosis Date Noted Pleural effusion 02/12/2024 Shortness of breath 01/23/2024 Severe malnutrition ([facility]) ([facility]) 12/07/2023 S/P CABG (coronary artery bypass graft) 11/21/2023 NSTEMI (non-ST elevated myocardial infarction) ([facility]) 11/19/2023 CKD (chronic kidney disease) stage 4, GFR 15-29 ml/min ([facility]) 11/19/2023 Cardiomyopathy, ischemic 11/19/2023 Coronary artery disease 11/17/2023 Multi-vessel coronary artery stenosis 11/17/2023 Carotid artery bruit 11/17/2023 Carotid arterial disease ([facility]) 11/17/2023 Unstable angina ([facility]) ([facility]) 11/15/2023 Medical Precautions: No active isolations Proper PPE donned/doffed in accordance with facility standards. Fall Risk: Chavez Fall Risk Score: 35 (Medium Risk) Precautions/Restrictions: Lines/Drains/Airways: O2 Family/Caregiver Present: none Overall Cognitive Status: WFL Overall Orientation Status: Oriented x4 Social/Functional History Patient admitted from REHAB Pt's home situation prior to rehab is listed below. Lives With: Spouse Type of Home: single family home Home Layout: Single Level Home Home Access: Stairs to Enter with Rails (# of stairs: 2) Bathroom Shower/Tub: Tub/Shower Combo and Grab Bars, states he will be getting a shower chair soon Toilet: Standard Home Equipment: none Homemaking Responsibilities: Independent Receives Help From: Spouse Active Bill Recapitulation Clerk: Prior Level of Function ADL Assistance: Independent Ambulation Assistance: Independent Transfer Assistance: Independent Objective ADLs LE Dressing: SBA To don pants and socks Upper Extremity Assessment AROM: WFL PROM: Not assessed this session Strength: WFL Vision: Pt states he can only see peripherally from L eye since he was ~5 years old. Macular degeneration in R eye, however can see functionally at this time. Hearing: normal Bed Mobility Supine to sit: SBA Scooting: SBA Transfers/Functional Mobility Sit to stand: SBA Stand to sit: SBA Stand pivot: SBA Sitting balance: SBA Standing balance: SBA Functional mobility: SBA, Took ~5 steps with SBA Device(s) used: None Hand dominance: Ambidextrous AM-PAC AM-PAC Inpatient Daily Activity Raw Score: 21 ADL Inpatient [facility] G-Code Modifier: CJ Plan Pt would benefit from skilled acute OT services to address Strengthening, ROM, Balance Training, Functional Mobility Training, and Endurance Training. Frequency: 3x/week for 4 weeks Barriers: Decreased endurance Prognosis: good Safety/Education Safety Safety Devices in place: All fall risk precautions in place, call light within reach, left in chair, chair alarm in place, gait belt, patient at risk for falls, and nurse notified Restraints: No Education Education Given To: patient Education Provided: OT Role, Plan of Care, and Discharge Recommendations Education Method: Verbal Barriers to Learning: None Education Outcome: Verbalized Understanding Goals Patient Stated Goal: Get stronger again Encounter Problems Encounter Problems (Active) Balance Patient will maintain dynamic standing balance for 10 minutes with modified independence to promoteendurance needed for safe functional mobility Start: 02/13/24 Expected End: 03/12/24 Bathing Patient will utilize adaptive techniques to bathe body with independence Start: 02/13/24 Expected End: 03/12/24 Dressings Lower Extremities Patient will dress lower body with independence Start: 02/13/24 Expected End: 03/12/24 Grooming Patient will complete daily grooming tasks while standing at sink with independence Start: 02/13/24 Expected End: 03/12/24 Toileting Patient will complete toileting tasks at standard toilet with independence. Start: 02/13/24 Expected End: 03/12/24 Therapy Time Individual Co-treatment Time In 1110 Time Out 1120 Minutes 10 Jf Davis OT Patient's Occupational Therapy Plan of Care supervision is transferred to a [facility] Occupational Therapist. Goals and/or treatment plan was established in collaboration with patient/family/other representatives. * Chris Chong, PT - 02/13/2024 1:26 PM EDT Images from the original note were not included. PHYSICAL THERAPY [facility] Initial Evaluation Name/MRN: Jose John ([id number]) Evaluation Date: 02/13/2024 Date of : 1945 Admission Date: 02/12/2024 1:58 AM Age: 78 y.o. Room/Bed: [facility] Discharge Recommendation: Continue to assess pending progress (anticipate return to REHAB for continued endurance progression) Equipment Needed: (tbd) Assessment IMPRESSION: The pt is admitted with pleural effusion, and he will continue to benefit from therapy for his functional deficits and to improve his overall functional capacity. The pt would be able to tolerate 3 hours of therapy a day and return to REHAB is recommended at discharge. SBA assist wasrequired for mobility this date. Pt did not report any increased pain or significant SOB while performing mobility this session. If the pt does return home then he would benefit from assistance and home therapy for continued balance and endurance progression. Diagnosis: pleural effusion Prognosis: good Performance Deficits /Impairments: Decreased Endurance, Decreased Balance, and Decreased Posture Decision Making: Low Complexity Subjective Pt in bed and agreed to PT. Pt would like to get up to a chair. Pt has not worked in the last several months since his open heart procedure. Pain: Pt denies any current pain. Past Medical History: History reviewed. No pertinent past medical history. Past Surgical History: History reviewed. No pertinent surgical history. Admission Diagnosis: Patient Active Problem List Diagnosis Date Noted Pleural effusion 02/12/2024 Shortness of breath 01/23/2024 Severe malnutrition ([facility]) ([facility]) 12/07/2023 S/P CABG (coronary artery bypass graft) 11/21/2023 NSTEMI (non-ST elevated myocardial infarction) ([facility]) 11/19/2023 CKD (chronic kidney disease) stage 4, GFR 15-29 ml/min ([facility]) 11/19/2023 Cardiomyopathy, ischemic 11/19/2023 Coronary artery disease 11/17/2023 Multi-vessel coronary artery stenosis 11/17/2023 Carotid artery bruit 11/17/2023 Carotid arterial disease ([facility]) 11/17/2023 Unstable angina ([facility]) ([facility]) 11/15/2023 Medical Precautions: No active isolations Proper PPE donned/doffed in accordance with facility standards. Fall Risk: Chavez Fall Risk Score: 35 (Medium Risk) Precautions/Restrictions: Lines/Drains/Airways: O2 Bed alarm Family/Caregiver Present: none Overall Cognitive Status: WFL Overall Orientation Status: Oriented x4 Vision: macular degeneration, only peripheral vision in Lt eye, shots in Rt eye Hearing: normal Social/Functional History Patient admitted from REHAB Pt's home situation prior to rehab is listed below. Lives With: Spouse Type of Home: single family home Home Layout: Single Level Home Home Access: Stairs to Enter with Rails (# of stairs: 2) Bathroom Shower/Tub: Tub/Shower Combo and Grab Bars Toilet: Standard Home Equipment: none Homemaking Responsibilities: Independent Receives Help From: Spouse Active Bill Recapitulation Clerk: Prior Level of Function ADL Assistance: Needs Assist Ambulation Assistance: Needs Assistance Transfer Assistance: Needs Assist At REHAB Pt was independent with all self care and mobility prior to his open heart surgery. Objective Lower Extremity Assessment AROM: WFL Strength: WFL Bed Mobility: Supine to sit: SBA Scooting: SBA HOB elevated, use of rail Transfers Sit to stand: SBA Stand to sit: SBA Stand pivot: SBA Ambulation Ambulation 1 Assistive device(s) used: none Assist level: SBA Distance (ft): 5 ft forward and 5 ft backwards Quality of gait: step through pattern, decreased velocity, decreased step length, decreased reciprocal arm swing, no LOB. Tone: WFL Balance: Pt able to stand without UE support statically at EOB without a LOB. Posture: fair Sitting - Static: Independent Sitting - Dynamic: SBA Standing - Static: SBA Standing - Dynamic: SBA Outcome Measures AM-PAC How much HELP from another person do you currently need Turning from your back to your side while in a flat bed without using bedrails?: None Moving from lying on your back to sitting on the side of a flat bed without using bedrails?: None Moving to and from a bed to a chair (including a wheelchair)?: None Standing up from a chair using your arms (wheelchair or bedside chair)?: None Walking in a hospital room?: None Stair climbing assessed?: No AM-PAC Inpatient Mobility Raw Score (No Stairs) : 20 JH-HLM -M Score: Walked 10 steps or more (i.e. walked to restroom) Plan Pt would benefit from skilled acute PT services to address Strengthening, ROM, Balance Training, Functional Mobility Training, Endurance Training, Gait Training, Stair Training, and Safety Education and Training. Frequency: 2x/week for 2 weeks Barriers: Decreased endurance and Long standing deficits Safety/Education Safety Safety Devices in place: call light within reach, left in chair, chair alarm in place, and nurse notified Restraints: No Education Education Given To: patient Education Provided: PT Role, PT Goals, Gait Training, Plan of Care, and Transfer Training Education Method: Verbal Barriers to Learning: None Education Outcome: Verbalized Understanding and Continued Education Needed Goals Patient Stated Goal: to get stronger Encounter Problems Encounter Problems (Active) Mobility Patient will ambulate 150 feet with independence and least restrictive device in order to improve safety and independence with mobility. Start: 02/13/24 Expected End: 02/27/24 Patient will ascend and descend 2 stairs with least restrictive device and independence in order tosafely negotiate home. Start: 02/13/24 Expected End: 02/27/24 Pain - Adult Transfers Patient will perform bed mobility with independence in order to improve independence and prepare for out of bed mobility. Start: 02/13/24 Expected End: 02/27/24 Patient will complete functional transfer with least restrictive device with independence in order to prepare for ambulation. Start: 02/13/24 Expected End: 02/27/24 Therapy Time Individual Co-treatment Time In 1120 (one eval low complex) Time Out 1130 Minutes 10 Chris Chong PT Patient's Physical Therapy Plan of Care supervision is transferred to a [facility] Physical Therapist. Goals and/or treatment plan was established in collaboration with patient/family/other representatives. * Jf Davis OT - 02/13/2024 8:35 AM EDT Images from the original note were not included. OCCUPATIONAL THERAPY [facility] Name/MRN: Jose John ([id number]) Date: 02/13/2024 Orders received for OT evaluation and treat. Per chart, pt had RR called this AM due to medical instability. Will hold therapy today and continue to follow. Jf Davis OT * Chris Chong PT - 02/13/2024 8:26 AM EDT Images from the original note were not included. PHYSICAL THERAPY [facility] Name/MRN: Jose John ([id number]) Date: 02/13/2024 PT held this date secondary to medical instability. Rapid was called early this AM due respiratory issues. PT will re-attempt as able once medical stability improves. Chris Chong PT * Fatoumata Zheng MD - 02/13/2024 8:04 AM EDT Hospitalist Progress Note 02/13/2024 Subjective: Admit Date: 02/12/2024 PCP: OLENA GABRIEL Room#: [id number] Shavonne Smith is a 78 y.o. male with past medical history of CAD, DM, HTN and ESRD on HD who presented to ED for respiratory failure. Patient had been seen by rehab when staff noted there that he was hypoxic. Patient does not typically use any home O2. Placed him on 6 L nonrebreather and called EMS. EMS remove the nonrebreather and put him on 3 L nasal cannula and brought him to the ED. Here he is saturating 80% on 3 L but when increased to 6 L O2 sat normalized. Has shortness of breath but denies any chest pain, fever, chills, abdominal pain. He is ESRD on dialysis and receives this Sunday. Last session was yesterday. In ED transition to 8 L and saturating at 99 to 100%. He got ultrafiltration yesterday Interval History: Agitated last night Patient is currently lethargic Not stay awake to answer questions, did follow command to open eyes. On 9 liters O2 Adult diet Regular; Low Sodium (2 gm); 2000 ml 3 Day Weight Change: Unable to Calculate 24HR INTAKE/OUTPUT: Intake/Output Summary (Last 24 hours) at 02/13/2024 0804 Last data filed at 02/12/2024 2116 Gross per 24 hour Intake 500 ml Output 200 ml Net 300 ml Past Medical History: History reviewed. No pertinent past medical history. LABS: CBC: Recent Labs 02/12/24 0234 02/13/24 0001 WBC 7.2 -- RBC 3.15* -- HGB 9.3* 9.3 HCT 29.8* -- MCV 94.6 -- RDW 16.8* -- PLT 184 -- BMP: Recent Labs 02/12/24 0234 02/13/24 0023 NA 135 135 K 4.1 4.1 CL 99 103 CO2 28 25 BUN 30* 38* CREATININE 3.89* 4.45* GLUCOSE 156* 188* CALCIUM 8.6 8.1* ANIONGAP 8 7 LIVER PROFILE: Recent Labs 02/12/24 0234 AST 31 ALT 32 BILITOT 0.5 ALKPHOS 84 PROT 6.4 PT/INR: No results for input(s): PROTIME, INR in the last 72 hours. CARDIAC ENZYMES: Recent Labs 02/12/24 0234 02/12/24 0638 02/12/24 0858 TROPONINI 0.020 0.024 0.023 Procalcitonin: No results found for: PROCAL COVID-19 PCR: No results for input(s): COVID19 in the last 72 hours. Encounter Date: 02/12/24 ECG 12 lead (Now) Result Value Heart Rate 75 QRSD Interval 177 QT Interval 498 QTC Interval 555 P Olean 35 QRS Olean 140 T Wave Olean 47 OR Interval 142 Impression Sinus rhythm Right bundle branch block Electronically Signed On 02-12-2024 13:08:36 EDT by [facility] Transthoracic echocardiogram (TTE) complete with contrast, bubble, strain, and 3D PRN Result Date: 11/16/2023 Left Ventricle: Left ventricle size is normal. Mildly increased wall thickness. Low normal left ventricular systolic function. EF by 2D Simpsons Biplane is 49%. Normal wall motion. Right Ventricle: Not well visualized. Right ventricle size is normal. Normal systolic function. TAPSE is 2.1 cm. Tricuspid Valve: Moderately elevated RVSP. RVSP is 50 mmHg. Aorta: Not well visualized. Normal sized sinuses of Valsalva and ascending aorta. Sinuses of Valsalva diameter is 3.2 cm. IVC/SVC: IVC diameter is dilated and decreases less than 50% during inspiration; therefore the estimated right atrial pressure is elevated (~15 mmHg). No significant valvular abnormalities. Technically difficult study. @IMAGES@ Objective: Vitals: BP 150/63 (BP Location: Left arm, Patient Position: Lying) Pulse 68 Temp 36.6 C (97.9 F) (Temporal) Resp 16 Ht 5' 10 (1.778 m) Wt 135 lb 3.2 oz (61.3 kg) SpO2 100% BMI 19.40 kg/m Pulse Ox: SpO2 Av.6 % Min: 92 % Max: 100 % Supplemental O2: O2 Flow Rate (L/min): 9 L/min General appearance: No apparent distress, lethargic HEENT: Eyes: No scleral icterus Oral: Tongue is semi-moist Cardiovascular: S1/S2 heard, RRR Respiratory: diminished bs at bases with poor effort Abdomen: Soft, non-tender, non-distended bowel sounds positive Musculoskeletal: No obvious deformities seen Medications: Current Facility-Administered Medications: acetaminophen (Tylenol) tablet 650 mg, 650 mg, Oral, q6h PRN OR acetaminophen (Tylenol) suppository 650 mg, 650 mg, Rectal, q6h PRN, Bhupendrasia Jaziel Allen MD amiodarone (Pacerone) tablet 200 mg, 200 mg, Oral, Daily, Maylin Allen MD, 200 mg at 02/12/24 1026 aspirin chewable tablet 81 mg, 81 mg, Oral, Daily, Maylin Allen MD, 81 mg at 026 atorvastatin (Lipitor) tablet 80 mg, 80 mg, Oral, Daily, Maylin Allen MD, 80 mg at 02/12/24 1026 carvedilol (Coreg) tablet 3.125 mg, 3.125 mg, Oral, BID WC, Maylin Allen MD, 3.125 mgat 02/12/24 1654 gabapentin (Neurontin) capsule 100 mg, 100 mg, Oral, BID, Maylin Allen MD, 100 mg at 02/12/242010 heparin injection 1,900 Units, 1,900 Units, IntraCATHeter, PRN, Matt Quinn MD, 1,900 Units at 02/12/24 160 heparin injection 2,000 Units, 2,000 Units, IntraCATHeter, PRN, Matt Quinn MD, 2,000 Units at 02/12/24 1605 heparin injection 5,000 Units, 5,000 Units, SubCUTAneous, 3 times per day, Maylin Allen MD, 5,000 Units at 02/13/24 0558 ipratropium-albuterol (Duo-Neb) 0.5-2.5 mg/3 mL nebulizer solution 3 mL, 3 mL, Nebulization, q6h PRN, Maylin Allen MD melatonin tablet 3 mg, 3 mg, Oral, Nightly PRN, Maylin Allen MD, 3 mg at 02/12/242010 mirtazapine (Remeron) tablet 15 mg, 15 mg, Oral, Nightly, Maylin Allen MD, 15 mg at 02/12/242010 pantoprazole (ProtoNix) EC tablet 40 mg, 40 mg, Oral, qAM AC, Maylin Allen MD, 40 mg at 02/13/24 0558 polyethylene glycol (PEG) 3350 (Miralax) packet 17 g, 17 g, Oral, Daily PRN, Maylin Allen MD QUEtiapine (SEROquel) tablet 12.5 mg, 12.5 mg, Oral, q8h PRN, Maylin Allen MD sevelamer carbonate (Renvela) tablet 800 mg, 800 mg, Oral, TID WC, Maylin Allen MD, 800 mg at 02/12/24 1654 tiotropium (Spiriva Respimat) 2.5 MCG/ACT inhaler 2 puff, 2 puff, Inhalation, Daily, Maylin Patel MD, 2 puff at 02/12/24 1026 Assessment Acute respiratory failure ESRD HD Pleural effusion DM CAD Hx CABG Hypotension -on HF O2 -ABG stat reviewed -consulted and discussed with ICU, appreciate evaluation -HD per nephrology -may need thoracentesis, unclear CXR, will repeat after HD -duoneb -wound care for open wound in CABG site -parameter for soft BP -repeat ABG reviewed, informed ICU team History reviewed. No pertinent past medical history. Plan -am labs, replace lytes prn -increase activity -DVT prophylaxis: [] Lovenox [x] Heparin [] SCDs [x] Encourage ambulation [] Already on Anticoagulation Advance Directive: Full Code Family discussion: Anticipated Discharge - Date - 02/14? - Location - Home - Pending the following - clinical improvement Total time spent (which include face to face and non face to face encounters) : 56 minutes Fatoumata Zheng MD Division of Hospitalist Medicine Inpatient Medical Services/[facility] [place] * Becki Dang MD - 02/13/2024 12:25 AM EDT ACUTE OVERNIGHT ISSUE Subjective: I was paged by RN around 11pm regarding AMS and lethargy more than usual. Brief summary of pt acuteissue is pt was admitted 24 hours ago now from rehab for acute hypoxia and increased oxygen req. Has recently been up to 8LNC after dropping to 80% during his worst episodes. Was admitted for pleuraleffusions that has recurred with plans for tap in AM. Objective: Visit Vitals BP 150/69 Pulse 71 Temp 36.7 C (98 F) (Temporal) Resp 19 Lab Results Component Value Date GLUCOSE 156 (H) 02/12/2024 CALCIUM 8.6 02/12/2024 NA 135 02/12/2024 K 4.1 02/12/2024 CO2 28 02/12/2024 CL 99 02/12/2024 BUN 30 (H) 02/12/2024 CREATININE 3.89 (H) 02/12/2024 Lab Results Component Value Date WBC 7.2 02/12/2024 HGB 9.3 02/13/2024 HCT 29.8 (L) 02/12/2024 MCV 94.6 02/12/2024 PLT 184 02/12/2024 Lab Results Component Value Date CKTOTAL 331 (H) 12/02/2023 TROPONINI 0.023 02/12/2024 Imaging/EKG n/a Assessment/Plan: Lethargic, acute change, improved - rapid called and was at bedside assessing pt. - BG and VS stable - CXR with effusion - awaiting ABG and labs from rapid to result but suspect hypoxia induced AMS - pt to cont to be monitored as closely as staffing permits - day team will also cont with tap of effusion given recent numerous thoras TE ABG resulted, pt with hypoxia down to the 50s. Cont ensuring pt wearing his oxygen. Can increase toNRB if needed if pt cont to pull off. If worsening, may consider ICU consult for thora urgently. * Shawn Hernandez MD - 02/12/2024 9:32 AM EDT Hospitalist Progress Note - [facility] - [employer] ([facility] [place]) 02/12/2024 6:29 PM [phone]: Please page me for patient care issues. [phone]: Please page [facility] Hospitalist - [facility] [place] for any issues. Subjective and Objective: Admit Date: 02/12/2024 PCP: OLENA GABRIEL No chief complaint on file. Hospital course: Jose is a 78 y.o. male with past medical history of CAD, DM, HTN and ESRD on HD who presented to ED for AHRF 2/2 volume overload. Patient had been seen by rehab when staff noted there that he was hypoxic. Patient does not typically use any home O2. Placed on NRB by EMS, transitioned to DC on arrival to hospital. CXR with pleural effusions, pulmonary vascular congestion. Nephrology consulted for HD. Symptoms improved with fluid removal. Discharge pending transition to independence from supplemental oxygen. Adult diet Regular; Low Sodium (2 gm); 2000 ml Dietary Orders (From admission, onward) Start Ordered 02/12/241828 Adult diet Regular; Low Sodium (2 gm); 2000 ml Diet effective now Question Answer Comment Diet type Regular Sodium restriction: Low Sodium (2 gm) Dietary fluid restriction / 24h: 2000 ml 02/12/241827 No intake/output data recorded. @[email or web address]@ @[email or web address]@ Medications: amiodarone, 200 mg, Oral, Daily aspirin, 81 mg, Oral, Daily atorvastatin, 80 mg, Oral, Daily carvedilol, 3.125 mg, Oral, BID WC gabapentin, 100 mg, Oral, BID heparin, 5,000 Units, SubCUTAneous, 3 times per day mirtazapine, 15 mg, Oral, Nightly [START ON 02/13/2024] pantoprazole, 40 mg, Oral, qAM AC sevelamer carbonate, 800 mg, Oral, TID WC tiotropium, 2 puff, Inhalation, Daily Recent Labs 02/10/24 0500 02/12/24 0234 WBC 7.8 7.2 HGB 8.7* 9.3* PLT 194 184 Recent Labs 02/10/24 0500 02/12/24 0234 NA 134* 135 K 4.9 4.1 CL 100 99 CO2 23 28 BUN 36* 30* CREATININE 4.37* 3.89* GLUCOSE 133* 156* Recent Labs 02/12/24 0234 AST 31 ALT 32 BILITOT 0.5 ALKPHOS 84 No results found for: TRIG, HDL, LDLCALC, CHOL No results found for: PHART, PO2ART, [id number] No results for input(s): INR in the last 72 hours. Recent Labs 02/12/24 0234 02/12/24 0638 02/12/24 0858 TROPONINI 0.020 0.024 0.023 No results for input(s): DDIMER in the last 72 hours. No results found for: HGBA1C No results found for: TSH Urine Culture: No results found for this or any previous visit. Objective: Vitals: BP (!) 121/98 (BP Location: Right arm, Patient Position: Sitting) Pulse 67 Temp 36.7 C (98.1 F) Resp 17 Ht 5' 10 (1.778 m) Wt 138 lb (62.6 kg) SpO2 96% BMI 19.80 kg/m Pulse Ox: SpO2 Av.8 % Min: 80 % Max: 100 % Supplemental O2: Past 24 hours events: NAEON Ultrafiltration with 3L removed 02/12/24 CHRONIC ANATOMY/TUBES/LINES: N/A Running Summary, Assessment, and Plan Acute, acute on chronic, unstable/uncontrolled chronic problems/diagnoses: AHRF 2/2 aeHFrEF (est EF 35% on echo 11/2023, poor quality) Stable chronic problems affecting care, new non-acute diagnoses: # ESRD MWF # DM 2 # CAD s/p cabg # Anemia As a result of the above findings & factors, the following mgmt was pursued: - Fluid removal with dialysis, goal (dry weight)125-131 lbs, strict I/O's -2g sodium/2L fluid restricted diet -Wean to RA as tolerated -Initiate GDMT as tolerated inpatient: asymptomatic hypotension after dialysis, will hold off ARB for now. Follow up outpatient cardiology. Reassess daily. -nephrology consulted, appreciated recs - am labs, replace lytes prn - PT/OT/CM/SW as appropriate - delirium precautions: limit night-time awakening - DVT prophylaxis: sqh q8h Complexity: Acute illness or injury posing a threat to life or body function (HIGH). Risk: Admission to hospital-level care was considered or occurred (HIGH). 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 No Shawn Hernandez MD Division of Hospitalist Medicine Inpatient [facility] Services/[place] documented in this [facility]07-24-2024 Hospital course Narrative* Miguelangel Jessica, DO - 02/27/2024 3:48 PM EDT Hospitalist Discharge Summary Jose John : 1945 Admit date: 02/12/2024 Discharge date: 02/27/2024 Admitting Physician: Maylin Allen MD Primary Care Physician: OLENA GABRIEL Visit Status: inpt Code Status: Full Code BRIEF HOSPITAL COURSE: Jose John is a 78 y.o. male with history of HTN, CAD s/p CABG, atrial fibrillation, T2DM, ESRD on HD who [facility] for acute hypoxic respiratory failure. Staff at rehab noted that he was hypoxic. He was placed on non-rebreather mask by EMS, and then transitioned to DC on arrival to hospital. CXR with pleural effusions, pulmonary vascular congestion. Nephrology consulted. Symptoms improved with fluid removal. Admitted for further evaluation and management. Obtained US-guided Left thoracentesis (02/15). S/p US- guided right thoracentesis (02/18) with drainage of 500 mL of clear yellow fluid. Now ZOFIA depended HD. O2 eval. DC to [place]. Acute, acute on chronic, unstable/uncontrolled chronic problems/diagnoses # Acute hypoxic respiratory failure likely 2/2 volume overload # ZOFIA HD dependent - 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 Also continue fluid removal with dialysis. # Hypotension - improved # Dehiscence of distal MSI - CT Surgery evaluated # Severe malnutrition Stable chronic problems affecting care, new non-acute diagnoses # HTN # CAD s/p CABG - ASA, statin # Chronic HFrEF # Hx of atrial fibrillation - on amiodarone, coreg 3.125 mg BID # T2DM with hyperglycemia - A1c 6.4% (11/15/23). SSI, BG checks, hypoglycemia protocol History reviewed. No pertinent past medical history. Hospital Course: See discharge diagnoses list above and medication adjustments below in med rec.Thepatient is discharged in improved and stable condition. Consults: IP CONSULT TO NEPHROLOGY INPATIENT CONSULT TO CRITICAL CARE - MEDICAL TEAM IP WOUND CARE NURSE CONSULT TO EVAL IP CONSULT TO CARDIOTHORACIC SURGERY IP CONSULT TO HOME CARE NEEDS Discharge Instructions: Diet: Dietary Orders (From admission, onward) Start Ordered 02/18/24 1532 Supplement:Breakfast, Lunch, Dinner; Vanilla Ensure Plus Until discontinued Question Answer Comment Frequency Breakfast Frequency Lunch Frequency Dinner Select supplement: Vanilla Ensure Plus 02/18/24 1531 02/12/24 1829 Adult diet Regular; Low Sodium (2 gm); 2000 ml Diet effective now Question Answer Comment Diet type Regular Sodium restriction: Low Sodium (2 gm) Dietary fluid restriction / 24h: 2000 ml 02/12/24 1828 Activity: as tolerated Recommended Outpatient Tests: Disposition: Patient discharged in stable condition to CO Greater than 31 minutes spent dischargingthe patient and coming up with patient discharge plan. Vitals: BP 148/75 (BP Location: Right arm, Patient Position: Lying) Pulse 72 Temp 36.9 C (98.5F) (Temporal) Resp 16 Ht 5' 10 (1.778 m) Wt 133 lb 6.1 oz (60.5 kg) SpO2 95% BMI 19.14 kg/m Pulse Ox: SpO2 Av % Min: 94 % Max: 99 % Supplemental O2: O2 Flow Rate (L/min): 2 L/min Physical exam: General appearance: No apparent distress, appears stated age, HEENT: Eyes: No scleral icterus Oral: Tongue is semi-moist Cardiovascular: S1/S2 heard, RRR Respiratory: Clear to auscultation bilaterally Abdomen: Soft, non-tender, non-distended bowel sounds positive Musculoskeletal: No obvious deformities seen Skin: No visible rashes or lesions. LABS: Recent Labs 02/25/248 02/26/24 0607 02/27/24 0824 NA 134* 134* 136 K 4.5 4.6 4.6 CL 103 105 102 CO2 BUN 40* 29* 40* CREATININE 5.02* 3.73* 4.91* GLUCOSE 146* 99 172* CALCIUM 8.6 8.5 8.8 Recent Labs 02/25/248 02/26/24 0607 02/27/24 0824 WBC 7.4 6.7 6.9 RBC 3.09* 3.06* 2.99* HGB 8.9* 9.0* 8.5* HCT 29.2* 28.7* 28.5* MCV 94.5 93.8 95.3 MCH 28.8 29.4 28.4 MCHC 30.5 31.4 29.8* RDW 16.2* 16.3* 16.2* PLT 244 249 265 MPV 9.7 10.0 9.8 Discharge Medications: Medication List START taking these medications Insulin Lispro 100 UNIT/ML solution injection Commonly known as: Humalog Inject 0-6 Units under the skin 3 times daily (with meals) AND 0-6 Units Nightly. insulin pen needle 29G x 12.7mm misc Use to inject 1-4 times daily as directed. Lidocaine 4 % patch Place 1 patch on the skin daily. Start taking on: February 28, 2024 LORazepam 0.5 MG tablet Commonly known as: Ativan Take 1 tablet (0.5 mg) by mouth Nightly for 10 days. CHANGE how you take these medications ipratropium-albuterol 0.5-2.5 mg/3 mL nebulizer solution Commonly known as: Duo-Neb Take 3 mL by nebulization 3 times daily as needed for wheezing or shortness of breath. What changed: when to take this CONTINUE taking these medications acetaminophen 325 MG tablet Commonly known as: Tylenol Take 2 tablets (650 mg) by mouth every 6 hours as needed for mild pain (1-3). amiodarone 200 MG tablet Commonly known as: Pacerone Take 1 tablet (200 mg) by mouth daily. aspirin 81 MG chewable tablet Chew 1 tablet (81 mg) daily. atorvastatin 80 MG tablet Commonly known as: Lipitor Take 1 tablet (80 mg) by mouth daily. carvedilol 3.125 MG tablet Commonly known as: Coreg Take 1 tablet (3.125 mg) by mouth in the morning and 1 tablet (3.125 mg) in the evening. Take with meals. gabapentin 100 MG capsule Commonly known as: Neurontin Take 1 capsule (100 mg) by mouth 2 times daily. glucose 40 % gel oral gel Commonly known as: Glutose Take 15 g by mouth as needed for low blood sugar. Hypoglycemia insulin glargine 100 UNIT/ML injection Commonly known as: Lantus Inject 7 Units under the skin Nightly. Melatonin 3 MG capsule Take 6 mg by mouth Nightly. mirtazapine 15 MG tablet Commonly known as: Remeron Take 1 tablet (15 mg) by mouth Nightly. pantoprazole 40 MG EC tablet Commonly known as: ProtoNix Take 1 tablet (40 mg) by mouth every morning (before breakfast). Do not crush, chew, or split. polyethylene glycol (PEG) 3350 17 g packet Commonly known as: Miralax Take 17 g by mouth daily. sevelamer carbonate 800 MG tablet Commonly known as: Renvela Take 1 tablet (800 mg) by mouth in the morning and 1 tablet (800 mg) at noon and 1 tablet (800 mg) in the evening. Take with meals. Swallow tablet whole; do not crush, break, or chew.. tiotropium 2.5 MCG/ACT inhaler Commonly known as: Spiriva Respimat Inhale 2 puffs daily. STOP taking these medications midodrine 2.5 MG tablet Commonly known as: Proamatine QUEtiapine 25 MG tablet Commonly known as: SEROquel Where to Get Your Medications These medications were sent to [id number] - [place], [place] - [address] [place] [id number] atorvastatin 80 MG tablet mirtazapine 15 MG tablet pantoprazole 40 MG EC tablet polyethylene glycol (PEG) 3350 17 g packet sevelamer carbonate 800 MG tablet You can get these medications from any pharmacy Bring a paper prescription for each of these medications acetaminophen 325 MG tablet amiodarone 200 MG tablet aspirin 81 MG chewable tablet carvedilol 3.125 MG tablet gabapentin 100 MG capsule glucose 40 % gel oral gel insulin glargine 100 UNIT/ML injection Insulin Lispro 100 UNIT/ML solution injection insulin pen needle 29G x 12.7mm misc ipratropium-albuterol 0.5-2.5 mg/3 mL nebulizer solution Lidocaine 4 % patch LORazepam 0.5 MG tablet Melatonin 3 MG capsule tiotropium 2.5 MCG/ACT inhaler Recommended Follow-up: No follow-up provider specified. Complexity of Follow up: [] Moderate Complexity: follow up within 7-14 calendar days (88449) [x] Severe Complexity: follow up within 7 calendar days (13141) Follow up Testing, Pending results or Referrals at Transitional Care Visit: [x] yes [] no Instructions to MA: Please call patient on day after discharge (must document patient contacted within 2 business days of discharge). Follow up questions for MA: 1. Did you get medications filled and taking them as instructed from discharge? 2. Are you following your discharge instructions from your hospital stay? 3. Please confirm patient is scheduled for a follow up appointment within the above time frame. Signed: Miguelangel Lopez DO Division of Hospitalist Medicine [facility] 02/27/2024, 3:50 PM documented in this [facility]07-24-2024 Nurse Note* Chichi Meza - 02/27/2024 8:42 AM EDT Patient Name: Jose John Patient : 1945 Acct: [id number] Date of Admission: 02/12/2024 Room/Bed: [facility] Code Status: Full Code Allergies: Allergies Allergen Reactions Lisinopril Wheezing Penicillins Anaphylaxis Sulfa Antibiotics Anaphylaxis Levofloxacin Nausea Only Diagnosis: Patient Active Problem List Diagnosis Unstable angina (CMS/HCC) ([facility]) Coronary artery disease Multi-vessel coronary artery stenosis Carotid artery bruit Carotid arterial disease ([facility]) NSTEMI (non-ST elevated myocardial infarction) ([facility]) CKD (chronic kidney disease) stage 4, GFR 15-29 ml/min ([facility]) Cardiomyopathy, ischemic S/P CABG (coronary artery bypass graft) Severe malnutrition (CMS/HCC) ([facility]) Shortness of breath Pleural effusion Treatment: Hemodilaysis 2:1 Priority: Routine Location: Acute Room Diabetic: Yes NPO: No Isolation Precautions: Dialysis Consent for Treatment Verified: Yes Blood Consent Verified: Not Applicable ICEBOAT: Identify, Consent, Equipment, HepB Status, Orders Complete, Access Verified, Timeliness (o2 and wall suction bedside) Second Clinician Verifying: Victoriano Christy Time out performed prior to access at 0823. Report Received from Primary RN at 0730. Primary RN (First Initial, Last Name, Title): Ileana Seaman RN Incapacitated Nurse Education Completed: Chavez Christy RN HBsAg ONLY: Date Drawn: February 05, 2024 Results: Negative HBsAb: Date Drawn: February 05, 2024 Results: Unknown Order Dialyzer: Revaclear 300 Na+ Modeling: Not Applicable Dialysate Temperature (C): 36 Blood Flow Rate (BFR): 400 Dialysate Flow Rate (DFR): 600 Access to be Utilized Access: Tunneled Catheter Location: Internal Jugular Side: Left Needle gauge: Not Applicable + Bruit/Thrill: Not Applicable First Use X-ray Verified: Yes OK to use line order: Yes Site Assessment: Signs and Symptoms of Infection/Inflammation: None If yes: Not Applicable Dressing: Dry and Intact Site Prep: Medical Aseptic Technique Dressing Changed this Treatment: No If yes, by whom: NA - not changed today Date of Last Dressing Change: February 25, [address]?: Yes Red Alcohol Caps in place?: Yes Gauze Dressing?: No Non-Dialysis Use?: No Comment: Flows: Good If access problem, who was notified: Pre and Post-Assessment Patient Vitals for the past 8 hrs: Level of Consciousness Oriented X Heart Rhythm Respiratory Pattern O2 Device Bilateral Breath Sounds Skin Color Skin Condition/Temp Abdomen Inspection Bowel Sounds (All Quadrants) Edema RLE Edema LLEEdema 02/27/24 0732 -- -- -- -- -- Diminished Pale Warm;Dry Soft Active Left lower extremity;Right lower extremity Non-pitting Non-pitting 02/27/24 0824 Alert (0) 3 Regular Other (Comment) Nasal cannula Diminished Pale Warm;Dry;No swelling Soft Active -- -- -- 02/27/24 1129 Alert (0) 3 Regular -- Nasal cannula Diminished Pale Warm;Dry;No swelling Soft Active-- -- -- Labs Lab Results Component Value Date/Time WBC 6.9 02/27/2024 0824 HGB 8.5 (L) 02/27/2024 0824 HGB 9.1 02/13/2024 1020 HCT 28.5 (L) 02/27/2024 0824 PLT 265 02/27/2024 0824 NA 136 02/27/2024 0824 K 4.6 02/27/2024 0824 CL 102 02/27/2024 0824 CO2 24 02/27/2024 0824 BUN 40 (H) 02/27/2024 08 CREATININE 4.91 (H) 02/27/2024 0824 CALCIUM 8.8 02/27/2024 08 PHOS 4.0 02/06/2024 06 IV Drips and Rate/Dose Safety - Before each treatment: Dialysis Machine No.: [id number] RO Machine Number: [id number] Dialyzer Lot No.: [id number] Tubing Lot Number: [id number] [employer] Secure: Yes Venous Parameters Set: Yes Arterial Parameters Set: Yes NS Bag: Yes Saline Line Double Clamped: Yes Dialyzer: Revaclear 300 Prime Volume (mL): 200 mL RO Machine Number: [id number] RO Machine Log Sheet Completed: Yes Machine Alarm Self Test: Passed, Completed (719) (02/27/24740) Air Foam Detector: Tested, Proper Function, pH Reading Extracorporeal Circuit Tested for Integrity: Yes Machine Conductivity: 13.9 Manual Conductivity: 13.8 Manual Ph: 7 Bleach Test (Neg): Yes Bath Temperature: 36 C (96.8 F) Conductivity Meter Serial #: [id number] Machine Functioning Alarm Free? Yes Dialysis Bath: K+ (Potassium): 2 Ca+ (Calcium): 2.5 Na+ (Sodium): 137 HCO3 (Bicarb): 32 Chlorine Testing - Before each treatment and every 4 hours: Time On: 827 Time Off: 1127 Treatment Goal: 3L Weight Height: 177.8 cm (5' 10) (02/16/24922) Weight: 60.5 kg (133 lb 6.1 oz) (02/26/2420) BMI (Calculated): 19.14 (02/26/2420) 1st check: less than 0.1 ppm at: 0545 2nd check: less than 0.1 ppm at: 0845 3rd check: Not Applicable (if greater than 0.1 ppm, then check every 30 minutes from secondary) Access Flows and Pressures Patient Vitals for the past 8 hrs: Blood Flow Rate (mL/min) Ultrafiltration Rate (ml/hr) Arterial Pressure (mmHg) Venous Pressure (mmHg) TMP DFR Access Visible Intra-Hemodialysis Comments 02/27/24 0828 200 mL/min 490 ml/hr -30 mmHg 30 mmHg 60 600 Yes Tx initated call light within reach 02/27/24 0830 400 mL/min 490 ml/hr -130 mmHg 130 mmHg 60 600 Yes Bfr increased 02/27/24 0845 400 mL/min 490 ml/hr -170 mmHg 150 mmHg 50 600 Yes pt resting, eyes closed and lines secured. uf removed is 144 02/27/24 0900 400 mL/min 500 ml/hr -200 mmHg 160 mmHg 50 600 Yes pt resting, uf removed is 354 02/27/24 0915 400 mL/min 500 ml/hr -200 mmHg 160 mmHg 50 600 Yes bicarb jug changed out. conductivity is 13.8 ph 7. pt stable. uf removed is 408 02/27/24 0930 400 mL/min 500 ml/hr -210 mmHg 160 mmHg 60 600 Yes pt resting, uf removed is 514 02/27/24 0946 400 mL/min 500 ml/hr -200 mmHg 160 mmHg 50 600 Yes Pt resting rmv 646 02/27/24 1000 400 mL/min 500 ml/hr -190 mmHg 170 mmHg 50 600 Yes Lines secure rmv 768 02/27/24 1015 400 mL/min 500 ml/hr -190 mmHg 170 mmHg 50 600 Yes Pt resting rmv 898 02/27/24 1030 400 mL/min 500 ml/hr -190 mmHg 170 mmHg 50 600 Yes pt stable, uf removed is 1026 02/27/24 1045 400 mL/min 500 ml/hr -180 mmHg 170 mmHg 50 600 Yes Pt awake alert rmv 1167 02/27/24 1100 400 mL/min 500 ml/hr -180 mmHg 170 mmHg 50 600 Yes pt watching tv, uf removed is 1282 02/27/24 1115 400 mL/min 500 ml/hr -200 mmHg 170 mmHg 50 600 Yes Lines secure rmv 1384 02/27/24 1128 -- -- -- -- -- -- -- tx complete. total uf removed is 1500 Vital Signs Patient Vitals for the past 24 hrs: BP Temp Temp src Pulse Resp SpO2 02/27/24 1145 148/75 36.9 C (98.5 F) Temporal 72 16 95 % 02/27/24 1129 151/77 -- -- 71 -- -- 02/27/24 1128 137/74 36.7 C (98 F) -- 70 16 94 % 02/27/24 1115 158/76 -- -- 70 -- -- 02/27/24 1100 (!) 161/75 -- -- 70 -- -- 02/27/24 1045 160/79 -- -- 70 -- -- 02/27/24 1030 157/77 -- -- 71 -- -- 02/27/24 1015 (!) 163/82 -- -- 71 -- -- 02/27/24 1000 159/80 -- -- 73 -- -- 02/27/24 0946 (!) 175/88 -- -- 72 -- -- 02/27/24 0930 (!) 163/74 -- -- 73 -- -- 02/27/24 0915 (!) 172/81 -- -- 72 -- -- 02/27/24 0900 (!) 176/89 -- -- 73 -- -- 02/27/24 0845 (!) 184/93 -- -- 74 -- -- 02/27/24 0830 (!) 186/87 -- -- 78 -- -- 02/27/24 0828 (!) 177/84 -- -- 76 -- -- 02/27/24 0824 (!) 186/84 36.9 C (98.4 F) -- 76 16 94 % 02/27/24 0813 149/85 37.2 C (98.9 F) Temporal 77 16 96 % 02/26/24 2306 134/65 36.6 C (97.9 F) Temporal 69 18 99 % 02/26/24 1936 (!) 126/48 37 C (98.6 F) Temporal 63 18 97 % 02/26/24 1554 157/65 36.2 C (97.2 F) Temporal 63 16 97 % Post-Dialysis Arterial Catheter Locking Solution: Heparin (1000units:1ml) Volume (ml): 1.9 Venous Catheter Locking Solution: Heparin (1000units:1ml) Volume (ml): 2.0 Post-Treatment Procedures: Blood returned, Catheter capped, clamped and heparinized x 2 ports Machine Disinfection Process: Exterior Machine Disinfection Rinseback Volume (mL): 300 mL Total Liters Processed (L/min): 66.6 L/min Dialyzer Clearance: Lightly streaked Hemodialysis Intake (ml): 500 ml Hemodialysis Output (ml): 1500 ml NET Removed (ml): 1000 ml Tolerated Treatment: Good Patient Response to Treatment: stable Physician Notified: No Patient Disposition: Return to room Charge: $ IP Hemodialysis Charge: Hemodialysis Provider Notification Provider Notification Reason for Communication: Other (Comment) Provider Name: Dr nelson Provider Role: Resident Method of Communication: Secure chat Response: No new orders Notification Time: 2335 Shift Event: Fall with minor injury Reason for Communication: Other (Comment) Provider Role: Resident Method of Communication: Secure chat Response: No new orders Notification Time: 5 Handoff complete and report given to Primary RN at 1130. Primary RN (First Initial, Last Name, Title): Ileana Seaman RN Education Person Educated: Patient Knowledge Base: Substantial Barriers to Learning?: None Preferred method of Learning: Oral Topic(s): call light education, Access Care, Signs and Symptoms of Infection, and Fluid Management Teaching Tools: Explanation Response to Education: Verbalized Understanding * Sonya Rocha RN - 02/25/2024 8:52 PM EDT Patient very emotional this evening patient upset about many things today. Visible upset crying talked with patient patient feels everything is going wrong just wants to get out of hospital and be with his . Emotional support given dinner tray warmed meds given per order will monitor * Candido Lawson - 02/25/2024 8:39 AM EDT Patient Name: Jose John Patient : 1945 Acct: [id number] Date of Admission: 02/12/2024 Room[facility]Bed: [facility] Code Status: Full Code Allergies: Allergies Allergen Reactions Lisinopril Wheezing Penicillins Anaphylaxis Sulfa Antibiotics Anaphylaxis Levofloxacin Nausea Only Diagnosis: Patient Active Problem List Diagnosis Unstable angina ([facility]) ([facility]) Coronary artery disease Multi-vessel coronary artery stenosis Carotid artery bruit Carotid arterial disease ([facility]) NSTEMI (non-ST elevated myocardial infarction) ([facility]) CKD (chronic kidney disease) stage 4, GFR 15-29 ml/min ([facility]) Cardiomyopathy, ischemic S/P CABG (coronary artery bypass graft) Severe malnutrition ([facility]) ([facility]) Shortness of breath Pleural effusion Treatment: Hemodilaysis 2:1 Priority: Routine Location: Acute Room Diabetic: Yes NPO: No Isolation Precautions: Dialysis Consent for Treatment Verified: Yes Blood Consent Verified: Not Applicable ICEBOAT: Identify, Consent, Equipment, HepB Status, Orders Complete, Access Verified, Timeliness (o2 and wall suction bedside) Second Clinician Verifying: Victoriano Christy Time out performed prior to access at 0826. Report Received from Primary RN at 0740. Primary RN (First Initial, Last Name, Title): Shreyas BRAR RN Incapacitated Nurse Education Completed: shaheen christy rn HBsAg ONLY: Date Drawn: February 05, 2024 Results: Negative HBsAb: Date Drawn: February 05, 2024 Results: Susceptible <10 Order Dialyzer: Revaclear 300 Na+ Modeling: Not Applicable Dialysate Temperature (C): 36 Blood Flow Rate (BFR): 400 Dialysate Flow Rate (DFR): 600 Access to be Utilized Access: Tunneled Catheter Location: Internal Jugular Side: Left Needle gauge: Not Applicable + Bruit/Thrill: Not Applicable First Use X-ray Verified: Not Applicable OK to use line order: Yes Site Assessment: Signs and Symptoms of Infection/Inflammation: None If yes: Not Applicable Dressing: Dry and Intact Site Prep: Medical Aseptic Technique Dressing Changed this Treatment: Yes If yes, by whom: Linda MILLS Date of Last Dressing Change: February 16, [address]?: Yes Red Alcohol Caps in place?: Yes Gauze Dressing?: No Non-Dialysis Use?: No Comment: Flows: Lines Reversed, Good, and Patent If access problem, who was notified: Pre and Post-Assessment Patient Vitals for the past 8 hrs: Level of Consciousness Oriented X Heart Rhythm Respiratory Pattern O2 Device Bilateral Breath Sounds Skin Color Skin Condition/Temp Abdomen Inspection Bowel Sounds (All Quadrants) 02/25/24 0824 Alert (0) 3 Regular Other (Comment) Nasal cannula Diminished Pale Warm;Dry;No swelling Soft Active 02/25/24 1137 Alert (0) 3 Regular -- Nasal cannula Diminished Pale Warm;Dry;No swelling -- -- 02/25/24 1232 -- -- -- -- -- Diminished Pale Warm;Dry Soft Active Labs Lab Results Component Value Date/Time WBC 7.4 02/25/2024 0458 HGB 8.9 (L) 02/25/2024 0458 HGB 9.1 02/13/2024 1020 HCT 29.2 (L) 02/25/2024 0458 PLT 244 02/25/2024 0458 NA 134 (L) 02/25/2024 0458 K 4.5 02/25/2024 0458 CL 103 02/25/2024 0458 CO2 24 02/25/2024 0458 BUN 40 (H) 02/25/2024 0458 CREATININE 5.02 (H) 02/25/2024 0458 CALCIUM 8.6 02/25/2024 0458 PHOS 4.0 02/06/2024 0610 IV Drips and Rate/Dose Safety - Before each treatment: Dialysis Machine No.: [id number] RO Machine Number: [id number] Dialyzer Lot No.: [id number] Tubing Lot Number: [id number] All Connections Secure: Yes Venous Parameters Set: Yes Arterial Parameters Set: Yes NS Bag: Yes Saline Line Double Clamped: Yes Dialyzer: Revaclear 300 Prime Volume (mL): 200 mL RO Machine Number: [id number] RO Machine Log Sheet Completed: Yes Machine Alarm Self Test: Completed, Passed (02/25/24743) Air Foam Detector: Tested, Proper Function, pH Reading Extracorporeal Circuit Tested for Integrity: Yes Machine Conductivity: 13.7 Manual Conductivity: 13.6 Manual Ph: 7 Bleach Test (Neg): Yes Bath Temperature: 36 C (96.8 F) Conductivity Meter Serial #: [id number] Machine Functioning Alarm Free? Yes Dialysis Bath: K+ (Potassium): 2 Ca+ (Calcium): 2.5 Na+ (Sodium): 137 HCO3 (Bicarb): 32 Chlorine Testing - Before each treatment and every 4 hours: Time On: 0831 Time Off: 1131 Treatment Goal: 3L (as tolerated SBP >100) Weight Height: 177.8 cm (5' 10) (02/16/24922) Weight: 60.5 kg (133 lb 6.4 oz) (02/25/24237) BMI (Calculated): 19.14 (02/25/24237) 1st check: less than 0.1 ppm at: 0545 2nd check: less than 0.1 ppm at: 0845 3rd check: Not Applicable (if greater than 0.1 ppm, then check every 30 minutes from secondary) Access Flows and Pressures Patient Vitals for the past 8 hrs: Blood Flow Rate (mL/min) Ultrafiltration Rate (ml/hr) Arterial Pressure (mmHg) Venous Pressure (mmHg) TMP DFR Access Visible Intra-Hemodialysis Comments 02/25/24 0831 200 mL/min 830 ml/hr -80 mmHg 80 mmHg 60 600 Yes tx initiated, call light in reach, 02/25/24 0834 400 mL/min 830 ml/hr -250 mmHg 180 mmHg 60 600 Yes bfr increased 02/25/24 0845 400 mL/min 830 ml/hr -220 mmHg 140 mmHg 60 600 Yes pt resting, removed 186 02/25/24 0900 400 mL/min 830 ml/hr -180 mmHg 130 mmHg 60 600 Yes pt sleeping, removed 412 02/25/24 0915 350 mL/min 390 ml/hr -180 mmHg 140 mmHg 50 600 Yes bfr lowered, and goal lowered to 1500 to support bp, removed 619 02/25/24 0930 350 mL/min 0 ml/hr -180 mmHg 140 mmHg 40 600 Yes pt uf turned off to support bp, removed 702 02/25/24 0945 300 mL/min 0 ml/hr -190 mmHg 130 mmHg 50 600 Yes pt resting, uf remains off, 02/25/24 1000 300 mL/min 390 ml/hr -190 mmHg 130 mmHg 50 600 Yes pt resating, uf back on, removed 704 02/25/24 1015 300 mL/min 390 ml/hr -180 mmHg 120 mmHg 60 600 Yes pt sleeping, lines secure, [id number] 02/25/24 1030 300 mL/min 350 ml/hr -180 mmHg 130 mmHg 60 600 Yes pt remains asleep, removed 895 02/25/24 1045 300 mL/min 350 ml/hr -180 mmHg 120 mmHg 50 600 Yes pt resting, lines secure, removed 983 02/25/24 1100 300 mL/min 350 ml/hr -180 mmHg 12 mmHg 50 600 Yes pt alert, talking to 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 ironer operator at bedside, removed 1082 02/25/24 1115 300 mL/min 350 ml/hr -180 mmHg 120 mmHg 60 600 Yes pt alert, stable, removed 1188 02/25/24 1131 -- -- -- -- -- -- -- tx dcd, removed 1280 Vital Signs Patient Vitals for the past 24 hrs: BP Temp Temp src Pulse Resp SpO2 Weight 02/25/24 1159 150/76 36.9 C (98.4 F) Temporal 78 16 96 % -- 02/25/24 1134 127/64 37 C (98.6 F) -- 75 -- -- -- 02/25/24 1131 115/62 -- -- 74 -- -- -- 02/25/24 1115 92/54 -- -- 76 -- -- -- 02/25/24 1100 124/61 -- -- 74 -- -- -- 02/25/24 1045 102/58 -- -- 78 -- -- -- 02/25/24 1030 103/63 -- -- 79 -- -- -- 02/25/24 1015 120/66 -- -- 78 -- -- -- 02/25/24 1000 108/63 -- -- 78 -- -- -- 02/25/24 0945 97/60 -- -- 78 -- -- -- 02/25/24 0930 (!) 89/61 -- -- 77 -- -- -- 02/25/24 0915 91/50 -- -- 76 -- -- -- 02/25/24 0900 118/66 -- -- 76 -- -- -- 02/25/24 0845 122/76 -- -- 74 -- -- -- 02/25/24 0834 143/73 -- -- 75 -- -- -- 02/25/24 0831 145/74 -- -- 76 -- -- -- 02/25/24 0824 136/72 37.2 C (99 F) -- 77 16 96 % -- 02/25/24 0800 142/76 36.8 C (98.3 F) Temporal 82 18 97 % -- 02/25/24 0244 128/66 36.5 C (97.7 F) Temporal 77 18 98 % -- 02/25/24 0238 -- -- -- -- -- -- 60.5 kg (133 lb 6.4 oz) 02/24/249 154/82 36.2 C (97.2 F) Temporal 72 18 94 % -- 02/24/24 1958 (!) 162/75 37 C (98.6 F) Temporal 66 18 99 % -- Post-Dialysis Arterial Catheter Locking Solution: Not Applicable Venous Catheter Locking Solution: Not Applicable Post-Treatment Procedures: Blood returned, Catheter capped, clamped and heparinized x 2 ports Machine Disinfection Process: Exterior Machine Disinfection Rinseback Volume (mL): 300 mL Total Liters Processed (L/min): 48.9 L/min Dialyzer Clearance: Lightly streaked Hemodialysis Intake (ml): 500 ml Hemodialysis Output (ml): 1300 ml NET Removed (ml): 800 ml Tolerated Treatment: Fair Patient Response to Treatment: stable Physician Notified: No Patient Disposition: Return to room Charge: $ IP Hemodialysis Charge: Hemodialysis Provider Notification Provider Notification Reason for Communication: Other (Comment) Provider Name: Dr nelson Provider Role: Resident Method of Communication: Secure chat Response: No new orders Notification Time: 2334 Shift Event: Fall with minor injury Reason for Communication: Other (Comment) Provider Role: Resident Method of Communication: Secure chat Response: No new orders Notification Time: 2335 Handoff complete and report given to Primary RN at 1135 . Primary RN (First Initial, Last Name, Title): Shreyas BRAR RN Education Person Educated: Patient Knowledge Base: Substantial Barriers to Learning?: None Preferred method of Learning: Oral Topic(s): call light, Access Care, Signs and Symptoms of Infection, Fluid Management, and Procedural Teaching Tools: Explanation Response to Education: Verbalized Understanding * Sonya Rocha RN - 02/23/2024 10:57 PM EDT Patient extremely anxious tearful at beginning of shift unsure if he will every make it home . Manyconcerns about new meds and insulin and where he will have to go when discharged emotional support given * Calderon Smith - 02/22/2024 8:19 AM EDT Patient Name: Jose John Patient : 1945 Acct: [id number] Date of Admission: 02/12/2024 Room/Bed: [facility] Code Status: Full Code Allergies: Allergies Allergen Reactions Lisinopril Wheezing Penicillins Anaphylaxis Sulfa Antibiotics Anaphylaxis Levofloxacin Nausea Only Diagnosis: Patient Active Problem List Diagnosis Unstable angina ([facility]) ([facility]) Coronary artery disease Multi-vessel coronary artery stenosis Carotid artery bruit Carotid arterial disease ([facility]) NSTEMI (non-ST elevated myocardial infarction) ([facility]) CKD (chronic kidney disease) stage 4, GFR 15-29 ml/min ([facility]) Cardiomyopathy, ischemic S/P CABG (coronary artery bypass graft) Severe malnutrition ([facility]) ([facility]) Shortness of breath Pleural effusion Treatment: Hemodilaysis 2:1 Priority: Routine Location: Acute Room Diabetic: No NPO: No Isolation Precautions: Dialysis Consent for Treatment Verified: Yes Blood Consent Verified: Not Applicable ICEBOAT: Identify, Consent, Equipment, HepB Status, Orders Complete, Access Verified, Timeliness (o2 and suction functional @ bedside) Second Clinician Verifying: Cindy Ricci RN Time out performed prior to access at 0805. Report Received from Primary RN at 0718. Primary RN (First Initial, Last Name, Title): Dontae Barker RN Incapacitated Nurse Education Completed: ws HBsAg ONLY: Date Drawn: February 05, 2024 Results: Negative HBsAb: Date Drawn: December 21, 2023 Results: Susceptible <10 Order Dialyzer: Revaclear 300 Na+ Modeling: Not Applicable Dialysate Temperature (C): 36 Blood Flow Rate (BFR): 400 Dialysate Flow Rate (DFR): 600 Access to be Utilized Access: Tunneled Catheter Location: Upper Extremity Side: Left Needle gauge: Not Applicable + Bruit/Thrill: Not Applicable First Use X-ray Verified: Not Applicable OK to use line order: Not Applicable Site Assessment: Signs and Symptoms of Infection/Inflammation: None If yes: Not Applicable Dressing: Dry and Intact Site Prep: Medical Aseptic Technique Dressing Changed this Treatment: No If yes, by whom: NA - not changed today Date of Last Dressing Change: February 20, [address]?: Yes Red Alcohol Caps in place?: Yes Gauze Dressing?: Yes Non-Dialysis Use?: No Comment: Flows: Good If access problem, who was notified: Pre and Post-Assessment Patient Vitals for the past 8 hrs: Level of Consciousness Heart Rhythm O2 Device Bilateral Breath Sounds Skin Condition/Temp Abdomen Inspection Bowel Sounds (All Quadrants) Edema RLE Edema LLE Edema 02/22/24 0400 -- -- -- Clear Warm;Dry Soft;Nondistended Active -- Non-pitting Non-pitting 02/22/24 0805 Alert (0) Regular Nasal cannula Clear Warm;Dry Soft Active Right lower extremity;Leftlower extremity Non-pitting Non-pitting 02/22/24 1118 Alert (0) Regular -- -- -- -- -- -- -- -- Labs Lab Results Component Value Date/Time WBC 6.3 02/22/2024108 HGB 8.4 (L) 02/22/2024108 HGB 9.1 02/13/2024 1020 HCT 28.3 (L) 02/22/2024 010 PLT 229 02/22/2024108 NA 133 (L) 02/22/2024108 K 4.1 02/22/2024108 CL 103 02/22/2024108 CO2 22 02/22/2024108 BUN 35 (H) 02/22/2024108 CREATININE 4.49 (H) 02/22/2024108 CALCIUM 8.6 02/22/2024108 PHOS 4.0 02/06/2024 0610 IV Drips and Rate/Dose Safety - Before each treatment: Dialysis Machine No.: [id number] RO Machine Number: [id number] Dialyzer Lot No.: [id number] Tubing Lot Number: [id number] All Connections Secure: Yes Venous Parameters Set: Yes Arterial Parameters Set: Yes NS Bag: Yes Saline Line Double Clamped: Yes Dialyzer: Revaclear 300 Prime Volume (mL): 200 mL RO Machine Number: [id number] RO Machine Log Sheet Completed: Yes Machine Alarm Self Test: Completed, Passed (02/22/24746) Air Foam Detector: Tested, Proper Function, pH Reading Extracorporeal Circuit Tested for Integrity: Yes Machine Conductivity: 13.6 Manual Conductivity: 13.6 Manual Ph: 7 Bleach Test (Neg): Yes Bath Temperature: 36 C (96.8 F) Conductivity Meter Serial #: [id number] Machine Functioning Alarm Free? Yes Dialysis Bath: K+ (Potassium): 2 Ca+ (Calcium): 2.5 Na+ (Sodium): 137 HCO3 (Bicarb): 32 Chlorine Testing - Before each treatment and every 4 hours: Time On: 0814 Time Off: 1114 Treatment Goal: 3L (as tolerated SBP >100) Weight Height: 177.8 cm (5' 10) (02/16/24 0923) Weight: 60.8 kg (134 lb) (02/22/2412) BMI (Calculated): 19.23 (02/22/2412) 1st check: less than 0.1 ppm at: 0545 2nd check: less than 0.1 ppm at: 0845 3rd check: Not Applicable (if greater than 0.1 ppm, then check every 30 minutes from secondary) Access Flows and Pressures Patient Vitals for the past 8 hrs: Blood Flow Rate (mL/min) Ultrafiltration Rate (ml/hr) Arterial Pressure (mmHg) Venous Pressure (mmHg) TMP DFR Access Visible Intra-Hemodialysis Comments 02/22/24 0805 -- -- -- -- -- -- Yes pt aware of call light within reach and educated on use of calllight 02/22/24 0814 200 mL/min 670 ml/hr -60 mmHg 70 mmHg 60 600 Yes tx iniated lines secured pt stable 02/22/24 0815 400 mL/min 670 ml/hr -160 mmHg 180 mmHg 50 600 Yes bfr increased 02/22/24 0830 400 mL/min 670 ml/hr -200 mmHg 180 mmHg 60 600 Yes pt stable, watchin tv, 204 removed 02/22/24 0845 400 mL/min 670 ml/hr -200 mmHg 190 mmHg 60 600 Yes Pt stable rmvd 404. Call light in reach. 02/22/24 0901 400 mL/min 670 ml/hr -200 mmHg 180 mmHg 60 600 Yes Pt stable rmvd 529 sleeping.. 02/22/24 0915 400 mL/min 670 ml/hr -200 mmHg 190 mmHg 60 600 Yes Pt stable rmvd 698. Acid and bicarb changed. Conductivity 13.8 02/22/24 0930 400 mL/min 670 ml/hr -200 mmHg 190 mmHg 60 600 Yes Pt stable rmvd 887 resting. 02/22/24 0945 400 mL/min 670 ml/hr -200 mmHg 190 mmHg 60 600 Yes Pt stable rmvd 1078 02/22/24 1001 400 mL/min 670 ml/hr -210 mmHg 190 mmHg 60 600 Yes Pt stable rmvd 1183. 02/22/24 1015 400 mL/min 670 ml/hr -210 mmHg 190 mmHg 50 600 Yes pt stable, uf removed is 1367 02/22/24 1034 400 mL/min 670 ml/hr -210 mmHg 190 mmHg 60 600 Yes pt resting, eyes closed. uf removed is 1551 02/22/24 1045 400 mL/min 670 ml/hr -210 mmHg 190 mmHg 60 600 Yes Pt stable rmvd 1711 02/22/24 1100 400 mL/min 670 ml/hr -210 mmHg 190 mmHg 60 600 Yes Pt alert resting watching tv. [id number] 02/22/24 1114 -- -- -- -- -- -- -- Pt alert stable. Rmvd 1999 Vital Signs Patient Vitals for the past 24 hrs: BP Temp Temp src Pulse Resp SpO2 Weight 02/22/24 1118 152/80 -- -- 82 16 98 % -- 02/22/24 1114 (!) 163/80 36.8 C (98.2 F) -- 82 -- -- -- 02/22/24 1100 149/72 -- -- 83 -- -- -- 02/22/24 1045 149/76 -- -- 81 -- -- -- 02/22/24 1034 149/75 -- -- 81 -- -- -- 02/22/24 1015 (!) 154/101 -- -- 79 -- -- -- 02/22/24 1001 158/76 -- -- 79 -- -- -- 02/22/24 0945 (!) 136/103 -- -- 80 -- -- -- 02/22/24 0930 145/69 -- -- 81 -- -- -- 02/22/24 0915 (!) 167/83 -- -- 81 -- -- -- 02/22/24 0901 (!) 174/81 -- -- 82 -- -- -- 02/22/24 0845 (!) 168/81 -- -- 78 -- -- -- 02/22/24 0830 (!) 176/89 -- -- 79 -- -- -- 02/22/24 0815 (!) 140/107 -- -- 76 -- -- -- 02/22/24 0814 126/91 -- -- 84 -- -- -- 02/22/24 0805 (!) 171/78 37.4 C (99.4 F) -- 80 18 95 % -- 02/22/24 0415 152/77 36.6 C (97.8 F) Temporal 83 19 95 % -- 02/22/24 0218 144/77 -- Temporal 79 19 95 % -- 02/22/24 0058 (!) 165/88 -- Temporal 81 20 96 % -- 02/22/24 0013 -- -- -- -- -- -- 60.8 kg (134 lb) 02/21/24 2334 (!) 162/98 (!) 35.7 C (96.2 F) Temporal 89 19 96 % -- 02/21/24 2326 154/79 36.7 C (98.1 F) Temporal 78 18 94 % -- 02/21/242016 (!) 167/84 36.7 C (98 F) Temporal 83 18 97 % -- 02/21/24 1619 144/65 36.3 C (97.4 F) Temporal 72 20 94 % -- Post-Dialysis Arterial Catheter Locking Solution: Heparin (1000units:1ml) Volume (ml): 1.9 Venous Catheter Locking Solution: Heparin (1000units:1ml) Volume (ml): 2.0 Post-Treatment Procedures: Blood returned, Catheter capped, clamped and heparinized x 2 ports Machine Disinfection Process: Exterior Machine Disinfection Rinseback Volume (mL): 300 mL Total Liters Processed (L/min): 66.5 L/min Dialyzer Clearance: Lightly streaked Hemodialysis Intake (ml): 500 ml Hemodialysis Output (ml): 2000 ml NET Removed (ml): 1500 ml Tolerated Treatment: Fair Patient Response to Treatment: stable Physician Notified: No Patient Disposition: Return to room Charge: $ IP Hemodialysis Charge: Hemodialysis Provider Notification Provider Notification Reason for Communication: Other (Comment) Provider Name: Dr nelson Provider Role: Resident Method of Communication: Secure chat Response: No new orders Notification Time: 2334 Shift Event: Fall with minor injury Reason for Communication: Other (Comment) Provider Role: Resident Method of Communication: Secure chat Response: No new orders Notification Time: 5 Handoff complete and report given to Primary RN at 1130. Primary RN (First Initial, Last Name, Title): Dontae Barker. RN Education Person Educated: Patient Knowledge Base: Minimal Barriers to Learning?: None Preferred method of Learning: Oral Topic(s): call light, Access Care, Signs and Symptoms of Infection, and Fluid Management Teaching Tools: Demonstration Response to Education: Verbalized Understanding * Taya Dietrich RN - 02/21/2024 11:31 PM EDT Chanel heard coming from the patients room, upon arrival to the room, patient found on the floor sitting on his buttocks, no injuries noted, Denies LOC, and denies hitting his head. Patient states that he was getting to the bedside commode and tripped on the phone cord that was on the floor, he grabbed onto the curtain and landed on his buttocks. Buttocks without swelling or ecchymosis. States its a little sore. Patient assisted back to bed and reminded of the importance of calling staff before getting out of bed. Verbalized understanding. No new orders recieved * Candido Lawson - 02/20/2024 11:23 AM EDT Patient Name: Jose John Patient : 1945 Acct: [id number] Date of Admission: 02/12/2024 Room[facility]Bed: [facility] Code Status: Full Code Allergies: Allergies Allergen Reactions Lisinopril Wheezing Penicillins Anaphylaxis Sulfa Antibiotics Anaphylaxis Levofloxacin Nausea Only Diagnosis: Patient Active Problem List Diagnosis Unstable angina ([facility]) ([facility]) Coronary artery disease Multi-vessel coronary artery stenosis Carotid artery bruit Carotid arterial disease ([facility]) NSTEMI (non-ST elevated myocardial infarction) ([facility]) CKD (chronic kidney disease) stage 4, GFR 15-29 ml/min ([facility]) Cardiomyopathy, ischemic S/P CABG (coronary artery bypass graft) Severe malnutrition ([facility]) ([facility]) Shortness of breath Pleural effusion Treatment: Hemodilaysis 2:1 Priority: Routine Location: Acute Room Diabetic: Yes NPO: No Isolation Precautions: Dialysis Consent for Treatment Verified: Yes Blood Consent Verified: Not Applicable ICEBOAT: Identify, Consent, Equipment, HepB Status, Orders Complete, Access Verified, Timeliness Second Clinician Verifying: Ileana Lawson Time out performed prior to access at 1015. Report Received from Primary RN at 0736. Primary RN (First Initial, Last Name, Title): Shreyas MACDONALD RN Incapacitated Nurse Education Completed: pee crespo rn HBsAg ONLY: Date Drawn: February 05, 2024 Results: Negative HBsAb: Date Drawn: February 05, 2024 Results: Susceptible <10 Order Dialyzer: Revaclear 300 Na+ Modeling: Not Applicable Dialysate Temperature (C): 36 Blood Flow Rate (BFR): 400 Dialysate Flow Rate (DFR): 600 Access to be Utilized Access: Tunneled Catheter Location: Internal Jugular Side: Left Needle gauge: Not Applicable + Bruit/Thrill: Not Applicable First Use X-ray Verified: Not Applicable OK to use line order: Yes Site Assessment: Signs and Symptoms of Infection/Inflammation: None If yes: Not Applicable Dressing: Dry and Intact Site Prep: Medical Aseptic Technique Dressing Changed this Treatment: Yes If yes, by whom: Linda MILLS Date of Last Dressing Change: February 12, [address]?: Yes Red Alcohol Caps in place?: Yes Gauze Dressing?: No Non-Dialysis Use?: No Comment: Flows: Good and Patent If access problem, who was notified: Pre and Post-Assessment Patient Vitals for the past 8 hrs: Level of Consciousness Oriented X Heart Rhythm O2 Device Bilateral Breath Sounds Skin Color Skin Condition/Temp Abdomen Inspection Bowel Sounds (All Quadrants) 02/20/24 0800 -- -- -- -- Diminished [place] Warm;Dry Soft;Nondistended Active 02/20/24 1018 Alert (0) 3 Regular Nasal cannula Diminished [place] Warm;Dry Soft;Rounded Active 02/20/24 1324 Alert (0) 3 Regular Nasal cannula -- [place] Dry;Warm Soft;Rounded Active Labs Lab Results Component Value Date/Time WBC 7.2 02/12/2024 0234 HGB 9.1 02/13/2024 1020 HCT 29.8 (L) 02/12/2024 0234 PLT 184 02/12/2024 0234 NA 133 (L) 02/18/2024 0140 K 4.3 02/18/2024 0140 CL 102 02/18/2024 0140 CO2 27 02/18/2024 0140 BUN 41 (H) 02/18/2024 0140 CREATININE 5.35 (H) 02/18/2024 0140 CALCIUM 8.6 02/18/2024 0140 PHOS 4.0 02/06/2024 0610 IV Drips and Rate/Dose Safety - Before each treatment: Dialysis Machine No.: [id number] Machine Number: [id number] Dialyzer Lot No.: [id number] Tubing Lot Number: [id number] All Connections Secure: Yes Venous Parameters Set: Yes Arterial Parameters Set: Yes NS Bag: Yes Saline Line Double Clamped: Yes Dialyzer: Revaclear 300 Prime Volume (mL): 200 mL RO Machine Number: [id number] RO Machine Log Sheet Completed: Yes Machine Alarm Self Test: Completed, Passed (02/20/24 0831) Air Foam Detector: Tested, Proper Function, pH Reading Extracorporeal Circuit Tested for Integrity: Yes Machine Conductivity: 13.7 Manual Conductivity: 13.6 Manual Ph: 7 Bleach Test (Neg): Yes Bath Temperature: 36 C (96.8 F) Conductivity Meter Serial #: [id number] Machine Functioning Alarm Free? Yes Dialysis Bath: K+ (Potassium): 2 Ca+ (Calcium): 2.5 Na+ (Sodium): 137 HCO3 (Bicarb): 32 Chlorine Testing - Before each treatment and every 4 hours: Time On: 1020 Time Off: 1320 Treatment Goal: 1-3L, keep sbp >100 Weight Height: 177.8 cm (5' 10) (02/16/24 0923) Weight: 59.6 kg (131 lb 6.4 oz) (02/20/24320) BMI (Calculated): 18.85 (02/20/24320) 1st check: less than 0.1 ppm at: 0845 2nd check: less than 0.1 ppm at: 1145 3rd check: Not Applicable (if greater than 0.1 ppm, then check every 30 minutes from secondary) Access Flows and Pressures Patient Vitals for the past 8 hrs: Blood Flow Rate (mL/min) Ultrafiltration Rate (ml/hr) Arterial Pressure (mmHg) Venous Pressure (mmHg) TMP DFR Access Visible Intra-Hemodialysis Comments 02/20/24 1020 200 mL/min 830 ml/hr -40 mmHg 30 mmHg 60 600 Yes tx initiated, call light in reach 02/20/24 1023 400 mL/min 830 ml/hr -150 mmHg 120 mmHg 60 600 Yes bfr increased 02/20/24 1030 400 mL/min 830 ml/hr -160 mmHg 140 mmHg 70 600 Yes pt alert, stable, removed 268 02/20/24 1045 400 mL/min 830 ml/hr -170 mmHg 140 mmHg 70 600 Yes pt alert, watching tv, removed 422 02/20/24 1100 400 mL/min 830 ml/hr -170 mmHg 140 mmHg 60 600 Yes pt alert, stable, removed 595 02/20/24 1115 400 mL/min 830 ml/hr -170 mmHg 140 mmHg 60 600 Yes pt sleeping, removed 824 02/20/24 1130 400 mL/min 830 ml/hr -180 mmHg 130 mmHg 40 600 Yes pt sleeping, goal lowered to 2000 to support bp, removed 997 02/20/24 1145 400 mL/min 0 ml/hr -150 mmHg 130 mmHg 50 600 Yes pt alert, uf off, and 200 ns bolus given to support bp, rn notified, pt states he feels ok, removed 1137 02/20/24 1200 400 mL/min 0 ml/hr -170 mmHg 150 mmHg 40 600 Yes pt alert, watching tv, uf remains off 02/20/24 1230 400 mL/min 240 ml/hr -170 mmHg 160 mmHg 40 600 Yes pt resting, uf removal 1287 02/20/24 1245 400 mL/min 240 ml/hr -170 mmHg 150 mmHg 50 600 Yes pt resting, lines secure, removed 1354 02/20/24 1300 400 mL/min 240 ml/hr -170 mmHg 150 mmHg 50 600 Yes pt alert, looking at phone, removed 1412 02/20/24 1320 -- -- -- -- -- -- -- tx dcd, removed 1500 Vital Signs Patient Vitals for the past 24 hrs: BP Temp Temp src Pulse Resp SpO2 Weight 02/20/24 1324 -- -- -- -- 16 90 % -- 02/20/24 1321 114/55 36.4 C (97.6 F) -- 67 -- -- -- 02/20/24 1320 109/54 -- -- 67 -- -- -- 02/20/24 1300 118/54 -- -- 68 -- -- -- 02/20/24 1245 131/61 -- -- 65 -- -- -- 02/20/24 1230 114/56 -- -- 66 -- -- -- 02/20/24 1200 (!) 103/47 -- -- 68 -- -- -- 02/20/24 1145 (!) 83/40 -- -- 65 -- -- -- 02/20/24 1130 (!) 93/43 -- -- 63 -- -- -- 02/20/24 1115 104/52 -- -- 65 -- -- -- 02/20/24 1100 125/66 -- -- 65 -- -- -- 02/20/24 1045 137/65 -- -- 69 -- -- -- 02/20/24 1030 145/72 -- -- 72 -- -- -- 02/20/24 1023 140/69 -- -- 74 -- -- -- 02/20/24 1020 150/72 -- -- 74 -- -- -- 02/20/24 1018 150/71 36.1 C (97 F) -- 75 16 90 % -- 02/20/24 0828 149/72 36.2 C (97.1 F) Temporal 80 18 96 % -- 02/20/24 0340 (!) 168/81 -- -- -- -- -- -- 02/20/24 0321 -- -- -- -- -- -- 59.6 kg (131 lb 6.4 oz) 02/20/24 0319 (!) 179/89 36.3 C (97.4 F) Temporal 83 18 92 % -- 02/19/24 2321 142/76 36.9 C (98.5 F) Temporal 76 18 94 % -- 02/19/242008 149/65 37.1 C (98.7 F) Temporal 73 16 94 % -- 02/19/24 1548 141/74 36.8 C (98.3 F) Temporal 71 18 97 % -- Post-Dialysis Arterial Catheter Locking Solution: Heparin (1000units:1ml) Volume (ml): 1.9 Venous Catheter Locking Solution: Heparin (1000units:1ml) Volume (ml): 2 Post-Treatment Procedures: Blood returned, Catheter capped, clamped and heparinized x 2 ports Machine Disinfection Process: Exterior Machine Disinfection Rinseback Volume (mL): 300 mL Total Liters Processed (L/min): 66.3 L/min Dialyzer Clearance: Lightly streaked Hemodialysis Intake (ml): 500 ml Hemodialysis Output (ml): 1500 ml NET Removed (ml): 1000 ml Tolerated Treatment: Fair Patient Response to Treatment: stable Physician Notified: No Patient Disposition: Return to room Charge: $ IP Hemodialysis Charge: Hemodialysis Provider Notification Provider Notification Reason for Communication: Review case (pt needs blood sugar checks and lantus nightly, this is his home orders) Provider Name: Dr. atkins Provider Role: Hospitalist Method of Communication: Secure chat Response: Waiting for response Notification Time: 1918 Reason for Communication: Review case (pt needs blood sugar checks and lantus nightly, this is his home orders) Provider Role: Hospitalist Method of Communication: Secure chat Response: Waiting for response Notification Time: 1918 Handoff complete and report given to Primary RN at 1327. Primary RN (First Initial, Last Name, Title): Shreyas MACDONALD RN Education Person Educated: Patient Knowledge Base: Substantial Barriers to Learning?: None Preferred method of Learning: Oral Topic(s): call light, Access Care, Signs and Symptoms of Infection, Fluid Management, and Procedural Teaching Tools: Explanation Response to Education: Verbalized Understanding * Leana Collins RN - 02/19/2024 9:53 AM EDT Patient arrived to Ultrasound department for thoracentesis. History, medications and allergies reviewed. Yesenia Nolen PA-C in to discuss procedure and informed consent obtained. Patient assisted to sitting on the edge of the bed. Right upper back scanned, marked and prepped in sterile fashion. 500mL of clear yellow fluid removed. Vaseline guaze dressing applied. Patient tolerated procedure well. Pt transported to [address] [place] [address]. * Candido Lawson - 02/18/2024 2:45 PM EDT Patient Name: Jose John Patient : 1945 Acct: [id number] Date of Admission: 02/12/2024 Room/Bed: [facility] Code Status: Full Code Allergies: Allergies Allergen Reactions Lisinopril Wheezing Penicillins Anaphylaxis Sulfa Antibiotics Anaphylaxis Levofloxacin Nausea Only Diagnosis: Patient Active Problem List Diagnosis Unstable angina ([facility]) ([facility]) Coronary artery disease Multi-vessel coronary artery stenosis Carotid artery bruit Carotid arterial disease ([facility]) NSTEMI (non-ST elevated myocardial infarction) ([facility]) CKD (chronic kidney disease) stage 4, GFR 15-29 ml/min ([facility]) Cardiomyopathy, ischemic S/P CABG (coronary artery bypass graft) Severe malnutrition (CMS/HCC) ([facility]) Shortness of breath Pleural effusion Treatment: Hemodilaysis 2:1 Priority: Routine Location: Acute Room Diabetic: Yes NPO: No Isolation Precautions: Dialysis Consent for Treatment Verified: Yes Blood Consent Verified: Not Applicable ICEBOAT: Identify, Consent, Equipment, HepB Status, Orders Complete, Access Verified, Timeliness (o2 and wall suction bedside) Second Clinician Verifying: Victoriano Christy Time out performed prior to access at 1229. Report Received from Primary RN at 1000. Primary RN (First Initial, Last Name, Title): Shirlene TERAN RN Incapacitated Nurse Education Completed: shaheen christy rn HBsAg ONLY: Date Drawn: February 05, 2024 Results: Negative HBsAb: Date Drawn: February 05, 2024 Results: Susceptible <10 Order Dialyzer: Revaclear 300 Na+ Modeling: Not Applicable Dialysate Temperature (C): 36 Blood Flow Rate (BFR): 400 Dialysate Flow Rate (DFR): 600 Access to be Utilized Access: Tunneled Catheter Location: Internal Jugular Side: Left Needle gauge: Not Applicable + Bruit/Thrill: Not Applicable First Use X-ray Verified: Not Applicable OK to use line order: Yes Site Assessment: Signs and Symptoms of Infection/Inflammation: None If yes: Not Applicable Dressing: Dry and Intact Site Prep: Medical Aseptic Technique Dressing Changed this Treatment: No If yes, by whom: NA - not changed today Date of Last Dressing Change: February 12, [address]?: Yes Red Alcohol Caps in place?: Yes Gauze Dressing?: No Non-Dialysis Use?: No Comment: Flows: Good and Patent If access problem, who was notified: Pre and Post-Assessment Patient Vitals for the past 8 hrs: Level of Consciousness Oriented X Heart Rhythm Respiratory Pattern O2 Device Bilateral Breath Sounds Skin Color Skin Condition/Temp Abdomen Inspection Bowel Sounds (All Quadrants) 02/18/24 1230 Alert (0) 3 Regular Other (Comment) Nasal cannula Clear;Diminished [place] Warm;Dry;Swollen Soft Active 02/18/24 1542 Alert (0) 3 Regular -- Nasal cannula Clear [place] Warm;Dry;No swelling -- -- Labs Lab Results Component Value Date/Time WBC 7.2 02/12/2024 0234 HGB 9.1 02/13/2024 1020 HCT 29.8 (L) 02/12/2024233 PLT 184 02/12/2024 0234 NA 133 (L) 02/18/2024 0140 K 4.3 02/18/2024 014 CL 102 02/18/2024 014 CO2 27 02/18/2024 014 BUN 41 (H) 02/18/2024 014 CREATININE 5.35 (H) 02/18/2024 014 CALCIUM 8.6 02/18/2024 014 PHOS 4.0 02/06/2024 0610 IV Drips and Rate/Dose Safety - Before each treatment: Dialysis Machine No.: [id number] RO Machine Number: [id number] Dialyzer Lot No.: [id number] Tubing Lot Number: [id number] All Connections Secure: Yes Venous Parameters Set: Yes Arterial Parameters Set: Yes NS Bag: Yes Saline Line Double Clamped: Yes Dialyzer: Revaclear 300 Prime Volume (mL): 200 mL RO Machine Number: [id number] RO Machine Log Sheet Completed: Yes Machine Alarm Self Test: Completed, Passed (02/18/24 1210) Air Foam Detector: Tested, Proper Function, pH Reading Extracorporeal Circuit Tested for Integrity: Yes Machine Conductivity: 13.8 Manual Conductivity: 13.7 Manual Ph: 7 Bleach Test (Neg): Yes Bath Temperature: 36 C (96.8 F) Conductivity Meter Serial #: [id number] Machine Functioning Alarm Free? Yes Dialysis Bath: K+ (Potassium): 2 Ca+ (Calcium): 2.5 Na+ (Sodium): 137 HCO3 (Bicarb): 32 Chlorine Testing - Before each treatment and every 4 hours: Time On: 1234 Time Off: 1534 Treatment Goal: 1-3L Weight Height: 177.8 cm (5' 10) (02/16/24 0923) Weight: 60.6 kg (133 lb 8 oz) (02/18/24143) BMI (Calculated): 19.16 (02/18/24143) 1st check: less than 0.1 ppm at: 1145 2nd check: less than 0.1 ppm at: 1445 3rd check: Not Applicable (if greater than 0.1 ppm, then check every 30 minutes from secondary) Access Flows and Pressures Patient Vitals for the past 8 hrs: Blood Flow Rate (mL/min) Ultrafiltration Rate (ml/hr) Arterial Pressure (mmHg) Venous Pressure (mmHg) TMP DFR Access Visible Intra-Hemodialysis Comments 02/18/24 1234 200 mL/min 1170 ml/hr -60 mmHg 60 mmHg 70 600 Yes Tx initiated call light within reach 02/18/24 1235 400 mL/min 1170 ml/hr -210 mmHg 210 mmHg 70 600 Yes Bfr increased 02/18/24 1245 400 mL/min 1170 ml/hr -200 mmHg 140 mmHg 70 600 Yes pt alert, watching tv, removed 304 02/18/24 1300 300 mL/min 1170 ml/hr -180 mmHg 190 mmHg 60 600 Yes pt alert, bfr lowered due to higharterial pressure, removed 503 02/18/24 1315 300 mL/min 1170 ml/hr -180 mmHg 180 mmHg 60 600 Yes pt resting, removed 572 02/18/24 1330 300 mL/min 1170 ml/hr -200 mmHg 190 mmHg 60 600 Yes pt resting, removed 674 02/18/24 1340 300 mL/min 1170 ml/hr -200 mmHg 150 mmHg 60 600 Yes pt alert, stable, removed 763 02/18/24 1400 300 mL/min 1170 ml/hr -190 mmHg 140 mmHg 650 600 Yes Pt stable Rmvd 883. 02/18/24 1410 300 mL/min 1170 ml/hr -200 mmHg 140 mmHg 60 600 Yes Pt resting rmv 949 02/18/24 1430 300 mL/min 1170 ml/hr -200 mmHg 140 mmHg 60 600 Yes pt watching tv, removed 1047 02/18/24 1445 300 mL/min 1170 ml/hr -200 mmHg 130 mmHg 60 600 Yes pt alert, looking at phone, removed 1148 02/18/24 1500 300 mL/min 1170 ml/hr -220 mmHg 130 mmHg 60 600 Yes pt alert, removed 1264 02/18/24 1515 300 mL/min 1170 ml/hr -230 mmHg 140 mmHg 60 600 Yes pt alert, stable, removed 1333 02/18/24 1530 300 mL/min 1170 ml/hr -200 mmHg 100 mmHg 60 600 Yes pt alert, removed 1450 02/18/24 1534 -- -- -- -- -- -- -- tx dcd, removed 1500 Vital Signs Patient Vitals for the past 24 hrs: BP Temp Temp src Pulse Resp SpO2 Weight 02/18/24 1618 132/55 36.2 C (97.1 F) Temporal 78 16 95 % -- 02/18/24 1542 125/71 36.8 C (98.2 F) -- 77 -- -- -- 02/18/24 1534 106/80 -- -- 84 -- -- -- 02/18/24 1530 136/65 -- -- 74 -- -- -- 02/18/24 1515 125/65 -- -- 77 -- -- -- 02/18/24 1500 128/63 -- -- 74 -- -- -- 02/18/24 1445 146/72 -- -- 73 -- -- -- 02/18/24 1430 136/88 -- -- 70 -- -- -- 02/18/24 1410 130/65 -- -- 73 -- -- -- 02/18/24 1400 129/83 -- -- 72 -- -- -- 02/18/24 1340 105/55 -- -- 73 -- -- -- 02/18/24 1330 119/63 -- -- 70 -- -- -- 02/18/24 1315 116/71 -- -- 77 -- -- -- 02/18/24 1300 90/53 -- -- 74 -- -- -- 02/18/24 1245 115/61 -- -- 76 -- -- -- 02/18/24 1235 133/70 -- -- 78 -- -- -- 02/18/24 1234 133/69 -- -- 80 -- -- -- 02/18/24 1230 132/56 36.6 C (97.8 F) -- 80 16 90 % -- 02/18/24 1033 138/64 37 C (98.6 F) Temporal 80 16 96 % -- 02/18/24 0837 134/63 36 C (96.8 F) Temporal 80 16 91 % -- 02/18/24 0416 142/73 36.9 C (98.4 F) Temporal 85 16 92 % -- 02/18/24 0144 -- -- -- -- -- -- 60.6 kg (133 lb 8 oz) 02/17/24 2324 127/63 36.6 C (97.9 F) Temporal 71 16 92 % -- 02/17/242000 136/68 36.3 C (97.3 F) Temporal 76 16 95 % -- Post-Dialysis Arterial Catheter Locking Solution: Heparin (1000units:1ml) Volume (ml): 1.9 Venous Catheter Locking Solution: Heparin (1000units:1ml) Volume (ml): 1.2 Post-Treatment Procedures: Blood returned, Catheter capped, clamped with Citrate x 2 ports Machine Disinfection Process: Acid/Vinegar Clean, Heat Disinfect, Exterior Machine Disinfection Rinseback Volume (mL): 300 mL Total Liters Processed (L/min): 48.6 L/min Dialyzer Clearance: Lightly streaked Hemodialysis Intake (ml): 500 ml Hemodialysis Output (ml): 1500 ml NET Removed (ml): 1000 ml Tolerated Treatment: Good Charge: $ IP Hemodialysis Charge: Hemodialysis Provider Notification Provider Notification Reason for Communication: Review case (pt needs blood sugar checks and lantus nightly, this is his home orders) Provider Name: Dr. atkins Provider Role: Hospitalist Method of Communication: Secure chat Response: Waiting for response Notification Time: 1918 Reason for Communication: Review case (pt needs blood sugar checks and lantus nightly, this is his home orders) Provider Role: Hospitalist Method of Communication: Secure chat Response: Waiting for response Notification Time: 1918 Handoff complete and report given to Primary RN at 1610. Primary RN (First Initial, Last Name, Title): Shirlene TERAN RN Education Person Educated: Patient Knowledge Base: Substantial Barriers to Learning?: None Preferred method of Learning: Oral Topic(s): call light, Access Care, Signs and Symptoms of Infection, Fluid Management, and Procedural Teaching Tools: Explanation Response to Education: Verbalized Understanding * Calderon Smith - 02/15/2024 8:58 AM EDT Patient Name: Jose John Patient : 1945 Acct: [id number] Date of Admission: 02/12/2024 Room/Bed: [facility] Code Status: Full Code Allergies: Allergies Allergen Reactions Lisinopril Wheezing Penicillins Anaphylaxis Sulfa Antibiotics Anaphylaxis Levofloxacin Nausea Only Diagnosis: Patient Active Problem List Diagnosis Unstable angina ([facility]) ([facility]) Coronary artery disease Multi-vessel coronary artery stenosis Carotid artery bruit Carotid arterial disease ([facility]) NSTEMI (non-ST elevated myocardial infarction) ([facility]) CKD (chronic kidney disease) stage 4, GFR 15-29 ml/min ([facility]) Cardiomyopathy, ischemic S/P CABG (coronary artery bypass graft) Severe malnutrition ([facility]) ([facility]) Shortness of breath Pleural effusion Treatment: Hemodilaysis 2:1 Priority: Routine Location: Acute Room Diabetic: Yes NPO: No Isolation Precautions: Dialysis Consent for Treatment Verified: Yes Blood Consent Verified: Not Applicable ICEBOAT: Identify, Consent, Equipment, HepB Status, Orders Complete, Access Verified, Timeliness (o2 and wall suction bedside) Second Clinician Verifying: Victoriano Christy Time out performed prior to access at 0840. Report Received from Primary RN at 0740. Primary RN (First Initial, Last Name, Title): Ceci Ambriz RN Incapacitated Nurse Education Completed: nc HBsAg ONLY: Date Drawn: February 05, 2024 Results: Negative HBsAb: Date Drawn: January 17, 2024 Results: Susceptible <10 Order Dialyzer: Revaclear 300 Na+ Modeling: Not Applicable Dialysate Temperature (C): 36 Blood Flow Rate (BFR): 400 Dialysate Flow Rate (DFR): 600 Access to be Utilized Access: Tunneled Catheter Location: Upper Extremity Side: Left Needle gauge: Not Applicable + Bruit/Thrill: Not Applicable First Use X-ray Verified: Not Applicable OK to use line order: Not Applicable Site Assessment: Signs and Symptoms of Infection/Inflammation: None If yes: Not Applicable Dressing: Dry and Intact Site Prep: Medical Aseptic Technique Dressing Changed this Treatment: No If yes, by whom: NA - not changed today Date of Last Dressing Change: February 12, [address]?: Yes Red Alcohol Caps in place?: Yes Gauze Dressing?: Yes Non-Dialysis Use?: No Comment: Flows: Good If access problem, who was notified: Pre and Post-Assessment Patient Vitals for the past 8 hrs: Level of Consciousness Oriented X Heart Rhythm O2 Device Bilateral Breath Sounds Skin Color Skin Condition/Temp Abdomen Inspection Bowel Sounds (All Quadrants) 02/15/24 0840 Responds to voice (1) -- Regular Non-rebreather mask Diminished Pale Warm;Dry;No swelling Soft Active 02/15/24 1148 Alert (0) 3 Regular Non-rebreather mask Diminished Pale -- -- -- Labs Lab Results Component Value Date/Time WBC 7.2 02/12/2024 0234 HGB 9.1 02/13/2024 1020 HCT 29.8 (L) 02/12/2024 0234 PLT 184 02/12/2024 0234 NA 132 (L) 02/15/2024 0337 K 4.6 02/15/2024 0337 CL 103 02/15/2024 0337 CO2 24 02/15/2024 033 BUN 38 (H) 02/15/2024 033 CREATININE 5.09 (H) 02/15/2024 033 CALCIUM 8.4 02/15/2024 033 PHOS 4.0 02/06/2024 0610 IV Drips and Rate/Dose Safety - Before each treatment: Dialysis Machine No.: [id number] Machine Number: [id number] Dialyzer Lot No.: [id number] Tubing Lot Number: [id number] All Connections Secure: Yes Venous Parameters Set: Yes Arterial Parameters Set: Yes NS Bag: Yes Saline Line Double Clamped: Yes Dialyzer: Revaclear 300 Prime Volume (mL): 200 mL RO Machine Number: [id number] RO Machine Log Sheet Completed: Yes Machine Alarm Self Test: Completed, Passed (02/15/24 07) Air Foam Detector: Tested, Proper Function, pH Reading Extracorporeal Circuit Tested for Integrity: Yes Machine Conductivity: 13.8 Manual Conductivity: 13.8 Manual Ph: 7 Bleach Test (Neg): Yes Conductivity Meter Serial #: [id number] Machine Functioning Alarm Free? Yes Dialysis Bath: K+ (Potassium): 2 Ca+ (Calcium): 2.5 Na+ (Sodium): 37 HCO3 (Bicarb): 32 Chlorine Testing - Before each treatment and every 4 hours: Time On: 0845 Time Off: 1145 Treatment Goal: 1-3L Weight Height: 177.8 cm (5' 10) (02/12/24 0203) Weight: 58.2 kg (128 lb 4.8 oz) (02/15/24336) BMI (Calculated): 18.41 (02/15/24336) 1st check: less than 0.1 ppm at: 0545 2nd check: less than 0.1 ppm at: 0845 3rd check: less than 0.1 ppm at 1145 (if greater than 0.1 ppm, then check every 30 minutes from secondary) Access Flows and Pressures Patient Vitals for the past 8 hrs: Blood Flow Rate (mL/min) Ultrafiltration Rate (ml/hr) Arterial Pressure (mmHg) Venous Pressure (mmHg) TMP DFR Access Visible Intra-Hemodialysis Comments 02/15/24 0845 200 mL/min 1170 ml/hr -60 mmHg 50 mmHg 50 600 Yes Tx initiated call light within reach 02/15/24 0847 400 mL/min 1170 ml/hr -170 mmHg 210 mmHg 60 600 Yes Bfr increased 02/15/24 0900 400 mL/min 1000 ml/hr -210 mmHg 190 mmHg 70 600 Yes Pt stable rmvd 306 resting. Linessecure. Call light in reach. 02/15/24 0915 400 mL/min 1000 ml/hr -230 mmHg 200 mmHg 70 600 Yes Pt stable rmvd 687 sleeping. 02/15/24 0930 400 mL/min 1000 ml/hr -230 mmHg 200 mmHg 70 600 Yes Pt stable rmvd 797 resting. 02/15/24 0945 400 mL/min 1000 ml/hr -230 mmHg 200 mmHg 70 600 Yes Pt stable rmvd 1088 Bicarb and acidm changed,. Conductivity 13.6. Stable. 02/15/24 1000 400 mL/min 1000 ml/hr -240 mmHg 200 mmHg 70 600 Yes Pt stable rmvd 1316 sleeping. Lines secure. 02/15/24 1017 400 mL/min 1000 ml/hr -240 mmHg 210 mmHg 50 600 Yes Pt stable rmvd 1488 02/15/24 1030 400 mL/min 1000 ml/hr -240 mmHg 190 mmHg 50 600 Yes Pt has a low bp uf still off [id number] 02/15/24 1047 400 mL/min 1000 ml/hr -260 mmHg 190 mmHg 50 600 Yes Pt stable rmvd 1488 02/15/24 1100 400 mL/min 1000 ml/hr -240 mmHg 190 mmHg 50 600 Yes Pt stable rm\vd 1488. Sleeping. 02/15/24 1115 400 mL/min 1000 ml/hr -250 mmHg 190 mmHg 50 600 Yes Pt stable rmvd 1488 02/15/24 1131 400 mL/min 990 ml/hr -250 mmHg 190 mmHg 50 600 Yes Pt stable rmvd 1488 Uf on sleeping 02/15/24 1145 -- -- -- -- -- -- -- Tx completed rmv 1700 Vital Signs Patient Vitals for the past 24 hrs: BP Temp Temp src Pulse Resp SpO2 Weight 02/15/24 1209 148/73 36.7 C (98 F) Temporal 84 16 99 % -- 02/15/24 1148 139/61 36.9 C (98.4 F) -- 81 -- -- -- 02/15/24 1145 (!) 96/35 -- -- 80 -- -- -- 02/15/24 1131 (!) 148/44 -- -- 78 -- -- -- 02/15/24 1115 139/66 -- -- 76 -- -- -- 02/15/24 1100 140/59 -- -- 76 -- -- -- 02/15/24 1047 118/67 -- -- 78 -- -- -- 02/15/24 1030 (!) 89/40 -- -- 81 -- -- -- 02/15/24 1017 92/50 -- -- 78 -- -- -- 02/15/24 1000 112/54 -- -- 75 -- -- -- 02/15/24 0945 129/55 -- -- 74 -- -- -- 02/15/24 0930 155/74 -- -- 72 -- -- -- 02/15/24 0915 (!) 169/39 -- -- 72 -- -- -- 02/15/24 0900 160/76 -- -- 72 -- -- -- 02/15/24 0847 (!) 161/67 -- -- 75 -- -- -- 02/15/24 0845 157/75 -- -- 75 -- -- -- 02/15/24 0840 159/99 37.7 C (99.9 F) -- 75 18 99 % -- 02/15/24 0737 140/66 36.7 C (98 F) Temporal 75 16 100 % -- 02/15/24 0337 143/60 36.9 C (98.5 F) Temporal 75 18 100 % 58.2 kg (128 lb 4.8 oz) 02/14/24 2317 138/68 37.4 C (99.4 F) Temporal 80 18 95 % -- 02/14/24 2030 137/60 37.6 C (99.7 F) Temporal 79 20 93 % -- 02/14/24 1527 130/63 37.6 C (99.7 F) Temporal 81 19 95 % -- Post-Dialysis Arterial Catheter Locking Solution: Heparin (1000units:1ml) Volume (ml): 1.9 Venous Catheter Locking Solution: Heparin (1000units:1ml) Volume (ml): 2.0 Post-Treatment Procedures: Blood returned, Catheter capped, clamped and heparinized x 2 ports Machine Disinfection Process: Exterior Machine Disinfection Rinseback Volume (mL): 300 mL Total Liters Processed (L/min): 64.4 L/min Dialyzer Clearance: Lightly streaked Hemodialysis Intake (ml): 900 ml Hemodialysis Output (ml): 1700 ml NET Removed (ml): 800 ml Tolerated Treatment: Fair Charge: $ IP Hemodialysis Charge: Hemodialysis Provider Notification Provider Notification Reason for Communication: Review case (pt needs blood sugar checks and lantus nightly, this is his home orders) Provider Name: Dr. atkins Provider Role: Hospitalist Method of Communication: Secure chat Response: Waiting for response Notification Time: 1918 Reason for Communication: Review case (pt needs blood sugar checks and lantus nightly, this is his home orders) Provider Role: Hospitalist Method of Communication: Secure chat Response: Waiting for response Notification Time: 1918 Handoff complete and report given to Primary RN at 1155. Primary RN (First Initial, Last Name, Title): Ceci Jackson. RN Education Person Educated: Patient Knowledge Base: Minimal Barriers to Learning?: None Preferred method of Learning: Oral Topic(s): call light, Access Care, Signs and Symptoms of Infection, and Fluid Management Teaching Tools: Demonstration Response to Education: Verbalized Understanding * Britney Marti RN - 02/14/2024 5:56 AM EDT Patient very agitated and upset, unable to redirect. 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 After redirecting for ~15 minutes, patient placed back into bed and seroquel was given. Patient now resting in bed with eyes closed. * Britney Marti RN - 02/12/2024 11:49 PM EDT Patient was getting out of bed, alarm going off. Patient with O2 off, placed patient back on O2, hethen become more lethargic, not verbally responding, but agitated, attempting to hit staff members.Paged Rapid response and Dr. Dang Rapid at bedside, ABG obtained. Dr. Dang to come see patient. Patient now more alert, answering question appropriately. 100% on 9L high flow. 0600: Paged Dr. Dang regarding patient status, still very lethargic, hard to stay awake, engaged inconvo. Patient is able to answer questions, but slow to respond or having to keep waking up. Dr. Dang to come evaluate. * Britney Marti RN - 02/12/2024 7:20 PM EDT Patient arrived to [facility] [address] from ER. Patient placed on tele monitor, vital signs obtained, patient reports increased SOB, and is having conversational dyspnea. Patient on 9L high flow, saturating at 95%. No further concerns on admit. * Chichi Meza - 02/12/2024 1:56 PM EDT Patient Name: Jose John Patient : 1945 Acct: [id number] Date of Admission: 02/12/2024 Room/Bed: Code Status: Full Code Allergies: Allergies Allergen Reactions Lisinopril Wheezing Penicillins Anaphylaxis Sulfa Antibiotics Anaphylaxis Levofloxacin Nausea Only Diagnosis: Patient Active Problem List Diagnosis Unstable angina ([facility]) ([facility]) Coronary artery disease Multi-vessel coronary artery stenosis Carotid artery bruit Carotid arterial disease ([facility]) NSTEMI (non-ST elevated myocardial infarction) ([facility]) CKD (chronic kidney disease) stage 4, GFR 15-29 ml/min ([facility]) Cardiomyopathy, ischemic S/P CABG (coronary artery bypass graft) Severe malnutrition ([facility]) ([facility]) Shortness of breath Pleural effusion Treatment: Hemodilaysis 2:1 Priority: Routine Location: Acute Room Diabetic: No NPO: No Isolation Precautions: Dialysis Consent for Treatment Verified: Yes Blood Consent Verified: Not Applicable ICEBOAT: Identify, Consent, Equipment, HepB Status, Orders Complete, Access Verified, Timeliness (o2 and wall suction bedside) Second Clinician Verifying: Victoriano Christy Time out performed prior to access at 1252. Report Received from Primary RN at 1100. Primary RN (First Initial, Last Name, Title): Sonia Guerra RN Incapacitated Nurse Education Completed: Chavez Christy RN HBsAg ONLY: Date Drawn: February 05, 2024 Results: Negative HBsAb: Date Drawn: February 05, 2024 Results: Unknown Order Dialyzer: Revaclear 300 Na+ Modeling: Not Applicable Dialysate Temperature (C): NA UF TX Blood Flow Rate (BFR): 300 Dialysate Flow Rate (DFR): SEQ - UF TX Access to be Utilized Access: Tunneled Catheter Location: Internal Jugular Side: Left Needle gauge: Not Applicable + Bruit/Thrill: Not Applicable First Use X-ray Verified: Yes OK to use line order: Yes Site Assessment: Signs and Symptoms of Infection/Inflammation: None If yes: Not Applicable Dressing: Dry and Intact Site Prep: Medical Aseptic Technique Dressing Changed this Treatment: Yes If yes, by whom: Linda MILLS Date of Last Dressing Change: February 06, [address]?: Yes Red Alcohol Caps in place?: Yes Gauze Dressing?: No Non-Dialysis Use?: No Comment: Flows: Lines Reversed and Good If access problem, who was notified: Pre and Post-Assessment Patient Vitals for the past 8 hrs: Level of Consciousness Oriented X Heart Rhythm Respiratory Pattern O2 Device Bilateral Breath Sounds Skin Color Skin Condition/Temp Abdomen Inspection Bowel Sounds (All Quadrants) Edema RLE Edema LLEEdema 02/12/24 1252 Alert (0) 3 Regular Tachypnea Nasal cannula Diminished Pale Warm;Dry;Swollen Soft Active Right lower extremity;Left lower extremity Non- pitting Non-pitting 02/12/24 1405 -- -- -- Tachypnea -- Diminished -- -- -- -- -- -- -- 02/12/24 1601 Alert (0) 3 Regular -- Nasal cannula Diminished Pale -- -- -- -- -- -- Labs Lab Results Component Value Date/Time WBC 7.2 02/12/2024 0234 HGB 9.3 (L) 02/12/2024 0234 HGB 9.6 12/04/2023 0012 HCT 29.8 (L) 02/12/2024 0234 PLT 184 02/12/2024 0234 NA 135 02/12/2024 0234 K 4.1 02/12/2024 0234 CL 99 02/12/2024 0234 CO2 28 02/12/2024 0234 BUN 30 (H) 02/12/2024 0234 CREATININE 3.89 (H) 02/12/2024 0234 CALCIUM 8.6 02/12/2024 0234 PHOS 4.0 02/06/2024 0610 IV Drips and Rate/Dose Safety - Before each treatment: Dialysis Machine No.: [id number] RO Machine Number: [id number] Dialyzer Lot No.: [id number] Tubing Lot Number: [id number] All Connections Secure: Yes Venous Parameters Set: Yes Arterial Parameters Set: Yes NS Bag: Yes Saline Line Double Clamped: Yes Dialyzer: Revaclear 300 Prime Volume (mL): 200 mL RO Machine Number: [id number] RO Machine Log Sheet Completed: Yes Machine Alarm Self Test: Completed, Passed (1335) (02/12/24 1243) Air Foam Detector: Tested, Proper Function, pH Reading Extracorporeal Circuit Tested for Integrity: Yes Machine Conductivity: 13.6 Manual Conductivity: 13.6 Manual Ph: 7 Bleach Test (Neg): Yes Conductivity Meter Serial #: [id number] Machine Functioning Alarm Free? Yes Dialysis Bath: Chlorine Testing - Before each treatment and every 4 hours: Time On: 1257 Time Off: 1557 Treatment Goal: 1-3L Weight Height: 177.8 cm (5' 10) (02/12/24202) Weight: 62.6 kg (138 lb) (02/12/24202) BMI (Calculated): 19.8 (02/12/24202) 1st check: less than 0.1 ppm at: 1145 2nd check: less than 0.1 ppm at: 1445 3rd check: Not Applicable (if greater than 0.1 ppm, then check every 30 minutes from secondary) Access Flows and Pressures Patient Vitals for the past 8 hrs: Blood Flow Rate (mL/min) Ultrafiltration Rate (ml/hr) Arterial Pressure (mmHg) Venous Pressure (mmHg) TMP DFR Access Visible Intra-Hemodialysis Comments 02/12/24 1257 200 mL/min 1170 ml/hr -20 mmHg 20 mmHg 10 0 Yes Tx initiated call light within reach 02/12/24 1300 300 mL/min 1170 ml/hr -70 mmHg 70 mmHg 10 0 Yes Bfr increased 02/12/24 1317 300 mL/min 1170 ml/hr -100 mmHg 90 mmHg 20 0 Yes Lines secure rmv 361 02/12/24 1330 300 mL/min 1170 ml/hr -100 mmHg 90 mmHg 20 0 Yes pt stable, uf removed is 652 02/12/24 1345 300 mL/min 1170 ml/hr -110 mmHg 100 mmHg 20 0 Yes Pt resting rmv 964 02/12/24 1400 300 mL/min 1170 ml/hr -110 mmHg 100 mmHg 20 0 Yes LInes secure mrv 1277 02/12/24 1415 300 mL/min 1170 ml/hr -120 mmHg 100 mmHg 20 0 Yes pt resting, uf removed is 1518 02/12/24 1430 300 mL/min 1170 ml/hr -120 mmHg 100 mmHg 20 0 Yes Pt stable rmv 1830 02/12/24 1445 300 mL/min 1170 ml/hr -120 mmHg 100 mmHg 20 0 Yes Pt stable rmv 2113 02/12/24 1500 300 mL/min 1170 ml/hr -130 mmHg 110 mmHg 30 0 Yes pt resting, uf removed is 2391 02/12/24 1515 300 mL/min 1170 ml/hr -130 mmHg 110 mmHg 30 0 Yes pt awake and stable. uf removed is 2685 02/12/24 1530 300 mL/min 1170 ml/hr -130 mmHg 120 mmHg 20 0 Yes pt stable, uf removed is 2981 02/12/24 1545 300 mL/min 1170 ml/hr -140 mmHg 110 mmHg 30 0 Yes pt watching tv, uf removed is 3265 02/12/24 1557 -- -- -- -- -- -- -- Tx completed rmv 3500 Vital Signs Patient Vitals for the past 24 hrs: BP Temp Pulse Resp SpO2 Height Weight 02/12/24 1558 122/83 36.7 C (98.1 F) 83 18 98 % -- -- 02/12/24 1557 113/69 -- 64 -- -- -- -- 02/12/24 1545 (!) 152/78 -- 66 -- -- -- -- 02/12/24 1530 138/63 -- 77 -- -- -- -- 02/12/24 1515 119/73 -- 87 -- -- -- -- 02/12/24 1500 (!) 148/66 -- 64 -- -- -- -- 02/12/24 1445 136/69 -- 65 -- -- -- -- 02/12/24 1430 (!) 141/70 -- 64 -- -- -- -- 02/12/24 1415 (!) 156/74 -- 65 -- -- -- -- 02/12/24 1400 (!) 148/106 -- 65 -- -- -- -- 02/12/24 1345 (!) 141/64 -- 65 -- -- -- -- 02/12/24 1330 (!) 154/69 -- 66 -- -- -- -- 02/12/24 1317 (!) 155/75 -- 67 -- -- -- -- 02/12/24 1300 (!) 177/80 -- 67 -- -- -- -- 02/12/24 1257 (!) 171/81 -- 68 -- -- -- -- 02/12/24 1252 (!) 146/70 37 C (98.6 F) 70 20 (!) 92 % -- -- 02/12/24 1233 -- -- 78 20 98 % -- -- 02/12/24 1230 (!) 154/74 -- 67 19 96 % -- -- 02/12/24 1028 138/56 -- 75 20 98 % -- -- 02/12/24 0852 108/51 -- 70 18 -- -- -- 02/12/24 0607 136/78 -- 69 17 99 % -- -- 02/12/24 0458 -- -- 78 20 99 % -- -- 02/12/24 0442 (!) 153/61 -- 69 20 98 % -- -- 02/12/24 0207 -- -- -- -- 100 % -- -- 02/12/24 0203 (!) 159/66 -- 77 21 (!) 80 % 1.778 m (5' 10) 62.6 kg (138 lb) Post-Dialysis Arterial Catheter Locking Solution: Heparin (1000units:1ml) Volume (ml): 1.9 Venous Catheter Locking Solution: Heparin (1000units:1ml) Volume (ml): 2.0 Post-Treatment Procedures: Blood returned, Catheter capped, clamped and heparinized x 2 ports Machine Disinfection Process: Acid/Vinegar Clean, Heat Disinfect, Exterior Machine Disinfection Rinseback Volume (mL): 300 mL Total Liters Processed (L/min): 0 L/min Dialyzer Clearance: Lightly streaked Hemodialysis Intake (ml): 500 ml Hemodialysis Output (ml): 3500 ml NET Removed (ml): 3000 ml Tolerated Treatment: Good Charge: $ IP Hemodialysis Charge: Ultrafiltration Provider Notification Handoff complete and report given to Primary RN at 1600. Primary RN (First Initial, Last Name, Title): Nilesh Guerrero RN Education Person Educated: Patient Knowledge Base: Substantial Barriers to Learning?: None Preferred method of Learning: Oral Topic(s): call light education, Access Care, Signs and Symptoms of Infection, and Fluid Management Teaching Tools: Explanation Response to Education: Verbalized Understanding documented in this [facility]07-23-2024 Hospital Discharge instructions* Discharge Instr - [facility]* Amanda Claudio RN - 02/26/2024 8:25 AM EDT Images from the original note were not included. 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 No Past Surgical History: History reviewed. No pertinent surgical history. Immunization History: There is no immunization history on file for this patient. Active Problems: Medical Problems Problem List * (Principal) Pleural effusion Unstable angina (CMS/HCC) ([facility]) Coronary artery disease Multi-vessel coronary artery stenosis Carotid artery bruit Carotid arterial disease ([facility]) NSTEMI (non-ST elevated myocardial infarction) ([facility]) CKD (chronic kidney disease) stage 4, GFR 15-29 ml/min (HCC) Cardiomyopathy, ischemic S/P CABG (coronary artery bypass graft) Severe malnutrition (CMS/HCC) ([facility]) Shortness of breath Isolation/Infection: No active isolations No active infections Nurse Assessment: Last Vital Signs: BP 146/64 (BP Location: Right arm, Patient Position: Lying) Pulse 82 Temp 36.7 C (98.1 F) (Temporal) Resp 18 Ht 5' 10 (1.778 m) Wt 133 lb 6.1 oz (60.5 kg) SpO2 99% BMI 19.14 kg/m Last documented pain score (0-10 scale): Last Weight: Wt Readings from Last 1 Encounters: 02/26/24 133 lb 6.1 oz (60.5 kg) Mental Status: {[facility] Patient Mental Status:68664} IV Access: {[facility] IV Access:42952} Nursing Mobility/ADLs: Walking {DEXTER ADL:::Independent} Transfer {DEXTER ADL:05632::Independent} Bathing {DEXTER ADL:::Independent} Dressing {DEXTER ADL:::Independent} Toileting {DEXTER ADL:::Independent} Feeding {DEXTER ADL:::Independent} 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 {DEXTER ADL:::Independent} Med Delivery {yes/no:31433} Wound Care Documentation and Therapy: Wound/Incision 12/12/23 Pressure Injury Achilles Right (Active) Site Assessment Clean;Dry 02/22/24 0800 Elana-Wound Assessment Clean;Dry 02/15/24 0404 Odor None 02/22/24 0800 Drainage Amount None 02/22/24 0800 Primary Dressing Open to air 02/22/24 0800 Number of days: 75 Wound/Incision 01/23/24 Incision Abdomen Upper;Midline (Active) Site Assessment Unable to assess 02/21/24 0850 Elana-Wound Assessment Irwin;Dry 02/24/24 1817 Wound Length (cm) 2 cm 02/13/24 1815 Wound Width (cm) 1.5 cm 02/13/24 181 Wound Surface Area (cm^2) 3 cm^2 02/13/24 1815 Wound Depth (cm) 1 cm 02/13/24 181 Wound Volume (cm^3) 3 cm^3 02/13/24 1815 Drainage Description Clear 02/24/24 1817 Odor None 02/24/24 1817 Drainage Amount Scant 02/24/24 1817 Treatments Cleansed;Pharmaceutical agent 02/24/24 1817 Primary Dressing Foam 02/17/24 1506 Dressing Status New dressing 02/24/24 1817 Number of days: 33 Elimination: Continence: Bowel: {yes/no:92284} Bladder: {yes/no:15747} Urinary Catheter: {[facility] Urinary Catheter:63376} Colostomy/Ileostomy/Ileal Conduit: {YES / NO:} Date of Last BM: Intake/Output Summary (Last 24 hours) at 02/26/2024 0825 Last data filed at 02/26/2024 0445 Gross per 24 hour Intake 940 ml Output 100 ml Net 840 ml I/O last 3 completed shifts: In: 1190 (19.7 mL/kg) [P.O.:890; I.V.:300 (5 mL/kg)] Out: 300 (5 mL/kg) [Urine:300 (0.1 mL/kg/hr)] Weight: 60.5 kg Safety Concerns: {[facility] Safety Concerns:12789} Impairments/Disabilities: {[facility] Impairments/Disabilities:85672} Nutrition Therapy: Current Nutrition Therapy: {[facility] Diet List:81427} Routes of Feeding: {routes of feedin} Liquids: {liquid consistency:83440} Daily Fluid Restriction: {daily fluid restriction:53739} Last Modified Barium Swallow with Video (Video Swallowing Test): {done not done:56959} Treatments at the Time of Hospital Discharge: Respiratory Treatments: Oxygen Therapy: {Therapy; copd oxygen:03078} Ventilator: {[facility] Ventilator:87904} Rehab Therapies: {GEN THERAPY DISCIPLINE SCAL:8811533} Weight Bearing Status/Restrictions: {POD WEIGHT BEARIN} Other Medical Equipment (for information only, NOT a DME order): {Assistive Devices DME:94913} Other Treatments: Patient's personal belongings (please select all that are sent with patient): {[facility] Patient Belongings:57608} RN SIGNATURE: {E-signature:07188} CASE MANAGEMENT/SOCIAL WORK SECTION Inpatient Status Date: Discharging to Facility/ Agency Name: Address: Phone: Fax: [facility] Address: [address] [place] [address] Dialysis Facility (if applicable) Name: Address: Dialysis Schedule: Phone: Fax: Coffee Grinder/Street Superintendent signature: {E-signature:89952} PHYSICIAN SECTION Name: Jose John Prognosis: good Condition at Discharge: stable Rehab Potential (if transferring to Rehab): good Recommended Labs or Other Treatments After Discharge: The individual is being admitted to a nursing facility directly from an [facility] or a unit of a hospital that is not operated by or licensed by [facility] under section 5119.14 or 5160-3-15.1 5 The individual requires the level of services provided by a nursing facility for the condition for which he or she was treated in the hospital and, Physician Certification: I certify the above information and transfer of Jose John is necessary for the continuing treatment of the diagnosis listed and that he requires long term facility for less than 30 days. Update Admission H&P: No change in H&P PHYSICIAN SIGNATURE: documented in this [facility]07-11-2024 Consult note* Dora Madden, MANAGER OF PROJECT MANAGEMENT - INTEGRATION ENGINEER - 02/14/2024 1:03 PM EDTAssociated Order(s): IP CONSULT TO CARDIOTHORACIC SURGERY Images from the original note were not included. [facility]: Cardiothoracic Surgery Consultation Note PATIENT NAME: Jose John : 1945 (78 y.o.) TODAY'S DATE: 02/14/2024 DATE OF ADMISSION: 02/12/2024 1:58 AM Reason for Consult: distal MSI wound Consulting Provider: Dr. Zheng Subjective: CC: SOB/hypoxia HPI: 78 yo male with PMH of T2DM, HTN, CKD, TIA with no residual (approx 16 years ago), tobacco use(quit 20 years ago), macular degeneration, back surgery, and BPH. He is well known to our service, had a CABG x4 with Dr. Carlin on 11/21/23. His postop course was prolonged r/t ZOFIA on CKD requiring dialysis, respiratory failure 2/2 aspiration PNA, ICU delirium, and multiple thoracentesis r/t volumeoverload. He was discharged to [facility] on POD #34, [facility] He was readmitted from 01/22/24-01/30/24 with SOB and bilateral pleural effusions. Had multiple thoracentesis and completed course of abx for pneumonia. CTS was consulted at that time for small dehiscence of distal MSI, r ecommended wet-to-dry dressing changes. He was discharged to [facility]. He returned to [facility] ED from [facility] on02/12/24 with hypoxia, he was saturating 80% on 3L NC. CXR showed pleural effusions and pulmonary congestion. He received extra UF on 02/11 with 3L removed. CTS consulted for distal MSI wound. Review of Systems Constitutional: Positive for activity change and fatigue. Negative for appetite change, diaphoresis, fever and unexpected weight change. Eyes: Negative for visual disturbance. Respiratory: Positive for shortness of breath. Negative for cough, chest tightness and wheezing. Cardiovascular: Negative for chest pain and leg swelling. Gastrointestinal: Negative for abdominal distention, abdominal pain, diarrhea, nausea and vomiting. Musculoskeletal: Positive for back pain (chronic). Negative for gait problem. Skin: Positive for wound (distal MSI). Psychiatric/Behavioral: Positive for confusion (intermittent confusion, currently oriented). Allergies: Lisinopril, Penicillins, Sulfa antibiotics, and Levofloxacin Past Medical History: has no past medical history on file. Past Surgical History: has no past surgical history on file. Social History: reports that he has quit smoking. His smoking use included cigarettes. He has never used smokeless tobacco. He reports that he does not currently use alcohol. Family History: family history is not on file. Medications: Prior to Admission medications Medication Sig Start Date End Date Taking? Authorizing Provider acetaminophen (Tylenol) 325 MG tablet Take 650 mg by mouth every 6 hours as needed for mild pain (1-3). Historical Provider, amiodarone (Pacerone) 200 MG tablet Take 1 tablet (200 mg) by mouth daily. 12/25/23 12/24/24 MALINA Downing CNP aspirin 81 MG chewable tablet Chew 1 tablet (81 mg) daily. 12/26/23 12/25/24 MALINA Downing CNP atorvastatin (Lipitor) 80 MG tablet Take 1 tablet (80 mg) by mouth daily. 12/25/23 12/24/24 MALINA Downing CNP carvedilol (Coreg) 3.125 MG tablet Take 3.125 mg by mouth in the morning and 3.125 mg in the evening. Take with meals. Historical Provider, gabapentin (Neurontin) 100 MG capsule Take 1 capsule (100 mg) by mouth 2 times daily. 12/25/23 12/24/24 MALINA Downing CNP glucose (Glutose) 40 % gel oral gel Take 15 g by mouth as needed for low blood sugar. Hypoglycemia Historical Provider, insulin glargine (Lantus) 100 UNIT/ML injection Inject 7 Units under the skin Nightly. Historical Provider, ipratropium-albuterol (Duo-Neb) 0.5-2.5 mg/3 mL nebulizer solution Take 3 mL by nebulization 3 times daily as needed for wheezing or shortness of breath. Patient taking differently: Take 3 mL by nebulization every 6 hours as needed for wheezing or shortness of breath. 12/25/23 12/24/24 MALINA Downing CNP Melatonin 3 MG capsule Take 6 mg by mouth Nightly. Historical Provider, midodrine (Proamatine) 2.5 MG tablet Take 2.5 mg by mouth 3 times daily as needed. Prior to OT/PT Hold for SBP >120 Historical Provider, mirtazapine (Remeron) 15 MG tablet Take 15 mg by mouth Nightly. Historical Provider, pantoprazole (ProtoNix) 40 MG EC tablet Take 40 mg by mouth every morning (before breakfast). Do not crush, chew, or split. Historical Provider, polyethylene glycol, PEG, 3350 (Miralax) 17 g packet Take 17 g by mouth daily. Historical Provider, QUEtiapine (SEROquel) 25 MG tablet Take 0.5 tablets (12.5 mg) by mouth every 8 hours as needed (Confusion, agitation). 01/30/24 02/29/24 Nazanin Smith MD sevelamer carbonate (Renvela) 800 MG tablet Take 800 mg by mouth in the morning and 800 mg at noon and 800 mg in the evening. Take with meals. Swallow tablet whole; do not crush, break, or chew.. Historical Provider, tiotropium (Spiriva Respimat) 2.5 MCG/ACT inhaler Inhale 2 puffs daily. 01/31/24 01/30/25 Nazanin Smith MD linaGLIPtin (Tradjenta) 5 MG tablet test 02/06/24 02/06/24 Objective: Vitals: BP: 121/55, MAP (mmHg): 77, BP Method: Automatic Heart Rate: 74 Resp: 19 Temp: 37.7 C (99.8 F), Temp Source: Temporal BMI (Calculated): 18.55 Last BM Date: 02/11/24 (per pt) Intake/Output Summary (Last 24 hours) at 02/14/2024 1303 Last data filed at 02/14/2024 0602 Gross per 24 hour Intake 650 ml Output -- Net 650 ml Physical Exam Constitutional: General: He is awake. Comments: 9L HFNC Cardiovascular: Rate and Rhythm: Normal rate and regular rhythm. Heart sounds: Normal heart sounds. No murmur heard. No friction rub. Pulmonary: Effort: Pulmonary effort is normal. Breath sounds: Decreased breath sounds present. No wheezing or rhonchi. Abdominal: General: Bowel sounds are normal. There is no distension. Palpations: Abdomen is soft. Tenderness: There is no abdominal tenderness. Musculoskeletal: Right lower leg: No edema. Left lower leg: No edema. Skin: General: Skin is warm and dry. Capillary Refill: Capillary refill takes less than 2 seconds. Findings: Bruising and ecchymosis present. Comments: Distal MSI open with slough tissue covering wound bed- see wound care picture in chart Neurological: Mental Status: He is alert and oriented to person, place, and time. Psychiatric: Attention and Perception: Attention normal. Mood and Affect: Mood normal. Behavior: Behavior is cooperative. Diagnostics: Reviewed in EMR Labs: Reviewed in EMR BMP: Recent Labs 02/12/24 0234 02/13/24 0023 02/14/24 0315 NA 135 135 136 K 4.1 4.1 4.4 CL 99 103 102 CO2 28 25 28 BUN 30* 38* 24* CREATININE 3.89* 4.45* 3.63* CALCIUM 8.6 8.1* 8.6 CBC: Recent Labs 02/12/24 0234 02/13/24 0001 02/13/24 1020 WBC 7.2 -- -- HGB 9.3* 9.3 9.1 HCT 29.8* -- -- PLT 184 -- -- MCV 94.6 -- -- RDW 16.8* -- -- Assessment/ Plan: Dehiscence of distal MSI - Wound care following, recommend santyl to wound bed and lightly pack with mesalt - Will order CT Chest to ensure no infection Multivessel CAD s/p CABG - Continue ASA, Statin, & BB HFrEF (EF 35%) Volume overload - Recommend Echo to reassess EF now that he is 3m s/p CABG - If EF is still reduced consider consulting HF service (previously followed patient) for GDMT recommendations ESRD - Nephrology following - MWF HD - Additional UF as needed for volume overload Bilateral pleural effusions - consider thoracentesis A total of 60 minutes were spent between the [id number] encounter, physical exam, reviewing the medical history, coordinating the patient's care, counseling/educating the patient, ordering medications/test/procedures, interpreting results and documenting clinical information in the patients electr on health record on the day of the encounter. The patient was seen and examined independently andrelevant data reviewed by myself. A full chart review was performed. Associated attestation - Teodoro Camacho MD - 02/15/2024 1:27 PM EDT I independently saw and evaluated the patient - including reviewing the labs, imaging studies, and available documentation. I agree with the findings and plan of care as documented by the resident/ACIDIZER HELPER/APPLICATION DBA/PA, unless otherwise noted. Dos 02/14 Please do not hesitate to contact me/us if you have any questions or concerns. Teodoro Camacho MD FACS * Chyna MALINA Masterson CNP - 02/14/2024 7:55 AM EDTAssociated Order(s): IP WOUND CARE NURSE CONSULT TO EVAL Images from the original note were not included. [facility] Wound Care CONSULT Note Jose John AGE: 78 y.o. GENDER: male : 1945 Subjective: HISTORY of PRESENT ILLNESS HPI Jose John is a 78 y.o. male who presents for a wound consult. HPI: Patient with past medical history of CAD, DM, HTN and ESRD on HD who presented to ED for respiratory failure. Patient had been seen by rehab when staff noted there that he was hypoxic. Patient does not typically use any home O2. Wound Care consulted for CABG Wound. Treatment applied per wound care service. PAST MEDICAL HISTORY History reviewed. No pertinent past medical history. PAST SURGICAL HISTORY History reviewed. No pertinent surgical history. FAMILY HISTORY No family history on file. SOCIAL HISTORY Social History Tobacco Use Smoking status: Former Types: Cigarettes Smokeless tobacco: Never Substance Use Topics Alcohol use: Not Currently ALLERGIES Allergies Allergen Reactions Lisinopril Wheezing Penicillins Anaphylaxis Sulfa Antibiotics Anaphylaxis Levofloxacin Nausea Only MEDICATIONS No current facility-administered medications on file prior to encounter. Current Outpatient Medications on File Prior to Encounter Medication Sig Dispense Refill acetaminophen (Tylenol) 325 MG tablet Take 650 mg by mouth every 6 hours as needed for mild pain (1-3). amiodarone (Pacerone) 200 MG tablet Take 1 tablet (200 mg) by mouth daily. 0 aspirin 81 MG chewable tablet Chew 1 tablet (81 mg) daily. 0 atorvastatin (Lipitor) 80 MG tablet Take 1 tablet (80 mg) by mouth daily. 0 carvedilol (Coreg) 3.125 MG tablet Take 3.125 mg by mouth in the morning and 3.125 mg in the evening. Take with meals. gabapentin (Neurontin) 100 MG capsule Take 1 capsule (100 mg) by mouth 2 times daily. 0 glucose (Glutose) 40 % gel oral gel Take 15 g by mouth as needed for low blood sugar. Hypoglycemia insulin glargine (Lantus) 100 UNIT/ML injection Inject 7 Units under the skin Nightly. ipratropium-albuterol (Duo-Neb) 0.5-2.5 mg/3 mL nebulizer solution Take 3 mL by nebulization 3 times daily as needed for wheezing or shortness of breath. (Patient taking differently: Take 3 mL by nebulization every 6 hours as needed for wheezing or shortness of breath.) 0 Melatonin 3 MG capsule Take 6 mg by mouth Nightly. midodrine (Proamatine) 2.5 MG tablet Take 2.5 mg by mouth 3 times daily as needed. Prior to OT/PT Hold for SBP >120 mirtazapine (Remeron) 15 MG tablet Take 15 mg by mouth Nightly. pantoprazole (ProtoNix) 40 MG EC tablet Take 40 mg by mouth every morning (before breakfast). Do not crush, chew, or split. polyethylene glycol, PEG, 3350 (Miralax) 17 g packet Take 17 g by mouth daily. QUEtiapine (SEROquel) 25 MG tablet Take 0.5 tablets (12.5 mg) by mouth every 8 hours as needed (Confusion, agitation). 1 tablet 0 sevelamer carbonate (Renvela) 800 MG tablet Take 800 mg by mouth in the morning and 800 mg at noon and 800 mg in the evening. Take with meals. Swallow tablet whole; do not crush, break, or chew.. tiotropium (Spiriva Respimat) 2.5 MCG/ACT inhaler Inhale 2 puffs daily. 1 each 11 [DISCONTINUED] linaGLIPtin (Tradjenta) 5 MG tablet test 30 tablet 0 REVIEW OF SYSTEMS Pertinent items are noted in HPI. Objective: BP 105/59 (BP Location: Right arm, Patient Position: Lying) Pulse 78 Temp 37.4 C (99.3 F) (Temporal) Resp 18 Ht 1.778 m (5' 10) Wt 58.7 kg (129 lb 4.8 oz) SpO2 96% BMI 18.55 kg/m PHYSICAL EXAM General appearance: in no apparent distress Skin: warm and dry Pulmonary: Normal effort, no respiratory distress, no cyanosis Abdomen: soft, nontender, and nondistended Sternum 3x 2x utd cm. Wound bed with pink tissue and yellow slough. Moderate amount of serous drainage. Elana-wound intact and fragile. LABS CBC: Lab Results Component Value Date WBC 7.2 02/12/2024 HGB 9.1 02/13/2024 HCT 29.8 (L) 02/12/2024 MCV 94.6 02/12/2024 PLT 184 02/12/2024 BMP: Lab Results Component Value Date NA 136 02/14/2024 K 4.4 02/14/2024 CL 102 02/14/2024 CO2 28 02/14/2024 BUN 24 (H) 02/14/2024 CREATININE 3.63 (H) 02/14/2024 PT/INR: No results found for: PROTIME, INR Prealbumin: No results found for: PREALBUMIN Albumin:No components found for: LABALBU Sed Rate:No results found for: SEDRATE Micro: No components found for: BC Assessment/Plan: Sternum NHSW (dehiscence) - Cleanse with NS, apply Santyl to wound bed, lightly pack with mesalt. Cover with foam dressing. Change Daily and PRN Nutritional support Wound Care to follow Recommend to follow up at [facility] after hospital discharge. Any questions or concerns please secure chat [facility] wound/ostomy. Thank you for the consult! I personally obtained the alexandre and critical portions of the history and physical exam. I reviewed the labs, imaging studies, and electronic medical record. I reviewed the chart documentation and discussed the patient with treatment team members. I have edited the note to reflect my clinical findingsand my assessment and plan. Please note, the time of this note does not reflect the time I saw thispatient today, but the time of this documentaton. Portions of this note including HPI, ROS, impression/plan, and examination may have been copied forward from admission to today as to provide important historical information essential in contributing to medical decision making. Documentation has been reviewed and edited as necessary to support clinical decision making for today's visit and to reflect my own independent evaluation of this patient. Decision making for today's visit and to reflectmy own independent evaluation of this patient. * Alicia Dean MD - 02/13/2024 6:43 PM EDTAssociated Order(s): INPATIENT CONSULT TO CRITICAL CARE - MEDICAL TEAM Images from the original note were not included. Internal Medicine: MICU Initial Consult Name: Jose John : 1945(78 y.o.) Date: 02/13/24 Attending: Dr. Wally Chávez DO Subjective: Chief Complaint: shortness of breath HPI: Jose is a 78-year-old man with a past medical history of CAD status post CABG, type 2 diabetes, essential hypertension, end-stage renal disease on hemodialysis ([facility]) who presented to the emergency room on 02/12/2024 for chief complaint of shortness of breath. Patient was at rehab and staff there noted that he was hypoxic. Patient is not on any home oxygen. [facility] for hemod[facility]. Patient got out of bed on 02 11found to be more lethargic and agitated, rapid response a physician paged. ABG was obtained showinghypoxia but patient continuously pulling off high flow nasal cannula. Chest x-ray showing bilateralpleural effusions, right greater than left. ICU was consulted in the morning. On our examination, patient is not wearing his high flow nasal cannula. He is seen unaccompanied atbedside. However, after placing high flow nasal cannula at 9 L back on his face, he was completely alert andoriented to self, location, and time. He is able to tell me how many liters they took off at his last dialysis session as well as the last time he had dialysis. He tells me his past medical history including his history of CABG. He states that he is tired because he did not sleep well but he is otherwise doing okay. He denies any pain on examination. History reviewed. No pertinent past medical history. History reviewed. No pertinent surgical history. No family history on file. Social History Socioeconomic History Marital status: Spouse name: Not on file Number of children: Not on file Years of education: Not on file Highest education level: Not on file Occupational History Not on file Tobacco Use Smoking status: Former Types: Cigarettes Smokeless tobacco: Never Substance and Sexual Activity Alcohol use: Not Currently Drug use: Not on file Sexual activity: Not on file Other Topics Concern Not on file Social History Narrative Not on file Social Determinants of Health Financial Resource Strain: Low Risk (01/11/2024) Received from [facility] Overall Financial Resource Strain (CARDIA) Difficulty of Paying Living Expenses: Not hard at all Food Insecurity: No Food Insecurity (02/12/2024) Hunger Vital Sign Worried About Running Out of Food in the Last Year: Never true Ran Out of Food in the Last Year: Never true Transportation Needs: No Transportation Needs (02/12/2024) PRAPARE - Transportation Lack of Transportation (Medical): No Lack of Transportation (Non-Medical): No Physical Activity: Not on file Stress: No Stress Concern Present (01/11/2024) Received from [facility] [place] [facility] Occupational [facility] - Occupational Stress Questionnaire Feeling of Stress : Only a little Social Connections: Socially Integrated (01/11/2024) Received from [facility] Social Connection and Isolation Panel [NHANES] Frequency of Communication with Friends and Family: Three times a week Frequency of Social Gatherings with Friends and Family: Once a week Attends Temple Services: More than 4 times per year Active Member of Clubs or Organizations: Yes Attends Club or Organization Meetings: 1 to 4 times per year Marital Status: Intimate Partner Violence: Not At Risk (02/12/2024) Humiliation, Afraid, Rape, and Kick questionnaire Fear of Current or Ex-Partner: No Emotionally Abused: No Physically Abused: No Sexually Abused: No Housing Stability: Unknown (02/12/2024) Housing Stability Vital Sign Unable to Pay for Housing in the Last Year: No Number of Times Moved in the Last Year: Not on file Homeless in the Last Year: No Allergies Allergen Reactions Lisinopril Wheezing Penicillins Anaphylaxis Sulfa Antibiotics Anaphylaxis Levofloxacin Nausea Only Prior to Admission medications Medication Sig Start Date End Date Taking? Authorizing Provider acetaminophen (Tylenol) 325 MG tablet Take 650 mg by mouth every 6 hours as needed for mild pain (1-3). Historical Provider, amiodarone (Pacerone) 200 MG tablet Take 1 tablet (200 mg) by mouth daily. 12/25/23 12/24/24 MALINA Downing CNP aspirin 81 MG chewable tablet Chew 1 tablet (81 mg) daily. 12/26/23 12/25/24 MALINA Downing CNP atorvastatin (Lipitor) 80 MG tablet Take 1 tablet (80 mg) by mouth daily. 12/25/23 12/24/24 MALINA Downing CNP carvedilol (Coreg) 3.125 MG tablet Take 3.125 mg by mouth in the morning and 3.125 mg in the evening. Take with meals. Historical Provider, gabapentin (Neurontin) 100 MG capsule Take 1 capsule (100 mg) by mouth 2 times daily. 12/25/23 12/24/24 MALINA Downing CNP glucose (Glutose) 40 % gel oral gel Take 15 g by mouth as needed for low blood sugar. Hypoglycemia Historical Provider, ipratropium-albuterol (Duo-Neb) 0.5-2.5 mg/3 mL nebulizer solution Take 3 mL by nebulization 3 times daily as needed for wheezing or shortness of breath. Patient taking differently: Take 3 mL by nebulization every 6 hours as needed for wheezing or shortness of breath. 12/25/23 12/24/24 Anson Latif APRN - [facility] Melatonin 3 MG capsule Take 6 mg by mouth Nightly. Historical Provider, midodrine (Proamatine) 2.5 MG tablet Take 2.5 mg by mouth 3 times daily as needed. Prior to OT/PT Hold for SBP >120 Historical Provider, mirtazapine (Remeron) 15 MG tablet Take 15 mg by mouth Nightly. Historical Provider, pantoprazole (ProtoNix) 40 MG EC tablet Take 40 mg by mouth every morning (before breakfast). Do not crush, chew, or split. Historical Provider, polyethylene glycol, PEG, 3350 (Miralax) 17 g packet Take 17 g by mouth daily. Historical Provider, QUEtiapine (SEROquel) 25 MG tablet Take 0.5 tablets (12.5 mg) by mouth every 8 hours as needed (Confusion, agitation). 01/30/24 02/29/24 Nazanin Smith MD sevelamer carbonate (Renvela) 800 MG tablet Take 800 mg by mouth in the morning and 800 mg at noon and 800 mg in the evening. Take with meals. Swallow tablet whole; do not crush, break, or chew.. Historical Provider, tiotropium (Spiriva Respimat) 2.5 MCG/ACT inhaler Inhale 2 puffs daily. 01/31/24 01/30/25 Nazanin Smith MD linaGLIPtin (Tradjenta) 5 MG tablet test 02/06/24 02/06/24 Objective: Oxygen Delivery: O2 Flow Rate (L/min): 9 L/min VITALS: BP 104/55 (BP Location: Right arm, Patient Position: Lying) Pulse 69 Temp 37.1 C (98.8 F) (Temporal) Resp 18 Ht 1.778 m (5' 10) Wt 61.3 kg (135 lb 3.2 oz) SpO2 96% BMI 19.40 kg/m CURRENT PULSE OXIMETRY: SpO2: 96 % Review of Systems Constitutional: Negative for chills, fatigue and fever. Respiratory: Positive for shortness of breath. Cardiovascular: Negative for chest pain, palpitations and leg swelling. Gastrointestinal: Negative for abdominal pain. Genitourinary: Negative for difficulty urinating. Neurological: Negative for dizziness, light-headedness and headaches. Constitutional: General Appearance []WDWN []Obese []Cachectic []Thin [x]Ill Eyes: Inspection of Pupils/Irises Pupils round and react: [x]Yes []No Sclera: []Icteric [x]Non-Icteric Inspection of Conjunctiva/Lids Conjunctiva: []Injected [x]Non-Injected Lids: [x]Intact []Lesion Present ENT/Mouth: External Inspection of ears/nose [x] Normal [] Scar/Lesion/Mass Inspection of teeth/lips/gums Dentition: []Elem Teeth []Dentures Lips/Gums: []Intact []Lesion Present Mucosa: []Irwin []Moist []Dry Neck: External Appearance Overall Appearance: [x]Normal []Lesion/Mass/Crepitus Present Trachea midline: []Yes []No Thyroid []Normal []Enlarged []Tender []Mass []Absent Respiratory: Respiratory effort []Labored [x]Non-Labored [] Mechanically-Ventilated Auscultation []Clear [x]Crackles []Wheezes []Rhonchi Cardiovascular: Auscultation Rate: [x]Regular []Irregular []Tachycardia []Bradycardia Rhythm: []Regular []Irregular Murmur: [x]Present []Absent Extremities Peripheral Edema: []Present [x]Absent Varicosities: []Present [x]Absent Gastrointestinal: Abdomen Palpation: [x]Soft []Firm []Tender [x]Non-Tender []Distended [x]Non-distended Mass: []Present [x]Absent Bowel Sounds: []Present [x]Absent Hernia: []Present [x]Absent Liver/Spleen: []Hepatosplenomegaly []Organomegaly Absent Musculoskeletal: Inspection of Digits and Nails Cyanosis: []Present [x]Absent Clubbing: []Present [x]Absent Ischemia: []Present [x]Absent Infection: []Present [x]Absent Extremities GUTIERREZ Equally: Except ([]RUE []RLE []LUE []LLE) Strength/Tone: Intact and Normal ([x]RUE [x]RLE [x]LUE [x]LLE) Skin: Inspection [x]Normal []Rash []Lesion []Ulcer Palpation [x]Warm []Cool []Dry []Clammy []Nodules []Induration []Skin-tightening Cap-Refill: [x] <3 sec [] >3 seconds (delayed) Neurologic: GCS EYE: 4 - Opens spontaneously GCS MOTOR: 6 - Obeys commands for movement GCS VERBAL: 5 - Oriented to person, place, time Total GCS: 15 [x] Sensation grossly intact Psych: Mental Status Alert: [x]Yes [] No Oriented: []x0 []X1 []X2 [x]x3 Mood/Affect [x]Normal []Flat []Agitated []Depressed []Anxious []Calm []Sedated [x]NAD Select Labs within last 24 hours- BMP: Recent Labs 02/12/2423302/13/2422 NA 135 135 K 4.1 4.1 CL 99 103 CO2 28 25 BUN 30* 38* CREATININE 3.89* 4.45* CALCIUM 8.6 8.1* LFTs: Recent Labs 02/12/24233 AST 31 ALT 32 PROT 6.4 ALBUMIN 3.4* BILITOT 0.5 ALKPHOS 84 Glucose: Recent Labs 02/12/2423302/12/24 2336 02/13/24 0023 02/13/24 1747 GLUCOSE 156* -- 188* -- POCGLU -- 217* -- 104* Procal: No results for input(s): PROCAL in the last 72 hours. CBC: Recent Labs 02/12/2423302/13/24 0001 02/13/24 1020 WBC 7.2 -- -- HGB 9.3* 9.3 9.1 HCT 29.8* -- -- PLT 184 -- -- MCV 94.6 -- -- RDW 16.8* -- -- ABGs: Recent Labs 02/13/24 0001 02/13/24 1020 PHART 7.324* 7.297* SMF6YSD 53.7* 57.1* PO2ART 50.5* 122.2* EIB5HPA 27.3* 27.3* [id number] High flow nasal cannula High flow nasal cannula Lactic Acid: No results for input(s): LACTATE in the last 72 hours. INR: No results for input(s): INR in the last 72 hours. Cardiac Injury Profile: Recent Labs 02/12/24 0234 02/12/24 0638 02/12/24 0858 TROPONINI 0.020 0.024 0.023 Labs in Last 3 months: Lab Results Component Value Date TSH 1.786 11/15/2023 VITD25 16 (L) 11/16/2023 INR 1.2 (H) 12/22/2023 Microbiology- Urine Cx: No results found for: URINECX Blood Cx: Lab Results Component Value Date BLOODCX No growth at 5 days 01/23/2024 BLOODCX No growth at 5 days 01/23/2024 Sputum Cx: Lab Results Component Value Date RESPCULT Rare respiratory carol present. 12/02/2023 RESPCULT Few Tiffanie albicans (A) 12/02/2023 Gram Stain: Lab Results Component Value Date LABGRAM 01/25/2024 Rare Polymorphonuclear leukocytes per low power field LABGRAM No organisms seen 01/25/2024 PNA PCR: Lab Results Component Value Date HUMANMETAPNE Not Detected 02/07/2024 COVID19: No results found for: COVID19 Legionella Ag: Lab Results Component Value Date LEGIONELLAPN Not Detected 11/25/2023 Strep Ag: No results for input(s): STREPPNEUMO in the last 72 hours. Imaging- abnormal CXR showing signs of volume overload with pulmonary edema / pleural effusions Assessment and Plan: Principal Problem: Pleural effusion Hospital course to date: 78 year old M with a relevant past medical history of CABG, ESRD on HD who presented to [facility] ED on 02/12/24 with a chief complaint of SOB. Found to be volume overloaded. Having some issues with confusion and taking off his nasal cannula. M-ICU consulted for low oxygen. Acute Conditions: Acute hypoxemic respiratory failure requiring high flow nasal cannula, not on home O2 Bilateral pleural effusions Volume overload Recommended repeat ABG and patient undergo ultrasound-guided thoracentesis as well as dialysis session today Otherwise, patient stable to stay on the floor for now, maintaining oxygen saturation on HFNC 9L, recommending continuous O2 monitoring Has underwent multiple ultrasound guided thoracentesis in the past (last one 01/24/24, 01/25/24) Chronic Conditions: CAD status post CABG (11/2023 [place]) End-stage renal disease on hemodialysis Sunday ([facility]) Metabolic syndrome Type 2 diabetes w/ hyperglycemia Essential hypertension Mixed hyperlipidemia Normocytic anemia without evidence of bleeding Congestive heart failure with reduced ejection fraction (TTE 11/25/2023 EF 35%) secondary to ischemic cardiomyopathy History of cholecystectomy History of ICU delirium Disposition: remain on GMF Associated attestation - Wally Chávez DO - 02/13/2024 8:07 PM EDT I have personally performed a sney-ct-nocu diagnostic evaluation on this patient on date of /10/24. History, labs, imaging studies, and electronic medical record have been reviewed by me. This note documented by the []Critical Care Fellow []bathhouse attendant []ALEJANDRO reflects my history, exam, and medical decision making. I have reviewed and agree with the care plan. Changes were made in the orders as necessary. ROS documentation was reviewed and negative unless otherwise stated in HPI. Additional pertinent interval history, ROS, and physical exam findings: AdmitDate = 02/12/2024 LOS: 1 MICU consult for confusion and hypoxemia. Assessment: Acute hypoxemic respir failure ESRD Pleural effusion CAD s/p CABG this year. Plan: Upon my evaluation the pt's oxygen is normal on salter at 9L Pt is awake and answering questions appropriate and is able to recount his recent medical history although his mentation is slowed and speech is quuiet and breathy. It is appropriate to have IR attempt thora today (R>L) to see if this helps his respir status. Also agree with ongoing UF plan per nephrology. Maintain use of salter for O2 support and wean to maintain SpO2 88-94%. Recheck ABG. For now the pt may remain on the GMF. Remainder of plan per resident note. Total critical care time for this patient with life-threatening unstable organ failure, including direct patient contact, management of life support systems, review of data including imaging and labs, and discussions with other team members and physicians at least 35min so far today, excluding procedures. * Matt Quinn MD - 02/12/2024 10:13 AM EDTAssociated Order(s): IP CONSULT TO NEPHROLOGY [facility] [id number] [place] [address] Consult Note Patient's Name: Jose John 10:20 AM 02/12/2024 History of Present Ilness: Jose John is a 78 y.o. male with hx including CAD, DM, HTN who presented from [facility] with respiratory failure. Has been on MWF iHD, had HD yesterday. HD was initiated back in 11/2023. CXR was with pleural effusions and pulm vasc congestion. No past medical history on file. No past surgical history on file. No family history on file. reports that he has never smoked. He has never used smokeless tobacco. Allergies: Lisinopril, Penicillins, Sulfa antibiotics, and Levofloxacin Medications: No current facility-administered medications on file prior to encounter. Current Outpatient Medications on File Prior to Encounter Medication Sig Dispense Refill acetaminophen (Tylenol) 325 MG tablet Take 650 mg by mouth every 6 hours as needed for mild pain (1-3). amiodarone (Pacerone) 200 MG tablet Take 1 tablet (200 mg) by mouth daily. 0 aspirin 81 MG chewable tablet Chew 1 tablet (81 mg) daily. 0 atorvastatin (Lipitor) 80 MG tablet Take 1 tablet (80 mg) by mouth daily. 0 carvedilol (Coreg) 3.125 MG tablet Take 3.125 mg by mouth in the morning and 3.125 mg in the evening. Take with meals. gabapentin (Neurontin) 100 MG capsule Take 1 capsule (100 mg) by mouth 2 times daily. 0 glucose (Glutose) 40 % gel oral gel Take 15 g by mouth as needed for low blood sugar. Hypoglycemia ipratropium-albuterol (Duo-Neb) 0.5-2.5 mg/3 mL nebulizer solution Take 3 mL by nebulization 3 times daily as needed for wheezing or shortness of breath. (Patient taking differently: Take 3 mL by nebulization every 6 hours as needed for wheezing or shortness of breath.) 0 Melatonin 3 MG capsule Take 6 mg by mouth Nightly. midodrine (Proamatine) 2.5 MG tablet Take 2.5 mg by mouth 3 times daily as needed. Prior to OT/PT Hold for SBP >120 mirtazapine (Remeron) 15 MG tablet Take 15 mg by mouth Nightly. pantoprazole (ProtoNix) 40 MG EC tablet Take 40 mg by mouth every morning (before breakfast). Do not crush, chew, or split. polyethylene glycol, PEG, 3350 (Miralax) 17 g packet Take 17 g by mouth daily. QUEtiapine (SEROquel) 25 MG tablet Take 0.5 tablets (12.5 mg) by mouth every 8 hours as needed (Confusion, agitation). 1 tablet 0 sevelamer carbonate (Renvela) 800 MG tablet Take 800 mg by mouth in the morning and 800 mg at noon and 800 mg in the evening. Take with meals. Swallow tablet whole; do not crush, break, or chew.. tiotropium (Spiriva Respimat) 2.5 MCG/ACT inhaler Inhale 2 puffs daily. 1 each 11 [DISCONTINUED] linaGLIPtin (Tradjenta) 5 MG tablet test 30 tablet 0 Physical exam: BP 108/51 Pulse 70 Resp 18 Ht 1.778 m (5' 10) Wt 62.6 kg (138 lb) SpO2 99% BMI 19.80 kg/m NAD Labs: Recent Labs 02/10/24 0500 02/12/24 0234 WBC 7.8 7.2 HGB 8.7* 9.3* HCT 29.2* 29.8* MCV 96.1 94.6 PLT 194 184 Recent Labs 02/10/24 0500 02/12/24 0234 NA 134* 135 K 4.9 4.1 CL 100 99 CO2 23 28 GLUCOSE 133* 156* BUN 36* 30* CREATININE 4.37* 3.89* CALCIUM 9.0 8.6 Ionized Calcium: No components found for: IONCA Magnesium: No results found for: MG Phosphorus: No results found for: PHOS Input / Output: 24 HR: No intake or output data in the 24 hours ending 02/12/24 1020 IV Intake: [place]: Imaging:From CXR on 02/12/2024: IMPRESSION: Pleural effusions and pulmonary vascular congestion Assessment: Jose John is a 78 y.o. male with hx including CAD, DM, HTN [facility]. Nephrology following for ZOFIA/CKD. ZOFIA/CKD -previously CKD stage 4 -COTT[employer] was started back in 11/22/2023 -has been on MWF schedule -had HD yesterday HTN -BP with control recently Volume -ultrafiltration with HD Electrolytes -stabilization with HD Acid/base -stabilization with HD Anemia -Hgb low at 9.3 CKD MBD -Ca okay Plan: -ultrafiltration session today -continue HD on MWF schedule MALINA Torres CNP Pt seen and examined independently by me. I reviewed with SABRINA Murcia the medical history and the findings on physical examination. I discussed the patient s diagnosis and concur with the treatment plan as documented in his note. Please call [phone] or message me through [employer] with any questions or concerns. documented in this [facility]07-09-2024 Emergency department Note* Courtney Guerrero RN - 02/12/2024 7:07 PM EDT Patient taken upstairs on tele by hossein Mchugh and hossein Benitez. Respirations even and unlabored. No acute distress noted. Vitals obtained and patient stable for transport. RT notified patient being transferred d/t being on high flow. Belongings sent with patient. Courtney Guerrero RN 02/12/24 4294 * Courtney Guerrero RN - 02/12/2024 5:42 PM EDT Provider at bedside. Courtney Guerrero RN 02/12/24 3421 * Courtney Guerrero RN - 02/12/2024 4:57 PM EDT Meal tray delivered to patient. Bedside table over patient lap and patient sitting up in bed eating. Courtney Guerrero RN 02/12/24 1657 * Courtney Guerrero RN - 02/12/2024 4:23 PM EDT Patient resting in bed, respirations even and unlabored. No acute distress noted. Remains on tele. Side rails up x2 for safety. Meal tray ordered for patient. Courtney Guerrero RN 02/12/24 1624 * Courtney Guerrero RN - 02/12/2024 4:22 PM EDT Patient back from dialysis. Per bag loader, 3L removed from patient. Courtney Guerrero RN 02/12/24 1622 * Courtney Guerrero RN - 02/12/2024 1:32 PM EDT Patient remains at dialysis at this time. Courtney Guerrero RN 02/12/24 1332 * Courtney Guerrero RN - 02/12/2024 1:19 PM EDT Report from LINA Bailon. Courtney Guerrero RN 02/12/24 1319 * Dago Guerra RN - 02/12/2024 1:08 PM EDT Pt to dialysis. Dago Guerra RN 02/12/24 1318 * Caitlyn Wilson RN - 02/12/2024 4:54 AM EDT ED RT at bedside with Dr. Ibanez and Dr. Wild. Caitlyn Wilson RN 02/12/24 0454 * Caitlyn Wilson RN - 02/12/2024 4:45 AM EDT Pt oxygen dropped to 82% after being removed from high flow and placed on 6L nc. Caitlyn Wilson RN 02/12/24 0455 * Caitlyn Wilson RN - 02/12/2024 4:42 AM EDT ED RT at pt bedside. Caitlyn Wilson RN 02/12/24 0445 * Caitlyn Wilson RN - 02/12/2024 2:23 AM EDT Xray at bedside. Caitlyn Wilson RN 02/12/24 0223 * Caitlyn Wilson RN - 02/12/2024 2:20 AM EDT ED RT at bedside. Caitlyn Wilson RN 02/12/24 0223 * Amanda Wild DO - 02/12/2024 1:58 AM EDT Emergency Department Encounter [facility] EMERGENCY DEPT Patient: Jose John : 1945 Date of Evaluation: 02/12/2024 ED Supervising Physician: Amanda Wild DO I personally evaluated Jose John and made/approved the management plan and take responsibility for the patient management. This will serve as my Supervisory note and shared attestation. I did perform a substantive portion of the visit including all aspects of the Medical Decision Making. I wore appropriate PPE for the entirety of this encounter. In brief, Jose John is a 78 y.o. medical history of CAD status post CABG, end-stage renal disease on hemodialysis Sunday with full session dialysis yesterday/no missed sessions, ischemic cardiomyopathy, diabetes, hypertension that presents to the emergency department with progressively worsening shortness of breath since yesterday morning. Noted to be hypoxic at nursing facility. Not normally on oxygen. Was on 6 L nonrebreather at nursing facility upon EMS arrival. EMS de-escalated oxygen therapy to 3 L. Arrives saturating 80% on 3 L. Persistent hypoxia despite increasing oxygen at bedside to 6 L and patient subsequently placed on nonrebreather. Patient denies chest pain or lower extremity edema. Recent admission 01/21 through 01/29 for shortness of breath/hypoxic respiratory failure secondary topleural effusions requiring therapeutic thoracentesis. Focused exam: BP (!) 153/61 (Patient Position: Lying) Pulse 69 Resp 20 Ht 1.778 m (5' 10) Wt 62.6 kg (138 lb) SpO2 98% BMI 19.80 kg/m Constitutional: Alert, awake Lungs: 100% on nonrebreather. Poor air movement appreciated on bedside auscultation bilaterally. Noincreased work of breathing and speaking in full sentences on nonrebreather. Heart: RRR , no murmurs, equal distal pulses to extremities, no peripheral edema/erythema/warmth ofLEs b/l. Vascular: radial 2/4 equal B/L, dp 2/4 equal B/L Brief ED course/MDM: 78 y.o. medical history of CAD status post CABG, end-stage renal disease on hemodialysis Sunday with full session dialysis yesterday/no missed sessions, ischemic cardiomyopathy, diabetes, hypertension that presents to the emergency department with progressively worsening shortness of breath since yesterday morning. Noted to be hypoxic at nursing facility. Not normally on oxygen. Was on 6 L nonrebreather at nursing facility upon EMS arrival. EMS de-escalated oxygen therapy to 3 L. Arrives saturating 80% on 3 L. Persistent hypoxia despite increasing oxygen at bedside to 6 L andpatient subsequently placed on nonrebreather. Patient denies chest pain or lower extremity edema. Recent admission 01/21 through 01/29 for shortness of breath/hypoxic respiratory failure secondary topleural effusions requiring therapeutic thoracentesis. Considered hypoxia secondary to recurrence of pleural effusions, ACS, pneumothorax. Transition to high flow nasal cannula for hypoxia-13 L EKG sinus rhythm with right bundle branch block. No ischemic changes by Sgarbossa's criteria Troponin negative Labs otherwise elevated BNP Chest x-ray with bilateral pleural effusions as interpreted by myself Attempted to wean to 6 L nasal cannula but unsuccessful and placed back on 13 L high flow. Admitted for therapeutic thoracentesis. ED Medications managed: Medications - No data to display Total critical care time today provided was at least 35 minutes. This excludes seperately billable procedure. Critical care time provided for acute hypoxic respiratory failure secondary to bilateral pleural effusions requiring high flow nasal cannula recurrent reassessment that required close evaluation and/or intervention with concern for patient decompensation. All diagnostic, treatment, and disposition decisions were made by myself in conjunction with the Resident. I also supervised alexandre portions of any procedures performed by the Resident. For all further details of the patient's emergency department visit, please see their documentation. (Comment: Please note this report has been produced using speech recognition software and may contain errors related to that system including errors in grammar, punctuation, and spelling, as well as words and phrases that may be inappropriate. If there are any questions or concerns please feel freeto contact the dictating provider for clarification.) Amanda Wild DO [employer] Amanda Wild DO 02/12/24 0455 * Kelsey Ibanez DO - 02/12/2024 1:58 AM EDT EMERGENCY DEPARTMENT ENCOUNTER Pt Name: Jose John Birthdate 1945 Date of evaluation: 02/12/2024 ED Provider: KELSEY IBANEZ DO CHIEF COMPLAINT No chief complaint on file. HISTORY OF PRESENT ILLNESS (Location/Symptom, Timing/Onset, Context/Setting, Quality, Duration, Modifying Factors, Severity) Note limiting factors. I wore appropriate PPE for the entirety of this encounter. HPI Jose John is a 78 y.o. who presents to the emergency department for respiratory failure.Patient had been seen by rehab when staff noted there that he was hypoxic. Patient does not typically use any home O2. Placed him on 6 L nonrebreather and called EMS. EMS remove the nonrebreather andput him on 3 L nasal cannula and brought him to the ED. Here he is saturating 80% on 3 L but when increased to 6 L O2 sat normalized. Has shortness of breath but denies any chest pain, fever, chills,abdominal pain. He is ESRD on dialysis and receives this Sunday. Last session was yesterday. Nursing Notes were reviewed. Limitations to history: None Outside historians: EMS REVIEW OF SYSTEMS Review of Systems Pertinent positives and negatives as per HPI. PAST MEDICAL HISTORY No past medical history on file. SURGICAL HISTORY No past surgical history on file. CURRENT MEDICATIONS Previous Medications ACETAMINOPHEN (TYLENOL) 325 MG TABLET Take 650 mg by mouth every 6 hours as needed for mild pain (1-3). AMIODARONE (PACERONE) 200 MG TABLET Take 1 tablet (200 mg) by mouth daily. ASPIRIN 81 MG CHEWABLE TABLET Chew 1 tablet (81 mg) daily. ATORVASTATIN (LIPITOR) 80 MG TABLET Take 1 tablet (80 mg) by mouth daily. CARVEDILOL (COREG) 3.125 MG TABLET Take 3.125 mg by mouth in the morning and 3.125 mg in the evening. Take with meals. GABAPENTIN (NEURONTIN) 100 MG CAPSULE Take 1 capsule (100 mg) by mouth 2 times daily. GLUCOSE (GLUTOSE) 40 % GEL ORAL GEL Take 15 g by mouth as needed for low blood sugar. Hypoglycemia IPRATROPIUM-ALBUTEROL (DUO-NEB) 0.5-2.5 MG/3 ML NEBULIZER SOLUTION Take 3 mL by nebulization 3 times daily as needed for wheezing or shortness of breath. MELATONIN 3 MG CAPSULE Take 6 mg by mouth Nightly. MIDODRINE (PROAMATINE) 2.5 MG TABLET Take 2.5 mg by mouth 3 times daily as needed. Prior to OT/PT Hold for SBP >120 MIRTAZAPINE (REMERON) 15 MG TABLET Take 15 mg by mouth Nightly. PANTOPRAZOLE (PROTONIX) 40 MG EC TABLET Take 40 mg by mouth every morning (before breakfast). Do not crush, chew, or split. POLYETHYLENE GLYCOL, PEG, 3350 (MIRALAX) 17 G PACKET Take 17 g by mouth daily. QUETIAPINE (SEROQUEL) 25 MG TABLET Take 0.5 tablets (12.5 mg) by mouth every 8 hours as needed (Confusion, agitation). SEVELAMER CARBONATE (RENVELA) 800 MG TABLET Take 800 mg by mouth in the morning and 800 mg at noon and 800 mg in the evening. Take with meals. Swallow tablet whole; do not crush, break, or chew.. TIOTROPIUM (SPIRIVA RESPIMAT) 2.5 MCG/ACT INHALER Inhale 2 puffs daily. ALLERGIES Lisinopril, Penicillins, Sulfa antibiotics, and Levofloxacin FAMILY HISTORY No family history on file. SOCIAL HISTORY Social History Socioeconomic History Marital status: Tobacco Use Smoking status: Never Smokeless tobacco: Never Social Determinants of Health Financial Resource Strain: Low Risk (01/11/2024) Received from [facility] Overall Financial Resource Strain (CARDIA) Difficulty of Paying Living Expenses: Not hard at all Food Insecurity: No Food Insecurity (01/11/2024) Received from [facility] Hunger Vital Sign Worried About Running Out of Food in the Last Year: Never true Ran Out of Food in the Last Year: Never true Transportation Needs: Patient Unable To Answer (01/23/2024) Received from [facility] [place] Transportation Source Has lack of transportation kept you from medical appointments or from getting medications?: Unable to respond Has lack of transportation kept you from meetings, work, or from getting things needed for daily living?: Unable to respond Stress: No Stress Concern Present (01/11/2024) Received from [facility] [place] [facility] Occup[facility] - Occupational Stress Questionnaire Feeling of Stress : Only a little Social Connections: Socially Integrated (01/11/2024) Received from [facility] Social Connection and Isolation Panel [NHANES] Frequency of Communication with Friends and Family: Three times a week Frequency of Social Gatherings with Friends and Family: Once a week Attends Temple Services: More than 4 times per year Active Member of Clubs or Organizations: Yes Attends Club or Organization Meetings: 1 to 4 times per year Marital Status: Intimate Partner Violence: Not At Risk (01/11/2024) Received from [facility] Domestic Abuse Assessment Do you feel safe in your relationships at home?: Yes Physical Abuse: Denies Verbal Abuse: Denies Housing Stability: Unknown (12/27/2023) Received from [facility], [facility] Housing Stability Vital Sign Unable to Pay for Housing in the Last Year: No In the last 12 months, was there a time when you did not have a steady place to sleep or slept in [facility] (including now)?: No SCREENINGS PHYSICAL EXAM ED Triage Vitals [02/12/24 0203] Temp Heart Rate Resp BP -- 77 21 (!) 159/66 SpO2 Temp src Heart Rate Source Patient Position (!) 80 % -- Monitor Lying BP Location FiO2 (%) -- -- Physical Exam Constitutional: General: He is not in acute distress. Appearance: Normal appearance. HENT: Head: Normocephalic and atraumatic. Right Ear: External ear normal. Left Ear: External ear normal. Nose: No congestion or rhinorrhea. Mouth/Throat: Mouth: Mucous membranes are moist. Pharynx: Oropharynx is clear. Eyes: Extraocular Movements: Extraocular movements intact. Pupils: Pupils are equal, round, and reactive to light. Cardiovascular: Rate and Rhythm: Normal rate and regular rhythm. Pulses: Normal pulses. Heart sounds: Normal heart sounds. Pulmonary: Effort: No respiratory distress. Comments: Diminished breath sounds bilaterally Abdominal: General: Abdomen is flat. There is no distension. Palpations: Abdomen is soft. Tenderness: There is no abdominal tenderness. Musculoskeletal: General: No swelling or deformity. Normal range of motion. Cervical back: Normal range of motion. Skin: General: Skin is warm and dry. Capillary Refill: Capillary refill takes less than 2 seconds. Findings: No rash. Neurological: General: No focal deficit present. Mental Status: He is alert and oriented to person, place, and time. Mental status is at baseline. Psychiatric: Mood and Affect: Mood normal. Behavior: Behavior normal. DIAGNOSTIC RESULTS RADIOLOGY (Per Emergency Physician): Interpretation per the Radiologist below, if available at the time of this note: XR chest 1 view Final Result Pleural effusions and pulmonary vascular congestion Report Dictated on Electronically Signed By: Michele Villasenor MD Electronically Signed Date/Time: 02/12/2024 2:30 AM EDT LABS: Labs Reviewed CBC WITH AUTO DIFFERENTIAL - Abnormal Result Value Auto WBC 7.2 RBC 3.15 (*) Hemoglobin 9.3 (*) Hematocrit 29.8 (*) MCV 94.6 MCH 29.5 MCHC 31.2 RDW 16.8 (*) Platelets 184 MPV 10.2 nRBC 0.0 Neutrophils Relative 77.1 Lymphocytes Relative 8.4 (*) Monocytes Relative 9.3 Eosinophils Relative 3.6 Basophils Relative 1.0 Immature Grans % 0.6 Neutrophils Absolute 5.6 Lymphocytes Absolute 0.6 (*) Monocytes Absolute 0.7 Eosinophils Absolute 0.3 Basophils Absolute 0.1 Immature Grans Absolute 0.0 NT PRO BNP - Abnormal NT PRO BNP 14,823 (*) COMPREHENSIVE METABOLIC PANEL - Abnormal SODIUM 135 POTASSIUM 4.1 CHLORIDE 99 CARBON DIOXIDE 28 ANION GAP 8 UREA NITROGEN 30 (*) CREATININE 3.89 (*) GLUCOSE 156 (*) CALCIUM 8.6 AST (SGOT) 31 ALT 32 ALKALINE PHOSPHATASE 84 ALBUMIN 3.4 (*) BILIRUBIN, TOTAL 0.5 TOTAL PROTEIN 6.4 eGFR 15.3 (*) TROPONIN, WITH SERIAL REFLEX - Normal TROPONIN I 0.020 Narrative: Patients with high levels of Biotin oral intake (ie >5 mg/day) may have falsely decreased Troponin levels. TROPONIN I All other labs were within normal range or not returned as of this dictation. EMERGENCY DEPARTMENT COURSE and DIFFERENTIAL DIAGNOSIS/MDM: Vitals: Vitals: 02/12/24 0203 02/12/24 0207 02/12/24 0442 02/12/24 0458 BP: (!) 159/66 (!) 153/61 Patient Position: Lying Lying Pulse: 77 69 78 Resp: 21 20 20 SpO2: (!) 80% 100% 98% 99% Weight: 62.6 kg (138 lb) Height: 1.778 m (5' 10) The patient presented with a chief complaint of shortness of breath. The differential diagnosis associated with this patient's presentation includes ACS, COPD, pneumonia, pleural effusion, pneumothorax, fluid overload. Our workup consisted of ordering/reviewing labs and imaging. BNP 15,000. Creatinine 349 which is better than baseline. BUN 30. Normal white count. Baseline hemoglobin 9.3. Troponin0.02. EKG shows a right bundle branch block. Chest x-ray shows pleural effusions bilaterally with some pulmonary vascular congestion. Patient will need thoracentesis and weaning of oxygen needs. admitted to medicine. Currently on 8 L and saturating at 99 to 100%. Diagnoses as of 02/12/24 0522 Pleural effusion Hypoxia External records reviewed: Discharged of last month after being admitted for acute hypoxic respiratory failure. Diagnostics interpreted by me: Xray(s) see above EKG; see my interpretation elsewhere in the chart Discussions with other clinicians: medicine Chronic conditions impacting care: ESRD, CAD s/p CABG Social determinants of health affecting care: none ED Medications managed: Medications - No data to display Prescription drugs considered: None indicated PROCEDURES: Unless otherwise noted below, none Procedures FINAL IMPRESSION 1. Pleural effusion 2. Hypoxia DISPOSITION Admit 02/12/2024 05:18:29 AM PATIENT REFERRED TO: No follow-up provider specified. DISCHARGE MEDICATIONS: New Prescriptions No medications on file (Comment: Please note this report has been produced using speech recognition software and may contain errors related to that system including errors in grammar, punctuation, and spelling, as well as words and phrases that may be inappropriate. If there are any questions or concerns please feel freeto contact the dictating provider for clarification.) KELSEY IBANEZ DO (electronically signed) Emergency Medicine Provider Kelsey Ibanez DO Resident 02/12/24 0522 documented in this [facility]07-09-2024 History and physical note* Maylin Allen MD - 02/12/2024 5:33 AM EDT Attending History and Physical Admit Date: 02/12/2024 PCP: OLENA GABRIEL CHIEF COMPLAINT: HISTORY OF PRESENT ILLNESS: Jose is a 78 y.o. male with past medical history of CAD, DM, HTN and ESRD on HD who presented to ED for respiratory failure. Patient had been seen by rehab when staff noted there that he was hypoxic. Patient does not typically use any home O2. Placed him on 6 L nonrebreather and called EMS. EMS remove the nonrebreather and put him on 3 L nasal cannula and brought him to the ED. Here he is saturating 80% on 3 L but when increased to 6 L O2 sat normalized. Has shortness of breath but denies any chest pain, fever, chills, abdominal pain. He is ESRD on dialysis and receives this Sunday. Last session was yesterday. In ED transition to 8 L and saturating at 99 to 100%. Past Medical History: No past medical history on file. Past Surgical History: No past surgical history on file. Social History: Social History Socioeconomic History Marital status: Spouse name: Not on file Number of children: Not on file Years of education: Not on file Highest education level: Not on file Occupational History Not on file Tobacco Use Smoking status: Never Smokeless tobacco: Never Substance and Sexual Activity Alcohol use: Not on file Drug use: Not on file Sexual activity: Not on file Other Topics Concern Not on file Social History Narrative Not on file Social Determinants of Health Financial Resource Strain: Low Risk (01/11/2024) Received from [facility] Overall Financial Resource Strain (CARDIA) Difficulty of Paying Living Expenses: Not hard at all Food Insecurity: No Food Insecurity (01/11/2024) Received from [facility] Hunger Vital Sign Worried About Running Out of Food in the Last Year: Never true Ran Out of Food in the Last Year: Never true Transportation Needs: Patient Unable To Answer (01/23/2024) Received from [facility] [place] Transportation Source Has lack of transportation kept you from medical appointments or from getting medications?: Unable to respond Has lack of transportation kept you from meetings, work, or from getting things needed for daily living?: Unable to respond Physical Activity: Not on file Stress: No Stress Concern Present (01/11/2024) Received from [facility] [place] [facility] Occupational [facility] - Occupational Stress Questionnaire Feeling of Stress : Only a little Social Connections: Socially Integrated (01/11/2024) Received from [facility] Social Connection and Isolation Panel [NHANES] Frequency of Communication with Friends and Family: Three times a week Frequency of Social Gatherings with Friends and Family: Once a week Attends Temple Services: More than 4 times per year Active Member of Clubs or Organizations: Yes Attends Club or Organization Meetings: 1 to 4 times per year Marital Status: Intimate Partner Violence: Not At Risk (01/11/2024) Received from [facility] Domestic Abuse Assessment Do you feel safe in your relationships at home?: Yes Physical Abuse: Denies [facility] Domestic Abuse - Type of Abuse: Not on file HRSN Domestic Abuse - Time Frame: Not on file HRSN Domestic Abuse - Signs and Symptoms: Not on file Verbal Abuse: Denies [facility] Domestic Abuse - Reported To: Not on file Housing Stability: Unknown (12/27/2023) Received from [facility], [facility] Housing Stability Vital Sign Unable to Pay for Housing in the Last Year: No Number of Places Lived in the Last Year: Not on file In the last 12 months, was there a time when you did not have a steady place to sleep or slept in [facility] (including now)?: No Family History: No family history on file. Medications Prior to Admission: No current facility-administered medications on file prior to encounter. Current Outpatient Medications on File Prior to Encounter Medication Sig Dispense Refill acetaminophen (Tylenol) 325 MG tablet Take 650 mg by mouth every 6 hours as needed for mild pain (1-3). amiodarone (Pacerone) 200 MG tablet Take 1 tablet (200 mg) by mouth daily. 0 aspirin 81 MG chewable tablet Chew 1 tablet (81 mg) daily. 0 atorvastatin (Lipitor) 80 MG tablet Take 1 tablet (80 mg) by mouth daily. 0 carvedilol (Coreg) 3.125 MG tablet Take 3.125 mg by mouth in the morning and 3.125 mg in the evening. Take with meals. gabapentin (Neurontin) 100 MG capsule Take 1 capsule (100 mg) by mouth 2 times daily. 0 glucose (Glutose) 40 % gel oral gel Take 15 g by mouth as needed for low blood sugar. Hypoglycemia ipratropium-albuterol (Duo-Neb) 0.5-2.5 mg/3 mL nebulizer solution Take 3 mL by nebulization 3 times daily as needed for wheezing or shortness of breath. (Patient taking differently: Take 3 mL by nebulization every 6 hours as needed for wheezing or shortness of breath.) 0 Melatonin 3 MG capsule Take 6 mg by mouth Nightly. midodrine (Proamatine) 2.5 MG tablet Take 2.5 mg by mouth 3 times daily as needed. Prior to OT/PT Hold for SBP >120 mirtazapine (Remeron) 15 MG tablet Take 15 mg by mouth Nightly. pantoprazole (ProtoNix) 40 MG EC tablet Take 40 mg by mouth every morning (before breakfast). Do not crush, chew, or split. polyethylene glycol, PEG, 3350 (Miralax) 17 g packet Take 17 g by mouth daily. QUEtiapine (SEROquel) 25 MG tablet Take 0.5 tablets (12.5 mg) by mouth every 8 hours as needed (Confusion, agitation). 1 tablet 0 sevelamer carbonate (Renvela) 800 MG tablet Take 800 mg by mouth in the morning and 800 mg at noon and 800 mg in the evening. Take with meals. Swallow tablet whole; do not crush, break, or chew.. tiotropium (Spiriva Respimat) 2.5 MCG/ACT inhaler Inhale 2 puffs daily. 1 each 11 [DISCONTINUED] linaGLIPtin (Tradjenta) 5 MG tablet test 30 tablet 0 Allergies: Allergies Allergen Reactions Lisinopril Wheezing Penicillins Anaphylaxis Sulfa Antibiotics Anaphylaxis Levofloxacin Nausea Only REVIEW OF SYSTEMS: As per HPI Vitals: BP (!) 153/61 (Patient Position: Lying) Pulse 78 Resp 20 Ht 5' 10 (1.778 m) Wt 138 lb (62.6 kg) SpO2 99% BMI 19.80 kg/m BMI Classification: Pulse Ox: SpO2 Av.3 % Min: 80 % Max: 100 % Supplemental O2: O2 Flow Rate (L/min): 8 L/min PHYSICAL EXAM: Physical Exam HEENT: PERRLA, EOMI Neck: supple, no tenderness Chest: BLAE,diminished CVS: S1+, S2+, no m/r/g Abdomen: soft, nontender, BS+ ACIDIZER HELPER: AAOx3, no focal deficit Ext: pulse 2+ DATA: CBC: Recent Labs 02/10/24 0500 02/12/24 0234 WBC 7.8 7.2 RBC 3.04* 3.15* HGB 8.7* 9.3* HCT 29.2* 29.8* MCV 96.1 94.6 RDW 16.6* 16.8* PLT 194 184 BMP: Recent Labs 02/10/24 0500 02/12/24 0234 NA 134* 135 K 4.9 4.1 CL 100 99 CO2 23 28 BUN 36* 30* CREATININE 4.37* 3.89* GLUCOSE 133* 156* CALCIUM 9.0 8.6 ANIONGAP 11 8 LIVER PROFILE: Recent Labs 02/12/24 0234 AST 31 ALT 32 BILITOT 0.5 ALKPHOS 84 PROT 6.4 PT/INR: No results for input(s): PROTIME, INR in the last 72 hours. CARDIAC ENZYMES: Recent Labs 02/12/24 0234 TROPONINI 0.020 Procalcitonin: No results found for: PROCAL Urine Culture: No results found for this or any previous visit. COVID-19 PCR: No results for input(s): COVID19 in the last 72 hours. I reviewed: [x] laboratory results [x] radiographic results At the time of today's encounter. Pt was advised of the results. Data: (LOW: 2x CAT1 or independent historian MOD: 3x CAT1 or 1x CAT3 EXTENSIVE: 3x CAT1 and 1x CAT3) Assessment Discussed management with the ED provider and agree with hospitalization. Acute, acute on chronic, unstable/uncontrolled chronic problems/diagnoses: # Acute hypoxic respiratory failure - cxr soed Pleural effusions and pulmonary vascular congestion - may need thoracentesis - nephrology consult Stable chronic problems affecting care, new non-acute diagnoses: # DM 2 # CAD s/p cabg # Anemia Plan As a result of the above findings & factors, the following mgmt was pursued: - home meds as ordered - am labs, replace lytes prn - PT/OT/CM/SW - delirium precautions: increase activity - DVT prophylaxis: heparin and encourage ambulation Advance Directive: Prior Anticipated Discharge - Date - tbd - Location - Acute Rehab - Pending the following - clinical course Total time spent (which include face to face and non face to face encounters) : 56 minutes. 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 No [employer] Jose Glasgow Alek : 1945 Primary Care Physician: OLENA GABRIEL The patient and/or family/surrogate voluntarily agreed to participate in ACP services. Patient s cognitive capacity: yes Code Status: [x] [FULL CODE - Continue all advanced life support: CPR,intubation,invasive procedures] [_] [DNR-CCA - DO NOT do CPR, intubation] [_] [DNR-AUTO TECHNICIAN - Comfort care only] [_] DNR form [was/was not] signed Summary of discussion: The patient health care POA/ surrogate is the following: Deepti John (POA) [Condition that instigated the ACP on this DOS, relevant PMH, functional status, goals of care, andwhom this was discussed with including names and relationship to the patient, and any relevant advance care documentation discussion] I answered all the patient/family questions that I could within the range and scope of the current medical situation. We discussed the medical conditions, risks, benefits, outcomes, and goals of careat this time for the patient's medical issues at hand in the face of the patient's chronic issues and current presentation. Total time spent: 2 minutes were spent discussing the patient's resuscitation status, advance care planning, and end of life care, with patient and/or family/surrogate. Maylin Allen MD Division of Hospitalist Medicine [facility] documented in this [facility]07-03-2024 History of Present illness Narrative* MALINA Grant CNP - 02/06/2024 2:16 PM EDT Patient seen by me at [facility]. Complete documentation including history with assessment and plan were documented in [facility] EMR. This encounter is for billing only. documented in this [facility]06-28-2024 History of Present illness Narrative* MALINA Grant CNP - 02/01/2024 3:12 PM EDT Patient seen by me at [facility]. Complete documentation including history with assessment and plan were documented in [facility] EMR. This encounter is for billing only. documented in this [facility]06-26-2024 Nurse Note* Daniella Huff RN - 01/30/2024 9:14 PM EDT Transport arrived and took pt to rehab at 20:50. All night pm meds given up to 21:00 by this RN andpt was ready to go and in good spirits. [id number]* Daniella Huff RN - 01/30/2024 9:14 PM EDT Transport arrived and took pt to rehab at 20:50. All night pm meds given up to 21:00 by this RN andpt was ready to go and in good spirits. * Lexis Araujo RN - 01/29/2024 5:47 PM EDT Patient given Seroquel as ordered prn per request of patient's daughter. Per daughter, patient experiences paranoid delusions at night and calls her on the phone fearful for his safety. RN administered Seroquel to attempt to avoid night time confusion and agitation. * Leana Collins RN - 01/25/2024 10:14 AM EDT Patient arrived to Ultrasound department for thoracentesis. History, medications and allergies reviewed. Yesenia Nolen PA-C in to discuss procedure and informed consent obtained. Patient assisted to sitting on the edge of the bed. Right upper back scanned, marked and prepped in sterile fashion. 400mL of clear gold fluid removed. Vaseline guaze dressing applied. Patient tolerated procedure well. Patient transported to [address] [place] [address] * Leslie Comer RN - 01/24/2024 1:48 PM EDT Patient arrived to Ultrasound department for thoracentesis. History, medications and allergies reviewed. PA. Nolen in to discuss procedure and informed consent obtained. Patient assisted to sitting on the edge of the bed. Left upper back scanned, marked and prepped in sterile fashion. 1.4 L of dark Red fluid removed. Vaseline guaze dressing applied. Patient tolerated procedure well. * Candido Lawson - 01/23/2024 6:30 PM EDT Patient Name: Jose John Patient : 1945 Acct: [id number] Date of Admission: 01/22/2024 Room/Bed: [facility] Code Status: Prior Allergies: Allergies Allergen Reactions Lisinopril Wheezing Penicillins Anaphylaxis Sulfa Antibiotics Anaphylaxis Levofloxacin Nausea Only Diagnosis: Patient Active Problem List Diagnosis Unstable angina ([facility]) ([facility]) Coronary artery disease Multi-vessel coronary artery stenosis Carotid artery bruit Carotid arterial disease ([facility]) NSTEMI (non-ST elevated myocardial infarction) ([facility]) CKD (chronic kidney disease) stage 4, GFR 15-29 ml/min ([facility]) Cardiomyopathy, ischemic S/P CABG (coronary artery bypass graft) Severe malnutrition ([facility]) ([facility]) Shortness of breath Treatment: Hemodilaysis 2:1 Priority: Routine Location: Acute Room Diabetic: Yes NPO: No Isolation Precautions: Dialysis Consent for Treatment Verified: Yes Blood Consent Verified: Not Applicable ICEBOAT: Identify, Consent, Equipment, HepB Status, Orders Complete, Access Verified, Timeliness (o2 wall suction bedside) Second Clinician Verifying: Victoriano Christy Time out performed prior to access at 1630 . Report Received from Primary RN at 1405. Primary RN (First Initial, Last Name, Title): Praveena YEPEZ RN Incapacitated Nurse Education Completed: shaheen christy en HBsAg ONLY: Date Drawn: January 17, 2024 Results: Negative HBsAb: Date Drawn: January 17, 2024 Results: Susceptible <10 Order Dialyzer: Revaclear 300 Na+ Modeling: Not Applicable Dialysate Temperature (C): 36 Blood Flow Rate (BFR): 400 Dialysate Flow Rate (DFR): 600 Access to be Utilized Access: Tunneled Catheter Location: Internal Jugular Side: Right Needle gauge: Not Applicable + Bruit/Thrill: Not Applicable First Use X-ray Verified: Not Applicable OK to use line order: Yes Site Assessment: Signs and Symptoms of Infection/Inflammation: None If yes: Not Applicable Dressing: Dry and Intact Site Prep: Medical Aseptic Technique Dressing Changed this Treatment: Yes If yes, by whom: Linda MILLS Date of Last Dressing Change: January 23, [address]?: Yes Red Alcohol Caps in place?: Yes Gauze Dressing?: No Non-Dialysis Use?: No Comment: Flows: Good and Patent If access problem, who was notified: Pre and Post-Assessment Patient Vitals for the past 8 hrs: Level of Consciousness Oriented X Heart Rhythm Respiratory Pattern O2 Device Bilateral Breath Sounds Skin Color Skin Condition/Temp Abdomen Inspection Bowel Sounds (All Quadrants) 01/23/24 1626 Alert (0) 3 Regular Other (Comment) Nasal cannula Diminished Pale Warm;Dry;No swelling Soft Active 01/23/24 1938 Alert (0) 3 Regular -- Nasal cannula Clear Pale -- -- -- Labs Lab Results Component Value Date/Time WBC 8.4 01/22/20241917 HGB 8.3 (L) 01/22/20241917 HGB 9.6 12/04/2023 0012 HCT 27.2 (L) 01/22/20241917 PLT 265 01/22/20241917 NA 133 (L) 01/22/20241917 K 4.7 01/22/20241917 CL 96 (L) 01/22/20241917 CO2 28 01/22/20241917 BUN 29 (H) 01/22/20241917 CREATININE 5.26 (H) 01/22/20241917 CALCIUM 8.7 01/22/20241917 PHOS 4.4 01/07/2024 0341 IV Drips and Rate/Dose Safety - Before each treatment: Dialysis Machine No.: [id number] Machine Number: [id number] Dialyzer Lot No.: [id number] Tubing Lot Number: [id number] All Connections Secure: Yes Venous Parameters Set: Yes Arterial Parameters Set: Yes NS Bag: Yes Saline Line Double Clamped: Yes Dialyzer: Revaclear 300 Prime Volume (mL): 200 mL RO Machine Number: [id number] RO Machine Log Sheet Completed: Yes Machine Alarm Self Test: Completed, Passed (01/23/24 1526) Air Foam Detector: Tested, Proper Function, pH Reading Extracorporeal Circuit Tested for Integrity: Yes Machine Conductivity: 13.8 Manual Conductivity: 13.7 Manual Ph: 7 Bleach Test (Neg): Yes Bath Temperature: 36 C (96.8 F) Conductivity Meter Serial #: [id number] Machine Functioning Alarm Free? Yes Dialysis Bath: K+ (Potassium): 3 Ca+ (Calcium): 2.5 Na+ (Sodium): 138 HCO3 (Bicarb): 37 Chlorine Testing - Before each treatment and every 4 hours: Time On: 163 Time Off: 1934 Weight Height: 177.8 cm (5' 10) (01/22/24 1856) Weight: 62.4 kg (137 lb 9.6 oz) (01/23/24 1251) BMI (Calculated): 19.74 (01/23/24 1251) 1st check: less than 0.1 ppm at: 1445 2nd check: less than 0.1 ppm at: 1745 3rd check: Not Applicable (if greater than 0.1 ppm, then check every 30 minutes from secondary) Access Flows and Pressures Patient Vitals for the past 8 hrs: Blood Flow Rate (mL/min) Ultrafiltration Rate (ml/hr) Arterial Pressure (mmHg) Venous Pressure (mmHg) TMP DFR Access Visible Intra-Hemodialysis Comments 01/23/24 1635 200 mL/min 830 ml/hr -30 mmHg 0 mmHg 40 600 Yes Tx initated call light within reach 01/23/24 1647 400 mL/min 136 ml/hr -80 mmHg 70 mmHg 90 600 Yes pt alert, stable, removed 135 01/23/24 1704 400 mL/min 136 ml/hr -80 mmHg 90 mmHg 50 600 Yes pt resting, removed 363, goal lowered to 1500, to support bp 01/23/24 1715 400 mL/min 0 ml/hr -100 mmHg 90 mmHg 80 600 Yes pt alert, stable, uf turned off to support bp, removed 498 01/23/24 1730 400 mL/min 0 ml/hr -110 mmHg 4100 mmHg 70 600 Yes pt alet, stable, uf remains off 01/23/24 1745 400 mL/min 0 ml/hr -100 mmHg 100 mmHg 70 600 Yes Pt resting rmv 498 01/23/24 1800 400 mL/min -- -100 mmHg 90 mmHg 70 600 Yes UF back on and goal down to 1000. pt stable 01/23/24 1815 400 mL/min 90 ml/hr -110 mmHg 100 mmHg 70 600 Yes goal to 700. pt stable, states he feels fine. uf removed is 583 01/23/24 1823 -- -- -- -- -- -- -- bicarb changed out conductivity is 13.8 ph 7 01/23/24 1830 400 mL/min 90 ml/hr -110 mmHg 100 mmHg 70 600 Yes pt alert, watching tv, removed 611 01/23/24 1840 400 mL/min 90 ml/hr -100 mmHg 100 mmHg 70 600 Yes pt alert, stable, telling jokes to staff, removed 628 01/23/24 1900 400 mL/min 90 ml/hr -110 mmHg 100 mmHg 70 600 Yes pt alert, watching tv, lines secure, removed 651 01/23/24 1910 400 mL/min 90 ml/hr -100 mmHg 110 mmHg 70 600 Yes Lines secure rmv 671 01/23/24 193 -- -- -- -- -- -- -- tx dcd, removed 700 Vital Signs Patient Vitals for the past 24 hrs: BP Temp Temp src Pulse Resp SpO2 Weight 01/23/241935 120/60 36.7 C (98.1 F) -- 84 -- -- -- 01/23/24 193 115/59 -- -- 83 -- -- -- 01/23/24 1910 116/50 -- -- 83 -- -- -- 01/23/24 1900 116/56 -- -- 82 -- -- -- 01/23/24 1840 109/61 -- -- 84 -- -- -- 01/23/24 1830 111/52 -- -- 82 -- -- -- 01/23/24 1815 91/50 -- -- 79 -- -- -- 01/23/24 1800 (!) 114/43 -- -- 83 -- -- -- 01/23/24 1745 (!) 87/50 -- -- 76 -- -- -- 01/23/24 1730 103/50 -- -- 76 -- -- -- 01/23/24 1715 (!) 83/45 -- -- 75 -- -- -- 01/23/24 1704 (!) 93/44 -- -- 75 -- -- -- 01/23/24 1647 124/79 -- -- 74 -- -- -- 01/23/24 1635 119/62 -- -- 76 -- -- -- 01/23/24 1626 115/60 36.7 C (98 F) -- 76 18 91 % -- 01/23/24 1427 -- -- -- 76 18 95 % -- 01/23/24 1251 -- -- -- -- -- -- 62.4 kg (137 lb 9.6 oz) 01/23/24 1249 110/61 36.2 C (97.1 F) Temporal 77 18 (!) 92 % -- 01/23/24 1100 123/60 -- -- 76 17 -- -- 01/23/24 1059 (!) 158/70 -- -- 76 18 93 % -- 01/23/24 1045 116/77 -- -- 74 20 95 % -- 01/23/24 0821 -- -- -- -- -- (!) 92 % -- 01/23/24 0818 119/62 -- -- 81 18 (!) 91 % -- 01/23/24 0635 (!) 181/75 -- -- 82 20 98 % -- 01/23/24 0552 -- -- -- 84 20 93 % -- 01/23/24 0437 (!) 148/69 -- -- 80 17 97 % -- 01/23/24 0312 (!) 143/78 -- -- 80 20 95 % -- 01/23/24 0218 -- -- -- 78 23 96 % -- 01/23/24 0000 116/51 -- -- 80 18 95 % -- 01/22/24 2228 -- -- -- -- -- 100 % -- 01/22/24 2200 121/73 -- -- 75 18 100 % -- 01/22/242105 -- -- -- 74 20 100 % -- 01/22/242056 -- -- -- -- -- (!) 91 % -- 01/22/242054 -- -- -- -- -- (!) 88 % -- Post-Dialysis Arterial Catheter Locking Solution: Heparin (1000units:1ml) Volume (ml): 1.9 Venous Catheter Locking Solution: Heparin (1000units:1ml) Volume (ml): 2 Post-Treatment Procedures: Blood returned, Catheter capped, clamped and heparinized x 2 ports Machine Disinfection Process: Acid/Vinegar Clean, Heat Disinfect, Exterior Machine Disinfection Rinseback Volume (mL): 300 mL Total Liters Processed (L/min): 67.2 L/min Dialyzer Clearance: Lightly streaked Hemodialysis Intake (ml): 500 ml Hemodialysis Output (ml): 700 ml NET Removed (ml): 200 ml Tolerated Treatment: Fair Charge: $ IP Hemodialysis Charge: Hemodialysis Provider Notification Provider Notification Reason for Communication: Patient request (pain med for LIRA, no PRNs available) Provider Name: Maddie Provider Role: Hospitalist Method of Communication: Secure chat Response: Waiting for response Notification Time: 0620 Reason for Communication: Patient request (pain med for LIRA, no PRNs available) Provider Role: Hospitalist Method of Communication: Secure chat Response: Waiting for response Notification Time: 0620 Handoff complete and report given to Primary RN at 1950. Primary RN (First Initial, Last Name, Title): Mariam MONTENEGRO RN Education Person Educated: Patient Knowledge Base: Substantial Barriers to Learning?: None Preferred method of Learning: Oral Topic(s): call light, Access Care, Signs and Symptoms of Infection, Fluid Management, and Procedural Teaching Tools: Explanation Response to Education: Verbalized Understanding documented in this [facility]06-26-2024 History of Present illness Narrative* Matt Quinn MD - 01/30/2024 4:52 PM EDT [facility] Progress Note Following for ZOFIA on advanced CKD Had HD earlier today. Planned for discharge to [facility] Subjective: Denied SOB. Vitals: BP 116/63 (BP Location: Right arm, Patient Position: Lying) Pulse 86 Temp 36.2 C (97.2 F) (Temporal) Resp 16 Ht 1.778 m (5' 10) Wt 62.2 kg (137 lb 2 oz) SpO2 94% BMI 19.68 kg/m BLOOD PRESSURE RANGE: Systolic (24hrs), Av , Min:92 , Max:157 ; Diastolic (24hrs), Av, Min:41, Max:85 24HR INTAKE/OUTPUT: Intake/Output Summary (Last 24 hours) at 01/30/2024 1702 Last data filed at 01/30/2024 1302 Gross per 24 hour Intake 300 ml Output 200 ml Net 100 ml Physical exam: NAD Was alert Data: Labs: Recent Labs 01/28/24 0444 01/28/24 1840 01/29/24 0443 01/30/24 0605 WBC 12.7* -- 12.3* 9.1 HGB 6.7* 8.8* 8.4* 8.8* HCT 21.1* 26.7* 26.6* 28.0* MCV 90.2 -- 89.9 92.4 PLT 229 -- 229 249 Recent Labs 01/27/24 2148 01/29/24 0443 01/30/24 0605 NA 131* 135 135 K 5.4* 4.2 4.0 CL 97* 99 99 CO2 24 31* 29 GLUCOSE 529* 167* 70 CALCIUM 8.3* 8.4 8.2* PHOS -- 3.6 -- BUN 59* 38* 55* CREATININE 7.17* 4.08* 5.61* Assessment: Jose John is a 78 y.o. male with PMHX oif T2DM, essential HTN and ZOFIA on CKD4 presented to the hospital with worsening SOB. We were consulted for ongoing dialysis management. ZOFIA/CKD -iHD initiated 12/2023 -has been on MWF schedule -had HD earlier today HTN -BP with control recently Volume -ultrafiltration with HD Electrolytes -stabilization with HD Acid/base -stabilization with HD Anemia -recent Hgb low at 8.8 CKD MBD -recent PO4 controlled at 3.6 Plan: -continue HD on MWF schedule -monitor for recovery, but with likelihood of ESRD Will follow at [facility] MALINA Torres CNP Pt seen and examined independently by me. I reviewed with SABRINA Murcia the medical history and the findings on physical examination. I discussed the patient s diagnosis and concur with the treatment plan as documented in his note. Please call [phone] or message me through [employer] with any questions or concerns. * MALINA Hoskins CNP - 01/30/2024 2:52 PM EDT [facility] Inpatient Consult Service Admission Date: 01/22/2024 Assessment Principal Problem: Shortness of breath Active Problems: Severe malnutrition (CMS/HCC) (HCC) Plan Acute Encephalopathy --Waxing/waning vs improving --Etiology likely multifactorial related to acute on chronic hypoxemic respiratory failure, hospital environment, advanced age, infection, medication side effects --Continue to treat acute and underlying infections per primary team --If agitated, assess for and consider treating for pain -- med recs as below --QTc= 444 --[place] PRN Seroquel for ONLY if danger to self/others/treatment and not otherwise redirectable--Received one dose last night at 1747 per family request --Continue scheduled melatonin at HS --Monitor for constipation/urinary retention - last BM 01/29 --Continue to involve family/NOK in conversations regarding medical decision making and discharge planning --Encourage PO intake, time up in chair, family visits, supervised ambulation, and sleep hygiene Depression -- reportedly not on sertraline prior to admission- discontinued, mirtazapine 15 mg nightly restarted -- patient tearful at time of visit about his physical condition- may benefit from counseling/therapy as outpatient for ongoing support Debility --Related to physical deconditioning, multiple transitions of care, acute illness --Continue PT/OT as able while inpatient- patient continues to vocalize desire for ongoing PT and to get stronger- plan for discharge today to rehab Follow-up: 1-2 days Subjective Chief Complaint: Patient presents with Shortness of Breath Pt [facility] for [facility] effusion. Pt states he has 3/10 left side chest pain . Hx ofCABG in November of this year. . Geriatrics consulted for Confused, paranoid, please evaluate HPI- The patient is known to me. 78 y.o. year-old male admitted to acute care from [facility] for chest pain and shortness of breath. Diagnosed with acute hypoxic respiratory failure with shortness of breath. Started on levofloxacin. Hospital course complicated by delirium, paranoia. Seen by pulmonology and treated for pneumonia and started on steroids. Seen by cardiothoracic surgery for wound dehiscence, s/p CABG on 11/21/2023. Interval History: Remains on telemetry. Per review of nursing note from last night, patient given Seroquel per dtrs request- patient havingparanoid delusions at night and calling her Patient tearful at time of visit, he is eager to get out of the hospital at this time, frustrated about the strength he had gained at rehab that he has now lost, looking forward to doing more therapywith goal of getting stronger. Appetite is better today, trying to eat more. Therapy recommendations: Seen by PT- recommending IP Rehab Review of Systems Constitutional: Positive for activity change and fatigue. Respiratory: Negative for cough and shortness of breath. Gastrointestinal: Negative for constipation and nausea. Musculoskeletal: Negative for arthralgias. Neurological: Negative for dizziness and headaches. Psychiatric/Behavioral: Positive for sleep disturbance. Negative for hallucinations. Objective BP 116/63 (BP Location: Right arm, Patient Position: Lying) Pulse 91 Temp 36.2 C (97.2 F) (Temporal) Resp 16 Ht 5' 10 (1.778 m) Wt 137 lb 2 oz (62.2 kg) SpO2 92% BMI 19.68 kg/m Intake/Output Summary (Last 24 hours) at 01/30/2024 1452 Last data filed at 01/30/2024 1302 Gross per 24 hour Intake 300 ml Output 200 ml Net 100 ml Wt Readings from Last 3 Encounters: 01/28/24 137 lb 2 oz (62.2 kg) 12/25/23 137 lb 5.6 oz (62.3 kg) Current Facility-Administered Medications: acetaminophen (Tylenol) tablet 650 mg, 650 mg, Oral, q6h PRN, Jaleel Duvall MD, 650 mg at 01/24/24 2019 amiodarone (Pacerone) tablet 200 mg, 200 mg, Oral, Daily, Jaleel Duvall MD, 200 mg at 01/30/24816 aspirin chewable tablet 81 mg, 81 mg, Oral, Daily, Jaleel Duvall MD, 81 mg at 01/30/24 08 atorvastatin (Lipitor) tablet 80 mg, 80 mg, Oral, Daily, Jaleel Duvall MD, 80 mg at 01/30/24 08 dextrose 5 % infusion, 100 mL/hr, IntraVENous, PRN, Jaleel Duvall MD dextrose 50 % solution 12.5 g, 12.5 g, IntraVENous, PRN, Jaleel Duvall MD gabapentin (Neurontin) capsule 100 mg, 100 mg, Oral, BID, Jaelel Duvall MD, 100 mg at 01/30/24 0817 glucagon (human recombinant) injection 1 mg, 1 mg, IntraMUSCular, PRN, Jaleel Duvall MD glucose oral gel 15 g, 15 g, Oral, PRN, Jaleel Duvall MD heparin injection 1,900 Units, 1,900 Units, IntraCATHeter, PRN, Kaushal Santiago MD, 1,900 Units at 01/30/24 1310 heparin injection 2,000 Units, 2,000 Units, IntraCATHeter, PRN, Kaushal Santiago MD, 2,000 Units at 01/30/24 1310 heparin injection 5,000 Units, 5,000 Units, SubCUTAneous, 3 times per day, Jaleel Duvall MD, 5,000 Units at 01/30/24 1416 insulin glargine (Lantus) injection 7 Units, 7 Units, SubCUTAneous, Nightly, Jaleel Duvall MD, 7 Units at 01/29/24 2115 Insulin Lispro (Humalog) injection 0-18 Units, 0-18 Units, SubCUTAneous, BID WC, 3 Units at 01/29/24 1746 AND Insulin Lispro (Humalog) injection 0-18 Units, 0-18 Units, SubCUTAneous, Nightly, Jaleel Duvall MD, 6 Units at 01/29/24 2211 ipratropium-albuterol (Duo-Neb) 0.5-2.5 mg/3 mL nebulizer solution 3 mL, 3 mL, Nebulization, TID PRN, Jaleel Duvall MD ipratropium-albuterol (Duo-Neb) 0.5-2.5 mg/3 mL nebulizer solution 3 mL, 3 mL, Nebulization, BID, Jaleel Duvall MD, 3 mL at 01/30/24 0728 iron sucrose (Venofer) 200 mg in sodium chloride 0.9 % 100 mL IVPB, 200 mg, IntraVENous, Daily, Argelia Khalil DO, Stopped at 01/30/24627 melatonin tablet 3 mg, 3 mg, Oral, Nightly PRN, MALNIA Kruger CNP, 3 mg at 01/28/242044 [START ON 01/31/2024] mirtazapine (Remeron) tablet 15 mg, 15 mg, Oral, Nightly, Elvie Johnson APRN - INTEGRATION ENGINEER mometasone-formoterol (Dulera 100) 100-5 MCG/ACT inhaler 2 puff, 2 puff, Inhalation, BID, Arun Lancaster MD, 2 puff at 01/30/24 1325 pantoprazole (ProtoNix) EC tablet 40 mg, 40 mg, Oral, qAM AC, Jaleel Duvall MD, 40 mg at 01/30/24 0606 QUEtiapine (SEROquel) tablet 12.5 mg, 12.5 mg, Oral, q8h PRN, Ursula Hubbard MD, 12.5 mg at 01/29/24 1747 sodium chloride 0.9 % infusion, 250 mL/hr, IntraVENous, PRN, Jaleel Duvall MD tamsulosin (Flomax) 24 hr capsule 0.4 mg, 0.4 mg, Oral, Daily, Jaleel Duvall MD, 0.4 mg at 01/30/24 0817 tiotropium (Spiriva Respimat) 2.5 MCG/ACT inhaler 2 puff, 2 puff, Inhalation, Daily, Arun Lancaster MD, 2 puff at 01/30/24 0817 Physical Exam Vitals reviewed. Constitutional: No acute distress, sitting up on side of bed eating lunch, cooperative with exam Psych: Mood and affect Tearful . Fair eye contact. Cooperative with exam. Cardiovascular: Regular rate and rhythm, no murmur, no BLE edema Pulmonary/Chest: Clear to auscultation anteriorly, normal respiratory effort, no coughing noted, nasal cannula in place Abdominal: Soft, not distended, no tenderness to palpation, BS present, Neurological: alert, attentive, speech is clear and appropriate , oriented x place and self, follows commands Musculoskeletal: Gait: assessment deferred Skin: warm and dry, no visible rashes or wounds Labs and Imaging: Recent Results (from the past 24 hour(s)) POCT glucose meter Collection Time: 01/29/24 5:40 PM Result Value Ref Range Glucose 172 (H) 70 - 100 mg/dL POCT glucose meter Collection Time: 01/29/24 10:08 PM Result Value Ref Range Glucose 208 (H) 70 - 100 mg/dL CBC Collection Time: 01/30/24 6:05 AM Result Value Ref Range Auto WBC 9.1 3.6 - 10.7 10*3/uL RBC 3.03 (L) 4.40 - 5.90 10*6/uL Hemoglobin 8.8 (L) 13.0 - 18.0 g/dL Hematocrit 28.0 (L) 40.0 - 52.0 % MCV 92.4 77.0 - 99.0 fL MCH 29.0 26.0 - 34.0 pg MCHC 31.4 30.5 - 36.0 % RDW 16.2 (H) 11.5 - 15.0 % Platelets 249 140 - 440 10*3/uL MPV 9.8 9.0 - 12.7 fL Comprehensive metabolic panel Collection Time: 01/30/24 6:05 AM Result Value Ref Range SODIUM 135 135 - 145 mmol/L POTASSIUM 4.0 3.5 - 5.1 mmol/L CHLORIDE 99 98 - 107 mmol/L CARBON DIOXIDE 29 22 - 30 mmol/L ANION GAP 7 3 - 13 mmol/L UREA NITROGEN 55 (H) 9 - 20 mg/dL CREATININE 5.61 (H) 0.66 - 1.25 mg/dL GLUCOSE 70 70 - 100 mg/dL CALCIUM 8.2 (L) 8.4 - 10.4 mg/dL AST (SGOT) 32 15 - 46 U/L ALT 47 0 - 49 U/L ALKALINE PHOSPHATASE 62 38 - 126 U/L ALBUMIN 2.8 (L) 3.5 - 5.0 g/dL BILIRUBIN, TOTAL 0.4 0.2 - 1.3 mg/dL TOTAL PROTEIN 5.6 (L) 6.3 - 8.2 g/dL eGFR 9.8 (L) >60.0 mL/min/1.73m*2 POCT glucose meter Collection Time: 01/30/24 7:28 AM Result Value Ref Range Glucose 73 70 - 100 mg/dL POCT glucose meter Collection Time: 01/30/24 1:18 PM Result Value Ref Range Glucose 163 (H) 70 - 100 mg/dL Lab Results Component Value Date TSH 1.786 11/15/2023 No results found for: [id number] Lab Results Component Value Date VITD25 16 (L) 11/16/2023 Reviewed: allergies, imaging, active problem lists, medications, and labs * Neeta Bray, RD - 01/30/2024 2:42 PM EDT Nutrition Assessment Type and Reason for Visit: Reassess Nutrition Recommendations/Plan: Pt discharging to [facility] this evening, currently ordered Low Potassium diet, RD does suggest some level of Sodium restriction as well, continue with Nepro BID as long as pt consuming, otherwise given pending discharge RD to assign pt low nutrition risk level. Malnutrition Assessment: Malnutrition Status: Severe malnutrition (per initial RD assessment, MD has only documented 'malnutrition unspecified') Context: Acute Illness Nutrition Assessment: Pt with PMH including 'NSTEMI/CAD s/p recent 4v CABG (11/21/23), carotid stenosis, recent ZOFIA resulting in ESRD on iHD, moderate MR, post op Afib and DVT on Eliquis, HFrEF/ischemic cardiomyopathy (35%), DM2, and recent serratia pneumonia who was admitted 01/22 with hypoxia and bilateral pleural effusions from acute rehab ([facility]). Of note he had an extensive hospitalization 11/12 - 12/24 after CABG done for NSTEMI, course was complicated by ZOFIA requiring HD (currently on HD MWF), HFrEF (LVEF 35%), aspiration pneumonia with Serratia requiring bronchoscopy x2 for mucous plugging, and recurrent pleural effusions due to volume overload with thoracentesis x3 (12/04, 12/11/ 12/21). Had barium swallow showing laryngeal and vocal cord penetration without aspiration 12/19. He was transferred to [facility] 12/24-01/10 and then to Rehab hospital. At rehab hospital per notes a thoracentesis was being considered after a CXR 01/19 showed bilateral pleural effusions. He presents with hypoxia from acute rehab. CTA chest done in ED showed bilateral pleural effusions similar on the right but significantly increasedon the left and concerning for loculated / complex effusion along with evidence of pneumonia. Started on Ceftriaxone. Labs consistent with ESRD, also BNP elevated to 18,500. He reports ongoing dyspnea, cough, malaise, and fatigue. He complains of sternal pain when he coughs along with some left sided chest discomfort as well. He denies any recent fevers'. S/p thoracentesis here on 01/23 and 01/24 (R and L), Pulmonology following, CTS also consulted and on 01/26 completed non-excisional debridementof MSI, pt received PRBC yesterday, O2 requirements being monitored, pt to d/c to [facility] this evening (discharge order and summary written); Low Potassium diet ordered, pt tolerating 26-50 and 76-100% pe r chart review Nutrition Related Findings: +BS; nonpitting generalized edema; A&Ox3; medications and labs reviewed (SCr (5.61), recent hemoglobin a1c 6.4% Wound Type: None Current Nutrition Therapies: Adult diet Regular; Low Potassium (Less than 3000 mg/day) Current Oral Intake Average Meal Intake: 26-50%, 76-100% Average Supplements Intake: Unable to assess (pt ordered Nepro) Anthropometric Measures: Height: 177.8 cm (5' 10) Current Body Weight: 62.2 kg (137 lb 2 oz) (01/27 weight per chart) Weight Source: Not Specified Admission Body Weight: 62.4 kg (137 lb 9.1 oz) Usual Body Weight: (at mercy of weights from prior admit (largely ranged, likely skewed)) Platter Body Weight (lbs) (Calculated): 166 lbs Platter Body Weight (Kg) (Calculated): 75 kg % Platter Body Weight (Calculated): 82.9 % BMI (kg/m2) (Calculated): 19.7 Weight Adjustment For: No Adjustment BMI Categories: (Mid abdomen: NHSW d/t infection) Nutrition Interventions: Nutrition Education/Counseling: No recommendation at this time Neeta Bray RD * Lisandra Crespo RN - 01/30/2024 10:33 AM EDT Patient Name: Jose John Patient : 1945 Acct: [id number] Date of Admission: 01/22/2024 Room/Bed: [facility] A Code Status: Full Code Allergies: Allergies Allergen Reactions Lisinopril Wheezing Penicillins Anaphylaxis Sulfa Antibiotics Anaphylaxis Levofloxacin Nausea Only Diagnosis: Patient Active Problem List Diagnosis Unstable angina ([facility]) ([facility]) Coronary artery disease Multi-vessel coronary artery stenosis Carotid artery bruit Carotid arterial disease ([facility]) NSTEMI (non-ST elevated myocardial infarction) ([facility]) CKD (chronic kidney disease) stage 4, GFR 15-29 ml/min ([facility]) Cardiomyopathy, ischemic S/P CABG (coronary artery bypass graft) Severe malnutrition ([facility]) ([facility]) Shortness of breath Treatment: Hemodialysis 1:1 Priority: Routine Location: Bedside Diabetic: Yes NPO: No Isolation Precautions: droplet Consent for Treatment Verified: Yes Blood Consent Verified: Not Applicable ICEBOAT: Identify, Consent, Equipment, HepB Status, Orders Complete, Access Verified, Timeliness Second Clinician Verifying: Juan Ramon Pitts Rn Time out performed prior to access at 0938 Report Received from Primary RN at 0810 Primary RN (First Initial, Last Name, Title): Juan Ramon Pitts Rn Incapacitated Nurse Education Completed: Yes HBsAg ONLY: Date Drawn: 01/17/2024 Results: Negative HBsAb: Date Drawn: 01/17/2024 Results: Susceptible <10 Order Dialyzer: Revaclear 300 Na+ Modeling: Not Applicable Dialysate Temperature (C): 36 Blood Flow Rate (BFR): 400 Dialysate Flow Rate (DFR): 600 Access to be Utilized Access: Tunneled Catheter Location: Internal Jugular Side: Left Needle gauge: Not Applicable + Bruit/Thrill: Not Applicable First Use X-ray Verified: Not Applicable OK to use line order: Not Applicable Site Assessment: Signs and Symptoms of Infection/Inflammation: None If yes: Not Applicable Dressing: Dry and Intact Site Prep: Medical Aseptic Technique Dressing Changed this Treatment: yes If yes, by whom: Linda MILLS Date of Last Dressing Change: 01/30/[address]?: Yes Red Alcohol Caps in place?: Yes Gauze Dressing?: No Non-Dialysis Use?: No Comment: Flows: Good and Patent If access problem, who was notified: Pre and Post-Assessment Patient Vitals for the past 8 hrs: Level of Consciousness Oriented X Heart Rhythm O2 Device Bilateral Breath Sounds Skin Color Skin Condition/Temp Abdomen Inspection Bowel Sounds (All Quadrants) Generalized Edema Pain Interventions 01/30/24 0800 -- -- -- -- Diminished Ecchymosis Warm;Dry Soft;Nondistended Active Non-pitting -- 01/30/24 0925 Alert (0) 3 Regular Nasal cannula Diminished [place] Dry;Warm Soft;Rounded Active -- -- 01/30/24 1302 Alert (0) 3 Regular Nasal cannula Diminished [place]win Warm;Dry Soft;Rounded Active -- Repositioned Labs Lab Results Component Value Date/Time WBC 9.1 01/30/2024 0605 HGB 8.8 (L) 01/30/2024 0605 HGB 9.6 12/04/2023 0012 HCT 28.0 (L) 01/30/2024 0605 PLT 249 01/30/2024 0605 NA 135 01/30/2024 0605 K 4.0 01/30/2024 0605 CL 99 01/30/2024 0605 CO2 29 01/30/2024 0605 BUN 55 (H) 01/30/2024 0605 CREATININE 5.61 (H) 01/30/2024 0605 CALCIUM 8.2 (L) 01/30/2024 0605 PHOS 3.6 01/29/2024 0443 IV Drips and Rate/Dose Safety - Before each treatment: Dialysis Machine No.: [id number] RO Machine Number: [id number] Dialyzer Lot No.: [id number] Tubing Lot Number: [id number] All Connections Secure: Yes Venous Parameters Set: Yes Arterial Parameters Set: Yes NS Bag: Yes Saline Line Double Clamped: Yes Dialyzer: Revaclear 300 Prime Volume (mL): 200 mL RO Machine Number: [id number] RO Machine Log Sheet Completed: Yes Machine Alarm Self Test: Completed, Passed (937) (01/30/24937) Air Foam Detector: Tested, Proper Function Extracorporeal Circuit Tested for Integrity: Yes Machine Conductivity: 14.0 Manual Conductivity: 13.6 Manual Ph: 7.4 Bleach Test (Neg): Yes Bath Temperature: 36 C (96.8 F) Conductivity Meter Serial #: [id number] Machine Functioning Alarm Free? Yes Dialysis Bath: K+ (Potassium): 3 Ca+ (Calcium): 2.5 Na+ (Sodium): 138 HCO3 (Bicarb): 37 Bicarbonate Concentrate Lot No.: [id number] Acid Concentrate Lot No.: [id number] Chlorine Testing - Before each treatment and every 4 hours: Time On: 0952 Time Off: 1252 Treatment Goal: 2L Weight Height: 177.8 cm (5' 10) (01/24/24 0937) Weight: 62.2 kg (137 lb 2 oz) (01/28/24 1630) BMI (Calculated): 19.68 (01/28/24 1630) 1st check: less than 0.1 ppm at: 0933 2nd check: less than 0.1 ppm at: 1137 3rd check: Not Applicable (if greater than 0.1 ppm, then check every 30 minutes from secondary) Access Flows and Pressures Patient Vitals for the past 8 hrs: Blood Flow Rate (mL/min) Ultrafiltration Rate (ml/hr) Arterial Pressure (mmHg) Venous Pressure (mmHg) TMP DFR Access Visible Intra-Hemodialysis Comments 01/30/24 0952 200 mL/min 830 ml/hr 70 mmHg 50 mmHg 70 600 Yes treatment started, lines secure, calllight within patient and he's aware on how to use 01/30/24 1000 400 mL/min 830 ml/hr -170 mmHg 160 mmHg 80 600 Yes bfr to 400 01/30/24 1015 400 mL/min 830 ml/hr -200 mmHg 180 mmHg 80 600 Yes pt tolerating treatment well, uf removal 345ml 01/30/24 1030 400 mL/min 830 ml/hr -210 mmHg 170 mmHg 80 600 Yes uf removal 535, physician at bedside 01/30/24 1045 400 mL/min 830 ml/hr -210 mmHg 170 mmHg 80 600 Yes uf removal 741ml , pt resting 01/30/24 1100 400 mL/min 830 ml/hr -210 mmHg 180 mmHg 70 600 Yes goal reduced to 2000ml due to bp drop, uf removal 560 01/30/24 1115 400 mL/min 830 ml/hr -220 mmHg 170 mmHg 70 600 Yes uf removal 1084, pt resting with eyes closed 01/30/24 1130 400 mL/min 200 ml/hr -220 mmHg 170 mmHg 60 600 Yes goal reduced to 1500, pt alert, ufremvoal 1238 01/30/24 1141 -- -- -- -- -- -- -- bp recheck 01/30/24 1145 400 mL/min 200 ml/hr -210 mmHg 170 mmHg 70 600 Yes uf remvoal 1281, bicarb changed, 13.6 conductivity, 7.4ph, pt resting 01/30/24 1200 400 mL/min 200 ml/hr -200 mmHg 160 mmHg 70 600 Yes pt alert, uf removal 1343 01/30/24 1215 400 mL/min 200 ml/hr -200 mmHg 170 mmHg 70 600 Yes pt tolerating treatment well, uf removal 1376 01/30/24 1230 400 mL/min 200 ml/hr -200 mmHg 170 mmHg 70 600 Yes 1430 uf removal , pt resting 01/30/24 1245 400 mL/min 200 ml/hr -200 mmHg 170 mmHg 70 600 Yes 1478 uf removal , pt resting 01/30/24 1252 250 mL/min -- -- -- -- 600 -- treatment complete, uf removal 1500 Vital Signs Patient Vitals for the past 24 hrs: BP Temp Temp src Pulse Resp SpO2 01/30/24 1302 142/66 36.9 C (98.4 F) -- 83 16 97 % 01/30/24 1252 102/53 -- -- 82 -- -- 01/30/24 1245 110/54 -- -- 84 -- -- 01/30/24 1230 129/69 -- -- 88 -- -- 01/30/24 1215 123/67 -- -- 86 -- -- 01/30/24 1200 (!) 113/48 -- -- 87 -- -- 01/30/24 1145 103/54 -- -- 83 -- -- 01/30/24 1141 113/55 -- -- 83 -- -- 01/30/24 1130 (!) 92/41 -- -- 84 -- -- 01/30/24 1115 107/60 -- -- 81 -- -- 01/30/24 1100 97/52 -- -- 81 -- -- 01/30/24 1045 111/57 -- -- 83 -- -- 01/30/24 1030 126/64 -- -- 88 -- -- 01/30/24 1015 135/65 -- -- 83 -- -- 01/30/24 1000 141/63 -- -- 86 -- -- 01/30/24 0952 138/66 -- -- 85 -- -- 01/30/24 0925 124/58 37 C (98.6 F) -- 89 16 (!) 89 % 01/30/24 0731 -- -- -- 86 18 (!) 87 % 01/30/24 0610 155/85 36.4 C (97.6 F) Temporal 81 16 92 % 01/30/24 0203 149/77 36.4 C (97.5 F) Temporal 79 17 95 % 01/29/24 2204 157/77 36.5 C (97.7 F) Temporal 88 17 97 % 01/29/24 1744 140/76 36.4 C (97.5 F) Temporal 88 16 94 % 01/29/24 1526 -- -- -- 78 18 95 % 01/29/24 1518 -- -- -- 76 16 96 % 01/29/24 1512 128/72 36.7 C (98.1 F) Temporal 77 16 97 % Post-Dialysis Arterial Catheter Locking Solution: Heparin (1000units:1ml) Volume (ml): 1.9 Venous Catheter Locking Solution: Heparin (1000units:1ml) Volume (ml): 2.0 Post-Treatment Procedures: Catheter capped, clamped and heparinized x 2 ports Machine Disinfection Process: Exterior Machine Disinfection, Acid/Vinegar Clean, Heat Disinfect Rinseback Volume (mL): 300 mL Total Liters Processed (L/min): 65.4 L/min Dialyzer Clearance: Lightly streaked Hemodialysis Intake (ml): 500 ml Hemodialysis Output (ml): 1500 ml NET Removed (ml): 1000 ml Tolerated Treatment: Fair Interventions Taken: Ultrafiltration goal decreased Patient Response to Treatment: stable Physician Notified: Yes Patient Disposition: Other (Comment) (remain in room) Charge: $ IP Hemodialysis Charge: Hemodialysis Provider Notification Provider Notification Reason for Communication: Critical lab value Provider Name: Dr. Duvall Provider Role: Hospitalist Method of Communication: Secure chat Response: See orders Notification Time: 1740 Reason for Communication: Critical lab value Provider Role: Hospitalist Method of Communication: Secure chat Response: See orders Notification Time: 1740 Handoff complete and report given to Primary RN at 1308 Primary RN (First Initial, Last Name, Title): Juan Ramon Pitts Rn Education Person Educated: Patient Knowledge Base: Minimal Barriers to Learning?: None Preferred method of Learning: Oral Topic(s): Emergency, Access Care, Signs and Symptoms of Infection, Fluid Management, and Procedural Teaching Tools: Explanation Response to Education: Verbalized Understanding * Nazanin Smith MD - 01/30/2024 9:58 AM EDT Hospitalist Progress Note 01/30/2024 9:58 AM [phone]: Please page me for patient care issues. [phone]: Please page [facility] night Hospitalist for any issues. Subjective: Admit Date: 01/22/2024 PCP: OLENA GABRIEL Room#: W4-438/W4-438 A Interval History: Jose is a 78 y.o. male presented with SOB. Presented with chest pain, shortness of breath. CXRSmall right and moderate left pleural effusions, increased on the left, BNP 69650. Past history of ESRD, on HD three times weekly. D-Dimer elevated, CTA neg for PE, findings suggestive of Infiltrates, Pro calcitonin mildly elevated, pending blood cultures. Admitted for further evaluation and management. Nephrology following IR guided Thoracentesis, left side on 01/23 with removal of 1400 mL, scheduled for right side with removal of 400 mL of clear yellow fluid on 01/24 Pulmonology following IV Ceftriaxone PT/OT recommends IP rehab Geriatrics seen the patient, appreciated CT surgery seen the patient, appreciated 01/29 Patient seen and examined, I was wearing N95 mask throughout the patient encounter No new event overnight Patient feeling weak overall. No shortness of breath. On nasal cannula oxygen. Labs reviewed as below Hemoglobin stable Discussed with pharmacy regarding medication reconciliation Past Medical History: No past medical history on file. Adult diet Regular; Low Potassium (Less than 3000 mg/day) @[id number]@ Medications: amiodarone, 200 mg, Oral, Daily aspirin, 81 mg, Oral, Daily atorvastatin, 80 mg, Oral, Daily gabapentin, 100 mg, Oral, BID heparin, 5,000 Units, SubCUTAneous, 3 times per day insulin glargine, 7 Units, SubCUTAneous, Nightly insulin lispro, 0-18 Units, SubCUTAneous, BID WC And insulin lispro, 0-18 Units, SubCUTAneous, Nightly ipratropium-albuterol, 3 mL, Nebulization, BID iron sucrose, 200 mg, IntraVENous, Daily mometasone-formoterol, 2 puff, Inhalation, BID pantoprazole, 40 mg, Oral, qAM AC sertraline, 75 mg, Oral, Daily tamsulosin, 0.4 mg, Oral, Daily tiotropium, 2 puff, Inhalation, Daily LABS: CBC: Recent Labs 01/28/2444301/28/24 1840 01/29/2444201/30/24 0605 WBC 12.7* -- 12.3* 9.1 RBC 2.34* -- 2.96* 3.03* HGB 6.7* 8.8* 8.4* 8.8* HCT 21.1* 26.7* 26.6* 28.0* MCV 90.2 -- 89.9 92.4 RDW 15.9* -- 15.8* 16.2* PLT 229 -- 229 249 BMP: Recent Labs 01/27/24214701/29/2444201/30/24 0605 NA 131* 135 135 K 5.4* 4.2 4.0 CL 97* 99 99 CO2 24 31* 29 BUN 59* 38* 55* CREATININE 7.17* 4.08* 5.61* GLUCOSE 529* 167* 70 CALCIUM 8.3* 8.4 8.2* ANIONGAP 9 6 7 LIVER PROFILE: Recent Labs 01/27/24214701/29/2444201/30/24 0605 AST 31 31 32 ALT 63* 56* 47 BILITOT 0.3 0.7 0.4 ALKPHOS 85 69 62 PROT 5.9* 5.8* 5.6* PT/INR: No results for input(s): PROTIME, INR in the last 72 hours. CARDIAC ENZYMES: No results for input(s): TROPONINI in the last 72 hours. Procalcitonin: No results found for: PROCAL I reviewed: [x] laboratory results [x] radiographic results At the time of today's encounter. Pt was informed about the results. Objective: Vitals: BP 155/85 Pulse 86 Temp 36.4 C (97.6 F) (Temporal) Resp 18 Ht 5' 10 (1.778 m) Wt137 lb 2 oz (62.2 kg) SpO2 (!) 87% BMI 19.68 kg/m Pulse Ox: SpO2 Av.1 % Min: 87 % Max: 97 % Supplemental O2: O2 Flow Rate (L/min): 2 L/min General appearance: No apparent distress, HEENT: Eyes: No scleral icterus No pallor Oral: Tongue is semi-moist Cardiovascular: S1S2 heard, RRR Respiratory: Decrease breath sound both bases Left chest dialysis catheter seen Lower sternal area dressing is seen Abdomen: Soft, non-tender, non-distended with normal bowel sounds. Musculoskeletal: No obvious deformities seen Skin: No visible rashes or lesions. Neurology- no focal neurology,Awake alert Extremity- no peripheral edema both lower extremities Assessment Acute problems-- Acute hypoxic respiratory failure with shortness of breath Paranoid/confused Diabetes mellitus with hyperglycemia Malnutrition unspecified 5 Acute on chronic anemia 6. 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 Plan ID stewardship recommending to discontinue antibiotics, completed 5-day course Nephrology consult following Status post paracentesis Pulmonary, geriatrics consult following and appreciated Seen by CTS surgery Hemoglobin improved post blood transfusion Discussed with pharmacy, meds reconciled DC to inpatient rehab today Overall prognosis guarded Follow-up with PCP, nephrology, pulmonary On DVT/ GI prophylaxis Labs ordered for AM Patient was informed about all work up and treatment plan Discussed with nursing staff Extended Emergency Contact Information Primary Emergency Contact: Deepti John (POA) Mobile Relation: Spouse Secondary Emergency Contact: Juan Manuel John Mobile Relation: Son Preferred language: Romanian Pressing Machine Operator needed? No Advance Directive: Full Code Anticipated Discharge -inpatient rehab Nazanin Smith MD,MD Division of Hospitalist Medicine Inpatient Medical Services PAGER: [phone] * Elvie Johnson APRN - INTEGRATION ENGINEER - 01/29/2024 2:05 PM EDT [facility] Geriatric Medicine Inpatient Consult Service Admission Date: 01/22/2024 Assessment Principal Problem: Shortness of breath Active Problems: Severe malnutrition (CMS/HCC) (HCC) Plan Acute Encephalopathy --Waxing/waning --Etiology likely multifactorial related to acute on chronic hypoxemic respiratory failure, hospital environment, advanced age, infection, medication side effects --Continue to treat acute and underlying infections per primary team --If agitated, assess for and consider treating for pain -- med recs as below --QTc= 444 --[place] PRN Seroquel for ONLY if danger to self/others/treatment and not otherwise redirectable--Received one dose last night at 2044 --Continue scheduled melatonin at --Monitor for constipation/urinary retention - last BM 01/27 --Continue to involve family/NOK in conversations regarding medical decision making and discharge planning --Encourage PO intake, time up in chair, family visits, supervised ambulation, and sleep hygiene Depression --Prior to admission at facility, patient was receiving mirtazapine 15 mg nightly, reportedly not on sertraline prior to admission --Recommend discontinuation of the Sertraline and change to mirtazapine 15mg nightly, if wanting tokeep patient on Sertraline would recommend at least decreasing dose to 50mg Debility --Related to physical deconditioning, multiple transitions of care, acute illness --Continue PT/OT as able while inpatient --Anticipate d/c to inpatient rehab for ongoing daily PT/OT Follow-up: 1-2 days Subjective Chief Complaint: Patient presents with Shortness of Breath Pt [facility] eff[facility]. Pt states he has 3/10 left side chest pain . Hx ofCABG in November of this year. . Geriatrics consulted for Confused, paranoid, please evaluate HPI- The patient is new to me but seen by the Geriatric Inpatient Consult team. 78 y.o. year-old male [facility] and shortness of breath. Diagnosed with acute hypoxic respiratory failure with shortness of breath. Started on levofloxacin. Hospital course complicated by delirium, paranoia. Seen by pulmonology and treated for pneumonia and started on steroids. Seen by cardiothoracic surgery for wound dehiscence, s/p CABG on 11/21/2023. Interval History: Remains on telemetry. Per review of MAR received PRN Seroquel x1 at 2044 Patient reports he is tired today, appetite is not too good, denies pain, reports that his 55th anniversary with his is in the next few days, he knows that he is currently at the hospital at this time. Therapy recommendations: Seen by PT today- recommending IP Rehab Review of Systems Constitutional: Positive for activity change and fatigue. Respiratory: Positive for cough. Negative for shortness of breath. Gastrointestinal: Negative for constipation and nausea. Musculoskeletal: Negative for arthralgias. Neurological: Positive for dizziness (with positional changes). Negative for headaches. Psychiatric/Behavioral: Positive for confusion and sleep disturbance. Negative for hallucinations. Objective BP 104/53 (BP Location: Right arm, Patient Position: Lying) Pulse 87 Temp 36.3 C (97.3 F) (Temporal) Resp 20 Ht 5' 10 (1.778 m) Wt 137 lb 2 oz (62.2 kg) SpO2 94% BMI 19.68 kg/m Intake/Output Summary (Last 24 hours) at 01/29/2024 1405 Last data filed at 01/28/2024 1940 Gross per 24 hour Intake 616.25 ml Output 2600 ml Net -1983.75 ml Wt Readings from Last 3 Encounters: 01/28/24 137 lb 2 oz (62.2 kg) 12/25/23 137 lb 5.6 oz (62.3 kg) Current Facility-Administered Medications: acetaminophen (Tylenol) tablet 650 mg, 650 mg, Oral, q6h PRN, Jaleel Duvall MD, 650 mg at 01/24/242018 amiodarone (Pacerone) tablet 200 mg, 200 mg, Oral, Daily, Jaleel Duvall MD, 200 mg at 01/29/24 0951 aspirin chewable tablet 81 mg, 81 mg, Oral, Daily, Jaleel Duvall MD, 81 mg at 01/29/24 0951 atorvastatin (Lipitor) tablet 80 mg, 80 mg, Oral, Daily, Jaleel Duvall MD, 80 mg at 01/29/24950 dextrose 5 % infusion, 100 mL/hr, IntraVENous, PRN, Jaleel Duvall MD dextrose 50 % solution 12.5 g, 12.5 g, IntraVENous, PRN, Jaleel Duvall MD gabapentin (Neurontin) capsule 100 mg, 100 mg, Oral, BID, Jaleel Duvall MD, 100 mg at 01/29/24 0951 glucagon (human recombinant) injection 1 mg, 1 mg, IntraMUSCular, PRN, Jaleel Duvall MD glucose oral gel 15 g, 15 g, Oral, PRN, Jaleel Duvall MD heparin injection 1,900 Units, 1,900 Units, IntraCATHeter, PRN, Kaushal Santiago MD, 1,900 Units at 01/28/241945 heparin injection 2,000 Units, 2,000 Units, IntraCATHeter, PRN, Kaushal Santiago MD, 2,000 Units at 01/28/241945 heparin injection 5,000 Units, 5,000 Units, SubCUTAneous, 3 times per day, Jaleel Duvall MD, 5,000 Units at 01/29/24636 insulin glargine (Lantus) injection 7 Units, 7 Units, SubCUTAneous, Nightly, Jaleel Duvall MD, 7 Units at 01/28/242045 Insulin Lispro (Humalog) injection 0-18 Units, 0-18 Units, SubCUTAneous, BID WC, 3 Units at 01/29/24 0959 AND Insulin Lispro (Humalog) injection 0-18 Units, 0-18 Units, SubCUTAneous, Nightly, Jaleel Duvall MD, 6 Units at 01/28/242044 ipratropium-albuterol (Duo-Neb) 0.5-2.5 mg/3 mL nebulizer solution 3 mL, 3 mL, Nebulization, TID PRN, Jaleel Duvall MD ipratropium-albuterol (Duo-Neb) 0.5-2.5 mg/3 mL nebulizer solution 3 mL, 3 mL, Nebulization, BID, Jaleel Duvall MD, 3 mL at 01/29/24 0849 [START ON 01/30/2024] iron sucrose (Venofer) 200 mg in sodium chloride 0.9 % 100 mL IVPB, 200 mg, IntraVENous, Daily, Argelia Khalil DO melatonin tablet 3 mg, 3 mg, Oral, Nightly PRN, Yolanda Shirlene Piero, MANAGER OF PROJECT MANAGEMENT - INTEGRATION ENGINEER, 3 mg at 01/28/242044 mometasone-formoterol (Dulera 100) 100-5 MCG/ACT inhaler 2 puff, 2 puff, Inhalation, BID, Arun Lancaster MD, 2 puff at 01/29/24 0953 pantoprazole (ProtoNix) EC tablet 40 mg, 40 mg, Oral, qAM AC, Jaleel Duvall MD, 40 mg at 01/29/24 0645 QUEtiapine (SEROquel) tablet 12.5 mg, 12.5 mg, Oral, q8h PRN, Ursula Hubbard MD, 12.5 mg at 01/28/242044 sertraline (Zoloft) tablet 75 mg, 75 mg, Oral, Daily, Ursula Hubbard MD, 75 mg at 01/29/24 0954 sodium chloride 0.9 % infusion, 250 mL/hr, IntraVENous, PRN, Jaleel Duvall MD tamsulosin (Flomax) 24 hr capsule 0.4 mg, 0.4 mg, Oral, Daily, Jaleel Duvall MD, 0.4 mg at 01/29/24 0951 tiotropium (Spiriva Respimat) 2.5 MCG/ACT inhaler 2 puff, 2 puff, Inhalation, Daily, Arun Lancaster MD, 2 puff at 01/29/24 0954 Physical Exam Vitals reviewed. Constitutional: No acute distress, resting in bed, easily awakens to verbal stimuli Psych: Mood and affect Appropriate. Fair eye contact. Cooperative with exam. Cardiovascular: Regular rate and rhythm, no murmur, no BLE edema Pulmonary/Chest: Clear to auscultation anteriorly, normal respiratory effort, no coughing noted, nasal cannula in place Abdominal: Soft, not distended, no tenderness to palpation, BS present, Neurological: alert, attentive, speech is clear and appropriate , oriented x date, month, year, day, place, and self, follows commands Musculoskeletal: Gait: assessment deferred Skin: warm and dry, no visible rashes or wounds Labs and Imaging: Recent Results (from the past 24 hour(s)) POCT glucose meter Collection Time: 01/28/24 4:29 PM Result Value Ref Range Glucose 295 (H) 70 - 100 mg/dL Prepare RBC: 1 Units Collection Time: 01/28/24 4:46 PM Result Value Ref Range PRODUCT CODE [id number] Unit Number [id number] Unit ABO A Unit RH POS Crossmatch interpretation COMP Dispense Status Transfused Blood Expiration Date [id number] Product Blood Type 6200 Unit Volume 300 mL Hemoglobin and hematocrit, blood Collection Time: 01/28/24 6:40 PM Result Value Ref Range Hemoglobin 8.8 (L) 13.0 - 18.0 g/dL Hematocrit 26.7 (L) 40.0 - 52.0 % POCT glucose meter Collection Time: 01/28/24 8:33 PM Result Value Ref Range Glucose 270 (H) 70 - 100 mg/dL CBC Collection Time: 01/29/24 4:43 AM Result Value Ref Range Auto WBC 12.3 (H) 3.6 - 10.7 10*3/uL RBC 2.96 (L) 4.40 - 5.90 10*6/uL Hemoglobin 8.4 (L) 13.0 - 18.0 g/dL Hematocrit 26.6 (L) 40.0 - 52.0 % MCV 89.9 77.0 - 99.0 fL MCH 28.4 26.0 - 34.0 pg MCHC 31.6 30.5 - 36.0 % RDW 15.8 (H) 11.5 - 15.0 % Platelets 229 140 - 440 10*3/uL MPV 9.7 9.0 - 12.7 fL Comprehensive metabolic panel Collection Time: 01/29/24 4:43 AM Result Value Ref Range SODIUM 135 135 - 145 mmol/L POTASSIUM 4.2 3.5 - 5.1 mmol/L CHLORIDE 99 98 - 107 mmol/L CARBON DIOXIDE 31 (H) 22 - 30 mmol/L ANION GAP 6 3 - 13 mmol/L UREA NITROGEN 38 (H) 9 - 20 mg/dL CREATININE 4.08 (H) 0.66 - 1.25 mg/dL GLUCOSE 167 (H) 70 - 100 mg/dL CALCIUM 8.4 8.4 - 10.4 mg/dL AST (SGOT) 31 15 - 46 U/L ALT 56 (H) 0 - 49 U/L ALKALINE PHOSPHATASE 69 38 - 126 U/L ALBUMIN 2.9 (L) 3.5 - 5.0 g/dL BILIRUBIN, TOTAL 0.7 0.2 - 1.3 mg/dL TOTAL PROTEIN 5.8 (L) 6.3 - 8.2 g/dL eGFR 14.4 (L) >60.0 mL/min/1.73m*2 Phosphorus Collection Time: 01/29/24 4:43 AM Result Value Ref Range PHOSPHORUS 3.6 2.5 - 4.5 mg/dL POCT glucose meter Collection Time: 01/29/24 8:02 AM Result Value Ref Range Glucose 174 (H) 70 - 100 mg/dL POCT glucose meter Collection Time: 01/29/24 9:54 AM Result Value Ref Range Glucose 155 (H) 70 - 100 mg/dL POCT glucose meter Collection Time: 01/29/24 12:54 PM Result Value Ref Range Glucose 145 (H) 70 - 100 mg/dL Lab Results Component Value Date TSH 1.786 11/15/2023 No results found for: [id number] Lab Results Component Value Date VITD25 16 (L) 11/16/2023 Reviewed: allergies, imaging, active problem lists, medications, and labs * Argelia Khalil, - 01/29/2024 1:36 PM EDT [facility] Progress Note SUBJECTIVE: Jose John is a 78 y.o. male with PMHX oif T2DM, essential HTN and ZOFIA on CKD4 presented to the hospital with worsening SOB. Patient seen this am, overall feeling better. He has decent appetite Some confusion-thought he was at a different hospital Medications Scheduled Meds:amiodarone, 200 mg, Oral, Daily aspirin, 81 mg, Oral, Daily atorvastatin, 80 mg, Oral, Daily gabapentin, 100 mg, Oral, BID heparin, 5,000 Units, SubCUTAneous, 3 times per day insulin glargine, 7 Units, SubCUTAneous, Nightly insulin lispro, 0-18 Units, SubCUTAneous, BID WC And insulin lispro, 0-18 Units, SubCUTAneous, Nightly ipratropium-albuterol, 3 mL, Nebulization, BID mometasone-formoterol, 2 puff, Inhalation, BID pantoprazole, 40 mg, Oral, qAM AC sertraline, 75 mg, Oral, Daily tamsulosin, 0.4 mg, Oral, Daily tiotropium, 2 puff, Inhalation, Daily Continuous Infusions: Prn Meds : PRN medications: acetaminophen, dextrose, dextrose, glucagon (rDNA), glucose, heparin, heparin, ipratropium-albuterol, melatonin, QUEtiapine, sodium chloride Home Meds: Current Facility-Administered Medications on File Prior to Encounter Medication Dose Route Frequency Provider Last Rate Last Admin [DISCONTINUED] GENERIC EXTERNAL MEDICATION Generic External Data Provider [DISCONTINUED] GENERIC EXTERNAL MEDICATION Generic External Data Provider [DISCONTINUED] GENERIC EXTERNAL MEDICATION Generic External Data Provider [DISCONTINUED] GENERIC EXTERNAL MEDICATION Generic External Data Provider Current Outpatient Medications on File Prior to Encounter Medication Sig Dispense Refill acetaminophen (Tylenol) 325 MG tablet Take 650 mg by mouth every 6 hours as needed for mild pain (1-3). amiodarone (Pacerone) 200 MG tablet Take 1 tablet (200 mg) by mouth daily. 0 aspirin 81 MG chewable tablet Chew 1 tablet (81 mg) daily. 0 atorvastatin (Lipitor) 80 MG tablet Take 1 tablet (80 mg) by mouth daily. 0 bisacodyl (Bisacodyl Laxative) 10 MG suppository Insert 10 mg into the rectum Daily as needed for constipation. carvedilol (Coreg) 3.125 MG tablet Take 3.125 mg by mouth in the morning and 3.125 mg in the evening. Take with meals. docusate sodium (Colace) 100 MG capsule Take 100 mg by mouth 2 times daily. gabapentin (Neurontin) 100 MG capsule Take 1 capsule (100 mg) by mouth 2 times daily. 0 Glucagon 1 MG/0.2ML solution Inject 1 mg into the shoulder, thigh, or buttocks as needed. Hypoglycemia glucose (Glutose) 40 % gel oral gel Take 15 g by mouth as needed for low blood sugar. Hypoglycemia hydrOXYzine HCl (Atarax) 25 MG tablet Take 12.5 mg by mouth 2 times daily as needed for itching. ipratropium-albuterol (Duo-Neb) 0.5-2.5 mg/3 mL nebulizer solution Take 3 mL by nebulization 3 times daily as needed for wheezing or shortness of breath. (Patient taking differently: Take 3 mL by nebulization every 6 hours as needed for wheezing or shortness of breath.) 0 isosorbide dinitrate (Isordil) 5 MG tablet Take 5 mg by mouth 3 times daily. Melatonin 3 MG capsule Take 6 mg by mouth Nightly. midodrine (Proamatine) 2.5 MG tablet Take 2.5 mg by mouth 3 times daily as needed. Prior to OT/PT Hold for SBP >120 mirtazapine (Remeron) 15 MG tablet Take 15 mg by mouth Nightly. ondansetron ODT (Zofran-ODT) 4 MG disintegrating tablet Take 4 mg by mouth every 6 hours as needed for nausea or vomiting. oxyCODONE (Oxaydo) 5 MG immediate release tablet Take 2.5 mg by mouth every 4 hours as needed for severe pain (7-10). pantoprazole (ProtoNix) 40 MG EC tablet Take 40 mg by mouth every morning (before breakfast). Do not crush, chew, or split. polyethylene glycol, PEG, 3350 (Miralax) 17 g packet Take 17 g by mouth daily. senna-docusate sodium (Senokot-S) 8.6-50 MG tablet Take 1 tablet by mouth in the morning and 1 tablet in the evening. sevelamer carbonate (Renvela) 800 MG tablet Take 800 mg by mouth in the morning and 800 mg at noon and 800 mg in the evening. Take with meals. Swallow tablet whole; do not crush, break, or chew.. simethicone (Mylicon) 80 MG chewable tablet Chew 160 mg 3 times daily. sodium chloride (PF) 0.9 % solution 9 mL with naloxone 0.4 MG/ML solution 0.4 mg Infuse 0.4 mg intoa venous catheter as needed (opioid reversal). [DISCONTINUED] insulin glargine (Lantus) 100 UNIT/ML injection Inject 7 Units under the skin Nightly. 0 [DISCONTINUED] omeprazole OTC (PriLOSEC OTC) 20 MG EC tablet Take 20 mg by mouth in the morning and20 mg in the evening. Take before meals. Do not crush, chew, or split.. [DISCONTINUED] sertraline (Zoloft) 50 MG tablet Take 1 tablet (50 mg) by mouth daily. 0 [DISCONTINUED] tamsulosin (Flomax) 0.4 MG 24 hr capsule Take 0.4 mg by mouth daily. OBJECTIVE Physical BP 104/53 (BP Location: Right arm, Patient Position: Lying) Pulse 87 Temp 36.3 C (97.3 F) (Temporal) Resp 20 Ht 1.778 m (5' 10) Wt 62.2 kg (137 lb 2 oz) SpO2 94% BMI 19.68 kg/m 24HR INTAKE/OUTPUT: Intake/Output Summary (Last 24 hours) at 01/29/2024 1336 Last data filed at 01/28/2024 1940 Gross per 24 hour Intake 616.25 ml Output 2600 ml Net -1983.75 ml General: NAD, alert Head: Atraumatic on anterior inspection Psych: appropriate Eyes: Lids symmetric Chest: bilateral vesicular breath sounds, + rales Cardiac: S1, S2 Abdomen: Nontender SKIN: dry Extremities: Trace lower extremity edema Data Last 3 CMP: Recent Labs 01/27/24 0601/27/248 01/29/24442 NA 134* 131* 135 K 5.1 5.4* 4.2 CL 100 97* 99 CO2 28 24 31* BUN 44* 59* 38* CREATININE 5.82* 7.17* 4.08* CALCIUM 8.3* 8.3* 8.4 PROT 6.0* 5.9* 5.8* BILITOT 0.4 0.3 0.7 ALKPHOS 69 85 69 AST 32 31 31 ALT 70* 63* 56* Last 3 CBC: Recent Labs 01/27/24 0620 01/28/24 0444 01/28/24 1840 01/29/24 0443 WBC 9.7 12.7* -- 12.3* RBC 2.51* 2.34* -- 2.96* HGB 7.2* 6.7* 8.8* 8.4* HCT 23.4* 21.1* 26.7* 26.6* MCV 93.2 90.2 -- 89.9 MCH 28.7 28.6 -- 28.4 MCHC 30.8 31.8 -- 31.6 RDW 16.1* 15.9* -- 15.8* PLT 253 229 -- 229 MPV 9.8 10.0 -- 9.7 ASSESSMENT Patient Active Problem List Diagnosis Date Noted Shortness of breath 01/23/2024 Severe malnutrition ([facility]) ([facility]) 12/07/2023 S/P CABG (coronary artery bypass graft) 11/21/2023 NSTEMI (non-ST elevated myocardial infarction) ([facility]) 11/19/2023 CKD (chronic kidney disease) stage 4, GFR 15-29 ml/min ([facility]) 11/19/2023 Cardiomyopathy, ischemic 11/19/2023 Coronary artery disease 11/17/2023 Multi-vessel coronary artery stenosis 11/17/2023 Carotid artery bruit 11/17/2023 Carotid arterial disease ([facility]) 11/17/2023 Unstable angina ([facility]) ([facility]) 11/15/2023 ASSESSMENT/PLAN: Jose John is a 78 y.o. male with PMHX oif T2DM, essential HTN and ZOFIA on CKD4 presented to the hospital with worsening SOB. We are consulted for ongoing dialysis management. ZOFIA on advanced CKD initiated on iHD 12/2023 progressing towards ESRD Anemia of CKD Tsat 13% CKD MBD Acute respiratory failure PLAN: -will continue iHD MWF while here Transfuse for Hg < 7, -needs IV Fe load -start today -see orders - Daily BMP, phos, Ca, albumin 2x weekly - no indication for phos binders, goal 3.5-5.5 - accurate I&O - monitor for renal recovery - dose meds for eGFR < 15 - Daily nephrocaps while on [employer] Argelia Khalil DO 01/29/2024 1:36 PM * Mark Anguiano APRN - INTEGRATION ENGINEER - 01/29/2024 1:26 PM EDT Images from the original note were not included. Cardiothoracic Surgery/CCM Progress Note PATIENT NAME: Jose John DATE: 01/29/24 HPI: 78 yo male with PMH of T2DM, HTN, CKD, TIA with no residual (approx 16 years ago), tobacco use (quit 20 years ago), macular degeneration, back surgery, and BPH. He is well known to our service, had aCABG x4 with Dr. Carlin on 11/21/23. His postop course was prolonged r/t ZOFIA on CKD requiring dialysis, respiratory failure 2/2 aspiration PNA, ICU delirium, and multiple thoracentesis r/t volume overload. He was discharged to [facility] on POD #34, was transferred to [facility]. He returned to [facility] ED on 01/22/24 with chest pain and SOB. Noted to have a bilateral pleural effusions, had 1.4L drained from left and 400 mL drained from right. Also treating for CAP with Ceftriaxone. CTS consulted for small dehiscence at distal MSI. Interval History: 01/29/24. Patient sitting up in chair, awake and alert. States he is feeling better, hoping to get back to rehab soon. Feels he was progressing well before he got sick and ended up back in the hospital. Midsternal incision debrided at bedside on 01/27/24. Review of Systems Constitutional: Positive for appetite change and fatigue. Negative for chills, diaphoresis and fever. Respiratory: Positive for cough. Negative for shortness of breath and wheezing. Cardiovascular: Negative for palpitations and leg swelling. Gastrointestinal: Negative for abdominal distention, abdominal pain, constipation, diarrhea, nauseaand vomiting. Neurological: Negative for dizziness and light-headedness. Objective: Last BM Date: 01/28/24 Vitals: BP: 104/53, MAP (mmHg): 70, BP Method: Automatic Heart Rate: 87 Resp: 20 Temp: 36.3 C (97.3 F), Temp Source: Temporal BMI (Calculated): 19.68 BMP: Recent Labs 01/27/24 0620 01/27/24 2148 01/29/24 0443 NA 134* 131* 135 K 5.1 5.4* 4.2 CL 100 97* 99 CO2 28 24 31* BUN 44* 59* 38* CREATININE 5.82* 7.17* 4.08* CALCIUM 8.3* 8.3* 8.4 PHOS -- -- 3.6 CBC: Recent Labs 01/27/24 0620 01/28/24 0444 01/28/24 1840 01/29/24 0443 WBC 9.7 12.7* -- 12.3* HGB 7.2* 6.7* 8.8* 8.4* HCT 23.4* 21.1* 26.7* 26.6* PLT 253 229 -- 229 MCV 93.2 90.2 -- 89.9 RDW 16.1* 15.9* -- 15.8* INR: No results for input(s): INR in the last 72 hours. Physical Exam Vitals reviewed. Constitutional: General: He is not in acute distress. Appearance: He is not ill-appearing or diaphoretic. Cardiovascular: Rate and Rhythm: Normal rate and regular rhythm. Pulses: Normal pulses. Heart sounds: No murmur heard. Pulmonary: Effort: Pulmonary effort is normal. Breath sounds: No wheezing, rhonchi or rales. Comments: On NC. Abdominal: General: There is no distension. Palpations: Abdomen is soft. Tenderness: There is no abdominal tenderness. Musculoskeletal: General: No swelling. Skin: General: Skin is warm and dry. Capillary Refill: Capillary refill takes less than 2 seconds. Findings: Bruising present. Comments: MSI well approximated until inferior portion. Small dressing intact, no drainage noted, no redness or swelling around site. Neurological: General: No focal deficit present. Mental Status: He is alert and oriented to person, place, and time. Assessment: Dehiscence of distal MSI Multivessel CAD s/p CABG Acute hypoxic respiratory failure CAP Bilateral pleural effusions ZOFIA on CKD on iHD Plan: Care per primary service. Wound Care consulted. -Dressing changes per their recommendations. Continue aspirin and statin. CT Surgery will continue to follow. * Ngozi Webb - 01/29/2024 12:19 PM EDT Images from the original note were not included. PHYSICAL THERAPY [facility] Treatment Note Name/MRN: Jose John ([id number]) Date of : 1945 Age: 78 y.o. Room/Bed: W4-438/W4-438 A Discharge Recommendation: IP Rehab Equipment Needed: No Prior Level of Function ADL Assistance: Independent Ambulation Assistance: Independent Transfer Assistance: Independent Assessment Pt requires min for bed mobility with elevated HOB, Min A with transfers and CGA ambulation. Pt demonstrates increased dizziness with ambulation requiring multiple sitting breaks. Dizziness subsided with sitting break. Pt progressing towards established PT goals, but none have been met at this time. PT recommending IPR at this time as pt is highly motivated and can tolerate 3 hours of therapy perday. Subjective Pt was found supine in bed and was agreeable to PT. Pt left sitting in chair and said that only wanted to sit for 15-20 minutes. Nurse notified. Pain: RN managing pain. Medical Precautions: Droplet Proper PPE donned/doffed in accordance with facility standards. Fall Risk: Chavez Fall Risk Score: 75 (High Risk) Precautions/Restrictions: fall risk. Overall Cognitive Status: WFL Overall Orientation Status: Oriented x4 Family/Caregiver Present: none Objective Bed Mobility Supine to sit: Min Assist Sit to supine: Min Assist HOB elevated ~ 70 degrees, with bed height elevated Min A for trunk elevation, pt able to state current sternal precautions. Transfers/Mobility Sit to stand: Min Assist Stand to sit: Min Assist From EOB x1, from chair x4 Min A for standing upright from walker Device(s) used: front wheeled walker Ambulation Ambulation 1 + 2 + 3 Assistive device(s) used: front wheeled walker Assist level: Contact Guard Distance (ft): 3' + 5' + 5' Quality of gait: equal step length, slow chirag, flexed posture, and heavy reliance on walker photographic aide followed with chair, 3 sitting breaks required due to increase in fatigue Exercises Hip Flexion: seated in chair 1x15 BLE Long arc quads: seated in chair 1x15 BLE Plan Continue acute PT per plan of care. Safety/Education Safety Safety Devices in place: All fall risk precautions in place, call light within reach, left in chair, chair alarm in place, gait belt, and nurse notified Restraints: No Education Education Given To: patient Education Provided: PT Role, PT Goals, Gait Training, Plan of Care, Home Exercise Program, Discharge Recommendations, and Benefits of Increasing Activity Education Method: Verbal Barriers to Learning: None Education Outcome: Verbalized Understanding Outcome Measures AM-PAC AM-PAC Inpatient Mobility Raw Score (No Stairs) : 13 JH-HLM JH-HLM Score: Walked 10 steps or more (i.e. walked to restroom) Goals Patient Stated Goal: to get stronger. Encounter Problems Encounter Problems (Active) Mobility Patient will ambulate 100 feet with modified independence and least restrictive device in order to improve safety and independence with mobility. (Progressing) Start: 01/25/24 Expected End: 02/22/24 Patient will ascend and descend 3 stairs with least restrictive device and modified independence inorder to safely negotiate home. (Not Addressed) Start: 01/25/24 Expected End: 02/22/24 Transfers Patient will perform bed mobility with independence and following sternal precautions in order to improve independence and prepare for out of bed mobility. (Progressing) Start: 01/25/24 Expected End: 02/22/24 Patient will complete sit to stand transfer with independence to none following sternal precautionsin order to improve safety and prepare for out of bed mobility. (Progressing) Start: 01/25/24 Expected End: 02/22/24 Therapy Time Individual Co-treatment Time In 1100 Time Out 1140 Minutes 40 Ngozi * Nazanin Smith MD - 01/29/2024 9:15 AM EDT Hospitalist Progress Note 01/29/2024 9:16 AM [id number]: Please page me for patient care issues. [phone]: Please page IMS night Hospitalist for any issues. Subjective: Admit Date: 01/22/2024 PCP: OLENA GABRIEL Room#: W4-438/W4-438 A Interval History: Jose is a 78 y.o. male presented with SOB. Presented with chest pain, shortness of breath. CXRSmall right and moderate left pleural effusions, increased on the left, BNP 82285. Past history of ESRD, on HD three times weekly. D-Dimer elevated, CTA neg for PE, findings suggestive of Infiltrates, Pro calcitonin mildly elevated, pending blood cultures. Admitted for further evaluation and management. Nephrology following IR guided Thoracentesis, left side on 01/23 with removal of 1400 mL, scheduled for right side with removal of 400 mL of clear yellow fluid on 01/24 Pulmonology following IV Ceftriaxone PT/OT recommends IP rehab Geriatrics seen the patient, appreciated CT surgery seen the patient, appreciated 01/28 Patient seen and examined, I was wearing N95 mask throughout the patient encounter No new event overnight Patient feeling weak overall. No shortness of breath. On nasal cannula oxygen. Labs reviewed as below Hemoglobin 8.4, creatinine 4.0 Past Medical History: No past medical history on file. Adult diet Regular; Low Potassium (Less than 3000 mg/day) @[id number]@ Medications: amiodarone, 200 mg, Oral, Daily aspirin, 81 mg, Oral, Daily atorvastatin, 80 mg, Oral, Daily gabapentin, 100 mg, Oral, BID heparin, 5,000 Units, SubCUTAneous, 3 times per day insulin glargine, 7 Units, SubCUTAneous, Nightly insulin lispro, 0-18 Units, SubCUTAneous, BID WC And insulin lispro, 0-18 Units, SubCUTAneous, Nightly ipratropium-albuterol, 3 mL, Nebulization, BID mometasone-formoterol, 2 puff, Inhalation, BID pantoprazole, 40 mg, Oral, qAM AC sertraline, 75 mg, Oral, Daily tamsulosin, 0.4 mg, Oral, Daily tiotropium, 2 puff, Inhalation, Daily LABS: CBC: Recent Labs 01/27/24 0620 01/28/24 0444 01/28/24 1840 01/29/24 0443 WBC 9.7 12.7* -- 12.3* RBC 2.51* 2.34* -- 2.96* HGB 7.2* 6.7* 8.8* 8.4* HCT 23.4* 21.1* 26.7* 26.6* MCV 93.2 90.2 -- 89.9 RDW 16.1* 15.9* -- 15.8* PLT 253 229 -- 229 BMP: Recent Labs 01/27/24 0620 01/27/24 2148 01/29/24 0443 NA 134* 131* 135 K 5.1 5.4* 4.2 CL 100 97* 99 CO2 28 24 31* BUN 44* 59* 38* CREATININE 5.82* 7.17* 4.08* GLUCOSE 297* 529* 167* CALCIUM 8.3* 8.3* 8.4 ANIONGAP 6 9 6 LIVER PROFILE: Recent Labs 01/27/24 0620 01/27/24 2148 01/29/24 0443 AST 32 31 31 ALT 70* 63* 56* BILITOT 0.4 0.3 0.7 ALKPHOS 69 85 69 PROT 6.0* 5.9* 5.8* PT/INR: No results for input(s): PROTIME, INR in the last 72 hours. CARDIAC ENZYMES: No results for input(s): TROPONINI in the last 72 hours. Procalcitonin: No results found for: PROCAL I reviewed: [x] laboratory results [x] radiographic results At the time of today's encounter. Pt was informed about the results. Objective: Vitals: BP (!) 169/84 Pulse 83 Temp 36.5 C (97.7 F) (Temporal) Resp 18 Ht 5' 10 (1.778 m) Wt 137 lb 2 oz (62.2 kg) SpO2 94% BMI 19.68 kg/m Pulse Ox: SpO2 Av.7 % Min: 93 % Max: 99 % Supplemental O2: O2 Flow Rate (L/min): 2 L/min General appearance: No apparent distress, HEENT: Eyes: No scleral icterus No pallor Oral: Tongue is semi-moist Cardiovascular: S1S2 heard, RRR Respiratory: Decrease breath sound both bases Left chest dialysis catheter seen Abdomen: Soft, non-tender, non-distended with normal bowel sounds. Musculoskeletal: No obvious deformities seen Skin: No visible rashes or lesions. Neurology- no focal neurology,Awake alert Extremity- no peripheral edema both lower extremities Assessment Acute problems-- Acute hypoxic respiratory failure with shortness of breath Paranoid/confused Diabetes mellitus with hyperglycemia Malnutrition unspecified 5 Acute on chronic anemia Chronic issues-- End-stage renal disease on hemodialysis Plan ID stewardship recommending to discontinue antibiotics, completed 5-day course Nephrology consult following Status post paracentesis Pulmonary, geriatrics consult following and appreciated Seen by CTS surgery Hemoglobin improved post blood transfusion On DVT/ GI prophylaxis Labs ordered for AM Patient was informed about all work up and treatment plan Discussed with nursing staff Extended Emergency Contact Information Primary Emergency Contact: Deepti John (POA) Mobile Relation: Spouse Secondary Emergency Contact: Juan Manuel John Mobile Relation: Son Preferred language: Romanian Pressing Machine Operator needed? No Advance Directive: Full Code Anticipated Discharge -Pending clinical course to inpatient rehab Nazanin Smith MD,MD Division of Hospitalist Medicine Inpatient Medical Services PAGER: [phone] * Chris Pacheco RN - 01/28/2024 4:56 PM EDT Patient Name: Jose John Patient : 1945 Acct: [id number] Date of Admission: 01/22/2024 Room[facility]Bed: [facility] A Code Status: Full Code Allergies: Allergies Allergen Reactions Lisinopril Wheezing Penicillins Anaphylaxis Sulfa Antibiotics Anaphylaxis Levofloxacin Nausea Only Diagnosis: Patient Active Problem List Diagnosis Unstable angina ([facility]) ([facility]) Coronary artery disease Multi-vessel coronary artery stenosis Carotid artery bruit Carotid arterial disease ([facility]) NSTEMI (non-ST elevated myocardial infarction) ([facility]) CKD (chronic kidney disease) stage 4, GFR 15-29 ml/min ([facility]) Cardiomyopathy, ischemic S/P CABG (coronary artery bypass graft) Severe malnutrition ([facility]) ([facility]) Shortness of breath Treatment: Hemodialysis 1:1 Priority: Routine Location: Bedside Diabetic: Yes NPO: No Isolation Precautions: Airborne Consent for Treatment Verified: Yes Blood Consent Verified: Yes ICEBOAT: Identify, Consent, Equipment, HepB Status, Orders Complete, Access Verified, Timeliness Second Clinician Verifying: Chad Diallo RN Time out performed prior to access at 1630. Report Received from Primary RN at 1600. Primary RN (First Initial, Last Name, Title): Chad Diallo RN Incapacitated Nurse Education Completed: Yes DE HBsAg ONLY: Date Drawn: January 17, 2024 Results: Negative HBsAb: Date Drawn: December 21, 2023 Results: Susceptible <10 Order Dialyzer: Revaclear 300 Na+ Modeling: Not Applicable Dialysate Temperature (C): 36 Blood Flow Rate (BFR): 400 Dialysate Flow Rate (DFR): 600 Access to be Utilized Access: Tunneled Catheter Location: Internal Jugular Side: Left Needle gauge: Not Applicable + Bruit/Thrill: Not Applicable First Use X-ray Verified: Not Applicable OK to use line order: Yes Site Assessment: Signs and Symptoms of Infection/Inflammation: None If yes: Not Applicable Dressing: Dry and Intact Site Prep: Medical Aseptic Technique Dressing Changed this Treatment: No If yes, by whom: NA - not changed today Date of Last Dressing Change: January 23, [address]?: Yes Red Alcohol Caps in place?: Yes Gauze Dressing?: No Non-Dialysis Use?: No Comment: Flows: Good and Patent If access problem, who was notified: Pre and Post-Assessment Patient Vitals for the past 8 hrs: Level of Consciousness Oriented X Heart Rhythm Respiratory Pattern O2 Device Bilateral Breath Sounds Skin Color Skin Condition/Temp Abdomen Inspection Bowel Sounds (All Quadrants) Generalized Edema Pre-Hemodialysis Comments 01/28/24 1630 Alert (0) 3 Regular Other (Comment) Nasal cannula Diminished Ecchymosis Warm;Dry Soft;Nondistended Active -- lines secure, test passed 01/28/241939 -- -- -- -- -- -- -- -- -- -- Non-pitting -- 01/28/241954 Alert (0) 3 Regular Other (Comment) Nasal cannula Diminished Ecchymosis Warm;Dry Soft;Nondistended Active -- -- Labs Recent Labs 01/28/2444301/28/24 184 WBC 12.7* -- HGB 6.7* 8.8* HCT 21.1* 26.7* PLT 229 -- Lab Results Component Value Date/Time WBC 12.7 (H) 01/28/2024443 HGB 8.8 (L) 01/28/2024 184 HGB 9.6 12/04/2023 0012 HCT 26.7 (L) 01/28/2024 1840 PLT 229 01/28/2024443 NA 131 (L) 01/27/20242147 K 5.4 (H) 01/27/20242147 CL 97 (L) 01/27/20248 CO2 24 01/27/20242147 BUN 59 (H) 01/27/20242147 CREATININE 7.17 (H) 01/27/20242147 CALCIUM 8.3 (L) 01/27/20242147 PHOS 4.4 01/07/2024 0341 Lab Results Component Value Date WBC 12.7 (H) 01/28/2024 HGB 8.8 (L) 01/28/2024 HGB 9.6 12/04/2023 HCT 26.7 (L) 01/28/2024 PLT 229 01/28/2024 NA 131 (L) 01/27/2024 K 5.4 (H) 01/27/2024 CL 97 (L) 01/27/2024 CO2 24 01/27/2024 BUN 59 (H) 01/27/2024 CREATININE 7.17 (H) 01/27/2024 GLUCOSE 529 (HH) 01/27/2024 CALCIUM 8.3 (L) 01/27/2024 PHOS 4.4 01/07/2024 IV Drips and Rate/Dose Safety - Before each treatment: Dialysis Machine No.: [id number] RO Machine Number: [id number] Dialyzer Lot No.: [id number] RO Machine Log Sheet Completed: Yes Machine Alarm Self Test: Completed, Passed (1629) (01/28/241629) Air Foam Detector: Tested, Proper Function, pH Reading Extracorporeal Circuit Tested for Integrity: Yes Machine Conductivity: 13.8 Manual Conductivity: 13.8 Manual Ph: 7.2 Bleach Test (Neg): Yes Bath Temperature: 36 C (96.8 F) Tubing Lot Number: [id number] Conductivity Meter Serial #: [id number] [employer] Secure: Yes Arterial Parameters Set: Yes Saline Line Double Clamped: Yes Air Foam Detector: Tested, Proper Function, pH Reading Prime Volume (mL): 200 mL Machine Functioning Alarm Free? Yes Chlorine Testing - Before each treatment and every 4 hours: Time On: 1639 Time Off: 1939 Treatment Goal: 2 Weight Height: 177.8 cm (5' 10) (01/24/24 0937) Weight: 62.2 kg (137 lb 2 oz) (01/28/241629) BMI (Calculated): 19.68 (06/24/24 1630) 1st check: less than 0.1 ppm at: 1630 2nd check: less than 0.1 ppm at: 1930 3rd check: Not Applicable (if greater than 0.1 ppm, then check every 30 minutes from secondary) Access Flows and Pressures Patient Vitals for the past 8 hrs: Blood Flow Rate (mL/min) Ultrafiltration Rate (ml/hr) Arterial Pressure (mmHg) Venous Pressure (mmHg) TMP DFR Access Visible Intra-Hemodialysis Comments 01/28/24 1640 250 mL/min 930 ml/hr -30 mmHg 10 mmHg 60 600 Yes TX initiated 01/28/24 1642 400 mL/min 930 ml/hr -90 mmHg 70 mmHg 70 600 Yes BFR increased 01/28/24 1645 400 mL/min 930 ml/hr -130 mmHg 100 mmHg 70 600 Yes Pt watching tv, lines secure,. blood started,UF 157ml 01/28/24 1700 400 mL/min 930 ml/hr -130 mmHg 100 mmHg 70 600 Yes Pt resting, No complaints , UF 310ml 01/28/24 1715 400 mL/min 930 ml/hr -140 mmHg 120 mmHg 70 600 Yes Pt resting, lines secure, UF 530ml 01/28/24 1730 400 mL/min 930 ml/hr -140 mmHg 130 mmHg 70 600 Yes Pt watching tv, lines secure, UF 800ml 01/28/24 1745 400 mL/min 930 ml/hr -140 mmHg 130 mmHg 70 600 Yes Pt watching tv, lines secure, UF 1000ml 01/28/24 1800 400 mL/min 930 ml/hr -170 mmHg 140 mmHg 70 600 Yes Pt watching tv, lines secure, UF 1200ml 01/28/24 1815 400 mL/min 1000 ml/hr -170 mmHg 140 mmHg 70 600 Yes Pt watching tv, UF 1450ml added 100ml NS flush to goal 01/28/24 1822 -- -- -- -- -- -- -- bicarb jug changed ph 7.2, conductivity 13.7 01/28/24 1830 400 mL/min 1000 ml/hr -180 mmHg 150 mmHg 70 600 Yes Pt drinking ensure, Lines secure,UF 1720ml 01/28/24 1845 400 mL/min 710 ml/hr -190 mmHg 150 mmHg 70 600 Yes Pt stated that he didnt feel good,decreased UF goal< Lines secure, UF 2015ml 01/28/24 1900 400 mL/min 710 ml/hr -190 mmHg 140 mmHg 60 600 Yes Pt resting, lines secure, UF 2135ml 01/28/24 1915 400 mL/min 710 ml/hr -190 mmHg 140 mmHg 70 600 Yes Pt resting, lines secure, UF 2290ml 01/28/24 1930 400 mL/min 710 ml/hr -190 mmHg 150 mmHg 60 600 Yes Pt resting, lines secure, UF 2470ml 01/28/24 1940 -- -- -- -- -- -- -- TX COMPLETED Vital Signs 1 No data found. 2 Patient Vitals for the past 24 hrs: BP Temp Temp src Pulse Resp SpO2 Weight 01/28/24 1955 146/71 37.2 C (99 F) -- 92 18 96 % -- 01/28/241939 121/67 -- -- 91 -- -- -- 01/28/241929 134/91 -- -- 91 -- -- -- 01/28/24 1915 118/61 -- -- 91 -- -- -- 01/28/24 1900 121/60 -- -- 91 -- -- -- 01/28/24 1845 138/67 -- -- 89 -- -- -- 01/28/24 1830 135/69 -- -- 92 -- -- -- 01/28/24 1815 135/73 -- -- 88 -- -- -- 01/28/24 1800 142/72 -- -- 87 -- -- -- 01/28/24 1745 160/73 37.2 C (99 F) -- 87 18 95 % -- 01/28/24 1730 143/80 -- -- 87 -- -- -- 01/28/24 1715 149/95 -- -- 83 -- -- -- 01/28/24 1700 147/77 36.7 C (98 F) -- 84 18 94 % -- 01/28/24 1645 150/79 -- -- 86 -- -- -- 01/28/24 1642 149/77 -- -- 86 -- -- -- 01/28/24 1640 158/77 -- -- 86 -- -- -- 01/28/24 1630 150/73 37.2 C (98.9 F) -- 87 18 93 % 62.2 kg (137 lb 2 oz) 01/28/24 1449 143/62 36.7 C (98 F) Temporal 87 18 99 % -- 01/28/24 1222 -- -- -- -- -- 95 % -- 01/28/24 1050 138/75 36.2 C (97.1 F) Temporal 79 20 96 % -- 01/28/24 0802 -- -- -- -- -- 94 % -- 01/28/24 0754 (!) 168/83 36.4 C (97.5 F) Temporal 86 18 93 % -- 01/28/24 0633 (!) 168/85 36.5 C (97.7 F) Temporal 86 20 94 % -- 01/28/24 0245 158/85 -- -- 89 -- -- -- 01/28/24 0213 (!) 167/86 -- -- 94 -- -- -- 01/28/24 0205 (!) 175/86 36.9 C (98.5 F) Temporal 93 18 95 % -- 01/27/24 2252 -- -- -- 101 18 95 % -- 01/27/24 2112 157/91 36.7 C (98.1 F) Temporal 99 18 94 % -- 3 Patient Vitals for the past 24 hrs: BP Temp Temp src Pulse Resp SpO2 Weight 01/28/24 1955 146/71 37.2 C (99 F) -- 92 18 96 % -- 01/28/24 194 121/67 -- -- 91 -- -- -- 01/28/24 1930 134/91 -- -- 91 -- -- -- 01/28/24 1915 118/61 -- -- 91 -- -- -- 01/28/24 1900 121/60 -- -- 91 -- -- -- 01/28/24 1845 138/67 -- -- 89 -- -- -- 01/28/24 1830 135/69 -- -- 92 -- -- -- 01/28/24 1815 135/73 -- -- 88 -- -- -- 01/28/24 1800 142/72 -- -- 87 -- -- -- 01/28/24 1745 160/73 37.2 C (99 F) -- 87 18 95 % -- 01/28/24 1730 143/80 -- -- 87 -- -- -- 01/28/24 1715 149/95 -- -- 83 -- -- -- 01/28/24 1700 147/77 36.7 C (98 F) -- 84 18 94 % -- 01/28/24 1645 150/79 -- -- 86 -- -- -- 01/28/24 1642 149/77 -- -- 86 -- -- -- 01/28/24 1640 158/77 -- -- 86 -- -- -- 01/28/24 1630 150/73 37.2 C (98.9 F) -- 87 18 93 % 62.2 kg (137 lb 2 oz) 01/28/24 1449 143/62 36.7 C (98 F) Temporal 87 18 99 % -- 01/28/24 1222 -- -- -- -- -- 95 % -- 01/28/24 1050 138/75 36.2 C (97.1 F) Temporal 79 20 96 % -- 01/28/24 0802 -- -- -- -- -- 94 % -- 01/28/24 0754 (!) 168/83 36.4 C (97.5 F) Temporal 86 18 93 % -- 01/28/24 0633 (!) 168/85 36.5 C (97.7 F) Temporal 86 20 94 % -- 01/28/24 0245 158/85 -- -- 89 -- -- -- 01/28/24 0213 (!) 167/86 -- -- 94 -- -- -- 01/28/24 0205 (!) 175/86 36.9 C (98.5 F) Temporal 93 18 95 % -- 01/27/24 2252 -- -- -- 101 18 95 % -- 01/27/24 2112 157/91 36.7 C (98.1 F) Temporal 99 18 94 % -- 4 Vitals: 01/28/24191401/28/24192901/28/24193901/28/241954 BP: 118/61 134/91 121/67 146/71 BP Location: Patient Position: Pulse: 91 91 91 92 Resp: 18 Temp: 37.2 C (99 F) TempSrc: SpO2: 96% Weight: Height: 5 Patient Vitals for the past 24 hrs: BP Temp Temp src Pulse Resp SpO2 Weight 01/28/241954 146/71 37.2 C (99 F) -- 92 18 96 % -- 01/28/241939 121/67 -- -- 91 -- -- -- 01/28/241929 134/91 -- -- 91 -- -- -- 01/28/241914 118/61 -- -- 91 -- -- -- 01/28/24 1900 121/60 -- -- 91 -- -- -- 01/28/24 1845 138/67 -- -- 89 -- -- -- 01/28/24 1830 135/69 -- -- 92 -- -- -- 01/28/24 1815 135/73 -- -- 88 -- -- -- 01/28/24 1800 142/72 -- -- 87 -- -- -- 01/28/24 1745 160/73 37.2 C (99 F) -- 87 18 95 % -- 01/28/24 1730 143/80 -- -- 87 -- -- -- 01/28/24 1715 149/95 -- -- 83 -- -- -- 01/28/24 1700 147/77 36.7 C (98 F) -- 84 18 94 % -- 01/28/24 1645 150/79 -- -- 86 -- -- -- 01/28/24 1642 149/77 -- -- 86 -- -- -- 01/28/24 1640 158/77 -- -- 86 -- -- -- 01/28/24 1630 150/73 37.2 C (98.9 F) -- 87 18 93 % 62.2 kg (137 lb 2 oz) 01/28/24 1449 143/62 36.7 C (98 F) Temporal 87 18 99 % -- 01/28/24 1222 -- -- -- -- -- 95 % -- 01/28/24 1050 138/75 36.2 C (97.1 F) Temporal 79 20 96 % -- 01/28/24 0802 -- -- -- -- -- 94 % -- 01/28/24 0754 (!) 168/83 36.4 C (97.5 F) Temporal 86 18 93 % -- 01/28/24 0633 (!) 168/85 36.5 C (97.7 F) Temporal 86 20 94 % -- 01/28/24 0245 158/85 -- -- 89 -- -- -- 01/28/24 0213 (!) 167/86 -- -- 94 -- -- -- 01/28/24 0205 (!) 175/86 36.9 C (98.5 F) Temporal 93 18 95 % -- 01/27/24 2252 -- -- -- 101 18 95 % -- 01/27/24 2112 157/91 36.7 C (98.1 F) Temporal 99 18 94 % -- 6 Post-Dialysis Arterial Catheter Locking Solution: Heparin (1000units:1ml) Volume (ml): 1.9 Venous Catheter Locking Solution: Heparin (1000units:1ml) Volume (ml): 2.0 Post-Treatment Procedures: Blood returned, Catheter capped, clamped and heparinized x 2 ports Machine Disinfection Process: Acid/Vinegar Clean, Heat Disinfect, Exterior Machine Disinfection Rinseback Volume (mL): 300 mL Total Liters Processed (L/min): 66.2 L/min Dialyzer Clearance: Lightly streaked Hemodialysis Intake (ml): 916 ml Hemodialysis Output (ml): 2600 ml Tolerated Treatment: Good Patient Response to Treatment: stable Interventions Taken: Ultrafiltration goal decreased Provider Notification Provider Notification Reason for Communication: Critical lab value Provider Name: Dr. Duvall Provider Role: Hospitalist Method of Communication: Secure chat Response: See orders Notification Time: 1740 Reason for Communication: Critical lab value Provider Role: Hospitalist Method of Communication: Secure chat Response: See orders Notification Time: 1740 Handoff complete and report given to Primary RN at 1999. Primary RN (First Initial, Last Name, Title): Shirlene Angel RN Education Person Educated: Patient Knowledge Base: Minimal Barriers to Learning?: None Preferred method of Learning: Oral Topic(s): Access Care, Signs and Symptoms of Infection, Fluid Management, Albumin, Procedural, Medications, Treatment Options, Potassium, Diet, and Transplant Teaching Tools: Explanation Response to Education: Verbalized Understanding * Rasta Rinaldi MD - 01/28/2024 11:35 AM EDT [facility] Progress Note SUBJECTIVE: Jose John is a 78 y.o. male with PMHX oif T2DM, essential HTN and ZOFIA on CKD4 presented to the hospital with worsening SOB. Patient seen this am, overall feeling better. Medications Scheduled Meds:amiodarone, 200 mg, Oral, Daily aspirin, 81 mg, Oral, Daily atorvastatin, 80 mg, Oral, Daily cefTRIAXone, 1,000 mg, IntraVENous, q24h gabapentin, 100 mg, Oral, BID heparin, 5,000 Units, SubCUTAneous, 3 times per day insulin glargine, 7 Units, SubCUTAneous, Nightly insulin lispro, 0-18 Units, SubCUTAneous, BID WC And insulin lispro, 0-18 Units, SubCUTAneous, Nightly ipratropium-albuterol, 3 mL, Nebulization, BID mometasone-formoterol, 2 puff, Inhalation, BID pantoprazole, 40 mg, Oral, qAM AC sertraline, 75 mg, Oral, Daily tamsulosin, 0.4 mg, Oral, Daily tiotropium, 2 puff, Inhalation, Daily Continuous Infusions: Prn Meds : PRN medications: acetaminophen, dextrose, dextrose, glucagon (rDNA), glucose, heparin, heparin, ipratropium-albuterol, QUEtiapine, sodium chloride Home Meds: Current Facility-Administered Medications on File Prior to Encounter Medication Dose Route Frequency Provider Last Rate Last Admin [DISCONTINUED] GENERIC EXTERNAL MEDICATION Generic External Data Provider [DISCONTINUED] GENERIC EXTERNAL MEDICATION Generic External Data Provider [DISCONTINUED] GENERIC EXTERNAL MEDICATION Generic External Data Provider [DISCONTINUED] GENERIC EXTERNAL MEDICATION Generic External Data Provider [DISCONTINUED] GENERIC EXTERNAL MEDICATION Generic External Data Provider [DISCONTINUED] GENERIC EXTERNAL MEDICATION Generic External Data Provider [DISCONTINUED] GENERIC EXTERNAL MEDICATION Generic External Data Provider [DISCONTINUED] GENERIC EXTERNAL MEDICATION Generic External Data Provider Current Outpatient Medications on File Prior to Encounter Medication Sig Dispense Refill amiodarone (Pacerone) 200 MG tablet Take 1 tablet (200 mg) by mouth daily. 0 aspirin 81 MG chewable tablet Chew 1 tablet (81 mg) daily. 0 atorvastatin (Lipitor) 80 MG tablet Take 1 tablet (80 mg) by mouth daily. 0 gabapentin (Neurontin) 100 MG capsule Take 1 capsule (100 mg) by mouth 2 times daily. 0 insulin glargine (Lantus) 100 UNIT/ML injection Inject 7 Units under the skin Nightly. 0 ipratropium-albuterol (Duo-Neb) 0.5-2.5 mg/3 mL nebulizer solution Take 3 mL by nebulization 3 times daily as needed for wheezing or shortness of breath. 0 omeprazole OTC (PriLOSEC OTC) 20 MG EC tablet Take 20 mg by mouth in the morning and 20 mg in the evening. Take before meals. Do not crush, chew, or split.. sertraline (Zoloft) 50 MG tablet Take 1 tablet (50 mg) by mouth daily. 0 tamsulosin (Flomax) 0.4 MG 24 hr capsule Take 0.4 mg by mouth daily. OBJECTIVE Physical BP 138/75 (BP Location: Right arm, Patient Position: Lying) Pulse 79 Temp 36.2 C (97.1 F) (Temporal) Resp 20 Ht 1.778 m (5' 10) Wt 62.4 kg (137 lb 9.6 oz) SpO2 96% BMI 19.74 kg/m 24HR INTAKE/OUTPUT: Intake/Output Summary (Last 24 hours) at 01/28/2024 1135 Last data filed at 01/28/2024 0845 Gross per 24 hour Intake 150 ml Output 75 ml Net 75 ml General: NAD, alert Head: Atraumatic on anterior inspection Psych: appropriate Eyes: Lids symmetric Chest: bilateral vesicular breath sounds, + rales Cardiac: S1, S2 Abdomen: Nontender SKIN: dry Extremities: Trace lower extremity edema Data Last 3 CMP: Recent Labs 01/26/24 0630 01/27/24 0620 01/27/24 2148 NA 134* 134* 131* K 4.4 5.1 5.4* CL 99 100 97* CO2 30 28 24 BUN 28* 44* 59* CREATININE 3.58* 5.82* 7.17* CALCIUM 8.3* 8.3* 8.3* PROT 6.0* 6.0* 5.9* BILITOT 0.3 0.4 0.3 ALKPHOS 63 69 85 AST 49* 32 31 ALT 90* 70* 63* Last 3 CBC: Recent Labs 01/26/24 0630 01/27/24 0620 01/28/24 0444 WBC 10.8* 9.7 12.7* RBC 2.48* 2.51* 2.34* HGB 7.1* 7.2* 6.7* HCT 23.1* 23.4* 21.1* MCV 93.1 93.2 90.2 MCH 28.6 28.7 28.6 MCHC 30.7 30.8 31.8 RDW 16.4* 16.1* 15.9* PLT 251 253 229 MPV 9.8 9.8 10.0 ASSESSMENT Patient Active Problem List Diagnosis Date Noted Shortness of breath 01/23/2024 Severe malnutrition (CMS/HCC) ([facility]) 12/07/2023 S/P CABG (coronary artery bypass graft) 11/21/2023 NSTEMI (non-ST elevated myocardial infarction) ([facility]) 11/19/2023 CKD (chronic kidney disease) stage 4, GFR 15-29 ml/min ([facility]) 11/19/2023 Cardiomyopathy, ischemic 11/19/2023 Coronary artery disease 11/17/2023 Multi-vessel coronary artery stenosis 11/17/2023 Carotid artery bruit 11/17/2023 Carotid arterial disease ([facility]) 11/17/2023 Unstable angina ([facility]) ([facility]) 11/15/2023 ASSESSMENT/PLAN: Jose John is a 78 y.o. male with PMHX oif T2DM, essential HTN and ZOFIA on CKD4 presented to the hospital with worsening SOB. We are consulted for ongoing dialysis management. ZOFIA on advanced CKD initiated on iHD 12/2023 progressing towards ESRD Anemia of CKD CKD MBD Acute respiratory failure PLAN: -will continue iHD MWF while here - can give 250 mg IV iron x4 when concerns for infection have been addressed. Transfuse for Hg <7 - Daily BMP, phos, Ca, albumin 2x weekly - no indication for phos binders, goal 3.5-5.5 - accurate I&O - monitor for renal recovery - dose meds for eGFR < 15 - Daily nephrocaps while on [employer] Rasta Rinaldi MD 01/28/2024 11:35 AM * Yolanda Harry APRN - INTEGRATION ENGINEER - 01/28/2024 9:11 AM EDT [facility] Inpatient Consult Service Admission Date: 01/22/2024 Assessment Principal Problem: Shortness of breath Active Problems: Severe malnutrition (CMS/HCC) (HCC) Plan Acute Encephalopathy --Waxing/waning --Etiology likely multifactorial related to acute on chronic hypoxemic respiratory failure, hospital environment, advanced age, infection, medication side effects --Continue to treat acute and underlying infections per primary team-On IV Ceftriaxone --Encourage PO intake, time up in chair, family visits, supervised ambulation, and sleep hygiene --If agitated, assess for and consider treating for pain --QTc= 444 --[place] PRN Seroquel for ONLY if danger to self/others/treatment and not otherwise redirectable--Received last on 01/25 --Start PRN melatonin at HS --Monitor for constipation/urinary retention - last BM 01/27 --Continue to involve family/NOK in conversations regarding medical decision making and discharge planning --Possible medication contributions: steroids, hydroxyzine Hydroxyzine can increase risk for delirium, falls, constipation, and urinary retention. Received one dose prior to admission at facility. Paranoia --Does not appear to be paranoid in conversation this morning. Reports he feels as if he is improving. --Likely secondary to delirium --Do not anticipate need of trial of low dose scheduled Seroquel at night, has not needed PRN Seroquel since 01/25. Depression --Prior to admission at facility, patient was receiving mirtazapine 15 mg nightly. --Consider changing sertraline to mirtazapine 15 mg at bedtime or if prefer to stay with sertraline, then consider decreasing to 50 mg at bedtime Debility --Related to physical deconditioning, multiple transitions of care, acute illness --Continue PT/OT as able while inpatient --Anticipate d/c to inpatient rehab for ongoing daily PT/OT Follow-up: will follow with you Subjective Chief Complaint: Patient presents with Shortness of Breath Pt sent in from [facility] for pleural effusion. Pt states he has 3/10 left side chest pain . Hx ofCABG in November of this year. . Geriatrics consulted for Confused, paranoid, please evaluate HPI- The patient is new to me but seen by the Geriatric Inpatient Consult team. 78 y.o. year-old male admitted to acute care from [facility] for chest pain and shortness of breath. Diagnosed with acute hypoxic respiratory failure with shortness of breath. Started on levofloxacin. Hospital course complicated by delirium, paranoia. Seen by pulmonology and treated for pneumonia and started on steroids. Seen by cardiothoracic surgery for wound dehiscence, s/p CABG on 11/21/2023. Interval History: Remains on telemetry. Per review of primary team progress note, patient reports feeling weak and plan for blood transfusion. Plan for [facility] on discharge. Labs reviewed with Hemoglobin 6.7. Patient awake and alert in bed. Patient reports he slept 3 hours overnight. He feels anxious at times. States he is at the hospital due to a heart attack. Alert to person, place, month, and year. States he will have a blood transfusion and dialysis today. No family at bedside. Spoke to RN. Patient confused at times, plan for dialysis and blood transfusion today. Seen by PT. Min assist. Ambulated 16 ft x 3 reps. Recommending inpatient rehab. Review of Systems Constitutional: Positive for activity change and fatigue. Negative for appetite change. HENT: Negative for sore throat and trouble swallowing. Respiratory: Positive for cough (occasional). Negative for shortness of breath. Gastrointestinal: Negative for abdominal pain. Skin: Positive for wound. Neurological: Negative for dizziness and headaches. Psychiatric/Behavioral: Positive for confusion and sleep disturbance. Negative for dysphoric mood. The patient is nervous/anxious. Objective BP 143/62 (BP Location: Right arm, Patient Position: Sitting) Pulse 87 Temp 36.7 C (98 F) (Temporal) Resp 18 Ht 5' 10 (1.778 m) Wt 137 lb 9.6 oz (62.4 kg) SpO2 99% BMI 19.74 kg/m Intake/Output Summary (Last 24 hours) at 01/28/2024 1531 Last data filed at 01/28/2024 0845 Gross per 24 hour Intake 150 ml Output 75 ml Net 75 ml Wt Readings from Last 3 Encounters: 01/23/24 137 lb 9.6 oz (62.4 kg) 12/25/23 137 lb 5.6 oz (62.3 kg) Current Facility-Administered Medications: acetaminophen (Tylenol) tablet 650 mg, 650 mg, Oral, q6h PRN, Jaleel Duvall MD, 650 mg at 01/24/24 2019 amiodarone (Pacerone) tablet 200 mg, 200 mg, Oral, Daily, Jaleel Duvall MD, 200 mg at 01/28/24 08 aspirin chewable tablet 81 mg, 81 mg, Oral, Daily, Jaleel Duvall MD, 81 mg at 01/28/24 08 atorvastatin (Lipitor) tablet 80 mg, 80 mg, Oral, Daily, Jaleel Duvall MD, 80 mg at 01/28/24 08 cefTRIAXone (Rocephin) 1,000 mg in sodium chloride 0.9 % 50 mL IVPB Mini-Bag Plus, 1,000 mg, IntraVENous, q24h, Jaleel Duvall MD, Stopped at 01/28/24 0508 dextrose 5 % infusion, 100 mL/hr, IntraVENous, PRN, Jaleel Duvall MD dextrose 50 % solution 12.5 g, 12.5 g, IntraVENous, PRN, Jaleel Duvall MD gabapentin (Neurontin) capsule 100 mg, 100 mg, Oral, BID, Jaleel Duvall MD, 100 mg at 01/28/24 0829 glucagon (human recombinant) injection 1 mg, 1 mg, IntraMUSCular, PRN, Jaleel Duvall MD glucose oral gel 15 g, 15 g, Oral, PRN, Jaleel Duvall MD heparin injection 1,900 Units, 1,900 Units, IntraCATHeter, PRN, Kaushal Santiago MD, 1,900 Units at 01/23/24 194 heparin injection 2,000 Units, 2,000 Units, IntraCATHeter, PRN, Kaushal Santiago MD, 2,000 Units at 01/23/241940 heparin injection 5,000 Units, 5,000 Units, SubCUTAneous, 3 times per day, Jaleel Duvall MD, 5,000 Units at 01/27/242151 insulin glargine (Lantus) injection 7 Units, 7 Units, SubCUTAneous, Nightly, Jaleel Duvall MD, 7 Units at 01/27/242151 Insulin Lispro (Humalog) injection 0-18 Units, 0-18 Units, SubCUTAneous, BID WC, 3 Units at 01/28/24 0828 AND Insulin Lispro (Humalog) injection 0-18 Units, 0-18 Units, SubCUTAneous, Nightly, Jaleel Duvall MD, 18 Units at 01/27/242150 ipratropium-albuterol (Duo-Neb) 0.5-2.5 mg/3 mL nebulizer solution 3 mL, 3 mL, Nebulization, TID PRN, Jaleel Duvall MD ipratropium-albuterol (Duo-Neb) 0.5-2.5 mg/3 mL nebulizer solution 3 mL, 3 mL, Nebulization, BID, Jaleel Duvall MD, 3 mL at 01/28/24 0802 melatonin tablet 3 mg, 3 mg, Oral, Nightly PRN, Yolanda Harry, MANAGER OF PROJECT MANAGEMENT - INTEGRATION ENGINEER mometasone-formoterol (Dulera 100) 100-5 MCG/ACT inhaler 2 puff, 2 puff, Inhalation, BID, Arun Lancaster MD, 2 puff at 01/28/24 0800 pantoprazole (ProtoNix) EC tablet 40 mg, 40 mg, Oral, qAM AC, Jaleel Duvall MD, 40 mg at 01/28/24 0632 QUEtiapine (SEROquel) tablet 12.5 mg, 12.5 mg, Oral, q8h PRN, Ursula Hubbard MD, 12.5 mg at 01/26/24 2244 sertraline (Zoloft) tablet 75 mg, 75 mg, Oral, Daily, Ursula Hubbard MD, 75 mg at 01/28/24 0829 sodium chloride 0.9 % infusion, 250 mL/hr, IntraVENous, PRN, Jaleel Duvall MD tamsulosin (Flomax) 24 hr capsule 0.4 mg, 0.4 mg, Oral, Daily, Jaleel Duvall MD, 0.4 mg at 01/28/24 0829 tiotropium (Spiriva Respimat) 2.5 MCG/ACT inhaler 2 puff, 2 puff, Inhalation, Daily, Arun Lancaster MD, 2 puff at 01/28/24 0829 Physical Exam Vitals reviewed. Constitutional: No acute distress, well-nourished, well kempt Psych: Mood and affect Appropriate. Fair eye contact. Cardiovascular: Regular rate and rhythm, no murmur, no BLE edema Pulmonary/Chest: Clear to auscultation anteriorly, normal respiratory effort, no coughing noted, nasal cannula in place Abdominal: Soft, not distended, no tenderness to palpation, BS present, Neurological: alert, attentive, speech is clear but vague , oriented x month, year, place, city, and self, follows commands, no tremor and no rigidity Musculoskeletal: Gait: assessment deferred Skin: warm and dry, no visible rashes or wounds Labs and Imaging: Recent Results (from the past 24 hour(s)) POCT glucose meter Collection Time: 01/27/24 9:07 PM Result Value Ref Range Glucose >450 (H) 70 - 100 mg/dL POCT glucose meter Collection Time: 01/27/24 9:12 PM Result Value Ref Range Glucose >450 (H) 70 - 100 mg/dL POCT glucose meter Collection Time: 01/27/24 9:27 PM Result Value Ref Range Glucose >450 (H) 70 - 100 mg/dL Comprehensive metabolic panel Collection Time: 01/27/24 9:48 PM Result Value Ref Range SODIUM 131 (L) 135 - 145 mmol/L POTASSIUM 5.4 (H) 3.5 - 5.1 mmol/L CHLORIDE 97 (L) 98 - 107 mmol/L CARBON DIOXIDE 24 22 - 30 mmol/L ANION GAP 9 3 - 13 mmol/L UREA NITROGEN 59 (H) 9 - 20 mg/dL CREATININE 7.17 (H) 0.66 - 1.25 mg/dL GLUCOSE 529 (HH) 70 - 100 mg/dL CALCIUM 8.3 (L) 8.4 - 10.4 mg/dL AST (SGOT) 31 15 - 46 U/L ALT 63 (H) 0 - 49 U/L ALKALINE PHOSPHATASE 85 38 - 126 U/L ALBUMIN 3.0 (L) 3.5 - 5.0 g/dL BILIRUBIN, TOTAL 0.3 0.2 - 1.3 mg/dL TOTAL PROTEIN 5.9 (L) 6.3 - 8.2 g/dL eGFR 7.3 (L) >60.0 mL/min/1.73m*2 POCT glucose meter Collection Time: 01/27/24 10:41 PM Result Value Ref Range Glucose >450 (H) 70 - 100 mg/dL POCT glucose meter Collection Time: 01/27/24 11:38 PM Result Value Ref Range Glucose 448 (H) 70 - 100 mg/dL POCT glucose meter Collection Time: 01/28/24 1:10 AM Result Value Ref Range Glucose 382 (H) 70 - 100 mg/dL POCT glucose meter Collection Time: 01/28/24 2:47 AM Result Value Ref Range Glucose 319 (H) 70 - 100 mg/dL CBC Collection Time: 01/28/24 4:44 AM Result Value Ref Range Auto WBC 12.7 (H) 3.6 - 10.7 10*3/uL RBC 2.34 (L) 4.40 - 5.90 10*6/uL Hemoglobin 6.7 (LL) 13.0 - 18.0 g/dL Hematocrit 21.1 (L) 40.0 - 52.0 % MCV 90.2 77.0 - 99.0 fL MCH 28.6 26.0 - 34.0 pg MCHC 31.8 30.5 - 36.0 % RDW 15.9 (H) 11.5 - 15.0 % Platelets 229 140 - 440 10*3/uL MPV 10.0 9.0 - 12.7 fL Type and screen Collection Time: 01/28/24 6:39 AM Result Value Ref Range ABO Grouping A Antibody Screen NEG Rh Type POS Prepare RBC: 1 Units Collection Time: 01/28/24 7:42 AM Result Value Ref Range PRODUCT CODE E0494O35 Unit Number [id number] Unit ABO A Unit RH POS Crossmatch interpretation COMP Dispense Status Crossmatch Blood Expiration Date [id number] Product Blood Type 6200 Unit Volume 300 mL POCT glucose meter Collection Time: 01/28/24 7:52 AM Result Value Ref Range Glucose 188 (H) 70 - 100 mg/dL POCT glucose meter Collection Time: 01/28/24 12:38 PM Result Value Ref Range Glucose 160 (H) 70 - 100 mg/dL Lab Results Component Value Date TSH 1.786 11/15/2023 No results found for: [id number] Lab Results Component Value Date VITD25 16 (L) 11/16/2023 Reviewed: allergies, imaging, active problem lists, medications, and labs * Nazanin Smith MD - 01/28/2024 9:06 AM EDT Hospitalist Progress Note 01/28/2024 9:06 AM [phone]: Please page me for patient care issues. [phone]: Please page [facility] night Hospitalist for any issues. Subjective: Admit Date: 01/22/2024 PCP: OLENA GABRIEL Room#: [id number]/[id number] A Interval History: Jose is a 78 y.o. male presented with SOB. Presented with chest pain, shortness of breath. CXRSmall right and moderate left pleural effusions, increased on the left, BNP 89103. Past history of ESRD, on HD three times weekly. D-Dimer elevated, CTA neg for PE, findings suggestive of Infiltrates, Pro calcitonin mildly elevated, pending blood cultures. Admitted for further evaluation and management. Nephrology following IR guided Thoracentesis, left side on 01/23 with removal of 1400 mL, scheduled for right side with removal of 400 mL of clear yellow fluid on 01/24 Pulmonology following IV Ceftriaxone PT/OT recommends IP rehab Geriatrics seen the patient, appreciated CT surgery seen the patient, appreciated 01/27 Patient seen and examined, I was wearing N95 mask throughout the patient encounter No new event overnight Patient feeling weak overall. Hemoglobin was noted to be 6.7. Discussed with patient's son and daughter on the phone as patient requested for this discussion regarding blood transfusion. Patient consented for blood transfusion Labs reviewed as below Past Medical History: No past medical history on file. Adult diet Regular; Low Potassium (Less than 3000 mg/day) @[id number]@ Medications: amiodarone, 200 mg, Oral, Daily aspirin, 81 mg, Oral, Daily atorvastatin, 80 mg, Oral, Daily cefTRIAXone, 1,000 mg, IntraVENous, q24h gabapentin, 100 mg, Oral, BID heparin, 5,000 Units, SubCUTAneous, 3 times per day insulin glargine, 7 Units, SubCUTAneous, Nightly insulin lispro, 0-18 Units, SubCUTAneous, BID WC And insulin lispro, 0-18 Units, SubCUTAneous, Nightly ipratropium-albuterol, 3 mL, Nebulization, BID mometasone-formoterol, 2 puff, Inhalation, BID pantoprazole, 40 mg, Oral, qAM AC sertraline, 75 mg, Oral, Daily tamsulosin, 0.4 mg, Oral, Daily tiotropium, 2 puff, Inhalation, Daily LABS: CBC: Recent Labs 01/26/24 0601/27/24 0601/28/24 0444 WBC 10.8* 9.7 12.7* RBC 2.48* 2.51* 2.34* HGB 7.1* 7.2* 6.7* HCT 23.1* 23.4* 21.1* MCV 93.1 93.2 90.2 RDW 16.4* 16.1* 15.9* PLT 251 253 229 BMP: Recent Labs 01/26/24 0601/27/24 0601/27/24 2148 NA 134* 134* 131* K 4.4 5.1 5.4* CL 99 100 97* CO2 30 28 24 BUN 28* 44* 59* CREATININE 3.58* 5.82* 7.17* GLUCOSE 185* 297* 529* CALCIUM 8.3* 8.3* 8.3* ANIONGAP 5 6 9 LIVER PROFILE: Recent Labs 01/26/24 0601/27/24 0601/27/24 2148 AST 49* 32 31 ALT 90* 70* 63* BILITOT 0.3 0.4 0.3 ALKPHOS 63 69 85 PROT 6.0* 6.0* 5.9* PT/INR: No results for input(s): PROTIME, INR in the last 72 hours. CARDIAC ENZYMES: No results for input(s): TROPONINI in the last 72 hours. Procalcitonin: No results found for: PROCAL I reviewed: [x] laboratory results [x] radiographic results At the time of today's encounter. Pt was informed about the results. Objective: Vitals: BP (!) 168/83 (BP Location: Right arm, Patient Position: Lying) Pulse 86 Temp 36.4 C (97.5 F) (Temporal) Resp 18 Ht 5' 10 (1.778 m) Wt 137 lb 9.6 oz (62.4 kg) SpO2 94% BMI 19.74 kg/m Pulse Ox: SpO2 Av % Min: 93 % Max: 98 % Supplemental O2: O2 Flow Rate (L/min): 3 L/min General appearance: No apparent distress, HEENT: Eyes: No scleral icterus No pallor Oral: Tongue is semi-moist Cardiovascular: S1S2 heard, RRR Respiratory: Decrease breath sound both bases Left chest dialysis catheter seen Abdomen: Soft, non-tender, non-distended with normal bowel sounds. Musculoskeletal: No obvious deformities seen Skin: No visible rashes or lesions. Neurology- no focal neurology,Awake alert Extremity- no peripheral edema both lower extremities Assessment Acute problems-- Acute hypoxic respiratory failure with shortness of breath Paranoid/confused Diabetes mellitus with hyperglycemia Malnutrition unspecified 5 Acute on chronic anemia Chronic issues-- End-stage renal disease on hemodialysis Plan Continue with IV Rocephin Nephrology consult following Status post paracentesis Pulmonary, geriatrics consult following and appreciated Seen by CTS surgery Ordered blood transfusion, patient consented On DVT/ GI prophylaxis Labs ordered for AM Patient was informed about all work up and treatment plan Discussed with nursing staff Discussed with patient's son and daughter on the phone in detail Extended Emergency Contact Information Primary Emergency Contact: John (ROBLoriDeepti Mobile Relation: Spouse Secondary Emergency Contact: JohnJuan Manuel Mobile Relation: Son Preferred language: Romanian Pressing Machine Operator needed? No Advance Directive: Full Code Anticipated Discharge -Pending clinical course Nazanin Smith MD,MD Division of Hospitalist Medicine Inpatient Medical Services PAGER: [phone] * Kaushal Santiago MD - 01/27/2024 5:41 PM EDT [facility] Progress Note SUBJECTIVE: Jose John is a 78 y.o. male with PMHX oif T2DM, essential HTN and ZOFIA on CKD4 presented to the hospital with worsening SOB. Patient seen this am, overall feeling better. Medications Scheduled Meds:amiodarone, 200 mg, Oral, Daily aspirin, 81 mg, Oral, Daily atorvastatin, 80 mg, Oral, Daily cefTRIAXone, 1,000 mg, IntraVENous, q24h gabapentin, 100 mg, Oral, BID heparin, 5,000 Units, SubCUTAneous, 3 times per day insulin glargine, 7 Units, SubCUTAneous, Nightly ipratropium-albuterol, 3 mL, Nebulization, BID mometasone-formoterol, 2 puff, Inhalation, BID pantoprazole, 40 mg, Oral, qAM AC predniSONE, 40 mg, Oral, Daily sertraline, 75 mg, Oral, Daily tamsulosin, 0.4 mg, Oral, Daily tiotropium, 2 puff, Inhalation, Daily Continuous Infusions: Prn Meds : PRN medications: acetaminophen, dextrose, dextrose, glucagon (rDNA), glucose, heparin, heparin, ipratropium-albuterol, QUEtiapine Home Meds: No current facility-administered medications on file prior to encounter. Current Outpatient Medications on File Prior to Encounter Medication Sig Dispense Refill amiodarone (Pacerone) 200 MG tablet Take 1 tablet (200 mg) by mouth daily. 0 aspirin 81 MG chewable tablet Chew 1 tablet (81 mg) daily. 0 atorvastatin (Lipitor) 80 MG tablet Take 1 tablet (80 mg) by mouth daily. 0 gabapentin (Neurontin) 100 MG capsule Take 1 capsule (100 mg) by mouth 2 times daily. 0 insulin glargine (Lantus) 100 UNIT/ML injection Inject 7 Units under the skin Nightly. 0 ipratropium-albuterol (Duo-Neb) 0.5-2.5 mg/3 mL nebulizer solution Take 3 mL by nebulization 3 times daily as needed for wheezing or shortness of breath. 0 omeprazole OTC (PriLOSEC OTC) 20 MG EC tablet Take 20 mg by mouth in the morning and 20 mg in the evening. Take before meals. Do not crush, chew, or split.. sertraline (Zoloft) 50 MG tablet Take 1 tablet (50 mg) by mouth daily. 0 tamsulosin (Flomax) 0.4 MG 24 hr capsule Take 0.4 mg by mouth daily. OBJECTIVE Physical BP 141/66 (BP Location: Right arm, Patient Position: Lying) Pulse 87 Temp 37.2 C (98.9 F) (Temporal) Resp 19 Ht 1.778 m (5' 10) Wt 62.4 kg (137 lb 9.6 oz) SpO2 98% BMI 19.74 kg/m 24HR INTAKE/OUTPUT: Intake/Output Summary (Last 24 hours) at 01/27/2024 1741 Last data filed at 01/27/2024 1732 Gross per 24 hour Intake 350 ml Output 75 ml Net 275 ml General: NAD, alert Head: Atraumatic on anterior inspection Psych: appropriate Eyes: Lids symmetric Chest: bilateral vesicular breath sounds, + rales Cardiac: S1, S2 Abdomen: Nontender SKIN: dry Extremities: Trace lower extremity edema Data Last 3 CMP: Recent Labs 01/25/24 0619 01/26/24 0630 01/27/24 06 NA 132* 134* 134* K 5.2* 4.4 5.1 CL 98 99 100 CO2 26 30 28 BUN 43* 28* 44* CREATININE 6.04* 3.58* 5.82* CALCIUM 8.5 8.3* 8.3* PROT 6.0* 6.0* 6.0* BILITOT 0.3 0.3 0.4 ALKPHOS 71 63 69 AST 69* 49* 32 ALT 95* 90* 70* Last 3 CBC: Recent Labs 01/25/24 0619 01/26/24 0630 01/27/24 06 WBC 13.0* 10.8* 9.7 RBC 2.47* 2.48* 2.51* HGB 7.0* 7.1* 7.2* HCT 23.1* 23.1* 23.4* MCV 93.5 93.1 93.2 MCH 28.3 28.6 28.7 MCHC 30.3* 30.7 30.8 RDW 16.1* 16.4* 16.1* PLT 227 251 253 MPV 10.1 9.8 9.8 ASSESSMENT Patient Active Problem List Diagnosis Date Noted Shortness of breath 01/23/2024 Severe malnutrition ([facility]) ([facility]) 12/07/2023 S/P CABG (coronary artery bypass graft) 11/21/2023 NSTEMI (non-ST elevated myocardial infarction) ([facility]) 11/19/2023 CKD (chronic kidney disease) stage 4, GFR 15-29 ml/min ([facility]) 11/19/2023 Cardiomyopathy, ischemic 11/19/2023 Coronary artery disease 11/17/2023 Multi-vessel coronary artery stenosis 11/17/2023 Carotid artery bruit 11/17/2023 Carotid arterial disease ([facility]) 11/17/2023 Unstable angina ([facility]) ([facility]) 11/15/2023 ASSESSMENT/PLAN: Jose John is a 78 y.o. male with PMHX oif T2DM, essential HTN and ZOFIA on CKD4 presented to the hospital with worsening SOB. We are consulted for ongoing dialysis management. ZOFIA on advanced CKD initiated on iHD 12/2023 progressing towards ESRD Anemia of CKD CKD MBD Acute respiratory failure PLAN: - no indication for iHD, will continue MWF while here - can give 250 mg IV iron x4 when concerns for infection have been addressed. Transfuse for Hg <7 - Daily BMP, phos, Ca, albumin 2x weekly - no indication for phos binders, goal 3.5-5.5 - accurate I&O - monitor for renal recovery - dose meds for eGFR < 15 - Daily nephrocaps while on [employer] Kaushal Santiago MD 01/27/2024 5:41 PM * Dora Madden APRN - INTEGRATION ENGINEER - 01/27/2024 3:12 PM EDT Images from the original note were not included. Cardiothoracic Surgery Interval Note PATIENT NAME: Jose John : 1945 (78 y.o.) TODAY'S DATE: 01/27/2024 Interval History: - Non-excisional debridement - (non-operative brushing, washing, irrigation, scrubbing of devitalized tissue) of MSI - Packing tape in distal MSI, covered with foam dressing. To be completed daily and PRN. * Kanwal Simms MD - 01/27/2024 8:31 AM EDT Hospitalist Progress Note 01/27/2024 Subjective: Admit Date: 01/22/2024 PCP: OLENA GABRIEL Room#: [id number] A Brief Hospital course: Jose is a 78 y.o. male presented with SOB. Presented with chest pain, shortness of breath. CXRSmall right and moderate left pleural effusions, increased on the left, BNP 87475. Past history of ESRD, on HD three times weekly. D-Dimer elevated, CTA neg for PE, findings suggestive of Infiltrates, Pro calcitonin mildly elevated, pending blood cultures. Admitted for further evaluation and management. Nephrology following IR guided Thoracentesis, left side on 01/23 with removal of 1400 mL, scheduled for right side with removal of 400 mL of clear yellow fluid on 01/24 Pulmonology following IV Ceftriaxone PT/OT recommends IP rehab Geriatrics seen the patient, appreciated CT surgery seen the patient, appreciated Interval History: 01/27/2024-No overnight issues. Patient is seen and examined Resting on his bed, NAD He states symptoms are getting better Son is at bedside, answered all questions Labs reviewed, shows ESRD picture, WBC 10.8, normalized hemoglobin 7.2, stable Case and plan discussed with patient and bedside nurse. All questions answered. Past Medical History: No past medical history on file. Adult diet Regular; Low Potassium (Less than 3000 mg/day) 24HR INTAKE/OUTPUT: Intake/Output Summary (Last 24 hours) at 01/27/2024 0831 Last data filed at 01/27/2024 0527 Gross per 24 hour Intake 350 ml Output -- Net 350 ml LABS: CBC: Recent Labs 01/25/24 61801/26/24 0630 01/27/24 0620 WBC 13.0* 10.8* 9.7 RBC 2.47* 2.48* 2.51* HGB 7.0* 7.1* 7.2* HCT 23.1* 23.1* 23.4* MCV 93.5 93.1 93.2 RDW 16.1* 16.4* 16.1* PLT 227 251 253 BMP: Recent Labs 01/25/2461801/26/24 0601/27/24 0620 NA 132* 134* 134* K 5.2* 4.4 5.1 CL 98 99 100 CO2 26 30 28 BUN 43* 28* 44* CREATININE 6.04* 3.58* 5.82* GLUCOSE 300* 185* 297* CALCIUM 8.5 8.3* 8.3* ANIONGAP 7 5 6 LIVER PROFILE: Recent Labs 01/25/2461801/26/2462901/27/24 06 AST 69* 49* 32 ALT 95* 90* 70* BILITOT 0.3 0.3 0.4 ALKPHOS 71 63 69 PROT 6.0* 6.0* 6.0* PT/INR: No results for input(s): PROTIME, INR in the last 72 hours. CARDIAC ENZYMES: No results for input(s): TROPONINI in the last 72 hours. Procalcitonin: No results found for: PROCAL COVID-19 PCR: No results for input(s): COVID19 in the last 72 hours. Objective: Vitals: BP 137/76 (BP Location: Right arm, Patient Position: Lying) Pulse 89 Temp 36.6 C (97.9 F) (Temporal) Resp 17 Ht 5' 10 (1.778 m) Wt 137 lb 9.6 oz (62.4 kg) SpO2 95% BMI 19.74 kg/m Pulse Ox: SpO2 Av.5 % Min: 93 % Max: 99 % Supplemental O2: O2 Flow Rate (L/min): 3 L/min Physical Exam HENT: Head: Normocephalic and atraumatic. Mouth/Throat: Mouth: Mucous membranes are moist. Cardiovascular: Rate and Rhythm: Normal rate and regular rhythm. Heart sounds: Murmur heard. Pulmonary: Effort: Pulmonary effort is normal. Breath sounds: Decreased breath sounds present. Abdominal: Palpations: Abdomen is soft. Skin: General: Skin is warm and dry. Neurological: Mental Status: He is alert and oriented to person, place, and time. Psychiatric: Mood and Affect: Mood normal. Medications: Scheduled PRN amiodarone, 200 mg, Oral, Daily aspirin, 81 mg, Oral, Daily atorvastatin, 80 mg, Oral, Daily cefTRIAXone, 1,000 mg, IntraVENous, q24h collagenase, , Topical, Daily gabapentin, 100 mg, Oral, BID heparin, 5,000 Units, SubCUTAneous, 3 times per day insulin glargine, 7 Units, SubCUTAneous, Nightly ipratropium-albuterol, 3 mL, Nebulization, BID mometasone-formoterol, 2 puff, Inhalation, BID pantoprazole, 40 mg, Oral, qAM AC predniSONE, 40 mg, Oral, Daily sertraline, 75 mg, Oral, Daily sodium hypochlorite, , Irrigation, Daily tamsulosin, 0.4 mg, Oral, Daily tiotropium, 2 puff, Inhalation, Daily PRN medications: acetaminophen, dextrose, dextrose, glucagon (rDNA), glucose, heparin, heparin, ipratropium-albuterol, QUEtiapine Continuous Assessment Data: (CAT1) Reviewed 3 or more notes from different specialty or health system (each=1). (CAT1) Reviewed 3 or more labs/studies previously ordered by me not previously counted (each=1, panels count as 1). (CAT1) Ordered 2 new labs and/or studies (each=1, panels count as 1). (LOW: 2x CAT1 or independent historian MOD: 3x CAT1 or 1x CAT3 EXTENSIVE: 3x CAT1 and 1x CAT3) Acute, acute on chronic, unstable/uncontrolled chronic problems/diagnoses: Acute hypoxic respiratory failure with shortness of breath Paranoid/confused Diabetes mellitus with hyperglycemia Malnutrition unspecified Stable chronic problems affecting care, new non-acute diagnoses: ESRD Plan As a result of the above findings & factors, the following mgmt was pursued: - C/W IV Ceftriaxone - Nephrology following -IR guided Thoracentesis, left side on 01/23 with removal of 1400 mL, scheduled for right side withremoval of 400 mL of clear yellow fluid on 01/24 -Pulmonology following - Geriatrics consulted, seen the patient, appreciated -CTS seen the patient, appreciated - Home Medications as ordered - am labs, replace lytes prn - PT/OT/CM/SW - delirium precautions: increase activity, limit nighttime disturbances, and avoid anticholinergic meds, benzos, etc - DVT prophylaxis: enoxaparin and encourage ambulation Complexity: Acute illness or injury posing a threat to life or body function (HIGH). Risk: Advance Directive: Prior Anticipated Discharge - Date -2 to 3 days - Location -IP rehab - Pending the following -clinical course, placement Total time spent (which include face to face and non face to face encounters) : 28 minutes Extended Emergency Contact Information Primary Emergency Contact: Deepti John (POA) Mobile Relation: Spouse Secondary Emergency Contact: Juan Manuel John Mobile Relation: Son Preferred language: Romanian Pressing Machine Operator needed? No Kanwal Simms MD Division of Hospitalist Medicine Inpatient Medical Services/[place] * Kaushal Santiago MD - 01/26/2024 5:25 PM EDT [facility] Progress Note SUBJECTIVE: Jose John is a 78 y.o. male with PMHX oif T2DM, essential HTN and ZOFIA on CKD4 presented to the hospital with worsening SOB. Patient seen this am, tired at time of exam Medications Scheduled Meds:amiodarone, 200 mg, Oral, Daily aspirin, 81 mg, Oral, Daily atorvastatin, 80 mg, Oral, Daily cefTRIAXone, 1,000 mg, IntraVENous, q24h collagenase, , Topical, Daily gabapentin, 100 mg, Oral, BID heparin, 5,000 Units, SubCUTAneous, 3 times per day insulin glargine, 7 Units, SubCUTAneous, Nightly ipratropium-albuterol, 3 mL, Nebulization, BID mometasone-formoterol, 2 puff, Inhalation, BID pantoprazole, 40 mg, Oral, qAM AC predniSONE, 40 mg, Oral, Daily [START ON 01/27/2024] sertraline, 75 mg, Oral, Daily sodium hypochlorite, , Irrigation, Daily tamsulosin, 0.4 mg, Oral, Daily tiotropium, 2 puff, Inhalation, Daily Continuous Infusions: Prn Meds : PRN medications: acetaminophen, dextrose, dextrose, glucagon (rDNA), glucose, heparin, heparin, ipratropium-albuterol, QUEtiapine Home Meds: No current facility-administered medications on file prior to encounter. Current Outpatient Medications on File Prior to Encounter Medication Sig Dispense Refill amiodarone (Pacerone) 200 MG tablet Take 1 tablet (200 mg) by mouth daily. 0 aspirin 81 MG chewable tablet Chew 1 tablet (81 mg) daily. 0 atorvastatin (Lipitor) 80 MG tablet Take 1 tablet (80 mg) by mouth daily. 0 gabapentin (Neurontin) 100 MG capsule Take 1 capsule (100 mg) by mouth 2 times daily. 0 insulin glargine (Lantus) 100 UNIT/ML injection Inject 7 Units under the skin Nightly. 0 ipratropium-albuterol (Duo-Neb) 0.5-2.5 mg/3 mL nebulizer solution Take 3 mL by nebulization 3 times daily as needed for wheezing or shortness of breath. 0 omeprazole OTC (PriLOSEC OTC) 20 MG EC tablet Take 20 mg by mouth in the morning and 20 mg in the evening. Take before meals. Do not crush, chew, or split.. sertraline (Zoloft) 50 MG tablet Take 1 tablet (50 mg) by mouth daily. 0 tamsulosin (Flomax) 0.4 MG 24 hr capsule Take 0.4 mg by mouth daily. OBJECTIVE Physical BP 104/61 (BP Location: Right arm, Patient Position: Sitting) Pulse 81 Temp 36.3 C (97.4 F) (Temporal) Resp 16 Ht 1.778 m (5' 10) Wt 62.4 kg (137 lb 9.6 oz) SpO2 93% BMI 19.74 kg/m 24HR INTAKE/OUTPUT: Intake/Output Summary (Last 24 hours) at 01/26/2024 1725 Last data filed at 01/26/2024 0600 Gross per 24 hour Intake 250 ml Output 0 ml Net 250 ml General: NAD, alert Head: Atraumatic on anterior inspection Psych: appropriate Eyes: Lids symmetric Chest: bilateral vesicular breath sounds, + rales Cardiac: S1, S2 Abdomen: Nontender SKIN: dry Extremities: Trace lower extremity edema Data Last 3 CMP: Recent Labs 01/24/24 0516 01/25/24 0619 01/26/24 0630 NA 134* 132* 134* K 5.1 5.2* 4.4 CL 98 98 99 CO2 31* 26 30 BUN 24* 43* 28* CREATININE 4.11* 6.04* 3.58* CALCIUM 8.7 8.5 8.3* PROT 6.6 6.0* 6.0* BILITOT 0.4 0.3 0.3 ALKPHOS 79 71 63 AST 60* 69* 49* ALT 76* 95* 90* Last 3 CBC: Recent Labs 01/24/24 0516 01/25/24 0619 01/26/24 0630 WBC 6.9 13.0* 10.8* RBC 2.73* 2.47* 2.48* HGB 7.7* 7.0* 7.1* HCT 25.3* 23.1* 23.1* MCV 92.7 93.5 93.1 MCH 28.2 28.3 28.6 MCHC 30.4* 30.3* 30.7 RDW 16.3* 16.1* 16.4* PLT 229 227 251 MPV 10.1 10.1 9.8 ASSESSMENT Patient Active Problem List Diagnosis Date Noted Shortness of breath 01/23/2024 Severe malnutrition ([facility]) ([facility]) 12/07/2023 S/P CABG (coronary artery bypass graft) 11/21/2023 NSTEMI (non-ST elevated myocardial infarction) ([facility]) 11/19/2023 CKD (chronic kidney disease) stage 4, GFR 15-29 ml/min ([facility]) 11/19/2023 Cardiomyopathy, ischemic 11/19/2023 Coronary artery disease 11/17/2023 Multi-vessel coronary artery stenosis 11/17/2023 Carotid artery bruit 11/17/2023 Carotid arterial disease ([facility]) 11/17/2023 Unstable angina ([facility]) ([facility]) 11/15/2023 ASSESSMENT/PLAN: Jose John is a 78 y.o. male with PMHX oif T2DM, essential HTN and ZOFIA on CKD4 presented to the hospital with worsening SOB. We are consulted for ongoing dialysis management. ZOFIA on advanced CKD initiated on iHD 12/2023 progressing towards ESRD Anemia of CKD CKD MBD Acute respiratory failure PLAN: - no indication for iHD, will continue Mwf while here - can give 250 mg IV iron x4 when concerns for infection have been addressed. Transfuse for Hg <7 - Daily BMP, phos, Ca, albumin 2x weekly - no indication for phos binders, goal 3.5-5.5 - accurate I&O - monitor for renal recovery - dose meds for eGFR < 15 - Daily nephrocaps while on [employer] Kaushal Santiago MD 01/26/2024 5:25 PM * Kanwal Simms MD - 01/26/2024 8:17 AM EDT Hospitalist Progress Note 01/26/2024 Subjective: Admit Date: 01/22/2024 PCP: OLENA GABRIEL Room#: [id number] A Brief Hospital course: Jose is a 78 y.o. male presented with SOB. Presented with chest pain, shortness of breath. CXRSmall right and moderate left pleural effusions, increased on the left, BNP 90972. Past history of ESRD, on HD three times weekly. D-Dimer elevated, CTA neg for PE, findings suggestive of Infiltrates, Pro calcitonin mildly elevated, pending blood cultures. Admitted for further evaluation and management. Nephrology following IR guided Thoracentesis, left side on 01/23 with removal of 1400 mL, scheduled for right side with removal of 400 mL of clear yellow fluid on 01/24 Pulmonology following IV Ceftriaxone PT/OT recommends IP rehab Geriatrics seen the patient, appreciated CT surgery seen the patient, appreciated Interval History: 01/26/2024-No overnight issues. Patient is seen and examined Sleeping on his bed comfortably without in any acute distress He denies any new acute complaints Labs reviewed, shows ESRD picture, WBC 10.8, improving, hemoglobin 7.1, stable Case and plan discussed with patient and bedside nurse. All questions answered. Past Medical History: No past medical history on file. Adult diet Regular; Low Potassium (Less than 3000 mg/day) 24HR INTAKE/OUTPUT: Intake/Output Summary (Last 24 hours) at 01/26/2024 0817 Last data filed at 01/26/2024 0600 Gross per 24 hour Intake 250 ml Output 0 ml Net 250 ml LABS: CBC: Recent Labs 01/24/24 0516 01/25/2461801/26/24 0630 WBC 6.9 13.0* 10.8* RBC 2.73* 2.47* 2.48* HGB 7.7* 7.0* 7.1* HCT 25.3* 23.1* 23.1* MCV 92.7 93.5 93.1 RDW 16.3* 16.1* 16.4* PLT 229 227 251 BMP: Recent Labs 01/24/24 0516 01/25/2461801/26/24 0630 NA 134* 132* 134* K 5.1 5.2* 4.4 CL 98 98 99 CO2 31* 26 30 BUN 24* 43* 28* CREATININE 4.11* 6.04* 3.58* GLUCOSE 209* 300* 185* CALCIUM 8.7 8.5 8.3* ANIONGAP 4 7 5 LIVER PROFILE: Recent Labs 01/24/24 0516 01/25/2461801/26/24 0630 AST 60* 69* 49* ALT 76* 95* 90* BILITOT 0.4 0.3 0.3 ALKPHOS 79 71 63 PROT 6.6 6.0* 6.0* PT/INR: No results for input(s): PROTIME, INR in the last 72 hours. CARDIAC ENZYMES: No results for input(s): TROPONINI in the last 72 hours. Procalcitonin: No results found for: PROCAL COVID-19 PCR: No results for input(s): COVID19 in the last 72 hours. Objective: Vitals: BP 114/65 (BP Location: Right arm, Patient Position: Lying) Pulse 94 Temp 36.8 C (98.2 F) (Temporal) Resp 16 Ht 5' 10 (1.778 m) Wt 137 lb 9.6 oz (62.4 kg) SpO2 97% BMI 19.74 kg/m Pulse Ox: SpO2 Av.3 % Min: 96 % Max: 99 % Supplemental O2: O2 Flow Rate (L/min): 3 L/min Physical Exam HENT: Head: Normocephalic and atraumatic. Mouth/Throat: Mouth: Mucous membranes are moist. Cardiovascular: Rate and Rhythm: Normal rate and regular rhythm. Heart sounds: Murmur heard. Pulmonary: Effort: Pulmonary effort is normal. Breath sounds: Decreased breath sounds present. Abdominal: Palpations: Abdomen is soft. Skin: General: Skin is warm and dry. Neurological: Mental Status: He is alert and oriented to person, place, and time. Psychiatric: Mood and Affect: Mood normal. Medications: Scheduled PRN amiodarone, 200 mg, Oral, Daily aspirin, 81 mg, Oral, Daily atorvastatin, 80 mg, Oral, Daily cefTRIAXone, 1,000 mg, IntraVENous, q24h collagenase, , Topical, Daily gabapentin, 100 mg, Oral, BID heparin, 5,000 Units, SubCUTAneous, 3 times per day insulin glargine, 7 Units, SubCUTAneous, Nightly ipratropium-albuterol, 3 mL, Nebulization, BID mometasone-formoterol, 2 puff, Inhalation, BID pantoprazole, 40 mg, Oral, qAM AC predniSONE, 40 mg, Oral, Daily sertraline, 50 mg, Oral, Daily sodium hypochlorite, , Irrigation, Daily tamsulosin, 0.4 mg, Oral, Daily tiotropium, 2 puff, Inhalation, Daily PRN medications: acetaminophen, dextrose, dextrose, glucagon (rDNA), glucose, heparin, heparin, ipratropium-albuterol, QUEtiapine Continuous Assessment Data: (CAT1) Reviewed 3 or more notes from different specialty or health system (each=1). (CAT1) Reviewed 3 or more labs/studies previously ordered by me not previously counted (each=1, panels count as 1). (CAT1) Ordered 2 new labs and/or studies (each=1, panels count as 1). (LOW: 2x CAT1 or independent historian MOD: 3x CAT1 or 1x CAT3 EXTENSIVE: 3x CAT1 and 1x CAT3) Acute, acute on chronic, unstable/uncontrolled chronic problems/diagnoses: Acute hypoxic respiratory failure with shortness of breath Paranoid/confused Diabetes mellitus with hyperglycemia Malnutrition unspecified Stable chronic problems affecting care, new non-acute diagnoses: ESRD Plan As a result of the above findings & factors, the following mgmt was pursued: - C/W IV Ceftriaxone - Nephrology following -IR guided Thoracentesis, left side on 01/23 with removal of 1400 mL, scheduled for right side withremoval of 400 mL of clear yellow fluid on 01/24 -Pulmonology following - Geriatrics consulted, seen the patient, appreciated -CTS seen the patient, appreciated - Home Medications as ordered - am labs, replace lytes prn - PT/OT/CM/SW - delirium precautions: increase activity, limit nighttime disturbances, and avoid anticholinergic meds, benzos, etc - DVT prophylaxis: enoxaparin and encourage ambulation Complexity: Acute illness or injury posing a threat to life or body function (HIGH). Risk: Advance Directive: Prior Anticipated Discharge - Date -2 to 3 days - Location -TBD - Pending the following -clinical course, consult recommendations, PT/OT Total time spent (which include face to face and non face to face encounters) : 38.5 minutes Extended Emergency Contact Information Primary Emergency Contact: John Deepti (POA) Mobile Relation: Spouse Secondary Emergency Contact: JohnJuan Manuel Mobile Relation: Son Preferred language: Romanian Pressing Machine Operator needed? No Kanwal Simms MD Division of Hospitalist Medicine Inpatient Medical Services/[facility] [place] * MALINA Rojo CNP - 01/25/2024 2:30 PM EDT Attached media from the original note were not included. * Karan Hicks MD - 01/25/2024 12:40 PM EDT PULMONOLOGY CONSULT PROGRESS NOTE 01/25/2024 Hospital LOS: LOS: 2 days Subjective/Interval History: No acute events overnight. Tolerated bilateral thoracentesis well. Reports he feels somewhat improved now. Denies fevers, chills, or dyspnea. He has been weaned down to 3L NC from 8. A pertinent review of systems was performed and was otherwise non-contributory except as detailed in Subjective section above. 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 Has had thoracentesis x3 past hospital stay 12/04, 12/11 (RIGHT) and 12/21 (left). The right was transudative, likely volume related, and did have Staph epi grow in the broth only,which suspect was skin contaminant. Left thoracentesis for 1400 ml fluid with weak exudate/discordant results LDH 141, protein 4, WBC 137, mostly lymphs and monos (protein criteria). Right thoracentesis on the right with 400 ml clear yellow fluid, studies pending. No significant loculations are seen on procedure images on either side. Follow up cultures and cytology from pleural fluid, please call if abnormal Volume removal with HD as able Agree with Ceftriaxone for an empiric course of antibiotics. Obtain sputum culture and pneumonia PCR if able, not producing much sputum Continue scheduled Duonebs Prednisone 40 mg daily for 5 days burst (if possible COPD component) May benefit from empiric LAMA/LABA homegoing based on his previous PFTs suggestive of severe obstruction Nephrology following for HD Pulmonology will sign off, please call if any questions or assistance is needed. Karan Hicks MD Fellow, Pulmonary and Critical Care Medicine Vitals- BP 108/51 Pulse 84 Temp 36.6 C (97.9 F) (Temporal) Resp 18 Ht 5' 10 (1.778 m) Wt 137 lb 9.6 oz (62.4 kg) SpO2 98% BMI 19.74 kg/m Tmax: Temp (24hrs), Av.7 C (98.1 F), Min:36.6 C (97.8 F), Max:37.1 C (98.8 F) Hemodynamics: Cuff: Systolic (24hrs), Av , Min:108 , Max:139 /Diastolic (24hrs), Av, Min:49, Max:77 Cuff MAP:MAP (mmHg) Av.2 Min: 70 Max: 104 P: Pulse Av.8 Min: 79 Max: 92 Observed RR: Resp Av.1 Min: 16 Max: 20 Observed O2 sats: SpO2 Av.4 % Min: 81 % Max: 100 % Intake/Output Summary (Last 24 hours) at 01/25/2024 1241 Last data filed at 01/25/2024 0630 Gross per 24 hour Intake 300 ml Output 0 ml Net 300 ml Physical exam- Physical Exam Constitutional: General: He is not in acute distress. Appearance: Normal appearance. He is not ill-appearing. HENT: Head: Normocephalic and atraumatic. Right Ear: External ear normal. Left Ear: External ear normal. Nose: Nose normal. Mouth/Throat: Mouth: Mucous membranes are moist. Pharynx: Oropharynx is clear. Eyes: Conjunctiva/sclera: Conjunctivae normal. Cardiovascular: Rate and Rhythm: Normal rate and regular rhythm. Pulses: Normal pulses. Heart sounds: Normal heart sounds. No murmur heard. No gallop. Pulmonary: Effort: Pulmonary effort is normal. No respiratory distress. Breath sounds: No wheezing or rales. Comments: Diminished left lower lobe. On 3L NC Abdominal: General: There is no distension. Musculoskeletal: Right lower leg: No edema. Left lower leg: No edema. Skin: Coloration: Skin is not jaundiced or pale. Neurological: General: No focal deficit present. Mental Status: He is alert and oriented to person, place, and time. Psychiatric: Mood and Affect: Mood normal. Behavior: Behavior normal. Data: [facility] Labs within last 24 hours- BMP: Recent Labs 01/22/24 19101/24/24 0516 01/25/24 0619 NA 133* 134* 132* K 4.7 5.1 5.2* CL 96* 98 98 CO2 28 31* 26 BUN 29* 24* 43* CREATININE 5.26* 4.11* 6.04* CALCIUM 8.7 8.7 8.5 LFTs: Recent Labs 01/24/24 0516 01/25/24 0619 AST 60* 69* ALT 76* 95* PROT 6.6 6.0* ALBUMIN 3.4* 3.1* BILITOT 0.4 0.3 ALKPHOS 79 71 Glucose: Recent Labs 01/22/24191701/23/24 0712 01/23/24 1256 01/23/24 2013 01/24/24 0516 01/24/24 0823 01/24/24 1128 01/24/24 1646 01/25/24 0619 01/25/24 0825 GLUCOSE 85 -- -- -- 209* -- -- -- 300* -- POCGLU -- 158* 167* 113* -- 228* 221* 291* -- 242* Procal: Recent Labs 01/22/241917 PROCAL 0.38* CBC: Recent Labs 01/22/24191701/24/24 0516 01/25/24 0619 WBC 8.4 6.9 13.0* HGB 8.3* 7.7* 7.0* HCT 27.2* 25.3* 23.1* PLT 265 229 227 MCV 92.5 92.7 93.5 RDW 16.4* 16.3* 16.1* ABGs: No results for input(s): PHART, WTT1KMX, PO2ART, FGR9WRF, SO2ART, E5OLADWJ in thelast 72 hours. Lactic Acid: No results for input(s): LACTATE in the last 72 hours. INR: No results for input(s): INR in the last 72 hours. Cardiac Injury Profile: Recent Labs 01/22/24191701/22/24 2353 01/23/24 0310 TROPONINI 0.023 0.023 0.024 Labs in Last 3 months: Lab Results Component Value Date TSH 1.786 11/15/2023 VITD25 16 (L) 11/16/2023 INR 1.2 (H) 12/22/2023 Microbiology- Urine Cx: No results found for: URINECX Blood Cx: Lab Results Component Value Date BLOODCX No growth at 48 hours 01/23/2024 BLOODCX No growth at 48 hours 01/23/2024 Sputum Cx: Lab Results Component Value Date RESPCULT Rare respiratory carol present. 12/02/2023 RESPCULT Few Tiffanie albicans (A) 12/02/2023 Gram Stain: Lab Results Component Value Date LABGRAM 01/24/2024 Few Polymorphonuclear leukocytes per low power field LABGRAM No organisms seen 01/24/2024 PNA PCR: Lab Results Component Value Date HUMANMETAPNE Not Detected 11/25/2023 COVID19: No results found for: COVID19 Legionella Ag: Lab Results Component Value Date LEGIONELLAPN Not Detected 11/25/2023 Strep Ag: No results for input(s): STREPPNEUMO in the last 72 hours. Imaging- CXR portable: Results for orders placed during the hospital encounter of 01/22/24 XR chest 1 view Narrative Patient Name: JOSE JOHN : 1945 Exam Date/Time: 01/22/2024 19:53 Procedure: XR CHEST 1 VIEW Ordering Provider: GLEASON II, STERLING Reason For Exam: Shortness of breath CHEST PORTABLE CLINICAL INDICATION: Shortness of breath TECHNIQUE: Portable chest x-ray(s). COMPARISON: December,. FINDINGS: Left IJ, dual-lumen central venous catheter again noted. Postsurgical changes again project over the heart and mild cardiomegaly, stable. Lungs show mild vascular congestion centrally, mildly increased. Patchy and partially confluent opacities again noted over the right lower lung about the same. Similar opacities now project over the lower half of left hemithorax, new from comparison. Small right and moderate left pleural effusions,increased on the left. No apparent pneumothorax. Degenerative change again noted in the thoracic spine. Impression 1. Increasing vascular congestion, left lower lung atelectasis versus infiltrates and left pleural effusion. 2. Otherwise, stable. Report Dictated on Electronically Signed By: Miguel A Victoria MD Electronically Signed Date/Time: 01/22/2024 7:56 PM EDT CXR (2V): No results found for this or any previous visit. CT Chest: Results for orders placed during the hospital encounter of 11/15/23 CT chest wo IV contrast Narrative Patient Name: JOSE JOHN : 1945 Exam Date/Time: 11/17/2023 10:44 Procedure: CT CHEST WO IV CONTRAST Ordering Provider: MOORE GRACE Reason For Exam: Pre cabg workup CT chest without contrast HISTORY: Preoperative Protocol: 3 mm axial images without intravenous contrast Dose reduction was employed with automated exposure control. Small to moderate right and small left pleural effusions. The lungs and pleural spaces are clear. No lymphadenopathy. Adrenal glands are normal. Impression Small to moderate right and small left pleural effusions. Report Dictated on Electronically Signed By: Jose Mejia MD Electronically Signed Date/Time: 11/17/2023 3:28 PM EDT CTA Chest: Results for orders placed during the hospital encounter of 01/22/24 CT chest angiogram w and/or wo IV contrast Narrative [facility]: [facility] 1945 [id number] Exam Date/Time: 01/23/2024 00:36 Procedure: CT CHEST ANGIOGRAM W AND/OR WO IV CONTRAST Ordering Provider: WILD KATHRYN Reason For Exam: Concern for PE History: Chest discomfort. Comparison: 11/23/2023 Findings: Dose reduction was employed with automated exposure control. Enhanced imaging of the chest was performed with 1 mm slices from neck to upper abdomen. 75 cc isovue 370 utilized. Additional images: 3-D imaging created and reviewed on independent platform for better detection ofpathology. Airway:Grossly patent. Mediastinum and great vessels: Cardiac enlargement. Atherosclerotic calcifications. No large central PE visualized. .No convincing adenopathy. Previously seen upper/superior mediastinal paratracheal soft tissue or fluid focus not clearly visualized currently. Limited by beam hardening artifact. Respiratory motion limits evaluation of more peripheral vascular structures and parenchyma. LUNGS:Abnormal. Volume loss related to effusions which may be loculated. Infiltrate densities especially left upper lobe. Compressive atelectasis lower lobes bilaterally. Worsening volume loss especially on the left compared to prior, mostly due to increasing effusion. Spine: No convincing acute or occult process.. Upper abdomen: No convincing evidence of acute process.. Cholecystectomy. Impression Impression:No large central PE. Effusions, infiltrates, atelectasis. Findings concerning for pneumonia. Worsening volume loss especially on the left compared to prior. Follow-up recommended.. Report Dictated on Electronically Signed By: Jorge Purdy MD Electronically Signed Date/Time: 01/23/2024 12:50 AM EDT Other Studies: Reviewed and as per electronic record. CxR/CT images personally reviewed by me when available; salient findings summarized in A/P. Current Facility-Administered Medications: acetaminophen (Tylenol) tablet 650 mg, 650 mg, Oral, q6h PRN, Jaleel Duvall MD, 650 mg at 01/24/24 2019 amiodarone (Pacerone) tablet 200 mg, 200 mg, Oral, Daily, Jaleel Duvall MD, 200 mg at 01/25/24 0847 aspirin chewable tablet 81 mg, 81 mg, Oral, Daily, Jaleel Duvall MD, 81 mg at 01/25/24 0847 atorvastatin (Lipitor) tablet 80 mg, 80 mg, Oral, Daily, Jaleel Duvall MD, 80 mg at 01/25/24 0847 cefTRIAXone (Rocephin) 1,000 mg in sodium chloride 0.9 % 50 mL IVPB Mini-Bag Plus, 1,000 mg, IntraVENous, q24h, Jaleel Duvall MD, Stopped at 01/25/24 0434 collagenase 250 UNIT/GM ointment, , Topical, Daily, Jaleel Duvall MD, Given at 01/25/24 0611 dextrose 5 % infusion, 100 mL/hr, IntraVENous, PRN, Jaleel Duvall MD dextrose 50 % solution 12.5 g, 12.5 g, IntraVENous, PRN, Jaleel Duvall MD gabapentin (Neurontin) capsule 100 mg, 100 mg, Oral, BID, Jaleel Duvall MD, 100 mg at 01/25/24 0847 glucagon (human recombinant) injection 1 mg, 1 mg, IntraMUSCular, PRN, Jaleel Duvall MD glucose oral gel 15 g, 15 g, Oral, PRN, Jaleel Duvall MD heparin injection 1,900 Units, 1,900 Units, IntraCATHeter, PRN, Kaushal Santiago MD, 1,900 Units at 01/23/241940 heparin injection 2,000 Units, 2,000 Units, IntraCATHeter, PRN, Kaushal Santiago MD, 2,000 Units at 01/23/241940 heparin injection 5,000 Units, 5,000 Units, SubCUTAneous, 3 times per day, Jaleel Duvall MD, 5,000 Units at 01/25/24610 insulin glargine (Lantus) injection 7 Units, 7 Units, SubCUTAneous, Nightly, Jaleel Duvall MD, 7 Units at 01/24/242018 ipratropium-albuterol (Duo-Neb) 0.5-2.5 mg/3 mL nebulizer solution 3 mL, 3 mL, Nebulization, TID PRN, Jaleel Duvall MD ipratropium-albuterol (Duo-Neb) 0.5-2.5 mg/3 mL nebulizer solution 3 mL, 3 mL, Nebulization, TID, Jaleel Duvall MD, 3 mL at 01/25/24 08 mometasone-formoterol (Dulera 100) 100-5 MCG/ACT inhaler 2 puff, 2 puff, Inhalation, BID, Arun Lancaster MD, 2 puff at 01/25/24 08 pantoprazole (ProtoNix) EC tablet 40 mg, 40 mg, Oral, qAM AC, Jaleel Duvall MD, 40 mg at 01/25/24610 predniSONE (Deltasone) tablet 40 mg, 40 mg, Oral, Daily, Arun Lancaster MD, 40 mg at 01/25/24846 QUEtiapine (SEROquel) tablet 25 mg, 25 mg, Oral, q8h PRN, Kanwal Simms MD, 25 mg at 01/24/242018 sertraline (Zoloft) tablet 50 mg, 50 mg, Oral, Daily, Jaleel Duvall MD, 50 mg at 01/25/24846 sodium hypochlorite (Dakin's (HALF-Strength)) 0.25 % external solution, , Irrigation, Daily, Jaleel Duvall MD, Given at 01/25/24610 tamsulosin (Flomax) 24 hr capsule 0.4 mg, 0.4 mg, Oral, Daily, Jaleel Duvall MD, 0.4 mg at 01/25/24846 tiotropium (Spiriva Respimat) 2.5 MCG/ACT inhaler 2 puff, 2 puff, Inhalation, Daily, Arun Lancaster MD, 2 puff at 01/25/24 0848 Allergies Allergies Allergen Reactions Lisinopril Wheezing Penicillins Anaphylaxis Sulfa Antibiotics Anaphylaxis Levofloxacin Nausea Only Associated attestation - Arun Lancaster MD - 01/25/2024 1:18 PM EDT I have personally performed a [id number] diagnostic evaluation on this patient on date of eylyusu41/21/24. History, labs, imaging studies, and electronic medical record have been reviewed by me. This note documented by the [x]fellow []resident []ALEJANDRO reflects my history, exam, and medical decision making. I have reviewed and agree with the care plan. Changes were made in the orders as necessary. ROS documentation was reviewed and negative unless otherwise stated in HPI. Additional pertinent interval history, ROS, and physical exam findings: 78-year-old male with a history of chronic hypoxemic respiratory failure on 2 LPM supplemental O2, COPD (spirometry 11/20/23 showed moderate airflow obstruction), CAD s/p recent CABG, ischemic cardiomyopathy, ZOFIA on CKD stage G4 (dialysis-dependent), prior tobacco abuse [facility]. CTA chest 01/23/24 showed bilateral pleural effusions (left > right), bibasilar consolidations and atelectasis concerning for possible pneumonia. Pulmonary consulted for increasing oxygen requirements. He underwent left thoracentesis 01/24/24, removed 1400 mL of fluid. He underwent right thoracentesis 01/25/24, removed 400 mL of fluid. Patient states symptoms overall are improved compared to admission. He is somewhat confused at times but overall pleasant, resting comfortable, hemodynamically stable, no acute distress. Oxygen requirements down to 3 LPM. Assessment: Acute on chronic hypoxemic respiratory failure Bilateral pleural effusions, left > right Bibasilar atelectasis Bibasilar consolidations concerning for CAP COPD Chronic HFrEF, ischemic cardiomyopathy CAD s/p CABG ZOFIA on CKD stage G4, dialysis-dependent Plan: He had bilateral thoracenteses last admission, right side appeared transudative (Staph epi in [facility] contaminant), overall consistent with underlying cardiac and renal disease Suspect recurrent hypoxia is largely driven by large bilateral effusions, left greater than right, underwent repeat left-sided thoracentesis 01/24/24 with 1400 mL removed, studies indicate weak exudate Right thoracentesis today yielded 400 mL of fluid Reasonable to treat for pneumonia, recommend 5 days of antibiotics, try to obtain sputum for analysis if able, last admission he had Serratia pneumonia that was sensitive to ceftriaxone Low concern for acute COPD exacerbation, but reasonable to continue 5 days of steroids Continue empiric maximum inhalation therapy with Dulera/Spiriva, consolidate to Trelegy or Breztri on discharge Continue scheduled Duonebs OPEP, IS, PT, OT, out of bed to chair, etc. Wean supplemental O2 for goal SpO2 > 92% given underlying cardiac disease Patient has improved notably, no further recommendations from pulmonary service, will follow peripherally for now, please reach out with any questions or concerns Arun Lancaster MD Pulmonary & Critical Care Medicine [facility] Pager #[phone] * Kaushal Santiago MD - 01/25/2024 12:03 PM EDT [facility] Progress Note SUBJECTIVE: Jose John is a 78 y.o. male with PMHX oif T2DM, essential HTN and ZOFIA on CKD4 presented to the hospital with worsening SOB. Patient seen this am, s/p thoracentesis today, says feels much better after UF yesterday. Medications Scheduled Meds:amiodarone, 200 mg, Oral, Daily aspirin, 81 mg, Oral, Daily atorvastatin, 80 mg, Oral, Daily cefTRIAXone, 1,000 mg, IntraVENous, q24h collagenase, , Topical, Daily gabapentin, 100 mg, Oral, BID heparin, 5,000 Units, SubCUTAneous, 3 times per day insulin glargine, 7 Units, SubCUTAneous, Nightly ipratropium-albuterol, 3 mL, Nebulization, TID mometasone-formoterol, 2 puff, Inhalation, BID pantoprazole, 40 mg, Oral, qAM AC predniSONE, 40 mg, Oral, Daily sertraline, 50 mg, Oral, Daily sodium hypochlorite, , Irrigation, Daily tamsulosin, 0.4 mg, Oral, Daily tiotropium, 2 puff, Inhalation, Daily Continuous Infusions: Prn Meds : PRN medications: acetaminophen, dextrose, dextrose, glucagon (rDNA), glucose, heparin, heparin, ipratropium-albuterol, QUEtiapine Home Meds: Current Facility-Administered Medications on File Prior to Encounter Medication Dose Route Frequency Provider Last Rate Last Admin [DISCONTINUED] GENERIC EXTERNAL MEDICATION Generic External Data Provider [DISCONTINUED] GENERIC EXTERNAL MEDICATION Generic External Data Provider [DISCONTINUED] GENERIC EXTERNAL MEDICATION Generic External Data Provider [DISCONTINUED] GENERIC EXTERNAL MEDICATION Generic External Data Provider [DISCONTINUED] GENERIC EXTERNAL MEDICATION Generic External Data Provider [DISCONTINUED] GENERIC EXTERNAL MEDICATION Generic External Data Provider [DISCONTINUED] GENERIC EXTERNAL MEDICATION Generic External Data Provider [DISCONTINUED] GENERIC EXTERNAL MEDICATION Generic External Data Provider [DISCONTINUED] GENERIC EXTERNAL MEDICATION Generic External Data Provider [DISCONTINUED] GENERIC EXTERNAL MEDICATION Generic External Data Provider [DISCONTINUED] GENERIC EXTERNAL MEDICATION Generic External Data Provider [DISCONTINUED] GENERIC EXTERNAL MEDICATION Generic External Data Provider [DISCONTINUED] GENERIC EXTERNAL MEDICATION Generic External Data Provider [DISCONTINUED] GENERIC EXTERNAL MEDICATION Generic External Data Provider [DISCONTINUED] GENERIC EXTERNAL MEDICATION Generic External Data Provider [DISCONTINUED] GENERIC EXTERNAL MEDICATION Generic External Data Provider [DISCONTINUED] GENERIC EXTERNAL MEDICATION Generic External Data Provider [DISCONTINUED] GENERIC EXTERNAL MEDICATION Generic External Data Provider [DISCONTINUED] GENERIC EXTERNAL MEDICATION Generic External Data Provider [DISCONTINUED] GENERIC EXTERNAL MEDICATION Generic External Data Provider Current Outpatient Medications on File Prior to Encounter Medication Sig Dispense Refill amiodarone (Pacerone) 200 MG tablet Take 1 tablet (200 mg) by mouth daily. 0 aspirin 81 MG chewable tablet Chew 1 tablet (81 mg) daily. 0 atorvastatin (Lipitor) 80 MG tablet Take 1 tablet (80 mg) by mouth daily. 0 gabapentin (Neurontin) 100 MG capsule Take 1 capsule (100 mg) by mouth 2 times daily. 0 insulin glargine (Lantus) 100 UNIT/ML injection Inject 7 Units under the skin Nightly. 0 ipratropium-albuterol (Duo-Neb) 0.5-2.5 mg/3 mL nebulizer solution Take 3 mL by nebulization 3 times daily as needed for wheezing or shortness of breath. 0 omeprazole OTC (PriLOSEC OTC) 20 MG EC tablet Take 20 mg by mouth in the morning and 20 mg in the evening. Take before meals. Do not crush, chew, or split.. sertraline (Zoloft) 50 MG tablet Take 1 tablet (50 mg) by mouth daily. 0 tamsulosin (Flomax) 0.4 MG 24 hr capsule Take 0.4 mg by mouth daily. OBJECTIVE Physical BP 108/51 Pulse 84 Temp 36.6 C (97.9 F) (Temporal) Resp 18 Ht 1.778 m (5' 10) Wt 62.4 kg(137 lb 9.6 oz) SpO2 98% BMI 19.74 kg/m 24HR INTAKE/OUTPUT: Intake/Output Summary (Last 24 hours) at 01/25/2024 1203 Last data filed at 01/25/2024 0630 Gross per 24 hour Intake 300 ml Output 0 ml Net 300 ml General: NAD, alert Head: Atraumatic on anterior inspection Psych: appropriate Eyes: Lids symmetric Chest: bilateral vesicular breath sounds, + rales Cardiac: S1, S2 Abdomen: Nontender SKIN: dry Extremities: Trace lower extremity edema Data Last 3 CMP: Recent Labs 01/22/248 01/24/24 0516 01/25/24 0619 NA 133* 134* 132* K 4.7 5.1 5.2* CL 96* 98 98 CO2 28 31* 26 BUN 29* 24* 43* CREATININE 5.26* 4.11* 6.04* CALCIUM 8.7 8.7 8.5 PROT -- 6.6 6.0* BILITOT -- 0.4 0.3 ALKPHOS -- 79 71 AST -- 60* 69* ALT -- 76* 95* Last 3 CBC: Recent Labs 01/22/248 01/24/24 0516 01/25/24 0619 WBC 8.4 6.9 13.0* RBC 2.94* 2.73* 2.47* HGB 8.3* 7.7* 7.0* HCT 27.2* 25.3* 23.1* MCV 92.5 92.7 93.5 MCH 28.2 28.2 28.3 MCHC 30.5 30.4* 30.3* RDW 16.4* 16.3* 16.1* PLT 265 229 227 MPV 9.1 10.1 10.1 ASSESSMENT Patient Active Problem List Diagnosis Date Noted Shortness of breath 01/23/2024 Severe malnutrition (CMS/HCC) ([facility]) 12/07/2023 S/P CABG (coronary artery bypass graft) 11/21/2023 NSTEMI (non-ST elevated myocardial infarction) ([facility]) 11/19/2023 CKD (chronic kidney disease) stage 4, GFR 15-29 ml/min ([facility]) 11/19/2023 Cardiomyopathy, ischemic 11/19/2023 Coronary artery disease 11/17/2023 Multi-vessel coronary artery stenosis 11/17/2023 Carotid artery bruit 11/17/2023 Carotid arterial disease ([facility]) 11/17/2023 Unstable angina (CMS/HCC) ([facility]) 11/15/2023 ASSESSMENT/PLAN: Jose John is a 78 y.o. male with PMHX oif T2DM, essential HTN and ZOFIA on CKD4 presented to the hospital with worsening SOB. We are consulted for ongoing dialysis management. ZOFIA on advanced CKD initiated on iHD 12/2023 progressing towards ESRD Anemia of CKD CKD MBD Acute respiratory failure PLAN: - seen on on iHD today, anticipate being able to return to MWF schedule while he remains in -patient, will re-evaluate in the AM for additional UF - can give 250 mg IV iron x4 when concerns for infection have been addressed. Transfuse for Hg <7 - Daily BMP, phos, Ca, albumin 2x weekly - no indication for phos binders, goal 3.5-5.5 - accurate I&O - monitor for renal recovery - dose meds for eGFR < 15 - Daily nephrocaps while on [employer] Kaushal Santiago MD 01/25/2024 12:03 PM * Ludmila Joy - 01/25/2024 9:34 AM EDT Images from the original note were not included. OCCUPATIONAL THERAPY [facility] Initial Evaluation Name/MRN: Jose John ([id number]) Evaluation Date: 01/25/2024 Date of : 1945 Admission Date: 01/22/2024 6:51 PM Age: 78 y.o. Room/Bed: [facility]/W4-438 A Discharge Recommendation: IP Rehab Equipment Needed: Yes Mobility Devices: Walker Walker: Rolling Assessment IMPRESSION: Patient admitted due to symptoms of shortness of breath. Chart reports s/p CABG - complications, Patient was receiving care and services at [facility] prior to admission. Patient self-reports PLOF prior to CABG as being indep in all ADLs and IADls. Patient reports living with spouse in 1st floor set up. Patient reports since CABG he is needing more assistance with self care and mobility. Patient observed this session and required min a for bed mobility, transfer, and static standing balance. Patient declined ambulation this session. Patient demonstrates a decrease in function from baseline and would benefit from skilled IP OT services to improve overall functional performance, safety, and independence in daily activities. DC recommendations to IP rehab. Performance Deficits /Impairments: Decreased Functional Mobility, Decreased ADL status, Decreased Strength, Decreased Endurance, and Decreased Balance Prognosis: Good Decision Making: Low Complexity Subjective Patient reports no pain. Pain: Pt denies any current pain. Past Medical History: No past medical history on file. Past Surgical History: No past surgical history on file. Admission Diagnosis: Patient Active Problem List Diagnosis Date Noted Shortness of breath 01/23/2024 Severe malnutrition ([facility]) ([facility]) 12/07/2023 S/P CABG (coronary artery bypass graft) 11/21/2023 NSTEMI (non-ST elevated myocardial infarction) ([facility]) 11/19/2023 CKD (chronic kidney disease) stage 4, GFR 15-29 ml/min ([facility]) 11/19/2023 Cardiomyopathy, ischemic 11/19/2023 Coronary artery disease 11/17/2023 Multi-vessel coronary artery stenosis 11/17/2023 Carotid artery bruit 11/17/2023 Carotid arterial disease ([facility]) 11/17/2023 Unstable angina ([facility]) ([facility]) 11/15/2023 Medical Precautions: Droplet Proper PPE donned/doffed in accordance with facility standards. Fall Risk: Chavez Fall Risk Score: 60 (High Risk) Precautions/Restrictions: fall risk. Family/Caregiver Present: none Overall Cognitive Status: WNL Overall Orientation Status: Oriented x4 Social/Functional History Patient admitted from home. Lives With: Spouse Type of Home: single family home Home Layout: per pt, one level home Home Access: Stairs to Enter with Rails (# of stairs: 2) Bathroom Shower/Tub: Walk in Shower and Grab Bars, shower seat Toilet: Standard Home Equipment: none Homemaking Responsibilities: Independent Receives Help From: Spouse Active Bill Recapitulation Clerk: Prior Level of Function ADL Assistance: Independent Ambulation Assistance: Independent Transfer Assistance: Independent Objective ADLs LE Dressing: Contact Guard Upper Extremity Assessment AROM: WNL PROM: Not assessed this session Strength: WFL Vision: not assessed this session Hearing: normal Bed Mobility Supine to sit: Min Assist Sit to supine: Min Assist Transfers/Functional Mobility Sit to stand: Min Assist Stand to sit: Min Assist Device(s) used: front wheeled walker AM-PAC AM-PAC Inpatient Daily Activity Raw Score: 21 ADL Inpatient CMS G-Code Modifier: CJ Plan Pt would benefit from skilled acute OT services to address Balance Training, Functional Mobility Training, Endurance Training, and Self-Care/ADL Training. Frequency: 3x/week for 4 weeks Barriers: None Prognosis: excellent Safety/Education Safety Safety Devices in place: call light within reach, left in bed, and bed alarm in place Restraints: No Education Education Given To: patient Education Provided: OT Role and Plan of Care Education Method: Verbal Barriers to Learning: None Education Outcome: Verbalized Understanding Goals Patient Stated Goal: To return home to Encounter Problems Encounter Problems (Active) Balance Patient will maintain dynamic standing balance with modified independence and use of least restrictive device in order to demonstrate decreased risk of falling. Start: 01/25/24 Dressings Lower Extremities Patient will dress lower body with mod I using adaptive strategies as needed. Start: 01/25/24 Mobility Patient will demonstrate functional ambulation utilizing least restrictive device with mod I. Start: 01/25/24 Toileting Patient will complete toileting tasks at standard toilet with modified independence. Start: 01/25/24 Transfers Patient will complete functional transfer with least restrictive device with modified independence in order to prepare for ambulation. Start: 01/25/24 Therapy Time Individual Co-treatment Time In 0903 Time Out 0916 Minutes 13 Ludmila Joy Patient's Occupational Therapy Plan of Care supervision is transferred to a [facility] Occupational Therapist. Goals and/or treatment plan was established in collaboration with patient/family/other representatives. * Knawal Simms MD - 01/25/2024 8:19 AM EDT Hospitalist Progress Note 01/25/2024 Subjective: Admit Date: 01/22/2024 PCP: OLENA GABRIEL Room#: W4-438/W4-438 A Brief Hospital course: Jose is a 78 y.o. male presented with SOB. Presented with chest pain, shortness of breath. CXRSmall right and moderate left pleural effusions, increased on the left, BNP 15510. Past history of ESRD, on HD three times weekly. D-Dimer elevated, CTA neg for PE, findings suggestive of Infiltrates, Pro calcitonin mildly elevated, pending blood cultures. Admitted for further evaluation and management. Nephrology following IR guided Thoracentesis, left side on 01/23 with removal of 1400 mL, scheduled for right side today Pulmonology seen the patient, appreciated IV Ceftriaxone PT/OT recommends IP rehab Geriatrics consulted for confusion and paranoid behavior Interval History: 01/25/2024-No overnight issues. Patient is seen and examined Lying on his bed, appears to be not in acute distress Labs reviewed, shows ESRD picture, WBC 13, elevated Case and plan discussed with patient and bedside nurse. All questions answered. Past Medical History: No past medical history on file. Adult diet Regular; Low Potassium (Less than 3000 mg/day) 24HR INTAKE/OUTPUT: Intake/Output Summary (Last 24 hours) at 01/25/2024 0819 Last data filed at 01/25/2024 0630 Gross per 24 hour Intake 300 ml Output 0 ml Net 300 ml LABS: CBC: Recent Labs 01/22/24191701/24/24 0516 01/25/24 0619 WBC 8.4 6.9 13.0* RBC 2.94* 2.73* 2.47* HGB 8.3* 7.7* 7.0* HCT 27.2* 25.3* 23.1* MCV 92.5 92.7 93.5 RDW 16.4* 16.3* 16.1* PLT 265 229 227 BMP: Recent Labs 01/22/24191701/24/24 0516 01/25/24 0619 NA 133* 134* 132* K 4.7 5.1 5.2* CL 96* 98 98 CO2 28 31* 26 BUN 29* 24* 43* CREATININE 5.26* 4.11* 6.04* GLUCOSE 85 209* 300* CALCIUM 8.7 8.7 8.5 ANIONGAP 9 4 7 LIVER PROFILE: Recent Labs 01/24/24 0516 01/25/24 0619 AST 60* 69* ALT 76* 95* BILITOT 0.4 0.3 ALKPHOS 79 71 PROT 6.6 6.0* PT/INR: No results for input(s): PROTIME, INR in the last 72 hours. CARDIAC ENZYMES: Recent Labs 01/22/24 1918 01/22/24 2353 01/23/24 0310 TROPONINI 0.023 0.023 0.024 Procalcitonin: Lab Results Component Value Date PROCAL 0.38 (H) 01/22/2024 COVID-19 PCR: No results for input(s): COVID19 in the last 72 hours. Objective: Vitals: BP 112/51 (BP Location: Right arm, Patient Position: Lying) Pulse 79 Temp 36.6 C (97.9 F) (Temporal) Resp 18 Ht 5' 10 (1.778 m) Wt 137 lb 9.6 oz (62.4 kg) SpO2 97% BMI 19.74 kg/m Pulse Ox: SpO2 Av % Min: 95 % Max: 100 % Supplemental O2: O2 Flow Rate (L/min): 3 L/min Physical Exam HENT: Head: Normocephalic and atraumatic. Mouth/Throat: Mouth: Mucous membranes are moist. Cardiovascular: Rate and Rhythm: Normal rate and regular rhythm. Heart sounds: Murmur heard. Pulmonary: Effort: Pulmonary effort is normal. Breath sounds: Decreased breath sounds present. Abdominal: Palpations: Abdomen is soft. Skin: General: Skin is warm and dry. Neurological: Mental Status: He is alert and oriented to person, place, and time. Psychiatric: Mood and Affect: Mood normal. Medications: Scheduled PRN amiodarone, 200 mg, Oral, Daily aspirin, 81 mg, Oral, Daily atorvastatin, 80 mg, Oral, Daily cefTRIAXone, 1,000 mg, IntraVENous, q24h collagenase, , Topical, Daily gabapentin, 100 mg, Oral, BID heparin, 5,000 Units, SubCUTAneous, 3 times per day insulin glargine, 7 Units, SubCUTAneous, Nightly ipratropium-albuterol, 3 mL, Nebulization, TID mometasone-formoterol, 2 puff, Inhalation, BID pantoprazole, 40 mg, Oral, qAM AC predniSONE, 40 mg, Oral, Daily sertraline, 50 mg, Oral, Daily sodium hypochlorite, , Irrigation, Daily tamsulosin, 0.4 mg, Oral, Daily tiotropium, 2 puff, Inhalation, Daily PRN medications: acetaminophen, dextrose, dextrose, glucagon (rDNA), glucose, heparin, heparin, ipratropium-albuterol, QUEtiapine Continuous Assessment Data: (CAT1) Reviewed 3 or more notes from different specialty or health system (each=1). (CAT1) Reviewed 3 or more labs/studies previously ordered by me not previously counted (each=1, panels count as 1). (CAT1) Ordered 2 new labs and/or studies (each=1, panels count as 1). (LOW: 2x CAT1 or independent historian MOD: 3x CAT1 or 1x CAT3 EXTENSIVE: 3x CAT1 and 1x CAT3) Acute, acute on chronic, unstable/uncontrolled chronic problems/diagnoses: Acute hypoxic respiratory failure with shortness of breath Paranoid/confused Diabetes mellitus with hyperglycemia Malnutrition unspecified Stable chronic problems affecting care, new non-acute diagnoses: ESRD Plan As a result of the above findings & factors, the following mgmt was pursued: - C/W IV Ceftriaxone - Nephrology following -IR guided Thoracentesis, left side on 01/23 with removal of 1400 mL, scheduled for right side today -Pulmonology seen the patient, appreciated - Geriatrics consulted - Home Medications as ordered - IR thoracentesis - am labs, replace lytes prn - PT/OT/CM/SW - delirium precautions: increase activity, limit nighttime disturbances, and avoid anticholinergic meds, benzos, etc - DVT prophylaxis: enoxaparin and encourage ambulation Complexity: Acute illness or injury posing a threat to life or body function (HIGH). Risk: Advance Directive: Prior Anticipated Discharge - Date -2 to 3 days - Location -TBD - Pending the following -clinical course, consult recommendations, PT/OT Total time spent (which include face to face and non face to face encounters) : 39.5 minutes Extended Emergency Contact Information Primary Emergency Contact: Deepti John (POA) Mobile Relation: Spouse Secondary Emergency Contact: Juan Manuel John Mobile Relation: Son Preferred language: Romanian Pressing Machine Operator needed? No Kanwal Simms MD Division of Hospitalist Medicine Inpatient Medical Services/[facility] * [facility] 01/25/2024 8:05 AM EDT Images from the original note were not included. PHYSICAL THERAPY [facility] Initial Evaluation Name/MRN: Jose John ([id number]) Evaluation Date: 01/25/2024 Date of : 1945 Admission Date: 01/22/2024 6:51 PM Age: 78 y.o. Room[facility]Bed: [facility] Discharge Recommendation: IP Rehab Assessment IMPRESSION: Pt [facility] the ED from [facility] receiving rehab with SOB. Pt s/p CABG following sternal precautions. Pt is a questionable historian and demonstrates confusion. Pt required max verbal cues to keep eyes open but was willingly able to participate in therapy. Pt was min A for bed mobility, transfers and ambulation. Mod A for balance. Pt will benefit from acute care PT to address deficits. PT recommends IPR upon discharge. Diagnosis: SOB, s/p CABG - complications (11/12 - 12/24), ESRD on HD Sunday, Sunday, Sunday; Prognosis: fair Performance Deficits /Impairments: Decreased Functional Mobility, Decreased ADL status, Decreased ROM, Decreased Strength, Decreased Safety Awareness, Decreased Cognition, Decreased Endurance, and Decreased Balance Decision Making: Medium Complexity Subjective RN ok PT. Pt found sleeping on left side with O2 sensor off. RN aware of sensor. Pt required multiple verbal cues to awaken. Pt agreeable to PT. I can keep my eyes open but it requires me to concentrate hard. Pain: No pain reported and no number rating provided. No grimace observed throughout. Past Medical History: No past medical history on file. Past Surgical History: No past surgical history on file. Admission Diagnosis: Patient Active Problem List Diagnosis Date Noted Shortness of breath 01/23/2024 Severe malnutrition (CMS/HCC) (HCC) 12/07/2023 S/P CABG (coronary artery bypass graft) 11/21/2023 NSTEMI (non-ST elevated myocardial infarction) ([facility]) 11/19/2023 CKD (chronic kidney disease) stage 4, GFR 15-29 ml/min ([facility]) 11/19/2023 Cardiomyopathy, ischemic 11/19/2023 Coronary artery disease 11/17/2023 Multi-vessel coronary artery stenosis 11/17/2023 Carotid artery bruit 11/17/2023 Carotid arterial disease ([facility]) 11/17/2023 Unstable angina ([facility]) ([facility]) 11/15/2023 Medical Precautions: Droplet Proper PPE donned/doffed in accordance with facility standards. Fall Risk: Chavez Fall Risk Score: 60 (High Risk) Precautions/Restrictions: Sternal Precautions: No Pushing, No Pulling, No Lifting Greater Than 10 lbs Lines/Drains/Airways: IV, O2 Telemetry Family/Caregiver Present: none Overall Cognitive Status: Exceptions - Arousal/alertness: appropriate responses to stimuli - Following commands: follows one step commands consistently - Memory: decreased recall of biographical information - Safety judgement: + bed alarm - Problem solving: assistance required to identify errors made due to keep eyes closed majority of therapy - Initiation: requires cues for some Overall Orientation Status: Disoriented to Person and Disoriented to Place - pt said he was in [place], but stated [facility]. Pt reported his birthday as [birth year]. When asked what does [birth year] mean [place], pt reported that is my birthday. Asked pt for birthday 15 minutes later and pt reported [birth year]. Asked pt again what does [birth year] mean to you, pt stated my birthday. Pt stated his last name correct, but reported his name is Juan Manuel When asked what does Jose means he reported that's the name I was given. Vision: not assessed this session Hearing: normal Social/Functional History Patient admitted from home. Lives With: Spouse - per pt report lives with , (per past notes - is mentioned) Type of Home: single family home Home Layout: Two Level Home Home Access: Stairs to Enter with Rails (# of stairs: 3) Bathroom Shower/Tub: Walk in Shower and Grab Bars, shower seat Toilet: Standard Home Equipment: none Homemaking Responsibilities: Independent Receives Help From: Spouse Active Bill Recapitulation Clerk: Prior Level of Function ADL Assistance: Independent Ambulation Assistance: Independent Transfer Assistance: Independent Pt is a questionable historian for gathering social/functional history. Objective Lower Extremity Assessment AROM: Exceptions: unable to attain full knee extension lindsay presents about 75% ROM., rest is WFL PROM: Not assessed this session Strength: Exceptions: pt demonstrated at least 3/5 through functional movements Bed Mobility: Supine to sit: Min Assist Sit to supine: Min Assist Scooting: SBA - towards EOB Transfers Sit to stand: Min Assist, Mod Assist Stand to sit: Min Assist STS x 3 from EOB - 2 STS was min A but third min A > mod A to self correct LOB in posterior direction. Once regain, progressed to min A upon standing. Reviewed sternal precautions prior to transfer, pt unable to recall and required re-education. Ambulation Ambulation 1 Assistive device(s) used: none Assist level: Min Assist Distance (ft): 16' x 3 reps Quality of gait: reciprocal stepping, shuffling, uneven step length, wide INDU, postural sway, path deviations, instability through all phases, unsteady on feet EOB > room > EOB Balance Static seated balance - 4-5 minutes answering questions with eyes closed. Required verbal cues to open eyes, pt able to hold open for 5-10 seconds then return to closing them. Pt required min A occasionally throughout with posterior lean but progressed to SBA. Static standing balance - 2-3 minutes x 2 reps, min A - Loses balances in posterior direction, eyesclosed. Outcome Measures AM-PAC How much HELP from another person do you currently need Turning from your back to your side while in a flat bed without using bedrails?: A Little Moving from lying on your back to sitting on the side of a flat bed without using bedrails?: A Little Moving to and from a bed to a chair (including a wheelchair)?: A Little Standing up from a chair using your arms (wheelchair or bedside chair)?: A Little Walking in a hospital room?: A Little Stair climbing assessed?: No AM-PAC Inpatient Mobility Raw Score (No Stairs) : 15 [facility] Score: Walked 25 ft or more (i.e. walked outside of room) Plan Pt would benefit from skilled acute PT services to address Strengthening, ROM, Balance Training, Functional Mobility Training, Endurance Training, Gait Training, Stair Training, and Safety Education and Training. Frequency: 2x/week during current hospital admission or until additional recommendations are made Barriers: Medical complications Safety/Education Safety Safety Devices in place: call light within reach, left in bed, bed alarm in place, gait belt, and nurse notified Restraints: No Education Education Given To: patient Education Provided: PT Role, PT Goals, and Discharge Recommendations Education Method: Verbal Barriers to Learning: Cognition Education Outcome: Verbalized Understanding Goals Patient Stated Goal: to get stronger Encounter Problems Encounter Problems (Active) Mobility Patient will ambulate 100 feet with modified independence and least restrictive device in order to improve safety and independence with mobility. Start: 01/25/24 Expected End: 02/22/24 Patient will ascend and descend 3 stairs with least restrictive device and modified independence inorder to safely negotiate home. Start: 01/25/24 Expected End: 02/22/24 Transfers Patient will perform bed mobility with independence and following sternal precautions in order to improve independence and prepare for out of bed mobility. Start: 01/25/24 Expected End: 02/22/24 Patient will complete sit to stand transfer with independence to none following sternal precautionsin order to improve safety and prepare for out of bed mobility. Start: 01/25/24 Expected End: 02/22/24 Therapy Time Individual Co-treatment Time In 0734 Time Out 0801 Minutes 27 (GT - 8 minutes) MAN Bailey Patient's Physical Therapy Plan of Care supervision is transferred to a [facility] Physical Therapist. Goals and/or treatment plan was established in collaboration with patient/family/other representatives. * Candy Yepez RN - 01/24/2024 12:56 PM EDT Patient agreeable to staying at hospital. * Ursula Hubbard MD - 01/24/2024 12:47 PM EDT [facility] Geriatric Medicine Inpatient Consult Service Admission Date: 01/22/2024 Consult Date: 01/24/2024 Consult reason: Confused, paranoid, please evaluate Geriatric consult acknowledged. Please contact covering physician via Secure Chat with urgent questions or concerns. Consult will be completed on next business day. Ursula Hubbard MD 01/24/2024 12:47 PM * Candy Yepez RN - 01/24/2024 12:19 PM EDT Patient is having increased confusion and paranoia, removed youth nutritional monitor and is refusing to let staff reapply. He is also wanting to leave Dr. Mendez Becerra aware. * Kaushal Santiago MD - 01/24/2024 11:36 AM EDT [facility] Progress Note SUBJECTIVE: Jose John is a 78 y.o. male with PMHX oif T2DM, essential HTN and ZOFIA on CKD4 presented to the hospital with worsening SOB. Today more alert without any new acute complaints. Medications Scheduled Meds:amiodarone, 200 mg, Oral, Daily aspirin, 81 mg, Oral, Daily atorvastatin, 80 mg, Oral, Daily cefTRIAXone, 1,000 mg, IntraVENous, q24h gabapentin, 100 mg, Oral, BID heparin, 5,000 Units, SubCUTAneous, 3 times per day insulin glargine, 7 Units, SubCUTAneous, Nightly ipratropium-albuterol, 3 mL, Nebulization, TID methylPREDNISolone sod suc (PF), 40 mg, IntraVENous, TID pantoprazole, 40 mg, Oral, qAM AC sertraline, 50 mg, Oral, Daily tamsulosin, 0.4 mg, Oral, Daily Continuous Infusions: Prn Meds : PRN medications: acetaminophen, dextrose, dextrose, glucagon (rDNA), glucose, heparin, heparin, ipratropium-albuterol Home Meds: Current Facility-Administered Medications on File Prior to Encounter Medication Dose Route Frequency Provider Last Rate Last Admin [DISCONTINUED] GENERIC EXTERNAL MEDICATION Generic External Data Provider [DISCONTINUED] GENERIC EXTERNAL MEDICATION Generic External Data Provider [DISCONTINUED] GENERIC EXTERNAL MEDICATION Generic External Data Provider [DISCONTINUED] GENERIC EXTERNAL MEDICATION Generic External Data Provider [DISCONTINUED] GENERIC EXTERNAL MEDICATION Generic External Data Provider [DISCONTINUED] GENERIC EXTERNAL MEDICATION Generic External Data Provider [DISCONTINUED] GENERIC EXTERNAL MEDICATION Generic External Data Provider [DISCONTINUED] GENERIC EXTERNAL MEDICATION Generic External Data Provider [DISCONTINUED] GENERIC EXTERNAL MEDICATION Generic External Data Provider [DISCONTINUED] GENERIC EXTERNAL MEDICATION Generic External Data Provider [DISCONTINUED] GENERIC EXTERNAL MEDICATION Generic External Data Provider [DISCONTINUED] GENERIC EXTERNAL MEDICATION Generic External Data Provider Current Outpatient Medications on File Prior to Encounter Medication Sig Dispense Refill amiodarone (Pacerone) 200 MG tablet Take 1 tablet (200 mg) by mouth daily. 0 aspirin 81 MG chewable tablet Chew 1 tablet (81 mg) daily. 0 atorvastatin (Lipitor) 80 MG tablet Take 1 tablet (80 mg) by mouth daily. 0 gabapentin (Neurontin) 100 MG capsule Take 1 capsule (100 mg) by mouth 2 times daily. 0 insulin glargine (Lantus) 100 UNIT/ML injection Inject 7 Units under the skin Nightly. 0 ipratropium-albuterol (Duo-Neb) 0.5-2.5 mg/3 mL nebulizer solution Take 3 mL by nebulization 3 times daily as needed for wheezing or shortness of breath. 0 omeprazole OTC (PriLOSEC OTC) 20 MG EC tablet Take 20 mg by mouth in the morning and 20 mg in the evening. Take before meals. Do not crush, chew, or split.. sertraline (Zoloft) 50 MG tablet Take 1 tablet (50 mg) by mouth daily. 0 tamsulosin (Flomax) 0.4 MG 24 hr capsule Take 0.4 mg by mouth daily. OBJECTIVE Physical BP 150/67 (BP Location: Right arm, Patient Position: Lying) Pulse 97 Temp 36.6 C (97.8 F) (Temporal) Resp 18 Ht 1.778 m (5' 10) Wt 62.4 kg (137 lb 9.6 oz) SpO2 96% BMI 19.74 kg/m 24HR INTAKE/OUTPUT: Intake/Output Summary (Last 24 hours) at 01/24/2024 1136 Last data filed at 01/24/2024 0518 Gross per 24 hour Intake 305.4 ml Output -- Net 305.4 ml General: NAD, alert Head: Atraumatic on anterior inspection Psych: appropriate Eyes: Lids symmetric Chest: bilateral vesicular breath sounds, + rales Cardiac: S1, S2 Abdomen: Nontender SKIN: dry Extremities: Trace lower extremity edema Data Last 3 CMP: Recent Labs 01/22/248 01/24/24 0516 NA 133* 134* K 4.7 5.1 CL 96* 98 CO2 28 31* BUN 29* 24* CREATININE 5.26* 4.11* CALCIUM 8.7 8.7 PROT -- 6.6 BILITOT -- 0.4 ALKPHOS -- 79 AST -- 60* ALT -- 76* Last 3 CBC: Recent Labs 01/22/24191701/24/24 0516 WBC 8.4 6.9 RBC 2.94* 2.73* HGB 8.3* 7.7* HCT 27.2* 25.3* MCV 92.5 92.7 MCH 28.2 28.2 MCHC 30.5 30.4* RDW 16.4* 16.3* PLT 265 229 MPV 9.1 10.1 ASSESSMENT Patient Active Problem List Diagnosis Date Noted Shortness of breath 01/23/2024 Severe malnutrition (CMS/HCC) ([facility]) 12/07/2023 S/P CABG (coronary artery bypass graft) 11/21/2023 NSTEMI (non-ST elevated myocardial infarction) ([facility]) 11/19/2023 CKD (chronic kidney disease) stage 4, GFR 15-29 ml/min ([facility]) 11/19/2023 Cardiomyopathy, ischemic 11/19/2023 Coronary artery disease 11/17/2023 Multi-vessel coronary artery stenosis 11/17/2023 Carotid artery bruit 11/17/2023 Carotid arterial disease ([facility]) 11/17/2023 Unstable angina (CMS/HCC) ([facility]) 11/15/2023 ASSESSMENT/PLAN: Jose John is a 78 y.o. male with PMHX oif T2DM, essential HTN and ZOFIA on CKD4 presented to the hospital with worsening SOB. We are consulted for ongoing dialysis management. ZOFIA on advanced CKD initiated on iHD 12/2023 progressing towards ESRD Anemia of CKD CKD MBD Acute respiratory failure PLAN: - will plan for UF session today - Otherwise continue with iHD MWF while here - can give 250 mg IV iron x4 when concerns for infection have been addressed. Transfuse for Hg <7 - Daily BMP, phos, Ca, albumin 2x weekly - no indication for phos binders, goal 3.5-5.5 - accurate I&O - monitor for renal recovery - dose meds for eGFR < 15 - Daily nephrocaps while on [employer] Kaushal Santiago MD 01/24/2024 11:36 AM * Niya Wilde RD - 01/24/2024 11:01 AM EDT Nutrition Assessment Type and Reason for Visit: Initial, Positive Nutrition Screen (wound, weight loss) Nutrition Recommendations/Plan: Patient meets criteria for Severe Malnutrition, see below assessment. Continue diet & encourage po intake. Nepro shake BID to supplement intake (8oz, 420kcal, 19gm protein). Recommend record po intake in I/O flowsheet to monitor. Consider Neprocaps. RD will follow weekly. Malnutrition Assessment: Malnutrition Status: Severe malnutrition Context: Acute Illness Findings of the 6 clinical characteristics of malnutrition: Energy Intake: 50% or less of estimated energy requirements for 5 or more days Weight Loss: Greater than 5% over 1 month (6.8% loss in a little over 1 month) Body Fat Loss: Moderate body fat loss Fat Overlying Ribs Muscle Mass Loss: Moderate muscle mass loss Thigh (quadraceps) Fluid Accumulation: No significant fluid accumulation Substation Maintenance Technician Strength: Not Performed Nutrition Assessment: Pt admitted from rehab 01/21 with SOB. PMH includes ESRD on HD MWF, CAD s/p CABG 11/21/23, DM, chronic hypoxic respiratory failure on 2L. Labs: Na low 134, BUN elevated 24, Cr elevated 4.11, Glucose elevated 209/228 - steroid noted, elevated BNP. Medications reviewed. Chest x-ray visualized bilateralpleural effusions. PNA rule-out. Underwent HD in-house 01/22. Pt reports good appetite/intake without N/V/abd pain. Denies chew/swallow difficulty. Reports weight loss since his extended recent admission 11/14-12/24. Reports UBW was 147# prior to this. Factors that affected po intake included intubation, puree diet, lack of appetite. Pt reports he is eating well now that he is on Regular foods. States he drinks Ensure at rehab. Weight on day of discharge 12/24 was 137# - weight appears to be stablesince that time. Estimated Daily Nutrient Needs: Energy Requirements Based On: Kcal/kg Weight Used for Energy Requirements: Platter Weight for Energy Calculation (kg): 75.5 kg Total Energy Requirements (kcals/day): 25-30 kcal/kg = 9610-8139 kcal Weight Used for Protein Requirements: Platter Weight in Kg Used for Protein Requirements: 75.5 kg Estimated Total Protein (g/day): 1.2-1.5 gm/kg = 91-113 gm Estimated Daily Total Fluid (ml/day): 24-hr urine output +1000mL Nutrition Related Findings: +I/O, no edema, Alfredo 15, GI WDL, +BM Wound Type: None Current Nutrition Therapies: Adult diet Regular; Low Potassium (Less than 3000 mg/day) Current Oral Intake Average Meal Intake: 76-100% (pt reports 100% bfst consumed) Average Supplements Intake: None Ordered Anthropometric Measures: Height: 177.8 cm (5' 10) Current Body Weight: 62.4 kg (137 lb 9.6 oz) (01/22) Weight Source: Not Specified Platter Body Weight (lbs) (Calculated): 166 lbs Platter Body Weight (Kg) (Calculated): 75 kg % Platter Body Weight (Calculated): 82.9 % BMI (kg/m2) (Calculated): 19.7 Weight Adjustment For: No Adjustment BMI Categories: Normal Weight (BMI 18.5-24.9) Nutrition Diagnosis: Severe malnutrition, In context of acute illness or injury related to as evidenced by weight loss greater than or equal to 5% in 1 month, poor intake prior to admission, Criteria as identified in malnutrition assessment Increased nutrient needs related to renal dysfunction as evidenced by dialysis Nutrition Interventions: Nutrition Education/Counseling: No recommendation at this time Coordination of Nutrition Care: Continue to monitor while inpatient Goals: Goals: PO intake 75% or greater Nutrition Monitoring and Evaluation: Behavioral-Environmental Outcomes: None Identified Food/Nutrient Intake Outcomes: Food and Nutrient Intake, Supplement Intake Physical Signs/Symptoms Outcomes: Biochemical Data, GI Status, Fluid Status or Edema, Nutrition Focused Physical Findings, Weight Discharge Planning: Too soon to determine Niya Wilde RD Contact: JAZIO or *[phone] * Kanwal Simms MD - 01/24/2024 8:50 AM EDT Hospitalist Progress Note 01/24/2024 Subjective: Admit Date: 01/22/2024 PCP: OLENA GABRIEL [facility] A Brief Hospital course: Jose is a 78 y.o. male presented with SOB. Presented with chest pain, shortness of breath. CXRSmall right and moderate left pleural effusions, increased on the left, BNP 98158. Past history of ESRD, on HD three times weekly. D-Dimer elevated, CTA neg for PE, findings suggestive of Infiltrates, Pro calcitonin mildly elevated, pending blood cultures. Admitted for further evaluation and management. Nephrology consulted IR guided Thoracentesis ordered IV Ceftriaxone Interval History: 01/24/2024-No overnight issues. Patient is seen and examined Resting on his bed without in any acute distress States he still has some shortness of breath but getting better Nursing staff reported to me that patient is paranoid and somewhat confused, Seroquel as as needed ordered, geriatrics consulted Labs reviewed, shows ESRD picture Case and plan discussed with patient and bedside nurse. All questions answered. Past Medical History: No past medical history on file. Adult diet Regular; Low Potassium (Less than 3000 mg/day) 24HR INTAKE/OUTPUT: Intake/Output Summary (Last 24 hours) at 01/24/2024 0850 Last data filed at 01/24/2024 0518 Gross per 24 hour Intake 305.4 ml Output -- Net 305.4 ml LABS: CBC: Recent Labs 01/22/24191701/24/24 0516 WBC 8.4 6.9 RBC 2.94* 2.73* HGB 8.3* 7.7* HCT 27.2* 25.3* MCV 92.5 92.7 RDW 16.4* 16.3* PLT 265 229 BMP: Recent Labs 01/22/24191701/24/24 0516 NA 133* 134* K 4.7 5.1 CL 96* 98 CO2 28 31* BUN 29* 24* CREATININE 5.26* 4.11* GLUCOSE 85 209* CALCIUM 8.7 8.7 ANIONGAP 9 4 LIVER PROFILE: Recent Labs 01/24/24 0516 AST 60* ALT 76* BILITOT 0.4 ALKPHOS 79 PROT 6.6 PT/INR: No results for input(s): PROTIME, INR in the last 72 hours. CARDIAC ENZYMES: Recent Labs 01/22/24 1918 01/22/24 2353 01/23/24 0310 TROPONINI 0.023 0.023 0.024 Procalcitonin: Lab Results Component Value Date PROCAL 0.38 (H) 01/22/2024 COVID-19 PCR: No results for input(s): COVID19 in the last 72 hours. Objective: Vitals: BP 153/80 (BP Location: Right arm, Patient Position: Lying) Pulse 92 Temp 37 C (98.6 F)(Temporal) Resp 18 Ht 5' 10 (1.778 m) Wt 137 lb 9.6 oz (62.4 kg) SpO2 100% BMI 19.74 kg/m Pulse Ox: SpO2 Av.6 % Min: 81 % Max: 100 % Supplemental O2: O2 Flow Rate (L/min): 8 L/min (SpO2 on 8L 100% decreased O2 to 7L) Physical Exam HENT: Head: Normocephalic and atraumatic. Mouth/Throat: Mouth: Mucous membranes are moist. Cardiovascular: Rate and Rhythm: Normal rate and regular rhythm. Heart sounds: Murmur heard. Pulmonary: Effort: Pulmonary effort is normal. Abdominal: Palpations: Abdomen is soft. Skin: General: Skin is warm and dry. Neurological: Mental Status: He is alert and oriented to person, place, and time. Psychiatric: Mood and Affect: Mood normal. Medications: Scheduled PRN amiodarone, 200 mg, Oral, Daily aspirin, 81 mg, Oral, Daily atorvastatin, 80 mg, Oral, Daily cefTRIAXone, 1,000 mg, IntraVENous, q24h gabapentin, 100 mg, Oral, BID heparin, 5,000 Units, SubCUTAneous, 3 times per day insulin glargine, 7 Units, SubCUTAneous, Nightly ipratropium-albuterol, 3 mL, Nebulization, TID methylPREDNISolone sod suc (PF), 40 mg, IntraVENous, TID pantoprazole, 40 mg, Oral, qAM AC sertraline, 50 mg, Oral, Daily tamsulosin, 0.4 mg, Oral, Daily PRN medications: acetaminophen, dextrose, dextrose, glucagon (rDNA), glucose, heparin, heparin, ipratropium-albuterol Continuous Assessment Data: (CAT1) Reviewed 3 or more notes from different specialty or health system (each=1). (CAT1) Reviewed 3 or more labs/studies ordered by another provider not previously counted (each=1, panels count as 1). (CAT1) Ordered 2 new labs and/or studies (each=1, panels count as 1). (LOW: 2x CAT1 or independent historian MOD: 3x CAT1 or 1x CAT3 EXTENSIVE: 3x CAT1 and 1x CAT3) Acute, acute on chronic, unstable/uncontrolled chronic problems/diagnoses: Acute hypoxic respiratory failure with shortness of breath Paranoid/confused Stable chronic problems affecting care, new non-acute diagnoses: ESRD Plan As a result of the above findings & factors, the following mgmt was pursued: - C/W IV Ceftriaxone - Pulmonary consulted -Seroquel as needed ordered, geriatrics consulted - Home Medications as ordered - IR thoracentesis - am labs, replace lytes prn - PT/OT/CM/SW - delirium precautions: increase activity, limit nighttime disturbances, and avoid anticholinergic meds, benzos, etc - DVT prophylaxis: enoxaparin and encourage ambulation Complexity: Acute illness or injury posing a threat to life or body function (HIGH). Risk: Advance Directive: Prior Anticipated Discharge - Date -2 to 3 days - Location -TBD - Pending the following -clinical course, consult recommendations, PT/OT Total time spent (which include face to face and non face to face encounters) : 39 minutes Extended Emergency Contact Information Primary Emergency Contact: Johncormier (POA)Deepti Mobile Relation: Spouse Secondary Emergency Contact: Juan Manuel John Mobile Relation: Son Preferred language: Romanian Pressing Machine Operator needed? No Kanwal Simms MD Division of Hospitalist Medicine Inpatient Medical Services/[facility] * Kanwal Simms MD - 01/23/2024 7:55 AM EDT Jose is a 78 y.o. male presented with SOB. Presented with chest pain, shortness of breath. CXRSmall right and moderate left pleural effusions, increased on the left, BNP 98965. Past history of ESRD, on HD three times weekly. D-Dimer elevated, CTA neg for PE, findings suggestive of Infiltrates, Pro calcitonin mildly elevated, pending blood cultures. Admitted for further evaluation and management. Nephrology consulted IR guided Thoracentesis ordered IV Ceftriaxone Rest as per H&P documented in this [facility]06-26-2024 Note* Care Coordination - MIKE Lyons - 01/30/2024 3:17 PM EDT Social work follow up on discharge. Patient with discharge order. Patient to discharge to [facility]. Transport arranged in roundtrip for 7:30 pm continuous pickling line pickler helper via COT with Jania Shafer. TCC updated patient on discharge and transport time- he will update his . SW updated patients bedside RN, unit support representative [id number]* Care Coordination - MIKE Lyons - 01/30/2024 3:17 PM EDT Social work follow up on discharge. Patient with discharge order. Patient to discharge to [facility]. Transport arranged in roundtrip for 7:30 pm continuous pickling line pickler helper via COT with Jania Shafer. TCC updated patient on discharge and transport time- he will update his . SW updated patients bedside RN, unit support representative and [facility]. [facility] [id number] Miscellaneous Notes* Care Coordination - MIKE Lyons - 01/30/2024 3:17 PM EDT Social work follow up on discharge. Patient with discharge order. Patient to discharge to [facility]. Transport arranged in roundtrip for 7:30 pm continuous pickling line pickler helper via COT with Jania Shafer. TCC updated patient on discharge and transport time- he will update his . SW updated patients bedside RN, [facility]. * Care Coordination - Unknown Case Management - 01/30/2024 2:43 PM EDT Patient Choice Patient Name: JOSE JOHN Date of : 1945 All Providers Sent Referral Name: [facility] Phone: [phone] Address: [address] [place] [address] Name: [facility] Phone: [phone] Address: [address] [place] [address] * Care Coordination - Roxann Causey - 01/30/2024 2:42 PM EDT Discharge med list transmitted to [facility]patient [facility]. * Care Coordination - Rosalba Hills RN - 01/30/2024 1:30 PM EDT [facility] has a bed for patient today. Once discharge is written SW will set up transportation. [employer] will copy AVS. Bedside Nurse will call report. I will task [employer] to transmit MAR to [facility]. * Care Plan - Altagracia Pitts RN - 01/30/2024 10:04 AM EDT The patient is Moderately Stable - Low risk of patient condition declining or worsening The patient's goals for the shift include The clinical goals for the shift include Over the shift, the patient did not make progress toward the following goals. Barriers to progression include Problem: Potential for Compromised Skin Integrity Goal: Skin Integrity is Maintained or Improved Outcome: Progressing . Recommendations to address these barriers include Problem: Urinary Incontinence Goal: Perineal skin integrity is maintained or improved Outcome: Progressing . * Care Coordination - Rosalba Hills RN - 01/30/2024 9:23 AM EDT Images from the original note were not included. Care Management Progress Note Plan is discharge to [facility] with [facility] HD. Per [facility] In Hand they should have a bed for patient today. Discharge Milestones and Delays Expected date/time: 01/30/[address] discharge order Complete med reconciliation Case mgmt discharge readiness Clinical Stability Diagnostic Workup Test Results Patient Education Complete Expected Discharge History Expected Date/Time Set By Reviewed At 01/30/2024 Rosalba Hills RN 01/30/2024 9:23 AM 01/30/2024 Rosalba Hills RN 01/29/2024 8:57 AM 01/28/2024 Rosalba Hills RN 01/28/2024 9:27 AM 01/26/2024 Rosalba Hills RN 01/25/2024 8:42 AM 01/26/2024 Rosalba Hills RN 01/24/2024 9:19 AM 01/26/2024 Jania Ruano MD 01/23/2024 1:06 PM 01/25/2024 Jaleel Duvall MD 01/23/2024 2:19 AM Length of Stay (Days): 7 GMLOS: 4.4 * Care Plan - Lexis Araujo RN - 01/29/2024 1:20 PM EDT The patient is Moderately Stable - Low risk of patient condition declining or worsening The patient's goals for the shift include Patient will discharge to rehab The clinical goals for the shift include Patient will eat one meal in chair Over the shift, the patient did not make progress toward the following goals. Barriers to progression include N/A. Recommendations to address these barriers include N/A. * Care Coordination - Rosalba Hills RN - 01/29/2024 8:59 AM EDT Images from the original note were not included. Care Management Progress Note H/H today 8.4/26.6. Patient received PRBC'S yesterday. Plan is [facility] when bed available. Patient will get HD in house at [facility]. Patient will need OP HD center established before discharge from [facility]. Discharge Milestones and Delays Expected date/time: 01/30/[address] discharge order Complete med reconciliation Case mgmt discharge readiness Clinical Stability Diagnostic Workup Psychiatric Mental Health Nurse Recommendations Test Results PT discharge readiness OT discharge readiness Patient Education Complete Expected Discharge History Expected Date/Time Set By Reviewed At 01/30/2024 Rosalba Hills RN 01/29/2024 8:57 AM 01/28/2024 Rosalba Hills RN 01/28/2024 9:27 AM 01/26/2024 Rosalba Hills RN 01/25/2024 8:42 AM 01/26/2024 Rosalba Hills RN 01/24/2024 9:19 AM 01/26/2024 Jania Ruano MD 01/23/2024 1:06 PM 01/25/2024 Jaleel Duvall MD 01/23/2024 2:19 AM Length of Stay (Days): 6 GMLOS: 4.4 * Care Coordination - Rosalba Hills RN - 01/28/2024 10:31 AM EDT Images from the original note were not included. Care Management Progress Note Hemoglobin 6.7-Patient wanting to talk with family before he consents to transfusion. Plan is [facility] when medically stable. Discharge Milestones and Delays Expected date/time: 01/28/[address] discharge order Complete med reconciliation Case mgmt discharge readiness Clinical Stability Diagnostic Workup Test Results Patient Education Complete Expected Discharge History Expected Date/Time Set By Reviewed At 01/28/2024 Rosalba Hills RN 01/28/2024 9:27 AM 01/26/2024 Rosalba Hills RN 01/25/2024 8:42 AM 01/26/2024 Rosalba Hills RN 01/24/2024 9:19 AM 01/26/2024 Jania Ruano MD 01/23/2024 1:06 PM 01/25/2024 Jaleel Duvall MD 01/23/2024 2:19 AM Length of Stay (Days): 5 GMLOS: 4.4 * Care Coordination - Ricarda Nieto RN - 01/27/2024 11:06 AM EDT Received message back from [facility] liaison. [facility] liaison reports no beds available today at [facility]. TCC will continue to follow for add'l needs for dc. * Care Coordination - Ricarda Nieto RN - 01/27/2024 7:53 AM EDT [id number] auth needed. Awaiting bed availability at [facility]. Messaged [facility] liaison regarding bed availability today. Await [facility] liaison response. [facility] will continue to follow for add'l needs for dc. * Care Plan - Candy Yepez RN - 01/26/2024 5:38 PM EDT Problem: Potential for Compromised Skin Integrity Goal: Skin Integrity is Maintained or Improved Outcome: Progressing Goal: Nutritional status is improving Outcome: Progressing Problem: Problem Interventions Goal: Promote nutritional intake Outcome: Progressing * Care Coordination - Rosalba Hills RN - 01/25/2024 1:47 PM EDT No bed at [facility] until Sunday. * Care Plan - Doe Andujar RN - 01/25/2024 9:58 AM EDT Problem: Knowledge Deficit Goal: Patient/family/caregiver demonstrates understanding of disease process, treatment plan, medications, and discharge instructions Outcome: Progressing Problem: Potential for Compromised Skin Integrity Goal: Skin Integrity is Maintained or Improved Outcome: Progressing * Care Coordination - Rosalba Hills RN - 01/25/2024 8:43 AM EDT Images from the original note were not included. Care Management Progress Note Continues IV ATB course. Thoracentesis pending. Plan is [facility] when medically stable with in house dialysis. No insurance auth needed. Discharge Milestones and Delays Expected date/time: 01/26/[address] discharge order Complete med reconciliation Case mgmt discharge readiness Clinical Stability Diagnostic Workup Psychiatric Mental Health Nurse Recommendations Test Results PT discharge readiness OT discharge readiness Patient Education Complete Expected Discharge History Expected Date/Time Set By Reviewed At 01/26/2024 Rosalba Hills RN 01/25/2024 8:42 AM 01/26/2024 Rosalba Hills RN 01/24/2024 9:19 AM 01/26/2024 Jania Ruano MD 01/23/2024 1:06 PM 01/25/2024 Jaleel Duvall MD 01/23/2024 2:19 AM Length of Stay (Days): 2 GMLOS: 4.4 * Care Plan - Candy Yepez RN - 01/24/2024 4:39 PM EDT Problem: Potential for Compromised Skin Integrity Goal: Skin Integrity is Maintained or Improved Outcome: Progressing Goal: Nutritional status is improving Outcome: Progressing Problem: Urinary Incontinence Goal: Perineal skin integrity is maintained or improved Outcome: Progressing * Care Coordination - Roxann Causey - 01/24/2024 12:49 PM EDT Referral placed to Inpatient Rehab - [facility] TCC request. Await review and response regarding ability to accept. TCC notified. * Care Coordination - Rosalba Hills RN - 01/24/2024 12:34 PM EDT Care Managment Initial Assessment Date: 01/24/2024 Patient Name: Jose John : 1945 Patient Information Source of Information: Patient Cognition/Language: WFL - Within Functional Limits Permission given to speak with patient unit support representative/caregiver as indicated: No Confirmation of Payer with patient/family: Yes Payer Name: Medicare : Confirmation of Primary Care Physician: Confirmed PCP Name: Dr Gabriel Primary Caregiver: If assistance needed, confirmed caregiver ready, willing and able to care for patient at discharge:Yes Confirmed with: Living Arrangements Current Residence: Number of Floors Number of Entry Steps: Bed/Bath Levels: Facility: Inpatient Rehab Facility Facility Name: Patient from [facility] Plan to Return: No Lives with: Spouse/significant other Support Systems: Activities of Daily Living Ambulation: Assistance Bathing/Dressing: Assistance Elimination/Continence/Toileting: Feeding: Who Assists with Activities of Daily Living: Instrumental Activities of Daily Living Prescription Coverage: Yes Pharmacy Used: Medication Management: Transportation/Shopping: Transportation Mode: Needs Assistance with Transportation at Discharge: Yes Meal Preparation: (facility) Laundry/Cleaning: Assistance Provider Finances/Bill Paying: Communication: Independent Types of Care Services/Equipment Utilized Care Services: Dialysis Type: Durable Medical Equipment: Patient's Goal/Discharge Plan Patient expects to be discharged to: [facility] Discharge Planning Actions: Continue to follow Patient's Choice Rights and [employer] and Collaborative Relationships Disclosed as Indicated for Post-Acute Care: Interdisciplinary Team Engagement: Social Work Referral for: Additional Information: [place] per patient. From [facility]. Does not want to return there. Patient would like referral to [facility]. Patient new to Hemo Dialysis. Was getting HD in house at [facility]. Referral in [facility] to [facility]. Rosalba Hills RN * Care Plan - Jose Murrell RN - 01/24/2024 12:19 AM EDT Problem: Knowledge Deficit Goal: Patient/family/caregiver demonstrates understanding of disease process, treatment plan, medications, and discharge instructions Outcome: Progressing Flowsheets (Taken 01/24/2024 0019) Patient/family/caregiver demonstrates understanding of disease process, treatment plan, medications, and discharge instructions: Provide teaching at level of understanding * Care Plan - Candy Yepez RN - 01/23/2024 7:04 PM EDT Problem: Potential for Compromised Skin Integrity Goal: Skin Integrity is Maintained or Improved Outcome: Progressing Goal: Nutritional status is improving Outcome: Progressing * Individualized Overall Plan of Care Note - Anson Lorenzo DO - 01/23/2024 7:26 AM EDT Brief nephrology note Patient follows with [facility] for chronic dialysis - will transfer consult to facilitate continuity of care. Anson Lorenzo DO Nephrology [facility] ([facility]) Pager: [phone] Office Office Electronically Signed on 01/23/2024 at 7:26 AM documented in this encounterSKettering Health [id number] Note* Care Coordination - Unknown Case Management - 01/30/2024 2:43 PM EDT Patient Choice Patient Name: JOSE JOHN Date of : 1945 All Providers Sent Referral Name: [facility] Phone: [phone] Address: [address] [place] [address] Name: [facility] Phone: [phone] Address: [address] [place] [address] [facility] [id number] Note* Care Coordination - Unknown Case Management - 01/30/2024 2:43 PM EDT Patient Choice Patient Name: JOSE JOHN Date of : 1945 All Providers Sent Referral Name: [facility] Phone: [phone] Address: [address] [id number] Name: [facility] Phone: [phone] Address: [address] [place] [id number] [facility] [id number] Note* Care Coordination - Roxann Causey - 01/30/2024 2:42 PM EDT Discharge med list transmitted to Inpatient Rehab [facility] via [facility] per TCC request. [facility] [id number] Note* Care Coordination - Roxann Causey - 01/30/2024 2:42 PM EDT [facility] [facility] via [facility] per TCC request. [id number] Hospital course Narrative* Nazanin Smith MD - 01/30/2024 2:27 PM EDT Discharge Summary Jose John : 1945 ADMIT DATE: 01/22/2024 DISCHARGE DATE: 01/30/2024 PRIMARY CARE PHYSICIAN: OLENA GABRIEL VISIT STATUS: Admission CODE STATUS: Full Code DISCHARGE DIAGNOSES: Principal Problem: Shortness of breath Active Problems: Severe malnutrition (CMS/HCC) (HCC) Acute hypoxic respiratory failure with shortness of breath Paranoid/confused Diabetes mellitus with hyperglycemia Malnutrition unspecified 5 Acute on chronic anemia 6. 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 HOSPITAL COURSE: 78 yo male with PMH of T2DM, HTN, CKD, TIA with no residual (approx 16 years ago), tobacco use (quit 20 years ago), macular degeneration, back surgery, and BPH. Patient sent from rehab to [facility] with complaints of chest pain and shortness of breath. Noted to have bilateral pleural effusion, bilateral pleural effusions drained. Patient followed by pulmonary completed the course of antibiotics for pneumonia. Followed by nephrology continued on hemodialysis patient received PRBC transfusion for low hemoglobin. Hemoglobin has remained stable. CTS consulted for small dehiscence at distal MSI. Improved. Seen by PT OT recommended rehab. Patient will be discharged to rehab today followed by geriatrics consult overall prognosis guarded follow-up with PCP, CTS surgery, nephrology SIGNIFICANT DIAGNOSTIC STUDIES: As above CONSULTANTS: Nephrology, geriatrics, CTS, wound care RECOMMENDED NEXT STEPS: As above DISCHARGE MEDICATIONS: Medication List START taking these medications iron sucrose 200 mg in sodium chloride 0.9 % 100 mL IVPB Infuse 200 mg into a venous catheter Every 24 hours for 4 doses. QUEtiapine 25 MG tablet Commonly known as: SEROquel Take 0.5 tablets (12.5 mg) by mouth every 8 hours as needed (Confusion, agitation). tiotropium 2.5 MCG/ACT inhaler Commonly known as: Spiriva Respimat Inhale 2 puffs daily. Start taking on: January 31, 2024 CONTINUE taking these medications acetaminophen 325 MG tablet Commonly known as: Tylenol amiodarone 200 MG tablet Commonly known as: Pacerone Take 1 tablet (200 mg) by mouth daily. aspirin 81 MG chewable tablet Chew 1 tablet (81 mg) daily. atorvastatin 80 MG tablet Commonly known as: Lipitor Take 1 tablet (80 mg) by mouth daily. carvedilol 3.125 MG tablet Commonly known as: Coreg gabapentin 100 MG capsule Commonly known as: Neurontin Take 1 capsule (100 mg) by mouth 2 times daily. glucose 40 % gel oral gel Commonly known as: Glutose ipratropium-albuterol 0.5-2.5 mg/3 mL nebulizer solution Commonly known as: Duo-Neb Take 3 mL by nebulization 3 times daily as needed for wheezing or shortness of breath. Melatonin 3 MG capsule midodrine 2.5 MG tablet Commonly known as: Proamatine mirtazapine 15 MG tablet Commonly known as: Remeron pantoprazole 40 MG EC tablet Commonly known as: ProtoNix polyethylene glycol (PEG) 3350 17 g packet Commonly known as: Miralax sevelamer carbonate 800 MG tablet Commonly known as: Renvela STOP taking these medications Bisacodyl Laxative 10 MG suppository Generic drug: bisacodyl docusate sodium 100 MG capsule Commonly known as: Colace Glucagon 1 MG/0.2ML solution hydrOXYzine HCl 25 MG tablet Commonly known as: Atarax isosorbide dinitrate 5 MG tablet Commonly known as: Isordil ondansetron ODT 4 MG disintegrating tablet Commonly known as: Zofran-ODT oxyCODONE 5 MG immediate release tablet Commonly known as: Oxaydo senna-docusate sodium 8.6-50 MG tablet Commonly known as: Senokot-S simethicone 80 MG chewable tablet Commonly known as: Mylicon sodium chloride (PF) 0.9 % solution 9 mL with naloxone 0.4 MG/ML solution 0.4 mg Where to Get Your Medications These medications were sent to [id number] - [place], [place] - [address] [place] [address] iron sucrose 200 mg in sodium chloride 0.9 % 100 mL IVPB QUEtiapine 25 MG tablet tiotropium 2.5 MCG/ACT inhaler DIET: Adult diet Regular; Low Potassium (Less than 3000 mg/day) ACTIVITY: Up with assist COMPLEXITY OF FOLLOW UP: [] Moderate Complexity: follow up within 7-14 calendar days (47891) [] Severe Complexity: follow up within 7 calendar days (78962) FOLLOW UP TESTING, PENDING RESULTS OR REFERRALS AT TRANSITIONAL CARE VISIT: [] Yes [] No PENDING STUDIES: DISPOSITION: Acute Rehab FACILITY/HOME CARE AGENCY NAME: Follow up with Olen[facility] [place] [address] Follow up on INSTRUCTIONS TO MA/SW: Please call patient on day after discharge (must document patient contacted within 2 business days of discharge). FOLLOW UP QUESTIONS FOR MA/SW: 1. Did you get medications filled and taking them as instructed from discharge? 2. Are you following your discharge instructions from your hospital stay? 3. Please confirm patient is scheduled for a follow up appointment within the above time frame. DISCHARGE TIME: > 30 minutes SIGNED: Nazanin Smith MD 01/30/2024, 2:27 PM documented in this [facility]06-26-2024 Hospital Discharge instructions* Discharge Instr - Activity* Nazanin Smith MD - 01/30/2024 1:37 PM EDT Up with assist * Discharge Instr - Diet* Nazanin Smith MD - 01/30/2024 1:37 PM EDT Renal diet * Discharge Instr - [facility]* Altagracia Pitts RN - 01/24/2024 3:07 PM EDT Continuity of Care Form Patient Name: Jose John : 1945 Admit date: 01/22/2024 Discharge date: 01/30/24 Code Status Order: Prior Advance Directives: N Admitting Physician: Jaleel Duvall MD PCP: OLENA GABRIEL Discharging Nurse: altagracia Kitchen Hospital Unit/Room#: W4-438/W4-438 A Discharging Unit Phone Number: [phone] Emergency Contact: Extended Emergency Contact Information Primary Emergency Contact: Deepti John (POA) Mobile Relation: Spouse Secondary Emergency Contact: AlekJuan Manuel Mobile Relation: Son Preferred language: Romanian Pressing Machine Operator needed? No Past Surgical History: No past surgical history on file. Immunization History: There is no immunization history on file for this patient. Active Problems: Medical Problems Problem List * (Principal) Shortness of breath Unstable angina ([facility]) ([facility]) Coronary artery disease Multi-vessel coronary artery stenosis Carotid artery bruit Carotid arterial disease ([facility]) NSTEMI (non-ST elevated myocardial infarction) ([facility]) CKD (chronic kidney disease) stage 4, GFR 15-29 ml/min ([facility]) Cardiomyopathy, ischemic S/P CABG (coronary artery bypass graft) Severe malnutrition ([facility]) ([facility]) Isolation/Infection: Droplet Pneumonia rule out Nurse Assessment: Last Vital Signs: BP 119/58 Pulse 87 Temp 36.6 C (97.8 F) (Temporal) Resp 16 Ht 1.778 m (5'10) Wt 62.4 kg (137 lb 9.6 oz) SpO2 100% BMI 19.74 kg/m Last documented pain score (0-10 scale): Last Weight: Wt Readings from Last 1 Encounters: 01/23/24 62.4 kg (137 lb 9.6 oz) Mental Status: [facility] Patient Mental Status: oriented IV Access: [facility] IV Access: Dialysis Catheter - site: internal jugular left, condition patent, insertion date: 11/28/23 Nursing Mobility/ADLs: Walking Minimal assistance Transfer Minimal assistance Bathing Minimal assistance Dressing Minimal assistance Toileting Minimal assistance Feeding Independent 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 Minimal assistance Med Delivery yes Wound Care Documentation and Therapy: Wound/Incision 11/21/23 Incision Calf Anterior;Left (Active) Number of days: 64 Wound/Incision 11/21/23 Incision Sternum (Active) Number of days: 64 Wound/Incision 12/08/23 Skin Tear Scrotum (Active) Number of days: 47 Wound/Incision 12/12/23 Pressure Injury Achilles Right (Active) Site Assessment Dry 01/24/24 07 Elana-Wound Assessment Calloused 01/24/24 07 Primary Dressing Open to air 01/24/24 07 Number of days: 42 Wound/Incision 01/23/24 Incision Abdomen Upper;Midline (Active) Site Assessment Red 01/24/24 0700 Elana-Wound Assessment Red 01/24/24 0700 Drainage Description Brown;Yellow 01/24/24 07 Odor Mild 01/24/24 07 Drainage Amount Small 01/24/24 07 Primary Dressing Foam 01/24/24 0700 Dressing Status Reinforced 01/24/24 0700 Number of days: 1 Elimination: Continence: Bowel: yes Bladder: yes Urinary Catheter: None Colostomy/Ileostomy/Ileal Conduit: None Date of Last BM: 01/30/24 Intake/Output Summary (Last 24 hours) at 01/24/2024 1505 Last data filed at 01/24/2024 0518 Gross per 24 hour Intake 305.4 ml Output -- Net 305.4 ml I/O last 3 completed shifts: In: 355.4 (5.7 mL/kg) [I.V.:305.4 (4.9 mL/kg); IV Piggyback:50] Out: - (0 mL/kg) Weight: 62.4 kg Safety Concerns: at risk for falls Impairments/Disabilities: none Nutrition Therapy: Current Nutrition Therapy: Oral diet: general Routes of Feeding: oral Liquids: thin liquids Daily Fluid Restriction: no Last Modified Barium Swallow with Video (Video Swallowing Test): not done Treatments at the Time of Hospital Discharge: Respiratory Treatments: yes Oxygen Therapy: is not on home oxygen therapy. Ventilator: No ventilator support Rehab Therapies: nursing Weight Bearing Status/Restrictions: no restriction Other Medical Equipment (for information only, NOT a DME order): bedside commode Other Treatments: none Patient's personal belongings (please select all that are sent with patient): teodoro MILLS SIGNATURE: MANAGEMENT/SOCIAL WORK SECTION Inpatient Status Date: 01/23/24 Readmission Risk Assessment Score: @READMISSIONRISKDETAILS@ [facility] Address: [address] [place] [address] Dialysis Facility (if applicable) Name: [facility] in house dialysis Address: Dialysis Schedule: Phone: 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 Update Admission H&P: No change in H&P PHYSICIAN SIGNATURE: documented in this [facility]06-26-2024 Note* Care Coordination - Rosalba Hills RN - 01/30/2024 1:30 PM EDT [facility] has a bed for patient today. Once discharge is written SW will set up transportation. Wood Boring Machine Operator will copy AVS. Bedside Nurse will call report. I will task [employer] to [facility]. [facility] [id number] Note* Care Coordination - Rosalba Hills RN - 01/30/2024 1:30 PM EDT [facility] has a bed for patient today. Once discharge is written SW will set up transportation. [employer] will copy AVS. Bedside Nurse will call report. I will task [employer] to transmit MAR to [facility]. [facility] [id number] Plan of care note* Care Plan - Altagracia Pitts RN - 01/30/2024 10:04 AM EDT The patient is Moderately Stable - Low risk of patient condition declining or worsening The patient's goals for the shift include The clinical goals for the shift include Over the shift, the patient did not make progress toward the following goals. Barriers to progression include Problem: Potential for Compromised Skin Integrity Goal: Skin Integrity is Maintained or Improved Outcome: Progressing . Recommendations to address these barriers include Problem: Urinary Incontinence Goal: Perineal skin integrity is maintained or improved Outcome: Progressing . [facility] [id number] Note* Care Coordination - Rosalba Hills RN - 01/30/2024 9:23 AM EDT Images from the original note were not included. Care Management Progress Note Plan is discharge to [facility] with in house HD. Per [facility] they should have a bed for patient today. Discharge Milestones and Delays Expected date/time: 01/30/[address] discharge order Complete med reconciliation Case mgmt discharge readiness Clinical Stability Diagnostic Workup Test Results Patient Education Complete Expected Discharge History Expected Date/Time Set By Reviewed At 01/30/2024 Rosalba Hills RN 01/30/2024 9:23 AM 01/30/2024 Rosalba Hills RN 01/29/2024 8:57 AM 01/28/2024 Rosalba Hills RN 01/28/2024 9:27 AM 01/26/2024 Rosalba Hills RN 01/25/2024 8:42 AM 01/26/2024 Rosalba Hills RN 01/24/2024 9:19 AM 01/26/2024 Jania Ruano MD 01/23/2024 1:06 PM 01/25/2024 Jaleel Duvall MD 01/23/2024 2:19 AM Length of Stay (Days): 7 GMLOS: 4.4 [facility] [id number] Note* Care Coordination - Rosalba Hills RN - 01/30/2024 9:23 AM EDT Images from the original note were not included. Care Management Progress Note Plan is discharge to [facility] with in house HD. Per [facility] they should have a bed for patient today. Discharge Milestones and Delays Expected date/time: 01/30/[address] discharge order Complete med reconciliation Case mgmt discharge readiness Clinical Stability Diagnostic Workup Test Results Patient Education Complete Expected Discharge History Expected Date/Time Set By Reviewed At 01/30/2024 Rosalba Hills RN 01/30/2024 9:23 AM 01/30/2024 Rosalba Hills RN 01/29/2024 8:57 AM 01/28/2024 Rosalba Hills RN 01/28/2024 9:27 AM 01/26/2024 Rosalba Hills RN 01/25/2024 8:42 AM 01/26/2024 Rosalba Hills RN 01/24/2024 9:19 AM 01/26/2024 Jania Ruano MD 01/23/2024 1:06 PM 01/25/2024 Jaleel Duvall MD 01/23/2024 2:19 AM Length of Stay (Days): 7 GMLOS: 4.4 [facility] [id number] Nurse Note* Lexis Araujo RN - 01/29/2024 5:47 PM EDT Patient given Seroquel as ordered prn per request of patient's daughter. Per daughter, patient experiences paranoid delusions at night and calls her on the phone fearful for his safety. RN administered Seroquel to attempt to avoid night time confusion and agitation. [facility] [id number] Plan of care note* Care Plan - Lexis Araujo RN - 01/29/2024 1:20 PM EDT The patient is Moderately Stable - Low risk of patient condition declining or worsening The patient's goals for the shift include Patient will discharge to rehab The clinical goals for the shift include Patient will eat one meal in chair Over the shift, the patient did not make progress toward the following goals. Barriers to progression include N/A. Recommendations to address these barriers include N/A. [facility] [id number] Note* Care Coordination - Rosalba Hills RN - 01/29/2024 8:59 AM EDT Images from the original note were not included. Care Management Progress Note H/H today 8.4/26.6. Patient received PRBC'S yesterday. [facility]. Patient will get HD in house at [facility]. Patient will need OP HD center established before discharge from [facility]. Discharge Milestones and Delays Expected date/time: 01/30/[address] discharge order Complete med reconciliation Case mgmt discharge readiness Clinical Stability Diagnostic Workup Psychiatric Mental Health Nurse Recommendations Test Results PT discharge readiness OT discharge readiness Patient Education Complete Expected Discharge History Expected Date/Time Set By Reviewed At 01/30/2024 Rosalba Hills RN 01/29/2024 8:57 AM 01/28/2024 Rosalba Hills RN 01/28/2024 9:27 AM 01/26/2024 Rosalba Hills RN 01/25/2024 8:42 AM 01/26/2024 Rosalba Hills RN 01/24/2024 9:19 AM 01/26/2024 Jania Ruano MD 01/23/2024 1:06 PM 01/25/2024 Jaleel Duvall MD 01/23/2024 2:19 AM Length of Stay (Days): 6 GMLOS: 4.4 [facility] [id number] Note* Care Coordination - Roaslba Hills RN - 01/29/2024 8:59 AM EDT Images from the original note were not included. Care Management Progress Note H/H today 8.4/26.6. Patient received PRBC'S yesterday. [facility]. Patient will get HD in house at [facility]. Patient will need OP HD center established before discharge from [facility]. Discharge Milestones and Delays Expected date/time: 01/30/[address] discharge order Complete med reconciliation Case mgmt discharge readiness Clinical Stability Diagnostic Workup Psychiatric Mental Health Nurse Recommendations Test Results PT discharge readiness OT discharge readiness Patient Education Complete Expected Discharge History Expected Date/Time Set By Reviewed At 01/30/2024 Rosalba Hills RN 01/29/2024 8:57 AM 01/28/2024 Rosalba Hills RN 01/28/2024 9:27 AM 01/26/2024 Rosalba Hills RN 01/25/2024 8:42 AM 01/26/2024 Rosalba Hills RN 01/24/2024 9:19 AM 01/26/2024 Jania Ruano MD 01/23/2024 1:06 PM 01/25/2024 Jaleel Duvall MD 01/23/2024 2:19 AM Length of Stay (Days): 6 GMLOS: 4.4 [facility] [id number] Note* Care Coordination - Rosalba Hills RN - 01/28/2024 10:31 AM EDT Images from the original note were not included. Care Management Progress Note Hemoglobin 6.7-Patient wanting to talk with family before he consents to transfusion. Plan is [facility] when medically stable. Discharge Milestones and Delays Expected date/time: 01/28/[address] discharge order Complete med reconciliation Case mgmt discharge readiness Clinical Stability Diagnostic Workup Test Results Patient Education Complete Expected Discharge History Expected Date/Time Set By Reviewed At 01/28/2024 Rosalba Hills RN 01/28/2024 9:27 AM 01/26/2024 Rosalba Hills RN 01/25/2024 8:42 AM 01/26/2024 Rosalba Hills RN 01/24/2024 9:19 AM 01/26/2024 Jania Ruano MD 01/23/2024 1:06 PM 01/25/2024 Jaleel Duvall MD 01/23/2024 2:19 AM Length of Stay (Days): 5 GMLOS: 4.4 [facility] [id number] Note* Care Coordination - Rosalba Hills RN - 01/28/2024 10:31 AM EDT Images from the original note were not included. Care Management Progress Note Hemoglobin 6.7-Patient wanting to talk with family before he consents to transfusion. Plan is [facility] when medically stable. Discharge Milestones and Delays Expected date/time: 01/28/[address] discharge order Complete med reconciliation Case mgmt discharge readiness Clinical Stability Diagnostic Workup Test Results Patient Education Complete Expected Discharge History Expected Date/Time Set By Reviewed At 01/28/2024 Rosalba Hills RN 01/28/2024 9:27 AM 01/26/2024 Rosalba Hills RN 01/25/2024 8:42 AM 01/26/2024 Rosalba Hills RN 01/24/2024 9:19 AM 01/26/2024 Jania Ruano MD 01/23/2024 1:06 PM 01/25/2024 Jaleel Duvall MD 01/23/2024 2:19 AM Length of Stay (Days): 5 GMLOS: 4.4 [facility] [id number] Note* Care Coordination - Ricarda Nieto RN - 01/27/2024 11:06 AM EDT Received message back from [facility] liaison. [facility] liaison reports no beds available today at [facility]. TCC will continue to follow for add'l needs for dc. [facility] [id number] Note* Care Coordination - Ricarda Nieto RN - 01/27/2024 11:06 AM EDT Received message back from [facility] liaison. [facility] liaison reports no beds available today at [facility]. TCC will continue to follow for add'l needs for dc. [facility] [id number] Note* Care Coordination - Ricarda Nieto RN - 01/27/2024 7:53 AM EDT [id number]-No auth needed. Awaiting bed availability at [facility]. Messaged [facility] liaison regarding bed availability today. Await [facility] liaison response. TCC will continue to follow for add'l needs for dc. [facility] [id number] Note* Care Coordination - Ricarda Nieto RN - 01/27/2024 7:53 AM EDT [id number] auth needed. Awaiting bed availability at [facility]. Messaged [facility] liaison regarding bed availability today. Await [facility] liaison response. TCC will continue to follow for add'l needs for dc. [facility] [id number] Plan of care note* Care Plan - Candy Yepez RN - 01/26/2024 5:38 PM EDT Problem: Potential for Compromised Skin Integrity Goal: Skin Integrity is Maintained or Improved Outcome: Progressing Goal: Nutritional status is improving Outcome: Progressing Problem: Problem Interventions Goal: Promote nutritional intake Outcome: Progressing [facility] [id number] Note* Care Coordination - Rosalba Hills RN - 01/25/2024 1:47 PM EDT No bed at [facility] until Sunday. [facility] [id number] Note* Care Coordination - Rosalba Hills RN - 01/25/2024 1:47 PM EDT No bed at [facility] until Sunday. [facility] [id number] Consult note* Ursula Hubbard MD - 01/25/2024 1:22 PM EDTAssociated Order(s): IP CONSULT TO GERIATRICS Images from the original note were not included. [facility] Inpatient Consult Service Admission Date: 01/22/2024 Admission Status: INPATIENT Reason for Appointment Chief Complaint Patient presents with Shortness of Breath Pt [facility] in [facility] effusion. Pt states he has 3/10 left side chest pain . Hx ofCABG in November of this year. . Geriatrics consulted for Confused, paranoid, please evaluate Assessment Principal Problem: Shortness of breath Active Problems: Severe malnutrition (CMS/HCC) (HCC) Plan During this encounter, I spent 60 minutes -Reviewing previous notes, -Reviewing labs, -Counseling/educating the patient/family/caregiver, and -Documenting clinical information in the patients electronic record. Delirium -Risk factors for this patient include:advanced age, prolonged hospitalization, hypoxia, infection,medication effect -Delirium protocol -Dose of PRN seroquel decreased to avoid sedation. -Paranoia is likely a function of his delirium. - Continue evidence-based nonpharmacologic interventions for prevention and treatment of delirium: - redirect/reorient/reassure frequently - avoid restraints and instead utilize sitter as needed for safety - early mobilization as medically appropriate, OOB for meals as able - have patient use glasses and hearing aides - use familiar objects (family photos and items from home) - sleep hygiene, limit nighttime care to promote sleep/wake cycle - hydrate and encourage PO intake when medically appropriate - minimize/camouflage lines and tethers as able - minimize narcotics as long as pain is adequately controlled - avoid benzos and anticholinergic medications -Avoid antipsychotics unless patient is a danger to themselves or others. -Encourage PO intake, time up in chair, family visits, supervised ambulation, and sleep hygiene -If agitated, assess for and consider treating for pain Paranoia -Likely secondary to delirium. -It will likely improve as his delirium clears. -Can trial a low dose of scheduled seroquel at night if it doesn't improve. Depression -Placed on sertraline at last visit. -Will increase dose from 50 to 75 mg daily. Debility -Plan to return to IP rehab at discharge. Subjective: HPI 78 y.o. year-old male presented from inpatient rehab for shortness of breath. Mr. Mckeon is in the hospital on 01/23/2024 with shortness of breath and increased oxygen requirements. Admitted for acute hypoxic respiratory failure with shortness of breath. On hemodialysis at baseline. Started on levofloxacin on admission. He was admitted from [facility]. Expressed frustrationto the ED with regard to his prolonged hospital course and health condition currently. On admissionhis BNP was 18,500. White blood cell count was within normal limits. Viral tests for RSV, COVID, and flu were negative. CT chest showed no evidence of pulmonary embolism. Findings were concerning forpneumonia. Nursing reported on 01/24/2024 that he was having increased confusion and paranoia. He removed telemetry and refused to let the staff reapply. He also said that he wanted to leave AMA. . 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 Evaluated by pulmonology who agreed that was reasonable to treat for pneumonia. Noted to have bilateral pleural effsions.Right-sided thoracentesis also recommended. Started on steroids as well. Therapy recommending IP rehab at discharge. Cardiothoracic surgery consulted to evaluate wound dehiscence. Wound care team consulted. 400 mL removed on thoracentesis. Plan for discharge to [place] rehab. Of note, he was seen inpatient in December by psychiatry due to anhedonia and depression. He was switched from escitalopram to sertraline. Collateral history obtained from NA. Mr. John endorses difficulty sleeping and shortness of breath. Expressed frustration around current health condition. Became emotional when discussing his 's health and recounting the initialevent that required him to go to the hospital. Reports that his quoc is a comfort to him but he feels that its being stretched at time. Active in his restoration at baseline. Used to work with the [employer]. States that he is hungry but the food in front of him is untouched. States that he is having trouble swallowing and speaking loudly. Had a moment of confusion where he continued to look around the room as if trying to find something. I asked him what I was looking for several times but he would mumble a reply that made no sense. He then asked me do you have it?. When I asked whatit was, he told me my stats. Says that his and [id number] have visited him in the hospital. Feels that he has good support. Allergies Allergen Reactions Lisinopril Wheezing Penicillins Anaphylaxis Sulfa Antibiotics Anaphylaxis Levofloxacin Nausea Only Medications reviewed in hospital records. No past medical history on file. No past surgical history on file. Social History Tobacco Use Smoking status: Never Smokeless tobacco: Never Substance Use Topics Alcohol use: Not on file Present at visit: Patient Marital status: Children: two Living arrangement: Lives with spouse Household safety problems: unknown Driving safety concerns: unknown Elder abuse: Community resources: .Unknown Healthcare Power of [employer]: unknown Living Will: unknown Code Status: Prior Family History No family history on file. No family status information on file. Review of Systems HENT: Difficulty swallowing Cardiovascular: Positive for chest pain (chest wall). Respiratory: Positive for shortness of breath. Musculoskeletal: Positive for back pain. Psychiatric/Behavioral: Sleep disturbance. Functional Status Prior to Admission (I: Independent, A: Assisted, D: Dependent) ADLs I A D Notes Bathing [] [] [] Dressing [] [] [] Toileting [] [] [] Transfers [] [] [] Feeding [] [] [] Ambulation [] [] [] Assistive devices: walker IADLs I A D Telephone [] [] [] Transportation [] [] [] Shopping [] [] [] Meal prep [] [] [] Housework [] [] [] Medications [] [] [] Finances [] [] [] Objective: BP 108/51 Pulse 84 Temp 36.6 C (97.9 F) (Temporal) Resp 18 Ht 5' 10 (1.778 m) Wt 137 lb 9.6 oz (62.4 kg) SpO2 98% BMI 19.74 kg/m Physical Exam Skin: General: Skin is warm and dry. Neurological: Mental Status: He is alert and oriented to person, place, and time. He is confused. Psychiatric: Attention and Perception: Attention normal. Mood and Affect: Mood is depressed. Affect is tearful. Behavior: Behavior is cooperative. Cognition and Memory: Memory is impaired. Comments: Soft speech 3 item recall/short term memory: Not attempted. He is not at his cognitive baseline. Clock Drawing Test: Not attempted. He is not at his cognitive baseline. Labs and Imaging: Lab Results Component Value Date WBC 13.0 (H) 01/25/2024 HGB 7.0 (L) 01/25/2024 HCT 23.1 (L) 01/25/2024 MCV 93.5 01/25/2024 PLT 227 01/25/2024 Lab Results Component Value Date NA 132 (L) 01/25/2024 K 5.2 (H) 01/25/2024 CL 98 01/25/2024 CO2 26 01/25/2024 BUN 43 (H) 01/25/2024 CREATININE 6.04 (H) 01/25/2024 GLUCOSE 300 (H) 01/25/2024 CALCIUM 8.5 01/25/2024 PROT 6.0 (L) 01/25/2024 BILITOT 0.3 01/25/2024 ALKPHOS 71 01/25/2024 AST 69 (H) 01/25/2024 ALT 95 (H) 01/25/2024 Lab Results Component Value Date VITD25 16 (L) 11/16/2023 TSH 1.786 11/15/2023 UA: No results found for: APPEARANCE, COLORU, LABSPEC, LABPH, URINE, GLUCOSEU, UROBILINOGEN, BILIRUBINUR, OCBU Comment: Please note that portions of this report were produced using speech recognition software and may contain errors related to that system including errors in grammar, punctuation, and spelling,as well as words and phrases that may be inappropriate. If there are any questions or concerns please feel free to contact the dictating provider for clarification. [facility] [phone] Consult note* Ursula Hubbard MD - 01/25/2024 1:22 PM EDTAssociated Order(s): IP CONSULT TO GERIATRICS Images from the original note were not included. [facility] Inpatient Consult Service Admission Date: 01/22/2024 Admission Status: INPATIENT Reason for Appointment Chief Complaint Patient presents with Shortness of Breath Pt sent in from [facility] for [facility] effusion. Pt states he has 3/10 left side chest pain . Hx ofCABG in November of this year. . Geriatrics consulted for Confused, paranoid, please evaluate Assessment Principal Problem: Shortness of breath Active Problems: Severe malnutrition (CMS/HCC) (HCC) Plan During this encounter, I spent 60 minutes -Reviewing previous notes, -Reviewing labs, -Counseling/educating the patient/family/caregiver, and -Documenting clinical information in the patients electronic record. Delirium -Risk factors for this patient include:advanced age, prolonged hospitalization, hypoxia, infection,medication effect -Delirium protocol -Dose of PRN seroquel decreased to avoid sedation. -Paranoia is likely a function of his delirium. - Continue evidence-based nonpharmacologic interventions for prevention and treatment of delirium: - redirect/reorient/reassure frequently - avoid restraints and instead utilize sitter as needed for safety - early mobilization as medically appropriate, OOB for meals as able - have patient use glasses and hearing aides - use familiar objects (family photos and items from home) - sleep hygiene, limit nighttime care to promote sleep/wake cycle - hydrate and encourage PO intake when medically appropriate - minimize/camouflage lines and tethers as able - minimize narcotics as long as pain is adequately controlled - avoid benzos and anticholinergic medications -Avoid antipsychotics unless patient is a danger to themselves or others. -Encourage PO intake, time up in chair, family visits, supervised ambulation, and sleep hygiene -If agitated, assess for and consider treating for pain Paranoia -Likely secondary to delirium. -It will likely improve as his delirium clears. -Can trial a low dose of scheduled seroquel at night if it doesn't improve. Depression -Placed on sertraline at last visit. -Will increase dose from 50 to 75 mg daily. Debility -Plan to return to IP rehab at discharge. Subjective: HPI 78 y.o. year-old male presented from inpatient rehab for shortness of breath. Mr. Mckeon is in the hospital on 01/23/2024 with shortness of breath and increased oxygen requirements. Admitted for acute hypoxic respiratory failure with shortness of breath. On hemodialysis at baseline. Started on levofloxacin on admission. He was admitted from [facility]. Expressed frustrationto the ED with regard to his prolonged hospital course and health condition currently. On admissionhis BNP was 18,500. White blood cell count was within normal limits. Viral tests for RSV, COVID, and flu were negative. CT chest showed no evidence of pulmonary embolism. Findings were concerning forpneumonia. Nursing reported on 01/24/2024 that he was having increased confusion and paranoia. He removed telemetry and refused to let the staff reapply. He also said that he wanted to leave AMA. . 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 Evaluated by pulmonology who agreed that was reasonable to treat for pneumonia. Noted to have bilateral pleural effsions.Right-sided thoracentesis also recommended. Started on steroids as well. Therapy recommending IP rehab at discharge. Cardiothoracic surgery consulted to evaluate wound dehiscence. Wound care team consulted. 400 mL removed on thoracentesis. [facility] Of note, he was seen inpatient in December by psychiatry due to anhedonia and depression. He was switched from escitalopram to sertraline. Collateral history obtained from NA. Mr. John endorses difficulty sleeping and shortness of breath. Expressed frustration around current health condition. Became emotional when discussing his 's health and recounting the initialevent that required him to go to the hospital. Reports that his quoc is a comfort to him but he feels that its being stretched at time. Active in his restoration at baseline. Used to work with the [employer]. States that he is hungry but the food in front of him is untouched. States that he is having trouble swallowing and speaking loudly. Had a moment of confusion where he continued to look around the room as if trying to find something. I asked him what I was looking for several times but he would mumble a reply that made no sense. He then asked me do you have it?. When I asked whatit was, he told me my stats. Says that his and [id number] have visited him in the hospital. Feels that he has good support. Allergies Allergen Reactions Lisinopril Wheezing Penicillins Anaphylaxis Sulfa Antibiotics Anaphylaxis Levofloxacin Nausea Only Medications reviewed in hospital records. No past medical history on file. No past surgical history on file. Social History Tobacco Use Smoking status: Never Smokeless tobacco: Never Substance Use Topics Alcohol use: Not on file Present at visit: Patient Marital status: Children: two Living arrangement: Lives with spouse Household safety problems: unknown Driving safety concerns: unknown Elder abuse: Community resources: .Unknown Healthcare Power of [employer]: unknown Living Will: unknown Code Status: Prior Family History No family history on file. No family status information on file. Review of Systems HENT: Difficulty swallowing Cardiovascular: Positive for chest pain (chest wall). Respiratory: Positive for shortness of breath. Musculoskeletal: Positive for back pain. Psychiatric/Behavioral: Sleep disturbance. Functional Status Prior to Admission (I: Independent, A: Assisted, D: Dependent) ADLs I A D Notes Bathing [] [] [] Dressing [] [] [] Toileting [] [] [] Transfers [] [] [] Feeding [] [] [] Ambulation [] [] [] Assistive devices: walker IADLs I A D Telephone [] [] [] Transportation [] [] [] Shopping [] [] [] Meal prep [] [] [] Housework [] [] [] Medications [] [] [] Finances [] [] [] Objective: BP 108/51 Pulse 84 Temp 36.6 C (97.9 F) (Temporal) Resp 18 Ht 5' 10 (1.778 m) Wt 137 lb 9.6 oz (62.4 kg) SpO2 98% BMI 19.74 kg/m Physical Exam Skin: General: Skin is warm and dry. Neurological: Mental Status: He is alert and oriented to person, place, and time. He is confused. Psychiatric: Attention and Perception: Attention normal. Mood and Affect: Mood is depressed. Affect is tearful. Behavior: Behavior is cooperative. Cognition and Memory: Memory is impaired. Comments: Soft speech 3 item recall/short term memory: Not attempted. He is not at his cognitive baseline. Clock Drawing Test: Not attempted. He is not at his cognitive baseline. Labs and Imaging: Lab Results Component Value Date WBC 13.0 (H) 01/25/2024 HGB 7.0 (L) 01/25/2024 HCT 23.1 (L) 01/25/2024 MCV 93.5 01/25/2024 PLT 227 01/25/2024 Lab Results Component Value Date NA 132 (L) 01/25/2024 K 5.2 (H) 01/25/2024 CL 98 01/25/2024 CO2 26 01/25/2024 BUN 43 (H) 01/25/2024 CREATININE 6.04 (H) 01/25/2024 GLUCOSE 300 (H) 01/25/2024 CALCIUM 8.5 01/25/2024 PROT 6.0 (L) 01/25/2024 BILITOT 0.3 01/25/2024 ALKPHOS 71 01/25/2024 AST 69 (H) 01/25/2024 ALT 95 (H) 01/25/2024 Lab Results Component Value Date VITD25 16 (L) 11/16/2023 TSH 1.786 11/15/2023 UA: No results found for: APPEARANCE, COLORU, LABSPEC, LABPH, URINE, GLUCOSEU, UROBILINOGEN, BILIRUBINUR, OCBU Comment: Please note that portions of this report were produced using speech recognition software and may contain errors related to that system including errors in grammar, punctuation, and spelling,as well as words and phrases that may be inappropriate. If there are any questions or concerns please feel free to contact the dictating provider for clarification. * Karan Hicks MD - 01/24/2024 3:35 PM EDTAssociated Order(s): Inpatient consult to Pulmonology PULMONOLOGY CONSULT NOTE 01/24/2024 3:37 PM Reason for consult: acute respiratory failure secondary to pneumonia, requiring 6-8L oxygen, pleaseevaluate Inpatient consult to Pulmonology Consult performed by: Karan Hicks MD Consult ordered by: Kanwal Simms MD Subjective: Admit Date: 01/22/2024 PCP: OLENA GABRIEL HPI: Jose John is a 78 year old man with a history of NSTEMI/CAD s/p recent 4v CABG (11/21/23), carotid stenosis, recent ZOFIA resulting in ESRD on iHD, moderate MR, post op Afib and DVT on Eliquis, HFrEF/ischemic cardiomyopathy (35%), DM2, and recent serratia pneumonia who was admitted 01/22 with hypoxia and bilateral pleural effusions from acute rehab. Of note he had an extensive hospitalization 11/12 - 12/24 after CABG done for NSTEMI, course was complicated by ZOFIA requiring HD (currently on HD MWF), HFrEF (LVEF 35%), aspiration pneumonia with Serratia requiring bronchoscopy x2 for mucous plugging, and recurrent pleural effusions due to volume overload with thoracentesis x3 (12/04, 12/11/ 12/21). Had barium swallow showing laryngeal and vocal cord penetration without aspiration 12/19. He was transferred to [facility] 12/24-01/10 and then to Rehab hospital. At rehab hospital per notes a thoracentesis was being considered after a CXR 01/19 showed bilateral pleural effusions. He presents with hypoxia from acute rehab. CTA chest done in ED showed bilateral pleural effusions similar on the right but significantly increased on the left and concerning for loculated / complex effusion along with evidence of pneumonia. Started on Ceftriaxone. Labs consistent with ESRD, also BNP elevated to 18,500. He reports ongoing dyspnea, cough, malaise, and fatigue. He complains of sternal pain when he coughs along with some left sided chest discomfort as well. He denies any recent fevers. Cough has been dry. Denies night sweats. 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 Has had thoracentesis x3 past hospital stay 12/04, 12/11 (RIGHT) and 12/21 (left). The right was transudative, likely volume related, and did have Staph epi grow in the broth only, which suspect was skin contaminant. Thoracentesis done today with 1400 ml clear dark mara fluid. No significant loculations are seen on procedure images. Full studies pending LDH, protein, glucose, cell count with diff, culture, cytology Plan for drainage of the right pleural effusion tomorrow which both appears stable Volume removal with HD as able Agree with Ceftriaxone for now. If clinically worsens would broaden coverage. Obtain sputum culture and pneumonia PCR Continue scheduled Duonebs Continue Solu medrol 40 mg TID May benefit from empiric LAMA/LABA homegoing based on his previous PFTs suggestive of severe obstruction Nephrology following for HD Pulmonology will follow Karan Hicks MD Fellow, Pulmonary and Critical Care Medicine Past Medical History: No past medical history on file. Past Surgical History: No past surgical history on file. Allergies: Allergies Allergen Reactions Lisinopril Wheezing Penicillins Anaphylaxis Sulfa Antibiotics Anaphylaxis Levofloxacin Nausea Only Social History: Social History Substance and Sexual Activity Alcohol Use None Social History Substance and Sexual Activity Drug Use Not on file Social History Tobacco Use Smoking Status Never Smokeless Tobacco Never Family History: No family history on file. Review of Systems Constitutional: Negative for fever and unexpected weight change. HENT: Negative for congestion, rhinorrhea and sore throat. Eyes: Negative for visual disturbance. Respiratory: Positive for cough. Negative for shortness of breath and wheezing. Cardiovascular: Positive for chest pain (sternotomy and left chest). Negative for palpitations and leg swelling. Gastrointestinal: Negative for abdominal pain and nausea. Musculoskeletal: Negative for arthralgias and myalgias. Skin: Negative for rash. Neurological: Negative for dizziness and light-headedness. Psychiatric/Behavioral: Negative for sleep disturbance. Medications: Scheduled Meds:amiodarone, 200 mg, Oral, Daily aspirin, 81 mg, Oral, Daily atorvastatin, 80 mg, Oral, Daily cefTRIAXone, 1,000 mg, IntraVENous, q24h gabapentin, 100 mg, Oral, BID heparin, 5,000 Units, SubCUTAneous, 3 times per day insulin glargine, 7 Units, SubCUTAneous, Nightly ipratropium-albuterol, 3 mL, Nebulization, TID methylPREDNISolone sod suc (PF), 40 mg, IntraVENous, TID pantoprazole, 40 mg, Oral, qAM AC sertraline, 50 mg, Oral, Daily tamsulosin, 0.4 mg, Oral, Daily Continuous Infusions: Data: [facility] within last 24 hours- BMP: Recent Labs 01/22/24191701/24/24 0516 NA 133* 134* K 4.7 5.1 CL 96* 98 CO2 28 31* BUN 29* 24* CREATININE 5.26* 4.11* CALCIUM 8.7 8.7 LFTs: Recent Labs 01/24/24 0516 AST 60* ALT 76* PROT 6.6 ALBUMIN 3.4* BILITOT 0.4 ALKPHOS 79 Glucose: Recent Labs 01/22/24191701/23/24 0712 01/23/24 1256 01/23/24201201/24/24 0516 01/24/24 0823 01/24/24 1128 GLUCOSE 85 -- -- -- 209* -- -- POCGLU -- 158* 167* 113* -- 228* 221* Procal: Recent Labs 01/22/241917 PROCAL 0.38* CBC: Recent Labs 01/22/24191701/24/24 0516 WBC 8.4 6.9 HGB 8.3* 7.7* HCT 27.2* 25.3* PLT 265 229 MCV 92.5 92.7 RDW 16.4* 16.3* ABGs: No results for input(s): PHART, GET8HUD, PO2ART, WAS3LIX, SO2ART, G4FUIQAE in thelast 72 hours. Lactic Acid: No results for input(s): LACTATE in the last 72 hours. INR: No results for input(s): INR in the last 72 hours. Cardiac Injury Profile: Recent Labs 01/22/24 1918 01/22/24 2353 01/23/24 0310 TROPONINI 0.023 0.023 0.024 Labs in Last 3 months: Lab Results Component Value Date TSH 1.786 11/15/2023 VITD25 16 (L) 11/16/2023 INR 1.2 (H) 12/22/2023 Microbiology- Urine Cx: No results found for: URINECX Blood Cx: Lab Results Component Value Date BLOODCX No growth at 24 hours 01/23/2024 BLOODCX No growth at 24 hours 01/23/2024 Sputum Cx: Lab Results Component Value Date RESPCULT Rare respiratory carol present. 12/02/2023 RESPCULT Few Tiffanie albicans (A) 12/02/2023 Gram Stain: Lab Results Component Value Date LABGRAM 12/12/2023 Few Polymorphonuclear leukocytes per low power field LABGRAM No organisms seen 12/12/2023 PNA PCR: Lab Results Component Value Date HUMANMETAPNE Not Detected 11/25/2023 COVID19: No results found for: COVID19 Legionella Ag: Lab Results Component Value Date LEGIONELLAPN Not Detected 11/25/2023 Strep Ag: No results for input(s): STREPPNEUMO in the last 72 hours. Imaging- CXR portable: Results for orders placed during the hospital encounter of 01/22/24 XR chest 1 view Narrative Patient Name: JOSE JOHN : 1945 Exam Date/Time: 01/22/2024 19:53 Procedure: XR CHEST 1 VIEW Ordering Provider: GLEASON II, STERLING Reason For Exam: Shortness of breath CHEST PORTABLE CLINICAL INDICATION: Shortness of breath TECHNIQUE: Portable chest x-ray(s). COMPARISON: December,. FINDINGS: Left IJ, dual-lumen central venous catheter again noted. Postsurgical changes again project over the heart and mild cardiomegaly, stable. Lungs show mild vascular congestion centrally, mildly increased. Patchy and partially confluent opacities again noted over the right lower lung about the same. Similar opacities now project over the lower half of left hemithorax, new from comparison. Small right and moderate left pleural effusions,increased on the left. No apparent pneumothorax. Degenerative change again noted in the thoracic spine. Impression 1. Increasing vascular congestion, left lower lung atelectasis versus infiltrates and left pleural effusion. 2. Otherwise, stable. Report Dictated on Electronically Signed By: Miguel A Victoria MD Electronically Signed Date/Time: 01/22/2024 7:56 PM EDT CXR (2V): No results found for this or any previous visit. CT Chest: Results for orders placed during the hospital encounter of 11/15/23 CT chest wo IV contrast Narrative Patient Name: JOSE JOHN : 1945 Exam Date/Time: 11/17/2023 10:44 Procedure: CT CHEST WO IV CONTRAST Ordering Provider: MOORE GRACE Reason For Exam: Pre cabg workup CT chest without contrast HISTORY: Preoperative Protocol: 3 mm axial images without intravenous contrast Dose reduction was employed with automated exposure control. Small to moderate right and small left pleural effusions. The lungs and pleural spaces are clear. No lymphadenopathy. Adrenal glands are normal. Impression Small to moderate right and small left pleural effusions. Report Dictated on Electronically Signed By: Jose Mejia MD Electronically Signed Date/Time: 11/17/2023 3:28 PM EDT CTA Chest: Results for orders placed during the hospital encounter of 01/22/24 CT chest angiogram w and/or wo IV contrast Narrative Patient Name: JOSE JOHN : 1945 Exam Date/Time: 01/23/2024 00:36 Procedure: CT CHEST ANGIOGRAM W AND/OR WO IV CONTRAST Ordering Provider: WILD KATHRYN Reason For Exam: Concern for PE History: Chest discomfort. Comparison: 11/23/2023 Findings: Dose reduction was employed with automated exposure control. Enhanced imaging of the chest was performed with 1 mm slices from neck to upper abdomen. 75 cc isovue 370 utilized. Additional images: 3-D imaging created and reviewed on independent platform for better detection ofpathology. Airway:Grossly patent. Mediastinum and great vessels: Cardiac enlargement. Atherosclerotic calcifications. No large central PE visualized. .No convincing adenopathy. Previously seen upper/superior mediastinal paratracheal soft tissue or fluid focus not clearly visualized currently. Limited by beam hardening artifact. Respiratory motion limits evaluation of more peripheral vascular structures and parenchyma. LUNGS:Abnormal. Volume loss related to effusions which may be loculated. Infiltrate densities especially left upper lobe. Compressive atelectasis lower lobes bilaterally. Worsening volume loss especially on the left compared to prior, mostly due to increasing effusion. Spine: No convincing acute or occult process.. Upper abdomen: No convincing evidence of acute process.. Cholecystectomy. Impression Impression:No large central PE. Effusions, infiltrates, atelectasis. Findings concerning for pneumonia. Worsening volume loss especially on the left compared to prior. Follow-up recommended.. Report Dictated on Electronically Signed By: Jorge Purdy MD Electronically Signed Date/Time: 01/23/2024 12:50 AM EDT Other Studies: Reviewed and as per electronic record. CxR/CT images personally reviewed by me when available; salient findings summarized in A/P. Objective: Vitals: BP 118/63 (BP Location: Right arm, Patient Position: Lying) Pulse 89 Temp 36.6 C (97.8 F) (Temporal) Resp 18 Ht 1.778 m (5' 10) Wt 62.4 kg (137 lb 9.6 oz) SpO2 97% BMI 19.74 kg/m Physical Exam Constitutional: General: He is not in acute distress. Appearance: Normal appearance. He is ill-appearing. HENT: Head: Normocephalic and atraumatic. Right Ear: External ear normal. Left Ear: External ear normal. Nose: Nose normal. Mouth/Throat: Mouth: Mucous membranes are moist. Pharynx: Oropharynx is clear. Eyes: Conjunctiva/sclera: Conjunctivae normal. Cardiovascular: Rate and Rhythm: Normal rate and regular rhythm. Pulses: Normal pulses. Heart sounds: Normal heart sounds. No murmur heard. No gallop. Pulmonary: Effort: Pulmonary effort is normal. No respiratory distress. Breath sounds: No wheezing or rales. Comments: Diminished left lower lobe. On 8L NC Abdominal: General: There is no distension. Musculoskeletal: Right lower leg: No edema. Left lower leg: No edema. Skin: Coloration: Skin is not jaundiced or pale. Neurological: General: No focal deficit present. Mental Status: He is alert and oriented to person, place, and time. Psychiatric: Mood and Affect: Mood normal. Behavior: Behavior normal. Associated attestation - Arun Lancaster MD - 01/24/2024 4:25 PM EDT I have personally performed a [id number] diagnostic evaluation on this patient on date of kobwxvb53/20/24. History, labs, imaging studies, and electronic medical record have been reviewed by me. This note documented by the [x]fellow []resident []ALEJANDRO reflects my history, exam, and medical decision making. I have reviewed and agree with the care plan. Changes were made in the orders as necessary. ROS documentation was reviewed and negative unless otherwise stated in HPI. Additional pertinent interval history, ROS, and physical exam findings: 78-year-old male with a history of chronic hypoxemic respiratory failure on 2 LPM supplemental O2, COPD (spirometry 11/20/23 showed moderate airflow obstruction), CAD s/p recent CABG, ischemic cardiomyopathy, ZOFIA on CKD stage G4 (dialysis-dependent), prior tobacco abuse admitted to [facility] 01/22/24 from [facility] for dyspnea and chest pain. CTA chest 01/23/24 showed bilateral pleural effusions (left > right), bibasilar consolidations and atelectasis concerning for possible pneumonia. Pulmonary consulted for increasing oxygen requirements. He underwent left thoracentesis 01/24/24, removed 1400 mL of fluid. Patient states symptoms overall are improved compared to admission. He is somewhat confused at times but overall pleasant, resting comfortable, hemodynamically stable, no acute distress. Assessment: Acute on chronic hypoxemic respiratory failure Bilateral pleural effusions, left > right Bibasilar atelectasis Bibasilar consolidations concerning for CAP COPD Chronic HFrEF, ischemic cardiomyopathy CAD s/p CABG ZOFIA on CKD stage G4, dialysis-dependent Plan: He had bilateral thoracenteses last admission, right side appeared transudative (Staph epi in brothlikely contaminant), overall consistent with underlying cardiac and renal disease Suspect recurrent hypoxia is largely driven by large bilateral effusions, left greater than right, underwent repeat left-sided thoracentesis 01/24/24 with 1400 mL removed, studies pending Reasonable to treat for pneumonia, recommend 5 days of antibiotics, try to obtain sputum for analysis if able, last admission he had Serratia pneumonia that was sensitive to ceftriaxone Recommend right-sided thoracentesis tomorrow, order placed Low concern for acute COPD exacerbation, reasonable to continue 5 days of steroids Start empiric maximum inhalation therapy with Dulera/Spiriva, consolidate to Trelegy or Breztri on discharge Continue scheduled Duonebs OPEP, IS, PT, OT, out of bed to chair, etc. Wean supplemental O2 for goal SpO2 > 92% given underlying cardiac disease Pulmonary will continue to follow Arun Lancaster MD Pulmonary & Critical Care Medicine [facility] Pager #[phone] * Kaushal Santiago MD - 01/23/2024 1:46 PM EDTAssociated Order(s): IP CONSULT TO NEPHROLOGY [facility] [address] [place] [address] Consult Note Patient's Name: Jose John 1:46 PM 01/23/2024 Reason for Consult: dialysis management History of Present Ilness: Jose John is a 78 y.o. male with PMHX oif T2DM, essential HTN and ZOFIA on CKD4 presented to the hospital with worsening SOB. Patient with recent hospitalization in december 2023 where patient had complicated hospital course including septic shock and worsening ZOFIA with invitation of CRRT and transition to iHD. Patient remains dialysis dependent MWF, denies increased urine production since being initiated on dialysis. Otherwise without any complication and tolerating well. Patient presented this time with acute hypoxic respiratory failure with worsening SOB. He appeared lethargic on exam, awoke to answer some questions. Heotherwise denied chest pain, f/c/n, productive cough. Changes in bowel or urine. No past medical history on file. No past surgical history on file. No family history on file. reports that he has never smoked. He has never used smokeless tobacco. Allergies: Lisinopril, Penicillins, Sulfa antibiotics, and Levofloxacin Medications: Current Facility-Administered Medications on File Prior to Encounter Medication Dose Route Frequency Provider Last Rate Last Admin [DISCONTINUED] GENERIC EXTERNAL MEDICATION Generic External Data Provider [DISCONTINUED] GENERIC EXTERNAL MEDICATION Generic External Data Provider [DISCONTINUED] GENERIC EXTERNAL MEDICATION Generic External Data Provider [DISCONTINUED] GENERIC EXTERNAL MEDICATION Generic External Data Provider [DISCONTINUED] GENERIC EXTERNAL MEDICATION Generic External Data Provider [DISCONTINUED] GENERIC EXTERNAL MEDICATION Generic External Data Provider [DISCONTINUED] GENERIC EXTERNAL MEDICATION Generic External Data Provider [DISCONTINUED] GENERIC EXTERNAL MEDICATION Generic External Data Provider [DISCONTINUED] GENERIC EXTERNAL MEDICATION Generic External Data Provider [DISCONTINUED] GENERIC EXTERNAL MEDICATION Generic External Data Provider [DISCONTINUED] GENERIC EXTERNAL MEDICATION Generic External Data Provider [DISCONTINUED] GENERIC EXTERNAL MEDICATION Generic External Data Provider [DISCONTINUED] GENERIC EXTERNAL MEDICATION Generic External Data Provider [DISCONTINUED] GENERIC EXTERNAL MEDICATION Generic External Data Provider [DISCONTINUED] GENERIC EXTERNAL MEDICATION Generic External Data Provider [DISCONTINUED] GENERIC EXTERNAL MEDICATION Generic External Data Provider [DISCONTINUED] GENERIC EXTERNAL MEDICATION Generic External Data Provider [DISCONTINUED] GENERIC EXTERNAL MEDICATION Generic External Data Provider [DISCONTINUED] GENERIC EXTERNAL MEDICATION Generic External Data Provider [DISCONTINUED] GENERIC EXTERNAL MEDICATION Generic External Data Provider Current Outpatient Medications on File Prior to Encounter Medication Sig Dispense Refill amiodarone (Pacerone) 200 MG tablet Take 1 tablet (200 mg) by mouth daily. 0 aspirin 81 MG chewable tablet Chew 1 tablet (81 mg) daily. 0 atorvastatin (Lipitor) 80 MG tablet Take 1 tablet (80 mg) by mouth daily. 0 gabapentin (Neurontin) 100 MG capsule Take 1 capsule (100 mg) by mouth 2 times daily. 0 insulin glargine (Lantus) 100 UNIT/ML injection Inject 7 Units under the skin Nightly. 0 ipratropium-albuterol (Duo-Neb) 0.5-2.5 mg/3 mL nebulizer solution Take 3 mL by nebulization 3 times daily as needed for wheezing or shortness of breath. 0 omeprazole OTC (PriLOSEC OTC) 20 MG EC tablet Take 20 mg by mouth in the morning and 20 mg in the evening. Take before meals. Do not crush, chew, or split.. sertraline (Zoloft) 50 MG tablet Take 1 tablet (50 mg) by mouth daily. 0 tamsulosin (Flomax) 0.4 MG 24 hr capsule Take 0.4 mg by mouth daily. Review of Systems: ROS as in HPI Physical exam: BP 110/61 Pulse 77 Temp 36.2 C (97.1 F) (Temporal) Resp 18 Ht 1.778 m (5' 10) Wt 62.4 kg(137 lb 9.6 oz) SpO2 (!) 92% BMI 19.74 kg/m General: NAD, alert, lethargic/somnolent Head: Atraumatic on anterior inspection Psych: Unaable to assess Eyes: Lids symmetric Chest: bilateral vesicular breath sounds, no rales Cardiac: S1, S2 Abdomen: Nontender SKIN: dry Extremities: Trace lower extremity edema Labs: Recent Labs 01/22/241917 WBC 8.4 HGB 8.3* HCT 27.2* MCV 92.5 PLT 265 Recent Labs 01/22/241917 NA 133* K 4.7 CL 96* CO2 28 GLUCOSE 85 BUN 29* CREATININE 5.26* CALCIUM 8.7 Ionized Calcium: No components found for: IONCA Magnesium: No results found for: MG Phosphorus: No results found for: PHOS Input / Output: 24 HR: Intake/Output Summary (Last 24 hours) at 01/23/2024 1346 Last data filed at 01/23/2024 0502 Gross per 24 hour Intake 50 ml Output -- Net 50 ml IV Intake: [place]: Imaging: Narrative & Impression Patient Name: JOSE JOHN : 1945 [id number] Exam Date/Time: 01/23/2024 00:36 Procedure: CT CHEST ANGIOGRAM W AND/OR WO IV CONTRAST Ordering Provider: WILD KATHRYN Reason For Exam: Concern for PE History: Chest discomfort. Comparison: 11/23/2023 Findings: Dose reduction was employed with automated exposure control. Enhanced imaging of the chest was performed with 1 mm slices from neck to upper abdomen. 75 cc isovue 370 utilized. Additional images: 3-D imaging created and reviewed on independent platform for better detection ofpathology. Airway:Grossly patent. Mediastinum and great vessels: Cardiac enlargement. Atherosclerotic calcifications. No large central PE visualized. .No convincing adenopathy. Previously seen upper/superior mediastinal paratracheal soft tissue or fluid focus not clearly visualized currently. Limited by beam hardening artifact. Respiratory motion limits evaluation of more peripheral vascular structures and parenchyma. LUNGS:Abnormal. Volume loss related to effusions which may be loculated. Infiltrate densities especially left upper lobe. Compressive atelectasis lower lobes bilaterally. Worsening volume loss especially on the left compared to prior, mostly due to increasing effusion. Spine: No convincing acute or occult process.. Upper abdomen: No convincing evidence of acute process.. Cholecystectomy. IMPRESSION: Impression:No large central PE. Effusions, infiltrates, atelectasis. Findings concerning for pneumonia. Worsening volume loss especially on the left compared to prior. Follow-up recommended.. Report Dictated on Electronically Signed By: Jorge Purdy MD Electronically Signed Date/Time: 01/23/2024 12:50 AM EDT Assessment: Jose John is a 78 y.o. male with PMHX oif T2DM, essential HTN and ZOFIA on CKD4 presented to the hospital with worsening SOB. We are consulted for ongoing dialysis management. ZOFIA on advanced CKD initiated on iHD 12/2023 progressing towards ESRD Anemia of CKD CKD MBD Acute respiratory failure PLAN: - Will continue with iHD today continue MWF while here - Iron studies. Transfuse for Hg < 7 - Daily BMP, phos, Ca, albumin 2x weekly - no indication for phos binders, goal 3.5-5.5 - accurate I&O - monitor for renal recovery - dose meds for eGFR < 15 - Daily nephrocaps while on [employer] Kaushal Santiago MD documented in this [facility]06-21-2024 Nurse Note* Leana Collins RN - 01/25/2024 10:14 AM EDT Patient arrived to Ultrasound department for thoracentesis. History, medications and allergies reviewed. Yesenia Nolen PA-C in to discuss procedure and informed consent obtained. Patient assisted to sitting on the edge of the bed. Right upper back scanned, marked and prepped in sterile fashion. 400mL of clear gold fluid removed. Che ridleye dressing applied. Patient tolerated procedure well. Patient transported to [address] [place] [address] [id number] Plan of care note* Care Plan - Doe Andujar RN - 01/25/2024 9:58 AM EDT Problem: Knowledge Deficit Goal: Patient/family/caregiver demonstrates understanding of disease process, treatment plan, medications, and discharge instructions Outcome: Progressing Problem: Potential for Compromised Skin Integrity Goal: Skin Integrity is Maintained or Improved Outcome: Progressing [facility] [id number] Note* Care Coordination - Rosalba Hills RN - 01/25/2024 8:43 AM EDT Images from the original note were not included. Care Management Progress Note Continues IV ATB course. Thoracentesis pending. Plan is [facility] when medically stable with in house dialysis. No insurance auth needed. Discharge Milestones and Delays Expected date/time: 01/26/[address] discharge order Complete med reconciliation Case mgmt discharge readiness Clinical Stability Diagnostic Workup Psychiatric Mental Health Nurse Recommendations Test Results PT discharge readiness OT discharge readiness Patient Education Complete Expected Discharge History Expected Date/Time Set By Reviewed At 01/26/2024 Rosalba Hills RN 01/25/2024 8:42 AM 01/26/2024 Rosalba Hills RN 01/24/2024 9:19 AM 01/26/2024 Jania Ruano MD 01/23/2024 1:06 PM 01/25/2024 Jaleel Duvall MD 01/23/2024 2:19 AM Length of Stay (Days): 2 GMLOS: 4.4 [facility] [id number] Note* Care Coordination - Rosalba Hills RN - 01/25/2024 8:43 AM EDT Images from the original note were not included. Care Management Progress Note Continues IV ATB course. Thoracentesis pending. Plan is [facility] when medically stable with in house dialysis. No insurance auth needed. Discharge Milestones and Delays Expected date/time: 01/26/[address] discharge order Complete med reconciliation Case mgmt discharge readiness Clinical Stability Diagnostic Workup Psychiatric Mental Health Nurse Recommendations Test Results PT discharge readiness OT discharge readiness Patient Education Complete Expected Discharge History Expected Date/Time Set By Reviewed At 01/26/2024 Rosalba Hills RN 01/25/2024 8:42 AM 01/26/2024 Rosalba Hills RN 01/24/2024 9:19 AM 01/26/2024 Jania Ruano MD 01/23/2024 1:06 PM 01/25/2024 Jaleel Duvall MD 01/23/2024 2:19 AM Length of Stay (Days): 2 GMLOS: 4.4 [facility] [id number] Plan of care note* Care Plan - Candy Yepez RN - 01/24/2024 4:39 PM EDT Problem: Potential for Compromised Skin Integrity Goal: Skin Integrity is Maintained or Improved Outcome: Progressing Goal: Nutritional status is improving Outcome: Progressing Problem: Urinary Incontinence Goal: Perineal skin integrity is maintained or improved Outcome: Progressing [facility] [id number] Consult note* Karan Hicks MD - 01/24/2024 3:35 PM EDTAssociated Order(s): Inpatient consult to Pulmonology PULMONOLOGY CONSULT NOTE 01/24/2024 3:37 PM Reason for consult: acute respiratory failure secondary to pneumonia, requiring 6-8L oxygen, pleaseevaluate Inpatient consult to Pulmonology Consult performed by: Karan Hicks MD Consult ordered by: Kanwal Simms MD Subjective: Admit Date: 01/22/2024 PCP: OLENA GABRIEL HPI: Jose John is a 78 year old man with a history of NSTEMI/CAD s/p recent 4v CABG (11/21/23), carotid stenosis, recent ZOFIA resulting in ESRD on iHD, moderate MR, post op Afib and DVT on Eliquis, HFrEF/ischemic cardiomyopathy (35%), DM2, and recent serratia pneumonia who was admitted 01/22 with hypoxia and bilateral pleural effusions from acute rehab. Of note he had an extensive hospitalization 11/12 - 12/24 after CABG done for NSTEMI, course was complicated by ZOFIA requiring HD (currently on HD MWF), HFrEF (LVEF 35%), aspiration pneumonia with Serratia requiring bronchoscopy x2 for mucous plugging, and recurrent pleural effusions due to volume overload with thoracentesis x3 (12/04, 12/11/ 12/21). Had barium swallow showing laryngeal and vocal cord penetration without aspiration 12/19. He was transferred to [facility] 12/24-01/10 and then to Rehab hospital. At rehab hospital per notes a thoracentesis was being considered after a CXR 01/19 showed bilateral pleural effusions. He presents with hypoxia from acute rehab. CTA chest done in ED showed bilateral pleural effusions similar on the right but significantly increased on the left and concerning for loculated / complex effusion along with evidence of pneumonia. Started on Ceftriaxone. Labs consistent with ESRD, also BNP elevated to 18,500. He reports ongoing dyspnea, cough, malaise, and fatigue. He complains of sternal pain when he coughs along with some left sided chest discomfort as well. He denies any recent fevers. Cough has been dry. Denies night sweats. 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 Has had thoracentesis x3 past hospital stay 12/04, 12/11 (RIGHT) and 12/21 (left). The right was transudative, likely volume related, and did have Staph epi grow in the broth only, which suspect was skin contaminant. Thoracentesis done today with 1400 ml clear dark mara fluid. No significant loculations are seen on procedure images. Full studies pending LDH, protein, glucose, cell count with diff, culture, cytology Plan for drainage of the right pleural effusion tomorrow which both appears stable Volume removal with HD as able Agree with Ceftriaxone for now. If clinically worsens would broaden coverage. Obtain sputum culture and pneumonia PCR Continue scheduled Duonebs Continue Solu medrol 40 mg TID May benefit from empiric LAMA/LABA homegoing based on his previous PFTs suggestive of severe obstruction Nephrology following for HD Pulmonology will follow Karan Hicks MD Fellow, Pulmonary and Critical Care Medicine Past Medical History: No past medical history on file. Past Surgical History: No past surgical history on file. Allergies: Allergies Allergen Reactions Lisinopril Wheezing Penicillins Anaphylaxis Sulfa Antibiotics Anaphylaxis Levofloxacin Nausea Only Social History: Social History Substance and Sexual Activity Alcohol Use None Social History Substance and Sexual Activity Drug Use Not on file Social History Tobacco Use Smoking Status Never Smokeless Tobacco Never Family History: No family history on file. Review of Systems Constitutional: Negative for fever and unexpected weight change. HENT: Negative for congestion, rhinorrhea and sore throat. Eyes: Negative for visual disturbance. Respiratory: Positive for cough. Negative for shortness of breath and wheezing. Cardiovascular: Positive for chest pain (sternotomy and left chest). Negative for palpitations and leg swelling. Gastrointestinal: Negative for abdominal pain and nausea. Musculoskeletal: Negative for arthralgias and myalgias. Skin: Negative for rash. Neurological: Negative for dizziness and light-headedness. Psychiatric/Behavioral: Negative for sleep disturbance. Medications: Scheduled Meds:amiodarone, 200 mg, Oral, Daily aspirin, 81 mg, Oral, Daily atorvastatin, 80 mg, Oral, Daily cefTRIAXone, 1,000 mg, IntraVENous, q24h gabapentin, 100 mg, Oral, BID heparin, 5,000 Units, SubCUTAneous, 3 times per day insulin glargine, 7 Units, SubCUTAneous, Nightly ipratropium-albuterol, 3 mL, Nebulization, TID methylPREDNISolone sod suc (PF), 40 mg, IntraVENous, TID pantoprazole, 40 mg, Oral, qAM AC sertraline, 50 mg, Oral, Daily tamsulosin, 0.4 mg, Oral, Daily Continuous Infusions: Data: [facility] within last 24 hours- BMP: Recent Labs 01/22/24191701/24/24 0516 NA 133* 134* K 4.7 5.1 CL 96* 98 CO2 28 31* BUN 29* 24* CREATININE 5.26* 4.11* CALCIUM 8.7 8.7 LFTs: Recent Labs 01/24/24 0516 AST 60* ALT 76* PROT 6.6 ALBUMIN 3.4* BILITOT 0.4 ALKPHOS 79 Glucose: Recent Labs 01/22/24191701/23/24 0712 01/23/24 1256 01/23/24201201/24/24 0516 01/24/24 0823 01/24/24 1128 GLUCOSE 85 -- -- -- 209* -- -- POCGLU -- 158* 167* 113* -- 228* 221* Procal: Recent Labs 01/22/241917 PROCAL 0.38* CBC: Recent Labs 01/22/24191701/24/24 0516 WBC 8.4 6.9 HGB 8.3* 7.7* HCT 27.2* 25.3* PLT 265 229 MCV 92.5 92.7 RDW 16.4* 16.3* ABGs: No results for input(s): PHART, HSV8BLS, PO2ART, KVM8PRE, SO2ART, M1KKIUKN in thelast 72 hours. Lactic Acid: No results for input(s): LACTATE in the last 72 hours. INR: No results for input(s): INR in the last 72 hours. Cardiac Injury Profile: Recent Labs 01/22/24191701/22/24 2353 01/23/24 0310 TROPONINI 0.023 0.023 0.024 Labs in Last 3 months: Lab Results Component Value Date TSH 1.786 11/15/2023 VITD25 16 (L) 11/16/2023 INR 1.2 (H) 12/22/2023 Microbiology- Urine Cx: No results found for: URINECX Blood Cx: Lab Results Component Value Date BLOODCX No growth at 24 hours 01/23/2024 BLOODCX No growth at 24 hours 01/23/2024 Sputum Cx: Lab Results Component Value Date RESPCULT Rare respiratory carol present. 12/02/2023 RESPCULT Few Tiffanie albicans (A) 12/02/2023 Gram Stain: Lab Results Component Value Date LABGRAM 12/12/2023 Few Polymorphonuclear leukocytes per low power field LABGRAM No organisms seen 12/12/2023 PNA PCR: Lab Results Component Value Date HUMANMETAPNE Not Detected 11/25/2023 COVID19: No results found for: COVID19 Legionella Ag: Lab Results Component Value Date LEGIONELLAPN Not Detected 11/25/2023 Strep Ag: No results for input(s): STREPPNEUMO in the last 72 hours. Imaging- CXR portable: Results for orders placed during the hospital encounter of 01/22/24 XR chest 1 view Narrative Patient Name: JOSE JOHN : 1945 Exam Date/Time: 01/22/2024 19:53 Procedure: XR CHEST 1 VIEW Ordering Provider: GLEASON II, STERLING Reason For Exam: Shortness of breath CHEST PORTABLE CLINICAL INDICATION: Shortness of breath TECHNIQUE: Portable chest x-ray(s). COMPARISON: December,. FINDINGS: Left IJ, dual-lumen central venous catheter again noted. Postsurgical changes again project over the heart and mild cardiomegaly, stable. Lungs show mild vascular congestion centrally, mildly increased. Patchy and partially confluent opacities again noted over the right lower lung about the same. Similar opacities now project over the lower half of left hemithorax, new from comparison. Small right and moderate left pleural effusions,increased on the left. No apparent pneumothorax. Degenerative change again noted in the thoracic spine. Impression 1. Increasing vascular congestion, left lower lung atelectasis versus infiltrates and left pleural effusion. 2. Otherwise, stable. Report Dictated on Electronically Signed By: Miguel A Victoria MD Electronically Signed Date/Time: 01/22/2024 7:56 PM EDT CXR (2V): No results found for this or any previous visit. CT Chest: Results for orders placed during the hospital encounter of 11/15/23 CT chest wo IV contrast Narrative Patient Name: JOSE JOHN : 1945 Exam Date/Time: 11/17/2023 10:44 Procedure: CT CHEST WO IV CONTRAST Ordering Provider: MOORE GRACE Reason For Exam: Pre cabg workup CT chest without contrast HISTORY: Preoperative Protocol: 3 mm axial images without intravenous contrast Dose reduction was employed with automated exposure control. Small to moderate right and small left pleural effusions. The lungs and pleural spaces are clear. No lymphadenopathy. Adrenal glands are normal. Impression Small to moderate right and small left pleural effusions. Report Dictated on Electronically Signed By: Jose Mejia MD Electronically Signed Date/Time: 11/17/2023 3:28 PM EDT CTA Chest: Results for orders placed during the hospital encounter of 01/22/24 CT chest angiogram w and/or wo IV contrast Narrative Patient Name: JOSE JOHN : 1945 Exam Date/Time: 01/23/2024 00:36 Procedure: CT CHEST ANGIOGRAM W AND/OR WO IV CONTRAST Ordering Provider: WILD KATHRYN Reason For Exam: Concern for PE History: Chest discomfort. Comparison: 11/23/2023 Findings: Dose reduction was employed with automated exposure control. Enhanced imaging of the chest was performed with 1 mm slices from neck to upper abdomen. 75 cc isovue 370 utilized. Additional images: 3-D imaging created and reviewed on independent platform for better detection ofpathology. Airway:Grossly patent. Mediastinum and great vessels: Cardiac enlargement. Atherosclerotic calcifications. No large central PE visualized. .No convincing adenopathy. Previously seen upper/superior mediastinal paratracheal soft tissue or fluid focus not clearly visualized currently. Limited by beam hardening artifact. Respiratory motion limits evaluation of more peripheral vascular structures and parenchyma. LUNGS:Abnormal. Volume loss related to effusions which may be loculated. Infiltrate densities especially left upper lobe. Compressive atelectasis lower lobes bilaterally. Worsening volume loss especially on the left compared to prior, mostly due to increasing effusion. Spine: No convincing acute or occult process.. Upper abdomen: No convincing evidence of acute process.. Cholecystectomy. Impression Impression:No large central PE. Effusions, infiltrates, atelectasis. Findings concerning for pneumonia. Worsening volume loss especially on the left compared to prior. Follow-up recommended.. Report Dictated on Electronically Signed By: Jorge Purdy MD Electronically Signed Date/Time: 01/23/2024 12:50 AM EDT Other Studies: Reviewed and as per electronic record. CxR/CT images personally reviewed by me when available; salient findings summarized in A/P. Objective: Vitals: BP 118/63 (BP Location: Right arm, Patient Position: Lying) Pulse 89 Temp 36.6 C (97.8 F) (Temporal) Resp 18 Ht 1.778 m (5' 10) Wt 62.4 kg (137 lb 9.6 oz) SpO2 97% BMI 19.74 kg/m Physical Exam Constitutional: General: He is not in acute distress. Appearance: Normal appearance. He is ill-appearing. HENT: Head: Normocephalic and atraumatic. Right Ear: External ear normal. Left Ear: External ear normal. Nose: Nose normal. Mouth/Throat: Mouth: Mucous membranes are moist. Pharynx: Oropharynx is clear. Eyes: Conjunctiva/sclera: Conjunctivae normal. Cardiovascular: Rate and Rhythm: Normal rate and regular rhythm. Pulses: Normal pulses. Heart sounds: Normal heart sounds. No murmur heard. No gallop. Pulmonary: Effort: Pulmonary effort is normal. No respiratory distress. Breath sounds: No wheezing or rales. Comments: Diminished left lower lobe. On 8L NC Abdominal: General: There is no distension. Musculoskeletal: Right lower leg: No edema. Left lower leg: No edema. Skin: Coloration: Skin is not jaundiced or pale. Neurological: General: No focal deficit present. Mental Status: He is alert and oriented to person, place, and time. Psychiatric: Mood and Affect: Mood normal. Behavior: Behavior normal. Associated attestation - Arun Lancaster MD - 01/24/2024 4:25 PM EDT I have personally performed a [id number] diagnostic evaluation on this patient on date of xtvlniv86/20/24. History, labs, imaging studies, and electronic medical record have been reviewed by me. This note documented by the [x]fellow []resident []ALEJANDRO reflects my history, exam, and medical decision making. I have reviewed and agree with the care plan. Changes were made in the orders as necessary. ROS documentation was reviewed and negative unless otherwise stated in HPI. Additional pertinent interval history, ROS, and physical exam findings: 78-year-old male with a history of chronic hypoxemic respiratory failure on 2 LPM supplemental O2, COPD (spirometry 11/20/23 showed moderate airflow obstruction), CAD s/p recent CABG, ischemic cardiomyopathy, ZOFIA on CKD stage G4 (dialysis-dependent), prior tobacco abuse admitted to [facility] 01/22/24 from [facility] for dyspnea and chest pain. CTA chest 01/23/24 showed bilateral pleural effusions (left > right), bibasilar consolidations and atelectasis concerning for possible pneumonia. Pulmonary consulted for increasing oxygen requirements. He underwent left thoracentesis 01/24/24, removed 1400 mL of fluid. Patient states symptoms overall are improved compared to admission. He is somewhat confused at times but overall pleasant, resting comfortable, hemodynamically stable, no acute distress. Assessment: Acute on chronic hypoxemic respiratory failure Bilateral pleural effusions, left > right Bibasilar atelectasis Bibasilar consolidations concerning for CAP COPD Chronic HFrEF, ischemic cardiomyopathy CAD s/p CABG ZOFIA on CKD stage G4, dialysis-dependent Plan: He had bilateral thoracenteses last admission, right side appeared transudative (Staph epi in brothlikely contaminant), overall consistent with underlying cardiac and renal disease Suspect recurrent hypoxia is largely driven by large bilateral effusions, left greater than right, underwent repeat left-sided thoracentesis 01/24/24 with 1400 mL removed, studies pending Reasonable to treat for pneumonia, recommend 5 days of antibiotics, try to obtain sputum for analysis if able, last admission he had Serratia pneumonia that was sensitive to ceftriaxone Recommend right-sided thoracentesis tomorrow, order placed Low concern for acute COPD exacerbation, reasonable to continue 5 days of steroids Start empiric maximum inhalation therapy with Dulera/Spiriva, consolidate to Trelegy or Breztri on discharge Continue scheduled Duonebs OPEP, IS, PT, OT, out of bed to chair, etc. Wean supplemental O2 for goal SpO2 > 92% given underlying cardiac disease Pulmonary will continue to follow Arun Lancaster MD Pulmonary & Critical Care Medicine [facility] Pager #[phone] [facility] [id number] Nurse Note* Leslie Comer RN - 01/24/2024 1:48 PM EDT Patient arrived to Ultrasound department for thoracentesis. History, medications and allergies reviewed. PA. Nolen in to discuss procedure and informed consent obtained. Patient assisted to sitting on the edge of the bed. Left upper back scanned, marked and prepped in sterile fashion. 1.4 L of dark Red fluid removed. Vaseline guaze dressing applied. Patient tolerated procedure well. [facility] [id number] Note* Care Coordination - Roxann Causey - 01/24/2024 12:49 PM EDT Ref[facility] via Careport per TCC request. Await review and response regarding ability to accept. TCC notified. [facility] [id number] Note* Care Coordination - Roxann Causey - 01/24/2024 12:49 PM EDT Referral [facility] to [facility] via Careport per TCC request. Await review and response regarding ability to accept. TCC notified. [facility] [id number] Note* Care Coordination - Rosalba Hills RN - 01/24/2024 12:34 PM EDT Care Managment Initial Assessment Date: 01/24/2024 Patient Name: Jose John : 1945 Patient Information Source of Information: Patient Cognition/Language: WFL - Within Functional Limits Permission given to speak with patient unit support representative/caregiver as indicated: No Confirmation of Payer with patient/family: Yes Payer Name: Medicare [place]: Confirmation of Primary Care Physician: Confirmed PCP Name: Dr Gabriel Primary Caregiver: If assistance needed, confirmed caregiver ready, willing and able to care for patient at discharge:Yes Confirmed with: Living Arrangements Current Residence: Number of Floors Number of Entry Steps: Bed/Bath Levels: Facility: Inpatient Rehab Facility Facility Name: Patient from [facility] Plan to Return: No Lives with: Spouse/significant other Support Systems: Activities of Daily Living Ambulation: Assistance Bathing/Dressing: Assistance Elimination/Continence/Toileting: Feeding: Who Assists with Activities of Daily Living: Instrumental Activities of Daily Living Prescription Coverage: Yes Pharmacy Used: Medication Management: Transportation/Shopping: Transportation Mode: Needs Assistance with Transportation at Discharge: Yes Meal Preparation: (facility) Laundry/Cleaning: Assistance Provider Finances/Bill Paying: Communication: Independent Types of Care Services/Equipment Utilized Care Services: Dialysis Type: Durable Medical Equipment: Patient's Goal/Discharge Plan [facility] Planning Actions: Continue to follow Patient's Choice Rights and [employer] and Collaborative Relationships Disclosed as Indicated for Post-Acute Care: Interdisciplinary Team Engagement: Social Work Referral for: Additional Information: [place] per patient. From [facility]. Does not want to return there. Patient would like referral to [facility]. Patient new to Hemo Dialysis. Was getting HD in house at [facility]. Referral in Careport to [facility]. Rosalba Hills RN [facility] [id number] Note* Care Coordination - Rosalba Hills RN - 01/24/2024 12:34 PM EDT Care Managment Initial Assessment Date: 01/24/2024 Patient Name: Jose John : 1945 Patient Information Source of Information: Patient Cognition/Language: WFL - Within Functional Limits Permission given to speak with patient unit support representative/caregiver as indicated: No Confirmation of Payer with patient/family: Yes Payer Name: Medicare : Confirmation of Primary Care Physician: Confirmed PCP Name: Dr Gabriel Primary Caregiver: If assistance needed, confirmed caregiver ready, willing and able to care for patient at discharge:Yes Confirmed with: Living Arrangements Current Residence: Number of Floors Number of Entry Steps: Bed/Bath Levels: Facility: Inpatient Rehab Facility Facility Name: Patient from [facility] Plan to Return: No Lives with: Spouse/significant other Support Systems: Activities of Daily Living Ambulation: Assistance Bathing/Dressing: Assistance Elimination/Continence/Toileting: Feeding: Who Assists with Activities of Daily Living: Instrumental Activities of Daily Living Prescription Coverage: Yes Pharmacy Used: Medication Management: Transportation/Shopping: Transportation Mode: Needs Assistance with Transportation at Discharge: Yes Meal Preparation: (facility) Laundry/Cleaning: Assistance Provider Finances/Bill Paying: Communication: Independent Types of Care Services/Equipment Utilized Care Services: Dialysis Type: Durable Medical Equipment: Patient's Goal/Discharge Plan Patient expects to be discharged to: [facility] Discharge Planning Actions: Continue to follow Patient's Choice Rights and [employer] and Collaborative Relationships Disclosed as Indicated for Post-Acute Care: Interdisciplinary Team Engagement: Social Work Referral for: Additional Information: [place] per patient. From [facility]. Does not want to return there. Patient would like referral to [facility]. Patient new to Hemo Dialysis. Was getting HD in house at [facility]. Referral in Careport to [facility]. Rosalba Hills RN [facility] [id number] Plan of care note* Care Plan - Jose Murrell RN - 01/24/2024 12:19 AM EDT Problem: Knowledge Deficit Goal: Patient/family/caregiver demonstrates understanding of disease process, treatment plan, medications, and discharge instructions Outcome: Progressing Flowsheets (Taken 01/24/2024 0019) Patient/family/caregiver demonstrates understanding of disease process, treatment plan, medications, and discharge instructions: Provide teaching at level of understanding [facility] [id number] Plan of care note* Care Plan - Candy Yepez RN - 01/23/2024 7:04 PM EDT Problem: Potential for Compromised Skin Integrity Goal: Skin Integrity is Maintained or Improved Outcome: Progressing Goal: Nutritional status is improving Outcome: Progressing [facility] [id number] Nurse Note* Candido Lawson - 01/23/2024 6:30 PM EDT Patient Name: Jose John Patient : 1945 Acct: [id number] Date of Admission: 01/22/2024 Room[facility]Bed: [facility] A Code Status: Prior Allergies: Allergies Allergen Reactions Lisinopril Wheezing Penicillins Anaphylaxis Sulfa Antibiotics Anaphylaxis Levofloxacin Nausea Only Diagnosis: Patient Active Problem List Diagnosis Unstable angina ([facility]) ([facility]) Coronary artery disease Multi-vessel coronary artery stenosis Carotid artery bruit Carotid arterial disease ([facility]) NSTEMI (non-ST elevated myocardial infarction) ([facility]) CKD (chronic kidney disease) stage 4, GFR 15-29 ml/min ([facility]) Cardiomyopathy, ischemic S/P CABG (coronary artery bypass graft) Severe malnutrition ([facility]) ([facility]) Shortness of breath Treatment: Hemodilaysis 2:1 Priority: Routine Location: Acute Room Diabetic: Yes NPO: No Isolation Precautions: Dialysis Consent for Treatment Verified: Yes Blood Consent Verified: Not Applicable ICEBOAT: Identify, Consent, Equipment, HepB Status, Orders Complete, Access Verified, Timeliness (o2 wall suction bedside) Second Clinician Verifying: Victoriano Christy Time out performed prior to access at 1630 . Report Received from Primary RN at 1405. Primary RN (First Initial, Last Name, Title): Praveena YEPEZ RN Incapacitated Nurse Education Completed: shaheen prieto HBsAg ONLY: Date Drawn: January 17, 2024 Results: Negative HBsAb: Date Drawn: January 17, 2024 Results: Susceptible <10 Order Dialyzer: Revaclear 300 Na+ Modeling: Not Applicable Dialysate Temperature (C): 36 Blood Flow Rate (BFR): 400 Dialysate Flow Rate (DFR): 600 Access to be Utilized Access: Tunneled Catheter Location: Internal Jugular Side: Right Needle gauge: Not Applicable + Bruit/Thrill: Not Applicable First Use X-ray Verified: Not Applicable OK to use line order: Yes Site Assessment: Signs and Symptoms of Infection/Inflammation: None If yes: Not Applicable Dressing: Dry and Intact Site Prep: Medical Aseptic Technique Dressing Changed this Treatment: Yes If yes, by whom: Linda MILLS Date of Last Dressing Change: January 23, [address]?: Yes Red Alcohol Caps in place?: Yes Gauze Dressing?: No Non-Dialysis Use?: No Comment: Flows: Good and Patent If access problem, who was notified: Pre and Post-Assessment Patient Vitals for the past 8 hrs: Level of Consciousness Oriented X Heart Rhythm Respiratory Pattern O2 Device Bilateral Breath Sounds Skin Color Skin Condition/Temp Abdomen Inspection Bowel Sounds (All Quadrants) 01/23/24 1626 Alert (0) 3 Regular Other (Comment) Nasal cannula Diminished Pale Warm;Dry;No swelling Soft Active 01/23/24 193 Alert (0) 3 Regular -- Nasal cannula Clear Pale -- -- -- Labs Lab Results Component Value Date/Time WBC 8.4 01/22/20241917 HGB 8.3 (L) 01/22/20241917 HGB 9.6 12/04/2023 0012 HCT 27.2 (L) 01/22/20241917 PLT 265 01/22/20241917 NA 133 (L) 01/22/20241917 K 4.7 01/22/20241917 CL 96 (L) 01/22/20241917 CO2 28 01/22/20241917 BUN 29 (H) 01/22/20241917 CREATININE 5.26 (H) 01/22/20241917 CALCIUM 8.7 01/22/20241917 PHOS 4.4 01/07/2024 0341 IV Drips and Rate/Dose Safety - Before each treatment: Dialysis Machine No.: [id number] RO Machine Number: [id number] Dialyzer Lot No.: [id number] Tubing Lot Number: [id number] All Connections Secure: Yes Venous Parameters Set: Yes Arterial Parameters Set: Yes NS Bag: Yes Saline Line Double Clamped: Yes Dialyzer: Revaclear 300 Prime Volume (mL): 200 mL RO Machine Number: [id number] RO Machine Log Sheet Completed: Yes Machine Alarm Self Test: Completed, Passed (01/23/24 1526) Air Foam Detector: Tested, Proper Function, pH Reading Extracorporeal Circuit Tested for Integrity: Yes Machine Conductivity: 13.8 Manual Conductivity: 13.7 Manual Ph: 7 Bleach Test (Neg): Yes Bath Temperature: 36 C (96.8 F) Conductivity Meter Serial #: [id number] Machine Functioning Alarm Free? Yes Dialysis Bath: K+ (Potassium): 3 Ca+ (Calcium): 2.5 Na+ (Sodium): 138 HCO3 (Bicarb): 37 Chlorine Testing - Before each treatment and every 4 hours: Time On: 163 Time Off: 193 Weight Height: 177.8 cm (5' 10) (01/22/24 1856) Weight: 62.4 kg (137 lb 9.6 oz) (01/23/24 1251) BMI (Calculated): 19.74 (01/23/24 1251) 1st check: less than 0.1 ppm at: 1445 2nd check: less than 0.1 ppm at: 1745 3rd check: Not Applicable (if greater than 0.1 ppm, then check every 30 minutes from secondary) Access Flows and Pressures Patient Vitals for the past 8 hrs: Blood Flow Rate (mL/min) Ultrafiltration Rate (ml/hr) Arterial Pressure (mmHg) Venous Pressure (mmHg) TMP DFR Access Visible Intra-Hemodialysis Comments 01/23/24 1635 200 mL/min 830 ml/hr -30 mmHg 0 mmHg 40 600 Yes Tx initated call light within reach 01/23/24 1647 400 mL/min 136 ml/hr -80 mmHg 70 mmHg 90 600 Yes pt alert, stable, removed 135 01/23/24 1704 400 mL/min 136 ml/hr -80 mmHg 90 mmHg 50 600 Yes pt resting, removed 363, goal lowered to 1500, to support bp 01/23/24 1715 400 mL/min 0 ml/hr -100 mmHg 90 mmHg 80 600 Yes pt alert, stable, uf turned off to support bp, removed 498 01/23/24 1730 400 mL/min 0 ml/hr -110 mmHg 4100 mmHg 70 600 Yes pt alet, stable, uf remains off 01/23/24 1745 400 mL/min 0 ml/hr -100 mmHg 100 mmHg 70 600 Yes Pt resting rmv 498 01/23/24 1800 400 mL/min -- -100 mmHg 90 mmHg 70 600 Yes UF back on and goal down to 1000. pt stable 01/23/24 1815 400 mL/min 90 ml/hr -110 mmHg 100 mmHg 70 600 Yes goal to 700. pt stable, states he feels fine. uf removed is 583 01/23/24 1823 -- -- -- -- -- -- -- bicarb changed out conductivity is 13.8 ph 7 01/23/24 1830 400 mL/min 90 ml/hr -110 mmHg 100 mmHg 70 600 Yes pt alert, watching tv, removed 611 01/23/24 1840 400 mL/min 90 ml/hr -100 mmHg 100 mmHg 70 600 Yes pt alert, stable, telling jokes to staff, removed 628 01/23/24 1900 400 mL/min 90 ml/hr -110 mmHg 100 mmHg 70 600 Yes pt alert, watching tv, lines secure, removed 651 01/23/24 1910 400 mL/min 90 ml/hr -100 mmHg 110 mmHg 70 600 Yes Lines secure rmv 671 01/23/24 193 -- -- -- -- -- -- -- tx dcd, removed 700 Vital Signs Patient Vitals for the past 24 hrs: BP Temp Temp src Pulse Resp SpO2 Weight 01/23/241935 120/60 36.7 C (98.1 F) -- 84 -- -- -- 06/19/24 1935 115/59 -- -- 83 -- -- -- 01/23/24 1910 116/50 -- -- 83 -- -- -- 01/23/24 1900 116/56 -- -- 82 -- -- -- 01/23/24 1840 109/61 -- -- 84 -- -- -- 01/23/24 1830 111/52 -- -- 82 -- -- -- 01/23/24 1815 91/50 -- -- 79 -- -- -- 01/23/24 1800 (!) 114/43 -- -- 83 -- -- -- 01/23/24 1745 (!) 87/50 -- -- 76 -- -- -- 01/23/24 1730 103/50 -- -- 76 -- -- -- 01/23/24 1715 (!) 83/45 -- -- 75 -- -- -- 01/23/24 1704 (!) 93/44 -- -- 75 -- -- -- 01/23/24 1647 124/79 -- -- 74 -- -- -- 01/23/24 1635 119/62 -- -- 76 -- -- -- 01/23/24 1626 115/60 36.7 C (98 F) -- 76 18 91 % -- 01/23/24 1427 -- -- -- 76 18 95 % -- 01/23/24 1251 -- -- -- -- -- -- 62.4 kg (137 lb 9.6 oz) 01/23/24 1249 110/61 36.2 C (97.1 F) Temporal 77 18 (!) 92 % -- 01/23/24 1100 123/60 -- -- 76 17 -- -- 01/23/24 1059 (!) 158/70 -- -- 76 18 93 % -- 01/23/24 1045 116/77 -- -- 74 20 95 % -- 01/23/24 0821 -- -- -- -- -- (!) 92 % -- 01/23/24 0818 119/62 -- -- 81 18 (!) 91 % -- 01/23/24 0635 (!) 181/75 -- -- 82 20 98 % -- 01/23/24 0552 -- -- -- 84 20 93 % -- 01/23/24 0437 (!) 148/69 -- -- 80 17 97 % -- 01/23/24 0312 (!) 143/78 -- -- 80 20 95 % -- 01/23/24 0218 -- -- -- 78 23 96 % -- 01/23/24 0000 116/51 -- -- 80 18 95 % -- 01/22/248 -- -- -- -- -- 100 % -- 01/22/242199 121/73 -- -- 75 18 100 % -- 01/22/242105 -- -- -- 74 20 100 % -- 01/22/242056 -- -- -- -- -- (!) 91 % -- 01/22/242054 -- -- -- -- -- (!) 88 % -- Post-Dialysis Arterial Catheter Locking Solution: Heparin (1000units:1ml) Volume (ml): 1.9 Venous Catheter Locking Solution: Heparin (1000units:1ml) Volume (ml): 2 Post-Treatment Procedures: Blood returned, Catheter capped, clamped and heparinized x 2 ports Machine Disinfection Process: Acid/Vinegar Clean, Heat Disinfect, Exterior Machine Disinfection Rinseback Volume (mL): 300 mL Total Liters Processed (L/min): 67.2 L/min Dialyzer Clearance: Lightly streaked Hemodialysis Intake (ml): 500 ml Hemodialysis Output (ml): 700 ml NET Removed (ml): 200 ml Tolerated Treatment: Fair Charge: $ IP Hemodialysis Charge: Hemodialysis Provider Notification Provider Notification Reason for Communication: Patient request (pain med for LIRA, no PRNs available) Provider Name: Maddie Provider Role: Hospitalist Method of Communication: Secure chat Response: Waiting for response Notification Time: 0620 Reason for Communication: Patient request (pain med for LIRA, no PRNs available) Provider Role: Hospitalist Method of Communication: Secure chat Response: Waiting for response Notification Time: 0620 Handoff complete and report given to Primary RN at 1950. Primary RN (First Initial, Last Name, Title): A MONI RN Education Person Educated: Patient Knowledge Base: Substantial Barriers to Learning?: None Preferred method of Learning: Oral Topic(s): call light, Access Care, Signs and Symptoms of Infection, Fluid Management, and Procedural Teaching Tools: Explanation Response to Education: Verbalized Understanding [facility] [id number] Consult note* Kaushal Santiago MD - 01/23/2024 1:46 PM EDT Associated Order(s): IP CONSULT TO NEPHROLOGY [facility] [place] [address] [place], [place] [phone] Consult Note Patient's Name: Jose John 1:46 PM 01/23/2024 Reason for Consult: dialysis management History of Present Ilness: Jose John is a 78 y.o. male with PMHX oif T2DM, essential HTN and ZOFIA on CKD4 presented to the hospital with worsening SOB. Patient with recent hospitalization in december 2023 where patient had complicated hospital course including septic shock and worsening ZOFIA with invitation of CRRT and transition to iHD. Patient remains dialysis dependent MWF, denies increased urine production since being initiated on dialysis. Otherwise without any complication and tolerating well. Patient presented this time with acute hypoxic respiratory failure with worsening SOB. He appeared lethargic on exam, awoke to answer some questions. Heotherwise denied chest pain, f/c/n, productive cough. Changes in bowel or urine. No past medical history on file. No past surgical history on file. No family history on file. reports that he has never smoked. He has never used smokeless tobacco. Allergies: Lisinopril, Penicillins, Sulfa antibiotics, and Levofloxacin Medications: Current Facility-Administered Medications on File Prior to Encounter Medication Dose Route Frequency Provider Last Rate Last Admin [DISCONTINUED] GENERIC EXTERNAL MEDICATION Generic External Data Provider [DISCONTINUED] GENERIC EXTERNAL MEDICATION Generic External Data Provider [DISCONTINUED] GENERIC EXTERNAL MEDICATION Generic External Data Provider [DISCONTINUED] GENERIC EXTERNAL MEDICATION Generic External Data Provider [DISCONTINUED] GENERIC EXTERNAL MEDICATION Generic External Data Provider [DISCONTINUED] GENERIC EXTERNAL MEDICATION Generic External Data Provider [DISCONTINUED] GENERIC EXTERNAL MEDICATION Generic External Data Provider [DISCONTINUED] GENERIC EXTERNAL MEDICATION Generic External Data Provider [DISCONTINUED] GENERIC EXTERNAL MEDICATION Generic External Data Provider [DISCONTINUED] GENERIC EXTERNAL MEDICATION Generic External Data Provider [DISCONTINUED] GENERIC EXTERNAL MEDICATION Generic External Data Provider [DISCONTINUED] GENERIC EXTERNAL MEDICATION Generic External Data Provider [DISCONTINUED] GENERIC EXTERNAL MEDICATION Generic External Data Provider [DISCONTINUED] GENERIC EXTERNAL MEDICATION Generic External Data Provider [DISCONTINUED] GENERIC EXTERNAL MEDICATION Generic External Data Provider [DISCONTINUED] GENERIC EXTERNAL MEDICATION Generic External Data Provider [DISCONTINUED] GENERIC EXTERNAL MEDICATION Generic External Data Provider [DISCONTINUED] GENERIC EXTERNAL MEDICATION Generic External Data Provider [DISCONTINUED] GENERIC EXTERNAL MEDICATION Generic External Data Provider [DISCONTINUED] GENERIC EXTERNAL MEDICATION Generic External Data Provider Current Outpatient Medications on File Prior to Encounter Medication Sig Dispense Refill amiodarone (Pacerone) 200 MG tablet Take 1 tablet (200 mg) by mouth daily. 0 aspirin 81 MG chewable tablet Chew 1 tablet (81 mg) daily. 0 atorvastatin (Lipitor) 80 MG tablet Take 1 tablet (80 mg) by mouth daily. 0 gabapentin (Neurontin) 100 MG capsule Take 1 capsule (100 mg) by mouth 2 times daily. 0 insulin glargine (Lantus) 100 UNIT/ML injection Inject 7 Units under the skin Nightly. 0 ipratropium-albuterol (Duo-Neb) 0.5-2.5 mg/3 mL nebulizer solution Take 3 mL by nebulization 3 times daily as needed for wheezing or shortness of breath. 0 omeprazole OTC (PriLOSEC OTC) 20 MG EC tablet Take 20 mg by mouth in the morning and 20 mg in the evening. Take before meals. Do not crush, chew, or split.. sertraline (Zoloft) 50 MG tablet Take 1 tablet (50 mg) by mouth daily. 0 tamsulosin (Flomax) 0.4 MG 24 hr capsule Take 0.4 mg by mouth daily. Review of Systems: ROS as in HPI Physical exam: BP 110/61 Pulse 77 Temp 36.2 C (97.1 F) (Temporal) Resp 18 Ht 1.778 m (5' 10) Wt 62.4 kg(137 lb 9.6 oz) SpO2 (!) 92% BMI 19.74 kg/m General: NAD, alert, lethargic/somnolent Head: Atraumatic on anterior inspection Psych: Unaable to assess Eyes: Lids symmetric Chest: bilateral vesicular breath sounds, no rales Cardiac: S1, S2 Abdomen: Nontender SKIN: dry Extremities: Trace lower extremity edema Labs: Recent Labs 01/22/241917 WBC 8.4 HGB 8.3* HCT 27.2* MCV 92.5 PLT 265 Recent Labs 01/22/241917 NA 133* K 4.7 CL 96* CO2 28 GLUCOSE 85 BUN 29* CREATININE 5.26* CALCIUM 8.7 Ionized Calcium: No components found for: IONCA Magnesium: No results found for: MG Phosphorus: No results found for: PHOS Input / Output: 24 HR: Intake/Output Summary (Last 24 hours) at 01/23/2024 1346 Last data filed at 01/23/2024 0502 Gross per 24 hour Intake 50 ml Output -- Net 50 ml IV Intake: [place]: Imaging: Narrative & Impression Patient Name: JOSE JOHN : 1945 Exam Date/Time: 01/23/2024 00:36 Procedure: CT CHEST ANGIOGRAM W AND/OR WO IV CONTRAST Ordering Provider: WILD KATHRYN Reason For Exam: Concern for PE History: Chest discomfort. Comparison: 11/23/2023 Findings: Dose reduction was employed with automated exposure control. Enhanced imaging of the chest was performed with 1 mm slices from neck to upper abdomen. 75 cc isovue 370 utilized. Additional images: 3-D imaging created and reviewed on independent platform for better detection ofpathology. Airway:Grossly patent. Mediastinum and great vessels: Cardiac enlargement. Atherosclerotic calcifications. No large central PE visualized. .No convincing adenopathy. Previously seen upper/superior mediastinal paratracheal soft tissue or fluid focus not clearly visualized currently. Limited by beam hardening artifact. Respiratory motion limits evaluation of more peripheral vascular structures and parenchyma. LUNGS:Abnormal. Volume loss related to effusions which may be loculated. Infiltrate densities especially left upper lobe. Compressive atelectasis lower lobes bilaterally. Worsening volume loss especially on the left compared to prior, mostly due to increasing effusion. Spine: No convincing acute or occult process.. Upper abdomen: No convincing evidence of acute process.. Cholecystectomy. IMPRESSION: Impression:No large central PE. Effusions, infiltrates, atelectasis. Findings concerning for pneumonia. Worsening volume loss especially on the left compared to prior. Follow-up recommended.. Report Dictated on Electronically Signed By: Jorge Purdy MD Electronically Signed Date/Time: 01/23/2024 12:50 AM EDT Assessment: Jose John is a 78 y.o. male with PMHX oif T2DM, essential HTN and ZOFIA on CKD4 presented to the hospital with worsening SOB. We are consulted for ongoing dialysis management. ZOFIA on advanced CKD initiated on iHD 12/2023 progressing towards ESRD Anemia of CKD CKD MBD Acute respiratory failure PLAN: - Will continue with iHD today continue MWF while here - Iron studies. Transfuse for Hg < 7 - Daily BMP, phos, Ca, albumin 2x weekly - no indication for phos binders, goal 3.5-5.5 - accurate I&O - monitor for renal recovery - dose meds for eGFR < 15 - Daily nephrocaps while on [employer] Kaushal Santiago MD [id number] Emergency department Note* Len Cates RN - 01/23/2024 11:48 AM EDT Pt report to 4w RN at this time. All questions answered. Len Cates RN 01/23/24 1149 [id number] Emergency [facility] Note* Len Cates RN - 01/23/2024 11:48 AM EDT Pt report to 4w RN at this time. All questions answered. Len Cates RN 01/23/24 1149 * Len Cates RN - 01/23/2024 11:37 AM EDT Pt in bed side rails up. Family visitor updated at this time. Len Cates RN 01/23/24 1140 * Len Cates RN - 01/23/2024 11:16 AM EDT Family reports to RN they are taking his phone home. Pt agrees with plan per daughter. Pt phone with daughter. Len Cates RN 01/23/24 1117 * Donya Rodríguez RN - 01/23/2024 6:20 AM EDT Breakfast order placed for pt Donya Rodríguez RN 01/23/24 0620 * Donya Rodríguez RN - 01/23/2024 5:52 AM EDT Pt placed back on venti mask after trailing NC by RT. Pt sleeps with mouth open and spo2 drops. Donya Rodríguez RN 01/23/24 0600 * Donya Rodríguez RN - 01/23/2024 5:19 AM EDT Pt switched to a NC at 6L by RT. Pt pulls off mask/tubing in sleep, causing his spo2 to drop and alarms sound. Pt very upset regarding his current circumstances. Pt reports just pull the plug, I don't want to do this anymore. Pt appears overwhelmed by everything that has happened in the past few months and his chronic health conditions. Pt has been in the hospital/rehab since November. He can onlysee his on weekends. Pt very stressed about alarms. This RN and ED RT have been trying to manage pt oxygen/spo2 so it does not alarm. Dr duvall made aware of pt conversations. Donya Rodríguez RN 01/23/24 0523 * Donya Rodríguez RN - 01/23/2024 3:10 AM EDT Pt moved into a hospital bed for comfort and safety. Pt educated to keep venti mask on face, pt agreeable. Pt changed into a gown. Pt reports he does not need a new brief at this time. Clean chux andpull sheet under pt Donya Rodríguez RN 01/23/24 0328 * Donya Rodríguez RN - 01/22/2024 11:40 PM EDT Pt given hot TV dinner. Pt educated meal was hot. Pt assisted in cutting up food. Donya Rodríguez RN 01/22/24 2340 * Donya Rodríguez RN - 01/22/2024 10:46 PM EDT Pt given jello, andorran ice, ana crackers and diet coke. Pt ok to eat per dr lois Rodríguez RN 01/22/24 2246 * Donya Rodríguez RN - 01/22/2024 9:00 PM EDT Pt spo2 alarm going off. At bedside to assess pt. Pt spo2 88% with good wave form, pt alert, talking to this RN. Pt reports when he falls asleep it starts to alarm. Spoke to ED providers, will try venti mask at this time. Spoke to RT to discuss where to start pt, RT recommended starting pt at 50% fio2. Pt educated on changing O2 devices, in agreement with plan. Pt changed to venti mask without issue. Donya Rodríguez RN 01/22/242108 * Ludmila Shaw RN - 01/22/2024 7:58 PM EDT Report to zarina Shaw RN 01/22/241958 * Amanda Wild DO - 01/22/2024 6:51 PM EDT Emergency Department Encounter [facility] EMERGENCY DEPT Patient: Jose John : 1945 Date of Evaluation: 01/22/2024 ED Supervising Physician: Amanda Wild DO I personally evaluated Jose John and made/approved the management plan and take responsibility for the patient management. This will serve as my Supervisory note and shared attestation. I did perform a substantive portion of the visit including all aspects of the Medical Decision Making. I wore appropriate PPE for the entirety of this encounter. In brief, Jose John is a 78 y.o. medical history of recent CABG 11/21/23, CKD 4 on hemodialysis Sunday still makes urine, ischemic cardiomyopathy, DM, chronic hypoxic respiratory failure on 2 L baseline that presents to the emergency department with increasing shortness of breath/oxygen requirement over the last 3 days with intermittent left-sided chest pressure. Now requiring 3 L. Noted to have new left-sided pleural effusion on chest x-ray at rehab facility. Reportsintermittent nonradiating left-sided chest pressure lasting for 5 minutes at a time with no provoking features. No associated diaphoresis, lightheadedness, nausea/vomiting, lower extremity swelling, calf pain. Focused exam: BP 121/73 Pulse 75 Temp 36.6 C (97.8 F) (Oral) Resp 18 Ht 1.778 m (5' 10) Wt 56.7 kg (125 lb) SpO2 100% BMI 17.94 kg/m Constitutional: Alert, awake Lungs: Saturating well on 3 L nasal cannula, diminished air movement appreciated on the left, conversational Heart: RRR , no murmurs, equal distal pulses to extremities, no peripheral edema/erythema/warmth ofLEs b/l. Vascular: radial 2/4 equal B/L, dp 2/4 equal B/L Brief ED course/MDM: 78 y.o. medical history of recent CABG 11/21/23, CKD 4 on hemodialysis Sunday stillmakes urine, ischemic cardiomyopathy, DM, chronic hypoxic respiratory failure on 2 L baseline that presents to the emergency department with increasing shortness of breath/oxygen requirement over thelast 3 days with intermittent left-sided chest pressure. Now requiring 3 L. Noted to have new left-sided pleural effusion on chest x-ray at rehab facility. Reports intermittent nonradiating left-sided chest pressure lasting for 5 minutes at a time with no provoking features. No associated diaphoresis, lightheadedness, nausea/vomiting, lower extremity swelling, calf pain. Considered pleural effusion from CHF, pneumonia, viral process, PE Vital signs stable on 3 L nasal cannula. Not tachycardic. Labs without leukocytosis. Baseline renalfunction. Troponin negative. BNP elevated but no prior available for comparison. D-dimer elevated. Procalcitonin elevated. Chest x-ray with increased vascular congestion and left pleural effusion. Plan to admit to floor once CT PE obtained to rule out pulmonary embolism. ED Medications managed: Medications - No data to display Diagnostics interpreted by me: Xray(s) CT scan(s) EKG; see my interpretation elsewhere in the chart All diagnostic, treatment, and disposition decisions were made by myself in conjunction with the Resident. I also supervised alexandre portions of any procedures performed by the Resident. For all further details of the patient's emergency department visit, please see their documentation. (Comment: Please note this report has been produced using speech recognition software and may contain errors related to that system including errors in grammar, punctuation, and spelling, as well as words and phrases that may be inappropriate. If there are any questions or concerns please feel freeto contact the dictating provider for clarification.) Amanda Wild DO [employer] Amanda Wild DO 01/22/24 9833 * Pepe Gleason II, MD - 01/22/2024 6:51 PM EDT EMERGENCY DEPARTMENT ENCOUNTER Pt Name: Jose John Birthdate 1945 Date of evaluation: 01/22/2024 ED Provider: Pepe Gleason II, MD CHIEF COMPLAINT Chief Complaint Patient presents with Shortness of Breath Pt sent in from [facility] for [facility] effusion. Pt states he has 3/10 left side chest pain . Hx ofCABG in November of this year. . HISTORY OF PRESENT ILLNESS (Location/Symptom, Timing/Onset, Context/Setting, Quality, Duration, Modifying Factors, Severity) Note limiting factors. I wore appropriate PPE for the entirety of this encounter. HPI Jose John is a 78 y.o. who presents to the emergency department with concerns for chest pain and respiratory distress. Patient is staying at [facility], and he states that he has been having chest pain that is intermittent and pleuritic, as well as shortness of breath for the past approximately 3 days. He states that he was recently started on supplemental oxygen, for which she is now on 3 L. Patient receives dialysis every Sunday and lastgot this yesterday. Patient is denying any diaphoresis, nausea or vomiting, abdominal pain, or other symptoms. Nursing Notes were reviewed. Limitations to history: Outside historians: REVIEW OF SYSTEMS Review of Systems Pertinent positives and negatives as per HPI. PAST MEDICAL HISTORY No past medical history on file. SURGICAL HISTORY No past surgical history on file. CURRENT MEDICATIONS Previous Medications AMIODARONE (PACERONE) 200 MG TABLET Take 1 tablet (200 mg) by mouth daily. ASPIRIN 81 MG CHEWABLE TABLET Chew 1 tablet (81 mg) daily. ATORVASTATIN (LIPITOR) 80 MG TABLET Take 1 tablet (80 mg) by mouth daily. GABAPENTIN (NEURONTIN) 100 MG CAPSULE Take 1 capsule (100 mg) by mouth 2 times daily. INSULIN GLARGINE (LANTUS) 100 UNIT/ML INJECTION Inject 7 Units under the skin Nightly. IPRATROPIUM-ALBUTEROL (DUO-NEB) 0.5-2.5 MG/3 ML NEBULIZER SOLUTION Take 3 mL by nebulization 3 times daily as needed for wheezing or shortness of breath. OMEPRAZOLE OTC (PRILOSEC OTC) 20 MG EC TABLET Take 20 mg by mouth in the morning and 20 mg in the evening. Take before meals. Do not crush, chew, or split.. SERTRALINE (ZOLOFT) 50 MG TABLET Take 1 tablet (50 mg) by mouth daily. TAMSULOSIN (FLOMAX) 0.4 MG 24 HR CAPSULE Take 0.4 mg by mouth daily. ALLERGIES Lisinopril, Penicillins, Sulfa antibiotics, and Levofloxacin FAMILY HISTORY No family history on file. SOCIAL HISTORY Social History Socioeconomic History Marital status: Tobacco Use Smoking status: Never Smokeless tobacco: Never Social Determinants of Health Financial Resource Strain: Low Risk (12/27/2023) [facility] from [facility] Overall Financial Resource Strain (CARDIA) Difficulty of Paying Living Expenses: Not hard at all Food Insecurity: No Food Insecurity (12/27/2023) Received from [facility], [facility] Hunger Vital Sign Worried About Running Out of Food in the Last Year: Never true Ran Out of Food in the Last Year: Never true Transportation Needs: No Transportation Needs (12/20/2023) PRAPARE - Transportation Lack of Transportation (Medical): No Lack of Transportation (Non-Medical): No Stress: No Stress Concern Present (12/26/2023) Received from [facility], [facility] [place] [facility] [employer] - Occupational Stress Questionnaire Feeling of Stress : Not at all Social Connections: Socially Integrated (12/27/2023) Received from [facility], [facility] Social Connection and Isolation Panel [NHANES] Frequency of Communication with Friends and Family: Three times a week Frequency of Social Gatherings with Friends and Family: Once a week Attends Temple Services: More than 4 times per year Active Member of Clubs or Organizations: Yes Attends Club or Organization Meetings: 1 to 4 times per year Marital Status: Intimate Partner Violence: Not At Risk (12/20/2023) Humiliation, Afraid, Rape, and Kick questionnaire Fear of Current or Ex-Partner: No Emotionally Abused: No Physically Abused: No Sexually Abused: No Housing Stability: Unknown (12/27/2023) Received from [facility], [facility] Housing Stability Vital Sign Unable to Pay for Housing in the Last Year: No In the last 12 months, was there a time when you did not have a steady place to sleep or slept in ashelter (including now)?: No SCREENINGS PHYSICAL EXAM ED Triage Vitals Temp Heart Rate Resp BP 01/22/24185501/22/24185501/22/24185501/22/241855 36.6 C (97.8 F) 72 16 107/55 SpO2 Temp Source Heart Rate Source Patient Position 01/22/24185501/22/24185501/22/24 2200 -- (!) 88 % Oral Monitor BP Location FiO2 (%) -- 06/18/24 2106 50 % Physical Exam Vitals and nursing note reviewed. Constitutional: General: He is not in acute distress. Appearance: He is well-developed. HENT: Head: Normocephalic and atraumatic. Eyes: Conjunctiva/sclera: Conjunctivae normal. Cardiovascular: Rate and Rhythm: Normal rate and regular rhythm. Heart sounds: No murmur heard. Pulmonary: Effort: Pulmonary effort is normal. No respiratory distress. Breath sounds: Normal breath sounds. Abdominal: Palpations: Abdomen is soft. Tenderness: There is no abdominal tenderness. Musculoskeletal: General: No swelling. Cervical back: Neck supple. Skin: General: Skin is warm and dry. Capillary Refill: Capillary refill takes less than 2 seconds. Neurological: Mental Status: He is alert. Psychiatric: Mood and Affect: Mood normal. DIAGNOSTIC RESULTS RADIOLOGY (Per Emergency Physician): Interpretation per the Radiologist below, if available at the time of this note: XR chest 1 view Final Result 1. Increasing vascular congestion, left lower lung atelectasis versus infiltrates and left pleural effusion. 2. Otherwise, stable. Report Dictated on Electronically Signed By: Miguel A Victoria MD Electronically Signed Date/Time: 01/22/2024 7:[address] chest angiogram w and/or wo IV contrast (Results Pending) LABS: Labs Reviewed CBC WITH AUTO DIFFERENTIAL - Abnormal Result Value Auto WBC 8.4 RBC 2.94 (*) Hemoglobin 8.3 (*) Hematocrit 27.2 (*) MCV 92.5 MCH 28.2 MCHC 30.5 RDW 16.4 (*) Platelets 265 MPV 9.1 nRBC 0.0 Neutrophils Relative 70.6 Lymphocytes Relative 10.3 (*) Monocytes Relative 12.0 Eosinophils Relative 5.5 Basophils Relative 1.1 Immature Grans % 0.5 Neutrophils Absolute 5.9 Lymphocytes Absolute 0.9 (*) Monocytes Absolute 1.0 (*) Eosinophils Absolute 0.5 Basophils Absolute 0.1 Immature Grans Absolute 0.0 BASIC METABOLIC PANEL - Abnormal SODIUM 133 (*) POTASSIUM 4.7 CHLORIDE 96 (*) CARBON DIOXIDE 28 UREA NITROGEN 29 (*) CREATININE 5.26 (*) GLUCOSE 85 CALCIUM 8.7 ANION GAP 9 eGFR 10.6 (*) D-DIMER,QUANTITATIVE - Abnormal D-DIMER, INNOVANCE 2.67 (*) Narrative: Innovance D-Dimer values of <0.50 mg/L FEU can be used in combination with a pre-test probability model (e.g. Well's) to exclude pulmonary embolism (PE) disease, as well as an aid in the diagnosisof deep vein thrombosis (DVT). PROCALCITONIN TEST - Abnormal PROCALCITONIN 0.38 (*) Narrative: PCT <0.50 = Low risk of severe sepsis and/or septic shock. PCT >2.00 = High risk of severe sepsis and/or septic shock. NT PRO BNP - Abnormal NT PRO BNP 18,500 (*) SARS-COV-2, FLU A/B, AND RSV COMBO - Normal SARS-CoV-2 Not Detected Respiratory Syncytial Virus Not Detected Influenza A Not Detected Influenza B Not Detected Narrative: Methodology: real-time, RT-PCR TROPONIN, WITH SERIAL REFLEX - Normal TROPONIN I 0.023 Narrative: Patients with high levels of Biotin oral intake (ie >5 mg/day) may have falsely decreased Troponin levels. TROPONIN I TROPONIN I All other labs were within normal range or not returned as of this dictation. EMERGENCY DEPARTMENT COURSE and DIFFERENTIAL DIAGNOSIS/MDM: Vitals: Vitals: 01/22/24 2057 01/22/24 2106 01/22/24 2200 01/22/24 2228 BP: 121/73 Pulse: 74 75 Resp: 20 18 Temp: TempSrc: SpO2: (!) 91% 100% 100% 100% Weight: Height: 78-year-old male presenting to the emergency department with concerns for chest pain and respiratory distress. Chest x-ray visualized bilateral pleural effusions, the patient does have an elevated BNP to over 18,000. Patient has elevated D-dimer, and so CT angiography was obtained to exclude PE, given high risk profile and clinical symptoms. CT angiography of the chest was pending at the completion of my shift. BMP, CBC, and respiratory panel were unremarkable, save for findings consistent withESRD. Patient was requiring approximately 8 L of supplemental oxygen by Venturi mask. Patient was endorsed to oncoming provider at the completion of my shift with final disposition pending. Anticipate hospital admission pending results of CT angiography of the chest. Diagnoses as of 01/23/24 0219 Shortness of breath Pleural effusion Pneumonia due to infectious organism, unspecified laterality, unspecified part of lung External records reviewed: Diagnostics interpreted by me: Discussions with other clinicians: Chronic conditions impacting care: Social determinants of health affecting care: ED Medications managed: Medications - No data to display Prescription drugs considered: PROCEDURES: Unless otherwise noted below, none Procedures FINAL IMPRESSION No diagnosis found. DISPOSITION PATIENT REFERRED TO: No follow-up provider specified. DISCHARGE MEDICATIONS: New Prescriptions No medications on file (Comment: Please note this report has been produced using speech recognition software and may contain errors related to that system including errors in grammar, punctuation, and spelling, as well as words and phrases that may be inappropriate. If there are any questions or concerns please feel freeto contact the dictating provider for clarification.) Pepe Gleason II, MD (electronically signed) Emergency Medicine Provider Pepe Gleason II, MD Resident 01/22/24 [id number] * Jania Ruano MD - 01/22/2024 6:51 PM EDT Emergency Department Encounter Location: [facility] EMERGENCY DEPT Patient: Jose John : 1945 Date of evaluation: 01/22/2024 ED Provider: JANIA RUANO MD Time received sign-out: 2300 Jose John was checked out to me by outgoing provider. Please see his/her initial documentation for details of the patient's initial ED presentation, physical exam and completed studies. In brief, Jose John is a 78 y.o. male that presented to the emergency department from rehab for 3 days of chest pain and shortness of breath with effusion seen on x-ray. Patient has history of ESRD on HD Sunday. Requiring oxygen which is a new requirement for the patient. I have reviewed and interpreted all of the currently available lab results and diagnostics from this visit: Results for orders placed or performed during the hospital encounter of 01/22/24 SARS-CoV-2, Flu A/B, and RSV Combo Specimen: Nasopharynx; Swab Result Value Ref Range SARS-CoV-2 Not Detected Not Detected Respiratory Syncytial Virus Not Detected Not Detected Influenza A Not Detected Not Detected Influenza B Not Detected Not Detected CBC auto differential Result Value Ref Range Auto WBC 8.4 3.6 - 10.7 10*3/uL RBC 2.94 (L) 4.40 - 5.90 10*6/uL Hemoglobin 8.3 (L) 13.0 - 18.0 g/dL Hematocrit 27.2 (L) 40.0 - 52.0 % MCV 92.5 77.0 - 99.0 fL MCH 28.2 26.0 - 34.0 pg MCHC 30.5 30.5 - 36.0 % RDW 16.4 (H) 11.5 - 15.0 % Platelets 265 140 - 440 10*3/uL MPV 9.1 9.0 - 12.7 fL nRBC 0.0 0.0 - 2.0 /100 WBCs Neutrophils Relative 70.6 38.0 - 82.0 % Lymphocytes Relative 10.3 (L) 15.0 - 45.0 % Monocytes Relative 12.0 5.0 - 13.0 % Eosinophils Relative 5.5 0.0 - 6.0 % Basophils Relative 1.1 0.0 - 2.0 % Immature Grans % 0.5 0.0 - 2.0 % Neutrophils Absolute 5.9 1.8 - 7.5 10*3/uL Lymphocytes Absolute 0.9 (L) 1.0 - 4.3 10*3/uL Monocytes Absolute 1.0 (H) 0.0 - 0.9 10*3/uL Eosinophils Absolute 0.5 0.0 - 0.5 10*3/uL Basophils Absolute 0.1 0.0 - 0.2 10*3/uL Immature Grans Absolute 0.0 <0.1 10*3/uL Basic metabolic panel Result Value Ref Range SODIUM 133 (L) 135 - 145 mmol/L POTASSIUM 4.7 3.5 - 5.1 mmol/L CHLORIDE 96 (L) 98 - 107 mmol/L CARBON DIOXIDE 28 22 - 30 mmol/L UREA NITROGEN 29 (H) 9 - 20 mg/dL CREATININE 5.26 (H) 0.66 - 1.25 mg/dL GLUCOSE 85 70 - 100 mg/dL CALCIUM 8.7 8.4 - 10.4 mg/dL ANION GAP 9 3 - 13 mmol/L eGFR 10.6 (L) >60.0 mL/min/1.73m*2 D-dimer, quantitative Result Value Ref Range D-DIMER, INNOVANCE 2.67 (H) <0.50 mg/L Troponin, with Serial Reflex Result Value Ref Range TROPONIN I 0.023 <0.034 ng/mL Procalcitonin Test Result Value Ref Range PROCALCITONIN 0.38 (H) 0.00 - 0.09 ng/mL NT PRO BNP Result Value Ref Range NT PRO BNP 18,500 (H) <20 - 300 pg/mL Troponin I Result Value Ref Range TROPONIN I 0.023 <0.034 ng/mL ECG 12 lead Result Value Ref Range Heart Rate 71 bpm QRSD Interval 111 ms QT Interval 407 ms QTC Interval 444 ms P [place] 38 degrees QRS Ole[place] 39 degrees T Wave [place] 177 degrees OR Interval [address] chest angiogram w and/or wo IV contrast Final Result Impression:No large central PE. Effusions, infiltrates, atelectasis. Findings concerning for pneumonia. Worsening volume loss especially on the left compared to prior. Follow-up recommended.. Report Dictated on Electronically Signed By: Jorge Purdy MD Electronically Signed Date/Time: 01/23/2024 12:50 AM EDT XR chest 1 view Final Result 1. Increasing vascular congestion, left lower lung atelectasis versus infiltrates and left pleural effusion. 2. Otherwise, stable. Report Dictated on Electronically Signed By: Miguel A Victoria MD Electronically Signed Date/Time: 01/22/2024 7:56 PM EDT Final ED Course and MDM: In brief, Jose John is a 78 y.o. male whose care was signed out to me by the outgoing provider. In brief, patient seen and evaluated for chest pain and shortness of breath with new oxygen requirements currently on Ventimask at 40%, 15 L. Labs remarkable for anemia with hemoglobin 8.3 consistent with baseline, no leukocytosis, BMP with sodium of 133, creatinine of 5.26 consistent with history of ESRD. Troponin is negative. proBNP is 18,500 with no recent comparator. Dimer was elevatedas well as procalcitonin. Plan for CTA chest and admission afterwards. CTA chest per radiologist read without evidence of acute PE but concerning for effusion with loculations and possible pneumonia. Patient started on levofloxacin as he has anaphylactic allergies to penicillin. Patient be admitted as above. Discussed with hospitalist who agreed with plan for admission. All findings were discussed with patient/family at bedside, all questions were answered and all concerns addressed. Patient/family stated understanding of findings and agreement with plan for admission. Medications levoFLOXacin (Levaquin) IVPB 750 mg in 150 mL (premix) (has no administration in time range) iopamidol (Isovue-370) 76 % injection 75 mL (75 mL IntraVENous Given 01/23/24 0036) Final Impression 1. Shortness of breath 2. Pleural effusion 3. Pneumonia due to infectious organism, unspecified laterality, unspecified part of lung DISPOSITION Admit 01/23/2024 02:19:51 AM (Please note that portions of this note may have been completed with a voice recognition program. Efforts were made to edit the dictations but occasionally words are mis-transcribed.) JANIA RUANO MD (electronically signed) Emergency Medicine Provider Jania Ruano MD Resident 01/23/24 0220 documented in this [facility]06-19-2024 Emergency department Note* Len Cates RN - 01/23/2024 11:37 AM EDT Pt in bed side rails up. Family visitor updated at this time. Len Cates RN 01/23/24 1140 [id number] Emergency [facility] Note* Len Cates RN - 01/23/2024 11:16 AM EDT Family reports to RN they are taking his phone home. Pt agrees with plan per daughter. Pt phone with daughter. Len Cates RN 01/23/24 1117 [id number] Note* Individualized Overall Plan of Care Note - Anson Lorenzo DO - 01/23/2024 7:26 AM EDT Brief nephrology note Patient follows with [facility] for chronic dialysis - will transfer consult to facilitate continuity of care. Anson Lorenzo DO Nephrology [facility] ([facility]) Pager: [phone] Office Office Electronically Signed on 01/23/2024 at 7:26 AM [employer] Phone: 1(885) 489-468406-19-2024 Note* Individualized Overall Plan of Care Note - Anson Lorenzo DO - 01/23/2024 7:26 AM EDT Brief nephrology note Patient follows with [facility] for chronic dialysis - will transfer consult to facilitate continuity of care. Anson Lorenzo DO Nephrology [facility] ([facility] Pager: [phone] Office Office Electronically Signed on 01/23/2024 at 7:26 AM [employer] Phone: 1(964) 367-265406-19-2024 Emergency department Note* Donya Rodríguez RN - 01/23/2024 6:20 AM EDT Breakfast order placed for pt Donya Rodríguez RN 01/23/24 0620 [facility] [id number] Emergency department Note* Donya Rodríguez RN - 01/23/2024 5:52 AM EDT Pt placed back on venti mask after trailing NC by RT. Pt sleeps with mouth open and spo2 drops. Donya Rodríguez RN 01/23/24 0600 [facility] [id number] Emergency department Note* Donya Rodríguez RN - 01/23/2024 5:19 AM EDT Pt switched to a NC at 6L by RT. Pt pulls off mask/tubing in sleep, causing his spo2 to drop and alarms sound. Pt very upset regarding his current circumstances. Pt reports just pull the plug, I don't want to do this anymore. Pt appears overwhelmed by everything that has happened in the past few months and his chronic health conditions. Pt has been in the hospital/rehab since November. He can onlysee his on weekends. Pt very stressed about alarms. This RN and ED RT have been trying to manage pt oxygen/spo2 so it does not alarm. Dr duvall made aware of pt conversations. Donya Rodríguez RN 01/23/24 0523 [facility] [id number] Emergency department Note* Donya Rodríguez RN - 01/23/2024 3:10 AM EDT Pt moved into a hospital bed for comfort and safety. Pt educated to keep venti mask on face, pt agreeable. Pt changed into a gown. Pt reports he does not need a new brief at this time. Clean chux andpull sheet under pt Donya Rodríguez RN 01/23/24 0328 [facility] [id number] History and physical note* Jaleel Duvall MD - 01/23/2024 2:39 AM EDT Attending History and Physical Admit Date: 01/22/2024 PCP: OLENA GABRIEL CHIEF COMPLAINT: Shortness of breath Reason for Admission: Increased oxygen requirements History Obtained From: patient HISTORY OF PRESENT ILLNESS: Jose is a 78 y.o. male with past medical history below who presents with chief complaint listed above. Presented with chest pain, shortness of breath. CXR showed increased pleural effusion. Pasthistory of ESRD, on HD three times weekly. D-Dimer elevated, CTA neg for PE. Will admit for further evaluation and management. Past Medical History: No past medical history on file. Past Surgical History: No past surgical history on file. Social History: Social History Socioeconomic History Marital status: Spouse name: Not on file Number of children: Not on file Years of education: Not on file Highest education level: Not on file Occupational History Not on file Tobacco Use Smoking status: Never Smokeless tobacco: Never Substance and Sexual Activity Alcohol use: Not on file Drug use: Not on file Sexual activity: Not on file Other Topics Concern Not on file Social History Narrative Not on file Social Determinants of Health Financial Resource Strain: Low Risk (12/27/2023) [facility] Financial Resource Strain (CARDIA) Difficulty of Paying Living Expenses: Not hard at all Food Insecurity: No Food Insecurity (12/27/2023) [facility] Hunger Vital Sign Worried About Running Out of Food in the Last Year: Never true Ran Out of Food in the Last Year: Never true Transportation Needs: No Transportation Needs (12/20/2023) PRAPARE - Transportation Lack of Transportation (Medical): No Lack of Transportation (Non-Medical): No Physical Activity: Not on file Stress: No Stress Concern Present (12/26/2023) [facility] [place] [facility] - Occupational Stress Questionnaire Feeling of Stress : Not at all Social Connections: Socially Integrated (12/27/2023) [facility] Social Connection and Isolation Panel [NHANES] Frequency of Communication with Friends and Family: Three times a week Frequency of Social Gatherings with Friends and Family: Once a week Attends Temple Services: More than 4 times per year Active Member of Clubs or Organizations: Yes Attends Club or Organization Meetings: 1 to 4 times per year Marital Status: Intimate Partner Violence: Not At Risk (12/20/2023) Humiliation, Afraid, Rape, and Kick questionnaire Fear of Current or Ex-Partner: No Emotionally Abused: No Physically Abused: No Sexually Abused: No Housing Stability: Unknown (12/27/2023) [facility] Housing Stability Vital Sign Unable to Pay for Housing in the Last Year: No Number of Places Lived in the Last Year: Not on file In the last 12 months, was there a time when you did not have a steady place to sleep or slept in ashelter (including now)?: No Family History: No family history on file. Medications Prior to Admission: Current Facility-Administered Medications on File Prior to Encounter Medication Dose Route Frequency Provider Last Rate Last Admin [DISCONTINUED] GENERIC EXTERNAL MEDICATION Generic External Data Provider [DISCONTINUED] GENERIC EXTERNAL MEDICATION Generic External Data Provider [DISCONTINUED] GENERIC EXTERNAL MEDICATION Generic External Data Provider [DISCONTINUED] GENERIC EXTERNAL MEDICATION Generic External Data Provider [DISCONTINUED] GENERIC EXTERNAL MEDICATION Generic External Data Provider [DISCONTINUED] GENERIC EXTERNAL MEDICATION Generic External Data Provider [DISCONTINUED] sodium chloride 0.9 % infusion 0-400 mL Intravenous (Continuous Infusion) Daily PRN Generic External Data Provider Current Outpatient Medications on File Prior to Encounter Medication Sig Dispense Refill amiodarone (Pacerone) 200 MG tablet Take 1 tablet (200 mg) by mouth daily. 0 aspirin 81 MG chewable tablet Chew 1 tablet (81 mg) daily. 0 atorvastatin (Lipitor) 80 MG tablet Take 1 tablet (80 mg) by mouth daily. 0 gabapentin (Neurontin) 100 MG capsule Take 1 capsule (100 mg) by mouth 2 times daily. 0 insulin glargine (Lantus) 100 UNIT/ML injection Inject 7 Units under the skin Nightly. 0 ipratropium-albuterol (Duo-Neb) 0.5-2.5 mg/3 mL nebulizer solution Take 3 mL by nebulization 3 times daily as needed for wheezing or shortness of breath. 0 omeprazole OTC (PriLOSEC OTC) 20 MG EC tablet Take 20 mg by mouth in the morning and 20 mg in the evening. Take before meals. Do not crush, chew, or split.. sertraline (Zoloft) 50 MG tablet Take 1 tablet (50 mg) by mouth daily. 0 tamsulosin (Flomax) 0.4 MG 24 hr capsule Take 0.4 mg by mouth daily. Allergies: Allergies Allergen Reactions Lisinopril Wheezing Penicillins Anaphylaxis Sulfa Antibiotics Anaphylaxis Levofloxacin Nausea Only REVIEW OF SYSTEMS: Constitutional: Negative for fever, chills, activity change and unexpected weight change. HEENT: Negative for congestion, postnasal drip and sneezing. Eyes: Negative for itching and visual disturbance. Respiratory: Negative for apnea, cough, choking, chest tightness, shortness of breath, wheezing andstridor. Cardiovascular: Negative for chest pain. Gastrointestinal: Negative for nausea, vomiting, abdominal pain, diarrhea and blood in stool. Genitourinary: Negative for dysuria, frequency and flank pain. Musculoskeletal: Negative for myalgias and joint swelling. Skin: Negative for rash. Neurological: Negative for dizziness, tremors, seizures, syncope, facial asymmetry, speech difficulty, weakness, numbness and headaches. Hematological: Negative for adenopathy. Psychiatric/Behavioral: Negative for suicidal ideas, behavioral problems, self- injury and dysphoricmood. Vitals: BP 116/51 Pulse 78 Temp 36.6 C (97.8 F) (Oral) Resp 23 Ht 5' 10 (1.778 m) Wt 125 lb (56.7 kg) SpO2 96% BMI 17.94 kg/m BMI Classification: Underweight (BMI <18.5) Pulse Ox: SpO2 Av.6 % Min: 88 % Max: 100 % Supplemental O2: O2 Flow Rate (L/min): 12 L/min PHYSICAL EXAM: Physical Exam Head was normal maxillary sinuses and periorbital sinuses appear to be clear. There is no submandibular paracervical or supraclavicular lymphadenopathies palpated. Lungs reveal diminished breath sounds bilaterally otherwise clear there were no wheezes or rhonchi,there were no rales noted. Heart regular and reapid, S1/S2, systolic murmur at the base. S4 noted. Abdomen soft non tender, no sub xiphoid,mid epigastric, or RUQ tenderness to palpation. Range of motion of all extremities, symmetrical no lateralizing signs noted, global weakness noted,no edema cyanosis or clubbing noted. Peripheral pulses diminished in both LE noted. DATA: CBC: Recent Labs 01/22/241917 WBC 8.4 RBC 2.94* HGB 8.3* HCT 27.2* MCV 92.5 RDW 16.4* PLT 265 BMP: Recent Labs 01/22/241917 NA 133* K 4.7 CL 96* CO2 28 BUN 29* CREATININE 5.26* GLUCOSE 85 CALCIUM 8.7 ANIONGAP 9 LIVER PROFILE:No results for input(s): AST, ALT, BILITOT, ALKPHOS, PROT in the last 72 hours. No lab exists for component: LABALBU PT/INR: No results for input(s): PROTIME, INR in the last 72 hours. CARDIAC ENZYMES: Recent Labs 01/22/24191701/22/243 TROPONINI 0.023 0.023 Procalcitonin: Lab Results Component Value Date PROCAL 0.38 (H) 01/22/2024 Urine Culture: No results found for this or any previous visit. COVID-19 PCR: No results for input(s): COVID19 in the last 72 hours. I reviewed: [x] laboratory results [x] radiographic results At the time of today's encounter. Pt was advised of the results. Data: (CAT1) Reviewed 3 or more notes from different specialty or health system (each=1). (LOW: 2x CAT1 or independent historian MOD: 3x CAT1 or 1x CAT3 EXTENSIVE: 3x CAT1 and 1x CAT3) Assessment Discussed management with the ED provider and agree with hospitalization. Acute, acute on chronic, unstable/uncontrolled chronic problems/diagnoses: Acute hypoxic respiratory failure with shortness of breath ESRD Stable chronic problems affecting care, new non-acute diagnoses: Acute hypoxic respiratory failure, with pleural effusion. ESRD Plan As a result of the above findings & factors, the following mgmt was pursued: - Levofloxicin IV after each HD TREATMENT - am labs, replace lytes prn - PT/OT/CM/SW - delirium precautions: increase activity - DVT prophylaxis: enoxaparin and encourage ambulation Complexity: Acute illness or injury posing a threat to life or body function (HIGH). Risk: Use/consideration of a high risk treatment or study: IV controlled substances (HIGH). Advance Directive: Prior Anticipated Discharge - Date - 01/26/2024 - Location - Home - Pending the following - TREATMENTS Total time spent (which include face to face and non face to face encounters) : 30 minutes. Extended Emergency Contact Information Primary Emergency Contact: John LatoyaURSZULALeela CastañedaDeepti Mobile Relation: Spouse Secondary Emergency Contact: AlekJuan Manuel Mobile Relation: Son Preferred language: Romanian Pressing Machine Operator needed? No Jaleel Duvall MD Division of Hospitalist Medicine Inpatient Medical Services/[facility] [employer] Phone: 1(509) 798-956406-19-2024 History and physical note* Jaleel Duvall MD - 01/23/2024 2:39 AM EDT Attending History and Physical Admit Date: 01/22/2024 PCP: OLENA GABRIEL CHIEF COMPLAINT: Shortness of breath Reason for Admission: Increased oxygen requirements History Obtained From: patient HISTORY OF PRESENT ILLNESS: Jose is a 78 y.o. male with past medical history below who presents with chief complaint listed above. Presented with chest pain, shortness of breath. CXR showed increased pleural effusion. Pasthistory of ESRD, on HD three times weekly. D-Dimer elevated, CTA neg for PE. Will admit for further evaluation and management. Past Medical History: No past medical history on file. Past Surgical History: No past surgical history on file. Social History: Social History Socioeconomic History Marital status: Spouse name: Not on file Number of children: Not on file Years of education: Not on file Highest education level: Not on file Occupational History Not on file Tobacco Use Smoking status: Never Smokeless tobacco: Never Substance and Sexual Activity Alcohol use: Not on file Drug use: Not on file Sexual activity: Not on file Other Topics Concern Not on file Social History Narrative Not on file Social Determinants of Health Financial Resource Strain: Low Risk (12/27/2023) [facility]ceived from [facility] Overall Financial Resource Strain (CARDIA) Difficulty of Paying Living Expenses: Not hard at all Food Insecurity: No Food Insecurity (12/27/2023) Received from [facility], [facility] Hunger Vital Sign Worried About Running Out of Food in the Last Year: Never true Ran Out of Food in the Last Year: Never true Transportation Needs: No Transportation Needs (12/20/2023) PRAPARE - Transportation Lack of Transportation (Medical): No Lack of Transportation (Non-Medical): No Physical Activity: Not on file Stress: No Stress Concern Present (12/26/2023) Received from [facility], [facility] [place] [facility] Occupational Health - Occupational Stress Questionnaire Feeling of Stress : Not at all Social Connections: Socially Integrated (12/27/2023) Received from [facility], [facility] Social Connection and Isolation Panel [NHANES] Frequency of Communication with Friends and Family: Three times a week Frequency of Social Gatherings with Friends and Family: Once a week Attends Temple Services: More than 4 times per year Active Member of Clubs or Organizations: Yes Attends Club or Organization Meetings: 1 to 4 times per year Marital Status: Intimate Partner Violence: Not At Risk (12/20/2023) Humiliation, Afraid, Rape, and Kick questionnaire Fear of Current or Ex-Partner: No Emotionally Abused: No Physically Abused: No Sexually Abused: No Housing Stability: Unknown (12/27/2023) [facility] Housing Stability Vital Sign Unable to Pay for Housing in the Last Year: No Number of Places Lived in the Last Year: Not on file In the last 12 months, was there a time when you did not have a steady place to sleep or slept [place] ([place] now)?: No Family History: No family history on file. Medications Prior to Admission: Current Facility-Administered Medications on File Prior to Encounter Medication Dose Route Frequency Provider Last Rate Last Admin [DISCONTINUED] GENERIC EXTERNAL MEDICATION Generic External Data Provider [DISCONTINUED] GENERIC EXTERNAL MEDICATION Generic External Data Provider [DISCONTINUED] GENERIC EXTERNAL MEDICATION Generic External Data Provider [DISCONTINUED] GENERIC EXTERNAL MEDICATION Generic External Data Provider [DISCONTINUED] GENERIC EXTERNAL MEDICATION Generic External Data Provider [DISCONTINUED] GENERIC EXTERNAL MEDICATION Generic External Data Provider [DISCONTINUED] sodium chloride 0.9 % infusion 0-400 mL Intravenous (Continuous Infusion) Daily PRN Generic External Data Provider Current Outpatient Medications on File Prior to Encounter Medication Sig Dispense Refill amiodarone (Pacerone) 200 MG tablet Take 1 tablet (200 mg) by mouth daily. 0 aspirin 81 MG chewable tablet Chew 1 tablet (81 mg) daily. 0 atorvastatin (Lipitor) 80 MG tablet Take 1 tablet (80 mg) by mouth daily. 0 gabapentin (Neurontin) 100 MG capsule Take 1 capsule (100 mg) by mouth 2 times daily. 0 insulin glargine (Lantus) 100 UNIT/ML injection Inject 7 Units under the skin Nightly. 0 ipratropium-albuterol (Duo-Neb) 0.5-2.5 mg/3 mL nebulizer solution Take 3 mL by nebulization 3 times daily as needed for wheezing or shortness of breath. 0 omeprazole OTC (PriLOSEC OTC) 20 MG EC tablet Take 20 mg by mouth in the morning and 20 mg in the evening. Take before meals. Do not crush, chew, or split.. sertraline (Zoloft) 50 MG tablet Take 1 tablet (50 mg) by mouth daily. 0 tamsulosin (Flomax) 0.4 MG 24 hr capsule Take 0.4 mg by mouth daily. Allergies: Allergies Allergen Reactions Lisinopril Wheezing Penicillins Anaphylaxis Sulfa Antibiotics Anaphylaxis Levofloxacin Nausea Only REVIEW OF SYSTEMS: Constitutional: Negative for fever, chills, activity change and unexpected weight change. HEENT: Negative for congestion, postnasal drip and sneezing. Eyes: Negative for itching and visual disturbance. Respiratory: Negative for apnea, cough, choking, chest tightness, shortness of breath, wheezing andstridor. Cardiovascular: Negative for chest pain. Gastrointestinal: Negative for nausea, vomiting, abdominal pain, diarrhea and blood in stool. Genitourinary: Negative for dysuria, frequency and flank pain. Musculoskeletal: Negative for myalgias and joint swelling. Skin: Negative for rash. Neurological: Negative for dizziness, tremors, seizures, syncope, facial asymmetry, speech difficulty, weakness, numbness and headaches. Hematological: Negative for adenopathy. Psychiatric/Behavioral: Negative for suicidal ideas, behavioral problems, self- injury and dysphoricmood. Vitals: BP 116/51 Pulse 78 Temp 36.6 C (97.8 F) (Oral) Resp 23 Ht 5' 10 (1.778 m) Wt 125 lb (56.7 kg) SpO2 96% BMI 17.94 kg/m BMI Classification: Underweight (BMI <18.5) Pulse Ox: SpO2 Av.6 % Min: 88 % Max: 100 % Supplemental O2: O2 Flow Rate (L/min): 12 L/min PHYSICAL EXAM: Physical Exam Head was normal maxillary sinuses and periorbital sinuses appear to be clear. There is no submandibular paracervical or supraclavicular lymphadenopathies palpated. Lungs reveal diminished breath sounds bilaterally otherwise clear there were no wheezes or rhonchi,there were no rales noted. Heart regular and reapid, S1/S2, systolic murmur at the base. S4 noted. Abdomen soft non tender, no sub xiphoid,mid epigastric, or RUQ tenderness to palpation. Range of motion of all extremities, symmetrical no lateralizing signs noted, global weakness noted,no edema cyanosis or clubbing noted. Peripheral pulses diminished in both LE noted. DATA: CBC: Recent Labs 01/22/241917 WBC 8.4 RBC 2.94* HGB 8.3* HCT 27.2* MCV 92.5 RDW 16.4* PLT 265 BMP: Recent Labs 01/22/241917 NA 133* K 4.7 CL 96* CO2 28 BUN 29* CREATININE 5.26* GLUCOSE 85 CALCIUM 8.7 ANIONGAP 9 LIVER PROFILE:No results for input(s): AST, ALT, BILITOT, ALKPHOS, PROT in the last 72 hours. No lab exists for component: LABALBU PT/INR: No results for input(s): PROTIME, INR in the last 72 hours. CARDIAC ENZYMES: Recent Labs 01/22/24 1918 01/22/24 2353 TROPONINI 0.023 0.023 Procalcitonin: Lab Results Component Value Date PROCAL 0.38 (H) 01/22/2024 Urine Culture: No results found for this or any previous visit. COVID-19 PCR: No results for input(s): COVID19 in the last 72 hours. I reviewed: [x] laboratory results [x] radiographic results At the time of today's encounter. Pt was advised of the results. Data: (CAT1) Reviewed 3 or more notes from different specialty or health system (each=1). (LOW: 2x CAT1 or independent historian MOD: 3x CAT1 or 1x CAT3 EXTENSIVE: 3x CAT1 and 1x CAT3) Assessment Discussed management with the ED provider and agree with hospitalization. Acute, acute on chronic, unstable/uncontrolled chronic problems/diagnoses: Acute hypoxic respiratory failure with shortness of breath ESRD Stable chronic problems affecting care, new non-acute diagnoses: Acute hypoxic respiratory failure, with pleural effusion. ESRD Plan As a result of the above findings & factors, the following mgmt was pursued: - Levofloxicin IV after each HD TREATMENT - am labs, replace lytes prn - PT/OT/CM/SW - delirium precautions: increase activity - DVT prophylaxis: enoxaparin and encourage ambulation Complexity: Acute illness or injury posing a threat to life or body function (HIGH). Risk: Use/consideration of a high risk treatment or study: IV controlled substances (HIGH). Advance Directive: Prior Anticipated Discharge - Date - 01/26/2024 - Location - Home - Pending the following - TREATMENTS Total time spent (which include face to face and non face to face encounters) : 30 minutes. 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 No Jaleel Duvall MD Division of Hospitalist Medicine Inpatient Medical Services/[facility] documented in this [facility]06-18-2024 Emergency department Note* Donya Rodríguez RN - 01/22/2024 11:40 PM EDT Pt given hot TV dinner. Pt educated meal was hot. Pt assisted in cutting up food. Donya Rodríguez RN 01/22/24 2340 [id number] Emergency [facility] Note* Donya Rodríguez RN - 01/22/2024 10:46 PM EDT Pt given jello, andorran ice, ana crackers and diet coke. Pt ok to eat per dr lois Rodríguez RN 01/22/24 9132 [facility] [id number] Emergency department Note* Donya Rodríguez RN - 01/22/2024 9:00 PM EDT Pt spo2 alarm going off. At bedside to assess pt. Pt spo2 88% with good wave form, pt alert, talking to this RN. Pt reports when he falls asleep it starts to alarm. Spoke to ED providers, will try venti mask at this time. Spoke to RT to discuss where to start pt, RT recommended starting pt at 50% fio2. Pt educated on changing O2 devices, in agreement with plan. Pt changed to venti mask without issue. Donya Rodríguez RN 01/22/24 1585 [id number] Emergency department Note* Ludmila Shaw RN - 01/22/2024 7:58 PM EDT Report to zarina Shaw RN 01/22/241958 [facility] [id number] Physician Emergency department Note* Amanda Wild DO - 01/22/2024 6:51 PM EDT Emergency Department Encounter [facility] Patient: Jose John : 1945 Date of Evaluation: 01/22/2024 ED Supervising Physician: Amanda Wild DO I personally evaluated Jose John and made/approved the management plan and take responsibility for the patient management. This will serve as my Supervisory note and shared attestation. I did perform a substantive portion of the visit including all aspects of the Medical Decision Making. I wore appropriate PPE for the entirety of this encounter. In brief, Jose John is a 78 y.o. medical history of recent CABG 11/21/23, CKD 4 on hemodialysis Sunday still makes urine, ischemic cardiomyopathy, DM, chronic hypoxic respiratory failure on 2 L baseline that presents to the emergency department with increasing shortness of breath/oxygen requirement over the last 3 days with intermittent left-sided chest pressure. Now requiring 3 L. Noted to have new left-sided pleural effusion on chest x-ray at rehab facility. Reportsintermittent nonradiating left-sided chest pressure lasting for 5 minutes at a time with no provoking features. No associated diaphoresis, lightheadedness, nausea/vomiting, lower extremity swelling, calf pain. Focused exam: BP 121/73 Pulse 75 Temp 36.6 C (97.8 F) (Oral) Resp 18 Ht 1.778 m (5' 10) Wt 56.7 kg (125 lb) SpO2 100% BMI 17.94 kg/m Constitutional: Alert, awake Lungs: Saturating well on 3 L nasal cannula, diminished air movement appreciated on the left, conversational Heart: RRR , no murmurs, equal distal pulses to extremities, no peripheral edema/erythema/warmth ofLEs b/l. Vascular: radial 2/4 equal B/L, dp 2/4 equal B/L Brief ED course/MDM: 78 y.o. medical history of recent CABG 11/21/23, CKD 4 on hemodialysis Sunday stillmakes urine, ischemic cardiomyopathy, DM, chronic hypoxic respiratory failure on 2 L baseline that presents to the emergency department with increasing shortness of breath/oxygen requirement over thelast 3 days with intermittent left-sided chest pressure. Now requiring 3 L. Noted to have new left-sided pleural effusion on chest x-ray at rehab facility. Reports intermittent nonradiating left-sided chest pressure lasting for 5 minutes at a time with no provoking features. No associated diaphoresis, lightheadedness, nausea/vomiting, lower extremity swelling, calf pain. Considered pleural effusion from CHF, pneumonia, viral process, PE Vital signs stable on 3 L nasal cannula. Not tachycardic. Labs without leukocytosis. Baseline renalfunction. Troponin negative. BNP elevated but no prior available for comparison. D-dimer elevated. Procalcitonin elevated. Chest x-ray with increased vascular congestion and left pleural effusion. Plan to admit to floor once CT PE obtained to rule out pulmonary embolism. ED Medications managed: Medications - No data to display Diagnostics interpreted by me: Xray(s) CT scan(s) EKG; see my interpretation elsewhere in the chart All diagnostic, treatment, and disposition decisions were made by myself in conjunction with the Resident. I also supervised alexandre portions of any procedures performed by the Resident. For all further details of the patient's emergency department visit, please see their documentation. (Comment: Please note this report has been produced using speech recognition software and may contain errors related to that system including errors in grammar, punctuation, and spelling, as well as words and phrases that may be inappropriate. If there are any questions or concerns please feel freeto contact the dictating provider for clarification.) Amanda Wild DO [employer] [facility] Amanda Wild DO 01/22/24 8777 [id number] Physician Emergency department Note* Pepe Gleason II, MD - 01/22/2024 6:51 PM EDT EMERGENCY DEPARTMENT ENCOUNTER Pt Name: Jose John Birthdate 1945 Date of evaluation: 01/22/2024 ED Provider: Pepe Gleason II, MD CHIEF COMPLAINT Chief Complaint Patient presents with Shortness of Breath Pt sent in from [facility] for pleural effusion. Pt states he has 3/10 left side chest pain . Hx ofCABG in November of this year. . HISTORY OF PRESENT ILLNESS (Location/Symptom, Timing/Onset, Context/Setting, Quality, Duration, Modifying Factors, Severity) Note limiting factors. I wore appropriate PPE for the entirety of this encounter. HPI Jose John is a 78 y.o. who presents to the emergency department with concerns for chest pain and respiratory distress. Patient is staying at [facility], and he states that he has been having chest pain that is intermittent and pleuritic, as well as shortness of breath for the past approximately 3 days. He states that he was recently started on supplemental oxygen, for which she is now on 3 L. Patient receives dialysis every Sunday and lastgot this yesterday. Patient is denying any diaphoresis, nausea or vomiting, abdominal pain, or other symptoms. Nursing Notes were reviewed. Limitations to history: Outside historians: REVIEW OF SYSTEMS Review of Systems Pertinent positives and negatives as per HPI. PAST MEDICAL HISTORY No past medical history on file. SURGICAL HISTORY No past surgical history on file. CURRENT MEDICATIONS Previous Medications AMIODARONE (PACERONE) 200 MG TABLET Take 1 tablet (200 mg) by mouth daily. ASPIRIN 81 MG CHEWABLE TABLET Chew 1 tablet (81 mg) daily. ATORVASTATIN (LIPITOR) 80 MG TABLET Take 1 tablet (80 mg) by mouth daily. GABAPENTIN (NEURONTIN) 100 MG CAPSULE Take 1 capsule (100 mg) by mouth 2 times daily. INSULIN GLARGINE (LANTUS) 100 UNIT/ML INJECTION Inject 7 Units under the skin Nightly. IPRATROPIUM-ALBUTEROL (DUO-NEB) 0.5-2.5 MG/3 ML NEBULIZER SOLUTION Take 3 mL by nebulization 3 times daily as needed for wheezing or shortness of breath. OMEPRAZOLE OTC (PRILOSEC OTC) 20 MG EC TABLET Take 20 mg by mouth in the morning and 20 mg in the evening. Take before meals. Do not crush, chew, or split.. SERTRALINE (ZOLOFT) 50 MG TABLET Take 1 tablet (50 mg) by mouth daily. TAMSULOSIN (FLOMAX) 0.4 MG 24 HR CAPSULE Take 0.4 mg by mouth daily. ALLERGIES Lisinopril, Penicillins, Sulfa antibiotics, and Levofloxacin FAMILY HISTORY No family history on file. SOCIAL HISTORY Social History Socioeconomic History Marital status: Tobacco Use Smoking status: Never Smokeless tobacco: Never Social Determinants of Health Financial Resource Strain: Low Risk (12/27/2023) [facility] from [facility] Overall Financial Resource Strain (CARDIA) Difficulty of Paying Living Expenses: Not hard at all Food Insecurity: No Food Insecurity (12/27/2023) [facility] Hunger Vital Sign Worried About Running Out of Food in the Last Year: Never true Ran Out of Food in the Last Year: Never true Transportation Needs: No Transportation Needs (12/20/2023) PRAPARE - Transportation Lack of Transportation (Medical): No Lack of Transportation (Non-Medical): No Stress: No Stress Concern Present (12/26/2023) Received from [facility] [place] [facility] [employer] [facility] - Occupational Stress Questionnaire Feeling of Stress : Not at all Social Connections: Socially Integrated (12/27/2023) Received from [facility], [facility] Social Connection and Isolation Panel [NHANES] Frequency of Communication with Friends and Family: Three times a week Frequency of Social Gatherings with Friends and Family: Once a week Attends Temple Services: More than 4 times per year Active Member of Clubs or Organizations: Yes Attends Club or Organization Meetings: 1 to 4 times per year Marital Status: Intimate Partner Violence: Not At Risk (12/20/2023) Humiliation, Afraid, Rape, and Kick questionnaire Fear of Current or Ex-Partner: No Emotionally Abused: No Physically Abused: No Sexually Abused: No Housing Stability: Unknown (12/27/2023) [facility] Housing Stability Vital Sign Unable to Pay for Housing in the Last Year: No In the last 12 months, was there a time when you did not have a steady place to sleep or slept in ashelter (including now)?: No SCREENINGS PHYSICAL EXAM ED Triage Vitals Temp Heart Rate Resp BP 01/22/24 1856 01/22/24 1856 01/22/24 18501/22/241855 36.6 C (97.8 F) 72 16 107/55 SpO2 Temp Source Heart Rate Source Patient Position 01/22/24 1856 01/22/24 1856 01/22/24 2200 -- (!) 88 % Oral Monitor BP Location FiO2 (%) -- 01/22/24 2106 50 % Physical Exam Vitals and nursing note reviewed. Constitutional: General: He is not in acute distress. Appearance: He is well-developed. HENT: Head: Normocephalic and atraumatic. Eyes: Conjunctiva/sclera: Conjunctivae normal. Cardiovascular: Rate and Rhythm: Normal rate and regular rhythm. Heart sounds: No murmur heard. Pulmonary: Effort: Pulmonary effort is normal. No respiratory distress. Breath sounds: Normal breath sounds. Abdominal: Palpations: Abdomen is soft. Tenderness: There is no abdominal tenderness. Musculoskeletal: General: No swelling. Cervical back: Neck supple. Skin: General: Skin is warm and dry. Capillary Refill: Capillary refill takes less than 2 seconds. Neurological: Mental Status: He is alert. Psychiatric: Mood and Affect: Mood normal. DIAGNOSTIC RESULTS RADIOLOGY (Per Emergency Physician): Interpretation per the Radiologist below, if available at the time of this note: XR chest 1 view Final Result 1. Increasing vascular congestion, left lower lung atelectasis versus infiltrates and left pleural effusion. 2. Otherwise, stable. Report Dictated on Electronically Signed By: Miguel A Victoria MD Electronically Signed Date/Time: 01/22/2024 7:[address] chest angiogram w and/or wo IV contrast (Results Pending) LABS: Labs Reviewed CBC WITH AUTO DIFFERENTIAL - Abnormal Result Value Auto WBC 8.4 RBC 2.94 (*) Hemoglobin 8.3 (*) Hematocrit 27.2 (*) MCV 92.5 MCH 28.2 MCHC 30.5 RDW 16.4 (*) Platelets 265 MPV 9.1 nRBC 0.0 Neutrophils Relative 70.6 Lymphocytes Relative 10.3 (*) Monocytes Relative 12.0 Eosinophils Relative 5.5 Basophils Relative 1.1 Immature Grans % 0.5 Neutrophils Absolute 5.9 Lymphocytes Absolute 0.9 (*) Monocytes Absolute 1.0 (*) Eosinophils Absolute 0.5 Basophils Absolute 0.1 Immature Grans Absolute 0.0 BASIC METABOLIC PANEL - Abnormal SODIUM 133 (*) POTASSIUM 4.7 CHLORIDE 96 (*) CARBON DIOXIDE 28 UREA NITROGEN 29 (*) CREATININE 5.26 (*) GLUCOSE 85 CALCIUM 8.7 ANION GAP 9 eGFR 10.6 (*) D-DIMER,QUANTITATIVE - Abnormal D-DIMER, INNOVANCE 2.67 (*) Narrative: [employer] D-Dimer values of <0.50 mg/L FEU can be used in combination with a pre-test probability model (e.g. Well's) to exclude pulmonary embolism (PE) disease, as well as an aid in the diagnosisof deep vein thrombosis (DVT). PROCALCITONIN TEST - Abnormal PROCALCITONIN 0.38 (*) Narrative: PCT <0.50 = Low risk of severe sepsis and/or septic shock. PCT >2.00 = High risk of severe sepsis and/or septic shock. NT PRO BNP - Abnormal NT PRO BNP 18,500 (*) SARS-COV-2, FLU A/B, AND RSV COMBO - Normal SARS-CoV-2 Not Detected Respiratory Syncytial Virus Not Detected Influenza A Not Detected Influenza B Not Detected Narrative: Methodology: real-time, RT-PCR TROPONIN, WITH SERIAL REFLEX - Normal TROPONIN I 0.023 Narrative: Patients with high levels of Biotin oral intake (ie >5 mg/day) may have falsely decreased Troponin levels. TROPONIN I TROPONIN I All other labs were within normal range or not returned as of this dictation. EMERGENCY DEPARTMENT COURSE and DIFFERENTIAL DIAGNOSIS/MDM: Vitals: Vitals: 01/22/24 2057 01/22/24 2106 01/22/24 2200 01/22/24 2228 BP: 121/73 Pulse: 74 75 Resp: 20 18 Temp: TempSrc: SpO2: (!) 91% 100% 100% 100% Weight: Height: 78-year-old male presenting to the emergency department with concerns for chest pain and respiratory distress. Chest x-ray visualized bilateral pleural effusions, the patient does have an elevated BNP to over 18,000. Patient has elevated D-dimer, and so CT angiography was obtained to exclude PE, given high risk profile and clinical symptoms. CT angiography of the chest was pending at the completion of my shift. BMP, CBC, and respiratory panel were unremarkable, save for findings consistent withESRD. Patient was requiring approximately 8 L of supplemental oxygen by Venturi mask. Patient was endorsed to oncoming provider at the completion of my shift with final disposition pending. Anticipate hospital admission pending results of CT angiography of the chest. Diagnoses as of 01/23/24 0219 Shortness of breath Pleural effusion Pneumonia due to infectious organism, unspecified laterality, unspecified part of lung External records reviewed: Diagnostics interpreted by me: Discussions with other clinicians: Chronic conditions impacting care: Social determinants of health affecting care: ED Medications managed: Medications - No data to display Prescription drugs considered: PROCEDURES: Unless otherwise noted below, none Procedures FINAL IMPRESSION No diagnosis found. DISPOSITION PATIENT REFERRED TO: No follow-up provider specified. DISCHARGE MEDICATIONS: New Prescriptions No medications on file (Comment: Please note this report has been produced using speech recognition software and may contain errors related to that system including errors in grammar, punctuation, and spelling, as well as words and phrases that may be inappropriate. If there are any questions or concerns please feel freeto contact the dictating provider for clarification.) Pepe Gleason II, MD (electronically signed) Emergency Medicine Provider Pepe Gleason II, MD Resident 01/22/24 [address] [employer] Phone: [phone] [phone] Physician Emergency department Note* Jania Ruano MD - 01/22/2024 6:51 PM EDT Emergency Department Encounter Location: [facility] EMERGENCY DEPT Patient: Jose John : 1945 Date of evaluation: 01/22/2024 ED Provider: JANIA RUANO MD Time received sign-out: 2300 Jose John was checked out to me by outgoing provider. Please see his/her initial documentation for details of the patient's initial ED presentation, physical exam and completed studies. In brief, Jose John is a 78 y.o. male that presented to the emergency department from rehab for 3 days of chest pain and shortness of breath with effusion seen on x-ray. Patient has history of ESRD on HD Sunday. Requiring oxygen which is a new requirement for the patient. I have reviewed and interpreted all of the currently available lab results and diagnostics from this visit: Results for orders placed or performed during the hospital encounter of 01/22/24 SARS-CoV-2, Flu A/B, and RSV Combo Specimen: Nasopharynx; Swab Result Value Ref Range SARS-CoV-2 Not Detected Not Detected Respiratory Syncytial Virus Not Detected Not Detected Influenza A Not Detected Not Detected Influenza B Not Detected Not Detected CBC auto differential Result Value Ref Range Auto WBC 8.4 3.6 - 10.7 10*3/uL RBC 2.94 (L) 4.40 - 5.90 10*6/uL Hemoglobin 8.3 (L) 13.0 - 18.0 g/dL Hematocrit 27.2 (L) 40.0 - 52.0 % MCV 92.5 77.0 - 99.0 fL MCH 28.2 26.0 - 34.0 pg MCHC 30.5 30.5 - 36.0 % RDW 16.4 (H) 11.5 - 15.0 % Platelets 265 140 - 440 10*3/uL MPV 9.1 9.0 - 12.7 fL nRBC 0.0 0.0 - 2.0 /100 WBCs Neutrophils Relative 70.6 38.0 - 82.0 % Lymphocytes Relative 10.3 (L) 15.0 - 45.0 % Monocytes Relative 12.0 5.0 - 13.0 % Eosinophils Relative 5.5 0.0 - 6.0 % Basophils Relative 1.1 0.0 - 2.0 % Immature Grans % 0.5 0.0 - 2.0 % Neutrophils Absolute 5.9 1.8 - 7.5 10*3/uL Lymphocytes Absolute 0.9 (L) 1.0 - 4.3 10*3/uL Monocytes Absolute 1.0 (H) 0.0 - 0.9 10*3/uL Eosinophils Absolute 0.5 0.0 - 0.5 10*3/uL Basophils Absolute 0.1 0.0 - 0.2 10*3/uL Immature Grans Absolute 0.0 <0.1 10*3/uL Basic metabolic panel Result Value Ref Range SODIUM 133 (L) 135 - 145 mmol/L POTASSIUM 4.7 3.5 - 5.1 mmol/L CHLORIDE 96 (L) 98 - 107 mmol/L CARBON DIOXIDE 28 22 - 30 mmol/L UREA NITROGEN 29 (H) 9 - 20 mg/dL CREATININE 5.26 (H) 0.66 - 1.25 mg/dL GLUCOSE 85 70 - 100 mg/dL CALCIUM 8.7 8.4 - 10.4 mg/dL ANION GAP 9 3 - 13 mmol/L eGFR 10.6 (L) >60.0 mL/min/1.73m*2 D-dimer, quantitative Result Value Ref Range D-DIMER, INNOVANCE 2.67 (H) <0.50 mg/L Troponin, with Serial Reflex Result Value Ref Range TROPONIN I 0.023 <0.034 ng/mL Procalcitonin Test Result Value Ref Range PROCALCITONIN 0.38 (H) 0.00 - 0.09 ng/mL NT PRO BNP Result Value Ref Range NT PRO BNP 18,500 (H) <20 - 300 pg/mL Troponin I Result Value Ref Range TROPONIN I 0.023 <0.034 ng/mL ECG 12 lead Result Value Ref Range Heart Rate 71 bpm QRSD Interval 111 ms QT Interval 407 ms QTC Interval 444 ms P Olean 38 degrees QRS Olean 39 degrees T Wave Olean 177 degrees OR Interval [address] chest angiogram w and/or wo IV contrast Final Result Impression:No large central PE. Effusions, infiltrates, atelectasis. Findings concerning for pneumonia. Worsening volume loss especially on the left compared to prior. Follow-up recommended.. Report Dictated on Electronically Signed By: Jorge Purdy MD Electronically Signed Date/Time: 01/23/2024 12:50 AM EDT XR chest 1 view Final Result 1. Increasing vascular congestion, left lower lung atelectasis versus infiltrates and left pleural effusion. 2. Otherwise, stable. Report Dictated on Electronically Signed By: Miguel A Victoria MD Electronically Signed Date/Time: 01/22/2024 7:56 PM EDT Final ED Course and MDM: In brief, Jose John is a 78 y.o. male whose care was signed out to me by the outgoing provider. In brief, patient seen and evaluated for chest pain and shortness of breath with new oxygen requirements currently on Ventimask at 40%, 15 L. Labs remarkable for anemia with hemoglobin 8.3 consistent with baseline, no leukocytosis, BMP with sodium of 133, creatinine of 5.26 consistent with history of ESRD. Troponin is negative. proBNP is 18,500 with no recent comparator. Dimer was elevatedas well as procalcitonin. Plan for CTA chest and admission afterwards. CTA chest per radiologist read without evidence of acute PE but concerning for effusion with loculations and possible pneumonia. Patient started on levofloxacin as he has anaphylactic allergies to penicillin. Patient be admitted as above. Discussed with hospitalist who agreed with plan for admission. All findings were discussed with patient/family at bedside, all questions were answered and all concerns addressed. Patient/family stated understanding of findings and agreement with plan for admission. Medications levoFLOXacin (Levaquin) IVPB 750 mg in 150 mL (premix) (has no administration in time range) iopamidol (Isovue-370) 76 % injection 75 mL (75 mL IntraVENous Given 01/23/24 0036) Final Impression 1. Shortness of breath 2. Pleural effusion 3. Pneumonia due to infectious organism, unspecified laterality, unspecified part of lung DISPOSITION Admit 01/23/2024 02:19:51 AM (Please note that portions of this note may have been completed with a voice recognition program. Efforts were made to edit the dictations but occasionally words are mis-transcribed.) JANIA RUANO MD (electronically signed) Emergency Medicine Provider Jania Ruano MD Resident 01/23/24 0220 [id number] Note* Care Coordination - Chayo Holden RN - 01/22/2024 3:04 PM EDT Returned phone call to Natacha Waller. Spoke with Nursing Software Development Coordinator, Andree. Need to schedule left sided thora. She will call to schedule tomorrow am after order has been faxed along with other pertinent patient information. [id number] Miscellaneous Notes* Care Coordination - Chayo Holden RN - 01/22/2024 3:04 PM EDT Returned phone call to Natacha Waller. Spoke with Nursing Software Development CoordinatorAndree. Need to schedule left sided thora. She will call to schedule tomorrow am after order has been faxed along with other pertinent patient information. documented in this [facility]06-17-2024 Telephone encounter Note* Telephone Encounter - Makenzie Lombardi - 01/21/2024 4:56 PM EDT Name of caller: Juan Manuel Contact phone number: [phone] Relationship to Patient: son Provider: Maryanne Practice: [facility] Chief Complaint/Reason for Call: patients son is calling in stating that they believe the patient can cancel their upcoming appointment that is on Sunday they would like a callback to make sure that it is okay they will wait to hear back from the office, please advise and thank you Best time of day caller can be reached: any Patient advised that office/PCP has 24-48 business hours to return their call: Yes [id number] Miscellaneous Notes* Telephone Encounter - Makenzie Lombardi - 01/21/2024 4:56 PM EDT Name of caller: Juan Manuel Contact phone number: [phone] Relationship to Patient: son Provider: Maryanne Practice: [facility] Chief Complaint/Reason for Call: patients son is calling in stating that they believe the patient can cancel their upcoming appointment that is on Sunday they would like a callback to make sure that it is okay they will wait to hear back from the office, please advise and thank you Best time of day caller can be reached: any Patient advised that office/PCP has 24-48 business hours to return their call: Yes documented in this [facility]05-25-2024 History of Present illness Narrative* Ronald Middleton MD - 12/29/2023 10:35 AM EDT Consult Sunday [facility]* Diagnosis Onset Date Resolution Status Diabetes type 2, uncontrolled acute 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 [facility] Work Phone: Evaluation note* Diagnosis Onset Date Resolution Status Diabetes type 2, uncontrolled acute Puncture wound acute Inguinal hernia acute Left otitis media acute Right inguinal hernia acute [facility] Work Phone: Evaluation note* Diagnosis Onset Date Resolution Status Inguinal hernia acute Left otitis media acute Right inguinal hernia acute Right inguinal hernia acute Diabetes type 2, uncontrolled acute CKD (chronic kidney disease) [facility] Work Phone: Evaluation note* Diagnosis Onset Date Resolution Status Diabetes type 2, uncontrolled acute CKD (chronic kidney disease) chronic Hypertension [facility] Work Phone: Evaluation note* Diagnosis Onset Date Resolution Status Diarrhea acute Diverticulitis acute LLQ abdominal pain acute [facility] Work Phone: Evaluation note* Diagnosis Onset Date Resolution Status Celiac disease acute Diabetes type 2, uncontrolled acute Elevated PSA measurement acu te Pain of right calf acute Renal insufficiency acute Hypertension chronic [facility] Work Phone: Evaluation note* Diagnosis Onset Date Resolution Status Celiac disease acute Diabetes type 2, uncontrolled acute Elevated PSA measurement acu te Pain of right calf acute Renal insufficiency acute Hypertension chronic Acute left-sided low back pain with sciatica acute Back muscle spasm acute Left sided sciatica acute [facility] Work Phone: Evaluation note* Diagnosis Paroxysmal atrial fibrillation (HCC)- Primary Atrial fibrillation Coronary artery disease involving [place] coronary artery of [place] heart without angina pectoris documented in this encounter [facility]* Diagnosis Shortness of breath- Primary Shortness of breath Pleural effusion Unspecified pleural effusion Pneumonia due to infectious organism, unspecified laterality, unspecified part of lung Delirium Other alteration of consciousness Depression, unspecified depression type Paranoia ([facility]) Delusional disorder Debility Unspecified debility Severe malnutrition (CMS/HCC) ([facility]) Nutritional marasmus documented in this encounter [facility]* Diagnosis Recurrent pleural effusion [J90]- Primary Chronic respiratory failure with hypoxia ([facility]) [J96.11] HFrEF (heart failure with reduced ejection fraction) ([facility]) [I50.20] Atelectasis [J98.11] Pulmonary collapse Bilateral pulmonary infiltrates [R91.8] Stage 4 very severe COPD by GOLD classification ([facility]) [J44.9] [facility] Diagnosis Chronic respiratory failure with hypoxia (HCC) [J96.11]- Primary Recurrent pleural effusion [J90] HFrEF (heart failure with reduced ejection fraction) ([facility]) [I50.20] Atelectasis [J98.11] Pulmonary collapse Stage 4 very severe COPD by GOLD classification ([facility]) [J44.9] [facility]* Diagnosis Pleural effusion- Primary Unspecified pleural effusion Pleural effusion Unspecified pleural effusion Hypoxia Hypoxemia HFrEF (heart failure with reduced ejection fraction) ([facility]) Acute pulmonary edema (HCC) Unspecified acute edema of lung Anxiety Anxiety state, unspecified Shortness of breath Type 2 diabetes mellitus with other diabetic kidney complication, with long-term current use of insulin ([facility]) Severe malnutrition ([facility]/HCC) ([facility]) Nutritional marasmus documented in this encounter [facility]* Diagnosis Pleural effusion in other conditions classified elsewhere- Primary documented in this encounter [facility]* Diagnosis Asymptomatic hypertension- Primary Pain Generalized pain documented in this encounter [facility] noteNo assessment information availableWMer[facility] Work Phone: Evaluation note* Diagnosis Type 2 diabetes mellitus with other diabetic kidney complication, with long-term current use of insulin ([facility])- Primary Centrilobular emphysema (HCC) Atrial fibrillation, unspecified type (HCC) Anxiety Anxiety state, unspecified Coronary artery disease involving fed[place] heart without angina pectoris, unspecified vessel or lesion type Neuropathy Mononeuritis of unspecified site Gastroesophageal reflux disease without esophagitis Esophageal reflux 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 (HCC) Congestive heart failure, unspecified HF chronicity, unspecified heart failure type (HCC) Bilateral carotid artery stenosis Occlusion and stenosis of carotid artery without mention of cerebral infarction Chronic obstructive pulmonary disease, unspecified COPD type (HCC) Grieving Adjustment disorder with depressed mood End stage renal disease (HCC) End stage renal disease Weight loss Loss of weight Macular degeneration of right eye, unspecified type [facility] Diagnosis Type 2 diabetes mellitus with other diabetic kidney complication, with long-term current use of insulin (HCC)- Primary Centrilobular emphysema (HCC) Atrial fibrillation, unspecified type (HCC) Anxiety Anxiety state, unspecified Coronary artery disease involving [place] heart without angina pectoris, unspecified vessel or lesion type Neuropathy Mononeuritis of unspecified site Gastroesophageal reflux disease without esophagitis Esophageal reflux 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 (HCC) Congestive heart failure, unspecified HF chronicity, unspecified heart failure type (HCC) Bilateral carotid artery stenosis Occlusion and stenosis of carotid artery without mention of cerebral infarction Chronic obstructive pulmonary disease, unspecified COPD type (HCC) Grieving Adjustment disorder with depressed mood End stage renal disease (HCC) End stage renal disease Weight loss Loss of weight Macular degeneration of right eye, unspecified type Type 2 diabetes mellitus with other diabetic kidney complication, with long-term current use of insulin (HCC)- Primary Anxiety Anxiety state, unspecified End stage renal disease (HCC) End stage renal disease Weight loss Loss of weight Lumbar post-laminectomy syndrome Postlaminectomy syndrome, lumbar region Ischemic cardiomyopathy Other specified forms of chronic ischemic heart disease Neuropathy Mononeuritis of unspecified site Mild episode of recurrent major depressive disorder (HCC) [facility]* Diagnosis Type 2 diabetes mellitus with other diabetic kidney complication, with long-term current use of insulin (HCC)- Primary Centrilobular emphysema (HCC) Atrial fibrillation, unspecified type (HCC) Anxiety Anxiety state, unspecified Coronary artery disease involving fed[place] heart without angina pectoris, unspecified vessel or lesion type Neuropathy Mononeuritis of unspecified site Gastroesophageal reflux disease without esophagitis Esophageal reflux 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 (HCC) Congestive heart failure, unspecified HF chronicity, unspecified heart failure type (HCC) Bilateral carotid artery stenosis Occlusion and stenosis of carotid artery without mention of cerebral infarction Chronic obstructive pulmonary disease, unspecified COPD type (HCC) Grieving Adjustment disorder with depressed mood End stage renal disease (HCC) End stage renal disease Weight loss Loss of weight Macular degeneration of right eye, unspecified type Type 2 diabetes mellitus with other diabetic kidney complication, with long-term current use of insulin (HCC)- Primary Anxiety Anxiety state, unspecified End stage renal disease (HCC) End stage renal disease Weight loss Loss of weight Lumbar post-laminectomy syndrome Postlaminectomy syndrome, lumbar region Ischemic cardiomyopathy Other specified forms of chronic ischemic heart disease Neuropathy Mononeuritis of unspecified site Mild episode of recurrent major depressive disorder (HCC) Anxiety Anxiety state, unspecified [facility]* Diagnosis Type 2 diabetes mellitus with other diabetic kidney complication, with long-term current use of insulin (HCC)- Primary Centrilobular emphysema (HCC) Atrial fibrillation, unspecified type (HCC) Anxiety Anxiety state, unspecified Coronary artery disease involving fed[place] heart without angina pectoris, unspecified vessel or lesion type Neuropathy Mononeuritis of unspecified site Gastroesophageal reflux disease without esophagitis Esophageal reflux 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 (HCC) Congestive heart failure, unspecified HF chronicity, unspecified heart failure type (HCC) Bilateral carotid artery stenosis Occlusion and stenosis of carotid artery without mention of cerebral infarction Chronic obstructive pulmonary disease, unspecified COPD type (HCC) Grieving Adjustment disorder with depressed mood End stage renal disease (HCC) End stage renal disease Weight loss Loss of weight Macular degeneration of right eye, unspecified type Type 2 diabetes mellitus with other diabetic kidney complication, with long-term current use of insulin ([facility])- Primary Anxiety Anxiety state, unspecified End stage renal disease (HCC) End stage renal disease Weight loss Loss of weight Lumbar post-laminectomy syndrome Postlaminectomy syndrome, lumbar region Ischemic cardiomyopathy Other specified forms of chronic ischemic heart disease Neuropathy Mononeuritis of unspecified site 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, with long-term current use of insulin (HCC)- Primary [facility]* Diagnosis Type 2 diabetes mellitus with other diabetic kidney complication, with long-term current use of insulin ([facility])- Primary Centrilobular emphysema (HCC) Atrial fibrillation, unspecified type (HCC) Anxiety Anxiety state, unspecified Coronary artery disease involving fed[place] heart without angina pectoris, unspecified vessel or lesion type Neuropathy Mononeuritis of unspecified site Gastroesophageal reflux disease without esophagitis Esophageal reflux 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 (HCC) Congestive heart failure, unspecified HF chronicity, unspecified heart failure type (HCC) Bilateral carotid artery stenosis Occlusion and stenosis of carotid artery without mention of cerebral infarction Chronic obstructive pulmonary disease, unspecified COPD type (HCC) Grieving Adjustment disorder with depressed mood End stage renal disease (HCC) End stage renal disease Weight loss Loss of weight Macular degeneration of right eye, unspecified type Type 2 diabetes mellitus with other diabetic kidney complication, with long-term current use of insulin ([facility])- Primary Anxiety Anxiety state, unspecified End stage renal disease (HCC) End stage renal disease Weight loss Loss of weight Lumbar post-laminectomy syndrome Postlaminectomy syndrome, lumbar region Ischemic cardiomyopathy Other specified forms of chronic ischemic heart disease Neuropathy Mononeuritis of unspecified site Mild episode of recurrent major depressive disorder ([facility]) Type 2 diabetes mellitus with other diabetic kidney complication, with long-term current use of insulin ([facility])- Primary documented in this encounter [facility]* Diagnosis Type 2 diabetes mellitus with other diabetic kidney complication, with long-term current use of insulin ([facility])- Primary Centrilobular emphysema ([facility]) Atrial fibrillation, unspecified type (HCC) Anxiety Anxiety state, unspecified Coronary artery disease involving fed[place] heart without angina pectoris, unspecified vessel or lesion type Neuropathy Mononeuritis of unspecified site Gastroesophageal reflux disease without esophagitis Esophageal reflux 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 (HCC) Congestive heart failure, unspecified HF chronicity, unspecified heart failure type (HCC) Bilateral carotid artery stenosis Occlusion and stenosis of carotid artery without mention of cerebral infarction Chronic obstructive pulmonary disease, unspecified COPD type (HCC) Grieving Adjustment disorder with depressed mood End stage renal disease (HCC) End stage renal disease Weight loss Loss of weight Macular degeneration of right eye, unspecified type Type 2 diabetes mellitus with other diabetic kidney complication, with long-term current use of insulin ([facility])- Primary Anxiety Anxiety state, unspecified End stage renal disease (HCC) End stage renal disease Weight loss Loss of weight Lumbar post-laminectomy syndrome Postlaminectomy syndrome, lumbar region Ischemic cardiomyopathy Other specified forms of chronic ischemic heart disease Neuropathy Mononeuritis of unspecified site Mild episode of recurrent major depressive disorder (HCC) Paroxysmal atrial fibrillation (HCC)- Primary Atrial fibrillation Coronary artery disease involving fed[place] heart without angina pectoris, unspecified vessel or lesion type Bilateral carotid artery stenosis Occlusion and stenosis of carotid artery without mention of cerebral infarction Acute pulmonary edema (HCC) Unspecified acute edema of lung [facility] Diagnosis Type 2 diabetes mellitus with other diabetic kidney complication, with long-term current use of insulin (HCC)- Primary Centrilobular emphysema (HCC) Atrial fibrillation, unspecified type (HCC) Anxiety Anxiety state, unspecified Coronary artery disease involving fed[place] heart without angina pectoris, unspecified vessel or lesion type Neuropathy Mononeuritis of unspecified site Gastroesophageal reflux disease without esophagitis Esophageal reflux 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 Congestive heart failure, unspecified HF chronicity, unspecified heart failure type (HCC) Bilateral carotid artery stenosis Occlusion and stenosis of carotid artery without mention of cerebral infarction Chronic obstructive pulmonary disease, unspecified COPD type (HCC) Grieving Adjustment disorder with depressed mood End stage renal disease (HCC) End stage renal disease Weight loss Loss of weight Macular degeneration of right eye, unspecified type Type 2 diabetes mellitus with other diabetic kidney complication, with long-term current use of insulin (HCC)- Primary Anxiety Anxiety state, unspecified End stage renal disease (HCC) End stage renal disease Weight loss Loss of weight Lumbar post-laminectomy syndrome Postlaminectomy syndrome, lumbar region Ischemic cardiomyopathy Other specified forms of chronic ischemic heart disease Neuropathy Mononeuritis of unspecified site Mild episode of recurrent major depressive disorder Paroxysmal atrial fibrillation (HCC) Atrial fibrillation [facility] Diagnosis Onset Date Resolution Status Admit Date ESRD (end stage renal disease) on dialysis chronic May 9:18am [facility] Work Phone: Evaluation note* Diagnosis Type 2 diabetes mellitus with other diabetic kidney complication, with long-term current use of insulin (HCC)- Primary Centrilobular emphysema (HCC) Atrial fibrillation, unspecified type (HCC) Anxiety Anxiety state, unspecified Coronary artery disease involving fed[place] heart without angina pectoris, unspecified vessel or lesion type Neuropathy Mononeuritis of unspecified site Gastroesophageal reflux disease without esophagitis Esophageal reflux 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 Congestive heart failure, unspecified HF chronicity, unspecified heart failure type (HCC) Bilateral carotid artery stenosis Occlusion and stenosis of carotid artery without mention of cerebral infarction Chronic obstructive pulmonary disease, unspecified COPD type (HCC) Grieving Adjustment disorder with depressed mood End stage renal disease (HCC) End stage renal disease Weight loss Loss of weight Macular degeneration of right eye, unspecified type Type 2 diabetes mellitus with other diabetic kidney complication, with long-term current use of insulin (HCC)- Primary Anxiety Anxiety state, unspecified End stage renal disease (HCC) End stage renal disease Weight loss Loss of weight Lumbar post-laminectomy syndrome Postlaminectomy syndrome, lumbar region Ischemic cardiomyopathy Other specified forms of chronic ischemic heart disease Neuropathy 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, without long-term current use of insulin (HCC)- Primary Anxiety Anxiety state, unspecified Weight loss Loss of weight 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 [address] [place] [address] OFFICE VISIT Date of Service: 05/19/25 MR#: [id number] Acct: [id number] Name: JOSE JOHN Pee Rep #: [id number] : 1945 Provider: JERRY Cardenas Age/Sex: 80/M Location: [facility] [place] Status: Signed Intake Vital Signs 01/13/25 12:49 04/21/25 09:21 05/19/25 09:36 Height 5 ft 10 in 5 ft 10 in Weight: 129 lb BP 147/78 H Blood Pressure Location Rt brachial Position Sitting Respiration 16 Pulse 86 Pulse Source Monitor Temp 97.8 F Temp Source Temporal Pulse Oximetry (%) 99 Oxygen Delivery Method room air Intake Visit Reasons: Discuss Surgery Prior to Scheduling Is patient in pain?: No Allergies lisinopril Allergy (Severe, Verified 05/19/25 09:37) raspy voice and cough Penicillins Allergy (Verified 05/19/25 09:37) Anaphylaxis Sulfa (Sulfonamide Antibiotics) Allergy (Verified 05/19/25 09:37) Anaphylaxis levofloxacin (From Levaquin) Adverse Reaction (Verified 05/19/25 09:37) Upset Stomach Medications ?Medication ?Instructions ?Recorded ?Confirmed ?Type carvedilol 6.25 mg tablet 6.25 mg PO BID 01/13/2505/06 History lorazepam 0.5 mg tablet (Ativan) 0.5 mg PO TID PRN anx iety 3 days 01/13/25 05/19/25 Rx #9 tabs nifedipine 60 mg tablet,extended 60 mg PO DAILY 05/19/25 History release 24 hr Have you fallen in the past year?: No PFSH Medical History DVT (deep venous thrombosis) Dialysis patient Carotid artery bruit Coronary artery disease Cardiomyopathy CKD (chronic kidney disease) stage 4, GFR 15-29 ml/min ZOFIA (acute kidney injury) Anemia Inguinal hernia of right side without obstruction or gangrene Easy bruising Neuropathy Former smoker Heartburn Chronic renal insufficiency, stage III (moderate) Depression Black tarry stools Diarrhea Abdominal pain Hx TIA/stroke w/o resid Mini stroke Fatigue Hypertension L eye torn retina Pseudobulbar affect Anxiety disorder Macular degeneration Kidney stones Osteoarthritis Diabetes type 2, uncontrolled Surgical History History of open heart surgery S/P laparoscopic hernia repair Previous back surgery Hx laparoscopic cholecystectomy Family History Mother Diabetes Heart disease Hypertension CVA (cerebral vascular accident) Sister CVA (cerebral vascular accident) Heart disease Other High cholesterol Social History household members: none housing: house current occupational status: retired Smoking Status: Former smoker alcohol intake: never substance use type: does not use caffeine: Yes what type of physical activity do you participate in: none frequency: does not exercise HPI HPI HPI: JOSE JOHN, is a 80 M who presents to the office today for further discussion of AV fistula creation. He had seen Dr. Freeman in the office in January 2025 and based upon his vein mapping L basilic AVF creation was recommended; at the time patient was dealing with reconciling is sudden health changes as well as grieving the recent loss of his and [id number] and was not ready to proceed with surgery. He reports that he feels he is doing a bit better overall, they have made some adjustments to his dialysis that have lessened his fatigue. He also anticipates they will be reducing him to 3 hour dialysis sessions from 4 hours. He is producing urine still, he says a moderate amount. He is still using the tunneleddialysis catheter and this has been working well for him. Unfortunately though, he reports that he is undergoing a cardiac workup right now with upcoming satellite project site monitor placement; he has a history of CABG x4. He is still not ready toproceed with fistula creation; he wants to fully complete his cardiac workup which is reasonable and beyond that he just is not mentally ready yet for a fistula, wishes to continue with the catheter for now. ROS General General: Yes weight change, fatigue and weakness; No appetite, colon cancer or breast cancer HEENT HEENT: Yes eye surgery; No difficulty swallowing, eye injury, swollen glands or hoarseness Endo Endocrine: Yes diabetes mellitus; No thyroid disease, thyroid cancer, Hair loss, heat intolerance or cold intolerance Skin Skin: No rash or changing moles Musc Musculoskeletal: Yes back problems and joint pain; No arthritis, rheumatoid arthritis or gout Cardio Cardiovascular: Yes heart disease, high blood pressure and palpitations; No murmur, pacemaker, atrial fibrillation, heart attack, heart stent, shortness of breath with exertion or chest pain Psych Psychiatric: Yes depression and anxiety; No hearing voices Resp Respiratory: No shortness of breath, No sleep apnea, No cough, No COPD, No asthma, No emphysema and No wheezing Gastro Gastrointestinal: No abdominal pain, Yes nausea or vomiting, No diarrhea, No constipation, No blood in stool, Yes acid reflux, No hemorrhoids, No ulcers, No gallbladder problem and No black,tarry stools Devin Hematologic: No blood thinners, No blood disorders, No bleeding, No anemia and No blood clots Neuro Neurologic: No system reviewed and no additional complaints, except as documented, No as per HPI, No abnormal gait, No abnormal hearing, No abnormal movements, No abnormal speech, No behavioral changes, No burning sensations, No confusion, No convulsions, No disequilibrium, No dizziness, No localized weakness, No frequent falls, Yes headache(s), No lack of coordination, No loss of vision, No memory loss, Yes numbness, No other visual disturbances, Yes radicular pain, No restless legs, No sensory deficit, No syncope, Yes tingling, No tremor(s), Yes weakness and No other Exam Const General: cooperative, healthy appearing, comfortable, no acute distress and welldeveloped Nutritional Appearance: well nourished Orientation: alert, awake and oriented x3 HENMT Head: normocephalic and atraumatic Ears: hearing grossly normal bilaterally Nose: external nose normal Eyes General: appearance normal, both eyes and all related structures EOM: EOM intact bilaterally Neck Neck: normal visual inspection and trachea midline Resp Effort & Inspection: normal respiratory effort, able to speak in complete sentences, symmetric chest movement, no audible wheezes, not labored, no stridorand no use of accessory muscles Cardio Rate: regular rate Rhythm: regular rhythm Pulses: radial pulses present Skin General: no rashes or lesions noted and no erythema Wounds: no wounds Neuro Speech: speech normal Gait: normal gait Psych Appearance: grossly normal and well kempt Mental Status: mental status grossly normal Mood: congruent mood Speech and Movement: speech and movement normal Thought Content: normal Judgment: judgment good Coding Level of Care Code Off vis,est,level 1 Diagnoses ESRD (end stage renal disease) on dialysis N18.6; Z99.2 Assessment and Plan Assessment and Plan (1) ESRD (end stage renal disease) on dialysis: Status: Chronic Plan: Any questions/concerns he had regarding fistula creation were addressed to his apparent satisfaction. He does not wish to proceed with AVF creation at this time. He is encouraged to call the office with any further questions/concerns and to return as needed if he decides he wishes to proceed. Clinical Quality Measures Falls Risk Screening/Assistive Devices Have you fallen in the past year?: No 05/19/25 1023 <Electronically signed by Erin EDWARDS> Date _ Erin EDWARDS 05/19/25 1201<Electronically signed by Emmanuel Freeman MD> [facility] Signature: Date (if applicable) Emmanuel Freeman MD CC: APPLICATION DBA-C Kalyani Crump ~ [facility] Work Phone: Renjpi for referral (narrative)No reason for referral information availableWMercy [facility] Work Phone: Reason for visit Narrative* Cardiology (Routine) - Closed Specialty Diagnoses / Procedures Referred By Contac t Referred To Contact Cardiology Diagnoses Paroxysmal atrial fibrillation (HCC) Procedures Cardiac youth nutritional monitor (30 days) OR XTRNL MOBILE CV TELEMETRY W/I&REPORT 30 DAYS OR XTRNL MOBILE CV TELEMETRY W/I&REPORT 30 DAYS Amy Alaniz MD [address] [place] [id number] Phone: tel: fax: Referral ID Status Reason Start Date Expiration Date Visits Re quested Visits Authorized [id number] Closed 04/30/2025 04/25/2026 1 1 [facility] Summary Purpose Family History No Family History Records Found Relationship Condition Age at Onset Recorded Date/T kevin Not Specified High blood cholesterol Unknown mother Diabetes mellitus Unknown Cardiac disease Unknown Hypertension Unknown Cerebrovascular accident (CVA) Unknown sister Cerebrovascular accident (CVA) Unknown Advance Directives No Advanced Directives Records Found Advance Directive Response Recorded Date/ Time Advance Directives Yes February 14 3:15pm Living Will Yes February 14, 2021 3:15pm Power of Sheet Metal Shop Foreman Yes February 14 3:15pm Advance Directive Response Recorded Date/ Time Name of Medical Power of Sheet Metal Shop Foreman February 14, 2022 11:02am Advance Directives Yes February 14 3:15pm Living Will Yes February 14, 2022 11:02am Power of Sheet Metal Shop Foreman Yes February 14 11:02am Advance Directive Response Recorded Date/ Time Advance Directives Yes May 10, 2022 3:38pm Living Will Yes May 10 3:38pm Power of Sheet Metal Shop Foreman Yes May 10 022 3:38pm Name of Medical Power of Sheet Metal Shop Foreman February 14, 2022 11:02am Advance Directive Response Recorded Date/ Time Advance Directives Yes May 31, 2022 6:57pm Living Will Yes May 31 6:57pm Power of Sheet Metal Shop Foreman Yes May 31, 2022 6:57pm Advance Directive Response Recorded Date/ Time Advance Directives Yes May 31, 2022 7:57pm Living Will Yes May 31 7:57pm Power of Sheet Metal Shop Foreman Yes May 31, 2022 7:57pm Advance Directive Response Recorded Date/ Time Name of Medical Power of Sheet Metal Shop Foreman DEEPTI Bonilla November 13, 2023 6:51am Advance Directives Yes May 31, 2022 7:57pm Living Will Yes November 13, 2023 6:51am Power of Sheet Metal Shop Foreman Yes November 12 6:51am Latest Code Status on File Code Status Date Activated Date Inactivated Comments Full Code 11/15/2023 5:39 PM 12/25/2023 6:42 PM Date Activated Date Inactivated Comments 11/15/2023 5:39 PM 12/25/2023 6:42 PM Date Activated Date Inactivated Comments 01/27/2024 3:56 PM 01/31/2024 12:00 AM Date Activated Date Inactivated Comments 11/15/2023 5:39 PM 12/25/2023 6:42 PM Date Activated Date Inactivated Comments 02/12/2024 8:59 AM 02/27/2024 7:12 PM Date Activated Date Inactivated Comments 01/27/2024 3:56 PM 01/31/2024 12:00 AM Date Activated Date Inactivated Comments 11/15/2023 5:39 PM 12/25/2023 6:42 PM Date Activated Date Inactivated Comments 02/12/2024 8:59 AM 02/27/2024 7:12 PM Date Activated Date Inactivated Comments 01/27/2024 3:56 PM 01/31/2024 12:00 AM Date Activated Date Inactivated Comments 11/15/2023 5:39 PM 12/25/2023 6:42 PM Date Activated Date Inactivated Comments 05/04/2024 2:46 PM Question Answer Comments Full Code Order Discussed With: Patient Date Activated Date Inactivated Comments 04/04/2024 12:55 AM 04/05/2024 7:21 PM Question Answer Comments Full Code Order Discussed With: Patient Date Activated Date Inactivated Comments 10/08/2024 7:31 AM 10/09/2024 6:53 PM Question Answer Comments DNR Order Discussed With: Patient Date Activated Date Inactivated Comments 05/04/2024 2:46 PM 05/09/2024 11:15 PM Date Activated Date Inactivated Comments 04/04/2024 12:55 AM 04/05/2024 7:21 PM Question Answer Comments Full Code Order Discussed With: Patient Advance Directive Response Recorded Date/ Time Do you have a Healthcare Power of Sheet Metal Shop Foreman? Yes January 01, 2025 7:48am Advance Directives Yes May 31, 2022 7:57pm Advance Directive Response Recorded Date/ Time Do you have a Healthcare Power of Sheet Metal Shop Foreman? Yes January 01, 2025 7:48am Do you have a Healthcare Power of Sheet Metal Shop Foreman? Yes January 13, 2025 12:55pm Name of Medical Power of Sheet Metal Shop Foreman ASHLEIGH-DGHT January 13, 2025 12:55pm Advance Directives Yes May 31, 2022 7:57pm Advance Directive Response Recorded Date/ Time Advance Directives Yes April 9:21am Chief Complaint and Reason for Visit Chief Complaint medication refills Reason for Visit Diabetes type 2, unc ontrolled Chronic lower back pain Chief Complaint Foot injury Bronchitis R INGUINAL HERNIA RT LAP ROBOTIC INGUINAL HERNIA RT LAP ROBOTIC INGUINAL HERNIA Reason for Visit Diabetes type 2, unc ontrolled Puncture wound Inguinal hernia Left otitis media Right inguinal hernia Chief Complaint Bronchitis R INGUINAL HERNIA RT LAP ROBOTIC INGUINAL HERNIA RT LAP ROBOTIC INGUINAL HERNIA RT LAP ROBOTIC INGUINAL HERNIA HERNIA 02/23 Diabetes Mellitus Type 2 A1c Reason for Visit Inguinal hernia Left otitis media Right inguinal hernia Right inguinal hernia Diabetes type 2, uncontrolled CKD (chronic kidney disease) Chief Complaint medication refills Reason for Visit Diabetes type 2, unc ontrolled CKD (chronic kidney disease) Hypertension Chief Complaint Diarrhea X2 days Reason for Visit Diarrhea Diverticulitis LLQ abdominal pain Chief Complaint medication refills Reason for Visit Celiac disease Diabetes type 2, uncontrolled Elevated PSA measurement Pain of right calf Renal insufficiency Hypertension Chief Complaint medication refills Back pain NSTEMI Reason for Visit Celiac disease Diabetes type 2, uncontrolled Elevated PSA measurement Pain of right calf Renal insufficiency Hypertension Acute left-sided low back pain with sciatica Back muscle spasm Left sided sciatica Chief Complaint Admit Date WEAKNESS, SOB January 01, 2025 7:42a m Chief Complaint Admit Date WEAKNESS, SOB January 01, 2025 7:42a m FOR PERMINATE DIALYSIS ACCESS January 06, 2025 12:35pm chest pain January 13, 2025 12:4 8pm Chief Complaint Admit Date WEAKNESS, SOB January 01, 2025 7:42a m FOR PERMINATE DIALYSIS ACCESS January 06, 2025 12:35pm chest pain January 13, 2025 12:4 8pm Discuss Vein Mapping January 29, 2025 2:5 2pm Chief Complaint Admit Date Discuss Surgery Prior to Scheduling Octo 2024 9:18am Reason for Visit Admit Date ESRD (end stage renal disease) on dialys is May 19, 2025 9:18am Additional Source Comments (unrecognized sect ion and content) No Status Records FoundNo Status Records FoundNo Status Records FoundNo Status Records FoundNo Status Records Found INFORMATION SOURCE (unrecogn ized section and content) DATE CREATED AUTHOR 01/29/2018 [facility] DATE CREATED AUTHOR AUTHOR'S ORGANIZ ATION 10/10/2024 [facility] DATE CREATED AUTHOR AUTHOR'S ORGANIZ ATION 10/14/2024 [facility] DATE CREATED AUTHOR AUTHOR'S ORGANIZ ATION 06/17/2025 [facility] DATE CREATED AUTHOR AUTHOR'S ORGANIZ ATION 06/17/2025 [facility] Goals (unrecognized section and content) Goals may be documented in a n alternate sectionGoals may be documented in an alternate sectionGoals may be documented in an alternate sectionGoals may be documented in an alternate sectionGoals may be documented in an alternate sectionGoals may be documented in an alternate sectionGoals may be documented in an alternate sectionGoals may be documented in an alternate sectionGoals may be documented in an alternate sectionGoals may be documented in an alternate section Care Teams (unrecognized sec tion and content) Team Status: Active Member Role Status Dates Olena Gabriel NP, APPLICATION DBA-C Family Provider Active Olena Gabriel NP, APPLICATION DBA-C Primary Care Provider Active Team Status: Inactive Member Role Status Dates Olena Gabriel APPLICATION DBA, APPLICATION DBA-C Primary Care Pr ovider, Attending Provider, Referring Provider Active Team Status: Inactive Member Role Status Dates Olena Gabriel APPLICATION DBA, APPLICATION DBA-C Primary Care Provider, Attend ing Provider Active Team Status: Active Member Role Status Dates Olena Gabriel APPLICATION DBA, APPLICATION DBA-C Primary Care Provider Active Dr. Emmanuel Salgado , DO Emergency Provider Active Dr. Amanda Frank , DO Admit Provider, Attending Provide r Active Interactive Marketing Strategist Relationship Specialty Start Date End Date Olena Gabriel [address] [place] [address] PCP - General 05/28/17 Dolly Duron, RN Registered Nurse Nuclear Medicine Officer Manager 11/20/23 Interactive Marketing Strategist Relationship Specialty Start Date End Date Olena Gabriel MALINA Grissom.INTEGRATION ENGINEER [address] [id number] PCP - General Family Medicine 09/07/17 Interactive Marketing Strategist Relationship Specialty Start Date End Date Olena Gabriel [address] [place] [address] PCP - General 05/28/17 Dolly Duron, RN Registered Nurse Nuclear Medicine Officer Manager 11/20/23 Interactive Marketing Strategist Relationship Specialty Start Date End Date Olena Gabriel [address] [place] [address] PCP - General 05/28/17 Dolly Duron, RN Registered Nurse Nuclear Medicine Officer Manager 11/20/23 Interactive Marketing Strategist Relationship Specialty Start Date End Date Olena Gabriel [address] [place] [address] PCP - General 05/28/17 Dolly Duron, RN Registered Nurse Nuclear Medicine Officer Manager 11/20/23 Interactive Marketing Strategist Relationship Specialty Start Date End Date Olena Gabriel [address] [place] [address] PCP - General 05/28/17 Dolly Duron, RN Registered Nurse Nuclear Medicine Officer Manager 11/20/23 Interactive Marketing Strategist Relationship Specialty Start Date End Date Olena Gabriel [address] [place] [address] PCP - General 05/28/17 Dolly Duron, RN Registered Nurse Nuclear Medicine Officer Manager 11/20/23 02/12/24 Interactive Marketing Strategist Relationship Specialty Start Date End Date Olena Gabriel [address] [place] [address] PCP - General 05/28/17 Interactive Marketing Strategist Relationship Specialty Start Date End Date Olena Gabriel, MANAGER OF PROJECT MANAGEMENT.INTEGRATION ENGINEER [address] [address] PCP - General Family Medicine 09/07/17 Toño Hull MD [address] [facility] [place] [address] Family Medicine 05/01/24 Interactive Marketing Strategist Relationship Specialty Start Date End Date Olena Gabriel [address] [place] [address] PCP - General 05/28/17 Dolly Duron, RN Registered Nurse Nuclear Medicine Officer Manager 11/20/23 02/12/24 Interactive Marketing Strategist Relationship Specialty Start Date End Date Olena Gabriel [address] [place] [address] PCP - General 05/28/17 Dolly Duron, RN Registered Nurse Nuclear Medicine Officer Manager 11/20/23 02/12/24 Interactive Marketing Strategist Relationship Specialty Start Date End Date Sammy Luther APRN - INTEGRATION ENGINEER [address] [place], [place] [id number] PCP - General Nurse Practitioner 05/26/24 Interactive Marketing Strategist Relationship Specialty Start Date End Date Edwige Bailey MD [address] [facility] [address] [place] [address] PCP - General Internal Medicine 10/09/24 Toño Hull MD 60 [place] [address] Family Medicine 05/01/24 Fina Callahan RN [address] [facility] [address] [place], [place] [id number] Primary Care Display Carver 10/10/24 Team Status: Active Member Role Status Dates No Primary Care Physician Primary Care Provider Active Team Status: Inactive Member Role Status Dates Dr. eLna Mcfarland , DO Emergency Provider Active S tart: January 01, 2025 End: January 01, 2025 No Primary Care Physician Primary Care Provider Active Start: January 01, 2025 End: January 01, 2025 Team Status: Inactive Member Role Status Dates Dr. Lena Mcfarland , DO Attending Provider Active S tart: January 01, 2025 End: January 01, 2025 Dr. Lena Mcfarland , DO Emergency Provider Active S tart: January 01, 2025 End: January 01, 2025 No Primary Care Physician Primary Care Provider Active Start: January 01, 2025 End: January 01, 2025 Team Status: Inactive Member Role Status Dates Dr. Jakob Allen MD Attending Provider Active Start: January 06, 2025 End: January 06, 2025 Dr. Jakob Allen MD Referring Provider Active Start: January 06, 2025 End: January 06, 2025 No Primary Care Physician Primary Care Provider Active Start: January 06, 2025 End: January 06, 2025 Team Status: Active Member Role Status Dates No Primary Care Physician Primary Care Provider Active Start: January 06, 2025 Dr. Emmanuel Freeman MD Attending Provider Active S tart: January 06, 2025 Team Status: Active Member Role Status Dates No Primary Care Physician Primary Care Provider Active Start: January 13, 2025 Dr. Nikolas Rose MD Emergency Provider Active Sta rt: January 13, 2025 Team Status: Inactive Member Role Status Dates No Primary Care Physician Primary Care Provider Active Start: January 13, 2025 End: January 13, 2025 Dr. Nikolas Rose MD Emergency Provider Active Sta rt: January 13, 2025 End: January 13, 2025 Team Status: Active Member Role Status Dates Kalyani Crump NP-C Primary Care Provider Active Team Status: Inactive Member Role Status Dates No Primary Care Physician Primary Care Provider Active Start: January 13, 2025 End: January 13, 2025 Dr. Nikolas Rose MD Attending Provider Active Sta rt: January 13, 2025 End: January 13, 2025 Dr. Nikolas Rose MD Emergency Provider Active Sta rt: January 13, 2025 End: January 13, 2025 Team Status: Inactive Member Role Status Dates Dr. Emmanuel Freeman MD Attending Provider Active S tart: January 29, 2025 End: January 29, 2025 Dr. Jakob Allen MD Referring Provider Active Start: January 29, 2025 End: January 29, 2025 Kalyani Crump NP-C Primary Care Provider Active Start: January 29, 2025 End: January 29, 2025 Interactive Marketing Strategist Relationship Specialty Start Date End Date Sammy Luther APRN - CNP [address] [facility] [address] [place] [address] PCP - General Nurse Practitioner 05/26/24 Interactive Marketing Strategist Relationship Specialty Start Date End Date Marylin Franz MD [address] [place] [address] [place] [address] PCP - General Family Medicine 02/03/25 Kalyani Crump APRN - INTEGRATION ENGINEER [address] [place] [address] [place] [address] Nurse Practitioner Nurse Practitioner Family 02/03/25 Interactive Marketing Strategist Relationship Specialty Start Date End Date Marylin Franz MD [address] [place] [address] PCP - General Family Medicine 02/03/25 Kalyani Crump APRN - INTEGRATION ENGINEER [address] [facility] [place] [address] Nurse Practitioner Nurse Practitioner Family 02/03/25 Interactive Marketing Strategist Relationship Specialty Start Date End Date Sammy Luther APRN - CNP [address] [facility] [address] [place] [address] PCP - General Nurse Practitioner 05/26/24 02/02/25 Marylin Franz [place] [address] PCP - General Family Medicine 02/03/25 Kalyani Crump APRN - CNP [address] [facility] [place] [address] Nurse Practitioner Nurse Practitioner Family 02/03/25 Interactive Marketing Strategist Relationship Specialty Start Date End Date Marylin Franz [place] [address] PCP - General Family Medicine 02/03/25 Kalyani Crump APRN - CNP [address] [facility] [place] [address] Nurse Practitioner Nurse Practitioner Family 02/03/25 Interactive Marketing Strategist Relationship Specialty Start Date End Date Marylin Franz MD [address] [place] [address] PCP - General Family Medicine 02/03/25 Kalyani Crump APRN - LUCA [address] [place] [address] [place] [address] Nurse Practitioner Nurse Practitioner Family 02/03/25 Interactive Marketing Strategist Relationship Specialty Start Date End Date Marylin Franz MD [address] [place] [address] PCP - General Family Medicine 02/03/25 Kalyani Crump APRN - INTEGRATION ENGINEER [address] [place] [address] [place] [address] Nurse Practitioner Nurse Practitioner Family 02/03/25 Interactive Marketing Strategist Relationship Specialty Start Date End Date Marylin Franz MD [address] [place] [address] [place] [address] PCP - General Family Medicine 02/03/25 Kalyani Crump APRN - INTEGRATION ENGINEER [address] [place] [address] [place] [address] Nurse Practitioner Nurse Practitioner Family 02/03/25 Interactive Marketing Strategist Relationship Specialty Start Date End Date Marylin Franz MD [address] [place] [address] PCP - General Family Medicine 02/03/25 Kalyani Crump APRN - INTEGRATION ENGINEER [address] [place] [address] [place] [address] Nurse Practitioner Nurse Practitioner Family 02/03/25 Interactive Marketing Strategist Relationship Specialty Start Date End Date Marylin Franz MD [address] [place] [address] PCP - General Family Medicine 02/03/25 Kalyani Crump APRN - INTEGRATION ENGINEER [address] [place] [address] Nurse Practitioner Nurse Practitioner Family 02/03/25 Team Status: Active Member Role/Relationship Status Dates Kalyani Crump APPLICATION DBA-C Primary care physician Activ e Team Status: Inactive Member Role/Relationship Status Dates Kalyani Crump APPLICATION DBA-C Primary care physician Activ e Start: May 19, 2025 End: May 19, 2025 Kalyani Crump NP-C Referring Provider Active Start: May 19, 2025 End: May 19, 2025 JERRY Cardenas Attending physician Active Sta rt: May 19, 2025 End: May 19, 2025 Interactive Marketing Strategist Relationship Specialty Start Date End Date Marylin Franz MD [address] [place] [address] PCP - General Family Medicine 02/03/25 Kalyani Crump APRN - INTEGRATION ENGINEER [address] [place] [address] Nurse Practitioner Nurse Practitioner [facility] 02/03/25 Interactive Marketing Strategist Relationship Specialty Start Date End Date Marylin Franz MD [address] [place] [address] PCP - General Family Medicine 02/03/25 Kalyani Crump APRN - INTEGRATION ENGINEER [address] [place] [address] [place] [address] Nurse Practitioner Nurse Practitioner Family 02/03/25 Source Comments (unrecognize d section and content) In the event this informatio n is protected by the Federal Confidentiality of Alcohol and Drug Abuse Patient Records regulations: The Federal rules restrict any use of the information to criminally investigate or prosecute any alcohol or drug abuse patient.[facility] the event this information is protected by the Federal Confidentiality of Alcohol and Drug Abuse Patient Records regulations: The Federal rules restrict any use of the information to criminally investigate or prosecute any alcohol or drug abuse patient.[facility] the event this information is protected by the Federal Confidentiality of Alcohol and Drug Abuse Patient Records regulations: The Federal rules restrict any use of the information to criminally investigate or prosecute any alcohol or drug abuse patient.[facility] Reason for Visit (unrecogniz ed section and content) Reason Comments Shortness of Breath [facility]. Pt states he has 3/10 left side chest pain . 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 . Specialty Diagnoses / Procedures Referred By Contac t Referred To Contact Diagnoses Shortness of breath Pleural effusion Pneumonia due to infectious organism, unspecified laterality, unspecified part of lung Procedures . Jaleel Duvall MD [address] [place] [address] [facility] [address] [place] [address] Referral ID Status Reason Start Date Expiration Date Visits Re quested Visits Authorized [id number] 1 1 Reason Onset Date Comments Discussion Of Care 01/21/2024 Specialty Diagnoses / Procedures Referred By Contac t Referred To Contact Diagnoses Pleural effusion Procedures . Maylin Allen MD [address] [place] [address] [facility] [address] [place] [address] Referral ID Status Reason Start Date Expiration Date Visits Re quested Visits Authorized [id number] 1 [address] Reason Comments Hypertension Reason Comments New Patient Reason Comments Diabetes Medication Check Arm Pain Left arm---had left over oxy at home and took it last night GERD Reason Onset Date Comments Care Coordination 03/18/2025 Reason Onset Date Comments Prior Authorization 04/02/2025 Reason Comments Other Blood sugar Reason Comments New Patient Coronary Artery Disease Cardiomyopathy Hypertension Specialty Diagnoses / Procedures Referred By Contac t Referred To Contact Cardiology Diagnoses Coronary artery disease involving [employer] [place] heart without angina pectoris, unspecified vessel or lesion type Procedures OR OFFICE/OUTPATIENT NEW HIGH MDM 60 MINUTES Kalyani Crump, MANAGER OF PROJECT MANAGEMENT - INTEGRATION ENGINEER [address] [place] [address] [place] [address] Phone: tel: fax: Amy Alaniz MD [address] [place] [address] [address] [place] [address] Phone: tel: fax: Referral ID Status Reason Start Date Expiration Date V isits Requested Visits Authorized [id number] Closed Specialty Services Required 01/29/2025 01/29/2026 1 1 Reason Comments Diabetes Reason Onset Date Comments Other 06/10/2025 OV notes faxed Scheduled Active and Recently Administ ered Medications (unrecognized section and content) Medication Order 01/28/2024 01/29/2024 01/30/2024 amiodarone (Pacerone) tablet 200 mg 200 mg, Oral, Daily, First dose on Sun01/23/24 at 0900 0829 (Given - Provider: Candy Yepez RN) 0951 (Given - Provider: Lexis Araujo RN) 08 (Given - Provider: Altagracia Pitts RN) aspirin chewable tablet 81 mg 81 mg, Oral, Daily, First dose on Sun01/23/24 at 0900 0829 (Given - Provider: Candy Yepez RN) 0951 (Given - Provider: Lexis Araujo RN) 08 (Given - Provider: Altagracia Pitts RN) atorvastatin (Lipitor) tablet 80 mg 80 mg, Oral, Daily, First dose on Sun01/23/24 at 0900 0829 (Given - Provider: Candy Yepez RN) 0951 (Given - Provider: Lexis Araujo RN) 08 (Given - Provider: Altagracia Pitts RN) cefTRIAXone (Rocephin) 1,000 mg in sodium chloride 0.9 % 50 mL IVPB Mini-Bag Plus (CANCELED) 1,000 mg, IntraVENous, at 100 mL/hr, Administer over 30 Minutes, Every 24 hours, First dose on Sun01/23/24 at 0400, Mini-Bag Plus bag, Suspected Indication (Select all that apply): Pneumonia (HAP) 0438 (New Bag - Provider: Stacia Latif, LINA)0508 (Stopped - Provider: Stacia Latif, RN) gabapentin (Neurontin) capsule 100 mg 100 mg, Oral, 2 times daily, First dose on Sun01/23/24 at 0900 0829 (Given - Provider: Candy Yepez RN)2044 (Given - Provider: Lyric Angel RN) 0951 (Given - Provider: Lexis Araujo RN)2114 (Given - Provider: Daniella Huff RN) 08 (Given - Provider: Altagracia Pitts RN)2037 (Given - Provider: Daniella Huff RN) heparin injection 5,000 Units 5,000 Units, SubCUTAneous, Every 8 hours scheduled (3 times per day), First dose on Sun01/23/24 at 0600 0600 (Not Given - Provider: Stacia Latif RN - Reason: Other)1400 (Not Given - Provider: Candy Yepez RN - Reason: Patient/family refused)2225 (Given - Provider: Lyric Angel RN) 0637 (Given - Provider: Lyric Angel RN)1406 (Given - Provider: Lexis Araujo RN)2115 (Given - Provider: Daniella Huff, LINA) 0606 (Given - Provider: Daniella Huff RN)1416 (Given - Provider: Altagracia Pitts RN)2200 (Canceled Entry - Provider: Automatic Discharge Provider - Comment: Automatically canceled at discontinue of medication order) insulin glargine (Lantus) injection 7 Units 7 Units, SubCUTAneous, Nightly, First dose on Sun01/23/24 at 2100 2046 (Given - Provider: Lyric Angel RN) 2115 (Given - Provider: Daniella Huff, RN) 203 (Given - Provider: Daniella Huff RN) Insulin Lispro (Humalog) injection 0-18 Units(Linked Group 1) 0-18 Units, SubCUTAneous, 2 times daily with meals, First dose on Sun01/28/24 at 0800, High Dose Correction Algorithm Glucose: Dose: LESS than 139 No Insulin 140-199 3 Unit 200-249 6 Units 250-299 9 Units 300-349 12 Units 350-400 15 Units Above 400 18 Units 0828 (Given - Provider: Candy Yepez RN - Comment: glucose 188)1700 (Not Given - Provider: Candy Yepez RN - Reason: Patient/family refused) 0959 (Given - Provider: Lexis Araujo RN)1746 (Given - Provider: Lexis Araujo, LINA) 0800 (Not Given - Provider: Altagracia Pitts, RN - Reason: Order parameters not met)1726 (Given - Provider: Altagracia Pitts RN) Insulin Lispro (Humalog) injection 0-18 Units(Linked Group 1) 0-18 Units, SubCUTAneous, Nightly, First dose on Sun01/27/24 at 2130, If continuous tube feedings/TPN/NPO, give correction dose based on result, no reduction in dose. If eating or bolus tube feeding: High Dose Correction Algorithm Glucose: Dose: LESS than 139 No Insulin 140-199 3 Unit 200-249 6 Units 250-299 9 Units 300-349 12 Units 350-400 15 Units Above 400 18 Units 2044 (Given - Provider: Lyric Angel RN) 2210 (Given - Provider: Daniella Huff RN) 2047 (Given - Provider: Daniella Huff RN) ipratropium-albuterol (Duo-Neb) 0.5-2.5 mg/3 mL nebulizer solution 3 mL 3 mL, Nebulization, 2 times daily, First dose (after last modification) on Sun01/26/24 at 0800 0802 (Given - Provider: Hunter Morgan RCP)1999 (Canceled Entry - Provider: Automatic Discharge Provider - Comment: Automatically canceled at discontinue of medication order) 0849 (Given - Provider: Batsheva Vences RCP)1518 (Given - Provider: Batsheva Vences RCP) 0728 (Given - Provider: Mara Hedrick RCP)1539 (Given - Provider: Mara Hedrick RCP) iron sucrose (Venofer) 200 mg in sodium chloride 0.9 % 100 mL IVPB 200 mg, IntraVENous, at 300 mL/hr, Administer over 20 Minutes, Daily, First dose on Sun01/30/24 at 0600, For 5 doses, Observe for signs and symptoms of hypersensitivity and/or anaphylactic-type reactions per institutional standard during and following administration. 0608 (New Bag - Provider: Daniella Huff RN)0628 (Stopped - Provider: Daniella Huff RN) mirtazapine (Remeron) tablet 15 mg 15 mg, Oral, Nightly, First dose on Sun01/31/24 at 2100 mometasone-formoterol (Dulera 100) 100-5 MCG/ACT inhaler 2 puff 2 puff, Inhalation, 2 times daily, First dose on Sun01/24/24 at 2000, Rinse mouth with water after use to reduce aftertaste and incidence of candidiasis. Do not swallow. 0800 (Given - Provider: Candy Yepez RN)1999 (Canceled Entry - Provider: Automatic Discharge Provider - Comment: Automatically canceled at discontinue of medication order) 0953 (Given - Provider: Lexis Araujo RN)211 (Given - Provider: Daniella Huff RN) 132 (Given - Provider: Altagracia Pitts RN)1999 (Not Given - Provider: Daniella Huff RN - Reason: Patient/family refused) pantoprazole (ProtoNix) EC tablet 40 mg 40 mg, Oral, Daily before breakfast, First dose on Sun01/23/24 at 0600, Substituted for omeprazole (Prilosec). Do not crush, chew, or split. 0632 (Given - Provider: Stacia Latif RN) 0645 (Given - Provider: Lyric Angel RN) 06 (Given - Provider: Daniella Huff RN) predniSONE (Deltasone) tablet 40 mg (COMPLETED) 40 mg, Oral, Daily, First dose on Sun01/25/24 at 0900, For 4 doses 0829 (Given - Provider: Candy Yepez RN) sertraline (Zoloft) tablet 75 mg (CANCELED) 75 mg, Oral, Daily, First dose (after last modification) on Sun01/27/24 at 0900 0829 (Given - Provider: Candy Yepez RN) 0954 (Given - Provider: Lexis Araujo RN) 0817 (Given - Provider: Altagracia Pitts RN) tamsulosin (Flomax) 24 hr capsule 0.4 mg 0.4 mg, Oral, Daily, First dose on Sun01/23/24 at 0900, Do not crush, chew, or split. 0829 (Given - Provider: Candy Yepez RN) 0951 (Given - Provider: Lexis Araujo RN) 0817 (Given - Provider: Altagracia Pitts RN) tiotropium (Spiriva Respimat) 2.5 MCG/ACT inhaler 2 puff 2 puff, Inhalation, Daily, First dose on Josie 01/24/24 at 1615, Instruct to hold breath for 10 seconds after each inhalation. Before first use, prime inhaler by actuating until aerosal cloud is seen, then actuating 3 more times. 08 (Given - Provider: Candy Yepez, RN) 0954 (Given - Provider: Lexis Araujo, RN) 0817 (Given - Provider: Altagracia Pitts, RN) PRN Medication Order 01/28/2024 01/29/2024 01/30/2024 acetaminophen (Tylenol) tablet 650 mg 650 mg, Oral, Every 6 hours PRN, mild pain (1-3), Starting on Sun01/23/24 at 0621, Maximum dose of acetaminophen is 4000 mg from all sources in 24 hours. dextrose 5 % infusion 100 mL/hr, IntraVENous, PRN, Blood sugar less than 70mg/dL, Starting on Sun01/23/24 at 0436, Start infusion following administration of dextrose 50% or glucagon. dextrose 50 % solution 12.5 g 12.5 g, IntraVENous, PRN, low blood sugar, Blood glucose less than 70 mg/dL and patient NOT ALERT or NPO., Starting on Sun01/23/24 at 0436, If patient does not respond within 5 minutes, repeat dose x1. Start D5W at 100 mL/hour until ordering provider can be reached. Repeat blood glucose in 15 minutes. If blood glucose is less than 70 mg/dL, repeat treatment and recheck blood glucose in 15 minutes x2. If using Glucostabilizer, dose as instructed per system. glucagon (human recombinant) injection 1 mg 1 mg, IntraMUSCular, PRN, low blood sugar, Blood glucose less than 70 mg/dL and patient NOT ALERT or NPO and does not have IV access., Starting on Sun01/23/24 at 0436, After administration, attempt intravenous access and start D5W at 100 mL/hr. Repeat blood glucose in 15 minutes x2 and notify provider. glucose oral gel 15 g 15 g, Oral, As needed, low blood sugar, Starting on Sun01/23/24 at 0436, If blood glucose less than 50 mg/dL and patient ALERT and NOT NPO, give 2 tubes glucose gel. If blood glucose less than 70 mg/dL and patient ALERT and NOT NPO, give 1 tube glucose gel. Repeat blood glucose in 15 minutes. If blood glucose is less than 70 mg/dL, repeat treatment and recheck blood glucose in 15 minutes x2 and notify provider. heparin injection 1,900 Units 1,900 Units, IntraCATHeter, As needed, line care, Starting on Sun01/23/24 at 1646 1946 (Given - Provider: Chris Pacheco RN) 1310 (Given - Provider: Lisandra Crespo, RN) heparin injection 2,000 Units 2,000 Units, IntraCATHeter, As needed, line care, Starting on Sun01/23/24 at 1646 1946 (Given - Provider: Chris Pacheco RN) 1310 (Given - Provider: Lisandra Crespo, LINA) ipratropium-albuterol (Duo-Neb) 0.5-2.5 mg/3 mL nebulizer solution 3 mL 3 mL, Nebulization, 3 times daily PRN, wheezing, shortness of breath, Starting on Sun01/23/24 at 0436 melatonin tablet 3 mg 3 mg, Oral, Nightly PRN, sleep, Starting on Sun01/28/24 at 1521 2045 (Given - Provider: Lyric Angel, LINA) QUEtiapine (SEROquel) tablet 12.5 mg 12.5 mg, Oral, Every 8 hours PRN, agitation, Confusion, agitation, Starting on Sun01/25/24 at 1832 2045 (Given - Provider: Lyric Angel, LINA) 1747 (Given - Provider: Lexis Araujo RN) sodium chloride 0.9 % infusion 250 mL/hr, IntraVENous, Administer over 10 Minutes, As needed, For use in priming line prior to transfusion (prime via gravity) and flush line post transfusion, Starting on Sun01/28/24 at 0629, For 1 dose, For use in priming line prior to transfusion (prime via gravity) and flush line post transfusion ONLY. Discontinue once line has been cleared of remaining blood product. Linked Groups Order Group 1: Insulin Lispro (Humalog) injection 0-18 UnitsJump to med 0-18 Units, SubCUTAneous, 2 times daily with meals, First dose on Sun01/28/24 at 0800, High Dose Correction Algorithm Glucose: Dose: LESS than 139 No Insulin 140-199 3 Unit 200-249 6 Units 250-299 9 Units 300-349 12 Units 350-400 15 Units Above 400 18 Units And Insulin Lispro (Humalog) injection 0-18 UnitsJump to med 0-18 Units, SubCUTAneous, Nightly, First dose on Sun01/27/24 at 2130, If continuous tube feedings/TPN/NPO, give correction dose based on result, no reduction in dose. If eating or bolus tube feeding: High Dose Correction Algorithm Glucose: Dose: LESS than 139 No Insulin 140-199 3 Unit 200-249 6 Units 250-299 9 Units 300-349 12 Units 350-400 15 Units Above 400 18 Units Scheduled Medication Order 02/25/2024 02/26/2024 02/27/2024 amiodarone (Pacerone) tablet 200 mg 200 mg, Oral, Daily, First dose on Sun02/12/24 at 0900 1203 (Given - Provider: aKlyani Brar RN) 0847 (Given - Provider: Kalyani Brar RN) 0808 (Given - Provider: Dylan Seaman RN) aspirin chewable tablet 81 mg 81 mg, Oral, Daily, First dose on Sun02/12/24 at 0900 1203 (Given - Provider: Kalyani Brar RN) 0847 (Given - Provider: Kalyani Brar RN) 0808 (Given - Provider: Dylan Seaman, LINA) atorvastatin (Lipitor) tablet 80 mg 80 mg, Oral, Daily, First dose on Sun02/12/24 at 0900 1203 (Given - Provider: Kalyani Brar RN) 0847 (Given - Provider: Kalyani Brar RN) 0808 (Given - Provider: Dylan Seaman, LINA) carvedilol (Coreg) tablet 3.125 mg 3.125 mg, Oral, 2 times daily with meals, First dose on Sun02/12/24 at 0900, Hold for SBP <95 1203 (Given - Provider: Kalyani Brar RN)1749 (Given - Provider: Kalyani Brar RN) 0847 (Given - Provider: Kalyani Brar RN)1720 (Given - Provider: Kalyani Brar RN) 0808 (Given - Provider: Dylan Seaman RN)1700 (Canceled Entry - Provider: Automatic Discharge Provider - Comment: Automatically canceled at discontinue of medication order) collagenase 250 UNIT/GM ointment Topical, Daily, First dose on Sun02/14/24 at 1215, 1. Sternum NHSW (dehiscence) - Cleanse with NS, apply Santyl to wound bed, lightly pack with mesalt. Cover with foam dressing. Change Daily and PRN 1206 (Given - Provider: Kalyani Brar RN) 0848 (Given - Provider: Kalyani Brar RN) 0900 (Given - Provider: Dylan Seaman, LINA) gabapentin (Neurontin) capsule 100 mg 100 mg, Oral, 2 times daily, First dose on Sun02/12/24 at 0900 1203 (Given - Provider: Kalyani Brar RN)2015 (Given - Provider: Sonya Rocha RN) 0847 (Given - Provider: Kalyani Brar RN)2018 (Given - Provider: Cyndi Og RN) 0808 (Given - Provider: Dylan Seaman RN) heparin injection 5,000 Units 5,000 Units, SubCUTAneous, Every 8 hours scheduled (3 times per day), First dose on Sun02/12/24 at 1400 0600 (Not Given - Provider: Sonya Rocha RN - Reason: Patient/family refused)1400 (Not Given - Provider: Kalyani Brar RN - Reason: Patient/family refused)2200 (Not Given - Provider: Sonya Rocha RN - Reason: Patient/family refused) 0600 (Not Given - Provider: Sonya Rocha RN - Reason: Patient/family refused)1400 (Not Given - Provider: Divya Ambriz RN - Reason: Patient/family refused)2018 (Given - Provider: Cyndi Og RN) 0600 (Not Given - Provider: Cyndi Og RN - Reason: Patient/family refused)1305 (Given - Provider: Dylan Seaman RN) insulin glargine (Lantus) injection 7 Units 7 Units, SubCUTAneous, Nightly, First dose on Sun02/13/24 at 2100 2015 (Given - Provider: Sonya Rocha RN) 2017 (Given - Provider: Cyndi Og, RN) Insulin Lispro (Humalog) injection 0-6 Units(Linked Group 1) 0-6 Units, SubCUTAneous, 3 times daily with meals, First dose on Sun02/13/24 at 1930, Low Dose Correction Algorithm Glucose: Dose: LESS than 139 No Insulin 140-199 1 Unit 200-249 2 Units 250-299 3 Units 300-349 4 Units 350-400 5 Units Above 400 6 Units 0800 (Not Given - Provider: Kalyani Brar RN - Reason: Patient not available)1200 (Not Given - Provider: Kalyani Brar RN - Reason: Order parameters not met)1700 (Not Given - Provider: Kalyani Brar RN - Reason: Other - Comment: not eating) 0849 (Given - Provider: Kalyani Brar RN)1326 (Given - Provider: Divya Ambriz RN)1720 (Given - Provider: Kalyani Brar RN) 0800 (Not Given - Provider: Dylan Seaman RN - Reason: Patient/family refused)1200 (Not Given - Provider: Dylan Seaman RN - Reason: Order parameters not met)1700 (Canceled Entry - Provider: Automatic Discharge Provider - Comment: Automatically canceled at discontinue of medication order) Insulin Lispro (Humalog) injection 0-6 Units(Linked Group 1) 0-6 Units, SubCUTAneous, Nightly, First dose on Sun02/13/24 at 2100, If continuous tube feedings/TPN/NPO, give correction dose based on result, no reduction in dose. If eating or bolus tube feeding: Low Dose Correction Algorithm Glucose: Dose: LESS than 139 No Insulin 140-199 1 Unit 200-249 2 Units 250-299 3 Units 300-349 4 Units 350-400 5 Units Above 400 6 Units 2014 (Given - Provider: Sonya Rocha, LINA) 2017 (Given - Provider: Cyndi Og, LINA) Lidocaine 4 % patch 1 patch 1 patch, TransDERmal, Administer over 12 Hours, Daily, First dose on Sun02/20/24 at 1515, Apply patch to affected area. Patch may remain in place for up to 12 hours in any 24 hour period. 1204 (Medication Applied - Provider: Kalyani Brar RN) 0004 (Medication Removed - Provider: Sonya Rocha RN)0847 (Medication Applied - Provider: Kalyani Brar RN)2047 (Medication Removed - Provider: Cyndi Og, LINA) 0810 (Medication Applied - Provider: Dylan Seaman, LINA)1707 (Due: Medication Removed - Provider: Automatic Discharge Provider - Comment: Time automatically adjusted from order being discontinued) mirtazapine (Remeron) tablet 15 mg 15 mg, Oral, Nightly, First dose on Sun02/12/24 at 2100 2015 (Given - Provider: Sonya Rocha, LINA) 2019 (Given - Provider: Cyndi Og, LINA) pantoprazole (ProtoNix) EC tablet 40 mg 40 mg, Oral, Daily before breakfast, First dose on Sun02/13/24 at 0600, Do not crush, chew, or split. 1203 (Given - Provider: Kalyani Brar RN) 0606 (Given - Provider: Sonya Rocha RN) 0900 (Given - Provider: Dylan Seaman RN) sevelamer carbonate (Renvela) tablet 800 mg 800 mg, Oral, 3 times daily with meals, First dose on Sun02/12/24 at 1200, Do not crush, chew, or split. 0800 (Not Given - Provider: Kalyani Brar RN - Reason: Patient not available)1203 (Given - Provider: Kalyani Brar RN)1749 (Given - Provider: Kalyani Brar RN) 0847 (Given - Provider: Kalyani Brar RN)1326 (Given - Provider: Divya Ambriz RN)1720 (Given - Provider: Kalyani Brar RN) 0808 (Given - Provider: Dylan Seaman, LINA)1200 (Given - Provider: Dylan Seaman RN)1700 (Canceled Entry - Provider: Automatic Discharge Provider - Comment: Automatically canceled at discontinue of medication order) tiotropium (Spiriva Respimat) 2.5 MCG/ACT inhaler 2 puff 2 puff, Inhalation, Daily, First dose on Sun02/12/24 at 0900, Instruct to hold breath for 10 seconds after each inhalation. Before first use, prime inhaler by actuating until aerosal cloud is seen, then actuating 3 more times. 1204 (Given - Provider: Kalyani Brar, RN) 0850 (Given - Provider: Kalyani Brar, RN) 0810 (Given - Provider: Dylan Seaman RN) PRN Medication Order 02/25/2024 02/26/2024 02/27/2024 acetaminophen (Tylenol) suppository 650 mg(Linked Group 2) 650 mg, Rectal, Every 6 hours PRN, mild pain (1-3), fever, For temp greater than 100.4 F (38 C), Starting on Sun02/12/24 at 0859, Administer if oral route cannot be used. Maximum dose of acetaminophen is 4000 mg from all sources in 24 hours. acetaminophen (Tylenol) tablet 650 mg(Linked Group 2) 650 mg, Oral, Every 6 hours PRN, mild pain (1-3), fever, For temp greater than 100.4 F (38 C), Starting on Sun02/12/24 at 0859, Maximum dose of acetaminophen is 4000 mg from all sources in 24 hours. collagenase 250 UNIT/GM ointment Topical, PRN, soiled dressing, Starting on Sun02/14/24 at 1208, 1. Sternum NHSW (dehiscence) - Cleanse with NS, apply Santyl to wound bed, lightly pack with mesalt. Cover with foam dressing. Change Daily and PRN dextrose 5 % infusion 100 mL/hr, IntraVENous, PRN, Blood sugar less than 70mg/dL, Starting on Sun02/13/24 at 1920, Start infusion following administration of dextrose 50% or glucagon. dextrose 50 % solution 12.5 g 12.5 g, IntraVENous, PRN, low blood sugar, Blood glucose less than 70 mg/dL and patient NOT ALERT or NPO., Starting on Sun02/13/24 at 1920, If patient does not respond within 5 minutes, repeat dose x1. Start D5W at 100 mL/hour until ordering provider can be reached. Repeat blood glucose in 15 minutes. If blood glucose is less than 70 mg/dL, repeat treatment and recheck blood glucose in 15 minutes x2. If using Glucostabilizer, dose as instructed per system. glucagon (human recombinant) injection 1 mg 1 mg, IntraMUSCular, PRN, low blood sugar, Blood glucose less than 70 mg/dL and patient NOT ALERT or NPO and does not have IV access., Starting on Sun02/13/24 at 1920, After administration, attempt intravenous access and start D5W at 100 mL/hr. Repeat blood glucose in 15 minutes x2 and notify provider. glucose oral gel 15 g 15 g, Oral, As needed, low blood sugar, Starting on Sun02/13/24 at 1920, If blood glucose less than 50 mg/dL and patient ALERT and NOT NPO, give 2 tubes glucose gel. If blood glucose less than 70 mg/dL and patient ALERT and NOT NPO, give 1 tube glucose gel. Repeat blood glucose in 15 minutes. If blood glucose is less than 70 mg/dL, repeat treatment and recheck blood glucose in 15 minutes x2 and notify provider. heparin injection 1,200-2,000 Units 1,200-2,000 Units, IntraCATHeter, As needed, line care, For hemodialysis system down vascular catheter, Starting on Sun02/14/24 at 1056, To ARTERIAL lumen. Use when system down. Dose based on lumen volume: 1,200 units = 1.2 mL 1,400 units = 1.4 mL 1,500 units = 1.5 mL 1,600 units = 1.6 mL 1,700 units = 1.7 mL 1,800 units = 1.8 mL 2,000 units = 2 mL heparin injection 1,200-2,000 Units 1,200-2,000 Units, IntraCATHeter, As needed, line care, For hemodialysis system down vascular catheter, Starting on Sun02/14/24 at 1056, To VENOUS lumen. Use when system down. Dose based on lumen volume: 1,200 units = 1.2 mL 1,400 units = 1.4 mL 1,500 units = 1.5 mL 1,600 units = 1.6 mL 1,700 units = 1.7 mL 1,800 units = 1.8 mL 2,000 units = 2 mL heparin injection 1,900 Units 1,900 Units, IntraCATHeter, As needed, line care, Starting on Sun02/12/24 at 1306 1139 (Given - Provider: Victoriano Christy RN) 1133 (Given - Provider: Victoriano Christy RN) heparin injection 2,000 Units 2,000 Units, IntraCATHeter, As needed, line care, Starting on Sun02/12/24 at 1306 1139 (Given - Provider: Victoriano Christy, RN) 1133 (Given - Provider: Victoriano Christy RN) hydrALAZINE (Apresoline) injection 10 mg 10 mg, IntraVENous, Every 4 hours PRN, high blood pressure, SBP>180, Starting on Sun02/27/24 at 0849 ipratropium-albuterol (Duo-Neb) 0.5-2.5 mg/3 mL nebulizer solution 3 mL 3 mL, Nebulization, Every 6 hours PRN, wheezing, shortness of breath, Starting on Sun02/12/24 at 0859 LORazepam (Ativan) tablet 0.5 mg 0.5 mg, Oral, Every 6 hours PRN, anxiety, Starting on Sun02/25/24 at 1715 2016 (Given - Provider: Sonya Rocha RN) 2019 (Given - Provider: Cyndi Og RN) 1200 (Given - Provider: Dylan Seaman RN) melatonin tablet 3 mg 3 mg, Oral, Nightly PRN, sleep, Starting on Sun02/12/24 at 0859 2019 (Given - Provider: Cyndi Og, LINA) polyethylene glycol (PEG) 3350 (Miralax) packet 17 g 17 g, Oral, Daily PRN, constipation, Starting on Sun02/12/24 at 0859, 1st line for treatment of constipation - give scheduled if no bowel movement in past 24 hours. QUEtiapine (SEROquel) tablet 12.5 mg 12.5 mg, Oral, Every 8 hours PRN, Confusion, agitation, Starting on Sun02/12/24 at 0859 Linked Groups Order Group 1: Insulin Lispro (Humalog) injection 0-6 UnitsJump to med 0-6 Units, SubCUTAneous, 3 times daily with meals, First dose on Sun02/13/24 at 1930, Low Dose Correction Algorithm Glucose: Dose: LESS than 139 No Insulin 140- 199 1 Unit 200-249 2 Units 250-299 3 Units 300-349 4 Units 350-400 5 Units Above 400 6 Units And Insulin Lispro (Humalog) injection 0-6 UnitsJump to med 0-6 Units, SubCUTAneous, Nightly, First dose on Sun02/13/24 at 2100, If continuous tube feedings/TPN/NPO, give correction dose based on result, no reduction in dose. If eating or bolus tube feeding: Low Dose Correction Algorithm Glucose: Dose: LESS than 139 No Insulin 140-199 1 Unit 200-249 2 Units 250-299 3 Units 300-349 4 Units 350-400 5 Units Above 400 6 Units Group 2: acetaminophen (Tylenol) tablet 650 mgJump to med 650 mg, Oral, Every 6 hours PRN, mild pain (1-3), fever, For temp greater than 100.4 F (38 C), Starting on Sun02/12/24 at 0859, Maximum dose of acetaminophen is 4000 mg from all sources in 24 hours. Or acetaminophen (Tylenol) suppository 650 mgJump to med 650 mg, Rectal, Every 6 hours PRN, mild pain (1-3), fever, For temp greater than 100.4 F (38 C), Starting on Sun02/12/24 at 0859, Administer if oral route cannot be used. Maximum dose of acetaminophen is 4000 mg from all sources in 24 hours. Scheduled Medication Order 05/24/2024 05/25/2024 05/26/2024 carvedilol (Coreg) tablet 3.125 mg (COMPLETED) 3.125 mg, Oral, Once, On Sun05/26/24 at 0510, For 1 dose 0517 (Given - Provid er: Esme Sloan RN) oxyCODONE-acetaminophen (Percocet) 5-325 MG per tablet 1 tablet (COMPLETED) 1 tablet, Oral, Once, On Sun05/26/24 at 0405, For 1 dose, Maximum dose of acetaminophen is 4000 mg from all sources in 24 hours. 0406 (Given - Provid er: Esme Sloan, LINA) FOR RECORDS PERTAINING TO PATIENTS WHO ARE [...] BE BASED ON THE PRIMARY CLINICAL RECORDS. [facility]. provides no warranty or guarantee of the accuracy or completeness of information in this document.
[2025-06-24 08:10] LABS: Anion Gap 16 (5-15); BUN 60 mg/dL (4-19); BUN/Creat Ratio 10.3 RATIO (10-20); Calcium,Total 9.0 mg/dL (7.6-11.0); Carbon Dioxide 24.3 mmol/L (21.0-32.0); Chloride 97 mmol/L (98-108); Estimated Creatinine Clearance 9.25 ml/min (50-250); Glucose 127 mg/dL (70-99); Potassium 3.5 mmol/L (3.3-5.1)
[2025-06-24 08:21] LABS: Pro- Brain NATRIURETIC PEPTIDE 41657 pg/mL (<=1800)
[2025-06-24] MEDS: NIFEdipine 60 MG Tablet PO (08:38)
[2025-06-24] MEDS: NICARdipine 25 MG in 0.9% Normal Saline (250mL Bag) 240 ML 50 MG CONT INF (09:27)
--- NOTE | 2025-06-24 09:52 | PCM.HP.STD ---
[facility] - General General Date of Admission: 06/24/25 Date of Service: 06/24/25 Chief Complaint: SOB [facility] Narrative JOSE JOHN, is a 80-year-old male history of COPD, end-stage renal disease on dialysis, coronary artery disease with previous CABG, anxiety, hypertension who presented [facility] ED 06/24/2025 with dyspnea and cough. Reportedly was diagnosed with bronchitis last week with symptoms starting about 2 weeks ago. Frequent coughing fits but unable to get up sputum. Denies any fevers, chest pain, lower extremity edema. Did miss dialysis this a.m. due to symptoms. In the ED temp 97.7, blood pressure initially 228/105, respiratory rate 20 and pulse ox 94% on room air. CBC with white count of 12.4 and hemoglobin of 12.2. BMP with a normal bicarb, slightly elevated gap of 16 with a BUN of 60 and creatinine 5.81 but again was not dialyzed today. Glucose 127. Chest x-ray with cardiomegaly and increased intravascular markings consistent with CHF, additionally 5.5 cm masslike density in left midlung and trace bilateral pleural effusions. proBNP 41,657. Patient's blood pressure remained significantly elevated despite interventions so he was started on a Cardene drip and hospitalist contacted to admit to ICU. Nephrology also contacted for arrangements for dialysis. Patient evaluated at bedside. He reports history as above with cough over the past 2 weeks and then increasing respiratory distress since this morning with difficulty to the point that he came to the ED and cannot make it to his dialysis appointment. Reports he thinks he has phlegm in his chest but has not been able to cough anything up, does not think that the medicines that he has been given were helpful, has some chest soreness when he coughs. Denies any swelling in lower extremities but said he never has swelling lower extremities. Does still make good urine, no other new or acute complaints [facility] Medical History DVT (deep venous thrombosis) Dialysis patient Carotid artery bruit Coronary artery disease Cardiomyopathy CKD (chronic kidney disease) stage 4, GFR 15-29 ml/min ZOFIA (acute kidney injury) Anemia Inguinal hernia of right side without obstruction or gangrene Easy bruising Neuropathy Former smoker Heartburn Chronic renal insufficiency, stage III (moderate) Depression Black tarry stools Diarrhea Abdominal pain Hx TIA/stroke w/o resid Mini stroke Fatigue Hypertension L eye torn retina Pseudobulbar affect Anxiety disorder Macular degeneration Kidney stones Osteoarthritis Diabetes type 2, uncontrolled Home Medications ?Medication ?Instructions ?Recorded ?Last Taken ?Type carvedilol 6.25 mg tablet 6.25 mg PO BID 01/13/25 01/12/25 History lorazepam 0.5 mg tablet (Ativan) 0.5 mg PO TID PRN anxiety 3 days 01/13/25 Unknown Rx #9 tabs nifedipine 60 mg tablet,extended 60 mg PO DAILY 01/13/25 01/13/25 History release 24 hr aspirin 81 mg chewable tablet 1 tab PO DAILY 06/16/25 Unknown History doxycycline monohydrate 100 mg 100 mg PO BID #20 CAPSULES 06/16/25 Unknown Rx capsule prednisone 20 mg tablet 20 mg PO BID #10 tabs 06/16/25 Unknown Rx Allergy/AdvReac Type Severity Reaction Status Date / Time lisinopril Allergy Severe raspy Verified 06/24/25 06:59 voice and cough Penicillins Allergy Anaphylaxis Verified 06/24/25 06:59 Sulfa (Sulfonamide Allergy Anaphylaxis Verified 06/24/25 06:59 Antibiotics) levofloxacin (From Levaquin) AdvReac Upset Verified 06/24/25 06:59 Stomach Family History Mother Diabetes Heart disease Hypertension CVA (cerebral vascular accident) Sister CVA (cerebral vascular accident) Heart disease Other High cholesterol Surgical History History of open heart surgery S/P laparoscopic hernia repair Previous back surgery Hx laparoscopic cholecystectomy Social History household members: none housing: house current occupational status: retired Smoking Status: Former smoker alcohol intake: never substance use type: does not use caffeine: Yes what type of physical activity do you participate in: none frequency: does not exercise ROS ROS Narrative General: Denies fever/chills HENT: Denies headache, denies stuffy nose, denies sore throat EYES: Denies changes in vision Resp: Dry cough and increasing shortness of breath Cardiac: chest soreness with cough GI: Denies abdominal pain, denies changes in bowel, denies nausea/vomiting : Denies changes in urination Extremity: Denies swelling MSK: Denies focal weakness Neuro: Denies any numbness/tingling Heme: Did not voice any complaints Skin: Denies rashes Psychiatric: No complaints voiced Vital Signs Vital Signs Vital Signs: 06/24/25 06:59 06/24/25 07:03 06/24/25 07:03 Temperature 97.7 F L 97.7 F L Temperature Source Oral Oral Pulse Rate 100 100 Respiratory Rate 20 H 20 H Respiratory Effort Short of Breath Labored Respiratory Depth Shallow Respiratory Pattern Tachypnea Blood Pressure 228/105 H 228/105 H Blood Pressure Mean 146 146 Pulse Ox 94 94 Oxygen Delivery Method Room Air Room Air Room Air Oxygen Flow Rate (L/min) 06/24/25 07:17 06/24/25 07:58 06/24/25 08:01 Temperature Temperature Source Pulse Rate 90 94 Respiratory Rate 18 16 Respiratory Effort Respiratory Depth Respiratory Pattern Blood Pressure 209/95 H 209/95 H Blood Pressure Mean 133 133 Pulse Ox 96 94 Oxygen Delivery Method Nasal Cannula Nasal Cannula Oxygen Flow Rate (L/min) 1 1 06/24/25 08:03 06/24/25 08:30 06/24/25 08:41 Temperature 98 F Temperature Source Oral Pulse Rate 92 96 95 Respiratory Rate 18 19 H 21 H Respiratory Effort Respiratory Depth Respiratory Pattern Blood Pressure 209/95 H 211/108 H 193/150 H Blood Pressure Mean 133 136 160 Pulse Ox 98 92 95 Oxygen Delivery Method Nasal Cannula Oxygen Flow Rate (L/min) 1 06/24/25 08:45 06/24/25 08:57 06/24/25 09:00 Temperature 98 F Temperature Source Oral Pulse Rate 97 100 94 Respiratory Rate 21 H 27 H 20 H Respiratory Effort Respiratory Depth Respiratory Pattern Blood Pressure 213/108 H 203/175 H 186/110 H Blood Pressure Mean 135 185 135 Pulse Ox 94 96 94 Oxygen Delivery Method Nasal Cannula Oxygen Flow Rate (L/min) 1 06/24/25 09:00 06/24/25 09:07 06/24/25 09:27 Temperature Temperature Source Pulse Rate 95 92 86 Respiratory Rate 16 17 Respiratory Effort Respiratory Depth Respiratory Pattern Blood Pressure 146/130 H 186/110 H Blood Pressure Mean 136 135 Pulse Ox 95 94 Oxygen Delivery Method Oxygen Flow Rate (L/min) Weight Weight: 62.4 kg Body Mass Index (BMI) 19.7 Physical Exam Narrative General: Alert, oriented, appears to not feel well HEENT: Atraumatic, normocephalic Eyes: Anicteric, normal conjunctiva, extraocular movements grossly intact Neck: Supple Respiratory: Increased respiratory effort, tachypneic, diminished at the bases Cardiovascular: Regular rate and rhythm GI: Soft, nontender, nondistended Extremities: No edema Musculoskeletal: Moving all extremities Neuro: No overt focal neurological deficits Skin: No rashes appreciated Psych: Cooperative Results Lab / Micro Data 06/24/25 07:30 06/24/25 07:30 Labs: Laboratory Results - last 24 hr 06/24/25 07:30: WBC 12.4 H, RBC 4.00 L, Hgb 12.2 L, Hct 36.8 L, MCV 92.0, MCH 30.5, MCHC 33.2, RDW Std Deviation 46.8 H, RDW Coeff of Keith 13.8, Plt Count 277, MPV 10.0, Immature Gran % (Auto) 0.700, Neut % (Auto) 85.2 H, Lymph % (Auto) 7.8 L, [place] % (Auto) 5.7, Eos % (Auto) 0.4, Baso % (Auto) 0.2, Absolute Neuts (auto) 10.6 H, Absolute Lymphs (auto) 0.97, Nucleated RBC % 0, Sodium 138, Potassium 3.5, Chloride 97 L, Carbon Dioxide 24.3, Anion Gap 16 H, BUN 60 H, Creatinine 5.81 H, Estim Creat Clear Calc 9.25 L*, Est GFR (MDRD) Non-Af 9 L, BUN/Creatinine Ratio 10.3, Glucose 127 H, Calcium 9.0, [place] [address] H Rhythm Strip Rhythm Strip: Sinus Rhythm Rate: 100 Ectopy: PVC(s) Imaging Radiology Impression Chest X-Ray 06/24/25 07:40 IMPRESSION: There is cardiomegaly with increased central vascular markings and interstitial markings consistent with CHF. There is a 5.5 cm masslike density in the left midlung. Trace bilateral effusions are present. 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 secondary to hypertensive emergency -Pressure in the ED with systolic persistently in the 200s, patient short of breath with elevated proBNP (expected be elevated in end-stage renal disease, unfortunately no previous values but does fit clinical picture ) and chest x-ray appears edematous and to have effusions -Previous echo 11/2023 with an EF of 45% and stage I diastolic dysfunction with mild hypokinesis of apex and anterior wall - Patient started on Cardene drip and will be admitted to the ICU -nephrology already contacted by ED physician for dialysis -Will repeat echo -Daily weights, I's and O's - Will check TSH -Will give dose of Lasix given he still has good urine output, appreciate nephro recommendations - Unclear if his cough may be due to fluid overload and it is been slowly worsening over the past 2 weeks, is not producing phlegm, afebrile, plan for further CT evaluation, will check Pro-Edison to aid in antibiotic decision making given he does have white count of 12.4 #ESRD on HD -Consult nephrology -Renal diet -Daily weights, I's and O's #Hx of CAD -w/ previous CABG last November -Continue home medications once med rec available #?Density on CXR - Chest x-ray reported out 5.5 cm density, unclear significance - Likely CT scan once patient stabilized #DVT ppx: SCDs Soni Escudero MD Charges/Coding Visit Charges Inpatient E&M: 36698 Init Hosp L2
[2025-06-24 09:57] LABS: Troponin T High Sensitivity 73 ng/L (<=22)
[2025-06-24 10:43] LABS: Procalcitonin 0.12 ng/mL (<=0.10)
--- NOTE | 2025-06-24 10:50 | CASEMGMT ---
Care Management Face to Face with patient for initial transition planning/care coordination assessment in the ED. This law writer introduced self and role at [facility]. Patient alert and oriented. Patient willing to participate in assessment and is able to answer all questions appropriately. Care providers, pharmacy, and demographics verified. Admitting Diagnosis: Hypertensive emergency Other diagnosis history: COPD, end-stage renal disease on dialysis, coronary artery disease with previous CABG, anxiety, hypertension PCP: Lupe (appointment on 07/07/25) Specialists: Lydia. Senior It Project Manager in [place] Preferred Pharmacy: [facility] Insurance: Medicare A B (primary). [place] (secondary) Prescription Benefit: yes Living Will/HPOA: none on file. States it lists daughter Ashleigh and son Baljeet. Unsure that anyone can bring in during admission. LNOK: daughter Ashleigh and son Baljeet ( in November 2024 and mother in law 13 days later) Living Arrangements: lives alone in a ranch style home with 2 steps to enter. 7 steps down to the cellar which patient enters frequently. Independent with all ADLs/IADLs. Transportation: patient drives self, except to dialysis ([employer] drives patient to [facility] on MWF) DME: grab bars, wheelchair, walker, cane, Paulette 3 HHC: none SNF/Rehab: [facility] in [place] Community Resources: none Patient goals: Patient wishes to discharge home, denies need for home health care at this time. Patient denies any further needs or concerns at this time. Disposition Plan: admission to acute; RN CM/SW to follow for discharge planning needs that may arise. Stacia Forbes, AIRCRAFT PART ASSEMBLER, ONLINE JOURNALIST
--- NOTE | 2025-06-24 11:18 | ECHOCS_ITS ---
Reason For Study Reason For Study: CHF Procedure This was a 2D Doppler, Color Flow transthoracic echocardiogram. The study was technically difficult. Contrast injection was performed. Limited acoustic windows due to rib/lung shaddowing. Exam performed portable in ICU/CCU. Left Ventricle Normal LV size. The left ventricular ejection fraction is 40 %. There is mild global hypokinesis of the left ventricle. Right Ventricle Normal RV size. Normal systolic function. Atria Normal left atrium. Normal right atrium. Mitral Valve Normal mitral valve. Tricuspid Valve Normal tricuspid valve. Aortic Valve Trisinus/trileaflet aortic valve. Moderate focal aortic valve calcification. Pulmonic Valve Normal pulmonic valve. Great Vessels Normal aortic root. The pulmonary artery is normal size. Inferior vena cava collapse with respiration. Pericardium/Pleural No pericardial effusion. Medication Diluted definity 2ml given slow IV push to enhance endocardial definition. MMode/2D Measurements & Calculations LVIDd: 4.5 cm IVSd: 1.1 cm LVOT diam: 2.0 cm LVIDs: 3.4 cm LVPWd: 1.1 cm RVDd: 3.8 cm FS: 23.9 % LVOT area: 3.0 cm2 LAV(MOD-bp): 37.6 ml LVAd ap4: 38.2 cm2 LVAd ap2: 32.8 cm2 LAV(MOD-bp) Indexed: 21.5 ml/m2 LVLd ap4: 8.9 cm LVLd ap2: 8.2 cm LAV(MOD-sp2): 44.4 ml EDV(MOD-sp4): 140.3 ml EDV(MOD-sp2): 108.4 ml LAV(MOD-sp4): 30.7 ml EDV(sp4-el): 140.1 ml EDV(sp2-el): 111.0 ml LVAs ap4: 26.5 cm2 LVAs ap2: 24.0 cm2 LVLs ap4: 7.3 cm LVLs ap2: 7.1 cm ESV(MOD-sp4): 80.9 ml ESV(MOD-sp2): 69.7 ml ESV(sp4-el): 81.9 ml ESV(sp2-el): 69.0 ml EF(MOD-sp4): 42.4 % EF(MOD-sp2): 35.7 % EF(sp4-el): 41.5 % SV(MOD-sp4): 59.5 ml SV(MOD-sp2): 38.7 ml SV(sp4-el): 58.2 ml SI(MOD-sp4): 34.0 ml/m2 SI(MOD-sp2): 22.1 ml/m2 Ao sinus diam: 3.2 cm LA A4 area: 12.9 cm2 LA dimension(2D): 3.2 cm TAPSE: 1.5 cm RA A4 area: 13.2 cm2 Time Measurements MV dec time: 0.20 sec Doppler Measurements & Calculations MV E max jesus: 110.6 cm/sec Lat Peak E' Jesus: 7.7 cm/sec Med Peak E' Jesus: 6.0 cm/sec MV A max jesus: 108.9 cm/sec E/E' lat: 14.4 E/E' med: 18.5 MV E/A: 1.0 MV dec slope: 554.8 cm/sec2 Ao V2 max: 122.0 cm/sec LV V1 max: 92.9 cm/sec Ao max P.0 mmHg LV V1 max P.5 mmHg Ao V2 mean: 93.1 cm/sec LV V1 mean P.2 mmHg Ao mean P.3 mmHg LV V1 mean: 72.8 cm/sec Ao V2 VTI: 24.8 cm LV V1 VTI: 18.4 cm AV (velocity ratio): 0.74 YUVAL(I,D): 2.2 cm2 YUVAL(V,D): 2.3 cm2 SV(LVOT): 55.5 ml PA V2 max: 103.3 cm/sec TR max jesus: 150.2 cm/sec TR max P.0 mmHg ECHO/Echo Complete W/ Contrast Interpretation Summary The left ventricular ejection fraction is 40 %. Normal LV size. There is mild global hypokinesis of the left ventricle. Moderate focal aortic valve calcification. The study was technically limited. The study was technically difficult. Ordering Physician: Soni Escudero Performed By: Yaritza Metz RDCS
--- NOTE | 2025-06-24 11:24 | CON.PCM.RE_ITS ---
Assessment & Plan Assessment/Plan (1) ESRD (end stage renal disease) on dialysis: (2) Hypertensive emergency: (3) Acute on chronic combined systolic and diastolic congestive heart failure: PLAN: Plan This is a pleasant 80-year-old male with past medical history significant for ESRD on hemodialysis Sunday, compliant with dialysis, last dialyzed Sunday. Patient typically does not have fluid gains during dialysis, patient's weights have been staying about the same, he still has good urine output and essentially runs even to less than 500 mL liter fluid removal with each HD session. Outpatient EDW around 60 kg. We will attempt fluid removal with dialysis today as patient/blood pressure tolerates. Expect to see blood pressures improve with dialysis/fluid removal, he is also on Cardene drip. Patient was given dose of Lasix. Echo ordered, echo from November 2023 EF 45%, stage I diastolic dysfunction. Further orders forthcoming as hospitalization evolves, thank you for allowing us to participate in the care of Mr. John. Assessment and plan reviewed Dr. Allen. HPI Consult Data Date of Consult: 06/24/25 HPI Narrative HPI Narrative: JOSE JOHN, is a 80 M who presented to the emergency room early this morning via squad with complaints of shortness of breath and congestion. Initial blood pressure in the emergency room 228/105, chest x-ray with increased intravascular markings consistent with CHF, 5.5 cm masslike density in left midlung, trace bilateral pleural effusions. Patient was started on Cardene drip and admitted to ICU. Nephrology consulted as patient has history of ESRD, for dialysis management. Patient last dialyzed [facility]. Patient is compliant with dialysis. He typically does not have large fluid gains during dialysis sessions as he still has good urine output. Patient denies any recent chest pain, fevers or chills. [facility] Medical History DVT (deep venous thrombosis) Dialysis patient Carotid artery bruit Coronary artery disease Cardiomyopathy CKD (chronic kidney disease) stage 4, GFR 15-29 ml/min ZOFIA (acute kidney injury) Anemia Inguinal hernia of right side without obstruction or gangrene Easy bruising Neuropathy Former smoker Heartburn Chronic renal insufficiency, stage III (moderate) Depression Black tarry stools Diarrhea Abdominal pain Hx TIA/stroke w/o resid Mini stroke Fatigue Hypertension L eye torn retina Pseudobulbar affect Anxiety disorder Macular degeneration Kidney stones Osteoarthritis Diabetes type 2, uncontrolled Home Medications ?Medication ?Instructions ?Recorded ?Last Taken ?Type carvedilol 6.25 mg tablet 6.25 mg PO BID bp 01/13/25 0 01/12/25 History lorazepam 0.5 mg tablet (Ativan) 0.5 mg PO TID PRN anx iety 3 days 01/13/25 Unknown Rx #9 tabs nifedipine 60 mg tablet,extended 60 mg PO DAILY anxiet y 01/13/25 01/13/25 History release 24 hr aspirin 81 mg chewable tablet 1 tab PO DAILY bp Unknown History Allergy/AdvReac Type Severity Reaction Status Date / Time lisinopril Allergy Severe raspy Verified 06/24/25 06:59 voice and cough Penicillins Allergy Anaphylaxis Verified 06/24/25 06:59 Sulfa (Sulfonamide Allergy Anaphylaxis Verified 06/24/25 06:59 Antibiotics) levofloxacin (From LevaqNallatech) AdvReac Upset Verified 06/24/25 06:59 Stomach Family History Mother Diabetes Heart disease Hypertension CVA (cerebral vascular accident) Sister CVA (cerebral vascular accident) Heart disease Other High cholesterol Surgical History History of open heart surgery S/P laparoscopic hernia repair Previous back surgery Hx laparoscopic cholecystectomy Social History household members: none housing: house current occupational status: retired Smoking Status: Former smoker alcohol intake: never substance use type: does not use caffeine: Yes what type of physical activity do you participate in: none frequency: does not exercise ROS ROS Narrative As in HPI otherwise negative Physical Exam Narrative Alert and oriented x 3, no apparent distress S1, S2, RRR Diminished breath sounds Abdomen soft, nontender No edema Tunneled hemodialysis catheter dressing clean, dry and intact Lab / Micro Data 06/24/25 07:30 06/24/25 07:30 Labs: Laboratory Results - last 24 hr 06/24/25 07:30: WBC 12.4 H, RBC 4.00 L, Hgb 12.2 L, Hct 36.8 L, MCV 92.0, MCH 30.5, MCHC 33.2, RDW Std Deviation 46.8 H, RDW Coeff of Keith 13.8, Plt Count 277, MPV 10.0, Immature Gran % (Auto) 0.700, Neut % (Auto) 85.2 H, Lymph % (Auto) 7.8 L, [place] % (Auto) 5.7, Eos % (Auto) 0.4, Baso % (Auto) 0.2, Absolute Neuts (auto) 10.6 H, Absolute Lymphs (auto) 0.97, Nucleated RBC % 0, Sodium 138, Potassium 3.5, Chloride 97 L, Carbon Dioxide 24.3, Anion Gap 16 H, BUN 60 H, Creatinine 5.81 H, Estim Creat Clear Calc 9.25 L*, Est GFR (MDRD) Non-Af 9 L, BUN/Creatinine Ratio 10.3, Glucose 127 H, Calcium 9.0, [place] [address] H, P rocalcitonin 0.12 H 06/24/25 09:07: Troponin T High Sens 73 H* D Rhythm Strip Rhythm Strip: Sinus Rhythm Rate: 100 Ectopy: PVC(s) Imaging Radiology Impression Chest X-Ray 06/24/25 07:40 IMPRESSION: There is cardiomegaly with increased central vascular markings and interstitial markings consistent with CHF. There is a 5.5 cm masslike density in the left midlung. Trace bilateral effusions are present. Reading [facility]
[2025-06-24] MEDS: 0.9% Normal Saline 1,000 ML IV.SOLN. 1000 ML OPERA.SITE (12:37)
[2025-06-24] MEDS: PureFlow B 3K Dialysis Soln 1 BAG 6 BAG PF (12:37)
[2025-06-24 13:37] LABS: Troponin T High Sens 2 HR 60 ng/L (<=22)
[2025-06-24 15:30] LABS: Troponin T High Sens 4 HR 57 ng/L (<=22)
[2025-06-24] MEDS: NICARdipine 25 MG in 0.9% Normal Saline (250mL Bag) 240 ML CONT INF (17:40)
[2025-06-24] MEDS: SEVELAMER CARBONATE 800 MG TABLET PO (17:41)
[2025-06-24] MEDS: 0.9% Saline Lock 10 ML Syringe IV (21:22)
[2025-06-25] VITALS (15 sets, daily range): BP systolic 110–146; BP diastolic 59–77; PULSE 57–81; RESP 12–22; TEMP 36.5–36.7; O2SAT 92–96; BMI 18.5
[2025-06-25] MEDS: MELATONIN 10 MG TABLET PO (00:19)
[2025-06-25 05:24] LABS: Hematocrit 31.2 % (40-54); Hemoglobin 10.4 g/dL (13.0-16.5); Immature Granulocytes Count 0.040 X10^3/uL (0.0-0.0); Mean Corp Hgb Conc 33.3 g/dL (32-36); Mean Corpuscular Volume 92.3 fL (80-94); Mean Platelet Vol. 10.0 fl (6.2-12.0); NRBC Flagged by Analyzer 0 % (0-5); Platelet Count 218 K/mm3 (150-450); RBC Distribution Width CV 14.3 % (11.6-14.6); RBC Distribution Width SD 48.2 fl (35.1-43.9); Red Blood Count 3.38 M/mm3 (4.6-6.2); White Blood Count 9.7 K/mm3 (4.4-11.0)
[2025-06-25 06:09] LABS: Anion Gap 12 (5-15); BUN 56 mg/dL (4-19); BUN/Creat Ratio 11.0 RATIO (10-20); Calcium,Total 8.6 mg/dL (7.6-11.0); Carbon Dioxide 24.7 mmol/L (21.0-32.0); Chloride 100 mmol/L (98-108); Estimated Creatinine Clearance 9.86 ml/min (50-250); Glucose 125 mg/dL (70-99); Potassium 4.1 mmol/L (3.3-5.1)
[2025-06-25] MEDS: NIFEdipine 60 MG Tablet PO (08:29)
[2025-06-25] MEDS: SEVELAMER CARBONATE 800 MG TABLET PO ×3 (08:29→16:57)
--- NOTE | 2025-06-25 09:44 | CASEMGMT ---
Addendum entered by Gary Baxter 06/26/25 12:26: Pt reports that [facility] has already notified him of the schedule change. Pt denies further questions or concerns at this time. Original Note: TC to notify Yessica Powell of the patient's admission. Ezequielsenlaura states that they are already aware. Yessica states that with the Holiday coming up, the patient's HD schedule is tentatively Sunday (06/28), Sunday (06/30), and Sunday (07/03). CM to continue to follow.
--- NOTE | 2025-06-25 10:10 | PCM.PN.REN ---
Subjective Subjective Patient resting flat in bed. On room air. States breathing is better. No complaints. No overnight events. Objective Data Objective Data Vital Signs: Vital Signs Temp Pulse Resp BP Pulse Ox O2 Del Method O2 Flow Rate 97.8 F 70 16 133/60 H 95 Room Air 97 06/25/25 09:00 06/25/25 09:00 06/25/25 09:00 06/25/25 09:00 06/25/25 09:00 06/25/25 09:00 06/25/25 04:00 Oxygen Flow Rate (L/min) 97 Oxygen Delivery Method Room Air Weight: 58.6 kg Body Mass Index (BMI) 18.5 Intake & Output: Intake and Output for Last 24 Hours 06/23/25 06/24/25 06/25/25 23:59 23:59 23:59 Intake Total 870.41 / 870.41 Output Total 1430 / 1430 100 / 100 Balance -559.59 / -559.59 -100 / -100 Lab / Micro Data 06/25/25 05:10 06/25/25 05:10 Labs: Laboratory Results - last 24 hr 06/24/25 07:30: Procalcitonin 0.12 H 06/24/25 11:29: POC Glucose 140 H 06/24/25 12:30: Troponin T Hi Sens 2 Hr 60 H* 06/24/25 14:35: Troponin T Hi Sens 4Hr 57 H* 06/25/25 05:10: WBC 9.7, RBC 3.38 L, Hgb 10.4 L, Hct 31.2 L, MCV 92.3, MCH 30.8, MCHC 33.3, RDW Std Deviation 48.2 H, RDW Coeff of Keith 14.3, Plt Count 218, MPV 10.0, Immature Gran % (Auto) 0.400, Neut % (Auto) 79.4 H, Lymph % (Auto) 9.8 L, [place] % (Auto) 10.1 H, Eos % (Auto) 0.2, Baso % (Auto) 0.1, Absolute Neuts (auto) 7.7, Absolute Lymphs (auto) 0.95, Nucleated RBC % 0, Sodium 137, Potassium 4.1, Chloride 100, Carbon Dioxide 24.7, Anion Gap 12, BUN 56 H, Creatinine 5.12 H, Estim Creat Clear Calc 9.86 L*, Est GFR (MDRD) Non-Af 11 L, BUN/Creatinine Ratio 11.0, Glucose 125 H, Calcium 8.6, TSH 0.851 Radiography Diagnostic Testing: Radiology Impression Echocardiogram 06/24/25 11:18 Interpretation Summary The left ventricular ejection fraction is 40 %. Normal LV size. There is mild global hypokinesis of the left ventricle. Moderate focal aortic valve calcification. The study was technically limited. The study was technically difficult. Ordering Physician: Soni Escudero Performed By: Yaritza Metz RDCS Rhythm Strip Rhythm Strip: Sinus Rhythm Rate: 100 Ectopy: PVC(s) Physical Exam Narrative Alert and oriented x 3, no apparent distress S1, S2, RRR Lung sounds clear. On room air Abdomen soft, nontender No edema Tunneled hemodialysis catheter dressing clean, dry and intact Assessment & Plan Assessment/Plan (1) ESRD (end stage renal disease) on dialysis: (2) Hypertensive emergency: (3) Acute on chronic combined systolic and diastolic congestive heart failure: PLAN: Plan This is a pleasant 80-year-old male with past medical history significant for ESRD on hemodialysis Sunday, compliant with dialysis, last dialyzed Sunday. Patient typically does not have fluid gains during dialysis, patient's weights have been staying about the same, he still has good urine output and essentially runs even to less than 500 mL liter fluid removal with each HD session. Outpatient EDW around 60 kg. We will attempt fluid removal with dialysis today as patient/blood pressure tolerates. Expect to see blood pressures improve with dialysis/fluid removal, he is also on Cardene drip. Patient was given dose of Lasix. Echo ordered, echo from November 2023 EF 45%, stage I diastolic dysfunction. 06/25/2025; patient underwent hemodialysis yesterday and tolerated around 1 L fluid removal. Breathing has improved, he is on room air. Blood pressures much improved, off Cardene drip and currently on carvedilol 12.5 mg twice daily and nifedipine 60 mg daily. Echo: EF 40%, mild global hypokinesis of left ventricle, moderate focal aortic valve calcification. No acute indication for LEAD SYSTEMS ARCHITECT today. Will plan for next hemodialysis treatment tomorrow. Assessment and plan reviewed Dr. Allen.
--- NOTE | 2025-06-25 13:21 | CT_ITS ---
PROCEDURE: CHEST WITHOUT CONTRAST 06/25/2025 REASON FOR EXAM: RECURRENT SOB AND CP TECHNIQUE: Chest CT without contrast. Coronal and Sagittal reconstruction series were provided. One or more dose reduction techniques were used (e.g., Automated exposure control, adjustment of the mA and/or kV according to patient size, use of iterative reconstruction technique RADIATION DOSE SUMMARY: CTDlvol: 8.36 mGy DLP: 330.14 mGycm COMPARISON: Prior chest radiograph done earlier in the day. FINDINGS: Hardware: A left-sided double-lumen catheter is seen with the tip in the superior vena cava. Lymph nodes: Calcified precarinal lymph nodes. Calcified right hilar lymph nodes. Heart and Vasculature: Mild cardiomegaly. Atherosclerotic calcifications of the thoracic aorta. Thoracic aorta and pulmonary arteries have normal contours; noncontrast technique limits evaluation. Coronary Artery Calcifications: Present. Prior midline sternotomy. Lungs and Airways: Bilateral pleural effusions right greater than left with the consolidation in the right lower lobe abutting the right major fissure. Small amount of fluid is seen in the left major fissure most likely corresponding to the abnormality seen on the chest radiograph. Pleura: Bilateral effusions right greater than left as described. Upper Abdomen: Extensive atherosclerotic calcification of the aorta and the major visceral branches. Atrophy of the left kidney. Calcified splenic granulomas. Bones: Degenerative changes of the thoracic spine. Increased kyphosis. CT/Chest without Contrast IMPRESSION: Coronary artery calcification (CAC) is is present Bilateral pleural effusions right greater than left with consolidation in the r ight lower lobe and left basilar atelectasis. Fluid is seen in the major fissures bilaterally. Coronary artery calcification. Calcified subcarinal and right hilar lymph nodes. Reading Location: [id number]
--- NOTE | 2025-06-25 14:54 | PN.HOSP_ITS ---
Reason for Visit Chief Complaint: SOB Subjective Subjective Pt reported to me this AM that he was feeling better, starting to breathe easier, however later he reported to nursing he was having some increased shortness of breath again and was inquiring about the bronchitis that he had. Objective Data Objective Data Vital Signs: Vital Signs Temp Pulse Resp BP Pulse Ox O2 Del Method O2 Flow Rate 98.0 F 60 15 110/64 95 Room Air 97 06/25/25 14:00 06/25/25 14:00 06/25/25 14:00 06/25/25 14:00 06/25/25 14:00 06/25/25 14:28 06/25/25 04:00 Oxygen Flow Rate (L/min) 97 Oxygen Delivery Method Room Air Weight: 58.6 kg Body Mass Index (BMI) 18.5 Intake & Output: Intake and Output for Last 24 Hours 06/23/25 06/24/25 06/25/25 23:59 23:59 23:59 Intake Total 870.41 / 870.41 0 / 0 Output Total 1430 / 1430 300 / 300 Balance -559.59 / -559.59 -300 / -300 Lab / Micro Data 06/25/25 05:10 06/25/25 05:10 Labs: Laboratory Results - last 24 hr 06/24/25 14:35: Troponin T Hi Sens 4Hr 57 H* 06/25/25 05:10: WBC 9.7, RBC 3.38 L, Hgb 10.4 L, Hct 31.2 L, MCV 92.3, MCH 30.8, MCHC 33.3, RDW Std Deviation 48.2 H, RDW Coeff of Keith 14.3, Plt Count 218, MPV 10.0, Immature Gran % (Auto) 0.400, Neut % (Auto) 79.4 H, Lymph % (Auto) 9.8 L, [place] % (Auto) 10.1 H, Eos % (Auto) 0.2, Baso % (Auto) 0.1, Absolute Neuts (auto) 7.7, Absolute Lymphs (auto) 0.95, Nucleated RBC % 0, Sodium 137, Potassium 4.1, Chloride 100, Carbon Dioxide 24.7, Anion Gap 12, BUN 56 H, Creatinine 5.12 H, E stim Creat Clear Calc 9.86 L*, Est GFR (MDRD) Non-Af 11 L, BUN/Creatinine Ratio 11.0, Glucose 125 H, Calcium 8.6, TSH 0.851 Radiography Diagnostic Testing: Radiology Impression Echocardiogram 06/24/25 11:18 Interpretation Summary The left ventricular ejection fraction is 40 %. Normal LV size. There is mild global hypokinesis of the left ventricle. Moderate focal aortic valve calcification. The study was technically limited. The study was technically difficult. Ordering Physician: Soni Escudero Performed By: Yaritza Metz, [facility] Chest CT 06/25/25 13:21 IMPRESSION: Coronary artery calcification (CAC) is is present Bilateral pleural effusions right greater than left with consolidation in the right lower lobe and left basilar atelectasis. Fluid is seen in the major fissures bilaterally. Coronary artery calcification. Calcified subcarinal and right hilar lymph nodes. Reading Location: [facility] Rhythm Strip Rhythm Strip: Sinus Rhythm Rate: 100 Ectopy: PVC(s) Physical Exam Narrative General: Alert, oriented, no apparent distress HEENT: Atraumatic, normocephalic Eyes: Anicteric, normal conjunctiva, extraocular movements grossly intact Neck: Supple Respiratory: No with normal respiratory effort, dull bases Cardiovascular: Regular rate GI: Soft, nontender, nondistended Extremities: No edema Musculoskeletal: Moving all extremities Neuro: No overt focal neurological deficits Skin: No rashes appreciated Psych: Cooperative Assessment & Plan Assessment/Plan (1) Hypertensive emergency: (2) Pneumonia: PLAN: Plan # Acute exacerbation of chronic combined heart failure secondary to hypertensive emergency -Pressure in the ED with systolic persistently in the 200s, patient short of breath with elevated proBNP (expected be elevated in end-stage renal disease, unfortunately no previous values but does fit clinical picture ) and chest x-ray appears edematous and to have effusions -Previous echo 11/2023 with an EF of 45% and stage I diastolic dysfunction with mild hypokinesis of apex and anterior wall - Patient started on Cardene drip and will be admitted to the ICU -nephrology already contacted by ED physician for dialysis -Will repeat echo -Daily weights, I's and O's - Will check TSH -Will give dose of Lasix given he still has good urine output, appreciate nephro recommendations - Unclear if his cough may be due to fluid overload and it is been slowly worsening over the past 2 weeks, is not producing phlegm, afebrile, plan for further CT evaluation, will check Pro-Edison to aid in antibiotic decision making given he does have white count of 12.4 -06/24: Repeat echo with EF of 40% and mild global hypokinesis of left ventricle. Patient off Cardene drip after dialysis, home medications have been resumed and blood pressure improving, no longer needs ICU level of care. Still has effusions and some increased shortness of breath, will give another dose of Lasix, possible DC home tomorrow pending clinical/volume status # Pneumonia -06/25: Present on admission. Patient initially presented to the ED 06/16/2025 with shortness of breath, subjective fever, and cough with yellow phlegm for 6 days, the time is felt to be asthmatic bronchitis given the questionable history of COPD and patient was given prednisone and Doxy. On representation suspected patient was short of breath from the fluid overload and prednisone was stopped and doxycycline was not continued. Today patient reports feeling like he has more phlegm in his chest and short of breath, did have some relief with DuoNebs which have now been scheduled. CT chest obtained given abnormal chest x-ray questioning a mass in the right lung however CT of the chest showed bilateral pleural effusions right greater than left with right lower lobe consolidation. Query if patient had a viral illness that progressed to bacterial pneumonia. Will start patient on abx coverage. Was covered for atypicals without improvement, covering with merrem d/t pt allergies. Sputum culture if able, will check viral respiratory panels, urine antigens, Mucinex and incentive spirometry #ESRD on HD -Consult nephrology -Renal diet -Daily weights, I's and O's -06/25: Patient had 1 L removed yesterday and usually runs even on dialysis, patient for HD again tomorrow #Hx of CAD -w/ previous CABG last November -Continue home medications once med rec available -06/25: Echo with EF of 40% and mild global hypokinesis, continue home medications #?Density on CXR - Chest x-ray reported out 5.5 cm density, unclear significance - Likely CT scan once patient stabilized -06/25: Chest CT showed bilateral pleural effusions right greater than left with consolidation right lower lobe and left basilar atelectasis with fluid seen in major fissures bilaterally. Patient to be treated for pneumonia as above and given additional IV Lasix #DVT ppx: SCDs Soni Escudero MD Charges/Coding Visit Charges Inpatient E&M: 11098 Subs Hosp L2
[2025-06-25] MEDS: 0.9% Saline Lock 10 ML Syringe IV (16:14)
[2025-06-25] MEDS: Meropenem 1 GM in 0.9% Normal Saline (100mL MB+) 100 ML IV (16:57)
[2025-06-25 17:20] LABS: Magnesium 2.2 mg/dL (1.5-2.2)
[2025-06-26] VITALS (26 sets, daily range): BP systolic 115–181; BP diastolic 64–94; PULSE 60–77; RESP 13–20; TEMP 35.2–36.8; O2SAT 93–99; BMI 18.7
[2025-06-26 03:43] LABS: Hematocrit 35.9 % (40-54); Hemoglobin 11.9 g/dL (13.0-16.5); Immature Granulocytes Count 0.060 X10^3/uL (0.0-0.0); Mean Corp Hgb Conc 33.1 g/dL (32-36); Mean Corpuscular Volume 91.8 fL (80-94); Mean Platelet Vol. 9.8 fl (6.2-12.0); NRBC Flagged by Analyzer 0 % (0-5); Platelet Count 221 K/mm3 (150-450); RBC Distribution Width CV 14.5 % (11.6-14.6); RBC Distribution Width SD 48.7 fl (35.1-43.9); Red Blood Count 3.91 M/mm3 (4.6-6.2); White Blood Count 9.8 K/mm3 (4.4-11.0)
[2025-06-26 04:13] LABS: Anion Gap 14 (5-15); BUN 80 mg/dL (4-19); BUN/Creat Ratio 12.4 RATIO (10-20); Calcium,Total 8.5 mg/dL (7.6-11.0); Carbon Dioxide 22.3 mmol/L (21.0-32.0); Chloride 99 mmol/L (98-108); Estimated Creatinine Clearance 7.86 ml/min (50-250); Glucose 116 mg/dL (70-99); Potassium 3.9 mmol/L (3.3-5.1)
[2025-06-26] MEDS: SEVELAMER CARBONATE 800 MG TABLET PO ×3 (08:06→17:15)
[2025-06-26] MEDS: NIFEdipine 60 MG Tablet PO (08:07)
[2025-06-26] MEDS: 0.9% Normal Saline 1,000 ML IV.SOLN. 1000 ML OPERA.SITE (08:44)
[2025-06-26] MEDS: PureFlow B 3K Dialysis Soln 1 BAG 6 BAG PF (08:44)
[2025-06-26] MEDS: 0.9% Saline Lock 10 ML Syringe IV ×3 (08:45→12:59)
--- NOTE | 2025-06-26 11:25 | PN.RENAL_ITS ---
Subjective Subjective Seen on dialysis today Objective Data Objective Data Vital Signs: Vital Signs Temp Pulse Resp BP Pulse Ox O2 Del Method O2 Flow Rate 97.9 F 71 14 175/94 H 97 Room Air 97 06/26/25 08:32 06/26/25 11:00 06/26/25 08:32 06/26/25 11:00 06/26/25 08:32 06/26/25 08:32 06/25/25 04:00 Oxygen Flow Rate (L/min) 97 Oxygen Delivery Method Room Air Weight: 63.5 kg Body Mass Index (BMI) 20.0 Intake & Output: Intake and Output for Last 24 Hours 06/24/25 06/25/25 06/26/25 23:59 23:59 23:59 Intake Total 870.41 / 870.41 340 / 340 Output Total 1430 / 1430 600 / 700 675 / 675 Balance -559.59 / -559.59 -260 / -360 -675 / -675 Lab / Micro Data 06/26/25 03:34 06/26/25 03:34 Labs: Laboratory Results - last 24 hr 06/25/25 16:00: Magnesium 2.2 06/25/25 21:47: POC Glucose 122 H 06/26/25 03:34: WBC 9.8, RBC 3.91 L, Hgb 11.9 L, Hct 35.9 L, MCV 91.8, MCH 30.4, MCHC 33.1, RDW Std Deviation 48.7 H, RDW Coeff of Keith 14.5, Plt Count 221, MPV 9.8, Immature Gran % (Auto) 0.600, Neut % (Auto) 72.6 H, Lymph % (Auto) 14.7 L, [place] % (Auto) 9.4, Eos % (Auto) 2.5, Baso % (Auto) 0.2, Absolute Neuts (auto) 7.1, Absolute Lymphs (auto) 1.44, Nucleated RBC % 0, Sodium 135, Potassium 3.9, Chloride 99, Carbon Dioxide 22.3, Anion Gap 14, BUN 80 H, Creatinine 6.42 H, E stim Creat Clear Calc 7.86 L*, Est GFR (MDRD) Non-Af 8 L, BUN/Creatinine Ratio 12.4, Glucose 116 H, Calcium 8.5 Micro: Microbiology 06/25/25 15:35 Mucosa - Nasopharyngeal Coronavirus COVID-19 PCR - Final 06/25/25 15:35 Mucosa - Nasopharyngeal Respiratory Panel (PCR) - Final 06/25/25 17:00 Urine Catheter - [place] Legionella Antigen - Final 06/25/25 17:00 Urine Catheter - [place] Streptococcus pneumoniae Antigen (M - Final Radiography Diagnostic Testing: Radiology Impression Chest CT 06/25/25 13:21 IMPRESSION: Coronary artery calcification (CAC) is is present Bilateral pleural effusions right greater than left with consolidation in the right lower lobe and left basilar atelectasis. Fluid is seen in the major fissures bilaterally. Coronary artery calcification. Calcified subcarinal and right hilar lymph nodes. Reading Location: [id number] Rhythm Strip Rhythm Strip: Sinus Rhythm Rate: 100 Ectopy: PVC(s) Physical Exam Narrative Alert and oriented x 3, no apparent distress S1, S2, RRR Lung sounds clear. On room air Abdomen soft, nontender No edema Tunneled hemodialysis catheter dressing clean, dry and intact Assessment & Plan Assessment/Plan (1) ESRD (end stage renal disease) on dialysis: (2) Hypertensive emergency: (3) Acute on chronic combined systolic and diastolic congestive heart failure: PLAN: Plan This is a pleasant 80-year-old male with past medical history significant for ESRD on hemodialysis Sunday, compliant with dialysis, last dialyzed Sunday. Patient typically does not have fluid gains during dialysis, patient's weights have been staying about the same, he still has good urine output and essentially runs even to less than 500 mL liter fluid removal with each HD session. Outpatient EDW around 60 kg. We will attempt fluid removal with dialysis today as patient/blood pressure tolerates. Expect to see blood pressures improve with dialysis/fluid removal, he is also on Cardene drip. Patient was given dose of Lasix. Echo ordered, echo from November 2023 EF 45%, stage I diastolic dysfunction. 06/25/2025; patient underwent hemodialysis yesterday and tolerated around 1 L fluid removal. Breathing has improved, he is on room air. Blood pressures much improved, off Cardene drip and currently on carvedilol 12.5 mg twice daily and nifedipine 60 mg daily. Echo: EF 40%, mild global hypokinesis of left ventricle, moderate focal aortic valve calcification. No acute indication for OUTSIDE RIGGER today. Will plan for next hemodialysis treatment tomorrow. Assessment and plan reviewed Dr. Allen. 06/26/2025. Seen on dialysis today. Blood pressure is okay. Saturating well on room air. No peripheral edema. As outpatient fluid removal was limited due to lack of weight gain and severe cramping with fluid removal. We have adjusted his medications for hypertension and he was doing okay. CT chest shows pleural effusions, pretty decent amount. We discussed about fluid removal, he is agreeable. Start with 2 L today. Will also have to challenge dry weight as outpatient. Discussed with staff bedside
--- NOTE | 2025-06-26 13:20 | NURSING ---
1300 Pt [address] halls.
--- NOTE | 2025-06-26 16:49 | CASEMGMT ---
Social Work- SW met with pt to verify directives and discuss grief and the multiple losses pt has experienced this year with the passing of pt and MIL. Pt reports that he and Deepti were for 55 years and raised two children. PT was caregiver for and MIL, who lived with them. 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 Pt reports that he has felt sad regarding the loss of , but does not feel stuck in his sadness, denies feeling SI, and feeling depressed. Pt reports that he has a huge support [place] between EMS, complaint operator department, confucianism, [facility] radio, neighbors, and friends. Pt reports that he has a prayer [place] that he meets with regularly. Pt denies the need of support groups or counseling, reporting that he has lived a great life and he is not the kind of person to make a mountain out of a mole hill. Pt shared stories and expressed future-oriented thought patterns. Pt reports that he has plans for 3 Thanksgiving dinners with friends and family and reports that [place] will be similar with multiple invitations already extended to him. Pt denies any home-going needs at this time. SW remains available to follow. MIKE Jorge
--- NOTE | 2025-06-26 17:07 | PN.HOSP_ITS ---
Reason for Visit Chief Complaint: SOB Subjective Subjective Evaluated patient at bedside, shortness of breath slowly improving, discussed CT findings, patient presently on dialysis and is going to have more fluid removed Objective Data Objective Data Vital Signs: Vital Signs Temp Pulse Resp BP Pulse Ox O2 Del Method O2 Flow Rate 97.5 F L 68 18 146/68 H 95 Room Air 97 06/26/25 13:30 06/26/25 15:00 06/26/25 13:30 06/26/25 15:30 06/26/25 13:30 06/26/25 13:30 06/25/25 04:00 Oxygen Flow Rate (L/min) 97 Oxygen Delivery Method Room Air Weight: 59.3 kg Body Mass Index (BMI) 18.7 Intake & Output: Intake and Output for Last 24 Hours 06/24/25 06/25/25 06/26/25 23:59 23:59 23:59 Intake Total 870.41 / 870.41 340 / 340 120 / 120 Output Total 1430 / 1430 600 / 700 3115 / 3115 Balance -559.59 / -559.59 -260 / -360 -2995 / -2995 Lab / Micro Data 06/26/25 03:34 06/26/25 03:34 Labs: Laboratory Results - last 24 hr 06/25/25 16:00: Magnesium 2.2 06/25/25 21:47: POC Glucose 122 H 06/26/25 03:34: WBC 9.8, RBC 3.91 L, Hgb 11.9 L, Hct 35.9 L, MCV 91.8, MCH 30.4, MCHC 33.1, RDW Std Deviation 48.7 H, RDW Coeff of Keith 14.5, Plt Count 221, MPV 9.8, Immature Gran % (Auto) 0.600, Neut % (Auto) 72.6 H, Lymph % (Auto) 14.7 L, [place] % (Auto) 9.4, Eos % (Auto) 2.5, Baso % (Auto) 0.2, Absolute Neuts (auto) 7.1, Absolute Lymphs (auto) 1.44, Nucleated RBC % 0, Sodium 135, Potassium 3.9, Chloride 99, Carbon Dioxide 22.3, Anion Gap 14, BUN 80 H, Creatinine 6.42 H, E stim Creat Clear Calc 7.86 L*, Est GFR (MDRD) Non-Af 8 L, BUN/Creatinine Ratio 12.4, Glucose 116 H, Calcium 8.5 Micro: Microbiology 06/25/25 15:35 Mucosa - Nasopharyngeal Coronavirus COVID-19 PCR - Final 06/25/25 15:35 Mucosa - Nasopharyngeal Respiratory Panel (PCR) - Final 06/25/25 17:00 Urine Catheter - [place] Legionella Antigen - Final 06/25/25 17:00 Urine Catheter - [place] Streptococcus pneumoniae Antigen (M - Final Rhythm Strip Rhythm Strip: Sinus Rhythm Rate: 100 Ectopy: PVC(s) Physical Exam Narrative General: Alert, oriented, no apparent distress HEENT: Atraumatic, normocephalic Eyes: Anicteric, normal conjunctiva, extraocular movements grossly intact Neck: Supple Respiratory: No with normal respiratory effort, still dull at the bases Cardiovascular: Regular rate GI: Soft, nontender, nondistended Extremities: No edema Musculoskeletal: Moving all extremities Neuro: No overt focal neurological deficits Skin: No rashes appreciated Psych: Cooperative Assessment & Plan Assessment/Plan (1) Hypertensive emergency: (2) Pneumonia: PLAN: Plan # Acute exacerbation of chronic combined heart failure secondary to hypertensive emergency -Pressure in the ED with systolic persistently in the 200s, patient short of breath with elevated proBNP (expected be elevated in end-stage renal disease, unfortunately no previous values but does fit clinical picture ) and chest x-ray appears edematous and to have effusions -Previous echo 11/2023 with an EF of 45% and stage I diastolic dysfunction with mild hypokinesis of apex and anterior wall - Patient started on Cardene drip and will be admitted to the ICU -nephrology already contacted by ED physician for dialysis -Will repeat echo -Daily weights, I's and O's - Will check TSH -Will give dose of Lasix given he still has good urine output, appreciate nephro recommendations - Unclear if his cough may be due to fluid overload and it is been slowly worsening over the past 2 weeks, is not producing phlegm, afebrile, plan for further CT evaluation, will check Pro-Edison to aid in antibiotic decision making given he does have white count of 12.4 -06/17: Repeat echo with EF of 40% and mild global hypokinesis of left ventricle. Patient off Cardene drip after dialysis, home medications have been resumed and blood pressure improving, no longer needs ICU level of care. Still has effusions and some increased shortness of breath, will give another dose of Lasix, possible DC home tomorrow pending clinical/volume status -06/26: Patient received another dose of Lasix yesterday and had dialysis today with fluid removal given effusions, will assess how he is doing tomorrow and possible plans for discharge as he approaches euvolemia # Pneumonia -06/25: Present on admission. Patient initially presented to the ED 06/16/2025 with shortness of breath, subjective fever, and cough with yellow phlegm for 6 days, the time is felt to be asthmatic bronchitis given the questionable history of COPD and patient was given prednisone and Doxy. On representation suspected patient was short of breath from the fluid overload and prednisone was stopped and doxycycline was not continued. Today patient reports feeling like he has more phlegm in his chest and short of breath, did have some relief with DuoNebs which have now been scheduled. CT chest obtained given abnormal chest x-ray questioning a mass in the right lung however CT of the chest showed bilateral pleural effusions right greater than left with right lower lobe consolidation. Query if patient had a viral illness that progressed to bacterial pneumonia. Will start patient on abx coverage. Was covered for atypicals without improvement, covering with merrem d/t pt allergies. Sputum culture if able, will check viral respiratory panels, urine antigens, Mucinex and incentive spirometry -06/26: Viral swabs negative, urine antigens negative, if able to get sputum culture can send, presently treating empirically #ESRD on HD -Consult nephrology -Renal diet -Daily weights, I's and O's -06/25: Patient had 1 L removed yesterday and usually runs even on dialysis, patient for HD again tomorrow -06/26: Dialysis today, further fluid removal Chronic medical problems and/or problems not being actively addressed during today's encounter: #Hx of CAD -w/ previous CABG last November - with EF of 40% and mild global hypokinesis, continue home medications #DVT ppx: SCDs Soni Escudero MD Charges/Coding Visit Charges Inpatient E&M: 38699 Subs Hosp L2
[2025-06-26] MEDS: Meropenem 1 GM in 0.9% Normal Saline (100mL MB+) 100 ML IV (20:56)
[2025-06-27 04:00] VITALS: BP 154/80; PULSE 73; RESP 19; TEMP 36.7; O2SAT 96
[2025-06-27 04:36] LABS: Hematocrit 35.8 % (40-54); Hemoglobin 11.9 g/dL (13.0-16.5); Immature Granulocytes Count 0.050 X10^3/uL (0.0-0.0); Mean Corp Hgb Conc 33.2 g/dL (32-36); Mean Corpuscular Volume 91.6 fL (80-94); Mean Platelet Vol. 9.9 fl (6.2-12.0); NRBC Flagged by Analyzer 0 % (0-5); Platelet Count 201 K/mm3 (150-450); RBC Distribution Width CV 14.5 % (11.6-14.6); RBC Distribution Width SD 49.1 fl (35.1-43.9); Red Blood Count 3.91 M/mm3 (4.6-6.2); White Blood Count 11.6 K/mm3 (4.4-11.0)
[2025-06-27 04:57] LABS: Anion Gap 11 (5-15); BUN 62 mg/dL (4-19); BUN/Creat Ratio 12.2 RATIO (10-20); Calcium,Total 8.6 mg/dL (7.6-11.0); Carbon Dioxide 23.4 mmol/L (21.0-32.0); Chloride 103 mmol/L (98-108); Estimated Creatinine Clearance 9.95 ml/min (50-250); Glucose 118 mg/dL (70-99); Potassium 3.8 mmol/L (3.3-5.1)
[2025-06-27 06:00] VITALS: BMI 18.9
[2025-06-27] MEDS: 0.9% Saline Lock 10 ML Syringe IV (06:15)
[2025-06-27 07:02] VITALS: PULSE 72; RESP 16; O2SAT 95
[2025-06-27] MEDS: SEVELAMER CARBONATE 800 MG TABLET PO ×2 (08:23→12:36)
[2025-06-27] MEDS: NIFEdipine 60 MG Tablet PO (08:27)
[2025-06-27 08:42] VITALS: BP 174/80; PULSE 76; RESP 19; TEMP 37.1; O2SAT 97
[2025-06-27 13:02] VITALS: PULSE 69; RESP 18
--- NOTE | 2025-06-27 13:43 | PCM.DC ---
Discharge Instructions DC O2, CPAP, BIPAP needs Home O2 Discharge instructions: No Dressing / Incision Discharge Activity: - (Increase activity as tolerated) Follow Up Care Test Results: Test results from this visit will be discussed in further detail at your follow-up appointment, if applicable. Discharge Plan Admission Admit Date/Time: 06/24/25 09:53 Primary Reason for Your Visit: Shortness of breath Attending Provider: Soni Escudero Primary Care Provider: Kalyani Andrade Consulting Providers: Jakob Allen Instructions Patient Instructions: ED Pneumonia (Adult) Additional Instructions / Restrictions: DISCHARGE INSTRUCTIONS PLEASE READ *Please take this with you to your next doctors appointment* -You will be discharged with cefdinir for your pneumonia you will have 3 doses and you will take 1 dose after your next 3 dialysis sessions -A prescription for an albuterol inhaler also sent to your preferred pharmacy on file -Continue to follow with nephrology/undergo dialysis as scheduled -Weigh yourself every day. A sudden weight gain can mean you are retaining fluid. Weigh yourself at the same time of day and in the same kind of clothes. Ideally, weigh yourself first thing in the morning after you empty your bladder, but before you eat breakfast. -Please call your physician if your weight goes up by more than 2 pounds in 1 day or 5 pounds in 1 week. This can be a sign that you are retaining more fluid than you should be. -You will continue your other home medications -Please call your primary care provider's office upon discharge to schedule a hospital follow up within 1 week. -For any concerning signs or symptoms please call 911 or proceed to the nearest emergency department Discharge Orders/Prescriptions Prescriptions: New cefdinir 300 mg capsule See Rx Instructions .ROUTE .COMPLEX Qty: 3 0RF Rx Instructions: Take a dose after dialysis for three doses albuterol sulfate 90 mcg/actuation HFA aerosol inhaler See Rx Instructions .ROUTE .COMPLEX PRN (Reason: shortness of breath or wheezing) Qty: 8.5 0RF Rx Instructions: 1-2 puffs every 4-6 hours as needed for shortness of breath or wheezing Continued aspirin 81 mg tablet,chewable 1 tab PO DAILY Patient Comments: States he does not take daily as should be carvedilol 12.5 mg tablet 12.5 mg PO BID mirtazapine 15 mg tablet 15 mg PO QHS atorvastatin 80 mg tablet 80 mg PO DAILY Patient Comments: Supposed to be taking but states hasn't started it yet. sevelamer carbonate 800 mg tablet 800 mg PO TID lorazepam [Ativan] 0.5 mg tablet 0.5 mg PO QHS PRN PRN (Reason: anxiety) nifedipine 60 mg tablet extended release 24hr 60 mg PO DAILY Referrals / Follow Up: Kalyani Andrade, [employer] COORDINATOR[facility] [Primary Care Provider, Family Practice] - Within 1 Week Disposition Disposition (needs filled in before D/C Order can be placed): Home, Self Care
--- NOTE | 2025-06-27 14:15 | PCM.DC.SUM ---
Providers Date of Admission: 06/24/25 Date of Discharge: 06/28/25 Primary Care Physician: Kalyani Andrade, ACE Consultations 06/24/25 11:18 Consult: Nephrology Routine Consulting Provider: Jakob Allen Reason for Consult: esrd on HD, missed HD today, htn emergency EMERGENT Consult: No MD Notified: Yes Date Notified: 06/24/25 Time Notified: 09:59 Method of Notification: ED Physician Initiated Reason For Visit: HYPERTENSIVE EMERGENCY Diagnosis Discharge Diagnosis (1) Hypertensive emergency: Status: Acute Code(s): I16.1 - Hypertensive emergency (2) Pneumonia: Status: Acute Code(s): J18.9 - Pneumonia, unspecified organism Plan # Acute exacerbation of chronic combined heart failure secondary to hypertensive emergency # Pneumonia #ESRD on HD #Hx of CAD Medications at Discharge Home Medications nifedipine 60 mg tablet,extended release 24 hr 60 mg PO DAILY anxiety 01/13/25 aspirin 81 mg chewable tablet 1 tab PO DAILY bp 06/16/25 atorvastatin 80 mg tablet 80 mg PO DAILY cholesterol 06/24/25 carvedilol 12.5 mg tablet 12.5 mg PO BID blood pressure 06/24/25 lorazepam 0.5 mg tablet (Ativan) 0.5 mg PO QHS PRN PRN anxiety 06/24/25 mirtazapine 15 mg tablet 15 mg PO QHS mood 06/24/25 sevelamer carbonate 800 mg tablet 800 mg PO TID kidneys 06/24/25 albuterol sulfate 90 mcg/actuation aerosol inhaler See Rx Instructions .Route .COMPLEX PRN shortness of breath or wheezing #8.5 grams 06/27/25 cefdinir 300 mg capsule See Rx Instructions .Route .COMPLEX #3 caps 06/27/25 Hospital Course Summary of Care Provided Minutes Spent on Discharge: 33 Hospital Course: JOSE JOHN, is a 80-year-old male history of COPD, end-stage renal disease on dialysis, coronary artery disease with previous CABG, anxiety, hypertension who presented [facility] ED 06/24/2025 with dyspnea and cough. Reportedly was diagnosed with bronchitis last week with symptoms starting about 2 weeks ago. Frequent coughing fits but unable to get up sputum. Did miss dialysis on the morning of presentation due to symptoms. In the ED temp 97.7, blood pressure initially 228/105, respiratory rate 20 and pulse ox 94% on room air. CBC with white count of 12.4 and hemoglobin of 12.2. BMP with a normal bicarb, slightly elevated gap of 16 with a BUN of 60 and creatinine 5.81 but again was not dialyzed . Glucose 127. Chest x-ray with cardiomegaly and increased intravascular markings consistent with CHF, additionally 5.5 cm masslike density in left midlung and trace bilateral pleural effusions. proBNP 41,657. Patient's blood pressure remained significantly elevated despite interventions so he was started on a Cardene drip and hospitalist contacted to admit to ICU. Nephrology also contacted for arrangements for dialysis. Patient's blood pressure improved significantly with dialysis and Cardene drip and he was able to be transitioned off. Suspect the prednisone patient was placed on for his bronchitis may have led to fluid retention and elevated blood pressure each making the other worse resulting in patient's hypertensive emergency and fluid overload. He did have echo which showed EF of 40% with mild global hypokinesis of left ventricle. He required fluid being taken off by dialysis x 2 despite usually running even. Despite improvement in volume status he continued to have shortness of breath and cough which he reported was productive. CT chest obtained which showed bilateral effusions right greater than left with right lower lobe consolidation and patient was started on antibiotic coverage. He progressively improved and was vitally stable on room air, comfortable with going home and had no new or acute complaints. Discharge instructions as follows: -You will be discharged with cefdinir for your pneumonia you will have 3 doses and you will take 1 dose after your next 3 dialysis sessions -A prescription for an albuterol inhaler also sent to your preferred pharmacy on file -Continue to follow with nephrology/undergo dialysis as scheduled -Weigh yourself every day. A sudden weight gain can mean you are retaining fluid. Weigh yourself at the same time of day and in the same kind of clothes. Ideally, weigh yourself first thing in the morning after you empty your bladder, but before you eat breakfast. -Please call your physician if your weight goes up by more than 2 pounds in 1 day or 5 pounds in 1 week. This can be a sign that you are retaining more fluid than you should be. -You will continue your other home medications -Please call your primary care provider's office upon discharge to schedule a hospital follow up within 1 week. -For any concerning signs or symptoms please call 911 or proceed to the nearest emergency department Physical Exam Narrative General: Alert, oriented, no apparent distress HEENT: Atraumatic, normocephalic Eyes: Anicteric, normal conjunctiva, extraocular movements grossly intact Neck: Supple Respiratory: normal respiratory effort, still dull at the bases but significantly improved aeration, no wheezes Cardiovascular: Regular rate GI: Soft, nontender, nondistended Extremities: No edema Musculoskeletal: Moving all extremities Neuro: No overt focal neurological deficits Skin: No rashes appreciated Psych: Cooperative Weight / BMI Weight Weight: 60 kg Body Mass Index (BMI) 18.9 ABG / Lab / Microbiology Data 06/27/25 04:29 06/27/25 04:29 Laboratory: Laboratory Results - last 24 hr 06/27/25 04:29: WBC 11.6 H, RBC 3.91 L, Hgb 11.9 L, Hct 35.8 L, MCV 91.6, MCH 30.4, MCHC 33.2, RDW Std Deviation 49.1 H, RDW Coeff of Keith 14.5, Plt Count 201, MPV 9.9, Immature Gran % (Auto) 0.400, Neut % (Auto) 79.7 H, Lymph % (Auto) 8.2 L, [place] % (Auto) 9.1, Eos % (Auto) 2.3, Baso % (Auto) 0.3, Absolute Neuts (auto) 9.3 H, Absolute Lymphs (auto) 0.95, Nucleated RBC % 0, Sodium 138, Potassium 3.8, Chloride 103, Carbon Dioxide 23.4, Anion Gap 11, BUN 62 H, Creatinine 5.13 H, Estim Creat Clear Calc 9.95 L*, Est GFR (MDRD) Non-Af 11 L, BUN/Creatinine Ratio 12.2, Glucose 118 H, Calcium 8.6 Microbiology: Microbiology 06/25/25 15:35 Mucosa - Nasopharyngeal Coronavirus COVID-19 PCR - Final 06/25/25 15:35 Mucosa - Nasopharyngeal Respiratory Panel (PCR) - Final 06/25/25 17:00 Urine Catheter - [place] Legionella Antigen - Final 06/25/25 17:00 Urine Catheter - [place] Streptococcus pneumoniae Antigen (M - Final D/C Instructions DC O2, CPAP, BIPAP Needs Home O2 Discharge instructions: No Meaningful Use Info Meaningful Use Meaningful Use Diagnoses (Choose all that apply): CHF CHF ABRAM/ARB ordered at discharge?: No Reason ABRAM/ARB not ordered?: Worsening renal dysfunctn Documented LVEF (%): 40 Discharge Plan Admission Admit Date/Time: 06/24/25 09:53 Primary Reason for Your Visit: Shortness of breath Attending Provider: Soni Escudero Primary Care Provider: Kalyani Andrade Consulting Providers: Jakob Allen Instructions Patient Instructions: ED Pneumonia (Adult) Additional Instructions / Restrictions: DISCHARGE INSTRUCTIONS PLEASE READ *Please take this with you to your next doctors appointment* -You will be discharged with cefdinir for your pneumonia you will have 3 doses and you will take 1 dose after your next 3 dialysis sessions -A prescription for an albuterol inhaler also sent to your preferred pharmacy on file -Continue to follow with nephrology/undergo dialysis as scheduled -Weigh yourself every day. A sudden weight gain can mean you are retaining fluid. Weigh yourself at the same time of day and in the same kind of clothes. Ideally, weigh yourself first thing in the morning after you empty your bladder, but before you eat breakfast. -Please call your physician if your weight goes up by more than 2 pounds in 1 day or 5 pounds in 1 week. This can be a sign that you are retaining more fluid than you should be. -You will continue your other home medications -Please call your primary care provider's office upon discharge to schedule a hospital follow up within 1 week. -For any concerning signs or symptoms please call 911 or proceed to the nearest emergency department Discharge Orders/Prescriptions Prescriptions: New cefdinir 300 mg capsule See Rx Instructions .ROUTE .COMPLEX Qty: 3 0RF Rx Instructions: Take a dose after dialysis for three doses albuterol sulfate 90 mcg/actuation HFA aerosol inhaler See Rx Instructions .ROUTE .COMPLEX PRN (Reason: shortness of breath or wheezing) Qty: 8.5 0RF Rx Instructions: 1-2 puffs every 4-6 hours as needed for shortness of breath or wheezing Continued aspirin 81 mg tablet,chewable 1 tab PO DAILY Patient Comments: States he does not take daily as should be carvedilol 12.5 mg tablet 12.5 mg PO BID mirtazapine 15 mg tablet 15 mg PO QHS atorvastatin 80 mg tablet 80 mg PO DAILY Patient Comments: Supposed to be taking but states hasn't started it yet. sevelamer carbonate 800 mg tablet 800 mg PO TID lorazepam [Ativan] 0.5 mg tablet 0.5 mg PO QHS PRN PRN (Reason: anxiety) nifedipine 60 mg tablet extended release 24hr 60 mg PO DAILY Referrals / Follow Up: Kalyani Andrade, APPLIANCE COUNSELOR-C [Primary Care Provider, Family Practice] - Within 1 Week Disposition Disposition (needs filled in before D/C Order can be placed): Home, Self Care Charges/Coding Visit Charges Inpatient E&M: 39106 Disch Hosp >30min
== END 2025-06-27 15:53 | disposition home or self-care (01) | DRG 291 ==
LOC: ED 10:22 → ICU 10:27 → PCU 06-27 10:44
PROVIDERS: Admitting Provider Internal Medicine; Emergency Provider Emergency Medicine; PCP Nurse Practitioner Family; Visit Provider Internal Medicine
DX: I13.2 Hypertensive heart and chronic kidney disease with heart failure and with stage 5 chronic kidney disease, or end stage renal disease (principal); N18.6 End stage renal disease; J18.9 Pneumonia, unspecified organism; I50.43 Acute on chronic combined systolic (congestive) and diastolic (congestive) heart failure; J44.0 Chronic obstructive pulmonary disease with (acute) lower respiratory infection; J90 Pleural effusion, not elsewhere classified; I16.1 Hypertensive emergency; E11.22 Type 2 diabetes mellitus with diabetic chronic kidney disease; I34.0 Nonrheumatic mitral (valve) insufficiency; I16.0 Hypertensive urgency; E11.40 Type 2 diabetes mellitus with diabetic neuropathy, unspecified; Z99.2 Dependence on renal dialysis; I25.10 Atherosclerotic heart disease of native coronary artery without angina pectoris; F41.9 Anxiety disorder, unspecified; J98.4 Other disorders of lung; Z95.1 Presence of aortocoronary bypass graft; Z87.891 Personal history of nicotine dependence; Z79.899 Other long term (current) drug therapy; Z86.718 Personal history of other venous thrombosis and embolism; Z79.82 Long term (current) use of aspirin; I49.3 Ventricular premature depolarization; Z86.73 Personal history of transient ischemic attack (TIA), and cerebral infarction without residual deficits; Z90.49 Acquired absence of other specified parts of digestive tract
CPT/HCPCS: 71046; 71250; 80048; 82962; 83735; 83880; 84145; 84443; 84484; 85025; 87449; 87633; 87635; 90937; 93005; 93306; 94640; 94668; 94762; 99285; J2185; Q9957; A4216; C8929; G0257; J1938